=== PATIENT | female | born 1950 | race Caucasian/White ===

== ENCOUNTER 2023-02-16 09:28 | Outpatient (OUT) | payer MEDICARE, SELFPAY ==
--- NOTE | 2023-02-16 10:11 | XR_ITS ---
[address] [address] Patient Name: CHEY RON MRN: [facility]:[id number] date: 1950 Sex: F Assigned Patient Location: LAB Current Patient Location: LAB Accession/Order Number: [id number] Exam Date: 02/16/2023 10:16 Report Date: 02/16/2023 11:07 At the request of: SHAIKH MALGORZATA Procedure: XR lumbar spine 2-3V EXAM: XR lumbar spine 2-3V HISTORY: Low Back Pain M54.50 COMPARISON: None. TECHNIQUE: 3 views Findings/impression: Status post posterior fusion of L3-L5 with disc spacers. Intact hardware. Maintained vertebral body heights. Disc disease of L2-L3. No acute fracture or subluxation. Nonobstructive bowel gas pattern. Electronically authenticated by: TRUONG PARIS Date: 02/16/2023 11:07
[2023-02-16 10:26] LABS: Basophils Absolute Auto 0.1 10^3/uL (0.0-0.1); Basophils Percent Auto 0.5 % (0.2-2.0); Eosinophils Absolute Auto 0.2 10^3/uL (0.0-0.7); Eosinophils Percent Auto 1.9 % (0.9-7.0); Hemoglobin 14.6 g/dL (12.0-16.0); Immature Granulocytes Abs Auto 0.08 10^3/uL (0.00-0.03); Immature Granulocytes Pct Auto 0.9 % (0.0-0.5); Lymphocytes Absolute Auto 3.3 10^3/uL (1.2-3.8); Lymphocytes Percent Auto 35.6 % (20.5-60.0); Mean Corpuscular Hemoglobin 30.4 pg (26.7-34.0); Mean Corpuscular Volume 89.6 fL (81.0-99.0); Monocytes Absolute Auto 0.5 10^3/uL (0.3-0.8); Monocytes Percent Auto 5.8 % (1.7-12.0); Neutrophils Absolute Auto 5.2 10^3/uL (1.4-6.5); Neutrophils Percent Auto 55.3 % (43.0-75.0); Platelet Count 225 10^3/uL (150-450); Red Cell Distribution Width 14.3 % (11.0-15.0); White Blood Count 9.3 10^3/uL (4.0-11.0)
[2023-02-16 10:32] LABS: Creatinine Urine Random 106.85 mg/dL (20.00-300.00); Total Protein Urine Random 106.4 mg/dL (<=11.9)
[2023-02-16 10:35] LABS: Estimated Average Glucose 140 mg/dL; Glycohemoglobin A1C 6.5 % (4.5-6.2)
[2023-02-16 10:49] LABS: Alanine Aminotransferase 34 U/L (14-59); Albumin Globulin Ratio 1.1; Albumin Level 3.3 g/dL (3.4-5.0); Alkaline Phosphatase 100 U/L (46-116); Anion Gap 14.7; Aspartate Amino Transferase 15 U/L (15-37); BUN Creatinine Ratio 27.2; Bilirubin Total 0.3 mg/dL (0.2-1.0); Calcium 9.5 mg/dL (8.5-10.1); Carbon Dioxide 24.1 mmol/L (21.0-32.0); Chloride 106 mmol/L (98-107); Cholesterol 169 mg/dL (<=200); Estimated GFR (African America >60 (>=60); Estimated GFR (Non-African Ame >60 (>=60); Globulin 3.1 g/dL; Glucose 189 mg/dL (74-106); HDL Cholesterol 56 mg/dL (40-60); LDL Cholesterol Calculated 87.8 mg/dL; Potassium 3.8 mmol/L (3.5-5.1); Sodium 141 mmol/L (136-145); Total Protein 6.4 g/dL (6.4-8.2); Triglycerides 126 mg/dL (<=150); VLDL CHOLESTEROL 25.2 mg/dL
[2023-02-16 11:46] LABS: Bilirubin Urine NEGATIVE (NEGATIVE); Blood Urine TRACE-I (NEGATIVE); Clarity Urine CLEAR (CLEAR); Color Urine LT. YELLOW (YELLOW); Glucose Urine UA NEGATIVE (NEGATIVE); Ketones Urine NEGATIVE (NEGATIVE); Leukocyte Esterase Urine TRACE (NEGATIVE); Nitrite Urine POSITIVE (NEGATIVE); Protein Urine 100 mg/dL (NEG/TRACE); Specific Gravity Urine 1.025 (1.005-1.025); Urobilinogen Urine 0.2 EU/dL (0.2-1.0)
[2023-02-16 12:19] LABS: Bacteria Urine LARGE #/HPF (NONE SEEN); Mucus Urine NONE SEEN (NONE SEEN); RBC Urine 0-2 #/HPF (0-2)
[2023-02-16 12:20] LABS: Cast Seen? NONE SEEN #/LPF (NONE SEEN); Crystals Seen? None Seen #/HPF (None Seen); Renal Epithelial Cells Urine RARE #/LPF (NONE SEEN); Squamous Epithelial Cell Urine FEW #/LPF (NONE/RARE); Transitional Epi Cells Urine FEW #/LPF (NONE SEEN)
[2023-02-17 05:07] LABS: Transferrin 304 mg/dL (192-364)
== END 2023-02-16 09:29 ==
LOC: LAB 09:35
PROVIDERS: PCP Internal Medicine; Visit Provider Internal Medicine
DX: E53.8 Deficiency of other specified B group vitamins (principal); E78.5 Hyperlipidemia, unspecified; D50.9 Iron deficiency anemia, unspecified; E11.43 Type 2 diabetes mellitus with diabetic autonomic (poly)neuropathy; Z79.4 Long term (current) use of insulin; E11.22 Type 2 diabetes mellitus with diabetic chronic kidney disease; N18.30 Chronic kidney disease, stage 3 unspecified; I12.9 Hypertensive chronic kidney disease with stage 1 through stage 4 chronic kidney disease, or unspecified chronic kidney disease; M54.50 Low back pain, unspecified; Z98.1 Arthrodesis status; M51.9 Unspecified thoracic, thoracolumbar and lumbosacral intervertebral disc disorder
CPT/HCPCS: 36415; 72100; 80053; 80061; 81001; 82570; 82607; 82728; 83036; 83540; 83550; 84156; 84466; 85025

== ENCOUNTER 2023-08-12 12:01 | Outpatient (OUT) | payer MEDICARE, MEDICAID, SELFPAY ==
[2023-08-12 12:30] LABS: Basophils Absolute Auto 0.1 10^3/uL (0.0-0.1); Basophils Percent Auto 0.5 % (0.2-2.0); Eosinophils Absolute Auto 0.3 10^3/uL (0.0-0.7); Hematocrit 44.7 % (36.0-48.0); Hemoglobin 14.3 g/dL (12.0-16.0); Immature Granulocytes Abs Auto 0.13 10^3/uL (0.00-0.03); Immature Granulocytes Pct Auto 1.1 % (0.0-0.5); Lymphocytes Percent Auto 32.7 % (20.5-60.0); Mean Corpuscular Hemoglobin 29.4 pg (26.7-34.0); Mean Corpuscular Volume 91.8 fL (81.0-99.0); Mean Platelet Volume 8.4 fL (9.5-13.5); Monocytes Absolute Auto 0.8 10^3/uL (0.3-0.8); Monocytes Percent Auto 6.1 % (1.7-12.0); Neutrophils Absolute Auto 7.1 10^3/uL (1.4-6.5); Neutrophils Percent Auto 57.6 % (43.0-75.0); Platelet Count 256 10^3/uL (150-450); Red Blood Count 4.87 10^6/uL (4.20-5.40); Red Cell Distribution Width 15.9 % (11.0-15.0); White Blood Count 12.3 10^3/uL (4.0-11.0)
[2023-08-12 12:56] LABS: Creatinine Urine Random 173.17 mg/dL (20.00-300.00); Protein Creatinine Ratio Urine 0.52
[2023-08-12 13:00] LABS: Estimated Average Glucose 180 mg/dL; Glycohemoglobin A1C 7.9 % (4.5-6.2)
[2023-08-12 13:04] LABS: Chol HDL Ratio 5.7; Cholesterol 255 mg/dL (<=200); HDL Cholesterol 45 mg/dL (40-60); Triglycerides 242 mg/dL (<=150); VLDL CHOLESTEROL 48.4 mg/dL
== END 2023-08-12 12:02 | disposition home or self-care (01) ==
PROVIDERS: PCP Internal Medicine; Visit Provider Internal Medicine
DX: E11.22 Type 2 diabetes mellitus with diabetic chronic kidney disease (principal); E78.5 Hyperlipidemia, unspecified
CPT/HCPCS: 36415; 80061; 82570; 83036; 84156; 85025

== ENCOUNTER 2023-12-15 10:18 | Outpatient (OUT) | payer MEDICARE, MEDICAID, SELFPAY ==
[2023-12-15 12:27] LABS: Estimated Average Glucose 197 mg/dL; Glycohemoglobin A1C 8.5 % (4.5-6.2)
[2023-12-15 12:37] LABS: Chol HDL Ratio 2.5; Cholesterol 135 mg/dL (<=200); HDL Cholesterol 53 mg/dL (40-60); Triglycerides 193 mg/dL (<=150); VLDL CHOLESTEROL 38.6 mg/dL
== END 2023-12-15 10:19 | disposition home or self-care (01) ==
PROVIDERS: PCP Internal Medicine; Visit Provider Internal Medicine
DX: Z00.00 Encounter for general adult medical examination without abnormal findings (principal); E11.22 Type 2 diabetes mellitus with diabetic chronic kidney disease; N18.31 Chronic kidney disease, stage 3a; Z79.4 Long term (current) use of insulin; E78.2 Mixed hyperlipidemia
CPT/HCPCS: 36415; 80061; 83036

== ENCOUNTER 2024-03-08 10:55 | Outpatient (OUT) | payer MEDICARE, MEDICAID, SELFPAY ==
--- NOTE | 2024-03-08 | MM_ITS ---
Patient Name: CHEY RON MR#: [id number] : 1950 Exam Date: 03/08/2024 Ordering Doctor: Shaikh Chaparrita Sparks . RADIOLOGY REPORT PROCEDURE: MM TOMOSYNTHESIS SCREENING BI COMPARISON: None. INDICATIONS: Screening mammogram for breast cancer Calculator Name NCI Breast Cancer Risk Assessment Tool 5 Year Breast Cancer Risk Not Reported. Lifetime Breast Cancer Risk Not Reported. Personal Breast Cancer No Personal Ovarian Cancer No Treatments None Family Cancers None LOCATION: [facility] BREAST COMPOSITION: There are scattered areas of fibroglandular density. FINDINGS: DIAGNOSTIC CATEGORY 2--BENIGN FINDING. NO CHANGE FROM COMPARISON. Scattered benign-appearing nodules are present. Scattered benign-appearing calcifications are present. Scattered benign-appearing lymph nodes are present. RIGHT BREAST: No significant suspicious finding. LEFT BREAST: No significant suspicious finding. RECOMMENDATIONS: ROUTINE MAMMOGRAM AND CLINICAL EVALUATION IN 12 MONTHS. PLEASE NOTE: A NORMAL MAMMOGRAM DOES NOT EXCLUDE THE POSSIBILITY OF BREAST CANCER. A CLINICALLY SUSPICIOUS PALPABLE LUMP SHOULD BE BIOPSIED. Dictated by: Shravan Vilchis MD on 03/08/2024 at 16:09 Approved by: Shravan Vilchis MD on 03/08/2024 at 16:10
--- OUTSIDE RECORDS SUMMARY | 2024-03-08 11:11 | XMS_ITS ---
Patient Summarization (C-CDA 2.1 CCD) Created on: March 08, 2024 ROBINA RON : 1950 Sex: Female Author Organization Sample organization Care Team Providers Care Supervisor Agricultural Education Name Role Phone Lawanda Alvarez Unavailable Shaikh Sparks MD Primary Care Provider [phone] Demetrio Joseph Primary Care Provider [phone] Hood Benavidez Unavailable [phone] Shaikh Sparks MD Primary Care Provider [phone] MD Hood Benavidez Attending Provider MD Amy Sparks Primary Care Provider FAWWAD, WATERS H Consulting Unavailable FAWWAD, WTAERS H Primary Care Unavailable FAWWAD, WATERS H Attending Unavailable FAWWAD, WATERS H Admitting Unavailable FAWWAD, WATERS H Consulting Unavailable FAWWAD, WATERS H Primary Care Unavailable FAWWAD, WATERS H Attending Unavailable FAWWAD, WATERS H Admitting Unavailable FAWWAD, WATERS H Primary Care Unavailable MIKA, DR LJ Persaud Consulting Unavailabl cristy BRENNAN, DR LJ Persaud Attending Unavailabl e MIKA, DR LJ Persaud Admitting Unavailabl e FAWWAD, WATERS H Consulting Unavailable FAWWAD, WATERS H Primary Care Unavailable FAWWAD, WATERS H Attending Unavailable FAWWAD, WATERS H Admitting Unavailable FAWWAD, WATERS H Consulting Unavailable FAWWAD, WATERS H Primary Care Unavailable FAWWAD, WATERS H Attending Unavailable FAWWAD, WATERS H Admitting Unavailable ALGHOTHANI, MOHAMAD Consulting Unavailable FAWWAD, WATERS H Primary Care Unavailable ALGHOTHANI, MOHAMAD Attending Unavailable ALGHOTHANI, MOHAMAD Admitting Unavailable MIKA, DR LJ Persaud Consulting UnavailDEMETRIO Goodwin Primary Care Unavailable MIKA, DR LJ Persaud Attending Unavailabl e MIKA, DR JL Persaud Admitting Unavailabl e PATRICE GRAYSON Consulting Unavailable NADERER, DR CATHERINE Hartman Consulting Unavailable NADERER, DR CATHERINE Hartman Attending Unavailable NADERER, DR CATHERINE Hartman Admitting Unavailable FAWWAD, WATERS H Primary Care Unavailable ZHAO OLIVER Consulting Unavailable CIARRA COSTELLO Consulting Unavailable NGOZI NELSON Consulting Unavailable AA, AA Consulting Unavailable FAWWAD, WATERS H Primary Care Unavailable OLEXA, LAWANDA Attending Unavailable OLEXA, LAWANDA Admitting Unavailable Zieber, DR Owen Consulting Unavailable FAWWAD, WATERS H Primary Care Unavailable ALGHOTHANI, MOHAMAD Attending Unavailable ALGHOTHANI, MOHAMAD Admitting Unavailable ALGHOTHANI, MOHAMAD Consulting Unavailable FAWWAD, WATERS H Consulting Unavailable FAWWAD, WATERS H Primary Care Unavailable FAWWAD, WATERS H Attending Unavailable FAWWAD, WATERS H Admitting Unavailable ALGHOTHANI, MOHAMAD Consulting Unavailable FAWWAD, WATERS H Primary Care Unavailable ALGHOTHANI, MOHAMAD Attending Unavailable ALGHOTHANI, MOHAMAD Admitting Unavailable FAWWAD, WATERS H Consulting Unavailable FAWWAD, WATERS H Primary Care Unavailable FAWWAD, WATERS H Attending Unavailable FAWWAD, WATERS H Admitting Unavailable FAWWAD, WATERS Attending Unavailable FAWWAD, WATERS Attending Unavailable FAWWAD, WATERS Primary Care Physician [phone] Oreileen Shante X Attending Unavailable Orzech Shante X Attending Unavailable FAWWAD, WATERS Referring Unavailable Orzech, Shante X Admitting Unavailable Orzech, Shante X Attending Unavailable Allergies Allergy Classification Reported Allergen(s) Allergy Type Date of Onset Reaction(s) Facility Acetaminophen / oxyCODONE (1 source) Acetaminophen / oxyCODONE; Translations: [acetaminophen-ox ycodone] Drug Allergy Sleep terror disorder (disorder) [facility] Anticholinergics (1 source) tiotropium; Translations: [tiotropium] Drug Allergy Pharyngeal swelling (finding), Tongue swelling (finding) [facility] Opioid Agonists (1 source) oxyCODONE; Translations: [oxycodone] Drug Allergy Sleep terror disorder (disorder) [facility] (10 sources) Acetaminophen / oxyCODONE; Translations: [acetaminophen-ox ycodone] Drug Allergy 6 Mental Status Change, Anaphylaxis, Sleep terror disorder (disorder) [facility] (4 sources) tiotropium; Translations: [tiotropium] Drug Allergy anaphylaxis, Pharyngeal swelling (finding), Tongue swelling (finding) [facility] (7 sources) Budesonide / formoterol Drug Allergy 2 Other: See Comments [facility] (7 sources) tiotropium Drug Allergy 6 Unknown [facility] (3 sources) oxyCODONE; Translations: [Oxycodone] Drug Allergy 9 Sleep terror disorder (disorder) [facility] (2 sources) Acetaminophen / oxyCODONE; Translations: [Percocet] Drug Allergy 5 [facility] Repository Encounters Encounter Date Encounter Type Care Provider Facility Start: 02-29-2024 End: 02-29-2024 ambulatory Shante X Orzech Facility:[facility] Start: 02-29-2024 End: 02-29-2024 Lab Drop off Shante X Orzech [facility] Start: 02-29-2024 End: 02-29-2024 ambulatory Shante X Orzech Facility:[facility] Start: 02-29-2024 End: 02-29-2024 Patient encounter procedure Shante X Orrosich [facility] Start: 01-04-2024 End: 01-04-2024 ambulatory SHAIKH CLARE Not Available Start: 08-17-2023 End: 08-17-2023 ambulatory SHAIKH CLARE Not Available Start: 06-22-2022 End: 06-23-2022 ambulatory SHAIKH Ivette JOSESarahiNJSaud Facility:[facility] Start: 05-12-2022 End: 05-12-2022 ambulatory Chair 15 Raj Work Phone: Hematology/Oncology Comment on above: Iron deficiency anem ia due to chronic blood loss (Primary Dx) Start: 05-07-2022 End: 05-07-2022 Patient encounter procedure MD Hood Benavidez Work Phone: [facility] Start: 05-06-2022 End: 05-06-2022 ambulatory Chair 14 Raj Work Phone: Hematology/Oncology Comment on above: Iron deficiency anem ia due to chronic blood loss (Primary Dx) Start: 04-28-2022 End: 04-28-2022 ambulatory Chair 14 Raj Work Phone: Hematology/Oncology Comment on above: Iron deficiency anem ia due to chronic blood loss (Primary Dx) Start: 04-22-2022 End: 04-22-2022 ambulatory Chair 13 Raj Work Phone: Hematology/Oncology Comment on above: Iron deficiency anem ia due to chronic blood loss (Primary Dx) Start: 04-15-2022 End: 04-15-2022 ambulatory Hood Benavidez Other [facility] Other Start: 04-15-2022 Telephone encounter Hood Obrien ck [facility] Start: 04-14-2022 Telephone encounter Christy jefferson RN Work Phone: Hematology/Oncology Comment on above: Critical Results (Gl ucose) Start: 04-14-2022 End: 04-14-2022 ambulatory Chair 15 Raj Work Phone: Hematology/Oncology Comment on above: Iron deficiency anem ia due to chronic blood loss (Primary Dx); Controlled type 2 diabetes mellitus without complication, 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) Start: 04-08-2022 End: 04-09-2022 ambulatory WATERS Ivette CLARE Facility:[facility] Start: 07-25-2022 Telephone encounter Christi lópez MD [facility] Comment on above: Appointment Confirma tion Start: 02-06-2022 End: 02-07-2022 ambulatory EDD WADE Facility:[facility] Start: 01-23-2022 End: 01-24-2022 ambulatory SHAIKH Ivette SPARKS Facility:[facility] Start: 12-22-2021 End: 12-23-[address] Brayden Keller Facility:[facility] Start: 12-20-2021 End: 12-21-[address] CATHERINE SANCHEZ Facility:[facility] Start: 12-15-2021 End: 12-16-2021 ambulatory EDD WADE Facility:[facility] Start: 12-04-2021 End: 12-05-2021 ambulatory SHAIKH Ivette SPARKS Facility:[facility] Start: 11-28-2021 End: 11-29-2021 ambulatory SHAIKH Ivette SPARKS Facility:[facility] Start: 10-22-2021 ambulatory SHAIKH Ivette SPARKS Facilit y:[facility] Start: 10-14-2021 End: 10-14-2021 ambulatory Lawanda Alvarez Other [facility] Other Start: 10-14-2021 Office outpatient ne w 30 minutes Lawanda Alvarez [facility] Start: 09-10-2021 End: 09-11-2021 ambulatory SHAIKH Ivette SPARKS Facility:[facility] Start: 08-16-2021 Encounter for preprocedural laboratory examination DR LJ BRENNAN [facility] Start: 08-13-2021 End: 08-13-[address] LJ BRENNAN Facility:[facility] Start: 08-12-2021 End: 08-13-2021 ambulatory SHAIKH Ivette SPARKS Facility:[facility] Start: 08-12-2021 End: 08-13-2021 Encounter for preprocedural laboratory examination SHAIKH Ivette SPARKS Facility:[facility] Goals Date Patient Goal Desired Activity /State Medications Current Medications Medication Drug Class(es) Dates Sig (Normalized) Sig (Original) Albuterol (10 sources) beta2-Adrenergic Agonist Start: 01-24-2019 take 1 puff(s) by inhalation every four to six hours Albuterol Sulfate Active 2 PUFF INHALATION EVERY 4-6 HOURS January 24, 2019 12:00am take 2 puff(s) by in halation every six hours as needed Ventolin HFA 108 (90 Base) MCG/ACT 2 puffs as needed Inhalation every 6 hrs Active albuterol sulfat e (VENTOLIN HFA INHALATION) Inhale as instructed as needed. 0 Active Comment on above: Inhale as instructed as needed. apixaban 5 mg oral tablet (4 sources) Factor Xa Inhibitor Start: 09-26-2018 End: 05-12-2022 take 5 mg by mouth twice daily Apixaban Discontinued 5 MG PO Twice daily 0 September 28, 2018 10:19am May 12, 2022 7:57am baclofen 20 mg oral tablet (2 sources) gamma-Aminobutyric Acid-ergic Agonist Start: 05-01-2019 End: 05-12-2022 take 20 mg by mouth three times daily Baclofen Discontinued 20 MG PO Three times daily May 01, 2019 12:00am May 12, 2022 7:57am Start: 01-24-2019 End: 01-26-2019 take 20 mg by mouth three times daily Baclofen Discontinued 20 MG PO Three times daily January 24, 2019 12:00am January 26, 2019 1:07pm carvedilol 6.25 mg oral tablet (4 sources) alpha-Adrenergic Manuela, beta-Adrenergic Manuela Start: 09-26-2018 End: 05-12-2022 take 6.25 mg by mouth twice daily Carvedilol Discontinued 6.25 MG PO Twice daily 0 September 28, 2018 10:19am May 12, 2022 8:02am 24 hr dilTIAZem hydrochloride 240 mg extended release oral capsule (12 sources) Calcium Channel Manuela Start: 05-12-2022 take 240 mg by mouth once daily Diltiazem Hcl Active 240 MG PO Daily May 12, 2022 12:00am Start: 03-14-2019 End: 05-12-2022 take 120 mg by mouth once daily Diltiazem Hcl Disconti nued 120 MG PO Daily March 14, 2019 12:00am May 12, 2022 7:58am Start: 09-26-2018 End: 01-26-2019 take 120 mg by mouth once daily Diltiazem Hcl Disconti nued 120 MG PO Daily September 26, 2018 1:00am January 26, 2019 1:07pm take 1 capsule by [facility] once daily, then take 1 capsule by mouth every twenty-four hours dilTIAZem CD (CARDIZEM CD) 240 mg 24 hr capsule Take 240 mg by mouth once daily. 0 Active Comment on above: Take 240 mg by mouth once daily. 0.5 ml dulaglutide 3 mg/ml auto-injector (6 sources) GLP-1 Receptor Agonist Start: 02-29-2024 Trulicity Pen 1.5 mg/0.5 mL subcutaneous solution 6 mL, 0 Refill(s), INJECT 1.5 MG UNDER THE SKIN 1 (ONE) TIME PER WEEK, Refills(s) 0 Start Date: 02/29/24 Status: Ordered Start: 01-26-2019 inject 1.5 mg by sub cutaneous injection every week Dulaglutide Active 1.5 MG SUBCUT every week January 26, 2019 12:00am [place] Start: 09-26-2018 End: 09-28-2018 Dulaglutide (Trulicity) 1.5 mg/0.5 mL pen injector Discontinued 1.5 MG SUBCUT Q7D September 26, 2018 1:00am September 28, 2018 10:16am Trulicity (dulag lutide injection pen) 1.5mg/0.5 ml 1.5mg / 0.5 ml one dose inject weekly Active DULoxetine 20 mg delayed release oral capsule (3 sources) Serotonin and Norepinephrine Reuptake Inhibitor Start: 01-24-2019 take 20 mg by mouth twice daily Duloxetine Active 20 MG PO Twice daily January 24, 2019 12:00am ferrous sulfate 324 mg delayed release oral tablet (8 sources) Start: 05-12-2022 take 324 mg by mouth once daily Ferrous Sulfate Active 324 MG PO Daily May 12, 2022 12:00am take 324 mg by mouth once daily at breakfast ferrous sulfate EC 324 mg (65 mg iron) TbEC Take 324 mg by mouth daily with breakfast. 0 Active Comment on above: Take 324 mg by mouth daily with breakfast. Fluticasone-Umeclid in-Vilanter (1 source) Anticholinergic, Corticosteroid, beta2-Adrenergic Agonist Start: take 1 puff(s) by inhalation once daily Fluticasone-Umeclid in-Vilanter Active 1 PUFF INHALATION Daily September 26, 2018 1:00am gabapentin 300 mg oral capsule (4 sources) Anti-epileptic Agent Start: 9 take 300 mg by mouth twice daily Gabapentin Active 300 MG PO Twice daily January 24, 2019 12:00am Start: 09-26-2018 End: 09-28-2018 Gabapentin Discontinued Tung rojas 2018 1:00am September 28, 2018 10:17am take 1 capsule by mo [facility] every twenty-four hours Gabapentin 300 MG 1 capsule Orally Once a day Active Iron (2 sources) take 1 tablet by mouth once daily Iron 240 (27 Fe) MG 1 tablet Orally Once a day Active lovastatin 20 mg oral tablet (10 sources) HMG-CoA Reductase Inhibitor Start: 9 take 20 mg by mouth once daily at bedtime Lovastatin Active 20 MG PO Daily at bedtime September 26, 2018 1:00am Comment on above: Take 20 mg by mouth daily at bedtime. meclizine hydrochloride 25 mg oral tablet (3 sources) Antiemetic Start: 9 take 25 mg by mouth twice daily Meclizine Active 25 MG PO Twice daily May 01, 2019 12:00am take 1 tablet by mouth every eig ht hours Meclizine HCl 25 MG 1 tablet as needed Orally every 8 hours Not-Taking metFORMIN hydrochloride 1000 mg oral tablet (10 sources) Biguanide Start: 09-26-2018 take 1000 mg by mouth twice daily Metformin Active 1000 MG PO Twice daily September 26, 2018 1:00am take 1 tablet by mouth twice katharine ly metFORMIN ER (FORTAMET) 1,000 mg 24 hr tablet Take 1,000 mg by mouth twice daily. 0 Active Comment on above: [facility] 1,[facility] daily. oxybutynin chloride 5 mg oral tablet (12 sources) Cholinergic Muscarinic Antagonist Start: 03-11-2019 take 1 tablet by mouth twice daily as needed oxybutynin 5 mg Tab 5 mg = 1 tab(s), Oral, BID, PRN for urinary discomfort, # 30 tab(s) Start Date: 03/11/19 Status: Ordered take 1 tablet by mouth three emmy es daily oxybutynin (DITROPAN) 5 mg tablet Take 5 mg by mouth three times daily. 0 Active Comment on above: Take 5 mg by mouth t hree times daily. polysaccharide iron complex 391 mg oral capsule (2 sources) Start: End: take 1 capsule by mouth once daily Polysaccharide Iron Complex (Pro Fe) 180 mg iron Capsule Discontinued 180 MG PO Daily January 24, 2019 12:00am May 12, 2022 8:00am Start: 09-28-2018 End: 01-26-2019 take 50 mg by mouth once daily Polysaccharide Iron Complex Discontinued 50 MG PO Daily September 28, 2018 1:00am January 26, 2019 1:04pm potassium chloride 10 meq extended release oral tablet (3 sources) Start: 01-24-2019 Potassium Chlo ride (Klor-Con 10) 10 mEq Tablet Extended Release Active 20 MEQ PO Daily January 24, 2019 12:00am take 1 tablet by ruy th every twenty-four hours Potassium Chloride ER 20 MEQ 1 tablet with food Orally Once a day Active rOPINIRole 0.5 mg oral tablet (3 sources) Nonergot Dopamine Agonist Start: 01-24-2019 take 0.5 mg by mouth once daily at bedtime Ropinirole Active 0.5 MG PO Daily at bedtime January 24, 2019 12:00am Trelegy Ellipta 100 mcg (2 sources) take 1 puff(s) by inhalation once daily Trelegy Ellipta 100 mcg 1 puff Inhalation Once a day Active trospium chloride 20 mg oral tablet (2 sources) Cholinergic Muscarinic Antagonist Start: 02-29-2024 take 1 tablet by mouth twice daily trospium 20 mg oral tablet 20 mg = 1 tab(s), Oral, BID, # 60 tab(s), Refills(s) 2, Pharmacy: [facility]/pharmacy #[id number], 155, cm, 02/29/24 10:38:00 EDT, Height/Length Dosing, 66.5, kg, 02/29/24 10:38:00 EDT, Weight Dosing Start Date: 02/29/24 Status: Ordered vitamin b12 1 mg oral tablet (8 sources) Vitamin B12 Start: 05-12-2022 take 1 tablet by mouth once daily Cyanocobalamin (Vitamin B-12) (Vitamin B-12) 1,000 mcg tablet Active 1000 MCG PO Daily May 12, 2022 12:00am take 1 tablet by mouth once alejandro y cyanocobalamin (VITAMIN B-12) 1,000 mcg tab Take 1,000 mcg by mouth once daily. 0 Active Comment on above: Take 1,000 mcg by [facility] once daily. Completed/Discontinued Medications Medication Drug Class(es) Dates Sig (Normalized) Sig (Original) atorvastatin 20 mg oral tablet (2 sources) HMG-CoA Reductase Inhibitor Start: 02-29-2024 atorvastatin 20 mg Tab 90 EA, 0 Refill(s), TAKE 1 TABLET BY MOUTH EVERY DAY IN THE MORNING, Refills(s) 0 Start Date: 02/29/24 Status: Ordered dapagliflozin 10 mg oral tablet (2 sources) Sodium-Glucose Cotransporter 2 Inhibitor Start: 02-29-2024 Farxiga 10 mg oral tablet 30 EA, 0 Refill(s), TAKE 1 TABLET BY MOUTH EVERY DAY, Refills(s) 0 Start Date: 02/29/24 Status: Ordered DilTIAZem (Eqv-Cardizem CD) 240 mg/24 hours oral capsule, extended release (2 sources) Start: 02-29-2024 DilTIAZem (Eqv-Cardizem CD) 240 mg/24 hours oral capsule, extended release 90 EA, 0 Refill(s), TAKE 1 CAPSULE BY MOUTH EVERY DAY, Refills(s) 0 Start Date: 02/29/24 Status: Ordered glipiZIDE 5 mg oral tablet (2 sources) Sulfonylurea Start: 02-29-2024 take 1 tablet by mouth before mealtime glipiZIDE 5 mg Tab 180 EA, 0 Refill(s), TAKE 1 TABLET (5 MG) BY MOUTH IN THE MORNING AND 1 TABLET (5 MG) IN THE EVENING. TAKE BEFORE MEALS., Refills(s) 0 Start Date: 02/29/24 Status: Ordered 3 ml insulin aspart protamine, human 70 unt/ml / insulin aspart, human 30 unt/ml pen injector (1 source) Insulin Analog Start: 09-26-2018 End: 09-28-2018 Insulin Asp Prt-Insulin Aspart (Novolog Mix 70-30flexpen U-100) 100 unit/mL (70-30) insulin pen Discontinued September 26, 2018 1:00am September 28, 2018 10:17am 3 ml insulin isophane, human 100 unt/ml pen injector (2 sources) Start: 09-28-2018 End: 01-25-2019 inject 36 [IU] by subcutaneous injection once daily before breakfast Insulin Nph Isoph U-100 Human Discontinued 36 UNIT SUBCUT Daily before breakfast September 28, 2018 1:00am January 25, 2019 10:05am Start: 09-28-2018 End: 01-25-2019 inject 36 [IU] by subcutaneous injection once in the morning, then inject 30 [IU] by subcutaneous injection at bedtime Insulin Nph Isoph U-100 Human (Humulin N Nph Insulin Kwikpen) 100 unit/mL (3 mL) Insulin Pen Discontinued 30 UNIT SUBCUT 3X/Day with lunch,supper & HS September 28, 2018 1:00am January 25, 2019 10:06am Take 36 units in the AM and 30 units with lunch, Dinner and at HS 3 ml insulin isophane, human 70 unt/ml / insulin, regular, human 30 unt/ml pen injector (17 sources) Insulin Start: 02-29-2024 inject 15 [IU] by subcutaneous injection before mealtime HumuLIN 70/30 KwikPen 70 units-30 units/mL subcutaneous suspension 30 mL, 0 Refill(s), INJECT 15 UNITS UNDER THE SKIN IN THE MORNING AND 15 UNITS IN THE EVENING. INJECT BEFORE MEALS., Refills(s) 0 Start Date: 02/29/24 Status: Ordered Start: 05-03-2019 End: 05-04-2019 inject 15 [IU] by subcutaneous injection once daily at bedtime Insulin Nph And Regular Human Discontinued 15 UNIT SUBCUT Daily at bedtime May 03, 2019 12:00am May 04, 2019 12:57pm Start: 05-01-2019 inject 15 [IU] by renee bcutaneous injection once daily before lunch Insulin Nph And Regular Human Active 15 UNITS SUBCUT Daily before lunch May 01, 2019 6:42pm Start: 03-16-2019 End: 05-01-2019 inject 30 [IU] by subcutaneous injection once daily at lunch Insulin Nph And Regular Human Discontinued 30 UNITS SUBCUT Daily with lunch 0 March 16, 2019 2:34pm May 01, 2019 6:42pm Start: 03-14-2019 End: 03-14-2019 inject 40 [IU] by subcutaneous injection once before mealtime Insulin Nph And Regular Human Discontinued 40 UNITS SUBCUT 3x/Day before meals March 14, 2019 12:03pm March 14, 2019 6:29pm Start: 03-04-2019 End: 03-16-2019 Insulin Nph And Regular Kristine n (Novolin 70/30 U-100 Insulin) 100 unit/mL (70-30) suspension Discontinued 40 UNITS SUBCUT Daily with breakfast March 14, 2019 12:00am March 16, 2019 2:34pm Start: 03-04-2019 End: 03-14-2019 inject 40 [IU] by subcutaneous injection before lunch Insulin Nph And Regular Human Discontinued 40 UNITS SUBCUT Before lunch and supper 0 March 04, 2019 11:28am March 14, 2019 12:04pm Start: 01-25-2019 End: 03-04-2019 inject 36 [IU] by subcutaneous injection once daily before breakfast Insulin Nph And Regular Human Discontinued 36 UNITS SUBCUT Daily before breakfast January 25, 2019 12:00am March 04, 2019 3:25pm Start: 01-25-2019 End: 03-04-2019 inject 30 [IU] by subcutaneous injection before lunch Insulin Nph And Regular Human Discontinued 30 UNITS SUBCUT Before lunch and supper January 25, 2019 12:00am March 04, 2019 3:25pm insulin NPH hum/reg insulin hm (HUMULIN 70/30 U-100 KWIKPEN SUBCUTANEOUS) (6 sources) insulin NPH hum/ reg insulin hm (HUMULIN 70/30 U-100 KWIKPEN SUBCUTANEOUS) Inject subcutaneously with meals and at bedtime. S/S coverage AC/HS per pt 0 Active Comment on above: Inject subcutaneousl y with meals and at bedtime. S/S coverage AC/HS per pt Insulin NPH Isophane & Regular (70-30) 100 UNIT/ML (2 sources) Insulin NPH Isop hane & Regular (70-30) 100 UNIT/ML 15 units Subcutaneous three times daily Not-Taking lisinopril 10 mg oral tablet (14 sources) Angiotensin Converting Enzyme Inhibitor Start: 02-29-2024 lisinopril 10 mg Tab 90 EA, 0 Refill(s), TAKE 1 TABLET BY MOUTH EVERY DAY, Refills(s) 0 Start Date: 02/29/24 Status: Ordered Start: 05-12-2022 take 10 mg by mouth once daily Lisinopril Active 10 MG PO Daily May 12, 2022 12:00am Start: 01-26-2019 End: 05-12-2022 take 5 mg by mouth once daily Lisinopril Discontinued 5 MG PO Daily January 26, 2019 12:00am May 12, 2022 7:59am Start: 01-24-2019 End: 01-26-2019 take 10 mg by mouth once daily Lisinopril Discontinued 10 MG PO Daily January 24, 2019 12:00am January 26, 2019 1:07pm Comment on above: Take 10 mg by mouth once daily. metoprolol tartrate 50 mg oral tablet (10 sources) beta-Adrenergic Manuela Start: 02-29-2024 Metoprolol tartrate 50 mg Tab 180 EA, 0 Refill(s), TAKE 1 TABLET BY MOUTH EVERY 12 HOURS, Refills(s) 0 Start Date: 02/29/24 Status: Ordered Start: 05-12-2022 take 50 mg by mouth twice alejandro y Metoprolol Tartrate Active 50 MG PO Twice daily May 12, 2022 12:00am take 1 tablet by ruy th twice daily metoprolol tartrate, short acting, (LOPRESSOR) 50 mg tablet Take 50 mg by mouth twice daily. 0 Active Comment on above: Take 50 mg by mouth twice daily. omeprazole 40 mg delayed release oral capsule (1 source) Proton Pump Inhibitor Start: 9 End: 9 take 40 mg by mouth once daily Omeprazole Discontinued 40 MG PO Daily January 26, 2019 12:00am May 03, 2019 3:37pm pantoprazole 40 mg delayed release oral tablet (13 sources) Proton Pump Inhibitor Start: Pantoprazole [address] Tab 90 EA, 0 Refill(s), TAKE 1 TABLET BY MOUTH EVERY DAY, Refills(s) 0 Start Date: 02/29/24 Status: Ordered Start: 05-01-2019 take 40 mg by mouth once daily Pantoprazole Active 40 MG PO Daily May 01, 2019 12:00am Start: 09-26-2018 End: 01-26-2019 take 40 mg by mouth once daily Pantoprazole (Protonix) [address] For Susp In Packet Discontinued 40 MG PO Daily September 26, 2018 1:00am January 26, 2019 1:04pm Comment on above: Take 40 mg by mouth once daily. traZODone hydrochloride 50 mg oral tablet (13 sources) Serotonin Reuptake Inhibitor Start: 02-29-2024 traZODONE 50 mg Tab 90 EA, 0 Refill(s), TAKE 1 TABLET BY MOUTH EVERYDAY AT BEDTIME, Refills(s) 0 Start Date: 02/29/24 Status: Ordered Start: 03-14-2019 take 50 mg by mouth at bedtime Trazodone Active 50 MG PO Bedtime March 14, 2019 12:00am Start: 01-24-2019 End: 01-26-2019 take 50 mg by mouth once daily Trazodone Discontinued 50 MG PO Daily January 24, 2019 12:00am January 26, 2019 1:07pm Comment on above: Take 50 mg by mouth daily at bedtime. Payers Date Payer Category Payer Medicaid MEDICAID [facility] MEDICAID [id number] 2022-Present [phone] [address] [place] [address] Medicaid [id number] 2022 Medicaid MEDICAID [facility] MEDICAID [id number] 2022-Present [phone] [address] [place] [address] Medicaid [id number] 2021 Medicare UHC MEDICARE UHC DUAL COMPLETE HMO SNP [id number] 2021-Present [phone] [address] [place] [address] Medicare [id number] 2021 Medicare UHC MEDICARE UHC DUAL COMPLETE HMO SNP [id number] 2021-Present [phone] [address] [place] [address] Medicare [id number] 1959 Medicaid [id number] 1959 Medicare [id number] 1959 Medicare [id number] 1959 Private Health Insurance [facility] [id number] 1950 Unknown [id number] 2.16.840.1.375610.3.579.2.5 93 1950 Unknown [id number] 2.16.840.1.719224.3.579.2.5 93 1950 Unknown [id number] 2.16.840.1.079933.3.579.2.5 93 1950 Unknown [id number] 2.16.840.1.364511.3.579.2.5 93 1950 Unknown [id number] 2.840.1.737981.3.579.2.5 93 1950 Unknown [id number] 2.16.840.1.178975.3.579.2.5 93 1950 Unknown [id number] 2.16.840.1.819827.3.579.2.5 93 1950 Unknown [id number] 2.16.840.1.858522.3.579.2.5 93 1950 Unknown [id number] 2.16.840.1.800750.3.579.2.5 93 1950 Unknown [id number] 2.16.840.1.115970.3.579.2.5 93 1950 Unknown [id number] 2.16.840.1.598544.3.579.2.5 93 1950 Unknown [id number] 2.16.840.1.349437.3.579.2.5 93 1950 Unknown [id number] 2.16.840.1.798137.3.579.2.5 93 1950 Unknown [id number] 2.16.840.1.303902.3.579.2.1 259 1950 Unknown [id number] 2.16.840.1.478685.3.579.2.1 259 1950 Unknown [id number] 2.16.840.1.525054.3.579.2.7 27 1950 Unknown [id number] 2.16.840.1.773379.3.579.2.7 27 1950 Unknown [id number] 2.16.840.1.174425.3.579.2.7 27 Medicare Medicare [id number] Private Health Insurance [employer] [id number] Self-pay Self Pay [id number] Plan of Treatment Date Care Activity Detail Author Start: 04-14-2025 DIABETES SCREEN DIABETES SCREEN [facility] Start: 04-11-2024 ambulatory Ambulatory Facility:[facility] Start: 05-14-2022 Influenza vaccination INFLUENZA (#1) [facility] Start: 05-12-[address] [facility] Work Phone: Start: 05-12-2022 Esophagogastroduodenoscopy DH EGD (Not Applicable) [facility] Start: 05-12-2022 End: 05-12-2022 Admission to same day surgery center Iron deficiency anemia [facility] Start: 09-13-2021 ADVANCE DIRECTIVE DISCUSSION ADVANCE DIRECTIVE DISCUSSION [facility] Start: 11-14-2015 BONE DENSITY BONE DENSITY [facility] Start: 11-14-1995 COLOGUARD (FIT-DNA) COLOGUARD (FIT-DNA) [facility] Start: 11-14-1995 Colonoscopy COLONOSCOPY [facility] Start: 11-14-1995 COLORECTAL CANCER SCREENING COLORECTAL CANCER SCREENING [facility] Start: 11-14-[address] COLONOGRAPHY [facility] Start: 11-14-1995 FECAL OCCULT BLOOD FECAL OCCULT BLOOD [facility] Start: 11-14-1995 LIPID SCREEN LIPID SCREEN [facility] Start: 11-14-1995 SIGMOIDOSCOPY SIGMOIDOSCOPY [facility] Start: 1990 Mammography MAMMOGRAM [facility] Start: 1969 SHINGRIX VACCINE (1 of 2) SHINGRIX VACCINE (1 of 2) [facility] Start: 1969 Urine microalbumin profile DTAP,TDAP,TD (1 - Tdap) [facility] Start: 1968 HEPATITIS C SCREENING HEPATITIS C SCREENING [facility] Start: 1962 Adult depression screening assessment DEPRESSION SCREENING [facility] Start: 1956 PNEUMOCOCCAL: 65+ (1 - PCV) PNEUMOCOCCAL: 65+ (1 - PCV) [facility] Start: 11-14-1955 COVID-19 VACCINE (#1) COVID-19 VACCINE (#1) [facility] Start: 05-16-1951 COVID-19 VACCINE (#1) COVID-19 VACCINE (#1) [facility] Glucose [Mass/volume ] in Serum or Plasma GLUCOSE, BLOOD (POC) Lab Routine Iron deficiency anemia due to chronic blood loss Controlled type 2 diabetes mellitus without complication, unspecified whether retirement insulin use (HCC) Ordered: 04/14/[address] [facility] Work Phone: Comment on above: Ordered: 04/14/2022 Patient Education Hiatal Hernia (DC) [facility] Work Phone: [facility] Problems Active Problems Problem Classification Problem Date Documented Da te Episodic/Chronic Acute and unspecified renal failure (2 sources) Injury of kidney; Translations: [Acute kidney failure, unspecified] 09-26-2018 Episodic Cardiac dysrhythmias (10 sources) Atrial fibrillation; Translations: [Unspecified atrial fibrillation] Onset: 2 05-12-2022 Chronic Chronic kidney disease (3 sources) Chronic kidney disease stage 3; Translations: [Stage 3 chronic kidney disease] 01-24-2019 Chronic Chronic obstructive pulmonary disease and bronchiectasis (2 sources) Chronic obstructive lung disease; Translations: [Chronic obstructive pulmonary disease, unspecified] Onset: 2 01-24-2019 Chronic Coagulation and hemorrhagic disorders (4 sources) Acquired coagulation factor deficiency; Translations: [Acquired coagulation factor deficiency] Onset: 0 01-24-2019 Chronic Congestive heart failure; nonhypertensive (1 source) Chronic diastolic (congestive) heart failure; Translations: [CHRONIC DIASTOLIC HEART FAILURE] Onset: 2 Chronic Deficiency and other anemia (14 sources) Iron deficiency anemia due to blood loss; Translations: [Iron deficiency anemia secondary to blood loss (chronic)] Onset: 2 Chronic Deficiency and other anemia (3 sources) Anemia due to chronic blood loss; Translations: [Iron deficiency anemia secondary to blood loss (chronic)] 02-23-2024 Chronic Deficiency and other anemia (1 source) Iron deficiency anemia secondary to blood loss (chronic) Onset: 2 Resolved: 2 Chronic Deficiency and other anemia (1 source) Iron deficiency anemia; Translations: [Iron deficiency anemia, unspecified] 05-12-2022 Episodic Deficiency and other anemia (6 sources) Iron deficiency anemia, unspecified; Translations: [Iron deficiency anemia, unspecified] Onset: 2 05-12-2022 Episodic Delirium, dementia, and amnestic and other cognitive disorders (1 source) Dementia; Translations: [Unspecified dementia without behavioral disturbance] 05-02-2019 Chronic Diabetes mellitus with complications (6 sources) Neuropathy due to diabetes mellitus; Translations: [Type 2 diabetes mellitus with diabetic neuropathy, unspecified] Onset: 2 01-24-2019 Chronic Diabetes mellitus without complication (10 sources) Type 2 diabetes mellitus without complication; Translations: [Diabetes mellitus without mention of complication, type II or unspecified type, not stated as uncontrolled] Onset: 1 Chronic Diabetes mellitus without complication (3 sources) Acute hyperglycemia; Translations: [Hyperglycemia, unspecified] 03-02-2019 Episodic Diseases of white blood cells (1 source) Leukocytosis; Translations: [Elevated white blood cell count, unspecified] 05-02-2019 Chronic Disorders of lipid metabolism (10 sources) Mixed hyperlipidemia; Translations: [Mixed hyperlipidemia] Onset: 1 01-24-2019 Chronic Esophageal disorders (4 sources) Gastroesophageal reflux disease; Translations: [Gastro-esophageal reflux disease without esophagitis] Onset: 2 03-17-2019 Chronic Essential hypertension (4 sources) Hypertensive disorder; Translations: [Essential (primary) hypertension] Onset: 2 01-24-2019 Chronic Fluid and electrolyte disorders (3 sources) Metabolic acidosis; Translations: [Acidosis] 03-16-2019 Episodic Genitourinary symptoms and ill-defined conditions (5 sources) Mixed incontinence; Translations: [Female stress incontinence] Onset: 4 Chronic Genitourinary symptoms and ill-defined conditions (6 sources) Nocturia; Translations: [Nocturia] Onset: 4 Episodic Hypertension with complications and secondary hypertension (1 source) Hypertensive heart disease with heart failure; Translations: [HTN HEART DISEASE W/HEART FAIL] Onset: 2 Chronic Leukemias (9 sources) Chronic lymphoid leukemia, disease; Translations: [Chronic lymphocytic leukemia of B-cell type not having achieved remission] Onset: 6 03-31-2016 Chronic Nausea and vomiting (1 source) Vomiting; Translations: [Vomiting, unspecified] 03-14-2019 Episodic Noninfectious gastroenteritis (1 source) Acute gastroenteritis; Translations: [Noninfective gastroenteritis and colitis, unspecified] 03-14-2019 Episodic Nutritional deficiencies (1 source) Iron deficiency; Translations: [Iron deficiency] 01-24-2019 Episodic Other and ill-defined cerebrovascular disease (1 source) Cerebrovascular disease, unspecified; Translations: [CEREBROVASCULAR DISEASE UNSPECIFIED] Onset: 2 Chronic Other circulatory disease (2 sources) Low blood pressure; Translations: [Hypotension, unspecified] 03-14-2019 Episodic Other circulatory disease (3 sources) History of cerebrovascular accident; Translations: [Personal history of transient ischemic attack (TIA), and cerebral infarction without residual deficits] 03-17-2019 Episodic Other diseases of bladder and urethra (1 source) Detrusor overactivity; Translations: [Overactive bladder] Onset: 4 Chronic Other gastrointestinal disorders (1 source) Swallowing painful; Translations: [Dysphagia, unspecified] 05-02-2019 Episodic Other gastrointestinal disorders (1 source) Diarrhea; Translations: [Diarrhea, unspecified] 03-14-2019 Episodic Other hereditary and degenerative nervous system conditions (2 sources) Impaired cognition; Translations: [Mild cognitive impairment, so stated] Chronic Other hereditary and degenerative nervous system conditions (3 sources) Restless legs; Translations: [Restless legs syndrome] 03-17-2019 Chronic Other hereditary and degenerative nervous system conditions (1 source) Restless legs syndrome; Translations: [RESTLESS LEGS SYNDROME] Onset: 2 Chronic Other nervous system disorders (1 source) Metabolic encephalopathy; Translations: [Metabolic encephalopathy] 09-26-2018 Chronic Other nervous system disorders (2 sources) Unsteady gait; Translations: [Unsteadiness on feet] Episodic Residual codes; unclassified (4 sources) Sleep apnea; Translations: [Sleep apnea, unspecified] Chronic Residual codes; unclassified (1 source) Tobacco user; Translations: [Tobacco use] 01-24-2019 Episodic Septicemia (except in labor) (1 source) Sepsis; Translations: [Sepsis, unspecified organism] 05-01-2019 Episodic Spondylosis; intervertebral disc disorders; other back problems (1 source) Neurogenic claudication; Translations: [Spinal stenosis, lumbar region with neurogenic claudication] 05-03-2019 Episodic Unclassified (1 source) CONTACT W/AND (SUSP) EXPOS COVID-19; Translations: [CONTACT W/AND (SUSP) EXPOS COVID-19] Onset: 2 Unclassified (1 source) PERSONAL HISTORY OF COVID-19; Translations: [PERSONAL HISTORY OF COVID-19] Onset: 2 Past or Other Problems Problem Classification Problem Date Documented Date Episodic/Chronic Bacterial infection; unspecified site (1 source) Unspecified Escherichia coli [E. coli] as the cause of diseases classified elsewhere; Translations: [UNS E COLI CAUSE DX CLASS ELSEWHERE] Onset: 12-24-2021 Episodic Deficiency and other anemia (4 sources) Anemia, unspecified; Translations: [ANEMIA UNSPECIFIED] Onset: 08-13-2021 Episodic Gastritis and duodenitis (1 source) Gastritis, unspecified, without bleeding; Translations: [GASTRITIS UNS WITHOUT BLEEDING] Onset: 09-15-2021 Episodic Joint disorders and dislocations; trauma-related (1 source) Unspecified dislocation of right acromioclavicular joint, initial encounter Onset: 10-14-2021 Resolved: 10-14-2021 Episodic Leukemias (1 source) Personal history of leukemia; Translations: [PERSONAL HISTORY OF LEUKEMIA] Onset: 12-24-2021 Episodic Malaise and fatigue (1 source) Other fatigue; Translations: [OTHER FATIGUE] Onset: 01-28-2022 Episodic Nonspecific chest pain (4 sources) Chest pain, unspecified; Translations: [CHEST PAIN UNSPECIFIED] Onset: 12-22-2021 Episodic Other aftercare (1 source) emt intermediate (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 insulin; Translations: [HALFWAY CURRENT USE OF INSULIN] Onset: 01-28-2022 Episodic Other aftercare (1 source) 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; Translations: [OTH ROOMING HOUSE KEEPER CURRENT DRUG THERAPY] Onset: 12-24-2021 Episodic Other aftercare (1 source) group home (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 oral hypoglycemic drugs; Translations: [ROOMING HOUSE KEEPER USE ORAL HYPOGLYCEMIC DX] Onset: 12-24-2021 Episodic Other aftercare (1 source) emt intermediate (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 anticoagulants; Translations: [HALFWAY CURRNT USE ANTICOAGULANTS] Onset: 12-24-2021 Episodic Other and unspecified benign neoplasm (1 source) Benign neoplasm of transverse colon; Translations: [BENIGN NEOPLASM OF TRANSVERSE COLON] Onset: 09-15-2021 Episodic Other and unspecified benign neoplasm (1 source) Benign neoplasm of sigmoid colon; Translations: [BENIGN NEOPLASM OF SIGMOID COLON] Onset: 09-15-2021 Episodic Other circulatory disease (1 source) Personal history of transient ischemic attack (TIA), and cerebral infarction without residual deficits; Translations: [PERS HX TIA AND CI NO RESID DEFICIT] Onset: 12-24-2021 Episodic Other lower respiratory disease (4 sources) Dyspnea, unspecified; Translations: [DYSPNEA UNSPECIFIED] Onset: 12-04-2021 Episodic [place]ley-; endo-; and myocarditis; cardiomyopathy (except that caused by tuberculosis or sexually transmitted disease) (4 sources) Pericardial effusion (noninflammatory); Translations: [PERICARDIAL EFFUSION NONINFLAMM] Onset: 02-06-2022 Episodic Residual codes; unclassified (1 source) Acquired absence of other specified parts of digestive tract; Translations: [ACQ ABSENCE OTH PART DIGESTV TRACT] Onset: 12-24-2021 Episodic Urinary tract infections (2 sources) Acute urinary tract infection; Translations: [Urinary tract infection, site not specified] Onset: 12-24-2021 03-14-2019 Episodic Procedures Date Procedure Procedure Detail Performing Clinician Start: 04-14-2022 Gluc bld gluc mntr d ev cleared fda spec home use [facility] Provider Start: 09-13-2020 Colonoscopy Shante Orkrishna ech Start: 04-22-2017 Cystourethroscopy wi dilation of urethral stricture Shante Orzeyovani Comment on above: 01/09/2019 Back structure, excl uding neck (body structure) Shante Orzech Cataract (disorder) Shante O rzech Cholecystectomy Shante Orzec h Hysterectomy Shante Orzech Tonsillectomy Shante Orzech Results Test Name Value Interpretation Reference Range Facility Patient Educationon 03-05-20 Patient Education Obstetrics and Gynecology Overactive Bladder, Adult Overactive bladder is a condition in which a person has a sudden and frequent need to urinate. A person might also leak urine if he or she cannot get to the bathroom fast enough (urinary incontinence). Sometimes, symptoms can interfere with work or social activities. What are the causes? Overactive bladder is associated with poor nerve signals between your bladder and your brain. Your bladder may get the signal to empty before it is full. You may also have very sensitive muscles that make your bladder squeeze too soon. This condition may also be caused by other factors, such as: ? Medical conditions: ? Urinary tract infection. ? Infection of nearby tissues. ? Prostate enlargement. ? Bladder stones, inflammation, or tumors. ? Diabetes. ? Muscle or nerve weakness, especially from these conditions: ? A spinal cord injury. ? Stroke. ? Multiple sclerosis. ? Parkinson's disease. ? Other causes: ? Surgery on the uterus or urethra. ? Drinking too much caffeine or alcohol. ? Certain medicines, especially those that eliminate extra fluid in the body (diuretics). ? Constipation. What increases the risk? You may be at greater risk for overactive bladder if you: ? Are an older adult. ? Smoke. ? Are going through menopause. ? Have prostate problems. ? Have a neurological disease, such as stroke, dementia, Parkinson's disease, or multiple sclerosis (MS). ? Eat or drink alcohol, spicy food, caffeine, and other things that irritate the bladder. ? Are overweight or obese. What are the signs or symptoms? Symptoms of this condition include a sudden, strong urge to urinate. Other symptoms include: ? Leaking urine. ? Urinating 8 or more times a day. ? Waking up to urinate 2 or more times overnight. How is this diagnosed? This condition may be diagnosed based on: ? Your symptoms and medical history. ? A physical exam. ? Blood or urine tests to check for possible causes, such as infection. You may also need to see a health care provider who specializes in urinary tract problems. This is called a urologist. How is this treated? Treatment for overactive bladder depends on the cause of your condition and whether it is mild or severe. Treatment may include: ? Bladder training, such as: ? Learning to control the urge to urinate by following a schedule to urinate at regular intervals. ? Doing Kegel exercises to strengthen the pelvic floor muscles that support your bladder. ? Special devices, such as: ? Biofeedback. This uses sensors to help you become aware of your body's signals. ? Electrical stimulation. This uses electrodes placed inside the body (implanted) or outside the body. These electrodes send gentle pulses of electricity to strengthen the nerves or muscles that control the bladder. ? Women may use a plastic device, called a pessary, that fits into the vagina and supports the bladder. ? Medicines, such as: ? Antibiotics to treat bladder infection. ? Antispasmodics to stop the bladder from releasing urine at the wrong time. ? Tricyclic antidepressants to relax bladder muscles. ? Injections of botulinum toxin type A directly into the bladder tissue to relax bladder muscles. ? Surgery, such as: ? A device may be implanted to help manage the nerve signals that control urination. ? An electrode may be implanted to stimulate electrical signals in the bladder. ? A procedure may be done to change the shape of the bladder. This is done only in very severe cases. Follow these instructions at home: Eating and drinking ? Make diet or lifestyle changes recommended by your health care provider. These may include: ? Drinking fluids throughout the day and not only with meals. ? Cutting down on caffeine or alcohol. ? Eating a healthy and balanced diet to prevent constipation. This may include: ? Choosing foods that are high in fiber, such as beans, whole grains, and fresh fruits and vegetables. ? Limiting foods that are high in fat and processed sugars, such as fried and sweet foods. Lifestyle ? Lose weight if needed. ? Do not use any products that contain nicotine or tobacco. These include cigarettes, chewing tobacco, and vaping devices, such as e-cigarettes. If you need help quitting, ask your health care provider. General instructions ? Take hxns-[id number] and prescription medicines only as told by your health care provider. ? If you were prescribed an antibiotic medicine, take it as told by your health care provider. Do not stop taking the antibiotic even if you start to feel better. ? Use any implants or pessary as told by your health care provider. ? If needed, wear pads to absorb urine leakage. ? Keep a log to track how much and when you drink, and when you need to urinate. This will help your health care provider monitor yo (more content not included)... Normal [facility] C Urineon 03-02-2024 Bacteria identified Cx Nom (U) Microbiology PROCEDURE: Urine Culture [R1] SOURCE: U Random BODY SITE: COLLECTED DATE/TIME: 02/29/2024 11:27 EDT RECEIVED DATE/TIME: 02/29/2024 18:25 EDT START DATE/TIME: 02/29/2024 18:25 EDT FREE TEXT SOURCE: AMALIA Shukla APRN, AMALIA Shukla APRN, Shante Frey X FINAL REPORTS Final Report [] Verified Date/Time: 03/02/2024 09:45 EDT 50,000 cfu/ml Escherichia coli 1,000 cfu/ml Mixed skin contaminants SUSCEPTIBILITY RESULTS LEGEND: S=Susceptible, N/R=Not Reported, Blank=Data not available, or drug not advisable or tested, I=Intermediate, ESBL=Extended spectrum beta-lactamase, R=Resistant, TFG=Thymidine-depende nt strain, HAIDER=Beta-lactamase positive, ESPERANZA=mcg/m;(mg/L), S*=Predicted susceptible interp, R*=Predicted resistant interp EC Antibiotic ESPERANZA Dilutn ESPERANZA Interp Ampicillin >16 R Ampicillin/ 16/8 I Sulbactam Aztreonam <=4 S Cefazolin <=2 S Cefepime <=2 S Ceftazidime <=1 S Ceftazidime/ <=8 S Avibactam Ceftriaxone 2 I Cefuroxime <=4 S Ciprofloxacin <=0.25 S Ertapenem <=0.5 S Gentamicin >8 R Levofloxacin <=0.5 S Meropenem <=1 S Nitrofurantoin <=32 S Piperacillin/ <=8 S Tazobactam Tetracycline <=4 S Tobramycin 4 S Trimethoprim/ >2/38 R Sulfa Performing Locations R1: This test was performed at: [facility], [address] [place] [address], [facility]- , , [facility] Comment on above: Performed By: #### [id number] #### [facility] [address] [place] [address] Physician Referralon 024 Physician Referral [id number]#1. 00TIFF [facility] Screenson 03-01-2024 Screens [id number]# 1.00TIFF [facility] Ambulatory Visit Summaryon 0 02-29-2024 Ambulatory Visit Summary ROBINA RON :1950 Visit Date:02/29/2024 Ambulatory Visit Instructions Your Diagnosis OAB (overactive bladder) Your Care Team Attending Physician - AMALIA Shukla APRN, Shante Bonilla Primary Care Physician - SHAIKH SPARKS MD Referring Physician - SHAIKH SPARKS MD This Is Your Medications List Contact prescribing physician if questions or concerns atorvastatin (atorvastatin 20 mg Tab) dapagliflozin (Farxiga 10 mg oral tablet) diltiazem (DilTIAZem (Eqv-Cardizem CD) 240 mg/24 hours oral capsule, extended release) dulaglutide (Trulicity Pen 1.5 mg/0.5 mL subcutaneous solution) glipiZIDE (glipiZIDE 5 mg Tab) insulin isophane-insulin regular (HumuLIN 70/30 KwikPen 70 units-30 units/mL subcutaneous suspension) lisinopril (lisinopril 10 mg Tab) metoprolol (Metoprolol tartrate 50 mg Tab) oxybutynin (oxybutynin 5 mg Tab) pantoprazole (Pantoprazole [address] Tab) trazodone (traZODONE 50 mg Tab) Procedures Performed Colonoscopy (2020), Cystourethroscopy with dilation of urethral stricture (04/22/2017), Back, Cataract, Cholecystectomy, Hysterectomy, Tonsillectomy. Discharge Vitals Heart Rate (Peripheral) 68 Respiratory Rate 16 Blood Pressure 132/78 Height 155 cm Height 61 in Weight 66.5 kg Weight 146.3 lb BMI 27.68 Medications What How Much When Instructions Unchanged atorvastatin (atorvastatin 20 mg Tab) 90 EA, 0 Refill(s), TAKE 1 TABLET BY MOUTH EVERY DAY IN THE MORNING Contact prescribing physician if questions or concerns Unchanged dapagliflozin (Farxiga 10 mg oral tablet) 30 EA, 0 Refill(s), TAKE 1 TABLET BY MOUTH EVERY DAY Contact prescribing physician if questions or concerns Unchanged diltiazem (DilTIAZem (Eqv-Cardizem CD) 240 mg/ 24 hours oral capsule, extended release) 90 EA, 0 Refill(s), TAKE 1 CAPSULE BY MOUTH EVERY DAY Contact prescribing physician if questions or concerns Unchanged dulaglutide (Trulicity Pen 1.5 mg/ 0.5 mL subcutaneous solution) 6 mL, 0 Refill(s), INJECT 1.5 MG UNDER THE SKIN 1 (ONE) TIME PER WEEK Contact prescribing physician if questions or concerns Unchanged glipiZIDE (glipiZIDE 5 mg Tab) 180 EA, 0 Refill(s), TAKE 1 TABLET (5 MG) BY MOUTH IN THE MORNING AND 1 TABLET (5 MG) IN THE EVENING. TAKE BEFORE MEALS. Contact prescribing physician if questions or concerns Unchanged insulin isophane-insulin regular (HumuLIN 70/ 30 KwikPen 70 units-30 units/ mL subcutaneous suspension) 30 mL, 0 Refill(s), INJECT 15 UNITS UNDER THE SKIN IN THE MORNING AND 15 UNITS IN THE EVENING. INJECT BEFORE MEALS. Contact prescribing physician if questions or concerns Unchanged lisinopril (lisinopril 10 mg Tab) 90 EA, 0 Refill(s), TAKE 1 TABLET BY MOUTH EVERY DAY Contact prescribing physician if questions or concerns Unchanged metoprolol (Metoprolol tartrate 50 mg Tab) 180 EA, 0 Refill(s), TAKE 1 TABLET BY MOUTH EVERY 12 HOURS Contact prescribing physician if questions or concerns Unchanged oxybutynin (oxybutynin 5 mg Tab) 1 Tablets By Mouth 2 times a day as needed for for urinary discomfort Contact prescribing physician if questions or concerns Unchanged pantoprazole (Pantoprazole [address] Tab) 90 EA, 0 Refill(s), TAKE 1 TABLET BY MOUTH EVERY DAY Contact prescribing physician if questions or concerns Unchanged trazodone (traZODONE 50 mg Tab) 90 EA, 0 Refill(s), TAKE 1 TABLET BY MOUTH EVERYDAY AT BEDTIME Contact prescribing physician if questions or concerns Allergies Percocet (Night terrors) Spiriva (Throat swelling, Tongue swelling) oxyCODONE (Night terrors) Problems Ongoing - Any problem that you are currently receiving treatment for. Anemia due to chronic blood loss CLL (chronic lymphocytic leukemia) Female stress incontinence GERD without esophagitis Glycosuria History of CVA (cerebrovascular accident) Iron deficiency anemia due to chronic blood loss Mixed hyperlipidemia Nocturia PAF (paroxysmal atrial fibrillation) Postural urinary incontinence Primary hypertension Restless leg syndrome Stage 3 chronic kidney disease Type 2 diabetes mellitus with diabetic autonomic (poly)neuropathy Type 2 diabetes mellitus with stage 3a chronic kidney disease, with long-term current use of insulin Urinary frequency Patient Survey You may receive a survey via text or e-mail asking about your office visit. Please share your experience with us by completing your survey. We appreciate your feedback and thank you for choosing us for your care. Normal [facility] GLYCOHEMOGLOBIN A1Con 2021 ADA RECOMMENDATION SEE BELOW Normal [facility] Comment on above: Result Comment: ADA RECOMMENDED LIMIT 4.0 - 6.0 ADA THERAPEUTIC TARGET < 7.0 ACTION SUGGESTED > 7.0 Performed By: #### A 1C #### [facility] [address] [address] [address] Julisa Lowe Glucose [Mass/Vol] 235 mg/dL Normal [facility] Comment on above: Performed By: #### A 1C #### [facility] [address] [address] [address] Julisa Lowe HbA1c (Bld) [Mass fraction] 9.8 % Critically high 4.5-6.2 [facility] Comment on above: Performed By: #### A 1C #### [facility] [address] [place] [address] Dr. Julisa Lowe PROF CHEM 8 (BAS METB)on Anion gap [Moles/Vol] 17.7 mmol/L Normal [facility] Comment on above: Performed By: #### B MP #### [facility] [address] [address] [address] Julisa Lowe Calcium [Mass/Vol] 9.3 mg/dL Normal 8.5-10.1 [facility] Comment on above: Performed By: #### B MP #### [facility] [address] [address] [address] Julisa Lowe Chloride [Moles/Vol] 107 mmol/L Normal 98-107 [facility] Comment on above: Performed By: #### B MP #### [facility] [address] [address] [address] Julisa Lowe CO2 [Moles/Vol] 24.3 mmol/L Normal 21.0-32.0 [facility] Comment on above: Performed By: #### B MP #### [facility] [address] [place] [address] Dr. Julisa Lowe Creatinine [Mass/Vol] 0.90 mg/dL Normal 0.55-1.02 [facility] Comment on above: Performed By: #### B MP #### [facility] [address] [address] [address] Julisa Lowe EGFR-AF COLOMBIAN >60 Normal >=60 [facility] Comment on above: Performed By: #### B MP #### [facility] [address] [address] [address] Julisa Lowe EGFR-NON AF COLOMBIAN >60 Normal >=60 [facility] Comment on above: Performed By: #### B MP #### [facility] [address] [address] [address] Julisa Lowe Glucose [Mass/Vol] 196 mg/dL Critically high 74-106 [facility] Comment on above: Performed By: #### B MP #### [facility] [address] [address] [address] Julisa Lowe Potassium [Moles/Vol] 5.0 mmol/L Normal 3.5-5.1 [facility] Comment on above: Performed By: #### B MP #### [facility] [address] [address] [address] Julisa Lowe Sodium [Moles/Vol] 144 mmol/L Normal 136-145 [facility] Comment on above: Performed By: #### B MP #### [facility] [address] [address] [address] Julisa Lowe Urea nitrogen [Mass/Vol] 33.0 mg/dL Critically high 7.0-18.0 [facility] Comment on above: Performed By: #### B MP #### [facility] [address] [address] [address] Julisa Lowe Urea nitrogen/Creatinine [Mass ratio] 36.7 mg/mg Normal [facility] Comment on above: Performed By: #### B MP #### [facility] [address] [address] [address] Julisa Lowe Basophils Auto (Bld) [#/Vol] Ordered By: Hood Benavidez on 05-12-2022 Basophils (Bld) [#/Vol] 0.1 10*3/uL 0.0-0.2 [facility] Basophils/100 WBC Auto (Bld) Ordered By: Hood Benavidez on 05-12-2022 Basophils/100 WBC (Bld) 0.7 % . [facility] Blood hemoglobin measurement (mass/volume)Ordered By: Hood Benavidez on 05-12-2022 Hemoglobin (Bld) [Mass/Vol] 11.8 g/dL 11.8-15.4 [facility] Blood leukocytes automated c ount (number/volume)Ordered By: Hood Benavidez on 05-12-2022 WBC (Bld) [#/Vol] 7.6 10*3/uL 4.5-11.[address] [facility] [address] biopsyOrdered By: Merna Benavidez on 05-12-2022 Transferrin [Mass/Vol] 206 mg/dL 180-380 [facility] Complete Blood Count Auto Di ffon 05-12-2022 Basophils (Bld) [#/Vol] 0.1 10*3/uL Normal 0.0-0.2 [facility] Comment on above: Result Comment: PERF ORMED BY: [place] [address] PATHOLOGIST ENVIRONMENTAL SUSTAINABILITY MANAGER JENY DODGE M.D. Performed By: #### F E and TIBC, KATHY, [id number], CBC #### [facility] [address] Basophils/100 WBC (Bld) 0.7 % Normal . [facility] Comment on above: Performed By: #### F E and TIBC, KATHY, [id number], CBC #### [facility] [address] [place] [address] [place] Eosinophils (Bld) [#/Vol] 0.1 10*3/uL Normal 0.0-0.45 [facility] Comment on above: Performed By: #### F E and TIBC, KATHY, [id number], CBC #### [facility] [address] [place] [address] [place] Eosinophils/100 WBC (Bld) 1.6 % Normal . [facility] Comment on above: Performed By: #### F E and TIBC, KATHY, [id number], CBC #### [address] Erythrocyte distribution width (RBC) [Ratio] 27.8 % High 11.9-15.3 [facility] Comment on above: Performed By: #### F E and TIBC, KATHY, [id number], CBC #### [address] Hematocrit (Bld) [Volume fraction] 37.5 % Normal 34.0-46.4 [facility] Comment on above: Performed By: #### F E and TIBC, KATHY, [id number], CBC #### [address] Hemoglobin (Bld) [Mass/Vol] 11.8 g/dL Normal 11.8-15.4 [facility] Comment on above: Performed By: #### F E and TIBC, KATHY, [id number], CBC #### [address] Lymphocytes (Bld) [#/Vol] 2.4 10*3/uL Normal 1.00-4.8 [facility] Comment on above: Performed By: #### F E and TIBC, KATHY, [id number], CBC #### [address] Lymphocytes/100 WBC (Bld) 32.0 % Normal . [facility] Comment on above: Performed By: #### F E and TIBC, KATHY, [id number], CBC #### [address] MCH (RBC) [Entitic mass] 24.2 pg Low 24.7-34.3 [facility] Comment on above: Performed By: #### F E and TIBC, KATHY, [id number], CBC #### [address] MCV (RBC) [Entitic vol] 76.9 fL Low 80-100 [facility] Comment on above: Performed By: #### F E and TIBC, KATHY, [id number], CBC #### [address] Mean Corpuscular HGB Conc 31.4 g/dL Low 32.0-35.0 [facility] Comment on above: Performed By: #### F E and TIBC, KATHY, [id number], CBC #### [address] Monocytes (Bld) [#/Vol] 0.4 10*3/uL Normal 0.0-0.8 [facility] Comment on above: Performed By: #### F E and TIBC, KATHY, [id number], CBC #### [address] Monocytes/100 WBC (Bld) 5.8 % Normal . [facility] Comment on above: Performed By: #### F E and TIBC, KATHY, [id number], CBC #### [address] Neutrophils (Bld) [#/Vol] 4.6 10*3/uL Normal 1.8-7.7 [facility] Comment on above: Performed By: #### F E and TIBC, KATHY, [id number], CBC #### [address] Neutrophils/100 WBC (Bld) 59.9 % Normal . [facility] Comment on above: Performed By: #### F E and TIBC, KATHY, [id number], CBC #### [facility] [address] [place] [address] [place] Nucleated RBC/100 WBC (Bld) [Ratio] 0.2 % Normal 0-0.5 [facility] Comment on above: Performed By: #### F E and TIBC, KATHY, [id number], CBC #### [address] Platelet mean volume (Bld) [Entitic vol] 6.5 fL Normal 6.3-10.7 [facility] Comment on above: Performed By: #### F E and TIBC, KATHY, [id number], CBC #### [facility] [address] Platelets (Bld) [#/Vol] 231 10*3/uL Normal 150-450 [facility] Comment on above: Performed By: #### F E and TIBC, KATHY, [id number], CBC #### [facility] [address] RBC (Bld) [#/Vol] 4.88 10*6/uL Normal 3.60-5.00 [facility] Comment on above: Performed By: #### F E and TIBC, KATHY, [id number], CBC #### [facility] [address] WBC (Bld) [#/Vol] 7.6 10*3/uL Normal 4.5-11.0 [facility] Comment on above: Performed By: #### F E and TIBC, KATHY, [id number], CBC #### [facility] [address] Eosinophils Auto (Bld) [#/Vo l]Ordered By: Hood Benavidez on 05-12-2022 Eosinophils (Bld) [#/Vol] 0.1 10*3/uL 0.0-0.45 [facility] Eosinophils/100 WBC Auto (Bl d)Ordered By: Hood Benavidez on 05-12-2022 Eosinophils/100 WBC (Bld) 1.6 % . [facility] Erythrocyte distribution wid th Auto (RBC) [Ratio]Ordered By: Hood Benavidez on 05-12-2022 Erythrocyte distribution width (RBC) [Ratio] 27.8 % 11.9-15.3 [facility] Ferritinon 05-12-2022 Ferritin [Mass/Vol] 218.6 ng/mL Normal 11-306.8 [facility] Comment on above: Performed By: #### F E and TIBC, KATHY, [id number], CBC #### [facility] [address] [id number] [facility] Ferritin [Mass/volume] in Se rum or PlasmaOrdered By: Hood Benavidez on 05-12-2022 Ferritin [Mass/Vol] 218.6 ng/mL 11-306.8 [facility] Folate [Mass/volume] in Seru m or PlasmaOrdered By: Hood Benavidez on 05-12-2022 Folate [Mass/Vol] 7.9 ng/mL >5.9 [facility] Comment on above: Folate reference ran ge: >5.9 ng/ml The WHO technical consultation on folate and vitamin b12 deficiencies has determined that folate concentrations less than 4 ng/ml are considered deficient. Glucose Glucometer (BldC) [M ass/Vol]Ordered By: Hood Benavidez on 05-12-2022 Glucose [Mass/Vol] 426 mg/dL [facility] Comment on above: Random Glucose Refer ence Range is dependent on time and content of last meal. Glucose of more than 200 mg/dL in a nonstressed, ambulatory subject supports the diagnosis of Diabetes Mellitus. Glucose Poct Glucometerson 0 05-12-2022 Commemt1 Normal [facility] Comment on above: Result Comment: Glu2 : Result Not Confirmed PERFORMED BY: [facility] [address] [place] [address] PATHOLOGIST ENVIRONMENTAL SUSTAINABILITY MANAGER JENY DODGE M.D. Performed By: #### G LULS #### Point of Care testing , Glucose [Mass/Vol] 426 mg/dL Off scale high [facility] Comment on above: Result Comment: [place] Glucose Reference Range is dependent on time and content of last meal. Glucose of more than 200 mg/dL in a nonstressed, ambulatory subject supports the diagnosis of Diabetes Mellitus. Performed By: #### G LULS #### Point of Care testing , Hematocrit Auto (Bld) [Volum e fraction]Ordered By: Hood Benavidez on 05-12-2022 Hematocrit (Bld) [Volume fraction] 37.5 % 34.0-46.4 [facility] Iron [Mass/volume] in Serum or PlasmaOrdered By: Hood Benavidez on 05-12-2022 Iron [Mass/Vol] 48 ug/dL 40-150 [facility] Iron and TIBC Profileon 04-15 0-2021 % Iron Saturation 16.0 % Low 20-50 [facility] Comment on above: Performed By: #### F E and TIBC, KATHY, [id number], CBC #### [facility] [address] Iron [Mass/Vol] 48 ug/dL Normal 40-150 [facility] Comment on above: Performed By: #### F E and TIBC, KATHY, [id number], CBC #### [facility] [address] Total Iron Binding Capacity 288 ug/dL Normal 255-450 [facility] Comment on above: Performed By: #### F E and TIBC, KATHY, [id number], CBC #### [facility] [address] Transferrin [Mass/Vol] 206 mg/dL Normal 180-380 [facility] Comment on above: Performed By: #### F E and TIBC, KATHY, [id number], CBC #### [facility] [address] Iron binding capacity [Mass/ volume] in Serum or PlasmaOrdered By: Hood Benavidez on 05-12-2022 Iron binding capacity [Mass/Vol] 288 ug/dL 255-450 [facility] Iron saturation [Mass Fracti on] in Serum or PlasmaOrdered By: Hood Benavidez on 05-12-2022 Iron saturation [Mass fraction] 16.0 % -50 [facility] Los 05-12-2022 L - -------- Specimen: [id number] Received: 05/12/22 Status: CORRY Hernandez Num: [id number] Spec Type: Surgical Subm Dr: Hood Benavidez MD Tissues: A Duodenum - Biopsy (DUODENAL BX) Procedures: HE Stain/2, Gross/Micro L4 -------- Age/ Patient Sex Location Account Attending Physician -------- Robina Ron 71/F [id number] Hood Benavidez MD -------- SPEC NUM: [id number] RECD: 05/12/22 STATUS: CORRY HERNANDEZ NUM: [id number] PROSPER: 05/12/[address] [facility] [address]: Hood Benavidez MD ENTERED: 05/12/[address]: SPEC TYPE: Surgical DEPT: S ORDERED: HE Stain/2, Gross/Micro L4 ORDERED: HE Stain/2, Gross/Micro L4 Pathological Diagnosis Duodenum, biopsy: - Small intestinal mucosa showing no specific pathologic changes - Preserved villous and crypt architecture - Negative for active inflammation Clinical Information Iron deficiency Gross Description Received in 10% neutral buffered formalin, labeled with the patient's name, number and duodenal biopsy, rule out rowdy is one fragment of soft tissue measuring 0.8 x 0.5 x 0.2 cm. Entirely submitted in one cassette labeled A1. (LG) Microscopic Description Two glass slides with H E stained material have been examined. The microscopic findings support the above pathologic diagnosis. [id number] -------- -------- Specimen: [id number] Received: 05/12/22 Status: CORRY David Num: [id number] Spec Type: Surgical Subm Dr: Hood Benavidez MD Tissues: A Duodenum - Biopsy (DUODENAL BX) Procedures: HE Stain/2, Gross/Micro L4 -------- Patient: Robina Ron [id number] (Continued) -------- Signed (signature on file) Jeny Dodge MD 05/13/22 1656 Normal [facility] - Chemistry and C hemistry - challengeOrdered By: Hood Benavidez on 05-12-2022 Cobalamin (Vitamin B12) [Mass/Vol] 277 pg/mL 180-914 [facility] - Hematology and Cell countsOrdered By: Hood Benavidez on 05-12-2022 Nucleated RBC/100 WBC (Bld) [Ratio] 0.2 % 0-0.5 [facility] Lymphocytes Auto (Bld) [#/Vo l]Ordered By: Hood Benavidez on 05-12-2022 Lymphocytes (Bld) [#/Vol] 2.4 10*3/uL 1.00-4.8 [facility] Lymphocytes/100 WBC Auto (Bl d)Ordered By: Hood Benavidez on 05-12-2022 Lymphocytes/100 WBC (Bld) 32.0 % . [facility] MCH Auto (RBC) [Entitic mass ]Ordered By: Hood Benavidez on 05-12-2022 MCH (RBC) [Entitic mass] 24.2 pg 24.7-34.3 [facility] MCHC Auto (RBC) [Mass/Vol]Or dered By: Hood Benavidez on 05-12-2022 MCHC (RBC) [Mass/Vol] 31.4 g/dL 32.0-35.0 [facility] MCV Auto (RBC) [Entitic vol] Ordered By: Hood Benavidez on 05-12-2022 MCV (RBC) [Entitic vol] 76.9 fL 80-100 [facility] Monocytes Auto (Bld) [#/Vol] Ordered By: Hood Benavidez on 05-12-2022 Monocytes (Bld) [#/Vol] 0.4 10*3/uL 0.0-0.8 [facility] Monocytes/100 WBC Auto (Bld) Ordered By: Hood Benavidez on 05-12-2022 Monocytes/100 WBC (Bld) 5.8 % . [facility] Neutrophils Auto (Bld) [#/Vo l]Ordered By: Hood Benavidez on 05-12-2022 Neutrophils (Bld) [#/Vol] 4.6 10*3/uL 1.8-7.7 [facility] Neutrophils/100 WBC Auto (Bl d)Ordered By: Hood Benavidez on 05-12-2022 Neutrophils/100 WBC (Bld) 59.9 % . [facility] No Panel InformationOrdered By: Hood Benavidez on 05-12-2022 Bedside Glucose Comment See comment [facility] Comment on above: Glu2: Result Not Con firmed Platelet mean volume Auto (B ld) [Entitic vol]Ordered By: Hood Benavidez on 05-12-2022 Platelet mean volume (Bld) [Entitic vol] 6.5 fL 6.3-10.7 [facility] Platelets Auto (Bld) [#/Vol] Ordered By: Hood Benavidez on 05-12-2022 Platelets (Bld) [#/Vol] 231 10*3/uL 150-450 [facility] RBC Auto (Bld) [#/Vol]Ordere d By: Hood Benavidez on 05-12-2022 RBC (Bld) [#/Vol] 4.88 10*6/uL 3.60-5.00 [facility] Vit. B12/Folate Profileon Cobalamin (Vitamin B12) [Mass/Vol] 277 pg/mL Normal 180-914 [facility] Comment on above: Performed By: #### F E and TIBC, KATHY, [id number], CBC #### [facility] [address] Folate 7.9 ng/mL Normal >5.9 [facility] Comment on above: Result Comment: Katelyn te reference range: >5.9 ng/ml The WHO technical consultation on folate and vitamin b12 deficiencies has determined that folate concentrations less than 4 ng/ml are considered deficient. PERFORMED BY: [place] [address] PATHOLOGIST ENVIRONMENTAL SUSTAINABILITY MANAGER JENY DODGE M.D. Performed By: #### F E and TIBC, KATHY, [id number], CBC #### [facility] [address] [id number] [facility] SARS-CoV-2 (COVID-19) RNA CHALINO+probe Ql (Unsp spec) Negative Normal Negative [facility] Comment on above: Order Comment: Healt hcare Worker?: N Result Comment: Testing for SARS-CoV-2 by RT-PCR This test was developed and its performance characteristics determined by [employer] and validated at the [facility]. This test has not been FDA cleared or approved. This test has been authorized by FDA under an Emergency Use Authorization (EUA). This test has been validated in accordance with the FDA's Guidance Document (Policy for Diagnostics Testing in Laboratories Certified to Perform High Complexity Testing under CLIA prior to Emergency Use Authorization for Coronavirus Disease-2019 during the Public Health Emergency) issued on December 14, 2019. This test is only authorized for the duration of time the declaration that circumstances exist justifying the authorization of the emergency use of in vitro diagnostic tests for detection of SARS-CoV-2 virus and/or diagnosis of COVID-19 infection under section 564(b)(1) of the Act, 21 U.S.C. 360bbb-3(b)(1), unless the authorization is terminated or revoked sooner. PERFORMED BY: [place] [address] PATHOLOGIST ENVIRONMENTAL SUSTAINABILITY MANAGER JENY DODGE M.D. Performed By: #### C OVID 19 [facility] #### [facility] [address] [id number] [facility] COVID-19 Positive/NegativeOr dered By: Hood Benavidez on 05-07-2022 SARS-CoV-2 (COVID-19) N gene CHALINO+probe Ql (Resp) Negative Negative [facility] Comment on above: Testing for SARS-CoV -2 by RT-PCR This test was developed and its performance characteristics determined by [employer] and validated at the [facility]. This test has not been FDA cleared or approved. This test has been authorized by FDA under an Emergency Use Authorization (EUA). This test has been validated in accordance with the FDA's Guidance Document (Policy for Diagnostics Testing in Laboratories Certified to Perform High Complexity Testing under CLIA prior to Emergency Use Authorization for Coronavirus Disease-2019 during the Public Health Emergency) issued on December 14, 2019. This test is only authorized for the duration of time the declaration that circumstances exist justifying the authorization of the emergency use of in vitro diagnostic tests for detection of SARS-CoV-2 virus and/or diagnosis of COVID-19 infection under section 564(b)(1) of the Act, 21 U.S.C. 360bbb-3(b)(1), unless the authorization is terminated or revoked sooner. CBC W Auto Differential pane l (Bld)on 04-14-2022 Basophils (Bld) [#/Vol] 0.03 10*3/uL Normal <0.11 [facility] Comment on above: Order Comment: Speci men Type: BLOOD SPECIMEN Ordering Facility: [facility] Address: [address] [place] [address] Performed By: #### 5 7021-8, 43909-9 #### [facility] CLIA [id number] [address] [place] [address] Basophils/100 WBC (Bld) 0.3 % Normal [facility] Comment on above: Order Comment: Speci men Type: BLOOD SPECIMEN Ordering Facility: [facility] Address: [address] [place] [address] Performed By: #### 5 7021-8, 59040-9 #### [facility] CLIA [id number] [address] [place] [address] Differential cell count method Nom (Bld) Auto Normal [facility] Comment on above: Order Comment: Speci men Type: BLOOD SPECIMEN Ordering Facility: [facility] Address: [address] [address] Performed By: #### 5 7021-8, 86593-4 #### [facility] CLIA [id number] [address] [place] [address] Eosinophils (Bld) [#/Vol] 0.09 10*3/uL Normal <0.46 [facility] Comment on above: Order Comment: Speci men Type: BLOOD SPECIMEN Ordering Facility: [facility] Address: [address] [place] [address] Performed By: #### 5 7021-8, 82068-2 #### [facility] CLIA [id number] [address] [place] [address] Eosinophils/100 WBC (Bld) 1.0 % Normal [facility] Comment on above: Order Comment: Speci men Type: BLOOD SPECIMEN Ordering Facility: [facility] Address: [address] [place] [address] Performed By: #### 5 7021-8, 57596-4 #### [facility] CLIA [id number] [address] [place] [address] Erythrocyte distribution width (RBC) [Ratio] 20.4 % High 11.5-15.0 [facility] Comment on above: Order Comment: Speci men Type: BLOOD SPECIMEN Ordering Facility: [facility] Address: [address] [place] [address] Performed By: #### 5 7021-8, 89662-9 #### [facility] CLIA [id number] [address] [place] [address] Hematocrit (Bld) [Volume fraction] 33.1 % Low 36.0-46.0 [facility] Comment on above: Order Comment: Speci men Type: BLOOD SPECIMEN Ordering Facility: [facility] Address: [address] [place], [place] [address] Performed By: #### 5 7021-8, 56556-2 #### [facility] CLIA [id number] [address] [place] [address] Hemoglobin (Bld) [Mass/Vol] 9.3 g/dL Low 11.5-15.5 [facility] Comment on above: Order Comment: Speci men Type: BLOOD SPECIMEN Ordering Facility: [facility] Address: [address] [address] Performed By: #### 5 7021-8, 25488-5 #### [facility] CLIA [id number] [address] [place] [address] IMMATURE GRAN % 0.9 % Normal [facility] Comment on above: Order Comment: Speci men Type: BLOOD SPECIMEN Ordering Facility: [facility] Address: [address] [place] [address] Performed By: #### 5 7021-8, 48439-3 #### [facility] CLIA [id number] [address] [place] [address] IMMATURE GRAN ABS 0.08 k/uL Normal <0.10 [facility] Comment on above: Order Comment: Speci men Type: BLOOD SPECIMEN Ordering Facility: [facility] Address: [address] [place] [address] Performed By: #### 5 7021-8, 97497-7 #### [facility] CLIA [id number] [address] [place] [address] 85554 Lymphocytes (Bld) [#/Vol] 2.43 10*3/uL Normal 1.00-4.00 [facility] Comment on above: Order Comment: Speci men Type: BLOOD SPECIMEN Ordering Facility: [facility] Address: [address] [place] [address] Performed By: #### 5 7021-8, 44323-5 #### [facility] CLIA [id number] [address] [place] [address] 30216 Lymphocytes/100 WBC (Bld) 26.6 % Normal [facility] Comment on above: Order Comment: Speci men Type: BLOOD SPECIMEN Ordering Facility: [facility] Address: [address] [place] [address] Performed By: #### 5 7021-8, 39320-1 #### [facility] CLIA [id number] [address] [place] [address] 35336 MCH (RBC) [Entitic mass] 20.2 pg Low 26.0-34.0 [facility] Comment on above: Order Comment: Speci men Type: BLOOD SPECIMEN Ordering Facility: [facility] Address: [address] [place] [address] Performed By: #### 5 7021-8, 93287-4 #### [facility] CLIA [id number] [address] [place] [address] 71819 MCHC (RBC) [Mass/Vol] 28.1 g/dL Low 30.5-36.0 [facility] Comment on above: Order Comment: Speci men Type: BLOOD SPECIMEN Ordering Facility: [facility] Address: [address] [place] [address] Performed By: #### 5 7021-8, 34341-9 #### [facility] CLIA [id number] [address] [place] [address] 85984 MCV (RBC) [Entitic vol] 72.0 fL Low 80.0-100.0 [facility] Comment on above: Order Comment: Speci men Type: BLOOD SPECIMEN Ordering Facility: [facility] Address: [address] [place] [address] Performed By: #### 5 7021-8, 83844-4 #### [facility] CLIA [id number] [address] [place] [address] 69002 Monocytes (Bld) [#/Vol] 0.48 10*3/uL Normal <0.87 [facility] Comment on above: Order Comment: Speci men Type: BLOOD SPECIMEN Ordering Facility: [facility] Address: [address] [place], [place] [address] Performed By: #### 5 7021-8, 60767-8 #### [facility] CLIA [id number] [address] [place] [address] 24449 Monocytes/100 WBC (Bld) 5.3 % Normal [facility] Comment on above: Order Comment: Speci men Type: BLOOD SPECIMEN Ordering Facility: [facility] Address: [address] Performed By: #### 5 7021-8, 35162-6 #### [facility] CLIA [id number] [address] [place] [address] 33099 Neutrophils (Bld) [#/Vol] 6.02 10*3/uL Normal 1.45-7.50 [facility] Comment on above: Order Comment: Speci men Type: BLOOD SPECIMEN Ordering Facility: [facility] Address: [address] Performed By: #### 5 7021-8, 27831-6 #### [facility] CLIA [id number] [address] [place] [address] 81251 Neutrophils/100 WBC (Bld) 65.9 % Normal [facility] Comment on above: Order Comment: Speci men Type: BLOOD SPECIMEN Ordering Facility: [facility] Address: [address] [place], [place] [address] Performed By: #### 5 7021-8, 20237-5 #### [facility] CLIA [id number] [address] [place] [address] 64480 Nucleated RBC (Bld) [#/Vol] 10*3/uL Normal <0.01 [facility] Comment on above: Order Comment: Speci men Type: BLOOD SPECIMEN Ordering Facility: [facility] Address: [address] Performed By: #### 5 7021-8, 59153-6 #### [facility] CLIA [id number] [address] [place] [address] 81493 Nucleated RBC/100 WBC (Bld) [Ratio] 0.0 /100 WBC Normal [facility] Comment on above: Order Comment: Speci men Type: BLOOD SPECIMEN Ordering Facility: [facility] Address: [address] [place], [place] [address] Performed By: #### 5 7021-8, 15477-6 #### [facility] CLIA [id number] [address] [place] [address] 17335 Platelet mean volume (Bld) [Entitic vol] 7.7 fL Low 9.0-12.7 [facility] Comment on above: Order Comment: Speci men Type: BLOOD SPECIMEN Ordering Facility: [facility] Address: [address] [place] [address] Performed By: #### 5 7021-8, 11124-4 #### [facility] CLIA [id number] [address] [place] [address] 39204 Platelets (Bld) [#/Vol] 318 10*3/uL Normal 150-400 [facility] Comment on above: Order Comment: Speci men Type: BLOOD SPECIMEN Ordering Facility: [facility] Address: [address] [place] [address] Performed By: #### 5 7021-8, 84945-9 #### [facility] CLIA [id number] [address] [place] [address] 10081 RBC (Bld) [#/Vol] 4.60 10*6/uL Normal 3.90-5.20 [facility] Comment on above: Order Comment: Speci men Type: BLOOD SPECIMEN Ordering Facility: [facility] Address: [address] [place] [address] Performed By: #### 5 7021-8, 29084-5 #### [facility] CLIA [id number] [address] [place] [address] 99578 WBC (Bld) [#/Vol] 9.13 10*3/uL Normal 3.70-11.00 [facility] Comment on above: Order Comment: Speci men Type: BLOOD SPECIMEN Ordering Facility: [facility] Address: [address] [place] [address] Performed By: #### 5 7021-8, 47330-8 #### [facility] CLIA [id number] [address] [place] [address] 60682 CNOVSPon 04-14-2022 CNOVSP Visit (SP) Office ([place]) ROBINA RON ([id number]) 1950 F Date Time Provider Department 04/14/22 1:15 PM CHRISTI FINK During your visit today, we recorded the following information about you: Temperature Pulse Respiration Blood pressure 97.9 degrees 80/minute 16/minute 149/60 Weight Height 53.6 kg 1.524 m Christi Fink MD 04/14/2022 1:13 PM Signed PATIENT NAME: Robina Ron CLINIC NO.: [id number] ATTENDING PHYSICIAN: Christi Fink MD DATE OF SERVICE: April 14, [address] Sparks, here is an update on a follow up visit on female Robina Ron at the clinic 04/14/2022 Diagnosis: KARUNA Treatment History: 1. Venofer 04/14/2022 HPI: Robina Ron is a 71 year old year old female here for follow up. Feels tired and here to start IV Iron infusion. PAST MEDICAL HISTORY Diagnosis Date - A-fib (HCC) - Anemia - Asthma - Chronic low back pain with sciatica - COPD (chronic obstructive pulmonary disease) (HCC) - CVA (cerebral vascular accident) (HCC) - Diabetes mellitus (HCC) - Dyspnea - Factor V Leiden (HCC) - GERD (gastroesophageal reflux disease) - History of colon polyps - Hyperlipidemia - Hypertension - Hypokalemia - Leukocytosis - JARRET (obstructive sleep apnea) - PAD (peripheral artery disease) (HCC) - Pericardial effusion Social History Tobacco Use - Smoking status: Never Smoker - Smokeless tobacco: Never Used Substance Use Topics - Alcohol use: No - Drug use: No FAMILY HISTORY Problem Relation Age of Onset - Hypertension Mother - Leukemia Mother - other (Aortic Rupture) Father - other (Congestive Heart failure) Paternal Grandfather Past medical, social and family history reviewed without any changes. REVIEW OF SYSTEMS GENERAL: No weight loss, malaise or fevers. No night sweats. HEENT: Negative for headaches, No changes in hearing or vision, no nose bleeds or other nasal problems. RESPIRATORY: Negative for cough, wheezing and shortness of breath CARDIOVASCULAR: Negative for chest pain, leg swelling and palpitations GI: Negative for abdominal discomfort, blood in stools or black stools and change in bowel habits : Negative for dysuria, frequency and incontinence MUSCULOSKELETAL: Negative for joint pain or swelling, back pain, and muscle pain. SKIN: Negative for lesions, rash, and itching. HEMATOLOGY/LYMPHOLOGY Negative for prolonged bleeding, bruising easily, and swollen nodes. NEURO: Negative for numbness or tingling of hands/feet. No weakness. PHYSICAL EXAMINATION: BP 149/60 Pulse 80 Temp (Src) 97.9 (Temporal) Resp 16 Ht 5' 0 (1.52m) Wt 118 lb 3.2 oz (53.6kg) SpO2 95% BMI 23.08 kg/(m2). Wt 53.6 kg (118 lb 3.2 oz) BMI 23.08 kg/m2 Last 3 Encounter Wt Readings: Date: Wt: 04/14/2022 53.6 kg (118 lb 3.2 oz) 04/03/2022 53.6 kg (118 lb 3.2 oz) 11/10/2016 68 kg (150 lb) General appearance:ECOG PERFORMANCE STATUS: 1- Restricted in physically strenuous activity. Carries out light duty. Patient in NAD. Skin: Skin color, texture, turgor normal. No rashes or lesions. Eyes: Anicteric sclera. Pupils are equally round and reactive to light. Extraocular movements are intact. Lymph Nodes: No cervical, supraclavicular, axillary or inguinal adenopathy. Oropharynx: Lips, mucosa, and tongue normal. Back: No pain to percussion. Negative SLR test Lungs clear to auscultation, No wheezing or rhonchi Heart: RRR without murmur, gallop, or rubs. Abdomen soft, non-tender. No masses, organomegaly Extremities: No deformities. No edema Neuro: Gait and speech normal. Reflexes normal and symmetric. Muscular strength intact. Sensation grossly intact. Rectal: Deferred : Deferred LABS: Glucose (mg/dL) Date Value 04/14/2022 508 Potassium (mmol/L) Date Value 04/14/2022 3.6 Sodium (mmol/L) Date Value 04/14/2022 138 Chloride (mmol/L) Date Value 04/14/2022 103 CO2 (mmol/L) Date Value 04/14/2022 22 Creatinine (mg/dL) Date Value 04/14/2022 0.53 Creatinine, Whole Blood (iSTAT) (mg/dL) Date Value 11/10/2016 0.60 BUN (mg/dL) Date Value 04/14/2022 8 Anion Gap (mmol/L) Date Value 04/14/2022 13 Calcium, Total (mg/dL) Date Value 04/14/2022 9.1 Protein, Total (g/dL) Date Value 04/14/2022 5.4 11/10/2016 6.2 Albumin (g/dL) Date Value 04/14/2022 3.5 11/10/2016 4.2 Bilirubin, Total (mg/dL) Date Value 04/14/2022 0.2 11/10/2016 0.3 Alkaline Phosphatase (U/L) Date Value 04/14/2022 120 11/10/2016 134 AST (U/L) Date Value 04/14/2022 21 11/10/2016 13 ALT (U/L) Date Value 04/14/2022 15 11/10/2016 16 WBC Date Value Ref Range Status 04/14/2022 9.13 3.70 - 11.00 k/uL Final RBC Date Value Ref Range Status 04/14/2022 4.60 3.90 - 5.20 m/uL Final Hemoglobin Date Value Ref Range Status 04/14/2022 9.3 (L) 11.5 - 15.5 g/dL Final Hematocrit Date Valu (more content not included)... Normal [facility] Sandeep 04-14-2022 MATT Telephone ([place]) ROBINA RON ([id number]) 1950 F Date Time Provider Department 04/14/22 HCRISTY MELLO During your visit today, we recorded the following information about you: Christy Mello RN 04/14/2022 1:25 PM Signed Key Monteiro from [facility] Client Services calls to report critical results: Glucose - 506 Pt identifiers and results read back for verification. JOS Abernathy MD 04/14/2022 1:39 PM Signed Thanks. Can we have her PCP address this, Thanks Makenna Kendall RN 04/14/2022 2:00 PM Signed Glucose rechecked in the office and it was 373 by fingerstick. Call placed to Dr Joseph who is listed at pt's PCP. Jono states he has not worked in the office in 4 years now. Jono states pt is now seen by Dr Rainey at [facility]. Call placed to their office ([phone]) and message left requesting a call back. PSS: can you please update pt's PCP info. Thanks, JOS Bustamante Pss 04/14/2022 2:03 PM Signed PCP updated in chart Makenna Kendall RN 04/17/2022 10:39 AM Signed Call placed to [facility]. Office is closed. JOS Bustamante RN 04/21/2022 12:55 PM Signed Message left with Dr Rainey's medical program specialist again today regarding this pt and the urgency of this being addressed. Will try again later today if I don't hear back from their office. JOS Bustamante RN 04/21/2022 1:35 PM Signed Spoke with Pankaj at Dr Rainey's office. Recent records and labs faxed to [phone] per office request. JOS Bustamante RN 04/21/2022 1:48 PM Signed Pt has follow up appointment with Dr Rainey tomorrow. Makenna Kendall RN Allergies As of Date: 04/14/2022 Noted Allergy Reaction PERCOCET (OXYCODONE-ACETAMINOP HEN)03/31/2016 1 - Mental Status Change 10 - Anaphylaxis SPIRIVA WITH HANDIHALER (TIOTROPI*03/31/2016 16 - Unknown SYMBICORT (BUDESONIDE-FORMOTERO L) 03/31/2022 14 - Other: See Comments Comments: Tongue swelling Date Reviewed: 04/14/2022 Reviewed by: Ninoska Larose Ma - Fully Assessed Reason for Visit: Critical Results [1705] Cmt: Glucose Prescriptions as of 04/21/2022 - insulin NPH hum/reg insulin hm (HUMULIN 70/30 U-100 KWIKPEN SUBCUTANEOUS) Inject subcutaneously with meals and at bedtime. S/S coverage AC/HS per pt - cyanocobalamin (VITAMIN B-12) 1,000 mcg tab Take 1,000 mcg by mouth once daily. - lisinopril (ZESTRIL, PRINIVIL) 10 mg tablet Take 10 mg by mouth once daily. - ferrous sulfate EC 324 mg (65 mg iron) TbEC Take 324 mg by mouth daily with breakfast. - metoprolol tartrate, short acting, (LOPRESSOR) 50 mg tablet Take 50 mg by mouth twice daily. - dilTIAZem CD (CARDIZEM CD) 240 mg 24 hr capsule Take 240 mg by mouth once daily. - metFORMIN ER (FORTAMET) 1,000 mg 24 hr tablet Take 1,000 mg by mouth twice daily. - traZODone (DESYREL) 50 mg tablet Take 50 mg by mouth daily at bedtime. - albuterol sulfate (VENTOLIN HFA INHALATION) Inhale as instructed as needed. - lovastatin (MEVACOR) 20 mg tablet Take 20 mg by mouth daily at bedtime. - oxybutynin (DITROPAN) 5 mg tablet Take 5 mg by mouth three times daily. - pantoprazole DR (PROTONIX) 40 mg tablet Take 40 mg by mouth once daily. Problem List As Of Date 04/14/2022 Noted Resolved CLL (chronic lymphocytic leukemia) (HCC) [C91.1*03/31/2016 Iron deficiency anemia due to chronic blood los*04/03/2022 Encounter Status:Closed by MAKENNA KENDALL on 04/21/22 Normal [facility] metabolic 2000 panelon 08-02-2022 Albumin [Mass/Vol] 3.5 g/dL Low 3.9-4.9 [facility] Comment on above: Order Comment: Speci men Type: BLOOD SPECIMEN Ordering Facility: [facility] Address: [address] [address] Performed By: #### 2 4323-8 #### [facility] CLIA [id number] [address] [place] [address] ALP [Catalytic activity/Vol] 120 U/L Normal 34-123 [facility] Comment on above: Order Comment: Speci men Type: BLOOD SPECIMEN Ordering Facility: [facility] Address: [address] [place] [address] Performed By: #### 2 4323-8 #### [facility] CLIA [id number] [address] [place] [address] 85169 ALT [Catalytic activity/Vol] 15 U/L Normal 7-38 [facility] Comment on above: Order Comment: Speci men Type: BLOOD SPECIMEN Ordering Facility: [facility] Address: [address] [place] [address] Performed By: #### 2 4323-8 #### [facility] CLIA [id number] [address] [place] [address] 90985 Anion gap [Moles/Vol] 13 mmol/L Normal 9-18 [facility] Comment on above: Order Comment: Speci men Type: BLOOD SPECIMEN Ordering Facility: [facility] Address: [address] [address] Performed By: #### 2 4323-8 #### [facility] CLIA [id number] [address] [place] [address] AST [Catalytic activity/Vol] 21 U/L Normal 13-35 [facility] Comment on above: Order Comment: Speci men Type: BLOOD SPECIMEN Ordering Facility: [facility] Address: [address] [address] Performed By: #### 2 4323-8 #### [facility] CLIA [id number] [address] [place] [address] Bilirubin [Mass/Vol] 0.2 mg/dL Normal 0.2-1.3 [facility] Comment on above: Order Comment: Speci men Type: BLOOD SPECIMEN Ordering Facility: [facility] Address: [address] [place] [address] Performed By: #### 2 4323-8 #### [facility] CLIA [id number] [address] [place] [address] Calcium [Mass/Vol] 9.1 mg/dL Normal 8.5-10.2 [facility] Comment on above: Order Comment: Speci men Type: BLOOD SPECIMEN Ordering Facility: [facility] Address: [address] [place] [address] Performed By: #### 2 4323-8 #### [facility] CLIA [id number] [address] [place] [address] 33453 Chloride [Moles/Vol] 103 mmol/L Normal 97-105 [facility] Comment on above: Order Comment: Speci men Type: BLOOD SPECIMEN Ordering Facility: [facility] Address: [address] [place] [address] Performed By: #### 2 4323-8 #### [facility] CLIA [id number] [address] [place] [address] 70160 CO2 [Moles/Vol] 22 mmol/L Normal 22-30 [facility] Comment on above: Order Comment: Speci men Type: BLOOD SPECIMEN Ordering Facility: [facility] Address: [address] [place], [place] [address] Performed By: #### 2 4323-8 #### [facility] CLIA [id number] [address] [place] [address] 56799 Creatinine [Mass/Vol] 0.53 mg/dL Low 0.58-0.96 [facility] Comment on above: Order Comment: Speci men Type: BLOOD SPECIMEN Ordering Facility: [facility] Address: [address] [place] [address] Performed By: #### 2 4323-8 #### [facility] CLIA [id number] [address] [place] [address] 88719 ESTIMATED GLOMERULAR FILTRATION RATE 99 mL/min/1.73m??? Normal >=60 [facility] Comment on above: Order Comment: Speci men Type: BLOOD SPECIMEN Ordering Facility: [facility] Address: [address] [place] [address] Result Comment: Kaylynn mated Glomerular Filtration Rate (eGFR) is calculated using the 2020 CKD-EPI creatinine equation. This equation utilizes serum creatinine, sex, and age as parameters. The creatinine assay has traceable calibration to isotope dilution-mass spectrometry. Refer to KDIGO guidelines for clinical interpretation. In patients with unstable renal function, e.g. those with acute kidney injury, the eGFR may not accurately reflect actual GFR. Performed By: #### 2 4323-8 #### [facility] CLIA [id number] [address] [place] [address] 37392 Glucose [Mass/Vol] 508 mg/dL High 74-99 [facility] Comment on above: Order Comment: Speci men Type: BLOOD SPECIMEN Ordering Facility: [facility] Address: [address] [place] [address] Result Comment: The [place] Diabetes [employer] (ADA) provides guidance for cutoff values for fasting glucose and random glucose. The ADA defines fasting as no caloric intake for at least 8 hours. Fasting plasma glucose results between 100 to 125 mg/dL indicate increased risk for diabetes (prediabetes). Fasting plasma glucose results greater than or equal to 126 mg/dL meet the criteria for diagnosis of diabetes. In the absence of unequivocal hyperglycemia, results should be confirmed by repeat testing. In a patient with classic symptoms of hyperglycemia or hyperglycemic crisis, random plasma glucose results greater than or equal to 200 mg/dL meet the criteria for diagnosis of diabetes. Reference: Standards of Medical Care in Diabetes 2016, [place] [employer]. Diabetes Care. 2016.39(Suppl 1). Performed By: #### 2 4323-8 #### [facility] CLIA [id number] [address] [place] [address] 64770 Potassium [Moles/Vol] 3.6 mmol/L Low 3.7-5.1 [facility] Comment on above: Order Comment: Speci men Type: BLOOD SPECIMEN Ordering Facility[facility] Address: [address] [place] [address] Performed By: #### 2 4323-8 #### [facility] CLIA [id number] [address] [place] [address] 63063 Protein [Mass/Vol] 5.4 g/dL Low 6.3-8.0 [facility] Comment on above: Order Comment: Speci men Type: BLOOD SPECIMEN Ordering Facility[facility] Address: [address] [place] [address] Performed By: #### 2 4323-8 #### [facility] CLIA [id number] [address] [place] [address] 88342 Sodium [Moles/Vol] 138 mmol/L Normal 136-144 [facility] Comment on above: Order Comment: Speci men Type: BLOOD SPECIMEN Ordering Facility[facility] Address: [address] [place] [address] Performed By: #### 2 4323-8 #### [facility] CLIA [id number] [address] [place] [address] 87060 Urea nitrogen [Mass/Vol] 8 mg/dL Normal 7-21 [facility] Comment on above: Order Comment: Speci men Type: BLOOD SPECIMEN Ordering Facility: [facility] Address: [address] [place] [address] Performed By: #### 2 4323-8 #### [facility] CLIA [id number] [address] [place] [address] 09639 Ferritin SerPl-mCncon 2021 Ferritin [Mass/Vol] 15.5 ng/mL Normal 14.7-205.1 [facility] Comment on above: Order Comment: Speci men Type: BLOOD SPECIMEN Ordering Facility: [facility] Address: [address] [place] [address] [place] [address] Performed By: #### 2 276-4, 83805-1 #### [facility] CLIA [id number] [address] [place] [address] [place] GLUCOSE, BLOOD (POC)on 04-14 Glucose [Mass/Vol] 373 mg/dL Abnormal 74 - 99 mg/dL [facility] Iron and Iron binding capaci ty panelon 04-14-2022 Iron [Mass/Vol] 17 ug/dL Low 41-186 [facility] Comment on above: Order Comment: Speci men Type: BLOOD SPECIMEN Ordering Facility: [facility] Address: [address] [place], [place] [address] Performed By: #### 2 276-4, 25442-3 #### [facility] CLIA [id number] [address] [place] [address] [place] Iron binding capacity [Mass/Vol] 337 ug/dL Normal 232-386 [facility] Comment on above: Order Comment: Speci men Type: BLOOD SPECIMEN Ordering Facility: [facility] Address: [address] [place] [address] Performed By: #### 2 276-4, 88633-4 #### [facility] CLIA [id number] [address] [place] [address] [place] Iron/TIBC [Molar ratio] 5.0 % Low 15.0-57.0 [facility] Comment on above: Order Comment: Speci men Type: BLOOD SPECIMEN Ordering Facility: [facility] Address: [address] [place] [address] Performed By: #### 2 276-4, 91743-6 #### [facility] CLIA [id number] [address] [place] [address] [place] Retics #on 04-14-2022 Reticulocytes (Bld) [#/Vol] 0.28706 10*3/uL Normal 0.018-0.100 [facility] Comment on above: Order Comment: Speci men Type: BLOOD SPECIMEN Ordering Facility: [facility] Address: [facility] [place] [address] [address] Performed By: #### 5 7021-8, 62765-1 #### [facility] CLIA [id number] [address] [place] [address]76 Reticulocytes (Bld) [#/Vol]o n 04-14-2022 Reticulocytes/100 RBC (Bld) 1.8 % Normal 0.4-2.0 [facility] Comment on above: Order Comment: Speci men Type: BLOOD SPECIMEN Ordering Facility[facility] Address: [facility] [place] [address] [address] Performed By: #### 5 7021-8, 08640-5 #### [facility] CLIA [id number] [address] [place], [place] [address] CBC AUTO DIFFon 04-08-2022 BASO # 0.0 103/ul Normal 0.0-0.1 [facility] Comment on above: Performed By: #### A 1C #### [facility] [address] [address] [address] Julisa Lowe Basophils/100 WBC (Bld) 0.4 % Normal 0.2-2.0 [facility] Comment on above: Performed By: #### A 1C #### [facility] [address] [address] [address] Julisa Lowe EO # 0.2 103/ul Normal 0.0-0.7 [facility] Comment on above: Performed By: #### A 1C #### [facility] [address] [address] [address] Julisa Lowe Eosinophils/100 WBC (Bld) 1.7 % Normal 0.9-7.0 [facility] Comment on above: Performed By: #### A 1C #### [facility] [address] [place] [address] Dr. Julisa Lowe Erythrocyte distribution width (RBC) [Ratio] 20.8 % Critically high 11.0-15.0 [facility] Comment on above: Performed By: #### A 1C #### [facility] [address] [address] [address] Julisa Lowe Hematocrit (Bld) [Volume fraction] 34.9 % Critically low 36.0-48.0 [facility] Comment on above: Performed By: #### A 1C #### [facility] [address] [address] [address] Julisa Lowe Hemoglobin (Bld) [Mass/Vol] 10.0 g/dL Critically low 12.0-16.0 [facility] Comment on above: Performed By: #### A 1C #### [facility] [address] [place] [address] Dr. Julisa Lowe IG # 0.08 10e3/ul Critically high 0.00-0.03 [facility] Comment on above: Performed By: #### A 1C #### [facility] [address] [place] [address] Dr. Julisa Lowe IG % 0.7 % Critically high 0.0-0.5 [facility] Comment on above: Performed By: #### A 1C #### [facility] [address] [place] [address] Dr. Julisa Lowe LYMPH # 3.6 103/ul Normal 1.2-3.8 [facility] Comment on above: Performed By: #### A 1C #### [facility] [address] [place] [address] Dr. Julisa Lowe Lymphocytes/100 WBC (Bld) 33.3 % Normal 20.5-60.0 [facility] Comment on above: Performed By: #### A 1C #### [facility] [address] [place] [address] Dr. Julisa Lowe MANUAL DIFF REQ NO Normal [facility] Comment on above: Performed By: #### A 1C #### [facility] [address] [place] [address] Dr. Julisa Lowe MCH (RBC) [Entitic mass] 20.2 pg Critically low 26.7-34.0 [facility] Comment on above: Performed By: #### A 1C #### [facility] [address] [address] [address] Julisa Lowe MCHC (RBC) [Mass/Vol] 28.7 g/dL Critically low 29.9-35.2 [facility] Comment on above: Performed By: #### A 1C #### [facility] [address] [place] [address] Dr. Julisa Lowe MCV (RBC) [Entitic vol] 70.6 fL Critically low 81.0-99.0 [facility] Comment on above: Performed By: #### A 1C #### [facility] [address] [place] [address] Dr. Julisa Lowe MONO # 0.6 103/ul Normal 0.3-0.8 [facility] Comment on above: Performed By: #### A 1C #### [facility] [address] [place] [address] Dr. Julisa Lowe Monocytes/100 WBC (Bld) 5.4 % Normal 1.7-12.0 [facility] Comment on above: Performed By: #### A 1C #### [facility] [address] [place] [address] Dr. Julisa Lowe NEUT # 6.4 103/ul Normal 1.4-6.5 [facility] Comment on above: Performed By: #### A 1C #### [facility] [address] [place] [address] Dr. Julisa Lowe Neutrophils/100 WBC (Bld) 58.5 % Normal 43.0-75.0 [facility] Comment on above: Performed By: #### A 1C #### [facility] [address] [place] [address] Dr. Julisa Lowe Platelet mean volume (Bld) [Entitic vol] 8.1 fL Critically low 9.5-13.5 [facility] Comment on above: Performed By: #### A 1C #### [facility] [address] [place] [address] Dr. Julisa Lowe PLT 325 103/ul Normal 150-450 [facility] Comment on above: Performed By: #### A 1C #### [facility] [address] [address] [address] Julisa Lowe RBC 4.94 106/ul Normal 4.20-5.40 [facility] Comment on above: Performed By: #### A 1C #### [facility] [address] [address] [address] Julisa Lowe WBC 10.9 103/ul Normal 4.0-11.0 [facility] Comment on above: Performed By: #### A 1C #### [facility] [address] [address] [address] Julisa Lowe FERRITINon 04-08-2022 Ferritin [Mass/Vol] 15.0 ng/mL Normal 8.0-252.0 [facility] Comment on above: Performed By: #### A 1C #### [facility] [address] [address] [address] Julisa Lowe CNPNon 04-06-2022 CNPN Telephone (NCCAP) ARIADNEROBINA Ivette ([id number]) 1950 F Date Time Provider Department 04/06/22 [facility] During your visit today, we recorded the following information about you: Makenna Hidalgo Sec 04/06/2022 7:49 AM Signed Please send records to [facility] office thanks! MD Tj Thompson; Makenna Hidalgo Sec Please refer her to GI for an upper endoscopy. ?Thanks Adrienne Weinstein Pss 04/06/2022 8:12 AM Signed Gladys: Information ready for you. Adrienne Weinstein Pss Shaye Gonzalez [facility] 04/06/2022 8:57 AM Signed Records faxed to Dr. Rich. Adrienne Weinstein Pss 04/09/2022 8:40 AM Signed Called [facility] Rosalina spoke with Kenyatta. She states they have received this referral and their referral dept will be calling patient soon to schedule. I will call back sometime next week check on status of this referral. Adrienne Weinstein Pss Adrienne Weinstein Pss 04/13/2022 1:18 PM Signed Called Angélica Romano spoke with Kenyatta. She states they have called left patient message to call them back to schedule. Adrienne Weinstein Pss Adrienne Weinstein Pss 04/16/2022 9:07 AM Signed Called Angélica Romano spoke with Kenyatta. She states they have patient scheduled to see Dr Benavidez on 05/12 for EGD. Adrienne Weinstein Pss Allergies As of Date: 04/06/2022 Noted Allergy Reaction PERCOCET (OXYCODONE-ACETAMINOP HEN)03/31/2016 1 - Mental Status Change 10 - Anaphylaxis SPIRIVA WITH HANDIHALER (TIOTROPI*03/31/2016 16 - Unknown SYMBICORT (BUDESONIDE-FORMOTERO L) 03/31/2022 14 - Other: See Comments Comments: Tongue swelling Date Reviewed: 04/04/2022 Reviewed by: Christi Fink MD - Fully Assessed Reason for Visit: Appointment Confirmation [[id number]] Prescriptions as of 04/16/2022 - insulin NPH hum/reg insulin hm (HUMULIN 70/30 U-100 KWIKPEN SUBCUTANEOUS) Inject subcutaneously with meals and at bedtime. S/S coverage AC/HS per pt - cyanocobalamin (VITAMIN B-12) 1,000 mcg tab Take 1,000 mcg by mouth once daily. - lisinopril (ZESTRIL, PRINIVIL) 10 mg tablet Take 10 mg by mouth once daily. - ferrous sulfate EC 324 mg (65 mg iron) TbEC Take 324 mg by mouth daily with breakfast. - metoprolol tartrate, short acting, (LOPRESSOR) 50 mg tablet Take 50 mg by mouth twice daily. - dilTIAZem CD (CARDIZEM CD) 240 mg 24 hr capsule Take 240 mg by mouth once daily. - metFORMIN ER (FORTAMET) 1,000 mg 24 hr tablet Take 1,000 mg by mouth twice daily. - traZODone (DESYREL) 50 mg tablet Take 50 mg by mouth daily at bedtime. - albuterol sulfate (VENTOLIN HFA INHALATION) Inhale as instructed as needed. - lovastatin (MEVACOR) 20 mg tablet Take 20 mg by mouth daily at bedtime. - oxybutynin (DITROPAN) 5 mg tablet Take 5 mg by mouth three times daily. - pantoprazole DR (PROTONIX) 40 mg tablet Take 40 mg by mouth once daily. Problem List As Of Date 04/06/2022 Noted Resolved CLL (chronic lymphocytic leukemia) (HCC) [C91.1*03/31/2016 Iron deficiency anemia due to chronic blood los*04/03/2022 Encounter Status:Closed by TJ HUNTER on 04/16/22 Normal [facility] CNOVSPon 04-03-2022 CNOVSP Visit (SP) Office ([place]) ROBINA RON ([id number]) 1950 F Date Time Provider Department 04/03/22 4:30 PM CHRISTI FINK During your visit today, we recorded the following information about you: Temperature Pulse Respiration Blood pressure 97.4 degrees 90/minute 16/minute 107/38 Weight Height 53.6 kg 1.524 m Christi Fink MD 04/04/2022 11:07 AM Signed PATIENT NAME: Robina Ron CLINIC NO.: [id number] ATTENDING PHYSICIAN: Christi Fink MD DATE OF SERVICE: April 03, [address] Shaikh Sparks thank you for referring Mrs. Robina Ron for an opinion regarding iron deficiency. CHIEF COMPLAINT: I am tired HPI: Robina Ron is a 71 year old year old female with past medical history significant for diabetes, atrial fibrillation for which she has been off Eliquis since July 2021, hypertension, previous history of CVA which was attributed to a factor V Leiden mutation for which she had been on Coumadin and subsequently transitioned to Eliquis which she has been off of as well as chronic obstructive pulmonary disease. There is also mention of a history of CLL based on a flow cytometry but she has not had absolute lymphocytosis and therefore may just have an abnormal clone which was identified on a previous flow cytometry. She is referred to our clinic due to microcytic anemia. She denies any melena or hematochezia. She denies any weight loss. She denies any changes in her bowel habits. She denies any vaginal bleeding. Her diet has been normal. She had a colonoscopy approximately 6 months ago which demonstrated some polyps and a year follow-up was recommended. She does not recall any history of upper endoscopy. She denies any history of heavy NSAID use. In January 2022 she underwent some laboratory assessments including hemoglobin of 8.5, MCV of 70. Platelets were within normal limits. White count was slightly elevated at 12.4 mostly neutrophils. She did not have lymphocytosis. Additional laboratory studies shows a ferritin of 7 B12 193. She was started on oral B12 replacement as well as oral iron replacement. Her anemia had worsened compared to a month prior. Her TSH and folic acid levels were normal. She does complain of ongoing fatigue. Current Outpatient Medications Medication Sig - cyanocobalamin (VITAMIN B-12) 1,000 mcg tab Take 1,000 mcg by mouth once daily. - lisinopril (ZESTRIL, PRINIVIL) 10 mg tablet Take 5 mg by mouth once daily. - ferrous sulfate EC 324 mg (65 mg iron) TbEC Take 324 mg by mouth daily with breakfast. - metoprolol tartrate, short acting, (LOPRESSOR) 50 mg tablet Take 50 mg by mouth twice daily. - dilTIAZem CD (CARDIZEM CD) 240 mg 24 hr capsule Take 240 mg by mouth once daily. - metFORMIN ER (FORTAMET) 1,000 mg 24 hr tablet Take 1,000 mg by mouth twice daily. - traZODone (DESYREL) 50 mg tablet Take 50 mg by mouth daily at bedtime. - albuterol sulfate (VENTOLIN HFA INHALATION) Inhale as instructed as needed. - lovastatin (MEVACOR) 20 mg tablet Take 40 mg by mouth daily at bedtime. - oxybutynin (DITROPAN) 5 mg tablet Take 5 mg by mouth three times daily. - pantoprazole DR (PROTONIX) 40 mg tablet Take 40 mg by mouth once daily. - rOPINIRole (REQUIP) 0.5 mg tablet Take 0.5 mg by mouth daily at bedtime. - DULoxetine (CYMBALTA) 20 mg capsule Take 20 mg by mouth twice daily. - dulaglutide (TRULICITY) 1.5 mg/0.5 mL pen injector Inject 1.5 mg subcutaneously one time a week. - dilTIAZem (CARDIZEM) 120 mg tablet Take 120 mg by mouth once daily. - ALBUTEROL SULFATE HFA INHALATION Inhale as instructed as needed. - ACETAMINOPHEN ORAL Take by mouth as needed. - ELIQUIS 5 mg tab tab(s) (Patient not taking: Reported on 03/31/2022 ) - carvedilol (COREG) 3.125 mg tablet Take 3.125 mg by mouth twice daily with meals. (Patient not taking: Reported on 03/31/2022 ) - cyclobenzaprine (FLEXERIL) 5 mg tablet Take 5 mg by mouth three times daily as needed. (Patient not taking: Reported on 03/31/2022 ) - gabapentin (NEURONTIN) 600 mg tablet Take 600 mg by mouth three times daily. (Patient not taking: Reported on 03/31/2022) - magnesium oxide 400 mg cap Take 400 mg by mouth once daily. (Patient not taking: Reported on 03/31/2022 ) - Ayxcn-9-JWV-EPA-Fish Oil 1,000 mg (120 mg-180 mg) cap Take 2 g by mouth twice daily. (Patient not taking: Reported on 03/31/2022 ) - potassium chloride ER (K-DUR, KLOR-CON) 20 mEq tablet Take 20 mEq by mouth twice daily. - INSULIN DETEMIR (LEVEMIR SUBCUTANEOUS) Inject 50 Units subcutaneously daily at bedtime. (Patient not taking: Reported on 03/31/2022 ) - INSULIN ASPART (NOVOLOG SUBCUTANEOUS) Inject subcutaneously as needed. Dose varies. Joselyn Aviles (Patient not taking: Reported on 03/31/2022 ) No current facility-administered medications for this visit. ALLERGIES Allergen Reactions - Percocet [Oxycodone* Mental (more content not included)... Normal [facility] ECHO LIMITED STUDYon 02-06-2 022 ECHO LIMITED STUDY Patient: ROBINA RON Exam Date: 02/06/2022 : 1950 Gender:F Ordering : EDD WADE Admission #: [id number] Family : Order #: [id number] CLICK HERE TO VIEW EXAM ECHOCARDIOGRAM REPORT PROCEDURE: CARDIO PULMONARY ECHO LIMITED STUDY INDICATIONS: Pericardial effusion COMPARISON: None. DESCRIPTION: Limited ECHOCARDIOGRAM Real-time transthoracic echocardiography with 2D and M-mode performed. QUALITY: Technical quality was good. LEFT VENTRICLE: Normal chamber size. Mild concentric left ventricular hypertrophy. LV EF: Normal left ventricular ejection fraction, (>55%). LEFT ATRIUM: Mild dilatation. RIGHT ATRIUM: Mild dilatation. RIGHT VENTRICLE: Normal chamber size. TRICUSPID VALVE: Normal mobility and thickness. MITRAL VALVE: Normal mobility and thickness. Mild mitral annular calcification. AORTIC VALVE: Normal trileaflet appearance. Normal leaflet mobility. AORTIC ROOT: Normal diameter and appearance. PULMONIC VALVE: Normal thickness and mobility. PERICARDIUM: Small (0.98 cm) circumferential pericardial effusion. No obvious signs of chamber compression. IVC: Collapses with inspirations. CONCLUSION: Global left ventricular systolic function is normal; visually estimated ejection fraction is 55 to 60%. Mild left ventricular hypertrophy. Mild biatrial enlargement. The right ventricle is normal in size and systolic function. A small, circumferential pericardial effusion is seen. No obvious signs of chamber compression. A limited echocardiogram was performed. Adult Echocardiography Procedure Report Left Ventricle LVEDD (3.7 - 5.6 cm): 4.60 cm LVESD (2.2 - 4.0 cm): 3.38 cm LVIVS thickness (0.6 - 1.2 cm): 1.18 cm LVPW thickness (0.5 - 1.0 cm): 7.71 mm Left Ventricular Ejection Fraction: 51.90 % Left Atrium LA Volume Index (2D A2C): 38.30 ml/m2 Left Atrium Systolic Dimension: 4.00 cm Left Atrium Systolic Area(A2C): 20.80 cm2 Left Atrium Systolic Area(A4C): 21.60 cm2 Left Atrium Systolic Volume(A2C): 08883 mm3 Left Atrium Systolic Volume(A4C): 00694 mm3 Mitral Valve Right Ventricle Aorta AO Root Diam: 3.10 cm Aortic Valve Tricuspid Valve Pulmonic Valve Right Atrium Dictated by: Alfred Haque M.D. on 02/06/2022 at 15:55 Approved by: Alfred Haque M.D. on 02/06/2022 at 16:11 Normal [facility] CBC AUTO DIFFon 01-23-2022 BASO # 0.0 103/ul Normal 0.0-0.1 [facility] Comment on above: Performed By: #### A 1C #### [facility] [address] [address] [address] Julisa Lowe Basophils/100 WBC (Bld) 0.3 % Normal 0.2-2.0 [facility] Comment on above: Performed By: #### A 1C #### [facility] [address] [address] [address] Julisa Lowe EO # 0.1 103/ul Normal 0.0-0.7 [facility] Comment on above: Performed By: #### A 1C #### [facility] [address] [place] [address] Dr. Julisa Lowe Eosinophils/100 WBC (Bld) 1.0 % Normal 0.9-7.0 [facility] Comment on above: Performed By: #### A 1C #### [facility] [address] [address] [address] Julisa Lowe Erythrocyte distribution width (RBC) [Ratio] 18.6 % Critically high 11.0-15.0 [facility] Comment on above: Performed By: #### A 1C #### [facility] [address] [place] [address] Dr. Julisa Lowe Hematocrit (Bld) [Volume fraction] 29.6 % Critically low 36.0-48.0 [facility] Comment on above: Performed By: #### A 1C #### [facility] [address] [address] [address] Julisa Lowe Hemoglobin (Bld) [Mass/Vol] 8.5 g/dL Critically low 12.0-16.0 [facility] Comment on above: Performed By: #### A 1C #### [facility] [address] [address] [address] Julisa Lowe IG # 0.09 10e3/ul Critically high 0.00-0.03 [facility] Comment on above: Performed By: #### A 1C #### [facility] [address] [place] [address] Dr. Julisa Lowe IG % 0.7 % Critically high 0.0-0.5 [facility] Comment on above: Performed By: #### A 1C #### [facility] [address] [place] [address] Dr. Julisa Lowe LYMPH # 3.2 103/ul Normal 1.2-3.8 [facility] Comment on above: Performed By: #### A 1C #### [facility] [address] [place] [address] Dr. Julisa Lowe Lymphocytes/100 WBC (Bld) 25.5 % Normal 20.5-60.0 [facility] Comment on above: Performed By: #### A 1C #### [facility] [address] [place] [address] Dr. Julisa Lowe MANUAL DIFF REQ NO Normal [facility] Comment on above: Performed By: #### A 1C #### [facility] [address] [place] [address] Dr. Julisa Lowe MCH (RBC) [Entitic mass] 20.2 pg Critically low 26.7-34.0 [facility] Comment on above: Performed By: #### A 1C #### [facility] [address] [place] [address] Dr. Julisa Lowe MCHC (RBC) [Mass/Vol] 28.7 g/dL Critically low 29.9-35.2 [facility] Comment on above: Performed By: #### A 1C #### [facility] [address] [place] [address] Dr. Julisa Lowe MCV (RBC) [Entitic vol] 70.5 fL Critically low 81.0-99.0 [facility] Comment on above: Performed By: #### A 1C #### [facility] [address] [place] [address] Dr. Julisa Lowe MONO # 0.6 103/ul Normal 0.3-0.8 [facility] Comment on above: Performed By: #### A 1C #### [facility] [address] [place] [address] Dr. Julisa Lowe Monocytes/100 WBC (Bld) 4.8 % Normal 1.7-12.0 [facility] Comment on above: Performed By: #### A 1C #### [facility] [address] [place] [address] Dr. Julisa Lowe NEUT # 8.4 103/ul Critically high 1.4-6.5 [facility] Comment on above: Performed By: #### A 1C #### [facility] [address] [place] [address] Dr. Julisa Lowe Neutrophils/100 WBC (Bld) 67.7 % Normal 43.0-75.0 [facility] Comment on above: Performed By: #### A 1C #### [facility] [address] [place] [address] Dr. Julisa Lowe Platelet mean volume (Bld) [Entitic vol] 7.9 fL Critically low 9.5-13.5 [facility] Comment on above: Performed By: #### A 1C #### [facility] [address] [place] [address] Dr. Julisa Lowe PLT 252 103/ul Normal 150-450 [facility] Comment on above: Performed By: #### A 1C #### [facility] [address] [place] [address] Dr. Julisa Lowe RBC 4.20 106/ul Normal 4.20-5.40 [facility] Comment on above: Performed By: #### A 1C #### [facility] [address] [place] [address] Dr. Julisa Lowe WBC 12.4 103/ul Critically high 4.0-11.0 [facility] Comment on above: Performed By: #### A 1C #### [facility] [address] [place] [address] Dr. Julisa Lowe FERRITINon 01-23-2022 Ferritin [Mass/Vol] 7.0 ng/mL Critically low 8.0-252.0 [facility] Comment on above: Performed By: #### P OCGLUC #### [facility] [address] [place] [address] Dr. Julisa Lowe GLYCOHEMOGLOBIN A1Con 2021 ADA RECOMMENDATION SEE BELOW Normal [facility] Comment on above: Result Comment: ADA RECOMMENDED LIMIT 4.0 - 6.0 ADA THERAPEUTIC TARGET < 7.0 ACTION SUGGESTED > 7.0 Performed By: #### A 1C #### [facility] [address] [place] [address] Dr. Julisa Lowe Glucose [Mass/Vol] 197 mg/dL Normal [facility] Comment on above: Performed By: #### A 1C #### [facility] [address] [place] [address] Dr. Julisa Lowe HbA1c (Bld) [Mass fraction] 8.5 % Critically high 4.5-6.2 [facility] Comment on above: Performed By: #### A 1C #### [facility] [address] [place] [address] Dr. Julisa Lowe TSHon 01-23-2022 TSH 0.501 uIU/mL Normal 0.358-3.740 [facility] Comment on above: Performed By: #### A 1C #### [facility] [address] [place] [address] Dr. Julisa Lowe TSH RANGE SEE BELOW Normal [facility] Comment on above: Result Comment: <0.3 4 UIU/ml HYPERTHYROID 0.34-5.60 UIU/ml EUTHYROID >5.60 UIU/ml HYPOTHYROID Performed By: #### A 1C #### [facility] [address] [place] [address] Dr. Julisa Lowe VIT B12 AND FOLATEon 022 Cobalamin (Vitamin B12) [Mass/Vol] 193.0 pg/mL Normal 193.0-986.0 [facility] Comment on above: Performed By: #### P OCGLUC #### [facility] [address] [place] [address] Dr. Julisa Lowe FOLATE 12.90 ng/mL Normal 8.60-58.90 [facility] Comment on above: Performed By: #### P OCGLUC #### [facility] [address] [place] [address] Dr. Julisa Lowe CULTURE URINEon 12-23-2021 CULTURE URINE Isolate 1 Escherichia coli >100,000 cfu/mL of ORGANISM 1 Escherichia coli ANTIBIOTIC M.I.C RX STATUS Ampicillin >=32 R F Ampicillin/Sulbactam >=32 R F Piperacillin/Tazobact am <=4 S F Cefazolin <=4 S F Ceftazidime <=1 S F Ceftriaxone <=1 S F Ertapenem <=0.5 S F Imipenem <=0.25 S F Amikacin <=2 S F Gentamicin >=16 R F Tobramycin 8 I F Ciprofloxacin <=0.25 S F Levofloxacin <=0.12 S F Nitrofurantoin <=16 S F Trimethoprim/Sulfamet hoxazole >=320 R F Normal [facility] Comment on above: Performed By: #### H STROPN #### [facility] [address] [place] [address] Dr. Julisa Lowe NM STRESS/REST MULTIon 12-22 NM STRESS/REST MULTI Patient: ROBINA RON Exam Date: 12/22/2021 : 1950 Gender:F Ordering : EDD WADE Admission #: [id number] Family : DR CATHERINE SANCHEZ . Order #: [id number] CLICK HERE TO VIEW EXAM RADIOLOGY REPORT PROCEDURE: RADIONUCLIDE IMAGING STRESS/REST MULTI COMPARISON: None. INDICATIONS: Chest pain, hypertension TECHNIQUE: Exam Description: Stress/Rest one day protocol gated SPECT Rest Imagin.5 mCi Tc-99m Cardiolite IV on 12/22/2021 Stress Imaging 30.3 mCi Tc-99m Cardiolite IV on 12/22/2021 Exercise Protocol: 0.4 mg Lexiscan given IV Heart Rate (bpm): Rest: 95 Max: 123 PMHR: 82 Blood Pressure: Rest: 152/70 Max: 152/70 Symptoms: Rest and peak stress ECG findings were normal and the exercise portion of the study was normal per attending physician Dr. Haque . For more details please see separate cardiac stress test report. FINDINGS: QUALITY OF STUDY: Excellent. PERFUSION DEFECT: None. LOCATION: N/A SIZE: N/A. SEVERITY: N/A. TYPE: N/A. WALL MOTION: Normal. LV SIZE: Normal. 55 mL. TID / TCD: None; 0.9 LVEF: Normal. Calculated EF 79%. SUMMARY: Myocardial perfusion imaging study is NORMAL. CONCLUSION: 1. Normal nuclear medicine myocardial perfusion scan. Dictated by: Brayden Keller M.D. on 12/22/2021 at 12:42 Approved by: Brayden Keller M.D. on 12/22/2021 at 12:45 Normal [facility] CBC AUTO DIFFon 12-21-2021 BASO # 0.0 103/ul Normal 0.0-0.1 [facility] Comment on above: Performed By: #### A 1C #### [facility] [address] [place] [address] Dr. Julisa Lowe Basophils/100 WBC (Bld) 0.4 % Normal 0.2-2.0 [facility] Comment on above: Performed By: #### A 1C #### [facility] [address] [place] [address] Dr. Julisa Lowe EO # 0.1 103/ul Normal 0.0-0.7 [facility] Comment on above: Performed By: #### A 1C #### [facility] [address] [place] [address] Dr. Julisa Lowe Eosinophils/100 WBC (Bld) 1.3 % Normal 0.9-7.0 [facility] Comment on above: Performed By: #### A 1C #### [facility] [address] [place] [address] Dr. Julisa Lowe Erythrocyte distribution width (RBC) [Ratio] 19.7 % Critically high 11.0-15.0 [facility] Comment on above: Performed By: #### A 1C #### [facility] [address] [place] [address] Dr. Julisa Lowe Hematocrit (Bld) [Volume fraction] 31.6 % Critically low 36.0-48.0 [facility] Comment on above: Performed By: #### A 1C #### [facility] [address] [place] [address] Dr. Julisa Lowe Hemoglobin (Bld) [Mass/Vol] 9.2 g/dL Critically low 12.0-16.0 [facility] Comment on above: Performed By: #### A 1C #### [facility] [address] [place] [address] Dr. Julisa Lowe IG # 0.07 10e3/ul Critically high 0.00-0.03 [facility] Comment on above: Performed By: #### A 1C #### [facility] [address] [address] [address] Julisa Lowe IG % 0.7 % Critically high 0.0-0.5 [facility] Comment on above: Performed By: #### A 1C #### [facility] [address] [place] [address] Dr. Julisa Lowe LYMPH # 3.2 103/ul Normal 1.2-3.8 [facility] Comment on above: Performed By: #### A 1C #### [facility] [address] [place] [address] Dr. Julisa Lowe Lymphocytes/100 WBC (Bld) 30.8 % Normal 20.5-60.0 [facility] Comment on above: Performed By: #### A 1C #### [facility] [address] [place] [address] Dr. Julisa Lowe MANUAL DIFF REQ NO Normal [facility] Comment on above: Performed By: #### A 1C #### [facility] [address] [place] [address] Dr. Julisa Lowe MCH (RBC) [Entitic mass] 20.4 pg Critically low 26.7-34.0 [facility] Comment on above: Performed By: #### A 1C #### [facility] [address] [place] [address] Dr. Julisa Lowe MCHC (RBC) [Mass/Vol] 29.1 g/dL Critically low 29.9-35.2 [facility] Comment on above: Performed By: #### A 1C #### [facility] [address] [place] [address] Dr. Julisa Lowe MCV (RBC) [Entitic vol] 69.9 fL Critically low 81.0-99.0 [facility] Comment on above: Performed By: #### A 1C #### [facility] [address] [place] [address] Dr. Julisa Lowe MONO # 0.8 103/ul Normal 0.3-0.8 [facility] Comment on above: Performed By: #### A 1C #### [facility] [address] [place] [address] Dr. Julisa Lowe Monocytes/100 WBC (Bld) 7.3 % Normal 1.7-12.0 [facility] Comment on above: Performed By: #### A 1C #### [facility] [address] [place] [address] Dr. Julisa Lowe NEUT # 6.2 103/ul Normal 1.4-6.5 [facility] Comment on above: Performed By: #### A 1C #### [facility] [address] [place] [address] Dr. Julisa Lowe Neutrophils/100 WBC (Bld) 59.5 % Normal 43.0-75.0 [facility] Comment on above: Performed By: #### A 1C #### [facility] [address] [place] [address] Dr. Julisa Lowe Platelet mean volume (Bld) [Entitic vol] 8.4 fL Critically low 9.5-13.5 [facility] Comment on above: Performed By: #### A 1C #### [facility] [address] [place] [address] Dr. Julisa Lowe PLT 301 103/ul Normal 150-450 [facility] Comment on above: Performed By: #### A 1C #### [facility] [address] [place] [address] Dr. Julisa Lowe RBC 4.52 106/ul Normal 4.20-5.40 [facility] Comment on above: Performed By: #### A 1C #### [facility] [address] [place] [address] Dr. Julisa Lowe WBC 10.4 103/ul Normal 4.0-11.0 [facility] Comment on above: Performed By: #### A 1C #### [facility] [address] [address] [address] Julisa Lowe POINT OF CARE GLUCOSEon 12-12 Glucose [Mass/Vol] 351 mg/dL Critically high 74-106 [facility] Comment on above: Performed By: #### H STROPN #### [facility] [address] [place] [address] Dr. Julisa Lowe Glucose [Mass/Vol] 183 mg/dL Critically high 74-106 [facility] Comment on above: Performed By: #### P OCGLUC #### [facility] [address] [place] [address] Dr. Julisa Lowe PROF CHEM 8 (BAS METB)on Anion gap [Moles/Vol] 14.6 mmol/L Normal [facility] Comment on above: Performed By: #### S EDR #### [facility] [address] [place] [address] Dr. Julisa Lowe Calcium [Mass/Vol] 8.6 mg/dL Normal 8.5-10.1 [facility] Comment on above: Performed By: #### S EDR #### [facility] [address] [place] [address] Dr. Julisa Lowe Chloride [Moles/Vol] 107 mmol/L Normal 98-107 [facility] Comment on above: Performed By: #### S EDR #### [facility] [address] [place] [address] Dr. Julisa Lowe CO2 [Moles/Vol] 24.6 mmol/L Normal 22.0-30.0 [facility] Comment on above: Performed By: #### S EDR #### [facility] [address] [place] [address] Dr. Julisa Lowe Creatinine [Mass/Vol] 0.57 mg/dL Normal 0.52-1.04 [facility] Comment on above: Performed By: #### S EDR #### [facility] [address] [place] [address] Dr. Julisa Lowe EGFR-AF COLOMBIAN >60 Normal >=60 [facility] Comment on above: Performed By: #### S EDR #### [facility] [address] [address] [address] Julisa Lowe EGFR-NON AF COLOMBIAN >60 Normal >=60 [facility] Comment on above: Performed By: #### S EDR #### [facility] [address] [address] [address] Julisa Lowe Glucose [Mass/Vol] 189 mg/dL Critically high 74-106 [facility] Comment on above: Performed By: #### S EDR #### [facility] [address] [address] [address] Julisa Lowe Potassium [Moles/Vol] 4.2 mmol/L Normal 3.4-5.0 [facility] Comment on above: Performed By: #### S EDR #### [facility] [address] [address] [address] Julisa Lowe Sodium [Moles/Vol] 142 mmol/L Normal 137-145 [facility] Comment on above: Performed By: #### S EDR #### [facility] [address] [address] [address] Julisa Lowe Urea nitrogen [Mass/Vol] 16.0 mg/dL Normal 7.0-18.0 [facility] Comment on above: Performed By: #### S EDR #### [facility] [address] [address] [address] Julisa Lowe Urea nitrogen/Creatinine [Mass ratio] 28.1 mg/mg Normal [facility] Comment on above: Performed By: #### S EDR #### [facility] [address] [address] [address] Julisa Lowe BNPon 12-20-2021 Natriuretic peptide B (Bld) [Mass/Vol] 880.0 pg/mL Normal <=900.0 [facility] Comment on above: Performed By: #### H STROPN #### [facility] [address] [address] [address] Julisa Lowe CARDIAC TRUONG ADMITon 022 CK <20 Critically low 30-135 [facility] Comment on above: Performed By: #### H STROPN #### [facility] [address] [place] [address] Dr. Julisa Lowe CK.MB [Mass/Vol] ng/mL Normal <=2.37 [facility] Comment on above: Performed By: #### H STROPN #### [facility] [address] [place] [address] Dr. Julisa Lowe HSTROP 15.1 pg/mL Normal 4.0-35.5 [facility] Comment on above: Result Comment: CUT- OFF POINTS HAVE BEEN ESTABLISHED BASED ON THE FOURTH UNIVERSAL DEFINITIONS OF MYOCARDIAL INFARCTION. THE UPPER REFERENCE LIMIT (URL) OF TROPONIN, DEFINED THE 99TH PERCENTILE OF cTnI DISTRIBUTION IN A REFERENCE POPULATION, HAS BEEN CONFIRMED THE DECISION THRESHOLD FOR [place] DIAGNOSIS. Performed By: #### H STROPN #### [facility] [address] [place] [address] Dr. Julisa Lowe RAJ 24.0 ng/mL Normal <=61.5 [facility] Comment on above: Performed By: #### H STROPN #### [facility] [address] [place] [address] Dr. Julisa Lowe CBC AUTO DIFFon 12-20-2021 BASO # 0.1 103/ul Normal 0.0-0.1 [facility] Comment on above: Performed By: #### S EDR #### [facility] [address] [place] [address] Dr. Julisa Lowe Basophils/100 WBC (Bld) 0.5 % Normal 0.2-2.0 [facility] Comment on above: Performed By: #### S EDR #### [facility] [address] [place] [address] Dr. Julisa Lowe EO # 0.1 103/ul Normal 0.0-0.7 [facility] Comment on above: Performed By: #### S EDR #### [facility] [address] [place] [address] Dr. Julisa Lowe Eosinophils/100 WBC (Bld) 1.0 % Normal 0.9-7.0 [facility] Comment on above: Performed By: #### S EDR #### [facility] [address] [address] [address] Julisa Lowe Erythrocyte distribution width (RBC) [Ratio] 19.8 % Critically high 11.0-15.0 [facility] Comment on above: Result Comment: slig ht poikilocytosis, moderate anisocytosis, Performed By: #### S EDR #### [facility] [address] [address] [address] Julisa Lowe Hematocrit (Bld) [Volume fraction] 32.7 % Critically low 36.0-48.0 [facility] Comment on above: Performed By: #### S EDR #### [facility] [address] [place] [address] Dr. Julisa Lowe Hemoglobin (Bld) [Mass/Vol] 9.6 g/dL Critically low 12.0-16.0 [facility] Comment on above: Performed By: #### S EDR #### [facility] [address] [place] [address] Dr. Julisa Lowe IG # 0.07 10e3/ul Critically high 0.00-0.03 [facility] Comment on above: Performed By: #### S EDR #### [facility] [address] [place] [address] Dr. Julisa Lowe IG % 0.7 % Critically high 0.0-0.5 [facility] Comment on above: Performed By: #### S EDR #### [facility] [address] [place] [address] Dr. Julisa Lowe LYMPH # 3.1 103/ul Normal 1.2-3.8 [facility] Comment on above: Performed By: #### S EDR #### [facility] [address] [place] [address] Dr. Julisa Lowe Lymphocytes/100 WBC (Bld) 29.7 % Normal 20.5-60.0 [facility] Comment on above: Performed By: #### S EDR #### [facility] [address] [address] [address] Julisa Lowe MANUAL DIFF REQ NO Normal [facility] Comment on above: Performed By: #### S EDR #### [facility] [address] [place] [address] Dr. Julisa Lowe MCH (RBC) [Entitic mass] 20.5 pg Critically low 26.7-34.0 [facility] Comment on above: Performed By: #### S EDR #### [facility] [address] [place] [address] Dr. Julisa Lowe MCHC (RBC) [Mass/Vol] 29.4 g/dL Critically low 29.9-35.2 [facility] Comment on above: Performed By: #### S EDR #### [facility] [address] [place] [address] Dr. Julisa Lowe MCV (RBC) [Entitic vol] 69.9 fL Critically low 81.0-99.0 [facility] Comment on above: Result Comment: few ovalocytes, moderate hypochromasia Performed By: #### S EDR #### [facility] [address] [place] [address] Dr. Julisa Lowe MONO # 0.6 103/ul Normal 0.3-0.8 [facility] Comment on above: Performed By: #### S EDR #### [facility] [address] [place] [address] Dr. Julisa Lowe Monocytes/100 WBC (Bld) 5.6 % Normal 1.7-12.0 [facility] Comment on above: Performed By: #### S EDR #### [facility] [address] [place] [address] Dr. Julisa Lowe NEUT # 6.5 103/ul Normal 1.4-6.5 [facility] Comment on above: Performed By: #### S EDR #### [facility] [address] [place] [address] Dr. Julisa Lowe Neutrophils/100 WBC (Bld) 62.5 % Normal 43.0-75.0 [facility] Comment on above: Performed By: #### S EDR #### [facility] [address] [address] [address] Julisa Lowe Platelet mean volume (Bld) [Entitic vol] 8.8 fL Critically low 9.5-13.5 [facility] Comment on above: Performed By: #### S EDR #### [facility] [address] [place] [address] Dr. Julisa Lowe PLT 280 103/ul Normal 150-450 [facility] Comment on above: Performed By: #### S EDR #### [facility] [address] [address] [address] Julisa Lowe RBC 4.68 106/ul Normal 4.20-5.40 [facility] Comment on above: Performed By: #### S EDR #### [facility] [address] [place] [address] Dr. Julisa Lowe WBC 10.5 103/ul Normal 4.0-11.0 [facility] Comment on above: Performed By: #### S EDR #### [facility] [address] [place] [address] Dr. Julisa Lowe Covid-19 PCR ([facility])on SARS-CoV-2 (COVID-19) RNA CHALINO+probe Ql (Unsp spec) Not detected Normal NOT DETECTED [facility] Comment on above: Result Comment: When diagnostic testing is negative, the possibility of a false negative should be considered in the context of a patient's recent exposures and the presence of clinical signs and symptoms consistent with SARS-CoV-2. This test is not yet approved or cleared by the [place] FDA. When there are no FDA-approved or cleared tests available, and other criteria are met, FDA can make tests available under an emergency access mechanism called an Emergency Use Authorization (EUA). The EUA for this test is supported by the [place] of Health and Human Service's declaration that circumstances exist to justify the emergency use of in vitro diagnostics for the detection and/or diagnosis of the virus that causes COVID-19. This EUA will remain in effect for the duration of the COVID-19 declaration justifying emergency of IVDs, unless it is terminated or revoked by the FDA (after which the test may no longer be used). Performed By: #### P OCGLUC #### [facility] [address] [address] [address] Julisa Lowe ER URINE PROFILEon 2 Bilirubin Ql (U) Negative Normal NEGATIVE [facility] Comment on above: Performed By: #### S EDR #### [facility] [address] [place] [address] Dr. Julisa Lowe Clarity (U) SL CLOUDY Abnormal CLEAR [facility] Comment on above: Performed By: #### S EDR #### [facility] [address] [place] [address] Dr. Julisa Lowe Color (U) LT. YELLOW Normal YELLOW [facility] Comment on above: Performed By: #### S EDR #### [facility] [address] [place] [address] Dr. Julisa DAY A micrscopic examination will be performed if indicated. Normal [facility] Comment on above: Performed By: #### S EDR #### [facility] [address] [place] [address] Dr. Julisa Lowe Glucose Ql (U) Negative Normal NEGATIVE [facility] Comment on above: Performed By: #### S EDR #### [facility] [address] [place] [address] Dr. Julisa Lowe Hemoglobin Ql (U) Negative Normal NEGATIVE [facility] Comment on above: Performed By: #### S EDR #### [facility] [address] [place] [address] Dr. Julisa Lowe Ketones Ql (U) Negative Normal NEGATIVE [facility] Comment on above: Performed By: #### S EDR #### [facility] [address] [place] [address] Dr. Julsia Lowe LEUKOCYTES TRACE Abnormal NEGATIVE [facility] Comment on above: Performed By: #### S EDR #### [facility] [address] [place] [address] Dr. Julisa Lowe Nitrite Ql (U) Negative Normal NEGATIVE [facility] Comment on above: Performed By: #### S EDR #### [facility] [address] [address] [address] Julisa Lowe pH (U) 7.5 [pH] Normal 5-9 [facility] Comment on above: Performed By: #### S EDR #### [facility] [address] [address] [address] Julisa Lowe Protein (U) [Mass/Vol] 100 mg/dL Abnormal NEGAT CRISTOPHER/ TRACE [facility] Comment on above: Performed By: #### S EDR #### [facility] [address] [address] [address] Julisa Lowe SPEC GRAVITY 1.020 Normal 1.005-<=1.025 [facility] Comment on above: Performed By: #### S EDR #### [facility] [address] [place] [address] Dr. Julisa Lowe UR MICRO IND INDICATED Normal [facility] Comment on above: Performed By: #### S EDR #### [facility] [address] [address] [address] Julisa Lowe Urobilinogen Qn (U) 0.2 {Shirley'U}/dL Normal 0.2 - 1. 0 [facility] Comment on above: Performed By: #### S EDR #### [facility] [address] [place] [address] Dr. Julisa Lowe POINT OF CARE GLUCOSEon 040 Glucose [Mass/Vol] 145 mg/dL Critically high 74-106 T [facility] Comment on above: Performed By: #### S EDR #### [facility] [address] [place] [address] Dr. Julisa Lowe PROF 14(COMP METB)on 022 Albumin [Mass/Vol] 3.0 g/dL Critically low 3.4-5.0 [facility] Comment on above: Performed By: #### H STROPN #### [facility] [address] [place] [address] Dr. Julisa Lowe Albumin/Globulin [Mass ratio] 1.0 {ratio} Normal [facility] Comment on above: Performed By: #### H STROPN #### [facility] [address] [address] [address] Julisa Lowe ALP [Catalytic activity/Vol] 110 U/L Normal 46-116 [facility] Comment on above: Performed By: #### H STROPN #### [facility] [address] [address] [address] Julisa Lowe ALT [Catalytic activity/Vol] 18 U/L Normal 14-59 [facility] Comment on above: Performed By: #### H STROPN #### [facility] [address] [address] [address] Julisa Lowe Anion gap [Moles/Vol] 13.4 mmol/L Normal [facility] Comment on above: Performed By: #### H STROPN #### [facility] [address] [address] [address] Julisa Lowe AST [Catalytic activity/Vol] 8 U/L Critically low 15-37 [facility] Comment on above: Performed By: #### H STROPN #### [facility] [address] [address] [address] Julisa Lowe Bilirubin [Mass/Vol] 0.3 mg/dL Normal 0.2-1.3 [facility] Comment on above: Performed By: #### H STROPN #### [facility] [address] [address] [address] Julisa Lowe Calcium [Mass/Vol] 8.5 mg/dL Normal 8.5-10.1 [facility] Comment on above: Performed By: #### H STROPN #### [facility] [address] [address] [address] Julisa Lowe Chloride [Moles/Vol] 106 mmol/L Normal 98-107 [facility] Comment on above: Performed By: #### H STROPN #### [facility] [address] [address] [address] Julisa Lowe CO2 [Moles/Vol] 26.3 mmol/L Normal 22.0-30.0 [facility] Comment on above: Performed By: #### H STROPN #### [facility] [address] [address] [address] Julisa Lowe Creatinine [Mass/Vol] 0.52 mg/dL Normal 0.52-1.04 [facility] Comment on above: Performed By: #### H STROPN #### [facility] [address] [address] [address] Julisa Lowe EGFR-AF COLOMBIAN >60 Normal >=60 [facility] Comment on above: Performed By: #### H STROPN #### [facility] [address] [address] [address] Julisa Lowe EGFR-NON AF COLOMBIAN >60 Normal >=60 [facility] Comment on above: Performed By: #### H STROPN #### [facility] [address] [address] [address] Julisa Lowe Globulin (S) [Mass/Vol] 3.0 g/dL Normal [facility] Comment on above: Performed By: #### H STROPN #### [facility] [address] [address] [address] Julisa Lowe Glucose [Mass/Vol] 147 mg/dL Critically high 74-106 [facility] Comment on above: Performed By: #### H STROPN #### [facility] [address] [address] [address] Julisa Lowe Potassium [Moles/Vol] 3.7 mmol/L Normal 3.4-5.0 [facility] Comment on above: Performed By: #### H STROPN #### [facility] [address] [address] [address] Julisa Lowe Protein [Mass/Vol] 6.0 g/dL Critically low 6.1-8.2 [facility] Comment on above: Performed By: #### H STROPN #### [facility] [address] [address] [address] Julisa Lowe Sodium [Moles/Vol] 142 mmol/L Normal 137-145 [facility] Comment on above: Performed By: #### H STROPN #### [facility] [address] [address] [address] Julisa Lowe Urea nitrogen [Mass/Vol] 13.0 mg/dL Normal 7.0-18.0 [facility] Comment on above: Performed By: #### H STROPN #### [facility] [address] [place] [address] Dr. Julisa Lowe Urea nitrogen/Creatinine [Mass ratio] 25.0 mg/mg Normal [facility] Comment on above: Performed By: #### H STROPN #### [facility] [address] [place] [address] Dr. Julisa Lowe PROTIMEon 12-20-2021 INR Coag (PPP) [Relative time] 0.94 {INR} Normal [facility] Comment on above: Performed By: #### S EDR #### [facility] [address] [place] [address] Dr. Julisa Lowe INR GUIDELINES SEE BELOW Normal [facility] Comment on above: Result Comment: NHI RED INR: 2.0 - 3.0 CONDITIONS NOT LISTED BELOW 2.5 - 3.5 FOR PROSTHETIC HEART VALVE REPLACEMENT 2.5 - 3.5 RECURRENT THROMBOSIS Performed By: #### S EDR #### [facility] [address] [place] [address] Dr. Julisa Lowe PT Coag (PPP) [Time] 10.2 s Normal 9.0-11.6 [facility] Comment on above: Performed By: #### S EDR #### [facility] [address] [place] [address] Dr. Julisa Lowe PTTon 12-20-2021 aPTT Coag (Bld) [Time] 21.7 s Critically low 22.3-36.2 [facility] Comment on above: Performed By: #### S EDR #### [facility] [address] [place] [address] Dr. Julisa Lowe TROPONIN, HIGH SENSITIVITYon 12-20-2021 HSTROP 16.8 pg/mL Normal 4.0-35.5 [facility] Comment on above: Result Comment: CUT- OFF POINTS HAVE BEEN ESTABLISHED BASED ON THE FOURTH UNIVERSAL DEFINITIONS OF MYOCARDIAL INFARCTION. THE UPPER REFERENCE LIMIT (URL) OF TROPONIN, DEFINED THE 99TH PERCENTILE OF cTnI DISTRIBUTION IN A REFERENCE POPULATION, HAS BEEN CONFIRMED THE DECISION THRESHOLD FOR [place] DIAGNOSIS. Performed By: #### H STROPN #### [facility] [address] [place] [address] Dr. Julisa Lowe HSTROP 16.3 pg/mL Normal 4.0-35.5 [facility] Comment on above: Result Comment: CUT- OFF POINTS HAVE BEEN ESTABLISHED BASED ON THE FOURTH UNIVERSAL DEFINITIONS OF MYOCARDIAL INFARCTION. THE UPPER REFERENCE LIMIT (URL) OF TROPONIN, DEFINED THE 99TH PERCENTILE OF cTnI DISTRIBUTION IN A REFERENCE POPULATION, HAS BEEN CONFIRMED THE DECISION THRESHOLD FOR [place] DIAGNOSIS. Performed By: #### P OCGLUC #### [facility] [address] [place] [address] Dr. Julisa Lowe URINE MICROSCOPIC ONLYon BACTERIA LARGE Abnormal NONE SEEN [facility] Comment on above: Performed By: #### S EDR #### [facility] [address] [place] [address] Dr. Julisa Lowe Bacteria identified Cx Nom (U) INDICATED Normal [facility] Comment on above: Performed By: #### S EDR #### [facility] [address] [place] [address] Dr. Julisa Lowe CAST NONE SEEN Normal NONE SEEN [facility] Comment on above: Performed By: #### S EDR #### [facility] [address] [place] [address] Dr. Julisa Lowe Crystals LM Nom (Urine sed) NONE SEEN Normal NONE SEEN [facility] Comment on above: Performed By: #### S EDR #### [facility] [address] [place] [address] Dr. Julisa Lowe Epithelial cells LM Ql (Urine sed) FEW Abnormal NONE SEEN /RARE [facility] Comment on above: Performed By: #### S EDR #### [facility] [address] [place] [address] Dr. Julisa Lowe MUCOUS NONE SEEN Normal NONE SEEN [facility] Comment on above: Performed By: #### S EDR #### [facility] [address] [place] [address] Dr. Julisa Lowe RBC 0-2 Normal 0-2 [facility] Comment on above: Performed By: #### S EDR #### [facility] [address] [place] [address] Dr. Julisa Lowe WBC 10-20 Abnormal NONE SEEN [facility] Comment on above: Performed By: #### S EDR #### [facility] [address] [place] [address] Dr. Julisa Lowe XR CHEST 1 Von 12-20-2021 XR CHEST 1 V EXAMINATION: XR CHES T 1 V HISTORY: Chest pain COMPARISON: Chest x-ray 06/08/2021. TECHNIQUE: Portable chest FINDINGS: The lung parenchyma is free of consolidation or infiltrate. No pneumothorax or pleural effusion. The cardiac, mediastinal and hilar contours are normal. Status post ACDF. The visualized osseous structures exhibit no gross abnormality. IMPRESSION: No acute cardiopulmonary abnormality. Electronically authenticated by: NGOZI NELSON Date: 2021-12-20 15:58 Normal [facility] JOSEE by IFAon 12-18-2021 Antinuclear Antibodies, IFA Negative Normal [facility] Comment on above: Result Comment: Nega tive <1:80 Borderline 1:80 Positive >1:80 ICAP nomenclature: AC-0 For more information about Hep-2 cell patterns use ANApatterns.org, the official website for the International Consensus on Antinuclear Antibody (JOSEE) Patterns (ICAP). Performed By: #### H STROPN #### [facility] [address] [place] [address] Dr. Julisa Lowe CBC AUTO DIFFon 12-15-2021 BASO # 0.0 103/ul Normal 0.0-0.1 [facility] Comment on above: Performed By: #### A 1C #### [facility] [address] [place] [address] Dr. Julisa Lowe Basophils/100 WBC (Bld) 0.3 % Normal 0.2-2.0 [facility] Comment on above: Performed By: #### A 1C #### [facility] [address] [place] [address] Dr. Julisa Lowe EO # 0.1 103/ul Normal 0.0-0.7 [facility] Comment on above: Performed By: #### A 1C #### [facility] [address] [place] [address] Dr. Julisa Lowe Eosinophils/100 WBC (Bld) 0.9 % Normal 0.9-7.0 [facility] Comment on above: Performed By: #### A 1C #### [facility] [address] [place] [address] Dr. Julisa Lowe Erythrocyte distribution width (RBC) [Ratio] 19.6 % Critically high 11.0-15.0 [facility] Comment on above: Performed By: #### A 1C #### [facility] [address] [place] [address] Dr. Julisa Lowe Hematocrit (Bld) [Volume fraction] 33.8 % Critically low 36.0-48.0 [facility] Comment on above: Performed By: #### A 1C #### [facility] [address] [place] [address] Dr. Julisa Lowe Hemoglobin (Bld) [Mass/Vol] 9.7 g/dL Critically low 12.0-16.0 [facility] Comment on above: Performed By: #### A 1C #### [facility] [address] [place] [address] Dr. Julisa Lowe IG # 0.13 10e3/ul Critically high 0.00-0.03 [facility] Comment on above: Performed By: #### A 1C #### [facility] [address] [place] [address] Dr. Julisa Lowe IG % 0.9 % Critically high 0.0-0.5 [facility] Comment on above: Performed By: #### A 1C #### [facility] [address] [place] [address] Dr. Julisa Lowe LYMPH # 3.5 103/ul Normal 1.2-3.8 [facility] Comment on above: Performed By: #### A 1C #### [facility] [address] [place] [address] Dr. Julisa Lowe Lymphocytes/100 WBC (Bld) 25.4 % Normal 20.5-60.0 [facility] Comment on above: Performed By: #### A 1C #### [facility] [address] [place] [address] Dr. Julisa Lowe MANUAL DIFF REQ NO Normal [facility] Comment on above: Performed By: #### A 1C #### [facility] [address] [place] [address] Dr. Julisa Lowe MCH (RBC) [Entitic mass] 20.4 pg Critically low 26.7-34.0 [facility] Comment on above: Performed By: #### A 1C #### [facility] [address] [place] [address] Dr. Julisa Lowe MCHC (RBC) [Mass/Vol] 28.7 g/dL Critically low 29.9-35.2 [facility] Comment on above: Performed By: #### A 1C #### [facility] [address] [place] [address] Dr. Julisa Lowe MCV (RBC) [Entitic vol] 71.2 fL Critically low 81.0-99.0 [facility] Comment on above: Performed By: #### A 1C #### [facility] [address] [place] [address] Dr. Julisa Lowe MONO # 0.7 103/ul Normal 0.3-0.8 [facility] Comment on above: Performed By: #### A 1C #### [facility] [address] [place] [address] Dr. Julisa Lowe Monocytes/100 WBC (Bld) 5.0 % Normal 1.7-12.0 [facility] Comment on above: Performed By: #### A 1C #### [facility] [address] [place] [address] Dr. Julisa Lowe NEUT # 9.3 103/ul Critically high 1.4-6.5 [facility] Comment on above: Performed By: #### A 1C #### [facility] [address] [place] [address] Dr. Julisa Lowe Neutrophils/100 WBC (Bld) 67.5 % Normal 43.0-75.0 [facility] Comment on above: Performed By: #### A 1C #### [facility] [address] [place] [address] Dr. Julisa Lowe Platelet mean volume (Bld) [Entitic vol] 8.2 fL Critically low 9.5-13.5 [facility] Comment on above: Performed By: #### A 1C #### [facility] [address] [place] [address] Dr. Julisa Lowe PLT 301 103/ul Normal 150-450 [facility] Comment on above: Performed By: #### A 1C #### [facility] [address] [place] [address] Dr. Julisa Lowe RBC 4.75 106/ul Normal 4.20-5.40 [facility] Comment on above: Result Comment: HYPO CHROMIA 3+ Performed By: #### A 1C #### [facility] [address] [place] [address] Dr. Julisa Lowe WBC 13.8 103/ul Critically high 4.0-11.0 [facility] Comment on above: Performed By: #### A 1C #### [facility] [address] [place] [address] Dr. Julisa Lowe CRPon 12-15-2021 CRP [Mass/Vol] mg/L Normal <=1.0 [facility] Comment on above: Performed By: #### C MP, CRP, TSH #### [facility] [address] [place] [address] Dr. Julisa Lowe FREE T4on 12-15-2021 Free T4 [Mass/Vol] 1.04 ng/dL Normal 0.78-2.19 [facility] Comment on above: Performed By: #### S EDR #### [facility] [address] [place] [address] Dr. Julisa oLwe PROF 14(COMP METB)on 022 Albumin [Mass/Vol] 3.4 g/dL Normal 3.4-5.0 [facility] Comment on above: Performed By: #### C MP, CRP, TSH #### [facility] [address] [address] [address] Julisa Lowe Albumin/Globulin [Mass ratio] 1.1 {ratio} Normal [facility] Comment on above: Performed By: #### C MP, CRP, TSH #### [facility] [address] [address] [address] Julisa Lowe ALP [Catalytic activity/Vol] 120 U/L Critically high 46-116 [facility] Comment on above: Performed By: #### C MP, CRP, TSH #### [facility] [address] [address] [address] Julisa Lowe ALT [Catalytic activity/Vol] 28 U/L Normal 14-59 [facility] Comment on above: Performed By: #### C MP, CRP, TSH #### [facility] [address] [address] [address] Julisa Lowe Anion gap [Moles/Vol] 12.7 mmol/L Normal [facility] Comment on above: Performed By: #### C MP, CRP, TSH #### [facility] [address] [address] [address] Julisa Lowe AST [Catalytic activity/Vol] 13 U/L Critically low 15-37 [facility] Comment on above: Performed By: #### C MP, CRP, TSH #### [facility] [address] [address] [address] Julisa Lowe Bilirubin [Mass/Vol] 0.3 mg/dL Normal 0.2-1.3 [facility] Comment on above: Performed By: #### C MP, CRP, TSH #### [facility] [address] [address] [address] Julisa Lowe Calcium [Mass/Vol] 8.4 mg/dL Critically low 8.5-10.1 [facility] Comment on above: Performed By: #### C MP, CRP, TSH #### [facility] [address] [address] [address] Julisa Lowe Chloride [Moles/Vol] 106 mmol/L Normal 98-107 [facility] Comment on above: Performed By: #### C MP, CRP, TSH #### [facility] [address] [address] [address] Julisa Lowe CO2 [Moles/Vol] 25.8 mmol/L Normal 22.0-30.0 [facility] Comment on above: Performed By: #### C MP, CRP, TSH #### [facility] [address] [address] [address] Julisa Lowe Creatinine [Mass/Vol] 0.68 mg/dL Normal 0.52-1.04 [facility] Comment on above: Performed By: #### C MP, CRP, TSH #### [facility] [address] [address] [address] Julisa Lowe EGFR-AF COLOMBIAN >60 Normal >=60 [facility] Comment on above: Performed By: #### C MP, CRP, TSH #### [facility] [address] [address] [address] Julisa Lowe EGFR-NON AF COLOMBIAN >60 Normal >=60 [facility] Comment on above: Performed By: #### C MP, CRP, TSH #### [facility] [address] [address] [address] Julisa Lowe Globulin (S) [Mass/Vol] 3.2 g/dL Normal [facility] Comment on above: Performed By: #### C MP, CRP, TSH #### [facility] [address] [address] [address] Julisa Lowe Glucose [Mass/Vol] 222 mg/dL Critically high 74-106 T [facility] Comment on above: Performed By: #### C MP, CRP, TSH #### [facility] [address] [address] [address] Julisa Lowe Potassium [Moles/Vol] 3.5 mmol/L Normal 3.4-5.0 [facility] Comment on above: Performed By: #### C MP, CRP, TSH #### [facility] [address] [address] [address] Julisa Lowe Protein [Mass/Vol] 6.6 g/dL Normal 6.1-8.2 [facility] Comment on above: Performed By: #### C MP, CRP, TSH #### [facility] [address] [place] [address] Dr. Julisa Lowe Sodium [Moles/Vol] 141 mmol/L Normal 137-145 [facility] Comment on above: Performed By: #### C MP, CRP, TSH #### [facility] [address] [place] [address] Dr. Julisa Lowe Urea nitrogen [Mass/Vol] 14.0 mg/dL Normal 7.0-18.0 [facility] Comment on above: Performed By: #### C MP, CRP, TSH #### [facility] [address] [place] [address] Dr. Julisa Lowe Urea nitrogen/Creatinine [Mass ratio] 20.6 mg/mg Normal [facility] Comment on above: Performed By: #### C MP, CRP, TSH #### [facility] [address] [place] [address] Dr. Julisa Lowe [facility] 2021 SED RATE 10 mm/hr Normal <=30 [facility] Comment on above: Performed By: #### S EDR #### [facility] [address] [place] [address] Dr. Julisa Lowe TSHon 12-15-2021 TSH 0.747 uIU/mL Normal 0.470-4.680 [facility] Comment on above: Performed By: #### C MP, CRP, TSH #### [facility] [address] [place] [address] Dr. Julisa Lowe TSH RANGE SEE BELOW Normal [facility] Comment on above: Result Comment: <0.3 4 UIU/ml HYPERTHYROID 0.34-5.60 UIU/ml EUTHYROID >5.60 UIU/ml HYPOTHYROID Performed By: #### C MP, CRP, TSH #### [facility] [address] [place] [address] Dr. Jluisa Lowe ECHOCARDIO M/2D COMPLETEon 0 12-04-2021 ECHOCARDIO M/2D COMPLETE Patient: ROBINA RON Exam Date: 12/04/2021 : 1950 Gender:F Ordering : SHAIKH Chaparrita SPARKS . Admission #: [id number] Family : Order #: [id number] CLICK HERE TO VIEW EXAM ECHOCARDIOGRAM REPORT PROCEDURE: CARDIO PULMONARY ECHOCARDIO M/2D COMP INDICATIONS: Dyspnea on exertion, Afib COMPARISON: None. DESCRIPTION: COMPLETE ECHOCARDIOGRAM Real-time transthoracic echocardiography with 2D, M-mode, spectral and color flow Doppler performed. QUALITY: Technical quality was good. LEFT VENTRICLE: Normal chamber size. Mild concentric left ventricular hypertrophy. Global left ventricular systolic function is normal. Calculated left ventricular ejection fraction is 68%. LV EF: DIASTOLIC: Grade I diastolic dysfunction. ATRIAL SEPTUM: LEFT ATRIUM: Mild dilatation. RIGHT ATRIUM: Mild dilatation. RIGHT VENTRICLE: Normal chamber size. Normal right ventricular systolic function. TRICUSPID VALVE: Normal mobility and thickness. No stenosis with mild regurgitation. Mild pulmonary hypertension. RVSP 40mmHg. MITRAL VALVE: Normal mobility and thickness. No mitral valve prolapse. No evidence of mitral valve stenosis. Mild mitral annular calcification. No mitral regurgitation. AORTIC VALVE: Normal trileaflet appearance. No visible sclerosis. Normal leaflet mobility. No evidence of aortic valve stenosis. DVI 0.8No aortic regurgitation. AORTIC ROOT: Normal diameter and appearance. PULMONIC VALVE: Normal thickness and mobility. No stenosis. Trivial regurgitation. PERICARDIUM: Small to moderate circumferential pericardial effusion is seen without evidence of tamponade physiology. IVC: Collapses with inspirations. Normal in size PLEURA: CONCLUSION: 1. Mild concentric left ventricular hypertrophy. 2. Normal ventricular systolic function. LVEF is 65-70%. 3. Grade I (mild) diastolic dysfunction. 4. Mild biatrial dilatation. 5. Mildly elevated right sided pressures. 6. Small to moderate circumferential pericardial effusion is seen without evidence of tamponade physiology. Adult Echocardiography Procedure Report Left Ventricle LVEDD (3.7 - 5.6 cm): 4.10 cm LVESD (2.2 - 4.0 cm): 2.80 cm LVIVS thickness (0.6 - 1.2 cm): 1.34 cm LVPW thickness (0.5 - 1.0 cm): 1.35 cm e': 6.36 cm/s E - e': 11.70 LVOT Area (cm2): 2.84 cm2 LVOT Diameter 1.90 cm Left Ventricular Ejection Fraction: 65-70% Left Atrium LA Volume Index (2D A2C): 45.40 ml/m2 Left Atrium Systolic Dimension: 3.70 cm Left Atrium Systolic Area(A2C): 22.10 cm2 Left Atrium Systolic Area(A4C): 21.50 cm2 Left Atrium Systolic Volume(A2C): 58081 mm3 Left Atrium Systolic Volume(A4C): 74866 mm3 Mitral Valve MV E to A Ratio: 0.80 Mitral Valve A-Wave Peak Velocity: 99.20 cm/s Mitral Valve E-Wave Peak Velocity: 74.50 cm/s Right Ventricle RV Internal Diastolic Dimension: 3.27 cm Aorta AO Root Diam: 2.90 cm Aortic Valve AoV Area (Peak Raghu): 2.13 cm2 Aortic Valve Cusp Separation: 1.90 cm Peak Velocity(Antegrade Flow): 164.00 cm/s Peak Gradient(Antegrade Flow): 11 mm[Hg] Tricuspid Valve Peak Velocity (Regurgitant Flow): 292.00 cm/s, 299.00 cm/s Pulmonic Valve Peak Velocity: 142.00 cm/s Peak Gradient: 8 mm[Hg] Right Atrium Dictated by: Chris Fuchs M.D. on 12/04/2021 at 18:25 Approved by: Chris Fuchs M.D. on 12/04/2021 at 18:31 Normal [facility] CBC AUTO DIFFon 09-10-2021 BASO # 0.1 103/ul Normal 0.0-0.1 [facility] Comment on above: Performed By: #### S EDR #### [facility] [address] [place] [address] Dr. Julisa Lowe Basophils/100 WBC (Bld) 0.4 % Normal 0.2-2.0 [facility] Comment on above: Performed By: #### S EDR #### [facility] [address] [place] [address] Dr. Julisa Lowe EO # 0.2 103/ul Normal 0.0-0.7 [facility] Comment on above: Performed By: #### S EDR #### [facility] [address] [place] [address] Dr. Julisa Lowe Eosinophils/100 WBC (Bld) 1.2 % Normal 0.9-7.0 [facility] Comment on above: Performed By: #### S EDR #### [facility] [address] [place] [address] Dr. Julisa Lowe Erythrocyte distribution width (RBC) [Ratio] 17.8 % Critically high 11.0-15.0 [facility] Comment on above: Performed By: #### S EDR #### [facility] [address] [place] [address] Dr. Julisa Lowe Hematocrit (Bld) [Volume fraction] 36.6 % Normal 36.0-48.0 [facility] Comment on above: Performed By: #### S EDR #### [facility] [address] [place] [address] Dr. Julisa Lowe Hemoglobin (Bld) [Mass/Vol] 10.1 g/dL Critically low 12.0-16.0 [facility] Comment on above: Performed By: #### S EDR #### [facility] [address] [place] [address] Dr. Julisa Lowe IG # 0.08 10e3/ul Critically high 0.00-0.03 [facility] Comment on above: Performed By: #### S EDR #### [facility] [address] [place] [address] Dr. Julisa Lowe IG % 0.6 % Critically high 0.0-0.5 [facility] Comment on above: Performed By: #### S EDR #### [facility] [address] [place] [address] Dr. Julisa Lowe LYMPH # 3.1 103/ul Normal 1.2-3.8 [facility] Comment on above: Performed By: #### S EDR #### [facility] [address] [place] [address] Dr. Julisa Lowe Lymphocytes/100 WBC (Bld) 23.2 % Normal 20.5-60.0 [facility] Comment on above: Performed By: #### S EDR #### [facility] [address] [place] [address] Dr. Julisa Lowe MANUAL DIFF REQ NO Normal [facility] Comment on above: Performed By: #### S EDR #### [facility] [address] [place] [address] Dr. Julisa Lowe MCH (RBC) [Entitic mass] 20.9 pg Critically low 26.7-34.0 [facility] Comment on above: Performed By: #### S EDR #### [facility] [address] [place] [address] Dr. Julisa Lowe MCHC (RBC) [Mass/Vol] 27.6 g/dL Critically low 29.9-35.2 [facility] Comment on above: Performed By: #### S EDR #### [facility] [address] [place] [address] Dr. Julisa Lowe MCV (RBC) [Entitic vol] 75.8 fL Critically low 81.0-99.0 [facility] Comment on above: Performed By: #### S EDR #### [facility] [address] [place] [address] Dr. Julisa Lowe MONO # 0.7 103/ul Normal 0.3-0.8 [facility] Comment on above: Performed By: #### S EDR #### [facility] [address] [place] [address] Dr. Julisa Lowe Monocytes/100 WBC (Bld) 5.1 % Normal 1.7-12.0 [facility] Comment on above: Performed By: #### S EDR #### [facility] [address] [place] [address] Dr. Julisa Lowe NEUT # 9.3 103/ul Critically high 1.4-6.5 [facility] Comment on above: Performed By: #### S EDR #### [facility] [address] [place] [address] Dr. Julisa Lowe Neutrophils/100 WBC (Bld) 69.5 % Normal 43.0-75.0 [facility] Comment on above: Performed By: #### S EDR #### [facility] [address] [place] [address] Dr. Julisa Lowe Platelet mean volume (Bld) [Entitic vol] 8.2 fL Critically low 9.5-13.5 [facility] Comment on above: Performed By: #### S EDR #### [facility] [address] [address] [address] Julisa Lowe PLT 303 103/ul Normal 150-450 [facility] Comment on above: Performed By: #### S EDR #### [facility] [address] [address] [address] Julisa Lowe RBC 4.83 106/ul Normal 4.20-5.40 [facility] Comment on above: Performed By: #### S EDR #### [facility] [address] [address] [address] Julisa Lowe WBC 13.4 103/ul Critically high 4.0-11.0 [facility] Comment on above: Performed By: #### S EDR #### [facility] [address] [address] [address] Julisa Lowe GLYCOHEMOGLOBIN A1Con 2020 ADA RECOMMENDATION ADA THERAPEUTIC TARGET 6.0 - 7.0 ACTION SUGGESTED > 7.0 [facility] Comment on above: Performed By: #### A 1C #### [facility] [address] [place] [address] Dr. Julisa Lowe Glucose [Mass/Vol] 151 mg/dL Normal [facility] Comment on above: Performed By: #### A 1C #### [facility] [address] [address] [address] Julisa Lowe HbA1c (Bld) [Mass fraction] 6.9 % Critically high <=6.0 [facility] Comment on above: Performed By: #### A 1C #### [facility] [address] [place] [address] Dr. Julisa Lowe LIPID PROFILEon 09-10-2021 CHOL-HDL RATIO NORM SEE BELOW Normal [facility] Comment on above: Result Comment: 3.3 - 4.4 LOW RISK 4.4 - 7.1 AVERAGE RISK 7.1 - 11.0 MODERATE RISK >11.0 HIGH RISK Performed By: #### A 1C #### [facility] [address] [place], [place] [address] Dr. Julisa Lowe Cholesterol [Mass/Vol] 121 mg/dL Normal <=200 [facility] Comment on above: Performed By: #### A 1C #### [facility] [address] [place], [place] [address] Dr. Julisa Lowe Cholesterol in HDL [Mass/Vol] 55 mg/dL Normal [facility] Comment on above: Performed By: #### A 1C #### [facility] [address] [address] [address] Julisa Lowe Cholesterol in LDL [Mass/Vol] 46.8 mg/dL Normal [facility] Comment on above: Performed By: #### A 1C #### [facility] [address] [address] [address] Julisa Lowe Cholesterol.total/Chol esterol in HDL [Mass ratio] 2.2 {ratio} Normal [facility] Comment on above: Performed By: #### A 1C #### [facility] [address] [address] [address] Julisa Lowe HDL NORMAL > or = 60 mg/dl - LO W CARDIOVASCULAR RISK <40 mg/dl - HIGH CARDIOVASCULAR RISK Normal [facility] Comment on above: Performed By: #### A 1C #### [facility] [address] [address] [address] Julisa Lowe LDL CALC NORMAL SEE BELOW Normal [facility] Comment on above: Result Comment: <100 mg/dl OPTIMAL 100 - 129 mg/dl NEAR OR ABOVE OPTIMAL 130 - 159 mg/dl BORDERLINE HIGH 160 - 189 mg/dl HIGH >190 mg/dl VERY HIGH Performed By: #### A 1C #### [facility] [address] [address] [address] Julisa Lowe Triglyceride [Mass/Vol] 96 mg/dL Normal <=150 [facility] Comment on above: Performed By: #### A 1C #### [facility] [address] [address] [address] Julisa Lowe VLDL CALC 19.2 mg/dL Normal [facility] Comment on above: Performed By: #### A 1C #### [facility] [address] [place] [address] Dr. Julisa Lowe MICROALBUMIN, RAND URon 08-14 mALB 33.4 mg/L Critically high <=30.0 [facility] Comment on above: Performed By: #### S EDR #### [facility] [address] [place] [address] Dr. Julisa Lowe PROF 14(COMP METB)on 021 Albumin [Mass/Vol] 3.4 g/dL Critically low 3.5-5.0 [facility] Comment on above: Performed By: #### A 1C #### [facility] [address] [place] [address] Dr. Julisa Lowe Albumin/Globulin [Mass ratio] 1.3 {ratio} Normal [facility] Comment on above: Performed By: #### A 1C #### [facility] [address] [place] [address] Dr. Julisa Lowe ALP [Catalytic activity/Vol] 74 U/L Normal 38-126 [facility] Comment on above: Performed By: #### A 1C #### [facility] [address] [place] [address] Dr. Julisa Lowe ALT [Catalytic activity/Vol] 11 U/L Normal 9-52 [facility] Comment on above: Performed By: #### A 1C #### [facility] [address] [place] [address] Dr. Julisa Lowe Anion gap [Moles/Vol] 18.2 mmol/L Normal [facility] Comment on above: Performed By: #### A 1C #### [facility] [address] [place] [address] Dr. Julisa Lowe AST [Catalytic activity/Vol] 12 U/L Critically low 14-36 [facility] Comment on above: Performed By: #### A 1C #### [facility] [address] [place] [address] Dr. Julisa Lowe Bilirubin [Mass/Vol] 0.3 mg/dL Normal 0.2-1.3 [facility] Comment on above: Performed By: #### A 1C #### [facility] [address] [address] [address] Julisa Lowe Calcium [Mass/Vol] 9.3 mg/dL Normal 8.4-10.2 [facility] Comment on above: Performed By: #### A 1C #### [facility] [address] [address] [address] Julisa Lowe Chloride [Moles/Vol] 105 mmol/L Normal 98-107 [facility] Comment on above: Performed By: #### A 1C #### [facility] [address] [address] [address] Julisa Lowe Creatinine [Mass/Vol] 0.62 mg/dL Normal 0.52-1.04 [facility] Comment on above: Performed By: #### A 1C #### [facility] [address] [place] [address] Dr. Julisa Lowe EGFR-AF COLOMBIAN >60 Normal >=60 [facility] Comment on above: Performed By: #### A 1C #### [facility] [address] [address] [address] Julisa Lowe EGFR-NON AF COLOMBIAN >60 Normal >=60 [facility] Comment on above: Performed By: #### A 1C #### [facility] [address] [address] [address] Julisa Lowe Globulin (S) [Mass/Vol] 2.7 g/dL Normal [facility] Comment on above: Performed By: #### A 1C #### [facility] [address] [address] [address] Julisa Lowe Glucose [Mass/Vol] 134 mg/dL Critically high 74-106 [facility] Comment on above: Performed By: #### A 1C #### [facility] [address] [place] [address] Dr. Julisa Lowe Potassium [Moles/Vol] 4.3 mmol/L Normal 3.4-5.0 [facility] Comment on above: Performed By: #### A 1C #### [facility] [address] [place], [place] [address] Dr. Julisa Lowe Protein [Mass/Vol] 6.1 g/dL Normal 6.1-8.2 [facility] Comment on above: Performed By: #### A 1C #### [facility] [address] [address] [address] Julisa Lowe Sodium [Moles/Vol] 142 mmol/L Normal 137-145 [facility] Comment on above: Performed By: #### A 1C #### [facility] [address] [address] [address] Julisa Lowe Urea nitrogen [Mass/Vol] 23.0 mg/dL Critically high 7.0-17.0 [facility] Comment on above: Performed By: #### A 1C #### [facility] [address] [address] [address] Julisa Lowe Urea nitrogen/Creatinine [Mass ratio] 37.1 mg/mg Normal [facility] Comment on above: Performed By: #### A 1C #### [facility] [address] [address] [address] Julisa Lowe [facility] SARS-CoV-2 (COVID-19) RNA CHALINO+probe Ql (Unsp spec) Not detected Normal NOT DETECTED [facility] Comment on above: Result Comment: This test is not yet approved or cleared by the [place] FDA. When there are no FDA-approved or cleared tests available, and other criteria are met, FDA can make tests available under an emergency access mechanism called an Emergency Use Authorization (EUA). The EUA for this test is supported by the [place] of Health and Human Service's (HHS's) declaration that circumstances exist to justify the emergency use of in vitro diagnostics for the detection and/or diagnosis of the virus that causes COVID-19. This EUA will remain in effect (meaning this test can be used) for the duration of the COVID-19 declaration justifying emergency of IVDs, unless it is terminated or revoked by FDA (after which the test may no longer be used). When diagnostic testing is negative, the possibility of a false negative should be considered in the context of a patient's recent exposures and the presence of clinical signs and symptoms consistent with SARS-CoV-2. Performed By: #### [facility] #### [facility] [address] [address] [address] Julisa Lowe Social History Date Type Detail Facility Start: 04-14-2022 End: 04-28-2022 Alcohol intake Current non-drinker of alcohol (finding) [facility] Start: 04-04-2022 End: 05-12-2022 Exposure to SARS-CoV-2 (event) Not sure [facility] Start: 03-31-2016 End: 02-29-2024 Tobacco smoking status NHIS Never smoked tobacco [facility] Start: 03-31-2016 Tobacco use and exposure Smokeless tobacco non-user [facility] Start: 1950 Sex Assigned At Not on file C [facility] Start: 1950 Sex Assigned At Female F [facility] Sex Assigned At [facility] Tobacco smoking status Never [facility] Vital Signs Date Time Vital Sign Value Performing Clinician Facility 02-29-2024 10:35-0400 Blood Pressure Location [employer] [facility] 02-29-2024 10:35-0400 Diastolic blood pressure 78 mm[Hg] Shante [employer] [facility] 02-29-2024 10:35-0400 Heart rate 68 /min Shante Orzech [facility] 02-29-2024 10:35-0400 Respiratory rate 16 /min [employer] [facility] 02-29-2024 10:35-0400 Systolic blood pressure 132 mm[Hg] Shante [employer]ra [facility] 05-12-2022 15:00-0400 Diastolic blood pressure 49 mm[Hg] Chair Anthony Work Phone: [facility] 05-12-2022 15:00-0400 Heart rate 98 /min Chair Raj Work Phone: [facility] 05-12-2022 15:00-0400 SaO2% (BldA) [Mass fraction] 95 % Chair Raj Work Phone: [facility] 05-12-2022 15:00-0400 Systolic blood pressure 137 mm[Hg] Chair Raj Work Phone: [facility] 05-12-2022 13:30-0400 Body temperature 98.6 [degF] Chair Raj Work Phone: [facility] 05-12-2022 10:15-0400 Diastolic blood pressure 87 mm[Hg] MD Hood Benavidez Work Phone: [facility] 05-12-2022 10:15-0400 Heart rate 82 /min MD Hodo Benavidez Work Phone: [facility] 05-12-2022 10:15-0400 Respiratory rate 16 /min MD Hood Benavidez Work Phone: [facility] 05-12-2022 10:15-0400 SaO2% (BldA) [Mass fraction] 100 % MD Hood Benavidez Work Phone: [facility] 05-12-2022 10:15-0400 Systolic blood pressure 149 mm[Hg] MD Hood Benavidez Work Phone: [facility] 05-12-2022 07:54-0400 Body height 154.94 cm MD Hood Benavidez Work Phone: [facility] 05-12-2022 07:54-0400 Body weight 53.52 kg MD Hood Benavidez Work Phone: [facility] 05-06-2022 14:29-0400 Body temperature 99 [degF] Chair Anthony Work Phone: [facility] 05-06-2022 14:29-0400 Diastolic blood pressure 51 mm[Hg] Chair Denton Work Phone: [facility] 05-06-2022 14:29-0400 Heart rate 93 /min Chair Denton Work Phone: [facility] 05-06-2022 14:29-0400 Respiratory rate 16 /min Chair Raj Work Phone: [facility] 05-06-2022 14:29-0400 SaO2% (BldA) [Mass fraction] 98 % Chair Raj Work Phone: [facility] 05-06-2022 14:29-0400 Systolic blood pressure 129 mm[Hg] Chair Raj Work Phone: [facility] 04-28-2022 10:47-0400 Body temperature 98.91 [degF] Chair Raj Work Phone: [facility] 04-28-2022 10:47-0400 Diastolic blood pressure 64 mm[Hg] Chair Denton Work Phone: [facility] 04-28-2022 10:47-0400 Heart rate 88 /min Chair Raj Work Phone: [facility] 04-28-2022 10:47-0400 Respiratory rate 18 /min Chair Denton Work Phone: [facility] 04-28-2022 10:47-0400 SaO2% (BldA) [Mass fraction] 98 % Chair Denton Work Phone: [facility] 04-28-2022 10:47-0400 Systolic blood pressure 122 mm[Hg] Chair Raj Work Phone: [facility] 04-22-2022 14:02-0400 Body temperature 99 [degF] Chair Raj Work Phone: [facility] 04-22-2022 14:02-0400 Diastolic blood pressure 56 mm[Hg] Chair Denton Work Phone: [facility] 04-22-2022 14:02-0400 Heart rate 95 /min Chair Raj Work Phone: [facility] 04-22-2022 14:02-0400 Respiratory rate 18 /min Chair Raj Work Phone: [facility] 04-22-2022 14:02-0400 SaO2% (BldA) [Mass fraction] 96 % Chair Raj Work Phone: [facility] 04-22-2022 14:02-0400 Systolic blood pressure 123 mm[Hg] Chair Raj Work Phone: [facility] 10-14-2021 14:15-0500 Body height 154.94 cm Lawanda Olexa Other [facility] Other 10-14-2021 14:15-0500 Body mass index (BMI) [Ratio] 22.26 kg/m2 Lawanda Olexa Other [facility] Other 10-14-2021 14:15-0500 Body weight 53.43 kg Lawanda Olexa Other [facility] Other Functional Status Date Assessment Result Facility 02-29-2024 Functional Status N/A [facility] Clinical Notes 10-14-2021 to 03-05-2024 Telephone Encounter - Makenna Kendall RN - 04/21/2022 1:47 PM EDTTelephone Encounter - Makenna Kendall RN - 04/21/2022 1:31 PM EDTTelephone Encounter - Christi Fink MD - 04/14/2022 1:39 PM EDT Note Date & Type Note Facility 03-05-2024 Note Chief Complaint Referral *Incontinence HPI Staff Evaluation requested by Dr Shaikh Sparks due to postural urinary incontinence. Pt is a new pt. Last seen by ELHAM 02/22/19. DX: frequency, stress incontinence, nocturia, glycosuria Was started on Oxybutynin 5mg qd therapy at that time. No longer taking. Does not remember why. Increased incontinence over the last few months. When sitting up, rolling over when laying down. Does wear a brief. Goes through 4-6/day. Pt is diabetic (insulin dependant). Hx of Hysterectomy. Denies recent UTI. Attributes to drinking cranberry juice. PVR 43ml History of Present Illness I have reviewed and verified the staff HPI to be accurate for this encounter. Portions of this record may have been created with voice recognition artificial intelligence software, specifically [employer], [employer] and or [employer]. Substitutions may have occurred due to the inherent limitations of voice recognition and artificial intelligence software. Review of Systems PHQ Score Initial Depression Screen Score: 0 SCORE Physical Exam Vitals & Measurements HR: 68(Peripheral) RR: 16 BP: 132/78 HT: 61 in HT: 155 cm WT: 66.5 kg WT: 146.3 lb BMI: 27.68 General: Well developed, well nourished, in no acute distress. Genitourinary: Flank Pain: none. Bladder: nonpalpable. Assessment/Plan former DLS patient 1. OAB (overactive bladder) (N32.81: Overactive bladder) q1 hour frequency, urgency, dribbling on her way to the bathroom especially at night. PVR today 43 mL She was on oxybutynin in the distant past, does not recall what kind of results she got from this. She is unsure why she stopped it. Discussed use of anticholinergic and beta 3 agonists for bladder control. Typically, insurance requires the failure of two anticholinergic medications before considering beta 3 agonist such as Myrbetriq/Gemtesa. Even w/ insurance coverage, beta 3 agonist may be cost prohibitive. Discussed most common SEs of anticholinergic medications including dry eyes, dry mouth, constipation. May treat SEs symptomatically. Stop medication at report any intolerable SEs. Pt would like to trial medication for bladder control. Start trospium 20 mg twice daily. Rx sent to pharmacy. Patient to contact office if medication is not covered, is cost prohibitive, or is experiencing intolerable side effects. She verbalizes understanding. -Follow-up 8 weeks with PVR 2. Mixed incontinence (N39.46: Mixed incontinence) UUI > LEW Incontinence worsening over the last few months. She is going through 4-6 briefs daily, urge to void is worse when lying down, unable to get out of bed quick enough to make it to the toilet. We discussed bladder irritants, patient provided with she. We discussed timed voids, voiding maneuvers to ensure that she is emptying well. We discussed Kegel exercises to strengthen the pelvic floor, she was provided with literature regarding this. We discussed how the bowel can contribute to urinary symptoms, ensure regular soft bowel movements daily. See #1. 3. Nocturia (R35.1: Nocturia) 4x/night We discussed fluid restriction at least 2 hours prior to bedtime. 4. Unspecified urethral stricture, female (N35.92: Unspecified urethral stricture, female) s/p cystoscopy/UD 01/09/2019 by DLS Denies stream issues at this time, denies feeling of incomplete emptying. Patient does not recall if dilation improved her urinary symptoms in the past. She does not feel that she needs a repeat dilation at this time. 5. Bacteriuria (R82.71: Bacteriuria) UA today with large blood, positive nitrite, trace leuks She denies any recent urinary infection or symptoms of UTI at this time. Denies episode of gross hematuria. Increase fluid intake, ER for any significant flank pain, fever, nausea/vomiting. -Send urine for culture today, patient to call if she becomes symptomatic 6. Glucosuria (R81: Glycosuria) > 1000 glucose on UA today. Insulin dependent DM - follow w/ PCP for tight control 7. Proteinuria (R80.9: Proteinuria, unspecified) > 300 protein on UA today CKD stage III, continue to follow with PCP regarding this. Follow-up With When Contact Information AMALIA Shukla APRN, Sh[employer], FAM, URL Additional Instructions: 8 weeks with PVR Patient Education Urinary Incontinence Urinary Frequency, Adult Overactive Bladder, Adult Kegel Exercises Problem List/Past Medical History Ongoing Anemia due to chronic blood loss CLL (chronic lymphocytic leukemia) Female stress incontinence GERD without esophagitis Glucosuria Glycosuria History of CVA (cerebrovascular accident) Iron deficiency anemia due to chronic blood loss Mixed hyperlipidemia Nocturia PAF (paroxysmal atrial fibrillation) Postural urinary incontinence Primary hypertension Proteinuria Restless leg syndrome Stage 3 chronic kidney disease Type 2 diabetes mellitus with diabetic autonomic (poly)neuropathy (more content not included)... [facility] Comment on above: Result Comment: Elec tronically Signed By: AMALIA Shukla APRN, [place] [facility]\.br\Date and Time Signed: 03/05/24 22:19 EDT 04-21-2022 Miscellaneous Notes Pt has follow up appointment with Dr Rainey tomorrow. Makenna Kendall RN Spoke with Pankaj at Dr Rainey's office. Recent records and labs faxed to [phone] per office request. Makenna Kendall RN Message left with Dr Rainey's medical program specialist again today regarding this pt and the urgency of this being addressed. Will try again later today if I don't hear back from their office. Makenna Kendall RN Call placed to [facility]. Office is closed. Makenna Kendall RN PCP updated in chart Glucose rechecked in the office and it was 373 by fingerstick. Call placed to Dr Joseph who is listed at pt's PCP. Jono states he has not worked in the office in 4 years now. Jono states pt is now seen by Dr Rainey at [facility]. Call placed to their office ([phone]) and message left requesting a call back. PSS: can you please update pt's PCP info. Thanks, Makenna Kendall RN Thanks. Can we have her PCP address this, Thanks Key Monteiro from [facility] Client Services calls to report critical results: Glucose - 506 Pt identifiers and results read back for verification. Christy Mello RN documented in this encounter [facility] 04-16-2022 Miscellaneous Notes Called Angélica Romano spoke with Keny[facility]. She states they have patient scheduled to see Dr Benavidez on 05/12 for EGD. Adrienne Dodson Called Angélica Romano spoke with [facility]. She states they have called left patient message to call them back to schedule. Adrienne Dodson Called Angélica Romano spoke with [facility]. She states they have received this referral and their referral dept will be calling patient soon to schedule. I will call back sometime next week check on status of this referral. Adrienne Dodson Records faxed to Dr. Rich. Gladys: Information ready for you. Adrienne Dodson Images from the original note were not included. Please send records to [facility] office thanks! MD Tj Thompson; Makenna Hidalgo Sec Please refer her to GI for an upper endoscopy. Thanks documented in this encounter [facility] 04-15-2022 Evaluation note Encounter Date Diagnosis Assessment Notes Apr, Anemia due to blood loss, chronic (ICD-10 - D50.0) [facility] Other 08-02-2022 NoteHNO ID: [id number] Author: Brenda Tavera RN Service: ? Author Type: Registered Nurse Type: Progress Notes Filed: 04/14/2022 2:33 PM Note Text: Patient lab glucose 508, fingerstick recheck 373. Patient says she does not feel any different from the usual. Med list reviewed and updated. Patient confirms she is on metformin 1000 mg oral twice daily but has not taken any meds this morning as she was not sure if it would effect her iron. She is also on Humulin 70/[address] Fink aware and he has sent a message to LIZZY Bermeo to communicate to the PCP-Refer to phone encounter. Patient education complete regarding as follows: She is to take her morning meds as prescribed (on iron infusion days) She is to check her blood glucose as prescribed and adhere to the sliding scale as ordered She is to communicate with her PCP office with any questions, concerns, and follow up Emergent S/S reviewed Med list updated as appropriate and reviewed with patient per treatment nurse, Nikki Gilbert RN. She was given a copy. No other questions or concerns noted. She has verbalized understanding Brenda Tavera [facility] NoteHNO ID: [id number] Author: Christi Fink MD Service: ? Author Type: Physician Type: Progress Notes Filed: 04/14/2022 1:13 PM Note Text: PATIENT NAME: Robina Ron CLINIC NO.: [id number] ATTENDING PHYSICIAN: Christi Fink MD DATE OF SERVICE: April 14, [address] Sparks, here is an update on a follow up visit on female Robina Ron at the clinic 04/14/2022 Diagnosis: KARUNA Treatment History: 1. Venofer 04/14/2022 HPI: Robina Ron is a 71 year old year old female here for follow up. Feels tired and here to start IV Iron infusion. PAST MEDICAL HISTORY Diagnosis Date - A-fib (HCC) - Anemia - Asthma - Chronic low back pain with sciatica - COPD (chronic obstructive pulmonary disease) (HCC) - CVA (cerebral vascular accident) (HCC) - Diabetes mellitus (HCC) - Dyspnea - Factor V Leiden (HCC) - GERD (gastroesophageal reflux disease) - History of colon polyps - Hyperlipidemia - Hypertension - Hypokalemia - Leukocytosis - JARRET (obstructive sleep apnea) - PAD (peripheral artery disease) (HCC) - Pericardial effusion Social History Tobacco Use - Smoking status: Never Smoker - Smokeless tobacco: Never Used Substance Use Topics - Alcohol use: No - Drug use: No FAMILY HISTORY Problem Relation Age of Onset - Hypertension Mother - Leukemia Mother - other (Aortic Rupture) Father - other (Congestive Heart failure) Paternal Grandfather Past medical, social and family history reviewed without any changes. REVIEW OF SYSTEMS GENERAL: No weight loss, malaise or fevers. No night sweats. HEENT: Negative for headaches, No changes in hearing or vision, no nose bleeds or other nasal problems. RESPIRATORY: Negative for cough, wheezing and shortness of breath CARDIOVASCULAR: Negative for chest pain, leg swelling and palpitations GI: Negative for abdominal discomfort, blood in stools or black stools and change in bowel habits : Negative for dysuria, frequency and incontinence MUSCULOSKELETAL: Negative for joint pain or swelling, back pain, and muscle pain. SKIN: Negative for lesions, rash, and itching. HEMATOLOGY/LYMPHOLOGY Negative for prolonged bleeding, bruising easily, and swollen nodes. NEURO: Negative for numbness or tingling of hands/feet. No weakness. PHYSICAL EXAMINATION: BP 149/60 Pulse 80 Temp (Src) 97.9 (Temporal) Resp 16 Ht 5' 0 (1.52m) Wt 118 lb 3.2 oz (53.6kg) SpO2 95% BMI 23.08 kg/(m2). Wt 53.6 kg (118 lb 3.2 oz) BMI 23.08 kg/m2 Last 3 Encounter Wt Readings: Date: Wt: 04/14/2022 53.6 kg (118 lb 3.2 oz) 04/03/2022 53.6 kg (118 lb 3.2 oz) 11/10/2016 68 kg (150 lb) General appearance:ECOG PERFORMANCE STATUS: 1- Restricted in physically strenuous activity. Carries out light duty. Patient in NAD. Skin: Skin color, texture, turgor normal. No rashes or lesions. Eyes: Anicteric sclera. Pupils are equally round and reactive to light. Extraocular movements are intact. Lymph Nodes: No cervical, supraclavicular, axillary or inguinal adenopathy. Oropharynx: Lips, mucosa, and tongue normal. Back: No pain to percussion. Negative SLR test Lungs clear to auscultation, No wheezing or rhonchi Heart: RRR without murmur, gallop, or rubs. Abdomen soft, non-tender. No masses, organomegaly Extremities: No deformities. No edema Neuro: Gait and speech normal. Reflexes normal and symmetric. Muscular strength intact. Sensation grossly intact. Rectal: Deferred : Deferred LABS: Glucose (mg/dL) Date Value 04/14/2022 508 Potassium (mmol/L) Date Value 04/14/2022 3.6 Sodium (mmol/L) Date Value 04/14/2022 138 Chloride (mmol/L) Date Value 04/14/2022 103 CO2 (mmol/L) Date Value 04/14/2022 22 Creatinine (mg/dL) Date Value 04/14/2022 0.53 Creatinine, Whole Blood (iSTAT) (mg/dL) Date Value 11/10/2016 0.60 BUN (mg/dL) Date Value 04/14/2022 8 Anion Gap (mmol/L) Date Value 04/14/2022 13 Calcium, Total (mg/dL) Date Value 04/14/2022 9.1 Protein, Total (g/dL) Date Value 04/14/2022 5.4 11/10/2016 6.2 Albumin (g/dL) Date Value 04/14/2022 3.5 11/10/2016 4.2 Bilirubin, Total (mg/dL) Date Value 04/14/2022 0.2 11/10/2016 0.3 Alkaline Phosphatase (U/L) Date Value 04/14/2022 120 11/10/2016 134 AST (U/L) Date Value 04/14/2022 21 11/10/2016 13 ALT (U/L) Date Value 04/14/2022 15 11/10/2016 16 WBC Date Value Ref Range Status 04/14/2022 9.13 3.70 - 11.00 k/uL Final RBC Date Value Ref Range Status 04/14/2022 4.60 3.90 - 5.20 m/uL Final Hemoglobin Date Value Ref Range Status 04/14/2022 9.3 (L) 11.5 - 15.5 g/dL Final Hematocrit Date Value Ref Range Status 04/14/2022 33.1 (L) 36.0 - 46.0 % Final MCV Date Value Ref Range Status 04/14/2022 72.0 (L) 80.0 - 100.0 fL Final MCH Date Value Ref Range Status 04/14/2022 20.2 (L) 26.0 - 34.0 pg Final MCHC Date Value Ref Range Status 04/14/2022 28.1 (L) 30.5 - 36.0 g/dL Final RDW-CV Date (more content not included)...[facility]08-02-[facility] History of Present illness Narrative* Brenda Tavera RN - 04/14/2022 1:29 PM EDT Patient lab glucose 508, fingerstick recheck 373. Patient says she does not feel any different fromthe usual. Med list reviewed and updated. Patient confirms she is on metformin 1000 mg oral twice daily but has not taken any meds this morning as she was not sure if it would effect her iron. She is also on Humulin 70/[address] Fink aware and he has sent a message to LIZZY Bermeo to communicate to the PCP-Refer to phone encounter. Patient education complete regarding as follows: She is to take her morning meds as prescribed (on iron infusion days) She is to check her blood glucose as prescribed and adhere to the sliding scale as ordered She is to communicate with her PCP office with any questions, concerns, and follow up Emergent S/S reviewed Med list updated as appropriate and reviewed with patient per treatment nurse, Nikki Gilbert RN. She was given a copy. No other questions or concerns noted. She has verbalized understanding Brenda Tavera RN [facility] NoteHNO ID: [id number] Author: Christi Fink MD Service: ? Author Type: Physician Type: Progress Notes Filed: 04/04/2022 11:07 AM Note Text: PATIENT NAME: Robina Ron CLINIC NO.: [id number] ATTENDING PHYSICIAN: Christi Fink MD DATE OF SERVICE: April 03, [address] Shaikh Sparks thank you for referring Mrs. Robina Ron for an opinion regarding iron deficiency. CHIEF COMPLAINT: I am tired HPI: Robina Ron is a 71 year old year old female with past medical history significant for diabetes, atrial fibrillation for which she has been off Eliquis since July 2021, hypertension, previous history of CVA which was attributed to a factor V Leiden mutation for which she had been on Coumadin and subsequently transitioned to Eliquis which she has been off of as well as chronic obstructive pulmonary disease. There is also mention of a history of CLL based on a flow cytometry but she has not had absolute lymphocytosis and therefore may just have an abnormal clone which was identified on a previous flow cytometry. She is referred to our clinic due to microcytic anemia. She denies any melena or hematochezia. She denies any weight loss. She denies any changes in her bowel habits. She denies any vaginal bleeding. Her diet has been normal. She had a colonoscopy approximately 6 months ago which demonstrated some polyps and a year follow-up was recommended. She does not recall any history of upper endoscopy. She denies any history of heavy NSAID use. In January 2022 she underwent some laboratory assessments including hemoglobin of 8.5, MCV of 70. Platelets were within normal limits. White count was slightly elevated at 12.4 mostly neutrophils. She did not have lymphocytosis. Additional laboratory studies shows a ferritin of 7 B12 193. She was started on oral B12 replacement as well as oral iron replacement. Her anemia had worsened compared to a month prior. Her TSH and folic acid levels were normal. She does complain of ongoing fatigue. Current Outpatient Medications Medication Sig - cyanocobalamin (VITAMIN B-12) 1,000 mcg tab Take 1,000 mcg by mouth once daily. - lisinopril (ZESTRIL, PRINIVIL) 10 mg tablet Take 5 mg by mouth once daily. - ferrous sulfate EC 324 mg (65 mg iron) TbEC Take 324 mg by mouth daily with breakfast. - metoprolol tartrate, short acting, (LOPRESSOR) 50 mg tablet Take 50 mg by mouth twice daily. - dilTIAZem CD (CARDIZEM CD) 240 mg 24 hr capsule Take 240 mg by mouth once daily. - metFORMIN ER (FORTAMET) 1,000 mg 24 hr tablet Take 1,000 mg by mouth twice daily. - traZODone (DESYREL) 50 mg tablet Take 50 mg by mouth daily at bedtime. - albuterol sulfate (VENTOLIN HFA INHALATION) Inhale as instructed as needed. - lovastatin (MEVACOR) 20 mg tablet Take 40 mg by mouth daily at bedtime. - oxybutynin (DITROPAN) 5 mg tablet Take 5 mg by mouth three times daily. - pantoprazole DR (PROTONIX) 40 mg tablet Take 40 mg by mouth once daily. - rOPINIRole (REQUIP) 0.5 mg tablet Take 0.5 mg by mouth daily at bedtime. - DULoxetine (CYMBALTA) 20 mg capsule Take 20 mg by mouth twice daily. - dulaglutide (TRULICITY) 1.5 mg/0.5 mL pen injector Inject 1.5 mg subcutaneously one time a week. - dilTIAZem (CARDIZEM) 120 mg tablet Take 120 mg by mouth once daily. - ALBUTEROL SULFATE HFA INHALATION Inhale as instructed as needed. - ACETAMINOPHEN ORAL Take by mouth as needed. - ELIQUIS 5 mg tab tab(s) (Patient not taking: Reported on 03/31/2022 ) - carvedilol (COREG) 3.125 mg tablet Take 3.125 mg by mouth twice daily with meals. (Patient not taking: Reported on 03/31/2022 ) - cyclobenzaprine (FLEXERIL) 5 mg tablet Take 5 mg by mouth three times daily as needed. (Patient not taking: Reported on 03/31/2022 ) - gabapentin (NEURONTIN) 600 mg tablet Take 600 mg by mouth three times daily. (Patient not taking: Reported on 03/31/2022) - magnesium oxide 400 mg cap Take 400 mg by mouth once daily. (Patient not taking: Reported on 03/31/2022 ) - Kedlh-0-GWT-EPA-Fish Oil 1,000 mg (120 mg-180 mg) cap Take 2 g by mouth twice daily. (Patient not taking: Reported on 03/31/2022 ) - potassium chloride ER (K-DUR, KLOR-CON) 20 mEq tablet Take 20 mEq by mouth twice daily. - INSULIN DETEMIR (LEVEMIR SUBCUTANEOUS) Inject 50 Units subcutaneously daily at bedtime. (Patient not taking: Reported on 03/31/2022 ) - INSULIN ASPART (NOVOLOG SUBCUTANEOUS) Inject subcutaneously as needed. Dose varies. Joselyn Aviles (Patient not taking: Reported on 03/31/2022 ) No current facility-administered medications for this visit. ALLERGIES Allergen Reactions - Percocet [Oxycodone* Mental Status Change, Anaphylaxis - Spiriva With Handih* Unknown - Symbicort [Budesoni* Other: See Comments Tongue swelling PAST MEDICAL HISTORY Diagnosis Date - A-fib ([facility]) - Anemia - Asthma - Chronic low back pain with sciatica - COPD (chronic obstructive pulmonary disease) ([facility]) - CVA (cerebral (more content not included)...[facility] 12-22-2021 NoteCARDIAC STRESS TEST Requesting Physician: Procedure Date:12/22/2021 LEXISCAN CARDIOLITE STRESS TEST INDICATION: Chest pain. METHOD: After risks, benefits and alternatives were explained, the patient was brought to the Stress Lab in a resting and fasting state. She was connected to the appropriate hemodynamic and electrocardiographic monitoring. Lexiscan 0.4 mg was infused per protocol. She was monitored for the standard duration and discharged in a stable state. There were no complications. FINDINGS: HEMODYNAMICS: Resting heart rate was 95 beats per minute, increasing to a maximum of 123 beats per minute. Resting blood pressure was 1524/70, decreasing to a minimum of 138/66. ELECTROCARDIOGRAPHY: Rest EKG: Sinus rhythm, premature ventricular contractions, normal resting EKG. During infusion and recovery: No significant ST-T wave changes noted, no significant arrhythmia seen. FINAL IMPRESSIONS: 1. No ischemic EKG changes seen on Lexiscan Pharmacological Stress Test. 2. Nuclear images are to be read, interpreted and reported in a separate dictation. [facility] Signed and Approved by: DR ALFRED HAQUE 03/03/2022 10:18:00[id number]* Encounter Date Diagnosis Assessment Notes Treatment Notes Treatment Clinical Notes Oct, Separation of right acromioclavicular joint, type 3, initial encounter (ICD-10 - S43.101A) This appears to be a grade 3 acromioclavicular separation. We discussed non-operative and surgical treatment options for this injury. We will plan on non-operative treatment. We discussed active elbow and wrist motion exercise as well as passive pendulum shoulder exercise and progression to active motion as pain allows. Discussed use of ice and heat for pain relief. 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 If ferry terminal supervisor pain and dysfunction occur, surgical treatment can be considered. Patient given order for physical therapy. GRAVIDI Other Evaluation + Plan note Future Appointments Appointment Date:04/11/2024 09:00:00 AM Scheduled Provider:AMALIA Shukla APRN, [place] Location:[facility] Appointment Type:URO Office Visit [facility] evaluation + Plan note Future Appointments Appointment Date:04/11/2024 09:00:00 AM Scheduled Provider:AMALIA Shukla APRN, [place] [facility] Location:[facility] Appointment Type:URO Office Visit Diagnostic Tests Pending * [facility] [place] [facility] Diagnosis Iron deficiency anemia due to chronic blood loss- Primary Iron deficiency anemia secondary to blood loss (chronic) Controlled type 2 diabetes mellitus without complication, 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) documented in this encounter [facility] note* Diagnosis Iron deficiency anemia due to chronic blood loss- Primary Iron deficiency anemia secondary to blood loss (chronic) [facility] [place] [facility] Diagnosis Iron deficiency anemia due to chronic blood loss- Primary Iron deficiency anemia secondary to blood loss (chronic) [facility] [place] [facility]* Diagnosis Iron deficiency anemia due to chronic blood loss- Primary Iron deficiency anemia secondary to blood loss (chronic) documented in this encounter [facility] note* Diagnosis Iron deficiency anemia due to chronic blood loss- Primary Iron deficiency anemia secondary to blood loss (chronic) [facility] [place] [facility]* Diagnosis Onset Date Resolution Status Iron deficiency anemia acute [facility] Work Phone: History general Narrative - Reported* Type Description Date Medical History diabetes type 2 Medical History stroke Medical History mild form of leukemia Surgical History x2 Surgical History cateract removal bilateral Surgical History kidney and bladder surgery Surgical History choliectomy Hospitalization History listed above GRAVIDI Other Hospital course Narrative No data available for this section [facility] Hospital Discharge instructions No data available for this section [facility] progress note No data available for this section [facility] Medications Administered Section Inactive Administered Medications - up to 3 most recent administrations Medication Order MAR Action Action Date Dose Rate Site iron sucrose 200 mg in NaCl 0.9% 100ml (VENOFER) 200 mg, INTRAVENOUS, at 400 mL/hr, Administer over 15 Minutes, ONCE, 1 dose, On Wed04/14/22 at 1330, Please conduct a 30 minute post dose observation. New Bag/Syringe/Bottle 04/14/2022 1:35 PM EDT 200 mg 400 mL/hr Inactive Administered Medications - up to 3 most recent administrations Medication Order MAR Action Action Date Dose Rate Site iron sucrose 200 mg in NaCl 0.9% 100ml (VENOFER) 200 mg, INTRAVENOUS, at 400 mL/hr, Administer over 15 Minutes, ONCE, 1 dose, On Wed04/22/22 at 1400, Please conduct a 30 minute post dose observation. New Bag/Syringe/Bottle 04/22/2022 2:15 PM EDT 200 mg 400 mL/hr Inactive Administered Medications - up to 3 most recent administrations Medication Order MAR Action Action Date Dose Rate Site iron sucrose 200 mg in NaCl 0.9% 100ml (VENOFER) 200 mg, INTRAVENOUS, at 400 mL/hr, Administer over 15 Minutes, ONCE, 1 dose, On Wed04/28/22 at 1100, Please conduct a 30 minute post dose observation. New Bag/Syringe/Bottle 04/28/2022 11:08 AM EDT 200 mg 400 mL/hr Inactive Administered Medications - up to 3 most recent administrations Medication Order MAR Action Action Date Dose Rate Site iron sucrose 200 mg in NaCl 0.9% 100ml (VENOFER) 200 mg, INTRAVENOUS, at 400 mL/hr, Administer over 15 Minutes, ONCE, 1 dose, On Wed05/06/22 at 1430, Please conduct a 30 minute post dose observation. New Bag/Syringe/Bottle 05/06/2022 2:38 PM EDT 200 mg 400 mL/hr Inactive Administered Medications - up to 3 most recent administrations Medication Order MAR Action Action Date Dose Rate Site iron sucrose 200 mg in NaCl 0.9% 100ml (VENOFER) 200 mg, INTRAVENOUS, at 400 mL/hr, Administer over 15 Minutes, ONCE, 1 dose, On Wed05/12/22 at 1400, Please conduct a 30 minute post dose observation. New Bag/Syringe/Bottle 05/12/2022 2:13 PM EDT 200 mg 400 mL/hr Summary Purpose Family History No Family History Records Found Relationship Condition Age at Onset Recorded Date/T deisi Not Specified Coronary artery disease Unknown Advance Directives No Advanced Directives Records Found Advance Directive Response Recorded Date/ Time Advance Directives No September 26, 2018 1:12am Chief Complaint and Reason for Visit Chief Complaint Iron Deficiency Anem ia Chronic Blood Loss Iron Deficiency Anemia Chronic Blood Loss Reason for Visit Iron deficiency anem ia Additional Source Comments REASON FOR VISIT (unrecogniz ed section and content) Specialty Diagnoses / Procedures Referred By Contac t Referred To Contact Diagnoses Iron deficiency anemia due to chronic blood loss Procedures IRON SUCROSE INJECTION PER 1 MG Christi Fink MD [address] [place] [id number] Jasiel Treat [address] [place] [address] Referral ID Status Reason Start Date Expiration Date V isits Requested Visits Authorized [id number] Authorized 04/03/2022 09/12/2022 99 99 Reason Comments Appointment Confirmation Reason Comments Critical Results Glucose Source Comments (unrecognize d section and content) In the event this informatio n is protected by the Federal Confidentiality of Alcohol and Drug Abuse Patient Records regulations: The Federal rules restrict any use of the information to criminally investigate or prosecute any alcohol or drug abuse patient.[facility] the event this information is protected by the Federal Confidentiality of Alcohol and Drug Abuse Patient Records regulations: The Federal rules restrict any use of the information to criminally investigate or prosecute any alcohol or drug abuse patient.[facility] Campus[facility] the event this information is protected by the Federal Confidentiality of Alcohol and Drug Abuse Patient Records regulations: The Federal rules restrict any use of the information to criminally investigate or prosecute any alcohol or drug abuse patient.[facility] CampusIn the event this information is protected by the Federal Confidentiality of Alcohol and Drug Abuse Patient Records regulations: The Federal rules restrict any use of the information to criminally investigate or prosecute any alcohol or drug abuse patient.[facility] CampusIn the event this information is protected by the Federal Confidentiality of Alcohol and Drug Abuse Patient Records regulations: The Federal rules restrict any use of the information to criminally investigate or prosecute any alcohol or drug abuse patient.[facility] Campus[facility] the event this information is protected by the Federal Confidentiality of Alcohol and Drug Abuse Patient Records regulations: The Federal rules restrict any use of the information to criminally investigate or prosecute any alcohol or drug abuse patient.[facility] Campus[facility] the event this information is protected by the Federal Confidentiality of Alcohol and Drug Abuse Patient Records regulations: The Federal rules restrict any use of the information to criminally investigate or prosecute any alcohol or drug abuse patient.[facility] Care Teams (unrecognized sec tion and content) Supervisor Agricultural Education Relationship Specialty Start Date End Date Shaikh Sparks MD [address] [place] [address] PCP - General Primary Care 04/14/22 Supervisor Agricultural Education Relationship Specialty Start Date End Date Demetrio Joseph PCP - General Family Practice 03/09/16 04/13/22 Shaikh Sparks MD [facility] [place] [address] PCP - General Primary Care 04/14/22 Supervisor Agricultural Education Relationship Specialty Start Date End Date Shaikh Sparks MD [facility] [place] [address] PCP - General Primary Care 04/14/22 Supervisor Agricultural Education Relationship Specialty Start Date End Date Shaikh Sparks MD [facility] [place] [address] PCP - General Primary Care 04/14/22 Supervisor Agricultural Education Relationship Specialty Start Date End Date Shaikh Sparks MD [facility] [place] [address] PCP - General Primary Care 04/14/22 Supervisor Agricultural Education Relationship Specialty Start Date End Date Shaikh Sparks MD [address] [place] [address] PCP - General Primary Care 04/14/22 Supervisor Agricultural Education Relationship Specialty Start Date End Date Shaikh Sparks MD [address] [place] [address] PCP - General Primary Care 04/14/22 Team Status: Inactive Member Role Status Dates Hood Benavidez MD Attending Provider Active Shaikh Clare MD Primary Care Provider Active Team Status: Active Member Role Status Dates Shaikh Clare MD Primary Care Provider Active INFORMATION SOURCE (unrecogn ized section and content) DATE CREATED AUTHOR 05/14/2022 [facility] DATE CREATED AUTHOR AUTHOR'S ORGANIZ ATION 05/16/2022 [facility] DATE CREATED AUTHOR AUTHOR'S ORGANIZ ATION 07/07/2022 [facility] DATE CREATED AUTHOR AUTHOR'S ORGANIZ ATION 01/05/2024 [facility] DATE CREATED AUTHOR AUTHOR'S ORGANIZ ATION 03/03/2024 [facility] DATE CREATED AUTHOR AUTHOR'S ORGANIZ ATION 03/04/2024 [facility] DATE CREATED AUTHOR AUTHOR'S ORGANIZ ATION 03/05/2024 [facility] FOR RECORDS PERTAINING TO PATIENTS WHO ARE OR HAVE BEEN ENROLLED IN A CHEMICAL DEPENDENCY/SUBSTANCEABUSE PROGRAM, SOME INFORMATION MAY BE OMITTED. This clinical summary was aggregated from multiple sources. Caution should be exercised in using it in the provision of clinical care. This summary normalizes information from multiple sources, and as a consequence, information in this document may materially change the coding, format and clinical context of patient data. In addition, data may be omitted in some cases. CLINICAL DECISIONS SHOULD BE BASED ON THE PRIMARY CLINICAL RECORDS. [facility] [employer] provides no warranty or guarantee of the accuracy or completeness of information in this document.
== END 2024-03-08 10:56 | disposition home or self-care (01) ==
LOC: MAMMO 10:55
PROVIDERS: PCP Internal Medicine; Visit Provider Internal Medicine
DX: Z12.31 Encounter for screening mammogram for malignant neoplasm of breast (principal)
CPT/HCPCS: 77063; 77067

== ENCOUNTER 2024-04-05 12:42 | Outpatient (OUT) | payer MEDICARE, MEDICAID, SELFPAY ==
--- OUTSIDE RECORDS SUMMARY | 2024-04-05 12:58 | XMS_ITS | CCD ---
Author Organization [facility] Care Team Providers Care Expander Name Role Phone Lawanda Alvarez Unavailable Shaikh Sparks MD Primary Care Provider [phone] Demetrio Joseph Primary Care Provider Hood Benavidez Unavailable Shaikh Sparks MD Primary Care Provider MD Hood Benavidez Attending Provider MD Amy Sparks Primary Care Provider FAWWAD, WATERS H Consulting Unavailable FAWWAD, WATERS [...] MIKA, DR LJ Persaud Admitting Unavailabl e PATRICE GRAYSON Consulting [...] Attending Unavailable FAWWAD, WATERS Primary Care Physician Shante Shukla X Attending Unavailable Orzech Shante X Attending Unavailable FAWWAD, WATERS Referring Unavailable Orzech, Shante X Admitting Unavailable Orzech, Shante X Attending Unavailable ALGHOTHANI, MOHAMAD Attending Unavailable Allergies Allergy Classification Reported Allergen(s) Allergy Type Date of Onset Reaction(s) Facility Acetaminophen / oxyCODONE (1 source) Acetaminophen / oxyCODONE; Translations: [acetaminophen-ox ycodone] Drug Allergy Sleep terror disorder (disorder) [facility] Anticholinergics (1 source) tiotropium; Translations: [tiotropium] Drug Allergy Pharyngeal swelling (finding), Tongue swelling (finding) [facility] Opioid Agonists (1 source) oxyCODONE; Translations: [oxycodone] Drug Allergy Sleep terror disorder (disorder) [facility] (10 sources) Acetaminophen / oxyCODONE; Translations: [acetaminophen-ox ycodone] Drug Allergy 6 Mental Status Change, Anaphylaxis, Sleep terror disorder (disorder) [facility] (4 sources) tiotropium; Translations: [tiotropium] Drug Allergy anaphylaxis, Pharyngeal swelling (finding), Tongue swelling (finding) [facility] (7 sources) Budesonide / formoterol Drug Allergy 2 Other: See Comments [facility] (7 sources) tiotropium Drug Allergy 6 Unknown [facility] (4 sources) oxyCODONE; Translations: [Oxycodone] Drug Allergy 9 Sleep terror disorder (disorder) [facility] (2 sources) Acetaminophen / oxyCODONE; Translations: [Percocet] Drug Allergy 5 [facility] Repository (1 source) Acetaminophen / oxyCODONE; Translations: [OXYCODONE-ACETAM INOPHEN] Drug Allergy 5 [facility] Repository Medications Current Medications Medication Drug Class(es) Dates [...] 26, 2019 1:07pm take 1 capsule by [facility] once daily, then take 1 capsule by [...] (1 source) Anticholinergic, Corticosteroid, beta2-Adrenergic Agonist Start: 9 take 1 puff(s) by inhalation once daily [...] 28, 2018 10:17am take 1 capsule by [facility] every twenty-four hours Gabapentin 300 MG 1 [...] Comment on above: Take 1,000 mg by ruy th twice daily. oxybutynin chloride 5 mg oral [...] 391 mg oral capsule (2 sources) Start: 9 End: 2 take 1 capsule by mouth once daily [...] 2019 12:00am take 1 tablet by ruy every twenty-four hours Potassium Chloride ER 20 [...] BID, # 60 tab(s), Refills(s) 2, Pharmacy: [facility]/pharmacy #[id number], 155, cm, 02/29/24 10:38:00 EDT, Height/Length [...] Comment on above: Take 1,000 mcg by [facility] once daily. Completed/Discontinued Medications Medication Drug Class(es) [...] 50 mg by mouth daily at bedtime. Problems Active Problems Problem Classification Problem Date Documented Da te Episodic/Chronic Acute and unspecified renal failure (2 sources) Injury of kidney; Translations: [Acute kidney failure, unspecified] 09-26-2018 Episodic Cardiac dysrhythmias (12 sources) Atrial fibrillation; Translations: [Unspecified atrial fibrillation] [...] Translations: [PERSONAL HISTORY OF COVID-19] Onset: 2 Unclassified (1 source) Other pericardial effusion (noninflammatory); Translations: [Other pericardial effusion (noninflammatory)] Onset: 4 Past or Other Problems Problem Classification Problem [...] Onset: 12-22-2021 Episodic Other aftercare (1 source) 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; 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] Onset: 01-28-2022 Episodic Other aftercare (1 source) Other alf (current) drug therapy; Translations: [OTH FPC CURRENT DRUG THERAPY] Onset: 12-24-2021 Episodic Other aftercare (1 source) 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 drugs; Translations: [FPC USE ORAL HYPOGLYCEMIC DX] Onset: 12-24-2021 Episodic Other aftercare (1 source) 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; Translations: [FPC CURRNT USE ANTICOAGULANTS] Onset: 12-24-2021 Episodic Other [...] OTH PART DIGESTV TRACT] Onset: 12-24-2021 Episodic Unclassified (1 source) Other pericardial effusion (noninflammatory); Translations: [Other pericardial effusion (noninflammatory)] Onset: 03-14-2024 Urinary tract infections (2 sources) Acute urinary tract infection; Translations: [Urinary tract infection, site not specified] Onset: 12-24-2021 03-14-2019 Episodic Results Test Name Value Interpretation Reference Range Facility Office Visiton 03-14-2024 Follow-up visit [id number] Robina Ron 1950 F Date Provider Department Center 03/14/2024 [facility]8-EDD [facility] Family History Problem Relation Age of Onset Pulmonary embolism Father Family Status - Relation Status Age at Father Level of Service:71023 MS OFFICE/OUTPATIENT ESTABLISHED MOD MDM 30 MIN Normal [facility] Coding Summary.on 03-07-2024 Coding Summary. GTXDIagq40XZl6fIu+PG h lYWQ+FJ7TNYSqZ72obPOs qZ6pL5WTFVqPEjoqKCOUY KiVRfMmnaErNA8jxFOiFB Ju IC8+RH5yJYHzKymsmNViu 8C0yBR3C14qwj3dQEttgQ V6HVByLdZrhvrzo3gwhPd 6IDcuNmluOyBt DFPfgS80ZVQ9tH02Mu24k MSnvVByr1kqrRj7VfXwBA MzAYF6jDtfFPvim8AcQBF wF59gxDDit8T5 ZJIezZfyhDUyUnLhpPG6u N2qBLutfusvu5cvvzpiIn b6ln60bSHwo7H3gJM2V7Z lyrW4UHByjZUi BxjouIBXuF9hxneia4qqg uooVjLqKARcRUm2CCp3ZE UeiGtoEuKrUP52ZIW9NTP ekhIfS5UwASYl vHwgSrP9x8R2Hn2TA6LVZ zsfI0FOKTCZCBvvnXQ+PC 99lx00P8MlCyqvFko5SSC oSYO5zMI9dO3o RWGyFPema5S2sWG2N0Wiq yVmqq8ue8whSRZqJMncJ5 6jgQJmc8M5WXMceXY6LWS wlUpmXlMzyW99 Oyc+AAUkiSpwx8CcXptgo 3rlu9argKz3UrttFNBhkv HkjFudNDV0w3GvKy8hXYF zzQM3qFE0gA1f FrRiLbE9WWioS859KyHvt IMdRllrI35fY8YspOH+PH JqZms3QBVtxYlhRM4lI3M hZGRpbmctbGVm pRorGT7aOABuwktsVBDgy E1kKUEdU7u6AeMeHvS5NF lhN7EgTFEqofrbWr91wH6 bDiWrCbM1PKrv E3MsebD1WENrsJIpSPceO PS2D93hd5O6FBClQKXjSE V0uGT1jI3bgYfhqkunvQX mdDsgdmVydGlj XJsuFJchW584DZKacIsiH kNvZGluZyBEYXRlOiAgMD YvMjUvMjAyNDwvdGQ+PHR vEHZ8bNaiBFQw kWEgWDskGf0xqSlzqNcqL H5mRGVfckfaDBLpaC8lZV JwmYBrtNoxCA3yJSBgriv ej174HmBzFGB2 ONWiuNTbW6XdaI9tXbGyY AFrAPMiO7DtzNPbFJmsF4 70PAzzLrV0WMMpxtCtX1V sLWFsaWduOiB0 x0W1Ex0Fa4TntyzfQ9Ddw NRbAiUyAulgBUy6Q2TuFp wvdHI+EX96FBOnDR75EKj 5KOA4lFnzVHqh MNWsA8ObgI0qAsJcSGFuS GRkOyc+PHRhYmxlIHdpZH RoPScxMDAlJyBzdHlsZT0 wTs4qSPYrFTZo oXfanPFhWmLqw7osCXQyE VgyKB8taTccV5TcrKW4OA Uxn7a9Fr27E80bJ8DvoLX +RFHifPM7wVF4 aM1jGiRgVeX2MPbaM534Q uOjuPCbMfvtt0uvk8dkzW s1ChY1QKSxosLqlYvhVUD 7n6SzSv53O47c IHdpZHRoPSIxNSUiIHZhb Whesd9dlR9hCv8+PGNvbC Y0rUM4pO2yJbBhVlQ3UFv vH323ZhCutOXi Kbprz4ida7sxrJr5EtTeZ IXvbaUnbNvdFAO2f9NiRa 26K4FggNkqh9EyEbl2qb9 2qIGad5I5hHO5 N9TaLOWasbdhnWVkjCxvE Q4mFOEoyzdpOLTvoO7eHR LxS4e5IiYvYvY4VTiwP6R uflH9BEVobTYa BCOjrHKErR0mzzoiz0nob eomBuWfECNiQUe0JTg3BA KnyTmgIuIgGQA0QlS6XZL 0uYZomD3qaGte hxqbeR1wXvd+ICM3qEFij MMWOL5mXqdfsAI+PHRkIH L0dCnvLOjxPMJjfA8xDAD dG4u7BcScLeB7 IIvsA2HtgwK6DGKwaBRuH MDuuDCScE9aznkah8pgjr xdLoSeLSBbVPd1TEh6JFG saWduOiBsZWZ0 IyL9EJO4lBShrQ9iyMmrt okcpN1mHlc+QmlydGggRG K3UEk7W3OwGye4CRAxiMe fOX8xfKJmIDjx Sj4egEiajLhlJR6sKXShp usru936BlWfl1ayMNRjoM KyQSmqBHO3N05xl8G3YDO rSUEwFBC1lJA9 wP4miAwfgnqkrWWfjDmvd lPcvSlnUTkuBOrqI813LN TvfKbsTgDqUQb4B6RiPnw 8HTXlhHugCE7j eANfCKugJa2eeVtxlGfxC Q9aBTAxrowgy705DqTpn8 hgIAAnjHZiRDnjUDQ4A36 xn6M8USEoITWq CSR3dQB5kY3wyPnhftbvg GVmdDsgdmVydGljYWwtYW fdY909LCUmkIlnEuIhjFh 5G1BcCac0AAGw hVnrRT4hvDOqKXxmCl8xp RxczXftYF7qSTJqujnmc4 77CoVtq6ozRUTqyKGiFWp kXVD4H47se0Z2 SIDkOJDrJGU0yXK1xD5me GlnbjogbGVmdDsgdmVydG ldOHfjLUrvN027HKPwxMv nPlBhdGllbnQg YTzmXFg4A8KwYbpxeII+P E92XXPuAQ20vRYsmVXrc6 kumRa8GgHsCDSkVKM0qXw vLYvfl5RbAFYo O38oxDKuo3W4ZOVjhEnlt FGvYxKkyEF8wV8jMHjiby lss6qssfxbMuohq5xtkh3 6xI46D29yWQou ZHRoPSIzMCUiIHZhbGlnb l5hoY4bJh1+WNCqbRY9oY D5dT6pLHKlNxL0RFhpC15 9InRvcCIvPjxj n6shh2adtRk0AsW0XBVza bPxdPckPIN2p2KmNv07K1 9sIHdpZHRoPSIyMCUiIHZ lxAtoqk0lqC3v Ii8+ZOSrtSR0lSC6xE5kM sKbStV2IMxvT714XcMmyG WqVijjQ12yZ1SkqAQ+PHR qXps9NUJggNrh SB6cyOJrUHwhMe5mKWD8P oEaUlKfMVwiD6JpZQVapm ugikkrkPZ1YJUbRJMnpO9 0Ip5kdDoeXLRr sEBGyX1azzxdk9gwdqnwL sVfSENpJGe8VEl2WWVtiQ sbHzSgBME3CeP7VLK9eJR qoY1jePwhvzfb sJ5sV6GnNHTbqnbfXe44j B9vQrKeIdV9KUzkXos+TE MYGVfjP9GVVDsYPM7iYMv vdGQ+PHRkIHN0 wTpjQVqtLDDimZ1eOEOtJ 1b5HpGfPmW2KPubW1VtNK YglhaqOl57fE0mTjPnSnX 6EWsqG0LvwiC5 RTDruQNfWTaiVAN6Z46cu 7N1DHAoSUCdNFV7lRR3rB 1hbGlnbjogbGVmdDsgdmV ydGljYWwtYWxp F329GCXjjUmpBiGsGkTyE zA9RKK0Q7OeRld2QARgsC wqUA5rmUFvUKgzZm5mfRh eqIbdRX0uXALh wucdJXPypQ9fCUBceOHhp PmlDU2bJYXvlntpt375Rk JyPCA1KIGgySKnB2IpdN9 yOiAjMDAwMDAw Z3QofNDqCIhdG926UPreP mB2THErkrBeR6HcCJUctU upNzX0v2B3Wk86UtLCSZJ yczwvdGQ+PHRk YWX9xZfqORdvTWHhgZ1fH AXiW2v2YjQvZbV4MEinD9 CaDPSoqjdjAt02bQ6kCbB wFoZ3TGrcQ2Hj owB9WXBypCWlTBqmKZV2J 75ie2I1WSQpMUAiJUX4tA V2qM7vcWblqaziuMCmyAn gdmVydGljYWwt KNvyJ034YMTqyWhjUeBfd WFsZTwvdGQ+EMFfQPH7gK ozGNjvNUIssY2gGWBwC9y 3FcNhNlE3BGrn G1EpIBDxwxdxVo25bL3fY rDgNwW2XRnhQ1OfroM5II GvxPMiTVzkZZY1N16pa6O 7VLBiUSFdLBL1 zIP7jC8rlXpildmpbANfw DsgdmVydGljYWwtYWxpZ2 10XSXvwMclKolhVcTSwm6 gDD6kYjupmON+ MQ14qx32Y6WxDofwIdx3W HBbQBS7sFG1uN1cNGJxDK tvw8X9oAH0G1CtazBaaj2 jt3nwSEWdGBgj S83noUDos0F3CDOhaBI2G FSgcDakXeMhvK43Qru+PG XstMmhi9PxRoscf5nmo5j eiKd5SaFhEKKr efCleZnlADB6s7BdZz08X 29sIHdpZHRoPSIzMCUiIH VtjBtjfx9koN1tGl4+PGN zjDT1sSO2kC7p WbNgOtV9HYgdJ762RwTiy EYzApiyc0ooy5hnoXf2Uc AwJIBdloAiaZwiRYO1e4X lPt75D9WraLdt w0UpAey1gn67aMEaq1A4o KP1B0DiFOQywhrudRYwmA ztRC1sNWHgkxdoGWLmeU9 zBBMuW4y4OaIf HjM7LCtkX0KmriP6ZTYoe PZaEFCbqANLdC2tzlulb5 jpingkMcJhTLVmRAo2CXo 0LWFsaWduOiBs OFU5AkQ6NYE9vMKupT6sh EzlkdfyoT3qPbp+UGh5c2 erdLZsFO2raKI1KM59FL6 1aHMkb9E5fHZ0 C4RxMJNkulmkkfqkxDM5F OVoGVKonW72Ra7bfTswNp 7dHUIsPAS9WOKtvLWiG7K ulT4nNkMqAHAg VCUhD4PqxXBsQIisJ713P OyiPeI0TETsxnXsK5KuSU PxoZvdSeX7p9L2Qq2MJW0 5QU80SC73aPDq h5B7kOK9E8NhZHXfyxepm oqtyBL5PUKtVJOweX54Ye 7urChkIs0zJENaPLY3LNB wxIZjO4VkfO0k SeVsDEUkETFkV3RihVDmB ZndR435RBjdAjN3XZXnxl SrQ2JxOAZwzWkqSkO3l7S 2Hk3MDy74NX94 JN67bUWzs4P6aXG6F5FtO SEbkfiipyvrbHG8TMQfDT JuvZ36Yb6oeIjwAb9qGHO lLUB1LAQnsDLb Z6UzrS1qVxSmJUYhNAFkY 1FwzTBlZKgaZ479GPltDw H3RQZtmuFyP0KrVSIsoHx oEwG2z8W7Jz4D TApxjis9M4KnNgflzNL+P T49MUGrPD02oDUyxIZaz2 lxgRp6YyEeJGPrYIJ7xVq zCSphx4SoABOp P73wvBGtz4S4E (more content not included)... Normal [place] Patient Educationon 03-05-20 Patient Education Obstetrics and [...] health care provider. General instructions ? Take iexn-hgy-yxiuysi and prescription medicines only as told by [...] monitor yo (more content not included)... Normal [place] C Urineon 03-02-2024 Bacteria identified Cx Nom (U) Microbiology PROCEDURE: Urine Culture [R1] SOURCE: U Random BODY SITE: COLLECTED DATE/TIME: 02/29/2024 11:27 EDT RECEIVED DATE/TIME: 02/29/2024 18:25 EDT START DATE/TIME: 02/29/2024 18:25 EDT FREE TEXT SOURCE: AMALIA Shukla APRN, BRENDA Shukla APRN-Marbin, Shante Frey X FINAL REPORTS Final Report [...] Locations R1: This test was performed at: [facility], [address] [place] [address], [id number] , [place], [facility] Comment on above: Performed By: #### 2 [id number] #### [facility] [address] [place] [address] Physician Referralon 024 Physician Referral [id number] [facility] Screenson 03-01-2024 Screens [id number] [facility] Ambulatory Visit Summaryon 0 02-29-2024 Ambulatory Visit Summary ARIADNEROBINA Villavicencio :1950 Visit Date:02/29/2024 Ambulatory Visit Instructions Your [...] for choosing us for your care. Normal [place] GLYCOHEMOGLOBIN A1Con 2021 ADA RECOMMENDATION SEE BELOW Normal [place] Comment on above: Result Comment: ADA RECOMMENDED LIMIT 4.0 - 6.0 ADA THERAPEUTIC TARGET < 7.0 ACTION SUGGESTED > 7.0 Performed By: #### A 1C #### [facility] [address] [address] [address] Julisa Lowe Glucose [Mass/Vol] 235 mg/dL Normal [facility] Comment on above: Performed By: #### A 1C #### [facility] [address] [address] [address] Julisa Lowe HbA1c (Bld) [Mass fraction] 9.8 % Critically high 4.5-6.2 [facility] Comment on above: Performed By: #### A 1C #### [facility] [address] [address] [address] Julisa Lowe PROF CHEM 8 (BAS METB)on Anion gap [Moles/Vol] 17.7 mmol/L Normal [facility] Comment on above: Performed By: #### B MP #### [facility] [address] [address] [address] Julisa Lowe Calcium [Mass/Vol] 9.3 mg/dL Normal 8.5-10.1 [place] Comment on above: Performed By: #### B MP #### [facility] [address] [address] [address] Julisa Lowe Chloride [Moles/Vol] 107 mmol/L Normal 98-107 [facility] Comment on above: Performed By: #### B MP #### [facility] [address] [address] [address] Julisa Lowe CO2 [Moles/Vol] 24.3 mmol/L Normal 21.0-32.0 [facility] Comment on above: Performed By: #### B MP #### [facility] [address] [address] [address] Julisa Lowe Creatinine [Mass/Vol] 0.90 mg/dL Normal 0.55-1.02 [facility] Comment on above: Performed By: #### B MP #### [facility] [address] [address] [address] Julisa Lowe EGFR-AF MEXICAN >60 Normal >=60 [facility] Comment on above: Performed By: #### B MP #### [facility] [address] [address] [address] Julisa Lowe EGFR-NON AF MEXICAN >60 Normal >=60 [facility] Comment on above: Performed By: #### B MP #### [facility] [address] [address] [address] Julisa Lowe Glucose [Mass/Vol] 196 mg/dL Critically high 74-106 [facility] Comment on above: Performed By: #### B MP #### [facility] [address] [address] [address] Julisa Lowe Potassium [Moles/Vol] 5.0 mmol/L Normal 3.5-5.1 [facility] Comment on above: Performed By: #### B MP #### [facility] [address] [address] [address] Julisa Lowe Sodium [Moles/Vol] 144 mmol/L Normal 136-145 [place] Comment on above: Performed By: #### B MP #### [facility] [address] [address] [address] Julisa Lowe Urea nitrogen [Mass/Vol] 33.0 mg/dL Critically high 7.0-18.0 [facility] Comment on above: Performed By: #### B MP #### [facility] [address] [address] [address] Julisa Lowe Urea nitrogen/Creatinine [Mass ratio] 36.7 mg/mg Normal [facility] Comment on above: Performed By: #### B MP #### [facility] [address] [address] [address] Julisa Lowe Basophils Auto (Bld) [#/Vol] Ordered By: Hood Benavidez on 05-12-2022 Basophils (Bld) [#/Vol] 0.1 10*3/uL 0.0-0.2 [facility] Basophils/100 WBC Auto (Bld) Ordered By: Hood Benavidez on 05-12-2022 Basophils/100 WBC (Bld) 0.7 % . [facility] Blood hemoglobin measurement (mass/volume)Ordered By: Hood Benavidez on 05-12-2022 Hemoglobin (Bld) [Mass/Vol] 11.8 g/dL 11.8-15.4 [facility] Blood leukocytes automated c ount (number/volume)Ordered By: Hood Benavidez on 05-12-2022 WBC (Bld) [#/Vol] 7.6 10*3/uL 4.5-11.0 [facility] CT biopsyOrdered By: Meran Benavidez on 05-12-2022 Transferrin [Mass/Vol] 206 mg/dL 180-380 [facility] Complete Blood Count Auto Di ffon 05-12-2022 Basophils (Bld) [#/Vol] 0.1 10*3/uL Normal 0.0-0.2 [facility] Comment on above: Result Comment: PERF ORMED BY: [place] [address] PATHOLOGIST MEDICAL SURGERY NURSE JENY DODGE M.D. Performed By: #### F E and TIBC, KATHY, [id number], CBC #### [address] Basophils/100 WBC (Bld) 0.7 % Normal . [facility] Comment on above: Performed By: #### F E and TIBC, KATHY, [id number], CBC #### [address] Eosinophils (Bld) [#/Vol] 0.1 10*3/uL Normal 0.0-0.45 [facility] Comment on above: Performed By: #### F E and TIBC, KATHY, [id number], CBC #### [address] Eosinophils/100 WBC (Bld) 1.6 % Normal . [facility] Comment on above: Performed By: #### F E and TIBC, KATHY, [id number], CBC #### [address] Erythrocyte distribution width (RBC) [Ratio] 27.8 % High 11.9-15.3 [facility] Comment on above: Performed By: #### F E and TIBC, KATHY, [id number], CBC #### [address] Hematocrit (Bld) [Volume fraction] 37.5 % Normal 34.0-46.4 [facility] Comment on above: Performed By: #### F E and TIBC, KATHY, [id number], CBC #### [address] Hemoglobin (Bld) [Mass/Vol] 11.8 g/dL Normal 11.8-15.4 [facility] Comment on above: Performed By: #### F E and TIBC, KATHY, [id number], CBC #### [address] [address] [place] Lymphocytes (Bld) [#/Vol] 2.4 10*3/uL Normal 1.00-4.8 [facility] Comment on above: Performed By: #### F E and TIBC, KATHY, [id number], CBC #### [address] Lymphocytes/100 WBC (Bld) 32.0 % Normal . [facility] Comment on above: Performed By: #### F E and TIBC, KATHY, [id number], CBC #### [address] MCH (RBC) [Entitic mass] 24.2 pg Low 24.7-34.3 [facility] Comment on above: Performed By: #### F E and TIBC, AKTHY, [id number], CBC #### [address] MCV (RBC) [Entitic vol] 76.9 fL Low 80-100 [facility] Comment on above: Performed By: #### F E and TIBC, KATHY, [id number], CBC #### [address] Mean Corpuscular HGB Conc 31.4 g/dL Low 32.0-35.0 [facility] Comment on above: Performed By: #### F E and TIBC, KATHY, [id number], CBC #### [address] Monocytes (Bld) [#/Vol] 0.4 10*3/uL Normal 0.0-0.8 [facility] Comment on above: Performed By: #### F E and TIBC, KATHY, [id number], CBC #### [address] Monocytes/100 WBC (Bld) 5.8 % Normal . [facility] Comment on above: Performed By: #### F E and TIBC, KATHY, [id number], CBC #### [address] Neutrophils (Bld) [#/Vol] 4.6 10*3/uL Normal 1.8-7.7 [facility] Comment on above: Performed By: #### F E and TIBC, KATHY, [id number], CBC #### [address] Neutrophils/100 WBC (Bld) 59.9 % Normal . [facility] Comment on above: Performed By: #### F E and TIBC, KATHY, [id number], CBC #### [address] Nucleated RBC/100 WBC (Bld) [Ratio] 0.2 % Normal 0-0.5 [facility] Comment on above: Performed By: #### F E and TIBC, KATHY, [id number], CBC #### [address] Platelet mean volume (Bld) [Entitic vol] 6.5 fL Normal 6.3-10.7 [facility] Comment on above: Performed By: #### F E and TIBC, KATHY, [id number], CBC #### [address] Platelets (Bld) [#/Vol] 231 10*3/uL Normal 150-450 [facility] Comment on above: Performed By: #### F E and TIBC, KATHY, [id number], CBC #### [address] RBC (Bld) [#/Vol] 4.88 10*6/uL Normal 3.60-5.00 [facility] Comment on above: Performed By: #### F E and TIBC, KATHY, [id number], CBC #### [address] WBC (Bld) [#/Vol] 7.6 10*3/uL Normal 4.5-11.0 [facility] Comment on above: Performed By: #### F E and TIBC, KATHY, [id number], CBC #### [facility] [address] [id number] [place] Eosinophils Auto (Bld) [#/Vo l]Ordered By: Hood Benavidez on 05-12-2022 Eosinophils (Bld) [#/Vol] 0.1 10*3/uL 0.0-0.45 [facility] Eosinophils/100 WBC Auto (Bl d)Ordered By: Hood Benavidez on 05-12-2022 Eosinophils/100 WBC (Bld) 1.6 % . [facility] Erythrocyte distribution wid th Auto (RBC) [Ratio]Ordered By: Hood Benavidez on 05-12-2022 Erythrocyte distribution width (RBC) [Ratio] 27.8 % 11.9-15.3 [facility] Ferritinon 05-12-2022 Ferritin [Mass/Vol] 218.6 ng/mL Normal 11-306.8 [facility] Comment on above: Performed By: #### F E and TIBC, KATHY, [id number], CBC #### [facility] [address] [id number] [facility] Ferritin [Mass/volume] in Se rum or PlasmaOrdered By: Hood Benavidez on 05-12-2022 Ferritin [Mass/Vol] 218.6 ng/mL 11-306.8 [facility] Folate [Mass/volume] in Seru m or PlasmaOrdered By: Hood Benavidez on 05-12-2022 Folate [Mass/Vol] 7.9 ng/mL >5.9 [facility] Comment on above: Folate reference ran ge: >5.9 ng/ml The WHO technical consultation on folate and vitamin b12 deficiencies has determined that folate concentrations less than 4 ng/ml are considered deficient. Glucose Glucometer (BldC) [M ass/Vol]Ordered By: Hood Benavidez on 05-12-2022 Glucose [Mass/Vol] 426 mg/dL [facility] Comment on above: Random Glucose Refer ence Range is dependent on time and content of last meal. Glucose of more than 200 mg/dL in a nonstressed, ambulatory subject supports the diagnosis of Diabetes Mellitus. Glucose Poct Glucometerson 0 05-12-2022 Commemt1 Normal [facility] Comment on above: Result Comment: Glu2 : Result Not Confirmed PERFORMED BY: [place] [address] PATHOLOGIST MEDICAL SURGERY NURSE JENY DODGE M.D. Performed By: #### G VANESSA #### Point of Care testing , Glucose [Mass/Vol] 426 mg/dL Off scale high [facility] Comment on above: Result Comment: [facility] Glucose Reference Range is dependent on time and content of last meal. Glucose of more than 200 mg/dL in a nonstressed, ambulatory subject supports the diagnosis of Diabetes Mellitus. Performed By: #### G VANESSA #### Point of Care testing , Hematocrit Auto (Bld) [Volum e fraction]Ordered By: Hood Benavidez on 05-12-2022 Hematocrit (Bld) [Volume fraction] 37.5 % 34.0-46.4 [facility] Iron [Mass/volume] in Serum or PlasmaOrdered By: Hood Benavidez on 05-12-2022 Iron [Mass/Vol] 48 ug/dL 40-150 [facility] Iron and TIBC Profileon 04-15 % Iron Saturation 16.0 % Low 20-50 [facility] Comment on above: Performed By: #### F E and TIBC, KATHY, [id number], CBC #### [facility] [address] [place] [address] Iron [Mass/Vol] 48 ug/dL Normal 40-150 [facility] Comment on above: Performed By: #### F E and TIBC, KATHY, [id number], CBC #### [facility] [address] [place] [address] Total Iron Binding Capacity 288 ug/dL Normal 255-450 [facility] Comment on above: Performed By: #### F E and TIBC, KATHY, [id number], CBC #### [facility] [address] [place] [address] [place] Transferrin [Mass/Vol] 206 mg/dL Normal 180-380 [facility] Comment on above: Performed By: #### F E and TIBC, KATHY, [id number], CBC #### [facility] [address] Iron binding capacity [Mass/ volume] in Serum or PlasmaOrdered By: Hood Benavidez on 05-12-2022 Iron binding capacity [Mass/Vol] 288 ug/dL 255-450 [facility] Iron saturation [Mass Fracti on] in Serum or PlasmaOrdered By: Hood Benavidez on 05-12-2022 Iron saturation [Mass fraction] 16.0 % 20-50 [facility] [place] 05-12-2022 L - -------- Specimen: [id number] Received: 05/12/22 Status: CORRY Hernandez Num: [id number] Spec Type: Surgical Subm Dr: Hood Benavidez MD Tissues: A Duodenum - Biopsy (DUODENAL BX) Procedures: HE Stain/2, Gross/Micro L4 -------- Age/ Patient Sex Location Account Attending Physician -------- Robina Ron 71/F [id number] Hood Benavidez MD -------- SPEC NUM: [id number] RECD: 05/12/22 STATUS: CORRY HERNANDEZ NUM: [id number] PROSPER: 05/12/[address] [facility] [address]: Hood Benavidez MD ENTERED: 05/12/[address] [facility] [address]: VELASQUEZ TYPE: Surgical DEPT: S ORDERED: HE Stain/2, Gross/Micro L4 ORDERED: HE Stain/2, Gross/Micro L4 Pathological Diagnosis Duodenum, biopsy: - Small intestinal mucosa showing no specific pathologic changes - Preserved villous and crypt architecture - Negative for active inflammation Clinical Information Iron deficiency Gross Description Received in 10% neutral buffered formalin, labeled with the patient's name, number and duodenal biopsy, rule out sprue is one fragment of soft tissue measuring 0.8 x 0.5 x 0.2 cm. Entirely submitted in one cassette labeled A1. (LG) Microscopic Description Two glass slides with H E stained material have been examined. The microscopic findings support the above pathologic diagnosis. [id number] -------- -------- Specimen: [id number] Received: 05/12/22 Status: CORRY Hernandez Num: [id number] Spec Type: Surgical Subm Dr: Hood Benavidez MD Tissues: A Duodenum - Biopsy (DUODENAL BX) Procedures: HE Stain/2, Gross/Micro L4 -------- Patient: Robina Ron [id number] (Continued) -------- Signed (signature on file) Jeny Dodge MD 05/13/221655 Normal [facility] - Chemistry and C hemistry - challengeOrdered By: Hood Benavidez on 05-12-2022 Cobalamin (Vitamin B12) [Mass/Vol] 277 pg/mL 180-914 [facility] - Hematology and Cell countsOrdered By: Hood Benavidez on 05-12-2022 Nucleated RBC/100 WBC (Bld) [Ratio] 0.2 % 0-0.5 [facility] Lymphocytes Auto (Bld) [#/Vo l]Ordered By: Hood Benavidez on 05-12-2022 Lymphocytes (Bld) [#/Vol] 2.4 10*3/uL 1.00-4.8 [facility] Lymphocytes/100 WBC Auto (Bl d)Ordered By: Hood Benavidez on 05-12-2022 Lymphocytes/100 WBC (Bld) 32.0 % . [facility] MCH Auto (RBC) [Entitic mass ]Ordered By: Hood Benavidez on 05-12-2022 MCH (RBC) [Entitic mass] 24.2 pg 24.7-34.3 [facility] MCHC Auto (RBC) [Mass/Vol]Or dered By: Hood Benavidez on 05-12-2022 MCHC (RBC) [Mass/Vol] 31.4 g/dL 32.0-35.0 [facility] MCV Auto (RBC) [Entitic vol] Ordered By: Hood Benavidez on 05-12-2022 MCV (RBC) [Entitic vol] 76.9 fL 80-100 [facility] Monocytes Auto (Bld) [#/Vol] Ordered By: Hood Benavidez on 05-12-2022 Monocytes (Bld) [#/Vol] 0.4 10*3/uL 0.0-0.8 [facility] Monocytes/100 WBC Auto (Bld) Ordered By: Hood Benavidez on 05-12-2022 Monocytes/100 WBC (Bld) 5.8 % . [facility] Neutrophils Auto (Bld) [#/Vo l]Ordered By: Hood Benavidez on 05-12-2022 Neutrophils (Bld) [#/Vol] 4.6 10*3/uL 1.8-7.7 [facility] Neutrophils/100 WBC Auto (Bl d)Ordered By: Hood Benavidez on 05-12-2022 Neutrophils/100 WBC (Bld) 59.9 % . [facility] No Panel InformationOrdered By: Hood Benavidez on 05-12-2022 Bedside Glucose Comment See comment [facility] Comment on above: Glu2: Result Not Con firmed Platelet mean volume Auto (B ld) [Entitic vol]Ordered By: Hood eBnavidez on 05-12-2022 Platelet mean volume (Bld) [Entitic vol] 6.5 fL 6.3-10.7 [facility] Platelets Auto (Bld) [#/Vol] Ordered By: Hood Benavidez on 05-12-2022 Platelets (Bld) [#/Vol] 231 10*3/uL 150-450 [facility] RBC Auto (Bld) [#/Vol]Ordere d By: Hood Benavidez on 05-12-2022 RBC (Bld) [#/Vol] 4.88 10*6/uL 3.60-5.00 [facility] Vit. B12/Folate Profileon Cobalamin (Vitamin B12) [Mass/Vol] 277 pg/mL Normal 180-914 [facility] Comment on above: Performed By: #### F E and TIBC, KATHY, [id number], CBC #### [facility] [address] Folate 7.9 ng/mL Normal >5.9 [facility] Comment on above: Result Comment: Katelyn te reference range: >5.9 ng/ml The WHO technical consultation on folate and vitamin b12 deficiencies has determined that folate concentrations less than 4 ng/ml are considered deficient. PERFORMED BY: [place] [address] PATHOLOGIST MEDICAL SURGERY NURSE JENY DODGE M.D. Performed By: #### F E and TIBC, KATHY, [id number], CBC #### [facility] [address] COVID-19 FRMCon 05-07-2022 SARS-CoV-2 (COVID-19) RNA CHALINO+probe Ql (Unsp spec) Negative Normal Negative [facility] Comment on above: Order Comment: Healt hcare Worker?: N Result Comment: Testing for SARS-CoV-2 by RT-PCR This test was developed and its performance characteristics determined by [employer] ([employer]) and validated at the [facility]. This test has not been FDA cleared [...] is terminated or revoked sooner. PERFORMED BY: [facility] [address] [facility]. [place] [id number] PATHOLOGIST MEDICAL SURGERY NURSE JENY DODGE M.D. Performed By: #### C OVID 19 [facility] #### [address] COVID-19 Positive/NegativeOr dered By: Hood Benavidez on 05-07-2022 SARS-CoV-2 (COVID-19) N gene CHALINO+probe Ql (Resp) Negative Negative [facility] Comment on above: Testing for SARS-CoV -2 by RT-PCR This test was developed and its performance characteristics determined by [employer] ([employer]) and validated at the [facility]. This test has not been FDA cleared [...] Basophils (Bld) [#/Vol] 0.03 10*3/uL Normal <0.11 [facility] Comment on above: Order Comment: Speci men Type: BLOOD SPECIMEN Ordering Facility: [facility] Address: [address] [place] [address] Performed By: #### 5 7021-8, 09893-2 #### [facility] CLIA [id number] [address] [place] [address] 84487 Basophils/100 WBC (Bld) 0.3 % Normal [facility] Comment on above: Order Comment: Speci men Type: BLOOD SPECIMEN Ordering Facility: [facility] Address: [address] [place] [address] Performed By: #### 5 7021-8, 89881-0 #### [facility] CLIA [id number] [address] [place] [address] 50190 Differential cell count method Nom (Bld) Auto Normal [facility] Comment on above: Order Comment: Speci men Type: BLOOD SPECIMEN Ordering Facility: [facility] Address: [address] [place] [address] Performed By: #### 5 7021-8, 10585-8 #### [facility] CLIA [id number] [address] [place] [address] 71728 Eosinophils (Bld) [#/Vol] 0.09 10*3/uL Normal <0.46 [facility] Comment on above: Order Comment: Speci men Type: BLOOD SPECIMEN Ordering Facility: [facility] Address: [address] [place] [address] Performed By: #### 5 7021-8, 58633-9 #### [facility] CLIA [id number] [address] [place] [address] 92450 Eosinophils/100 WBC (Bld) 1.0 % Normal [facility] Comment on above: Order Comment: Speci men Type: BLOOD SPECIMEN Ordering Facility: [facility] Address: [address] [place] [address] Performed By: #### 5 7021-8, 65388-0 #### [facility] CLIA [id number] [address] [place] [address] 49124 Erythrocyte distribution width (RBC) [Ratio] 20.4 % High 11.5-15.0 [facility] Comment on above: Order Comment: Speci men Type: BLOOD SPECIMEN Ordering Facility: [facility] Address: [address] [place] [address] Performed By: #### 5 7021-8, 71067-7 #### [facility] CLIA [id number] [address] [place] [address] 00468 Hematocrit (Bld) [Volume fraction] 33.1 % Low 36.0-46.0 [facility] Comment on above: Order Comment: Speci men Type: BLOOD SPECIMEN Ordering Facility: [facility] Address: [address] [place] [address] Performed By: #### 5 7021-8, 69799-5 #### [facility] CLIA [id number] [address] [place] [address] 54235 Hemoglobin (Bld) [Mass/Vol] 9.3 g/dL Low 11.5-15.5 [facility] Comment on above: Order Comment: Speci men Type: BLOOD SPECIMEN Ordering Facility: [facility] Address: [address] [place] [address] Performed By: #### 5 7021-8, 25717-5 #### [facility] CLIA [id number] [address] [place] [address] 25796 IMMATURE GRAN % 0.9 % Normal [facility] Comment on above: Order Comment: Speci men Type: BLOOD SPECIMEN Ordering Facility: [facility] Address: [address] [place] [address] Performed By: #### 5 7021-8, 66245-5 #### [facility] CLIA [id number] [address] [place] [address] 17487 IMMATURE GRAN ABS 0.08 k/uL Normal <0.10 [facility] Comment on above: Order Comment: Speci men Type: BLOOD SPECIMEN Ordering Facility: [facility] Address: [address] [place] [address] Performed By: #### 5 7021-8, 85661-3 #### [facility] CLIA [id number] [address] [place] [address] 88063 Lymphocytes (Bld) [#/Vol] 2.43 10*3/uL Normal 1.00-4.00 [facility] Comment on above: Order Comment: Speci men Type: BLOOD SPECIMEN Ordering Facility: [facility] Address: [address] [place] [address] Performed By: #### 5 7021-8, 51966-5 #### [facility] CLIA [id number] [address] [place] [address] 55112 Lymphocytes/100 WBC (Bld) 26.6 % Normal [facility] Comment on above: Order Comment: Speci men Type: BLOOD SPECIMEN Ordering Facility: [facility] Address: [address] [place] [address] Performed By: #### 5 7021-8, 59172-9 #### [facility] CLIA [id number] [address] [place] [address] 28150 MCH (RBC) [Entitic mass] 20.2 pg Low 26.0-34.0 [facility] Comment on above: Order Comment: Speci men Type: BLOOD SPECIMEN Ordering Facility: [facility] Address: [address] [place] [address] Performed By: #### 5 7021-8, 59609-5 #### [facility] CLIA [id number] [address] [place] [address] 64736 MCHC (RBC) [Mass/Vol] 28.1 g/dL Low 30.5-36.0 [facility] Comment on above: Order Comment: Speci men Type: BLOOD SPECIMEN Ordering Facility: [facility] Address: [address] [place] [address] Performed By: #### 5 7021-8, 14283-9 #### [facility] CLIA [id number] [address] [place] [address] 96287 MCV (RBC) [Entitic vol] 72.0 fL Low 80.0-100.0 [facility] Comment on above: Order Comment: Speci men Type: BLOOD SPECIMEN Ordering Facility: [facility] Address: [address] Performed By: #### 5 7021-8, 31122-2 #### [facility] CLIA [id number] [address] [place] [address] 72356 Monocytes (Bld) [#/Vol] 0.48 10*3/uL Normal <0.87 [facility] Comment on above: Order Comment: Speci men Type: BLOOD SPECIMEN Ordering Facility: [facility] Address: [address] [place], [place] [address] Performed By: #### 5 7021-8, 83093-6 #### [facility] CLIA [id number] [address] [place] [address] 91153 Monocytes/100 WBC (Bld) 5.3 % Normal [facility] Comment on above: Order Comment: Speci men Type: BLOOD SPECIMEN Ordering Facility: [facility] Address: [address] [place], [place] [address] Performed By: #### 5 7021-8, 69492-1 #### [facility] CLIA [id number] [address] [place] [address] 88974 Neutrophils (Bld) [#/Vol] 6.02 10*3/uL Normal 1.45-7.50 [facility] Comment on above: Order Comment: Speci men Type: BLOOD SPECIMEN Ordering Facility: [facility] Address: [address] Performed By: #### 5 7021-8, 59591-3 #### [facility] CLIA [id number] [address] [place] [address] 70588 Neutrophils/100 WBC (Bld) 65.9 % Normal [facility] Comment on above: Order Comment: Speci men Type: BLOOD SPECIMEN Ordering Facility: [facility] Address: [address] [place], [place] [address] Performed By: #### 5 7021-8, 88591-5 #### [facility] CLIA [id number] [address] [place] [address] Nucleated RBC (Bld) [#/Vol] 10*3/uL Normal <0.01 [facility] Comment on above: Order Comment: Speci men Type: BLOOD SPECIMEN Ordering Facility: [facility] Address: [address] [place] [address] Performed By: #### 5 7021-8, 50270-4 #### [facility] CLIA [id number] [address] [place] [address] 07506 Nucleated RBC/100 WBC (Bld) [Ratio] 0.0 /100 WBC Normal [facility] Comment on above: Order Comment: Speci men Type: BLOOD SPECIMEN Ordering Facility: [facility] Address: [address] [place] [address] Performed By: #### 5 7021-8, 22792-8 #### [facility] CLIA [id number] [address] [place] [address] 79853 Platelet mean volume (Bld) [Entitic vol] 7.7 fL Low 9.0-12.7 [facility] Comment on above: Order Comment: Speci men Type: BLOOD SPECIMEN Ordering Facility: [facility] Address: [address] [place] [address] Performed By: #### 5 7021-8, 30307-5 #### [facility] CLIA [id number] [address] [place] [address] 68049 Platelets (Bld) [#/Vol] 318 10*3/uL Normal 150-400 [facility] Comment on above: Order Comment: Speci men Type: BLOOD SPECIMEN Ordering Facility: [facility] Address: [address] [place] [address] Performed By: #### 5 7021-8, 96177-4 #### [facility] CLIA [id number] [address] [place] [address] 75606 RBC (Bld) [#/Vol] 4.60 10*6/uL Normal 3.90-5.20 [facility] Comment on above: Order Comment: Speci men Type: BLOOD SPECIMEN Ordering Facility: [facility] Address: [address] [place], [place] [address] [address] Performed By: #### 5 7021-8, 39616-2 #### [facility] CLIA [id number] [address] [place] [address] 34799 WBC (Bld) [#/Vol] 9.13 10*3/uL Normal 3.70-11.00 [facility] Comment on above: Order Comment: Speci men Type: BLOOD SPECIMEN Ordering Facility: [facility] Address: [address] [place], [place] [address] [address] Performed By: #### 5 7021-8, 63263-2 #### [facility] CLIA [id number] [address] [place] [address] 38871 CNOVSPon 04-14-2022 CNOVSP Visit (SP) Office ([facility]) ARIADNEROBINA Villavicencio ([id number]) 1950 F Date Time Provider Department 04/14/22 1:15 PM CHRISTI FINK During your visit today, we recorded the following information about you: Temperature Pulse Respiration Blood pressure 97.9 degrees 80/minute 16/minute 149/60 Weight Height 53.6 kg 1.524 m Christi Fink MD 04/14/2022 1:13 PM Signed PATIENT NAME: Robina Ron CLINIC NO.: [id number] ATTENDING PHYSICIAN: Christi Fink MD DATE OF SERVICE: April 14, [address] Sparks, here is an update on a follow up visit on female Robina Ron at the clinic 04/14/2022 Diagnosis: KARUNA Treatment History: 1Cherry Venofer 04/14/2022 HPI: Robina Ron is a [...] Date Valu (more content not included)... Normal [facility] CNPNon 04-14-2022 CNPN Telephone ([place]) ROBINA RON ([id number]) 1950 F Date Time Provider Department 04/14/22 CHRISTY MELLO During your visit today, we recorded the following information about you: Christy Mello RN 04/14/2022 1:25 PM Signed Key Monteiro from [facility] Client Services calls to report critical [...] is now seen by Dr Rainey at [facility]. Call placed to their office ([phone]) and message left requesting a call back. PSS: can you please update pt's PCP info. Thanks, JOS Bustamante Pss 04/14/2022 2:03 PM Signed PCP updated in chart Makenna Kendall RN 04/17/2022 10:39 AM Signed Call placed to [facility]. Office is closed. JOS Bustamante RN 04/21/2022 12:55 PM Signed Message left with Dr Rainey's clinical specialist medical device again today regarding this pt and the urgency of this being addressed. Will try again later today if I don't hear back from their office. JOS Bustamante RN 04/21/2022 1:35 PM Signed Spoke with Pankaj at Dr Rainey's office. Recent records and labs faxed to [phone] per office request. JOS Bustamante RN 04/21/2022 1:48 PM Signed Pt has follow up appointment with Dr Rainey tomorrow. Makenna eKndall RN Allergies As of Date: 04/14/2022 Noted [...] Status:Closed by MAKENNA KENDALL on 04/21/22 Normal [facility] Comprehensive metabolic 2000 panelon 04-14-2022 Albumin [Mass/Vol] 3.5 g/dL Low 3.9-4.9 [facility] Comment on above: Order Comment: Speci men Type: BLOOD SPECIMEN Ordering Facility: [facility] Address: [address] [id number] Performed By: #### 2 4323-8 #### [facility] CLIA [id number] [address] [place] [address] 50276 ALP [Catalytic activity/Vol] 120 U/L Normal 34-123 [facility] Comment on above: Order Comment: Speci men Type: BLOOD SPECIMEN Ordering Facility: [facility] Address: [address] [id number] Performed By: #### 2 4323-8 #### [facility] CLIA [id number] [address] [place] [address] 47028 ALT [Catalytic activity/Vol] 15 U/L Normal 7-38 [facility] Comment on above: Order Comment: Speci men Type: BLOOD SPECIMEN Ordering Facility: [facility] Address: [address] Performed By: #### 2 4323-8 #### [facility] CLIA [id number] [address] [place] [address] Anion gap [Moles/Vol] 13 mmol/L Normal 9-18 [facility] Comment on above: Order Comment: Speci men Type: BLOOD SPECIMEN Ordering Facility: [facility] Address: [address] [place] [address] Performed By: #### 2 4323-8 #### [facility] CLIA [id number] [address] [place] [address] AST [Catalytic activity/Vol] 21 U/L Normal 13-35 [facility] Comment on above: Order Comment: Speci men Type: BLOOD SPECIMEN Ordering Facility: [facility] Address: [address] [place] [address] Performed By: #### 2 4323-8 #### [facility] CLIA [id number] [address] [place] [address] 74119 Bilirubin [Mass/Vol] 0.2 mg/dL Normal 0.2-1.[address] [facility] Comment on above: Order Comment: Speci men Type: BLOOD SPECIMEN Ordering Facility: [facility] Address: [address] [place] [address] Performed By: #### 2 4323-8 #### [facility] CLIA [id number] [address] [place] [address] 47609 Calcium [Mass/Vol] 9.1 mg/dL Normal 8.5-10.2 [facility] Comment on above: Order Comment: Speci men Type: BLOOD SPECIMEN Ordering Facility: [facility] Address: [address] [place], [place] [address] Performed By: #### 2 4323-8 #### [facility] CLIA [id number] [address] [place] [address] Chloride [Moles/Vol] 103 mmol/L Normal 97-[address] [facility] Comment on above: Order Comment: Speci men Type: BLOOD SPECIMEN Ordering Facility: [facility] Address: [address] [place] [address] Performed By: #### 2 4323-8 #### [facility] CLIA [id number] [address] [place] [address] CO2 [Moles/Vol] 22 mmol/L Normal 22-30 [facility] Comment on above: Order Comment: Speci men Type: BLOOD SPECIMEN Ordering Facility: [facility] Address: [address] [place] [address] Performed By: #### 2 4323-8 #### [facility] CLIA [id number] [address] [place] [address] 07747 Creatinine [Mass/Vol] 0.53 mg/dL Low 0.58-0.96 [facility] Comment on above: Order Comment: Speci men Type: BLOOD SPECIMEN Ordering Facility: [facility] Address: [address] [place] [address] Performed By: #### 2 4323-8 #### [facility] CLIA [id number] [address] [place] [address] 58698 ESTIMATED GLOMERULAR FILTRATION RATE 99 mL/min/1.73m??? Normal >=60 [facility] Comment on above: Order Comment: Speci men Type: BLOOD SPECIMEN Ordering Facility: [facility] Address: [address] [place] [address] Result Comment: Kaylynn mated Glomerular Filtration Rate [...] GFR. Performed By: #### 2 4323-8 #### [facility] CLIA [id number] [address] [place] [address] 99754 Glucose [Mass/Vol] 508 mg/dL High 74-99 [facility] Comment on above: Order Comment: Speci men Type: BLOOD SPECIMEN Ordering Facility: [facility] Address: [address] [place], [place] [address] Result Comment: The [place] [employer] (ADA) provides guidance for cutoff [...] Standards of Medical Care in Diabetes 2016, [place] [employer]. Diabetes Care. 2016.39(Suppl 1). Performed By: #### 2 4323-8 #### [facility] CLIA [id number] [address] [place] [address] 86745 Potassium [Moles/Vol] 3.6 mmol/L Low 3.7-5.1 [facility] Comment on above: Order Comment: Nel men Type: BLOOD SPECIMEN Ordering Facility: [facility] Address: [address] [place] [address] Performed By: #### 2 4323-8 #### [facility] CLIA [id number] [address] [place] [address] 51199 Protein [Mass/Vol] 5.4 g/dL Low 6.3-8.0 [facility] Comment on above: Order Comment: Speci men Type: BLOOD SPECIMEN Ordering Facility: [facility] Address: [address] [place], [place] [address] Performed By: #### 2 4323-8 #### [facility] CLIA [id number] [address] [place] [address] 26602 Sodium [Moles/Vol] 138 mmol/L Normal 136-144 [facility] Comment on above: Order Comment: Speci men Type: BLOOD SPECIMEN Ordering Facility: [facility] Address: [address] [place], [place] [address] Performed By: #### 2 4323-8 #### [facility] CLIA [id number] [address] [place] [address] 57606 Urea nitrogen [Mass/Vol] 8 mg/dL Normal 7-21 [facility] Comment on above: Order Comment: Speci men Type: BLOOD SPECIMEN Ordering Facility: [facility] Address: [address] [place], [place] [address] Performed By: #### 2 4323-8 #### [facility] CLIA [id number] [address] [place] [address] 10157 Ferritin SerPl-mCncon 2021 Ferritin [Mass/Vol] 15.5 ng/mL Normal 14.7-205.1 [facility] Comment on above: Order Comment: Speci men Type: BLOOD SPECIMEN Ordering Facility: [facility] Address: [address] [place], [place] [address] Performed By: #### 2 276-4, 02834-7 #### [facility] CLIA [id number] [address] [place] [address] [place] GLUCOSE, BLOOD (POC)on 04-14 Glucose [Mass/Vol] 373 mg/dL Abnormal 74 - 99 mg/dL [facility] Iron and Iron binding capaci ty panelon 04-14-2022 Iron [Mass/Vol] 17 ug/dL Low 41-186 [facility] Comment on above: Order Comment: Speci men Type: BLOOD SPECIMEN Ordering Facility: [facility] Address: [address] [place], [place] [address] Performed By: #### 2 276-4, 21556-8 #### [facility] CLIA [id number] [address] [place] [address] [place] Iron binding capacity [Mass/Vol] 337 ug/dL Normal 232-386 [facility] Comment on above: Order Comment: Speci men Type: BLOOD SPECIMEN Ordering Facility: [facility] Address: [address] [place], [place] [address] Performed By: #### 2 276-4, 49041-6 #### [facility] CLIA [id number] [address] [place] [address] [place] Iron/TIBC [Molar ratio] 5.0 % Low 15.0-57.0 [facility] Comment on above: Order Comment: Speci men Type: BLOOD SPECIMEN Ordering Facility: [facility] Address: [address] [place], [place] [id number] Performed By: #### 2 276-4, 75915-6 #### [facility] CLIA [id number] [address] [place] [address] [place] Retics #on 04-14-2022 Reticulocytes (Bld) [#/Vol] 0.49834 10*3/uL Normal 0.018-0.100 [facility] Comment on above: Order Comment: Speci men Type: BLOOD SPECIMEN Ordering Facility: [facility] Address: [address] [place], [place] [id number] Performed By: #### 5 7021-8, 09342-2 #### [facility] CLIA [id number] [address] [place] [address] Reticulocytes (Bld) [#/Vol]o n 04-14-2022 Reticulocytes/100 RBC (Bld) 1.8 % Normal 0.4-2.0 [facility] Comment on above: Order Comment: Speci men Type: BLOOD SPECIMEN Ordering Facility: [facility] Address: [address] [place], [place] [id number] Performed By: #### 5 7021-8, 32975-3 #### [facility] CLIA [id number] [address] [place] [address] CBC AUTO DIFFon 04-08-2022 BASO # 0.0 103/ul Normal 0.0-0.1 [facility] Comment on above: Performed By: #### A 1C #### [facility] [address] [address] [address] Julisa Lowe Basophils/100 WBC (Bld) 0.4 % Normal 0.2-2.0 [facility] Comment on above: Performed By: #### A 1C #### [facility] [address] [address] [address] Julisa Lowe EO # 0.2 103/ul Normal 0.0-0.7 [facility] Comment on above: Performed By: #### A 1C #### [facility] [address] [address] [address] Julisa Lowe Eosinophils/100 WBC (Bld) 1.7 % Normal 0.9-7.0 [facility] Comment on above: Performed By: #### A 1C #### [facility] [address] [address] [address] Julias Lowe Erythrocyte distribution width (RBC) [Ratio] 20.8 % Critically high 11.0-15.0 [facility] Comment on above: Performed By: #### A 1C #### [facility] [address] [address] [address] Julisa Lowe Hematocrit (Bld) [Volume fraction] 34.9 % Critically low 36.0-48.0 [facility] Comment on above: Performed By: #### A 1C #### [facility] [address] [address] [address] Julisa Lowe Hemoglobin (Bld) [Mass/Vol] 10.0 g/dL Critically low 12.0-16.0 [facility] Comment on above: Performed By: #### A 1C #### [facility] [address] [address] [address] Julisa Lowe IG # 0.08 10e3/ul Critically high 0.00-0.03 [facility] Comment on above: Performed By: #### A 1C #### [facility] [address] [address] [address] Julisa Lowe IG % 0.7 % Critically high 0.0-0.5 [facility] Comment on above: Performed By: #### A 1C #### [facility] [address] [place] [address] Dr. Julisa Lowe LYMPH # 3.6 103/ul Normal 1.2-3.8 [facility] Comment on above: Performed By: #### A 1C #### [facility] [address] [place] [address] Dr. Julisa Lowe Lymphocytes/100 WBC (Bld) 33.3 % Normal 20.5-60.0 [facility] Comment on above: Performed By: #### A 1C #### [facility] [address] [place] [address] Dr. Julisa Lowe MANUAL DIFF REQ NO Normal [facility] Comment on above: Performed By: #### A 1C #### [facility] [address] [place] [address] Dr. Julisa Lowe MCH (RBC) [Entitic mass] 20.2 pg Critically low 26.7-34.0 [facility] Comment on above: Performed By: #### A 1C #### [facility] [address] [place] [address] Dr. Julisa Lowe MCHC (RBC) [Mass/Vol] 28.7 g/dL Critically low 29.9-35.2 [facility] Comment on above: Performed By: #### A 1C #### [facility] [address] [place] [address] Dr. Julisa Lowe MCV (RBC) [Entitic vol] 70.6 fL Critically low 81.0-99.0 [facility] Comment on above: Performed By: #### A 1C #### [facility] [address] [place] [address] Dr. Julisa Lowe MONO # 0.6 103/ul Normal 0.3-0.8 [facility] Comment on above: Performed By: #### A 1C #### [facility] [address] [place] [address] Dr. Julisa Lowe Monocytes/100 WBC (Bld) 5.4 % Normal 1.7-12.0 [facility] Comment on above: Performed By: #### A 1C #### [facility] [address] [place] [address] Dr. Julisa Lowe NEUT # 6.4 103/ul Normal 1.4-6.5 [facility] Comment on above: Performed By: #### A 1C #### [facility] [address] [place] [address] Dr. Julisa Lowe Neutrophils/100 WBC (Bld) 58.5 % Normal 43.0-75.0 [facility] Comment on above: Performed By: #### A 1C #### [facility] [address] [place] [address] Dr. Julisa Lowe Platelet mean volume (Bld) [Entitic vol] 8.1 fL Critically low 9.5-13.5 [facility] Comment on above: Performed By: #### A 1C #### [facility] [address] [place] [address] Dr. Julisa Lowe PLT 325 103/ul Normal 150-450 [facility] Comment on above: Performed By: #### A 1C #### [facility] [address] [place] [address] Dr. Julisa Lowe RBC 4.94 106/ul Normal 4.20-5.40 [facility] Comment on above: Performed By: #### A 1C #### [facility] [address] [place] [address] Dr. Julisa Lowe WBC 10.9 103/ul Normal 4.0-11.0 [facility] Comment on above: Performed By: #### A 1C #### [facility] [address] [place] [address] Dr. Julisa Lowe FERRITINon 04-08-2022 Ferritin [Mass/Vol] 15.0 ng/mL Normal 8.0-252.0 [facility] Comment on above: Performed By: #### A 1C #### [facility] [address] [place] [address] Dr. Julisa Hopkins 04-06-2022 [facility] ROB[facility]ON ([id number]) 1950 F Date Time Provider Department 04/06/22 CHRISTI FINK During your visit today, we recorded the following information about you: Makenna Hidalgo Sec 04/06/2022 7:49 AM Signed Please send records to [facility] office thanks! MD Aparna Thompsony Lalocarina; Makenna Hidalgo Sec Please refer her to GI for an upper endoscopy. ?Thanks Adrienne [facility] 04/06/2022 8:12 AM Signed Gladys: Information ready for you. Adrienne [facility] Shaye Paloma Gonzalez [facility] 04/06/2022 8:57 AM Signed Records faxed to Dr. Rich. Adrienne [facility] 04/09/2022 8:40 AM Signed Called Angélica patel with [facility]. She states they have received this referral and their referral dept will be calling patient soon to schedule. I will call back sometime next week check on status of this referral. [facility]/13/[facility] 1:18 PM Signed Called Angélica patel with [facility]. She states they have called left patient message to call them back to schedule. Adrienne [facility] 04/16/2022 9:07 AM Signed Called Angélica Romano spoke with [facility]. She states they have patient scheduled to see Dr Benavidez on 05/12 for EGD. [facility] Allergies As of Date: 04/06/2022 Noted Allergy Reaction PERCOCET (OXYCODONE-ACETAMINOP HEN)03/31/2016 1 - Mental Status Change 10 - Anaphylaxis SPIRIVA WITH HANDIHALER (TIOTROPI*03/31/2016 16 - Unknown SYMBICORT (BUDESONIDE-FORMOTERO L) 03/31/2022 14 - Other: See Comments Comments: Tongue swelling Date Reviewed: 04/04/2022 Reviewed by: Christi Fink MD - Fully Assessed Reason for Visit: Appointment Confirmation [[id number]] Prescriptions as of 04/16/2022 - insulin NPH [...] Encounter Status:Closed by TJ HUNTER on 04/16/22 [facility] CNOVSPon 04-03-2022 OVS Visit (SP) Office ([facility]) ROBINA RON ([id number]) 1950 F Date Time Provider Department 04/03/22 4:30 PM CHRISTI FINK During your visit today, we recorded the following information about you: Temperature Pulse Respiration Blood pressure 97.4 degrees 90/minute 16/minute 107/38 Weight Height 53.6 kg 1.524 m Christi Fink MD 04/04/2022 11:07 AM Signed PATIENT NAME: Robina Ron CLINIC NO.: [id number] ATTENDING PHYSICIAN: Christi Fink MD DATE OF [...] not taking: Reported on 03/31/2022 ) - Rwdof-9-HMB-EPA-Fish Oil 1,000 mg (120 mg-180 mg) cap [...] [Oxycodone* Mental (more content not included)... Normal [facility] ECHO LIMITED STUDYon 02-06-2 022 ECHO LIMITED STUDY Patient: ROBINA RON Exam Date: 02/06/2022 : 1950 Gender:F Ordering : EDD ROMAN Admission #: [id number] Family : Order #: [id number] CLICK HERE TO VIEW EXAM ECHOCARDIOGRAM REPORT [...] Area(A4C): 21.60 cm2 Left Atrium Systolic Volume(A2C): 28389 mm3 Left Atrium Systolic Volume(A4C): 76452 mm3 Mitral Valve Right Ventricle Aorta AO Root Diam: 3.10 cm Aortic Valve Tricuspid Valve Pulmonic Valve Right Atrium Dictated by: Alfred Haque M.D. on 02/06/2022 at 15:55 Approved by: Alfred Haque M.D. on 02/06/2022 at 16:11 Normal [facility] CBC AUTO DIFFon 01-23-2022 BASO # 0.0 103/ul Normal 0.0-0.1 [facility] Comment on above: Performed By: #### A 1C #### [facility] [address] [address] [address] Julisa Lowe Basophils/100 WBC (Bld) 0.3 % Normal 0.2-2.0 [facility] Comment on above: Performed By: #### A 1C #### [facility] [address] [address] [address] Julisa Lowe EO # 0.1 103/ul Normal 0.0-0.7 [facility] Comment on above: Performed By: #### A 1C #### [facility] [address] [address] [address] Julisa Lowe Eosinophils/100 WBC (Bld) 1.0 % Normal 0.9-7.0 [facility] Comment on above: Performed By: #### A 1C #### [facility] [address] [place] [address] Dr. Julisa Lowe Erythrocyte distribution width (RBC) [Ratio] 18.6 % Critically high 11.0-15.0 [facility] Comment on above: Performed By: #### A 1C #### [facility] [address] [place] [address] Dr. Julisa Lowe Hematocrit (Bld) [Volume fraction] 29.6 % Critically low 36.0-48.0 [facility] Comment on above: Performed By: #### A 1C #### [facility] [address] [place] [address] Dr. Julisa Lowe Hemoglobin (Bld) [Mass/Vol] 8.5 g/dL Critically low 12.0-16.0 [facility] Comment on above: Performed By: #### A 1C #### [facility] [address] [place] [address] Dr. Julisa Lowe IG # 0.09 10e3/ul Critically high 0.00-0.03 [facility] Comment on above: Performed By: #### A 1C #### [facility] [address] [place] [address] Dr. Julisa Lowe IG % 0.7 % Critically high 0.0-0.5 [facility] Comment on above: Performed By: #### A 1C #### [facility] [address] [place] [address] Dr. Julisa Lowe LYMPH # 3.2 103/ul Normal 1.2-3.8 [facility] Comment on above: Performed By: #### A 1C #### [facility] [address] [place] [address] Dr. Julisa Lowe Lymphocytes/100 WBC (Bld) 25.5 % Normal 20.5-60.0 [facility] Comment on above: Performed By: #### A 1C #### [facility] [address] [place] [address] Dr. Julisa Lowe MANUAL DIFF REQ NO Normal [facility] Comment on above: Performed By: #### A 1C #### [facility] [address] [place] [address] Dr. Julisa Lowe MCH (RBC) [Entitic mass] 20.2 pg Critically low 26.7-34.0 [facility] Comment on above: Performed By: #### A 1C #### [facility] [address] [place] [address] Dr. Julisa Lowe MCHC (RBC) [Mass/Vol] 28.7 g/dL Critically low 29.9-35.2 [facility] Comment on above: Performed By: #### A 1C #### [facility] [address] [place] [address] Dr. Julisa Lowe MCV (RBC) [Entitic vol] 70.5 fL Critically low 81.0-99.0 [facility] Comment on above: Performed By: #### A 1C #### [facility] [address] [place] [address] Dr. Julisa Lowe MONO # 0.6 103/ul Normal 0.3-0.8 [facility] Comment on above: Performed By: #### A 1C #### [facility] [address] [place] [address] Dr. Julisa Lowe Monocytes/100 WBC (Bld) 4.8 % Normal 1.7-12.0 [facility] Comment on above: Performed By: #### A 1C #### [facility] [address] [place] [address] Dr. Julisa Lowe NEUT # 8.4 103/ul Critically high 1.4-6.5 [facility] Comment on above: Performed By: #### A 1C #### [facility] [address] [place] [address] Dr. Julisa Lowe Neutrophils/100 WBC (Bld) 67.7 % Normal 43.0-75.0 [facility] Comment on above: Performed By: #### A 1C #### [facility] [address] [place] [address] Dr. Julisa Lowe Platelet mean volume (Bld) [Entitic vol] 7.9 fL Critically low 9.5-13.5 [facility] Comment on above: Performed By: #### A 1C #### [facility] [address] [address] [address] Julisa Lowe PLT 252 103/ul Normal 150-450 [facility] Comment on above: Performed By: #### A 1C #### [facility] [address] [address] [address] Julisa Lowe RBC 4.20 106/ul Normal 4.20-5.40 [facility] Comment on above: Performed By: #### A 1C #### [facility] [address] [address] [address] Julisa Lowe WBC 12.4 103/ul Critically high 4.0-11.0 [facility] Comment on above: Performed By: #### A 1C #### [facility] [address] [place] [address] Dr. Julisa Lowe FERRITINon 01-23-2022 Ferritin [Mass/Vol] 7.0 ng/mL Critically low 8.0-252.0 [facility] Comment on above: Performed By: #### P OCGLUC #### [facility] [address] [place] [address] Dr. Julisa Lowe GLYCOHEMOGLOBIN A1Con 2021 ADA RECOMMENDATION SEE BELOW Normal [place] Comment on above: Result Comment: ADA RECOMMENDED LIMIT 4.0 - 6.0 ADA THERAPEUTIC TARGET < 7.0 ACTION SUGGESTED > 7.0 Performed By: #### A 1C #### [facility] [address] [place] [address] Dr. Julisa Lowe Glucose [Mass/Vol] 197 mg/dL Normal [facility] Comment on above: Performed By: #### A 1C #### [facility] [address] [place] [address] Dr. Julisa Lowe HbA1c (Bld) [Mass fraction] 8.5 % Critically high 4.5-6.2 [facility] Comment on above: Performed By: #### A 1C #### [facility] [address] [place] [address] Dr. Julisa Lowe TSHon 01-23-2022 TSH 0.501 uIU/mL Normal 0.358-3.740 [facility] Comment on above: Performed By: #### A 1C #### [facility] [address] [place] [address] Dr. Julisa Lowe TSH RANGE SEE BELOW Normal [facility] Comment on above: Result Comment: <0.3 4 UIU/ml HYPERTHYROID 0.34-5.60 UIU/ml EUTHYROID >5.60 UIU/ml HYPOTHYROID Performed By: #### A 1C #### [facility] [address] [place] [address] Dr. Julisa Lowe VIT B12 AND FOLATEon 022 Cobalamin (Vitamin B12) [Mass/Vol] 193.0 pg/mL Normal 193.0-986.0 [facility] Comment on above: Performed By: #### P OCGLUC #### [facility] [address] [place] [address] Dr. Julisa Lowe FOLATE 12.90 ng/mL Normal 8.60-58.90 [facility] Comment on above: Performed By: #### P OCGLUC #### [facility] [address] [place] [address] Dr. Julisa Lowe CULTURE URINEon 12-23-2021 CULTURE [...] Trimethoprim/Sulfamet hoxazole >=320 R F Normal [facility] Comment on above: Performed By: #### H STROPN #### [facility] [address] [place] [address] Dr. Julisa Lowe NM STRESS/REST MULTIon 12-22 NM STRESS/REST MULTI Patient: ROBINA RON. Exam Date: 12/22/2021 : 1950 Gender:F Ordering : EDD ROMAN Admission #: [id number] Family : DR CATHERINE SANCHEZ . Order #: [id number] CLICK HERE TO VIEW EXAM RADIOLOGY REPORT [...] M.D. on 12/22/2021 at 12:45 Normal [facility] CBC AUTO DIFFon 12-21-2021 BASO # 0.0 103/ul Normal 0.0-0.1 [facility] Comment on above: Performed By: #### A 1C #### [facility] [address] [address] [address] Julisa Lowe Basophils/100 WBC (Bld) 0.4 % Normal 0.2-2.0 [facility] Comment on above: Performed By: #### A 1C #### [facility] [address] [address] [address] Julisa Lowe EO # 0.1 103/ul Normal 0.0-0.7 [facility] Comment on above: Performed By: #### A 1C #### [facility] [address] [place] [address] Dr. Julisa Lowe Eosinophils/100 WBC (Bld) 1.3 % Normal 0.9-7.0 [facility] Comment on above: Performed By: #### A 1C #### [facility] [address] [place] [address] Dr. Julisa Lowe Erythrocyte distribution width (RBC) [Ratio] 19.7 % Critically high 11.0-15.0 [facility] Comment on above: Performed By: #### A 1C #### [facility] [address] [place] [address] Dr. Julisa Lowe Hematocrit (Bld) [Volume fraction] 31.6 % Critically low 36.0-48.0 [facility] Comment on above: Performed By: #### A 1C #### [facility] [address] [place] [address] Dr. Julisa Lowe Hemoglobin (Bld) [Mass/Vol] 9.2 g/dL Critically low 12.0-16.0 [facility] Comment on above: Performed By: #### A 1C #### [facility] [address] [place] [address] Dr. Julisa Lowe IG # 0.07 10e3/ul Critically high 0.00-0.03 [facility] Comment on above: Performed By: #### A 1C #### [facility] [address] [place] [address] Dr. Julisa Lowe IG % 0.7 % Critically high 0.0-0.5 [facility] Comment on above: Performed By: #### A 1C #### [facility] [address] [place] [address] Dr. Julisa Lowe LYMPH # 3.2 103/ul Normal 1.2-3.8 [facility] Comment on above: Performed By: #### A 1C #### [facility] [address] [place] [address] Dr. Julisa Lowe Lymphocytes/100 WBC (Bld) 30.8 % Normal 20.5-60.0 [facility] Comment on above: Performed By: #### A 1C #### [facility] [address] [place] [address] Dr. Julisa Lowe MANUAL DIFF REQ NO Normal [facility] Comment on above: Performed By: #### A 1C #### [facility] [address] [place] [address] Dr. Julisa Lowe MCH (RBC) [Entitic mass] 20.4 pg Critically low 26.7-34.0 [facility] Comment on above: Performed By: #### A 1C #### [facility] [address] [place] [address] Dr. Julisa Lowe MCHC (RBC) [Mass/Vol] 29.1 g/dL Critically low 29.9-35.2 [facility] Comment on above: Performed By: #### A 1C #### [facility] [address] [place] [address] Dr. Julisa Lowe MCV (RBC) [Entitic vol] 69.9 fL Critically low 81.0-99.0 [facility] Comment on above: Performed By: #### A 1C #### [facility] [address] [place] [address] Dr. Julisa Lowe MONO # 0.8 103/ul Normal 0.3-0.8 [facility] Comment on above: Performed By: #### A 1C #### [facility] [address] [place] [address] Dr. Julisa Lowe Monocytes/100 WBC (Bld) 7.3 % Normal 1.7-12.0 [facility] Comment on above: Performed By: #### A 1C #### [facility] [address] [place] [address] Dr. Julisa Lowe NEUT # 6.2 103/ul Normal 1.4-6.5 [facility] Comment on above: Performed By: #### A 1C #### [facility] [address] [place] [address] Dr. Julisa Lowe Neutrophils/100 WBC (Bld) 59.5 % Normal 43.0-75.0 [facility] Comment on above: Performed By: #### A 1C #### [facility] [address] [address] [address] Julisa Lowe Platelet mean volume (Bld) [Entitic vol] 8.4 fL Critically low 9.5-13.5 [facility] Comment on above: Performed By: #### A 1C #### [facility] [address] [address] [address] Julisa Lowe PLT 301 103/ul Normal 150-450 [facility] Comment on above: Performed By: #### A 1C #### [facility] [address] [place] [address] Dr. Julisa Lowe RBC 4.52 106/ul Normal 4.20-5.40 [facility] Comment on above: Performed By: #### A 1C #### [facility] [address] [place] [address] Dr. Julisa Lowe WBC 10.4 103/ul Normal 4.0-11.0 [facility] Comment on above: Performed By: #### A 1C #### [facility] [address] [place] [address] Dr. Julisa Lowe POINT OF CARE GLUCOSEon 12-12 Glucose [Mass/Vol] 183 mg/dL Critically high 74-106 [facility] Comment on above: Performed By: #### P OCGLUC #### [facility] [address] [place] [address] Dr. Julisa Lowe Glucose [Mass/Vol] 351 mg/dL Critically high -106 [facility] Comment on above: Performed By: #### H STROPN #### [facility] [address] [place] [address] Dr. Julisa Lowe PROF CHEM 8 (BAS METB)on Anion gap [Moles/Vol] 14.6 mmol/L Normal [facility] Comment on above: Performed By: #### S EDR #### [facility] [address] [place] [address] Dr. Julisa Lowe Calcium [Mass/Vol] 8.6 mg/dL Normal 8.5-10.1 [place] Comment on above: Performed By: #### S EDR #### [facility] [address] [place] [address] Dr. Julisa Lowe Chloride [Moles/Vol] 107 mmol/L Normal 98-107 [facility] Comment on above: Performed By: #### S EDR #### [facility] [address] [address] [address] Julisa Lowe CO2 [Moles/Vol] 24.6 mmol/L Normal 22.0-30.0 [facility] Comment on above: Performed By: #### S EDR #### [facility] [address] [place] [address] Dr. Julisa Lowe Creatinine [Mass/Vol] 0.57 mg/dL Normal 0.52-1.04 [facility] Comment on above: Performed By: #### S EDR #### [facility] [address] [place] [address] Dr. Julisa Lowe EGFR-AF MEXICAN >60 Normal >=60 [facility] Comment on above: Performed By: #### S EDR #### [facility] [address] [place] [address] Dr. Julisa Lowe EGFR-NON AF MEXICAN >60 Normal >=60 [facility] Comment on above: Performed By: #### S EDR #### [facility] [address] [place] [address] Dr. Julisa Lowe Glucose [Mass/Vol] 189 mg/dL Critically high 74-106 [facility] Comment on above: Performed By: #### S EDR #### [facility] [address] [place] [address] Dr. Julisa Lowe Potassium [Moles/Vol] 4.2 mmol/L Normal 3.4-5.0 [facility] Comment on above: Performed By: #### S EDR #### [facility] [address] [place] [address] Dr. Julisa Lowe Sodium [Moles/Vol] 142 mmol/L Normal 137-145 [facility] Comment on above: Performed By: #### S EDR #### [facility] [address] [address] [address] Julisa Lowe Urea nitrogen [Mass/Vol] 16.0 mg/dL Normal 7.0-18.0 [facility] Comment on above: Performed By: #### S EDR #### [facility] [address] [place] [address] Dr. Julisa Lowe Urea nitrogen/Creatinine [Mass ratio] 28.1 mg/mg Normal [facility] Comment on above: Performed By: #### S EDR #### [facility] [address] [address] [address] Julisa Lowe BNPon 12-20-2021 Natriuretic peptide B (Bld) [Mass/Vol] 880.0 pg/mL Normal <=900.0 [facility] Comment on above: Performed By: #### H STROPN #### [facility] [address] [place] [address] Dr. Julisa Lowe CARDIAC TRUONG ADMITon 022 CK <20 Critically low 30-135 [facility] Comment on above: Performed By: #### H STROPN #### [facility] [address] [place] [address] Dr. Julisa Lowe CK.MB [Mass/Vol] ng/mL Normal <=2.37 [facility] Comment on above: Performed By: #### H STROPN #### [facility] [address] [place] [address] Dr. Julisa Lowe HSTROP 15.1 pg/mL Normal 4.0-35.5 [facility] Comment on above: Result Comment: CUT- OFF POINTS HAVE BEEN ESTABLISHED BASED ON THE FOURTH UNIVERSAL DEFINITIONS OF MYOCARDIAL INFARCTION. THE UPPER REFERENCE LIMIT (URL) OF TROPONIN, DEFINED THE 99TH PERCENTILE OF cTnI DISTRIBUTION IN A REFERENCE POPULATION, HAS BEEN CONFIRMED THE DECISION THRESHOLD FOR [place] DIAGNOSIS. Performed By: #### H STROPN #### [facility] [address] [place] [address] Dr. Julisa Lowe RAJ 24.0 ng/mL Normal <=61.5 [facility] Comment on above: Performed By: #### H STROPN #### [facility] [address] [address] [address] Julisa Lowe CBC AUTO DIFFon 12-20-2021 BASO # 0.1 103/ul Normal 0.0-0.1 [facility] Comment on above: Performed By: #### S EDR #### [facility] [address] [place] [address] Dr. Julisa Lowe Basophils/100 WBC (Bld) 0.5 % Normal 0.2-2.0 [facility] Comment on above: Performed By: #### S EDR #### [facility] [address] [place] [address] Dr. Julisa Lowe EO # 0.1 103/ul Normal 0.0-0.7 [facility] Comment on above: Performed By: #### S EDR #### [facility] [address] [place] [address] Dr. Julisa Lowe Eosinophils/100 WBC (Bld) 1.0 % Normal 0.9-7.0 [facility] Comment on above: Performed By: #### S EDR #### [facility] [address] [place] [address] Dr. Julisa Lowe Erythrocyte distribution width (RBC) [Ratio] 19.8 % Critically high 11.0-15.0 [facility] Comment on above: Result Comment: slig ht poikilocytosis, moderate anisocytosis, Performed By: #### S EDR #### [facility] [address] [place] [address] Dr. Julisa Lowe Hematocrit (Bld) [Volume fraction] 32.7 % Critically low 36.0-48.0 [facility] Comment on above: Performed By: #### S EDR #### [facility] [address] [place] [address] Dr. Julisa Lowe Hemoglobin (Bld) [Mass/Vol] 9.6 g/dL Critically low 12.0-16.0 [facility] Comment on above: Performed By: #### S EDR #### [facility] [address] [place], [place] [id number] Dr. Julisa Lowe IG # 0.07 10e3/ul Critically high 0.00-0.03 [facility] Comment on above: Performed By: #### S EDR #### [facility] [address] [place] [address] Dr. Julisa Lowe IG % 0.7 % Critically high 0.0-0.5 [facility] Comment on above: Performed By: #### S EDR #### [facility] [address] [place] [address] Dr. Julisa Lowe LYMPH # 3.1 103/ul Normal 1.2-3.8 [facility] Comment on above: Performed By: #### S EDR #### [facility] [address] [place] [address] Dr. Julisa Lowe Lymphocytes/100 WBC (Bld) 29.7 % Normal 20.5-60.0 [facility] Comment on above: Performed By: #### S EDR #### [facility] [address] [place] [address] Dr. Julisa Lowe MANUAL DIFF REQ NO Normal [facility] Comment on above: Performed By: #### S EDR #### [facility] [address] [place] [address] Dr. Julisa Lowe MCH (RBC) [Entitic mass] 20.5 pg Critically low 26.7-34.0 [facility] Comment on above: Performed By: #### S EDR #### [facility] [address] [place] [address] Dr. Julisa Lowe MCHC (RBC) [Mass/Vol] 29.4 g/dL Critically low 29.9-35.2 [facility] Comment on above: Performed By: #### S EDR #### [facility] [address] [place] [address] Dr. Julisa Lowe MCV (RBC) [Entitic vol] 69.9 fL Critically low 81.0-99.0 [facility] Comment on above: Result Comment: few ovalocytes, moderate hypochromasia Performed By: #### S EDR #### [facility] [address] [address] [address] Julisa Lowe MONO # 0.6 103/ul Normal 0.3-0.8 [facility] Comment on above: Performed By: #### S EDR #### [facility] [address] [address] [address] Julisa Lowe Monocytes/100 WBC (Bld) 5.6 % Normal 1.7-12.0 [facility] Comment on above: Performed By: #### S EDR #### [facility] [address] [place] [address] Dr. Julisa Lowe NEUT # 6.5 103/ul Normal 1.4-6.5 [facility] Comment on above: Performed By: #### S EDR #### [facility] [address] [place] [address] Dr. Julisa Lowe Neutrophils/100 WBC (Bld) 62.5 % Normal 43.0-75.0 [facility] Comment on above: Performed By: #### S EDR #### [facility] [address] [place] [address] Dr. Julisa Lowe Platelet mean volume (Bld) [Entitic vol] 8.8 fL Critically low 9.5-13.5 [facility] Comment on above: Performed By: #### S EDR #### [facility] [address] [place] [address] Dr. Julisa Lowe PLT 280 103/ul Normal 150-450 [facility] Comment on above: Performed By: #### S EDR #### [facility] [address] [place] [address] Dr. Julisa Lowe RBC 4.68 106/ul Normal 4.20-5.40 [facility] Comment on above: Performed By: #### S EDR #### [facility] [address] [place] [address] Dr. Julisa Lowe WBC 10.5 103/ul Normal 4.0-11.0 [facility] Comment on above: Performed By: #### S EDR #### [facility] [address] [place] [address] Dr. Julisa Lowe Covid-19 PCR (CVDTB)on SARS-CoV-2 (COVID-19) RNA CHALINO+probe Ql (Unsp spec) Not detected Normal NOT DETECTED [facility] Comment on above: Result Comment: When diagnostic [...] for this test is supported by the Neuroradiologist of Health and Human Service's declaration that [...] used). Performed By: #### P OCGLUC #### [facility] [address] [place] [address] Dr. Julisa Lowe ER URINE PROFILEon 2 Bilirubin Ql (U) Negative Normal NEGATIVE [facility] Comment on above: Performed By: #### S EDR #### [facility] [address] [place] [address] Dr. Julisa Lowe Clarity (U) SL CLOUDY Abnormal CLEAR [facility] Comment on above: Performed By: #### S EDR #### [facility] [address] [place] [address] Dr. Julisa Lowe Color (U) LT. YELLOW Normal YELLOW [facility] Comment on above: Performed By: #### S EDR #### [facility] [address] [place] [address] Dr. Julisa Lowe ERUAHD A micrscopic examination will be performed if indicated. Normal [facility] Comment on above: Performed By: #### S EDR #### [facility] [address] [address] [address] Julisa Lowe Glucose Ql (U) Negative Normal NEGATIVE [facility] Comment on above: Performed By: #### S EDR #### [facility] [address] [address] [address] Julisa Lowe Hemoglobin Ql (U) Negative Normal NEGATIVE [facility] Comment on above: Performed By: #### S EDR #### [facility] [address] [address] [address] Julisa Lowe Ketones Ql (U) Negative Normal NEGATIVE [facility] Comment on above: Performed By: #### S EDR #### [facility] [address] [place] [address] Dr. Julisa Lowe LEUKOCYTES TRACE Abnormal NEGATIVE [facility] Comment on above: Performed By: #### S EDR #### [facility] [address] [place] [address] Dr. Julisa Lowe Nitrite Ql (U) Negative Normal NEGATIVE [facility] Comment on above: Performed By: #### S EDR #### [facility] [address] [place] [address] Dr. Julisa Lowe pH (U) 7.5 [pH] Normal 5-9 [facility] Comment on above: Performed By: #### S EDR #### [facility] [address] [place] [address] Dr. Julisa Lowe Protein (U) [Mass/Vol] 100 mg/dL Abnormal NEGAT CRISTOPHER/ TRACE [facility] Comment on above: Performed By: #### S EDR #### [facility] [address] [place] [address] Dr. Julisa Lowe SPEC GRAVITY 1.020 Normal 1.005-<=1.025 [facility] Comment on above: Performed By: #### S EDR #### [facility] [address] [place] [address] Dr. Julisa Lowe UR MICRO IND INDICATED Normal [facility] Comment on above: Performed By: #### S EDR #### [facility] [address] [place] [address] Dr. Julisa Lowe Urobilinogen Qn (U) 0.2 {Shirley'U}/dL Normal 0.2 - 1. 0 [facility] Comment on above: Performed By: #### S EDR #### [facility] [address] [place] [address] Dr. Julisa Lowe POINT OF CARE GLUCOSEon Glucose [Mass/Vol] 145 mg/dL Critically high 74-106 [facility] Comment on above: Performed By: #### S EDR #### [facility] [address] [place] [address] Dr. Julisa Lowe PROF 14(COMP METB)on 022 Albumin [Mass/Vol] 3.0 g/dL Critically low 3.4-5.0 [facility] Comment on above: Performed By: #### H STROPN #### [facility] [address] [place] [address] Dr. Julisa Lowe Albumin/Globulin [Mass ratio] 1.0 {ratio} Normal [facility] Comment on above: Performed By: #### H STROPN #### [facility] [address] [place] [address] Dr. Julisa Lowe ALP [Catalytic activity/Vol] 110 U/L Normal 46-116 [facility] Comment on above: Performed By: #### H STROPN #### [facility] [address] [place] [address] Dr. Julisa Lowe ALT [Catalytic activity/Vol] 18 U/L Normal 14-59 [facility] Comment on above: Performed By: #### H STROPN #### [facility] [address] [place] [address] Dr. Julisa Lowe Anion gap [Moles/Vol] 13.4 mmol/L Normal [facility] Comment on above: Performed By: #### H STROPN #### [facility] [address] [place] [address] Dr. Julisa Lowe AST [Catalytic activity/Vol] 8 U/L Critically low 15-37 [facility] Comment on above: Performed By: #### H STROPN #### [facility] [address] [address] [address] Julisa Lowe Bilirubin [Mass/Vol] 0.3 mg/dL Normal 0.2-1.3 [facility] Comment on above: Performed By: #### H STROPN #### [facility] [address] [address] [address] Julisa Lowe Calcium [Mass/Vol] 8.5 mg/dL Normal 8.5-10.1 [place] Comment on above: Performed By: #### H STROPN #### [facility] [address] [address] [address] Julisa Lowe Chloride [Moles/Vol] 106 mmol/L Normal 98-107 [facility] Comment on above: Performed By: #### H STROPN #### [facility] [address] [place] [address] Dr. Julisa Lowe CO2 [Moles/Vol] 26.3 mmol/L Normal 22.0-30.0 [facility] Comment on above: Performed By: #### H STROPN #### [facility] [address] [place] [address] Dr. Julisa Lowe Creatinine [Mass/Vol] 0.52 mg/dL Normal 0.52-1.04 [facility] Comment on above: Performed By: #### H STROPN #### [facility] [address] [place] [address] Dr. Julisa Lowe EGFR-AF MEXICAN >60 Normal >=60 [facility] Comment on above: Performed By: #### H STROPN #### [facility] [address] [address] [address] Julisa Lowe EGFR-NON AF MEXICAN >60 Normal >=60 [facility] Comment on above: Performed By: #### H STROPN #### [facility] [address] [place] [address] Dr. Julisa Lowe Globulin (S) [Mass/Vol] 3.0 g/dL Normal [facility] Comment on above: Performed By: #### H STROPN #### [facility] [address] [address] [address] Julisa Lowe Glucose [Mass/Vol] 147 mg/dL Critically high 74-106 [facility] Comment on above: Performed By: #### H STROPN #### [facility] [address] [address] [address] Julisa Lowe Potassium [Moles/Vol] 3.7 mmol/L Normal 3.4-5.0 [facility] Comment on above: Performed By: #### H STROPN #### [facility] [address] [address] [address] Julisa Lowe Protein [Mass/Vol] 6.0 g/dL Critically low 6.1-8.2 [facility] Comment on above: Performed By: #### H STROPN #### [facility] [address] [address] [address] Julisa Lowe Sodium [Moles/Vol] 142 mmol/L Normal 137-145 [place] Comment on above: Performed By: #### H STROPN #### [facility] [address] [address] [address] Julisa Lowe Urea nitrogen [Mass/Vol] 13.0 mg/dL Normal 7.0-18.0 [facility] Comment on above: Performed By: #### H STROPN #### [facility] [address] [address] [address] Julisa Lowe Urea nitrogen/Creatinine [Mass ratio] 25.0 mg/mg Normal [facility] Comment on above: Performed By: #### H STROPN #### [facility] [address] [address] [address] Julisa Lowe PROTIMEon 12-20-2021 INR Coag (PPP) [Relative time] 0.94 {INR} Normal [facility] Comment on above: Performed By: #### S EDR #### [facility] [address] [address] [address] Julisa Lowe INR GUIDELINES SEE BELOW Normal [facility] Comment on above: Result Comment: NHI RED INR: 2.0 - 3.0 CONDITIONS NOT LISTED BELOW 2.5 - 3.5 FOR PROSTHETIC HEART VALVE REPLACEMENT 2.5 - 3.5 RECURRENT THROMBOSIS Performed By: #### S EDR #### [facility] [address] [place] [address] Dr. Julisa Lowe PT Coag (PPP) [Time] 10.2 s Normal 9.0-11.6 [facility] Comment on above: Performed By: #### S EDR #### [facility] [address] [place] [address] Dr. Julisa Lowe PTTon 12-20-2021 aPTT Coag (Bld) [Time] 21.7 s Critically low 22.3-36.2 [facility] Comment on above: Performed By: #### S EDR #### [facility] [address] [place] [address] Dr. Julisa Lowe TROPONIN, HIGH SENSITIVITYon 12-20-2021 HSTROP 16.3 pg/mL Normal 4.0-35.5 [facility] Comment on above: Result Comment: CUT- OFF POINTS HAVE BEEN ESTABLISHED BASED ON THE FOURTH UNIVERSAL DEFINITIONS OF MYOCARDIAL INFARCTION. THE UPPER REFERENCE LIMIT (URL) OF TROPONIN, DEFINED THE 99TH PERCENTILE OF cTnI DISTRIBUTION IN A REFERENCE POPULATION, HAS BEEN CONFIRMED THE DECISION THRESHOLD FOR [place] DIAGNOSIS. Performed By: #### P OCGLUC #### [facility] [address] [place] [address] Dr. Julisa Lowe HSTROP 16.8 pg/mL Normal 4.0-35.5 [facility] Comment on above: Result Comment: CUT- OFF POINTS HAVE BEEN ESTABLISHED BASED ON THE FOURTH UNIVERSAL DEFINITIONS OF MYOCARDIAL INFARCTION. THE UPPER REFERENCE LIMIT (URL) OF TROPONIN, DEFINED THE 99TH PERCENTILE OF cTnI DISTRIBUTION IN A REFERENCE POPULATION, HAS BEEN CONFIRMED THE DECISION THRESHOLD FOR [place] DIAGNOSIS. Performed By: #### H STROPN #### [facility] [address] [place] [address] Dr. Julisa Lowe URINE MICROSCOPIC ONLYon BACTERIA LARGE Abnormal NONE SEEN [facility] Comment on above: Performed By: #### S EDR #### [facility] [address] [place] [address] Dr. Julisa Lowe Bacteria identified Cx Nom (U) INDICATED Normal [facility] Comment on above: Performed By: #### S EDR #### [facility] [address] [place] [address] Dr. Julisa Lowe CAST NONE SEEN Normal NONE SEEN [facility] Comment on above: Performed By: #### S EDR #### [facility] [address] [place] [address] Dr. Julisa Lowe Crystals LM Nom (Urine sed) NONE SEEN Normal NONE SEEN [facility] Comment on above: Performed By: #### S EDR #### [facility] [address] [place] [address] Dr. Julisa Lowe Epithelial cells LM Ql (Urine sed) FEW Abnormal NONE SEEN /RARE [facility] Comment on above: Performed By: #### S EDR #### [facility] [address] [place] [address] Dr. Julisa Lowe MUCOUS NONE SEEN Normal NONE SEEN [facility] Comment on above: Performed By: #### S EDR #### [facility] [address] [place] [address] Dr. Julisa Lowe RBC 0-2 Normal 0-2 [facility] Comment on above: Performed By: #### S EDR #### [facility] [address] [place] [address] Dr. Julisa Lowe WBC 10-20 Abnormal NONE SEEN [facility] Comment on above: Performed By: #### S EDR #### [facility] [address] [place] [address] Dr. Julisa Lowe XR CHEST 1 Von [...] NGOZI NELSON Date: 2021-12-20 15:58 Normal [facility] JOSEE by IFAon 12-18-2021 Antinuclear Antibodies, IFA Negative Normal [facility] Comment on above: Result Comment: Nega tive <1:80 Borderline 1:80 Positive >1:80 ICAP nomenclature: AC-0 For more information about Hep-2 cell patterns use ANApatterns.org, the official website for the International Consensus on Antinuclear Antibody (JOSEE) Patterns (ICAP). Performed By: #### H STROPN #### [facility] [address] [place] [address] Dr. Julisa Lowe CBC AUTO DIFFon 12-15-2021 BASO # 0.0 103/ul Normal 0.0-0.1 [facility] Comment on above: Performed By: #### A 1C #### [facility] [address] [place] [address] Dr. Julisa Lowe Basophils/100 WBC (Bld) 0.3 % Normal 0.2-2.0 [facility] Comment on above: Performed By: #### A 1C #### [facility] [address] [place] [address] Dr. Julisa Lowe EO # 0.1 103/ul Normal 0.0-0.7 [facility] Comment on above: Performed By: #### A 1C #### [facility] [address] [place] [address] Dr. Julisa Lowe Eosinophils/100 WBC (Bld) 0.9 % Normal 0.9-7.0 [facility] Comment on above: Performed By: #### A 1C #### [facility] [address] [place] [address] Dr. Julisa Lowe Erythrocyte distribution width (RBC) [Ratio] 19.6 % Critically high 11.0-15.0 [facility] Comment on above: Performed By: #### A 1C #### [facility] [address] [place] [address] Dr. Julisa Lowe Hematocrit (Bld) [Volume fraction] 33.8 % Critically low 36.0-48.0 [facility] Comment on above: Performed By: #### A 1C #### [facility] [address] [place] [address] Dr. Julisa Lowe Hemoglobin (Bld) [Mass/Vol] 9.7 g/dL Critically low 12.0-16.0 [facility] Comment on above: Performed By: #### A 1C #### [facility] [address] [place] [address] Dr. Julisa Lowe IG # 0.13 10e3/ul Critically high 0.00-0.03 [facility] Comment on above: Performed By: #### A 1C #### [facility] [address] [address] [address] Julisa Lowe IG % 0.9 % Critically high 0.0-0.5 [facility] Comment on above: Performed By: #### A 1C #### [facility] [address] [place] [address] Dr. Julisa Lowe LYMPH # 3.5 103/ul Normal 1.2-3.8 [facility] Comment on above: Performed By: #### A 1C #### [facility] [address] [place] [address] Dr. Julisa Lowe Lymphocytes/100 WBC (Bld) 25.4 % Normal 20.5-60.0 [facility] Comment on above: Performed By: #### A 1C #### [facility] [address] [place] [address] Dr. Julisa Lowe MANUAL DIFF REQ NO Normal [facility] Comment on above: Performed By: #### A 1C #### [facility] [address] [place] [address] Dr. Julisa Lowe MCH (RBC) [Entitic mass] 20.4 pg Critically low 26.7-34.0 [facility] Comment on above: Performed By: #### A 1C #### [facility] [address] [place] [address] Dr. Julisa Lowe MCHC (RBC) [Mass/Vol] 28.7 g/dL Critically low 29.9-35.2 [facility] Comment on above: Performed By: #### A 1C #### [facility] [address] [place] [address] Dr. Julisa Lowe MCV (RBC) [Entitic vol] 71.2 fL Critically low 81.0-99.0 [facility] Comment on above: Performed By: #### A 1C #### [facility] [address] [place] [address] Dr. Julisa Lowe MONO # 0.7 103/ul Normal 0.3-0.8 [facility] Comment on above: Performed By: #### A 1C #### [facility] [address] [address] [address] Julisa Lowe Monocytes/100 WBC (Bld) 5.0 % Normal 1.7-12.0 [facility] Comment on above: Performed By: #### A 1C #### [facility] [address] [place] [address] Dr. Julisa Lowe NEUT # 9.3 103/ul Critically high 1.4-6.5 [facility] Comment on above: Performed By: #### A 1C #### [facility] [address] [place] [address] Dr. Julisa Lowe Neutrophils/100 WBC (Bld) 67.5 % Normal 43.0-75.0 [facility] Comment on above: Performed By: #### A 1C #### [facility] [address] [place] [address] Dr. Julisa Lowe Platelet mean volume (Bld) [Entitic vol] 8.2 fL Critically low 9.5-13.5 [facility] Comment on above: Performed By: #### A 1C #### [facility] [address] [place] [address] Dr. Julisa Lowe PLT 301 103/ul Normal 150-450 [facility] Comment on above: Performed By: #### A 1C #### [facility] [address] [place] [address] Dr. Julisa Lowe RBC 4.75 106/ul Normal 4.20-5.40 [facility] Comment on above: Result Comment: HYPO CHROMIA 3+ Performed By: #### A 1C #### [facility] [address] [place] [address] Dr. Julisa Lowe WBC 13.8 103/ul Critically high 4.0-11.0 [facility] Comment on above: Performed By: #### A 1C #### [facility] [address] [address] [address] Julisa Lowe CRPon 12-15-2021 CRP [Mass/Vol] mg/L Normal <=1.0 [facility] Comment on above: Performed By: #### C MP, CRP, TSH #### [facility] [address] [place] [address] Dr. Julisa Lowe FREE T4on 12-15-2021 Free T4 [Mass/Vol] 1.04 ng/dL Normal 0.78-2.19 [facility] Comment on above: Performed By: #### S EDR #### [facility] [address] [place] [address] Dr. Julisa Lowe PROF 14(COMP METB)on 022 Albumin [Mass/Vol] 3.4 g/dL Normal 3.4-5.0 [place] Comment on above: Performed By: #### C MP, CRP, TSH #### [facility] [address] [place] [address] Dr. Julisa Lowe Albumin/Globulin [Mass ratio] 1.1 {ratio} Normal [facility] Comment on above: Performed By: #### C MP, CRP, TSH #### [facility] [address] [place] [address] Dr. Julisa Lowe ALP [Catalytic activity/Vol] 120 U/L Critically high 46-116 [facility] Comment on above: Performed By: #### C MP, CRP, TSH #### [facility] [address] [place] [address] Dr. Julisa Lowe ALT [Catalytic activity/Vol] 28 U/L Normal 14-59 [facility] Comment on above: Performed By: #### C MP, CRP, TSH #### [facility] [address] [place] [address] Dr. Julisa Lowe Anion gap [Moles/Vol] 12.7 mmol/L Normal [facility] Comment on above: Performed By: #### C MP, CRP, TSH #### [facility] [address] [address] [address] Julisa Lowe AST [Catalytic activity/Vol] 13 U/L Critically low 15-37 [facility] Comment on above: Performed By: #### C MP, CRP, TSH #### [facility] [address] [address] [address] Julisa Lowe Bilirubin [Mass/Vol] 0.3 mg/dL Normal 0.2-1.3 [facility] Comment on above: Performed By: #### C MP, CRP, TSH #### [facility] [address] [address] [address] Julisa Lowe Calcium [Mass/Vol] 8.4 mg/dL Critically low 8.5-10.1 Th e [facility] Comment on above: Performed By: #### C MP, CRP, TSH #### [facility] [address] [place] [address] Dr. Julisa Lowe Chloride [Moles/Vol] 106 mmol/L Normal 98-107 [facility] Comment on above: Performed By: #### C MP, CRP, TSH #### [facility] [address] [address] [address] Julisa Lowe CO2 [Moles/Vol] 25.8 mmol/L Normal 22.0-30.0 [facility] Comment on above: Performed By: #### C MP, CRP, TSH #### [facility] [address] [place] [address] Dr. Julisa Lowe Creatinine [Mass/Vol] 0.68 mg/dL Normal 0.52-1.04 [facility] Comment on above: Performed By: #### C MP, CRP, TSH #### [facility] [address] [address] [address] Julisa Lowe EGFR-AF MEXICAN >60 Normal >=60 [facility] Comment on above: Performed By: #### C MP, CRP, TSH #### [facility] [address] [place] [address] Dr. Julisa Lowe EGFR-NON AF MEXICAN >60 Normal >=60 [facility] Comment on above: Performed By: #### C MP, CRP, TSH #### [facility] [address] [address] [address] Julisa Lowe Globulin (S) [Mass/Vol] 3.2 g/dL Normal [facility] Comment on above: Performed By: #### C MP, CRP, TSH #### [facility] [address] [address] [address] Julisa Lowe Glucose [Mass/Vol] 222 mg/dL Critically high 74-106 [facility] Comment on above: Performed By: #### C MP, CRP, TSH #### [facility] [address] [address] [address] Julisa Lowe Potassium [Moles/Vol] 3.5 mmol/L Normal 3.4-5.0 [facility] Comment on above: Performed By: #### C MP, CRP, TSH #### [facility] [address] [place] [address] Dr. Julisa Lowe Protein [Mass/Vol] 6.6 g/dL Normal 6.1-8.2 [place] Comment on above: Performed By: #### C MP, CRP, TSH #### [facility] [address] [address] [address] Julisa Lowe Sodium [Moles/Vol] 141 mmol/L Normal 137-145 [place] Comment on above: Performed By: #### C MP, CRP, TSH #### [facility] [address] [address] [address] Julisa Lowe Urea nitrogen [Mass/Vol] 14.0 mg/dL Normal 7.0-18.0 [facility] Comment on above: Performed By: #### C MP, CRP, TSH #### [facility] [address] [address] [address] Julisa Lowe Urea nitrogen/Creatinine [Mass ratio] 20.6 mg/mg Normal [facility] Comment on above: Performed By: #### C MP, CRP, TSH #### [facility] [address] [address] [address] Julisa Lowe SED RATE [facility] 2021 SED RATE 10 mm/hr Normal <=30 [facility] Comment on above: Performed By: #### S EDR #### [facility] [address] [address] [address] Julisa Lowe TSHon 12-15-2021 TSH 0.747 uIU/mL Normal 0.470-4.680 [facility] Comment on above: Performed By: #### C MP, CRP, TSH #### [facility] [address] [address] [address] Julisa Lowe TSH RANGE SEE BELOW Normal [facility] Comment on above: Result Comment: <0.3 4 UIU/ml HYPERTHYROID 0.34-5.60 UIU/ml EUTHYROID >5.60 UIU/ml HYPOTHYROID Performed By: #### C MP, CRP, TSH #### [facility] [address] [address] [address] Julisa Lowe ECHOCARDIO M/2D COMPLETEon 0 12-04-2021 ECHOCARDIO M/2D COMPLETE Patient: ROBINA RON Exam Date: 12/04/2021 : 1950 Gender:F Ordering : SHAIKH Chaparrita SPARKS . Admission #: [id number] Family : Order #: [id number] CLICK HERE TO VIEW EXAM ECHOCARDIOGRAM REPORT [...] Area(A4C): 21.50 cm2 Left Atrium Systolic Volume(A2C): 47272 mm3 Left Atrium Systolic Volume(A4C): 57119 mm3 Mitral Valve MV E to A [...] M.D. on 12/04/2021 at 18:31 Normal [facility] CBC AUTO DIFFon 09-10-2021 BASO # 0.1 103/ul Normal 0.0-0.1 [facility] Comment on above: Performed By: #### S EDR #### [facility] [address] [place] [address] Dr. Julisa Lowe Basophils/100 WBC (Bld) 0.4 % Normal 0.2-2.0 [facility] Comment on above: Performed By: #### S EDR #### [facility] [address] [place] [address] Dr. Julisa Lowe EO # 0.2 103/ul Normal 0.0-0.7 [facility] Comment on above: Performed By: #### S EDR #### [facility] [address] [place] [address] Dr. Julisa Lowe Eosinophils/100 WBC (Bld) 1.2 % Normal 0.9-7.0 [facility] Comment on above: Performed By: #### S EDR #### [facility] [address] [place] [address] Dr. Julisa Lowe Erythrocyte distribution width (RBC) [Ratio] 17.8 % Critically high 11.0-15.0 [facility] Comment on above: Performed By: #### S EDR #### [facility] [address] [place] [address] Dr. Julisa Lowe Hematocrit (Bld) [Volume fraction] 36.6 % Normal 36.0-48.0 [facility] Comment on above: Performed By: #### S EDR #### [facility] [address] [place] [address] Dr. Julisa Lowe Hemoglobin (Bld) [Mass/Vol] 10.1 g/dL Critically low 12.0-16.0 [facility] Comment on above: Performed By: #### S EDR #### [facility] [address] [place] [address] Dr. Julisa Lowe IG # 0.08 10e3/ul Critically high 0.00-0.03 [facility] Comment on above: Performed By: #### S EDR #### [facility] [address] [place] [address] Dr. Julisa Lowe IG % 0.6 % Critically high 0.0-0.5 [facility] Comment on above: Performed By: #### S EDR #### [facility] [address] [address] [address] Julisa Lowe LYMPH # 3.1 103/ul Normal 1.2-3.8 [facility] Comment on above: Performed By: #### S EDR #### [facility] [address] [place] [address] Dr. Julisa Lowe Lymphocytes/100 WBC (Bld) 23.2 % Normal 20.5-60.0 [facility] Comment on above: Performed By: #### S EDR #### [facility] [address] [place] [address] Dr. Julisa Lowe MANUAL DIFF REQ NO Normal [facility] Comment on above: Performed By: #### S EDR #### [facility] [address] [place] [address] Dr. Julisa Lowe MCH (RBC) [Entitic mass] 20.9 pg Critically low 26.7-34.0 [facility] Comment on above: Performed By: #### S EDR #### [facility] [address] [place] [address] Dr. Julisa Lowe MCHC (RBC) [Mass/Vol] 27.6 g/dL Critically low 29.9-35.2 [facility] Comment on above: Performed By: #### S EDR #### [facility] [address] [place] [address] Dr. Julisa Lowe MCV (RBC) [Entitic vol] 75.8 fL Critically low 81.0-99.0 [facility] Comment on above: Performed By: #### S EDR #### [facility] [address] [place] [address] Dr. Julisa Lowe MONO # 0.7 103/ul Normal 0.3-0.8 [facility] Comment on above: Performed By: #### S EDR #### [facility] [address] [place] [address] Dr. Julisa Lowe Monocytes/100 WBC (Bld) 5.1 % Normal 1.7-12.0 [facility] Comment on above: Performed By: #### S EDR #### [facility] [address] [place] [address] Dr. Julisa Lowe NEUT # 9.3 103/ul Critically high 1.4-6.5 [facility] Comment on above: Performed By: #### S EDR #### [facility] [address] [place] [address] Dr. Julisa Lowe Neutrophils/100 WBC (Bld) 69.5 % Normal 43.0-75.0 [facility] Comment on above: Performed By: #### S EDR #### [facility] [address] [place] [address] Dr. Julisa Lowe Platelet mean volume (Bld) [Entitic vol] 8.2 fL Critically low 9.5-13.5 [facility] Comment on above: Performed By: #### S EDR #### [facility] [address] [place] [address] Dr. Julisa Lowe PLT 303 103/ul Normal 150-450 [facility] Comment on above: Performed By: #### S EDR #### [facility] [address] [place] [address] Dr. Julisa Lowe RBC 4.83 106/ul Normal 4.20-5.40 [facility] Comment on above: Performed By: #### S EDR #### [facility] [address] [place] [address] Dr. Julisa Lowe WBC 13.4 103/ul Critically high 4.0-11.0 [facility] Comment on above: Performed By: #### S EDR #### [facility] [address] [place] [address] Dr. Julisa Lowe GLYCOHEMOGLOBIN A1Con 2020 ADA RECOMMENDATION ADA THERAPEUTIC TARGET 6.0 - 7.0 ACTION SUGGESTED > 7.0 Normal [facility] Comment on above: Performed By: #### A 1C #### [facility] [address] [address] [address] Julisa Lowe Glucose [Mass/Vol] 151 mg/dL Normal [place] Comment on above: Performed By: #### A 1C #### [facility] [address] [address] [address] Julisa Lowe HbA1c (Bld) [Mass fraction] 6.9 % Critically high <=6.0 [facility] Comment on above: Performed By: #### A 1C #### [facility] [address] [place] [address] Dr. Julisa Lowe LIPID PROFILEon 09-10-2021 CHOL-HDL RATIO NORM SEE BELOW Normal [facility] Comment on above: Result Comment: 3.3 - 4.4 LOW RISK 4.4 - 7.1 AVERAGE RISK 7.1 - 11.0 MODERATE RISK >11.0 HIGH RISK Performed By: #### A 1C #### [facility] [address] [address] [address] Julisa Lowe Cholesterol [Mass/Vol] 121 mg/dL Normal <=200 [facility] Comment on above: Performed By: #### A 1C #### [facility] [address] [place] [address] Dr. Julisa Lowe Cholesterol in HDL [Mass/Vol] 55 mg/dL Normal [facility] Comment on above: Performed By: #### A 1C #### [facility] [address] [address] [address] Julisa Lowe Cholesterol in LDL [Mass/Vol] 46.8 mg/dL Normal [facility] Comment on above: Performed By: #### A 1C #### [facility] [address] [place] [address] Dr. Julisa Lowe Cholesterol.total/Chol esterol in HDL [Mass ratio] 2.2 {ratio} Normal [facility] Comment on above: Performed By: #### A 1C #### [facility] [address] [address] [address] Julisa Lowe HDL NORMAL > or = 60 mg/dl - LO W CARDIOVASCULAR RISK <40 mg/dl - HIGH CARDIOVASCULAR RISK Normal [facility] Comment on above: Performed By: #### A 1C #### [facility] [address] [address] [address] Julisa Lowe LDL CALC NORMAL SEE BELOW Normal [facility] Comment on above: Result Comment: <100 mg/dl OPTIMAL 100 - 129 mg/dl NEAR OR ABOVE OPTIMAL 130 - 159 mg/dl BORDERLINE HIGH 160 - 189 mg/dl HIGH >190 mg/dl VERY HIGH Performed By: #### A 1C #### [facility] [address] [place] [address] Dr. Julisa Lowe Triglyceride [Mass/Vol] 96 mg/dL Normal <=150 [facility] Comment on above: Performed By: #### A 1C #### [facility] [address] [place] [address] Dr. Julisa Lowe VLDL CALC 19.2 mg/dL Normal [facility] Comment on above: Performed By: #### A 1C #### [facility] [address] [place] [address] Dr. Julisa Lowe MICROALBUMIN, RAND URon 08-14 mALB 33.4 mg/L Critically high <=30.0 [facility] Comment on above: Performed By: #### S EDR #### [facility] [address] [place] [address] Dr. Julisa Lowe PROF 14(COMP METB)on 021 Albumin [Mass/Vol] 3.4 g/dL Critically low 3.5-5.0 [facility] Comment on above: Performed By: #### A 1C #### [facility] [address] [place] [address] Dr. Julisa Lowe Albumin/Globulin [Mass ratio] 1.3 {ratio} Normal [facility] Comment on above: Performed By: #### A 1C #### [facility] [address] [address] [address] Julisa Lowe ALP [Catalytic activity/Vol] 74 U/L Normal 38-126 [facility] Comment on above: Performed By: #### A 1C #### [facility] [address] [place] [address] Dr. Julisa Lowe ALT [Catalytic activity/Vol] 11 U/L Normal 9-52 [facility] Comment on above: Performed By: #### A 1C #### [facility] [address] [address] [address] Julisa Lowe Anion gap [Moles/Vol] 18.2 mmol/L Normal [facility] Comment on above: Performed By: #### A 1C #### [facility] [address] [address] [address] Julisa Lowe AST [Catalytic activity/Vol] 12 U/L Critically low 14-36 [facility] Comment on above: Performed By: #### A 1C #### [facility] [address] [place] [address] Dr. Julisa Lowe Bilirubin [Mass/Vol] 0.3 mg/dL Normal 0.2-1.3 [facility] Comment on above: Performed By: #### A 1C #### [facility] [address] [place] [address] Dr. Julisa Lowe Calcium [Mass/Vol] 9.3 mg/dL Normal 8.4-10.2 [place] Comment on above: Performed By: #### A 1C #### [facility] [address] [place] [address] Dr. Julisa Lowe Chloride [Moles/Vol] 105 mmol/L Normal 98-107 [facility] Comment on above: Performed By: #### A 1C #### [facility] [address] [address] [address] Julisa Lowe Creatinine [Mass/Vol] 0.62 mg/dL Normal 0.52-1.04 [facility] Comment on above: Performed By: #### A 1C #### [facility] [address] [place] [address] Dr. Julisa Lowe EGFR-AF MEXICAN >60 Normal >=60 [facility] Comment on above: Performed By: #### A 1C #### [facility] [address] [place] [address] Dr. Julisa Lowe EGFR-NON AF MEXICAN >60 Normal >=60 [facility] Comment on above: Performed By: #### A 1C #### [facility] [address] [address] [address] Julisa Lowe Globulin (S) [Mass/Vol] 2.7 g/dL Normal [facility] Comment on above: Performed By: #### A 1C #### [facility] [address] [address] [address] Julisa Lowe Glucose [Mass/Vol] 134 mg/dL Critically high 74-106 T [facility] Comment on above: Performed By: #### A 1C #### [facility] [address] [place] [address] Dr. Julisa Lowe Potassium [Moles/Vol] 4.3 mmol/L Normal 3.4-5.0 [facility] Comment on above: Performed By: #### A 1C #### [facility] [address] [place] [address] Dr. Julisa Lowe Protein [Mass/Vol] 6.1 g/dL Normal 6.1-8.2 [place] Comment on above: Performed By: #### A 1C #### [facility] [address] [place] [address] Dr. Julisa Lowe Sodium [Moles/Vol] 142 mmol/L Normal 137-145 [facility] Comment on above: Performed By: #### A 1C #### [facility] [address] [place] [address] Dr. Julisa Lowe Urea nitrogen [Mass/Vol] 23.0 mg/dL Critically high 7.0-17.0 [facility] Comment on above: Performed By: #### A 1C #### [facility] [address] [place] [address] Dr. Julisa Lowe Urea nitrogen/Creatinine [Mass ratio] 37.1 mg/mg Normal [facility] Comment on above: Performed By: #### A 1C #### [facility] [address] [place] [id number] [address] Julisa Lowe [facility] SARS-CoV-2 (COVID-19) RNA CHALINO+probe Ql (Unsp spec) Not detected Normal NOT DETECTED [facility] Comment on above: Result Comment: This test is not yet approved or cleared by the [place] FDA. When there are no FDA-approved or cleared tests available, and other criteria are met, FDA can make tests available under an emergency access mechanism called an Emergency Use Authorization (EUA). The EUA for this test is supported by the [place] of Health and Human Service's (HHS's) declaration [...] consistent with SARS-CoV-2. Performed By: #### C [facility] #### [facility] [address] [place], [place] [id number] Dr. Julisa Lowe Vital Signs Date Time Vital Sign Value Performing Clinician Facility 02-29-2024 10:35-0400 Blood Pressure Location [facility] 02-29-2024 10:35-0400 Diastolic blood pressure 78 mm[Hg] T[facility]B [facility] 02-29-2024 10:35-0400 Heart rate 68 /min TRSB [facility] 02-29-2024 10:35-0400 Respiratory rate 16 /min TRSB [facility] 02-29-2024 10:35-0400 Systolic blood pressure 132 mm[Hg] Shante Shukla [facility] 05-12-2022 15:00-0400 Diastolic blood pressure 49 mm[Hg] Chair Hilda Work Phone: [facility] 05-12-2022 15:00-0400 Heart rate 98 /min Chair Hilda Work Phone: [facility] 05-12-2022 15:00-0400 SaO2% (BldA) [Mass fraction] 95 % Chair Hilda Work Phone: [facility] 05-12-2022 15:00-0400 Systolic blood pressure 137 mm[Hg] Chair Hilda Work Phone: [facility] 05-12-2022 13:30-0400 Body temperature 98.6 [degF] Chair Hilda Work Phone: [facility] 05-12-2022 10:15-0400 Diastolic blood pressure 87 mm[Hg] MD Hood Benavidez Work Phone: [facility] 05-12-2022 10:15-0400 Heart rate 82 /min MD Hood Benavidez Work Phone: [facility] 05-12-2022 10:15-0400 Respiratory rate 16 /min MD Hood Benavidez Work Phone: [facility] 05-12-2022 10:15-0400 SaO2% (BldA) [Mass fraction] 100 % MD Hood Benavidez Work Phone: [facility] 05-12-2022 10:15-0400 Systolic blood pressure 149 mm[Hg] MD Hood Benavidez Work Phone: [facility] 05-12-2022 07:54-0400 Body height 154.94 cm MD Hood Benavidez Work Phone: [facility] 05-12-2022 07:54-0400 Body weight 53.52 kg MD Hood Benavidez Work Phone: [facility] 05-06-2022 14:29-0400 Body temperature 99 [degF] Chair [place] Work Phone: [facility] 05-06-2022 14:29-0400 Diastolic blood pressure 51 mm[Hg] Chair Hilda Work Phone: [facility] 05-06-2022 14:29-0400 Heart rate 93 /min Chair [place] Work Phone: [facility] 05-06-2022 14:29-0400 Respiratory rate 16 /min Chair Hilda Work Phone: [facility] 05-06-2022 14:29-0400 SaO2% (BldA) [Mass fraction] 98 % Chair Hilda Work Phone: [facility] 05-06-2022 14:29-0400 Systolic blood pressure 129 mm[Hg] Chair [place] Work Phone: [facility] 04-28-2022 10:47-0400 Body temperature 98.91 [degF] Chair [place] Work Phone: [facility] 04-28-2022 10:47-0400 Diastolic blood pressure 64 mm[Hg] Chair [place] Work Phone: [facility] 04-28-2022 10:47-0400 Heart rate 88 /min Chair [place] Work Phone: [facility] 04-28-2022 10:47-0400 Respiratory rate 18 /min Chair Hilda Work Phone: [facility] 04-28-2022 10:47-0400 SaO2% (BldA) [Mass fraction] 98 % Chair [place] Work Phone: [facility] 04-28-2022 10:47-0400 Systolic blood pressure 122 mm[Hg] Chair [place] Work Phone: [facility] 04-22-2022 14:02-0400 Body temperature 99 [degF] Chair Hilda Work Phone: [facility] 04-22-2022 14:02-0400 Diastolic blood pressure 56 mm[Hg] Chair [place] Work Phone: [facility] 04-22-2022 14:02-0400 Heart rate 95 /min Chair Hilda Work Phone: [facility] 04-22-2022 14:02-0400 Respiratory rate 18 /min Chair [place] Work Phone: [facility] 04-22-2022 14:02-0400 SaO2% (BldA) [Mass fraction] 96 % Chair Hilda Work Phone: [facility] 04-22-2022 14:02-0400 Systolic blood pressure 123 mm[Hg] Chair [place] Work Phone: [facility] 10-14-2021 14:15-0500 Body height 154.94 cm Lawanda Olexa Other [employer] [facility] [place] Other 10-14-2021 14:15-0500 Body mass index (BMI) [Ratio] 22.26 kg/m2 Lawanda Olexa Other [employer] [facility] [place] Other 10-14-2021 14:15-0500 Body weight 53.43 kg Lawanda Olexa Other [employer] [facility] [place] Other Encounters Encounter Date Encounter Type Care Provider Facility Start: 03-14-2024 End: 03-14-2024 [facility] Start: 02-29-2024 End: 02-29-2024 ambulatory Shante X Orzech Facility:[facility] Start: 02-29-2024 End: 02-29-2024 Lab Drop off Shante X Orzech [facility] Start: 02-29-2024 End: 02-29-2024 ambulatory Shante X Gayla Facility: [place] Start: 02-29-2024 End: 02-29-2024 Patient encounter procedure Shante Shukla [facility] Start: 01-04-2024 End: 01-04-2024 ambulatory SHAIKH CLARE Not Available Start: 08-17-2023 End: 08-17-2023 ambulatory SHAIKH KULWANTD Not Available Start: 06-22-2022 End: 06-23-2022 ambulatory SHAIKH Ivette SPARKS Facility: Start: 05-12-2022 End: 05-12-2022 ambulatory Chair 15 Hilda Work Phone: Hematology/Oncology Comment on above: Iron deficiency anem ia due to chronic blood loss (Primary Dx) Start: 05-07-2022 End: 05-07-2022 Patient encounter procedure MD Hood Benavidez Work Phone: [facility] Start: 05-06-2022 End: 05-06-2022 ambulatory Chair 14 Stockton Work Phone: Hematology/Oncology Comment on above: Iron deficiency anem ia due to chronic blood loss (Primary Dx) Start: 04-28-2022 End: 04-28-2022 ambulatory Chair 14 Stockton Work Phone: Hematology/Oncology Comment on above: Iron deficiency anem ia due to chronic blood loss (Primary Dx) Start: 04-22-2022 End: 04-22-2022 ambulatory Chair 13 Stockton Work Phone: Hematology/Oncology Comment on above: Iron deficiency anem ia due to chronic blood loss (Primary Dx) Start: 04-15-2022 End: 04-15-2022 ambulatory Hood Benavidez Other [employer] [place] Other Start: 04-15-2022 Telephone encounter Hood chavez [facility] G[facility] Start: 04-14-2022 Telephone encounter Christy jefferson RN Work Phone: Hematology/Oncology Comment on above: Critical Results (Gl ucose) Start: 04-14-2022 End: 04-14-2022 ambulatory Chair 15 Stockton Work Phone: Hematology/Oncology Comment on above: Iron deficiency anem ia due to chronic blood loss (Primary Dx); Controlled type 2 diabetes mellitus without complication, unspecified whether alf insulin use (HCC) Start: 04-08-2022 End: 04-09-2022 ambulatory SHAIKH Ivette SPARKS Facility:[facility] Start: 04-06-2022 Telephone encounter Christi lópez MD [facility] Comment on above: Appointment Confirma tion Start: 02-06-2022 End: 02-07-2022 ambulatory EDD ROMAN Facility:[facility] Start: 01-23-2022 End: 01-24-2022 ambulatory SHAIKH Ivette SPARKS Facility:[facility] Start: 12-22-2021 End: 12-23-[address] Brayden Keller Facility:[facility] Start: 12-20-2021 End: 12-21-[address] CATHERINE SANCHEZ Facility:[facility] Start: 12-15-2021 End: 12-16-2021 ambulatory EDD ROMAN Facility:[facility] Start: 12-04-2021 End: 12-05-2021 ambulatory SHAIKH Ivette SPARKS Facility:[facility] Start: 11-28-2021 End: 11-29-2021 ambulatory SHAIKH Ivette SPARKS Facility:[facility] Start: 10-22-2021 ambulatory H CLARE Facilit y:[facility] Start: 10-14-2021 End: 10-14-2021 ambulatory Lawanda Alvarez Other [employer] [place] Other Start: 10-14-2021 Office outpatient ne w 30 minutes Lawanda Alvarez [facility] Start: 09-10-2021 End: 09-11-2021 ambulatory WATERS H CLARE Facility:[facility] Start: 08-16-2021 Encounter for preprocedural laboratory examination DR LJ BRENNAN [facility] Start: 08-13-2021 End: 08-13-[address] LJ BRENNAN Facility:[facility] Start: 08-12-2021 End: 08-13-2021 ambulatory SHAIKH Ivette SPARKS Facility:[facility] Start: 08-12-2021 End: 08-13-2021 Encounter for preprocedural laboratory examination WATERS H CLARE Facility:[facility] Procedures Date Procedure Procedure Detail Performing Clinician Start: 04-14-2022 Gluc bld gluc mntr d ev cleared fda spec home use [facility] Provider Start: 09-13-2020 Colonoscopy Shante Orz ech Start: 04-22-2017 Cystourethroscopy wi th dilation of urethral stricture Shante Orzech Comment on above: 01/09/2019 Back structure, excl uding neck (body structure) Shante Orzech Cataract (disorder) Shante O rzech Cholecystectomy Shante Orzec h Hysterectomy Shante Orzech Tonsillectomy Shante Orzech Plan of Treatment Date Care Activity Detail Author Start: 04-14-2025 DIABETES SCREEN DIABETES SCREEN [facility] Start: 04-11-2024 ambulatory Ambulatory Facility:[facility] Start: 05-14-2022 Influenza vaccination INFLUENZA (#1) [facility] Start: 05-12-2022 [facility] Work Phone: Start: 05-12-2022 Esophagogastroduodenoscopy DH EGD (Not Applicable) [facility] Start: 05-12-2022 End: 05-12-2022 Admission to same day surgery center Iron deficiency anemia [facility] Start: 09-13-2021 ADVANCE DIRECTIVE DISCUSSION ADVANCE DIRECTIVE DISCUSSION [facility] Start: 11-14-2015 BONE DENSITY BONE DENSITY [facility] Start: 11-14-1995 COLOGUARD (FIT-DNA) COLOGUARD (FIT-DNA) [facility] Start: 11-14-1995 Colonoscopy COLONOSCOPY [facility] Start: 11-14-1995 COLORECTAL CANCER SCREENING COLORECTAL CANCER SCREENING [facility] Start: 11-14-[address] COLONOGRAPHY [facility] Start: 11-14-1995 FECAL OCCULT BLOOD FECAL OCCULT BLOOD [facility] Start: 11-14-1995 LIPID SCREEN LIPID SCREEN [facility] Start: 11-14-1995 SIGMOIDOSCOPY SIGMOIDOSCOPY [facility] Start: 1990 Mammography MAMMOGRAM [facility] Start: 1969 SHINGRIX VACCINE (1 of 2) SHINGRIX VACCINE (1 of 2) [facility] Start: 1969 Urine microalbumin profile DTAP,TDAP,TD (1 - Tdap) [facility] Start: 1968 HEPATITIS C SCREENING HEPATITIS C SCREENING [facility] Start: 1962 Adult depression screening assessment DEPRESSION SCREENING [facility] Start: 1956 PNEUMOCOCCAL: 65+ (1 - PCV) PNEUMOCOCCAL: 65+ (1 - PCV) [facility] Start: 11-14-1955 COVID-19 VACCINE (#1) COVID-19 VACCINE (#1) [facility] Start: 05-16-1951 COVID-19 VACCINE (#1) COVID-19 VACCINE (#1) [facility] Glucose [Mass/volume ] in Serum or Plasma GLUCOSE, BLOOD (POC) Lab Routine Iron deficiency anemia due to chronic blood loss Controlled type 2 diabetes mellitus without complication, unspecified whether alf insulin use (HCC) Ordered: 04/14/2022 [facility] Work Phone: Comment on above: Ordered: 04/14/2022 Patient Education Hiatal Hernia (DC) [facility] Work Phone: [facility] Payers Date Payer Category Payer Medicaid MEDICAID [facility] MEDICAID [id number] 2022-Present [phone] [address] [place] [address] Medicaid [id number] 2022 Medicaid MEDICAID [facility] MEDICAID [id number] 2022-Present [phone] [address] [place] [address] Medicaid [id number] 2021 Medicare UHC MEDICARE UHC DUAL COMPLETE HMO SNP [id number] 2021-Present [phone] [address] [place] [address] Medicare [id number] 2021 Medicare UHC MEDICARE UHC DUAL COMPLETE HMO SNP [id number] 2021-Present [phone] [address] [place] [address] Medicare [id number] 1959 Medicaid [id number] 1959 Medicare [id number] 1959 Medicare [id number] 1959 Private Health Insurance [id number] 1950 Unknown [id number] 2.16.840.1.376749.3.579.2.5 1950 Unknown [id number] 2.16.840.1.539988.3.579.2.5 1950 Unknown [id number] 2.16.840.1.831303.3.579.2.5 1950 Unknown [id number] 2.16.840.1.893030.3.579.2.5 1950 Unknown [id number] 2.16.840.1.583474.3.579.2.5 1950 Unknown [id number] 2.16.840.1.591451.3.579.2.5 93 1950 Unknown [id number] 2.16.840.1.437017.3.579.2.5 93 1950 Unknown [id number] 2.16.840.1.836872.3.579.2.5 93 1950 Unknown [id number] 2.16.840.1.719855.3.579.2.5 93 1950 Unknown [id number] 2.16.840.1.105938.3.579.2.5 93 1950 Unknown [id number] 2.16.840.1.472556.3.579.2.5 93 1950 Unknown [id number] 2.16.840.1.693010.3.579.2.5 93 1950 Unknown [id number] 2.16.840.1.673652.3.579.2.5 93 1950 Unknown [id number] 2.16.840.1.462087.3.579.2.1 259 1950 Unknown [id number] 2.16.840.1.738669.3.579.2.1 259 1950 Unknown [id number] 2.16.840.1.932271.3.579.2.7 27 1950 Unknown [id number] 2.16.840.1.328441.3.579.2.7 27 1950 Unknown [id number] 2.16.840.1.209729.3.579.2.7 27 Medicare Medicare [id number] Private Health Insurance [employer] [id number] Self-pay Self Pay [id number] Social History Date Type Detail Facility Sex Assigned At [facility] Start: 03-31-2016 End: 02-29-2024 Tobacco smoking status NHIS Never smoked tobacco [facility] Start: 03-31-2016 Tobacco use and exposure Smokeless tobacco non-user [facility] Start: 04-14-2022 End: 04-28-2022 Alcohol intake Current non-drinker of alcohol (finding) [facility] Start: 1950 Sex Assigned At Not on file [facility] Start: 04-04-2022 End: 05-12-2022 Exposure to SARS-CoV-2 (event) Not sure [facility] Start: 1950 Sex Assigned At Female F [facility] Tobacco smoking status Never [facility] Goals Date Patient Goal Desired Activity /State Functional Status Date Assessment Result Facility 02-29-2024 Functional Status N/A [facility] Clinical Notes 10-14-2021 to 03-14-2024 Telephone Encounter - Makenna Kendall RN - 04/21/2022 1:47 PM EDTTelephone Encounter - Makenna Kendall RN - 04/21/2022 1:31 PM EDTTelephone Encounter - Christi Fink MD - 04/14/2022 1:39 PM EDT Note Date & Type Note Facility 03-14-2024 Note Cardiology Follow Up Progress Note Chief Complaint: Follow up HPI: Robina Ron is a 73 y.o. female who has a past medical history of Abnormal ECG, Anemia, Arrhythmia, Atrial fibrillation (CMS/HCC), Chronic kidney disease, Clotting disorder (CMS/HCC), Diabetes mellitus (CMS/HCC), Hyperlipidemia, Hypertension, Pericardial effusion, and Stroke (CMS/HCC). That presents today for follow up. Patient endorses some shortness of breath, but adamantly denies any additional cardiac complaints or concerns. Patient denies any chest pain. Patient denies any lower extremity edema, orthopnea, or proximal nocturnal dyspnea. No near-syncope or syncope. No dizziness or lightheadedness. Patient states that she has been off anticoagulation for several years due to anemia. She denies any history of bleeding. Cardiology ROS: 10 point ROS is performed and is negative unless otherwise specified in HPI. Medications Current Outpatient Medications on File Prior to Visit Medication Sig Dispense Refill atorvastatin (Lipitor) 20 mg tablet 20 mg in the morning. dilTIAZem ER (Tiazac) 240 mg 24 hr capsule Take 1 tablet by mouth in the morning. Farxiga 10 mg Take 10 mg by mouth in the morning. glipiZIDE (Glucotrol) 5 mg tablet Take 5 mg by mouth once daily as directed. insulin NPH and regular human (NovoLIN) 100 unit/mL (70-30) injection pen INJECT 15 UNITS SUBCUTANEOUSLY 3 TIMES EVERY DAY PER INSULIN PROTOCOL lisinopril 10 mg tablet Take 10 mg by mouth in the morning. metoprolol tartrate (Lopressor) 50 mg tablet Take 1 tablet by mouth in the morning and at bedtime. pantoprazole (ProtoNix) 40 mg EC tablet Take 1 tablet by mouth in the morning. traZODone (Desyrel) 50 mg tablet TAKE 1 TABLET BY MOUTH EVERYDAY AT BEDTIME trospium (Sanctura) 20 mg tablet Take 20 mg by mouth in the morning and at bedtime. Trulicity 1.5 mg/0.5 mL pen injector Inject 1.5 mg under the skin 1 (one) time per week. No current facility-administered medications on file prior to visit. Allergies Oxycodone-acetaminophen and Oxycodone Physical Exam VITAL SIGNS: BP 132/74 (BP Location: Left arm, Patient Position: Sitting) Pulse 82 Ht 1.549 m (5' 1 ) Wt 65.8 kg (145 lb) SpO2 97% BMI 27.40 kg/m??? Constitutional: Well developed, Well nourished, No acute distress, Non-toxic appearance. HENT: Normocephalic, Atraumatic, Bilateral external ears have normal appearance, Nose appears normal, nares are patent. Eyes: PERRLA, EOMI, Conjunctiva normal, No discharge. Neck: Normal range of motion, No tenderness, Supple, No stridor. No cervical lymphadenopathy noted. Cardiovascular: Normal heart rate, Normal rhythm, No murmurs, No rubs, No gallops. Thorax & Lungs: Normal breath sounds, No respiratory distress, No wheezing, No chest tenderness to palpation. Abdomen: Bowel sounds normal, Soft, Nontender, No masses, No pulsatile masses. Skin: Warm, Dry, No erythema, No rash. Back: No tenderness, No CVA tenderness. Extremities: Intact distal pulses, No edema, No tenderness, No cyanosis, No clubbing. Musculoskeletal: Grossly normal strength in extremities Neurologic: Alert & oriented x 3, no gross focal neurological deficits Psychiatric: Affect normal, Judgment normal, Mood normal. Assessment/Plan: Robina Ron is a 73 y.o. female with Shortness of breath Pericardial effusion Paroxysmal atrial fibrillation (CMS/HCC) Factor V Leiden (CMS/HCC) Diagnoses and all orders for this visit: Pericardial effusion - Transthoracic echo (TTE) complete; Future - CBC and differential; Future - Comprehensive metabolic panel; Future Paroxysmal atrial fibrillation (CMS/HCC) - apixaban (Eliquis) 5 mg tablet; Take 1 tablet (5 mg) by mouth in the morning and at bedtime. - ECG 12 lead - 30 day event monitor to assess Afib burden Factor V Leiden - Hematology referral [facility] medical management Aggressive risk factor modification Plan of care discussed with patient. All questions were answered. Patient voices understanding and is agreeable with current plan. Patient was educated on red flag symptoms. Strict return precautions were provided. Patient verbalizes understanding Follow-up in cardiology clinic in 3 months, or sooner as needed Edd Roman MD Interventional Cardiology [facility] 03-05-2024 Note Chief Complaint Referral *Incontinence HPI Staff Evaluation requested by Dr Shaikh Sparks due to postural urinary incontinence. Pt is a new pt. Last seen by DLS 02/22/19. DX: frequency, stress incontinence, nocturia, glycosuria [...] with voice recognition artificial intelligence software, specifically [employer] and or [employer]. Substitutions may have occurred due to the [...] When Contact Information AMALIA Shukla APRN, Shante Bonilla, FAM, URL Additional Instructions: 8 weeks with [...] diabetic autonomic (poly)neuropathy (more content not included)... [place] Comment on above: Result Comment: Elec tronically Signed By: AMALIA Shukla APRN, [place] [facility]\.br\Date and Time Signed: 03/05/24 22:19 EDT 04-21-2022 Miscellaneous Notes Pt has follow up appointment with Dr Rainey tomorrow. Makenna Kendall, RN Spoke with Pankaj at Dr Rainey's office. Recent records and labs faxed to [phone] per office request. Makenna Kendall RN Message left with Dr Rainey's clinical specialist medical device again today regarding this pt and the urgency of this being addressed. Will try again later today if I don't hear back from their office. Makenna Kendall RN Call placed to [facility]. Office is closed. Makenna Kendall RN PCP updated in chart Glucose rechecked in the office and it was 373 by fingerstick. Call placed to Dr Joseph who is listed at pt's PCP. Jono states he has not worked in the office in 4 years now. Jono states pt is now seen by Dr Rainey at [facility]. Call placed to their office ([phone]) and message left requesting a call back. PSS: can you please update pt's PCP info. Thanks, Makenna Kendall RN Thanks. Can we have her PCP address this, Thanks Key Monteiro from [facility] Lab Client Services calls to report critical results: Glucose - 506 Pt identifiers and results read back for verification. Christy Mello RN documented in this encounter [facility] 04-16-2022 Miscellaneous Notes Called Angélica Romano spoke [...] were not included. Please send records to [facility] office thanks! MD Tj Thompson; Makenna Hidalgo Sec Please refer her to GI for an upper endoscopy. Thanks documented in this encounter [facility] 04-15-2022 Evaluation note Encounter Date Diagnosis Assessment Notes Apr, Anemia due to blood loss, chronic (ICD-10 - D50.0) [employer] [place] Other 08-02-2022 NoteHNO ID: [id number] Author: Brenda Tavera RN Service: ? Author [...] noted. She has verbalized understanding [facility] NoteHNO ID: [id number] Author: Christi Fink MD Service: ? Author Type: Physician Type: Progress Notes Filed: 04/14/2022 1:13 PM Note Text: PATIENT NAME: Robina Ron CLINIC NO.: [id number] ATTENDING PHYSICIAN: Christi Fink MD DATE OF [...] g/dL Final RDW-CV Date (more content not included)...[facility]08-02-2022 History of Present illness Narrative* Brenda Tavera [...] understanding Brenda Tavera RN [facility] NoteHNO ID: [id number] Author: Christi Fink MD Service: ? Author Type: Physician Type: Progress Notes Filed: 04/04/2022 11:07 AM Note Text: PATIENT NAME: Robina Ron CLINIC NO.: [id number] ATTENDING PHYSICIAN: Christi Fink MD DATE OF [...] not taking: Reported on 03/31/2022 ) - Xadlc-3-DVO-EPA-Fish Oil 1,000 mg (120 mg-180 mg) cap [...] obstructive pulmonary disease) (HCC) - CVA (cerebral (more content not included)...[facility] 12-22-2021 NoteCARDIAC STRESS TEST Requesting Physician: Procedure [...] interpreted and reported in a separate dictation. [facility] Signed and Approved by: DR ALFRED HAQUE 03/03/2022 10:18:00[facility]02-01-2022 Evaluation note* Encounter Date Diagnosis Assessment Notes [...] We discussed that there will be a manager intermediate cosmetic deformity at the AC joint, however, relatively normal function can return. If manager intermediate pain and dysfunction occur, surgical treatment can be considered. Patient given order for physical therapy. [employer] [place] Other Evaluation + Plan note Future Appointments Appointment Date:04/11/2024 09:00:00 AM Scheduled Provider:AMALIA Shukla APRN, [place] [facility] Location:[facility] Appointment Type:URO Office Visit [facility] evaluation + Plan note Future Appointments Appointment Date:04/11/2024 09:00:00 AM Scheduled Provider:AMALIA Shukla APRN, [place] Location:[facility] Appointment Type:URO Office Visit Diagnostic Tests Pending * Urine [facility] Diagnosis Iron deficiency anemia due to chronic blood loss- Primary Iron deficiency anemia secondary to blood loss (chronic) Controlled type 2 diabetes mellitus without complication, unspecified whether alf insulin use (HCC) [facility] Diagnosis Iron deficiency anemia due to chronic blood loss- Primary Iron deficiency anemia secondary to blood loss (chronic) [facility] Diagnosis Iron deficiency anemia due to chronic blood loss- Primary Iron deficiency anemia secondary to blood loss (chronic) [facility]* Diagnosis Iron deficiency anemia due to chronic blood loss- Primary Iron deficiency anemia secondary to blood loss (chronic) [facility] Diagnosis Iron deficiency anemia due to chronic blood loss- Primary Iron deficiency anemia secondary to blood loss (chronic) [facility] Diagnosis Onset Date Resolution Status Iron deficiency anemia [facility] Work Phone: History general Narrative - Reported* Type Description Date Medical History diabetes type 2 Medical History stroke Medical History mild form of leukemia Surgical History x2 Surgical History cateract removal bilateral Surgical History kidney and bladder surgery Surgical History choliectomy Hospitalization History listed above [employer] [place] Other Hospital course Narrative No data available for this section [facility] Hospital Discharge instructions No data available for this section [facility] progress note No data available for this section [facility] Medications Administered Section Inactive Administered Medications - [...] INJECTION PER 1 MG Christi Fink MD [address] [place] [id number] Jasiel Treat [address] [address] Referral ID Status Reason Start Date Expiration Date V isits Requested Visits Authorized [id number] Authorized 04/03/2022 09/12/2022 99 99 Reason Comments Appointment Confirmation Reason Comments Critical Results Glucose Source Comments (unrecognize d section and content) In the event this informatio n is protected by the Federal Confidentiality of Alcohol and Drug Abuse Patient Records regulations: The Federal rules restrict any use of the information to criminally investigate or prosecute any alcohol or drug abuse patient.[facility] the event this information is protected by the Federal Confidentiality of Alcohol and Drug Abuse Patient Records regulations: The Federal rules restrict any use of the information to criminally investigate or prosecute any alcohol or drug abuse patient.[facility] the event this information is protected by the Federal Confidentiality of Alcohol and Drug Abuse Patient Records regulations: The Federal rules restrict any use of the information to criminally investigate or prosecute any alcohol or drug abuse patient.[facility] the event this information is protected by the Federal Confidentiality of Alcohol and Drug Abuse Patient Records regulations: The Federal rules restrict any use of the information to criminally investigate or prosecute any alcohol or drug abuse patient.[facility] the event this information is protected by the Federal Confidentiality of Alcohol and Drug Abuse Patient Records regulations: The Federal rules restrict any use of the information to criminally investigate or prosecute any alcohol or drug abuse patient.[facility] the event this information is protected by the Federal Confidentiality of Alcohol and Drug Abuse Patient Records regulations: The Federal rules restrict any use of the information to criminally investigate or prosecute any alcohol or drug abuse patient.[facility] the event this information is protected by the Federal Confidentiality of Alcohol and Drug Abuse Patient Records regulations: The Federal rules restrict any use of the information to criminally investigate or prosecute any alcohol or drug abuse patient.[facility] Care Teams (unrecognized sec tion and content) Expander Relationship Specialty Start Date End Date Shaikh Sparks MD [address] [place] [address] PCP - General Primary Care 04/14/22 Expander Relationship Specialty Start Date End Date Demetrio Joseph PCP - General Family Practice 03/09/16 04/13/22 Shaikh Sparks MD [address] [place] [address] PCP - General Primary Care 04/14/22 Expander Relationship Specialty Start Date End Date Shaikh Sparks MD [address] [place] [address] PCP - General Primary Care 04/14/22 Expander Relationship Specialty Start Date End Date Shaikh Sparks MD [address] [place] [address] PCP - General Primary Care 04/14/22 Expander Relationship Specialty Start Date End Date Shaikh Sparks MD [address] [place] [address] PCP - General Primary Care 04/14/22 Expander Relationship Specialty Start Date End Date Shaikh Sparks MD [address] [place] [address] PCP - General Primary Care 04/14/22 Expander Relationship Specialty Start Date End Date Shaikh Sparks MD [address] [place] [address] PCP - General Primary Care 04/14/22 Team Status: Inactive Member Role Status Dates Hood Benavidez MD Attending Provider Active Shaikh Clare MD Primary Care Provider Active Team Status: Active Member Role Status Dates Shaikh Clare MD Primary Care Provider Active INFORMATION SOURCE (unrecogn ized section and content) DATE CREATED AUTHOR 05/14/2022 [facility] DATE CREATED AUTHOR AUTHOR'S ORGANIZ ATION 05/16/2022 [facility] DATE CREATED AUTHOR AUTHOR'S ORGANIZ ATION 07/07/2022 [facility] DATE CREATED AUTHOR AUTHOR'S ORGANIZ ATION 01/05/2024 [facility] DATE CREATED AUTHOR AUTHOR'S ORGANIZ ATION [facility]/03/2024 [facility] DATE CREATED AUTHOR AUTHOR'S ORGANIZ ATION 03/05/2024 [facility] DATE CREATED AUTHOR AUTHOR'S ORGANIZ ATION 03/09/2024 [facility] DATE CREATED AUTHOR AUTHOR'S ORGANIZ ATION 03/15/[address] [facility] FOR RECORDS PERTAINING TO PATIENTS [...] BE BASED ON THE PRIMARY CLINICAL RECORDS. [facility] [employer] [facility]. provides no warranty or guarantee of the accuracy or completeness of information in this document.
--- NOTE | 2024-04-05 13:00 | CA_ITS ---
Patient Name: CHEY RON MR#: [id number] : 1950 Exam Date: 04/05/2024 Ordering Doctor: EDD WADE M.D. ECHOCARDIOGRAM REPORT PROCEDURE: CA ECHO DOPPLER COMPLETE INDICATIONS: Pericardial effusion, hypertension, diabetes, TIA COMPARISON: None. DESCRIPTION: COMPLETE ECHOCARDIOGRAM Real-time transthoracic echocardiography with 2D, M-mode, spectral and color flow Doppler performed. QUALITY: Technical quality was good. LEFT VENTRICLE: Normal chamber size. Borderline left ventricular hypertrophy. Normal systolic function. LV EF: Normal left ventricular ejection fraction, (55%). DIASTOLIC: Grade I diastolic dysfunction. ATRIAL SEPTUM: Visually appears intact. LEFT ATRIUM: Mild dilatation. RIGHT ATRIUM: Normal chamber size. RIGHT VENTRICLE: Normal chamber size. Normal right ventricular systolic function. TRICUSPID VALVE: Normal mobility and thickness. No stenosis with trivial regurgitation. Doppler studies reveal mildly (35-45) elevated right sided pressures. RVSP 35 mmHg MITRAL VALVE: Normal mobility and thickness. No evidence of mitral valve stenosis. Mild mitral annular calcification. Trivial mitral regurgitation. AORTIC VALVE: Normal trileaflet appearance. Thickened aortic valve. Normal leaflet mobility. No evidence of aortic valve stenosis. No aortic regurgitation. AORTIC ROOT: Normal diameter and appearance. Ascending aorta is normal in size. PULMONIC VALVE: Normal thickness and mobility. No stenosis. Trivial regurgitation. PERICARDIUM: Echogenic material is noted in the anterior pericardial space consistent with a clotted small pericardial effusion with no evidence of cardiac tamponade. IVC: Collapses with inspirations. IVC is normal in size. PLEURA: CONCLUSION: 1. Normal left ventricular size and systolic function. LVEF is estimated at 55%. 2. Normal right ventricular size and systolic function. 3. Mild diastolic dysfunction. 4. No significant valvular dysfunction. 5. Small clotted anterior pericardial effusion without any signs of cardiac tamponade physiology. 6. Mildly elevated right-sided pressures. Adult Echocardiography Procedure Report Left Ventricle LVEDD (3.7 - 5.6 cm): 4.27 cm LVESD (2.2 - 4.0 cm): 3.00 cm LVIVS thickness (0.6 - 1.2 cm): 1.14 cm LVPW thickness (0.5 - 1.0 cm): 0.99 cm e': 0.05 m/s E - e': 14.29 LVOT Max Gradient: 3.38 mm[Hg] LVOT Area (cm2): 0.92 m/s Peak Velocity (LVOT): 0.92 m/s Mean Velocity (LVOT): 0.64 m/s LVOT Diameter 1.83 cm Left Atrium LA Volume Index (2D A2C): 36.54 ml/m2 Left Atrium Systolic Dimension: 3.39 cm Mitral Valve MV E to A Ratio: 0.77 Mitral Valve A-Wave Peak Velocity: 0.86 m/s Mitral Valve E-Wave Peak Velocity: 0.66 m/s Right Ventricle Aorta AO Root Diam: 2.82 cm Ascending Ao Diam: 2.25 cm Aortic Valve AoV Area (Peak Raghu): 1.81 cm2, 1.81 cm2 AoV Area (VTI): 1.73 cm2, 1.73 cm2 Peak Velocity(Antegrade Flow): 1.33 m/s Peak Gradient(Antegrade Flow): 7.06 mm[Hg] Mean Velocity(Antegrade Flow): 0.95 m/s Mean Gradient(Antegrade Flow): 4.01 mm[Hg] Velocity Time Integral: 28.92 cm Tricuspid Valve Peak Velocity (Regurgitant Flow): 2.84 m/s Pulmonic Valve Mean Gradient: 1.95 mm[Hg] Mean Velocity: 0.66 m/s Peak Velocity: 0.93 m/s, 0.94 m/s Peak Gradient: 3.53 mm[Hg], 3.43 mm[Hg] Right Atrium Right Atrium Systolic Pressure: 28.63 ml, 28.63 ml Dictated by: Chris Fuchs M.D. on 04/05/2024 at 16:35 Approved by: Chris Fuchs M.D. on 04/05/2024 at 16:40
== END 2024-04-05 12:43 | disposition home or self-care (01) ==
LOC: CARD 12:43
PROVIDERS: PCP Internal Medicine; Visit Provider Internal Medicine Cardiovascular Disease
DX: I31.39 Other pericardial effusion (noninflammatory) (principal)
CPT/HCPCS: 93306

== ENCOUNTER 2024-04-11 07:24 | Outpatient (RCR) | payer MEDICARE, MEDICAID, SELFPAY ==
[2024-04-11 10:14] LABS: Basophils Percent Auto 0.3 % (0.2-2.0); Eosinophils Absolute Auto 0.1 10^3/uL (0.0-0.7); Eosinophils Percent Auto 1.2 % (0.9-7.0); Hematocrit 43.9 % (36.0-48.0); Hemoglobin 14.4 g/dL (12.0-16.0); Immature Granulocytes Abs Auto 0.05 10^3/uL (0.00-0.03); Immature Granulocytes Pct Auto 0.5 % (0.0-0.5); Lymphocytes Absolute Auto 3.1 10^3/uL (1.2-3.8); Lymphocytes Percent Auto 29.3 % (20.5-60.0); Mean Corpuscular HGB Conc 32.8 g/dL (29.9-35.2); Mean Corpuscular Volume 91.5 fL (81.0-99.0); Monocytes Absolute Auto 0.6 10^3/uL (0.3-0.8); Monocytes Percent Auto 5.8 % (1.7-12.0); Neutrophils Absolute Auto 6.6 10^3/uL (1.4-6.5); Neutrophils Percent Auto 62.9 % (43.0-75.0); Platelet Count 177 10^3/uL (150-450); White Blood Count 10.5 10^3/uL (4.0-11.0)
[2024-04-11 10:35] LABS: Alanine Aminotransferase 35 U/L (14-59); Albumin Globulin Ratio 1.1; Albumin Level 3.3 g/dL (3.4-5.0); Alkaline Phosphatase 168 U/L (46-116); Anion Gap 10.3; Aspartate Amino Transferase 13 U/L (15-37); Bilirubin Total 0.5 mg/dL (0.2-1.0); Calcium 8.9 mg/dL (8.5-10.1); Carbon Dioxide 27.3 mmol/L (21.0-32.0); Chloride 106 mmol/L (98-107); Estimated GFR (African America >60 (>=60); Estimated GFR (Non-African Ame 51 (>=60); Glucose 214 mg/dL (74-106); Lactate Dehydrogenase 152 U/L (81-234); Potassium 3.6 mmol/L (3.5-5.1); Sodium 140 mmol/L (136-145); Total Protein 6.3 g/dL (6.4-8.2)
[2024-04-11 12:00] LABS: Percent Iron Saturation 18.9 %
[2024-04-15 14:08] LABS: Immunoglobulin A, Qn, Serum 129 mg/dL (64-422); Immunoglobulin E, Total <2 IU/mL (6-495); Immunoglobulin G, Qn, Serum 313 mg/dL (586-1602); Immunoglobulin M, Qn, Serum 27 mg/dL (26-217)
== END 2024-04-12 23:59 | disposition home or self-care (01) ==
LOC: HEMC 07:24
PROVIDERS: PCP Internal Medicine; Visit Provider Internal Medicine Hematology & Oncology
DX: C91.11 Chronic lymphocytic leukemia of B-cell type in remission (principal); D83.8 Other common variable immunodeficiencies; K91.2 Postsurgical malabsorption, not elsewhere classified; D50.9 Iron deficiency anemia, unspecified
CPT/HCPCS: 36415; 80053; 82728; 82784; 82785; 83540; 83550; 83615; 85025; G0463

== ENCOUNTER 2024-05-08 11:35 | Outpatient (OUT) | payer MEDICARE, MEDICAID, SELFPAY ==
[2024-05-08 12:22] LABS: Basophils Percent Auto 0.3 % (0.2-2.0); Eosinophils Absolute Auto 0.1 10^3/uL (0.0-0.7); Eosinophils Percent Auto 1.2 % (0.9-7.0); Hematocrit 42.8 % (36.0-48.0); Hemoglobin 14.1 g/dL (12.0-16.0); Immature Granulocytes Abs Auto 0.07 10^3/uL (0.00-0.03); Immature Granulocytes Pct Auto 0.6 % (0.0-0.5); Lymphocytes Percent Auto 26.4 % (20.5-60.0); Mean Corpuscular HGB Conc 32.9 g/dL (29.9-35.2); Mean Corpuscular Volume 91.1 fL (81.0-99.0); Monocytes Absolute Auto 0.7 10^3/uL (0.3-0.8); Monocytes Percent Auto 5.7 % (1.7-12.0); Neutrophils Absolute Auto 7.6 10^3/uL (1.4-6.5); Neutrophils Percent Auto 65.8 % (43.0-75.0); Platelet Count 167 10^3/uL (150-450); Red Cell Distribution Width 14.1 % (11.0-15.0); White Blood Count 11.5 10^3/uL (4.0-11.0)
[2024-05-08 12:42] LABS: Creatinine Urine Random 133.97 mg/dL (20.00-300.00); Microalbum Creatinine Ratio Ur 133.6 mg/g (0.0-29.9); Microalbumin Urine Random 17.9 mg/dL (<=30.0)
[2024-05-08 12:46] LABS: Estimated Average Glucose 157 mg/dL; Glycohemoglobin A1C 7.1 % (4.5-6.2)
[2024-05-08 12:47] LABS: Alanine Aminotransferase 36 U/L (14-59); Albumin Globulin Ratio 1.1; Albumin Level 3.1 g/dL (3.4-5.0); Alkaline Phosphatase 149 U/L (46-116); Anion Gap 15.4; Aspartate Amino Transferase 20 U/L (15-37); BUN Creatinine Ratio 17.5; Bilirubin Total 0.6 mg/dL (0.2-1.0); Calcium 8.9 mg/dL (8.5-10.1); Carbon Dioxide 22.4 mmol/L (21.0-32.0); Chloride 109 mmol/L (98-107); Chol HDL Ratio 2.7; Cholesterol 126 mg/dL (<=200); Estimated GFR (African America >60 (>=60); Estimated GFR (Non-African Ame 56 (>=60); Globulin 2.7 g/dL; Glucose 157 mg/dL (74-106); HDL Cholesterol 47 mg/dL (40-60); Potassium 3.8 mmol/L (3.5-5.1); Sodium 143 mmol/L (136-145); Total Protein 5.8 g/dL (6.4-8.2); Triglycerides 165 mg/dL (<=150)
== END 2024-05-08 11:36 | disposition home or self-care (01) ==
LOC: LAB 11:36
PROVIDERS: PCP Internal Medicine
DX: E78.2 Mixed hyperlipidemia (principal); N18.31 Chronic kidney disease, stage 3a; E11.22 Type 2 diabetes mellitus with diabetic chronic kidney disease; Z79.4 Long term (current) use of insulin; I48.0 Paroxysmal atrial fibrillation; I12.9 Hypertensive chronic kidney disease with stage 1 through stage 4 chronic kidney disease, or unspecified chronic kidney disease
CPT/HCPCS: 36415; 80053; 80061; 82043; 82570; 83036; 85025

== ENCOUNTER 2024-05-17 10:53 | Outpatient (OUT) | payer MEDICARE, MEDICAID, SELFPAY ==
--- OUTSIDE RECORDS SUMMARY | 2024-05-17 11:07 | XMS_ITS | CCD ---
Author Organization [facility] ion [facility] Care Team Providers Care Signal Helper Name Role Phone Lawanda Alvarez Unavailable Shaikh Sparks MD Primary Care Provider Demetrio Joseph Primary Care Provider [phone] Hood Patel Unavailable Shaikh Sparks MD Primary Care Provider [phone] MD Hood Patel Attending Provider MD Amy Sparks Primary Care Provider [phone] FAWWAD, WATERS H Consulting Unavailable FAWWAD, WATERS H Primary Care Unavailable FAWWAD, WATERS H Attending Unavailable FAWWAD, WATERS H Admitting Unavailable FAWWAD, WATERS H Consulting Unavailable FAWWAD, WATERS H Primary Care Unavailable FAWWAD, WATERS H Attending Unavailable FAWWAD, WATERS H Admitting Unavailable FAWWAD, WATERS H Primary Care Unavailable DR LJ BRENNAN Consulting Unavailabl cristy BRENNAN, DR LJ Persaud Attending Unavailyaneth BRENNAN, DR LJ Persaud Admitting Unavailabl e FAWWAD, [...] Admitting Unavailable MIKA, DR LJ Persaud Consulting Unavailabl e DEMETRIO JOSEPH Primary Care Unavailable MIKA, DR LJ Persaud [...] Unavailable FAWWAD, WATERS H Primary Care Unavailable JOSHUA, LAWANDA Attending Unavailable JOSHUA LAWANDA Admitting Unavailable Arianna, DR Owen Consulting Unavailable FAWWAD, WATERS H [...] FAWWAD, WATERS H Admitting Unavailable FAWWAD, WATERS Primary Care Physician SHAIKH SPARKS Attending Unavailable JOSEWWAD, WATERS Attending Unavailable TJ CURRY Attending Unavailabl e ALGHOTHANI, MOHAMAD Attending Unavailable ALGHOTHANI, MOHAMAD Attending Unavailable Orzech, Shante X Attending Unavailable CLARE, WATERS Referring Unavailable Orzech, Shante X Attending Unavailable Orzech, Shante X Admitting Unavailable Orzech, Shante X Attending Unavailable Orzech, Shante X Attending Unavailable Orzech, Shante X Admitting Unavailable Allergies Allergy Classification Reported Allergen(s) Allergy Type Date of Onset Reaction(s) Facility Acetaminophen / oxyCODONE (1 source) Acetaminophen / oxyCODONE; Translations: [acetaminophen-ox ycodone] Drug Allergy Sleep terror disorder (disorder) [facility] Anticholinergics (1 source) tiotropium; Translations: [tiotropium] Drug Allergy Pharyngeal swelling (finding), Tongue swelling (finding) [facility] Opioid Agonists (1 source) oxyCODONE; Translations: [oxycodone] Drug Allergy Sleep terror disorder (disorder) [facility] (12 sources) Acetaminophen / oxyCODONE; Translations: [acetaminophen-ox ycodone] Drug Allergy 6 Mental Status Change, Anaphylaxis, Sleep terror disorder (disorder) [facility] (7 sources) tiotropium; Translations: [tiotropium] Drug Allergy anaphylaxis, Pharyngeal swelling (finding), Tongue swelling (finding) [facility] (7 sources) Budesonide / formoterol Drug Allergy 2 Other: See Comments [facility] (7 sources) tiotropium Drug Allergy [address] [facility] (7 sources) oxyCODONE; Translations: [Oxycodone] Drug Allergy 9 Sleep terror disorder (disorder) [place] (3 sources) Acetaminophen / oxyCODONE; Translations: [Percocet] Drug Allergy 5 [facility] (1 source) Acetaminophen / oxyCODONE; Translations: [OXYCODONE-ACETAM INOPHEN] Drug Allergy 5 [facility] Repository Medications Current Medications Medication Drug [...] 26, 2019 1:07pm take 1 capsule by [facility] once daily, then take 1 capsule by mouth every twenty-four hours dilTIAZem CD (CARDIZEM CD) 240 mg 24 hr capsule Take 240 mg by mouth once daily. 0 Active Comment on above: Take 240 mg by mouth once daily. 0.5 ml dulaglutide 3 mg/ml auto-injector (8 sources) GLP-1 Receptor Agonist Start: 02-29-2024 Trulicity [...] 2018 10:17am take 1 capsule by [facility] every twenty-four hours Gabapentin 300 MG [...] Comment on above: [facility] oxybutynin chloride 5 mg [...] Active trospium chloride 20 mg oral tablet (4 sources) Cholinergic Muscarinic Antagonist Start: 05-09-2024 End: 05-04-2025 take 1 tablet by mouth twice daily trospium 20 mg oral tablet 20 mg = 1 tab(s), Oral, BID, X 90 day(s), # 180 tab(s), Refills(s) 3, Pharmacy: [facility]/pharmacy #[id number], 155, cm, 05/09/24 9:05:00 EDT, Height/Length Dosing, 66.5, kg, 05/09/24 9:05:00 EDT, Weight Dosing Start Date: 05/09/24 Stop Date: 05/04/25 Status: Ordered Start: 02-29-2024 take 1 tablet by ruy twice daily trospium 20 mg oral tablet 20 mg = 1 tab(s), Oral, BID, # 60 tab(s), Refills(s) 2, Pharmacy: [facility]/pharmacy #[id number], 155, cm, 02/29/24 10:38:00 EDT, Height/Length [...] on above: Take 1,000 mcg by [facility] once daily. Completed/Discontinued Medications Medication Drug Class(es) Dates Sig (Normalized) Sig (Original) atorvastatin 20 mg oral tablet (4 sources) HMG-CoA Reductase Inhibitor Start: 02-29-2024 atorvastatin 20 mg Tab 90 EA, 0 Refill(s), TAKE 1 TABLET BY MOUTH EVERY DAY IN THE MORNING, Refills(s) 0 Start Date: 02/29/24 Status: Ordered dapagliflozin 10 mg oral tablet (4 sources) Sodium-Glucose Cotransporter 2 Inhibitor Start: 02-29-2024 Farxiga 10 mg oral tablet 30 EA, 0 Refill(s), TAKE 1 TABLET BY MOUTH EVERY DAY, Refills(s) 0 Start Date: 02/29/24 Status: Ordered DilTIAZem (Eqv-Cardizem CD) 240 mg/24 hours oral capsule, extended release (4 sources) Start: 02-29-2024 DilTIAZem (Eqv-Cardizem CD) 240 mg/24 hours oral capsule, extended release 90 EA, 0 Refill(s), TAKE 1 CAPSULE BY MOUTH EVERY DAY, Refills(s) 0 Start Date: 02/29/24 Status: Ordered glipiZIDE 5 mg oral tablet (4 sources) Sulfonylurea Start: 02-29-2024 take 1 tablet [...] insulin, regular, human 30 unt/ml pen injector (19 sources) Insulin Start: 02-29-2024 inject 15 [IU] [...] daily Not-Taking lisinopril 10 mg oral tablet (16 sources) Angiotensin Converting Enzyme Inhibitor Start: 02-29-2024 lisinopril 10 mg Tab 10 mg = 1 tab(s), Oral, Daily, 90 EA, 0 Refill(s), TAKE 1 TABLET BY MOUTH EVERY DAY, Refills(s) 0 Start Date: 02/29/24 Status: Ordered Start: 08-30-2022 take 10 mg by mouth once daily [...] daily. metoprolol tartrate 50 mg oral tablet (12 sources) beta-Adrenergic Manuela Start: 02-29-2024 Metoprolol tartrate [...] pantoprazole 40 mg delayed release oral tablet (15 sources) Proton Pump Inhibitor Start: Pantoprazole 40 [...] daily. traZODone hydrochloride 50 mg oral tablet (15 sources) Serotonin Reuptake Inhibitor Start: 02-29-2024 traZODONE [...] kidney failure, unspecified] 09-26-2018 Episodic Cardiac dysrhythmias (14 sources) Atrial fibrillation; Translations: [Unspecified atrial fibrillation] Onset: 2 05-12-2022 Chronic Chronic kidney disease (5 sources) Chronic kidney disease stage 3; Translations: [...] Onset: 2 Chronic Deficiency and other anemia (16 sources) Iron deficiency anemia due to blood loss; Translations: [Iron deficiency anemia secondary to blood loss (chronic)] Onset: 2 Chronic Deficiency and other anemia (5 sources) Anemia due to chronic blood loss; [...] 2 01-24-2019 Chronic Diabetes mellitus without complication (14 sources) Type 2 diabetes mellitus without complication; Translations: [Diabetes mellitus without mention of complication, type II or unspecified type, not stated as uncontrolled] Onset: 1 Chronic Diabetes mellitus without complication (8 sources) Acute hyperglycemia; Translations: [Hyperglycemia, unspecified] Onset: 4 03-02-2019 Episodic Diseases of white blood cells (1 source) Leukocytosis; Translations: [Elevated white blood cell count, unspecified] 05-02-2019 Chronic Disorders of lipid metabolism (12 sources) Mixed hyperlipidemia; Translations: [Mixed hyperlipidemia] Onset: 1 01-24-2019 Chronic Esophageal disorders (6 sources) Gastroesophageal reflux disease; Translations: [Gastro-esophageal reflux disease without esophagitis] Onset: 2 03-17-2019 Chronic Essential hypertension (6 sources) Hypertensive disorder; Translations: [Essential (primary) hypertension] Onset: 2 01-24-2019 Chronic Fluid and electrolyte disorders (3 sources) Metabolic acidosis; Translations: [Acidosis] 03-16-2019 Episodic Genitourinary symptoms and ill-defined conditions (12 sources) Mixed incontinence; Translations: [Female stress incontinence] Onset: 4 Chronic Genitourinary symptoms and ill-defined conditions (15 sources) Nocturia; Translations: [Nocturia] Onset: 4 Episodic Hypertension with complications and secondary hypertension (1 source) Hypertensive heart disease with heart failure; Translations: [HTN HEART DISEASE W/HEART FAIL] Onset: 2 Chronic Leukemias (11 sources) Chronic lymphoid leukemia, disease; Translations: [Chronic [...] [Hypotension, unspecified] 03-14-2019 Episodic Other circulatory disease (5 sources) History of cerebrovascular accident; Translations: [Personal history of transient ischemic attack (TIA), and cerebral infarction without residual deficits] 03-17-2019 Episodic Other diseases of bladder and urethra (2 sources) Detrusor overactivity; Translations: [Overactive bladder] Onset: 4 Chronic Other diseases of bladder and urethra (2 sources) Overactive bladder 04-04-2024 Chronic Other diseases of bladder and urethra (3 sources) Urethral stricture; Translations: [Unspecified urethral stricture, female] Onset: 4 03-05-2024 Episodic Other gastrointestinal disorders (1 source) Swallowing painful; Translations: [Dysphagia, unspecified] 05-02-2019 Episodic Other gastrointestinal disorders (1 source) Diarrhea; Translations: [Diarrhea, unspecified] 03-14-2019 Episodic Other hereditary and degenerative nervous system conditions (2 sources) Impaired cognition; Translations: [Mild cognitive impairment, so stated] Chronic Other hereditary and degenerative nervous system conditions (5 sources) Restless legs; Translations: [Restless legs syndrome] [...] Translations: [Other pericardial effusion (noninflammatory)] Onset: 4 Unclassified (2 sources) Asymptomatic microscopic hematuria 05-09-2024 Past or Other Problems Problem Classification Problem [...] 12-22-2021 Episodic Other aftercare (1 source) terminal system operator (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 insulin; Translations: [USP CURRENT USE OF INSULIN] Onset: 01-28-2022 Episodic Other aftercare (1 source) Other superintendent marine oil terminal (current) drug therapy; Translations: [OTH PROFESSOR OF MUSICOLOGY CURRENT DRUG THERAPY] Onset: 12-24-2021 Episodic Other aftercare (1 source) terminal system operator (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 oral hypoglycemic drugs; Translations: [PROFESSOR OF MUSICOLOGY USE ORAL HYPOGLYCEMIC DX] Onset: 12-24-2021 Episodic Other aftercare (1 source) [facility] (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 anticoagulants; Translations: [USP CURRNT USE ANTICOAGULANTS] Onset: 12-24-2021 Episodic Other [...] Test Name Value Interpretation Reference Range Facility C Urineon 05-11-2024 Bacteria identified Cx Nom (U) Microbiology PROCEDURE: Urine Culture [R1] SOURCE: U CleanCatch BODY SITE: COLLECTED DATE/TIME: 05/09/2024 09:55 EDT RECEIVED DATE/TIME: 05/09/2024 18:41 EDT START DATE/TIME: 05/09/2024 18:41 EDT FREE TEXT SOURCE: Oreileen OFFSHORING MANAGER, SKIP OPERATOR-C, Orzeyovani OFFSHORING MANAGER, SKIP OPERATOR-C, Shante X Shante X FINAL REPORTS Final Report [] Verified Date/Time: 05/11/2024 12:26 EDT >100,000 cfu/ml Escherichia coli SUSCEPTIBILITY RESULTS LEGEND: S=Susceptible, N/R=Not Reported, Blank=Data not available, or drug not advisable or tested, I=Intermediate, ESBL=Extended spectrum beta-lactamase, R=Resistant, TFG=Thymidine-depende nt strain, HAIDER=Beta-lactamase positive, ESPERANZA=mcg/m;(mg/L), S*=Predicted susceptible interp, R*=Predicted resistant interp EC Antibiotic ESPERANZA Dilutn ESPERANZA Interp Ampicillin >16 R Ampicillin/ <=8/4 S Sulbactam Aztreonam <=4 S Cefazolin <=2 S Cefepime <=2 S Ceftazidime <=1 S Ceftazidime/ <=8 S Avibactam Ceftriaxone <=1 S Cefuroxime <=4 S Ciprofloxacin <=0.25 S Ertapenem <=0.5 S Gentamicin >8 R Levofloxacin <=0.5 S Meropenem <=1 S Nitrofurantoin <=32 S Piperacillin/ <=8 S Tazobactam Tetracycline <=4 S Tobramycin 4 S Trimethoprim/ >2/38 R Sulfa Performing Locations R1: This test was performed at: [facility], [address] [place] [address], [address] , , Normal [facility] Comment on above: Performed By: #### [id number] #### [facility] [address] [place] [address] Ambulatory Visit Summaryon 0 05-09-2024 Ambulatory Visit Summary Ambulatory Visit Summary ROBINA RON :1950 Visit Date:05/09/2024 Ambulatory Visit Instructions Your Diagnosis OAB (overactive bladder) Mixed incontinence Asymptomatic microscopic hematuria Nocturia Unspecified urethral stricture, female Glucosuria Proteinuria Your Care Team Attending Physician - AMALIA Shukla APRN, Shante Bonilla Primary Care Physician - CLARE BUSTAMANTE, This Is Your Medications List trospium (trospium 20 mg oral tablet) Contact prescribing physician if questions or concerns [...] Tab) metoprolol (Metoprolol tartrate 50 mg Tab) pantoprazole (Pantoprazole [address] Tab) trazodone (traZODONE 50 mg Tab) [Image Removed: STOP]Stop taking these medications oxybutynin (oxybutynin 5 mg Tab) Procedures Performed Colonoscopy (2020), Cystourethroscopy with dilation of urethral stricture (04/22/2017), Back, Cataract, Cholecystectomy, Hysterectomy, Tonsillectomy. Discharge Vitals Heart Rate (Peripheral) 90 Blood Pressure 109/72 Height 155 cm Height 61 in Weight 66.5 kg Weight 146.3 lb BMI 27.68 What to do next You Need to Schedule the Following Appointments Follow Up with Gayla BARRIENTOS, AMALIA, Shante X, FAM, URL When: Comments: 6 months Where: Medications What How Much When Why Instructions New trospium (trospium 20 mg oral tablet) 1 Tablets By Mouth 2 times a day OAB (overactive bladder) Duration: 90 Days Refills: 3 Pickup at [facility]/pharmacy #[id number] Unchanged atorvastatin (atorvastatin 20 mg Tab) 90 [...] concerns Unchanged lisinopril (lisinopril 10 mg Tab) 1 Tablets By Mouth Every day 90 EA, 0 Refill(s), TAKE 1 TABLET [...] Contact prescribing physician if questions or concerns Pharmacy Information [facility]/pharmacy #[id number]: [address], [place] [id number] [phone] What How Much When Comments Stop Taking oxybutynin (oxybutynin 5 mg Tab) 1 Tablets By Mouth 2 times a day as needed for for urinary discomfort Allergies Percocet (Night terrors) Spiriva (Throat swelling, Tongue swelling) oxyCODONE (Night terrors) Problems Ongoing - Any problem that you are currently receiving treatment for. Anemia due to chronic blood loss Asymptomatic microscopic hematuria CLL (chronic lymphocytic leukemia) Female stress incontinence GERD without esophagitis Glucosuria Glycosuria History of CVA (cerebrovascular accident) Iron deficiency anemia due to chronic blood loss Mixed hyperlipidemia Mixed incontinence Nocturia OAB (overactive bladder) PAF (paroxysmal atrial fibrillation) Postural urinary incontinence Primary hypertension Proteinuria Restless leg syndrome Stage 3 chronic kidney disease Type 2 diabetes mellitus with diabetic autonomic (poly)neuropathy Type 2 diabetes mellitus with stage 3a chronic kidney disease, with long-term current use of insulin Unspecifie (more content not included)... Normal [facility] Reminderson 05-09-2024 Reminders Reminders From: Anushka Carroll To: EU - Administrative; Sent: 05/09/2024 10:23:22 EDT Show up: 08/13/2024 10:23:00 EST Subject: Ambulatory Reminder Due Date/Time: 10/23/2024 10:22:00 EST Reminder/Recall Patient needs scheduled with AO for a 6 month f/u, due back mid October 2024 Normal [facility] Urology Office/Clinic Noteon 05-09-2024 Urology Office/Clinic Note Urology Office/Clinic Note Chief Complaint 6-8 wk f/u w/ PVR HPI Staff 6-8 wk with PVR. PVR __ cc (43). Previous DX: OAB, mixed incontinence, frequency, stress incontinence, nocturia, glucosuria, urethral stricture, bacteriuria, proteinuria. S/p cysto/UD 01/09/19 by ELHAM. *Started Trospium 20 mg bid at prior OV. Prior OV: UA today with large blood, positive nitrite, trace leuks. Sent for ucx which showed 50k E. coli and 1k mixed skin. Was not treated since pt was asx. pt states she is doing much better since starting trospium Dysuria: denies Incomplete bladder emptying: denies: _ Frequency: q2-3 hrs Urgency: not often Nocturia: 1x Stream: strong Leaking: at times Post void dripping: denies Wearing pads/ Depends: depends Urge incontinence: at times Stress incontinence: _at times, sneezing, coughing Incontinence without Sensory Awareness: getting alot better Abdominal pain: denies Flank pain: arthiritis Sexual complaints: _ History of Present Illness I have reviewed and verified the staff HPI to be accurate for this encounter. Portions of this record may have been created with voice recognition artificial intelligence software, specifically [email or web address], [employer] and or tok tok tok. Substitutions may have occurred due to the inherent limitations of voice recognition and artificial intelligence software. Review of Systems PHQ Score Initial Depression Screen Score: 0 SCORE Physical Exam Vitals & Measurements HR: 90(Peripheral) BP: 109/72 HT: 61 in HT: 155 cm WT: 66.5 kg WT: 146.3 lb BMI: 27.68 General: Well developed, well nourished, in no acute distress. Assessment/Plan BBS 18 (23) 1. OAB (overactive bladder) (N32.81: Overactive bladder) Failed oxybutynin in the distant past. Started trospium 20 mg BID at prior OV. Tolerating well without side effects. PVR today 0 Patient has noticed significant improvement since starting medication. She is able to go 2+ hours between voids, urgency is improved, improved nocturia, going through only 2 briefs daily as opposed to 4-6 previously. We did discuss increasing dose to 60 mg daily. However, patient opts to continue current dosage. -Continue trospium 20 mg twice daily. Rx sent to pharmacy. -Patient prefers to follow-up in 6 months for recheck. Ordered: trospium, 20 mg = 1 tab(s), Oral, BID, # 60 tab(s), Refills(s) 2, [id number], cm, 02/29/24 10:38:00 EDT, Height/Length Dosing, 66.5, kg, 02/29/24 10:38:00 EDT, Weight Dosing trospium, 20 mg = 1 tab(s), Oral, BID, X 90 day(s), # 180 tab(s), Refills(s) 3, [id number], 155, cm, 05/09/24 9:05:00 EDT, Height/Length Dosing, 66.5, kg, 05/09/24 9:05:00 EDT, Weight Dosing 23497 Measure Post Void residual urine and/or bladder capacity by US- non-imaging Urine Culture Urnls Dip Stick Auto w/o Microscopy POC 14161 2. Mixed incontinence (N39.46: Mixed incontinence) UUI >>> LEW See #1 Ordered: 67034 Measure Post Void residual urine and/or bladder capacity by US- non-imaging Urine Culture Urnls Dip Stick Auto w/o Microscopy POC 58469 3. Asymptomatic microscopic hematuria (R31.21: Asymptomatic microscopic hematuria) UA today with small blood. However, does have positive nitrites. Patient is asymptomatic at this time. Denies any episode of gross hematuria. Although patient is not symptomatic of infection at this time, would advise to culture urine, treat infection and reassess UA. -Send urine for culture, treat if positive -Have patient repeat urine drop-off 6 weeks after completion of treatment. If no microscopic blood on UA, no need for further workup. If microscopic blood on repeat UA, sent for micro/culture. Ordered: Urine Culture 4. Nocturia (R35.1: Nocturia) Improved to 2 times per night Ordered: 97914 Measure Post Void residual urine and/or bladder capacity by US- non-imaging Urine Culture Urnls Dip Stick Auto w/o Microscopy POC 58949 5. Unspecified urethral stricture, female (N35.92: Unspecified urethral stricture, female) s/p cystoscopy/UD 01/09/2019 by ELHAM [1] Ordered: 55299 Measure Post Void residual urine and/or bladder capacity by US- non-imaging Urine Culture Urnls Dip Stick Auto w/o Microscopy POC 28193 6. Glucosuria (R81: Glycosuria) 3+ on UA today Insulin-dependent DM, follow with PCP for tight control 7. Proteinuria (R80.9: Proteinuria, unspecified) 2+ on UA today CKD stage III, continue to follow with PCP regarding this Follow-up With When Contact Information AMALIA Shukla APRN, Shante Bonilla, FAM, URL Additional Instructions: 6 months Patient Education Urinary Incontinence Overactive Bladder, Adult Problem List/Past Medical History Ongoing Anemia due to chronic blood loss Asymptomatic microscopic hematuria CLL (chronic lymphocytic leukemia) Female stress incontinence GERD without esophagitis Glucosuria Glycosuria History of CVA (cerebrovascular (more content not included)... Normal [facility] Comment on above: Result Comment: Elec tronically Signed By: AMALIA Shukla APRN, Shante Bonilla\.br\Date and Time Signed: 05/09/24 10:01 EDT 36on 04-11-[address] Wade reviewed patient's echo from 04/05/2024 and said it was ok. Spoke with patient and made her aware. She was unable to schedule Oct follow up because she didn't have her son's schedule with her. I advised she would get a phone call in May to schedule an apt for Oct. She verbalized understanding. Normal [facility] Office Visiton 03-14-2024 Follow-up visit [id number] Robina Ron 1950 F Date Provider Department Center 03/14/2024 [facility]8-EDD WADE JOHNATHON Zaragoza Family History Problem Relation Age of Onset Pulmonary embolism Father Family Status - Relation Status Age at Father Level of Service:15193 NM OFFICE/OUTPATIENT ESTABLISHED MOD MDM 30 MIN [facility] Coding Summary.on 03-07-2024 Coding Summary. IVDEAchg17XPo9uIp+PG h lYWQ+DV4TWNOhU87gkPYy yF1gN8CLBRbYGhkpUPBVO AyXRcOpysFdDW7lgAFwIT Ju IC8+ZW0dEUWyNcrdpQCef 5Z8hKF1A58sgs4mEDenbM C3YJYvBfZyokykk5yooXk 6IDcuNmluOyBt EACxjU36OML3oL42Bz37j SXqvDKvh3eyhMy3WpLhGZ OxZPG3mBnnDFzun4FgFAA nR96omCEhe7D3 SUOzuMascNOwAwWwuPE4r F0kFZmomqoxu7teltllPu s7go69mJDku0M3cDW3X7G umpM8ZDVcrFXz DxutkOXNqV5bddejj6aen vgvDpMpXXLoCMy7MDa9QQ FrzWwjGyScPN64FSE0XCN hmdCeL0CfPEEi uMglKdU6b7Q1Ac4MC2GUK aifQ2LNXFJPYOdcnDI+PC 71as37I6EwMsslYyz8BPS lPRM7nTU6pU7l KCRiZZujh5B2tXY4G9Clo oWrje0rk3gmJOCfMVklX2 3lzOEpl8G2KZZciPJ9PJD snGycNrZwrY58 Oyc+JARgxEpjf3InEtzlb 4ham9yhiJm1WyzsPEFyff AijSbfVBS7j4BrXv0lIRS kgGV0kBF7mK2a GbCeXaL2YEsrA028UnUcn ZWsMdznL61cT3PhrRA+PH QiXwc4LXYpyJczQL5aU2Y hZGRpbmctbGVm cWztRU2eRVRoslszJBUyj J6wLLYxX8f3IsJoWmN5RL bhK1ZyHRZuahwhMc05yA6 uGzYaAeX1IQln N0AefdG0IRHzjUHePBnjF II0I24dw7K0NPEpSFQaDO W6cTE4aW5mnZnrdhskuXZ mdDsgdmVydGlj UMfiBTgoR885ICKxfIqyN kNvZGluZyBEYXRlOiAgMD YvMjUvMjAyNDwvdGQ+PHR kOVC0cWmdCASe yUUrOYznNq7opNbasBbmN B1fNIDweokmZEEbeU0wNQ LzwEXvoKitUL3hQPCnywk sh245HpXsDEK7 FRNhlZMuI2ZjdZ4mDdDlC ZPlLWNtD8QayRRjOAopZ0 22PYadZcW8JWTmxvNmS1U sLWFsaWduOiB0 b9H3Mq3Xw8DrsavnW6Vlj BReUhWeGqtfHDt2U5JgBm wvdHI+QR60DOTmGT06VKl 1EFF1cFqgJWag LUIvM4LxnI9yKwGwRTVxK GRkOyc+PHRhYmxlIHdpZH RoPScxMDAlJyBzdHlsZT0 zQq8vYLYoZAUm ySrsfTCwIkNut9hwMDVeH GegXS9aaMayG3JjoDZ7TX Qyr7k3Lu85P79mY7McuKG +HWDxoVH6dYK9 jT5fPkNfVkX8DLpwT291K pUytMJxWygmm3ouo6hszY u3MmP2XGWttmXdqKujUAT 0c3TvSz60G98i IHdpZHRoPSIxNSUiIHZhb Ueksx8xqC3rEy9+PGNvbC L5xRF1tT8kAzPiDqJ1FKq xX761ZbLctPZv Jwzjm9hwj5nteHv6JsJdG WIhbeStuCsoBWQ8n9JzXr 56R2RxdRlxn7AhKcw6ua9 2iDGqo5X6oSQ0 K8JzSQSvarmtyUKmdAzuX T7cSITxqllzENHrmH4vJS JbT5u1LzKsWxV1QSuxD9R ahhU4FFOxfIUz AAKvsLIRqS6ojnihe3wqq jqgXgYxYCBrJDg6YIz7VX LzfIhjMvOjJZT0RvA3MNC 0hCDrqA8zhAmm amgvsF2fDvr+KFT1eLUra OPPGG7oOyaueZU+PHRkIH G4nBqaOKaePBHsvQ6rSTU gO1g8GrYvNzJ7 ZImhV9RnvgU6XLXdqWChQ UHvmHJZtN5scuqlp6kzcs uqLpWrXZOvBHh9FUk7UVB saWduOiBsZWZ0 MzR3VSA8ePZlpE5mpJjve hpvdZ2yLqj+QmlydGggRG B2KGo5E3XaNgw5YZOjsUj kJX9vrVEpQXhu Eg0hsIwvbUupKM4qFZUhc ksxr221YgXcn7xyIHVnoE IfJDsvHCK7Y95lr0B5PYN sRINbJPU9fMR0 mE3sjEegrdebcAAjbHkco oBwdBekLXkvTFefJ226EY HcfWurNmDkTEc9O5JsAzr 3LVCxdTvfZM1i tKXfHWceNt4zmPofyMdcM P1qUQUtecddi412PwTpk7 ejJKKwaKKbQXuqPKR4R80 cc9J0UTBkTWPr NVW0jMJ1dX3acSqituhzp GVmdDsgdmVydGljYWwtYW cpX343NQAplUtiKyUjbUx 7I9QmGob5XLFh fYgqGB1teTXkBUohDv3fz YpuzDdaRI4sBLKvxhgif0 84InGxh6uePBUkuGZbJDu eGMT4K30bw8S3 YNPrIIQhVWN0hTA2zI8cg GlnbjogbGVmdDsgdmVydG gaCQpxNPxyK942ZJSrdUt nPlBhdGllbnQg NRksNOi4H0NrOvqrdSR+P C37DLPgLS97dYLumNMpf0 ervQi2GaQpAIYkIIX4pIm hSTbgl2VuUHJh X61rdAKtl5S8KXAfpVdyr HJoThDzbGW2pX9bQLvxnq sos1cvojwzWsyon6bbsi2 2tY60B89cCHkf ZHRoPSIzMCUiIHZhbGlnb w2xuU0iBx0+IFOuwPU6gV Z8tR9bRPQpHuD0PKlxN37 9InRvcCIvPjxj a9syg5udlGw8YtW3UJNjj qMohRupDUX8x2OxNk16H7 9sIHdpZHRoPSIyMCUiIHZ taWbwey1kpD0p Ii8+NZNxaYC8kAV1xX3iT bAhRpI8JYdnW749VuXmyV DjEiinI52eS2FcuBT+PHR cVga7HVDhlYef VP6fmEHjLUjcWz1eIVP2R kQtHoYcWCayF3MfXMXbvk cyksfemTA2ZXAyQWLisM3 2Dq3frNjpDBHl lXJNaH3obrqaa6xjdircD cLwKPXjIRo5TTe2QMXzoW lnAeDkUPW1OoC3PJA4dST mhS0ukGcxiafg aS9pM5FyQNVwyxbfPi80o G7xSfNpJwU1HHbrUsa+TE LLDQxhY1ZSKMdXEJ9tNRw vdGQ+PHRkIHN0 iGruVMhjYCCubF6tWGCcV 6s5PzDxQoU5KWlbI8EwKK EbltheZw75wS8hBrCvFhJ 8QAjcA3HpglF5 CXYmnEZcIWkxKNA0K91ge 4B5AAPsGFWuBRO8lCN1mD 1hbGlnbjogbGVmdDsgdmV ydGljYWwtYWxp I931IUEvrCdsZyVzTgMyF yO5ADM9P6XwVgv2IPCisG hcPD5ljPRmGCxrBx2zpDb ysYlhIM1oBAIu puovJSDpsH9mEAJjoMJbm HgkBN6ySDNdhognz008Td TlONO9XUUxiFLuM2EsfR3 yOiAjMDAwMDAw N4ZkwFHvNGngG200FFxcY gP7FFVcgxTxK0DbHOGwwM uiVhY1j9Z4Di52PeHEYVB yczwvdGQ+PHRk YBI8cHyjMYiiDWUbiE5dP MJcX4w8JiDfAuE2LQmdU7 TbQGPthzbbHu79eA1lYkJ gNeL4YFxfQ2Jv hkI8ONHgjSQrXDlbBWH2B 69ma9N7JVPwVBWdSHV0lH B0qG1usFehdwvnoRBeoUm gdmVydGljYWwt YWudJ068WNMukPvoVqFxr WFsZTwvdGQ+QRVvWSX7nI omDEtcOMIdsZ6sNMKyK3k 0BpAbZyC0HIuz M4LsKIAarjpkDp85iU7bF vBzZcV1NUkbI6BszgK9VE WczQYpFNzcVXK3I01rr8U 4XJHeEDEjCFT2 lTG7qJ5usFkfuplvzZGjp DsgdmVydGljYWwtYWxpZ2 50PWQmaZobNfreLkGZvh2 fPY9eEgucyPJ+ DX18ve74P0ZoItanIhw4X QYeAAA0cOM8pV8uWNHgJH wbl3C0dVZ9O8CfghVrho7 wp6geKIIaIFiw K90vqEQpx5O5SBStrJO2U YVlkQmeGwXptO30Vth+PG LgpSvwz2RqKsvff5cwp9r hrZb7NrKsZTLd mjMktHkwCGW3v6GkUc78Z 29sIHdpZHRoPSIzMCUiIH XsdTckgl4laW8iLg5+PGN yzHP2jOC2dF1q WvLkXkI6TDhwB538KiBdg RQbTlnon2sym9tulGj3Pb LsVDWodnWamSdoLUX6d2M lCa56S8DpsSwr h3EvNgi3hn97dHSog6D8g KN4A3DeWQIrgtxanKQegG taEG1cBPFlxobmZBCqxE8 fEVXxI1k9IdYl HtT5AFldH8VhpeH0KSGkm WExDNSkjFKQtV4gyenve5 dsmwwsQtWnQCCtGWh0OKp 0LWFsaWduOiBs IRZ3AvS5VWY9nPMgcK5vm PxhwkjxnK6aHbr+UGh5c2 qptKXaUY7toSS3IF58OM6 8wKUbp8L7mXE3 G3UzKVTkeoqkevvsnMT0J XZwWJOstF19Xy0vuEqgVf 5tSMUeNKJ9EKIpqFEiR0D bjY4vQzWcTCFx APUuY0FsyDTsJTaxR820Y SohEgU4SAAvuuMvY4NeMK JeeFnzJhH4d3X8Xz8ZSR4 4KF62QU71eGXt u3K2mRW1C9MsJVVrtrvub mjdcLG3ERLcBPYrwX86Lx 5nyOxtKg4iFNFkSQS5DXO trIMqG2SifL4k GmFgAASiYAWqJ3XxaZRpX MhvH473ETfkSmC8OWWmqs FtW0CuYJPltWheGyO8z0H 2Fa4NHp39IN98 SI66xHRhi1P2uJR5H7ErQ RNkoqedjrriiGS1HTJpVB OkvZ47Hr4mgLioCs0eWGY zGDO2AHSxjCOp B8IbeE0nGaWzEMZnTDIqT 7LpaNFpGBanS175TJzfFs A6UXCrpgItG3RwOPCsmWm xLeG3u3F2Db8C JZmfdnd8T3GfLhwgsYD+P E19ZEHpHZ53zVUwsVAqc9 exsIt0QmLbFGTsSET8fSa eBLzpa3RsFLSv U10udAPoh3Q3T (more content not included)... Normal [facility] Patient Educationon 03-05-20 Patient Education Obstetrics and [...] health care provider. General instructions ? Take pfcw-khp-bxnemcp and prescription medicines only as told by [...] monitor yo (more content not included)... Normal [facility] C Urineon 03-02-2024 Bacteria identified Cx Nom [...] Locations R1: This test was performed at: [facility], [address] [place] [address], [facility]- , , [facility] Comment on above: Performed By: #### 2 [id number] #### [facility] [address] [place] [address] Physician Referralon 024 Physician Referral [id number] [phone] [id number]#1. 00TIFF Normal [facility] Screenson 03-01-2024 Screens [id number] 1.00TIFF Normal [facility] Ambulatory Visit Summaryon 0 02-29-2024 Ambulatory Visit [...] for choosing us for your care. Normal [facility] GLYCOHEMOGLOBIN A1Con 2021 ADA RECOMMENDATION SEE BELOW Normal [facility] Comment on above: Result Comment: ADA RECOMMENDED LIMIT 4.0 - 6.0 ADA THERAPEUTIC TARGET < 7.0 ACTION SUGGESTED > 7.0 Performed By: #### A 1C #### [facility] [address] [address] [address] Julisa Lowe Glucose [Mass/Vol] 235 mg/dL Normal [facility] Comment on above: Performed By: #### A 1C #### [facility] [address] [address] [address] Julisa Lowe HbA1c (Bld) [Mass fraction] 9.8 % Critically high 4.5-6.2 [facility] Comment on above: Performed By: #### A 1C #### [facility] [address] [place] [address] Dr. Julisa Lowe PROF CHEM 8 (BAS METB)on Anion gap [Moles/Vol] 17.7 mmol/L Normal [facility] Comment on above: Performed By: #### B MP #### [facility] [address] [place] [address] Dr. Julisa Lowe Calcium [Mass/Vol] 9.3 mg/dL Normal 8.5-10.1 [facility] Comment on above: Performed By: #### B MP #### [facility] [address] [place] [address] Dr. Julisa Lowe Chloride [Moles/Vol] 107 mmol/L Normal 98-107 [facility] Comment on above: Performed By: #### B MP #### [facility] [address] [place] [address] Dr. Julisa Lowe CO2 [Moles/Vol] 24.3 mmol/L Normal 21.0-32.0 [facility] Comment on above: Performed By: #### B MP #### [facility] [address] [place] [address] Dr. Julisa Lowe Creatinine [Mass/Vol] 0.90 mg/dL Normal 0.55-1.02 [facility] Comment on above: Performed By: #### B MP #### [facility] [address] [place] [address] Dr. Julisa Lowe EGFR-AF POLISH >60 Normal >=60 [facility] Comment on above: Performed By: #### B MP #### [facility] [address] [place] [address] Dr. Julisa Lowe EGFR-NON AF POLISH >60 Normal >=60 [facility] Comment on above: Performed By: #### B MP #### [facility] [address] [place] [address] Dr. Julisa Lowe Glucose [Mass/Vol] 196 mg/dL Critically high 74-106 T [facility] Comment on above: Performed By: #### B MP #### [facility] [address] [address] [address] Julisa Lowe Potassium [Moles/Vol] 5.0 mmol/L Normal 3.5-5.1 [facility] Comment on above: Performed By: #### B MP #### [facility] [address] [address] [address] Julisa Lowe Sodium [Moles/Vol] 144 mmol/L Normal 136-145 [facility] Comment on above: Performed By: #### B MP #### [facility] [address] [address] [address] Julisa Lowe Urea nitrogen [Mass/Vol] 33.0 mg/dL Critically high 7.0-18.0 [facility] Comment on above: Performed By: #### B MP #### [facility] [address] [address] [address] Julisa Lowe Urea nitrogen/Creatinine [Mass ratio] 36.7 mg/mg Normal [facility] Comment on above: Performed By: #### B MP #### [facility] [address] [address] [address] Julisa Lowe Basophils Auto (Bld) [#/Vol] Ordered By: Hood Patel on 05-12-2022 Basophils (Bld) [#/Vol] 0.1 10*3/uL 0.0-0.2 [place] Basophils/100 WBC Auto (Bld) Ordered By: Hood Patel on 05-12-2022 Basophils/100 WBC (Bld) 0.7 % . [place] Blood hemoglobin measurement (mass/volume)Ordered By: Hood Patel on 05-12-2022 Hemoglobin (Bld) [Mass/Vol] 11.8 g/dL 11.8-15.4 [place] Blood leukocytes automated c ount (number/volume)Ordered By: Hood Patel on 05-12-2022 WBC (Bld) [#/Vol] 7.6 10*3/uL 4.5-11.[address] [facility] [address] biopsyOrdered By: Merna Patel on 05-12-2022 Transferrin [Mass/Vol] 206 mg/dL 180-380 [facility] Complete Blood Count Auto Di ffon 05-12-2022 Basophils (Bld) [#/Vol] 0.1 10*3/uL Normal 0.0-0.2 [place] Comment on above: Result Comment: PERF ORMED BY: [place] [address] PATHOLOGIST [employer] JENY DODGE M.D. Performed By: #### F E and TIBC, KATHY, [id number], CBC #### [address] Basophils/100 WBC (Bld) 0.7 % Normal . [place] Comment on above: Performed By: #### F E and TIBC, KATHY, [id number], CBC #### [address] Eosinophils (Bld) [#/Vol] 0.1 10*3/uL Normal 0.0-0.45 [place] Comment on above: Performed By: #### F E and TIBC, KATHY, [id number], CBC #### [address] Eosinophils/100 WBC (Bld) 1.6 % Normal . [place] Comment on above: Performed By: #### F E and TIBC, KATHY, [id number], CBC #### [address] Erythrocyte distribution width (RBC) [Ratio] 27.8 % High 11.9-15.3 [place] Comment on above: Performed By: #### F E and TIBC, KATHY, [id number], CBC #### [address] Hematocrit (Bld) [Volume fraction] 37.5 % Normal 34.0-46.4 [place] Comment on above: Performed By: #### F E and TIBC, KATHY, [id number], CBC #### [address] Hemoglobin (Bld) [Mass/Vol] 11.8 g/dL Normal 11.8-15.4 [place] Comment on above: Performed By: #### F E and TIBC, KATHY, [id number], CBC #### [address] Lymphocytes (Bld) [#/Vol] 2.4 10*3/uL Normal 1.00-4.8 [place] Comment on above: Performed By: #### F E and TIBC, KATHY, [id number], CBC #### [address] Lymphocytes/100 WBC (Bld) 32.0 % Normal . [place] Comment on above: Performed By: #### F E and TIBC, KATHY, [id number], CBC #### [address] MCH (RBC) [Entitic mass] 24.2 pg Low 24.7-34.3 [place] Comment on above: Performed By: #### F E and TIBC, KATHY, [id number], CBC #### [address] MCV (RBC) [Entitic vol] 76.9 fL Low 80-100 [place] Comment on above: Performed By: #### F E and TIBC, KATHY, [id number], CBC #### [address] Mean Corpuscular HGB Conc 31.4 g/dL Low 32.0-35.0 [place] Comment on above: Performed By: #### F E and TIBC, KATHY, [id number], CBC #### [address] Monocytes (Bld) [#/Vol] 0.4 10*3/uL Normal 0.0-0.8 [place] Comment on above: Performed By: #### F E and TIBC, KATHY, [id number], CBC #### [place] [address] [place] Monocytes/100 WBC (Bld) 5.8 % Normal . [place] Comment on above: Performed By: #### F E and TIBC, KATHY, [id number], CBC #### [place] [address] [place] Neutrophils (Bld) [#/Vol] 4.6 10*3/uL Normal 1.8-7.7 [place] Comment on above: Performed By: #### F E and TIBC, KATHY, [id number], CBC #### [address] Neutrophils/100 WBC (Bld) 59.9 % Normal . [place] Comment on above: Performed By: #### F E and TIBC, KATHY, [id number], CBC #### [place] [address] [place] Nucleated RBC/100 WBC (Bld) [Ratio] 0.2 % Normal 0-0.5 [place] Comment on above: Performed By: #### F E and TIBC, KATHY, [id number], CBC #### [address] Platelet mean volume (Bld) [Entitic vol] 6.5 fL Normal 6.3-10.7 [place] Comment on above: Performed By: #### F E and TIBC, KATHY, [id number], CBC #### [place] [address] [place] Platelets (Bld) [#/Vol] 231 10*3/uL Normal 150-450 [place] Comment on above: Performed By: #### F E and TIBC, KATHY, [id number], CBC #### [place] [address] [place] RBC (Bld) [#/Vol] 4.88 10*6/uL Normal 3.60-5.00 [facility] Comment on above: Performed By: #### F E and TIBC, KATHY, [id number], CBC #### [facility] [address] WBC (Bld) [#/Vol] 7.6 10*3/uL Normal 4.5-11.0 [facility] Comment on above: Performed By: #### F E and TIBC, KATHY, [id number], CBC #### [facility] [address] Eosinophils Auto (Bld) [#/Vo l]Ordered By: Hood Patel on 05-12-2022 Eosinophils (Bld) [#/Vol] 0.1 10*3/uL 0.0-0.45 [place] Eosinophils/100 WBC Auto (Bl d)Ordered By: Hood Patel on 05-12-2022 Eosinophils/100 WBC (Bld) 1.6 % . [place] Erythrocyte distribution wid th Auto (RBC) [Ratio]Ordered By: Hood Patel on 05-12-2022 Erythrocyte distribution width (RBC) [Ratio] 27.8 % 11.9-15.3 [place] Ferritinon 05-12-2022 Ferritin [Mass/Vol] 218.6 ng/mL Normal 11-306.8 [facility] Comment on above: Performed By: #### F E and TIBC, KATHY, [id number], CBC #### [facility] [address] Ferritin [Mass/volume] in Se rum or PlasmaOrdered By: Hood Patel on 05-12-2022 Ferritin [Mass/Vol] 218.6 ng/mL 11-306.8 [facility] Folate [Mass/volume] in Seru m or PlasmaOrdered By: Hood Patel on 05-12-2022 Folate [Mass/Vol] 7.9 ng/mL >5.9 [facility] Comment on above: Folate reference ran ge: >5.9 ng/ml The WHO technical consultation on folate and vitamin b12 deficiencies has determined that folate concentrations less than 4 ng/ml are considered deficient. Glucose Glucometer (BldC) [M ass/Vol]Ordered By: Hood Patel on 05-12-2022 Glucose [Mass/Vol] 426 mg/dL [facility] Comment on above: Random Glucose Refer ence Range is dependent on time and content of last meal. Glucose of more than 200 mg/dL in a nonstressed, ambulatory subject supports the diagnosis of Diabetes Mellitus. Glucose Poct Glucometerson 0 05-12-2022 Commemt1 Normal [place] Comment on above: Result Comment: Glu2 : Result Not Confirmed PERFORMED BY: [place] [address] PATHOLOGIST [employer] JENY DODGE M.D. Performed By: #### G LULS #### Point of Care testing , Glucose [Mass/Vol] 426 mg/dL Off scale high [facility] Comment on above: Result Comment: [place] om Glucose Reference Range is dependent on time and content of last meal. Glucose of more than 200 mg/dL in a nonstressed, ambulatory subject supports the diagnosis of Diabetes Mellitus. Performed By: #### G LULS #### Point of Care testing , Hematocrit Auto (Bld) [Volum e fraction]Ordered By: Hood Patel on 05-12-2022 Hematocrit (Bld) [Volume fraction] 37.5 % 34.0-46.4 [place] Iron [Mass/volume] in Serum or PlasmaOrdered By: Hood Patel on 05-12-2022 Iron [Mass/Vol] 48 ug/dL 40-150 [place] Iron and TIBC Profileon 04-15 % Iron Saturation 16.0 % Low 20-50 [facility] Comment on above: Performed By: #### F E and TIBC, KATHY, [id number], CBC #### [facility] [address] Iron [Mass/Vol] 48 ug/dL Normal 40-150 [place] Comment on above: Performed By: #### F E and TIBC, KATHY, [id number], CBC #### [facility] [address] Total Iron Binding Capacity 288 ug/dL Normal 255-450 [place] Comment on above: Performed By: #### F E and TIBC, KATHY, [id number], CBC #### [facility] [address] Transferrin [Mass/Vol] 206 mg/dL Normal 180-380 [facility] Comment on above: Performed By: #### F E and TIBC, KATHY, [id number], CBC #### [facility] [address] Iron binding capacity [Mass/ volume] in Serum or PlasmaOrdered By: Hood Patel on 05-12-2022 Iron binding capacity [Mass/Vol] 288 ug/dL 255-450 [place] Iron saturation [Mass Fracti on] in Serum or PlasmaOrdered By: Hood Patel on 05-12-2022 Iron saturation [Mass fraction] 16.0 % 20-50 [place] Los 05-12-2022 L - -------- Specimen: [id number] Received: 05/12/22 Status: CORRY Hernandez Num: [id number] Spec Type: Surgical Subm Dr: Hood Patel MD Tissues: A Duodenum - Biopsy (DUODENAL BX) Procedures: HE Stain/2, Gross/Micro L4 -------- Age/ Patient Sex Location Account Attending Physician -------- RaRobina Ivette 71/F [id number] Hood Patel MD -------- SPEC NUM: [id number] RECD: 05/12/22 STATUS: [place] NUM: [id number] PROSPER: 05/12/22 [facility] DR: Hood Patel MD ENTERED: 05/12/[address] [facility] DR: VELASQUEZ TYPE: Surgical DEPT: S ORDERED: [...] microscopic findings support the above pathologic diagnosis. [id number] -------- -------- Specimen: [id number] Received: 05/12/22 Status: CORRY Hernandez Num: [id number] Spec Type: Surgical Subm Dr: Hood Patel MD Tissues: A Duodenum - Biopsy (DUODENAL BX) Procedures: HE Stain/2, Gross/Micro L4 -------- Patient: Robina Ron [id number] (Continued) -------- Signed (signature on file) Jeny Dodge MD 05/13/22 5538 [facility] - Chemistry and C hemistry - challengeOrdered By: Hood Patel on 05-12-2022 Cobalamin (Vitamin B12) [Mass/Vol] 277 pg/mL 180-914 [place] [facility] - Hematology and Cell countsOrdered By: Hood Patel on 05-12-2022 Nucleated RBC/100 WBC (Bld) [Ratio] 0.2 % 0-0.5 [place] Lymphocytes Auto (Bld) [#/Vo l]Ordered By: Hood Patel on 05-12-2022 Lymphocytes (Bld) [#/Vol] 2.4 10*3/uL 1.00-4.8 [place] Lymphocytes/100 WBC Auto (Bl d)Ordered By: Hood Patel on 05-12-2022 Lymphocytes/100 WBC (Bld) 32.0 % . [place] MCH Auto (RBC) [Entitic mass ]Ordered By: Hood Patel on 05-12-2022 MCH (RBC) [Entitic mass] 24.2 pg 24.7-34.3 [place] MCHC Auto (RBC) [Mass/Vol]Or dered By: Hood Patel on 05-12-2022 MCHC (RBC) [Mass/Vol] 31.4 g/dL 32.0-35.0 [facility] MCV Auto (RBC) [Entitic vol] Ordered By: Hood Patel on 05-12-2022 MCV (RBC) [Entitic vol] 76.9 fL 80-100 [place] Monocytes Auto (Bld) [#/Vol] Ordered By: Hood Patel on 05-12-2022 Monocytes (Bld) [#/Vol] 0.4 10*3/uL 0.0-0.8 [place] Monocytes/100 WBC Auto (Bld) Ordered By: Hood Patel on 05-12-2022 Monocytes/100 WBC (Bld) 5.8 % . [place] Neutrophils Auto (Bld) [#/Vo l]Ordered By: Hood Patel on 05-12-2022 Neutrophils (Bld) [#/Vol] 4.6 10*3/uL 1.8-7.7 [place] Neutrophils/100 WBC Auto (Bl d)Ordered By: Hood Patel on 05-12-2022 Neutrophils/100 WBC (Bld) 59.9 % . [place] No Panel InformationOrdered By: Hood Patel on 05-12-2022 Bedside Glucose Comment See comment [place] Comment on above: Glu2: Result Not Con firmed Platelet mean volume Auto (B ld) [Entitic vol]Ordered By: Hood Amanda on 05-12-2022 Platelet mean volume (Bld) [Entitic vol] 6.5 fL 6.3-10.7 [place] Platelets Auto (Bld) [#/Vol] Ordered By: Hood Tanormack on 05-12-2022 Platelets (Bld) [#/Vol] 231 10*3/uL 150-450 [place] RBC Auto (Bld) [#/Vol]Ordere d By: Hood Patel on 05-12-2022 RBC (Bld) [#/Vol] 4.88 10*6/uL 3.60-5.00 [facility] Vit. B12/Folate Profileon Cobalamin (Vitamin B12) [Mass/Vol] 277 pg/mL Normal 180-914 [place] Comment on above: Performed By: #### F E and TIBC, KATHY, [id number], CBC #### [facility] [address] Folate 7.9 ng/mL Normal >5.9 [place] Comment on above: Result Comment: Katelyn te reference range: >5.9 ng/ml The WHO technical consultation on folate and vitamin b12 deficiencies has determined that folate concentrations less than 4 ng/ml are considered deficient. PERFORMED BY: [place] [address] PATHOLOGIST [employer] JENY DODGE M.D. Performed By: #### F E and TIBC, KATHY, [id number], CBC #### [facility] [address] COVID-19 FRMCon 05-07-2022 SARS-CoV-2 (COVID-19) RNA CHALINO+probe Ql (Unsp spec) Negative Normal Negative [place] Comment on above: Order Comment: Healt hcare Worker?: N Result Comment: Testing for SARS-CoV-2 by RT-PCR This test was developed and its performance characteristics determined by [employer] ([employer]) and validated at the [place]. This test has not been FDA cleared [...] is terminated or revoked sooner. PERFORMED BY: [place] [address] PATHOLOGIST [employer] JENY DODGE M.D. Performed By: #### C OVID 19 [facility] #### [address] COVID-19 Positive/NegativeOr dered By: Hood Patel on 05-07-2022 SARS-CoV-2 (COVID-19) N gene CHALINO+probe Ql (Resp) Negative Negative [place] Comment on above: Testing for SARS-CoV -2 by RT-PCR This test was developed and its performance characteristics determined by [employer] ([employer]) and validated at the [place]. This test has not been FDA cleared [...] Basophils (Bld) [#/Vol] 0.03 10*3/uL Normal <0.11 [facility] Comment on above: Order Comment: Speci men Type: BLOOD SPECIMEN Ordering Facility: [facility] Address: [address] [place] [address] Performed By: #### 5 7021-8, 90453-6 #### [facility] CLIA [id number] [address] [place] [address] Basophils/100 WBC (Bld) 0.3 % Normal [facility] Comment on above: Order Comment: Speci men Type: BLOOD SPECIMEN Ordering Facility: [facility] Address: [address] [place] [address] Performed By: #### 5 7021-8, 84672-6 #### [facility] CLIA [id number] [address] [place] [address] Differential cell count method Nom (Bld) Auto Normal [facility] Comment on above: Order Comment: Speci men Type: BLOOD SPECIMEN Ordering Facility: [facility] Address: [address] [place] [address] Performed By: #### 5 7021-8, 81196-9 #### [facility] CLIA [id number] [address] [place] [address] Eosinophils (Bld) [#/Vol] 0.09 10*3/uL Normal <0.46 [facility] Comment on above: Order Comment: Speci men Type: BLOOD SPECIMEN Ordering Facility: [facility] Address: [address] [address] Performed By: #### 5 7021-8, 06367-3 #### [facility] CLIA [id number] [address] [place] [address] Eosinophils/100 WBC (Bld) 1.0 % Normal [facility] Comment on above: Order Comment: Speci men Type: BLOOD SPECIMEN Ordering Facility: [facility] Address: [address] [place], [place] [address] Performed By: #### 5 7021-8, 27997-0 #### [facility] CLIA [id number] [address] [place] [address] Erythrocyte distribution width (RBC) [Ratio] 20.4 % High 11.5-15.0 [facility] Comment on above: Order Comment: Speci men Type: BLOOD SPECIMEN Ordering Facility: [facility] Address: [address] [place] [address] Performed By: #### 5 7021-8, 19597-5 #### [facility] CLIA [id number] [address] [place] [address] Hematocrit (Bld) [Volume fraction] 33.1 % Low 36.0-46.0 [facility] Comment on above: Order Comment: Speci men Type: BLOOD SPECIMEN Ordering Facility: [facility] Address: [address] [place] [address] Performed By: #### 5 7021-8, 41270-6 #### [facility] CLIA [id number] [address] [place] [address] 52052 Hemoglobin (Bld) [Mass/Vol] 9.3 g/dL Low 11.5-15.5 [facility] Comment on above: Order Comment: Speci men Type: BLOOD SPECIMEN Ordering Facility: [facility] Address: [address] [place] [address] Performed By: #### 5 7021-8, 92794-7 #### [facility] CLIA [id number] [address] [place] [address] 48263 IMMATURE GRAN % 0.9 % Normal [facility] Comment on above: Order Comment: Speci men Type: BLOOD SPECIMEN Ordering Facility: [facility] Address: [address] [place] [address] Performed By: #### 5 7021-8, 31521-2 #### [facility] CLIA [id number] [address] [place] [address] IMMATURE GRAN ABS 0.08 k/uL Normal <0.10 [facility] Comment on above: Order Comment: Speci men Type: BLOOD SPECIMEN Ordering Facility: [facility] Address: [address] [place] [address] Performed By: #### 5 7021-8, 40290-2 #### [facility] CLIA [id number] [address] [place] [address] 87099 Lymphocytes (Bld) [#/Vol] 2.43 10*3/uL Normal 1.00-4.00 [facility] Comment on above: Order Comment: Speci men Type: BLOOD SPECIMEN Ordering Facility: [facility] Address: [address] [place] [address] Performed By: #### 5 7021-8, 48549-4 #### [facility] CLIA [id number] [address] [place] [address] 98839 Lymphocytes/100 WBC (Bld) 26.6 % Normal [facility] Comment on above: Order Comment: Speci men Type: BLOOD SPECIMEN Ordering Facility: [facility] Address: [address] [place] [address] Performed By: #### 5 7021-8, 64067-3 #### [facility] CLIA [id number] [address] [place] [address] 78087 MCH (RBC) [Entitic mass] 20.2 pg Low 26.0-34.0 [facility] Comment on above: Order Comment: Speci men Type: BLOOD SPECIMEN Ordering Facility: [facility] Address: [address] [place] [address] Performed By: #### 5 7021-8, 40618-9 #### [facility] CLIA [id number] [address] [place] [address] 92261 MCHC (RBC) [Mass/Vol] 28.1 g/dL Low 30.5-36.0 [facility] Comment on above: Order Comment: Speci men Type: BLOOD SPECIMEN Ordering Facility: [facility] Address: [address] Performed By: #### 5 7021-8, 85521-9 #### [facility] CLIA [id number] [address] [place] [address] 22614 MCV (RBC) [Entitic vol] 72.0 fL Low 80.0-100.0 [facility] Comment on above: Order Comment: Speci men Type: BLOOD SPECIMEN Ordering Facility: [facility] Address: [address] [place], [place] [address] Performed By: #### 5 7021-8, 03404-8 #### [facility] CLIA [id number] [address] [place] [address] 84937 Monocytes (Bld) [#/Vol] 0.48 10*3/uL Normal <0.87 [facility] Comment on above: Order Comment: Speci men Type: BLOOD SPECIMEN Ordering Facility: [facility] Address: [address] Performed By: #### 5 7021-8, 92215-8 #### [facility] CLIA [id number] [address] [place] [address] 51467 Monocytes/100 WBC (Bld) 5.3 % Normal [facility] Comment on above: Order Comment: Speci men Type: BLOOD SPECIMEN Ordering Facility: [facility] Address: [address] Performed By: #### 5 7021-8, 82523-3 #### [facility] CLIA [id number] [address] [place] [address] 39890 Neutrophils (Bld) [#/Vol] 6.02 10*3/uL Normal 1.45-7.50 [facility] Comment on above: Order Comment: Speci men Type: BLOOD SPECIMEN Ordering Facility: [facility] Address: [address] [place], [place] [address] Performed By: #### 5 7021-8, 77386-0 #### [facility] CLIA [id number] [address] [place] [address] Neutrophils/100 WBC (Bld) 65.9 % Normal [facility] Comment on above: Order Comment: Speci men Type: BLOOD SPECIMEN Ordering Facility: [facility] Address: [address] [place] [address] Performed By: #### 5 7021-8, 38848-7 #### [facility] CLIA [id number] [address] [place] [address] 03948 Nucleated RBC (Bld) [#/Vol] 10*3/uL Normal <0.01 [facility] Comment on above: Order Comment: Speci men Type: BLOOD SPECIMEN Ordering Facility: [facility] Address: [address] [place] [address] Performed By: #### 5 7021-8, 90914-1 #### [facility] CLIA [id number] [address] [place] [address] 45037 Nucleated RBC/100 WBC (Bld) [Ratio] 0.0 /100 WBC Normal [facility] Comment on above: Order Comment: Speci men Type: BLOOD SPECIMEN Ordering Facility: [facility] Address: [address] [place] [address] Performed By: #### 5 7021-8, 63467-8 #### [facility] CLIA [id number] [address] [place] [address] 75429 Platelet mean volume (Bld) [Entitic vol] 7.7 fL Low 9.0-12.7 [facility] Comment on above: Order Comment: Speci men Type: BLOOD SPECIMEN Ordering Facility: [facility] Address: [address] [place] [address] Performed By: #### 5 7021-8, 28877-8 #### [facility] CLIA [id number] [address] [place] [address] 95301 Platelets (Bld) [#/Vol] 318 10*3/uL Normal 150-400 [facility] Comment on above: Order Comment: Speci men Type: BLOOD SPECIMEN Ordering Facility: [facility] Address: [facility] [address] [place] [id number] Performed By: #### 5 7021-8, 95624-4 #### [facility] CLIA [id number] [address] [place] [address] 28930 RBC (Bld) [#/Vol] 4.60 10*6/uL Normal 3.90-5.20 [facility] Comment on above: Order Comment: Speci men Type: BLOOD SPECIMEN Ordering Facility: [facility] Address: [address] [place], [place] [address]S[address] Performed By: #### 5 7021-8, 37902-5 #### [facility] CLIA [id number] [address] [place] [address] 67671 WBC (Bld) [#/Vol] 9.13 10*3/uL Normal 3.70-11.00 [facility] Comment on above: Order Comment: Speci men Type: BLOOD SPECIMEN Ordering Facility: [facility] Address: [address] [place], [place] [address] [id number] Performed By: #### 5 7021-8, 11385-0 #### [facility] CLIA [id number] [address] [place] [address] 68299 CNOVSPon 04-14-2022 OVS Visit (SP) Office ([place]) ROBINA RON ([id number]) 1950 F Date Time Provider Department 04/14/22 1:15 PM CHRISTI FINK During your visit today, we recorded the following information about you: Temperature Pulse Respiration Blood pressure 97.9 degrees 80/minute 16/minute 149/60 Weight Height 53.6 kg 1.524 m Christi Fink MD 04/14/2022 1:13 PM Signed PATIENT NAME: Robina Ron CLINIC NO.: [id number] ATTENDING PHYSICIAN: Christi Fink MD DATE OF [...] sciatica - COPD (chronic obstructive pulmonary disease) ([facility]) - CVA (cerebral vascular accident) ([facility]) - Diabetes mellitus (HCC) - Dyspnea - Factor V Leiden ([facility]) - GERD (gastroesophageal reflux disease) - History of colon polyps - Hyperlipidemia - Hypertension - Hypokalemia - Leukocytosis - JARRET (obstructive sleep apnea) - PAD (peripheral artery disease) ([facility]) - Pericardial effusion Social History Tobacco Use [...] Date Valu (more content not included)... Normal [facility] CNPNon 04-14-2022 CNPN Telephone ([place]) ROBINA RON ([id number]) 1950 F Date Time Provider Department 04/14/22 CHRISTY BYRD During your visit today, we recorded the following information about you: Christy Byrd RN 04/14/2022 1:25 PM Signed Key Monteiro from [facility] Client Services calls [...] is now seen by Dr Rainey at [facility]. Call placed to their office ([phone]) and message left requesting a call back. PSS: can you please update pt's PCP info. Thanks, JOS Bustamante Pss 04/14/2022 2:03 PM Signed PCP updated in chart Makenna Kendall RN 04/17/2022 10:39 AM Signed Call placed to [facility]. Office is closed. JOS Bustamante RN 04/21/2022 12:55 PM Signed Message left with Dr Rainey's medical instructor again today regarding this pt and the urgency of this being addressed. Will try again later today if I don't hear back from their office. JOS Bustamante RN 04/21/2022 1:35 PM Signed Spoke with Pankaj at Dr Rainey's office. Recent records and labs faxed to [phone] per office request. JOS Bustamante RN 04/21/2022 [...] Status:Closed by MAKENNA KENDALL on 04/21/22 Normal [facility] Comprehensive metabolic 2000 panelon 04-14-2022 Albumin [Mass/Vol] 3.5 g/dL Low 3.9-4.9 [facility] Comment on above: Order Comment: Nel sher Type: BLOOD SPECIMEN Ordering Facility: [facility] Address: [address] [place] [address] Performed By: #### 2 4323-8 #### [facility] CLIA [id number] [address] [place] [address] 24753 ALP [Catalytic activity/Vol] 120 U/L Normal 34-123 [facility] Comment on above: Order Comment: Nel sher Type: BLOOD SPECIMEN Ordering Facility: [facility] Address: [address] Performed By: #### 2 4323-8 #### [facility] CLIA [id number] [address] [place] [address] ALT [Catalytic activity/Vol] 15 U/L Normal 7-38 [facility] Comment on above: Order Comment: Speci men Type: BLOOD SPECIMEN Ordering Facility: [facility] Address: [address] Performed By: #### 2 4323-8 #### [facility] CLIA [id number] [address] [place] [address] Anion gap [Moles/Vol] 13 mmol/L Normal 9-18 [facility] Comment on above: Order Comment: Speci men Type: BLOOD SPECIMEN Ordering Facility: [facility] Address: [address] [place] [address] Performed By: #### 2 4323-8 #### [facility] CLIA [id number] [address] [place] [address]2004 AST [Catalytic activity/Vol] 21 U/L Normal 13-35 [facility] Comment on above: Order Comment: Speci men Type: BLOOD SPECIMEN Ordering Facility: [facility] Address: [address] Performed By: #### 2 4323-8 #### [facility] CLIA [id number] [address] [place] [address] 69107 Bilirubin [Mass/Vol] 0.2 mg/dL Normal 0.2-1.3 [facility] Comment on above: Order Comment: Speci men Type: BLOOD SPECIMEN Ordering Facility: [facility] Address: [address] Performed By: #### 2 4323-8 #### [facility] CLIA [id number] [address] [place] [address] Calcium [Mass/Vol] 9.1 mg/dL Normal 8.5-10.2 [facility] Comment on above: Order Comment: Speci men Type: BLOOD SPECIMEN Ordering Facility: [facility] Address: [address] [place] [address] Performed By: #### 2 4323-8 #### [facility] CLIA [id number] [address] [place] [address] 59642 Chloride [Moles/Vol] 103 mmol/L Normal 97-105 [facility] Comment on above: Order Comment: Speci men Type: BLOOD SPECIMEN Ordering Facility: [facility] Address: [address] [place] [address] Performed By: #### 2 4323-8 #### [facility] CLIA [id number] [address] [place] [address] 22364 CO2 [Moles/Vol] 22 mmol/L Normal 22-30 [facility] Comment on above: Order Comment: Speci men Type: BLOOD SPECIMEN Ordering Facility: [facility] Address: [address] [place] [address] Performed By: #### 2 4323-8 #### [facility] CLIA [id number] [address] [place] [address] 08955 Creatinine [Mass/Vol] 0.53 mg/dL Low 0.58-0.96 [facility] Comment on above: Order Comment: Speci men Type: BLOOD SPECIMEN Ordering Facility: [facility] Address: [address] [place] [address] Performed By: #### 2 4323-8 #### [facility] CLIA [id number] [address] [place] [address] 28296 ESTIMATED GLOMERULAR FILTRATION RATE 99 mL/min/1.73m??? Normal >=60 [facility] Comment on above: Order Comment: Speci men Type: BLOOD SPECIMEN Ordering Facility: [facility] Address: [address] [place] [address] Result Comment: Kaylynn mated Glomerular Filtration Rate [...] GFR. Performed By: #### 2 4323-8 #### [facility] CLIA [id number] [address] [place] [address] Glucose [Mass/Vol] 508 mg/dL High 74-99 [facility] Comment on above: Order Comment: Speci men Type: BLOOD SPECIMEN Ordering Facility: [facility] Address: [address] [place] [address] Result Comment: The [place] Diabetes Association (ADA) provides guidance for cutoff [...] Standards of Medical Care in Diabetes 2016, [place] Diabetes Association. Diabetes Care. 2016.39(Suppl 1). Performed By: #### 2 4323-8 #### [facility] CLIA [id number] [address] [place] [address] Potassium [Moles/Vol] 3.6 mmol/L Low 3.7-5.1 [facility] Comment on above: Order Comment: Speci men Type: BLOOD SPECIMEN Ordering Facility: [facility] Address: [address] [place] [address] Performed By: #### 2 4323-8 #### [facility] CLIA [id number] [address] [place] [address] Protein [Mass/Vol] 5.4 g/dL Low 6.3-8.0 [facility] Comment on above: Order Comment: Speci men Type: BLOOD SPECIMEN Ordering Facility: [facility] Address: [address] [place] [address] Performed By: #### 2 4323-8 #### [facility] CLIA [id number] [address] [place] [address] 47871 Sodium [Moles/Vol] 138 mmol/L Normal 136-144 [facility] Comment on above: Order Comment: Speci men Type: BLOOD SPECIMEN Ordering Facility: [facility] Address: [address] [place] [address] Performed By: #### 2 4323-8 #### [facility] CLIA [id number] [address] [place], [place] [address] Urea nitrogen [Mass/Vol] 8 mg/dL Normal 7-21 [facility] Comment on above: Order Comment: Speci men Type: BLOOD SPECIMEN Ordering Facility: [facility] Address: [address] [place] [address] Performed By: #### 2 4323-8 #### [facility] CLIA [id number] [address] [place] [address] 58092 Ferritin SerPl-mCncon 2021 Ferritin [Mass/Vol] 15.5 ng/mL Normal 14.7-205.1 [facility] Comment on above: Order Comment: Speci men Type: BLOOD SPECIMEN Ordering Facility: [facility] Address: [address] [place] [address] Performed By: #### 2 276-4, 45511-3 #### [facility] CLIA [id number] [address] [place], [place] [address] [place] GLUCOSE, BLOOD (POC)on 04-14 Glucose [Mass/Vol] 373 mg/dL Abnormal 74 - 99 mg/dL [facility] [place] [employer] binding capaci ty panelon 04-14-2022 Iron [Mass/Vol] 17 ug/dL Low 41-186 [facility] Comment on above: Order Comment: Speci men Type: BLOOD SPECIMEN Ordering Facility: [facility] Address: [address] [place], [place] [address] Performed By: #### 2 276-4, 64704-6 #### [facility] CLIA [id number] [address] [place] [address] [place] Iron binding capacity [Mass/Vol] 337 ug/dL Normal 232-386 [facility] Comment on above: Order Comment: Speci men Type: BLOOD SPECIMEN Ordering Facility: [facility] Address: [address] [place] [address] Performed By: #### 2 276-4, 09802-9 #### [facility] CLIA [id number] [address] [place] [address] [place] Iron/TIBC [Molar ratio] 5.0 % Low 15.0-57.0 [facility] Comment on above: Order Comment: Speci men Type: BLOOD SPECIMEN Ordering Facility: [facility] Address: [address] [place] [address] Performed By: #### 2 276-4, 47311-5 #### [facility] CLIA [id number] [address] [place] [address] [place] Retics #on 04-14-2022 Reticulocytes (Bld) [#/Vol] 0.47263 10*3/uL Normal 0.018-0.100 [facility] Comment on above: Order Comment: Speci men Type: BLOOD SPECIMEN Ordering Facility: [facility] Address: [address] [place], [place] [address] Performed By: #### 5 7021-8, 39133-6 #### [facility] CLIA [id number] [address] [place] [address] 20539 Reticulocytes (Bld) [#/Vol]o n 04-14-2022 Reticulocytes/100 RBC (Bld) 1.8 % Normal 0.4-2.0 [facility] Comment on above: Order Comment: Speci men Type: BLOOD SPECIMEN Ordering Facility: [facility] Address: [address] [place] [address] Performed By: #### 5 7021-8, 06895-1 #### [facility] CLIA [id number] [address] [place] [address] 54462 CBC AUTO DIFFon 04-08-2022 BASO # 0.0 103/ul Normal 0.0-0.1 [facility] Comment on above: Performed By: #### A 1C #### [facility] [address] [address] [address] Julisa Lowe Basophils/100 WBC (Bld) 0.4 % Normal 0.2-2.0 [facility] Comment on above: Performed By: #### A 1C #### [facility] [address] [place] [address] Dr. Julisa Lowe EO # 0.2 103/ul Normal 0.0-0.7 [facility] Comment on above: Performed By: #### A 1C #### [facility] [address] [place] [address] Dr. Julisa Lowe Eosinophils/100 WBC (Bld) 1.7 % Normal 0.9-7.0 [facility] Comment on above: Performed By: #### A 1C #### [facility] [address] [place] [address] Dr. Julisa Lowe Erythrocyte distribution width (RBC) [Ratio] 20.8 % Critically high 11.0-15.0 [facility] Comment on above: Performed By: #### A 1C #### [facility] [address] [place] [address] Dr. Julisa Lowe Hematocrit (Bld) [Volume fraction] 34.9 % Critically low 36.0-48.0 [facility] Comment on above: Performed By: #### A 1C #### [facility] [address] [place] [address] Dr. Julisa Lowe Hemoglobin (Bld) [Mass/Vol] 10.0 g/dL Critically low 12.0-16.0 [facility] Comment on above: Performed By: #### A 1C #### [facility] [address] [address] [address] Julisa Lowe IG # 0.08 10e3/ul Critically high 0.00-0.03 [facility] Comment on above: Performed By: #### A 1C #### [facility] [address] [address] [address] Julisa Lowe IG % 0.7 % Critically high 0.0-0.5 [facility] Comment on above: Performed By: #### A 1C #### [facility] [address] [address] [address] Julisa Lowe LYMPH # 3.6 103/ul Normal 1.2-3.8 [facility] Comment on above: Performed By: #### A 1C #### [facility] [address] [place] [address] Dr. Julisa Lowe Lymphocytes/100 WBC (Bld) 33.3 % Normal 20.5-60.0 [facility] Comment on above: Performed By: #### A 1C #### [facility] [address] [place] [address] Dr. Julisa Lowe MANUAL DIFF REQ NO Normal [facility] Comment on above: Performed By: #### A 1C #### [facility] [address] [address] [address] Julisa Lowe MCH (RBC) [Entitic mass] 20.2 pg Critically low 26.7-34.0 [facility] Comment on above: Performed By: #### A 1C #### [facility] [address] [address] [address] Julisa Lowe MCHC (RBC) [Mass/Vol] 28.7 g/dL Critically low 29.9-35.2 [facility] Comment on above: Performed By: #### A 1C #### [facility] [address] [address] [address] Julisa Lowe MCV (RBC) [Entitic vol] 70.6 fL Critically low 81.0-99.0 [facility] Comment on above: Performed By: #### A 1C #### [facility] [address] [address] [address] Jluisa Lowe MONO # 0.6 103/ul Normal 0.3-0.8 [facility] Comment on above: Performed By: #### A 1C #### [facility] [address] [place] [address] Dr. Julisa Lowe Monocytes/100 WBC (Bld) 5.4 % Normal 1.7-12.0 [facility] Comment on above: Performed By: #### A 1C #### [facility] [address] [place] [address] Dr. Julisa Lowe NEUT # 6.4 103/ul Normal 1.4-6.5 [facility] Comment on above: Performed By: #### A 1C #### [facility] [address] [place] [address] Dr. Julisa Lowe Neutrophils/100 WBC (Bld) 58.5 % Normal 43.0-75.0 [facility] Comment on above: Performed By: #### A 1C #### [facility] [address] [place] [address] Dr. Julisa Lowe Platelet mean volume (Bld) [Entitic vol] 8.1 fL Critically low 9.5-13.5 [facility] Comment on above: Performed By: #### A 1C #### [facility] [address] [place] [address] Dr. Julisa Lowe PLT 325 103/ul Normal 150-450 [facility] Comment on above: Performed By: #### A 1C #### [facility] [address] [place] [address] Dr. Julisa Lowe RBC 4.94 106/ul Normal 4.20-5.40 [facility] Comment on above: Performed By: #### A 1C #### [facility] [address] [place] [address] Dr. Julisa Lowe WBC 10.9 103/ul Normal 4.0-11.0 [facility] Comment on above: Performed By: #### A 1C #### [facility] [address] [place] [address] Dr. Julisa Lowe FERRITINon 04-08-2022 Ferritin [Mass/Vol] 15.0 ng/mL Normal 8.0-252.0 [facility] Comment on above: Performed By: #### A 1C #### [facility] [address] [address] [address] Julisa Hopkins 04-06-2022 CNPN Telephone (NCCAP) ROBINA RON ([id number]) 1950 F Date Time Provider Department 04/06/22 CHRISTI FINK NCCBLANCA During your visit today, we recorded the following information about you: Makenna Hidalgo Sec 04/06/2022 7:49 AM Signed Please send records to [facility] office thanks! MD Tj Thompson; Makenna Hidalgo Sec Please refer her to GI for an upper endoscopy. ?Thanks Adrienne Weinstein [facility] 04/06/2022 8:12 AM Signed Gladys: Information ready for you. Adrienne Weinstein [facility] Shaye Gonzalez [facility] 04/06/2022 8:57 AM Signed Records faxed to Dr. Rich. Adrienne Weinstein [facility] 04/09/2022 8:40 AM Signed Called Angélica Romano spoke with [facility]. She states they have received this referral and their referral dept will be calling patient soon to schedule. I will call back sometime next week check on status of this referral. Adrienne Weinstein [facility] Adrienne Weinstein [facility] 04/13/2022 1:18 PM Signed Called Angélica Romano spoke with [facility]. She states they have called left patient message to call them back to schedule. Adrienne Weinstein [facility] Adrienne Weinstein [facility] 04/16/2022 9:07 AM Signed Called Angélica Romano spoke with [facility]. She states they have patient scheduled to see Dr Patel on 05/12 for EGD. Adrienne Weinstein [facility] Allergies As of Date: 04/06/2022 Noted Allergy [...] Encounter Status:Closed by TJ HUNTER on 04/16/22 [facility] CNOVSPon 04-03-2022 CNOVSP Visit (SP) Office ([place]) ROBINA RON ([id number]) 1950 F Date Time Provider Department 04/03/22 4:30 PM CHRISTI FINK During your visit today, we recorded the following information about you: Temperature Pulse Respiration Blood pressure 97.4 degrees 90/minute 16/minute 107/38 Weight Height 53.6 kg 1.524 m Christi Fink MD 04/04/2022 11:07 AM Signed PATIENT NAME: Robina Ron CLINIC NO.: [id number] ATTENDING PHYSICIAN: Christi Fink MD DATE OF [...] not taking: Reported on 03/31/2022 ) - Fgtzc-6-JXT-EPA-Fish Oil 1,000 mg (120 mg-180 mg) cap [...] Inject subcutaneously as needed. Dose varies. Joselyn Stefan (Patient not taking: Reported on 03/31/2022 ) No current facility-administered medications for this visit. ALLERGIES Allergen Reactions - Percocet [Oxycodone* Mental (more content not included)... Normal [facility] ECHO LIMITED STUDYon 02-06-2 022 ECHO LIMITED STUDY Patient: ROBINA RON Exam Date: 02/06/2022 : 1950 Gender:F Ordering : EDD WADE Admission #: [id number] Family : Order #: [id number] CLICK HERE TO VIEW EXAM ECHOCARDIOGRAM REPORT [...] Area(A4C): 21.60 cm2 Left Atrium Systolic Volume(A2C): 26114 mm3 Left Atrium Systolic Volume(A4C): 92846 mm3 Mitral Valve Right Ventricle Aorta AO Root Diam: 3.10 cm Aortic Valve Tricuspid Valve Pulmonic Valve Right Atrium Dictated by: Alfred Suggs M.D. on 02/06/2022 at 15:55 Approved by: Alfred Suggs M.D. on 02/06/2022 at 16:11 Normal [facility] CBC AUTO DIFFon 01-23-2022 BASO # 0.0 103/ul Normal 0.0-0.1 [facility] Comment on above: Performed By: #### A 1C #### [facility] [address] [place] [address] Dr. Julisa Lowe Basophils/100 WBC (Bld) 0.3 % Normal 0.2-2.0 [facility] Comment on above: Performed By: #### A 1C #### [facility] [address] [place] [address] Dr. Julisa Lowe EO # 0.1 103/ul Normal 0.0-0.7 [facility] Comment on above: Performed By: #### A 1C #### [facility] [address] [place] [address] Dr. Julisa Lowe Eosinophils/100 WBC (Bld) 1.0 % Normal 0.9-7.0 [facility] Comment on above: Performed By: #### A 1C #### [facility] [address] [place] [address] Dr. Julisa Lowe Erythrocyte distribution width (RBC) [Ratio] 18.6 % Critically high 11.0-15.0 [facility] Comment on above: Performed By: #### A 1C #### [facility] [address] [place] [address] Dr. Julisa Lowe Hematocrit (Bld) [Volume fraction] 29.6 % Critically low 36.0-48.0 [facility] Comment on above: Performed By: #### A 1C #### [facility] [address] [place] [address] Dr. Julisa Lowe Hemoglobin (Bld) [Mass/Vol] 8.5 g/dL Critically low 12.0-16.0 [facility] Comment on above: Performed By: #### A 1C #### [facility] [address] [place] [address] Dr. Julisa Lowe IG # 0.09 10e3/ul Critically high 0.00-0.03 [facility] Comment on above: Performed By: #### A 1C #### [facility] [address] [place] [address] Dr. Julisa Lowe IG % 0.7 % Critically high 0.0-0.5 [facility] Comment on above: Performed By: #### A 1C #### [facility] [address] [place] [address] Dr. Julisa Lowe LYMPH # 3.2 103/ul Normal 1.2-3.8 [facility] Comment on above: Performed By: #### A 1C #### [facility] [address] [place] [address] Dr. Julisa Lowe Lymphocytes/100 WBC (Bld) 25.5 % Normal 20.5-60.0 [facility] Comment on above: Performed By: #### A 1C #### [facility] [address] [place] [address] Dr. Julisa Lowe MANUAL DIFF REQ NO Normal [facility] Comment on above: Performed By: #### A 1C #### [facility] [address] [place] [address] Dr. Julisa Lowe MCH (RBC) [Entitic mass] 20.2 pg Critically low 26.7-34.0 [facility] Comment on above: Performed By: #### A 1C #### [facility] [address] [place] [address] Dr. Julisa Lowe MCHC (RBC) [Mass/Vol] 28.7 g/dL Critically low 29.9-35.2 [facility] Comment on above: Performed By: #### A 1C #### [facility] [address] [place] [address] Dr. Julisa Lowe MCV (RBC) [Entitic vol] 70.5 fL Critically low 81.0-99.0 [facility] Comment on above: Performed By: #### A 1C #### [facility] [address] [place] [address] Dr. Julisa Lowe MONO # 0.6 103/ul Normal 0.3-0.8 [facility] Comment on above: Performed By: #### A 1C #### [facility] [address] [place] [address] Dr. Julisa Lowe Monocytes/100 WBC (Bld) 4.8 % Normal 1.7-12.0 [facility] Comment on above: Performed By: #### A 1C #### [facility] [address] [place] [address] Dr. Julisa Lowe NEUT # 8.4 103/ul Critically high 1.4-6.5 [facility] Comment on above: Performed By: #### A 1C #### [facility] [address] [place] [address] Dr. Julisa Lowe Neutrophils/100 WBC (Bld) 67.7 % Normal 43.0-75.0 [facility] Comment on above: Performed By: #### A 1C #### [facility] [address] [place] [address] Dr. Julisa Lowe Platelet mean volume (Bld) [Entitic vol] 7.9 fL Critically low 9.5-13.5 [facility] Comment on above: Performed By: #### A 1C #### [facility] [address] [place] [address] Dr. Julisa Lowe PLT 252 103/ul Normal 150-450 [facility] Comment on above: Performed By: #### A 1C #### [facility] [address] [place] [address] Dr. Julisa Lowe RBC 4.20 106/ul Normal 4.20-5.40 [facility] Comment on above: Performed By: #### A 1C #### [facility] [address] [place] [address] Dr. Julisa Lowe WBC 12.4 103/ul Critically high 4.0-11.0 [facility] Comment on above: Performed By: #### A 1C #### [facility] [address] [place] [address] Dr. Julisa Lowe FERRITINon 01-23-2022 Ferritin [Mass/Vol] 7.0 ng/mL Critically low 8.0-252.0 [facility] Comment on above: Performed By: #### P OCGLUC #### [facility] [address] [place] [address] Dr. Julisa Lowe GLYCOHEMOGLOBIN A1Con 2021 ADA RECOMMENDATION SEE BELOW Normal [facility] Comment on above: Result Comment: ADA RECOMMENDED LIMIT 4.0 - 6.0 ADA THERAPEUTIC TARGET < 7.0 ACTION SUGGESTED > 7.0 Performed By: #### A 1C #### [facility] [address] [place] [address] Dr. Julisa Lowe Glucose [Mass/Vol] 197 mg/dL Normal [facility] Comment on above: Performed By: #### A 1C #### [facility] [address] [place] [address] Dr. Julisa Lowe HbA1c (Bld) [Mass fraction] 8.5 % Critically high 4.5-6.2 [facility] Comment on above: Performed By: #### A 1C #### [facility] [address] [place] [address] Dr. Julisa Lowe TSHon 01-23-2022 TSH 0.501 uIU/mL Normal 0.358-3.740 [facility] Comment on above: Performed By: #### A 1C #### [facility] [address] [place] [address] Dr. Julisa Lowe TSH RANGE SEE BELOW Normal [facility] Comment on above: Result Comment: <0.3 4 UIU/ml HYPERTHYROID 0.34-5.60 UIU/ml EUTHYROID >5.60 UIU/ml HYPOTHYROID Performed By: #### A 1C #### [facility] [address] [place] [address] Dr. Julisa Lowe VIT B12 AND FOLATEon 022 Cobalamin (Vitamin B12) [Mass/Vol] 193.0 pg/mL Normal 193.0-986.0 [facility] Comment on above: Performed By: #### P OCGLUC #### [facility] [address] [place] [address] Dr. Julisa Lowe FOLATE 12.90 ng/mL Normal 8.60-58.90 [facility] Comment on above: Performed By: #### P OCGLUC #### [facility] [address] [place] [address] Dr. Julisa Lowe CULTURE URINEon 12-23-2021 CULTURE [...] F Trimethoprim/Sulfamet hoxazole >=320 R F Normal [facility] Comment on above: Performed By: #### H STROPN #### [facility] [address] [address] [address] Julisa Lowe NM STRESS/REST MULTIon 12-22 NM STRESS/REST MULTI Patient: ROBINA RON Exam Date: 12/22/2021 : 1950 Gender:F Ordering : EDD WOODYANGELICKEERTHI Admission #: [id number] Family : DR CATHERINE SANCHEZ . Order #: [id number] CLICK HERE TO VIEW EXAM RADIOLOGY REPORT [...] study was normal per attending physician Dr. Suggs . For more details please see separate [...] M.D. on 12/22/2021 at 12:45 Normal [facility] CBC AUTO DIFFon 12-21-2021 BASO # 0.0 103/ul Normal 0.0-0.1 [facility] Comment on above: Performed By: #### A 1C #### [facility] [address] [address] [address] Julisa Lowe Basophils/100 WBC (Bld) 0.4 % Normal 0.2-2.0 [facility] Comment on above: Performed By: #### A 1C #### [facility] [address] [address] [address] Julisa Lowe EO # 0.1 103/ul Normal 0.0-0.7 [facility] Comment on above: Performed By: #### A 1C #### [facility] [address] [address] [address] Julisa Lowe Eosinophils/100 WBC (Bld) 1.3 % Normal 0.9-7.0 [facility] Comment on above: Performed By: #### A 1C #### [facility] [address] [place] [address] Dr. Julisa Lowe Erythrocyte distribution width (RBC) [Ratio] 19.7 % Critically high 11.0-15.0 [facility] Comment on above: Performed By: #### A 1C #### [facility] [address] [place] [address] Dr. Julisa Lowe Hematocrit (Bld) [Volume fraction] 31.6 % Critically low 36.0-48.0 [facility] Comment on above: Performed By: #### A 1C #### [facility] [address] [place] [address] Dr. Julisa Lowe Hemoglobin (Bld) [Mass/Vol] 9.2 g/dL Critically low 12.0-16.0 [facility] Comment on above: Performed By: #### A 1C #### [facility] [address] [address] [address] Julisa Lowe IG # 0.07 10e3/ul Critically high 0.00-0.03 [facility] Comment on above: Performed By: #### A 1C #### [facility] [address] [place] [address] Dr. Julisa Lowe IG % 0.7 % Critically high 0.0-0.5 [facility] Comment on above: Performed By: #### A 1C #### [facility] [address] [place] [address] Dr. Julisa Lowe LYMPH # 3.2 103/ul Normal 1.2-3.8 [facility] Comment on above: Performed By: #### A 1C #### [facility] [address] [place] [address] Dr. Julisa Lowe Lymphocytes/100 WBC (Bld) 30.8 % Normal 20.5-60.0 [facility] Comment on above: Performed By: #### A 1C #### [facility] [address] [place] [address] Dr. Julisa Lowe MANUAL DIFF REQ NO Normal [facility] Comment on above: Performed By: #### A 1C #### [facility] [address] [place] [address] Dr. Julisa Lowe MCH (RBC) [Entitic mass] 20.4 pg Critically low 26.7-34.0 [facility] Comment on above: Performed By: #### A 1C #### [facility] [address] [place] [address] Dr. Julisa Lowe MCHC (RBC) [Mass/Vol] 29.1 g/dL Critically low 29.9-35.2 [facility] Comment on above: Performed By: #### A 1C #### [facility] [address] [place] [address] Dr. Julisa Lowe MCV (RBC) [Entitic vol] 69.9 fL Critically low 81.0-99.0 [facility] Comment on above: Performed By: #### A 1C #### [facility] [address] [place] [address] Dr. Julisa Lowe MONO # 0.8 103/ul Normal 0.3-0.8 [facility] Comment on above: Performed By: #### A 1C #### [facility] [address] [place] [address] Dr. Julisa Lowe Monocytes/100 WBC (Bld) 7.3 % Normal 1.7-12.0 [facility] Comment on above: Performed By: #### A 1C #### [facility] [address] [place] [address] Dr. Julisa Lowe NEUT # 6.2 103/ul Normal 1.4-6.5 [facility] Comment on above: Performed By: #### A 1C #### [facility] [address] [place] [address] Dr. Julisa Lowe Neutrophils/100 WBC (Bld) 59.5 % Normal 43.0-75.0 [facility] Comment on above: Performed By: #### A 1C #### [facility] [address] [place] [address] Dr. Julisa Lowe Platelet mean volume (Bld) [Entitic vol] 8.4 fL Critically low 9.5-13.5 [facility] Comment on above: Performed By: #### A 1C #### [facility] [address] [place] [address] Dr. Julisa Lowe PLT 301 103/ul Normal 150-450 [facility] Comment on above: Performed By: #### A 1C #### [facility] [address] [place] [address] Dr. Julisa Lowe RBC 4.52 106/ul Normal 4.20-5.40 [facility] Comment on above: Performed By: #### A 1C #### [facility] [address] [place] [address] Dr. Julisa Lowe WBC 10.4 103/ul Normal 4.0-11.0 [facility] Comment on above: Performed By: #### A 1C #### [facility] [address] [place] [address] Dr. Julisa Lowe POINT OF CARE GLUCOSEon 12-12 0-2021 Glucose [Mass/Vol] 183 mg/dL Critically high 74-106 [facility] Comment on above: Performed By: #### P OCGLUC #### [facility] [address] [place] [address] Dr. Julisa Lowe Glucose [Mass/Vol] 351 mg/dL Critically high 74-106 [facility] Comment on above: Performed By: #### H STROPN #### [facility] [address] [address] [address] Julisa Lowe PROF CHEM 8 (BAS METB)on Anion gap [Moles/Vol] 14.6 mmol/L Normal [facility] Comment on above: Performed By: #### S EDR #### [facility] [address] [address] [address] Julisa Lowe Calcium [Mass/Vol] 8.6 mg/dL Normal 8.5-10.1 [facility] Comment on above: Performed By: #### S EDR #### [facility] [address] [address] [address] Julisa Lowe Chloride [Moles/Vol] 107 mmol/L Normal 98-107 [facility] Comment on above: Performed By: #### S EDR #### [facility] [address] [place] [address] Dr. Julisa Lowe CO2 [Moles/Vol] 24.6 mmol/L Normal 22.0-30.0 [facility] Comment on above: Performed By: #### S EDR #### [facility] [address] [place] [address] Dr. Julisa Lowe Creatinine [Mass/Vol] 0.57 mg/dL Normal 0.52-1.04 [facility] Comment on above: Performed By: #### S EDR #### [facility] [address] [place] [address] Dr. Julisa Lowe EGFR-AF POLISH >60 Normal >=60 [facility] Comment on above: Performed By: #### S EDR #### [facility] [address] [place] [address] Dr. Julisa Lowe EGFR-NON AF POLISH >60 Normal >=60 [facility] Comment on above: Performed By: #### S EDR #### [facility] [address] [place] [address] Dr. Julisa Lowe Glucose [Mass/Vol] 189 mg/dL Critically high 74-106 [facility] Comment on above: Performed By: #### S EDR #### [facility] [address] [address] [address] Julisa Lowe Potassium [Moles/Vol] 4.2 mmol/L Normal 3.4-5.0 [facility] Comment on above: Performed By: #### S EDR #### [facility] [address] [address] [address] Julisa Lowe Sodium [Moles/Vol] 142 mmol/L Normal 137-145 [facility] Comment on above: Performed By: #### S EDR #### [facility] [address] [address] [address] Julisa Lowe Urea nitrogen [Mass/Vol] 16.0 mg/dL Normal 7.0-18.0 [facility] Comment on above: Performed By: #### S EDR #### [facility] [address] [address] [address] Julisa Lowe Urea nitrogen/Creatinine [Mass ratio] 28.1 mg/mg Normal [facility] Comment on above: Performed By: #### S EDR #### [facility] [address] [address] [address] Julisa Lowe BNPon 12-20-2021 Natriuretic peptide B (Bld) [Mass/Vol] 880.0 pg/mL Normal <=900.0 [facility] Comment on above: Performed By: #### H STROPN #### [facility] [address] [place] [address] Dr. Julisa Lowe CARDIAC TRUONG ADMITon 022 CK <20 Critically low 30-135 [facility] Comment on above: Performed By: #### H STROPN #### [facility] [address] [place] [address] Dr. Julisa Lowe CK.MB [Mass/Vol] ng/mL Normal <=2.37 [facility] Comment on above: Performed By: #### H STROPN #### [facility] [address] [place] [address] Dr. Julisa Lowe HSTROP 15.1 pg/mL Normal 4.0-35.5 [facility] Comment on above: Result Comment: CUT- OFF POINTS HAVE BEEN ESTABLISHED BASED ON THE FOURTH UNIVERSAL DEFINITIONS OF MYOCARDIAL INFARCTION. THE UPPER REFERENCE LIMIT (URL) OF TROPONIN, DEFINED THE 99TH PERCENTILE OF cTnI DISTRIBUTION IN A REFERENCE POPULATION, HAS BEEN CONFIRMED THE DECISION THRESHOLD FOR CO DIAGNOSIS. Performed By: #### H STROPN #### [facility] [address] [place] [address] Dr. Julisa Lowe RAJ 24.0 ng/mL Normal <=61.5 [facility] Comment on above: Performed By: #### H STROPN #### [facility] [address] [place] [address] Dr. Julisa Lowe CBC AUTO DIFFon 12-20-2021 BASO # 0.1 103/ul Normal 0.0-0.1 [facility] Comment on above: Performed By: #### S EDR #### [facility] [address] [place] [address] Dr. Julisa Lowe Basophils/100 WBC (Bld) 0.5 % Normal 0.2-2.0 [facility] Comment on above: Performed By: #### S EDR #### [facility] [address] [place] [address] Dr. Julisa Lowe EO # 0.1 103/ul Normal 0.0-0.7 [facility] Comment on above: Performed By: #### S EDR #### [facility] [address] [place] [address] Dr. Julisa Lowe Eosinophils/100 WBC (Bld) 1.0 % Normal 0.9-7.0 [facility] Comment on above: Performed By: #### S EDR #### [facility] [address] [place] [address] Dr. Julisa Lowe Erythrocyte distribution width (RBC) [Ratio] 19.8 % Critically high 11.0-15.0 [facility] Comment on above: Result Comment: slig ht poikilocytosis, moderate anisocytosis, Performed By: #### S EDR #### [facility] [address] [place] [address] Dr. Julisa Lowe Hematocrit (Bld) [Volume fraction] 32.7 % Critically low 36.0-48.0 [facility] Comment on above: Performed By: #### S EDR #### [facility] [address] [place] [address] Dr. Julisa Lowe Hemoglobin (Bld) [Mass/Vol] 9.6 g/dL Critically low 12.0-16.0 [facility] Comment on above: Performed By: #### S EDR #### [facility] [address] [place] [address] Dr. Julisa Lowe IG # 0.07 10e3/ul Critically high 0.00-0.03 [facility] Comment on above: Performed By: #### S EDR #### [facility] [address] [place] [address] Dr. Julisa Lowe IG % 0.7 % Critically high 0.0-0.5 [facility] Comment on above: Performed By: #### S EDR #### [facility] [address] [place] [address] Dr. Julisa Lowe LYMPH # 3.1 103/ul Normal 1.2-3.8 [facility] Comment on above: Performed By: #### S EDR #### [facility] [address] [place] [address] Dr. Julisa Lowe Lymphocytes/100 WBC (Bld) 29.7 % Normal 20.5-60.0 [facility] Comment on above: Performed By: #### S EDR #### [facility] [address] [place] [address] Dr. Julisa Lowe MANUAL DIFF REQ NO Normal [facility] Comment on above: Performed By: #### S EDR #### [facility] [address] [place] [address] Dr. Julisa Lowe MCH (RBC) [Entitic mass] 20.5 pg Critically low 26.7-34.0 [facility] Comment on above: Performed By: #### S EDR #### [facility] [address] [place] [address] Dr. Julisa Lowe MCHC (RBC) [Mass/Vol] 29.4 g/dL Critically low 29.9-35.2 [facility] Comment on above: Performed By: #### S EDR #### [facility] [address] [address] [address] Julisa Lowe MCV (RBC) [Entitic vol] 69.9 fL Critically low 81.0-99.0 [facility] Comment on above: Result Comment: few ovalocytes, moderate hypochromasia Performed By: #### S EDR #### [facility] [address] [address] [address] Julisa Lowe MONO # 0.6 103/ul Normal 0.3-0.8 [facility] Comment on above: Performed By: #### S EDR #### [facility] [address] [place] [address] Dr. Julisa Lowe Monocytes/100 WBC (Bld) 5.6 % Normal 1.7-12.0 [facility] Comment on above: Performed By: #### S EDR #### [facility] [address] [place] [address] Dr. Julisa Lowe NEUT # 6.5 103/ul Normal 1.4-6.5 [facility] Comment on above: Performed By: #### S EDR #### [facility] [address] [place] [address] Dr. Julisa Lowe Neutrophils/100 WBC (Bld) 62.5 % Normal 43.0-75.0 [facility] Comment on above: Performed By: #### S EDR #### [facility] [address] [place] [address] Dr. Julisa Lowe Platelet mean volume (Bld) [Entitic vol] 8.8 fL Critically low 9.5-13.5 [facility] Comment on above: Performed By: #### S EDR #### [facility] [address] [place] [address] Dr. Julisa Loew PLT 280 103/ul Normal 150-450 [facility] Comment on above: Performed By: #### S EDR #### [facility] [address] [place] [address] Dr. Julisa Lowe RBC 4.68 106/ul Normal 4.20-5.40 [facility] Comment on above: Performed By: #### S EDR #### [facility] [address] [place] [address] Dr. Julisa Lowe WBC 10.5 103/ul Normal 4.0-11.0 [facility] Comment on above: Performed By: #### S EDR #### [facility] [address] [place] [address] Dr. Julisa Lowe Covid-19 PCR ([facility])on SARS-CoV-2 (COVID-19) RNA CHALINO+probe Ql (Unsp spec) Not detected Normal NOT DETECTED [facility] Comment on above: Result Comment: When [...] for this test is supported by the [place] of [employer]'s declaration that [...] used). Performed By: #### P OCGLUC #### [facility] [address] [place] [address] Dr. Julisa Lowe ER URINE PROFILEon 2 Bilirubin Ql (U) Negative Normal NEGATIVE [facility] Comment on above: Performed By: #### S EDR #### [facility] [address] [place] [address] Dr. Julisa Lowe Clarity (U) SL CLOUDY Abnormal CLEAR [facility] Comment on above: Performed By: #### S EDR #### [facility] [address] [place] [address] Dr. Julisa Lowe Color (U) LT. YELLOW Normal YELLOW [facility] Comment on above: Performed By: #### S EDR #### [facility] [address] [place] [address] Dr. Julisa DAY A micrscopic examination will be performed if indicated. Normal [facility] Comment on above: Performed By: #### S EDR #### [facility] [address] [place] [address] Dr. Julisa Lowe Glucose Ql (U) Negative Normal NEGATIVE [facility] Comment on above: Performed By: #### S EDR #### [facility] [address] [place] [address] Dr. Julisa Lowe Hemoglobin Ql (U) Negative Normal NEGATIVE [facility] Comment on above: Performed By: #### S EDR #### [facility] [address] [place] [address] Dr. Julisa Lowe Ketones Ql (U) Negative Normal NEGATIVE [facility] Comment on above: Performed By: #### S EDR #### [facility] [address] [place] [address] Dr. Julisa Lowe LEUKOCYTES TRACE Abnormal NEGATIVE [facility] Comment on above: Performed By: #### S EDR #### [facility] [address] [place] [address] Dr. Julisa Lowe Nitrite Ql (U) Negative Normal NEGATIVE [facility] Comment on above: Performed By: #### S EDR #### [facility] [address] [place] [address] Dr. Julisa Lowe pH (U) 7.5 [pH] Normal 5-9 [facility] Comment on above: Performed By: #### S EDR #### [facility] [address] [place] [address] Dr. Julisa Lowe Protein (U) [Mass/Vol] 100 mg/dL Abnormal NEGAT CRISTOPHRE/ TRACE [facility] Comment on above: Performed By: #### S EDR #### [facility] [address] [place] [address] Dr. Julisa Lowe SPEC GRAVITY 1.020 Normal 1.005-<=1.025 [facility] Comment on above: Performed By: #### S EDR #### [facility] [address] [place] [address] Dr. Julisa Lowe UR MICRO IND INDICATED Normal [facility] Comment on above: Performed By: #### S EDR #### [facility] [address] [place] [address] Dr. Julisa Lowe Urobilinogen Qn (U) 0.2 {Shirley'U}/dL Normal 0.2 - 1. 0 [facility] Comment on above: Performed By: #### S EDR #### [facility] [address] [place] [address] Dr. Julisa Lowe POINT OF CARE GLUCOSEon 04-0 Glucose [Mass/Vol] 145 mg/dL Critically high 74-106 [facility] Comment on above: Performed By: #### S EDR #### [facility] [address] [place] [address] Dr. Julisa Lowe PROF 14(COMP METB)on 022 Albumin [Mass/Vol] 3.0 g/dL Critically low 3.4-5.0 [facility] Comment on above: Performed By: #### H STROPN #### [facility] [address] [place] [address] Dr. Julisa Lowe Albumin/Globulin [Mass ratio] 1.0 {ratio} Normal [facility] Comment on above: Performed By: #### H STROPN #### [facility] [address] [place] [address] Dr. Julisa Lowe ALP [Catalytic activity/Vol] 110 U/L Normal 46-116 [facility] Comment on above: Performed By: #### H STROPN #### [facility] [address] [place] [address] Dr. Julisa Lowe ALT [Catalytic activity/Vol] 18 U/L Normal 14-59 [facility] Comment on above: Performed By: #### H STROPN #### [facility] [address] [address] [address] Julisa Lowe Anion gap [Moles/Vol] 13.4 mmol/L Normal [facility] Comment on above: Performed By: #### H STROPN #### [facility] [address] [address] [address] Julisa Lowe AST [Catalytic activity/Vol] 8 U/L Critically low 15-37 [facility] Comment on above: Performed By: #### H STROPN #### [facility] [address] [place] [address] Dr. Julisa Lowe Bilirubin [Mass/Vol] 0.3 mg/dL Normal 0.2-1.3 [facility] Comment on above: Performed By: #### H STROPN #### [facility] [address] [place] [address] Dr. Julisa Lowe Calcium [Mass/Vol] 8.5 mg/dL Normal 8.5-10.1 [facility] Comment on above: Performed By: #### H STROPN #### [facility] [address] [place] [address] Dr. Julisa Lowe Chloride [Moles/Vol] 106 mmol/L Normal 98-107 [facility] Comment on above: Performed By: #### H STROPN #### [facility] [address] [place] [address] Dr. Julisa Lowe CO2 [Moles/Vol] 26.3 mmol/L Normal 22.0-30.0 [facility] Comment on above: Performed By: #### H STROPN #### [facility] [address] [place] [address] Dr. Julisa Lowe Creatinine [Mass/Vol] 0.52 mg/dL Normal 0.52-1.04 [facility] Comment on above: Performed By: #### H STROPN #### [facility] [address] [place] [address] Dr. Julisa Lowe EGFR-AF POLISH >60 Normal >=60 [facility] Comment on above: Performed By: #### H STROPN #### [facility] [address] [place] [address] Dr. Julisa Lowe EGFR-NON AF POLISH >60 Normal >=60 [facility] Comment on above: Performed By: #### H STROPN #### [facility] [address] [place] [address] Dr. Julisa Lowe Globulin (S) [Mass/Vol] 3.0 g/dL Normal [facility] Comment on above: Performed By: #### H STROPN #### [facility] [address] [address] [address] Julisa Lowe Glucose [Mass/Vol] 147 mg/dL Critically high 74-106 [facility] Comment on above: Performed By: #### H STROPN #### [facility] [address] [place] [address] Dr. Julisa Lowe Potassium [Moles/Vol] 3.7 mmol/L Normal 3.4-5.0 [facility] Comment on above: Performed By: #### H STROPN #### [facility] [address] [place] [address] Dr. Julisa Lowe Protein [Mass/Vol] 6.0 g/dL Critically low 6.1-8.2 [facility] Comment on above: Performed By: #### H STROPN #### [facility] [address] [place] [address] Dr. Julisa Lowe Sodium [Moles/Vol] 142 mmol/L Normal 137-145 [facility] Comment on above: Performed By: #### H STROPN #### [facility] [address] [place] [address] Dr. Julisa Lowe Urea nitrogen [Mass/Vol] 13.0 mg/dL Normal 7.0-18.0 [facility] Comment on above: Performed By: #### H STROPN #### [facility] [address] [place] [address] Dr. Julisa Lowe Urea nitrogen/Creatinine [Mass ratio] 25.0 mg/mg Normal [facility] Comment on above: Performed By: #### H STROPN #### [facility] [address] [place] [address] Dr. Julisa Lowe PROTIMEon 12-20-2021 INR Coag (PPP) [Relative time] 0.94 {INR} Normal [facility] Comment on above: Performed By: #### S EDR #### [facility] [address] [place] [address] Dr. Julisa Lowe INR GUIDELINES SEE BELOW Normal [facility] Comment on above: Result Comment: NHI RED INR: 2.0 - 3.0 CONDITIONS NOT LISTED BELOW 2.5 - 3.5 FOR PROSTHETIC HEART VALVE REPLACEMENT 2.5 - 3.5 RECURRENT THROMBOSIS Performed By: #### S EDR #### [facility] [address] [address] [address] Julisa Lowe PT Coag (PPP) [Time] 10.2 s Normal 9.0-11.6 [facility] Comment on above: Performed By: #### S EDR #### [facility] [address] [place] [address] Dr. Julisa Lowe PTTon 12-20-2021 aPTT Coag (Bld) [Time] 21.7 s Critically low 22.3-36.2 [facility] Comment on above: Performed By: #### S EDR #### [facility] [address] [place] [address] Dr. Julisa Lowe TROPONIN, HIGH SENSITIVITYon 12-20-2021 HSTROP 16.3 pg/mL Normal 4.0-35.5 [facility] Comment on above: Result Comment: CUT- OFF POINTS HAVE BEEN ESTABLISHED BASED ON THE FOURTH UNIVERSAL DEFINITIONS OF MYOCARDIAL INFARCTION. THE UPPER REFERENCE LIMIT (URL) OF TROPONIN, DEFINED THE 99TH PERCENTILE OF cTnI DISTRIBUTION IN A REFERENCE POPULATION, HAS BEEN CONFIRMED THE DECISION THRESHOLD FOR CO DIAGNOSIS. Performed By: #### P OCGLUC #### [facility] [address] [place] [address] Dr. Julisa Lowe HSTROP 16.8 pg/mL Normal 4.0-35.5 [facility] Comment on above: Result Comment: CUT- OFF POINTS HAVE BEEN ESTABLISHED BASED ON THE FOURTH UNIVERSAL DEFINITIONS OF MYOCARDIAL INFARCTION. THE UPPER REFERENCE LIMIT (URL) OF TROPONIN, DEFINED THE 99TH PERCENTILE OF cTnI DISTRIBUTION IN A REFERENCE POPULATION, HAS BEEN CONFIRMED THE DECISION THRESHOLD FOR CO DIAGNOSIS. Performed By: #### H STROPN #### [facility] [address] [place] [address] Dr. Julisa Lowe URINE MICROSCOPIC ONLYon BACTERIA LARGE Abnormal NONE SEEN [facility] Comment on above: Performed By: #### S EDR #### [facility] [address] [place] [address] Dr. Julisa Lowe Bacteria identified Cx Nom (U) INDICATED Normal [facility] Comment on above: Performed By: #### S EDR #### [facility] [address] [place] [address] Dr. Julisa Lowe CAST NONE SEEN Normal NONE SEEN [facility] Comment on above: Performed By: #### S EDR #### [facility] [address] [place] [address] Dr. Julisa Lowe Crystals LM Nom (Urine sed) NONE SEEN Normal NONE SEEN [facility] Comment on above: Performed By: #### S EDR #### [facility] [address] [place] [address] Dr. Julisa Lowe Epithelial cells LM Ql (Urine sed) FEW Abnormal NONE SEEN /RARE [facility] Comment on above: Performed By: #### S EDR #### [facility] [address] [place] [address] Dr. Julisa Lowe MUCOUS NONE SEEN Normal NONE SEEN [facility] Comment on above: Performed By: #### S EDR #### [facility] [address] [place] [address] Dr. Julisa Lowe RBC 0-2 Normal 0-2 [facility] Comment on above: Performed By: #### S EDR #### [facility] [address] [place] [address] Dr. Julisa Lowe WBC 10-20 Abnormal NONE SEEN [facility] Comment on above: Performed By: #### S EDR #### [facility] [address] [place] [address] Dr. Julisa Lowe XR CHEST 1 Von [...] NGOZI NELSON Date: 2021-12-20 15:58 Normal [facility] JOSEE by IFAon 12-18-2021 Antinuclear Antibodies, IFA Negative Normal [facility] Comment on above: Result Comment: Nega tive <1:80 Borderline 1:80 Positive >1:80 ICAP nomenclature: AC-0 For more information about Hep-2 cell patterns use ANApatterns.org, the official website for the International Consensus on Antinuclear Antibody (JOSEE) Patterns (ICAP). Performed By: #### H STROPN #### [facility] [address] [place] [address] Dr. Julisa Lowe CBC AUTO DIFFon 12-15-2021 BASO # 0.0 103/ul Normal 0.0-0.1 [facility] Comment on above: Performed By: #### A 1C #### [facility] [address] [place] [address] Dr. Julisa Lowe Basophils/100 WBC (Bld) 0.3 % Normal 0.2-2.0 [facility] Comment on above: Performed By: #### A 1C #### [facility] [address] [place] [address] Dr. Julisa Lowe EO # 0.1 103/ul Normal 0.0-0.7 [facility] Comment on above: Performed By: #### A 1C #### [facility] [address] [place] [address] Dr. Julisa Lowe Eosinophils/100 WBC (Bld) 0.9 % Normal 0.9-7.0 [facility] Comment on above: Performed By: #### A 1C #### [facility] [address] [place] [address] Dr. Julisa Lowe Erythrocyte distribution width (RBC) [Ratio] 19.6 % Critically high 11.0-15.0 [facility] Comment on above: Performed By: #### A 1C #### [facility] [address] [place] [address] Dr. Julisa Lowe Hematocrit (Bld) [Volume fraction] 33.8 % Critically low 36.0-48.0 [facility] Comment on above: Performed By: #### A 1C #### [facility] [address] [place] [address] Dr. Julisa Lowe Hemoglobin (Bld) [Mass/Vol] 9.7 g/dL Critically low 12.0-16.0 [facility] Comment on above: Performed By: #### A 1C #### [facility] [address] [place] [address] Dr. Julisa Lowe IG # 0.13 10e3/ul Critically high 0.00-0.03 [facility] Comment on above: Performed By: #### A 1C #### [facility] [address] [place] [address] Dr. Julisa Lowe IG % 0.9 % Critically high 0.0-0.5 [facility] Comment on above: Performed By: #### A 1C #### [facility] [address] [place] [address] Dr. Julisa Lowe LYMPH # 3.5 103/ul Normal 1.2-3.8 [facility] Comment on above: Performed By: #### A 1C #### [facility] [address] [place] [address] Dr. Jluisa Lowe Lymphocytes/100 WBC (Bld) 25.4 % Normal 20.5-60.0 [facility] Comment on above: Performed By: #### A 1C #### [facility] [address] [place] [address] Dr. Julisa Lowe MANUAL DIFF REQ NO Normal [facility] Comment on above: Performed By: #### A 1C #### [facility] [address] [place] [address] Dr. Julisa Lowe MCH (RBC) [Entitic mass] 20.4 pg Critically low 26.7-34.0 [facility] Comment on above: Performed By: #### A 1C #### [facility] [address] [address] [address] Julisa Lowe MCHC (RBC) [Mass/Vol] 28.7 g/dL Critically low 29.9-35.2 [facility] Comment on above: Performed By: #### A 1C #### [facility] [address] [address] [address] Julisa Lowe MCV (RBC) [Entitic vol] 71.2 fL Critically low 81.0-99.0 [facility] Comment on above: Performed By: #### A 1C #### [facility] [address] [address] [address] Julisa Lowe MONO # 0.7 103/ul Normal 0.3-0.8 [facility] Comment on above: Performed By: #### A 1C #### [facility] [address] [place] [address] Dr. Julisa Lowe Monocytes/100 WBC (Bld) 5.0 % Normal 1.7-12.0 [facility] Comment on above: Performed By: #### A 1C #### [facility] [address] [address] [address] Julisa Lowe NEUT # 9.3 103/ul Critically high 1.4-6.5 [facility] Comment on above: Performed By: #### A 1C #### [facility] [address] [place] [address] Dr. Julisa Lowe Neutrophils/100 WBC (Bld) 67.5 % Normal 43.0-75.0 [facility] Comment on above: Performed By: #### A 1C #### [facility] [address] [address] [address] Julisa Lowe Platelet mean volume (Bld) [Entitic vol] 8.2 fL Critically low 9.5-13.5 [facility] Comment on above: Performed By: #### A 1C #### [facility] [address] [address] [address] Julisa Lowe PLT 301 103/ul Normal 150-450 [facility] Comment on above: Performed By: #### A 1C #### [facility] [address] [place] [address] Dr. Julisa Lowe RBC 4.75 106/ul Normal 4.20-5.40 [facility] Comment on above: Result Comment: HYPO CHROMIA 3+ Performed By: #### A 1C #### [facility] [address] [place] [address] Dr. Julisa Lowe WBC 13.8 103/ul Critically high 4.0-11.0 [facility] Comment on above: Performed By: #### A 1C #### [facility] [address] [place] [address] Dr. Julisa Lowe CRPon 12-15-2021 CRP [Mass/Vol] mg/L Normal <=1.0 [facility] Comment on above: Performed By: #### C MP, CRP, TSH #### [facility] [address] [place] [address] Dr. Julisa Lowe FREE T4on 12-15-2021 Free T4 [Mass/Vol] 1.04 ng/dL Normal 0.78-2.19 [facility] Comment on above: Performed By: #### S EDR #### [facility] [address] [place] [address] Dr. Julisa Lowe PROF 14(COMP METB)on 022 Albumin [Mass/Vol] 3.4 g/dL Normal 3.4-5.0 [facility] Comment on above: Performed By: #### C MP, CRP, TSH #### [facility] [address] [place] [address] Dr. Julisa Lowe Albumin/Globulin [Mass ratio] 1.1 {ratio} Normal [facility] Comment on above: Performed By: #### C MP, CRP, TSH #### [facility] [address] [place] [address] Dr. Julisa Lowe ALP [Catalytic activity/Vol] 120 U/L Critically high 46-116 [facility] Comment on above: Performed By: #### C MP, CRP, TSH #### [facility] [address] [place] [address] Dr. Julisa Lowe ALT [Catalytic activity/Vol] 28 U/L Normal 14-59 [facility] Comment on above: Performed By: #### C MP, CRP, TSH #### [facility] [address] [place] [address] Dr. Julisa Lowe Anion gap [Moles/Vol] 12.7 mmol/L Normal [facility] Comment on above: Performed By: #### C MP, CRP, TSH #### [facility] [address] [place] [address] Dr. Julisa Lowe AST [Catalytic activity/Vol] 13 U/L Critically low 15-37 [facility] Comment on above: Performed By: #### C MP, CRP, TSH #### [facility] [address] [place] [address] Dr. Julisa Lowe Bilirubin [Mass/Vol] 0.3 mg/dL Normal 0.2-1.3 [facility] Comment on above: Performed By: #### C MP, CRP, TSH #### [facility] [address] [place] [address] Dr. Julisa Lowe Calcium [Mass/Vol] 8.4 mg/dL Critically low 8.5-10.1 [facility] Comment on above: Performed By: #### C MP, CRP, TSH #### [facility] [address] [place] [address] Dr. Julisa Lowe Chloride [Moles/Vol] 106 mmol/L Normal 98-107 [facility] Comment on above: Performed By: #### C MP, CRP, TSH #### [facility] [address] [place] [address] Dr. Julisa Lowe CO2 [Moles/Vol] 25.8 mmol/L Normal 22.0-30.0 [facility] Comment on above: Performed By: #### C MP, CRP, TSH #### [facility] [address] [place] [address] Dr. Julisa Lowe Creatinine [Mass/Vol] 0.68 mg/dL Normal 0.52-1.04 [facility] Comment on above: Performed By: #### C MP, CRP, TSH #### [facility] [address] [address] [address] Julisa Lowe EGFR-AF POLISH >60 Normal >=60 [facility] Comment on above: Performed By: #### C MP, CRP, TSH #### [facility] [address] [address] [address] Julisa Lowe EGFR-NON AF POLISH >60 Normal >=60 [facility] Comment on above: Performed By: #### C MP, CRP, TSH #### [facility] [address] [address] [address] Julisa Lowe Globulin (S) [Mass/Vol] 3.2 g/dL Normal [facility] Comment on above: Performed By: #### C MP, CRP, TSH #### [facility] [address] [place] [address] Dr. Julisa Lowe Glucose [Mass/Vol] 222 mg/dL Critically high 74-106 T [facility] Comment on above: Performed By: #### C MP, CRP, TSH #### [facility] [address] [place] [address] Dr. Julisa Loew Potassium [Moles/Vol] 3.5 mmol/L Normal 3.4-5.0 [facility] Comment on above: Performed By: #### C MP, CRP, TSH #### [facility] [address] [place] [address] Dr. Julisa Lowe Protein [Mass/Vol] 6.6 g/dL Normal 6.1-8.2 [facility] Comment on above: Performed By: #### C MP, CRP, TSH #### [facility] [address] [place] [address] Dr. Julisa Lowe Sodium [Moles/Vol] 141 mmol/L Normal 137-145 [facility] Comment on above: Performed By: #### C MP, CRP, TSH #### [facility] [address] [place] [address] Dr. Julisa Lowe Urea nitrogen [Mass/Vol] 14.0 mg/dL Normal 7.0-18.0 [facility] Comment on above: Performed By: #### C MP, CRP, TSH #### [facility] [address] [place] [address] Dr. Julisa Lowe Urea nitrogen/Creatinine [Mass ratio] 20.6 mg/mg Normal [facility] Comment on above: Performed By: #### C MP, CRP, TSH #### [facility] [address] [place] [address] Dr. Julisa Lowe [facility] SED RATE 10 mm/hr Normal <=30 [facility] Comment on above: Performed By: #### S EDR #### [facility] [address] [place] [address] Dr. Julisa Lowe TSHon 12-15-2021 TSH 0.747 uIU/mL Normal 0.470-4.680 [facility] Comment on above: Performed By: #### C MP, CRP, TSH #### [facility] [address] [place] [address] Dr. Julisa Lowe TSH RANGE SEE BELOW Normal [facility] Comment on above: Result Comment: <0.3 4 UIU/ml HYPERTHYROID 0.34-5.60 UIU/ml EUTHYROID >5.60 UIU/ml HYPOTHYROID Performed By: #### C MP, CRP, TSH #### [facility] [address] [place] [address] Dr. Julisa Lowe ECHOCARDIO M/2D COMPLETEon 0 12-04-2021 ECHOCARDIO M/2D COMPLETE Patient: ROBINA RON Exam Date: 12/04/2021 : 1950 Gender:F Ordering : SHAIKH Chaparrita SPARKS . Admission #: [id number] Family : Order #: [id number] CLICK HERE TO VIEW EXAM ECHOCARDIOGRAM REPORT [...] Area(A4C): 21.50 cm2 Left Atrium Systolic Volume(A2C): 40435 mm3 Left Atrium Systolic Volume(A4C): 90052 mm3 Mitral Valve MV E to A [...] Fuchs M.D. on 12/04/2021 at 18:31 Normal [facility] CBC AUTO DIFFon 09-10-2021 BASO # 0.1 103/ul Normal 0.0-0.1 [facility] Comment on above: Performed By: #### S EDR #### [facility] [address] [address] [address] Julisa Lowe Basophils/100 WBC (Bld) 0.4 % Normal 0.2-2.0 [facility] Comment on above: Performed By: #### S EDR #### [facility] [address] [address] [address] Julisa Lowe EO # 0.2 103/ul Normal 0.0-0.7 [facility] Comment on above: Performed By: #### S EDR #### [facility] [address] [address] [address] Julisa Lowe Eosinophils/100 WBC (Bld) 1.2 % Normal 0.9-7.0 [facility] Comment on above: Performed By: #### S EDR #### [facility] [address] [address] [address] Julisa Lowe Erythrocyte distribution width (RBC) [Ratio] 17.8 % Critically high 11.0-15.0 [facility] Comment on above: Performed By: #### S EDR #### [facility] [address] [place] [address] Dr. Julisa Lowe Hematocrit (Bld) [Volume fraction] 36.6 % Normal 36.0-48.0 [facility] Comment on above: Performed By: #### S EDR #### [facility] [address] [address] [address] Julisa Lowe Hemoglobin (Bld) [Mass/Vol] 10.1 g/dL Critically low 12.0-16.0 [facility] Comment on above: Performed By: #### S EDR #### [facility] [address] [address] [address] Julisa Lowe IG # 0.08 10e3/ul Critically high 0.00-0.03 [facility] Comment on above: Performed By: #### S EDR #### [facility] [address] [address] [address] Julisa Lowe IG % 0.6 % Critically high 0.0-0.5 [facility] Comment on above: Performed By: #### S EDR #### [facility] [address] [address] [address] Julisa Lowe LYMPH # 3.1 103/ul Normal 1.2-3.8 [facility] Comment on above: Performed By: #### S EDR #### [facility] [address] [address] [address] Julisa Lowe Lymphocytes/100 WBC (Bld) 23.2 % Normal 20.5-60.0 [facility] Comment on above: Performed By: #### S EDR #### [facility] [address] [address] [address] Julisa Lowe MANUAL DIFF REQ NO Normal [facility] Comment on above: Performed By: #### S EDR #### [facility] [address] [address] [address] Julisa Lowe MCH (RBC) [Entitic mass] 20.9 pg Critically low 26.7-34.0 [facility] Comment on above: Performed By: #### S EDR #### [facility] [address] [address] [address] Julisa Lowe MCHC (RBC) [Mass/Vol] 27.6 g/dL Critically low 29.9-35.2 [facility] Comment on above: Performed By: #### S EDR #### [facility] [address] [address] [address] Julisa Lowe MCV (RBC) [Entitic vol] 75.8 fL Critically low 81.0-99.0 [facility] Comment on above: Performed By: #### S EDR #### [facility] [address] [address] [address] Julisa Lowe MONO # 0.7 103/ul Normal 0.3-0.8 [facility] Comment on above: Performed By: #### S EDR #### [facility] [address] [address] [address] Julisa Lowe Monocytes/100 WBC (Bld) 5.1 % Normal 1.7-12.0 [facility] Comment on above: Performed By: #### S EDR #### [facility] [address] [place] [address] Dr. Julisa Lowe NEUT # 9.3 103/ul Critically high 1.4-6.5 [facility] Comment on above: Performed By: #### S EDR #### [facility] [address] [place] [address] Dr. Julisa Lowe Neutrophils/100 WBC (Bld) 69.5 % Normal 43.0-75.0 [facility] Comment on above: Performed By: #### S EDR #### [facility] [address] [place] [address] Dr. Julisa Lowe Platelet mean volume (Bld) [Entitic vol] 8.2 fL Critically low 9.5-13.5 [facility] Comment on above: Performed By: #### S EDR #### [facility] [address] [place] [address] Dr. Julisa Lowe PLT 303 103/ul Normal 150-450 [facility] Comment on above: Performed By: #### S EDR #### [facility] [address] [place] [address] Dr. Julisa Lowe RBC 4.83 106/ul Normal 4.20-5.40 [facility] Comment on above: Performed By: #### S EDR #### [facility] [address] [address] [address] Julisa Lowe WBC 13.4 103/ul Critically high 4.0-11.0 [facility] Comment on above: Performed By: #### S EDR #### [facility] [address] [address] [address] Julisa Lowe GLYCOHEMOGLOBIN A1Con 2020 ADA RECOMMENDATION ADA THERAPEUTIC TARGET 6.0 - 7.0 ACTION SUGGESTED > 7.0 Normal [facility] Comment on above: Performed By: #### A 1C #### [facility] [address] [address] [address] Julisa Lowe Glucose [Mass/Vol] 151 mg/dL Normal [facility] Comment on above: Performed By: #### A 1C #### [facility] [address] [address] [address] Julisa Lowe HbA1c (Bld) [Mass fraction] 6.9 % Critically high <=6.0 [facility] Comment on above: Performed By: #### A 1C #### [facility] [address] [address] [address] Julisa Lowe LIPID PROFILEon 09-10-2021 CHOL-HDL RATIO NORM SEE BELOW Normal [facility] Comment on above: Result Comment: 3.3 - 4.4 LOW RISK 4.4 - 7.1 AVERAGE RISK 7.1 - 11.0 MODERATE RISK >11.0 HIGH RISK Performed By: #### A 1C #### [facility] [address] [address] [address] Julisa Lowe Cholesterol [Mass/Vol] 121 mg/dL Normal <=200 [facility] Comment on above: Performed By: #### A 1C #### [facility] [address] [address] [address] Julisa Lowe Cholesterol in HDL [Mass/Vol] 55 mg/dL Normal [facility] Comment on above: Performed By: #### A 1C #### [facility] [address] [address] [address] Julisa Lowe Cholesterol in LDL [Mass/Vol] 46.8 mg/dL Normal [facility] Comment on above: Performed By: #### A 1C #### [facility] [address] [place] [address] Dr. Julisa Lowe Cholesterol.total/Chol esterol in HDL [Mass ratio] 2.2 {ratio} Normal [facility] Comment on above: Performed By: #### A 1C #### [facility] [address] [address] [address] Julisa Lowe HDL NORMAL > or = 60 mg/dl - LO W CARDIOVASCULAR RISK <40 mg/dl - HIGH CARDIOVASCULAR RISK Normal [facility] Comment on above: Performed By: #### A 1C #### [facility] [address] [place] [address] Dr. Julisa Lowe LDL CALC NORMAL SEE BELOW Normal [facility] Comment on above: Result Comment: <100 mg/dl OPTIMAL 100 - 129 mg/dl NEAR OR ABOVE OPTIMAL 130 - 159 mg/dl BORDERLINE HIGH 160 - 189 mg/dl HIGH >190 mg/dl VERY HIGH Performed By: #### A 1C #### [facility] [address] [place] [address] Dr. Julisa Lowe Triglyceride [Mass/Vol] 96 mg/dL Normal <=150 [facility] Comment on above: Performed By: #### A 1C #### [facility] [address] [place] [address] Dr. Julisa Lowe VLDL CALC 19.2 mg/dL Normal [facility] Comment on above: Performed By: #### A 1C #### [facility] [address] [place] [address] Dr. Julisa Lowe MICROALBUMIN, RAND URon 08-14 mALB 33.4 mg/L Critically high <=30.0 [facility] Comment on above: Performed By: #### S EDR #### [facility] [address] [place] [address] Dr. Julisa Lowe PROF 14(COMP METB)on 021 Albumin [Mass/Vol] 3.4 g/dL Critically low 3.5-5.0 [facility] Comment on above: Performed By: #### A 1C #### [facility] [address] [address] [address] Julisa Lowe Albumin/Globulin [Mass ratio] 1.3 {ratio} Normal [facility] Comment on above: Performed By: #### A 1C #### [facility] [address] [place] [address] Dr. Julisa Lowe ALP [Catalytic activity/Vol] 74 U/L Normal 38-126 [facility] Comment on above: Performed By: #### A 1C #### [facility] [address] [place] [address] Dr. Julisa Lowe ALT [Catalytic activity/Vol] 11 U/L Normal 9-52 [facility] Comment on above: Performed By: #### A 1C #### [facility] [address] [place] [address] Dr. Julisa Lowe Anion gap [Moles/Vol] 18.2 mmol/L Normal [facility] Comment on above: Performed By: #### A 1C #### [facility] [address] [place] [address] Dr. Julisa Lowe AST [Catalytic activity/Vol] 12 U/L Critically low 14-36 [facility] Comment on above: Performed By: #### A 1C #### [facility] [address] [place] [address] Dr. Julisa Lowe Bilirubin [Mass/Vol] 0.3 mg/dL Normal 0.2-1.3 [facility] Comment on above: Performed By: #### A 1C #### [facility] [address] [place] [address] Dr. Julisa Lowe Calcium [Mass/Vol] 9.3 mg/dL Normal 8.4-10.2 [facility] Comment on above: Performed By: #### A 1C #### [facility] [address] [place] [address] Dr. Julisa Lowe Chloride [Moles/Vol] 105 mmol/L Normal 98-107 [facility] Comment on above: Performed By: #### A 1C #### [facility] [address] [address] [address] Julisa Lowe Creatinine [Mass/Vol] 0.62 mg/dL Normal 0.52-1.04 [facility] Comment on above: Performed By: #### A 1C #### [facility] [address] [address] [address] Julisa Lowe EGFR-AF POLISH >60 Normal >=60 [facility] Comment on above: Performed By: #### A 1C #### [facility] [address] [address] [address] Julisa Lowe EGFR-NON AF POLISH >60 Normal >=60 [facility] Comment on above: Performed By: #### A 1C #### [facility] [address] [place] [address] Dr. Julisa Lowe Globulin (S) [Mass/Vol] 2.7 g/dL Normal [facility] Comment on above: Performed By: #### A 1C #### [facility] [address] [address] [address] Julisa Lowe Glucose [Mass/Vol] 134 mg/dL Critically high 74-106 [facility] Comment on above: Performed By: #### A 1C #### [facility] [address] [place] [address] Dr. Julisa Lowe Potassium [Moles/Vol] 4.3 mmol/L Normal 3.4-5.0 [facility] Comment on above: Performed By: #### A 1C #### [facility] [address] [place] [address] Dr. Julisa Lowe Protein [Mass/Vol] 6.1 g/dL Normal 6.1-8.2 [facility] Comment on above: Performed By: #### A 1C #### [facility] [address] [place] [address] Dr. Julisa Lowe Sodium [Moles/Vol] 142 mmol/L Normal 137-145 [facility] Comment on above: Performed By: #### A 1C #### [facility] [address] [place] [address] Dr. Julisa Lowe Urea nitrogen [Mass/Vol] 23.0 mg/dL Critically high 7.0-17.0 [facility] Comment on above: Performed By: #### A 1C #### [facility] [address] [place] [address] Dr. Julisa Lowe Urea nitrogen/Creatinine [Mass ratio] 37.1 mg/mg Normal [facility] Comment on above: Performed By: #### A 1C #### [facility] [id number] Julisa Lowe Covid-19 PCR ([facility])on 07-16 SARS-CoV-2 (COVID-19) RNA CHALINO+probe Ql (Unsp spec) Not detected Normal NOT DETECTED [facility] Comment on above: Result Comment: This test is not yet approved or cleared by the [place] FDA. When there are no FDA-approved or cleared tests available, and other criteria are met, FDA can make tests available under an emergency access mechanism called an Emergency Use Authorization (EUA). The EUA for this test is supported by the Proposal Review Analyst of Health and Human Service's (HHS's) declaration [...] consistent with SARS-CoV-2. Performed By: #### C VDTB #### [facility] [address] [place], [place] [id number] Dr. Julisa Lowe Vital Signs Date Time Vital Sign Value Performing Clinician Facility 05-09-2024 09:03-0400 Diastolic blood pressure 72 mm[Hg] [facility] 05-09-2024 09:03-0400 Heart rate 90 /min [facility] 05-09-2024 09:03-0400 Systolic blood pressure 109 mm[Hg] Shante Orzech [facility] 02-29-2024 10:35-0400 Blood Pressure Location Shante Orzech [facility] 02-29-2024 10:35-0400 Diastolic blood pressure 78 mm[Hg] Shante Orzech [facility] 02-29-2024 10:35-0400 Heart rate 68 /min Shante Orzech [facility] 02-29-2024 10:35-0400 Respiratory rate 16 /min Shante Orzech [facility] 02-29-2024 10:35-0400 Systolic blood pressure 132 mm[Hg] Shante Orzech [facility] 05-12-2022 15:00-0400 Diastolic blood pressure 49 mm[Hg] Chair Hilda Work Phone: [facility] 05-12-2022 15:00-0400 Heart rate 98 /min Chair Rabun Work Phone: [facility] 05-12-2022 15:00-0400 SaO2% (BldA) [Mass fraction] 95 % Chair Rabun Work Phone: [facility] 05-12-2022 15:00-0400 Systolic blood pressure 137 mm[Hg] Chair Hilda Work Phone: [facility] 05-12-2022 13:30-0400 Body temperature 98.6 [degF] Chair Hilda Work Phone: [facility] 05-12-2022 10:15-0400 Diastolic blood pressure 87 mm[Hg] MD Hood Patel Work Phone: [place] 05-12-2022 10:15-0400 Heart rate 82 /min MD Hood Patel Work Phone: [place] 05-12-2022 10:15-0400 Respiratory rate 16 /min MD Hood Patel Work Phone: [place] 05-12-2022 10:15-0400 SaO2% (BldA) [Mass fraction] 100 % MD Hood Patel Work Phone: [place] 05-12-2022 10:15-0400 Systolic blood pressure 149 mm[Hg] MD Hood Patel Work Phone: [place] 05-12-2022 07:54-0400 Body height 154.94 cm MD Hood Patel Work Phone: [place] 05-12-2022 07:54-0400 Body weight 53.52 kg MD Hood Patel Work Phone: [place] 05-06-2022 14:29-0400 Body temperature 99 [degF] Chair Hilda Work Phone: [facility] 05-06-2022 14:29-0400 Diastolic blood pressure 51 mm[Hg] Chair Hilda Work Phone: [facility] 05-06-2022 14:29-0400 Heart rate 93 /min Chair Hilda Work Phone: [facility] 05-06-2022 14:29-0400 Respiratory rate 16 /min Chair Rabun Work Phone: [facility] 05-06-2022 14:29-0400 SaO2% (BldA) [Mass fraction] 98 % Chair Hilda Work Phone: [facility] 05-06-2022 14:29-0400 Systolic blood pressure 129 mm[Hg] Chair Rabun Work Phone: [facility] 04-28-2022 10:47-0400 Body temperature 98.91 [degF] Chair Rabun Work Phone: [facility] 04-28-2022 10:47-0400 Diastolic blood pressure 64 mm[Hg] Chair Rabun Work Phone: [facility] 04-28-2022 10:47-0400 Heart rate 88 /min Chair Rabun Work Phone: [facility] 04-28-2022 10:47-0400 Respiratory rate 18 /min Chair Rabun Work Phone: [facility] 04-28-2022 10:47-0400 SaO2% (BldA) [Mass fraction] 98 % Chair Hilda Work Phone: [facility] 04-28-2022 10:47-0400 Systolic blood pressure 122 mm[Hg] Chair Hilda Work Phone: [facility] 04-22-2022 14:02-0400 Body temperature 99 [degF] Chair Rabun Work Phone: [facility] 04-22-2022 14:02-0400 Diastolic blood pressure 56 mm[Hg] Chair Hilda Work Phone: [facility] 04-22-2022 14:02-0400 Heart rate 95 /min Chair Rabun Work Phone: [facility] 04-22-2022 14:02-0400 Respiratory rate 18 /min Chair Hilda Work Phone: [facility] 04-22-2022 14:02-0400 SaO2% (BldA) [Mass fraction] 96 % Chair Rabun Work Phone: [facility] 04-22-2022 14:02-0400 Systolic blood pressure 123 mm[Hg] Chair Rabun Work Phone: [facility] 10-14-2021 14:15-0500 Body height 154.94 cm Lawanda Olexa Other [facility] Other 10-14-2021 14:15-0500 Body mass index (BMI) [Ratio] 22.26 kg/m2 Lawanda Medinaxa Other [facility] Other 10-14-2021 14:15-0500 Body weight 53.43 kg Lawanda Medinaxa Other [facility] Other Encounters Encounter Date Encounter Type Care Provider Facility Start: 05-09-2024 End: 05-09-2024 Lab Drop off Shante X Orzech [facility] Start: 05-09-2024 End: 05-09-2024 ambulatory Shante X Orzech Facility:[facility] Start: 05-09-2024 End: 05-09-2024 Patient encounter procedure Shante X Orzech [facility] Start: 05-08-2024 End: 05-09-2024 ambulatory [facility] Start: 05-03-2024 End: 05-03-2024 ambulatory TJ CURRY Not Available Start: 03-14-2024 End: 03-14-2024 ambulatory [facility] Start: 02-29-2024 End: 02-29-2024 ambulatory Shante X Orzech Facility:[facility] Start: 02-29-2024 End: 02-29-2024 Lab Drop off Shante X Orzech [facility] Start: 02-29-2024 End: 02-29-2024 ambulatory Shante X Orzech Facility:[facility] Start: 02-29-2024 End: 02-29-2024 Patient encounter procedure Shante X Orzech [facility] Start: 01-04-2024 End: 01-04-2024 ambulatory SHAIKH CLARE Not Available Start: 08-17-2023 End: 08-17-2023 ambulatory SHAIKH CLARE Not Available Start: 06-22-2022 End: 06-23-2022 ambulatory SHAIKH Ivette SPARKS Facility: Start: 05-12-2022 End: 05-12-2022 ambulatory Chair 15 Hilda Work Phone: Hematology/Oncology Comment on above: Iron deficiency anem ia due to chronic blood loss (Primary Dx) Start: 05-07-2022 End: 05-07-2022 Patient encounter procedure MD Hood Patel Work Phone: [facility] Start: 05-06-2022 End: 05-06-2022 ambulatory Chair 14 Hilda Work Phone: Hematology/Oncology Comment on above: Iron deficiency anem ia due to chronic blood loss (Primary Dx) Start: 04-28-2022 End: 04-28-2022 ambulatory Chair 14 Rabun Work Phone: Hematology/Oncology Comment on above: Iron deficiency anem ia due to chronic blood loss (Primary Dx) Start: 04-22-2022 End: 04-22-2022 ambulatory Chair 13 Rabun Work Phone: Hematology/Oncology Comment on above: Iron deficiency anem ia due to chronic blood loss (Primary Dx) Start: 04-15-2022 End: 04-15-2022 ambulatory Hood Patel Other [facility] Other Start: 04-15-2022 Telephone encounter Hood Obrien ck [facility] G[facility] Start: 04-14-2022 Telephone encounter Christy jefferson RN Work Phone: Hematology/Oncology Comment on above: Critical Results (Gl ucose) Start: 04-14-2022 End: 04-14-2022 ambulatory Chair 15 Hilda Work Phone: Hematology/Oncology Comment on above: Iron deficiency anem ia due to chronic blood loss (Primary Dx); Controlled type 2 diabetes mellitus without complication, unspecified whether mcc insulin use (HCC) Start: 04-08-2022 End: 04-09-2022 ambulatory WATERS H FAWWAD Facility:[facility] Start: 04-06-2022 Telephone encounter Christi lópez MD Work Phone: Cancer [facility] Comment on above: Appointment Confirma tion Start: 02-06-2022 End: 02-07-2022 ambulatory MOHAMAD ALGHOTHANI Facility:[facility] Start: 01-23-2022 End: 01-24-2022 ambulatory WATERS H FAWWAD Facility:[facility] Start: 12-22-2021 End: 12-23-[address] Brayden Keller Facility:[facility] Start: 12-20-2021 End: 12-21-[address] CATHERINE SANCHEZ Facility:[facility] Start: 12-15-2021 End: 12-16-2021 ambulatory MOHAMAD ALGHOTHANI Facility:[facility] Start: 12-04-2021 End: 12-05-2021 ambulatory WATERS H FAWWAD Facility:[facility] Start: 11-28-2021 End: 11-29-2021 ambulatory WATERS H FAWWAD Facility:[facility] Start: 10-22-2021 ambulatory WATERS H FAWWAD Facilit y:[facility] Start: 10-14-2021 End: 10-14-2021 ambulatory Lawanda Alvarez Other [facility] Other Start: 10-14-2021 Office outpatient ne w 30 minutes Lawanda Alvarez [facility] Start: 09-10-2021 End: 09-11-2021 ambulatory WATERS H FAWWAD Facility:[facility] Start: 08-16-2021 Encounter for preprocedural laboratory examination DR LJ BRENNAN [facility] Start: 08-13-2021 End: 08-13-[address] LJ BRENNAN Facility:[facility] Start: 08-12-2021 End: 08-13-2021 ambulatory SHAIKH Ivette SPARKS Facility:[facility] Start: 08-12-2021 End: 08-13-2021 Encounter for preprocedural laboratory examination SHAIKH Ivette SPARKS Facility:[facility] Procedures Date Procedure Procedure Detail Performing [...] Author Start: 04-14-2025 DIABETES SCREEN DI[address] SCREEN [facility] Start: 05-14-2022 Influenza vaccination INFLUENZA (#1) [facility] Start: 05-12-2022 [facility] Work Phone: Start: 05-12-2022 Esophagogastroduodenoscopy DH EGD (Not Applicable) [place] Start: 05-12-2022 End: 05-12-2022 Admission to same day surgery center Iron deficiency anemia [facility] Start: 09-13-2021 ADVANCE DIRECTIVE DISCUSSION ADVANCE DIRECTIVE DISCUSSION [facility] Start: 11-14-2015 [address] BONE D[address] [facility] Start: 11-14-1995 COLOGUARD (FIT-DNA) COLOGUARD (FIT-DNA) [facility] Start: 11-14-[address] [facility] Start: 11-14-1995 COLORECTAL CANCER SCREENING COLORECTAL CANCER SCREENING [facility] Start: 11-14-[address] [facility] Start: 11-14-1995 FECAL OCCULT BLOOD FECAL OCCULT BLOOD [facility] Start: 11-14-1995 LIPID SCREEN LIPID SCREEN [facility] Start: 11-14-[address] [facility] Start: [address] [facility] Start: 1969 SHINGRIX VACCINE (1 of 2) SHINGRIX VACCINE (1 of 2) [facility] Start: 1969 Urine microalbumin profile DTAP,TDAP,TD (1 - Tdap) [facility] Start: 1968 HEPATITIS C SCREENING HEPATITIS C SCREENING [facility] Start: 1962 Adult depression screening assessment DEPRESSION SCREENING [facility] Start: 1956 PNEUMOCOCCAL: 65+ (1 - PCV) PNEUMOCOCCAL: 65+ (1 - PCV) [facility] Start: 11-14-1955 COVID-19 VACCINE (#1) COVID-19 VACCINE (#1) [facility] Start: 05-16-1951 COVID-19 VACCINE (#1) COVID-19 VACCINE (#1) [facility] Glucose [Mass/volume ] in Serum or Plasma GLUCOSE, BLOOD (POC) Lab Routine Iron deficiency anemia due to chronic blood loss Controlled type 2 diabetes mellitus without complication, unspecified whether mcc insulin use (HCC) Ordered: 04/14/2022 [facility] Work Phone: Comment on above: Ordered: 04/14/2022 Patient Education Hiatal Hernia (DC) [facility] Work Phone: [facility] Immunizations Immunization Date Immunization Notes Care Provider Jose watts 11-11-2021 influenza virus vaccine, unspecified formulation [facility] 05-19-2021 influenza, unspecifi ed formulation [facility] 01-30-2021 SARS-CoV-2 (COVID-19 ) mRNA [id number] vax [facility] Comment on above: Result Comment: 2023: [id number] 01-02-2021 SARS-CoV-2 (COVID-19 ) mRNA [id number] vax Shante Orzech [facility] 05-14-2020 influenza virus vaccine, unspecified formulation Shante Orzech [facility] 07-26-2019 pneumococcal conjuga te vaccine, 13 valent Shante Orzech [facility] 06-28-2019 influenza virus vaccine, unspecified formulation Shante Orzech [facility] 08-22-2018 influenza virus vaccine, unspecified formulation Shante Orzech [facility] 06-18-2016 influenza, unspecifi ed formulation Shante Orzech [facility] 06-20-2015 influenza virus vaccine, unspecified formulation Shante Orzech [facility] Payers Date Payer Category Payer Medicaid MEDICAID [facility] MEDICAID [id number] 2022-Present [phone] [address] [place] [address] Medicaid [id number] 2022 Medicaid MEDICAID [facility] MEDICAID [id number] 2022-Present [phone] [address] [place] [address] Medicaid [id number] 2021 Medicare [facility] MEDICARE [facility] DUAL COMPLETE HMO SNP [id number] 2021-Present [phone] [address] [place] [address] Medicare [id number] 2021 Medicare [facility] MEDICARE [facility] DUAL COMPLETE HMO SNP [id number] 2021-Present [phone] [place] [address] Medicare [id number] 1959 Medicaid [id number] 1959 Medicare [id number] 1959 Medicare [id number] [id number] 1959 Private Health Insurance [id number] 1950 Unknown [id number] 2.16.840.1.584660.3.579.2.5 1950 Unknown [id number] 2.16.840.1.969996.3.579.2.5 1950 Unknown [id number] 2.16.840.1.192629.3.579.2.5 1950 Unknown [id number] 2.16.840.1.223098.3.579.2.5 1950 Unknown [id number] 2.16.840.1.029624.3.579.2.5 1950 Unknown [id number] 2.16.840.1.605364.3.579.2.5 93 1950 Unknown [id number] 2.16.840.1.234405.3.579.2.5 1950 Unknown [id number] 2.16.840.1.673759.3.579.2.5 1950 Unknown [id number] 2.16.840.1.828527.3.579.2.5 93 1950 Unknown [id number] 2.16.840.1.328258.3.579.2.5 93 1950 Unknown [id number] 2.16.840.1.723465.3.579.2.5 93 1950 Unknown [id number] 2.16.840.1.055946.3.579.2.5 93 1950 Unknown [id number] 2.16.840.1.827469.3.579.2.5 93 1950 Unknown [id number] 2.16.840.1.694999.3.579.2.1 259 1950 Unknown [id number] 2.16.840.1.655377.3.579.2.1 259 1950 Unknown [id number] 2.16.840.1.284734.3.579.2.1 259 1950 Unknown [id number] 2.16.840.1.085952.3.579.2.7 27 1950 Unknown [id number] 2.16.840.1.642768.3.579.2.7 27 1950 Unknown [id number] 2.16.840.1.187782.3.579.2.7 27 1950 Unknown [id number] 2.16.840.1.601048.3.579.2.7 27 Medicare Medicare [id number] Private Health Insurance [employer] [id number] Self-pay Self Pay [id number] Social History Date Type Detail Facility Sex Assigned At [facility] Start: 03-31-2016 End: 05-09-2024 Tobacco smoking status NHIS Never smoked tobacco [facility] Start: 07-19-2016 Tobacco use and exposure Smokeless tobacco non-user [facility] Start: 04-14-2022 End: 04-28-2022 Alcohol intake Current non-drinker of alcohol (finding) [facility] Start: 1950 Sex Assigned At Not on file C [facility] Start: 04-04-2022 End: 05-12-2022 Exposure to SARS-CoV-2 (event) Not sure [facility] Start: 1950 Sex Assigned At Female F [facility] Tobacco smoking status Never [facility] Goals Date Patient Goal Desired Activity /State Functional Status Date Assessment Result Facility 05-09-2024 Functional Status N/A [facility] 02-29-2024 Functional Status N/A [facility] Clinical Notes 10-14-2021 to 05-09-2024 Telephone Encounter - Makenna Kendall RN - 04/21/2022 1:47 PM EDTTelephone Encounter - Makenna Kendall RN - 04/21/2022 1:31 PM EDTTelephone Encounter - Christi Fink MD - 04/14/2022 1:39 PM EDT Note Date & Type Note Facility 05-09-2024 Evaluation + Plan note Diagnostic Tests PendingUrine Culture 05/09/24 [facility] 05-09-2024 Hospital Discharg e instructions Patient Education 05/09/2024 10:01:16 Urinary Incontinence Urinary Incontinence Urinary incontinence refers to a condition in which a person is unable to control where and when to pass urine. A person with this condition will urinate involuntarily. This means that the person urinates when he or she does not mean to. What are the causes? This condition may be caused by: Medicines. Infections. Constipation. Overactive bladder muscles. Weak bladder muscles. Weak pelvic floor muscles. These muscles provide support for the bladder, intestine, and, in women, the uterus. Enlarged prostate in men. The prostate is a gland near the bladder. When it gets too big, it can pinch the urethra. With the urethra blocked, the bladder can weaken and lose the ability to empty properly. Surgery. Emotional factors, such as anxiety, stress, or post-traumatic stress disorder (PTSD). Spinal cord injury, nerve injury, or other neurological conditions. Pelvic organ prolapse. This happens in women when organs move out of place and into the vagina. This movement can prevent the bladder and urethra from working properly. What increases the risk? The following factors may make you more likely to develop this condition: Age. The older you are, the higher the risk. Obesity. Being physically inactive. and childbirth. Menopause. Diseases that affect the nerves or spinal cord. Long-term, or chronic, coughing. This can increase pressure on the bladder and pelvic floor muscles. What are the signs or symptoms? Symptoms may vary depending on the type of urinary incontinence you have. They include: A sudden urge to urinate, and passing urine involuntarily before you can get to a bathroom (urge incontinence). Suddenly passing urine when doing activities that force urine to pass, such as coughing, laughing, exercising, or sneezing (stress incontinence). Needing to urinate often but urinating only a small amount, or constantly dribbling urine (overflow incontinence). Urinating because you cannot get to the bathroom in time due to a physical disability, such as arthritis or injury, or due to a communication or thinking problem, such as Alzheimer's disease (functional incontinence). How is this diagnosed? This condition may be diagnosed based on: Your medical history. A physical exam. Tests, such as: ?Urine tests. ?X-rays of your kidney and bladder. ?Ultrasound. ?CT scan. ?Cystoscopy. In this procedure, a health care provider inserts a tube with a light and camera (cystoscope) through the urethra and into the bladder to check for problems. ?Urodynamic testing. These tests assess how well the bladder, urethra, and sphincter can store and release urine. There are different types of urodynamic tests, and they vary depending on what the test is measuring. To help diagnose your condition, your health care provider may recommend that you keep a log of when you urinate and how much you urinate. How is this treated? Treatment for this condition depends on the type of incontinence that you have and its cause. Treatment may include: Lifestyle changes, such as: ?Quitting smoking. ?Maintaining a healthy weight. ?Staying active. Try to get 150 minutes of moderate-intensity exercise every week. Ask your health care provider which activities are safe for you. ?Eating a healthy diet. ?Avoid high-fat foods, like fried foods. ?Avoid refined carbohydrates like white bread and white rice. ?Limit how much alcohol and caffeine you drink. ?Increase your fiber intake. Healthy sources of fiber include beans, whole grains, and fresh fruits and vegetables. Behavioral changes, such as: ?Pelvic floor muscle exercises. ?Bladder training, such as lengthening the amount of time between bathroom breaks, or using the bathroom at regular intervals. ?Using techniques to suppress bladder urges. This can include distraction techniques or controlled breathing exercises. Medicines, such as: ?Medicines to relax the bladder muscles and prevent bladder spasms. ?Medicines to help slow or prevent the growth of a man's prostate. ?Botox injections. These can help relax the bladder muscles. Treatments, such as: ?Using pulses of electricity to help change bladder reflexes (electrical nerve stimulation). ?For women, using a medical transcriber to prevent urine leaks. This is a small, tampon-like, disposable device that is inserted into the urethra. ?Injecting collagen or carbon beads (bulking agents) into the urinary sphincter. These can help thicken tissue and close the bladder opening. ?Surgery. Follow these instructions at home: Lifestyle Limit alcohol and caffeine. These can fill your bladder quickly and irritate it. Keep yourself clean to help prevent odors and skin damage. Ask your health care provider about special skin creams and cleansers that can protect the skin from urine. Consider wearing pads or adult diapers. Make sure to change them regularly, and always change them right after experiencing incontinence. General instructions Take ijgx-zsx-yjinafx and prescription medicines only as told by your health care provider. Use the bathroom about every 3 4 hours, even if you do not feel the need to urinate. Try to empty your bladder completely every time. After urinating, wait a minute. Then try to urinate again. Make sure you are in a relaxed position while urinating. If your incontinence is caused by nerve problems, keep a log of the medicines you take and the times you go to the bathroom. Keep all follow-up visits. This is important. Where to find more information National [place] of Diabetes and Digestive and Kidney Diseases: www.niddk.nih.gov [place] [employer]: www.urologyhealth.org Contact a health care provider if: You have pain that gets worse. Your incontinence gets worse. Get help right away if: You have a fever or chills. You are unable to urinate. You have redness in your groin area or down your legs. Summary Urinary incontinence refers to a condition in which a person is unable to control where and when to pass urine. This condition may be caused by medicines, infection, weak bladder muscles, weak pelvic floor muscles, enlargement of the prostate (in men), or surgery. Factors such as older age, obesity, and childbirth, menopause, neurological diseases, and chronic coughing may increase your risk for developing this condition. Types of urinary incontinence include urge incontinence, stress incontinence, overflow incontinence, and functional incontinence. This condition is usually treated first with lifestyle and behavioral changes, such as quitting smoking, eating a healthier diet, and doing regular pelvic floor exercises. Other treatment options include medicines, bulking agents, medical devices, electrical nerve stimulation, or surgery. This information is not intended to replace advice given to you by your health care provider. Make sure you discuss any questions you have with your health care provider. Document Revised: 04/04/2021 Document Reviewed: 04/04/2021 [employer] Patient Education 2022 [employer]. 05/09/2024 10:01:15 Overactive Bladder, Adult Overactive Bladder, Adult Overactive bladder is a [...] be caused by other factors, such as: Medical conditions: ?Urinary tract infection. ?Infection of nearby tissues. ?Prostate enlargement. ?Bladder stones, inflammation, or tumors. ?Diabetes. ?Muscle or nerve weakness, especially from these conditions: ?A spinal cord injury. ?Stroke. ?Multiple sclerosis. ?Parkinson's disease. Other causes: ?Surgery on the uterus or urethra. ?Drinking too much caffeine or alcohol. ?Certain medicines, especially those that eliminate extra fluid in the body (diuretics). ?Constipation. What increases the risk? You may be at greater risk for overactive bladder if you: Are an older adult. Smoke. Are going through menopause. Have prostate problems. Have a neurological disease, such as stroke, dementia, Parkinson's disease, or multiple sclerosis (MS). Eat or drink alcohol, spicy food, caffeine, and other things that irritate the bladder. Are overweight or obese. What are the signs or symptoms? Symptoms of this condition include a sudden, strong urge to urinate. Other symptoms include: Leaking urine. Urinating 8 or more times a day. Waking up to urinate 2 or more times overnight. How is this diagnosed? This condition may be diagnosed based on: Your symptoms and medical history. A physical exam. Blood or urine tests to check for possible causes, such as infection. You may also need to see a health care provider who specializes in urinary tract problems. This is called a urologist. How is this treated? Treatment for overactive bladder depends on the cause of your condition and whether it is mild or severe. Treatment may include: Bladder training, such as: ?Learning to control the urge to urinate by following a schedule to urinate at regular intervals. ?Doing Kegel exercises to strengthen the pelvic floor muscles that support your bladder. Special devices, such as: ?Biofeedback. This uses sensors to help you become aware of your body's signals. ?Electrical stimulation. This uses electrodes placed inside the body (implanted) or outside the body. These electrodes send gentle pulses of electricity to strengthen the nerves or muscles that control the bladder. ?Women may use a plastic device, called a pessary, that fits into the vagina and supports the bladder. Medicines, such as: ?Antibiotics to treat bladder infection. ?Antispasmodics to stop the bladder from releasing urine at the wrong time. ?Tricyclic antidepressants to relax bladder muscles. ?Injections of botulinum toxin type A directly into the bladder tissue to relax bladder muscles. Surgery, such as: ?A device may be implanted to help manage the nerve signals that control urination. ?An electrode may be implanted to stimulate electrical signals in the bladder. ?A procedure may be done to change the shape of the bladder. This is done only in very severe cases. Follow these instructions at home: Eating and drinking Make diet or lifestyle changes recommended by your health care provider. These may include: ?Drinking fluids throughout the day and not only with meals. ?Cutting down on caffeine or alcohol. ?Eating a healthy and balanced diet to prevent constipation. This may include: ?Choosing foods that are high in fiber, such as beans, whole grains, and fresh fruits and vegetables. ?Limiting foods that are high in fat and processed sugars, such as fried and sweet foods. Lifestyle Lose weight if needed. Do not use any products that contain nicotine or tobacco. These include cigarettes, chewing tobacco, and vaping devices, such as e-cigarettes. If you need help quitting, ask your health care provider. General instructions Take dxmc-hgx-ttgjhhn and prescription medicines only as told by your health care provider. If you were prescribed an antibiotic medicine, take it as told by your health care provider. Do not stop taking the antibiotic even if you start to feel better. Use any implants or pessary as told by your health care provider. If needed, wear pads to absorb urine leakage. Keep a log to track how much and when you drink, and when you need to urinate. This will help your health care provider monitor your condition. Keep all follow-up visits. This is important. Contact a health care provider if: You have a fever or chills. Your symptoms do not get better with treatment. Your pain and discomfort get worse. You have more frequent urges to urinate. Get help right away if: You are not able to control your bladder. Summary Overactive bladder refers to a condition in which a person has a sudden and frequent need to urinate. Several conditions may lead to an overactive bladder. Treatment for overactive bladder depends on the cause and severity of your condition. Making lifestyle changes, doing Kegel exercises, keeping a log, and taking medicines can help with this condition. This information is not intended to replace advice given to you by your health care provider. Make sure you discuss any questions you have with your health care provider. Document Revised: 05/19/2021 Document Reviewed: 05/19/2021 Elsevier Patient Education 2022 [employer]. Follow Up Care 02/29/2024 11:11:11 With:AMALIA Shukla APRN, NAHEED Tate, URL Address: When: Unknown Comments:6 months [facility] 05-09-2024 Note Patient Education Obstetrics and Gynecology Overactive Bladder, [...] health care provider. General instructions ? Take jxkx-rbo-byfbaoa and prescription medicines only as told by [...] urinate. This will help your health care (more content not included)... [facility] 03-14-2024 Note Cardiology Follow Up Progress Note [...] 3 months, or sooner as needed Edd Wade MD Interventional Cardiology [facility] 03-05-2024 Note Chief Complaint Referral *Incontinence HPI [...] with voice recognition artificial intelligence software, specifically [email or web address], [employer] and or tok tok tok. Substitutions may have occurred due to the [...] regarding this. Follow-up With When Contact Information Orrosich FLOYD, [facility], Shante X, FAM, URL Additional Instructions: 8 [...] diabetic autonomic (poly)neuropathy (more content not included)... [facility] Comment on above: Result Comment: Elec tronically Signed By: AMALIA Shukla APRN, [place] [facility]\.br\Date and Time Signed: 03/05/24 22:19 EDT 04-21-2022 Miscellaneous Notes Pt has follow up appointment with Dr Rainey tomorrow. Makenna Kendall RN Spoke with Pankaj at Dr Rainey's office. Recent records and labs faxed to [phone] per office request. Makenna Kendall RN Message left with Dr Rainey's medical instructor again today regarding this pt and the urgency of this being addressed. Will try again later today if I don't hear back from their office. Makenna Kendall RN Call placed to [facility]. Office is closed. Makenna Kendall RN PCP updated in chart Glucose rechecked in the office and it was 373 by fingerstick. Call placed to Dr Joseph who is listed at pt's PCP. Jono states he has not worked in the office in 4 years now. Jono states pt is now seen by Dr Rainey at [facility]. Call placed to their office ([phone]) and message left requesting a call back. PSS: can you please update pt's PCP info. Thanks, Makenna Kendall RN Thanks. Can we have her PCP address this, Thanks Key Monteiro from [facility] Lab Client Services calls to report critical results: Glucose - 506 Pt identifiers and results read back for verification. Christy Byrd RN documented in this encounter [facility] 04-16-2022 Miscellaneous Notes Called Angélica Romano spoke with Kenyatta. She states they have patient scheduled to see Dr Patel on 05/12 for EGD. Adrienne Weinstein Pss Called Angélica Romano spoke with Kenyatta. She states they have called left patient message to call them back to schedule. Adrienne Weinstein Pss Called Angélica Romano spoke with Kenyatta. She states they have received this referral and their referral dept will be calling patient soon to schedule. I will call back sometime next week check on status of this referral. Adrienne Weinstein Pss Records faxed to Dr. Rich. Gladys: Information ready for you. Adrienne Weinstein Pss Images from the original note were not included. Please send records to [facility] office thanks! MD Tj Thompson; Makenna Lebron Please refer her to GI for an upper endoscopy. Thanks documented in this encounter [facility] 04-15-2022 Evaluation note Encounter Date Diagnosis Assessment Notes Apr, Anemia due to blood loss, chronic (ICD-10 - D50.0) [facility] Other 08-02-2022 NoteHNO ID: [id number] Author: Brenda Tavera RN Service: ? Author [...] noted. She has verbalized understanding [facility] NoteHNO ID: [id number] Author: Christi Fink MD Service: ? Author Type: Physician Type: Progress Notes Filed: 04/14/2022 1:13 PM Note Text: PATIENT NAME: Robina Steele [facility] NO.: [id number] ATTENDING PHYSICIAN: Christi Fink MD DATE OF [...] g/dL Final RDW-CV Date (more content not included)...[facility]08-02-2022 History of Present illness Narrative* Brenda [...] understanding Brenda Tavera RN [facility] NoteHNO ID: [id number] Author: Christi Fink MD Service: ? Author Type: Physician Type: Progress Notes Filed: 04/04/2022 11:07 AM Note Text: PATIENT NAME: Robina Ron CLINIC NO.: [id number] ATTENDING PHYSICIAN: Christi Fink MD DATE OF [...] not taking: Reported on 03/31/2022 ) - Rophb-4-SMJ-EPA-Fish Oil 1,000 mg (120 mg-180 mg) cap [...] sciatica - COPD (chronic obstructive pulmonary disease) ([facility]) - CVA (cerebral (more content not included)...[facility] 12-22-2021 NoteCARDIAC STRESS TEST Requesting Physician: [...] interpreted and reported in a separate dictation. 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 If mcc pain and dysfunction occur, surgical treatment can be considered. Patient given order for physical therapy. Celsias Other Evaluation + Plan note Future Appointments Appointment Date:04/11/2024 09:00:00 AM Scheduled Provider:AMALIA Shukla APRN, [place] [facility] Location:[facility] Appointment Type:URO Office Visit [facility] evaluation + Plan note Future Appointments Appointment Date:04/11/2024 09:00:00 AM Scheduled Provider:AMALIA Shukla APRN, [place] [facility] Location:[facility] Appointment Type:URO Office Visit Diagnostic Tests Pending * Urine Culture 02/29/24 [facility] note* Diagnosis Iron deficiency anemia due to chronic blood loss- Primary Iron deficiency anemia secondary to blood loss (chronic) Controlled type 2 diabetes mellitus without complication, unspecified whether superintendent marine oil terminal insulin use (HCC) documented in this encounter [facility] note* Diagnosis Iron deficiency anemia due to chronic blood loss- Primary Iron deficiency anemia secondary to blood loss (chronic) documented in this encounter [facility] note* Diagnosis Iron deficiency anemia due to chronic blood loss- Primary Iron deficiency anemia secondary to blood loss (chronic) documented [facility]* Diagnosis Iron deficiency anemia due to chronic blood loss- Primary Iron deficiency anemia secondary to blood loss (chronic) documented in this encounter [facility]* Diagnosis Iron deficiency anemia due to chronic blood loss- Primary Iron deficiency anemia secondary to blood loss (chronic) [facility] Diagnosis Onset Date Resolution Status Iron deficiency anemia [facility] Work Phone: History general Narrative - Reported* Type Description Date Medical History diabetes type 2 Medical History stroke Medical History mild form of leukemia Surgical History x2 Surgical History cateract removal bilateral Surgical History kidney and bladder surgery Surgical History choliectomy Hospitalization History listed above Celsias Other Hospital course Narrative No data available for this section [facility] Hospital Discharge instructions No data available for this section [facility] progress note No data available for this section [facility] Medications Administered Section Inactive Administered Medications - [...] INJECTION PER 1 MG Christi Fink MD [address] [place] [id number] Jasiel Treat [address] [place] [address] Referral ID Status Reason Start Date Expiration Date V isits Requested Visits Authorized [id number] Authorized 04/03/2022 09/12/2022 99 99 Reason Comments Appointment Confirmation Reason Comments Critical Results Glucose Source Comments (unrecognize d section and content) In the event this informatio n is protected by the Federal Confidentiality of Alcohol and Drug Abuse Patient Records regulations: The Federal rules restrict any use of the information to criminally investigate or prosecute any alcohol or drug abuse patient.[facility] the event this information is protected by the Federal Confidentiality of Alcohol and Drug Abuse Patient Records regulations: The Federal rules restrict any use of the information to criminally investigate or prosecute any alcohol or drug abuse patient.[facility] the event this information is protected by the Federal Confidentiality of Alcohol and Drug Abuse Patient Records regulations: The Federal rules restrict any use of the information to criminally investigate or prosecute any alcohol or drug abuse patient.[facility] the event this information is protected by the Federal Confidentiality of Alcohol and Drug Abuse Patient Records regulations: The Federal rules restrict any use of the information to criminally investigate or prosecute any alcohol or drug abuse patient.[facility] the event this information is protected by the Federal Confidentiality of Alcohol and Drug Abuse Patient Records regulations: The Federal rules restrict any use of the information to criminally investigate or prosecute any alcohol or drug abuse patient.[facility] the event this information is protected by the Federal Confidentiality of Alcohol and Drug Abuse Patient Records regulations: The Federal rules restrict any use of the information to criminally investigate or prosecute any alcohol or drug abuse patient.[facility] the event this information is protected by the Federal Confidentiality of Alcohol and Drug Abuse Patient Records regulations: The Federal rules restrict any use of the information to criminally investigate or prosecute any alcohol or drug abuse patient.[facility] Care Teams (unrecognized sec tion and content) Signal Helper Relationship Specialty Start Date End Date Shaikh Sparks MD [address] [place] [address] PCP - General Primary Care 04/14/22 Signal Helper Relationship Specialty Start Date End Date Demetrio Joseph PCP - General Family Practice 03/09/16 04/13/22 Shaikh Sparks MD [address] [place] [address] PCP - General Primary Care 04/14/22 Signal Helper Relationship Specialty Start Date End Date Shaikh Sparks MD [address] [place] [address] PCP - General Primary Care 04/14/22 Signal Helper Relationship Specialty Start Date End Date Shaikh Sparks MD [address] [place] [address] PCP - General Primary Care 04/14/22 Signal Helper Relationship Specialty Start Date End Date Shaikh Sparks MD [address] [place] [address] PCP - General Primary Care 04/14/22 Signal Helper Relationship Specialty Start Date End Date Shaikh Sparks MD [address] [place] [address] PCP - General Primary Care 04/14/22 Signal Helper Relationship Specialty Start Date End Date Shaikh Sparks MD [address] [place] [address] PCP - General Primary Care 04/14/22 Team Status: Inactive Member Role Status Dates Hood Patel MD Attending Provider Active Shaikh Clare MD Primary Care Provider Active Team Status: Active Member Role Status Dates Shaikh Clare MD Primary Care Provider Active INFORMATION SOURCE (unrecogn ized section and content) DATE CREATED AUTHOR 05/14/2022 [facility] DATE CREATED AUTHOR AUTHOR'S ORGANIZ ATION 05/16/2022 [facility] DATE CREATED AUTHOR AUTHOR'S ORGANIZ ATION 07/07/2022 [facility] DATE CREATED AUTHOR AUTHOR'S ORGANIZ ATION 03/03/2024 [place] [facility] DATE CREATED AUTHOR AUTHOR'S ORGANIZ ATION 05/05/2024 [facility] DATE CREATED AUTHOR AUTHOR'S ORGANIZ ATION 05/10/2024 [facility] DATE CREATED AUTHOR AUTHOR'S ORGANIZ ATION 05/10/2024 [place] [facility] DATE CREATED AUTHOR AUTHOR'S ORGANIZ ATION 05/11/2024 [facility] DATE CREATED AUTHOR AUTHOR'S ORGANIZ ATION 05/13/2024 [facility] FOR RECORDS PERTAINING TO PATIENTS [...] BE BASED ON THE PRIMARY CLINICAL RECORDS. [employer] [facility] provides no warranty or guarantee of the accuracy or completeness of information in this document.
[2024-05-18 15:10] LABS: Protein C-Functional 159 % (73-180); Protein S, Free 103 % (61-136); Protein S, Total 117 % (60-150); Protein S-Functional 99 % (63-140)
[2024-05-23 17:08] LABS: APTT 25.4 sec (.); Prothrombin Time 11.3 sec (.); Thrombin Time 15.9 sec (.)
== END 2024-05-17 10:54 | disposition home or self-care (01) ==
LOC: LAB 10:56
PROVIDERS: PCP Internal Medicine; Visit Provider Internal Medicine Hematology & Oncology
DX: C91.11 Chronic lymphocytic leukemia of B-cell type in remission (principal); D83.8 Other common variable immunodeficiencies; K91.2 Postsurgical malabsorption, not elsewhere classified; D50.9 Iron deficiency anemia, unspecified; D64.9 Anemia, unspecified
CPT/HCPCS: 36415; 85302; 85303; 85305; 85306; 85597; 85598; 85610; 85613; 85670; 85730; 85732; 86146; 86147

== ENCOUNTER 2024-05-23 07:06 | Outpatient (RCR) | payer MEDICARE, MEDICAID, SELFPAY | END 2024-06-12 23:59 | disposition home or self-care (01) | LOC: HEMC 07:06 | PROVIDERS: PCP Internal Medicine; Visit Provider Internal Medicine Hematology & Oncology | DX: C91.11 Chronic lymphocytic leukemia of B-cell type in remission (principal); D83.8 Other common variable immunodeficiencies; K91.2 Postsurgical malabsorption, not elsewhere classified; D50.9 Iron deficiency anemia, unspecified; D64.9 Anemia, unspecified; Z86.73 Personal history of transient ischemic attack (TIA), and cerebral infarction without residual deficits; I48.0 Paroxysmal atrial fibrillation; Z79.01 Long term (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 anticoagulants | CPT/HCPCS: 36415; 81241; G0463 ==

== ENCOUNTER 2024-06-03 14:18 | Inpatient (IN) | payer MEDICARE, MEDICAID, SELFPAY ==
[2024-06-03] VITALS (28 sets, daily range): BP systolic 47–111; BP diastolic 26–65; PULSE 85–109; TEMP 36.4–37.1; O2SAT 69–98; BMI 26.8; BMI 27.1
--- OUTSIDE RECORDS SUMMARY | 2024-06-03 14:24 | XMS_ITS | CCD ---
Author Organization [facility] ion [facility] Care Team Providers Care Residential Case Manager Name Role Phone Lawanda Alvarez Unavailable Shaikh Sparks MD Primary Care Provider Demetrio Joseph Primary Care Provider [phone] Hood Patel Unavailable [phone] Shaikh Sparks MD Primary Care Provider [phone] MD Hood Patel Attending Provider MD Amy [...] Admitting Unavailable FAWWAD, WATERS Primary Care Physician [phone] SHAIKH SPARKS Attending Unavailable JOSEWWAD, WATERS Attending [...] Sleep terror disorder (disorder) [facility] Anticholinergics (1 source) tiotropium; Translations: [tiotropium] Drug Allergy Pharyngeal swelling (finding), Tongue swelling (finding) [facility] Opioid Agonists (1 source) oxyCODONE; Translations: [oxycodone] Drug Allergy Sleep terror disorder (disorder) [facility] (12 sources) Acetaminophen / oxyCODONE; Translations: [acetaminophen-ox ycodone] Drug Allergy 6 Mental Status Change, Anaphylaxis, Sleep terror disorder (disorder) [facility] (7 sources) tiotropium; Translations: [tiotropium] Drug Allergy anaphylaxis, Pharyngeal swelling (finding), Tongue swelling (finding) [facility] (7 sources) Budesonide / formoterol Drug Allergy 2 Other: See Comments [facility] (7 sources) tiotropium Drug Allergy 6 Unknown [facility] (7 sources) oxyCODONE; Translations: [Oxycodone] Drug Allergy 9 Sleep terror disorder (disorder) [facility] (3 sources) Acetaminophen / oxyCODONE; Translations: [Percocet] Drug Allergy 5 [facility] (1 source) Acetaminophen / oxyCODONE; Translations: [OXYCODONE-ACETAM INOPHEN] Drug Allergy 5 [facility] Repository Medications Current Medications Medication Drug [...] 26, 2019 1:07pm take 1 capsule by [facility] once daily, then take 1 capsule by [...] 2018 10:17am take 1 capsule by mo [facility] every twenty-four hours Gabapentin 300 MG 1 [...] Comment on above: [facility]. oxybutynin chloride 5 mg oral [...] day(s), # 180 tab(s), Refills(s) 3, Pharmacy: [facility]/pharmacy #[id number], 155, cm, 05/09/24 9:05:00 EDT, Height/Length Dosing, 66.5, kg, 05/09/24 9:05:00 EDT, Weight Dosing Start Date: 05/09/24 Stop Date: 05/04/25 Status: Ordered Start: 02-29-2024 take 1 tablet by ruy twice daily trospium 20 mg oral tablet 20 mg = 1 tab(s), Oral, BID, # 60 tab(s), Refills(s) 2, Pharmacy: [facility]/pharmacy #[id number], 155, cm, 02/29/24 10:38:00 EDT, [...] on above: Take 1,000 mcg by mo [facility] once daily. 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 oral hypoglycemic drugs; Translations: [SNF USE ORAL HYPOGLYCEMIC DX] Onset: 12-24-2021 Episodic Other aftercare (1 source) tank terminal gauger (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 anticoagulants; Translations: [SNF CURRNT USE ANTICOAGULANTS] Onset: 12-24-2021 Episodic Other [...] 05/09/2024 18:41 EDT FREE TEXT SOURCE: Oreileen HEEL TRIMMER, HAND METHOD LASTING MACHINE OPERATOR-C, Orzeyovani HEEL TRIMMER, HAND METHOD LASTING MACHINE OPERATOR-C, Shante X Shante X FINAL REPORTS [...] Locations R1: This test was performed at: [facility], [address] [place] [address], [address]- , , Normal [facility] Comment on above: Performed By: #### 2 [id number] #### [facility] [address] [place] [id number] Ambulatory Visit Summaryon 0 05-09-2024 Ambulatory Visit [...] Duration: 90 Days Refills: 3 Pickup at [facility]/pharmacy #[id number] Unchanged atorvastatin (atorvastatin 20 mg Tab) 90 [...] physician if questions or concerns Pharmacy Information [facility]/pharmacy #[id number]: [address], [place] [id number] [phone] What How Much When Comments Stop Taking [...] insulin Unspecifie (more content not included)... Normal [facility] Reminderson 05-09-2024 Reminders Reminders From: Anushka Carroll To: EU - Administrative; Sent: 05/09/2024 10:23:22 EDT Show up: 08/13/2024 10:23:00 EST Subject: Ambulatory Reminder Due Date/Time: 10/23/2024 10:22:00 EST Reminder/Recall Patient needs scheduled with AO for a 6 month f/u, due back mid October 2024 Normal [facility] Urology Office/Clinic Noteon 05-09-2024 Urology Office/Clinic Note [...] with voice recognition artificial intelligence software, specifically [email or web address], [email or web address] and or [employer]. Substitutions may have occurred due to the [...] # 60 tab(s), Refills(s) 2, [id number], cm, 02/29/24 10:38:00 EDT, Height/Length Dosing, 66.5, kg, 02/29/24 10:38:00 EDT, Weight Dosing trospium, 20 mg = 1 tab(s), Oral, BID, X 90 day(s), # 180 tab(s), Refills(s) 3, [id number], 155, cm, 05/09/24 9:05:00 EDT, Height/Length Dosing, 66.5, kg, 05/09/24 9:05:00 EDT, Weight Dosing 02947 Measure Post Void residual urine and/or bladder capacity by US- non-imaging Urine Culture Urnls Dip Stick Auto w/o Microscopy POC 79894 2. Mixed incontinence (N39.46: Mixed incontinence) UUI >>> LEW See #1 Ordered: 49159 Measure Post Void residual urine and/or bladder capacity by US- non-imaging Urine Culture Urnls Dip Stick Auto w/o Microscopy POC 43645 3. Asymptomatic microscopic hematuria (R31.21: Asymptomatic microscopic [...] Improved to 2 times per night Ordered: 39064 Measure Post Void residual urine and/or bladder capacity by US- non-imaging Urine Culture Urnls Dip Stick Auto w/o Microscopy POC 22620 5. Unspecified urethral stricture, female (N35.92: Unspecified urethral stricture, female) s/p cystoscopy/UD 01/09/2019 by ELHAM [1] Ordered: 56350 Measure Post Void residual urine and/or bladder capacity by US- non-imaging Urine Culture Urnls Dip Stick Auto w/o Microscopy POC 67207 6. Glucosuria (R81: Glycosuria) 3+ on UA [...] CVA (cerebrovascular (more content not included)... Normal [facility] Comment on above: Result Comment: Elec tronically [...] Oct. She verbalized understanding. Normal [facility] Office Visiton 03-14-2024 Follow-up visit [id number] Robina Ron 1950 F Date Provider Department Center 03/14/2024 [facility]8-EDD WADE JOHNATHON Zaragoza Family History Problem Relation Age of Onset Pulmonary embolism Father Family Status - Relation Status Age at Father Level of Service:39647 [facility] OFFICE/OUTPATIENT ESTABLISHED MOD MDM 30 MIN [facility] Coding Summary.on 03-07-2024 Coding Summary. NDXJGark26OQa8iRq+PG h lYWQ+MQ3RFQZrK86xrYMu nC0nK7XJQJwMJqvjGVFZA MjLAmWlpjCiSU5mkSHaPM Ju IC8+HV6cTLAsVgawqXBhu 9B9eHN6F17iyd0eSNykeV H9OEWfKoYlrliru3xgpMp 6IDcuNmluOyBt VJGniG73CZJ9kH94Um09z CFkmUOwq2dspQi0VsHuWZ TuRAI0pMxnEUnlo5YgBTY cW24voKCqg7T8 ZEEswYdphIBnXvLqnZL9a T0hIUdhzodev9agetnsFv p8dk65sEBgb8U9gOG0F8S vywR2JXVnaKGe BiffyQOCbU7bjxpcg4qia bjnDkYoQIYlULv7FDc1KA AxmQjhJoQzRB31FCS5YXL equYeS7KgUNVo wDbsAeQ5b2D4Es7JB6HMQ wmeR9LMUULAGCverMF+PC 81cc88M5CyXfxwFza7HUM zBKU6qCF8mN8a LMYxIOnjv8I6fPR0K2Wxv bJhfx2bu8bfQYIrLFlrG2 6npXYbk3Q1HFJtaDQ1DQI tlTgpOxZqcZ07 Oyc+OPUuxDimy6OqJfabr 3igm6xebLf5EuklZENfio PyoPsbNHZ8h9WoNw0yVXQ dzTM7sTT5xE8h BrBbGgQ7RJtcW146LyWog UXtExovM85zF1OftKD+PH JrAud0TMBjhDzrKP5pM0X hZGRpbmctbGVm jMkfIR2nSHDbpmtuZVZrn C5eEHHyG6n0CzNtAsX1FF uxJ7FsQPMmmlpuGa97tE1 aWqMwYaL2UWvw S0QztxO9YNJffXZrVRnkK PU7Q39ft7I7LEMbIURqFA J2kBJ0pK7jmUtqleokcQM mdDsgdmVydGlj JBxpPMejT504SEMpzPhtO kNvZGluZyBEYXRlOiAgMD YvMjUvMjAyNDwvdGQ+PHR iSFD5jMlvCBGp nGHtCZibAh3mtTnzkEfiN T9eBHKjhxmvUUYbwJ5pUE WszNQfdVnuGB1bLGNmvis pn469DjGuPWA9 XRLhrXHqA4KqqF1bWmMlD WRhABUaY1ApnUEuJMuqR2 35FYvpGcR8OWEqiwLkF0W sLWFsaWduOiB0 i3Q9Kn9Qi3WpgpmzC7Uvw UOnNgDuQuitEQp0P4FsNk wvdHI+KN96REGkWO55PJd 9UWL3qXxeBZjm BAFbV8UmoZ8qCiKrCEWnK GRkOyc+PHRhYmxlIHdpZH RoPScxMDAlJyBzdHlsZT0 lGy4wWAXlMSTg uFqmaVDiSyDiw8obWANzX LezXV3cdWfgE2GkqIX6RS Rgf8o7Ff97O68gA3TgbAZ +XCIwsVG9lBF2 sK1mPeWeUvJ8IKmzS530X jMswOVzMllml9xtx2sdfD i7YgL2VPXmrdHgpEclRTJ 6v9EzQw59S07r IHdpZHRoPSIxNSUiIHZhb Rlpeh2ssX6iCj2+PGNvbC U4zIW8bE2pDeDmGlQ5HCk cG175JgFtzXDj Uguil5yde0dvsDl2ShKxO HKraeLhmGjgPEX9i3ExCu 75N2EctVvcu3HdQxw5aa0 6lUXfi0E2lFT9 L2AgJHUkuwfktDHdmQzkQ M3eVOVujgxkQRWgcI6uQL BkJ1g0MkNuSqD0ZYvxV9U yljW2FSJhoMJk RYKzfJKDdN2lkeatm1epg hkbVwUhKFEiQOa5VCy3XR EtjZhbBmToDJQ9JdM0DLM 8oSQbfQ0fcCdq joeaiW9bTpi+SGR8aDDip YAFVF6iQyxsyEG+PHRkIH T3pLdeRQpcTFCnkH3xPUR tS0d3OuWvGtL6 MZztV1JhvfU6PQVeuOUqX ZDrmZTWuO1obzozd3lnco tpSrNuOYTiWGz8SXd0XDX saWduOiBsZWZ0 YaF9RLP7jEZmmH9cqWaoq zdycL9lWxq+QmlydGggRG S2MZr0V9MmLcq1VCYydNc zSU2lkFXtDXxy Nv0rvRzatBuxFF9iQNRrk oycl581MuWbk6iiPBAdlW BtDMflBPY4G18ud0H5ZTR xYSGwRTX5tZR6 yQ4fvErqlqedoQAehTwcg zEifRpmQZvpCCnvN501ZT ZzgCbqXxMdNDy5F8ScFfe 7MHOidZsbGX5z gWMfGRadFb8zoMiegGdxV Q0pXKZdswmsj691TfKbo6 zdVYLdtDAqRTxqHPK5T57 ju4F3PXFgMTHg HCX5nFX0oF2nhZrpmwjnx GVmdDsgdmVydGljYWwtYW bbF123QERmvMvaTjBnzUj 3Y2GfEse6OVAv rYdgAO2qaGYdDWriRr8kf FwosTfxJQ8qOGPyphurj2 40CjYhx7saFBJylDQzCFo mRMX7M34vo2D7 FXJuAUGzOUI9zNG0iU5uk GlnbjogbGVmdDsgdmVydG bmOEsgZUatH031UEFcgTu nPlBhdGllbnQg LYwmKZt0I9OlVkadqDJ+P G31DIFoET60rVFdzRLsf7 dmkNk6YnKwXPUiMNG3xPv hZHvkw7XnAJYi M69jqXBsc9A8LAVmuUeee CRaWxMgeML6nF6lZRftmt paq5umgzjhEwjpl2qkjz0 0oW13M86oOKiv ZHRoPSIzMCUiIHZhbGlnb f5wfR8yKc2+AFKdaIG4yG N9iZ2jRAXwQpC9OOksI54 9InRvcCIvPjxj t1tkd8jzzFq0SpI7SPBki cCyzWveLSK2f2OyMw81X1 9sIHdpZHRoPSIyMCUiIHZ bwFizbi0jbT8t Ii8+PZPlgPV1fOY1hT6hG dCiAyG4WRkqD563YgMojF WmItcvJ57bB0XrrJV+PHR rDty4JYFvzPoq ZN0uaZVpAQgrAs9sYAI4D rOkCnJyNXjhH7EcTHMmst cbidoevOO1JMVpTJZeoH5 0Sh4ziLpuSIHc jTOIuL7flomhn3alrnunD lXjEZXiSPm3KCi4BHHvyR bzDbAvJWT2ItA5ZRT4uEF xpZ7kgOmdmntj zT6mA3QnXQThgrpjCy15a W2lZvWaOaG6GQkoJub+TE JVRKvtK7FMXAbQER9lTRe vdGQ+PHRkIHN0 rRnaCOktXSXwhZ5gXZTeG 2k0YmTuLrD0NIshJ6WxKB TpujqcTy78xQ8uXeBlNeJ 5IJmfL3ZcsmC9 LWZcaLHvZVykLMZ5R25jk 2G5XXTbUFNmPIY0lDU7vH 1hbGlnbjogbGVmdDsgdmV ydGljYWwtYWxp C216ZTJwmTcmEhOfUzQfG iI3ETA3G6JoCka8XQDsoM qkAC2mzGEyGUqvGr6zxPh zpPoyOI5yGTFc cbraIEXbrG5dPTGgtKJuw UbhAS3mKZXvfvogs329Mu HeZCZ4GKPbwLRmS3JmzB3 yOiAjMDAwMDAw Q7BhtRDjYEbrN442STvjX jF4KWRzvgLrN6VuIZQsmL lwCzD4x2W9Hf65ZnWNMSD yczwvdGQ+PHRk OSH8vPacEPiyTLErdB2pU EIdZ3z0UtMrGyW6IGvaG4 WdEJKcjttqUa75rL0nUsN jNwM0PUsmO4Dz otK9VHQjgFPjIPhoCSG1N 11ta6Q6YAJoQUSuTPL4yX I9wE8gpLwgxsgpyVGvqQn gdmVydGljYWwt GWfmN885DERrwCxdCxWdj WFsZTwvdGQ+NKUgCIM2nX rjFAshJKIgjG1pSJUhU9v 5SlPwYeY3HRjk F0YnHNPlykeoHi99nK6oU zJnOcS5AMsdU3EzttZ1BE SawKRpSDbdMTQ7W28tj6E 6LCMrCLXePTZ4 lYL0dM4huUtcycfurSDwh DsgdmVydGljYWwtYWxpZ2 25WUBqfXcuYejsWxZMtd3 dAC8kDhahjNJ+ CV23sw86X6KcOzudUtw9O REcKPX8bJP2kM8jDIHoMJ rgw9N3yJK6N0VjznNpub9 ae4ktXSMjKJte B53asZHlf3O9ZFXyhLB0P KJapKlbWrOeqH82Naf+PG VriRqpt2VkHmmdb4feq4o gjIj7SgCuIACc nqAngFxoIGS3y7HrCb66S 29sIHdpZHRoPSIzMCUiIH LcdKjibv5kwK6iPr9+PGN ynSG0mNI7bA8l JhKiTiX9DTcdI429JkNie DLoMtblw7bfm5fzcVu7Zt BaNXXrnwKbaJajCLL9n5O bDo99N2EzxOzx t6AqTxw8va36pTGzt2E2o EA3C7HjOSPdtdbkmHUshJ nlQP1mCGTvjjcuCDSauW0 pIVOhN1w6JhNe BcH9ITvbH6KnlfL2EUDht EKhZAOqrZGZaE4jhgvwr7 zslbsqVaLgMNTaMMu6UDk 0LWFsaWduOiBs RFI5UxZ9XII3bJJadI2gq YglyeoisO6rEgh+UGh5c2 ssmVQzPY0duGA1HE27FS7 4fUUei7P0zPW3 K2GpUFEeehdzrucdgTY7H XTuHUCpvT31Ek7ngLvpEs 4yXMUdIXI8TEXqeBRrO8C rjA8eEbIjYBVp AAObV0LjjHRqNSjpW106A ShhBbQ1INLoplQiR2DzHP RpsMwyNfA9p2I9Fw6BJI9 4NO88IE31oXHf l4X5oDL1Z4RdQVLegijmr korhFA4GKBgMTFhmZ45Kn 0jgDegPx8mSJKmVOB2XQR ubBQjX9GyuP4k SbYzDOEvGQAiY3DbyDIqE CpfF209NKwoDjQ0JFIiuh WaQ4KdVZOtqZajXoD9w6U 5Sm9BAx51AU79 ZG04uVOly8E6lFV1G2VaC RHocvvttjrtxKG7MQNmJE DmzM20Dy3neNvqPv6rOPN jLSV9UDKxbKOs G3CkdP5uIkTzFSHbNFNxI 7MseQSnWOmyV349TXxnPu U0CTWqhbTiB2RrZHNmtXh tIqT1v9Q5Dj3S NCtbluj8A9YwHlszeRL+P E75IEKlUF69eGWoaKTjw7 xoeEq0MoTmQROvBBX2yHn lCNbzb2BhHWQx V85skLJvl0L5F (more content not included)... Normal [facility] Patient Educationon 03-05-20 Patient Education [...] health care provider. General instructions ? Take ssrg-xgy-vkcxsvg and prescription medicines only as told by [...] monitor yo (more content not included)... Normal [facility] C Urineon 03-02-2024 Bacteria identified Cx Nom [...] This test was performed at: [facility], [address] [place] [address], [facility]- , , [facility] Comment on above: Performed By: #### 2 [id number] #### [facility] [address] [place] [address] Physician Referralon 024 Physician Referral [id number]. [id number] Normal [facility] Screenson 03-01-2024 Screens [id number] Normal [facility] Ambulatory Visit Summaryon 0 02-29-2024 Ambulatory Visit [...] for choosing us for your care. Normal [facility] GLYCOHEMOGLOBIN A1Con 2021 ADA RECOMMENDATION SEE BELOW Normal [facility] Comment on above: Result Comment: ADA RECOMMENDED LIMIT 4.0 - 6.0 ADA THERAPEUTIC TARGET < 7.0 ACTION SUGGESTED > 7.0 Performed By: #### A 1C #### [facility] [address] [address] [address] Julisa Lowe Glucose [Mass/Vol] 235 mg/dL Normal [facility] Comment on above: Performed By: #### A 1C #### [facility] [address] [address] [address] Julisa Lowe HbA1c (Bld) [Mass fraction] 9.8 % Critically high 4.5-6.2 [facility] Comment on above: Performed By: #### A 1C #### [facility] [address] [place] [address] Dr. Julisa Lowe PROF CHEM 8 (BAS METB)on Anion gap [Moles/Vol] 17.7 mmol/L Normal [facility] Comment on above: Performed By: #### B MP #### [facility] [address] [place] [address] Dr. Julisa Lowe Calcium [Mass/Vol] 9.3 mg/dL Normal 8.5-10.1 [facility] Comment on above: Performed By: #### B MP #### [facility] [address] [place] [address] Dr. Julisa Lowe Chloride [Moles/Vol] 107 mmol/L Normal 98-107 [facility] Comment on above: Performed By: #### B MP #### [facility] [address] [place] [address] Dr. Julisa Lowe CO2 [Moles/Vol] 24.3 mmol/L Normal 21.0-32.0 [facility] Comment on above: Performed By: #### B MP #### [facility] [address] [place] [address] Dr. Julisa Lowe Creatinine [Mass/Vol] 0.90 mg/dL Normal 0.55-1.02 [facility] Comment on above: Performed By: #### B MP #### [facility] [address] [place] [address] Dr. Julisa Lowe EGFR-AF JORDANIAN >60 Normal >=60 [facility] Comment on above: Performed By: #### B MP #### [facility] [address] [place] [address] Dr. Julisa Lowe EGFR-NON AF JORDANIAN >60 Normal >=60 [facility] Comment on above: Performed By: #### B MP #### [facility] [address] [place] [address] Dr. Julisa Lowe Glucose [Mass/Vol] 196 mg/dL Critically high 74-[address] [facility] Comment on above: Performed By: #### B MP #### [facility] [address] [address] [address] Julisa Lowe Potassium [Moles/Vol] 5.0 mmol/L Normal 3.5-5.1 [facility] Comment on above: Performed By: #### B MP #### [facility] [address] [address] [address] Julisa Lowe Sodium [Moles/Vol] 144 mmol/L Normal 136-145 [facility] Comment on above: Performed By: #### B MP #### [facility] [address] [address] [address] Julisa Lowe Urea nitrogen [Mass/Vol] 33.0 mg/dL Critically high 7.0-18.0 [facility] Comment on above: Performed By: #### B MP #### [facility] [address] [address] [address] Julisa Lowe Urea nitrogen/Creatinine [Mass ratio] 36.7 mg/mg Normal [facility] Comment on above: Performed By: #### B MP #### [facility] [address] [address] [address] Julisa Lowe Basophils Auto (Bld) [#/Vol] Ordered By: Hood Patel on 05-12-2022 Basophils (Bld) [#/Vol] 0.1 10*3/uL 0.0-0.2 [facility] Basophils/100 WBC Auto (Bld) Ordered By: Hood Patel on 05-12-2022 Basophils/100 WBC (Bld) 0.7 % . [facility] Blood hemoglobin measurement (mass/volume)Ordered By: Hood Patel on 05-12-2022 Hemoglobin (Bld) [Mass/Vol] 11.8 g/dL 11.8-15.4 [facility] Blood leukocytes automated c ount (number/volume)Ordered By: Hood Patel on 05-12-2022 WBC (Bld) [#/Vol] 7.6 10*3/uL 4.5-11.[address] [facility] biopsyOrdered By: Merna Patel on 05-12-2022 Transferrin [Mass/Vol] 206 mg/dL 180-380 [facility] Complete Blood Count Auto Di ffon 05-12-2022 Basophils (Bld) [#/Vol] 0.1 10*3/uL Normal 0.0-0.2 [facility] Comment on above: Result Comment: PERF ORMED BY: [place] [address] PATHOLOGIST POSTULANT JENY DODGE M.D. Performed By: #### F E and TIBC, KATHY, [id number], CBC #### [address] Basophils/100 WBC (Bld) 0.7 % Normal . [facility] Comment on above: Performed By: #### F E and TIBC, KATHY, [id number], CBC #### [address] Eosinophils (Bld) [#/Vol] 0.1 10*3/uL Normal 0.0-0.45 [facility] Comment on above: Performed By: #### F E and TIBC, KATHY, [id number], CBC #### [address] Eosinophils/100 WBC (Bld) 1.6 % Normal . [facility] Comment on above: Performed By: #### F E and TIBC, KATHY, [id number], CBC #### [address] Erythrocyte distribution width (RBC) [Ratio] 27.8 % High 11.9-15.3 [facility] Comment on above: Performed By: #### F E and TIBC, KATHY, [id number], CBC #### [address] Hematocrit (Bld) [Volume fraction] 37.5 % Normal 34.0-46.4 [facility] Comment on above: Performed By: #### F E and TIBC, KATHY, [id number], CBC #### [address] Hemoglobin (Bld) [Mass/Vol] 11.8 g/dL Normal 11.8-15.4 [facility] Comment on above: Performed By: #### F E and TIBC, KATHY, [id number], CBC #### [address] Lymphocytes (Bld) [#/Vol] 2.4 10*3/uL Normal 1.00-4.8 [facility] Comment on above: Performed By: #### F E and TIBC, KATHY, [id number], CBC #### [address] Lymphocytes/100 WBC (Bld) 32.0 % Normal . [facility] Comment on above: Performed By: #### F E and TIBC, KATHY, [id number], CBC #### [address] MCH (RBC) [Entitic mass] 24.2 pg Low 24.7-34.3 [facility] Comment on above: Performed By: #### F E and TIBC, KATHY, [id number], CBC #### [address] MCV (RBC) [Entitic vol] 76.9 fL Low 80-100 [facility] Comment on above: Performed By: #### F E and TIBC, KATHY, [id number], CBC #### [address] Mean Corpuscular HGB Conc 31.4 g/dL Low 32.0-35.0 [facility] Comment on above: Performed By: #### F E and TIBC, KATHY, [id number], CBC #### [address] Monocytes (Bld) [#/Vol] 0.4 10*3/uL Normal 0.0-0.8 [facility] Comment on above: Performed By: #### F E and TIBC, KATHY, [id number], CBC #### [place] [address] [place] Monocytes/100 WBC (Bld) 5.8 % Normal . [facility] Comment on above: Performed By: #### F E and TIBC, KATHY, [id number], CBC #### [place] [address] [place] Neutrophils (Bld) [#/Vol] 4.6 10*3/uL Normal 1.8-7.7 [facility] Comment on above: Performed By: #### F E and TIBC, KATHY, [id number], CBC #### [address] Neutrophils/100 WBC (Bld) 59.9 % Normal . [facility] Comment on above: Performed By: #### F E and TIBC, KATHY, [id number], CBC #### [place] [address] [place] Nucleated RBC/100 WBC (Bld) [Ratio] 0.2 % Normal 0-0.5 [facility] Comment on above: Performed By: #### F E and TIBC, KATHY, [id number], CBC #### [address] Platelet mean volume (Bld) [Entitic vol] 6.5 fL Normal 6.3-10.7 [facility] Comment on above: Performed By: #### F E and TIBC, KATHY, [id number], CBC #### [place] [address] [place] Platelets (Bld) [#/Vol] 231 10*3/uL Normal 150-450 [facility] Comment on above: Performed By: #### F E and TIBC, KATHY, [id number], CBC #### [place] [address] [place] RBC (Bld) [#/Vol] 4.88 10*6/uL Normal 3.60-5.00 [facility] Comment on above: Performed By: #### F E and TIBC, KATHY, [id number], CBC #### [facility] [address] WBC (Bld) [#/Vol] 7.6 10*3/uL Normal 4.5-11.0 [facility] Comment on above: Performed By: #### F E and TIBC, KATHY, [id number], CBC #### [facility] [address] Eosinophils Auto (Bld) [#/Vo l]Ordered By: Hood Patel on 05-12-2022 Eosinophils (Bld) [#/Vol] 0.1 10*3/uL 0.0-0.45 [facility] Eosinophils/100 WBC Auto (Bl d)Ordered By: Hood Patel on 05-12-2022 Eosinophils/100 WBC (Bld) 1.6 % . [facility] Erythrocyte distribution wid th Auto (RBC) [Ratio]Ordered By: Hood Patel on 05-12-2022 Erythrocyte distribution width (RBC) [Ratio] 27.8 % 11.9-15.3 [facility] Ferritinon 05-12-2022 Ferritin [Mass/Vol] 218.6 ng/mL Normal 11-306.8 [facility] Comment on above: Performed By: #### F E and TIBC, KATHY, [id number], CBC #### [facility] [address] Ferritin [Mass/volume] in Se rum or PlasmaOrdered By: Hood Patel on 05-12-2022 Ferritin [Mass/Vol] 218.6 ng/mL 11-306.8 [facility] Folate [Mass/volume] in Seru m or PlasmaOrdered By: Hood Patel on 05-12-2022 Folate [Mass/Vol] 7.9 ng/mL >5.9 [facility] Comment on above: Folate reference ran ge: >5.9 ng/ml The WHO technical consultation on folate and vitamin b12 deficiencies has determined that folate concentrations less than 4 ng/ml are considered deficient. Glucose Glucometer (BldC) [M ass/Vol]Ordered By: Hood Patel on 05-12-2022 Glucose [Mass/Vol] 426 mg/dL [facility] Comment on above: Random Glucose Refer ence Range is dependent on time and content of last meal. Glucose of more than 200 mg/dL in a nonstressed, ambulatory subject supports the diagnosis of Diabetes Mellitus. Glucose Poct Glucometerson 0 05-12-2022 Commemt1 Normal [facility] Comment on above: Result Comment: Glu2 : Result Not Confirmed PERFORMED BY: [place] [address] PATHOLOGIST POSTULANT JENY DODGE M.D. Performed By: #### G LULS #### Point of Care testing , Glucose [Mass/Vol] 426 mg/dL Off scale high [facility] Comment on above: Result Comment: [place] om Glucose Reference Range is dependent on time and content of last meal. Glucose of more than 200 mg/dL in a nonstressed, ambulatory subject supports the diagnosis of Diabetes Mellitus. Performed By: #### G LULS #### Point of Care testing , Hematocrit Auto (Bld) [Volum e fraction]Ordered By: Hood Patel on 05-12-2022 Hematocrit (Bld) [Volume fraction] 37.5 % 34.0-46.4 [facility] Iron [Mass/volume] in Serum or PlasmaOrdered By: Hood Patel on 05-12-2022 Iron [Mass/Vol] 48 ug/dL 40-150 [facility] Iron and TIBC Profileon 04-15 % Iron Saturation 16.0 % Low 20-50 [facility] Comment on above: Performed By: #### F E and TIBC, KATHY, [id number], CBC #### [facility] [address] Iron [Mass/Vol] 48 ug/dL Normal 40-150 [facility] Comment on above: Performed By: #### F E and TIBC, KATHY, [id number], CBC #### [facility] [address] Total Iron Binding Capacity 288 ug/dL Normal 255-450 [facility] Comment on above: Performed By: #### F E and TIBC, KATHY, [id number], CBC #### [facility] [address] Transferrin [Mass/Vol] 206 mg/dL Normal 180-380 [facility] Comment on above: Performed By: #### F E and TIBC, KATHY, [id number], CBC #### [facility] [address] Iron binding capacity [Mass/ volume] in Serum or PlasmaOrdered By: Hood Patel on 05-12-2022 Iron binding capacity [Mass/Vol] 288 ug/dL 255-450 [facility] Iron saturation [Mass Fracti on] in Serum or PlasmaOrdered By: Hood Patel on 05-12-2022 Iron saturation [Mass fraction] 16.0 % 20-50 [facility] [place] 05-12-2022 L - -------- Specimen: [id number] Received: 05/12/22 Status: CORRY Hernandez Num: [id number] Spec Type: Surgical Subm Dr: Hood Patel MD Tissues: A Duodenum - Biopsy (DUODENAL BX) Procedures: HE Stain/2, Gross/Micro L4 -------- Age/ Patient Sex Location Account Attending Physician -------- RaRobina Ivette 71/F [id number] Hood Patel MD -------- SPEC NUM: [id number] RECD: 05/12/22 STATUS: CORRY GRADYWest NUM: [id number] PROSPER: 05/12/22 [facility] DR: Hood Patel MD ENTERED: 05/12/22 [facility] DR: VELASQUEZ TYPE: Surgical DEPT: S ORDERED: [...] microscopic findings support the above pathologic diagnosis. [address] -------- -------- Specimen: [id number] Received: 05/12/22 Status: CORRY Hernandez Num: [id number] Spec Type: Surgical Subm Dr: Hood Patel MD Tissues: A Duodenum - Biopsy (DUODENAL BX) Procedures: HE Stain/2, Gross/Micro L4 -------- Patient: Robina Ron [id number] (Continued) -------- Signed (signature on file) Jeny Dodge MD 05/13/22 4976 [facility] - Chemistry and C hemistry - challengeOrdered By: Hood Patel on 05-12-2022 Cobalamin (Vitamin B12) [Mass/Vol] 277 pg/mL 180-914 [facility] Laboratory - Hematology and Cell countsOrdered By: Hood Patel on 05-12-2022 Nucleated RBC/100 WBC (Bld) [Ratio] 0.2 % 0-0.5 [facility] Lymphocytes Auto (Bld) [#/Vo l]Ordered By: Hood Patel on 05-12-2022 Lymphocytes (Bld) [#/Vol] 2.4 10*3/uL 1.00-4.8 [facility] Lymphocytes/100 WBC Auto (Bl d)Ordered By: Hood Patel on 05-12-2022 Lymphocytes/100 WBC (Bld) 32.0 % . [facility] MCH Auto (RBC) [Entitic mass ]Ordered By: Hood Patel on 05-12-2022 MCH (RBC) [Entitic mass] 24.2 pg 24.7-34.3 [facility] MCHC Auto (RBC) [Mass/Vol]Or dered By: Hood Patel on 05-12-2022 MCHC (RBC) [Mass/Vol] 31.4 g/dL 32.0-35.0 [facility] MCV Auto (RBC) [Entitic vol] Ordered By: Hood Patel on 05-12-2022 MCV (RBC) [Entitic vol] 76.9 fL 80-100 [facility] Monocytes Auto (Bld) [#/Vol] Ordered By: Hood Patel on 05-12-2022 Monocytes (Bld) [#/Vol] 0.4 10*3/uL 0.0-0.8 [facility] Monocytes/100 WBC Auto (Bld) Ordered By: Hood Patel on 05-12-2022 Monocytes/100 WBC (Bld) 5.8 % . [facility] Neutrophils Auto (Bld) [#/Vo l]Ordered By: Hood Patel on 05-12-2022 Neutrophils (Bld) [#/Vol] 4.6 10*3/uL 1.8-7.7 [facility] Neutrophils/100 WBC Auto (Bl d)Ordered By: Hood Patel on 05-12-2022 Neutrophils/100 WBC (Bld) 59.9 % . [facility] No Panel InformationOrdered By: Hood Patel on 05-12-2022 Bedside Glucose Comment See comment [facility] Comment on above: Glu2: Result Not Con firmed Platelet mean volume Auto (B ld) [Entitic vol]Ordered By: Hood Amanda on 05-12-2022 Platelet mean volume (Bld) [Entitic vol] 6.5 fL 6.3-10.7 [facility] Platelets Auto (Bld) [#/Vol] Ordered By: Hood Tanormack on 05-12-2022 Platelets (Bld) [#/Vol] 231 10*3/uL 150-450 [facility] RBC Auto (Bld) [#/Vol]Ordere d By: Hood Patel on 05-12-2022 RBC (Bld) [#/Vol] 4.88 10*6/uL 3.60-5.00 [facility] Vit. B12/Folate Profileon Cobalamin (Vitamin B12) [Mass/Vol] 277 pg/mL Normal 180-914 [facility] Comment on above: Performed By: #### F E and TIBC, KATHY, [id number], CBC #### [facility] [address] Folate 7.9 ng/mL Normal >5.9 [facility] Comment on above: Result Comment: Katelyn te reference range: >5.9 ng/ml The WHO technical consultation on folate and vitamin b12 deficiencies has determined that folate concentrations less than 4 ng/ml are considered deficient. PERFORMED BY: [place] [address] PATHOLOGIST POSTULANT JENY DODGE M.D. Performed By: #### F E and TIBC, KATHY, [id number], CBC #### [facility] [address] COVID-19 FRMCon 05-07-2022 SARS-CoV-2 (COVID-19) RNA CHALINO+probe Ql (Unsp spec) Negative Normal Negative [facility] Comment on above: Order Comment: Healt hcare Worker?: N Result Comment: Testing for SARS-CoV-2 by RT-PCR This test was developed and its performance characteristics determined by Ofelia Feliz (OB10) and validated at the [facility]. This test has not been FDA cleared [...] is terminated or revoked sooner. PERFORMED BY: [place] [address] PATHOLOGIST POSTULANT JENY DODGE M.D. Performed By: #### C OVID 19 [facility] #### [address] COVID-19 Positive/NegativeOr dered By: Hood Patel on 05-07-2022 SARS-CoV-2 (COVID-19) N gene CHALINO+probe Ql (Resp) Negative Negative [facility] Comment on above: Testing for SARS-CoV -2 by RT-PCR This test was developed and its performance characteristics determined by [employer] (OB10) and validated at the [facility]. This test has not been FDA cleared [...] Speci men Type: BLOOD SPECIMEN Ordering Facility: [facility] Address: [address] [place] [address] Performed By: #### 5 7021-8, 92750-9 #### [facility] CLIA [id number] [address] [place] [address] 35882 Basophils/100 WBC (Bld) 0.3 % Normal [facility] Comment on above: Order Comment: Speci men Type: BLOOD SPECIMEN Ordering Facility: [facility] Address: [address] [place] [address] Performed By: #### 5 7021-8, 30942-7 #### [facility] CLIA [id number] [address] [place] [address] 94165 Differential cell count method Nom (Bld) Auto Normal [facility] Comment on above: Order Comment: Speci men Type: BLOOD SPECIMEN Ordering Facility: [facility] Address: [address] [place] [address] Performed By: #### 5 7021-8, 01302-1 #### [facility] CLIA [id number] [address] [place] [address] 62285 Eosinophils (Bld) [#/Vol] 0.09 10*3/uL Normal <0.46 [facility] Comment on above: Order Comment: Speci men Type: BLOOD SPECIMEN Ordering Facility: [facility] Address: [address] [place] [address] Performed By: #### 5 7021-8, 46883-9 #### [facility] CLIA [id number] [address] [place] [address] 07888 Eosinophils/100 WBC (Bld) 1.0 % Normal [facility] Comment on above: Order Comment: Speci men Type: BLOOD SPECIMEN Ordering Facility: [facility] Address: [address] [place], [place] [address] Performed By: #### 5 7021-8, 42742-8 #### [facility] CLIA [id number] [address] [place] [address] 80024 Erythrocyte distribution width (RBC) [Ratio] 20.4 % High 11.5-15.0 [facility] Comment on above: Order Comment: Speci men Type: BLOOD SPECIMEN Ordering Facility: [facility] Address: [address] [place] [address] Performed By: #### 5 7021-8, 17736-7 #### [facility] CLIA [id number] [address] [place] [address] 14022 Hematocrit (Bld) [Volume fraction] 33.1 % Low 36.0-46.0 [facility] Comment on above: Order Comment: Speci men Type: BLOOD SPECIMEN Ordering Facility: [facility] Address: [address] [place] [address] Performed By: #### 5 7021-8, 21395-5 #### [facility] CLIA [id number] [address] [place] [address] 53738 Hemoglobin (Bld) [Mass/Vol] 9.3 g/dL Low 11.5-15.5 [facility] Comment on above: Order Comment: Speci men Type: BLOOD SPECIMEN Ordering Facility: [facility] Address: [address] [place] [address] Performed By: #### 5 7021-8, 75646-9 #### [facility] CLIA [id number] [address] [place] [address] 96544 IMMATURE GRAN % 0.9 % Normal [facility] Comment on above: Order Comment: Speci men Type: BLOOD SPECIMEN Ordering Facility: [facility] Address: [address] [place] [address] Performed By: #### 5 7021-8, 50803-1 #### [facility] CLIA [id number] [address] [place] [address] IMMATURE GRAN ABS 0.08 k/uL Normal <0.10 [facility] Comment on above: Order Comment: Speci men Type: BLOOD SPECIMEN Ordering Facility: [facility] Address: [address] [place] [address] Performed By: #### 5 7021-8, 10604-3 #### [facility] CLIA [id number] [address] [place] [address] 69498 Lymphocytes (Bld) [#/Vol] 2.43 10*3/uL Normal 1.00-4.00 [facility] Comment on above: Order Comment: Speci men Type: BLOOD SPECIMEN Ordering Facility: [facility] Address: [address] [place] [address] Performed By: #### 5 7021-8, 66668-7 #### [facility] CLIA [id number] [address] [place] [address] 48594 Lymphocytes/100 WBC (Bld) 26.6 % Normal [facility] Comment on above: Order Comment: Speci men Type: BLOOD SPECIMEN Ordering Facility: [facility] Address: [address] [place] [address] Performed By: #### 5 7021-8, 59071-6 #### [facility] CLIA [id number] [address] [place] [address] 99616 MCH (RBC) [Entitic mass] 20.2 pg Low 26.0-34.0 [facility] Comment on above: Order Comment: Speci men Type: BLOOD SPECIMEN Ordering Facility: [facility] Address: [address] [place] [address] Performed By: #### 5 7021-8, 13287-7 #### [facility] CLIA [id number] [address] [place] [address] 41655 MCHC (RBC) [Mass/Vol] 28.1 g/dL Low 30.5-36.0 [facility] Comment on above: Order Comment: Speci men Type: BLOOD SPECIMEN Ordering Facility: [facility] Address: [address] Performed By: #### 5 7021-8, 72933-2 #### [facility] CLIA [id number] [address] [place] [address] 31617 MCV (RBC) [Entitic vol] 72.0 fL Low 80.0-100.0 [facility] Comment on above: Order Comment: Speci men Type: BLOOD SPECIMEN Ordering Facility: [facility] Address: [address] [place], [place] [address] Performed By: #### 5 7021-8, 85082-6 #### [facility] CLIA [id number] [address] [place] [address] 72925 Monocytes (Bld) [#/Vol] 0.48 10*3/uL Normal <0.87 [facility] Comment on above: Order Comment: Speci men Type: BLOOD SPECIMEN Ordering Facility: [facility] Address: [address] Performed By: #### 5 7021-8, 83717-8 #### [facility] CLIA [id number] [address] [place] [address] 74458 Monocytes/100 WBC (Bld) 5.3 % Normal [facility] Comment on above: Order Comment: Speci men Type: BLOOD SPECIMEN Ordering Facility: [facility] Address: [address] Performed By: #### 5 7021-8, 13411-6 #### [facility] CLIA [id number] [address] [place] [address] 26121 Neutrophils (Bld) [#/Vol] 6.02 10*3/uL Normal 1.45-7.50 [facility] Comment on above: Order Comment: Speci men Type: BLOOD SPECIMEN Ordering Facility: [facility] Address: [address] [place], [place] [address] Performed By: #### 5 7021-8, 81854-8 #### [facility] CLIA [id number] [address] [place] [address] Neutrophils/100 WBC (Bld) 65.9 % Normal [facility] Comment on above: Order Comment: Speci men Type: BLOOD SPECIMEN Ordering Facility: [facility] Address: [address] [place] [address] Performed By: #### 5 7021-8, 15587-5 #### [facility] CLIA [id number] [address] [place] [address] 02810 Nucleated RBC (Bld) [#/Vol] 10*3/uL Normal <0.01 [facility] Comment on above: Order Comment: Speci men Type: BLOOD SPECIMEN Ordering Facility: [facility] Address: [address] [place] [address] Performed By: #### 5 7021-8, 86559-9 #### [facility] CLIA [id number] [address] [place] [address] 41397 Nucleated RBC/100 WBC (Bld) [Ratio] 0.0 /100 WBC Normal [facility] Comment on above: Order Comment: Speci men Type: BLOOD SPECIMEN Ordering Facility: [facility] Address: [address] [place] [address] Performed By: #### 5 7021-8, 60094-8 #### [facility] CLIA [id number] [address] [place] [address] 21189 Platelet mean volume (Bld) [Entitic vol] 7.7 fL Low 9.0-12.7 [facility] Comment on above: Order Comment: Speci men Type: BLOOD SPECIMEN Ordering Facility: [facility] Address: [address] [place] [address] Performed By: #### 5 7021-8, 73379-8 #### [facility] CLIA [id number] [address] [place] [address] 69894 Platelets (Bld) [#/Vol] 318 10*3/uL Normal 150-400 [facility] Comment on above: Order Comment: Speci men Type: BLOOD SPECIMEN Ordering Facility: [facility] Address: [facility] [place] [id number] Performed By: #### 5 7021-8, 88978-4 #### [facility] CLIA [id number] [address] [place] [address] 11426 RBC (Bld) [#/Vol] 4.60 10*6/uL Normal 3.90-5.20 [facility] Comment on above: Order Comment: Speci men Type: BLOOD SPECIMEN Ordering Facility: [facility] Address: [address] [place], [place] [address] Performed By: #### 5 7021-8, 95858-7 #### [facility] CLIA [id number] [address] [place] [address] 30320 WBC (Bld) [#/Vol] 9.13 10*3/uL Normal 3.70-11.00 [facility] Comment on above: Order Comment: Speci men Type: BLOOD SPECIMEN Ordering Facility: [facility] Address: [address] [place], [place] [address] [id number] Performed By: #### 5 7021-8, 58412-4 #### [facility] CLIA [id number] [address] [place] [address] 50458 CNOVSPon 04-14-2022 OVS Visit (SP) Office ([place]) ROBINA RON ([id number]) 1950 F Date Time Provider Department 04/14/22 1:15 PM CHRISTI FINK During your visit today, we recorded the following information about you: Temperature Pulse Respiration Blood pressure 97.9 degrees 80/minute 16/minute 149/60 Weight Height 53.6 kg 1.524 m Christi Fink MD 04/14/2022 1:13 PM Signed PATIENT NAME: Robina Ron CLINIC NO.: [id number] ATTENDING PHYSICIAN: Christi Fink MD DATE OF [...] sciatica - COPD (chronic obstructive pulmonary disease) ([facility]) - CVA (cerebral vascular accident) ([facility]) - Diabetes mellitus (HCC) - Dyspnea - Factor V Leiden ([facility]) - GERD (gastroesophageal reflux disease) - History of colon polyps - Hyperlipidemia - Hypertension - Hypokalemia - Leukocytosis - JARRET (obstructive sleep apnea) - PAD (peripheral artery disease) ([facility]) - Pericardial effusion Social History Tobacco Use [...] not included)... Normal [facility] CNPNon 04-14-2022 CNPN Telephone ([place]) ROBINA RON ([id number]) 1950 F Date Time Provider Department 04/14/22 CHRISTY BYRD During your visit today, we recorded the following information about you: Christy Byrd RN 04/14/2022 1:25 PM Signed Key Monteiro from [facility] Client Services calls [...] is now seen by Dr Rainey at [facility]. Call placed to their office ([phone]) and message left requesting a call back. PSS: can you please update pt's PCP info. Thanks, JOS Bustamante Pss 04/14/2022 2:03 PM Signed PCP updated in chart Makenna Kendall RN 04/17/2022 10:39 AM Signed Call placed to [facility]. Office is closed. JOS Bustamante RN 04/21/2022 12:55 PM Signed Message left with Dr Rainey's medical microbiologist again today regarding this pt and the urgency of this being addressed. Will try again later today if I don't hear back from their office. JOS Bustamante RN 04/21/2022 1:35 PM Signed Spoke with Pankaj at Dr Rainey's office. Recent records and labs faxed to [phone] per office request. JOS Bustamante RN 04/21/2022 [...] Status:Closed by MAKENNA KENDALL on 04/21/22 Normal [facility] Comprehensive metabolic 2000 panelon 04-14-2022 Albumin [Mass/Vol] 3.5 g/dL Low 3.9-4.9 [facility] Comment on above: Order Comment: Nel sher Type: BLOOD SPECIMEN Ordering Facility: [facility] Address: [address] [place] [address] Performed By: #### 2 4323-8 #### [facility] CLIA [id number] [address] [place] [address] 74577 ALP [Catalytic activity/Vol] 120 U/L Normal 34-123 [facility] Comment on above: Order Comment: Nel sher Type: BLOOD SPECIMEN Ordering Facility: [facility] Address: [address] Performed By: #### 2 4323-8 #### [facility] CLIA [id number] [address] [place] [address] ALT [Catalytic activity/Vol] 15 U/L Normal 7-38 [facility] Comment on above: Order Comment: Speci men Type: BLOOD SPECIMEN Ordering Facility: [facility] Address: [address] Performed By: #### 2 4323-8 #### [facility] CLIA [id number] [address] [place] [address] Anion gap [Moles/Vol] 13 mmol/L Normal 9-18 [facility] Comment on above: Order Comment: Speci men Type: BLOOD SPECIMEN Ordering Facility: [facility] Address: [address] [place] [address] Performed By: #### 2 4323-8 #### [facility] CLIA [id number] [address] [place] [address] 05171 AST [Catalytic activity/Vol] 21 U/L Normal 13-35 [facility] Comment on above: Order Comment: Speci men Type: BLOOD SPECIMEN Ordering Facility: [facility] Address: [address] Performed By: #### 2 4323-8 #### [facility] CLIA [id number] [address] [place] [address] 46722 Bilirubin [Mass/Vol] 0.2 mg/dL Normal 0.2-1.3 [facility] Comment on above: Order Comment: Speci men Type: BLOOD SPECIMEN Ordering Facility: [facility] Address: [address] Performed By: #### 2 4323-8 #### [facility] CLIA [id number] [address] [place] [address] Calcium [Mass/Vol] 9.1 mg/dL Normal 8.5-10.2 [facility] Comment on above: Order Comment: Speci men Type: BLOOD SPECIMEN Ordering Facility: [facility] Address: [address] [place] [address] Performed By: #### 2 4323-8 #### [facility] CLIA [id number] [address] [place] [address] 97706 Chloride [Moles/Vol] 103 mmol/L Normal 97-105 [facility] Comment on above: Order Comment: Speci men Type: BLOOD SPECIMEN Ordering Facility: [facility] Address: [address] [place] [address] Performed By: #### 2 4323-8 #### [facility] CLIA [id number] [address] [place] [address] 35416 CO2 [Moles/Vol] 22 mmol/L Normal 22-30 [facility] Comment on above: Order Comment: Speci men Type: BLOOD SPECIMEN Ordering Facility: [facility] Address: [address] [place] [address] Performed By: #### 2 4323-8 #### [facility] CLIA [id number] [address] [place] [address] 08290 Creatinine [Mass/Vol] 0.53 mg/dL Low 0.58-0.96 [facility] Comment on above: Order Comment: Speci men Type: BLOOD SPECIMEN Ordering Facility: [facility] Address: [address] [place] [address] Performed By: #### 2 4323-8 #### [facility] CLIA [id number] [address] [place] [address] 66491 ESTIMATED GLOMERULAR FILTRATION RATE 99 mL/min/1.73m??? Normal >=60 [facility] Comment on above: Order Comment: Speci men Type: BLOOD SPECIMEN Ordering Facility: [facility] Address: [address] [place] [address] Result Comment: Kaylynn mated Glomerular Filtration Rate [...] GFR. Performed By: #### 2 4323-8 #### [facility] CLIA [id number] [address] [place] [address] Glucose [Mass/Vol] 508 mg/dL High 74-99 [facility] Comment on above: Order Comment: Speci men Type: BLOOD SPECIMEN Ordering Facility: [facility] Address: [address] [place] [address] Result Comment: The [place] [employer] (ADA) provides guidance for cutoff [...] Standards of Medical Care in Diabetes 2016, [place] [employer]. Diabetes Care. 2016.39(Suppl 1). Performed By: #### 2 4323-8 #### [facility] CLIA [id number] [address] [place] [address] Potassium [Moles/Vol] 3.6 mmol/L Low 3.7-5.1 [facility] Comment on above: Order Comment: Speci men Type: BLOOD SPECIMEN Ordering Facility: [facility] Address: [address] [place] [address] Performed By: #### 2 4323-8 #### [facility] CLIA [id number] [address] [place] [address] Protein [Mass/Vol] 5.4 g/dL Low 6.3-8.0 [facility] Comment on above: Order Comment: Speci men Type: BLOOD SPECIMEN Ordering Facility: [facility] Address: [address] [place] [address] Performed By: #### 2 4323-8 #### [facility] CLIA [id number] [address] [place] [address] 61380 Sodium [Moles/Vol] 138 mmol/L Normal 136-144 [facility] Comment on above: Order Comment: Speci men Type: BLOOD SPECIMEN Ordering Facility: [facility] Address: [address] [place] [address] Performed By: #### 2 4323-8 #### [facility] CLIA [id number] [address] [place], [place] [address] Urea nitrogen [Mass/Vol] 8 mg/dL Normal 7-21 [facility] Comment on above: Order Comment: Speci men Type: BLOOD SPECIMEN Ordering Facility: [facility] Address: [address] [place] [address] Performed By: #### 2 4323-8 #### [facility] CLIA [id number] [address] [place] [address]344 Ferritin SerPl-mCncon 2021 Ferritin [Mass/Vol] 15.5 ng/mL Normal 14.7-205.1 [facility] Comment on above: Order Comment: Speci men Type: BLOOD SPECIMEN Ordering Facility: [facility] Address: [address] [place] [address] Performed By: #### 2 276-4, 87074-8 #### [facility] CLIA [id number] [address] [place], [place] [address] [place] GLUCOSE, BLOOD (POC)on 04-14 Glucose [Mass/Vol] 373 mg/dL Abnormal 74 - 99 mg/dL [facility] Iron and Iron binding capaci ty panelon 04-14-2022 Iron [Mass/Vol] 17 ug/dL Low 41-186 [facility] Comment on above: Order Comment: Speci men Type: BLOOD SPECIMEN Ordering Facility: [facility] Address: [address] [place], [place] [address] Performed By: #### 2 276-4, 58340-7 #### [facility] CLIA [id number] [address] [place] [address] [place] Iron binding capacity [Mass/Vol] 337 ug/dL Normal 232-386 [facility] Comment on above: Order Comment: Speci men Type: BLOOD SPECIMEN Ordering Facility: [facility] Address: [address] [place] [address] Performed By: #### 2 276-4, 72733-6 #### [facility] CLIA [id number] [address] [place] [address] [place] Iron/TIBC [Molar ratio] 5.0 % Low 15.0-57.0 [facility] Comment on above: Order Comment: Speci men Type: BLOOD SPECIMEN Ordering Facility: [facility] Address: [address] [place] [address] Performed By: #### 2 276-4, 21145-0 #### [facility] CLIA [id number] [address] [place] [address] [place] Retics #on 04-14-2022 Reticulocytes (Bld) [#/Vol] 0.72757 10*3/uL Normal 0.018-0.100 [facility] Comment on above: Order Comment: Speci men Type: BLOOD SPECIMEN Ordering Facility: [facility] Address: [address] [place], [place] [id number] Performed By: #### 5 7021-8, 49297-8 #### [facility] CLIA [id number] [address] [place] [address] Reticulocytes (Bld) [#/Vol]o n 04-14-2022 Reticulocytes/100 RBC (Bld) 1.8 % Normal 0.4-2.0 [facility] Comment on above: Order Comment: Speci men Type: BLOOD SPECIMEN Ordering Facility: [facility] Address: [address] [place] [address] Performed By: #### 5 7021-8, 41452-1 #### [facility] CLIA [id number] [address] [place] [address] CBC AUTO DIFFon 04-08-2022 BASO # 0.0 103/ul Normal 0.0-0.1 [facility] Comment on above: Performed By: #### A 1C #### [facility] [address] [address] [address] Julisa Lowe Basophils/100 WBC (Bld) 0.4 % Normal 0.2-2.0 [facility] Comment on above: Performed By: #### A 1C #### [facility] [address] [place] [address] Dr. Julisa Lowe EO # 0.2 103/ul Normal 0.0-0.7 [facility] Comment on above: Performed By: #### A 1C #### [facility] [address] [place] [address] Dr. Julisa Lowe Eosinophils/100 WBC (Bld) 1.7 % Normal 0.9-7.0 [facility] Comment on above: Performed By: #### A 1C #### [facility] [address] [place] [address] Dr. Julisa Lowe Erythrocyte distribution width (RBC) [Ratio] 20.8 % Critically high 11.0-15.0 [facility] Comment on above: Performed By: #### A 1C #### [facility] [address] [place] [address] Dr. Julisa Lowe Hematocrit (Bld) [Volume fraction] 34.9 % Critically low 36.0-48.0 [facility] Comment on above: Performed By: #### A 1C #### [facility] [address] [place] [address] Dr. Julisa Lowe Hemoglobin (Bld) [Mass/Vol] 10.0 g/dL Critically low 12.0-16.0 [facility] Comment on above: Performed By: #### A 1C #### [facility] [address] [address] [address] Julisa Lowe IG # 0.08 10e3/ul Critically high 0.00-0.03 [facility] Comment on above: Performed By: #### A 1C #### [facility] [address] [address] [address] Julisa Lowe IG % 0.7 % Critically high 0.0-0.5 [facility] Comment on above: Performed By: #### A 1C #### [facility] [address] [address] [address] Julisa Lowe LYMPH # 3.6 103/ul Normal 1.2-3.8 [facility] Comment on above: Performed By: #### A 1C #### [facility] [address] [place] [address] Dr. Julisa Lowe Lymphocytes/100 WBC (Bld) 33.3 % Normal 20.5-60.0 [facility] Comment on above: Performed By: #### A 1C #### [facility] [address] [place] [address] Dr. Julisa Lowe MANUAL DIFF REQ NO Normal [facility] Comment on above: Performed By: #### A 1C #### [facility] [address] [address] [address] Julisa Lowe MCH (RBC) [Entitic mass] 20.2 pg Critically low 26.7-34.0 [facility] Comment on above: Performed By: #### A 1C #### [facility] [address] [address] [address] Julisa Lowe MCHC (RBC) [Mass/Vol] 28.7 g/dL Critically low 29.9-35.2 [facility] Comment on above: Performed By: #### A 1C #### [facility] [address] [address] [address] Julisa Lowe MCV (RBC) [Entitic vol] 70.6 fL Critically low 81.0-99.0 [facility] Comment on above: Performed By: #### A 1C #### [facility] [address] [address] [address] Julisa Lowe MONO # 0.6 103/ul Normal 0.3-0.8 [facility] Comment on above: Performed By: #### A 1C #### [facility] [address] [place] [address] Dr. Julisa Lowe Monocytes/100 WBC (Bld) 5.4 % Normal 1.7-12.0 [facility] Comment on above: Performed By: #### A 1C #### [facility] [address] [place] [address] Dr. Julisa Lowe NEUT # 6.4 103/ul Normal 1.4-6.5 [facility] Comment on above: Performed By: #### A 1C #### [facility] [address] [place] [address] Dr. Julisa Lowe Neutrophils/100 WBC (Bld) 58.5 % Normal 43.0-75.0 [facility] Comment on above: Performed By: #### A 1C #### [facility] [address] [place] [address] Dr. Julisa Lowe Platelet mean volume (Bld) [Entitic vol] 8.1 fL Critically low 9.5-13.5 [facility] Comment on above: Performed By: #### A 1C #### [facility] [address] [place] [address] Dr. Julisa Lowe PLT 325 103/ul Normal 150-450 [facility] Comment on above: Performed By: #### A 1C #### [facility] [address] [place] [address] Dr. Julisa Lowe RBC 4.94 106/ul Normal 4.20-5.40 [facility] Comment on above: Performed By: #### A 1C #### [facility] [address] [place] [address] Dr. Julisa Lowe WBC 10.9 103/ul Normal 4.0-11.0 [facility] Comment on above: Performed By: #### A 1C #### [facility] [address] [place] [address] Dr. Julisa Lowe FERRITINon 04-08-2022 Ferritin [Mass/Vol] 15.0 ng/mL Normal 8.0-252.0 [facility] Comment on above: Performed By: #### A 1C #### [facility] [address] [address] [address] Julisa Hopkins 04-06-2022 CNPN Telephone (NCCAP) ROBINA RON ([id number]) 1950 F Date Time Provider Department 04/06/22 CHRISTI FINK NCCBLANCA During your visit today, we recorded the following information about you: Makenna Hidalgo Sec 04/06/2022 7:49 AM Signed Please send records to [facility] office thanks! MD Tj Thompson; Makenna Hidalgo Sec Please refer her to GI for an upper endoscopy. ?Thanks Adrienne Weinstein [facility] 04/06/2022 8:12 AM Signed Gladys: Information ready for you. Adrienne Weinstein [facility] Shaye Gonzalez [facility] 04/06/2022 8:57 AM Signed Records faxed to Dr. Rich. Adrienne Weinstein [facility] 04/09/2022 8:40 AM Signed Called Angélica Romano spoke with Kenyatta. She states they have received this referral and their referral dept will be calling patient soon to schedule. I will call back sometime next week check on status of this referral. Adrienne Weinstein [facility] Adrienne Weinstein [facility] 04/13/2022 1:18 PM Signed Called Angélica Romano spoke with Kenyatta. She states they have called left patient message to call them back to schedule. Adrienne Weinstein [facility] Adrienne Weinstein [facility] 04/16/2022 9:07 AM Signed Called Angélica Romano spoke with Kenyatta. She states they have patient scheduled to see Dr Patel on 05/12 for EGD. Adrienne Weinstein [facility] Allergies As of Date: 04/06/2022 Noted Allergy [...] Encounter Status:Closed by TJ HUNTER on 04/16/[address] [facility] CNOVSPon 04-03-2022 CNOVSP Visit (SP) Office ([place]) ROBINA RON ([id number]) 1950 F Date Time Provider Department 04/03/22 4:30 PM CHRISTI FINK During your visit today, we recorded the following information about you: Temperature Pulse Respiration Blood pressure 97.4 degrees 90/minute 16/minute 107/38 Weight Height 53.6 kg 1.524 m Christi Fink MD 04/04/2022 11:07 AM Signed PATIENT NAME: Robina Ron CLINIC NO.: [id number] ATTENDING PHYSICIAN: Christi Fink MD DATE OF [...] not taking: Reported on 03/31/2022 ) - Fktnk-1-JTY-EPA-Fish Oil 1,000 mg (120 mg-180 mg) cap [...] Gender:F Ordering : EDD WADE Admission #: [id number] Family : Order #: [id number] CLICK HERE TO VIEW EXAM ECHOCARDIOGRAM REPORT [...] Area(A4C): 21.60 cm2 Left Atrium Systolic Volume(A2C): 37562 mm3 Left Atrium Systolic Volume(A4C): 33884 mm3 Mitral Valve Right Ventricle Aorta AO Root Diam: 3.10 cm Aortic Valve Tricuspid Valve Pulmonic Valve Right Atrium Dictated by: Alfred Suggs M.D. on 02/06/2022 at 15:55 Approved by: Alfred Suggs M.D. on 02/06/2022 at 16:11 Normal [facility] CBC AUTO DIFFon 01-23-2022 BASO # 0.0 103/ul Normal 0.0-0.1 [facility] Comment on above: Performed By: #### A 1C #### [facility] [address] [place] [address] Dr. Julisa Lowe Basophils/100 WBC (Bld) 0.3 % Normal 0.2-2.0 [facility] Comment on above: Performed By: #### A 1C #### [facility] [address] [place] [address] Dr. Julisa Lowe EO # 0.1 103/ul Normal 0.0-0.7 [facility] Comment on above: Performed By: #### A 1C #### [facility] [address] [place] [address] Dr. Julisa Lowe Eosinophils/100 WBC (Bld) 1.0 % Normal 0.9-7.0 [facility] Comment on above: Performed By: #### A 1C #### [facility] [address] [place] [address] Dr. Julisa Lowe Erythrocyte distribution width (RBC) [Ratio] 18.6 % Critically high 11.0-15.0 [facility] Comment on above: Performed By: #### A 1C #### [facility] [address] [place] [address] Dr. Julisa Lowe Hematocrit (Bld) [Volume fraction] 29.6 % Critically low 36.0-48.0 [facility] Comment on above: Performed By: #### A 1C #### [facility] [address] [place] [address] Dr. Julisa Lowe Hemoglobin (Bld) [Mass/Vol] 8.5 g/dL Critically low 12.0-16.0 [facility] Comment on above: Performed By: #### A 1C #### [facility] [address] [place] [address] Dr. Julisa Lowe IG # 0.09 10e3/ul Critically high 0.00-0.03 [facility] Comment on above: Performed By: #### A 1C #### [facility] [address] [place] [address] Dr. Julisa Lowe IG % 0.7 % Critically high 0.0-0.5 [facility] Comment on above: Performed By: #### A 1C #### [facility] [address] [place] [address] Dr. Julisa Lowe LYMPH # 3.2 103/ul Normal 1.2-3.8 [facility] Comment on above: Performed By: #### A 1C #### [facility] [address] [place] [address] Dr. Julisa Lowe Lymphocytes/100 WBC (Bld) 25.5 % Normal 20.5-60.0 [facility] Comment on above: Performed By: #### A 1C #### [facility] [address] [place] [address] Dr. Julisa Lowe MANUAL DIFF REQ NO Normal [facility] Comment on above: Performed By: #### A 1C #### [facility] [address] [place] [address] Dr. Julisa Lowe MCH (RBC) [Entitic mass] 20.2 pg Critically low 26.7-34.0 [facility] Comment on above: Performed By: #### A 1C #### [facility] [address] [place] [address] Dr. Julisa Lowe MCHC (RBC) [Mass/Vol] 28.7 g/dL Critically low 29.9-35.2 [facility] Comment on above: Performed By: #### A 1C #### [facility] [address] [place] [address] Dr. Julisa Lowe MCV (RBC) [Entitic vol] 70.5 fL Critically low 81.0-99.0 [facility] Comment on above: Performed By: #### A 1C #### [facility] [address] [place] [address] Dr. Julisa Lowe MONO # 0.6 103/ul Normal 0.3-0.8 [facility] Comment on above: Performed By: #### A 1C #### [facility] [address] [place] [address] Dr. Julisa Lowe Monocytes/100 WBC (Bld) 4.8 % Normal 1.7-12.0 [facility] Comment on above: Performed By: #### A 1C #### [facility] [address] [place] [address] Dr. Julisa Lowe NEUT # 8.4 103/ul Critically high 1.4-6.5 [facility] Comment on above: Performed By: #### A 1C #### [facility] [address] [place] [address] Dr. Julisa Lowe Neutrophils/100 WBC (Bld) 67.7 % Normal 43.0-75.0 [facility] Comment on above: Performed By: #### A 1C #### [facility] [address] [place] [address] Dr. Julisa Lowe Platelet mean volume (Bld) [Entitic vol] 7.9 fL Critically low 9.5-13.5 [facility] Comment on above: Performed By: #### A 1C #### [facility] [address] [place] [address] Dr. Julisa Lowe PLT 252 103/ul Normal 150-450 [facility] Comment on above: Performed By: #### A 1C #### [facility] [address] [place] [address] Dr. Julisa Lowe RBC 4.20 106/ul Normal 4.20-5.40 [facility] Comment on above: Performed By: #### A 1C #### [facility] [address] [place] [address] Dr. Julisa Lowe WBC 12.4 103/ul Critically high 4.0-11.0 [facility] Comment on above: Performed By: #### A 1C #### [facility] [address] [place] [address] Dr. Julisa Lowe FERRITINon 01-23-2022 Ferritin [Mass/Vol] 7.0 ng/mL Critically low 8.0-252.0 [facility] Comment on above: Performed By: #### P OCGLUC #### [facility] [address] [place] [address] Dr. Julisa Lowe GLYCOHEMOGLOBIN A1Con 2021 ADA RECOMMENDATION SEE BELOW Normal [facility] Comment on above: Result Comment: ADA RECOMMENDED LIMIT 4.0 - 6.0 ADA THERAPEUTIC TARGET < 7.0 ACTION SUGGESTED > 7.0 Performed By: #### A 1C #### [facility] [address] [place] [address] Dr. Julisa Lowe Glucose [Mass/Vol] 197 mg/dL Normal [facility] Comment on above: Performed By: #### A 1C #### [facility] [address] [place] [address] Dr. Julisa Lowe HbA1c (Bld) [Mass fraction] 8.5 % Critically high 4.5-6.2 [facility] Comment on above: Performed By: #### A 1C #### [facility] [address] [place] [address] Dr. Julisa Lowe TSHon 01-23-2022 TSH 0.501 uIU/mL Normal 0.358-3.740 [facility] Comment on above: Performed By: #### A 1C #### [facility] [address] [place] [address] Dr. Julisa Lowe TSH RANGE SEE BELOW Normal [facility] Comment on above: Result Comment: <0.3 4 UIU/ml HYPERTHYROID 0.34-5.60 UIU/ml EUTHYROID >5.60 UIU/ml HYPOTHYROID Performed By: #### A 1C #### [facility] [address] [place] [address] Dr. Julisa Lowe VIT B12 AND FOLATEon 022 Cobalamin (Vitamin B12) [Mass/Vol] 193.0 pg/mL Normal 193.0-986.0 [facility] Comment on above: Performed By: #### P OCGLUC #### [facility] [address] [place] [address] Dr. Julisa Lowe FOLATE 12.90 ng/mL Normal 8.60-58.90 [facility] Comment on above: Performed By: #### P OCGLUC #### [facility] [address] [place] [address] Dr. Julisa Lowe CULTURE URINEon 12-23-2021 CULTURE [...] F Trimethoprim/Sulfamet hoxazole >=320 R F Normal [facility] Comment on above: Performed By: #### H STROPN #### [facility] [address] [address] [address] Julisa Lowe NM STRESS/REST MULTIon 12-22 NM STRESS/REST MULTI Patient: ROBINA RON Exam Date: 12/22/2021 : 1950 Gender:F Ordering : EDD WOODYANGELICKEERTHI Admission #: [id number] Family : DR CATHERINE SANCHEZ . Order #: [id number] CLICK HERE TO VIEW EXAM RADIOLOGY REPORT [...] M.D. on 12/22/2021 at 12:45 Normal [facility] CBC AUTO DIFFon 12-21-2021 BASO # 0.0 103/ul Normal 0.0-0.1 [facility] Comment on above: Performed By: #### A 1C #### [facility] [address] [address] [address] Julisa Lowe Basophils/100 WBC (Bld) 0.4 % Normal 0.2-2.0 [facility] Comment on above: Performed By: #### A 1C #### [facility] [address] [address] [address] Julisa Lowe EO # 0.1 103/ul Normal 0.0-0.7 [facility] Comment on above: Performed By: #### A 1C #### [facility] [address] [address] [address] Julisa Lowe Eosinophils/100 WBC (Bld) 1.3 % Normal 0.9-7.0 [facility] Comment on above: Performed By: #### A 1C #### [facility] [address] [place] [address] Dr. Julisa Lowe Erythrocyte distribution width (RBC) [Ratio] 19.7 % Critically high 11.0-15.0 [facility] Comment on above: Performed By: #### A 1C #### [facility] [address] [place] [address] Dr. Julisa Lowe Hematocrit (Bld) [Volume fraction] 31.6 % Critically low 36.0-48.0 [facility] Comment on above: Performed By: #### A 1C #### [facility] [address] [place] [address] Dr. Julisa Lowe Hemoglobin (Bld) [Mass/Vol] 9.2 g/dL Critically low 12.0-16.0 [facility] Comment on above: Performed By: #### A 1C #### [facility] [address] [address] [address] Julisa Lowe IG # 0.07 10e3/ul Critically high 0.00-0.03 [facility] Comment on above: Performed By: #### A 1C #### [facility] [address] [place] [address] Dr. Julisa Lowe IG % 0.7 % Critically high 0.0-0.5 [facility] Comment on above: Performed By: #### A 1C #### [facility] [address] [place] [address] Dr. Julisa Lowe LYMPH # 3.2 103/ul Normal 1.2-3.8 [facility] Comment on above: Performed By: #### A 1C #### [facility] [address] [place] [address] Dr. Julisa Lowe Lymphocytes/100 WBC (Bld) 30.8 % Normal 20.5-60.0 [facility] Comment on above: Performed By: #### A 1C #### [facility] [address] [place] [address] Dr. Julisa Lowe MANUAL DIFF REQ NO Normal [facility] Comment on above: Performed By: #### A 1C #### [facility] [address] [place] [address] Dr. Julisa Lowe MCH (RBC) [Entitic mass] 20.4 pg Critically low 26.7-34.0 [facility] Comment on above: Performed By: #### A 1C #### [facility] [address] [place] [address] Dr. Julisa Lowe MCHC (RBC) [Mass/Vol] 29.1 g/dL Critically low 29.9-35.2 [facility] Comment on above: Performed By: #### A 1C #### [facility] [address] [place] [address] Dr. Julisa Lowe MCV (RBC) [Entitic vol] 69.9 fL Critically low 81.0-99.0 [facility] Comment on above: Performed By: #### A 1C #### [facility] [address] [place] [address] Dr. Julisa Lowe MONO # 0.8 103/ul Normal 0.3-0.8 [facility] Comment on above: Performed By: #### A 1C #### [facility] [address] [place] [address] Dr. Julisa Lowe Monocytes/100 WBC (Bld) 7.3 % Normal 1.7-12.0 [facility] Comment on above: Performed By: #### A 1C #### [facility] [address] [place] [address] Dr. Julisa Lowe NEUT # 6.2 103/ul Normal 1.4-6.5 [facility] Comment on above: Performed By: #### A 1C #### [facility] [address] [place] [address] Dr. Julisa Lowe Neutrophils/100 WBC (Bld) 59.5 % Normal 43.0-75.0 [facility] Comment on above: Performed By: #### A 1C #### [facility] [address] [place] [address] Dr. Julisa Lowe Platelet mean volume (Bld) [Entitic vol] 8.4 fL Critically low 9.5-13.5 [facility] Comment on above: Performed By: #### A 1C #### [facility] [address] [place] [address] Dr. Julisa Lowe PLT 301 103/ul Normal 150-450 [facility] Comment on above: Performed By: #### A 1C #### [facility] [address] [place] [address] Dr. Julisa Lowe RBC 4.52 106/ul Normal 4.20-5.40 [facility] Comment on above: Performed By: #### A 1C #### [facility] [address] [place] [address] Dr. Julisa Lowe WBC 10.4 103/ul Normal 4.0-11.0 [facility] Comment on above: Performed By: #### A 1C #### [facility] [address] [place] [address] Dr. Julisa Lowe POINT OF CARE GLUCOSEon 12-12 0-2021 Glucose [Mass/Vol] 183 mg/dL Critically high 74-106 [facility] Comment on above: Performed By: #### P OCGLUC #### [facility] [address] [place] [address] Dr. Julisa Lowe Glucose [Mass/Vol] 351 mg/dL Critically high 74-106 [facility] Comment on above: Performed By: #### H STROPN #### [facility] [address] [address] [address] Julisa Lowe PROF CHEM 8 (BAS METB)on Anion gap [Moles/Vol] 14.6 mmol/L Normal [facility] Comment on above: Performed By: #### S EDR #### [facility] [address] [address] [address] Julisa Lowe Calcium [Mass/Vol] 8.6 mg/dL Normal 8.5-10.1 [facility] Comment on above: Performed By: #### S EDR #### [facility] [address] [address] [address] Julisa Lowe Chloride [Moles/Vol] 107 mmol/L Normal 98-107 [facility] Comment on above: Performed By: #### S EDR #### [facility] [address] [place] [address] Dr. Julisa Lowe CO2 [Moles/Vol] 24.6 mmol/L Normal 22.0-30.0 [facility] Comment on above: Performed By: #### S EDR #### [facility] [address] [place] [address] Dr. Julisa Lowe Creatinine [Mass/Vol] 0.57 mg/dL Normal 0.52-1.04 [facility] Comment on above: Performed By: #### S EDR #### [facility] [address] [place] [address] Dr. Julisa Lowe EGFR-AF JORDANIAN >60 Normal >=60 [facility] Comment on above: Performed By: #### S EDR #### [facility] [address] [place] [address] Dr. Julisa Lowe EGFR-NON AF JORDANIAN >60 Normal >=60 [facility] Comment on above: Performed By: #### S EDR #### [facility] [address] [place] [address] Dr. Julisa Lowe Glucose [Mass/Vol] 189 mg/dL Critically high 74-106 [facility] Comment on above: Performed By: #### S EDR #### [facility] [address] [address] [address] Julisa Lowe Potassium [Moles/Vol] 4.2 mmol/L Normal 3.4-5.0 [facility] [place] Comment on above: Performed By: #### S EDR #### [facility] [address] [address] [address] Julisa Lowe Sodium [Moles/Vol] 142 mmol/L Normal 137-145 The [facility] Comment on above: Performed By: #### S EDR #### [facility] [address] [address] [address] Julisa Lowe Urea nitrogen [Mass/Vol] 16.0 mg/dL Normal 7.0-18.0 [facility] [place] Comment on above: Performed By: #### S EDR #### [facility] [address] [address] [address] Julisa Lowe Urea nitrogen/Creatinine [Mass ratio] 28.1 mg/mg Normal [facility] [place] Comment on above: Performed By: #### S EDR #### [facility] [address] [address] [address] Julisa Lowe BNPon 12-20-2021 Natriuretic peptide B (Bld) [Mass/Vol] 880.0 pg/mL Normal <=900.0 [facility] [place] Comment on above: Performed By: #### H STROPN #### [facility] [address] [place] [address] Dr. Julisa Lowe CARDIAC TRUONG ADMITon 022 CK <20 Critically low 30-135 [facility] Comment on above: Performed By: #### H STROPN #### [facility] [address] [place] [address] Dr. Juilsa Lowe CK.MB [Mass/Vol] ng/mL Normal <=2.37 [facility] Comment on above: Performed By: #### H STROPN #### [facility] [address] [place] [address] Dr. Julisa Lowe HSTROP 15.1 pg/mL Normal 4.0-35.5 [facility] [place] Comment on above: Result Comment: CUT- OFF POINTS HAVE BEEN ESTABLISHED BASED ON THE FOURTH UNIVERSAL DEFINITIONS OF MYOCARDIAL INFARCTION. THE UPPER REFERENCE LIMIT (URL) OF TROPONIN, DEFINED THE 99TH PERCENTILE OF cTnI DISTRIBUTION IN A REFERENCE POPULATION, HAS BEEN CONFIRMED THE DECISION THRESHOLD FOR [place] DIAGNOSIS. Performed By: #### H STROPN #### [facility] [address] [place] [address] Dr. Julisa Lowe RAJ 24.0 ng/mL Normal <=61.5 [facility] Comment on above: Performed By: #### H STROPN #### [facility] [address] [place] [address] Dr. Julisa Lowe CBC AUTO DIFFon 12-20-2021 BASO # 0.1 103/ul Normal 0.0-0.1 [facility] [place] Comment on above: Performed By: #### S EDR #### [facility] [address] [place] [address] Dr. Julisa Lowe Basophils/100 WBC (Bld) 0.5 % Normal 0.2-2.0 [facility] [place] Comment on above: Performed By: #### S EDR #### [facility] [address] [place] [address] Dr. Julisa Lowe EO # 0.1 103/ul Normal 0.0-0.7 [facility] Comment on above: Performed By: #### S EDR #### [facility] [address] [place] [address] Dr. Julisa Lowe Eosinophils/100 WBC (Bld) 1.0 % Normal 0.9-7.0 [facility] Comment on above: Performed By: #### S EDR #### [facility] [address] [place] [address] Dr. Julisa Lowe Erythrocyte distribution width (RBC) [Ratio] 19.8 % Critically high 11.0-15.0 [facility] Comment on above: Result Comment: slig ht poikilocytosis, moderate anisocytosis, Performed By: #### S EDR #### [facility] [address] [place] [address] Dr. Julisa Lowe Hematocrit (Bld) [Volume fraction] 32.7 % Critically low 36.0-48.0 [facility] Comment on above: Performed By: #### S EDR #### [facility] [address] [place] [address] Dr. Julias Lowe Hemoglobin (Bld) [Mass/Vol] 9.6 g/dL Critically low 12.0-16.0 [facility] [place] Comment on above: Performed By: #### S EDR #### [facility] [address] [place] [address] Dr. Julisa Lowe IG # 0.07 10e3/ul Critically high 0.00-0.03 [facility] Comment on above: Performed By: #### S EDR #### [facility] [address] [place] [address] Dr. Julisa Lowe IG % 0.7 % Critically high 0.0-0.5 [facility] Comment on above: Performed By: #### S EDR #### [facility] [address] [place] [address] Dr. Julisa Lowe LYMPH # 3.1 103/ul Normal 1.2-3.8 [facility] [place] Comment on above: Performed By: #### S EDR #### [facility] [address] [place] [address] Dr. Julisa Lowe Lymphocytes/100 WBC (Bld) 29.7 % Normal 20.5-60.0 [facility] [place] Comment on above: Performed By: #### S EDR #### [facility] [address] [place] [address] Dr. Julisa Lowe MANUAL DIFF REQ NO Normal [facility] Comment on above: Performed By: #### S EDR #### [facility] [address] [place] [address] Dr. Julisa Lowe MCH (RBC) [Entitic mass] 20.5 pg Critically low 26.7-34.0 [facility] [place] Comment on above: Performed By: #### S EDR #### [facility] [address] [place] [address] Dr. Julisa Lowe MCHC (RBC) [Mass/Vol] 29.4 g/dL Critically low 29.9-35.2 [facility] [place] Comment on above: Performed By: #### S EDR #### [facility] [address] [address] [address] Julisa Lowe MCV (RBC) [Entitic vol] 69.9 fL Critically low 81.0-99.0 [facility] [place] Comment on above: Result Comment: few ovalocytes, moderate hypochromasia Performed By: #### S EDR #### [facility] [address] [address] [address] Julisa Lowe MONO # 0.6 103/ul Normal 0.3-0.8 [facility] [place] Comment on above: Performed By: #### S EDR #### [facility] [address] [place] [address] Dr. Julisa Lowe Monocytes/100 WBC (Bld) 5.6 % Normal 1.7-12.0 [facility] [place] Comment on above: Performed By: #### S EDR #### [facility] [address] [place] [address] Dr. Julisa Lowe NEUT # 6.5 103/ul Normal 1.4-6.5 [facility] [place] Comment on above: Performed By: #### S EDR #### [facility] [address] [place] [address] Dr. Julisa Lowe Neutrophils/100 WBC (Bld) 62.5 % Normal 43.0-75.0 [facility] [place] Comment on above: Performed By: #### S EDR #### [facility] [address] [place] [address] Dr. Julisa Lowe Platelet mean volume (Bld) [Entitic vol] 8.8 fL Critically low 9.5-13.5 [facility] Comment on above: Performed By: #### S EDR #### [facility] [address] [place] [address] Dr. Julisa Lowe PLT 280 103/ul Normal 150-450 [facility] Comment on above: Performed By: #### S EDR #### [facility] [address] [place] [address] Dr. Julisa Lowe RBC 4.68 106/ul Normal 4.20-5.40 [facility] Comment on above: Performed By: #### S EDR #### [facility] [address] [place] [address] Dr. Julisa Lowe WBC 10.5 103/ul Normal 4.0-11.0 [facility] [place] Comment on above: Performed By: #### S EDR #### [facility] [address] [place] [address] Dr. Julisa Lowe Covid-19 PCR ([facility])on SARS-CoV-2 (COVID-19) RNA CHALINO+probe Ql (Unsp spec) Not detected Normal NOT DETECTED [facility] Comment on above: Result Comment: When [...] for this test is supported by the [place] of Health and Human Service's declaration that [...] used). Performed By: #### P OCGLUC #### [facility] [address] [place] [address] Dr. Julisa Lowe ER URINE PROFILEon 2 Bilirubin Ql (U) Negative Normal NEGATIVE [facility] Comment on above: Performed By: #### S EDR #### [facility] [address] [place] [address] Dr. Julisa Lowe Clarity (U) SL CLOUDY Abnormal CLEAR [facility] Comment on above: Performed By: #### S EDR #### [facility] [address] [place] [address] Dr. Julisa Lowe Color (U) LT. YELLOW Normal YELLOW [facility] Comment on above: Performed By: #### S EDR #### [facility] [address] [place] [address] Dr. Julisa DAY A micrscopic examination will be performed if indicated. Normal [facility] Comment on above: Performed By: #### S EDR #### [facility] [address] [place] [address] Dr. Julisa Lowe Glucose Ql (U) Negative Normal NEGATIVE [facility] Comment on above: Performed By: #### S EDR #### [facility] [address] [place] [address] Dr. Julisa Lowe Hemoglobin Ql (U) Negative Normal NEGATIVE [facility] Comment on above: Performed By: #### S EDR #### [facility] [address] [place] [address] Dr. Julisa Lowe Ketones Ql (U) Negative Normal NEGATIVE [facility] [place] Comment on above: Performed By: #### S EDR #### [facility] [address] [place] [address] Dr. Julisa Lowe LEUKOCYTES TRACE Abnormal NEGATIVE [facility] [place] Comment on above: Performed By: #### S EDR #### [facility] [address] [place] [address] Dr. Julisa Lowe Nitrite Ql (U) Negative Normal NEGATIVE [facility] [place] Comment on above: Performed By: #### S EDR #### [facility] [address] [place] [address] Dr. Julisa Lowe pH (U) 7.5 [pH] Normal 5-9 [facility] Comment on above: Performed By: #### S EDR #### [facility] [address] [place] [address] Dr. Julisa Lowe Protein (U) [Mass/Vol] 100 mg/dL Abnormal NEGAT CRISTOPHER/ TRACE [facility] Comment on above: Performed By: #### S EDR #### [facility] [address] [place] [address] Dr. Julisa Lowe SPEC GRAVITY 1.020 Normal 1.005-<=1.025 [facility] Comment on above: Performed By: #### S EDR #### [facility] [address] [place] [address] Dr. Julisa Lowe UR MICRO IND INDICATED Normal [facility] [place] Comment on above: Performed By: #### S EDR #### [facility] [address] [place] [address] Dr. Julisa Lowe Urobilinogen Qn (U) 0.2 {Shirley'U}/dL Normal 0.2 - 1. 0 [facility] [place] Comment on above: Performed By: #### S EDR #### [facility] [address] [place] [address] Dr. Julisa Lowe POINT OF CARE GLUCOSEon 04-0 Glucose [Mass/Vol] 145 mg/dL Critically high 74-106 [facility] Comment on above: Performed By: #### S EDR #### [facility] [address] [place] [address] Dr. Julisa Lowe PROF 14(COMP METB)on 022 Albumin [Mass/Vol] 3.0 g/dL Critically low 3.4-5.0 [facility] Comment on above: Performed By: #### H STROPN #### [facility] [address] [place] [address] Dr. Julisa Lowe Albumin/Globulin [Mass ratio] 1.0 {ratio} Normal [facility] [place] Comment on above: Performed By: #### H STROPN #### [facility] [address] [place] [address] Dr. Julisa Lowe ALP [Catalytic activity/Vol] 110 U/L Normal 46-116 [facility] [place] Comment on above: Performed By: #### H STROPN #### [facility] [address] [place] [address] Dr. Julisa Lowe ALT [Catalytic activity/Vol] 18 U/L Normal 14-59 [facility] [place] Comment on above: Performed By: #### H STROPN #### [facility] [address] [address] [address] Julisa Lowe Anion gap [Moles/Vol] 13.4 mmol/L Normal [facility] Comment on above: Performed By: #### H STROPN #### [facility] [address] [address] [address] Julisa Lowe AST [Catalytic activity/Vol] 8 U/L Critically low 15-37 [facility] [place] Comment on above: Performed By: #### H STROPN #### [facility] [address] [place] [address] Dr. Julisa Lowe Bilirubin [Mass/Vol] 0.3 mg/dL Normal 0.2-1.3 [facility] [place] Comment on above: Performed By: #### H STROPN #### [facility] [address] [place] [address] Dr. Julisa Lowe Calcium [Mass/Vol] 8.5 mg/dL Normal 8.5-10.1 [facility] Comment on above: Performed By: #### H STROPN #### [facility] [address] [place] [address] Dr. Julisa Lowe Chloride [Moles/Vol] 106 mmol/L Normal 98-107 [facility] [place] Comment on above: Performed By: #### H STROPN #### [facility] [address] [place] [address] Dr. Julisa Lowe CO2 [Moles/Vol] 26.3 mmol/L Normal 22.0-30.0 [facility] Comment on above: Performed By: #### H STROPN #### [facility] [address] [place] [address] Dr. Julisa Lowe Creatinine [Mass/Vol] 0.52 mg/dL Normal 0.52-1.04 [facility] [place] Comment on above: Performed By: #### H STROPN #### [facility] [address] [place] [address] Dr. Julisa Lowe EGFR-AF JORDANIAN >60 Normal >=60 [facility] Comment on above: Performed By: #### H STROPN #### [facility] [address] [place] [address] Dr. Julisa Lowe EGFR-NON AF JORDANIAN >60 Normal >=60 [facility] [place] Comment on above: Performed By: #### H STROPN #### [facility] [address] [place] [address] Dr. Julisa Lowe Globulin (S) [Mass/Vol] 3.0 g/dL Normal [facility] [place] Comment on above: Performed By: #### H STROPN #### [facility] [address] [address] [address] Julisa Lowe Glucose [Mass/Vol] 147 mg/dL Critically high 74-[address] [facility] Comment on above: Performed By: #### H STROPN #### [facility] [address] [place] [address] Dr. Julisa Lowe Potassium [Moles/Vol] 3.7 mmol/L Normal 3.4-5.0 [facility] [place] Comment on above: Performed By: #### H STROPN #### [facility] [address] [place] [address] Dr. Julisa Lowe Protein [Mass/Vol] 6.0 g/dL Critically low 6.1-8.2 [facility] Comment on above: Performed By: #### H STROPN #### [facility] [address] [place] [address] Dr. Julisa Lowe Sodium [Moles/Vol] 142 mmol/L Normal 137-145 [facility] Comment on above: Performed By: #### H STROPN #### [facility] [address] [place] [address] Dr. Julisa Lowe Urea nitrogen [Mass/Vol] 13.0 mg/dL Normal 7.0-18.0 [facility] [place] Comment on above: Performed By: #### H STROPN #### [facility] [address] [place] [address] Dr. Julisa Lowe Urea nitrogen/Creatinine [Mass ratio] 25.0 mg/mg Normal [facility] [place] Comment on above: Performed By: #### H STROPN #### [facility] [address] [place] [address] Dr. Julisa Lowe PROTIMEon 12-20-2021 INR Coag (PPP) [Relative time] 0.94 {INR} Normal [facility] Comment on above: Performed By: #### S EDR #### [facility] [address] [place] [address] Dr. Julisa Lowe INR GUIDELINES SEE BELOW Normal [facility] [place] Comment on above: Result Comment: NHI RED INR: 2.0 - 3.0 CONDITIONS NOT LISTED BELOW 2.5 - 3.5 FOR PROSTHETIC HEART VALVE REPLACEMENT 2.5 - 3.5 RECURRENT THROMBOSIS Performed By: #### S EDR #### [facility] [address] [address] [address] Julisa Lowe PT Coag (PPP) [Time] 10.2 s Normal 9.0-11.6 [facility] [place] Comment on above: Performed By: #### S EDR #### [facility] [address] [place] [address] Dr. Julisa Lowe PTTon 12-20-2021 aPTT Coag (Bld) [Time] 21.7 s Critically low 22.3-36.2 [facility] [place] Comment on above: Performed By: #### S EDR #### [facility] [address] [place] [address] Dr. Julisa Lowe TROPONIN, HIGH SENSITIVITYon 12-20-2021 HSTROP 16.3 pg/mL Normal 4.0-35.5 [facility] Comment on above: Result Comment: CUT- OFF POINTS HAVE BEEN ESTABLISHED BASED ON THE FOURTH UNIVERSAL DEFINITIONS OF MYOCARDIAL INFARCTION. THE UPPER REFERENCE LIMIT (URL) OF TROPONIN, DEFINED THE 99TH PERCENTILE OF cTnI DISTRIBUTION IN A REFERENCE POPULATION, HAS BEEN CONFIRMED THE DECISION THRESHOLD FOR [place] DIAGNOSIS. Performed By: #### P OCGLUC #### [facility] [address] [place] [address] Dr. Julisa Lowe HSTROP 16.8 pg/mL Normal 4.0-35.5 [facility] Comment on above: Result Comment: CUT- OFF POINTS HAVE BEEN ESTABLISHED BASED ON THE FOURTH UNIVERSAL DEFINITIONS OF MYOCARDIAL INFARCTION. THE UPPER REFERENCE LIMIT (URL) OF TROPONIN, DEFINED THE 99TH PERCENTILE OF cTnI DISTRIBUTION IN A REFERENCE POPULATION, HAS BEEN CONFIRMED THE DECISION THRESHOLD FOR [place] DIAGNOSIS. Performed By: #### H STROPN #### [facility] [address] [place] [address] Dr. Julisa Lowe URINE MICROSCOPIC ONLYon BACTERIA LARGE Abnormal NONE SEEN [facility] Comment on above: Performed By: #### S EDR #### [facility] [address] [place] [address] Dr. Julisa Lowe Bacteria identified Cx Nom (U) INDICATED Normal [facility] Comment on above: Performed By: #### S EDR #### [facility] [address] [place] [address] Dr. Julisa Lowe CAST NONE SEEN Normal NONE SEEN [facility] Comment on above: Performed By: #### S EDR #### [facility] [address] [place] [address] Dr. Julisa Lowe Crystals LM Nom (Urine sed) NONE SEEN Normal NONE SEEN [facility] Comment on above: Performed By: #### S EDR #### [facility] [address] [place] [address] Dr. Julisa Lowe Epithelial cells LM Ql (Urine sed) FEW Abnormal NONE SEEN /RARE [facility] Comment on above: Performed By: #### S EDR #### [facility] [address] [place] [address] Dr. Julisa Lowe MUCOUS NONE SEEN Normal NONE SEEN [facility] Comment on above: Performed By: #### S EDR #### [facility] [address] [place] [address] Dr. Julisa Lowe RBC 0-2 Normal 0-2 [facility] Comment on above: Performed By: #### S EDR #### [facility] [address] [place] [address] Dr. Julisa Lowe WBC 10-20 Abnormal NONE SEEN [facility] Comment on above: Performed By: #### S EDR #### [facility] [address] [place] [address] Dr. Julisa Lowe XR CHEST 1 Von [...] NGOZI NELSON Date: 2021-12-20 15:58 Normal [facility] JOSEE by IFAon 12-18-2021 Antinuclear Antibodies, IFA Negative Normal [facility] Comment on above: Result Comment: Nega tive <1:80 Borderline 1:80 Positive >1:80 ICAP nomenclature: AC-0 For more information about Hep-2 cell patterns use ANApatterns.org, the official website for the International Consensus on Antinuclear Antibody (JOSEE) Patterns (ICAP). Performed By: #### H STROPN #### [facility] [address] [place] [address] Dr. Julisa Lowe CBC AUTO DIFFon 12-15-2021 BASO # 0.0 103/ul Normal 0.0-0.1 [facility] [place] Comment on above: Performed By: #### A 1C #### [facility] [address] [place] [address] Dr. Julisa Lowe Basophils/100 WBC (Bld) 0.3 % Normal 0.2-2.0 [facility] [place] Comment on above: Performed By: #### A 1C #### [facility] [address] [place] [address] Dr. Julisa Lowe EO # 0.1 103/ul Normal 0.0-0.7 [facility] Comment on above: Performed By: #### A 1C #### [facility] [address] [place] [address] Dr. Julisa Lowe Eosinophils/100 WBC (Bld) 0.9 % Normal 0.9-7.0 [facility] [place] Comment on above: Performed By: #### A 1C #### [facility] [address] [place] [address] Dr. Julisa Lowe Erythrocyte distribution width (RBC) [Ratio] 19.6 % Critically high 11.0-15.0 [facility] [place] Comment on above: Performed By: #### A 1C #### [facility] [address] [place] [address] Dr. Julisa Lowe Hematocrit (Bld) [Volume fraction] 33.8 % Critically low 36.0-48.0 [facility] [place] Comment on above: Performed By: #### A 1C #### [facility] [address] [place] [address] Dr. Julisa Lowe Hemoglobin (Bld) [Mass/Vol] 9.7 g/dL Critically low 12.0-16.0 [facility] [place] Comment on above: Performed By: #### A 1C #### [facility] [address] [place] [address] Dr. Julisa Lowe IG # 0.13 10e3/ul Critically high 0.00-0.03 [facility] Comment on above: Performed By: #### A 1C #### [facility] [address] [place] [address] Dr. Julisa Lowe IG % 0.9 % Critically high 0.0-0.5 [facility] Comment on above: Performed By: #### A 1C #### [facility] [address] [place] [address] Dr. Julisa Lowe LYMPH # 3.5 103/ul Normal 1.2-3.8 [facility] [place] Comment on above: Performed By: #### A 1C #### [facility] [address] [place] [address] Dr. Julisa Lowe Lymphocytes/100 WBC (Bld) 25.4 % Normal 20.5-60.0 [facility] [place] Comment on above: Performed By: #### A 1C #### [facility] [address] [place] [address] Dr. Julisa Lowe MANUAL DIFF REQ NO Normal [facility] Comment on above: Performed By: #### A 1C #### [facility] [address] [place] [address] Dr. Julisa Lowe MCH (RBC) [Entitic mass] 20.4 pg Critically low 26.7-34.0 [facility] [place] Comment on above: Performed By: #### A 1C #### [facility] [address] [address] [address] Julisa Lowe MCHC (RBC) [Mass/Vol] 28.7 g/dL Critically low 29.9-35.2 [facility] [place] Comment on above: Performed By: #### A 1C #### [facility] [address] [address] [address] Julisa Lowe MCV (RBC) [Entitic vol] 71.2 fL Critically low 81.0-99.0 [facility] [place] Comment on above: Performed By: #### A 1C #### [facility] [address] [address] [address] Julisa Lowe MONO # 0.7 103/ul Normal 0.3-0.8 [facility] [place] Comment on above: Performed By: #### A 1C #### [facility] [address] [place] [address] Dr. Julisa Lowe Monocytes/100 WBC (Bld) 5.0 % Normal 1.7-12.0 [facility] [place] Comment on above: Performed By: #### A 1C #### [facility] [address] [address] [address] Julisa Lowe NEUT # 9.3 103/ul Critically high 1.4-6.5 [facility] Comment on above: Performed By: #### A 1C #### [facility] [address] [place] [address] Dr. Julisa Lowe Neutrophils/100 WBC (Bld) 67.5 % Normal 43.0-75.0 [facility] Comment on above: Performed By: #### A 1C #### [facility] [address] [address] [address] Julisa Lowe Platelet mean volume (Bld) [Entitic vol] 8.2 fL Critically low 9.5-13.5 [facility] [place] Comment on above: Performed By: #### A 1C #### [facility] [address] [address] [address] Julisa Lowe PLT 301 103/ul Normal 150-450 [facility] Comment on above: Performed By: #### A 1C #### [facility] [address] [place] [address] Dr. Julisa Lowe RBC 4.75 106/ul Normal 4.20-5.40 [facility] Comment on above: Result Comment: HYPO CHROMIA 3+ Performed By: #### A 1C #### [facility] [address] [place] [address] Dr. Julisa Lowe WBC 13.8 103/ul Critically high 4.0-11.0 [facility] Comment on above: Performed By: #### A 1C #### [facility] [address] [place] [address] Dr. Julisa Lowe CRPon 12-15-2021 CRP [Mass/Vol] mg/L Normal <=1.0 [facility] Comment on above: Performed By: #### C MP, CRP, TSH #### [facility] [address] [place] [address] Dr. Julisa Lowe FREE T4on 12-15-2021 Free T4 [Mass/Vol] 1.04 ng/dL Normal 0.78-2.19 The [facility] Comment on above: Performed By: #### S EDR #### [facility] [address] [place] [address] Dr. Julisa Lowe PROF 14(COMP METB)on 022 Albumin [Mass/Vol] 3.4 g/dL Normal 3.4-5.0 The [facility] Comment on above: Performed By: #### C MP, CRP, TSH #### [facility] [address] [place] [address] Dr. Julisa Lowe Albumin/Globulin [Mass ratio] 1.1 {ratio} Normal [facility] Comment on above: Performed By: #### C MP, CRP, TSH #### [facility] [address] [place] [address] Dr. Julisa Lowe ALP [Catalytic activity/Vol] 120 U/L Critically high 46-116 [facility] Comment on above: Performed By: #### C MP, CRP, TSH #### [facility] [address] [place] [address] Dr. Julisa Lowe ALT [Catalytic activity/Vol] 28 U/L Normal 14-59 [facility] Comment on above: Performed By: #### C MP, CRP, TSH #### [facility] [address] [place] [address] Dr. Julisa Lowe Anion gap [Moles/Vol] 12.7 mmol/L Normal [facility] Comment on above: Performed By: #### C MP, CRP, TSH #### [facility] [address] [place] [address] Dr. Julisa Lowe AST [Catalytic activity/Vol] 13 U/L Critically low 15-37 [facility] Comment on above: Performed By: #### C MP, CRP, TSH #### [facility] [address] [place] [address] Dr. Julisa Lowe Bilirubin [Mass/Vol] 0.3 mg/dL Normal 0.2-1.3 [facility] Comment on above: Performed By: #### C MP, CRP, TSH #### [facility] [address] [place] [address] Dr. Julisa Lowe Calcium [Mass/Vol] 8.4 mg/dL Critically low 8.5-10.1 [facility] Comment on above: Performed By: #### C MP, CRP, TSH #### [facility] [address] [place] [address] Dr. Julisa Lowe Chloride [Moles/Vol] 106 mmol/L Normal 98-107 [facility] Comment on above: Performed By: #### C MP, CRP, TSH #### [facility] [address] [place] [address] Dr. Julisa Lowe CO2 [Moles/Vol] 25.8 mmol/L Normal 22.0-30.0 [facility] Comment on above: Performed By: #### C MP, CRP, TSH #### [facility] [address] [place] [address] Dr. Julisa Lowe Creatinine [Mass/Vol] 0.68 mg/dL Normal 0.52-1.04 [facility] Comment on above: Performed By: #### C MP, CRP, TSH #### [facility] [address] [address] [address] Julisa Lowe EGFR-AF JORDANIAN >60 Normal >=60 [facility] Comment on above: Performed By: #### C MP, CRP, TSH #### [facility] [address] [address] [address] Julisa Lowe EGFR-NON AF JORDANIAN >60 Normal >=60 [facility] Comment on above: Performed By: #### C MP, CRP, TSH #### [facility] [address] [address] [address] Julisa Lowe Globulin (S) [Mass/Vol] 3.2 g/dL Normal [facility] Comment on above: Performed By: #### C MP, CRP, TSH #### [facility] [address] [place] [address] Dr. Julisa Lowe Glucose [Mass/Vol] 222 mg/dL Critically high 74-[address] [facility] Comment on above: Performed By: #### C MP, CRP, TSH #### [facility] [address] [place] [address] Dr. Julisa Lowe Potassium [Moles/Vol] 3.5 mmol/L Normal 3.4-5.0 [facility] Comment on above: Performed By: #### C MP, CRP, TSH #### [facility] [address] [place] [address] Dr. Julisa Lowe Protein [Mass/Vol] 6.6 g/dL Normal 6.1-8.2 The [facility] Comment on above: Performed By: #### C MP, CRP, TSH #### [facility] [address] [place] [address] Dr. Julisa Lowe Sodium [Moles/Vol] 141 mmol/L Normal 137-145 The [facility] Comment on above: Performed By: #### C MP, CRP, TSH #### [facility] [address] [place] [address] Dr. Julisa Lowe Urea nitrogen [Mass/Vol] 14.0 mg/dL Normal 7.0-18.0 [facility] Comment on above: Performed By: #### C MP, CRP, TSH #### [facility] [address] [place] [address] Dr. Julisa Lowe Urea nitrogen/Creatinine [Mass ratio] 20.6 mg/mg Normal [facility] Comment on above: Performed By: #### C MP, CRP, TSH #### [facility] [address] [place] [address] Dr. Julisa Lwoe [facility] SED [facility]ATE 10 mm/hr Normal <=30 [facility] Comment on above: Performed By: #### S EDR #### [facility] [address] [place] [address] Dr. Julisa Lowe TSHon 12-15-2021 TSH 0.747 uIU/mL Normal 0.470-4.680 [facility] Comment on above: Performed By: #### C MP, CRP, TSH #### [facility] [address] [place] [address] Dr. Julisa Lowe TSH RANGE SEE BELOW Normal [facility] Comment on above: Result Comment: <0.3 4 UIU/ml HYPERTHYROID 0.34-5.60 UIU/ml EUTHYROID >5.60 UIU/ml HYPOTHYROID Performed By: #### C MP, CRP, TSH #### [facility] [address] [place] [address] Dr. Julisa Lowe ECHOCARDIO M/2D COMPLETEon 0 12-04-2021 ECHOCARDIO M/2D COMPLETE Patient: ROBINA RON Exam Date: 12/04/2021 : 1950 Gender:F Ordering : SHAIKH Chaparrita SPARKS . Admission #: [id number] Family : Order #: [id number] CLICK HERE TO VIEW EXAM ECHOCARDIOGRAM REPORT [...] Area(A4C): 21.50 cm2 Left Atrium Systolic Volume(A2C): 52543 mm3 Left Atrium Systolic Volume(A4C): 76652 mm3 Mitral Valve MV E to A [...] Fuchs M.D. on 12/04/2021 at 18:31 Normal [facility] CBC AUTO DIFFon 09-10-2021 BASO # 0.1 103/ul Normal 0.0-0.1 [facility] Comment on above: Performed By: #### S EDR #### [facility] [address] [address] [address] Julisa Lowe Basophils/100 WBC (Bld) 0.4 % Normal 0.2-2.0 [facility] Comment on above: Performed By: #### S EDR #### [facility] [address] [address] [address] Julisa Lowe EO # 0.2 103/ul Normal 0.0-0.7 [facility] Comment on above: Performed By: #### S EDR #### [facility] [address] [address] [address] Julisa Lowe Eosinophils/100 WBC (Bld) 1.2 % Normal 0.9-7.0 [facility] Comment on above: Performed By: #### S EDR #### [facility] [address] [address] [address] Julisa Lowe Erythrocyte distribution width (RBC) [Ratio] 17.8 % Critically high 11.0-15.0 [facility] Comment on above: Performed By: #### S EDR #### [facility] [address] [place] [address] Dr. Julisa Lowe Hematocrit (Bld) [Volume fraction] 36.6 % Normal 36.0-48.0 [facility] Comment on above: Performed By: #### S EDR #### [facility] [address] [address] [address] Julisa Lowe Hemoglobin (Bld) [Mass/Vol] 10.1 g/dL Critically low 12.0-16.0 [facility] Comment on above: Performed By: #### S EDR #### [facility] [address] [address] [address] Julisa Lowe IG # 0.08 10e3/ul Critically high 0.00-0.03 [facility] Comment on above: Performed By: #### S EDR #### [facility] [address] [address] [address] Julisa Lowe IG % 0.6 % Critically high 0.0-0.5 [facility] Comment on above: Performed By: #### S EDR #### [facility] [address] [address] [address] Julisa Lowe LYMPH # 3.1 103/ul Normal 1.2-3.8 [facility] Comment on above: Performed By: #### S EDR #### [facility] [address] [address] [address] Julisa Lowe Lymphocytes/100 WBC (Bld) 23.2 % Normal 20.5-60.0 [facility] Comment on above: Performed By: #### S EDR #### [facility] [address] [address] [address] Julisa Lowe MANUAL DIFF REQ NO Normal [facility] Comment on above: Performed By: #### S EDR #### [facility] [address] [address] [address] Julisa Lowe MCH (RBC) [Entitic mass] 20.9 pg Critically low 26.7-34.0 [facility] Comment on above: Performed By: #### S EDR #### [facility] [address] [address] [address] Julisa Lowe MCHC (RBC) [Mass/Vol] 27.6 g/dL Critically low 29.9-35.2 [facility] Comment on above: Performed By: #### S EDR #### [facility] [address] [address] [address] Julisa Lowe MCV (RBC) [Entitic vol] 75.8 fL Critically low 81.0-99.0 [facility] Comment on above: Performed By: #### S EDR #### [facility] [address] [address] [address] Julisa Lowe MONO # 0.7 103/ul Normal 0.3-0.8 [facility] Comment on above: Performed By: #### S EDR #### [facility] [address] [address] [address] Julisa Lowe Monocytes/100 WBC (Bld) 5.1 % Normal 1.7-12.0 [facility] Comment on above: Performed By: #### S EDR #### [facility] [address] [place] [address] Dr. Julisa Lowe NEUT # 9.3 103/ul Critically high 1.4-6.5 [facility] Comment on above: Performed By: #### S EDR #### [facility] [address] [place] [address] Dr. Julisa Lowe Neutrophils/100 WBC (Bld) 69.5 % Normal 43.0-75.0 [facility] Comment on above: Performed By: #### S EDR #### [facility] [address] [place] [address] Dr. Julisa Lowe Platelet mean volume (Bld) [Entitic vol] 8.2 fL Critically low 9.5-13.5 [facility] Comment on above: Performed By: #### S EDR #### [facility] [address] [place] [address] Dr. Julisa Lowe PLT 303 103/ul Normal 150-450 [facility] Comment on above: Performed By: #### S EDR #### [facility] [address] [place] [address] Dr. Julisa Lowe RBC 4.83 106/ul Normal 4.20-5.40 [facility] Comment on above: Performed By: #### S EDR #### [facility] [address] [address] [address] Julisa Lowe WBC 13.4 103/ul Critically high 4.0-11.0 [facility] Comment on above: Performed By: #### S EDR #### [facility] [address] [address] [address] Julisa Lowe GLYCOHEMOGLOBIN A1Con 2020 ADA RECOMMENDATION ADA THERAPEUTIC TARGET 6.0 - 7.0 ACTION SUGGESTED > 7.0 Normal [facility] Comment on above: Performed By: #### A 1C #### [facility] [address] [address] [address] Julisa Lowe Glucose [Mass/Vol] 151 mg/dL Normal [facility] Comment on above: Performed By: #### A 1C #### [facility] [address] [address] [address] Julisa Lowe HbA1c (Bld) [Mass fraction] 6.9 % Critically high <=6.0 [facility] Comment on above: Performed By: #### A 1C #### [facility] [address] [address] [address] Julisa Lowe LIPID PROFILEon 09-10-2021 CHOL-HDL RATIO NORM SEE BELOW Normal [facility] Comment on above: Result Comment: 3.3 - 4.4 LOW RISK 4.4 - 7.1 AVERAGE RISK 7.1 - 11.0 MODERATE RISK >11.0 HIGH RISK Performed By: #### A 1C #### [facility] [address] [address] [address] Julisa Lowe Cholesterol [Mass/Vol] 121 mg/dL Normal <=200 [facility] Comment on above: Performed By: #### A 1C #### [facility] [address] [address] [address] Julisa Lowe Cholesterol in HDL [Mass/Vol] 55 mg/dL Normal [facility] Comment on above: Performed By: #### A 1C #### [facility] [address] [address] [address] Julisa Lowe Cholesterol in LDL [Mass/Vol] 46.8 mg/dL Normal [facility] Comment on above: Performed By: #### A 1C #### [facility] [address] [place] [address] Dr. Julisa Lowe Cholesterol.total/Chol esterol in HDL [Mass ratio] 2.2 {ratio} Normal [facility] Comment on above: Performed By: #### A 1C #### [facility] [address] [address] [address] Julisa Lowe HDL NORMAL > or = 60 mg/dl - LO W CARDIOVASCULAR RISK <40 mg/dl - HIGH CARDIOVASCULAR RISK Normal [facility] Comment on above: Performed By: #### A 1C #### [facility] [address] [place] [address] Dr. Julisa Lowe LDL CALC NORMAL SEE BELOW Normal [facility] Comment on above: Result Comment: <100 mg/dl OPTIMAL 100 - 129 mg/dl NEAR OR ABOVE OPTIMAL 130 - 159 mg/dl BORDERLINE HIGH 160 - 189 mg/dl HIGH >190 mg/dl VERY HIGH Performed By: #### A 1C #### [facility] [address] [place] [address] Dr. Julisa Lowe Triglyceride [Mass/Vol] 96 mg/dL Normal <=150 [facility] Comment on above: Performed By: #### A 1C #### [facility] [address] [place] [address] Dr. Julisa Lowe VLDL CALC 19.2 mg/dL Normal [facility] Comment on above: Performed By: #### A 1C #### [facility] [address] [place] [address] Dr. Julisa Lowe MICROALBUMIN, RAND URon 08-14 mALB 33.4 mg/L Critically high <=30.0 [facility] Comment on above: Performed By: #### S EDR #### [facility] [address] [place] [address] Dr. Julisa Lowe PROF 14(COMP METB)on 021 Albumin [Mass/Vol] 3.4 g/dL Critically low 3.5-5.0 Th [facility] Comment on above: Performed By: #### A 1C #### [facility] [address] [address] [address] Julisa Lowe Albumin/Globulin [Mass ratio] 1.3 {ratio} Normal [facility] Comment on above: Performed By: #### A 1C #### [facility] [address] [place] [address] Dr. Julisa Lowe ALP [Catalytic activity/Vol] 74 U/L Normal 38-126 [facility] Comment on above: Performed By: #### A 1C #### [facility] [address] [place] [address] Dr. Julisa Lowe ALT [Catalytic activity/Vol] 11 U/L Normal 9-52 [facility] Comment on above: Performed By: #### A 1C #### [facility] [address] [place] [address] Dr. Julisa Lowe Anion gap [Moles/Vol] 18.2 mmol/L Normal [facility] Comment on above: Performed By: #### A 1C #### [facility] [address] [place] [address] Dr. Julisa Lowe AST [Catalytic activity/Vol] 12 U/L Critically low 14-36 [facility] Comment on above: Performed By: #### A 1C #### [facility] [address] [place] [address] Dr. Julisa Lowe Bilirubin [Mass/Vol] 0.3 mg/dL Normal 0.2-1.3 [facility] Comment on above: Performed By: #### A 1C #### [facility] [address] [place] [address] Dr. Julisa Lowe Calcium [Mass/Vol] 9.3 mg/dL Normal 8.4-10.2 [facility] Comment on above: Performed By: #### A 1C #### [facility] [address] [place] [address] Dr. Julisa Lowe Chloride [Moles/Vol] 105 mmol/L Normal 98-107 [facility] Comment on above: Performed By: #### A 1C #### [facility] [address] [address] [address] Julisa Lowe Creatinine [Mass/Vol] 0.62 mg/dL Normal 0.52-1.04 [facility] Comment on above: Performed By: #### A 1C #### [facility] [address] [address] [address] Julisa Lowe EGFR-AF JORDANIAN >60 Normal >=60 [facility] Comment on above: Performed By: #### A 1C #### [facility] [address] [address] [address] Julisa Lowe EGFR-NON AF JORDANIAN >60 Normal >=60 [facility] Comment on above: Performed By: #### A 1C #### [facility] [address] [place] [address] Dr. Julisa Lowe Globulin (S) [Mass/Vol] 2.7 g/dL Normal [facility] Comment on above: Performed By: #### A 1C #### [facility] [address] [address] [address] Julisa Lowe Glucose [Mass/Vol] 134 mg/dL Critically high 74-106 [facility] Comment on above: Performed By: #### A 1C #### [facility] [address] [place] [address] Dr. Julisa Lowe Potassium [Moles/Vol] 4.3 mmol/L Normal 3.4-5.0 [facility] Comment on above: Performed By: #### A 1C #### [facility] [address] [place] [address] Dr. Julisa Lowe Protein [Mass/Vol] 6.1 g/dL Normal 6.1-8.2 [facility] Comment on above: Performed By: #### A 1C #### [facility] [address] [place] [address] Dr. Julisa Lowe Sodium [Moles/Vol] 142 mmol/L Normal 137-145 [facility] Comment on above: Performed By: #### A 1C #### [facility] [address] [place] [address] Dr. Julisa Lowe Urea nitrogen [Mass/Vol] 23.0 mg/dL Critically high 7.0-17.0 [facility] Comment on above: Performed By: #### A 1C #### [facility] [address] [place] [address] Dr. Julisa Lowe Urea nitrogen/Creatinine [Mass ratio] 37.1 mg/mg Normal [facility] Comment on above: Performed By: #### A 1C #### [facility] [address] [id number] Julisa Lowe Covid-19 PCR ([facility])on 07-16 SARS-CoV-2 (COVID-19) RNA CHALINO+probe Ql (Unsp spec) Not detected Normal NOT DETECTED [facility] Comment on above: Result Comment: This test is not yet approved or cleared by the [place] FDA. When there are no FDA-approved or cleared tests available, and other criteria are met, FDA can make tests available under an emergency access mechanism called an Emergency Use Authorization (EUA). The EUA for this test is supported by the Accounting Methods Analyst of Health and Human Service's (HHS's) [...] SARS-CoV-2. Performed By: #### C VDTB #### [facility] [address] [place], [place] [id number] Dr. Julisa Lowe Vital Signs Date Time Vital Sign Value Performing Clinician Facility 05-09-2024 09:03-0400 Diastolic blood pressure 72 mm[Hg] [facility] 05-09-2024 09:03-0400 Heart rate 90 /min [facility] 05-09-2024 09:03-0400 Systolic blood pressure 109 mm[Hg] Shante [facility] 02-29-2024 10:35-0400 Blood Pressure Location Shante Orzech [facility] 02-29-2024 10:35-0400 Diastolic blood pressure 78 mm[Hg] Shante Orzech [facility] 02-29-2024 10:35-0400 Heart rate 68 /min Shante Orzech [facility] 02-29-2024 10:35-0400 Respiratory rate 16 /min Shante Orzech [facility] 02-29-2024 10:35-0400 Systolic blood pressure 132 mm[Hg] Shatne Orzech [facility] 05-12-2022 15:00-0400 Diastolic blood pressure 49 mm[Hg] Chair Colony Work Phone: [facility] 05-12-2022 15:00-0400 Heart rate 98 /min Chair Colony Work Phone: [facility] 05-12-2022 15:00-0400 SaO2% (BldA) [Mass fraction] 95 % Chair Colony Work Phone: [facility] 05-12-2022 15:00-0400 Systolic blood pressure 137 mm[Hg] Chair Colony Work Phone: [facility] 05-12-2022 13:30-0400 Body temperature 98.6 [degF] Chair Hilda Work Phone: [facility] 05-12-2022 10:15-0400 Diastolic blood pressure 87 mm[Hg] MD Hood Patel Work Phone: [facility] 05-12-2022 10:15-0400 Heart rate 82 /min MD Hood Patel Work Phone: [facility] 05-12-2022 10:15-0400 Respiratory rate 16 /min MD Hood Patel Work Phone: [facility] 05-12-2022 10:15-0400 SaO2% (BldA) [Mass fraction] 100 % MD Hood Patel Work Phone: [facility] 05-12-2022 10:15-0400 Systolic blood pressure 149 mm[Hg] MD Hood Patel Work Phone: [facility] 05-12-2022 07:54-0400 Body height 154.94 cm MD Hood Patel Work Phone: [facility] 05-12-2022 07:54-0400 Body weight 53.52 kg MD Hood Patel Work Phone: [facility] 05-06-2022 14:29-0400 Body temperature 99 [degF] Chair Colony Work Phone: [facility] 05-06-2022 14:29-0400 Diastolic blood pressure 51 mm[Hg] Chair Colony Work Phone: [facility] 05-06-2022 14:29-0400 Heart rate 93 /min Chair Colony Work Phone: [facility] 05-06-2022 14:29-0400 Respiratory rate 16 /min Chair Colony Work Phone: [facility] 05-06-2022 14:29-0400 SaO2% (BldA) [Mass fraction] 98 % Chair Hilda Work Phone: [facility] 05-06-2022 14:29-0400 Systolic blood pressure 129 mm[Hg] Chair Hilda Work Phone: [facility] 04-28-2022 10:47-0400 Body temperature 98.91 [degF] Chair Colony Work Phone: [facility] 04-28-2022 10:47-0400 Diastolic blood pressure 64 mm[Hg] Chair Colony Work Phone: [facility] 04-28-2022 10:47-0400 Heart rate 88 /min Chair Colony Work Phone: [facility] 04-28-2022 10:47-0400 Respiratory rate 18 /min Chair Hilda Work Phone: [facility] 04-28-2022 10:47-0400 SaO2% (BldA) [Mass fraction] 98 % Chair Colony Work Phone: [facility] 04-28-2022 10:47-0400 Systolic blood pressure 122 mm[Hg] Chair Hilda Work Phone: [facility] 04-22-2022 14:02-0400 Body temperature 99 [degF] Chair Colony Work Phone: [facility] 04-22-2022 14:02-0400 Diastolic blood pressure 56 mm[Hg] Chair Colony Work Phone: [facility] 04-22-2022 14:02-0400 Heart rate 95 /min Chair Colony Work Phone: [facility] 04-22-2022 14:02-0400 Respiratory rate 18 /min Chair Colony Work Phone: [facility] 04-22-2022 14:02-0400 SaO2% (BldA) [Mass fraction] 96 % Chair Hilda Work Phone: [facility] 04-22-2022 14:02-0400 Systolic blood pressure 123 mm[Hg] Chair Hilda Work Phone: [facility] 10-14-2021 14:15-0500 Body height 154.94 cm Lawanda Olexa Other [facility] Other 10-14-2021 14:15-0500 Body mass index (BMI) [Ratio] 22.26 kg/m2 Lawanda Medinaxa Other [facility] Other 10-14-2021 14:15-0500 Body weight 53.43 kg Lawanda Medin[facility]a Other [facility] Other Encounters Encounter Date Encounter Type Care Provider Facility Start: 05-09-2024 End: 05-09-2024 Lab Drop off Shante X Orzech [facility] Start: 05-09-2024 End: 05-09-2024 ambulatory Shante X Orzech Facility:[facility] Start: 05-09-2024 End: 05-09-2024 Patient encounter procedure [facility] Start: 05-08-2024 End: 05-09-2024 ambulatory [facility] Start: 05-03-2024 End: 05-03-2024 ambulatory TJ CURRY Not Available Start: 03-14-2024 End: 03-14-2024 ambulatory [facility] Start: 02-29-2024 End: 02-29-2024 ambulatory Shante X Orzech Facility:[facility] Start: 02-29-2024 End: 02-29-2024 Lab Drop off Shante X Orzech [facility] Start: 02-29-2024 End: 02-29-2024 ambulatory Shante X Orzech Facility:[facility] Start: 02-29-2024 End: 02-29-2024 Patient encounter procedure Shante X Orzech [facility] Start: 01-04-2024 End: 01-04-2024 ambulatory [...] encounter procedure MD Hood Patel Work Phone: [facility]-Pre[facility] Start: 05-06-2022 End: 05-06-2022 ambulatory Chair 14 Hilda Work Phone: Hematology/Oncology Comment on above: Iron deficiency anem ia due to chronic blood loss (Primary Dx) Start: 04-28-2022 End: 04-28-2022 ambulatory Chair 14 Colony Work Phone: Hematology/Oncology Comment on above: Iron deficiency anem ia due to chronic blood loss (Primary Dx) Start: 04-22-2022 End: 04-22-2022 ambulatory Chair 13 Colony Work Phone: Hematology/Oncology Comment on above: Iron deficiency anem ia due to chronic blood loss (Primary Dx) Start: 04-15-2022 End: 04-15-2022 ambulatory Hood Patel Other [facility] Other Start: 04-15-2022 Telephone encounter Hood Obrien ck [facility] Gastroenterology Start: 04-14-2022 Telephone encounter Christy jefferson RN Work Phone: Hematology/Oncology Comment on above: Critical Results (Gl ucose) Start: 04-14-2022 End: 04-14-2022 ambulatory Chair 15 Hilda Work Phone: Hematology/Oncology Comment on above: Iron deficiency anem ia due to chronic blood loss (Primary Dx); Controlled type 2 diabetes mellitus without complication, unspecified whether terminal carman insulin use (HCC) Start: 04-08-2022 End: 04-09-2022 ambulatory WATERS H FAWWAD Facility:[facility] Start: 04-06-2022 Telephone encounter Christi lópez MD Work Phone: [facility] Comment on above: Appointment Confirma tion Start: [...] 10-14-2021 End: 10-14-2021 ambulatory Lawanda Alvarez Other [facility] Other Start: 10-14-2021 Office outpatient ne w 30 minutes Lawanda Alvarez [facility] Start: 09-10-2021 End: 09-11-2021 ambulatory WATERS H FAWWAD Facility:[facility] Start: 08-16-2021 Encounter for preprocedural laboratory examination DR LJ BRENNAN [facility] Start: 08-13-2021 End: 08-13-[address] LJ [...] Author Start: 04-14-2025 DIABETES SCREEN DIABETES SCREEN [facility] Start: 05-14-2022 Influenza vaccination INFLUENZA (#1) [facility] Start: 05-12-2022 [facility] Work Phone: Start: 05-12-2022 Esophagogastroduodenoscopy DH EGD (Not Applicable) [facility] Start: 05-12-2022 End: 05-12-2022 Admission to same day surgery center Iron deficiency anemia [facility] Start: 09-13-2021 ADVANCE DIRECTIVE DISCUSSION ADVANCE DIRECTIVE DISCUSSION [facility] Start: 11-14-2015 BONE DENSITY BONE DENSITY [facility] Start: 11-14-1995 COLOGUARD (FIT-DNA) COLOGUARD (FIT-DNA) [facility] Start: 11-14-1995 Colonoscopy COLONOSCOPY [facility] Start: 11-14-1995 COLORECTAL CANCER SCREENING COLORECTAL CANCER SCREENING [facility] Start: 11-14-[address] COLONOGRAPHY [facility] Start: 11-14-1995 FECAL OCCULT BLOOD FECAL OCCULT BLOOD [facility] Start: 11-14-1995 LIPID SCREEN LIPID SCREEN [facility] Start: 11-14-1995 SIGMOIDOSCOPY SIGMOIDOSCOPY [facility] Start: 1990 Mammography MAMMOGRAM [facility] Start: 1969 SHINGRIX VACCINE (1 of 2) SHINGRIX VACCINE (1 of 2) [facility] Start: 1969 Urine microalbumin profile DTAP,TDAP,TD (1 - Tdap) [facility] Start: 1968 HEPATITIS C SCREENING HEPATITIS C SCREENING [facility] Start: 1962 Adult depression screening assessment DEPRESSION SCREENING [facility] Start: 1956 PNEUMOCOCCAL: 65+ (1 - PCV) PNEUMOCOCCAL: 65+ (1 - PCV) [facility] Start: 11-14-1955 COVID-19 VACCINE (#1) COVID-19 VACCINE (#1) [facility] Start: 05-16-1951 COVID-19 VACCINE (#1) COVID-19 VACCINE (#1) [facility] Glucose [Mass/volume ] in Serum or Plasma GLUCOSE, BLOOD (POC) Lab Routine Iron deficiency anemia due to chronic blood loss Controlled type 2 diabetes mellitus without complication, unspecified whether intermediate insulin use (HCC) Ordered: 04/14/2022 [facility] Work Phone: Comment on above: Ordered: 04/14/2022 Patient Education Hiatal Hernia (DC) [facility] Work Phone: [facility] Immunizations Immunization Date Immunization Notes Care Provider Jose watts 11-11-2021 influenza virus vaccine, unspecified formulation [facility] 05-19-2021 influenza, unspecifi ed formulation [facility] 01-30-2021 SARS-CoV-2 (COVID-19 ) mRNA [id number] vax [facility] Comment on above: Result Comment: 2023: [id number] 01-02-2021 SARS-CoV-2 (COVID-19 ) mRNA BNT-162b2 vax Shante Orzech [facility] 05-14-2020 influenza virus vaccine, unspecified formulation Shante Orzech [facility] 07-26-2019 pneumococcal conjuga te vaccine, 13 valent Shante Orzech [facility] 06-28-2019 influenza virus vaccine, unspecified formulation Shante Orzech [facility] 08-22-2018 influenza virus vaccine, unspecified formulation Shante Orzech [facility] 06-18-2016 influenza, unspecifi ed formulation Shante Orzech [facility] 06-20-2015 influenza virus vaccine, unspecified formulation Shante Orzech [facility] Payers Date Payer Category Payer Medicaid MEDICAID [facility] MEDICAID [id number] 2022-Present [phone] [address] [place] [address] Medicaid [id number] 2022 Medicaid MEDICAID [facility] MEDICAID [id number] 2022-Present [phone] [address] [place] [address] Medicaid [id number] 2021 Medicare [facility] MEDICARE [facility] DUAL COMPLETE HMO SNP [id number] 2021-Present [phone] [address] [place] [address] Medicare [id number] 2021 Medicare [facility] MEDICARE [facility] DUAL COMPLETE HMO SNP [id number] 2021-Present [phone] [address] [place] [address] Medicare [id number] 1959 Medicaid [id number] 1959 Medicare [id number] [id number] 1959 Medicare [id number] 2.16.840.1.259071.19 1959 Private Health Insurance [id number] 1950 Unknown [id number] 2.16.840.1.196664.3.579.2.5 1950 Unknown [id number] 2.16.840.1.325366.3.579.2.5 1950 Unknown [id number] 2.16.840.1.482698.3.579.2.5 1950 Unknown [id number] 2.16.840.1.931478.3.579.2.5 1950 Unknown [id number] 2.16.840.1.005230.3.579.2.5 1950 Unknown [id number] 2.16.840.1.735991.3.579.2.5 93 1950 Unknown [id number] 2.16.840.1.902623.3.579.2.5 1950 Unknown [id number] 2.16.840.1.224767.3.579.2.5 1950 Unknown [id number] 2.16.840.1.520437.3.579.2.5 93 1950 Unknown [id number] 2.16.840.1.870466.3.579.2.5 93 1950 Unknown [id number] 2.16.840.1.037027.3.579.2.5 93 1950 Unknown [id number] 2.16.840.1.328638.3.579.2.5 93 1950 Unknown [id number] 2.16.840.1.781882.3.579.2.5 93 1950 Unknown [id number] 2.16.840.1.208625.3.579.2.1 259 1950 Unknown [id number] 2.16.840.1.048497.3.579.2.1 259 1950 Unknown [id number] 2.16.840.1.109622.3.579.2.1 259 1950 Unknown [id number] 2.16.840.1.039111.3.579.2.7 27 1950 Unknown [id number] 2.16.840.1.236671.3.579.2.7 27 1950 Unknown [id number] 2.16.840.1.243190.3.579.2.7 27 1950 Unknown [id number] 2.16.840.1.824806.3.579.2.7 27 Medicare Medicare [id number] Private Health Insurance [employer] [id number] Self-pay Self Pay [id number] Social History Date Type Detail Facility Sex Assigned At [facility] Start: 03-31-2016 End: 05-09-2024 Tobacco smoking status NHIS Never smoked tobacco [facility] Start: 07-19-2016 Tobacco use and exposure Smokeless tobacco non-user [facility] Start: 04-14-2022 End: 04-28-2022 Alcohol intake Current non-drinker of alcohol (finding) [facility] Start: 1950 Sex Assigned At Not on file [facility] Start: 04-04-2022 End: 05-12-2022 Exposure to SARS-CoV-2 (event) Not sure [facility] Start: 1950 Sex Assigned At Female F [facility] Tobacco smoking status Never [facility] Goals Date Patient Goal Desired Activity /State Functional Status Date Assessment Result Facility 05-09-2024 Functional Status N/A [facility] 02-29-2024 Functional Status N/A [facility] Clinical Notes 10-14-2021 to 05-09-2024 Telephone Encounter - Makenna Kendall RN - 04/21/2022 1:47 PM EDTTelephone Encounter - Makenna Kendall RN - 04/21/2022 1:31 PM EDTTelephone Encounter - Christi Fink MD - 04/14/2022 1:39 PM EDT Note Date & Type Note Facility 05-09-2024 Evaluation + Plan note Diagnostic Tests PendingUrine Culture 05/09/24 [facility] 05-09-2024 Hospital Discharg e instructions Patient Education [...] nerve stimulation). ?For women, using a medical office manager to prevent urine leaks. This is a [...] right after experiencing incontinence. General instructions Take vvkd-sft-ylfobtx and prescription medicines only as told by [...] important. Where to find more information National [place] of Diabetes and Digestive and Kidney Diseases: www.niddk.nih.gov [place]: www.urologyhealth.org Contact a health care [...] provider. Document Revised: 04/04/2021 Document Reviewed: 04/04/2021 shoutr Patient Education 2022 [employer]. 05/09/2024 10:01:15 Overactive Bladder, Adult Overactive Bladder, [...] your health care provider. General instructions Take kkgk-mbe-swefvor and prescription medicines only as told by [...] Document Reviewed: 05/19/2021 Elsevier Patient Education 2022 [employer]. Follow Up Care 02/29/2024 11:11:11 With:AMALIA Shukla APRN, NAHEED Tate, URL Address: When: Unknown Comments:6 months [facility] 05-09-2024 Note Patient Education Obstetrics and Gynecology [...] health care provider. General instructions ? Take hyym-dns-gwdinlh and prescription medicines only as told by [...] your health care (more content not included)... [facility] 03-14-2024 Note Cardiology Follow Up Progress Note [...] as needed Edd Wade MD Interventional Cardiology [facility] 03-05-2024 Note Chief Complaint Referral *Incontinence HPI [...] with voice recognition artificial intelligence software, specifically [employer], [employer] and or [employer]. Substitutions may have occurred due to the [...] diabetic autonomic (poly)neuropathy (more content not included)... [facility] Comment on above: Result Comment: Elec tronically Signed By: AMALIA Shukla APRN, [place] [facility]\.br\Date and Time Signed: 03/05/24 22:19 EDT 04-21-2022 Miscellaneous Notes Pt has follow up appointment with Dr Rainey tomorrow. Makenna Kendall RN Spoke with Pankaj at Dr Rainey's office. Recent records and labs faxed to [phone] per office request. Makenna Kendall RN Message left with Dr Rainey's medical microbiologist again today regarding this pt and the urgency of this being addressed. Will try again later today if I don't hear back from their office. Makenna Kendall RN Call placed to [facility]. Office is closed. Makenna Kendall RN PCP updated in chart Glucose rechecked in the office and it was 373 by fingerstick. Call placed to Dr Joseph who is listed at pt's PCP. Jono states he has not worked in the office in 4 years now. Jono states pt is now seen by Dr Rainey at [facility]. Call placed to their office ([phone]) and message left requesting a call back. PSS: can you please update pt's PCP info. Thanks, Makenna Kendall RN Thanks. Can we have her PCP address this, Thanks Key Monteiro from [facility] Lab Client Services calls to report critical results: Glucose - 506 Pt identifiers and results read back for verification. Christy Byrd RN documented in this encounter [facility] 04-16-2022 Miscellaneous Notes Called Angélica Romano [...] were not included. Please send records to [facility] office thanks! MD Tj Thompson; Makenna Lebron Please refer her to GI for an upper endoscopy. Thanks documented in this encounter [facility] 04-15-2022 Evaluation note Encounter Date Diagnosis Assessment Notes Apr, Anemia due to blood loss, chronic (ICD-10 - D50.0) [facility] Other 08-02-2022 NoteHNO ID: [id number] Author: Brenda Tavera RN Service: ? Author [...] and reviewed with patient per treatment nurse, Nkiki Gilbert RN. She was given a copy. No other questions or concerns noted. She has verbalized understanding [facility] NoteHNO ID: [id number] Author: Christi Fink MD Service: ? Author Type: Physician Type: Progress Notes Filed: 04/14/2022 1:13 PM Note Text: PATIENT NAME: Robina Steele [facility] NO.: [id number] ATTENDING PHYSICIAN: Christi Fink MD DATE OF [...] understanding Brenda Tavera RN [facility] NoteHNO ID: [id number] Author: Christi Fink MD Service: ? Author Type: Physician Type: Progress Notes Filed: 04/04/2022 11:07 AM Note Text: PATIENT NAME: Robina Ron CLINIC NO.: [id number] ATTENDING PHYSICIAN: Christi Fink MD DATE OF SERVICE: April 03, [address] Shaikh Sparks thank you for referring Mrs. oRbina Ron for an opinion regarding iron deficiency. [...] not taking: Reported on 03/31/2022 ) - Alnvt-2-RQJ-EPA-Fish Oil 1,000 mg (120 mg-180 mg) cap [...] sciatica - COPD (chronic obstructive pulmonary disease) ([facility]) - CVA (cerebral (more content not included)...Adena [...] interpreted and reported in a separate dictation. [facility] Signed and Approved by: DR ALFRED SUGGS 03/03/2022 10:18:00[facility]02-01-2022 Evaluation note* Encounter Date Diagnosis Assessment Notes [...] We discussed that there will be a terminal carman cosmetic deformity at the AC joint, however, relatively normal function can return. If terminal carman pain and dysfunction occur, surgical treatment can be considered. Patient given order for physical therapy. [facility] Other Evaluation + Plan note Future Appointments Appointment Date:04/11/2024 09:00:00 AM Scheduled Provider:AMALIA Shukla APRN, [place] [facility] Location:[facility] Appointment Type:URO Office Visit [facility] evaluation + Plan note Future Appointments Appointment Date:04/11/2024 09:00:00 AM Scheduled Provider:AMALIA Shukla APRN, [place] [facility] Location:[facility] Appointment Type:URO Office Visit Diagnostic Tests Pending * Urine Culture 02/29/24 [facility] note* Diagnosis Iron deficiency anemia due to chronic blood loss- Primary Iron deficiency anemia secondary to blood loss (chronic) Controlled type 2 diabetes mellitus without complication, unspecified whether terminal carman insulin use (HCC) documented in this encounter [facility] note* Diagnosis Iron deficiency anemia due to chronic blood loss- Primary Iron deficiency anemia secondary to blood loss (chronic) documented in this encounter [facility] note* Diagnosis Iron deficiency anemia due to chronic blood loss- Primary Iron deficiency anemia secondary to blood loss (chronic) [facility] Diagnosis Iron deficiency anemia due to chronic blood loss- Primary Iron deficiency anemia secondary to blood loss (chronic) [facility] Diagnosis Iron deficiency anemia due to chronic blood loss- Primary Iron deficiency anemia secondary to blood loss (chronic) [facility] Diagnosis Onset Date Resolution Status Iron deficiency anemia [facility] Work Phone: History general Narrative - Reported* Type Description Date Medical History diabetes type 2 Medical History stroke Medical History mild form of leukemia Surgical History x2 Surgical History cateract removal bilateral Surgical History kidney and bladder surgery Surgical History choliectomy Hospitalization History listed above [facility] Other Hospital course Narrative No data available for this section [facility] Hospital Discharge instructions No data available for this section [facility] progress note No data available for this section [facility] Medications Administered Section Inactive Administered Medications [...] INJECTION PER 1 MG Christi Fink MD [address] [place] [address] Jasiel Treat [address] [place] [address] Referral ID Status Reason Start Date Expiration Date V isits Requested Visits Authorized [id number] Authorized 04/03/2022 09/12/2022 99 99 Reason Comments Appointment Confirmation Reason Comments Critical Results Glucose Source Comments (unrecognize d section and content) In the event this informatio n is protected by the Federal Confidentiality of Alcohol and Drug Abuse Patient Records regulations: The Federal rules restrict any use of the information to criminally investigate or prosecute any alcohol or drug abuse patient.[facility] the event this information is protected by the Federal Confidentiality of Alcohol and Drug Abuse Patient Records regulations: The Federal rules restrict any use of the information to criminally investigate or prosecute any alcohol or drug abuse patient.[facility] the event this information is protected by the Federal Confidentiality of Alcohol and Drug Abuse Patient Records regulations: The Federal rules restrict any use of the information to criminally investigate or prosecute any alcohol or drug abuse patient.[facility] the event this information is protected by the Federal Confidentiality of Alcohol and Drug Abuse Patient Records regulations: The Federal rules restrict any use of the information to criminally investigate or prosecute any alcohol or drug abuse patient.[facility] the event this information is protected by the Federal Confidentiality of Alcohol and Drug Abuse Patient Records regulations: The Federal rules restrict any use of the information to criminally investigate or prosecute any alcohol or drug abuse patient.[facility] the event this information is protected by the Federal Confidentiality of Alcohol and Drug Abuse Patient Records regulations: The Federal rules restrict any use of the information to criminally investigate or prosecute any alcohol or drug abuse patient.[facility] the event this information is protected by the Federal Confidentiality of Alcohol and Drug Abuse Patient Records regulations: The Federal rules restrict any use of the information to criminally investigate or prosecute any alcohol or drug abuse patient.[facility] Care Teams (unrecognized sec tion and content) Residential Case Manager Relationship Specialty Start Date End Date Shaikh Sparks MD [address] [place] [address] PCP - General Primary Care 04/14/22 Residential Case Manager Relationship Specialty Start Date End Date Demetrio Joseph PCP - General Family Practice 03/09/16 04/13/22 Shaikh Sparks MD [address] [place] [address] PCP - General Primary Care 04/14/22 Residential Case Manager Relationship Specialty Start Date End Date Shaikh Sparks MD [address] [place] [address] PCP - General Primary Care 04/14/22 Residential Case Manager Relationship Specialty Start Date End Date Shaikh Sparks MD [address] [place] [address] PCP - General Primary Care 04/14/22 Residential Case Manager Relationship Specialty Start Date End Date Shaikh Sparks MD [address] [place] [address] PCP - General Primary Care 04/14/22 Residential Case Manager Relationship Specialty Start Date End Date Shaikh Sparks MD [address] [place] [address] PCP - General Primary Care 04/14/22 Residential Case Manager Relationship Specialty Start Date End Date Shaikh Sparks MD [address] [place] [address] PCP - General Primary Care 04/14/22 Team Status: Inactive Member Role Status Dates Hood Patel MD Attending Provider Active Shaikh Clare MD Primary Care Provider Active Team Status: Active Member Role Status Dates Shaikh Clare MD Primary Care Provider Active INFORMATION SOURCE (unrecogn ized section and content) DATE CREATED AUTHOR 05/14/2022 [facility] DATE CREATED AUTHOR AUTHOR'S ORGANIZ ATION 05/16/2022 [facility] DATE CREATED AUTHOR AUTHOR'S ORGANIZ ATION 07/07/2022 [facility] DATE CREATED AUTHOR AUTHOR'S ORGANIZ ATION 03/03/2024 [place] [facility] DATE CREATED AUTHOR AUTHOR'S ORGANIZ ATION 05/05/2024 [facility] dical [facility] DATE CREATED AUTHOR AUTHOR'S ORGANIZ ATION 05/10/2024 [facility] DATE CREATED AUTHOR AUTHOR'S ORGANIZ ATION 05/10/2024 [place] [facility] DATE CREATED AUTHOR AUTHOR'S ORGANIZ ATION 05/11/2024 [facility] DATE CREATED AUTHOR AUTHOR'S ORGANIZ ATION 05/13/2024 [facility] FOR RECORDS PERTAINING TO PATIENTS [...] BE BASED ON THE PRIMARY CLINICAL RECORDS. [employer] [facility]. provides no warranty or guarantee of the accuracy or completeness of information in this document.
--- NOTE | 2024-06-03 14:36 | CT_ITS ---
The [address] [address] Patient Name: CHEY RON MRN: [id number] date: 1950 Sex: F Assigned Patient Location: ER Current Patient Location: Accession/Order Number: [id number] Exam Date: 06/03/2024 15:18 Report Date: 06/03/2024 16:14 At the request of: CAMERON GARCIA Procedure: CT abdomen pelvis w con EXAM: CT abdomen pelvis w con TECHNIQUE: Axial CT images were obtained of the abdomen and pelvis with intravenous contrast. Sagittal and coronal reformatted images were also obtained. Dose reduction techniques were achieved by using automated exposure control and/or adjustment of mA and/or kV according to patient size and/or use of iterative reconstruction technique. HISTORY: Left lower quadrant pain, rule out diverticulitis COMPARISON: 01/02/2019 FINDINGS: Lower chest: Small pericardial effusion. Mild bilateral dependent atelectasis. Liver: The liver is homogeneous with normal contours and normal size. Gallbladder: Status post cholecystectomy. No significant biliary dilatation. Pancreas: The pancreas is homogeneous without evidence for mass lesion or inflammation. Spleen: 12 mm low-attenuation laterally within the spleen, slightly larger than on prior CT scan most likely representing a benign hemangioma. Adrenal glands: The adrenal glands are unremarkable Kidneys and bladder: The kidneys are unremarkable with no evidence for mass lesion, hydronephrosis or inflammation. The ureters demonstrate normal caliber. There are bladder is collapsed. There is wall thickening of the urinary bladder with infiltration of surrounding fat. GI Tract: Wall thickening of the pylorus of the stomach. Visualized small bowel is unremarkable without evidence for obstruction or active inflammation. The appendix is unremarkable.Liquid stool throughout much of the colon. Mild wall thickening of the sigmoid colon with infiltration of surrounding fat. Reproductive: The uterus has been removed. Lymph nodes: No retroperitoneal or abdominal lymphadenopathy. Vascular: The aorta is not dilated. Mesenteric, renal and iliac arteries are patent. Peritoneum: No free intraperitoneal air or fluid. No acute inflammation. Abdominal wall: Posterior pedicle screw and mickey fixation of the lower lumbar spine. CT/CT abdomen pelvis w con IMPRESSION: Mild wall thickening of the descending colon and sigmoid colon with surrounding inflammation suggesting inflammatory or infectious colitis. Liquid stool throughout much of the colon consistent with diarrheal illness. Wall thickening of the pylorus of the stomach suspicious for peptic ulcer disease. Wall thickening of the urinary bladder with surrounding inflammation suspicious for cystitis. Electronically authenticated by: ANA GUARDADO Date: 06/03/2024 16:14
--- NOTE | 2024-06-03 14:37 | ED.ABDPAIN1 ---
HPI - Abdominal Pain General Chief Complaint: Abdominal Pain Stated Complaint: VOMITING Time Seen by Provider: 06/03/24 14:30 Source: patient and family Mode of arrival: Wheelchair History of Present Illness HPI narrative: 73-year-old female presents for left lower quadrant abdominal pain which started during the night. She is also been vomiting and states the pain is severe. No blood in her stool and no hematemesis. She has not had a fever or injury. She does not believe that she is ever had diverticulitis. She has had a hysterectomy and cholecystectomy. Related Data Home Medications ?Medication ?Instructions ?Recorded ?Confirmed albuterol sulfate 90 mcg/actuation 2 inh inhalation Q6H PRN shortness 06/03/24 06/03/24 aerosol inhaler of breath or wheezing apixaban 5 mg tablet (Eliquis) 5 mg PO Q12H 06/03/24 06/03/24 atorvastatin 20 mg tablet 20 mg PO .QD 06/03/24 06/03/24 dapagliflozin propanediol 10 mg 10 mg PO .QD 06/03/24 06/03/24 tablet (Farxiga) diltiazem HCl 240 mg 240 mg PO Q24H 06/03/24 06/03/24 capsule,extended release 24 hr dulaglutide 1.5 mg/0.5 mL 1.5 mg subcut .WEEKLY 06/03/24 06/03/24 subcutaneous pen injector (Trulicity) glipizide 5 mg tablet 5 mg PO BID 06/03/24 06/03/24 insulin NPH-regular 70-30 U-100 15 unit subcut BID 06/03/24 06/03/24 insulin 100 unit/mL subcutaneous pen (Humulin 70/30 U-100 Flakita) lisinopril 5 mg tablet 5 mg PO .QD 06/03/24 06/03/24 metoprolol tartrate 50 mg tablet 50 mg PO Q12H 06/03/24 06/03/24 pantoprazole 40 mg tablet,delayed 40 mg PO .Q24 06/03/24 06/03/24 release trazodone 50 mg tablet 50 mg PO .QHS 06/03/24 06/03/24 trospium 20 mg tablet 20 mg PO Q12H 06/03/24 06/03/24 Allergies Allergy/AdvReac Type Severity Reaction Status Date / Time acetaminophen [From Percocet] Allergy Agitated Verified 06/03/24 14:26 oxycodone [From Percocet] Allergy Agitated Verified 06/03/24 14:26 Review of Systems ROS Narrative A ten point review of systems is negative except as noted above. Exam Narrative Exam Narrative: Nurses note and vital signs reviewed and patient is not hypoxic. General: The patient appears uncomfortable. Skin: Warm, dry, no pallor noted. There is no rash noted. Head: Normocephalic, atraumatic Eye: Normal conjunctiva, no drainage Ears, Nose, Mouth, and Throat: oral mucosa is moist. Nares patent. Cardiovascular: Regular Rate and Rhythm Respiratory: Patient is in no distress, no accessory muscle use, lungs are clear to auscultation, no wheezing, rales or rhonchi Back: non-tender GI: Soft and tender, particularly in the left lower quadrant. No palpable mass. Musculoskeletal: The patient has no evidence of calf tenderness, no pitting edema, symmetrical pulses noted bilaterally Neurological: A&O, normal speech Psychiatric: Cooperative Constitutional Vital Signs, click to edit/add: Last Vital Signs Temp 97.6 F 06/03/24 14:26 Pulse 109 H 06/03/24 15:55 Resp 15 06/03/24 15:55 BP 99/61 06/03/24 15:55 Pulse Ox 93 L 06/03/24 15:55 O2 Del Method Room Air 06/03/24 14:26 Course Vital Signs Vital signs: Vital Signs Temperature 97.6 F 06/03/24 14:26 Pulse Rate 93 H 06/03/24 14:26 Respiratory Rate 22 H 06/03/24 14:26 Blood Pressure 108/47 L 06/03/24 14:26 Pulse Oximetry 95 06/03/24 14:26 Oxygen Delivery Method Room Air 06/03/24 14:26 Temperature 97.6 F 06/03/24 14:26 Pulse Rate 109 H 06/03/24 15:55 Respiratory Rate 15 06/03/24 15:55 Blood Pressure 99/61 06/03/24 15:55 Pulse Oximetry 93 L 06/03/24 15:55 Oxygen Delivery Method Room Air 06/03/24 14:26 MDM - Abdominal Pain MDM Narrative Medical decision making narrative: Colitis is identified on the CAT scan with elevated WBC of 33,000. Lactic acid level is elevated and repeat is pending. Her blood pressure was in the 70s upon arrival and is now 99 systolic after IV fluids. I have spoken to Dr. Sparks and the patient is being admitted. Findings are discussed with the patient Differential Diagnosis Differential diagnosis: Likely abdominal pain, acute appendicitis, constipation, diverticulitis, gastroenteritis, pancreatitis, small bowel obstruction and other (Colitis, bowel perforation) Lab Data Attestation: I reviewed the patient's lab results. Labs: Lab Results 06/03/24 Range/Units 14:50 WBC 33.4 H* (4.0-11.0) 10^3/uL RBC 5.55 H (4.20-5.40) 10^6/uL Hgb 16.3 H (12.0-16.0) g/dL Hct 51.9 H (36.0-48.0) % MCV 93.5 (81.0-99.0) fL MCH 29.4 (26.7-34.0) pg MCHC 31.4 (29.9-35.2) g/dL RDW 14.3 (11.0-15.0) % Plt Count 257 (150-450) 10^3/uL MPV 8.2 L (9.5-13.5) fL Seg Neuts % (Manual) 71.0 (43.0-75.0) Band Neutrophils % 6.0 H (0-5) % Lymphocytes % (Manual) 16.0 L (20.5-60.0) % Monocytes % (Manual) 7.0 (1.7-12.0) % Eosinophils % (Manual) 0.0 L (0.9-7.0) % Basophils % (Manual) 0.0 L (0.2-2.0) % Neutrophils # (Manual) 23.71 H (1.4-6.5) 10^3/uL Band Neutrophils # 2.0 H (0.0-0.3) 10^3/uL Lymphocytes # (Manual) 5.34 H (1.20-3.80) 10^3/uL Monocytes # (Manual) 2.33 H (0.30-0.80) 10^3/uL Eosinophils # (Manual) 0.00 (0.00-0.70) 10^3/uL Basophils # (Manual) 0.00 (0.00-0.10) 10^3/uL Sodium 139 (136-145) mmol/L Potassium 3.9 (3.5-5.1) mmol/L Chloride 103 (98-107) mmol/L Carbon Dioxide 21.5 (21.0-32.0) mmol/L Anion Gap 18.4 BUN 26.0 H (7.0-18.0) mg/dL Creatinine 1.84 H (0.55-1.02) mg/dL Est GFR ( Amer) 33 L (>=60) Est GFR (Non-Af Amer) 27 L (>=60) BUN/Creatinine Ratio 14.1 Glucose 308 H (74-106) mg/dL Lactate 8.9 H* (0.4-2.0) mmol/L Calcium 9.5 (8.5-10.1) mg/dL Total Bilirubin 1.4 H (0.2-1.0) mg/dL Direct Bilirubin 0.5 H (0.0-0.2) mg/dL AST 88 H (15-37) U/L ALT 88 H (14-59) U/L Alkaline Phosphatase 203 H (46-116) U/L Total Protein 6.2 L (6.4-8.2) g/dL Albumin 3.2 L (3.4-5.0) g/dL Globulin 3.0 g/dL Albumin/Globulin Ratio 1.1 Amylase 333 H* (25-115) U/L Lipase 38.0 (16.0-77.0) U/L Imaging Data CT scan - abdomen: Radiologist's impression: ITS Impressions Abdomen/Pelvis CT 06/03/24 14:36 IMPRESSION: Mild wall thickening of the descending colon and sigmoid colon with surrounding inflammation suggesting inflammatory or infectious colitis. Liquid stool throughout much of the colon consistent with diarrheal illness. Wall thickening of the pylorus of the stomach suspicious for peptic ulcer disease. Wall thickening of the urinary bladder with surrounding inflammation suspicious for cystitis. Electronically authenticated by: ANA GUARDADO Date: 06/03/2024 16:14 ECG Data Attestation: I personally reviewed and interpreted this ECG as follows: (EKG on my interpretation shows sinus rhythm with rate of 90 and no acute change) Critical Care Time Critical Care Time Critical Care Time: Yes Total Critical Care Time: 35 Attestation: Due to the high probability of sudden and clinically significant deterioration in the patient's condition he/she required the highest level of my preparedness to intervene urgently I provided critical care time including documentation time, medication orders and management, reevaluation, vital sign assessment, ordering and reviewing of lab tests, ordering and reviewing of x-ray studies, and admission orders. Aggregate critical care time is 35 minutes including only time during which I was engaged in work directly related to his/her care and did not include time spent treating other patients simultaneously. Discharge Plan Discharge Chief Complaint: Abdominal Pain Clinical Impression: Colitis Patient Disposition: Admitted As Inpatient Time of Disposition Decision: 16:23 Condition: Good
[2024-06-03 15:01] LABS: Hematocrit 51.9 % (36.0-48.0); Hemoglobin 16.3 g/dL (12.0-16.0); Mean Corpuscular HGB Conc 31.4 g/dL (29.9-35.2); Mean Corpuscular Hemoglobin 29.4 pg (26.7-34.0); Mean Corpuscular Volume 93.5 fL (81.0-99.0); Mean Platelet Volume 8.2 fL (9.5-13.5); Platelet Count 257 10^3/uL (150-450); Red Blood Count 5.55 10^6/uL (4.20-5.40); Red Cell Distribution Width 14.3 % (11.0-15.0)
[2024-06-03 15:05] LABS: White Blood Count 33.4 10^3/uL (4.0-11.0)
[2024-06-03] MEDS: ONDANSETRON PF 4 MG/2 ML VIAL IV ×2 (15:08→16:27)
[2024-06-03] MEDS: 0.9 % SODIUM CHLORIDE 1,000 ML 200 ML IV (15:08)
[2024-06-03 15:18] LABS: Alanine Aminotransferase 88 U/L (14-59); Albumin Globulin Ratio 1.1; Albumin Level 3.2 g/dL (3.4-5.0); Alkaline Phosphatase 203 U/L (46-116); Anion Gap 18.4; Aspartate Amino Transferase 88 U/L (15-37); BUN Creatinine Ratio 14.1; Bilirubin Direct 0.5 mg/dL (0.0-0.2); Bilirubin Total 1.4 mg/dL (0.2-1.0); Calcium 9.5 mg/dL (8.5-10.1); Carbon Dioxide 21.5 mmol/L (21.0-32.0); Chloride 103 mmol/L (98-107); Estimated GFR (African America 33 (>=60); Estimated GFR (Non-African Ame 27 (>=60); Glucose 308 mg/dL (74-106); Potassium 3.9 mmol/L (3.5-5.1); Sodium 139 mmol/L (136-145); Total Protein 6.2 g/dL (6.4-8.2)
[2024-06-03 15:19] LABS: Amylase 333 U/L (25-115)
[2024-06-03 15:30] LABS: Lymphocytes Absolute Manual 5.34 10^3/uL (1.20-3.80); Monocytes Absolute Manual 2.33 10^3/uL (0.30-0.80); Segmented Neut Absolute Manual 23.71 10^3/uL (1.4-6.5)
[2024-06-03] MEDS: MORPHINE SULFATE 4 MG/ML VIAL IV (15:38)
[2024-06-03] MEDS: 0.9 % SODIUM CHLORIDE 1,000 ML 1000 ML IV ×2 (16:07→18:42)
[2024-06-03 16:11] LABS: Lactate/Lactic Acid 8.9 mmol/L (0.4-2.0)
[2024-06-03 16:48] LABS: Bilirubin Urine SMALL (NEGATIVE); Blood Urine NEGATIVE (NEGATIVE); Clarity Urine CLEAR (CLEAR); Color Urine DK. YELLOW (YELLOW); Glucose Urine UA 500 mg/dL (NEGATIVE); Ketones Urine NEGATIVE (NEGATIVE); Leukocyte Esterase Urine NEGATIVE (NEGATIVE); Nitrite Urine NEGATIVE (NEGATIVE); Protein Urine 30 mg/dL (NEG/TRACE); Specific Gravity Urine <=1.005 (1.005-1.025); pH Urine 5.5 (5.0-9.0)
[2024-06-03 17:03] LABS: Amorphous Sediment Urine FEW; Bacteria Urine TRACE #/HPF (NONE SEEN); Cast Seen? NONE SEEN #/LPF (NONE SEEN); Crystals Seen? Seen #/HPF (None Seen); Mucus Urine NONE SEEN (NONE SEEN); RBC Urine 0-2 #/HPF (0-2); Squamous Epithelial Cell Urine FEW #/LPF (NONE/RARE); Transitional Epi Cells Urine RARE #/LPF (NONE SEEN)
[2024-06-03] MEDS: CEFTRIAXONE 1,000 MG in 0.9 % SODIUM CHLORIDE 50 ML 100 MG IV (17:30)
[2024-06-03] MEDS: METRONIDAZOLE/SODIUM CHLORIDE 500 MG/100 ML PREMIX 100 MG IV (17:30)
--- NOTE | 2024-06-03 17:31 | ECG_ITS ---
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
--- OUTSIDE RECORDS SUMMARY | 2024-06-03 17:47 | XMS_ITS | CCD ---
Author Organization [facility] ion [facility] Care Team Providers Care Recycling Technician Name Role Phone Lawanda Alvarez Unavailable Shaikh Sparks MD Primary Care Provider Demetrio Joseph Primary Care Provider [phone] Hood Patel Unavailable [phone] Shaikh Sparks MD Primary Care Provider MD Hood Patel Attending Provider [phone] MD Amy Sparks Primary Care Provider FAWWAD, [...] Unavailable FAWWAD, WATERS H Attending Unavailable FAWWAD, WTAERS H Admitting Unavailable FAWWAD, WATERS Primary Care Physician [phone] SHAIKH SPARKS Attending Unavailable JOSEWWAD, WATERS Attending [...] Sleep terror disorder (disorder) [facility] Anticholinergics (1 source) tiotropium; Translations: [tiotropium] Drug Allergy Pharyngeal swelling (finding), Tongue swelling (finding) [facility] Opioid Agonists (1 source) oxyCODONE; Translations: [oxycodone] Drug Allergy Sleep terror disorder (disorder) [facility] (12 sources) Acetaminophen / oxyCODONE; Translations: [acetaminophen-ox ycodone] Drug Allergy 6 Mental Status Change, Anaphylaxis, Sleep terror disorder (disorder) [facility] (7 sources) tiotropium; Translations: [tiotropium] Drug Allergy anaphylaxis, Pharyngeal swelling (finding), Tongue swelling (finding) [facility] (7 sources) Budesonide / formoterol Drug Allergy 2 Other: See Comments [facility] (7 sources) tiotropium Drug Allergy 6 Unknown [facility] (7 sources) oxyCODONE; Translations: [Oxycodone] Drug Allergy 9 Sleep terror disorder (disorder) [facility] (3 sources) Acetaminophen / oxyCODONE; Translations: [Percocet] Drug Allergy 5 [facility] Repository (1 source) Acetaminophen / oxyCODONE; Translations: [OXYCODONE-ACETAM INOPHEN] Drug Allergy 5 [facility] Repository Medications Current Medications Medication Drug [...] 26, 2019 1:07pm take 1 capsule by [facility] once daily, then take 1 [...] 2018 10:17am take 1 capsule by mo [facility] every twenty-four hours Gabapentin 300 MG 1 [...] Comment on above: [facility] oxybutynin chloride 5 [...] day(s), # 180 tab(s), Refills(s) 3, Pharmacy: [facility]/pharmacy #[id number], 155, cm, 05/09/24 9:05:00 EDT, Height/Length Dosing, 66.5, kg, 05/09/24 9:05:00 EDT, Weight Dosing Start Date: 05/09/24 Stop Date: 05/04/25 Status: Ordered Start: 02-29-2024 take 1 tablet by ruy twice daily trospium 20 mg oral tablet 20 mg = 1 tab(s), Oral, BID, # 60 tab(s), Refills(s) 2, Pharmacy: [facility]/pharmacy #[id number], 155, cm, 02/29/24 10:38:00 EDT, Height/Length [...] on above: Take 1,000 mcg by mo [facility] once daily. Completed/Discontinued Medications Medication Drug Class(es) [...] Onset: 12-22-2021 Episodic Other aftercare (1 source) detention (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 insulin; Translations: [SHANK PAPERER CURRENT USE OF INSULIN] Onset: 01-28-2022 Episodic Other aftercare (1 source) Other oil heaterman (current) drug therapy; Translations: [OTH SHANK PAPERER CURRENT DRUG THERAPY] Onset: 12-24-2021 Episodic Other aftercare (1 source) oil heaterman (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 oral hypoglycemic drugs; Translations: [GROUP HOME USE ORAL HYPOGLYCEMIC DX] Onset: 12-24-2021 Episodic Other aftercare (1 source) oil heaterman (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 anticoagulants; Translations: [GROUP HOME CURRNT USE ANTICOAGULANTS] Onset: 12-24-2021 Episodic Other [...] 05/09/2024 18:41 EDT FREE TEXT SOURCE: Oreileen PROJECT PRODUCT MANAGER, MONOGRAM AND LETTER PASTER-C, Orzeyovani PROJECT PRODUCT MANAGER, MONOGRAM AND LETTER PASTER-C, Shante X Shante X FINAL REPORTS Final [...] Locations R1: This test was performed at: [facility], [address] [place] [address], [address] , , Normal [facility] Comment on above: Performed By: #### 2 [id number] #### [facility] [address] [place] [address] Ambulatory Visit Summaryon 0 05-09-2024 Ambulatory Visit [...] Duration: 90 Days Refills: 3 Pickup at [facility]/pharmacy #[id number] Unchanged atorvastatin (atorvastatin 20 mg Tab) 90 [...] physician if questions or concerns Pharmacy Information [facility]/pharmacy #[id number]: [address], [place] [id number] [phone] What How Much When Comments Stop Taking [...] insulin Unspecifie (more content not included)... Normal [facility] Reminderson 05-09-2024 Reminders Reminders From: Anushka Carroll To: EU - Administrative; Sent: 05/09/2024 10:23:22 EDT Show up: 08/13/2024 10:23:00 EST Subject: Ambulatory Reminder Due Date/Time: 10/23/2024 10:22:00 EST Reminder/Recall Patient needs scheduled with AO for a 6 month f/u, due back mid October 2024 Normal [facility] Urology Office/Clinic Noteon 05-09-2024 Urology [...] with voice recognition artificial intelligence software, specifically Buyapowa, Limonetik and or Cap That. Substitutions may have occurred due to the [...] BID, # 60 tab(s), Refills(s) 2, [id number], cm, 02/29/24 10:38:00 EDT, Height/Length Dosing, 66.5, kg, 02/29/24 10:38:00 EDT, Weight Dosing trospium, 20 mg = 1 tab(s), Oral, BID, X 90 day(s), # 180 tab(s), Refills(s) 3, [id number], 155, cm, 05/09/24 9:05:00 EDT, Height/Length Dosing, 66.5, kg, 05/09/24 9:05:00 EDT, Weight Dosing 99500 Measure Post Void residual urine and/or bladder capacity by US- non-imaging Urine Culture Urnls Dip Stick Auto w/o Microscopy POC 53645 2. Mixed incontinence (N39.46: Mixed incontinence) UUI >>> LEW See #1 Ordered: 84304 Measure Post Void residual urine and/or bladder capacity by US- non-imaging Urine Culture Urnls Dip Stick Auto w/o Microscopy POC 55727 3. Asymptomatic microscopic hematuria (R31.21: Asymptomatic microscopic [...] Improved to 2 times per night Ordered: 06117 Measure Post Void residual urine and/or bladder capacity by US- non-imaging Urine Culture Urnls Dip Stick Auto w/o Microscopy POC 57656 5. Unspecified urethral stricture, female (N35.92: Unspecified urethral stricture, female) s/p cystoscopy/UD 01/09/2019 by ELHAM [1] Ordered: 31120 Measure Post Void residual urine and/or bladder capacity by US- non-imaging Urine Culture Urnls Dip Stick Auto w/o Microscopy POC 76845 6. Glucosuria (R81: Glycosuria) 3+ on UA [...] CVA (cerebrovascular (more content not included)... Normal [facility] Comment on above: Result Comment: [...] apt for Oct. She verbalized understanding. Normal [facility] Office Visiton 03-14-2024 Follow-up visit [id number] Robina Ron 1950 F Date Provider Department Center 03/14/2024 [facility]8-EDD WADE JOHNATHON Zaraogza Family History Problem Relation Age of Onset Pulmonary embolism Father Family Status - Relation Status Age at Father Level of Service:[address]94 [place] OFFICE/OUTPATIENT ESTABLISHED MOD MDM 30 MIN [facility] Coding Summary.on 03-07-2024 Coding Summary. TSAFSvoj05DEj2wRg+PG h lYWQ+QB2YOVVdX52xnUYk pC2fV2CKJCrUHwfiDXRHO OsCHwIuayMeDW7zwQXvTE Ju IC8+IZ9gIJSrBmvqvTFlm 9H4jZF1U73jwp6bBGfkcA A3DIVqEgDagskrr0kshQt 6IDcuNmluOyBt YVJzrO41ADM2rU50Hu62d UNnlDMrw9pjaVn0FgVdQX AuFHP5wDxyGZlut5MmBLO hO34vjYQrl3L5 VJPdlMzbyRYfHuDcqOV5p K8dQMfyvmtqp3fpfpqcRc p8jw59dORik0C9mRC8K4L aafG1FFVjbXZo OlnieKMPtJ4ekylxd3opl nadKyCbRVCwEVy0CUr6JE LdyTukVaDtZX02QVA1DIT uebFoC6RbHLKf pFsyNvB7c6K3Ii1WC8NQD cnzA6OFCBJFHSkimGM+PC 99ph02B6LhBfhpQcc3PIC bJMT8hIO4dJ9u AZHlCRqkn8O9zJM4K2Fwp sIsis8jl9fbTKZkGBwzP3 1taDLgp5E4EVTgmGI4OJV ibUhvDnNarB80 Oyc+YHHxrTkcc2WnOuzcx 4ydj8jqxFg5XcugGFBjtn OdjJatAIW3s2LxOi6rVBS rtUF7kBI3aD0p RkVpHkI7CBgoV403BzQme FRnOmkpO76bD8WykTD+PH TtVod0ILXfoIiiCT0eA6K hZGRpbmctbGVm rIkeOB6sDUKrcrxuVLZmz U6nECFeF3b0ZiWkVyO1NH nzB2UnYIJdtqmeEj45cN6 pXdIxWaQ1AUbe U3KdhbO0LUCayVCiFLkiU CR1F00ec2F9LUNcBOEqRN N9pKK8zO0scWdoadvkxEW mdDsgdmVydGlj ZLjhDTxbT528QFLnyGiqW kNvZGluZyBEYXRlOiAgMD YvMjUvMjAyNDwvdGQ+PHR lOXW0aJdsRODd yHGwRMjgQx6ttLnkzLjxN U9eTMFwcpigSZRyqN1wNX NtdCAgnRtgJF8dZNBeqni hm939FkTsCYC7 TNJzdKCaD6NvlO3pGtVmZ LSiYLQkI8TipHPoALsqT2 83AJrhYuP0IOKsxuKpN1C sLWFsaWduOiB0 l9C7En3Kp9GwjmzwW2Idp GSjSbNoGqgpNVq3A7QkCj wvdHI+HP80BILaTN75NVa 4LVX0cIcfLLrl HBIeX1GpnI6wRvWxFEUaD GRkOyc+PHRhYmxlIHdpZH RoPScxMDAlJyBzdHlsZT0 tQr8hGLGdIBBl mIxciYXtZiNam0sqVYJyQ NihNT9hpQutV7DbgNL0UE Kgl4t3Oc04J57eB8MrfPD +LCMgnMJ0eXX8 hM2vIhSiAyY4DUhiW945D uCibXCxGwikx2jhm2sdgM g1OfD5IVOdtqHjlZmtIBD 8e6FwNi32Z26i IHdpZHRoPSIxNSUiIHZhb Lyspy4uqA2fIm9+PGNvbC E6pMN3eL3cTkCaHjJ9KRo qR682SiYqrRWk Gbkcv9dsy7mzyAg7HjCzZ MPzoqQxgLymGPI5g7ZuTk 90H2VkmMody9IeDuf9db8 8mEYcl6T5yHJ8 F2SzKVQndxsblYCdwHsoS N5tWYVfbuhcDNCalI8yYT AiM3e7PuLlZyC6ZQhvX8N ifgM4RSOfjAPu MTQniMGUuS5kagyja2dqa iujSzUaDWNwRBz7GZn8EK DjtSvmRrIcRBY4ZfT6YZQ 8kLYtrK5ksSld dmhcrZ3oQok+KSX5oAWhy XAKSQ7uHyjzzZL+PHRkIH R5aWqpIDreSNJzvL4kACW oZ8w1EtWmNpT3 NArrK3TxlgY5VESgfILgT AGstJFTjB8raixvq4jsgv ovYqDxFPJuWSq3DXl9UZZ saWduOiBsZWZ0 ExW3MUG1hKOuvJ8kgZgkg uouxS6nGbu+QmlydGggRG T9XQa4K8NdHac9EWVjdXj rYI5cqIGgUVzn Vq8rpGsmbJndQV4gSEMqe pegn534ZsHne3tlLJPcoI FsHQfiIMF2W31mn5S6DJW eHLZjPPF5gGS9 iT9bbTolzyrcdSTusJwsn dMtzMrxDVvjEXzdI278OK WguEqfWkIiPHx2Q2UgDcq 4EDBnkExsFL6v fEApQBofIj9moCcbiSvpD Q7aMRXmzpaca785CyPcp4 qkVHQezSHtICqjWDT1Z64 vk8U7LKCfHXOg WRI4xUK1oJ4jiFlseuxqp GVmdDsgdmVydGljYWwtYW gvN672QGSfrZzlPnVgpYb 0F6LfVpk0WFEg bVawQD7dwZSaLVqxHm9ry CuduPdaOS2kNBWywdwdg7 39AlMyz8vwZNCobSBxMQi lLPG9V93zf9U8 GAFiEHBqIPA8bUX2jR8eu GlnbjogbGVmdDsgdmVydG iiTEnpVJblW034ATModLz nPlBhdGllbnQg GXmqTGa5U9LcDfjukME+P N88TFZvTW35aUZhuQUdl0 txvLs9WdSyYKGxHBL5iYb xYQwmu8YvHBLi B44cjPBvt9Y9HBJweDyly JDqStZbbNS5jO1zCSdinx yjg5bpzikxAxpsg2knpe4 3fP08D08cZAoa ZHRoPSIzMCUiIHZhbGlnb s9ulK2dTy0+RMTsoVR6wN U0iE2zGNKmRoZ2WLovN47 9InRvcCIvPjxj r8gfd3mauSl0AhY4SVZas tFizTktFQN0z0IvRn79G9 9sIHdpZHRoPSIyMCUiIHZ uqWssdg5syQ2b Ii8+GVFmqYN9dOD6oW8bL vLwLxM0BMdsI819EdSjdA XnArxwY75eY1BfkGM+PHR hKbm9ZFCvmFvs NK7gnXVkCCkdXe9uSDV2H hLkIsIlTXlmW5LmWDUowi idnrwsiGL5BRPwCVIejE2 0Ed3daTgmNXDl uYFQqI5xnogew8bpbyapK mSpRYBfXYf4KEs4RTSckB fdDyWlNPX9PuK4SZY0rVO qeP7uhPnezhqb vQ2oW9RkPYLfjcpnFq01e D0nIuXlTkM7MVgcPeb+TE BWUJuiY7LTTHeREX5cUXl vdGQ+PHRkIHN0 mIjeAEzySANjzR9hXNWcG 8f5ZjAkSpD4VCbeO7TjXX QybzfrId88wA2aKaNgOsK 3GGpoZ0VrikE3 VJLsjEMiYOxyVCN3R50vy 6E3KYVzKUEzHZW3mUP0fG 1hbGlnbjogbGVmdDsgdmV ydGljYWwtYWxp L841QGTjaYkqMoElNjWoD dP0BII8O1LqGmx0JPQopE szTL1xgFGpOYocRk6tmNl bvRsiYD5lBDTi iqzpXEEmbA9lYXMeeZUmf ItzRC0pAMBwbzize081Zv IcMCR5OBDqqPPaA2VsyT7 yOiAjMDAwMDAw K1XquTBeKXyqQ273MCccQ aW2RKGvovIlD9NfQDOfiZ dpBbK0u3R1Zp35MxOIXUC yczwvdGQ+PHRk UYE2pYtzUNioYNKrfW2pE HHuR8b1FuTdOeI1XFzbZ3 LmPBCcqtqwUm40eA5dSiG iXlE2WMdbW4Re eqT5KJBvlDIiOIbcJSQ7Z 69pz7K7HCRkOFUfIHR9wV E2eV6vrBtbgvqmkTLinXd gdmVydGljYWwt FNalA285GDWnnDqgSuLtz WFsZTwvdGQ+PMPmUBZ4mM mjJQfuGTTawC9yLUGgP4e 9UvCeNfQ8VQdu L1LcSOQpiaqfIw21wU0bB fDtFcS8KKblJ4DfmjA1WC DsvNVtXAjtVPN6P97lz1X 8LSIjDAGuVTP3 kDE4jZ3yfRkwflhvpATyv DsgdmVydGljYWwtYWxpZ2 44NQTmgIalFssvUcTOmw2 aMS0kFvfutNX+ RK33cz16B9QcRqqvHik0B SNzYBE7jLC4kT0kZHJqLY vzq3X1tJV0H8UqzuIdys6 lk2vwBJDtZJwf S16crBRut2U4LQEzzEG8J SNhvXxrFrWztJ82Tmc+PG EqqIlll3ObXcutz3asu8d ioBy1PbCbPYDe mnEchWyhNBO1q6UvYj27V 29sIHdpZHRoPSIzMCUiIH WotAldmn7eiA2rFq4+PGN whGG4tOX0oQ2v BuJpLmA2WTukD932LlWlo MIyNwmuf1qsv6ugkTa1Ei OjGLYbumLwzUjiTAS8i1U gSy26S8UxoAqz b2ObSch1kk44wVRyt8K1f YF0Q9HoJCWfybduaTCudQ abBP3wUVBmclccCYDrpC5 lQQBaW4t4FjXl EbW4CKvvK2NzmsH5HFHjn VIxIENnbRWXvA7wjazix8 mjhcfzKsYoRIZjOKw4EWe 0LWFsaWduOiBs MIE8UsB6CZV7mROrdS0ay XzxdnkreG6rAjw+UGh5c2 eqvIXnOU6uoPH1FS89HF6 1cGTyw2N2xWW1 E9QrOUNtjxwcoymrfRZ1U TPcHHXswH29Yi0cwXthGa 4vTADgJNN3NAUuzPDzG4W ksT1iSzScGJZv POKfN9ZyyFEvBDjzW046Y XfvRlO5HCFzceRtS2TfMJ LriIgrIzE2x2O8Bk1TXL1 5YL36XV16iZNq h1B9dFC9I7LoXQKcruqkk mrtaHB9JLNeIVQozF24Co 6pjTuwNi4nZNOiSJM4SVB svIFzI2SdmR8n BoAwAKWlCADjO4TjjLDpD StsQ219KPttOpS9YRUfnr AvK7BbNJUogGxtCeW0o6A 6Kj3REt19XE05 JO71vQUtp4N8cKK1H4IsP LAlqltvbpqdjMQ2XLLiZU EloF28Rb3umUyqIs0aQJN gRBI4GRIasLOl X5TxiW3lAqSkWRLsHKGqJ 4GpyPVdOYdxR600NJnlSe C3QCZdjzExF9AmOVHetSp tTzN9a9M0Tn1N SIckziw5L3UnMlxeoKY+P C26EGTgGK52jZExaWXzr1 mxvZl4ZnBkRRGzGOR7rWd aAEzdp5CoRNSv L37upYRcw6J9L (more content not included)... Normal [employer] [...] health care provider. General instructions ? Take crbl-dlp-szxhiuy and prescription medicines only as told by [...] monitor yo (more content not included)... Normal [facility] C Urineon 03-02-2024 Bacteria identified [...] was performed at: [facility], [address] [place] [address], [facility]- , , [facility] Comment on above: Performed By: #### 2 [id number] #### [facility] [address] [place] [address] Physician Referralon 024 Physician Referral [id number]. [id number] Normal [facility] Screenson 03-01-2024 Screens [id number] Normal [facility] Ambulatory Visit Summaryon 0 02-29-2024 [...] for choosing us for your care. Normal [facility] GLYCOHEMOGLOBIN A1Con 2021 ADA RECOMMENDATION SEE BELOW Normal [facility] Comment on above: Result Comment: ADA RECOMMENDED LIMIT 4.0 - 6.0 ADA THERAPEUTIC TARGET < 7.0 ACTION SUGGESTED > 7.0 Performed By: #### A 1C #### [facility] [address] [address] [address] Julisa Lowe Glucose [Mass/Vol] 235 mg/dL Normal [facility] Comment on above: Performed By: #### A 1C #### [facility] [address] [address] [address] Julisa Lowe HbA1c (Bld) [Mass fraction] 9.8 % Critically high 4.5-6.2 [facility] Comment on above: Performed By: #### A 1C #### [facility] [address] [place] [address] Dr. Julisa Lowe PROF CHEM 8 (BAS METB)on Anion gap [Moles/Vol] 17.7 mmol/L Normal [facility] Comment on above: Performed By: #### B MP #### [facility] [address] [place] [address] Dr. Julisa Lowe Calcium [Mass/Vol] 9.3 mg/dL Normal 8.5-10.1 [facility] Comment on above: Performed By: #### B MP #### [facility] [address] [place] [address] Dr. Julisa Lowe Chloride [Moles/Vol] 107 mmol/L Normal 98-107 [facility] Comment on above: Performed By: #### B MP #### [facility] [address] [place] [address] Dr. Julisa Lowe CO2 [Moles/Vol] 24.3 mmol/L Normal 21.0-32.0 [facility] Comment on above: Performed By: #### B MP #### [facility] [address] [place] [address] Dr. Julisa Lowe Creatinine [Mass/Vol] 0.90 mg/dL Normal 0.55-1.02 [facility] Comment on above: Performed By: #### B MP #### [facility] [address] [place] [address] Dr. Julisa Lowe EGFR-AF SPANISH >60 Normal >=60 [facility] Comment on above: Performed By: #### B MP #### [facility] [address] [place] [address] Dr. Julisa Lowe EGFR-NON AF SPANISH >60 Normal >=60 [facility] Comment on above: Performed By: #### B MP #### [facility] [address] [place] [address] Dr. Julisa Lowe Glucose [Mass/Vol] 196 mg/dL Critically high 74-106 T [facility] Comment on above: Performed By: #### B MP #### [facility] [address] [address] [address] Julisa Lowe Potassium [Moles/Vol] 5.0 mmol/L Normal 3.5-5.1 [facility] Comment on above: Performed By: #### B MP #### [facility] [address] [address] [address] Julisa Lowe Sodium [Moles/Vol] 144 mmol/L Normal 136-145 [facility] Comment on above: Performed By: #### B MP #### [facility] [address] [address] [address] Julisa Loew Urea nitrogen [Mass/Vol] 33.0 mg/dL Critically high 7.0-18.0 [facility] Comment on above: Performed By: #### B MP #### [facility] [address] [address] [address] Julisa Lowe Urea nitrogen/Creatinine [Mass ratio] 36.7 mg/mg Normal [facility] Comment on above: Performed By: #### B MP #### [facility] [address] [address] [address] Julisa Lowe Basophils Auto (Bld) [#/Vol] Ordered By: Hood Patel on 05-12-2022 Basophils (Bld) [#/Vol] 0.1 10*3/uL 0.0-0.2 [facility] Basophils/100 WBC Auto (Bld) Ordered By: Hood Patel on 05-12-2022 Basophils/100 WBC (Bld) 0.7 % . [facility] Blood hemoglobin measurement (mass/volume)Ordered By: Hood Patel on 05-12-2022 Hemoglobin (Bld) [Mass/Vol] 11.8 g/dL 11.8-15.4 [facility] Blood leukocytes automated c ount (number/volume)Ordered By: Hood Patel on 05-12-2022 WBC (Bld) [#/Vol] 7.6 10*3/uL 4.5-11.0 [facility] CT biopsyOrdered By: Merna Patel on 05-12-2022 Transferrin [Mass/Vol] 206 mg/dL 180-380 [facility] Complete Blood Count Auto Di ffon 05-12-2022 Basophils (Bld) [#/Vol] 0.1 10*3/uL Normal 0.0-0.2 [facility] Comment on above: Result Comment: PERF ORMED BY: [place] [address] PATHOLOGIST CHEESEMAKING LABORER JENY DODGE M.D. Performed By: #### F E and TIBC, KATHY, [id number], CBC #### [address] Basophils/100 WBC (Bld) 0.7 % Normal . [facility] Comment on above: Performed By: #### F E and TIBC, KATHY, [id number], CBC #### [address] Eosinophils (Bld) [#/Vol] 0.1 10*3/uL Normal 0.0-0.45 [facility] Comment on above: Performed By: #### F E and TIBC, KATHY, [id number], CBC #### [address] Eosinophils/100 WBC (Bld) 1.6 % Normal . [facility] Comment on above: Performed By: #### F E and TIBC, KATHY, [id number], CBC #### [address] Erythrocyte distribution width (RBC) [Ratio] 27.8 % High 11.9-15.3 [facility] Comment on above: Performed By: #### F E and TIBC, KATHY, [id number], CBC #### [address] Hematocrit (Bld) [Volume fraction] 37.5 % Normal 34.0-46.4 [facility] Comment on above: Performed By: #### F E and TIBC, KATHY, [id number], CBC #### [address] Hemoglobin (Bld) [Mass/Vol] 11.8 g/dL Normal 11.8-15.4 [facility] Comment on above: Performed By: #### F E and TIBC, KATHY, [id number], CBC #### [address] Lymphocytes (Bld) [#/Vol] 2.4 10*3/uL Normal 1.00-4.8 [facility] Comment on above: Performed By: #### F E and TIBC, KATHY, [id number], CBC #### [address] Lymphocytes/100 WBC (Bld) 32.0 % Normal . [facility] Comment on above: Performed By: #### F E and TIBC, KATHY, [id number], CBC #### [address] MCH (RBC) [Entitic mass] 24.2 pg Low 24.7-34.3 [facility] Comment on above: Performed By: #### F E and TIBC, KATHY, [id number], CBC #### [address] MCV (RBC) [Entitic vol] 76.9 fL Low 80-100 [facility] Comment on above: Performed By: #### F E and TIBC, KATHY, [id number], CBC #### [address] Mean Corpuscular HGB Conc 31.4 g/dL Low 32.0-35.0 [facility] Comment on above: Performed By: #### F E and TIBC, KATHY, [id number], CBC #### [address] Monocytes (Bld) [#/Vol] 0.4 10*3/uL Normal 0.0-0.8 [facility] Comment on above: Performed By: #### F E and TIBC, KATHY, [id number], CBC #### [place] [address] [place] Monocytes/100 WBC (Bld) 5.8 % Normal . [facility] Comment on above: Performed By: #### F E and TIBC, KATHY, [id number], CBC #### [place] [address] [place] Neutrophils (Bld) [#/Vol] 4.6 10*3/uL Normal 1.8-7.7 [facility] Comment on above: Performed By: #### F E and TIBC, KATHY, [id number], CBC #### [address] Neutrophils/100 WBC (Bld) 59.9 % Normal . [facility] Comment on above: Performed By: #### F E and TIBC, KATHY, [id number], CBC #### [place] [address] [place] Nucleated RBC/100 WBC (Bld) [Ratio] 0.2 % Normal 0-0.5 [facility] Comment on above: Performed By: #### F E and TIBC, KATHY, [id number], CBC #### [address] Platelet mean volume (Bld) [Entitic vol] 6.5 fL Normal 6.3-10.7 [facility] Comment on above: Performed By: #### F E and TIBC, KATHY, [id number], CBC #### [place] [address] [place] Platelets (Bld) [#/Vol] 231 10*3/uL Normal 150-450 [facility] Comment on above: Performed By: #### F E and TIBC, KATHY, [id number], CBC #### [place] [address] [place] RBC (Bld) [#/Vol] 4.88 10*6/uL Normal 3.60-5.00 [facility] Comment on above: Performed By: #### F E and TIBC, KATHY, [id number], CBC #### [facility] [address] WBC (Bld) [#/Vol] 7.6 10*3/uL Normal 4.5-11.0 [facility] Comment on above: Performed By: #### F E and TIBC, KATHY, [id number], CBC #### [facility] [address] Eosinophils Auto (Bld) [#/Vo l]Ordered By: Hood Patel on 05-12-2022 Eosinophils (Bld) [#/Vol] 0.1 10*3/uL 0.0-0.45 [facility] Eosinophils/100 WBC Auto (Bl d)Ordered By: Hood Patel on 05-12-2022 Eosinophils/100 WBC (Bld) 1.6 % . [facility] Erythrocyte distribution wid th Auto (RBC) [Ratio]Ordered By: Hood Patel on 05-12-2022 Erythrocyte distribution width (RBC) [Ratio] 27.8 % 11.9-15.3 [facility] Ferritinon 05-12-2022 Ferritin [Mass/Vol] 218.6 ng/mL Normal 11-306.8 [facility] Comment on above: Performed By: #### F E and TIBC, KATHY, [id number], CBC #### [facility] [address] Ferritin [Mass/volume] in Se rum or PlasmaOrdered By: Hood Patel on 05-12-2022 Ferritin [Mass/Vol] 218.6 ng/mL 11-306.8 [facility] Folate [Mass/volume] in Seru m or PlasmaOrdered By: Hood Patel on 05-12-2022 Folate [Mass/Vol] 7.9 ng/mL >5.9 [facility] Comment on above: Folate reference ran ge: >5.9 ng/ml The WHO technical consultation on folate and vitamin b12 deficiencies has determined that folate concentrations less than 4 ng/ml are considered deficient. Glucose Glucometer (BldC) [M ass/Vol]Ordered By: Hood Patel on 05-12-2022 Glucose [Mass/Vol] 426 mg/dL [facility] Comment on above: Random Glucose Refer ence Range is dependent on time and content of last meal. Glucose of more than 200 mg/dL in a nonstressed, ambulatory subject supports the diagnosis of Diabetes Mellitus. Glucose Poct Glucometerson 0 05-12-2022 Commemt1 Normal [facility] Comment on above: Result Comment: Glu2 : Result Not Confirmed PERFORMED BY: [place] [address] PATHOLOGIST [employer] JENY DODGE M.D. Performed By: #### G LULS #### Point of Care testing , Glucose [Mass/Vol] 426 mg/dL Off scale high [facility] Comment on above: Result Comment: Mora om Glucose Reference Range is dependent on time and content of last meal. Glucose of more than 200 mg/dL in a nonstressed, ambulatory subject supports the diagnosis of Diabetes Mellitus. Performed By: #### G LULS #### Point of Care testing , Hematocrit Auto (Bld) [Volum e fraction]Ordered By: Hood Patel on 05-12-2022 Hematocrit (Bld) [Volume fraction] 37.5 % 34.0-46.4 [facility] Iron [Mass/volume] in Serum or PlasmaOrdered By: Hood Patel on 05-12-2022 Iron [Mass/Vol] 48 ug/dL 40-150 [facility] Iron and TIBC Profileon 04-15 % Iron Saturation 16.0 % Low 20-50 [facility] Comment on above: Performed By: #### F E and TIBC, KATHY, [id number], CBC #### [facility] [address] Iron [Mass/Vol] 48 ug/dL Normal 40-150 [facility] Comment on above: Performed By: #### F E and TIBC, KATHY, [id number], CBC #### [facility] [address] Total Iron Binding Capacity 288 ug/dL Normal 255-450 [facility] Comment on above: Performed By: #### F E and TIBC, KATHY, [id number], CBC #### [facility] [address] Transferrin [Mass/Vol] 206 mg/dL Normal 180-380 [facility] Comment on above: Performed By: #### F E and TIBC, KATHY, [id number], CBC #### [facility] [address] Iron binding capacity [Mass/ volume] in Serum or PlasmaOrdered By: Hood Patel on 05-12-2022 Iron binding capacity [Mass/Vol] 288 ug/dL 255-450 [facility] Iron saturation [Mass Fracti on] in Serum or PlasmaOrdered By: Hood Patel on 05-12-2022 Iron saturation [Mass fraction] 16.0 % 20-50 [facility] [place] 05-12-2022 L - -------- Specimen: [id number] Received: 05/12/22 Status: CORRY Hernandez Num: [id number] Spec Type: Surgical Subm Dr: Hood Patel MD Tissues: A Duodenum - Biopsy (DUODENAL BX) Procedures: HE Stain/2, Gross/Micro L4 -------- Age/ Patient Sex Location Account Attending Physician -------- RaRobina Ivette 71/F [id number] Hood Patel MD -------- SPEC NUM: [id number] RECD: 05/12/22 STATUS: CORRY GRAD[place] NUM: [id number] PROSPER: 05/12/[address] [facility] [address]: Hood Patel MD ENTERED: 05/12/[address] [facility] DR: VELASQUEZ TYPE: Surgical DEPT: S ORDERED: [...] microscopic findings support the above pathologic diagnosis. [address] -------- -------- Specimen: [id number] Received: 05/12/22 Status: CORRY Hernandez Num: [id number] Spec Type: Surgical Subm Dr: Hood Patel MD Tissues: A Duodenum - Biopsy (DUODENAL BX) Procedures: HE Stain/2, Gross/Micro L4 -------- Patient: Robina Ron [id number] (Continued) -------- Signed (signature on file) Jeny Dodge MD 05/13/22 1381 [facility] - Chemistry and C hemistry - challengeOrdered By: Hood Patel on 05-12-2022 Cobalamin (Vitamin B12) [Mass/Vol] 277 pg/mL 180-914 [facility] - Hematology and Cell countsOrdered By: Hood Patel on 05-12-2022 Nucleated RBC/100 WBC (Bld) [Ratio] 0.2 % 0-0.5 [facility] Lymphocytes Auto (Bld) [#/Vo l]Ordered By: Hood Patel on 05-12-2022 Lymphocytes (Bld) [#/Vol] 2.4 10*3/uL 1.00-4.8 [facility] Lymphocytes/100 WBC Auto (Bl d)Ordered By: Hood Patel on 05-12-2022 Lymphocytes/100 WBC (Bld) 32.0 % . [facility] MCH Auto (RBC) [Entitic mass ]Ordered By: Hood Patel on 05-12-2022 MCH (RBC) [Entitic mass] 24.2 pg 24.7-34.3 [facility] MCHC Auto (RBC) [Mass/Vol]Or dered By: Hood Patel on 05-12-2022 MCHC (RBC) [Mass/Vol] 31.4 g/dL 32.0-35.0 [facility] MCV Auto (RBC) [Entitic vol] Ordered By: Hood Patel on 05-12-2022 MCV (RBC) [Entitic vol] 76.9 fL 80-100 [facility] Monocytes Auto (Bld) [#/Vol] Ordered By: Hood Patel on 05-12-2022 Monocytes (Bld) [#/Vol] 0.4 10*3/uL 0.0-0.8 [facility] Monocytes/100 WBC Auto (Bld) Ordered By: Hood Patel on 05-12-2022 Monocytes/100 WBC (Bld) 5.8 % . [facility] Neutrophils Auto (Bld) [#/Vo l]Ordered By: Hood Patel on 05-12-2022 Neutrophils (Bld) [#/Vol] 4.6 10*3/uL 1.8-7.7 [facility] Neutrophils/100 WBC Auto (Bl d)Ordered By: Hood Patel on 05-12-2022 Neutrophils/100 WBC (Bld) 59.9 % . [facility] No Panel InformationOrdered By: Hood Patel on 05-12-2022 Bedside Glucose Comment See comment [facility] Comment on above: Glu2: Result Not Con firmed Platelet mean volume Auto (B ld) [Entitic vol]Ordered By: Hood Amanda on 05-12-2022 Platelet mean volume (Bld) [Entitic vol] 6.5 fL 6.3-10.7 [facility] Platelets Auto (Bld) [#/Vol] Ordered By: Hood Tanormack on 05-12-2022 Platelets (Bld) [#/Vol] 231 10*3/uL 150-450 [facility] RBC Auto (Bld) [#/Vol]Ordere d By: Hood Patel on 05-12-2022 RBC (Bld) [#/Vol] 4.88 10*6/uL 3.60-5.00 [facility] Vit. B12/Folate Profileon Cobalamin (Vitamin B12) [Mass/Vol] 277 pg/mL Normal 180-914 [facility] Comment on above: Performed By: #### F E and TIBC, KATHY, [id number], CBC #### [facility] [address] Folate 7.9 ng/mL Normal >5.9 [facility] Comment on above: Result Comment: Katelyn te reference range: >5.9 ng/ml The WHO technical consultation on folate and vitamin b12 deficiencies has determined that folate concentrations less than 4 ng/ml are considered deficient. PERFORMED BY: [place] [address] PATHOLOGIST [employer]ESEMAKING LABORER JENY DODGE M.D. Performed By: #### F E and TIBC, KATHY, [id number], CBC #### [facility] [address] COVID-19 FRMCon 05-07-2022 SARS-CoV-2 (COVID-19) RNA CHALINO+probe Ql (Unsp spec) Negative Normal Negative [facility] Comment on above: Order Comment: Healt hcare Worker?: N Result Comment: Testing for SARS-CoV-2 by RT-PCR This test was developed and its performance characteristics determined by [employer] ([employer]) and validated at the [facility]. This test has not been FDA cleared [...] is terminated or revoked sooner. PERFORMED BY: [place] [address] PATHOLOGIST CHEESEMAKING LABORER JENY DODGE M.D. Performed By: #### C OVID 19 [facility] #### [address] COVID-19 Positive/NegativeOr dered By: Hood Patel on 05-07-2022 SARS-CoV-2 (COVID-19) N gene CHALINO+probe Ql (Resp) Negative Negative [facility] Comment on above: Testing for SARS-CoV -2 by RT-PCR This test was developed and its performance characteristics determined by [employer] ([employer]) and validated at the [facility]. This test has not been FDA cleared [...] Basophils (Bld) [#/Vol] 0.03 10*3/uL Normal <0.11 [facility] Comment on above: Order Comment: Speci men Type: BLOOD SPECIMEN Ordering Facility: [facility] Address: [address] [place] [address] Performed By: #### 5 7021-8, 09149-6 #### [facility] CLIA [id number] [address] [place] [address] 76899 Basophils/100 WBC (Bld) 0.3 % Normal [facility] Comment on above: Order Comment: Speci men Type: BLOOD SPECIMEN Ordering Facility: [facility] Address: [address] [place] [address] Performed By: #### 5 7021-8, 84554-7 #### [facility] CLIA [id number] [address] [place] [address] 65002 Differential cell count method Nom (Bld) Auto Normal [facility] Comment on above: Order Comment: Speci men Type: BLOOD SPECIMEN Ordering Facility: [facility] Address: [address] [place] [address] Performed By: #### 5 7021-8, 71137-8 #### [facility] CLIA [id number] [address] [place] [address] 25622 Eosinophils (Bld) [#/Vol] 0.09 10*3/uL Normal <0.46 [facility] Comment on above: Order Comment: Speci men Type: BLOOD SPECIMEN Ordering Facility: [facility] Address: [address] [place] [address] Performed By: #### 5 7021-8, 61282-9 #### [facility] CLIA [id number] [address] [place] [address] 19149 Eosinophils/100 WBC (Bld) 1.0 % Normal [facility] Comment on above: Order Comment: Speci men Type: BLOOD SPECIMEN Ordering Facility: [facility] Address: [address] [place], [place] [address] Performed By: #### 5 7021-8, 92200-9 #### [facility] CLIA [id number] [address] [place] [address] 38074 Erythrocyte distribution width (RBC) [Ratio] 20.4 % High 11.5-15.0 [facility] Comment on above: Order Comment: Speci men Type: BLOOD SPECIMEN Ordering Facility: [facility] Address: [address] [place] [address] Performed By: #### 5 7021-8, 49793-2 #### [facility] CLIA [id number] [address] [place] [address] 10444 Hematocrit (Bld) [Volume fraction] 33.1 % Low 36.0-46.0 [facility] Comment on above: Order Comment: Speci men Type: BLOOD SPECIMEN Ordering Facility: [facility] Address: [address] [place] [address] Performed By: #### 5 7021-8, 56763-4 #### [facility] CLIA [id number] [address] [place] [address] 05106 Hemoglobin (Bld) [Mass/Vol] 9.3 g/dL Low 11.5-15.5 [facility] Comment on above: Order Comment: Speci men Type: BLOOD SPECIMEN Ordering Facility: [facility] Address: [address] [place] [address] Performed By: #### 5 7021-8, 42007-4 #### [facility] CLIA [id number] [address] [place] [address] 83425 IMMATURE GRAN % 0.9 % Normal [facility] Comment on above: Order Comment: Speci men Type: BLOOD SPECIMEN Ordering Facility: [facility] Address: [address] [place] [address] Performed By: #### 5 7021-8, 51289-1 #### [facility] CLIA [id number] [address] [place] [address] IMMATURE GRAN ABS 0.08 k/uL Normal <0.10 [facility] Comment on above: Order Comment: Speci men Type: BLOOD SPECIMEN Ordering Facility: [facility] Address: [address] [place] [address] Performed By: #### 5 7021-8, 32760-2 #### [facility] CLIA [id number] [address] [place] [address] 09254 Lymphocytes (Bld) [#/Vol] 2.43 10*3/uL Normal 1.00-4.00 [facility] Comment on above: Order Comment: Speci men Type: BLOOD SPECIMEN Ordering Facility: [facility] Address: [address] [place] [address] Performed By: #### 5 7021-8, 38652-3 #### [facility] CLIA [id number] [address] [place] [address] 86217 Lymphocytes/100 WBC (Bld) 26.6 % Normal [facility] Comment on above: Order Comment: Speci men Type: BLOOD SPECIMEN Ordering Facility: [facility] Address: [address] [place] [address] Performed By: #### 5 7021-8, 15760-5 #### [facility] CLIA [id number] [address] [place] [address] 21449 MCH (RBC) [Entitic mass] 20.2 pg Low 26.0-34.0 [facility] Comment on above: Order Comment: Speci men Type: BLOOD SPECIMEN Ordering Facility: [facility] Address: [address] [place] [address] Performed By: #### 5 7021-8, 65046-4 #### [facility] CLIA [id number] [address] [place] [address] 04188 MCHC (RBC) [Mass/Vol] 28.1 g/dL Low 30.5-36.0 [facility] Comment on above: Order Comment: Speci men Type: BLOOD SPECIMEN Ordering Facility: [facility] Address: [address] Performed By: #### 5 7021-8, 91938-2 #### [facility] CLIA [id number] [address] [place] [address] 57016 MCV (RBC) [Entitic vol] 72.0 fL Low 80.0-100.0 [facility] Comment on above: Order Comment: Speci men Type: BLOOD SPECIMEN Ordering Facility: [facility] Address: [address] [place], [place] [address] Performed By: #### 5 7021-8, 62103-8 #### [facility] CLIA [id number] [address] [place] [address] 63134 Monocytes (Bld) [#/Vol] 0.48 10*3/uL Normal <0.87 [facility] Comment on above: Order Comment: Speci men Type: BLOOD SPECIMEN Ordering Facility: [facility] Address: [address] Performed By: #### 5 7021-8, 19463-0 #### [facility] CLIA [id number] [address] [place] [address] 87644 Monocytes/100 WBC (Bld) 5.3 % Normal [facility] Comment on above: Order Comment: Speci men Type: BLOOD SPECIMEN Ordering Facility: [facility] Address: [address] Performed By: #### 5 7021-8, 24421-9 #### [facility] CLIA [id number] [address] [place] [address] 05493 Neutrophils (Bld) [#/Vol] 6.02 10*3/uL Normal 1.45-7.50 [facility] Comment on above: Order Comment: Speci men Type: BLOOD SPECIMEN Ordering Facility: [facility] Address: [address] [place], [place] [address] Performed By: #### 5 7021-8, 45328-1 #### [facility] CLIA [id number] [address] [place] [address] Neutrophils/100 WBC (Bld) 65.9 % Normal [facility] Comment on above: Order Comment: Speci men Type: BLOOD SPECIMEN Ordering Facility: [facility] Address: [address] [place] [address] Performed By: #### 5 7021-8, 66649-6 #### [facility] CLIA [id number] [address] [place] [address] 46993 Nucleated RBC (Bld) [#/Vol] 10*3/uL Normal <0.01 [facility] Comment on above: Order Comment: Speci men Type: BLOOD SPECIMEN Ordering Facility: [facility] Address: [address] [place] [address] Performed By: #### 5 7021-8, 79967-3 #### [facility] CLIA [id number] [address] [place] [address] 02000 Nucleated RBC/100 WBC (Bld) [Ratio] 0.0 /100 WBC Normal [facility] Comment on above: Order Comment: Speci men Type: BLOOD SPECIMEN Ordering Facility: [facility] Address: [address] [place] [address] Performed By: #### 5 7021-8, 08348-2 #### [facility] CLIA [id number] [address] [place] [address] 12842 Platelet mean volume (Bld) [Entitic vol] 7.7 fL Low 9.0-12.7 [facility] Comment on above: Order Comment: Speci men Type: BLOOD SPECIMEN Ordering Facility: [facility] Address: [address] [place] [address] Performed By: #### 5 7021-8, 02693-9 #### [facility] CLIA [id number] [address] [place] [address] 68473 Platelets (Bld) [#/Vol] 318 10*3/uL Normal 150-400 [facility] Comment on above: Order Comment: Speci men Type: BLOOD SPECIMEN Ordering Facility: [facility] Address: [facility] [address] [place] [id number] Performed By: #### 5 7021-8, 12210-5 #### [facility] CLIA [id number] [address] [place] [address] 51713 RBC (Bld) [#/Vol] 4.60 10*6/uL Normal 3.90-5.20 [facility] Comment on above: Order Comment: Speci men Type: BLOOD SPECIMEN Ordering Facility: [facility] Address: [address] [place], [place] [address] Performed By: #### 5 7021-8, 71658-1 #### [facility] CLIA [id number] [address] [place] [address] 05732 WBC (Bld) [#/Vol] 9.13 10*3/uL Normal 3.70-11.00 [facility] Comment on above: Order Comment: Speci men Type: BLOOD SPECIMEN Ordering Facility: [facility] Address: [address] [place], [place] [address] [place] [id number] Performed By: #### 5 7021-8, 90538-9 #### [facility] CLIA [id number] [address] [place] [address] 37433 CNOVSPon 04-14-2022 OVS Visit (SP) Office ([place]) ROBINA RON ([id number]) 1950 F Date Time Provider Department 04/14/22 1:15 PM CHRISTI FINK During your visit today, we recorded the following information about you: Temperature Pulse Respiration Blood pressure 97.9 degrees 80/minute 16/minute 149/60 Weight Height 53.6 kg 1.524 m Christi Fink MD 04/14/2022 1:13 PM Signed PATIENT NAME: Robina Ron CLINIC NO.: [id number] ATTENDING PHYSICIAN: Christi Fink MD DATE OF [...] sciatica - COPD (chronic obstructive pulmonary disease) ([facility]) - CVA (cerebral vascular accident) ([facility]) - Diabetes mellitus (HCC) - Dyspnea - Factor V Leiden ([facility]) - GERD (gastroesophageal reflux disease) - History of colon polyps - Hyperlipidemia - Hypertension - Hypokalemia - Leukocytosis - JARRET (obstructive sleep apnea) - PAD (peripheral artery disease) ([facility]) - Pericardial effusion Social History Tobacco [...] Date Valu (more content not included)... Normal [facility] CNPNon 04-14-2022 CNPN Telephone ([place]) ROBINA RON ([id number]) 1950 F Date Time Provider Department 04/14/22 CHRISTY BYRD During your visit today, we recorded the following information about you: Christy Byrd RN 04/14/2022 1:25 PM Signed Key Monteiro from [facility] Client Services calls to report [...] is now seen by Dr Rainey at [facility]. Call placed to their office ([phone]) and message left requesting a call back. PSS: can you please update pt's PCP info. Thanks, JOS Bustamante Pss 04/14/2022 2:03 PM Signed PCP updated in chart Makenna Kendall RN 04/17/2022 10:39 AM Signed Call placed to [facility]. Office is closed. JOS Bustamante RN 04/21/2022 12:55 PM Signed Message left with Dr Rainey's medical intern again today regarding this pt and the urgency of this being addressed. Will try again later today if I don't hear back from their office. JOS Bustamante RN 04/21/2022 1:35 PM Signed Spoke with Pankaj at Dr Rainey's office. Recent records and labs faxed to [phone] per office request. JOS Bustamante RN 04/21/2022 [...] Status:Closed by MAKENNA KENDALL on 04/21/22 Normal [facility] Comprehensive metabolic 2000 panelon 04-14-2022 Albumin [Mass/Vol] 3.5 g/dL Low 3.9-4.9 [facility] Comment on above: Order Comment: Nel sher Type: BLOOD SPECIMEN Ordering Facility: [facility] Address: [address] [place] [address] Performed By: #### 2 4323-8 #### [facility] CLIA [id number] [address] [place] [address] 95642 ALP [Catalytic activity/Vol] 120 U/L Normal 34-123 [facility] Comment on above: Order Comment: Nel sher Type: BLOOD SPECIMEN Order[facility] Facility: [facility] Address: [address] Performed By: #### 2 4323-8 #### [facility] CLIA [id number] [address] [place] [address] ALT [Catalytic activity/Vol] 15 U/L Normal 7-38 [facility] Comment on above: Order Comment: Speci men Type: BLOOD SPECIMEN Ordering Facility: [facility] Address: [address] Performed By: #### 2 4323-8 #### [facility] CLIA [id number] [address] [place] [address] Anion gap [Moles/Vol] 13 mmol/L Normal 9-18 [facility] Comment on above: Order Comment: Speci men Type: BLOOD SPECIMEN Ordering Facility: [facility] Address: [address] [place] [address] Performed By: #### 2 4323-8 #### [facility] CLIA [id number] [address] [place] [address] 31804 AST [Catalytic activity/Vol] 21 U/L Normal 13-35 [facility] Comment on above: Order Comment: Speci men Type: BLOOD SPECIMEN Ordering Facility: [facility] Address: [address] Performed By: #### 2 4323-8 #### [facility] CLIA [id number] [address] [place] [address] 24075 Bilirubin [Mass/Vol] 0.2 mg/dL Normal 0.2-1.3 [facility] Comment on above: Order Comment: Speci men Type: BLOOD SPECIMEN Ordering Facility: [facility] Address: [address] Performed By: #### 2 4323-8 #### [facility] CLIA [id number] [address] [place] [address] Calcium [Mass/Vol] 9.1 mg/dL Normal 8.5-10.2 [facility] Comment on above: Order Comment: Speci men Type: BLOOD SPECIMEN Ordering Facility: [facility] Address: [address] [place] [address] Performed By: #### 2 4323-8 #### [facility] CLIA [id number] [address] [place] [address] 59341 Chloride [Moles/Vol] 103 mmol/L Normal 97-105 [facility] Comment on above: Order Comment: Speci men Type: BLOOD SPECIMEN Ordering Facility: [facility] Address: [address] [place] [address] Performed By: #### 2 4323-8 #### [facility] CLIA [id number] [address] [place] [address] 32695 CO2 [Moles/Vol] 22 mmol/L Normal 22-30 [facility] Comment on above: Order Comment: Speci men Type: BLOOD SPECIMEN Ordering Facility: [facility] Address: [address] [place] [address] Performed By: #### 2 4323-8 #### [facility] CLIA [id number] [address] [place] [address] 78438 Creatinine [Mass/Vol] 0.53 mg/dL Low 0.58-0.96 [facility] Comment on above: Order Comment: Speci men Type: BLOOD SPECIMEN Ordering Facility: [facility] Address: [address] [place] [address] Performed By: #### 2 4323-8 #### [facility] CLIA [id number] [address] [place] [address] 13595 ESTIMATED GLOMERULAR FILTRATION RATE 99 mL/min/1.73m??? Normal >=60 [facility] Comment on above: Order Comment: Speci men Type: BLOOD SPECIMEN Ordering Facility: [facility] Address: [address] [place] [address] Result Comment: Kaylynn mated Glomerular Filtration Rate [...] GFR. Performed By: #### 2 4323-8 #### [facility] CLIA [id number] [address] [place] [address] Glucose [Mass/Vol] 508 mg/dL High 74-99 [facility] Comment on above: Order Comment: Speci men Type: BLOOD SPECIMEN Ordering Facility: [facility] Address: [address] [place] [phone] Result Comment: The [place] [employer] (ADA) provides guidance for cutoff [...] Standards of Medical Care in Diabetes 2016, [place] [employer]. Diabetes Care. 2016.39(Suppl 1). Performed By: #### 2 4323-8 #### [facility] CLIA [id number] [address] [place] [address] Potassium [Moles/Vol] 3.6 mmol/L Low 3.7-5.1 [facility] Comment on above: Order Comment: Speci men Type: BLOOD SPECIMEN Ordering Facility: [facility] Address: [address] [place] [address] Performed By: #### 2 4323-8 #### [facility] CLIA [id number] [address] [place] [address] Protein [Mass/Vol] 5.4 g/dL Low 6.3-8.0 [facility] Comment on above: Order Comment: Speci men Type: BLOOD SPECIMEN Ordering Facility: [facility] Address: [address] [place] [address] Performed By: #### 2 4323-8 #### [facility] CLIA [id number] [address] [place] [address] 33872 Sodium [Moles/Vol] 138 mmol/L Normal 136-144 [facility] Comment on above: Order Comment: Speci men Type: BLOOD SPECIMEN Ordering Facility: [facility] Address: [address] [place] [address] Performed By: #### 2 4323-8 #### [facility] CLIA [id number] [address] [place], [place] [address] Urea nitrogen [Mass/Vol] 8 mg/dL Normal 7-21 [facility] Comment on above: Order Comment: Speci men Type: BLOOD SPECIMEN Ordering Facility: [facility] Address: [address] [place] [address] Performed By: #### 2 4323-8 #### [facility] CLIA [id number] [address] [place] [address]603 Ferritin SerPl-mCncon 2021 Ferritin [Mass/Vol] 15.5 ng/mL Normal 14.7-205.1 [facility] Comment on above: Order Comment: Speci men Type: BLOOD SPECIMEN Ordering Facility: [facility] Address: [address] [place] [address] Performed By: #### 2 276-4, 42377-9 #### [facility] CLIA [id number] [address] [place], [place] [address] [place] GLUCOSE, BLOOD (POC)on 04-14 Glucose [Mass/Vol] 373 mg/dL Abnormal 74 - 99 mg/dL [facility] Iron and Iron binding capaci ty panelon 04-14-2022 Iron [Mass/Vol] 17 ug/dL Low 41-186 [facility] Comment on above: Order Comment: Speci men Type: BLOOD SPECIMEN Ordering Facility: [facility] Address: [address] [place], [place] [address] Performed By: #### 2 276-4, 35372-3 #### [facility] CLIA [id number] [address] [place] [address] [place] Iron binding capacity [Mass/Vol] 337 ug/dL Normal 232-386 [facility] Comment on above: Order Comment: Speci men Type: BLOOD SPECIMEN Ordering Facility: [facility] Address: [address] [place] [address] Performed By: #### 2 276-4, 74968-5 #### [facility] CLIA [id number] [address] [place] [address] [place] Iron/TIBC [Molar ratio] 5.0 % Low 15.0-57.0 [facility] Comment on above: Order Comment: Speci men Type: BLOOD SPECIMEN Ordering Facility: [facility] Address: [address] [place] [address] Performed By: #### 2 276-4, 25402-6 #### [facility] CLIA [id number] [address] [place] [address] [place] Retics #on 04-14-2022 Reticulocytes (Bld) [#/Vol] 0.87251 10*3/uL Normal 0.018-0.100 [facility] Comment on above: Order Comment: Speci men Type: BLOOD SPECIMEN Ordering Facility: [facility] Address: [address] [place], [place] [id number] Performed By: #### 5 7021-8, 82774-3 #### [facility] CLIA [id number] [address] [place] [address] Reticulocytes (Bld) [#/Vol]o n 04-14-2022 Reticulocytes/100 RBC (Bld) 1.8 % Normal 0.4-2.0 [facility] Comment on above: Order Comment: Speci men Type: BLOOD SPECIMEN Ordering Facility: [facility] Address: [address] [place] [address] Performed By: #### 5 7021-8, 59652-4 #### [facility] CLIA [id number] [address] [place] [address]00 CBC AUTO DIFFon 04-08-2022 BASO # 0.0 103/ul Normal 0.0-0.1 [facility] Comment on above: Performed By: #### A 1C #### [facility] [address] [address] [address] Julisa Lowe Basophils/100 WBC (Bld) 0.4 % Normal 0.2-2.0 [facility] Comment on above: Performed By: #### A 1C #### [facility] [address] [place] [address] Dr. Julisa Lowe EO # 0.2 103/ul Normal 0.0-0.7 [facility] Comment on above: Performed By: #### A 1C #### [facility] [address] [place] [address] Dr. Julisa Lowe Eosinophils/100 WBC (Bld) 1.7 % Normal 0.9-7.0 [facility] Comment on above: Performed By: #### A 1C #### [facility] [address] [place] [address] Dr. Julisa Lowe Erythrocyte distribution width (RBC) [Ratio] 20.8 % Critically high 11.0-15.0 [facility] Comment on above: Performed By: #### A 1C #### [facility] [address] [place] [address] Dr. Julisa Lowe Hematocrit (Bld) [Volume fraction] 34.9 % Critically low 36.0-48.0 [facility] Comment on above: Performed By: #### A 1C #### [facility] [address] [place] [address] Dr. Julisa Lowe Hemoglobin (Bld) [Mass/Vol] 10.0 g/dL Critically low 12.0-16.0 [facility] Comment on above: Performed By: #### A 1C #### [facility] [address] [address] [address] Julisa Lowe IG # 0.08 10e3/ul Critically high 0.00-0.[address] [facility] Comment on above: Performed By: #### A 1C #### [facility] [address] [address] [address] Julisa Lowe IG % 0.7 % Critically high 0.0-0.5 [facility] Comment on above: Performed By: #### A 1C #### [facility] [address] [address] [address] Julisa Lowe LYMPH # 3.6 103/ul Normal 1.2-3.8 [facility] Comment on above: Performed By: #### A 1C #### [facility] [address] [place] [address] Dr. Julisa Lowe Lymphocytes/100 WBC (Bld) 33.3 % Normal 20.5-60.0 [facility] Comment on above: Performed By: #### A 1C #### [facility] [address] [place] [address] Dr. Julisa Lowe MANUAL DIFF REQ NO Normal [facility] Comment on above: Performed By: #### A 1C #### [facility] [address] [address] [address] Julisa Lowe MCH (RBC) [Entitic mass] 20.2 pg Critically low 26.7-34.0 [facility] Comment on above: Performed By: #### A 1C #### [facility] [address] [address] [address] Julisa Loew MCHC (RBC) [Mass/Vol] 28.7 g/dL Critically low 29.9-35.2 [facility] Comment on above: Performed By: #### A 1C #### [facility] [address] [address] [address] Julisa Lowe MCV (RBC) [Entitic vol] 70.6 fL Critically low 81.0-99.0 [facility] Comment on above: Performed By: #### A 1C #### [facility] [address] [address] [address] Julisa Lowe MONO # 0.6 103/ul Normal 0.3-0.8 [facility] Comment on above: Performed By: #### A 1C #### [facility] [address] [place] [address] Dr. Julisa Lowe Monocytes/100 WBC (Bld) 5.4 % Normal 1.7-12.0 [facility] Comment on above: Performed By: #### A 1C #### [facility] [address] [place] [address] Dr. Julisa Lowe NEUT # 6.4 103/ul Normal 1.4-6.5 [facility] Comment on above: Performed By: #### A 1C #### [facility] [address] [place] [address] Dr. Julisa Lowe Neutrophils/100 WBC (Bld) 58.5 % Normal 43.0-75.0 [facility] Comment on above: Performed By: #### A 1C #### [facility] [address] [place] [address] Dr. Julisa Lowe Platelet mean volume (Bld) [Entitic vol] 8.1 fL Critically low 9.5-13.5 [facility] Comment on above: Performed By: #### A 1C #### [facility] [address] [place] [address] Dr. Julisa Lowe PLT 325 103/ul Normal 150-450 [facility] Comment on above: Performed By: #### A 1C #### [facility] [address] [place] [address] Dr. Julisa Lowe RBC 4.94 106/ul Normal 4.20-5.40 [facility] Comment on above: Performed By: #### A 1C #### [facility] [address] [place] [address] Dr. Julisa Lowe WBC 10.9 103/ul Normal 4.0-11.0 [facility] Comment on above: Performed By: #### A 1C #### [facility] [address] [place] [address] Dr. Julisa Lowe FERRITINon 04-08-2022 Ferritin [Mass/Vol] 15.0 ng/mL Normal 8.0-252.0 [facility] Comment on above: Performed By: #### A 1C #### [facility] [address] [address] [address] Julisa Hopkins 04-06-2022 CNPN Telephone (NCCAP) ROBINA RON ([id number]) 1950 F Date Time Provider Department 04/06/22 CHRISTI FINK NCCBLANCA During your visit today, we recorded the following information about you: Makenna Hidalgo Sec 04/06/2022 7:49 AM Signed Please send records to [facility] office thanks! MD Tj Thompson; Makenna Hidalgo Sec Please refer her to GI for an upper endoscopy. ?Thanks [facility] 04/06/2022 8:12 AM Signed Gladys: Information ready for you. [facility] Shaye Gonzalez [facility] 04/06/2022 8:57 AM Signed Records faxed to Dr. iRch. [facility] 04/09/2022 8:40 AM Signed Called Angélica Romano spoke with [facility]. She states they have received this referral and their referral dept will be calling patient soon to schedule. I will call back sometime next week check on status of this referral. [facility] 04/13/2022 1:18 PM Signed Called Angélica Romano spoke with [facility]. She states they have called left patient message to call them back to schedule. [facility] 04/16/2022 9:07 AM Signed Called Angélica Romano spoke with [facility]. She states they have patient scheduled to see Dr Patel on 05/12 for EGD. [facility] Allergies As of Date: 04/06/2022 [...] by TJ HUNTER on 04/16/22 [facility] CNOVSPon 04-03-2022 CNOVSP Visit (SP) Office ([place]) ROBINA RON ([id number]) 1950 F Date Time Provider Department 04/03/22 4:30 PM CHRISTI FINK During your visit today, we recorded the following information about you: Temperature Pulse Respiration Blood pressure 97.4 degrees 90/minute 16/minute 107/38 Weight Height 53.6 kg 1.524 m Christi Fink MD 04/04/2022 11:07 AM Signed PATIENT NAME: Robina Ron CLINIC NO.: [id number] ATTENDING PHYSICIAN: Christi Fink MD DATE OF [...] not taking: Reported on 03/31/2022 ) - [id number]-Fish Oil 1,000 mg (120 mg-180 mg) cap [...] [Oxycodone* Mental (more content not included)... Normal [facility] ECHO LIMITED STUDYon 02-06-2 022 ECHO LIMITED STUDY Patient: ROBINA RON Exam Date: 02/06/2022 : 1950 Gender:F Ordering : EDD WADE Admission #: [id number] Family : Order #: [id number] CLICK HERE TO VIEW EXAM ECHOCARDIOGRAM REPORT [...] Area(A4C): 21.60 cm2 Left Atrium Systolic Volume(A2C): 38088 mm3 Left Atrium Systolic Volume(A4C): 44518 mm3 Mitral Valve Right Ventricle Aorta AO [...] #### [facility] [address] [place] [address] Dr. Julisa Lowe Basophils/100 WBC (Bld) 0.3 % Normal 0.2-2.0 [facility] Comment on above: Performed By: #### A 1C #### [facility] [address] [place] [address] Dr. Julisa Lowe EO # 0.1 103/ul Normal 0.0-0.7 [facility] Comment on above: Performed By: #### A 1C #### [facility] [address] [place] [address] Dr. Julisa Lowe Eosinophils/100 WBC (Bld) 1.0 % Normal 0.9-7.0 [facility] Comment on above: Performed By: #### A 1C #### [facility] [address] [place] [address] Dr. Julisa Lowe Erythrocyte distribution width (RBC) [Ratio] 18.6 % Critically high 11.0-15.0 [facility] Comment on above: Performed By: #### A 1C #### [facility] [address] [place] [address] Dr. Julisa Lowe Hematocrit (Bld) [Volume fraction] 29.6 % Critically low 36.0-48.0 [facility] Comment on above: Performed By: #### A 1C #### [facility] [address] [place] [address] Dr. Julisa Lowe Hemoglobin (Bld) [Mass/Vol] 8.5 g/dL Critically low 12.0-16.0 [facility] Comment on above: Performed By: #### A 1C #### [facility] [address] [place] [address] Dr. Julisa Lowe IG # 0.09 10e3/ul Critically high 0.00-0.[address] [facility] Comment on above: Performed By: #### A 1C #### [facility] [address] [place] [address] Dr. Julisa Lowe IG % 0.7 % Critically high 0.0-0.5 [facility] Comment on above: Performed By: #### A 1C #### [facility] [address] [place] [address] Dr. Julisa Lowe LYMPH # 3.2 103/ul Normal 1.2-3.8 [facility] Comment on above: Performed By: #### A 1C #### [facility] [address] [place] [address] Dr. Julisa Lowe Lymphocytes/100 WBC (Bld) 25.5 % Normal 20.5-60.0 [facility] Comment on above: Performed By: #### A 1C #### [facility] [address] [place] [address] Dr. Julisa Lowe MANUAL DIFF REQ NO Normal [facility] Comment on above: Performed By: #### A 1C #### [facility] [address] [place] [address] Dr. Julisa Lowe MCH (RBC) [Entitic mass] 20.2 pg Critically low 26.7-34.0 [facility] Comment on above: Performed By: #### A 1C #### [facility] [address] [place] [address] Dr. Julisa Lowe MCHC (RBC) [Mass/Vol] 28.7 g/dL Critically low 29.9-35.2 [facility] Comment on above: Performed By: #### A 1C #### [facility] [address] [place] [address] Dr. Julisa Lowe MCV (RBC) [Entitic vol] 70.5 fL Critically low 81.0-99.0 [facility] Comment on above: Performed By: #### A 1C #### [facility] [address] [place] [address] Dr. Julisa Lowe MONO # 0.6 103/ul Normal 0.3-0.8 [facility] Comment on above: Performed By: #### A 1C #### [facility] [address] [place] [address] Dr. Julisa Lowe Monocytes/100 WBC (Bld) 4.8 % Normal 1.7-12.0 [facility] Comment on above: Performed By: #### A 1C #### [facility] [address] [place] [address] Dr. Julisa Lowe NEUT # 8.4 103/ul Critically high 1.4-6.5 [facility] Comment on above: Performed By: #### A 1C #### [facility] [address] [place] [address] Dr. Julisa Lowe Neutrophils/100 WBC (Bld) 67.7 % Normal 43.0-75.0 [facility] Comment on above: Performed By: #### A 1C #### [facility] [address] [place] [address] Dr. Julisa Lowe Platelet mean volume (Bld) [Entitic vol] 7.9 fL Critically low 9.5-13.5 [facility] Comment on above: Performed By: #### A 1C #### [facility] [address] [place] [address] Dr. Julisa Lowe PLT 252 103/ul Normal 150-450 [facility] Comment on above: Performed By: #### A 1C #### [facility] [address] [place] [address] Dr. Julisa Lowe RBC 4.20 106/ul Normal 4.20-5.40 [facility] Comment on above: Performed By: #### A 1C #### [facility] [address] [place] [address] Dr. Julisa Lowe WBC 12.4 103/ul Critically high 4.0-11.0 [facility] Comment on above: Performed By: #### A 1C #### [facility] [address] [place] [address] Dr. Julisa Lowe FERRITINon 01-23-2022 Ferritin [Mass/Vol] 7.0 ng/mL Critically low 8.0-252.0 [facility] Comment on above: Performed By: #### P OCGLUC #### [facility] [address] [place] [address] Dr. Julisa Lowe GLYCOHEMOGLOBIN A1Con 2021 ADA RECOMMENDATION SEE BELOW Normal [facility] Comment on above: Result Comment: ADA RECOMMENDED LIMIT 4.0 - 6.0 ADA THERAPEUTIC TARGET < 7.0 ACTION SUGGESTED > 7.0 Performed By: #### A 1C #### [facility] [address] [place] [address] Dr. Julisa Lowe Glucose [Mass/Vol] 197 mg/dL Normal [facility] Comment on above: Performed By: #### A 1C #### [facility] [address] [place] [address] Dr. Julisa Lowe HbA1c (Bld) [Mass fraction] 8.5 % Critically high 4.5-6.2 [facility] Comment on above: Performed By: #### A 1C #### [facility] [address] [place] [address] Dr. Julisa Lowe TSHon 01-23-2022 TSH 0.501 uIU/mL Normal 0.358-3.740 [facility] Comment on above: Performed By: #### A 1C #### [facility] [address] [place] [address] Dr. Julisa Lowe TSH RANGE SEE BELOW Normal [facility] Comment on above: Result Comment: <0.3 4 UIU/ml HYPERTHYROID 0.34-5.60 UIU/ml EUTHYROID >5.60 UIU/ml HYPOTHYROID Performed By: #### A 1C #### [facility] [address] [place] [address] Dr. Julisa Lowe VIT B12 AND FOLATEon 022 Cobalamin (Vitamin B12) [Mass/Vol] 193.0 pg/mL Normal 193.0-986.0 [facility] Comment on above: Performed By: #### P OCGLUC #### [facility] [address] [place] [address] Dr. Julisa Lowe FOLATE 12.90 ng/mL Normal 8.60-58.90 [facility] Comment on above: Performed By: #### P OCGLUC #### [facility] [address] [place] [address] Dr. Julisa Lowe CULTURE URINEon 12-23-2021 CULTURE [...] F Trimethoprim/Sulfamet hoxazole >=320 R F Normal [facility] Comment on above: Performed By: #### H STROPN #### [facility] [address] [address] [address] Julisa Lowe NM STRESS/REST MULTIon 12-22 NM STRESS/REST MULTI Patient: ROBINA RON Exam Date: 12/22/2021 : 1950 Gender:F Ordering : EDD WOODYANGELICKEERTHI Admission #: [id number] Family : DR CATHERINE SANCHEZ . Order #: [id number] CLICK HERE TO VIEW EXAM RADIOLOGY REPORT [...] 12-21-2021 BASO # 0.0 103/ul Normal 0.0-0.1 [facility] Comment on above: Performed By: #### A 1C #### [facility] [address] [address] [address] Julisa Lowe Basophils/100 WBC (Bld) 0.4 % Normal 0.2-2.0 [facility] Comment on above: Performed By: #### A 1C #### [facility] [address] [address] [address] Julisa Lowe EO # 0.1 103/ul Normal 0.0-0.7 [facility] Comment on above: Performed By: #### A 1C #### [facility] [address] [address] [address] Julisa Lowe Eosinophils/100 WBC (Bld) 1.3 % Normal 0.9-7.0 [facility] Comment on above: Performed By: #### A 1C #### [facility] [address] [place] [address] Dr. Julisa Lowe Erythrocyte distribution width (RBC) [Ratio] 19.7 % Critically high 11.0-15.0 [facility] Comment on above: Performed By: #### A 1C #### [facility] [address] [place] [address] Dr. Julisa Lowe Hematocrit (Bld) [Volume fraction] 31.6 % Critically low 36.0-48.0 [facility] Comment on above: Performed By: #### A 1C #### [facility] [address] [place] [address] Dr. Julisa Lowe Hemoglobin (Bld) [Mass/Vol] 9.2 g/dL Critically low 12.0-16.0 [facility] Comment on above: Performed By: #### A 1C #### [facility] [address] [address] [address] Julisa Lowe IG # 0.07 10e3/ul Critically high 0.00-0.[address] [facility] Comment on above: Performed By: #### A 1C #### [facility] [address] [place] [address] Dr. Julisa Lowe IG % 0.7 % Critically high 0.0-0.5 [facility] Comment on above: Performed By: #### A 1C #### [facility] [address] [place] [address] Dr. Julisa Lowe LYMPH # 3.2 103/ul Normal 1.2-3.8 [facility] Comment on above: Performed By: #### A 1C #### [facility] [address] [place] [address] Dr. Julisa Lowe Lymphocytes/100 WBC (Bld) 30.8 % Normal 20.5-60.0 [facility] Comment on above: Performed By: #### A 1C #### [facility] [address] [place] [address] Dr. Julisa Lowe MANUAL DIFF REQ NO Normal [facility] Comment on above: Performed By: #### A 1C #### [facility] [address] [place] [address] Dr. Julisa Lowe MCH (RBC) [Entitic mass] 20.4 pg Critically low 26.7-34.0 [facility] Comment on above: Performed By: #### A 1C #### [facility] [address] [place] [address] Dr. Julisa Lowe MCHC (RBC) [Mass/Vol] 29.1 g/dL Critically low 29.9-35.2 [facility] Comment on above: Performed By: #### A 1C #### [facility] [address] [place] [address] Dr. Julisa Lowe MCV (RBC) [Entitic vol] 69.9 fL Critically low 81.0-99.0 [facility] Comment on above: Performed By: #### A 1C #### [facility] [address] [place] [address] Dr. Julisa Lowe MONO # 0.8 103/ul Normal 0.3-0.8 [facility] Comment on above: Performed By: #### A 1C #### [facility] [address] [place] [address] Dr. Julisa Lowe Monocytes/100 WBC (Bld) 7.3 % Normal 1.7-12.0 [facility] Comment on above: Performed By: #### A 1C #### [facility] [address] [place] [address] Dr. Julisa Lowe NEUT # 6.2 103/ul Normal 1.4-6.5 [facility] Comment on above: Performed By: #### A 1C #### [facility] [address] [place] [address] Dr. Julisa Lowe Neutrophils/100 WBC (Bld) 59.5 % Normal 43.0-75.0 [facility] Comment on above: Performed By: #### A 1C #### [facility] [address] [place] [address] Dr. Julisa Lowe Platelet mean volume (Bld) [Entitic vol] 8.4 fL Critically low 9.5-13.5 [facility] Comment on above: Performed By: #### A 1C #### [facility] [address] [place] [address] Dr. Julisa Lowe PLT 301 103/ul Normal 150-450 [facility] Comment on above: Performed By: #### A 1C #### [facility] [address] [place] [address] Dr. Julisa Lowe RBC 4.52 106/ul Normal 4.20-5.40 [facility] Comment on above: Performed By: #### A 1C #### [facility] [address] [place] [address] Dr. Julisa Lowe WBC 10.4 103/ul Normal 4.0-11.0 [facility] Comment on above: Performed By: #### A 1C #### [facility] [address] [place] [address] Dr. Julisa Lowe POINT OF CARE GLUCOSEon 12-12 0-2021 Glucose [Mass/Vol] 183 mg/dL Critically high 74-106 [facility] Comment on above: Performed By: #### P OCGLUC #### [facility] [address] [place] [address] Dr. Julisa Lowe Glucose [Mass/Vol] 351 mg/dL Critically high 74-106 [facility] Comment on above: Performed By: #### H STROPN #### [facility] [address] [address] [address] Julisa Lowe PROF CHEM 8 (BAS METB)on Anion gap [Moles/Vol] 14.6 mmol/L Normal [facility] Comment on above: Performed By: #### S EDR #### [facility] [address] [address] [address] Julisa Lowe Calcium [Mass/Vol] 8.6 mg/dL Normal 8.5-10.1 [facility] Comment on above: Performed By: #### S EDR #### [facility] [address] [address] [address] Julisa Lowe Chloride [Moles/Vol] 107 mmol/L Normal 98-107 [facility] Comment on above: Performed By: #### S EDR #### [facility] [address] [place] [address] Dr. Julisa Lowe CO2 [Moles/Vol] 24.6 mmol/L Normal 22.0-30.0 [facility] Comment on above: Performed By: #### S EDR #### [facility] [address] [place] [address] Dr. Julisa Lowe Creatinine [Mass/Vol] 0.57 mg/dL Normal 0.52-1.04 [facility] Comment on above: Performed By: #### S EDR #### [facility] [address] [place] [address] Dr. Julisa Lowe EGFR-AF SPANISH >60 Normal >=60 [facility] Comment on above: Performed By: #### S EDR #### [facility] [address] [place] [address] Dr. Julisa Lowe EGFR-NON AF SPANISH >60 Normal >=60 [facility] Comment on above: Performed By: #### S EDR #### [facility] [address] [place] [address] Dr. Julisa Lowe Glucose [Mass/Vol] 189 mg/dL Critically high 74-106 [facility] Comment on above: Performed By: #### S EDR #### [facility] [address] [address] [address] Julisa Lowe Potassium [Moles/Vol] 4.2 mmol/L Normal 3.4-5.0 [facility] Comment on above: Performed By: #### S EDR #### [facility] [address] [address] [address] Julisa Lowe Sodium [Moles/Vol] 142 mmol/L Normal 137-145 [facility] Comment on above: Performed By: #### S EDR #### [facility] [address] [address] [address] Julisa Lowe Urea nitrogen [Mass/Vol] 16.0 mg/dL Normal 7.0-18.0 [facility] Comment on above: Performed By: #### S EDR #### [facility] [address] [address] [address] Julisa Lowe Urea nitrogen/Creatinine [Mass ratio] 28.1 mg/mg Normal [facility] Comment on above: Performed By: #### S EDR #### [facility] [address] [address] [address] Julisa Lowe BNPon 12-20-2021 Natriuretic peptide B (Bld) [Mass/Vol] 880.0 pg/mL Normal <=900.0 [facility] Comment on above: Performed By: #### H STROPN #### [facility] [address] [place] [address] Dr. Julisa Lowe CARDIAC TRUONG ADMITon 022 CK <20 Critically low 30-135 [facility] Comment on above: Performed By: #### H STROPN #### [facility] [address] [place] [address] Dr. Julisa Lowe CK.MB [Mass/Vol] ng/mL Normal <=2.37 [facility] Comment on above: Performed By: #### H STROPN #### [facility] [address] [place] [address] Dr. Julisa Lowe HSTROP 15.1 pg/mL Normal 4.0-35.5 [facility] Comment on above: Result Comment: CUT- OFF POINTS HAVE BEEN ESTABLISHED BASED ON THE FOURTH UNIVERSAL DEFINITIONS OF MYOCARDIAL INFARCTION. THE UPPER REFERENCE LIMIT (URL) OF TROPONIN, DEFINED THE 99TH PERCENTILE OF cTnI DISTRIBUTION IN A REFERENCE POPULATION, HAS BEEN CONFIRMED THE DECISION THRESHOLD FOR VA DIAGNOSIS. Performed By: #### H STROPN #### [facility] [address] [place] [address] Dr. Julisa Lowe RAJ 24.0 ng/mL Normal <=61.5 [facility] Comment on above: Performed By: #### H STROPN #### [facility] [address] [place] [address] Dr. Julisa Lowe CBC AUTO DIFFon 12-20-2021 BASO # 0.1 103/ul Normal 0.0-0.1 [facility] Comment on above: Performed By: #### S EDR #### [facility] [address] [place] [address] Dr. Julisa Lowe Basophils/100 WBC (Bld) 0.5 % Normal 0.2-2.0 [facility] Comment on above: Performed By: #### S EDR #### [facility] [address] [place] [address] Dr. Julisa Lowe EO # 0.1 103/ul Normal 0.0-0.7 [facility] Comment on above: Performed By: #### S EDR #### [facility] [address] [place] [address] Dr. Julisa Lowe Eosinophils/100 WBC (Bld) 1.0 % Normal 0.9-7.0 [facility] Comment on above: Performed By: #### S EDR #### [facility] [address] [place] [address] Dr. Julisa Lowe Erythrocyte distribution width (RBC) [Ratio] 19.8 % Critically high 11.0-15.0 [facility] Comment on above: Result Comment: slig ht poikilocytosis, moderate anisocytosis, Performed By: #### S EDR #### [facility] [address] [place] [address] Dr. Julisa Lowe Hematocrit (Bld) [Volume fraction] 32.7 % Critically low 36.0-48.0 [facility] Comment on above: Performed By: #### S EDR #### [facility] [address] [place] [address] Dr. Julisa Lowe Hemoglobin (Bld) [Mass/Vol] 9.6 g/dL Critically low 12.0-16.0 [facility] Comment on above: Performed By: #### S EDR #### [facility] [address] [place] [address] Dr. Julisa Lowe IG # 0.07 10e3/ul Critically high 0.00-0.[address] [facility] Comment on above: Performed By: #### S EDR #### [facility] [address] [place] [address] Dr. Julisa Lowe IG % 0.7 % Critically high 0.0-0.5 [facility] Comment on above: Performed By: #### S EDR #### [facility] [address] [place] [address] Dr. Julisa Lowe LYMPH # 3.1 103/ul Normal 1.2-3.8 [facility] Comment on above: Performed By: #### S EDR #### [facility] [address] [place] [address] Dr. Julisa Lowe Lymphocytes/100 WBC (Bld) 29.7 % Normal 20.5-60.0 [facility] Comment on above: Performed By: #### S EDR #### [facility] [address] [place] [address] Dr. Julisa Lowe MANUAL DIFF REQ NO Normal [facility] Comment on above: Performed By: #### S EDR #### [facility] [address] [place] [address] Dr. Julisa Lowe MCH (RBC) [Entitic mass] 20.5 pg Critically low 26.7-34.0 [facility] Comment on above: Performed By: #### S EDR #### [facility] [address] [place] [address] Dr. Julisa Lowe MCHC (RBC) [Mass/Vol] 29.4 g/dL Critically low 29.9-35.2 [facility] Comment on above: Performed By: #### S EDR #### [facility] [address] [address] [address] Julisa Lowe MCV (RBC) [Entitic vol] 69.9 fL Critically low 81.0-99.0 [facility] Comment on above: Result Comment: few ovalocytes, moderate hypochromasia Performed By: #### S EDR #### [facility] [address] [address] [address] Julisa Lowe MONO # 0.6 103/ul Normal 0.3-0.8 [facility] Comment on above: Performed By: #### S EDR #### [facility] [address] [place] [address] Dr. Julisa Lowe Monocytes/100 WBC (Bld) 5.6 % Normal 1.7-12.0 [facility] Comment on above: Performed By: #### S EDR #### [facility] [address] [place] [address] Dr. Julisa Lowe NEUT # 6.5 103/ul Normal 1.4-6.5 [facility] Comment on above: Performed By: #### S EDR #### [facility] [address] [place] [address] Dr. Julisa Lowe Neutrophils/100 WBC (Bld) 62.5 % Normal 43.0-75.0 [facility] Comment on above: Performed By: #### S EDR #### [facility] [address] [place] [address] Dr. Julisa Lowe Platelet mean volume (Bld) [Entitic vol] 8.8 fL Critically low 9.5-13.5 [facility] Comment on above: Performed By: #### S EDR #### [facility] [address] [place] [address] Dr. Julisa Lowe PLT 280 103/ul Normal 150-450 [facility] Comment on above: Performed By: #### S EDR #### [facility] [address] [place] [address] Dr. Julisa Lowe RBC 4.68 106/ul Normal 4.20-5.40 [facility] Comment on above: Performed By: #### S EDR #### [facility] [address] [place] [address] Dr. Julisa Lowe WBC 10.5 103/ul Normal 4.0-11.0 [facility] Comment on above: Performed By: #### S EDR #### [facility] [address] [place] [address] Dr. Julisa Lowe Covid-19 PCR ([facility])on SARS-CoV-2 (COVID-19) RNA CHALINO+probe Ql (Unsp spec) [...] for this test is supported by the [place] of Health and Human Service's declaration that [...] #### [facility] [address] [place] [address] Dr. Julisa Lowe ER URINE PROFILEon 2 Bilirubin Ql (U) Negative Normal NEGATIVE [facility] Comment on above: Performed By: #### S EDR #### [facility] [address] [place] [address] Dr. Julisa Lowe Clarity (U) SL CLOUDY Abnormal CLEAR [facility] Comment on above: Performed By: #### S EDR #### [facility] [address] [place] [address] Dr. Julisa Lowe Color (U) LT. YELLOW Normal YELLOW [facility] Comment on above: Performed By: #### S EDR #### [facility] [address] [place] [address] Dr. Julisa DAY A micrscopic examination will be performed if indicated. Normal [facility] Comment on above: Performed By: #### S EDR #### [facility] [address] [place] [address] Dr. Julisa Lowe Glucose Ql (U) Negative Normal NEGATIVE [facility] Comment on above: Performed By: #### S EDR #### [facility] [address] [place] [address] Dr. Julisa Lowe Hemoglobin Ql (U) Negative Normal NEGATIVE [facility] Comment on above: Performed By: #### S EDR #### [facility] [address] [place] [address] Dr. Julisa Lowe Ketones Ql (U) Negative Normal NEGATIVE [facility] Comment on above: Performed By: #### S EDR #### [facility] [address] [place] [address] Dr. Julisa Lowe LEUKOCYTES TRACE Abnormal NEGATIVE [facility] Comment on above: Performed By: #### S EDR #### [facility] [address] [place] [address] Dr. Julisa Lowe Nitrite Ql (U) Negative Normal NEGATIVE [facility] Comment on above: Performed By: #### S EDR #### [facility] [address] [place] [address] Dr. Julisa Lowe pH (U) 7.5 [pH] Normal 5-9 [facility] Comment on above: Performed By: #### S EDR #### [facility] [address] [place] [address] Dr. Julisa Lowe Protein (U) [Mass/Vol] 100 mg/dL Abnormal NEGAT CRISTOPHER/ TRACE [facility] Comment on above: Performed By: #### S EDR #### [facility] [address] [place] [address] Dr. Julisa Lowe SPEC GRAVITY 1.020 Normal 1.005-<=1.025 [facility] Comment on above: Performed By: #### S EDR #### [facility] [address] [place] [address] Dr. Julisa Lowe UR MICRO IND INDICATED Normal [facility] Comment on above: Performed By: #### S EDR #### [facility] [address] [place] [address] Dr. Julisa Lowe Urobilinogen Qn (U) 0.2 {Shirley'U}/dL Normal 0.2 - 1. 0 [facility] Comment on above: Performed By: #### S EDR #### [facility] [address] [place] [address] Dr. Julisa Lowe POINT OF CARE GLUCOSEon 04-0 Glucose [Mass/Vol] 145 mg/dL Critically high 74-106 [facility] Comment on above: Performed By: #### S EDR #### [facility] [address] [place] [address] Dr. Julisa Lowe PROF 14(COMP METB)on 022 Albumin [Mass/Vol] 3.0 g/dL Critically low 3.4-5.0 [facility] Comment on above: Performed By: #### H STROPN #### [facility] [address] [place] [address] Dr. Julisa Lowe Albumin/Globulin [Mass ratio] 1.0 {ratio} Normal [facility] Comment on above: Performed By: #### H STROPN #### [facility] [address] [place] [address] Dr. Julisa Lowe ALP [Catalytic activity/Vol] 110 U/L Normal 46-116 [facility] Comment on above: Performed By: #### H STROPN #### [facility] [address] [place] [address] Dr. Julisa Lowe ALT [Catalytic activity/Vol] 18 U/L Normal 14-59 [facility] Comment on above: Performed By: #### H STROPN #### [facility] [address] [address] [address] Julisa Lowe Anion gap [Moles/Vol] 13.4 mmol/L Normal [facility] Comment on above: Performed By: #### H STROPN #### [facility] [address] [address] [address] Julisa Lowe AST [Catalytic activity/Vol] 8 U/L Critically low 15-37 [facility] Comment on above: Performed By: #### H STROPN #### [facility] [address] [place] [address] Dr. Julisa Lowe Bilirubin [Mass/Vol] 0.3 mg/dL Normal 0.2-1.3 [facility] Comment on above: Performed By: #### H STROPN #### [facility] [address] [place] [address] Dr. Julisa Lowe Calcium [Mass/Vol] 8.5 mg/dL Normal 8.5-10.1 [facility] Comment on above: Performed By: #### H STROPN #### [facility] [address] [place] [address] Dr. Julisa Lowe Chloride [Moles/Vol] 106 mmol/L Normal 98-107 [facility] Comment on above: Performed By: #### H STROPN #### [facility] [address] [place] [address] Dr. Julisa Lowe CO2 [Moles/Vol] 26.3 mmol/L Normal 22.0-30.0 [facility] Comment on above: Performed By: #### H STROPN #### [facility] [address] [place] [address] Dr. Julisa Lowe Creatinine [Mass/Vol] 0.52 mg/dL Normal 0.52-1.04 [facility] Comment on above: Performed By: #### H STROPN #### [facility] [address] [place] [address] Dr. Julisa Lowe EGFR-AF SPANISH >60 Normal >=60 [facility] Comment on above: Performed By: #### H STROPN #### [facility] [address] [place] [address] Dr. Julisa Lowe EGFR-NON AF SPANISH >60 Normal >=60 [facility] Comment on above: Performed By: #### H STROPN #### [facility] [address] [place] [address] Dr. Julisa Lowe Globulin (S) [Mass/Vol] 3.0 g/dL Normal [facility] Comment on above: Performed By: #### H STROPN #### [facility] [address] [address] [address] Julisa Lowe Glucose [Mass/Vol] 147 mg/dL Critically high 74-106 [facility] Comment on above: Performed By: #### H STROPN #### [facility] [address] [place] [address] Dr. Julisa Lowe Potassium [Moles/Vol] 3.7 mmol/L Normal 3.4-5.0 [facility] Comment on above: Performed By: #### H STROPN #### [facility] [address] [place] [address] Dr. Julisa Lowe Protein [Mass/Vol] 6.0 g/dL Critically low 6.1-8.2 [facility] Comment on above: Performed By: #### H STROPN #### [facility] [address] [place] [address] Dr. Julisa Lowe Sodium [Moles/Vol] 142 mmol/L Normal 137-145 [facility] Comment on above: Performed By: #### H STROPN #### [facility] [address] [place] [address] Dr. Julisa Lowe Urea nitrogen [Mass/Vol] 13.0 mg/dL Normal 7.0-18.0 [facility] Comment on above: Performed By: #### H STROPN #### [facility] [address] [place] [address] Dr. Julisa Lowe Urea nitrogen/Creatinine [Mass ratio] 25.0 mg/mg Normal [facility] Comment on above: Performed By: #### H STROPN #### [facility] [address] [place] [address] Dr. Julisa Lowe PROTIMEon 12-20-2021 INR Coag (PPP) [Relative time] 0.94 {INR} Normal [facility] Comment on above: Performed By: #### S EDR #### [facility] [address] [place] [address] Dr. Julisa Lowe INR GUIDELINES SEE BELOW Normal [facility] Comment on above: Result Comment: NHI RED INR: 2.0 - 3.0 CONDITIONS NOT LISTED BELOW 2.5 - 3.5 FOR PROSTHETIC HEART VALVE REPLACEMENT 2.5 - 3.5 RECURRENT THROMBOSIS Performed By: #### S EDR #### [facility] [address] [address] [address] Julisa Lowe PT Coag (PPP) [Time] 10.2 s Normal 9.0-11.6 [facility] Comment on above: Performed By: #### S EDR #### [facility] [address] [place] [address] Dr. Julisa Lowe PTTon 12-20-2021 aPTT Coag (Bld) [Time] 21.7 s Critically low 22.3-36.2 [facility] Comment on above: Performed By: #### S EDR #### [facility] [address] [place] [address] Dr. Julisa Lowe TROPONIN, HIGH SENSITIVITYon 12-20-2021 HSTROP 16.3 pg/mL Normal 4.0-35.5 [facility] Comment on above: Result Comment: CUT- OFF POINTS HAVE BEEN ESTABLISHED BASED ON THE FOURTH UNIVERSAL DEFINITIONS OF MYOCARDIAL INFARCTION. THE UPPER REFERENCE LIMIT (URL) OF TROPONIN, DEFINED THE 99TH PERCENTILE OF cTnI DISTRIBUTION IN A REFERENCE POPULATION, HAS BEEN CONFIRMED THE DECISION THRESHOLD FOR VA DIAGNOSIS. Performed By: #### P OCGLUC #### [facility] [address] [place] [address] Dr. Julisa Lowe HSTROP 16.8 pg/mL Normal 4.0-35.5 [facility] Comment on above: Result Comment: CUT- OFF POINTS HAVE BEEN ESTABLISHED BASED ON THE FOURTH UNIVERSAL DEFINITIONS OF MYOCARDIAL INFARCTION. THE UPPER REFERENCE LIMIT (URL) OF TROPONIN, DEFINED THE 99TH PERCENTILE OF cTnI DISTRIBUTION IN A REFERENCE POPULATION, HAS BEEN CONFIRMED THE DECISION THRESHOLD FOR VA DIAGNOSIS. Performed By: #### H STROPN #### [facility] [address] [place] [address] Dr. Julisa Lowe URINE MICROSCOPIC ONLYon BACTERIA LARGE Abnormal NONE SEEN [facility] Comment on above: Performed By: #### S EDR #### [facility] [address] [place] [address] Dr. Julisa Lowe Bacteria identified Cx Nom (U) INDICATED Normal [facility] Comment on above: Performed By: #### S EDR #### [facility] [address] [place] [address] Dr. Julisa Lowe CAST NONE SEEN Normal NONE SEEN [facility] Comment on above: Performed By: #### S EDR #### [facility] [address] [place] [address] Dr. Julisa Lowe Crystals LM Nom (Urine sed) NONE SEEN Normal NONE SEEN [facility] Comment on above: Performed By: #### S EDR #### [facility] [address] [place] [address] Dr. Julisa Lowe Epithelial cells LM Ql (Urine sed) FEW Abnormal NONE SEEN /RARE [facility] Comment on above: Performed By: #### S EDR #### [facility] [address] [place] [address] Dr. Julisa Lowe MUCOUS NONE SEEN Normal NONE SEEN [facility] Comment on above: Performed By: #### S EDR #### [facility] [address] [place] [address] Dr. Julisa Lowe RBC 0-2 Normal 0-2 [facility] Comment on above: Performed By: #### S EDR #### [facility] [address] [place] [address] Dr. Julisa Lowe WBC 10-20 Abnormal NONE SEEN [facility] Comment on above: Performed By: #### S EDR #### [facility] [address] [place] [address] Dr. Julisa Lowe XR CHEST 1 Von [...] #### [facility] [address] [place] [address] Dr. Julisa Lowe CBC AUTO DIFFon 12-15-2021 BASO # 0.0 103/ul Normal 0.0-0.1 [facility] Comment on above: Performed By: #### A 1C #### [facility] [address] [place] [address] Dr. Julisa Lowe Basophils/100 WBC (Bld) 0.3 % Normal 0.2-2.0 [facility] Comment on above: Performed By: #### A 1C #### [facility] [address] [place] [address] Dr. Julisa Lowe EO # 0.1 103/ul Normal 0.0-0.7 [facility] Comment on above: Performed By: #### A 1C #### [facility] [address] [place] [address] Dr. Julisa Lowe Eosinophils/100 WBC (Bld) 0.9 % Normal 0.9-7.0 [facility] Comment on above: Performed By: #### A 1C #### [facility] [address] [place] [address] Dr. Julisa Lowe Erythrocyte distribution width (RBC) [Ratio] 19.6 % Critically high 11.0-15.0 [facility] Comment on above: Performed By: #### A 1C #### [facility] [address] [place] [address] Dr. Julisa Lowe Hematocrit (Bld) [Volume fraction] 33.8 % Critically low 36.0-48.0 [facility] Comment on above: Performed By: #### A 1C #### [facility] [address] [place] [address] Dr. Julisa Lowe Hemoglobin (Bld) [Mass/Vol] 9.7 g/dL Critically low 12.0-16.0 [facility] Comment on above: Performed By: #### A 1C #### [facility] [address] [place] [address] Dr. Julisa Lowe IG # 0.13 10e3/ul Critically high 0.00-0.[address] [facility] Comment on above: Performed By: #### A 1C #### [facility] [address] [place] [address] Dr. Julisa Lowe IG % 0.9 % Critically high 0.0-0.5 [facility] Comment on above: Performed By: #### A 1C #### [facility] [address] [place] [address] Dr. Julisa Lowe LYMPH # 3.5 103/ul Normal 1.2-3.8 [facility] Comment on above: Performed By: #### A 1C #### [facility] [address] [place] [address] Dr. Julisa Lowe Lymphocytes/100 WBC (Bld) 25.4 % Normal 20.5-60.0 [facility] Comment on above: Performed By: #### A 1C #### [facility] [address] [place] [address] Dr. Julisa Lowe MANUAL DIFF REQ NO Normal [facility] Comment on above: Performed By: #### A 1C #### [facility] [address] [place] [address] Dr. Julisa Lowe MCH (RBC) [Entitic mass] 20.4 pg Critically low 26.7-34.0 [facility] Comment on above: Performed By: #### A 1C #### [facility] [address] [address] [address] Julisa Lowe MCHC (RBC) [Mass/Vol] 28.7 g/dL Critically low 29.9-35.2 [facility] Comment on above: Performed By: #### A 1C #### [facility] [address] [address] [address] Julisa Lowe MCV (RBC) [Entitic vol] 71.2 fL Critically low 81.0-99.0 [facility] Comment on above: Performed By: #### A 1C #### [facility] [address] [address] [address] Julisa Lowe MONO # 0.7 103/ul Normal 0.3-0.8 [facility] Comment on above: Performed By: #### A 1C #### [facility] [address] [place] [address] Dr. Julisa Lowe Monocytes/100 WBC (Bld) 5.0 % Normal 1.7-12.0 [facility] Comment on above: Performed By: #### A 1C #### [facility] [address] [address] [address] Julisa Lowe NEUT # 9.3 103/ul Critically high 1.4-6.5 [facility] Comment on above: Performed By: #### A 1C #### [facility] [address] [place] [address] Dr. Julisa Lowe Neutrophils/100 WBC (Bld) 67.5 % Normal 43.0-75.0 [facility] Comment on above: Performed By: #### A 1C #### [facility] [address] [address] [address] Julisa Lowe Platelet mean volume (Bld) [Entitic vol] 8.2 fL Critically low 9.5-13.5 [facility] Comment on above: Performed By: #### A 1C #### [facility] [address] [address] [address] Julisa Lowe PLT 301 103/ul Normal 150-450 [facility] Comment on above: Performed By: #### A 1C #### [facility] [address] [place] [address] Dr. Julisa Lowe RBC 4.75 106/ul Normal 4.20-5.40 [facility] Comment on above: Result Comment: HYPO CHROMIA 3+ Performed By: #### A 1C #### [facility] [address] [place] [address] Dr. Julisa Lowe WBC 13.8 103/ul Critically high 4.0-11.0 [facility] Comment on above: Performed By: #### A 1C #### [facility] [address] [place] [address] Dr. Julisa Lowe CRPon 12-15-2021 CRP [Mass/Vol] mg/L Normal <=1.0 [facility] Comment on above: Performed By: #### C MP, CRP, TSH #### [facility] [address] [place] [address] Dr. Julisa Lowe FREE T4on 12-15-2021 Free T4 [Mass/Vol] 1.04 ng/dL Normal 0.78-2.19 [facility] Comment on above: Performed By: #### S EDR #### [facility] [address] [place] [address] Dr. Julisa Lowe PROF 14(COMP METB)on 022 Albumin [Mass/Vol] 3.4 g/dL Normal 3.4-5.0 [facility] Comment on above: Performed By: #### C MP, CRP, TSH #### [facility] [address] [place] [address] Dr. Julisa Lowe Albumin/Globulin [Mass ratio] 1.1 {ratio} Normal [facility] Comment on above: Performed By: #### C MP, CRP, TSH #### [facility] [address] [place] [address] Dr. Julisa Lowe ALP [Catalytic activity/Vol] 120 U/L Critically high 46-116 [facility] Comment on above: Performed By: #### C MP, CRP, TSH #### [facility] [address] [place] [address] Dr. Julisa Lowe ALT [Catalytic activity/Vol] 28 U/L Normal 14-59 [facility] Comment on above: Performed By: #### C MP, CRP, TSH #### [facility] [address] [place] [address] Dr. Julisa Lowe Anion gap [Moles/Vol] 12.7 mmol/L Normal [facility] Comment on above: Performed By: #### C MP, CRP, TSH #### [facility] [address] [place] [address] Dr. Julisa Lowe AST [Catalytic activity/Vol] 13 U/L Critically low 15-37 [facility] Comment on above: Performed By: #### C MP, CRP, TSH #### [facility] [address] [place] [address] Dr. Julisa Lowe Bilirubin [Mass/Vol] 0.3 mg/dL Normal 0.2-1.3 [facility] Comment on above: Performed By: #### C MP, CRP, TSH #### [facility] [address] [place] [address] Dr. Julisa Lowe Calcium [Mass/Vol] 8.4 mg/dL Critically low 8.5-10.1 [facility] Comment on above: Performed By: #### C MP, CRP, TSH #### [facility] [address] [place] [address] Dr. Julisa Lowe Chloride [Moles/Vol] 106 mmol/L Normal 98-107 [facility] Comment on above: Performed By: #### C MP, CRP, TSH #### [facility] [address] [place] [address] Dr. Julisa Lowe CO2 [Moles/Vol] 25.8 mmol/L Normal 22.0-30.0 [facility] Comment on above: Performed By: #### C MP, CRP, TSH #### [facility] [address] [place] [address] Dr. Julisa Lowe Creatinine [Mass/Vol] 0.68 mg/dL Normal 0.52-1.04 [facility] Comment on above: Performed By: #### C MP, CRP, TSH #### [facility] [address] [address] [address] Julisa Lowe EGFR-AF SPANISH >60 Normal >=60 [facility] Comment on above: Performed By: #### C MP, CRP, TSH #### [facility] [address] [address] [address] Julisa Lowe EGFR-NON AF SPANISH >60 Normal >=60 [facility] Comment on above: Performed By: #### C MP, CRP, TSH #### [facility] [address] [address] [address] Julisa Lowe Globulin (S) [Mass/Vol] 3.2 g/dL Normal [facility] Comment on above: Performed By: #### C MP, CRP, TSH #### [facility] [address] [place] [address] Dr. Julisa Lowe Glucose [Mass/Vol] 222 mg/dL Critically high 74-106 T [facility] Comment on above: Performed By: #### C MP, CRP, TSH #### [facility] [address] [place] [address] Dr. Julisa Lowe Potassium [Moles/Vol] 3.5 mmol/L Normal 3.4-5.0 [facility] Comment on above: Performed By: #### C MP, CRP, TSH #### [facility] [address] [place] [address] Dr. Julisa Lowe Protein [Mass/Vol] 6.6 g/dL Normal 6.1-8.2 [facility] Comment on above: Performed By: #### C MP, CRP, TSH #### [facility] [address] [place] [address] Dr. Julisa Lowe Sodium [Moles/Vol] 141 mmol/L Normal 137-145 [facility] Comment on above: Performed By: #### C MP, CRP, TSH #### [facility] [address] [place] [address] Dr. Julisa Lowe Urea nitrogen [Mass/Vol] 14.0 mg/dL Normal 7.0-18.0 [facility] Comment on above: Performed By: #### C MP, CRP, TSH #### [facility] [address] [place] [address] Dr. Julisa Lowe Urea nitrogen/Creatinine [Mass ratio] 20.6 mg/mg Normal [facility] Comment on above: Performed By: #### C MP, CRP, TSH #### [facility] [address] [place] [address] Dr. Julisa Lowe [facility]ATE 10 mm/hr Normal <=30 [facility] Comment on above: Performed By: #### S EDR #### [facility] [address] [place] [address] Dr. Julisa Lowe TSHon 12-15-2021 TSH 0.747 uIU/mL Normal 0.470-4.680 [facility] Comment on above: Performed By: #### C MP, CRP, TSH #### [facility] [address] [place] [address] Dr. Julisa Lowe TSH RANGE SEE BELOW Normal [facility] Comment on above: Result Comment: <0.3 4 UIU/ml HYPERTHYROID 0.34-5.60 UIU/ml EUTHYROID >5.60 UIU/ml HYPOTHYROID Performed By: #### C MP, CRP, TSH #### [facility] [address] [place] [address] Dr. Julisa Lowe ECHOCARDIO M/2D COMPLETEon 0 12-04-2021 ECHOCARDIO M/2D COMPLETE Patient: ROBINA RON Exam Date: 12/04/2021 : 1950 Gender:F Ordering : SHAIKH Chaparrita SPARKS . Admission #: [id number] Family : Order #: [id number] CLICK HERE TO VIEW EXAM ECHOCARDIOGRAM REPORT [...] Area(A4C): 21.50 cm2 Left Atrium Systolic Volume(A2C): 08930 mm3 Left Atrium Systolic Volume(A4C): 44671 mm3 Mitral Valve MV E to A [...] Fuchs M.D. on 12/04/2021 at 18:31 Normal [facility] CBC AUTO DIFFon 09-10-2021 BASO # 0.1 103/ul Normal 0.0-0.1 [facility] Comment on above: Performed By: #### S EDR #### [facility] [address] [address] [address] Julisa Lowe Basophils/100 WBC (Bld) 0.4 % Normal 0.2-2.0 [facility] Comment on above: Performed By: #### S EDR #### [facility] [address] [address] [address] Julisa Lowe EO # 0.2 103/ul Normal 0.0-0.7 [facility] Comment on above: Performed By: #### S EDR #### [facility] [address] [address] [address] Julisa Lowe Eosinophils/100 WBC (Bld) 1.2 % Normal 0.9-7.0 [facility] Comment on above: Performed By: #### S EDR #### [facility] [address] [address] [address] Julisa Lowe Erythrocyte distribution width (RBC) [Ratio] 17.8 % Critically high 11.0-15.0 [facility] Comment on above: Performed By: #### S EDR #### [facility] [address] [place] [address] Dr. Julisa Lowe Hematocrit (Bld) [Volume fraction] 36.6 % Normal 36.0-48.0 [facility] Comment on above: Performed By: #### S EDR #### [facility] [address] [address] [address] Julisa oLwe Hemoglobin (Bld) [Mass/Vol] 10.1 g/dL Critically low 12.0-16.0 [facility] Comment on above: Performed By: #### S EDR #### [facility] [address] [address] [address] Julisa Lowe IG # 0.08 10e3/ul Critically high 0.00-0.[address] [facility] Comment on above: Performed By: #### S EDR #### [facility] [address] [address] [address] Julisa Lowe IG % 0.6 % Critically high 0.0-0.5 [facility] Comment on above: Performed By: #### S EDR #### [facility] [address] [address] [address] Julisa Lowe LYMPH # 3.1 103/ul Normal 1.2-3.8 [facility] Comment on above: Performed By: #### S EDR #### [facility] [address] [address] [address] Julisa Lowe Lymphocytes/100 WBC (Bld) 23.2 % Normal 20.5-60.0 [facility] Comment on above: Performed By: #### S EDR #### [facility] [address] [address] [address] Julisa Lowe MANUAL DIFF REQ NO Normal [facility] Comment on above: Performed By: #### S EDR #### [facility] [address] [address] [address] Julisa Lowe MCH (RBC) [Entitic mass] 20.9 pg Critically low 26.7-34.0 [facility] Comment on above: Performed By: #### S EDR #### [facility] [address] [address] [address] Julisa Lowe MCHC (RBC) [Mass/Vol] 27.6 g/dL Critically low 29.9-35.2 [facility] Comment on above: Performed By: #### S EDR #### [facility] [address] [address] [address] Julisa Lowe MCV (RBC) [Entitic vol] 75.8 fL Critically low 81.0-99.0 [facility] Comment on above: Performed By: #### S EDR #### [facility] [address] [address] [address] Julisa Lowe MONO # 0.7 103/ul Normal 0.3-0.8 [facility] Comment on above: Performed By: #### S EDR #### [facility] [address] [address] [address] Julisa Lowe Monocytes/100 WBC (Bld) 5.1 % Normal 1.7-12.0 [facility] Comment on above: Performed By: #### S EDR #### [facility] [address] [place] [address] Dr. Julisa Lowe NEUT # 9.3 103/ul Critically high 1.4-6.5 [facility] Comment on above: Performed By: #### S EDR #### [facility] [address] [place] [address] Dr. Julisa Lowe Neutrophils/100 WBC (Bld) 69.5 % Normal 43.0-75.0 [facility] Comment on above: Performed By: #### S EDR #### [facility] [address] [place] [address] Dr. Julisa Lowe Platelet mean volume (Bld) [Entitic vol] 8.2 fL Critically low 9.5-13.5 [facility] Comment on above: Performed By: #### S EDR #### [facility] [address] [place] [address] Dr. Julisa Lowe PLT 303 103/ul Normal 150-450 [facility] Comment on above: Performed By: #### S EDR #### [facility] [address] [place] [address] Dr. Julisa Lowe RBC 4.83 106/ul Normal 4.20-5.40 [facility] Comment on above: Performed By: #### S EDR #### [facility] [address] [address] [address] Julisa Lowe WBC 13.4 103/ul Critically high 4.0-11.0 [facility] Comment on above: Performed By: #### S EDR #### [facility] [address] [address] [address] Julisa Lowe GLYCOHEMOGLOBIN A1Con 2020 ADA RECOMMENDATION ADA THERAPEUTIC TARGET 6.0 - 7.0 ACTION SUGGESTED > 7.0 Normal [facility] Comment on above: Performed By: #### A 1C #### [facility] [address] [address] [address] Julisa Lowe Glucose [Mass/Vol] 151 mg/dL Normal [facility] Comment on above: Performed By: #### A 1C #### [facility] [address] [address] [address] Julisa Lowe HbA1c (Bld) [Mass fraction] 6.9 % Critically high <=6.0 [facility] Comment on above: Performed By: #### A 1C #### [facility] [address] [address] [address] Julisa Lowe LIPID PROFILEon 09-10-2021 CHOL-HDL RATIO NORM SEE BELOW Normal [facility] Comment on above: Result Comment: 3.3 - 4.4 LOW RISK 4.4 - 7.1 AVERAGE RISK 7.1 - 11.0 MODERATE RISK >11.0 HIGH RISK Performed By: #### A 1C #### [facility] [address] [address] [address] Julisa Lowe Cholesterol [Mass/Vol] 121 mg/dL Normal <=200 [facility] Comment on above: Performed By: #### A 1C #### [facility] [address] [address] [address] Julisa Lowe Cholesterol in HDL [Mass/Vol] 55 mg/dL Normal [facility] Comment on above: Performed By: #### A 1C #### [facility] [address] [address] [address] Julisa Lowe Cholesterol in LDL [Mass/Vol] 46.8 mg/dL Normal [facility] Comment on above: Performed By: #### A 1C #### [facility] [address] [place] [address] Dr. Julisa Lowe Cholesterol.total/Chol esterol in HDL [Mass ratio] 2.2 {ratio} Normal [facility] Comment on above: Performed By: #### A 1C #### [facility] [address] [address] [address] Julisa oLwe HDL NORMAL > or = 60 mg/dl - LO W CARDIOVASCULAR RISK <40 mg/dl - HIGH CARDIOVASCULAR RISK Normal [facility] Comment on above: Performed By: #### A 1C #### [facility] [address] [place] [address] Dr. Julisa Lowe LDL CALC NORMAL SEE BELOW Normal [facility] Comment on above: Result Comment: <100 mg/dl OPTIMAL 100 - 129 mg/dl NEAR OR ABOVE OPTIMAL 130 - 159 mg/dl BORDERLINE HIGH 160 - 189 mg/dl HIGH >190 mg/dl VERY HIGH Performed By: #### A 1C #### [facility] [address] [place] [address] Dr. Julisa Lowe Triglyceride [Mass/Vol] 96 mg/dL Normal <=150 [facility] Comment on above: Performed By: #### A 1C #### [facility] [address] [place] [address] Dr. Julisa Lowe VLDL CALC 19.2 mg/dL Normal [facility] Comment on above: Performed By: #### A 1C #### [facility] [address] [place] [address] Dr. Julisa Lowe MICROALBUMIN, RAND URon 08-14 mALB 33.4 mg/L Critically high <=30.0 [facility] Comment on above: Performed By: #### S EDR #### [facility] [address] [place] [address] Dr. Julisa Lowe PROF 14(COMP METB)on 021 Albumin [Mass/Vol] 3.4 g/dL Critically low 3.5-5.0 [facility] Comment on above: Performed By: #### A 1C #### [facility] [address] [address] [address] Julisa Lowe Albumin/Globulin [Mass ratio] 1.3 {ratio} Normal [facility] Comment on above: Performed By: #### A 1C #### [facility] [address] [place] [address] Dr. Julisa Lowe ALP [Catalytic activity/Vol] 74 U/L Normal 38-126 [facility] Comment on above: Performed By: #### A 1C #### [facility] [address] [place] [address] Dr. Julisa Lowe ALT [Catalytic activity/Vol] 11 U/L Normal 9-52 [facility] Comment on above: Performed By: #### A 1C #### [facility] [address] [place] [address] Dr. Julisa Lowe Anion gap [Moles/Vol] 18.2 mmol/L Normal [facility] Comment on above: Performed By: #### A 1C #### [facility] [address] [place] [address] Dr. Julisa Lowe AST [Catalytic activity/Vol] 12 U/L Critically low 14-36 [facility] Comment on above: Performed By: #### A 1C #### [facility] [address] [place] [address] Dr. Julisa Lowe Bilirubin [Mass/Vol] 0.3 mg/dL Normal 0.2-1.3 [facility] Comment on above: Performed By: #### A 1C #### [facility] [address] [place] [address] Dr. Julisa Lowe Calcium [Mass/Vol] 9.3 mg/dL Normal 8.4-10.2 [facility] Comment on above: Performed By: #### A 1C #### [facility] [address] [place] [address] Dr. Julisa Lowe Chloride [Moles/Vol] 105 mmol/L Normal 98-107 [facility] Comment on above: Performed By: #### A 1C #### [facility] [address] [address] [address] Julisa Lowe Creatinine [Mass/Vol] 0.62 mg/dL Normal 0.52-1.04 [facility] Comment on above: Performed By: #### A 1C #### [facility] [address] [address] [address] Julisa Lowe EGFR-AF SPANISH >60 Normal >=60 [facility] Comment on above: Performed By: #### A 1C #### [facility] [address] [address] [address] Julisa Lowe EGFR-NON AF SPANISH >60 Normal >=60 [facility] Comment on above: Performed By: #### A 1C #### [facility] [address] [place] [address] Dr. Julisa Lowe Globulin (S) [Mass/Vol] 2.7 g/dL Normal [facility] Comment on above: Performed By: #### A 1C #### [facility] [address] [address] [address] Julisa Lowe Glucose [Mass/Vol] 134 mg/dL Critically high 74-106 [facility] Comment on above: Performed By: #### A 1C #### [facility] [address] [place] [address] Dr. Julisa Lowe Potassium [Moles/Vol] 4.3 mmol/L Normal 3.4-5.0 [facility] Comment on above: Performed By: #### A 1C #### [facility] [address] [place] [address] Dr. Julisa Lowe Protein [Mass/Vol] 6.1 g/dL Normal 6.1-8.2 [facility] Comment on above: Performed By: #### A 1C #### [facility] [address] [place] [address] Dr. Julisa Lowe Sodium [Moles/Vol] 142 mmol/L Normal 137-145 [facility] Comment on above: Performed By: #### A 1C #### [facility] [address] [place] [address] Dr. Julisa Lowe Urea nitrogen [Mass/Vol] 23.0 mg/dL Critically high 7.0-17.0 [facility] Comment on above: Performed By: #### A 1C #### [facility] [address] [place] [address] Dr. Julisa Lowe Urea nitrogen/Creatinine [Mass ratio] 37.1 mg/mg Normal [facility] Comment on above: Performed By: #### A 1C #### [facility] [id number] Julisa Lowe Covid-19 PCR ([facility])on 07-16 SARS-CoV-2 (COVID-19) RNA CHALINO+probe Ql (Unsp [...] for this test is supported by the Regional Psychiatric Director of Health and Human Service's (HHS's) declaration [...] SARS-CoV-2. Performed By: #### C VDTB #### [facility] [address] [place], [place] [id number] Dr. Julisa Lowe Vital Signs Date Time Vital Sign Value Performing Clinician Facility 05-09-2024 09:03-0400 Diastolic blood pressure 72 mm[Hg] [facility] 05-09-2024 09:03-0400 Heart rate 90 /min [facility] 05-09-2024 09:03-0400 Systolic blood pressure 109 mm[Hg] Shante Orzech [facility] 02-29-2024 10:35-0400 Blood Pressure Location Shante Orzech [facility] 02-29-2024 10:35-0400 Diastolic blood pressure 78 mm[Hg] Shante Orzech [facility] 02-29-2024 10:35-0400 Heart rate 68 /min Shante Orzech [facility] 02-29-2024 10:35-0400 Respiratory rate 16 /min Shante Orzech [facility] 02-29-2024 10:35-0400 Systolic blood pressure 132 mm[Hg] Shante Orzech [facility] 05-12-2022 15:00-0400 Diastolic blood pressure 49 mm[Hg] Chair Fillmore Work Phone: [facility] 05-12-2022 15:00-0400 Heart rate 98 /min Chair Fillmore Work Phone: [facility] 05-12-2022 15:00-0400 SaO2% (BldA) [Mass fraction] 95 % Chair Fillmore Work Phone: [facility] 05-12-2022 15:00-0400 Systolic blood pressure 137 mm[Hg] Chair Fillmore Work Phone: [facility] 05-12-2022 13:30-0400 Body temperature 98.6 [degF] Chair Hilda Work Phone: [facility] 05-12-2022 10:15-0400 Diastolic blood pressure 87 mm[Hg] MD Hood Patel Work Phone: [facility] 05-12-2022 10:15-0400 Heart rate 82 /min MD Hood Patel Work Phone: [facility] 05-12-2022 10:15-0400 Respiratory rate 16 /min MD Hood Patel Work Phone: [facility] 05-12-2022 10:15-0400 SaO2% (BldA) [Mass fraction] 100 % MD Hood Patel Work Phone: [facility] 05-12-2022 10:15-0400 Systolic blood pressure 149 mm[Hg] MD Hood Patel Work Phone: [facility] 05-12-2022 07:54-0400 Body height 154.94 cm MD Hood Patel Work Phone: [facility] 05-12-2022 07:54-0400 Body weight 53.52 kg MD Hood Patel Work Phone: [facility] 05-06-2022 14:29-0400 Body temperature 99 [degF] Chair Fillmore Work Phone: [facility] 05-06-2022 14:29-0400 Diastolic blood pressure 51 mm[Hg] Chair Fillmore Work Phone: [facility] 05-06-2022 14:29-0400 Heart rate 93 /min Chair Fillmore Work Phone: [facility] [place] 05-06-2022 14:29-0400 Respiratory rate 16 /min Chair Fillmore Work Phone: [facility] [place] 05-06-2022 14:29-0400 SaO2% (BldA) [Mass fraction] 98 % Chair Hilda Work Phone: [facility] [place] 05-06-2022 14:29-0400 Systolic blood pressure 129 mm[Hg] Chair Hilda Work Phone: [facility] [place] 04-28-2022 10:47-0400 Body temperature 98.91 [degF] Chair Fillmore Work Phone: [facility] [place] 04-28-2022 10:47-0400 Diastolic blood pressure 64 mm[Hg] Chair Fillmore Work Phone: [facility] [place] 04-28-2022 10:47-0400 Heart rate 88 /min Chair Fillmore Work Phone: [facility] [place] 04-28-2022 10:47-0400 Respiratory rate 18 /min Chair Hilda Work Phone: [facility] [place] 04-28-2022 10:47-0400 SaO2% (BldA) [Mass fraction] 98 % Chair Fillmore Work Phone: [facility] [place] 04-28-2022 10:47-0400 Systolic blood pressure 122 mm[Hg] Chair Hilda Work Phone: [facility] [place] 04-22-2022 14:02-0400 Body temperature 99 [degF] Chair Fillmore Work Phone: [facility] [place] 04-22-2022 14:02-0400 Diastolic blood pressure 56 mm[Hg] Chair Fillmore Work Phone: [facility] [place] 04-22-2022 14:02-0400 Heart rate 95 /min Chair Fillmore Work Phone: [facility] [place] 04-22-2022 14:02-0400 Respiratory rate 18 /min Chair Fillmore Work Phone: [facility] [place] 04-22-2022 14:02-0400 SaO2% (BldA) [Mass fraction] 96 % Chair Hilda Work Phone: [facility] [place] 04-22-2022 14:02-0400 Systolic blood pressure 123 mm[Hg] Chair Hilda Work Phone: [facility] [place] 10-14-2021 14:15-0500 Body height 154.94 cm Lawanda Olexa Other [employer] Other 10-14-2021 14:15-0500 Body mass index (BMI) [Ratio] 22.26 kg/m2 Lawanda Medinaxa Other [employer] Other 10-14-2021 14:15-0500 Body weight 53.43 kg Lawanda Medinaxa Other [employer] Other Encounters Encounter Date Encounter Type Care Provider Facility Start: 05-09-2024 End: 05-09-2024 Lab Drop off Shante X Orzech [facility] Start: 05-09-2024 End: 05-09-2024 ambulatory Shante X Orzech Facility:[facility] Start: 05-09-2024 End: 05-09-2024 Patient encounter procedure Shante X Orzech [facility] Start: 05-08-2024 End: 05-09-2024 ambulatory [facility] Start: 05-03-2024 End: 05-03-2024 ambulatory TJ CURRY Not Available Start: 03-14-2024 End: 03-14-2024 ambulatory [facility] Start: 02-29-2024 End: 02-29-2024 ambulatory Shante X Orzech [facility] Start: 02-29-2024 End: 02-29-2024 Lab Drop off Shante X Orzech [facility] Start: 02-29-2024 End: 02-29-2024 ambulatory Shante X Orzech Facility:[facility] Start: 02-29-2024 End: 02-29-2024 Patient encounter procedure Shante X Orzech [facility] Start: 01-04-2024 End: 01-04-2024 ambulatory [...] encounter procedure MD Hood Patel Work Phone: [facility] Start: 05-06-2022 End: 05-06-2022 ambulatory Chair 14 Hilda Work Phone: Hematology/Oncology Comment on above: Iron deficiency anem ia due to chronic blood loss (Primary Dx) Start: 04-28-2022 End: 04-28-2022 ambulatory Chair 14 Fillmore Work Phone: Hematology/Oncology Comment on above: Iron deficiency anem ia due to chronic blood loss (Primary Dx) Start: 04-22-2022 End: 04-22-2022 ambulatory Chair 13 Fillmore Work Phone: Hematology/Oncology Comment on above: Iron deficiency anem ia due to chronic blood loss (Primary Dx) Start: 04-15-2022 End: 04-15-2022 ambulatory Hood Patel Other [employer] Other Start: 04-15-2022 Telephone encounter Hood Obrien ck [facility] Start: 04-14-2022 Telephone encounter Christy jefferson RN Work Phone: Hematology/Oncology Comment on above: Critical Results (Gl ucose) Start: 04-14-2022 End: 04-14-2022 ambulatory Chair 15 Hilda Work Phone: Hematology/Oncology Comment on above: Iron deficiency anem ia due to chronic blood loss (Primary Dx); Controlled type 2 diabetes mellitus without complication, unspecified whether oil heaterman insulin use (HCC) Start: 04-08-2022 End: 04-09-2022 ambulatory WATERS H FAWWAD Facility:[facility] Start: 04-06-2022 Telephone encounter Christi lópez MD Work Phone: [facility] Comment on above: Appointment Confirma tion [...] 10-14-2021 End: 10-14-2021 ambulatory Lawanda Alvarez Other [employer] Other Start: 10-14-2021 Office outpatient ne w 30 minutes Lawanda Alvarez [facility] Start: 09-10-2021 End: 09-11-2021 ambulatory WATERS H FAWWAD Facility:[facility] Start: 08-16-2021 Encounter for preprocedural laboratory examination DR LJ BRENNAN [facility] Start: 08-13-2021 End: 08-13-[address] [...] Author Start: 04-14-2025 DIABETES SCREEN DIABETES SCREEN [facility] [place] Start: 05-14-2022 Influenza vaccination INFLUENZA (#1) [facility] [place] Start: 05-12-2022 [facility] Work Phone: Start: 05-12-2022 Esophagogastroduodenoscopy DH EGD (Not Applicable) [facility] Start: 05-12-2022 End: 05-12-2022 Admission to same day surgery center Iron deficiency anemia [facility] Start: 09-13-2021 ADVANCE DIRECTIVE DISCUSSION ADVANCE DIRECTIVE DISCUSSION [facility] [place] Start: 11-14-2015 BONE DENSITY BONE DENSITY [facility] [place] Start: 11-14-1995 COLOGUARD (FIT-DNA) COLOGUARD (FIT-DNA) [facility] [place] Start: 11-14-1995 Colonoscopy COLONOSCOPY [facility] [place] Start: 11-14-1995 COLORECTAL CANCER SCREENING COLORECTAL CANCER SCREENING [facility] [place] Start: 11-14-[address] COLONOGRAPHY [facility] [place] Start: 11-14-1995 FECAL OCCULT BLOOD FECAL OCCULT BLOOD [facility] [place] Start: 11-14-1995 LIPID SCREEN LIPID SCREEN [facility] [place] Start: 11-14-1995 SIGMOIDOSCOPY SIGMOIDOSCOPY [facility] [place] Start: 1990 Mammography MAMMOGRAM [facility] [place] Start: 1969 SHINGRIX VACCINE (1 of 2) SHINGRIX VACCINE (1 of 2) [facility] [place] Start: 1969 Urine microalbumin profile DTAP,TDAP,TD (1 - Tdap) [facility] [place] Start: 1968 HEPATITIS C SCREENING HEPATITIS C SCREENING [facility] [place] Start: 1962 Adult depression screening assessment DEPRESSION SCREENING [facility] [place] Start: 1956 PNEUMOCOCCAL: 65+ (1 - PCV) PNEUMOCOCCAL: 65+ (1 - PCV) [facility] [place] Start: 11-14-1955 COVID-19 VACCINE (#1) COVID-19 VACCINE (#1) [facility] [place] Start: 05-16-1951 COVID-19 VACCINE (#1) COVID-19 VACCINE (#1) [facility] [place] Glucose [Mass/volume ] in Serum or Plasma GLUCOSE, BLOOD (POC) Lab Routine Iron deficiency anemia due to chronic blood loss Controlled type 2 diabetes mellitus without complication, unspecified whether group home insulin use (HCC) Ordered: 04/14/2022 [facility] Work Phone: Comment on above: Ordered: 04/14/2022 Patient Education Hiatal Hernia (DC) [facility] Work Phone: [facility] Immunizations Immunization Date Immunization Notes Care Provider Jose watts 11-11-2021 influenza virus vaccine, unspecified formulation [facility] 05-19-2021 influenza, unspecifi ed formulation [facility] 01-30-2021 SARS-CoV-2 (COVID-19 ) mRNA [id number] vax [facility] Comment on above: Result Comment: 2023: [id number] 01-02-2021 SARS-CoV-2 (COVID-19 ) mRNA BNT-162b2 vax Shante Orzech [facility] 05-14-2020 influenza virus vaccine, unspecified formulation Shante Orzech [facility] 07-26-2019 pneumococcal conjuga te vaccine, 13 valent Shante Orzech [facility] 06-28-2019 influenza virus vaccine, unspecified formulation Shante Orzech [facility] 08-22-2018 influenza virus vaccine, unspecified formulation Shante Orzech [facility] 06-18-2016 influenza, unspecifi ed formulation Shante Orzech [facility] 06-20-2015 influenza virus vaccine, unspecified formulation Shante Orzech [facility] Payers Date Payer Category Payer Medicaid MEDICAID [facility] MEDICAID [id number] 2022-Present [phone] [address] [place] [address] Medicaid [id number] 2022 Medicaid MEDICAID [facility] MEDICAID [id number] 2022-Present [phone] [address] [place] [address] Medicaid [id number] 2021 Medicare [facility] MEDICARE [facility] DUAL COMPLETE HMO SNP [id number] 2021-Present [phone] [address] [place] [address] Medicare [id number] 2021 Medicare [facility] MEDICARE [facility] DUAL COMPLETE HMO SNP [id number] 2021-Present [phone] [address] [place] [address] Medicare [id number] 1959 Medicaid [id number] 1959 Medicare [id number] 2.16.840.1.842829.19 1959 Medicare [id number] 2.16.840.1.052870.19 1959 Private Health Insurance [id number] 1950 Unknown [id number] 2.16.840.1.154570.3.579.2.5 1950 Unknown [id number] 2.16.840.1.587214.3.579.2.5 1950 Unknown [id number] 2.16.840.1.531523.3.579.2.5 1950 Unknown [id number] 2.16.840.1.201358.3.579.2.5 1950 Unknown [id number] 2.16.840.1.581432.3.579.2.5 1950 Unknown [id number] 2.16.840.1.295187.3.579.2.5 93 1950 Unknown [id number] 2.16.840.1.564525.3.579.2.5 1950 Unknown [id number] 2.16.840.1.828279.3.579.2.5 1950 Unknown [id number] 2.16.840.1.004399.3.579.2.5 93 1950 Unknown [id number] 2.16.840.1.035001.3.579.2.5 93 1950 Unknown [id number] 2.16.840.1.964611.3.579.2.5 93 1950 Unknown [id number] 2.16.840.1.168377.3.579.2.5 93 1950 Unknown [id number] 2.16.840.1.583677.3.579.2.5 93 1950 Unknown [id number] 2.16.840.1.732767.3.579.2.1 259 1950 Unknown [id number] 2.16.840.1.072513.3.579.2.1 259 1950 Unknown [id number] 2.16.840.1.448121.3.579.2.1 259 1950 Unknown [id number] 2.16.840.1.134540.3.579.2.7 27 1950 Unknown [id number] 2.16.840.1.223955.3.579.2.7 27 1950 Unknown [id number] 2.16.840.1.299221.3.579.2.7 27 1950 Unknown [id number] 2.16.840.1.174327.3.579.2.7 27 Medicare Medicare [id number] Private Health Insurance [employer] [id number] Self-pay Self Pay [id number] Social History Date Type Detail Facility Sex Assigned At [facility] Start: 03-31-2016 End: 05-09-2024 Tobacco smoking status NHIS Never smoked tobacco [facility] Start: 07-19-2016 Tobacco use and exposure Smokeless tobacco non-user [facility] Start: 04-14-2022 End: 04-28-2022 Alcohol intake Current non-drinker of alcohol (finding) [facility] Start: 1950 Sex Assigned At Not on file [facility] Start: 04-04-2022 End: 05-12-2022 Exposure to SARS-CoV-2 (event) Not sure [facility] Start: 1950 Sex Assigned At Female F [facility] Tobacco smoking status Never [facility] Goals Date Patient Goal Desired Activity /State Functional Status Date Assessment Result Facility 05-09-2024 Functional Status N/A [facility] 02-29-2024 Functional Status N/A [facility] Clinical Notes 10-14-2021 to 05-09-2024 Telephone Encounter - Makenna Kendall RN - 04/21/2022 1:47 PM EDTTelephone Encounter - Makenna Kendall RN - 04/21/2022 1:31 PM EDTTelephone Encounter - Christi Fink MD - 04/14/2022 1:39 PM EDT Note Date & Type Note Facility 05-09-2024 Evaluation + Plan note Diagnostic Tests PendingUrine Culture 05/09/24 [facility] 05-09-2024 Hospital Discharg e instructions Patient [...] (electrical nerve stimulation). ?For women, using a biomedical engineering supervisor to prevent urine leaks. This is a [...] right after experiencing incontinence. General instructions Take ecsz-pqm-dnnbnso and prescription medicines only as told by [...] important. Where to find more information National [place] of Diabetes and Digestive and Kidney Diseases: www.niddk.nih.gov [place] [employer]: www.urologyhealth.org Contact a health care [...] provider. Document Revised: 04/04/2021 Document Reviewed: 04/04/2021 [employer] Patient Education 2022 [employer]. 05/09/2024 10:01:15 Overactive Bladder, Adult Overactive Bladder, [...] your health care provider. General instructions Take xmoe-pgl-ymdjlok and prescription medicines only as told by [...] Document Reviewed: 05/19/2021 Elsevier Patient Education 2022 [employer] Education. Follow Up Care 02/29/2024 11:11:11 With:AMALIA Shukla APRN, NAHEED Tate, URL Address: When: Unknown Comments:6 months [facility] 05-09-2024 Note Patient Education Obstetrics and Gynecology [...] health care provider. General instructions ? Take syyk-xnn-yhmlbbn and prescription medicines only as told by [...] your health care (more content not included)... [facility] 03-14-2024 Note Cardiology Follow Up [...] as needed Edd Wade MD Interventional Cardiology [facility] 03-05-2024 Note Chief Complaint Referral [...] with voice recognition artificial intelligence software, specifically Buyapowa, Limonetik and or Cap That. Substitutions may have occurred due to the [...] diabetic autonomic (poly)neuropathy (more content not included)... [facility] Comment on above: Result Comment: Elec tronically Signed By: AMALIA Shukla APRN, [place]\.br\Date and Time Signed: 03/05/24 22:19 EDT 04-21-2022 Miscellaneous Notes Pt has follow up appointment with Dr Rainye tomorrow. Makenna Kendall RN Spoke with Pankaj at Dr Rainey's office. Recent records and labs faxed to [phone] per office request. Makenna Kendall RN Message left with Dr Rainey's medical intern again today regarding this pt and the urgency of this being addressed. Will try again later today if I don't hear back from their office. Makenna Kendall RN Call placed to [facility]. Office is closed. Makenna Kendall RN PCP updated in chart Glucose rechecked in the office and it was 373 by fingerstick. Call placed to Dr Joseph who is listed at pt's PCP. Jono states he has not worked in the office in 4 years now. Jono states pt is now seen by Dr Rainey at [facility]. Call placed to their office ([phone]) and message left requesting a call back. PSS: can you please update pt's PCP info. Thanks, Makenna Kendall RN Thanks. Can we have her PCP address this, Thanks Key Monteiro from [facility] Lab Client Services calls to report critical results: Glucose - 506 Pt identifiers and results read back for verification. Christy Byrd RN documented in this encounter [facility] 04-16-2022 Miscellaneous Notes Called Angélica Romano spoke [...] were not included. Please send records to [facility] office thanks! MD Tj Thompson; Makenna Lebron Please refer her to GI for an upper endoscopy. Thanks documented in this encounter [facility] 04-15-2022 Evaluation note Encounter Date Diagnosis Assessment Notes Apr, Anemia due to blood loss, chronic (ICD-10 - D50.0) [facility] Other 08-02-2022 NoteHNO ID: [id number] Author: Brenda Tavera RN Service: ? Author [...] noted. She has verbalized understanding [facility] NoteHNO ID: [id number] Author: Christi Fink MD Service: ? Author Type: Physician Type: Progress Notes Filed: 04/14/2022 1:13 PM Note Text: PATIENT NAME: Robina [facility] NO.: [id number] ATTENDING PHYSICIAN: Christi Fink MD DATE OF SERVICE: April 14, [address] Sparks, here is an update on a follow up visit on female Robina Ron at the clinic 04/14/2022 Diagnosis: KARUNA Treatment History: 1. Venofer 04/14/2022 HPI: Robina oRn is a 71 year old year old [...] g/dL Final RDW-CV Date (more content not included)...[facility]08-02-2022 History of Present illness Narrative* Brenda [...] understanding Brenda Tavera RN [facility] [place] NoteHNO ID: [id number] Author: Christi Fink MD Service: ? Author Type: Physician Type: Progress Notes Filed: 04/04/2022 11:07 AM Note Text: PATIENT NAME: Robina Ron CLINIC NO.: [id number] ATTENDING PHYSICIAN: Christi Fink MD DATE OF [...] not taking: Reported on 03/31/2022 ) - Ckuyi-8-EBA-EPA-Fish Oil 1,000 mg (120 mg-180 mg) cap [...] sciatica - COPD (chronic obstructive pulmonary disease) ([facility]) - CVA (cerebral (more content not included)...[facility] 12-22-2021 NoteCARDIAC STRESS TEST Requesting Physician: [...] interpreted and reported in a separate dictation. [facility] Signed and Approved by: DR ALFRED SUGGS 03/03/2022 10:18:00[facility]02-01-2022 Evaluation note* Encounter Date Diagnosis Assessment [...] We discussed that there will be a oil heaterman cosmetic deformity at the AC joint, however, relatively normal function can return. If oil heaterman pain and dysfunction occur, surgical treatment can be considered. Patient given order for physical therapy. [facility] Other Evaluation + Plan note Future Appointments Appointment Date:04/11/2024 09:00:00 AM Scheduled Provider:AMALIA Shukla APRN, [place] Location:[facility] Appointment Type:URO Office Visit [facility] evaluation + Plan note Future Appointments Appointment Date:04/11/2024 09:00:00 AM Scheduled Provider:AMALIA Shukla APRN, [place] Location:[facility] Appointment Type:URO Office Visit Diagnostic Tests Pending * Urine Culture 02/29/24 [facility] note* Diagnosis Iron deficiency anemia due to chronic blood loss- Primary Iron deficiency anemia secondary to blood loss (chronic) Controlled type 2 diabetes mellitus without complication, unspecified whether oil heaterman insulin use (HCC) documented in this encounter [facility] note* Diagnosis Iron deficiency anemia due to chronic blood loss- Primary Iron deficiency anemia secondary to blood loss (chronic) documented in this encounter [facility] note* Diagnosis Iron deficiency anemia due to chronic blood loss- Primary Iron deficiency anemia secondary to blood loss (chronic) [facility] Diagnosis Iron deficiency anemia due to chronic blood loss- Primary Iron deficiency anemia secondary to blood loss (chronic) [facility] Diagnosis Iron deficiency anemia due to chronic blood loss- Primary Iron deficiency anemia secondary to blood loss (chronic) [facility] Diagnosis Onset Date Resolution Status Iron deficiency anemia [facility] Work Phone: History general Narrative - Reported* Type Description Date Medical History diabetes type 2 Medical History stroke Medical History mild form of leukemia Surgical History x2 Surgical History cateract removal bilateral Surgical History kidney and bladder surgery Surgical History choliectomy Hospitalization History listed above [facility] Other Hospital course Narrative No data available for this section [facility] Hospital Discharge instructions No data available for this section [facility] progress note No data available for this section [facility] Medications Administered Section Inactive Administered Medications - [...] INJECTION PER 1 MG Christi Fink MD [address] [place] [id number] Jasiel Treat [address] [place] [address] Referral ID Status Reason Start Date Expiration Date V isits Requested Visits Authorized [id number] Authorized 04/03/2022 09/12/2022 99 99 Reason Comments Appointment Confirmation Reason Comments Critical Results Glucose Source Comments (unrecognize d section and content) In the event this informatio n is protected by the Federal Confidentiality of Alcohol and Drug Abuse Patient Records regulations: The Federal rules restrict any use of the information to criminally investigate or prosecute any alcohol or drug abuse patient.[facility] the event this information is protected by the Federal Confidentiality of Alcohol and Drug Abuse Patient Records regulations: The Federal rules restrict any use of the information to criminally investigate or prosecute any alcohol or drug abuse patient.[facility] the event this information is protected by the Federal Confidentiality of Alcohol and Drug Abuse Patient Records regulations: The Federal rules restrict any use of the information to criminally investigate or prosecute any alcohol or drug abuse patient.[facility] the event this information is protected by the Federal Confidentiality of Alcohol and Drug Abuse Patient Records regulations: The Federal rules restrict any use of the information to criminally investigate or prosecute any alcohol or drug abuse patient.[facility] the event this information is protected by the Federal Confidentiality of Alcohol and Drug Abuse Patient Records regulations: The Federal rules restrict any use of the information to criminally investigate or prosecute any alcohol or drug abuse patient.[facility] the event this information is protected by the Federal Confidentiality of Alcohol and Drug Abuse Patient Records regulations: The Federal rules restrict any use of the information to criminally investigate or prosecute any alcohol or drug abuse patient.[facility] the event this information is protected by the Federal Confidentiality of Alcohol and Drug Abuse Patient Records regulations: The Federal rules restrict any use of the information to criminally investigate or prosecute any alcohol or drug abuse patient.[facility] Care Teams (unrecognized sec tion and content) Recycling Technician Relationship Specialty Start Date End Date Shaikh Sparks MD [address] [place] [address] PCP - General Primary Care 04/14/22 Recycling Technician Relationship Specialty Start Date End Date Demetrio Joseph PCP - General Family Practice 03/09/16 04/13/22 Shaikh Sparks MD [address] [place] [address] PCP - General Primary Care 04/14/22 Recycling Technician Relationship Specialty Start Date End Date Shaikh Spraks MD [address] [place] [address] PCP - General Primary Care 04/14/22 Recycling Technician Relationship Specialty Start Date End Date Shaikh Sparks MD [address] [place] [address] PCP - General Primary Care 04/14/22 Recycling Technician Relationship Specialty Start Date End Date Shaikh Sparks MD [address] [place] [address] PCP - General Primary Care 04/14/22 Recycling Technician Relationship Specialty Start Date End Date Shaikh Sparks MD [address] [place] [address] PCP - General Primary Care 04/14/22 Recycling Technician Relationship Specialty Start Date End Date Shaikh Sparks MD [address] [place] [address] PCP - General Primary Care 04/14/22 Team Status: Inactive Member Role Status Dates Hood Patel MD Attending Provider Active Shaikh Clare MD Primary Care Provider Active Team Status: Active Member Role Status Dates Shaikh Clare MD Primary Care Provider Active INFORMATION SOURCE (unrecogn ized section and content) DATE CREATED AUTHOR 05/14/2022 [facility] DATE CREATED AUTHOR AUTHOR'S ORGANIZ ATION 05/16/2022 [facility] DATE CREATED AUTHOR AUTHOR'S ORGANIZ ATION 07/07/2022 [facility] DATE CREATED AUTHOR AUTHOR'S ORGANIZ ATION 03/03/2024 [place] [facility] DATE CREATED AUTHOR AUTHOR'S ORGANIZ ATION 05/05/2024 [facility] DATE CREATED AUTHOR AUTHOR'S ORGANIZ ATION 05/10/2024 [facility] DATE CREATED AUTHOR AUTHOR'S ORGANIZ ATION 05/10/2024 [place] [facility] DATE CREATED AUTHOR AUTHOR'S ORGANIZ ATION 05/11/2024 [facility] DATE CREATED AUTHOR AUTHOR'S ORGANIZ ATION 05/13/2024 [facility] FOR RECORDS PERTAINING TO PATIENTS WHO ARE [...] BE BASED ON THE PRIMARY CLINICAL RECORDS. [facility]. provides no warranty or guarantee of the accuracy or completeness of information in this document.
--- NOTE | 2024-06-03 18:01 | P.HP_ITS ---
HPI H&P: HPI History of Present Illness Chief complaint: VOMITING Colitis Opioid HPI Opioid Management Most Recent Pain and Opioid Data: No Data to Display PFSH PFSH Medical History (Updated 06/03/24 @ 17:57 by Monika Kidd) Factor 5 Leiden mutation, heterozygous ?D68.51 - Activated protein C resistance (ICD-10) Diabetes ?E11.9 - Type 2 diabetes mellitus without complications (ICD-10) High cholesterol ?E78.00 - Pure hypercholesterolemia, unspecified (ICD-10) Overactive bladder ?N32.81 - Overactive bladder (ICD-10) HTN (hypertension) ?I10 - Essential (primary) hypertension (ICD-10) Surgical History (Updated 06/03/24 @ 17:13 by Monika Kidd) History of cholecystectomy ?Z90.49 - Acquired absence of other specified parts of digestive tract (ICD- 10) H/O: hysterectomy ?Z90.710 - Acquired absence of both cervix and uterus (ICD-10) Meds Home Medications and Allergies Home Medications ?Medication ?Instructions ?Recorded ?Confirmed ?Type albuterol sulfate 90 mcg/actuation 2 inh inhalation Q6H PRN shortness 06/03/24 06/03/24 History aerosol inhaler of breath or wheezing apixaban 5 mg tablet (Eliquis) 5 mg PO Q12H 06/03/24 06/03/24 History atorvastatin 20 mg tablet 20 mg PO .QD 06/03/24 06/03/24 History dapagliflozin propanediol 10 mg 10 mg PO .QD 06/03/24 06/03/24 History tablet (Farxiga) diltiazem HCl 240 mg 240 mg PO Q24H 06/03/24 06/03/24 History capsule,extended release 24 hr dulaglutide 1.5 mg/0.5 mL 1.5 mg subcut .WEEKLY 06/03/24 06/03/24 History subcutaneous pen injector ([facility]) glipizide 5 mg tablet 5 mg PO BID 06/03/24 06/03/24 History insulin NPH-regular 70-30 U-100 15 unit subcut BID 06/03/24 06/03/24 History insulin 100 unit/mL subcutaneous pen (Humulin 70/30 U-100 [place]) lisinopril 5 mg tablet 5 mg PO .QD 06/03/24 06/03/24 History metoprolol tartrate 50 mg tablet 50 mg PO Q12H 06/03/24 06/03/24 History pantoprazole 40 mg tablet,delayed 40 mg PO .Q24 06/03/24 06/03/24 History release trazodone 50 mg tablet 50 mg PO .QHS 06/03/24 06/03/24 History trospium 20 mg tablet 20 mg PO Q12H 06/03/24 06/03/24 History Allergies Allergy/AdvReac Type Severity Reaction Status Date / Time acetaminophen [From Percocet] Allergy Agitated Verified 06/03/24 14:26 oxycodone [From Percocet] Allergy Agitated Verified 06/03/24 14:26 Exam Constitutional Vital Signs, click to edit/add: Last Vital Signs Temp 97.6 F 06/03/24 14:26 Pulse 109 H 06/03/24 15:55 Resp 15 06/03/24 15:55 BP 99/61 06/03/24 15:55 Pulse Ox 93 L 06/03/24 15:55 O2 Del Method Room Air 06/03/24 14:26 Results Labs Labs: Short CBC 06/03/24 Range/Units 14:50 WBC 33.4 H* (4.0-11.0) 10^3/uL Hgb 16.3 H (12.0-16.0) g/dL Hct 51.9 H (36.0-48.0) % Plt Count 257 (150-450) 10^3/uL BMP 06/03/24 14:50 Sodium 139 Potassium 3.9 Chloride 103 Carbon Dioxide 21.5 BUN 26.0 H Creatinine 1.84 H Glucose 308 H Calcium 9.5 Liver Function 06/03/24 Range/Units 14:50 Total Bilirubin 1.4 H (0.2-1.0) mg/dL Direct Bilirubin 0.5 H (0.0-0.2) mg/dL AST 88 H (15-37) U/L ALT 88 H (14-59) U/L Alkaline Phosphatase 203 H (46-116) U/L Albumin 3.2 L (3.4-5.0) g/dL Urine 06/03/24 Range/Units 16:43 Urine Color Dk. yellow (YELLOW) Urine Clarity Clear (CLEAR) Urine pH 5.5 (5.0-9.0) Ur Specific [place] <=1.005 A (1.005-1.025) Urine Protein 30 A (NEG/TRACE) mg/dL Urine Glucose (UA) 500 A (NEGATIVE) mg/dL Urinary Catheter Management Urinary Catheter Management Straight: Cath placed during this visit: yes Insertion date: 06/03/24
[2024-06-03 20:13] LABS: Lactate/Lactic Acid 4.7 mmol/L (0.4-2.0)
--- NOTE | 2024-06-03 20:34 | PM.HP ---
HPI H&P: HPI History of Present Illness Chief complaint: VOMITING Colitis Narrative: 73 y o female was in her usual state of health when she woke up around 3 am with intractable nausea, vomiting and LLQ abdominal pain. Patient reports inability to keep anything down since her symptoms started. She repots that her pain is persistent, associated with abdominal distention but denies diarrhea/constipation. She denies seeing blood in stools. Patient presented to ED and her work up is consistent with severe sepsis sec to Colitis. She meets criteria for septic shock with SBP as low as 70/40 upon arrival. At the time of my evaluation, patient had received initial 1 L Bolus and felt relatively better but was still feeling overall weak/tired and nauseous. Her abdominal pain had improved but she was still quite tender in her LLQ. Her last colonoscopy was about a year ago. She has no known hx of IBD or diverticulitis. Opioid HPI Opioid Management Most Recent Pain and Opioid Data: Last Pain Scale 6 06/03/24 20:00 Last Pain Assessment 06/03/24 20:00 Last ORT Total Score 0 06/03/24 17:56 Last ORT Risk Category Low Risk 06/03/24 17:56 Review of Systems ROS Status of ROS 10 or more systems reviewed and unremarkable except as noted in history and below [facility] Medical History (Updated 06/03/24 @ 20:44 by Shaikh Clare MD) HLD (hyperlipidemia) ?E78.5 - Hyperlipidemia, unspecified (ICD-10) Chronic diastolic heart failure ?I50.32 - Chronic diastolic (congestive) heart failure (ICD-10) Paroxysmal A-fib ?I48.0 - Paroxysmal atrial fibrillation (ICD-10) TIA (transient ischemic attack) ?G45.9 - Transient cerebral ischemic attack, unspecified (ICD-10) CLL (chronic lymphocytic leukemia) ?C91.10 - Chronic lymphocytic leukemia of B-cell type not having achieved remission (ICD-10) Factor 5 Leiden mutation, heterozygous ?D68.51 - Activated protein C resistance (ICD-10) Diabetes ?E11.9 - Type 2 diabetes mellitus without complications (ICD-10) High cholesterol ?E78.00 - Pure hypercholesterolemia, unspecified (ICD-10) Overactive bladder ?N32.81 - Overactive bladder (ICD-10) HTN (hypertension) ?I10 - Essential (primary) hypertension (ICD-10) Surgical History (Updated 06/03/24 @ 18:47 by Monika Kidd) Cataracts, both eyes ?H26.9 - Unspecified cataract (ICD-10) History of cholecystectomy ?Z90.49 - Acquired absence of other specified parts of digestive tract (ICD-10) H/O: hysterectomy ?Z90.710 - Acquired absence of both cervix and uterus (ICD-10) Family History (Updated 06/03/24 @ 18:48 by Monika Kidd) Father Family history of CHF (congestive heart failure) Mother Family history of cancer Family history of hypertension Social History (Updated 06/03/24 @ 18:50 by Monika Kidd) Within the past year, how often did you have a drink containing alcohol: never Score interpretation: A score less than 3 is consistent with normal alcohol consumption. Smoking status: Never smoker Non-prescribed substance use: denies use Previous occupational history: disabled Highest level of school completed/degree received: high school graduate Are you now , , , , never or living with a partner: Little interest or pleasure in doing things: not at all Feeling down, depressed, or hopeless: not at all Feel stressed/tense/nervous/anxious/difficulty sleeping: not at all Meds Home Medications and Allergies Home Medications ?Medication ?Instructions ?Recorded ?Confirmed ?Type albuterol sulfate 90 mcg/actuation 2 inh inhalation Q6H PRN shortness 06/03/24 06/03/24 History aerosol inhaler of breath or wheezing apixaban 5 mg tablet (Eliquis) 5 mg PO Q12H 06/03/24 06/03/24 History atorvastatin 20 mg tablet 20 mg PO .QD 06/03/24 06/03/24 History dapagliflozin propanediol 10 mg 10 mg PO .QD 06/03/24 06/03/24 History tablet (Farxiga) diltiazem HCl 240 mg 240 mg PO Q24H 06/03/24 06/03/24 History capsule,extended release 24 hr dulaglutide 1.5 mg/0.5 mL 1.5 mg subcut .WEEKLY 06/03/24 06/03/24 History [facility] glipizide 5 mg tablet 5 mg PO BID 06/03/24 06/03/24 History insulin NPH-regular 70-30 U-100 15 unit subcut BID 06/03/24 06/03/24 History insulin 100 unit/mL subcutaneous pen (Humulin 70/30 U-100 [place]) lisinopril 5 mg tablet 5 mg PO .QD 06/03/24 06/03/24 History metoprolol tartrate 50 mg tablet 50 mg PO Q12H 06/03/24 06/03/24 History pantoprazole 40 mg tablet,delayed 40 mg PO .Q24 06/03/24 06/03/24 History release trazodone 50 mg tablet 50 mg PO .QHS 06/03/24 06/03/24 History trospium 20 mg tablet 20 mg PO Q12H 06/03/24 06/03/24 History Allergies Allergy/AdvReac Type Severity Reaction Status Date / Time acetaminophen [From Percocet] Allergy Agitated Verified 06/03/24 14:26 oxycodone [From Percocet] Allergy Agitated Verified 06/03/24 14:26 Exam Constitutional Vital Signs, click to edit/add: Last Vital Signs Temp 98.4 F 06/03/24 19:47 Pulse 92 H 06/03/24 20:00 Resp 18 06/03/24 20:00 BP 81/44 L 06/03/24 19:47 Pulse Ox 91 L 06/03/24 19:47 O2 Del Method Room Air 06/03/24 19:47 General appearance: cooperative, comfortable, ill appearing and frail appearing [facility] Common normals: normocephalic and head/scalp atraumatic Respiratory Common normals: normal respiratory effort, no use of accessory muscles and clear to auscultation bilaterally Effort & inspection: able to speak in complete sentences Cardio Common normals: no JVD, regular rate, regular rhythm, S1 normal heart sound and S2 normal heart sound GI Common normals: soft to palpation and no hepatosplenomegaly Inspection: abdominal distension Auscultation: normoactive bowel sounds Palpation: tender Details: LLQ Other: No guarding or rebound tenderness Extremity Common normals: normal to inspection and full ROM Neuro Common normals: oriented x3 and moves all extremities Psych Common normals: mental status grossly normal, thought process normal, denies hallucinations and denies homicidal ideation Results Labs Labs: Short CBC 06/03/24 Range/Units 14:50 WBC 33.4 H* (4.0-11.0) 10^3/uL Hgb 16.3 H (12.0-16.0) g/dL Hct 51.9 H (36.0-48.0) % Plt Count 257 (150-450) 10^3/uL BMP 06/03/24 14:50 Sodium 139 Potassium 3.9 Chloride 103 Carbon Dioxide 21.5 BUN 26.0 H Creatinine 1.84 H Glucose 308 H Calcium 9.5 Liver Function 06/03/24 Range/Units 14:50 Total Bilirubin 1.4 H (0.2-1.0) mg/dL Direct Bilirubin 0.5 H (0.0-0.2) mg/dL AST 88 H (15-37) U/L ALT 88 H (14-59) U/L Alkaline Phosphatase 203 H (46-116) U/L Albumin 3.2 L (3.4-5.0) g/dL Urine 06/03/24 Range/Units 16:43 Urine Color Dk. yellow (YELLOW) Urine Clarity Clear (CLEAR) Urine pH 5.5 (5.0-9.0) Ur Specific [place] <=1.005 A (1.005-1.025) Urine Protein 30 A (NEG/TRACE) mg/dL Urine Glucose (UA) 500 A (NEGATIVE) mg/dL Assessment and Plan Assessment and Plan (1) Septic shock: Assessment and Plan: SIRS (WBC 33K, RR>20, HR>90), qSOFA (SBP <80, RR> 22) , source of infection - colitis. Ordered IVF 1 L bolus. Patient had already received 2L IVF bolus in ED. After initial resuscitation, will start on IVF LR at 125 ml/hr. If persistent hypotension, she might require Levophed infusion. On Rocephin/flagly for Colitis. High suspicion for C diff colitis - empirically started on PO vancomycin. (2) Sepsis: Assessment and Plan: Meets sepsis criteria based on SIRS/qSOFA Ordered 1 L IV bolus after initial 2 L bolus. If persistent hypotension, will require Levophed infusion. On Rocephin/flagly for Colitis. High suspicion for C diff colitis - empirically started on PO vancomycin. Qualifiers: Acute renal failure type: unspecified Sepsis acute organ dysfunction status: with acute organ dysfunction Sepsis type: sepsis due to unspecified organism Severe sepsis acute organ dysfunction type: acute renal failure Severe sepsis shock status: with septic shock Qualified Code(s): A41.9 - Sepsis, unspecified organism; R65.21 - Severe sepsis with septic shock; N17.9 - Acute kidney failure, unspecified (3) Colitis: Assessment and Plan: LLQ Pain, intractable nausea/vomiting. CT scan shows colitis. On Rocephin/flagly for Colitis. High suspicion for C diff colitis - empirically started on PO vancomycin. On clear liquid diet. Zofran as needed for N/V (4) Lactic acidosis: Assessment and Plan: Initial lactate 8.9, repeat trended down to 4.7 c/w IVF. Sec to septic shock/hypoperfusion (5) SHIRA (acute kidney injury): Assessment and Plan: Has normal renal function at baseline. Cr upon arrival was 1.8 Likely pre renal sec to sepsis and hypovolemia Monitor UO, serum cr closely. (6) Paroxysmal A-fib: Assessment and Plan: Hx of paroxysomal afib. Uses Cardizem at home - on hold due to hypotension. C/w Eliquis for stroke px. (7) Chronic diastolic heart failure: Assessment and Plan: Hypovolemic/dehydrated due to septic shock. Requiring aggressive IV hydration. Will need close hemodynamic monitoring. (8) Diabetes: Assessment and Plan: Hold oral hypoglycemics. Decrease NPH/regular insulin to 10 Q12 as patient has SHIRA, poor PO intake. SSI while inpatient for hyperglycemia Qualifiers: Diabetes mellitus complication detail: with polyneuropathy Diabetes mellitus complication status: with neurologic complications Diabetes mellitus truck terminal manager insulin use: with truck terminal manager use Diabetes mellitus type: type 2 Qualified Code(s): E11.42 - Type 2 diabetes mellitus with diabetic polyneuropathy; Z79.4 - residential (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 insulin (9) HTN (hypertension): Assessment and Plan: Hold all anti hypertensives as patient's blood pressure is unsrable and low. If persistently low, will require Levophed infusion Qualifiers: Hypertension type: primary hypertension Qualified Code(s): I10 - Essential (primary) hypertension (10) HLD (hyperlipidemia): Assessment and Plan: C/w statin Qualifiers: Hyperlipidemia type: unspecified Qualified Code(s): E78.5 - Hyperlipidemia, unspecified Urinary Catheter Management Urinary Catheter Management Straight: Cath placed during this visit: yes Urethral indwelling: Yes Reason for continuing: measure accurate output Insertion date: 06/03/24
[2024-06-03] MEDS: LACTATED RINGER'S SOLUTION 1,000 ML 125 ML IV (20:58)
[2024-06-03] MEDS: APIXABAN 5 MG TABLET PO (20:58)
[2024-06-03] MEDS: 0.9 % SODIUM CHLORIDE 1,000 ML 250 ML IV (20:59)
[2024-06-03] MEDS: OXYCODONE HCL 5 MG TABLET PO (22:54)
[2024-06-03] MEDS: TRAZODONE HCL 50 MG TABLET PO (22:55)
[2024-06-03] MEDS: INSULIN NPH 70-30 100UNIT/ML VIAL (10ML) 10 UNIT SUBQ (23:00)
[2024-06-03] MEDS: INSULIN ASPART 300 UNIT/3 ML PEN SUBQ (23:00)
[2024-06-04] VITALS (168 sets, daily range): BP systolic 67–143; BP diastolic 34–85; PULSE 96–119; TEMP 36.4–37.4; O2SAT 85–99
[2024-06-04] MEDS: ONDANSETRON PF 4 MG/2 ML VIAL IV (00:27)
[2024-06-04] MEDS: NOREPINEPHRINE BITARTRATE/D5W 4 MG/250 ML PREMIX 30 MG IV (02:15)
--- NOTE | 2024-06-04 03:46 | XR_ITS ---
The [address] [address] Patient Name: CHEY RON MRN: [id number] date: 1950 Sex: F Assigned Patient Location: ICU Current Patient Location: ICU Accession/Order Number: [id number] Exam Date: 06/04/2024 03:52 Report Date: 06/04/2024 10:38 At the request of: MILI TUTTLE Procedure: XR chest 1V EXAM: XR chest 1V HISTORY: Hypoxia COMPARISON: 12/20/2021 TECHNIQUE: Chest X-ray AP, 1 view FINDINGS: Support devices: None. Lungs/pleura: No effusion, or pneumothorax. Right perihilar linear opacities, likely representing right upper and lower lobes atelectasis. Heart and mediastinum: Normal contours. Bones: No acute abnormality identified. XR/XR chest 1V Impression: Right perihilar linear opacities, likely representing right upper and lower lobes atelectasis. Electronically authenticated by: ITZ ZARATE Date: 06/04/2024 10:38
[2024-06-04] MEDS: LACTATED RINGER'S SOLUTION 1,000 ML 125 ML IV (04:01)
[2024-06-04 04:52] LABS: Basophils Absolute Auto 0.1 10^3/uL (0.0-0.1); Basophils Percent Auto 0.3 % (0.2-2.0); Eosinophils Absolute Auto 0.1 10^3/uL (0.0-0.7); Eosinophils Percent Auto 0.4 % (0.9-7.0); Hematocrit 39.3 % (36.0-48.0); Hemoglobin 12.7 g/dL (12.0-16.0); Immature Granulocytes Abs Auto 0.13 10^3/uL (0.00-0.03); Immature Granulocytes Pct Auto 0.7 % (0.0-0.5); Lymphocytes Absolute Auto 3.3 10^3/uL (1.2-3.8); Lymphocytes Percent Auto 17.3 % (20.5-60.0); Mean Corpuscular HGB Conc 32.3 g/dL (29.9-35.2); Mean Corpuscular Hemoglobin 29.7 pg (26.7-34.0); Mean Platelet Volume 8.3 fL (9.5-13.5); Monocytes Absolute Auto 1.4 10^3/uL (0.3-0.8); Monocytes Percent Auto 7.2 % (1.7-12.0); Neutrophils Absolute Auto 14.3 10^3/uL (1.4-6.5); Neutrophils Percent Auto 74.1 % (43.0-75.0); Platelet Count 125 10^3/uL (150-450); Red Blood Count 4.27 10^6/uL (4.20-5.40); Red Cell Distribution Width 14.9 % (11.0-15.0); White Blood Count 19.3 10^3/uL (4.0-11.0)
[2024-06-04 04:53] LABS: PCO2 VBG 34.6 mmHg (40.0-52.0); pH VBG 7.322 (7.330-7.430)
[2024-06-04 05:35] LABS: Lactate/Lactic Acid 2.4 mmol/L (0.4-2.0)
[2024-06-04 06:02] LABS: Alanine Aminotransferase 55 U/L (14-59); Albumin Level 2.1 g/dL (3.4-5.0); Alkaline Phosphatase 134 U/L (46-116); Anion Gap 11.1; Aspartate Amino Transferase 31 U/L (15-37); BUN Creatinine Ratio 20.5; Bilirubin Total 0.8 mg/dL (0.2-1.0); Calcium 7.6 mg/dL (8.5-10.1); Carbon Dioxide 23.1 mmol/L (21.0-32.0); Chloride 108 mmol/L (98-107); Estimated GFR (African America 43 (>=60); Estimated GFR (Non-African Ame 35 (>=60); Globulin 2.2 g/dL; Glucose 183 mg/dL (74-106); Potassium 4.2 mmol/L (3.5-5.1); Sodium 138 mmol/L (136-145); Total Protein 4.3 g/dL (6.4-8.2)
[2024-06-04] MEDS: INSULIN ASPART 300 UNIT/3 ML PEN SUBQ (07:58)
[2024-06-04] MEDS: INSULIN NPH 70-30 100UNIT/ML VIAL (10ML) 10 UNIT SUBQ (08:02)
[2024-06-04] MEDS: METRONIDAZOLE/SODIUM CHLORIDE 500 MG/100 ML PREMIX 100 MG IV ×3 (08:25→23:43)
[2024-06-04] MEDS: SOLIFENACIN SUCCINATE 10 MG TABLET PO (08:26)
[2024-06-04] MEDS: OMEPRAZOLE 40 MG CAPSULE.DR PO (08:26)
[2024-06-04] MEDS: APIXABAN 5 MG TABLET PO ×2 (08:26→22:10)
--- NOTE | 2024-06-04 10:56 | PM.IMPN1 ---
Progress Note: A&P Assessment and Plan (1) Septic shock: Assessment and Plan: Required IV Levophed infusion for persistent hypotension despite aggressive IV fluid resuscitation. She was weaned off of Levophed earlier this morning. Her blood pressure is stable but she remains tachycardic. Her hemodynamic status has improved but still requires close monitoring. Follow-up blood cultures, C. difficile testing. Continue with IV Rocephin/Flagyl and p.o. vancomycin (2) Sepsis: Assessment and Plan: Patient is improving with improvement in her white count, renal function. Her blood pressure is also better and she is now off of Levophed infusion. Continue with antibiotics as discussed above Qualifiers: Sepsis type: sepsis due to unspecified organism Sepsis acute organ dysfunction status: with acute organ dysfunction Severe sepsis acute organ dysfunction type: acute renal failure Acute renal failure type: unspecified Severe sepsis shock status: with septic shock Qualified Code(s): A41.9 - Sepsis, unspecified organism; R65.21 - Severe sepsis with septic shock; N17.9 - Acute kidney failure, unspecified (3) Colitis: Assessment and Plan: Patient is on IV Rocephin and Flagyl. She is being treated with p.o. vancomycin for suspected C. difficile infection. Unable to confirm as she has had no bowel movement since admission (4) Lactic acidosis: Assessment and Plan: Due to hypovolemia/septic shock. Improved with IV hydration. (5) SHIRA (acute kidney injury): Assessment and Plan: Her renal function is back to its baseline. Decrease IV fluids to 100 mL/h. She has good urine output. Monitor urine output and serum creatinine closely. (6) Paroxysmal A-fib: Assessment and Plan: She is not in A-fib but she is tachycardic. Her blood pressure is persistently stable, I will resume her oral Cardizem. (7) Chronic diastolic heart failure: Assessment and Plan: Monitor volume status closely while on IV fluids. Decrease IV fluids to 100 mL/h for (8) Diabetes: Assessment and Plan: Hold oral hypoglycemics. Continue with sliding scale insulin while inpatient. She is also on NPH/regular insulin (70/30) and I continued it at a lower dose of 10 units twice a day because of poor oral intake Qualifiers: Diabetes mellitus type: type 2 Diabetes mellitus manager terminal insulin use: with manager terminal use Diabetes mellitus complication status: with neurologic complications Diabetes mellitus complication detail: with polyneuropathy Qualified Code(s): E11.42 - Type 2 diabetes mellitus with diabetic polyneuropathy; Z79.4 - longterm (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 insulin (9) HTN (hypertension): Assessment and Plan: Hold all antihypertensives until blood pressure is stable. Monitor closely. Qualifiers: Hypertension type: primary hypertension Qualified Code(s): I10 - Essential (primary) hypertension (10) HLD (hyperlipidemia): Assessment and Plan: Continue with statin Qualifiers: Hyperlipidemia type: unspecified Qualified Code(s): E78.5 - Hyperlipidemia, unspecified Internal Medicine - PN: Subj Subjective Interval history: Seen and examined. Overnight patient was transferred to ICU for septic shock requiring IV vasopressor (levophed infusion) She was seen this morning and was resting comfortably. She was weaned off of Levophed earlier this morning. Patient subjectively feels better. She is still quite nauseous and does not feel like eating. She did not vomit overnight. No diarrhea or BM since last night. Exam Constitutional Vital Signs, click to edit/add: Last Vital Signs Temp 99.3 F 06/04/24 08:20 Pulse 110 H 06/04/24 10:04 Resp 21 H 06/04/24 09:40 BP 107/60 06/04/24 09:30 Pulse Ox 97 06/04/24 09:45 O2 Del Method Room Air 06/04/24 09:45 O2 Flow Rate 1 06/04/24 08:20 General appearance: cooperative, lethargic, ill appearing and frail appearing Respiratory Common normals: normal respiratory effort, no use of accessory muscles and clear to auscultation bilaterally Effort & inspection: able to speak in complete sentences Cardio Common normals: regular rhythm, S1 normal heart sound and S2 normal heart sound Rate: tachycardic Extremity Common normals: normal to inspection and full ROM Neuro Common normals: oriented x3, moves all extremities and no sensory deficits noted Psych Common normals: mental status grossly normal, thought process normal, denies homicidal ideation and denies suicidal ideation Internal Medicine - PN: Obj Da Labs Labs: Laboratory Results - last 24 hr 06/03/24 06/03/24 06/03/24 14:50 16:43 19:30 WBC 33.4 H* RBC 5.55 H Hgb 16.3 H Hct 51.9 H MCV 93.5 MCH 29.4 MCHC 31.4 RDW 14.3 Plt Count 257 MPV 8.2 L Neut % (Auto) Lymph % (Auto) [place] % (Auto) Eos % (Auto) Baso % (Auto) Neut # (Auto) Lymph # (Auto) [place] # (Auto) Eos # (Auto) Baso # (Auto) Abs Immat Gran (auto) Seg Neuts % (Manual) 71.0 Band Neutrophils % 6.0 H Lymphocytes % (Manual) 16.0 L Monocytes % (Manual) 7.0 Eosinophils % (Manual) 0.0 L Basophils % (Manual) 0.0 L Imm/Tot Granulo (auto) Neutrophils # (Manual) 23.71 H Band Neutrophils # 2.0 H Lymphocytes # (Manual) 5.34 H Monocytes # (Manual) 2.33 H Eosinophils # (Manual) 0.00 Basophils # (Manual) 0.00 VBG pH VBG pCO2 Sodium 139 Potassium 3.9 Chloride 103 Carbon Dioxide 21.5 Anion Gap 18.4 BUN 26.0 H Creatinine 1.84 H Est GFR ( Amer) 33 L Est GFR (Non-Af Amer) 27 L BUN/Creatinine Ratio 14.1 Glucose 308 H Lactate 8.9 H* 4.7 H* Calcium 9.5 Total Bilirubin 1.4 H Direct Bilirubin 0.5 H AST 88 H ALT 88 H Alkaline Phosphatase 203 H NT-Pro-B Natriuret Pep Total Protein 6.2 L Albumin 3.2 L Globulin 3.0 Albumin/Globulin Ratio 1.1 Amylase 333 H* Lipase 38.0 Urine Color Dk. yellow Urine Clarity Clear Urine pH 5.5 Ur Specific Alpha <=1.005 A Urine Protein 30 A Urine Glucose (UA) 500 A Urine Ketones Negative Urine Occult Blood Negative Urine Nitrite Negative Urine Bilirubin Small A Urine Urobilinogen 2.0 A Ur Leukocyte Esterase Negative Urine RBC 0-2 Urine WBC 2-5 A Ur Squamous Epith Cells Few A Ur Transition Epith Cell Rare A Urine Crystals Seen A Amorphous Sediment Few Urine Bacteria Trace A Urine Casts None seen Urine Mucus None seen 06/04/24 06/04/24 04:40 05:41 WBC 19.3 H RBC 4.27 Hgb 12.7 Hct 39.3 MCV 92.0 MCH 29.7 MCHC 32.3 RDW 14.9 Plt Count 125 L MPV 8.3 L Neut % (Auto) 74.1 Lymph % (Auto) 17.3 L [place] % (Auto) 7.2 Eos % (Auto) 0.4 L Baso % (Auto) 0.3 Neut # (Auto) 14.3 H Lymph # (Auto) 3.3 [place] # (Auto) 1.4 H Eos # (Auto) 0.1 Baso # (Auto) 0.1 Abs Immat Gran (auto) 0.13 H Seg Neuts % (Manual) Band Neutrophils % Lymphocytes % (Manual) Monocytes % (Manual) Eosinophils % (Manual) Basophils % (Manual) Imm/Tot Granulo (auto) 0.7 H Neutrophils # (Manual) Band Neutrophils # Lymphocytes # (Manual) Monocytes # (Manual) Eosinophils # (Manual) Basophils # (Manual) VBG pH 7.322 L VBG pCO2 34.6 L Sodium 138 Potassium 4.2 Chloride 108 H Carbon Dioxide 23.1 Anion Gap 11.1 BUN 30.0 H Creatinine 1.46 H Est GFR ( Amer) 43 L Est GFR (Non-Af Amer) 35 L BUN/Creatinine Ratio 20.5 Glucose 183 H Lactate 2.4 H* Calcium 7.6 L Total Bilirubin 0.8 Direct Bilirubin AST 31 ALT 55 Alkaline Phosphatase 134 H NT-Pro-B Natriuret Pep 1444.0 H* Total Protein 4.3 L Albumin 2.1 L Globulin 2.2 Albumin/Globulin Ratio 1.0 Amylase Lipase Urine Color Urine Clarity Urine pH Ur Specific Alpha Urine Protein Urine Glucose (UA) Urine Ketones Urine Occult Blood Urine Nitrite Urine Bilirubin Urine Urobilinogen Ur Leukocyte Esterase Urine RBC Urine WBC Ur Squamous Epith Cells Ur Transition Epith Cell Urine Crystals Amorphous Sediment Urine Bacteria Urine Casts Urine Mucus Urinary Catheter Management Urinary Catheter Management Straight: Cath placed during this visit: yes Urethral indwelling: Yes Reason for continuing: not indwelling catheter Insertion date: 06/03/24
[2024-06-04] MEDS: VANCOMYCIN HCL 7,500 MG/150 ML BOTTLE 125 MG PO ×3 (11:04→22:11)
[2024-06-04] MEDS: LACTATED RINGER'S SOLUTION 1,000 ML 100 ML IV (13:35)
[2024-06-04] MEDS: CEFTRIAXONE 1,000 MG in 0.9 % SODIUM CHLORIDE 50 ML 100 MG IV (16:32)
--- NOTE | 2024-06-04 18:33 | PC.NURSE ---
assisted pt into wheelchair, transferred to room 219 with belongings. pt oriented to room and call light
[2024-06-04] MEDS: ATORVASTATIN CALCIUM 20 MG TABLET PO (22:10)
[2024-06-04] MEDS: TRAZODONE HCL 50 MG TABLET PO (22:11)
[2024-06-05] VITALS (21 sets, daily range): BP systolic 94–125; BP diastolic 40–78; PULSE 88–122; TEMP 36.8–38; O2SAT 91–93
[2024-06-05] MEDS: ACETAMINOPHEN 325 MG TABLET 650 MG PO (03:34)
[2024-06-05] MEDS: LACTATED RINGER'S SOLUTION 1,000 ML 100 ML IV (03:35)
[2024-06-05] MEDS: VANCOMYCIN HCL 7,500 MG/150 ML BOTTLE 125 MG PO ×4 (05:06→21:06)
[2024-06-05 06:12] LABS: Hematocrit 32.7 % (36.0-48.0); Hemoglobin 10.5 g/dL (12.0-16.0); Mean Corpuscular HGB Conc 32.1 g/dL (29.9-35.2); Mean Corpuscular Hemoglobin 29.2 pg (26.7-34.0); Mean Corpuscular Volume 91.1 fL (81.0-99.0); Mean Platelet Volume 8.1 fL (9.5-13.5); Platelet Count 135 10^3/uL (150-450); Red Blood Count 3.59 10^6/uL (4.20-5.40); Red Cell Distribution Width 14.9 % (11.0-15.0); White Blood Count 11.5 10^3/uL (4.0-11.0)
[2024-06-05 06:37] LABS: Alanine Aminotransferase 32 U/L (14-59); Albumin Globulin Ratio 0.7; Albumin Level 1.7 g/dL (3.4-5.0); Alkaline Phosphatase 109 U/L (46-116); Aspartate Amino Transferase 18 U/L (15-37); BUN Creatinine Ratio 25.6; Bilirubin Total 0.7 mg/dL (0.2-1.0); Calcium 7.2 mg/dL (8.5-10.1); Carbon Dioxide 23.1 mmol/L (21.0-32.0); Chloride 108 mmol/L (98-107); Estimated GFR (African America 55 (>=60); Estimated GFR (Non-African Ame 45 (>=60); Globulin 2.3 g/dL; Glucose 85 mg/dL (74-106); Potassium 4.1 mmol/L (3.5-5.1); Sodium 136 mmol/L (136-145)
[2024-06-05 07:06] LABS: Band Neutrophils Absolute 0.8 10^3/uL (0.0-0.3); Eosinophils Absolute Manual 0.11 10^3/uL (0.00-0.70); Lymphocytes Absolute Manual 1.38 10^3/uL (1.20-3.80); Monocytes Absolute Manual 0.57 10^3/uL (0.30-0.80); Segmented Neut Absolute Manual 8.62 10^3/uL (1.4-6.5)
[2024-06-05 07:07] LABS: Dohle Bodies 1+
[2024-06-05] MEDS: OMEPRAZOLE 40 MG CAPSULE.DR PO (09:05)
[2024-06-05] MEDS: SOLIFENACIN SUCCINATE 10 MG TABLET PO (09:05)
[2024-06-05] MEDS: DILTIAZEM HCL 240 MG CAP.ER.24H PO (09:05)
[2024-06-05] MEDS: METRONIDAZOLE/SODIUM CHLORIDE 500 MG/100 ML PREMIX 100 MG IV ×3 (09:05→23:57)
[2024-06-05] MEDS: APIXABAN 5 MG TABLET PO ×2 (09:08→21:05)
--- NOTE | 2024-06-05 10:20 | PM.IMPN1 ---
Progress Note: A&P Assessment and Plan (1) Septic shock: Assessment and Plan: Stable hemodynamics. Stop IVF. C/w IV rocephin/flagly and PO Vancomycin (2) Sepsis: Assessment and Plan: Stable hemodynamics. Leukocytosis improving. PO intake improved along with abdominal pain C/w abx Qualifiers: Acute renal failure type: unspecified Sepsis acute organ dysfunction status: with acute organ dysfunction Sepsis type: sepsis due to unspecified organism Severe sepsis acute organ dysfunction type: acute renal failure Severe sepsis shock status: with septic shock Qualified Code(s): A41.9 - Sepsis, unspecified organism; R65.21 - Severe sepsis with septic shock; N17.9 - Acute kidney failure, unspecified (3) Colitis: Assessment and Plan: Improving. GI symptoms are better. Anorexia, nausea is resolved. Minimal abdominal pain in LLQ. C/w Abx (4) Lactic acidosis: Assessment and Plan: Due to hypovolemia/septic shock. (5) SHIRA (acute kidney injury): Assessment and Plan: Her renal function is back to its baseline. Stop IVF. (6) Paroxysmal A-fib: Assessment and Plan: She is not in A-fib but she is tachycardic. HR improved after addition of Cardizem (7) Chronic diastolic heart failure: Assessment and Plan: Volume overload on exam today, likely due to aggressive IV hydration. One dose of IV lasix. Stop IVF. (8) Diabetes: Assessment and Plan: Hold oral hypoglycemics. Continue with sliding scale insulin while inpatient. She is also on NPH/regular insulin (70/30) and I continued it at a lower dose of 10 units twice a day because of poor oral intake Qualifiers: Diabetes mellitus complication detail: with polyneuropathy Diabetes mellitus complication status: with neurologic complications Diabetes mellitus skilled nursing insulin use: with consulting solution director use Diabetes mellitus type: type 2 Qualified Code(s): E11.42 - Type 2 diabetes mellitus with diabetic polyneuropathy; Z79.4 - fluid dynamicist (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 insulin (9) HTN (hypertension): Assessment and Plan: Hold all antihypertensives until blood pressure is stable. Monitor closely. Qualifiers: Hypertension type: primary hypertension Qualified Code(s): I10 - Essential (primary) hypertension (10) HLD (hyperlipidemia): Assessment and Plan: Continue with statin Qualifiers: Hyperlipidemia type: unspecified Qualified Code(s): E78.5 - Hyperlipidemia, unspecified Internal Medicine - PN: Subj Subjective Interval history: Seen and examined. No overnight events. Patient is feeling better. She appears very tired and lethargic. She is tolerating her diet now. Her abdominal pain is also much better. Exam Constitutional Vital Signs, click to edit/add: Last Vital Signs Temp 98.3 F 06/05/24 08:16 Pulse 102 H 06/05/24 10:00 Resp 16 06/05/24 08:18 BP 120/66 06/05/24 08:16 Pulse Ox 92 L 06/05/24 08:16 O2 Del Method Nasal Cannula 06/05/24 08:16 O2 Flow Rate 2 06/05/24 08:16 General appearance: cooperative, lethargic, ill appearing and frail appearing Respiratory Common normals: normal respiratory effort, no use of accessory muscles and clear to auscultation bilaterally Effort & inspection: able to speak in complete sentences Cardio Common normals: regular rhythm, S1 normal heart sound and S2 normal heart sound Rate: tachycardic Extremity Common normals: normal to inspection and full ROM Neuro Common normals: oriented x3, moves all extremities and no sensory deficits noted Psych Common normals: mental status grossly normal, thought process normal, denies homicidal ideation and denies suicidal ideation Internal Medicine - PN: Obj Da Labs Labs: Laboratory Results - last 24 hr 06/05/24 05:47 WBC 11.5 H RBC 3.59 L Hgb 10.5 L Hct 32.7 L MCV 91.1 MCH 29.2 MCHC 32.1 RDW 14.9 Plt Count 135 L MPV 8.1 L Seg Neuts % (Manual) 75.0 Band Neutrophils % 7.0 H Lymphocytes % (Manual) 12.0 L Monocytes % (Manual) 5.0 Eosinophils % (Manual) 1.0 Basophils % (Manual) 0.0 L Neutrophils # (Manual) 8.62 H Band Neutrophils # 0.8 H Lymphocytes # (Manual) 1.38 Monocytes # (Manual) 0.57 Eosinophils # (Manual) 0.11 Basophils # (Manual) 0.00 Dohle Bodies 1+ Sodium 136 Potassium 4.1 Chloride 108 H Carbon Dioxide 23.1 Anion Gap 9.0 BUN 30.0 H Creatinine 1.17 H Est GFR ( Amer) 55 L Est GFR (Non-Af Amer) 45 L BUN/Creatinine Ratio 25.6 Glucose 85 Calcium 7.2 L Total Bilirubin 0.7 AST 18 ALT 32 Alkaline Phosphatase 109 Total Protein 4.0 L Albumin 1.7 L Globulin 2.3 Albumin/Globulin Ratio 0.7 Urinary Catheter Management Urinary Catheter Management Straight: Cath placed during this visit: yes Urethral indwelling: No Insertion date: 06/03/24
--- NOTE | 2024-06-05 10:26 | CM.NOTE ---
Rounds made with Dr. Sparks. Dr. Sparks reviews testing with Robina. No plan for discharge today.
[2024-06-05] MEDS: FUROSEMIDE 40 MG/4 ML VIAL IVP (10:53)
[2024-06-05 11:24] LABS: Glucometer 119 mg/dL (74-106)
--- NOTE | 2024-06-05 12:04 | SWNOTE1 ---
YELENA met with pt and son in room to discuss dc needs. Pt lives at home with son and both of her sons assist as needed. Pt has a walker and wheelchair at home that she does use. Pt does not wear home oxygen, but is on it currently at hospital. YELENA let pt and son know that HH was recommended at discharge. Pt and son stated she has had in the past, but they do not remember what company. YELENA provided a list from medicare.gov with star ratings. Pt and son do not have a preference. YELENA reaching out to [facility] to see if they accept pt's insurance. Important Message from Medicare reviewed and discussed with patient. Pt. verbalized understanding and signed the form. Original given to patient and copy placed in patient?s chart.
--- NOTE | 2024-06-05 13:23 | SWNOTE1 ---
Shalonda at [facility] reached out in regards to referral and stated they take [place] case by case and voiced to send over referral. [facility]
--- NOTE | 2024-06-05 14:21 | SWNOTE1 ---
SW received call back from [facility] and they are not able to accept. YELENA sent referral to [address]
--- NOTE | 2024-06-05 14:54 | SWNOTE1 ---
[facility] is able to accept. SW left a paper in the room so pt and sons are aware of the home health company name.
[2024-06-05 16:19] LABS: Glucometer 125 mg/dL (74-106)
[2024-06-05] MEDS: CEFTRIAXONE 1,000 MG in 0.9 % SODIUM CHLORIDE 50 ML 100 MG IV (17:31)
[2024-06-05 19:40] LABS: Glucometer 111 mg/dL (74-106)
[2024-06-05] MEDS: ATORVASTATIN CALCIUM 20 MG TABLET PO (21:05)
[2024-06-05] MEDS: TRAZODONE HCL 50 MG TABLET PO (21:06)
[2024-06-06] VITALS (19 sets, daily range): BP systolic 109–137; BP diastolic 64–72; PULSE 86–98; TEMP 36.6–37.1; O2SAT 87–93
--- NOTE | 2024-06-06 | XR_ITS ---
The [address] [address] Patient Name: CHEY RON MRN: [id number] date: 1950 Sex: F Assigned Patient Location: [place] Current Patient Location: Accession/Order Number: [id number] Exam Date: 06/06/2024 13:28 Report Date: 06/06/2024 14:34 At the request of: SHAIKH MALGORZATA Procedure: XR acute abdomen series CHEST X-RAY HISTORY: Chest pain COMPARISON: None. TECHNIQUE: 1 view chest is submitted for review. FINDINGS: The lungs are adequately expanded without evidence for acute infiltrate. Small left sided small effusion. The cardiac silhouette is enlarged. Pulmonary vascularity is mildly prominent. Osseous structures demonstrate with ACDF fusion hardware. XR/XR acute abdomen series IMPRESSION: Cardiomegaly with left sided small effusion. Electronically authenticated by: MARIEL FRIAS Date: 06/06/2024 14:34
[2024-06-06] MEDS: VANCOMYCIN HCL 7,500 MG/150 ML BOTTLE 125 MG PO ×4 (05:42→21:01)
[2024-06-06 06:14] LABS: Hemoglobin 10.5 g/dL (12.0-16.0); Mean Corpuscular HGB Conc 31.8 g/dL (29.9-35.2); Mean Corpuscular Hemoglobin 29.2 pg (26.7-34.0); Mean Corpuscular Volume 91.9 fL (81.0-99.0); Platelet Count 119 10^3/uL (150-450); Red Blood Count 3.59 10^6/uL (4.20-5.40); Red Cell Distribution Width 14.8 % (11.0-15.0); White Blood Count 9.7 10^3/uL (4.0-11.0)
[2024-06-06 06:37] LABS: Alanine Aminotransferase 24 U/L (14-59); Albumin Globulin Ratio 0.8; Albumin Level 1.8 g/dL (3.4-5.0); Alkaline Phosphatase 159 U/L (46-116); Anion Gap 10.6; Aspartate Amino Transferase 15 U/L (15-37); BUN Creatinine Ratio 24.2; Bilirubin Total 0.5 mg/dL (0.2-1.0); Calcium 7.5 mg/dL (8.5-10.1); Carbon Dioxide 23.2 mmol/L (21.0-32.0); Chloride 110 mmol/L (98-107); Estimated GFR (African America >60 (>=60); Estimated GFR (Non-African Ame 55 (>=60); Globulin 2.3 g/dL; Glucose 94 mg/dL (74-106); Potassium 3.8 mmol/L (3.5-5.1); Sodium 140 mmol/L (136-145); Total Protein 4.1 g/dL (6.4-8.2)
[2024-06-06 06:57] LABS: Band Neutrophils Absolute 0.7 10^3/uL (0.0-0.3); Segmented Neut Absolute Manual 7.08 10^3/uL (1.4-6.5)
[2024-06-06 06:58] LABS: Dohle Bodies 1+; Eosinophils Absolute Manual 0.19 10^3/uL (0.00-0.70); Lymphocytes Absolute Manual 1.35 10^3/uL (1.20-3.80); Monocytes Absolute Manual 0.38 10^3/uL (0.30-0.80)
[2024-06-06] MEDS: OMEPRAZOLE 40 MG CAPSULE.DR PO (08:34)
[2024-06-06] MEDS: METRONIDAZOLE/SODIUM CHLORIDE 500 MG/100 ML PREMIX 100 MG IV ×3 (08:34→23:50)
[2024-06-06] MEDS: SOLIFENACIN SUCCINATE 10 MG TABLET PO (08:34)
[2024-06-06] MEDS: 0.9 % SODIUM CHLORIDE 250 ML 10 ML IV (08:34)
[2024-06-06] MEDS: DILTIAZEM HCL 240 MG CAP.ER.24H PO (08:34)
[2024-06-06] MEDS: APIXABAN 5 MG TABLET PO ×2 (08:36→20:27)
--- NOTE | 2024-06-06 10:14 | REH.PTDLY ---
Physical Therapy Daily Note PT Daily Note/Assess Start: 06/06/24 10:13 Freq: Status: Active Protocol: Document 06/06/24 10:13 ANTOINETTE (Rec: 06/06/24 10:14 ANTOINETTE [id number]) Visit Not Completed Visit Not Completed Due to: Pt refusing Other Reason Visit Not Completed Pt declines this morning 2x, states she is very fatigued and stomach is hurting badly on first attempt. Second attempt pt is sleeping soundly . Pt now has cdiff precautions outside door. Physical Therapy Daily Note/Assessment Time In 10:10 Time Out 10:11
--- NOTE | 2024-06-06 10:18 | CM.NOTE ---
Rounds made with Dr. Sparks. Potential discharge later today if abdominal pain diminished. Ra verbalizes understanding.
[2024-06-06 11:11] LABS: Glucometer 163 mg/dL (74-106)
--- NOTE | 2024-06-06 12:37 | PM.IMPN1 ---
Progress Note: A&P Assessment and Plan (1) Septic shock: Assessment and Plan: Stable hemodynamics. C/w IV rocephin/flagly and PO Vancomycin (2) Sepsis: Assessment and Plan: Stable hemodynamics. Leukocytosis improving. C/w abx Qualifiers: Sepsis type: sepsis due to unspecified organism Sepsis acute organ dysfunction status: with acute organ dysfunction Severe sepsis acute organ dysfunction type: acute renal failure Acute renal failure type: unspecified Severe sepsis shock status: with septic shock Qualified Code(s): A41.9 - Sepsis, unspecified organism; R65.21 - Severe sepsis with septic shock; N17.9 - Acute kidney failure, unspecified (3) Colitis: Assessment and Plan: Patient was improving clinically but reports worse abdominal pain and mild nausea today. XR abd ordered. Abdomen is soft/mild distention noted. (4) Lactic acidosis: Assessment and Plan: Due to hypovolemia/septic shock. (5) SHIRA (acute kidney injury): Assessment and Plan: Her renal function is back to its baseline. (6) Paroxysmal A-fib: Assessment and Plan: She is not in A-fib but she is tachycardic. HR improved after addition of Cardizem (7) Chronic diastolic heart failure: Assessment and Plan: Volume overload on exam today but better from IV lasix yesterday. will order PO lasix. (8) Diabetes: Assessment and Plan: Hold oral hypoglycemics. Continue with sliding scale insulin while inpatient. 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 BP stable. Qualifiers: Hypertension type: primary hypertension Qualified Code(s): I10 - Essential (primary) hypertension (10) HLD (hyperlipidemia): Assessment and Plan: Continue with statin Qualifiers: Hyperlipidemia type: unspecified Qualified Code(s): E78.5 - Hyperlipidemia, unspecified Internal Medicine - PN: Subj Subjective Interval history: Seen and examined. No overnight events. Patient reports her pain is worse today and she does not feel like eating. She is complaining of mild nausea. But denies vomiting. Exam Constitutional Vital Signs, click to edit/add: Last Vital Signs Temp 98.2 F 06/06/24 03:27 Pulse 86 06/06/24 12:00 Resp 18 06/06/24 03:27 BP 137/72 06/06/24 03:27 Pulse Ox 91 L 06/06/24 10:07 O2 Del Method Room Air 06/06/24 10:07 O2 Flow Rate 2 06/06/24 03:27 General appearance: cooperative, lethargic, ill appearing and frail appearing Respiratory Common normals: normal respiratory effort, no use of accessory muscles and clear to auscultation bilaterally Effort & inspection: able to speak in complete sentences Cardio Common normals: regular rhythm, S1 normal heart sound and S2 normal heart sound Rate: tachycardic GI Common normals: soft to palpation, no hepatosplenomegaly and no masses Inspection: abdominal distension Auscultation: normoactive bowel sounds Palpation: soft and tender Details: LLQ Extremity Common normals: normal to inspection and full ROM Neuro Common normals: oriented x3, moves all extremities and no sensory deficits noted Psych Common normals: mental status grossly normal, thought process normal, denies homicidal ideation and denies suicidal ideation Internal Medicine - PN: Obj Da Labs Labs: Laboratory Results - last 24 hr 06/05/24 06/05/24 06/06/24 16:17 19:39 06:02 WBC 9.7 RBC 3.59 L Hgb 10.5 L Hct 33.0 L MCV 91.9 MCH 29.2 MCHC 31.8 RDW 14.8 Plt Count 119 L MPV 8.0 L Seg Neuts % (Manual) 73.0 Band Neutrophils % 7.0 H Lymphocytes % (Manual) 14.0 L Monocytes % (Manual) 4.0 Eosinophils % (Manual) 2.0 Basophils % (Manual) 0.0 L Neutrophils # (Manual) 7.08 H Band Neutrophils # 0.7 H Lymphocytes # (Manual) 1.35 Monocytes # (Manual) 0.38 Eosinophils # (Manual) 0.19 Basophils # (Manual) 0.00 Dohle Bodies 1+ Sodium 140 Potassium 3.8 Chloride 110 H Carbon Dioxide 23.2 Anion Gap 10.6 BUN 24.0 H Creatinine 0.99 Est GFR ( Amer) >60 Est GFR (Non-Af Amer) 55 L BUN/Creatinine Ratio 24.2 Glucose 94 Calcium 7.5 L Total Bilirubin 0.5 AST 15 ALT 24 Alkaline Phosphatase 159 H Total Protein 4.1 L Albumin 1.8 L Globulin 2.3 Albumin/Globulin Ratio 0.8 POC Glucose 125 H 111 H 06/06/24 11:09 WBC RBC Hgb Hct MCV MCH MCHC RDW Plt Count MPV Seg Neuts % (Manual) Band Neutrophils % Lymphocytes % (Manual) Monocytes % (Manual) Eosinophils % (Manual) Basophils % (Manual) Neutrophils # (Manual) Band Neutrophils # Lymphocytes # (Manual) Monocytes # (Manual) Eosinophils # (Manual) Basophils # (Manual) Dohle Bodies Sodium Potassium Chloride Carbon Dioxide Anion Gap BUN Creatinine Est GFR ( Amer) Est GFR (Non-Af Amer) BUN/Creatinine Ratio Glucose Calcium Total Bilirubin AST ALT Alkaline Phosphatase Total Protein Albumin Globulin Albumin/Globulin Ratio POC Glucose 163 H Urinary Catheter Management Urinary Catheter Management Straight: Cath placed during this visit: yes Urethral indwelling: No Insertion date: 06/03/24
--- NOTE | 2024-06-06 14:05 | OT.DAILY ---
Occupational Therapy Daily Note OT Inpatient Daily Visit Note Start: 06/05/24 09:49 Freq: Status: Active Protocol: Document 06/06/24 13:58 [id number] (Rec: 06/06/24 14:05 [id number]) OT Visit Details Time In/Time Out Time In 13:40 Time Out 13:55 OT Treatment Plan Subjective Subjective I am doing okay, could be doing better Objective Objective Pt awake and alert upon arrival, lying supine in bed. Min A to adjust to semi- sitting. Pt reports she does not have an appetite. Minimal discomfort in abdomen. She does not feel comfortable standing with generalized weakness, tolerance of 1xmin. Agreeable to self care tasks. With set up in bed, Pt is able to wash face and hair. Reports feeling better. Good core strength when reaching outside ARIEL to brush hair. After self care tasks she states she is feeling better, although she remains fatigued. Assessment Assessment Pt tolerated treatment well. She was agreeable with tasks with prompting. Continue OT POC. OT Billing Total Treatment Time Total treatment minutes 15 Total timed treatment Minutes 15 Mold Parter Timed Codes Self-Retirement Management minutes ( 15 minutes) Self-Retirement Management units 1
[2024-06-06 16:21] LABS: Glucometer 163 mg/dL (74-106)
[2024-06-06] MEDS: CEFTRIAXONE 1,000 MG in 0.9 % SODIUM CHLORIDE 50 ML 100 MG IV (16:58)
--- NOTE | 2024-06-06 18:54 | DIETREC ---
Pt c/o swallowing difficulty. Recommend swallow eval; also recommend 237 mL Ensure Original BID. Pt prefers chocolate. TigerText to Dr. Sparks [id number].
[2024-06-06 20:14] LABS: Glucometer 118 mg/dL (74-106)
[2024-06-06] MEDS: ACETAMINOPHEN 325 MG TABLET 650 MG PO (20:27)
[2024-06-06] MEDS: TRAZODONE HCL 50 MG TABLET PO (21:01)
[2024-06-06] MEDS: ATORVASTATIN CALCIUM 20 MG TABLET PO (21:01)
[2024-06-07] VITALS (14 sets, daily range): BP systolic 118–138; BP diastolic 74–78; PULSE 80–90; TEMP 36.8–37.2; O2SAT 90–95; BMI 28.7
[2024-06-07] MEDS: VANCOMYCIN HCL 7,500 MG/150 ML BOTTLE 125 MG PO ×3 (05:52→17:20)
[2024-06-07 06:34] LABS: Basophils Percent Auto 0.4 % (0.2-2.0); Eosinophils Absolute Auto 0.1 10^3/uL (0.0-0.7); Eosinophils Percent Auto 1.5 % (0.9-7.0); Hematocrit 34.4 % (36.0-48.0); Hemoglobin 11.2 g/dL (12.0-16.0); Immature Granulocytes Abs Auto 0.03 10^3/uL (0.00-0.03); Immature Granulocytes Pct Auto 0.4 % (0.0-0.5); Lymphocytes Absolute Auto 1.7 10^3/uL (1.2-3.8); Lymphocytes Percent Auto 20.5 % (20.5-60.0); Mean Corpuscular HGB Conc 32.6 g/dL (29.9-35.2); Mean Corpuscular Hemoglobin 29.8 pg (26.7-34.0); Mean Corpuscular Volume 91.5 fL (81.0-99.0); Mean Platelet Volume 8.3 fL (9.5-13.5); Monocytes Absolute Auto 0.5 10^3/uL (0.3-0.8); Monocytes Percent Auto 6.1 % (1.7-12.0); Neutrophils Absolute Auto 5.7 10^3/uL (1.4-6.5); Neutrophils Percent Auto 71.1 % (43.0-75.0); Platelet Count 127 10^3/uL (150-450); Red Blood Count 3.76 10^6/uL (4.20-5.40); Red Cell Distribution Width 14.6 % (11.0-15.0)
[2024-06-07 06:49] LABS: Alanine Aminotransferase 20 U/L (14-59); Albumin Globulin Ratio 0.8; Albumin Level 1.8 g/dL (3.4-5.0); Alkaline Phosphatase 103 U/L (46-116); Anion Gap 12.2; Aspartate Amino Transferase 13 U/L (15-37); BUN Creatinine Ratio 18.3; Bilirubin Total 0.5 mg/dL (0.2-1.0); Calcium 7.6 mg/dL (8.5-10.1); Carbon Dioxide 22.2 mmol/L (21.0-32.0); Chloride 110 mmol/L (98-107); Estimated GFR (African America >60 (>=60); Estimated GFR (Non-African Ame >60 (>=60); Globulin 2.4 g/dL; Glucose 103 mg/dL (74-106); Potassium 3.4 mmol/L (3.5-5.1); Sodium 141 mmol/L (136-145); Total Protein 4.2 g/dL (6.4-8.2)
[2024-06-07] MEDS: POTASSIUM CHLORIDE 10 MEQ ER TABLET 40 MEQ PO (08:58)
[2024-06-07] MEDS: METRONIDAZOLE/SODIUM CHLORIDE 500 MG/100 ML PREMIX 100 MG IV ×2 (08:58→16:31)
[2024-06-07] MEDS: OMEPRAZOLE 40 MG CAPSULE.DR PO (08:58)
[2024-06-07] MEDS: APIXABAN 5 MG TABLET PO (08:58)
[2024-06-07] MEDS: DILTIAZEM HCL 240 MG CAP.ER.24H PO (08:58)
[2024-06-07] MEDS: SOLIFENACIN SUCCINATE 10 MG TABLET PO (08:58)
[2024-06-07] MEDS: INSULIN NPH 70-30 100UNIT/ML VIAL (10ML) 10 UNIT SUBQ (09:07)
--- NOTE | 2024-06-07 09:32 | CM.NOTE ---
Rounds made with Dr. Sparks. Discharge to home today with Home Health.
--- NOTE | 2024-06-07 09:43 | REH.PTDLY ---
Physical Therapy Daily Note PT Daily Note/Assess Start: 06/06/24 10:13 Freq: Status: Active Protocol: Document 06/07/24 08:55 ANTOINETTE (Rec: 06/07/24 09:43 [id number]) Physical Therapy Daily Note/Assessment Time In 08:40 Time Out 08:55 Subjective Pt not too enthused to do therapy, but agreeable. Reports abdomen is still bothersome. Supposed to be DC today, but can't leave until tonight when son is off of work at 7 pm. Therapeutic Exercise Minutes (minutes) 6 Therapeutic Exercise Units 0 Therapeutic Exercise Treatment Instructed in B LE seated exs for improved leg strength and mobility with exs including AP , LAQ, hip abd, and marching 10x ea. Therapeutic Activity Minutes (minutes) 7 Therapeutic Activity Units 1 Therapeutic Activity Comments Pt performs supine to sit transfers Min A with pt holding onto therapist hand with L UE to help pull self up . SpO2 at 92% on 1 L of O2. Removed O2 for gait. Sit to stand transfers CGA. Gait training with RW 35 feet in room with pt returning to sit as she's fatigued. SpO2 with no O2 is at 89% after gait, rises to 91% after 1 min. Pt Ind with sit to supine transfers. Total Therapy Minutes 13 Total Physical Therapy Units 1 Daily Note Summary Pt fatigues with rx, does not want to exert herself too much . No complaints of increased pain during rx. Plan is for pt to return home later today
--- NOTE | 2024-06-07 10:11 | PM.DS1 ---
DS: Providers Provider Date of admission: 06/03/24 17:41 Primary care physician: Shaikh Clare MD Admitting clinician: Shaikh Clare Attending physician on admission: Shaikh Clare Consults: 06/03/24 17:54 Occupational Therapy Eval and Treat Routine Reason for consultation: Ambulatory dysfunction/weakness Physical Therapy Eval and Treat Routine Reason for consultation: Ambulatory dysfunction/weakness 06/05/24 07:10 Consult to Dietitian Routine Reason for consultation: malnutrition Attending physician on discharge: Shaikh Clare Discharging clinician: Shaikh Clare Anticipated date of discharge: 06/07/24 DS: Diagnosis Discharge Diagnosis (1) Septic shock: Assessment and plan: Resolved. Blood pressure is stable. (2) Sepsis: Assessment and plan: Resolved. Stable hemodynamics. Qualifiers: Acute renal failure type: unspecified Sepsis acute organ dysfunction status: with acute organ dysfunction Sepsis type: sepsis due to unspecified organism Severe sepsis acute organ dysfunction type: acute renal failure Severe sepsis shock status: with septic shock Qualified Code(s): A41.9 - Sepsis, unspecified organism; R65.21 - Severe sepsis with septic shock; N17.9 - Acute kidney failure, unspecified (3) Colitis: Assessment and plan: Mild abd pain. Poor PO intake overall but no nausea/vomiting. Stable for discharge on PO vancomycin/Cipro and flagyl for 5 more days. (4) Lactic acidosis: Assessment and plan: resolved (5) SHIRA (acute kidney injury): Assessment and plan: Renal fx back to baseline. (6) Paroxysmal A-fib: Assessment and plan: Remained in NSR. on Eliquis for stroke px. (7) Chronic diastolic heart failure: Assessment and plan: Mild volume overload during clinical stay and developed acute on chronic diastolic HF, requiring IV laisx. Euvolemic more or less today (8) Diabetes: Assessment and plan: C/w home medications. D/c glipizide to avoid risk of hypoglycemia. C/w NPH/regular insulin and jena cortes. Decrease insulin dose to 10 units q12 WIll need outpatient f/u with PCP to review her FSBS and adjust medications as needed Qualifiers: Diabetes mellitus complication detail: with polyneuropathy Diabetes mellitus complication status: with neurologic complications Diabetes mellitus director long term care insulin use: with director long term care use Diabetes mellitus type: type 2 Qualified Code(s): E11.42 - Type 2 diabetes mellitus with diabetic polyneuropathy; Z79.4 - director long term care (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 insulin (9) HTN (hypertension): Assessment and plan: BP is now stable. C/w home medications. Qualifiers: Hypertension type: primary hypertension Qualified Code(s): I10 - Essential (primary) hypertension (10) HLD (hyperlipidemia): Assessment and plan: Cw/ statin Qualifiers: Hyperlipidemia type: unspecified Qualified Code(s): E78.5 - Hyperlipidemia, unspecified (11) Oropharyngeal dysphagia: Assessment and plan: Oropharyngeal dysphagia reported and noted. Chronic, ongoing but worsened recently. (12) Moderate protein malnutrition: Assessment and plan: Poor PO intake, less than 75% of PO intake in past few days because of her illness. She has lost about 5% of bodyweight in 1-2 months. Evidence of muscle loss on exam. Added ensure to supplement PO intake. DS: Summary Hospital Course Hospital Course: 73 y o female presented with intractable nausea, vomiting and LLQ abdominal pain. Her pain was persistent and associated with abdominal distention but no diarrhea. Her work up in ED was consistent with severe sepsis sec to Colitis. She was admitted for septic shock sec to Colitis. She required aggressive IV resuscitation with no improvement in her BP and was subsequently transferred to ICU for Levophed infusion and close hemodynamic monitoring. Patient was treated with IV rocephin/flagyl and PO vancomycin for colitis/suspected C diff. She clinically improved during the course of admission with improvement in her leukocytosis, renal function and clinical symptoms including nausea/abdominal pain. Due to aggressive IV hydration, she developed volume overload and required IV lasix for it for 2 days. She never had diarrhea while inpatient and there was no way to test her for C diff. She will be discharged home on Ciprofloxacin/Flagyl and PO vancomycin to finish her treatment course as outpatient. Patient will benefit from outpatient speech eval for dysphagia. She will be discharged home with home health. Patient instructed to return to ED if she develops intractable nausea/vomiting or worsening abdominal pain/diarrhea. Status at Discharge Functional status at discharge: independent ambulation Overall status at discharge: patient is back to baseline Time Spent with Patient Time attestation: Total time spent providing and/or coordinating discharge services: Time spent: greater than 30 minutes Exam Constitutional Vital Signs, click to edit/add: Last Vital Signs Temp 98.3 F 06/07/24 03:44 Pulse 87 06/07/24 09:59 Resp 18 06/07/24 03:44 BP 118/74 06/07/24 03:44 Pulse Ox 90 L 06/07/24 03:57 O2 Del Method Nasal Cannula 06/07/24 03:57 O2 Flow Rate 1 06/07/24 03:57 General appearance: cooperative, lethargic and frail appearing Respiratory Common normals: normal respiratory effort, no use of accessory muscles and clear to auscultation bilaterally Effort & inspection: able to speak in complete sentences Cardio Common normals: regular rhythm, S1 normal heart sound and S2 normal heart sound Rate: tachycardic GI Common normals: soft to palpation, no hepatosplenomegaly and no masses Inspection: abdominal distension Auscultation: normoactive bowel sounds Palpation: soft and tender Details: LLQ Extremity Common normals: normal to inspection and full ROM Neuro Common normals: oriented x3, moves all extremities and no sensory deficits noted Psych Common normals: mental status grossly normal, thought process normal, denies homicidal ideation and denies suicidal ideation DS: Data Data Completed and Pending Labs on day of discharge: Labs from last 24 hours 06/07/24 06/06/24 06/06/24 06:20 20:12 16:20 WBC 8.0 RBC 3.76 L Hgb 11.2 L Hct 34.4 L MCV 91.5 MCH 29.8 MCHC 32.6 RDW 14.6 Plt Count 127 L MPV 8.3 L Neut % (Auto) 71.1 Lymph % (Auto) 20.5 [place] % (Auto) 6.1 Eos % (Auto) 1.5 Baso % (Auto) 0.4 Neut # (Auto) 5.7 Lymph # (Auto) 1.7 [place] # (Auto) 0.5 Eos # (Auto) 0.1 Baso # (Auto) 0.0 Abs Immat Gran (auto) 0.03 Imm/Tot Granulo (auto) 0.4 Sodium 141 Potassium 3.4 L Chloride 110 H Carbon Dioxide 22.2 Anion Gap 12.2 BUN 15.0 Creatinine 0.82 Est GFR ( Amer) >60 Est GFR (Non-Af Amer) >60 BUN/Creatinine Ratio 18.3 Glucose 103 Calcium 7.6 L Total Bilirubin 0.5 AST 13 L ALT 20 Alkaline Phosphatase 103 Total Protein 4.2 L Albumin 1.8 L Globulin 2.4 Albumin/Globulin Ratio 0.8 POC Glucose 118 H 163 H 06/06/24 11:09 WBC RBC Hgb Hct MCV MCH MCHC RDW Plt Count MPV Neut % (Auto) Lymph % (Auto) J[place]uld % (Auto) Eos % (Auto) Baso % (Auto) Neut # (Auto) Lymph # (Auto) J[place] # (Auto) Eos # (Auto) Baso # (Auto) Abs Immat Gran (auto) Imm/Tot Granulo (auto) Sodium Potassium Chloride Carbon Dioxide Anion Gap BUN Creatinine Est GFR ( Amer) Est GFR (Non-Af Amer) BUN/Creatinine Ratio Glucose Calcium Total Bilirubin AST ALT Alkaline Phosphatase Total Protein Albumin Globulin Albumin/Globulin Ratio POC Glucose 163 H Discharge Plan Discharge Disposition: Home Health Service Condition: Good Discharge Medications: New ciprofloxacin HCl 500 mg tablet 500 mg PO Q12H Qty: 10 0RF metronidazole 500 mg tablet 500 mg PO Q8H Qty: 15 0RF ondansetron 4 mg tablet,disintegrating 4 mg PO Q8H PRN (Reason: nausea and vomiting) 4 Days Qty: 10 0RF vancomycin 125 mg capsule 125 mg PO Q6H 5 Days Qty: 20 0RF Continued Eliquis 5 mg tablet 5 mg PO Q12H Trulicity 1.5 mg/0.5 mL pen injector 1.5 mg SUBCUT .WEEKLY atorvastatin 20 mg tablet 20 mg PO .QD diltiazem HCl 240 mg capsule,extended release 24hr 240 mg PO Q24H dapagliflozin propanediol [Farxiga] 10 mg tablet 10 mg PO .QD lisinopril 5 mg tablet 5 mg PO .QD metoprolol tartrate 50 mg tablet 50 mg PO Q12H pantoprazole 40 mg tablet,delayed release (DR/EC) 40 mg PO .Q24 trazodone 50 mg tablet 50 mg PO .QHS trospium 20 mg tablet 20 mg PO Q12H albuterol sulfate 90 mcg/actuation HFA aerosol inhaler 2 inh inhalation Q6H PRN (Reason: shortness of breath or wheezing) Changed Humulin 70/30 U-100 KwikPen 100 unit/mL (70-30) insulin pen 10 unit SUBCUT BID Qty: 0 0RF Discontinued glipizide 5 mg tablet 5 mg PO BID Activity: increase activity as tolerated Diet: advance to your usual diet Print Language: Sami Director [employer] Instructions: Discharge with [facility]. Phone number is [phone]. They should contact within 48 hours of discharge. Forms: Portal Instructions Follow Up Appointments: Jun.14 @ 11:30am with Delfina Ramirez NP [phone]
[2024-06-07] MEDS: ENSURE CLEAR 237 ML LIQUID PO (10:56)
[2024-06-07 11:20] LABS: Glucometer 74 mg/dL (74-106)
--- NOTE | 2024-06-07 11:34 | SWNOTE1 ---
2nd notice of Important Message from Medicare reviewed with pt, no questions at this time.
--- NOTE | 2024-06-07 11:35 | SWNOTE1 ---
YELENA faxed CRF, dc med rec, dc summary, PT notes from 06/06/24 and 06/07/[address]. Pt is discharging today with [address] YELENA advised pt that [facility] will be calling her or her son to coordinate time to come in home for assessment.
--- NOTE | 2024-06-07 13:30 | SWNOTE1 ---
YELENA spoke to Ayde from physical therapy in regards to the speech eval that was ordered. Speech therapist will not make it over today. After discussing options and calling home health, it was decided that [facility] will complete speech eval and speech was added to home health order. YELENA re-faxed home health order.
--- NOTE | 2024-06-07 15:42 | OT.DAILY ---
Occupational Therapy Daily Note OT Inpatient Daily Visit Note Start: 06/05/24 09:49 Freq: Status: Active Protocol: Document 06/07/24 15:34 [id number] (Rec: 06/07/24 15:42 [id number]) OT Visit Details Time In/Time Out Time In 15:10 Time Out 15:30 Pain In Pain Level 0 Pain Out Pain Level 0 OT Treatment Plan Subjective Subjective I just want to go home Objective Objective Pt lying in bed, awake and alert. Reports need for toileting. Mod A supine to sit on EOB. Mod SOB. Pt recommended to take deep breaths before STS. 3x attempts to stand from EOB, Mod A for stand pivot transfer due to weakness and fatigue. Able to maintain ARIEL with walker. Good seated balance on commode. Minimal voiding, passed BM at this time. Max A for tesfaye-care. Max A donning/ doffing LB garments. 3x VCs to maintain appropriate posture. 3x cues for transfer safety. Min A sit to supine. Assessment Assessment Pt agreeable and cooperative with all tasks. Pt is motivated to return home. Reports generalized weakness and fatigue. Continue OT POC. OT Information Manager Timed Codes Self-Intermediate Management minutes ( 20 minutes) Self-Intermediate Management units 2
[2024-06-07 16:32] LABS: Glucometer 134 mg/dL (74-106)
--- NOTE | 2024-06-08 14:14 | CM.DCFOLLOWU ---
Person spoke with: patient How are you feeling? well How is your pain?none Did you understand your discharge instructions?yes Do you have any questions about your discharge instructions?no Were you given any prescriptions at discharge?yes Were you able to get your prescriptions filled?yes Do you understand how to take your medications as ordered?yes Do you have any questions about your follow up appointment and do you plan to keep your follow up appointment? no questions, follow up reviewed Is there anything else that you would like to discuss?no Questions/Comments/Concerns/Other:none
== END 2024-06-07 19:21 | disposition home health service (06) | DRG 871 ==
LOC: ER 16:24 → MS 17:45 → ICU 06-04 02:39 → MS 06-04 18:34
PROVIDERS: Registered Nurse; Admitting Provider Internal Medicine; Emergency Provider Emergency Medicine; PCP Internal Medicine; Visit Provider Internal Medicine
DX: A41.9 Sepsis, unspecified organism (principal); R65.21 Severe sepsis with septic shock; N17.9 Acute kidney failure, unspecified; E87.20 Acidosis, unspecified; I50.32 Chronic diastolic (congestive) heart failure; E44.0 Moderate protein-calorie malnutrition; K52.9 Noninfective gastroenteritis and colitis, unspecified; I11.0 Hypertensive heart disease with heart failure; I48.0 Paroxysmal atrial fibrillation; E11.42 Type 2 diabetes mellitus with diabetic polyneuropathy; E78.5 Hyperlipidemia, unspecified; R13.12 Dysphagia, oropharyngeal phase; Z68.28 Body mass index [BMI] 28.0-28.9, adult; Z79.4 Long term (current) use of insulin; Z79.899 Other long term (current) drug therapy; Z90.710 Acquired absence of both cervix and uterus; Z90.49 Acquired absence of other specified parts of digestive tract; Z79.01 Long term (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 anticoagulants; Z79.85 Long-term (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 injectable non-insulin antidiabetic drugs
CPT/HCPCS: 36415; 71045; 74022; 74177; 80048; 80053; 80076; 81001; 82150; 82800; 82948; 83605; 83690; 83880; 85007; 85025; 85027; 87045; 87046; 87427; 87493; 93005; 94761; 96361; 96365; 96366; 96367; 96368; 96375; 96376; 97162; 97165; 97530; 97535; 99285; J0696; J1836; J1940; J2270; J2405; Q9967

== ENCOUNTER 2024-09-11 09:12 | Outpatient (OUT) | payer MEDICARE, MEDICAID, SELFPAY ==
--- NOTE | 2024-09-11 09:00 | CA_ITS ---
Patient Name: CHEY RON MR#: [id number] : 1950 Exam Date: 09/11/2024 Ordering Doctor: EDD WADE M.D. ECHOCARDIOGRAM REPORT PROCEDURE: CA ECHO DOPPLER COMPLETE INDICATIONS: Pericardial effusion COMPARISON: None. DESCRIPTION: COMPLETE ECHOCARDIOGRAM Real-time transthoracic echocardiography with 2D, M-mode, spectral and color flow Doppler performed. QUALITY: Technical quality was good. LEFT VENTRICLE: Normal chamber size. Mildly thickened septal wall. LV EF: Normal left ventricular ejection fraction, 60 to 65%. No regional wall motion abnormalities. DIASTOLIC: Grade I diastolic dysfunction. ATRIAL SEPTUM: Visually appears intact. LEFT ATRIUM: Moderate dilatation. RIGHT ATRIUM: Normal chamber size. RIGHT VENTRICLE: Normal chamber size. Normal right ventricular systolic function. TRICUSPID VALVE: Normal mobility and thickness. No stenosis with mild regurgitation. No evidence of pulmonary hypertension. RVSP 34 mmHg MITRAL VALVE: Normal mobility and thickness. No evidence of mitral valve stenosis. Mild mitral annular calcification. Trivial mitral regurgitation. AORTIC VALVE: Normal trileaflet appearance. Thickened aortic valve. Normal leaflet mobility. No evidence of aortic valve stenosis. No aortic regurgitation. AORTIC ROOT: Normal diameter and appearance. Ascending aorta is normal in size PULMONIC VALVE: Normal thickness and mobility. No stenosis. Mild regurgitation. PERICARDIUM: Trivial pericardial effusion. IVC: Normal size and Collapes with inspirations. PLEURA: CONCLUSION: Normal left ventricle systolic function without wall motion abnormalities, ejection fraction 60 to 65% Grade 1 diastolic dysfunction Normal right ventricle size and systolic function Normal right-sided pressures Mild tricuspid regurgitation Trivial pericardial effusion Adult Echocardiography Procedure Report Left Ventricle LVEDD (3.7 - 5.6 cm): 3.92 cm LVESD (2.2 - 4.0 cm): 2.96 cm LVIVS thickness (0.6 - 1.2 cm): 1.25 cm LVPW thickness (0.5 - 1.0 cm): 0.88 cm e': E - e': 13.10 LVOT Max Gradient: 1.99 mm[Hg] LVOT Area (cm2): 0.71 m/s Peak Velocity (LVOT): 0.71 m/s Mean Velocity (LVOT): 0.48 m/s LVOT Diameter 1.95 cm Left Ventricular Ejection Fraction: Left Atrium LA Volume Index (2D A2C): 52.03 ml/m2 Left Atrium Systolic Dimension: 2.70 cm Mitral Valve MV E to A Ratio: 0.99, 0.76 MV Max Gradient: MV Mean Gradient: Mitral Valve A-Wave Peak Velocity: Mitral Valve E-Wave Peak Velocity: Cardiovascular Orifice Area: Right Ventricle RV Internal Diastolic Dimension: Aorta AO Root Diam: 2.84 cm Ascending Ao Diam: 2.39 cm Aortic Valve AoV Area (Peak Raghu): 1.87 cm2, 1.87 cm2 AoV Area (VTI): 1.72 cm2, 1.72 cm2 Deceleration [place]: Pressure Half-Time: Peak Velocity(Antegrade Flow): 1.13 m/s Peak Gradient(Antegrade Flow): 5.12 mm[Hg] Mean Velocity(Antegrade Flow): 0.73 m/s Mean Gradient(Antegrade Flow): 2.54 mm[Hg] Velocity Time Integral: 26.14 cm Tricuspid Valve Peak Velocity (Regurgitant Flow): 2.75 m/s, 2.77 m/s Peak Velocity: Pulmonic Valve Mean Gradient: 1.77 mm[Hg] Mean Velocity: 0.62 m/s Peak Velocity: 0.92 m/s, 1.08 m/s Peak Gradient: 4.63 mm[Hg], 3.41 mm[Hg] Right Atrium Right Atrium Systolic Pressure: Dictated by: Trisha Horne MD on 09/11/2024 at 18:51 Approved by: Trisha Horne MD on 09/11/2024 at 19:00
== END 2024-09-11 09:13 | disposition home or self-care (01) ==
LOC: CARD 09:13
PROVIDERS: Visit Provider Internal Medicine Cardiovascular Disease
DX: I31.39 Other pericardial effusion (noninflammatory) (principal)
CPT/HCPCS: 93306

== ENCOUNTER 2024-10-14 09:49 | Outpatient (OUT) | payer MEDICARE, MEDICAID, SELFPAY ==
--- OUTSIDE RECORDS SUMMARY | 2024-10-14 09:53 | XMS_ITS | CCD ---
Author Organization [facility] Inform ion Partnership [facility] Care Team Providers Care Landscape Management Technician Name Role Phone Lawanda Alvarez Unavailable Shaikh Sparks MD Primary Care Provider Demetrio Joseph Primary Care Provider Hood Patel Unavailable Shaikh Sparks MD Primary Care Provider MD Hood Patel Attending Provider [phone] MD Amy Sparks Primary Care Provider [phone] FAWWAD, WATERS H Consulting Unavailable FAWWAD, WATERS [...] Admitting Unavailabl e PATRICE GRAYSON Consulting Unavailable DANIEL, DR ESTUARDO Hartman Consulting Unavailable GLORIAEREBethanie, DR ESTUARDO Hartman Attending Unavailable DANIEL, DR ESTUARDO Hartman Admitting Unavailable FAWWAD, WATERS H Primary Care Unavailable ZHAO OLIVER Consulting Unavailable TRANG, CIARRA Consulting Unavailable NGOZI NELSON Consulting Unavailable AA, [...] Admitting Unavailable FAWWAD, WATERS Primary Care Physician [phone] Shante Shukla Attending Unavailable FAWWAD, WATERS Referring Unavailable Orzech Shante X Attending Unavailable Orzech, Shante X Admitting Unavailable Orzech, Shante X Attending Unavailable Orzech, Shante X Attending Unavailable Orzech, Shante X Admitting Unavailable Orzech, Shante X Attending Unavailable Estuardo Sanchez MD Primary Care Provider [phone] Ashley GARCIA, Tj Unavailable ALGHOTHANI, MOHAMAD Attending Unavailable ALGHOTHANI, MOHAMAD Attending Unavailable ALGHOTHANI, MOHAMAD Attending Unavailable SHAIKH SPAKRS Attending Unavailable SHAIKH SPARKS Attending Unavailable TJ RAMIREZ Attending TJ Main Attending CHRISTOPHER Mcmahon Attending Unavailable TJ RAMIREZ Referring Unavailyaneth e Allergies Allergy Classification Reported Allergen(s) Allergy Type Date of Onset Reaction(s) Facility Acetaminophen / oxyCODONE (1 source) Acetaminophen / oxyCODONE; Translations: [acetaminophen-ox ycodone] Drug Allergy Sleep terror disorder (disorder) [facility] Anticholinergics (1 source) tiotropium; Translations: [tiotropium] Drug Allergy Pharyngeal swelling (finding), Tongue swelling (finding) [facility] Opioid Agonists (1 source) oxyCODONE; Translations: [oxycodone] Drug Allergy Sleep terror disorder (disorder) [facility] (13 sources) Acetaminophen / oxyCODONE; Translations: [acetaminophen-ox ycodone] Drug Allergy 03-31-20 16 Mental Status Change, Anaphylaxis, Sleep terror disorder (disorder) [facility] (9 sources) tiotropium; Translations: [tiotropium] Drug Allergy anaphylaxis, Pharyngeal swelling (finding), Tongue swelling (finding) [facility] (7 sources) Budesonide / formoterol Drug Allergy 03-31-20 22 Other: See Comments [facility] (20 sources) tiotropium Drug Allergy 03-31-20 16 Unknown [facility] (20 sources) oxyCODONE; Translations: [Oxycodone] Drug Allergy 05-01-20 19 Sleep terror disorder (disorder), Anxiety [facility] (4 sources) Acetaminophen / oxyCODONE; Translations: [Percocet] Drug Allergy 08-02-20 15 [facility] (14 sources) Acetaminophen / oxyCODONE; Translations: [OXYCODONE-ACETAM INOPHEN] Drug Allergy 08-12-20 15 Anxiety, Unknown, Anaphylaxis, Hallucinations [facility] (13 sources) Budesonide-Formot fernando Fumarate Drug Allergy 08-17-20 23 Swelling [facility] Medications Current Medications Medication Drug Class(es) Dates Sig (Normalized) Sig (Original) [id number] 200 actuat albuterol 0.09 mg/actuat metered dose inhaler (20 sources) beta2-Adrenergic Agonist Start: 11-02-2022 take 2 puff(s) by inhalation every six hours albuterol HFA 90 mcg/act inhaler Inhale 2 puffs every 6 (six) hours if needed 11/02/2022 Active Start: 01-24-2019 take 1 puff(s) by in halation every four to six hours Albuterol Sulfate [...] as needed. apixaban 5 mg oral tablet (16 sources) Factor Xa Inhibitor Start: 09-26-2018 End: [...] 28, 2018 10:19am May 12, 2022 8:02am Continuous Glucose Pot Pusher (FreeStyle Toby 3 [place]) device (12 sources) Start: 05-03-2024 Continuous Glucose Pot Pusher (FreeStyle Toby 3 [place]) device Indications: Type 2 diabetes mellitus with stage 3a chronic kidney disease, with long-term current use of insulin ([facility]) ([facility]) , Type 2 diabetes mellitus without complications ([facility]) 1 each Daily 1 each 05/03/2024 Active Continuous Glucose Sensor (FreeStyle Toby 3 Plus Sensor) [facility] (4 sources) Start: 05-03-2024 End: 05-31-2024 Continuous Glucose Sensor (FreeStyle Toby 3 Plus Sensor) [facility] Indications: Type 2 diabetes mellitus with stage 3a chronic kidney disease, with long-term current use of insulin ([facility]) ([facility]) , Type 2 diabetes mellitus without complications ([facility]) 1 each Daily for 28 days 2 each 05/03/2024 05/31/2024 Active dapagliflozin 10 mg oral tablet (18 sources) Sodium-Glucose Cotransporter 2 Inhibitor Start: 11-25-2023 End: 05-23-2024 take 1 tablet by mouth once daily Farxiga 10 MG Indications: Type 2 diabetes mellitus with stage 3a chronic kidney disease, with long-term current use of insulin ([facility]) ([facility]) TAKE 1 TABLET BY MOUTH EVERY DAY 30 tablet 5 05/08/2024 Active 24 hr dilTIAZem hydrochloride 240 mg extended release oral capsule (20 sources) Calcium Channel Manuela Start: 07-10-2024 take 1 capsule by mouth once daily dilTIAZem CD (Cardizem CD) 240 MG 24 hr capsule Indications: Other forms of dyspnea TAKE 1 CAPSULE BY MOUTH EVERY DAY 90 capsule 1 07/10/2024 Active Start: 12-21-2023 take 1 capsule by [facility] once daily dilTIAZem CD (Cardizem CD) 240 MG 24 hr capsule Indications: Other forms of dyspnea TAKE 1 CAPSULE BY MOUTH EVERY DAY 90 capsule 1 12/21/2023 Active Start: 05-12-2022 take 240 mg by mouth once alejandro y Diltiazem Hcl Active 240 MG PO Daily [...] 26, 2019 1:07pm take 1 capsule by [facility] once daily, then take 1 capsule by mouth every twenty-four hours dilTIAZem CD (CARDIZEM CD) 240 mg 24 hr capsule Take 240 mg by mouth once daily. 0 Active Comment on above: Take 240 mg by mouth once daily. 0.5 ml dulaglutide 3 mg/ml auto-injector (20 sources) GLP-1 Receptor Agonist Start: 3 End: 5 inject 1.5 mg by subcutaneous injection every week dulaglutide (Trulicity) 1.5 MG/0.5ML solution pen-injector Indications: Type 2 diabetes mellitus with diabetic autonomic (poly)neuropathy (CMS/HCC) INJECT 1.5 MG UNDER THE SKIN 1 (ONE) TIME PER WEEK 0.5 mL 3 05/08/2024 11/04/2024 Active Start: 01-26-2019 inject 1.5 mg by sub [...] PO Twice daily January 24, 2019 12:00am Fluticasone-Umecl idin-Vilanter (1 source) Anticholinergic, Corticosteroid, beta2-Adrenergic Agonist Start: 09-26-2018 take 1 puff(s) by inhalation once daily Fluticasone-Umec lidin-Vilanter Active 1 PUFF INHALATION Daily September 26, 2018 1:00am gabapentin 300 mg oral capsule (4 sources) Anti-epileptic Agent Start: 01-24-2019 take 300 mg by mouth twice daily Gabapentin Active 300 MG PO Twice daily January 24, 2019 12:00am Start: 09-26-2018 End: 09-28-2018 Gabapentin Discontinued Tung rojas 2018 1:00am September 28, 2018 10:17am take 1 capsule by [facility] every twenty-four hours Gabapentin 300 MG 1 capsule Orally Once a day Active glipiZIDE 5 mg oral tablet (16 sources) Sulfonylurea Start: 02-29-2024 End: 10-07-2024 take 1 tablet by mouth in the morning glipiZIDE (Glucotrol) 5 MG tablet Indications: 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 TAKE BEFORE MEALS. 180 tablet 1 04/10/2024 10/07/2024 Active 3 ml insulin aspart, human 100 unt/ml pen injector (1 source) Insulin Analog Start: 08-15-2024 End: 02-11-2025 insulin aspart (NovoLOG FLEXPEN) 100 UNIT/ML pen Indications: Type 2 diabetes mellitus with diabetic autonomic (poly)neuropathy (CMS/HCC) Inject 5 Units under the skin in the morning and 5 Units at noon and 5 Units in the evening. Inject before meals. 13.5 mL 1 08/15/2024 02/11/2025 Active 3 ml insulin degludec 100 unt/ml pen injector (1 source) Insulin Analog Start: 08-15-2024 End: 02-11-2025 inject 10 [IU] by subcutaneous injection at bedtime insulin degludec (Tresiba FlexTouch) 100 UNIT/ML injection Indications: Type 2 diabetes mellitus with diabetic autonomic (poly)neuropathy (CMS/HCC) Inject 10 Units under the skin at bedtime 9 mL 1 08/15/2024 02/11/2025 Active 3 ml insulin isophane, human 70 unt/ml / insulin, regular, human 30 unt/ml pen injector (20 sources) Insulin Start: 08-01-2024 End: 01-28-2025 inject 10 [IU] by subcutaneous injection in the morning insulin NPH-insulin regular (HumuLIN 70/30 KWIKPEN) (70-30) 100 UNIT/ML injection Indications: Type 2 diabetes mellitus with diabetic autonomic (poly)neuropathy (CMS/HCC) Inject 10 Units under the skin in the morning and 10 Units in the evening. Inject before meals. 27 mL 1 08/01/2024 08/15/2024 Discontinued (Formulary change) Start: 02-17-2024 End: 08-15-2024 inject 15 [IU] by subcutaneous injection in the morning insulin NPH-insulin regular (HumuLIN 70/30 KWIKPEN) (70-30) 100 UNIT/ML injection Indications: Type 2 diabetes mellitus with diabetic autonomic (poly)neuropathy ([facility]) INJECT 15 UNITS UNDER THE SKIN IN THE MORNING AND 15 UNITS IN THE EVENING. INJECT BEFORE MEALS. 27 mL 1 02/17/2024 08/01/2024 Discontinued (Dose adjustment) Start: 05-03-2019 End: 05-04-2019 inject 15 [IU] [...] 25, 2019 12:00am March 04, 2019 3:25pm inject 10 [IU] by renee bcutaneous injection in the morning insulin NPH-insulin regular (NovoLIN) (70-30) 100 UNIT/ML injection Inject 10 Units under the skin in the morning and 10 Units in the evening. Inject before meals. Active Iron (2 sources) take 1 tablet by mouth once daily Iron 240 (27 Fe) MG 1 tablet Orally Once a day Active lisinopril 10 mg oral tablet (20 sources) Angiotensin Converting Enzyme Inhibitor Start: 4 take 1 tablet by mouth once daily lisinopril 10 MG tablet Indications: Primary hypertension (CMS/HCC) TAKE 1 TABLET BY MOUTH EVERY DAY 90 tablet 1 12/12/2023 Active Start: 05-12-2022 take 10 mg by mouth [...] Take 10 mg by mouth once daily. lovastatin 20 mg oral tablet (10 sources) [...] 1,000 mg by ruy th twice daily. ondansetron 4 mg oral tablet (1 source) Serotonin-3 Receptor Antagonist take 1 tablet by mouth every eight hours as needed for nausea and vomiting ondansetron (Zofran) 4 MG tablet Take 4 mg by mouth every 8 (eight) hours if needed for nausea or vomiting Active oxybutynin chloride 5 mg oral tablet (12 sources) Cholinergic Muscarinic Antagonist Start: 9 take 1 tablet by mouth twice daily [...] mg by mouth t hree times daily. pantoprazole 40 mg delayed release oral tablet (20 sources) Proton Pump Inhibitor Start: 02-29-20 24 take 1 tablet by mouth once daily pantoprazole (ProtoNix) 40 MG EC tablet Indications: Gastroesophageal reflux disease without esophagitis TAKE 1 TABLET BY MOUTH EVERY DAY 90 tablet 1 03/08/2024 Active Start: 05-01-2019 take 40 mg by mouth once daily Pantoprazole Active 40 MG PO Daily May 01, 2019 12:00am Start: 09-26-2018 End: 01-26-2019 take 40 mg by mouth once daily Pantoprazole (Protonix) [address] For Susp In Packet Discontinued 40 MG PO Daily September 26, 2018 1:00am January 26, 2019 1:04pm Comment on above: Take 40 mg by mouth once daily. polysaccharide iron complex 391 mg oral [...] Daily at bedtime January 24, 2019 12:00am traZODone hydrochloride 50 mg oral tablet (20 sources) Serotonin Reuptake Inhibitor Start: 02-29-2024 take 1 tablet by mouth once daily at bedtime for depression traZODone (Desyrel) 50 MG tablet Indications: Encounter for screening for depression TAKE 1 TABLET BY MOUTH EVERYDAY AT BEDTIME 90 tablet 1 03/15/2024 Active Start: 03-14-2019 take 50 mg by mouth at bedtime Trazodone Active 50 MG PO Bedtime March 14, 2019 12:00am Start: 01-24-2019 End: 01-26-2019 take 50 mg by mouth once daily Trazodone Discontinued 50 MG PO Daily January 24, 2019 12:00am January 26, 2019 1:07pm Comment on above: Take 50 mg by mouth daily at bedtime. Trelegy Ellipta 100 mcg (2 sources) take 1 puff(s) by inhalation once daily Trelegy Ellipta 100 mcg 1 puff Inhalation Once a day Active trospium chloride 20 mg oral tablet (17 sources) Cholinergic Muscarinic Antagonist Start: 02-29-20 24 End: 05-04-20 25 take 1 tablet by mouth twice daily trospium 20 mg oral tablet 20 mg = 1 tab(s), Oral, BID, X 90 day(s), # 180 tab(s), Refills(s) 3, Pharmacy: [facility]/pharmacy #[id number], 155, cm, 05/09/24 9:05:00 EDT, Height/Length Dosing, 66.5, kg, 05/09/24 9:05:00 EDT, Weight Dosing Start Date: 05/09/24 Stop Date: 05/04/25 Status: Ordered vitamin b12 1 mg oral tablet (8 sources) Vitamin B12 Start: 05-12-20 take 1 tablet by mouth once daily Cyanocobalamin (Vitamin B-12) (Vitamin B-12) 1,000 mcg tablet Active 1000 MCG PO Daily May 12, 2022 12:00am take 1 tablet by mouth once alejandro y cyanocobalamin (VITAMIN B-12) 1,000 mcg tab Take 1,000 mcg by mouth once daily. 0 Active Comment on above: Take 1,000 mcg by mo ut once daily. Completed/Discontinued Medications Medication Drug Class(es) Dates Sig (Normalized) Sig (Original) atorvastatin 20 mg oral tablet (19 sources) HMG-CoA Reductase Inhibitor Start: 08-16-2023 End: 05-03-2024 take 1 tablet by mouth once daily in the morning atorvastatin (Lipitor) 20 MG tablet Indications: Mixed hyperlipidemia (CMS/HCC) TAKE 1 TABLET BY MOUTH EVERY DAY IN THE MORNING 90 tablet 1 12/14/2023 05/03/2024 Discontinued (Duplicate order) Continuous Glucose Sensor (FreeStyle Toby 14 Day Sensor) misc (3 sources) Start: 04-18-2024 End: 05-03-2024 Continuous Glucose Sensor (FreeStyle Toby 14 Day Sensor) [facility] Indications: Type 2 diabetes mellitus without complications (CMS/HCC) 1 each by Other route Daily for 28 days 2 each 5 04/18/2024 05/03/2024 Discontinued Start: 04-18-2024 End: 05-16-2024 Continuous Glucose Sensor (F reeStyle Toby 14 Day Sensor) [facility] Indications: Type 2 diabetes mellitus without complications (CMS/HCC) 1 each by Other route Daily for 28 days 2 each 5 04/18/2024 05/16/2024 Active DilTIAZem (Eqv-Cardizem CD) 240 mg/24 hours oral capsule, extended release (5 sources) Start: 02-29-2024 DilTIAZem (Eqv -Cardizem CD) 240 mg/24 hours oral capsule, extended release 90 EA, 0 Refill(s), TAKE 1 CAPSULE BY MOUTH EVERY DAY, Refills(s) 0 Start Date: 02/29/24 Status: Ordered ferrous sulfate 324 mg delayed release oral tablet (19 sources) Start: 09-14-2023 End: 08-01-2024 take 1 tablet by mouth once daily ferrous sulfate 324 (65 Fe) MG EC tablet Indications: Anemia due to chronic blood loss TAKE 1 TABLET BY MOUTH EVERY DAY 90 tablet 09/14/2023 08/01/2024 Discontinued (Med list cleanup) Start: 05-12-2022 take 324 mg by mouth once alejandro y Ferrous Sulfate Active 324 MG PO Daily May 12, 2022 12:00am take 324 mg by mouth once daily at breakfast ferrous sulfate EC 324 mg (65 mg iron) TbEC Take 324 mg by mouth daily with breakfast. 0 Active Comment on above: Take 324 mg by mouth daily with breakfast. 3 ml insulin aspart protamine, human 70 unt/ml / insulin aspart, human 30 unt/ml pen injector (1 source) Insulin Analog Start: 9 End: 9 Insulin Asp Prt-Insulin Aspart (Novolog Mix 70-30flexpen U-100) 100 unit/mL (70-30) insulin pen Discontinued September 26, 2018 1:00am September 28, 2018 10:17am 3 ml insulin isophane, human 100 unt/ml pen injector (2 sources) Start: 9 End: 9 inject 36 [IU] by subcutaneous injection once [...] units with lunch, Dinner and at HS insulin NPH hum/reg insulin hm (HUMULIN 70/30 [...] 15 units Subcutaneous three times daily Not-Taking metoprolol tartrate 50 mg oral tablet (20 sources) beta-Adrenergic Manuela Start: 12-21-2023 End: 05-03-2024 metoprolol tartrate (Lopressor) 50 MG tablet 180 EA, 0 Refill(s), TAKE 1 TABLET BY MOUTH EVERY 12 HOURS, Refills(s) 0 02/29/2024 05/03/2024 Discontinued (Duplicate order) Start: 05-12-2022 take 50 mg by mouth [...] capsule (1 source) Proton Pump Inhibitor Start: 01-26-2019 End: 05-03-2019 take 40 mg by mouth once daily Omeprazole Discontinued 40 MG PO Daily January 26, 2019 12:00am May 03, 2019 3:37pm Problems Active Problems Problem Classification Problem Date Documented Da te Episodic/Chronic Acute and unspecified renal failure (2 sources) Injury of kidney; Translations: [Acute kidney failure, unspecified] 09-26-2018 Episodic Administrative/social admission (1 source) Patient encounter status; Translations: [Dietary counseling and surveillance] 08-15-2024 Episodic Asthma (12 sources) Asthma; Translations: [Unspecified asthma, uncomplicated] 05-03-2024 Chronic Cardiac dysrhythmias (20 sources) Atrial fibrillation; Translations: [Unspecified atrial fibrillation] Onset: 2 05-12-2022 Chronic Chronic kidney disease (20 sources) Chronic kidney disease stage 3; Translations: [Stage 3 chronic kidney disease] Onset: 4 01-24-2019 Chronic Chronic obstructive pulmonary disease and bronchiectasis (18 sources) Chronic obstructive lung disease; Translations: [Chronic obstructive pulmonary disease, unspecified] Onset: 2 01-24-2019 Chronic Coagulation and hemorrhagic disorders (4 sources) Acquired coagulation factor deficiency; Translations: [Acquired coagulation factor deficiency] Onset: 0 01-24-2019 Chronic Congestive heart failure; nonhypertensive (1 source) Chronic diastolic (congestive) heart failure; Translations: [CHRONIC DIASTOLIC HEART FAILURE] Onset: 2 Chronic Deficiency and other anemia (20 sources) Iron deficiency anemia due to blood loss; Translations: [Iron deficiency anemia secondary to blood loss (chronic)] Onset: 2 Chronic Deficiency and other anemia (19 sources) Anemia due to chronic blood loss; Translations: [Iron deficiency anemia secondary to blood loss (chronic)] Onset: 3 02-23-2024 Chronic Deficiency and other anemia (1 [...] disturbance] 05-02-2019 Chronic Diabetes mellitus with complications (20 sources) Neuropathy due to diabetes mellitus; Translations: [Type 2 diabetes mellitus with diabetic neuropathy, unspecified] Onset: 2 01-24-2019 Chronic Diabetes mellitus without complication (18 sources) Type 2 diabetes mellitus without complication; Translations: [Diabetes mellitus without mention of complication, type II or unspecified type, not stated as uncontrolled] Onset: 1 Chronic Diabetes mellitus without complication (10 sources) Acute hyperglycemia; Translations: [Hyperglycemia, unspecified] Onset: 4 03-02-2019 Episodic Diseases of white blood cells (1 source) Leukocytosis; Translations: [Elevated white blood cell count, unspecified] 05-02-2019 Chronic Disorders of lipid metabolism (20 sources) Mixed hyperlipidemia; Translations: [Mixed hyperlipidemia] Onset: 1 01-24-2019 Chronic Esophageal disorders (20 sources) Gastroesophageal reflux disease; Translations: [Gastro-esophageal reflux disease without esophagitis] Onset: 2 03-17-2019 Chronic Essential hypertension (20 sources) Hypertensive disorder; Translations: [Essential (primary) hypertension] Onset: 2 01-24-2019 Chronic Fluid and electrolyte disorders (3 sources) Metabolic acidosis; Translations: [Acidosis] 03-16-2019 Episodic Genitourinary symptoms and ill-defined conditions (20 sources) Mixed incontinence; Translations: [Female stress incontinence] Onset: 4 Chronic Genitourinary symptoms and ill-defined conditions (18 sources) Nocturia; Translations: [Nocturia] Onset: 4 Episodic Hypertension with complications and secondary hypertension (3 sources) Hypertensive heart disease with heart failure; Translations: [Hypertensive heart disease without heart failure] Onset: 2 Chronic Immunizations and screening for infectious disease (2 sources) Needs influenza immunization; Translations: [Encounter for immunization] 08-01-2024 Episodic Leukemias (20 sources) Chronic lymphoid leukemia, disease; Translations: [Chronic lymphocytic leukemia of B-cell type not having achieved remission] Onset: 6 03-31-2016 Chronic Nausea and vomiting (1 source) Vomiting; Translations: [Vomiting, unspecified] 03-14-2019 Episodic Noninfectious gastroenteritis (1 source) Acute gastroenteritis; Translations: [Noninfective gastroenteritis and colitis, unspecified] 03-14-2019 Episodic Nutritional deficiencies (1 source) Vitamin D deficiency; Translations: [Vitamin D deficiency, unspecified] 08-15-2024 Chronic Nutritional deficiencies (1 source) Iron deficiency; Translations: [Iron deficiency] 01-24-2019 Episodic Other and ill-defined cerebrovascular disease (1 source) Cerebrovascular disease, unspecified; Translations: [CEREBROVASCULAR DISEASE UNSPECIFIED] Onset: 2 Chronic Other circulatory disease (2 sources) Low blood pressure; Translations: [Hypotension, unspecified] 03-14-2019 Episodic Other diseases of bladder and urethra (2 sources) Detrusor overactivity; Translations: [Overactive bladder] Onset: 4 Chronic Other diseases of bladder and urethra (3 sources) Overactive bladder 04-04-2024 Chronic Other diseases of bladder and urethra (4 sources) Urethral stricture; Translations: [Unspecified urethral stricture, female] Onset: 4 03-05-2024 Episodic Other endocrine disorders (1 source) Hypoglycemia; Translations: [Hypoglycemia, unspecified] 08-15-2024 Chronic Other gastrointestinal disorders (1 source) Swallowing painful; Translations: [Dysphagia, unspecified] 05-02-2019 Episodic Other gastrointestinal disorders (1 source) Diarrhea; Translations: [Diarrhea, unspecified] 03-14-2019 Episodic Other hereditary and degenerative nervous system conditions (2 sources) Impaired cognition; Translations: [Mild cognitive impairment, so stated] Chronic Other hereditary and degenerative nervous system conditions (19 sources) Restless legs; Translations: [Restless legs syndrome] Onset: 4 03-17-2019 Chronic Other hereditary and degenerative nervous system conditions (1 source) Restless legs syndrome; Translations: [RESTLESS LEGS SYNDROME] Onset: 2 Chronic Other nervous system disorders (1 source) Metabolic encephalopathy; Translations: [Metabolic encephalopathy] 09-26-2018 Chronic Other nervous system disorders (2 sources) Unsteady gait; Translations: [Unsteadiness on feet] Episodic Other nutritional; endocrine; and metabolic disorders (1 source) Obesity caused by energy imbalance; Translations: [Class 1 obesity due to excess calories with serious comorbidity and body mass index (BMI) of 31.0 to 31.9 in adult] 08-15-2024 Chronic Residual codes; unclassified (4 sources) Sleep apnea; [...] [PERSONAL HISTORY OF COVID-19] Onset: 2 Unclassified (3 sources) Asymptomatic microscopic hematuria 05-09-2024 Unclassified (1 source) Other pericardial effusion (noninflammatory); [...] fatigue; Translations: [OTHER FATIGUE] Onset: 01-28-2022 Episodic Mood disorders (13 sources) Mood disorders Onset: 08-17-2023 08-17-2023 Nonspecific chest pain (4 sources) Chest pain, unspecified; Translations: [CHEST PAIN UNSPECIFIED] Onset: 12-22-2021 Episodic Other aftercare (1 source) 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; Translations: [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] Onset: 01-28-2022 Episodic Other aftercare (1 source) Other long-term (current) drug therapy; Translations: [OTH NURSING HOME CURRENT DRUG THERAPY] Onset: 12-24-2021 Episodic Other aftercare (1 source) 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; Translations: [NURSING HOME USE ORAL HYPOGLYCEMIC DX] Onset: 12-24-2021 Episodic Other aftercare (1 source) 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; Translations: [NURSING HOME CURRNT USE ANTICOAGULANTS] Onset: 12-24-2021 Episodic Other and unspecified benign neoplasm (1 source) Benign neoplasm of transverse colon; Translations: [BENIGN NEOPLASM OF TRANSVERSE COLON] Onset: 09-15-2021 Episodic Other and unspecified benign neoplasm (1 source) Benign neoplasm of sigmoid colon; Translations: [BENIGN NEOPLASM OF SIGMOID COLON] Onset: 09-15-2021 Episodic Other circulatory disease (19 sources) History of cerebrovascular accident; Translations: [Personal history of transient ischemic attack (TIA), and cerebral infarction without residual deficits] Onset: 01-04-2024 03-17-2019 Episodic Other circulatory disease (1 source) Personal [...] Test Name Value Interpretation Reference Range Facility Glucose (Bld) [Mass/Vol]Orde red By: Nalini Carrero on 08-15-2024 Glucose Blood, POC 249 mg/dL [facility] No Panel InformationOrdered By: Nalini Carrero on 08-15-2024 [facility] POCT glycosylated hemoglobin (Hb A1C) docked deviceon 08-15-2024 HbA1c (Bld) [Mass fraction] 7 % [facility] Healthcare Office Visiton 08-04-2024 Follow-up visit [id number] Robina Ron 1950 F Date Provider Department Center 08/04/2024 3848-[facility] Family History Problem Relation Age of Onset Pulmonary embolism Father Family Status - Relation Status Age at Father Level of Service:24796 DE OFFICE/OUTPATIENT ESTABLISHED LOW MDM 20 MIN [facility] HbA1c (Bld) [Mass fraction]o n 08-01-2024 Interpretation and review of laboratory results Abnormal [facility] Laboratory - Hematology and Cell countson 08-01-2024 HbA1c (Bld) [Mass fraction] 6.6 % [facility] FACTOR V LEIDEN MUTATIONon 0 06-05-2024 Interpretation and review of laboratory results Abnormal [facility] FACTOR V LEIDEN MUTATION Comment Abnormal . 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 See Additional Clinical Information and Comments. Additional Clinical Information: Venous thromboembolism is a multifactorial disease influenced by genetic, environmental, and circumstantial risk factors. The c.1601G>A (p. [id number]) variant in the F5 gene, commonly referred to as Factor V Leiden, is a genetic risk factor for venous thromboembolism. Heterozygous carriers of this variant have a 6- to 8-fold increased risk for venous thromboembolism. Individuals homozygous for this variant (ie, with a copy of the variant on each chromosome) have an approximately 80-fold increased risk for venous thromboembolism. Individuals who carry both a c.*97G>A variant in the F2 gene and Factor V Leiden have an approximately 20-fold increased risk for venous thromboembolism. Risks are likely to be even higher in more complex genotype combinations involving the F2 c.*97G>A variant and Factor V Leiden (PMID: 47465973). Additional risk factors include but are not limited to: deficiency of protein C, protein S, or antithrombin III, age, male sex, personal or family history of deep vein thromboembolism, smoking, surgery, prolonged immobilization, malignant neoplasm, tamoxifen treatment, raloxifene treatment, oral contraceptive use, hormone replacement therapy, and . Management of thrombotic risk and thrombotic events should follow established guidelines and fit the clinical circumstance. This result cannot predict the occurrence or recurrence of a thrombotic event. Comment: Genetic counseling is recommended to discuss the potential clinical implications of positive results, as well as recommendations for testing family members. Genetic Coordinators are available for health care providers to discuss results at [phone] Test Details: Variant Analyzed: c.1601G>A (p. [id number]), referred to as Factor V Leiden Methods/Limitations: DNA analysis of the F5 gene (NM_000130.5) was performed by PCR amplification followed by restriction enzyme analysis. The diagnostic sensitivity is >99%. Results must be combined with clinical information for the most accurate interpretation. Molecular-based testing is highly accurate, but as in any laboratory test, diagnostic errors may occur. False positive or false negative results may occur for reasons that include genetic variants, blood transfusions, bone marrow transplantation, somatic or tissue-specific mosaicism, mislabeled samples, or erroneous representation of family relationships. This test was developed and its performance characteristics determined by [facility]. It has not been cleared or approved by the Food and Drug Administration. References: Gualberto Bowser, Vika LOPEZ, Cullen R, Gary WW, Justin JH; ACMG Professional Practice and Guidelines Committee. Addendum: [employer] consensus statement on factor V Leiden mutation testing. Jennifer Med. 2020Nov 15. doi: 10.1038/g46864-401-91326-j. PMID: 19156725. Keira MORENO. Factor V Leiden Thrombophilia. 1998January 24 (Updated 2017Sep 16). In: Tray MP, Raul HH, Shahida RA, et al., editors. Rayna(R) (Internet). [place] ([place]): [facility], [place]; 4653-7776. Available from: https://www.ncbi.nlm.nih.gov/books/HHP2313/ Kirit Bowser, Vika LOPEZ, Robert X, Ranjan B, Malia EB, Janina P, Chetan CS; [employer] Laboratory Furnishings Conservator Committee. Venous thromboembolism laboratory testing (factor V Leiden and factor II c.*97G>A), 2018 update: a technical standard of the [employer] and [employer] (ACMG). Jennifer Med. 2018 Aug;20(12):2978-4867. doi: 10.1038/[id number]-t. Epub 2017Jun 17. PMID: 35370892. [facility] REVIEWED BY Comment . [facility] Healthcare Comment on above: Technical Component performed at [facility] Professional Component performed by: [employer] Xavi Rogers, Ph.D., [facility] Director, Molecular Genetics [address] [facility] Nikita Guillen [facility] [address] Performed at: - [facility] [address] [place], [place] [id number] Conference Director: Fidelina Vasquez [facility], Phone: [phone] [facility] No Panel Informationon 05-18 [facility] PROTEIN C-FUNCTIONALon 05-18 PROTEIN C-FUNCTIONAL 159 % 73 - 180 % [facility] Comment on above: Performed at: [facility] [place] [address] [place] [id number] Conference Director: Katlyn Shabazz MD, Phone: [phone] PROTEIN S-ANTIGENon 05-18-20 PROTEIN S, FREE 103 % 61 - 136 % [facility] PROTEIN S, TOTAL 117 % 60 - 150 % [facility] Comment on above: This test was develo ped and its performance characteristics determined by [employer]. It has not been cleared or approved by the Food and Drug Administration. PROTEIN S-FUNCTIONALon 05-18 PROTEIN S-FUNCTIONAL 99 % 63 - 140 % [facility] Comment on above: Protein S activity m ay be falsely increased (masking an abnormal, low result) in patients receiving direct Xa inhibitor (e.g., rivaroxaban, apixaban, edoxaban) or a direct thrombin inhibitor (e.g., dabigatran) anticoagulant treatment due to assay interference by these drugs. C Urineon 05-11-2024 Bacteria identified Cx Nom (U) Microbiology PROCEDURE: Urine Culture [R1] SOURCE: U CleanCatch BODY SITE: COLLECTED DATE/TIME: 05/09/2024 09:55 EDT RECEIVED DATE/TIME: 05/09/2024 18:41 EDT START DATE/TIME: 05/09/2024 18:41 EDT FREE TEXT SOURCE: AMALIA Shukla APRN, [...] Locations R1: This test was performed at: [facility], [address] [place] [address], [address] , [place], Normal [facility] Comment on above: Performed By: #### 2 [id number] #### [facility] [address] [place] [address] Ambulatory Visit Summaryon 0 05-09-2024 Ambulatory Visit [...] Up with Gayla BARRIENTOS, AMALIA, Shante X, NAHEED, URL When: Comments: 6 months Where: Medications What How Much When Why Instructions New trospium (trospium 20 mg oral tablet) 1 Tablets By Mouth 2 times a day OAB (overactive bladder) Duration: 90 Days Refills: 3 Pickup at [facility]/pharmacy #[id number] Unchanged atorvastatin (atorvastatin 20 mg Tab) 90 [...] physician if questions or concerns Pharmacy Information [id number]: [address], [place] [phone] What How Much When Comments Stop Taking [...] insulin Unspecifie (more content not included)... Normal [facility] Reminderson 05-09-2024 Reminders Reminders From: Anushka Carroll To: EU - Administrative; Sent: 05/09/2024 10:23:22 EDT Show up: 08/13/2024 10:23:00 EST Subject: Ambulatory Reminder Due Date/Time: 10/23/2024 10:22:00 EST Reminder/Recall Patient needs scheduled with AO for a 6 month f/u, due back mid October 2024 Normal [facility] Urology Office/Clinic Noteon 05-09-2024 Urology Office/Clinic Note Urology Office/Clinic Note Chief Complaint 6-8 wk f/u w/ [facility] HPI Staff 6-8 wk with [facility]VR. [facility] __ cc (43). Previous DX: OAB, mixed incontinence, frequency, stress incontinence, nocturia, glucosuria, urethral stricture, bacteriuria, proteinuria. S/p cysto/UD 01/09/19 by DLS. *Started Trospium 20 mg bid at prior [...] with voice recognition artificial intelligence software, specifically [employer], Runa and or BLOVES. Substitutions may have occurred due to the [...] BID, # 60 tab(s), Refills(s) 2, Pharmacy: [facility]/pharmacy #[id number], 155, cm, 02/29/24 10:38:00 EDT, Height/Length Dosing, 66.5, kg, 02/29/24 10:38:00 EDT, Weight Dosing trospium, 20 mg = 1 tab(s), Oral, BID, X 90 day(s), # 180 tab(s), Refills(s) 3, Pharmacy: [facility]/pharmacy #[id number], 155, cm, 05/09/24 9:05:00 EDT, Height/Length Dosing, 66.5, kg, 05/09/24 9:05:00 EDT, Weight Dosing 47067 Measure Post Void residual urine and/or bladder capacity by US- non-imaging Urine Culture Urnls Dip Stick Auto w/o Microscopy POC 45546 2. Mixed incontinence (N39.46: Mixed incontinence) UUI >>> LEW See #1 Ordered: 35849 Measure Post Void residual urine and/or bladder capacity by US- non-imaging Urine Culture Urnls Dip Stick Auto w/o Microscopy POC 93033 3. Asymptomatic microscopic hematuria (R31.21: Asymptomatic microscopic [...] Improved to 2 times per night Ordered: 52062 Measure Post Void residual urine and/or bladder capacity by US- non-imaging Urine Culture Urnls Dip Stick Auto w/o Microscopy POC 70599 5. Unspecified urethral stricture, female (N35.92: Unspecified urethral stricture, female) s/p cystoscopy/UD 01/09/2019 by ELHAM [1] Ordered: 84688 Measure Post Void residual urine and/or bladder capacity by US- non-imaging Urine Culture Urnls Dip Stick Auto w/o Microscopy POC 46220 6. Glucosuria (R81: Glycosuria) 3+ on UA [...] CVA (cerebrovascular (more content not included)... [facility] Comment on above: Result Comment: Elec tronically Signed By: AMALIA Shukla APRN, Shante Bonilla\.br\Date and Time Signed: 05/09/24 10:01 EDT ALL CBC WITH AUTO DIFFon BASOPHILS ABSOLUTE AUTO 0.0 [facility] Healthcare Basophils/100 WBC (Bld) 0.3 % 0.2 - 2.0 % [facility] Eosinophils/100 WBC (Bld) 1.2 % 0.9 - 7.0 % [facility] Erythrocyte distribution width (RBC) [Ratio] 14.1 % 11.0 - 15.0 % [facility] Hematocrit (Bld) [Volume fraction] 42.8 % 36.0 - 48.0 % [facility] Hemoglobin (Bld) [Mass/Vol] 14.1 g/dL 12.0 - 16.0 g/dL [facility] IMMATURE GRANULOCYTES ABS AUTO 0.07 High [facility] Immature granulocytes/100 WBC (Bld) 0.6 % High 0.0 - 0.5 % [facility] Interpretation and review of laboratory results Abnormal [facility] LYMPHOCYTES ABSOLUTE AUTO 3.0 [facility] Lymphocytes/100 WBC (Bld) 26.4 % 20.5 - 60.0 % [facility] MCH (RBC) [Entitic mass] 30.0 pg 26.7 - 34.0 pg [facility] MCHC (RBC) [Mass/Vol] 32.9 g/dL 29.9 - 35.2 g/dL [facility] MCV (RBC) [Entitic vol] 91.1 fL 81.0 - 99.0 fL [facility] MONOCYTES ABSOLUTE AUTO 0.7 [facility] Monocytes/100 WBC (Bld) 5.7 % 1.7 - 12.0 % [facility] NEUTROPHILS ABSOLUTE AUTO 7.6 High [facility] Neutrophils/100 WBC (Bld) 65.8 % 43.0 - 75.0 % [facility] Platelet mean volume (Bld) [Entitic vol] 8.0 fL Low 9.5 - 13.5 fL [facility] TBH EO # 0.1 [facility] TBH PLT 167 [facility] TBH RBC 4.70 [facility] TBH WBC 11.5 High [facility] Office Visiton 05-08-2024 Follow-up visit [id number] Robina Ron 1950 F Date Provider [facility] Family History Problem Relation Age of Onset Pulmonary embolism Father Family Status - Relation Status Age at Father Level of Service:89913 DE OFFICE/OUTPATIENT ESTABLISHED LOW MDM 20 MIN [facility] 36on 04-11-[address] Wade reviewed patient's echo from 04/05/2024 and said it was ok. Spoke with patient and made her aware. She was unable to schedule Oct follow up because she didn't have her son's schedule with her. I advised she would get a phone call in May to schedule an apt for Oct. She verbalized understanding. Normal [facility] Office Visiton 03-14-2024 Follow-up visit [id number] Robina Ron 1950 F Date Provider Department Center 03/14/2024 EDD VAZQUEZ Family History Problem Relation Age of Onset Pulmonary embolism Father Family Status - Relation Status Age at Father Level of Service:46216 DE OFFICE/OUTPATIENT ESTABLISHED MOD MDM 30 MIN [facility] Coding Summary.on 03-07-2024 Coding Summary. ZJTSShjh48YIz3fFu+PG h lYWQ+VV4GZMPqG89qpYUs wK3hQ1XIVGvWQxneDGOJS UyLQnFwtsQjZL4biITdBW Ju IC8+DN5sFYEnMeavwBJrl 1P5sDX1H09xmv6pYSaelL F7MBUgOuEgxeolm4lhrIg 6IDcuNmluOyBt YNEhvE71QKC4dX15Og01d YEsmDRsk7pfhMx9XzJnGL JaTBK8fDbnTYygo9XuXAH sH37kqNCdn1Q0 YTBfdImhuBTyUrAodVZ4p A4kSZwnuulhw5ncbfihUc p6nj66xZVgy8I1wNV1L4J kvpZ8IHMfaQVh DmicqJUOtP6xwhlbw8niw dfrXsAlRHDnRQd8VNq5KI CmrMirKoLnBJ13PIE3SSP skpJdE6CmSJCv uIlsIfW5y7S4Re3HD0MHN eovO4XKGLHWIDdjbBR+PC 53ca79X1UyMrftEav4BRW bQIK2sZJ3xJ0y TNMcIAlcg8O7mIT1G9Tbz iTnnl5do7rjMALwEJpyG2 8eyKHeo2W7OGQlbVN1SLZ yiFkjFoXrmO90 Oyc+GJNijHsbh9QfPbnti 0fqn4imgQp8JsneOBLaag TqjKksPRW9u2QwSp6uDGJ hnHO8hFN8hG5e SmNnBmS3BCgyO704OeTgy AVaDmrnO47jF1JiqSF+PH KnZvb5MTOwuVyoSD9wI5J hZGRpbmctbGVm yHtaQM0iPRMwffraSIDpw J5eJCHrN0o4EhRiBcY8QG idH1MaVYFdexpmBo97mF8 gJuPsVwK1CEnv J3QkryH3NROgjUWzFOsvX RW4Z62cb0C3OQRqNPIdFY W8uCC6sR1nxHwqddloxKG mdDsgdmVydGlj AYvpFAliM794IAEhxEryP kNvZGluZyBEYXRlOiAgMD YvMjUvMjAyNDwvdGQ+PHR tPZK8gWoqLAIj sYIyYTonXz6nvZsbaUnlL E1zSSHgxjtkBHBmbN6dNA MvfWBqoKktWQ0eZFSipmi kx349VdPvKMD6 VZZmiZDnA1VfkD8aYbDbN BYoAQDmR8SucDUgSDduY8 45YPozLdK0RBRruwDdB3N sLWFsaWduOiB0 h0W6Pd7Pv6YchywzU8Acy LDrYbHdUxqkPSz2T7NdTg wvdHI+IJ39DNQyGP37HZq 2HNB8hJbhEDbf DGIfA0EfdH9uHuCrGZRgT GRkOyc+PHRhYmxlIHdpZH RoPScxMDAlJyBzdHlsZT0 dKh8iAOGiXRLf zQlytQKvZvKus1efZSRjR IakYM0cvKvtC9QcgLC5LE Ccl1b4Pu71W67aV0XzpUS +HMLurCU7nTO1 iV4eHvSaXhC7ESwjX141P dGbaPOzGbsss5rgs0pnsT i3LhU7YVIcddJsfZmbTKO 0z3TyBa24Z86y IHdpZHRoPSIxNSUiIHZhb Upvoa9lzH4qBq0+PGNvbC V8hRT9vP2rCjOsXcS9AXo bU851BbSvqGSi Xijcn5jeb3arrTm0LtQlM FVeppRpxBviDHS4y8JoNm 73C3MtxNopn4EoBra0pd6 0sNCry6Q0iHB7 R4EtFBTuvwnxyKGzmGthX T4kEVOpupgzZXEviD8cOM NmP4m8JnTaQwM2XDlwT1J slaO8JZLxuVOi EEDlcIPEnR4datcdf3uzn cniVlFdCDYeRFu3SWd6XW VrcGlfBoVmKEU8AaI0OPY 6pPMpdY1miEzk qryzmN3cBqz+IEL2uLBwi SFCHU1tRppxrFH+PHRkIH Y2eFshAHrjBSUlkC3gSRC bW9f4MjXnDgQ9 EGhbM4CvpoB6ROYlvGJvD WVkjBBZnK0ojrrac2huyj gzDzHiTIMuRPw6PVd4URQ saWduOiBsZWZ0 BwP3FSS7fROisS5yxDxij izinW8yBjm+QmlydGggRG R7SPq0L7FuTzq1HPFjnIp jQL9uiEEcUVal If2sjXqpnEthJM5cXFIzm harl541DdUal3rzJRBaqI TtPXwjAVH8V25yl6Q8QKC gUFElIBJ4pST0 mY4rzUvbbzlypNPqrBhxw sOqlAedMGahTWhlH216EN LhbXwbXrUdTGp7U9McPle 6PLMegWmgFN5t fLHhPVbfRl2ieZnmjLmhG U6jQGZvuodlu136PxTbl3 ehDLVvhJFvRIqnSDC6O18 qp1D8HCXdYPOn DFJ9fIN1vO1lcSpqgqezo GVmdDsgdmVydGljYWwtYW xtJ668HDPuqGfnBwXauCb 0A7KwSke3OOBy gWtvSP1lhFWmQXnbIw4pi VmfkKknJZ4pPMCbcabyd7 92ZyRkc1eeQDGqzPRuHOg vWZF0R31cc7W9 WRSrEWYtZKT0vTM9rS1dg GlnbjogbGVmdDsgdmVydG pvLShrIMgmT083GCUehNe nPlBhdGllbnQg KRfvRRz8Q5HjJzpchZD+P G07ODQiRS74vZGaeHKah3 otiPn4UlZjYQZhCJD1zXl gJQbdx3OnKLQx Y80szDCfb2V2VMIonQvxh ZZsAbAfsPZ8eE8pRHxvrb rzb7flcsviGzjtr7tymy3 9dO25V49vVZaq ZHRoPSIzMCUiIHZhbGlnb b4rdG8fYo6+JFOodLM4mH V3kB2wJUBoCcP6FEmjY58 9InRvcCIvPjxj r6zcz9oooBz6BwE4SWOgd mHdlJnhGFW1q0XnXt43A5 9sIHdpZHRoPSIyMCUiIHZ dcBorsb0cxC1n Ii8+LWMoiVH9nFR7dP3xA cTpErW5DDgfO543VhZceZ LbLtcqX94oH3EusAO+PHR uKay6PXYgoNzi MD1mqVZbMTogRl6gYOM8K yEbKoFeMIjuJ2TsHZQybc cijrybrIU8VZNgAXHthL4 5Hw3xvGirOOWu tLGXiQ1ifkqwd7lylzwuS yDyUMIoELd7MOm3IKEjcZ umLaNmCID3QlB4QUW3aIY nkB5ddFyaehqe uV7iZ9MxTUKqzuikZf09e V8xHzKwNoW0DMrjNcn+TE DCWNbmO6OGAPfWET6uAVt vdGQ+PHRkIHN0 xOthPKqgIVUeuP8lOXFfA 0t2MeImAsH0NNdmG9AeMV PdorfzEe25iS8oUyRwIcC 4CZjlZ6VfzvI4 KEXcbUHfNWcyCGO0B29fv 0D8YFSvVSCxRWX9fEX4xO 1hbGlnbjogbGVmdDsgdmV ydGljYWwtYWxp A836VNPzrPihEpOfZbJjS xZ5WFF5A9CjIxu9DIUaiP nsKL2mjAAdIJzdXd7zlLn ihFtlMM5tSJKa sdtfPCZdoC4hSPHtnLCaw OkqES0rRAKhmryxj488Oi HsAMN0YDLeuYIrL9UieU8 yOiAjMDAwMDAw J4PwrWZvOUgyJ972GTwiT pS1ESHpgfGlH6ZqPHWqqF jpKuC2l3Y2Km43PdWGOLR yczwvdGQ+PHRk UGZ7rVlqPDrtBUIkdM1iV HFlX5x8GtFhJeO3AJgaE7 TvXLLbrmmsDp24oZ5fZjM yRgW4PIrxB0Rd bfQ9KRYtrVXfSEisRJB7D 28wa2L0HFDgKMKzZMM1pS P1dG1ydGwneybhqTIufCx gdmVydGljYWwt VUmiD942ZXPxqFvdVvBfv WFsZTwvdGQ+PDFfOMT8sP jiFTivAIPksF7vKYYuO1w 9DcGfPeZ6TSvi Y6DaGKRjfzpkZg09wH7kL nZfRmS2YGetJ2UethD1PU WyxYSjEWaoHBN8O64jb7B 7SITuDUFtYFV7 uGU1dY7lxOmnnodggLRyz DsgdmVydGljYWwtYWxpZ2 12DLUnzMxsBincVwXCec2 iPU0lWgwjdIZ+ AY48lp01T9WoUmntUfz7A WNbEKI5qNB3mL1iFRFxGB rby6H2iLN7Y4XucnIpwu4 jw5twYRZwXVqi P75hfTPlm8Q6LAWptWU4B VFgcVvkXsCrtR52Mcu+PG AouGosd6UuDrorv2iqy2c jmTm0GdMeCCUl qaMcwPpsMBY2n7RtJp10G 29sIHdpZHRoPSIzMCUiIH FuyUswid1fiV0vBr4+PGN vpJF2vCE4rU2l WgUhWzX7JMnnB987EmFyr OQkBohal4mlg0dchGn5Rt KbHVPknoTalXjjWSQ4i6M cHx97K4IuyGma y6DrAot2in60mRHwa4E7p FH9N2ClEFIhclaosWFavJ wyRB6pLDGyzckrLYFbkH1 nVTAmB6t0OwBq GfM2TDyyR3RrrsP2NWZvq AAhWZCimQJEzT3beffaa1 ayuwhfWhMnGPMeOBb3HBd 0LWFsaWduOiBs GPG1LdT5UIN6wADpxS9eo KsshgtisS9yZry+UGh5c2 cxnHKiRU2oqKF0CO90LU0 6bCYke5D2pBE1 R7OyXLAmssfucdaiuEO9P XSzLCVzhJ64Rp5tgNpaFl 6tZTWvNSR4TEWonQXjX4K gtR3eXoIzFGWi BNYdV9VimCYfUWhuO232W LmeJvU9LTVnvoJlG6UtGJ AvsZqkVnA6d7K8Jv6YAC0 9XV95PF59qFDy w4I8rDW6A7VyGHSejpoaz eakkGN0UISyQIIyeW58Fk 4gxQnrQk6mAIVjFRC3NOR jgFSqE9HrqA6w SmFoRXHvFXEhI4HggUGuC WrnM102PYgaLfX1SDGlxu CdK6BcDMNayKssGrN9o8M 5To8ESi83KF89 VM42pFPtc7L1mGW2V6FcY YJzjzsjwtjaiOK0RUXiGJ LaaS57Ee1vcTzeWf2gAYG wNFJ8KPKkvHSk X2QvuG6eRnRyPKKvKNDuH 6QfgAAvTPliR375MNytTx W2ATDxbwMlH1JmUPTwgJp iKeW6t5C8Ui7A MCxbokr8C8AkOfjrmCA+P G62OCVlJW60cURllWWor8 ersVi5MrToUTWlXMJ7tHn wDTxlf0OsOSCe I71ooMTlu7C2B (more content not included)... Normal [facility] Patient Educationon 03-05-20 Patient Education Obstetrics and [...] health care provider. General instructions ? Take xbvw-ahc-kawdtan and prescription medicines only as told by [...] monitor yo (more content not included)... Normal [facility] C Urineon 03-02-2024 Bacteria identified Cx Nom (U) Microbiology PROCEDURE: Urine Culture [R1] SOURCE: U Random BODY SITE: COLLECTED DATE/TIME: 02/29/2024 11:27 EDT RECEIVED DATE/TIME: 02/29/2024 18:25 EDT START DATE/TIME: 02/29/2024 18:25 EDT FREE TEXT SOURCE: Gayla BARRIENTOS, ULTRASONIC TESTER-C, Gayla HON, ULTRASONIC TESTER-C, Shante X Shante X FINAL REPORTS Final [...] Locations R1: This test was performed at: [facility], [address] [place] [address], [address] , , [facility] Comment on above: Performed By: #### 2 [id number] #### [facility] [address] [place] [address] Physician Referralon 024 Physician Referral [id number]. 00TIFF Normal [facility] Screenson 03-01-2024 Screens [id number]# [id number] Normal [facility] Ambulatory Visit Summaryon 0 02-29-2024 Ambulatory [...] for choosing us for your care. Normal [facility] GLYCOHEMOGLOBIN A1Con 2021 ADA RECOMMENDATION SEE BELOW Normal [facility] Comment on above: Result Comment: ADA RECOMMENDED LIMIT 4.0 - 6.0 ADA THERAPEUTIC TARGET < 7.0 ACTION SUGGESTED > 7.0 Performed By: #### A 1C #### [facility] [address] [place], [place] [address] Dr. Julisa Lowe Glucose [Mass/Vol] 235 mg/dL Normal [facility] Comment on above: Performed By: #### A 1C #### [facility] [address] [place], [place] [address] Dr. Julisa Lowe HbA1c (Bld) [Mass fraction] 9.8 % Critically high 4.5-6.2 [facility] Comment on above: Performed By: #### A 1C #### [facility] [address] [place] [address] [address] Julisa Lowe PROF CHEM 8 (BAS METB)on Anion gap [Moles/Vol] 17.7 mmol/L Normal [facility] Comment on above: Performed By: #### B MP #### [facility] [address] [place] [address] [address] Julisa Lowe Calcium [Mass/Vol] 9.3 mg/dL Normal 8.5-10.1 [facility] Comment on above: Performed By: #### B MP #### [facility] [address] [place] [address] Dr. Julisa Lowe Chloride [Moles/Vol] 107 mmol/L Normal 98-107 [facility] Comment on above: Performed By: #### B MP #### [facility] [address] [place] [address] Dr. Julisa Lowe CO2 [Moles/Vol] 24.3 mmol/L Normal 21.0-32.0 [facility] Comment on above: Performed By: #### B MP #### [facility] [address] [place] [address] Dr. Julisa Lowe Creatinine [Mass/Vol] 0.90 mg/dL Normal 0.55-1.02 [facility] Comment on above: Performed By: #### B MP #### [facility] [address] [place] [address] Dr. Julisa Lowe EGFR-AF ERITREAN >60 Normal >=60 [facility] Comment on above: Performed By: #### B MP #### [facility] [address] [address] [address] Julisa Lowe EGFR-NON AF ERITREAN >60 Normal >=60 [facility] Comment on above: Performed By: #### B MP #### [facility] [address] [place] [address] Dr. Julisa Lowe Glucose [Mass/Vol] 196 mg/dL Critically high 74-106 [facility] Comment on above: Performed By: #### B MP #### [facility] [address] [address] [address] Julisa Lowe Potassium [Moles/Vol] 5.0 mmol/L Normal 3.5-5.1 [facility] Comment on above: Performed By: #### B MP #### [facility] [address] [address] [address] Julisa Lowe Sodium [Moles/Vol] 144 mmol/L Normal 136-145 [facility] Comment on above: Performed By: #### B MP #### [facility] [address] [address] [address] Julisa Lowe Urea nitrogen [Mass/Vol] 33.0 mg/dL Critically high 7.0-18.0 [facility] Comment on above: Performed By: #### B MP #### [facility] [address] [address] [address] Julisa Lowe Urea nitrogen/Creatinine [Mass ratio] 36.7 mg/mg Normal [facility] Comment on above: Performed By: #### B MP #### [facility] [address] [address] [address] Julisa Lowe Basophils Auto (Bld) [#/Vol] Ordered By: Hood Patel on 05-12-2022 Basophils (Bld) [#/Vol] 0.1 10*3/uL 0.0-0.2 [facility] Basophils/100 WBC Auto (Bld) Ordered By: Hood Patel on 05-12-2022 Basophils/100 WBC (Bld) 0.7 % . [facility] Blood hemoglobin measurement (mass/volume)Ordered By: Hood Patel on 05-12-2022 Hemoglobin (Bld) [Mass/Vol] 11.8 g/dL 11.8-15.4 [facility] Blood leukocytes automated c ount (number/volume)Ordered By: Hood Patel on 05-12-2022 WBC (Bld) [#/Vol] 7.6 10*3/uL 4.5-11.0 [facility] biopsyOrdered By: Merna Patel on 05-12-2022 Transferrin [Mass/Vol] 206 mg/dL 180-380 [facility] Complete Blood Count Auto Di ffon 05-12-2022 Basophils (Bld) [#/Vol] 0.1 10*3/uL Normal 0.0-0.2 [facility] Comment on above: Result Comment: PERF ORMED BY: [place] [address] PATHOLOGIST [employer] OR THEATRE MANAGER JENY DODGE M.D. Performed By: #### F E and TIBC, KATHY, [id number], CBC #### [address] Basophils/100 WBC (Bld) 0.7 % Normal . [facility] Comment on above: Performed By: #### F E and TIBC, KATHY, [id number], CBC #### [address] Eosinophils (Bld) [#/Vol] 0.1 10*3/uL Normal 0.0-0.45 [facility] Comment on above: Performed By: #### F E and TIBC, KATHY, [id number], CBC #### [address] Eosinophils/100 WBC (Bld) 1.6 % Normal . [facility] Comment on above: Performed By: #### F E and TIBC, KATHY, [id number], CBC #### [address] Erythrocyte distribution width (RBC) [Ratio] 27.8 % High 11.9-15.3 [facility] Comment on above: Performed By: #### F E and TIBC, KATHY, [id number], CBC #### [address] Hematocrit (Bld) [Volume fraction] 37.5 % Normal 34.0-46.4 [facility] Comment on above: Performed By: #### F E and TIBC, KATHY, [id number], CBC #### [address] Hemoglobin (Bld) [Mass/Vol] 11.8 g/dL Normal 11.8-15.4 [facility] Comment on above: Performed By: #### F E and TIBC, KATHY, [id number], CBC #### [address] Lymphocytes (Bld) [#/Vol] 2.4 10*3/uL Normal 1.00-4.8 [facility] Comment on above: Performed By: #### F E and TIBC, KATYH, [id number], CBC #### [address] Lymphocytes/100 WBC (Bld) 32.0 % Normal . [facility] Comment on above: Performed By: #### F E and TIBC, KATHY, [id number], CBC #### [address] MCH (RBC) [Entitic mass] 24.2 pg Low 24.7-34.3 [facility] Comment on above: Performed By: #### F E and TIBC, KATHY, [id number], CBC #### [address] MCV (RBC) [Entitic vol] 76.9 fL Low 80-100 [facility] Comment on above: Performed By: #### F E and TIBC, KATHY, [id number], CBC #### [address] Mean Corpuscular HGB Conc 31.4 g/dL Low 32.0-35.0 [facility] Comment on above: Performed By: #### F E and TIBC, KATHY, [id number], CBC #### [address] Monocytes (Bld) [#/Vol] 0.4 10*3/uL Normal 0.0-0.8 [facility] Comment on above: Performed By: #### F E and TIBC, KATHY, [id number], CBC #### [facility] [address] Monocytes/100 WBC (Bld) 5.8 % Normal . [facility] Comment on above: Performed By: #### F E and TIBC, KATHY, [id number], CBC #### [address] Neutrophils (Bld) [#/Vol] 4.6 10*3/uL Normal 1.8-7.7 [facility] Comment on above: Performed By: #### F E and TIBC, KATHY, [id number], CBC #### [address] Neutrophils/100 WBC (Bld) 59.9 % Normal . [facility] Comment on above: Performed By: #### F E and TIBC, KATHY, [id number], CBC #### [address] Nucleated RBC/100 WBC (Bld) [Ratio] 0.2 % Normal 0-0.5 [facility] Comment on above: Performed By: #### F E and TIBC, KATHY, [id number], CBC #### [address] Platelet mean volume (Bld) [Entitic vol] 6.5 fL Normal 6.3-10.7 [facility] Comment on above: Performed By: #### F E and TIBC, KATHY, [id number], CBC #### [address] Platelets (Bld) [#/Vol] 231 10*3/uL Normal 150-450 [facility] Comment on above: Performed By: #### F E and TIBC, KATHY, [id number], CBC #### [address] RBC (Bld) [#/Vol] 4.88 10*6/uL Normal 3.60-5.00 [facility] Comment on above: Performed By: #### F E and TIBC, KATHY, [id number], CBC #### [facility] [address] WBC (Bld) [#/Vol] 7.6 10*3/uL Normal 4.5-11.0 [facility] Comment on above: Performed By: #### F E and TIBC, KATHY, [id number], CBC #### [facility] [address] Eosinophils Auto (Bld) [#/Vo l]Ordered By: Hood Patel on 05-12-2022 Eosinophils (Bld) [#/Vol] 0.1 10*3/uL 0.0-0.45 [facility] Eosinophils/100 WBC Auto (Bl d)Ordered By: Hood Patel on 05-12-2022 Eosinophils/100 WBC (Bld) 1.6 % . [facility] Erythrocyte distribution wid th Auto (RBC) [Ratio]Ordered By: Hood Patel on 05-12-2022 Erythrocyte distribution width (RBC) [Ratio] 27.8 % 11.9-15.3 [facility] Ferritinon 05-12-2022 Ferritin [Mass/Vol] 218.6 ng/mL Normal 11-306.8 [facility] Comment on above: Performed By: #### F E and TIBC, KATHY, [id number], CBC #### [facility] [address] Ferritin [Mass/volume] in Se rum or PlasmaOrdered By: Hood Patel on 05-12-2022 Ferritin [Mass/Vol] 218.6 ng/mL 11-306.8 [facility] Folate [Mass/volume] in Seru m or PlasmaOrdered By: Hood Patel on 05-12-2022 Folate [Mass/Vol] 7.9 ng/mL >5.9 [facility] Comment on above: Folate reference ran ge: >5.9 ng/ml The WHO technical consultation on folate and vitamin b12 deficiencies has determined that folate concentrations less than 4 ng/ml are considered deficient. Glucose Glucometer (BldC) [M ass/Vol]Ordered By: Hood Patel on 05-12-2022 Glucose [Mass/Vol] 426 mg/dL [facility] Comment on above: Random Glucose Refer ence Range is dependent on time and content of last meal. Glucose of more than 200 mg/dL in a nonstressed, ambulatory subject supports the diagnosis of Diabetes Mellitus. Glucose Poct Glucometerson 0 05-12-2022 Commemt1 Normal [facility] Comment on above: Result Comment: Glu2 : Result Not Confirmed PERFORMED BY: [place] [address] PATHOLOGIST [employer] THEATRE MANAGER JENY DODGE M.D. Performed By: #### G LULS #### Point of Care testing , Glucose [Mass/Vol] 426 mg/dL Off scale [facility] Comment on above: Result Comment: [place] om Glucose Reference Range is dependent on time and content of last meal. Glucose of more than 200 mg/dL in a nonstressed, ambulatory subject supports the diagnosis of Diabetes Mellitus. Performed By: #### G LULS #### Point of Care testing , Hematocrit Auto (Bld) [Volum e fraction]Ordered By: Hood Patel on 05-12-2022 Hematocrit (Bld) [Volume fraction] 37.5 % 34.0-46.4 [facility] Iron [Mass/volume] in Serum or PlasmaOrdered By: Hood Patel on 05-12-2022 Iron [Mass/Vol] 48 ug/dL 40-150 [facility] Iron and TIBC Profileon 04-15 % Iron Saturation 16.0 % Low 20-50 [facility] Comment on above: Performed By: #### F E and TIBC, KATHY, [id number], CBC #### [facility] [address] Iron [Mass/Vol] 48 ug/dL Normal 40-150 [facility] Comment on above: Performed By: #### F E and TIBC, KATHY, [id number], CBC #### [facility] [address] Total Iron Binding Capacity 288 ug/dL Normal 255-450 [facility] Comment on above: Performed By: #### F E and TIBC, KATHY, [id number], CBC #### [facility] [address] [place] [address] [place] Transferrin [Mass/Vol] 206 mg/dL Normal 180-380 [facility] Comment on above: Performed By: #### F E and TIBC, KATHY, [id number], CBC #### [facility] [address] [place] [id number] [place] Iron binding capacity [Mass/ volume] in Serum or PlasmaOrdered By: Hood Patel on 05-12-2022 Iron binding capacity [Mass/Vol] 288 ug/dL 255-450 [facility] Iron saturation [Mass Fracti on] in Serum or PlasmaOrdered By: Hood Patel on 05-12-2022 Iron saturation [Mass fraction] 16.0 % 20-50 [facility] Los 05-12-2022 L - -------- Specimen: [id number] Received: 05/12/22 Status: CORRY Chopra Num: [id number] Spec Type: Surgical Subm Dr: Hood Patel MD Tissues: A Duodenum - Biopsy (DUODENAL BX) Procedures: HE Stain/2, Gross/Micro L4 -------- Age/ Patient Sex Location Account Attending Physician -------- Robina Ron 71/F [id number] Hood Patel MD -------- SPEC NUM: [id number] RECD: 05/12/22 STATUS: CORRY CHOPRA NUM: [id number] PROSPER: 05/12/[address] [facility] [address]: Hood Patel MD ENTERED: 05/12/[address] [facility] [address]: VELASQUEZ TYPE: Surgical DEPT: S ORDERED: [...] microscopic findings support the above pathologic diagnosis. [id number] -------- -------- Specimen: [id number] Received: 05/12/22 Status: CORRY Chopra Num: [id number] Spec Type: Surgical Subm Dr: Hood Patel MD Tissues: A Duodenum - Biopsy (DUODENAL BX) Procedures: HE Stain/2, Gross/Micro L4 -------- Patient: Robina Ron [id number] (Continued) -------- Signed (signature on file) Jeny Dodge MD 05/13/22 1656 Normal [facility] Laboratory - Chemistry and C hemistry - challengeOrdered By: Hood Patel on 05-12-2022 Cobalamin (Vitamin B12) [Mass/Vol] 277 pg/mL 180-914 [facility] - Hematology and Cell countsOrdered By: Hood Patel on 05-12-2022 Nucleated RBC/100 WBC (Bld) [Ratio] 0.2 % 0-0.5 [facility] Lymphocytes Auto (Bld) [#/Vo l]Ordered By: Hood Patel on 05-12-2022 Lymphocytes (Bld) [#/Vol] 2.4 10*3/uL 1.00-4.8 [facility] Lymphocytes/100 WBC Auto (Bl d)Ordered By: Hood Patel on 05-12-2022 Lymphocytes/100 WBC (Bld) 32.0 % . [facility] MCH Auto (RBC) [Entitic mass ]Ordered By: Hood Patel on 05-12-2022 MCH (RBC) [Entitic mass] 24.2 pg 24.7-34.3 [facility] MCHC Auto (RBC) [Mass/Vol]Or dered By: Hood Patel on 05-12-2022 MCHC (RBC) [Mass/Vol] 31.4 g/dL 32.0-35.0 [facility] MCV Auto (RBC) [Entitic vol] Ordered By: Hood Patel on 05-12-2022 MCV (RBC) [Entitic vol] 76.9 fL 80-100 [facility] Monocytes Auto (Bld) [#/Vol] Ordered By: Hood Patel on 05-12-2022 Monocytes (Bld) [#/Vol] 0.4 10*3/uL 0.0-0.8 [facility] Monocytes/100 WBC Auto (Bld) Ordered By: Hood Patel on 05-12-2022 Monocytes/100 WBC (Bld) 5.8 % . [facility] Neutrophils Auto (Bld) [#/Vo l]Ordered By: Hood Patel on 05-12-2022 Neutrophils (Bld) [#/Vol] 4.6 10*3/uL 1.8-7.7 [facility] Neutrophils/100 WBC Auto (Bl d)Ordered By: Hood Patel on 05-12-2022 Neutrophils/100 WBC (Bld) 59.9 % . [facility] No Panel InformationOrdered By: Hood Patel on 05-12-2022 Bedside Glucose Comment See comment [facility] Comment on above: Glu2: Result Not Con firmed Platelet mean volume Auto (B ld) [Entitic vol]Ordered By: Hood Patel on 05-12-2022 Platelet mean volume (Bld) [Entitic vol] 6.5 fL 6.3-10.7 [facility] Platelets Auto (Bld) [#/Vol] Ordered By: Hood Amanda on 05-12-2022 Platelets (Bld) [#/Vol] 231 10*3/uL 150-450 [facility] RBC Auto (Bld) [#/Vol]Ordere d By: Hood Patel on 05-12-2022 RBC (Bld) [#/Vol] 4.88 10*6/uL 3.60-5.00 [facility] Vit. B12/Folate Profileon Cobalamin (Vitamin B12) [Mass/Vol] 277 pg/mL Normal 180-914 [facility] Comment on above: Performed By: #### F E and TIBC, KATHY, [id number], CBC #### [facility] [address] Folate 7.9 ng/mL Normal >5.9 [facility] Comment on above: Result Comment: Katelyn te reference range: >5.9 ng/ml The WHO technical consultation on folate and vitamin b12 deficiencies has determined that folate concentrations less than 4 ng/ml are considered deficient. PERFORMED BY: [place] [address] PATHOLOGIST [employer] THEATRE MANAGER JENY DODGE M.D. Performed By: #### F E and TIBC, KATHY, [id number], CBC #### [facility] [address] COVID-19 FRMCon 05-07-2022 SARS-CoV-2 (COVID-19) RNA CHALINO+probe Ql (Unsp spec) Negative Normal Negative [facility] Comment on above: Order Comment: Healt hcare Worker?: N Result Comment: Testing for SARS-CoV-2 by RT-PCR This test was developed and its performance characteristics determined by [employer] ([place]) and validated at the [facility]. This test has not been FDA cleared [...] is terminated or revoked sooner. PERFORMED BY: [place] [address] PATHOLOGIST [employer] OR THEATRE MANAGER JENY DODGE M.D. Performed By: #### C OVID 19 [facility] #### [address] COVID-19 Positive/NegativeOr dered By: Hood Patel on 05-07-2022 SARS-CoV-2 (COVID-19) N gene CHALINO+probe Ql (Resp) Negative Negative [facility] Comment on above: Testing for SARS-CoV -2 by RT-PCR This test was developed and its performance characteristics determined by [employer] ([place]) and validated at the [facility]. This test has not been FDA cleared [...] Basophils (Bld) [#/Vol] 0.03 10*3/uL Normal <0.11 [facility] Comment on above: Order Comment: Speci men Type: BLOOD SPECIMEN Ordering Facility: [facility] Address: [address] [address] Performed By: #### 5 7021-8, 08643-0 #### [facility] CLIA [id number] [address] [place] [address] Basophils/100 WBC (Bld) 0.3 % Normal [facility] Comment on above: Order Comment: Speci men Type: BLOOD SPECIMEN Ordering Facility: [facility] Address: [address] [place] [address] Performed By: #### 5 7021-8, 57841-4 #### [facility] CLIA [id number] [address] [place] [address] Differential cell count method Nom (Bld) Auto Normal [facility] Comment on above: Order Comment: Speci men Type: BLOOD SPECIMEN Ordering Facility: [facility] Address: [address] [place] [address] Performed By: #### 5 7021-8, 87171-9 #### [facility] CLIA [id number] [address] [place] [address] Eosinophils (Bld) [#/Vol] 0.09 10*3/uL Normal <0.46 [facility] Comment on above: Order Comment: Speci men Type: BLOOD SPECIMEN Ordering Facility: [facility] Address: [address] [address] Performed By: #### 5 7021-8, 06316-4 #### [facility] CLIA [id number] [address] [place] [address] Eosinophils/100 WBC (Bld) 1.0 % Normal [facility] Comment on above: Order Comment: Speci men Type: BLOOD SPECIMEN Ordering Facility: [facility] Address: [address] [place] [address] Performed By: #### 5 7021-8, 17440-7 #### [facility] CLIA [id number] [address] [place] [address] Erythrocyte distribution width (RBC) [Ratio] 20.4 % High 11.5-15.0 [facility] Comment on above: Order Comment: Speci men Type: BLOOD SPECIMEN Ordering Facility: [facility] Address: [address] [place], [place] [address] Performed By: #### 5 7021-8, 55835-2 #### [facility] CLIA [id number] [address] [place] [address] Hematocrit (Bld) [Volume fraction] 33.1 % Low 36.0-46.0 [facility] Comment on above: Order Comment: Speci men Type: BLOOD SPECIMEN Ordering Facility: [facility] Address: [address] [place] [address] Performed By: #### 5 7021-8, 27031-6 #### [facility] CLIA [id number] [address] [place] [address] Hemoglobin (Bld) [Mass/Vol] 9.3 g/dL Low 11.5-15.5 [facility] Comment on above: Order Comment: Speci men Type: BLOOD SPECIMEN Ordering Facility: [facility] Address: [address] [place], [place] [address] Performed By: #### 5 7021-8, 36214-5 #### [facility] CLIA [id number] [address] [place] [address]41 IMMATURE GRAN % 0.9 % Normal [facility] Comment on above: Order Comment: Speci men Type: BLOOD SPECIMEN Ordering Facility: [facility] Address: [address] [place] [address] Performed By: #### 5 7021-8, 62586-7 #### [facility] CLIA [id number] [address] [place] [address]22 IMMATURE GRAN ABS 0.08 k/uL Normal <0.10 [facility] Comment on above: Order Comment: Speci men Type: BLOOD SPECIMEN Ordering Facility: [facility] Address: [address] [place] [address] Performed By: #### 5 7021-8, 19292-4 #### [facility] CLIA [id number] [address] [place] [address] Lymphocytes (Bld) [#/Vol] 2.43 10*3/uL Normal 1.00-4.00 [facility] Comment on above: Order Comment: Speci men Type: BLOOD SPECIMEN Ordering Facility: [facility] Address: [address] [place] [address] Performed By: #### 5 7021-8, 19252-5 #### [facility] CLIA [id number] [address] [place] [address]34 Lymphocytes/100 WBC (Bld) 26.6 % Normal [facility] Comment on above: Order Comment: Speci men Type: BLOOD SPECIMEN Ordering Facility: [facility] Address: [address] [place] [address] Performed By: #### 5 7021-8, 76671-7 #### [facility] CLIA [id number] [address] [place] [address] MCH (RBC) [Entitic mass] 20.2 pg Low 26.0-34.0 [facility] Comment on above: Order Comment: Speci men Type: BLOOD SPECIMEN Ordering Facility: [facility] Address: [address] [place] [address] Performed By: #### 5 7021-8, 01967-6 #### [facility] CLIA [id number] [address] [place] [address] MCHC (RBC) [Mass/Vol] 28.1 g/dL Low 30.5-36.0 [facility] Comment on above: Order Comment: Speci men Type: BLOOD SPECIMEN Ordering Facility: [facility] Address: [address] [place] [address] Performed By: #### 5 7021-8, 91219-5 #### [facility] CLIA [id number] [address] [place] [address]91 MCV (RBC) [Entitic vol] 72.0 fL Low 80.0-100.0 [facility] Comment on above: Order Comment: Speci men Type: BLOOD SPECIMEN Ordering Facility: [facility] Address: [address] Performed By: #### 5 7021-8, 51108-6 #### [facility] CLIA [id number] [address] [place] [address]308 Monocytes (Bld) [#/Vol] 0.48 10*3/uL Normal <0.87 [facility] Comment on above: Order Comment: Speci men Type: BLOOD SPECIMEN Ordering Facility: [facility] Address: [address] Performed By: #### 5 7021-8, 14361-0 #### [facility] CLIA [id number] [address] [place] [address]05 Monocytes/100 WBC (Bld) 5.3 % Normal [facility] Comment on above: Order Comment: Speci men Type: BLOOD SPECIMEN Ordering Facility: [facility] Address: [address] Performed By: #### 5 7021-8, 13666-9 #### [facility] CLIA [id number] [address] [place] [address] 05698 Neutrophils (Bld) [#/Vol] 6.02 10*3/uL Normal 1.45-7.50 [facility] Comment on above: Order Comment: Speci men Type: BLOOD SPECIMEN Ordering Facility: [facility] Address: [address] [place], [place] [address] Performed By: #### 5 7021-8, 91141-1 #### [facility] CLIA [id number] [address] [place] [address] 96141 Neutrophils/100 WBC (Bld) 65.9 % Normal [facility] Comment on above: Order Comment: Speci men Type: BLOOD SPECIMEN Ordering Facility: [facility] Address: [address] [place] [address] Performed By: #### 5 7021-8, 50010-5 #### [facility] CLIA [id number] [address] [place] [address] 89592 Nucleated RBC (Bld) [#/Vol] 10*3/uL Normal <0.01 [facility] Comment on above: Order Comment: Speci men Type: BLOOD SPECIMEN Ordering Facility: [facility] Address: [address] [place] [address] Performed By: #### 5 7021-8, 21951-6 #### [facility] CLIA [id number] [address] [place] [address]39 Nucleated RBC/100 WBC (Bld) [Ratio] 0.0 /100 WBC Normal [facility] Comment on above: Order Comment: Speci men Type: BLOOD SPECIMEN Ordering Facility: [facility] Address: [address] [place], [place] [address] Performed By: #### 5 7021-8, 57353-5 #### [facility] CLIA [id number] [address] [place] [address]32[address] Platelet mean volume (Bld) [Entitic vol] 7.7 fL Low 9.0-12.7 [facility] Comment on above: Order Comment: Speci men Type: BLOOD SPECIMEN Ordering Facility: [facility] Address: [address] [place], [place] [address] Performed By: #### 5 7021-8, 77696-7 #### [facility] CLIA [id number] [address] [place] [address] Platelets (Bld) [#/Vol] 318 10*3/uL Normal 150-400 [facility] Comment on above: Order Comment: Speci men Type: BLOOD SPECIMEN Ordering Facility: [facility] Address: [address] [place] [address] Performed By: #### 5 7021-8, 05580-9 #### [facility] CLIA [id number] [address] [place] [address] RBC (Bld) [#/Vol] 4.60 10*6/uL Normal 3.90-5.20 [facility] Comment on above: Order Comment: Speci men Type: BLOOD SPECIMEN Ordering Facility: [facility] Address: [address] [place], [place] [address] Performed By: #### 5 7021-8, 66779-1 #### [facility] CLIA [id number] [address] [place] [address] WBC (Bld) [#/Vol] 9.13 10*3/uL Normal 3.70-11.00 [facility] Comment on above: Order Comment: Speci men Type: BLOOD SPECIMEN Ordering Facility: [facility] Address: [address] [place], [place] [address] Performed By: #### 5 7021-8, 12076-9 #### [facility] CLIA [id number] [address] [place] [address] CNOVSPon 04-14-2022 OVS Visit (SP) Office ([place]) ROBINA RON ([id number]) 1950 F Date Time Provider Department 04/14/22 1:15 PM CHRISTI FINK During your visit today, we recorded the following information about you: Temperature Pulse Respiration Blood pressure 97.9 degrees 80/minute 16/minute 149/60 Weight Height 53.6 kg 1.524 m Christi Fink MD 04/14/2022 1:13 PM Signed PATIENT NAME: Robina Ron CLINIC NO.: [id number] ATTENDING PHYSICIAN: Christi Fink MD DATE OF [...] sleep apnea) - PAD (peripheral artery disease) ([facility]) - Pericardial effusion Social History Tobacco Use [...] Date Valu (more content not included)... Normal [facility] CNPNon 04-14-2022 CNPN Telephone ([place]) ARIADNEROBINA ([id number]) 1950 F Date Time Provider Department 04/14/22 [...] is now seen by Dr Rainey at [facility]. Call placed to their office ([phone]) and message left requesting a call back. PSS: can you please update pt's PCP info. Thanks, OJS Bustamante Pss 04/14/2022 2:03 PM Signed PCP updated in chart Makenna Kendall RN 04/17/2022 10:39 AM Signed Call placed to [facility]. Office is closed. JOS Bustamante RN 04/21/2022 12:55 PM Signed Message left with Dr Rainey's medical equipment repairer again today regarding this pt and the urgency of this being addressed. Will try again later today if I don't hear back from their office. JOS Bustamante RN 04/21/2022 1:35 PM Signed Spoke with Pankaj at Dr Rainey's office. Recent records and labs faxed to [phone] per office request. JOS Bustamante RN 04/21/2022 [...] Status:Closed by MAKENNA KENDALL on 04/21/22 Normal [facility] Comprehensive metabolic 2000 panelon 04-14-2022 Albumin [Mass/Vol] 3.5 g/dL Low 3.9-4.9 [facility] Comment on above: Order Comment: Speci men Type: BLOOD SPECIMEN Ordering Facility: [facility] Address: [address] [place] [address] Performed By: #### 2 4323-8 #### [facility] CLIA [id number] [address] [place] [address] ALP [Catalytic activity/Vol] 120 U/L Normal 34-123 [facility] Comment on above: Order Comment: Speci men Type: BLOOD SPECIMEN Ordering Facility: [facility] Address: [address] [id number] Performed By: #### 2 4323-8 #### [facility] CLIA [id number] [address] [place] [address] ALT [Catalytic activity/Vol] 15 U/L Normal 7-38 [facility] Comment on above: Order Comment: Speci men Type: BLOOD SPECIMEN Ordering Facility: [facility] Address: [address] [place] [address] Performed By: #### 2 4323-8 #### [facility] CLIA [id number] [address] [place] [address] Anion gap [Moles/Vol] 13 mmol/L Normal 9-18 [facility] Comment on above: Order Comment: Speci men Type: BLOOD SPECIMEN Ordering Facility: [facility] Address: [address] [place] [address] Performed By: #### 2 4323-8 #### [facility] CLIA [id number] [address] [place] [address]259 AST [Catalytic activity/Vol] 21 U/L Normal 13-35 [facility] Comment on above: Order Comment: Speci men Type: BLOOD SPECIMEN Ordering Facility: [facility] Address: [address] [place] [address] Performed By: #### 2 4323-8 #### [facility] CLIA [id number] [address] [place] [address] Bilirubin [Mass/Vol] 0.2 mg/dL Normal 0.2-1.3 [facility] Comment on above: Order Comment: Speci men Type: BLOOD SPECIMEN Ordering Facility: [facility] Address: [address] [place] [address] Performed By: #### 2 4323-8 #### [facility] CLIA [id number] [address] [place] [address]238 Calcium [Mass/Vol] 9.1 mg/dL Normal 8.5-10.2 [facility] Comment on above: Order Comment: Speci men Type: BLOOD SPECIMEN Ordering Facility: [facility] Address: [address] [address] Performed By: #### 2 4323-8 #### [facility] CLIA [id number] [address] [place] [address] Chloride [Moles/Vol] 103 mmol/L Normal 97-105 [facility] Comment on above: Order Comment: Speci men Type: BLOOD SPECIMEN Ordering Facility: [facility] Address: [address] [place] [address] Performed By: #### 2 4323-8 #### [facility] CLIA [id number] [address] [place] [address] 85343 CO2 [Moles/Vol] 22 mmol/L Normal 22-30 [facility] Comment on above: Order Comment: Speci men Type: BLOOD SPECIMEN Ordering Facility: [facility] Address: [address] [place] [address] Performed By: #### 2 4323-8 #### [facility] CLIA [id number] [address] [place] [address] Creatinine [Mass/Vol] 0.53 mg/dL Low 0.58-0.96 [facility] Comment on above: Order Comment: Speci men Type: BLOOD SPECIMEN Ordering Facility: [facility] Address: [address] [place] [address] Performed By: #### 2 4323-8 #### [facility] CLIA [id number] [address] [place] [address] ESTIMATED GLOMERULAR FILTRATION RATE 99 mL/min/1.73m??? Normal >=60 [facility] Comment on above: Order Comment: Speci men Type: BLOOD SPECIMEN Ordering Facility: [facility] Address: [address] [place] [address] Result Comment: Kaylynn mated Glomerular Filtration Rate [...] GFR. Performed By: #### 2 4323-8 #### [facility] CLIA [id number] [address] [place] [address] Glucose [Mass/Vol] 508 mg/dL High 74-99 [facility] Comment on above: Order Comment: Nel sher Type: BLOOD SPECIMEN Ordering Facility: [facility] Address: [address] [place], [place] [phone] Result Comment: The [place] Diabetes Association (ADA) provides guidance for cutoff [...] Standards of Medical Care in Diabetes 2016, [place] Diabetes Association. Diabetes Care. 2016.39(Suppl 1). Performed By: #### 2 4323-8 #### [facility] CLIA [id number] [address] [place] [address] Potassium [Moles/Vol] 3.6 mmol/L Low 3.7-5.1 [facility] Comment on above: Order Comment: Nel sher Type: BLOOD SPECIMEN Ordering Facility: [facility] Address: [address] [place] [address] Performed By: #### 2 4323-8 #### [facility] CLIA [id number] [address] [place] [address] Protein [Mass/Vol] 5.4 g/dL Low 6.3-8.0 [facility] Comment on above: Order Comment: Nel sher Type: BLOOD SPECIMEN Ordering Facility: [facility] Address: [address] [address] Performed By: #### 2 4323-8 #### [facility] CLIA [id number] [address] [place] [address]8765 Sodium [Moles/Vol] 138 mmol/L Normal 136-144 [facility] Comment on above: Order Comment: Speci men Type: BLOOD SPECIMEN Ordering Facility: [facility] Address: [address] [place] [address] Performed By: #### 2 4323-8 #### [facility] CLIA [id number] [address] [place] [address] 78328 Urea nitrogen [Mass/Vol] 8 mg/dL Normal 7-21 [facility] Comment on above: Order Comment: Speci men Type: BLOOD SPECIMEN Ordering Facility: [facility] Address: [address] [place] [address] Performed By: #### 2 4323-8 #### [facility] CLIA [id number] [address] [place] [address] Ferritin SerPl-mCncon 2021 Ferritin [Mass/Vol] 15.5 ng/mL Normal 14.7-205.1 [facility] Comment on above: Order Comment: Speci men Type: BLOOD SPECIMEN Ordering Facility: [facility] Address: [address] [place] [address] Performed By: #### 2 276-4, 53513-1 #### [facility] CLIA [id number] [address] [place], [place] [id number] [id number] [place] GLUCOSE, BLOOD (POC)on 04-14 Glucose [Mass/Vol] 373 mg/dL Abnormal 74 - 99 mg/dL [facility] Iron and Iron binding capaci ty panelon 04-14-2022 Iron [Mass/Vol] 17 ug/dL Low 41-186 [facility] Comment on above: Order Comment: Speci men Type: BLOOD SPECIMEN Ordering Facility: [facility] Address: [address] [place] [address] Performed By: #### 2 276-4, 10659-2 #### [facility] CLIA [id number] [address] [place] [address] [place] Iron binding capacity [Mass/Vol] 337 ug/dL Normal 232-386 [facility] Comment on above: Order Comment: Speci men Type: BLOOD SPECIMEN Ordering Facility: [facility] Address: [address] [place], [place] [address] Performed By: #### 2 276-4, 78620-6 #### [facility] CLIA [id number] [address] [place] [address] [place] Iron/TIBC [Molar ratio] 5.0 % Low 15.0-57.0 [facility] Comment on above: Order Comment: Speci men Type: BLOOD SPECIMEN Ordering Facility: [facility] Address: [address] [place], [place] [address] Performed By: #### 2 276-4, 57621-0 #### [facility] CLIA [id number] [address] [place] [address] [place] Retics #on 04-14-2022 Reticulocytes (Bld) [#/Vol] 0.72864 10*3/uL Normal 0.018-0.100 [facility] Comment on above: Order Comment: Speci men Type: BLOOD SPECIMEN Ordering Facility: [facility] Address: [address] [place], [place] [address] Performed By: #### 5 7021-8, 09028-1 #### [facility] CLIA [id number] [address] [place] [address] Reticulocytes (Bld) [#/Vol]o n 04-14-2022 Reticulocytes/100 RBC (Bld) 1.8 % Normal 0.4-2.0 [facility] Comment on above: Order Comment: Speci men Type: BLOOD SPECIMEN Ordering Facility: [facility] Address: [address] [place], [place] [address] Performed By: #### 5 7021-8, 78472-0 #### [facility] CLIA [id number] [address] [place] [address] CBC AUTO DIFFon 04-08-2022 BASO # 0.0 103/ul Normal 0.0-0.1 [facility] Comment on above: Performed By: #### A 1C #### [facility] [address] [place] [address] Dr. Julisa Lowe Basophils/100 WBC (Bld) 0.4 % Normal 0.2-2.0 [facility] Comment on above: Performed By: #### A 1C #### [facility] [address] [place] [address] Dr. Julisa Lowe EO # 0.2 103/ul Normal 0.0-0.7 [facility] Comment on above: Performed By: #### A 1C #### [facility] [address] [place] [address] Dr. Julisa Lowe Eosinophils/100 WBC (Bld) 1.7 % Normal 0.9-7.0 [facility] Comment on above: Performed By: #### A 1C #### [facility] [address] [place] [address] Dr. Julisa Lowe Erythrocyte distribution width (RBC) [Ratio] 20.8 % Critically high 11.0-15.0 [facility] Comment on above: Performed By: #### A 1C #### [facility] [address] [place] [address] Dr. Julisa Lowe Hematocrit (Bld) [Volume fraction] 34.9 % Critically low 36.0-48.0 [facility] Comment on above: Performed By: #### A 1C #### [facility] [address] [place] [address] Dr. Julisa Lowe Hemoglobin (Bld) [Mass/Vol] 10.0 g/dL Critically low 12.0-16.0 [facility] Comment on above: Performed By: #### A 1C #### [facility] [address] [place] [address] Dr. Julisa Lowe IG # 0.08 10e3/ul Critically high 0.00-0.03 [facility] Comment on above: Performed By: #### A 1C #### [facility] [address] [place] [address] Dr. Julisa Lowe IG % 0.7 % Critically high 0.0-0.5 [facility] Comment on above: Performed By: #### A 1C #### [facility] [address] [place] [address] Dr. Julisa Lowe LYMPH # 3.6 103/ul Normal 1.2-3.8 [facility] Comment on above: Performed By: #### A 1C #### [facility] [address] [place] [address] Dr. Julisa Lowe Lymphocytes/100 WBC (Bld) 33.3 % Normal 20.5-60.0 [facility] Comment on above: Performed By: #### A 1C #### [facility] [address] [place] [address] Dr. Julisa Lowe MANUAL DIFF REQ NO Normal [facility] Comment on above: Performed By: #### A 1C #### [facility] [address] [place] [address] Dr. Julisa Lowe MCH (RBC) [Entitic mass] 20.2 pg Critically low 26.7-34.0 [facility] Comment on above: Performed By: #### A 1C #### [facility] [address] [place] [address] Dr. Julisa Lowe MCHC (RBC) [Mass/Vol] 28.7 g/dL Critically low 29.9-35.2 [facility] Comment on above: Performed By: #### A 1C #### [facility] [address] [place] [address] Dr. Julisa Lowe MCV (RBC) [Entitic vol] 70.6 fL Critically low 81.0-99.0 [facility] Comment on above: Performed By: #### A 1C #### [facility] [address] [place] [address] Dr. Julisa Lowe MONO # 0.6 103/ul Normal 0.3-0.8 [facility] Comment on above: Performed By: #### A 1C #### [facility] [address] [place] [address] Dr. Julisa Lowe Monocytes/100 WBC (Bld) 5.4 % Normal 1.7-12.0 [facility] Comment on above: Performed By: #### A 1C #### [facility] [address] [place] [address] Dr. Julisa Lowe NEUT # 6.4 103/ul Normal 1.4-6.5 [facility] Comment on above: Performed By: #### A 1C #### [facility] [address] [place] [address] Dr. Julisa Lowe Neutrophils/100 WBC (Bld) 58.5 % Normal 43.0-75.0 [facility] Comment on above: Performed By: #### A 1C #### [facility] [address] [place] [address] Dr. Julisa Lowe Platelet mean volume (Bld) [Entitic vol] 8.1 fL Critically low 9.5-13.5 [facility] Comment on above: Performed By: #### A 1C #### [facility] [address] [place] [address] Dr. Julisa Lowe PLT 325 103/ul Normal 150-450 [facility] Comment on above: Performed By: #### A 1C #### [facility] [address] [place] [address] Dr. Julisa Lowe RBC 4.94 106/ul Normal 4.20-5.40 [facility] Comment on above: Performed By: #### A 1C #### [facility] [address] [place] [address] Dr. Julisa Lowe WBC 10.9 103/ul Normal 4.0-11.0 [facility] Comment on above: Performed By: #### A 1C #### [facility] [address] [place] [address] Dr. Julisa Lowe FERRITINon 04-08-2022 Ferritin [Mass/Vol] 15.0 ng/mL Normal 8.0-252.0 [facility] Comment on above: Performed By: #### A 1C #### [facility] [address] [place] [address] Dr. Julisa Hopkins 04-06-2022 CNPN Telephone (NCCAP) ARIADNEROBINA ([id number]) 1950 F Date Time Provider Department 04/06/22 CHRISTI FINK During your visit today, we recorded the following information about you: Makenna Hidalgo Sec 04/06/2022 7:49 AM Signed Please send records to [facility] office thanks! MD Tj Thompson; Makenna Hidalgo Sec Please refer her to GI for an upper endoscopy. ?Thanks [facility] 04/06/2022 8:12 AM Signed Gladys: Information ready for you. [facility] Shaye Gonzalez [facility] 04/06/2022 8:57 AM Signed Records faxed to Dr. Rich. Adrienne Weinstein [facility] 04/09/2022 8:40 AM Signed Called Angélica Romano spoke with [facility]. She states they have received this referral and their referral dept will be calling patient soon to schedule. I will call back sometime next week check on status of this referral. Adrienne Weinstein [facility] 04/13/2022 1:18 PM Signed Called Angélica Romano spoke with [facility]. She states they have called left patient message to call them back to schedule. [facility] 04/16/2022 9:07 AM Signed Called Angélica Romano spoke with [facility]. She states they have patient scheduled to see Dr Patel on 05/12 for EGD. [facility] Allergies As of Date: 04/06/2022 Noted [...] to chronic blood los*04/03/2022 Encounter Status:Closed by JT HUNTER on 04/16/22 [facility] CNOVSPon 04-03-2022 CNOVSP Visit (SP) Office ([facility]) ROBINA RON ([id number]) 1950 F Date Time Provider Department 04/03/22 4:30 PM CHRISTI FINK During your visit today, we recorded the following information about you: Temperature Pulse Respiration Blood pressure 97.4 degrees 90/minute 16/minute 107/38 Weight Height 53.6 kg 1.524 m Christi Fink MD 04/04/2022 11:07 AM Signed PATIENT NAME: Robina Ron CLINIC NO.: [id number] ATTENDING PHYSICIAN: Christi Fink MD DATE OF [...] not taking: Reported on 03/31/2022 ) - Shtdx-4-KEM-EPA-Fish Oil 1,000 mg (120 mg-180 mg) cap [...] [Oxycodone* Mental (more content not included)... Normal [facility] ECHO LIMITED STUDYon 022 ECHO LIMITED STUDY Patient: ROBINA RON Exam Date: 02/06/2022 : 1950 Gender:F Ordering : EDD WADE Admission #: [id number] Family : Order #: [id number] CLICK HERE TO VIEW EXAM ECHOCARDIOGRAM REPORT [...] Area(A4C): 21.60 cm2 Left Atrium Systolic Volume(A2C): 62869 mm3 Left Atrium Systolic Volume(A4C): 48143 mm3 Mitral Valve Right Ventricle Aorta AO Root Diam: 3.10 cm Aortic Valve Tricuspid Valve Pulmonic Valve Right Atrium Dictated by: Alfred Suggs M.D. on 02/06/2022 at 15:55 Approved by: Alfred Suggs M.D. on 02/06/2022 at 16:11 Normal [facility] CBC AUTO DIFFon 01-23-2022 BASO # 0.0 103/ul Normal 0.0-0.1 [facility] Comment on above: Performed By: #### A 1C #### [facility] [address] [address] [address] Julisa Lowe Basophils/100 WBC (Bld) 0.3 % Normal 0.2-2.0 [facility] Comment on above: Performed By: #### A 1C #### [facility] [address] [address] [address] Julisa Lowe EO # 0.1 103/ul Normal 0.0-0.7 [facility] Comment on above: Performed By: #### A 1C #### [facility] [address] [address] [address] Julisa Lowe Eosinophils/100 WBC (Bld) 1.0 % Normal 0.9-7.0 [facility] Comment on above: Performed By: #### A 1C #### [facility] [address] [place] [address] Dr. Julisa Lowe Erythrocyte distribution width (RBC) [Ratio] 18.6 % Critically high 11.0-15.0 [facility] Comment on above: Performed By: #### A 1C #### [facility] [address] [place] [address] Dr. Julisa Lowe Hematocrit (Bld) [Volume fraction] 29.6 % Critically low 36.0-48.0 [facility] Comment on above: Performed By: #### A 1C #### [facility] [address] [place] [address] Dr. Julisa Lowe Hemoglobin (Bld) [Mass/Vol] 8.5 g/dL Critically low 12.0-16.0 [facility] Comment on above: Performed By: #### A 1C #### [facility] [address] [place] [address] Dr. Julisa Lowe IG # 0.09 10e3/ul Critically high 0.00-0.03 [facility] Comment on above: Performed By: #### A 1C #### [facility] [address] [place] [address] Dr. Julisa Lowe IG % 0.7 % Critically high 0.0-0.5 [facility] Comment on above: Performed By: #### A 1C #### [facility] [address] [place] [address] Dr. Julisa Lowe LYMPH # 3.2 103/ul Normal 1.2-3.8 [facility] Comment on above: Performed By: #### A 1C #### [facility] [address] [place] [address] Dr. Julisa Lowe Lymphocytes/100 WBC (Bld) 25.5 % Normal 20.5-60.0 [facility] Comment on above: Performed By: #### A 1C #### [facility] [address] [place] [address] Dr. Julisa Lowe MANUAL DIFF REQ NO Normal [facility] Comment on above: Performed By: #### A 1C #### [facility] [address] [place] [address] Dr. Julisa Lowe MCH (RBC) [Entitic mass] 20.2 pg Critically low 26.7-34.0 [facility] Comment on above: Performed By: #### A 1C #### [facility] [address] [place] [address] Dr. Julisa Lowe MCHC (RBC) [Mass/Vol] 28.7 g/dL Critically low 29.9-35.2 [facility] Comment on above: Performed By: #### A 1C #### [facility] [address] [place] [address] Dr. Julisa Lowe MCV (RBC) [Entitic vol] 70.5 fL Critically low 81.0-99.0 [facility] Comment on above: Performed By: #### A 1C #### [facility] [address] [place] [address] Dr. Julisa Lowe MONO # 0.6 103/ul Normal 0.3-0.8 [facility] Comment on above: Performed By: #### A 1C #### [facility] [address] [place] [address] Dr. Julisa Lowe Monocytes/100 WBC (Bld) 4.8 % Normal 1.7-12.0 [facility] Comment on above: Performed By: #### A 1C #### [facility] [address] [place] [address] Dr. Julisa Lowe NEUT # 8.4 103/ul Critically high 1.4-6.5 [facility] Comment on above: Performed By: #### A 1C #### [facility] [address] [place] [address] Dr. Julisa Lowe Neutrophils/100 WBC (Bld) 67.7 % Normal 43.0-75.0 [facility] Comment on above: Performed By: #### A 1C #### [facility] [address] [address] [address] Julisa Lowe Platelet mean volume (Bld) [Entitic vol] 7.9 fL Critically low 9.5-13.5 [facility] Comment on above: Performed By: #### A 1C #### [facility] [address] [place] [address] Dr. Julisa Lowe PLT 252 103/ul Normal 150-450 [facility] Comment on above: Performed By: #### A 1C #### [facility] [address] [address] [address] Julisa Lowe RBC 4.20 106/ul Normal 4.20-5.40 [facility] Comment on above: Performed By: #### A 1C #### [facility] [address] [place] [address] Dr. Julisa Lowe WBC 12.4 103/ul Critically high 4.0-11.0 [facility] Comment on above: Performed By: #### A 1C #### [facility] [address] [place] [address] Dr. Julisa Lowe FERRITINon 01-23-2022 Ferritin [Mass/Vol] 7.0 ng/mL Critically low 8.0-252.0 [facility] Comment on above: Performed By: #### P OCGLUC #### [facility] [address] [place] [address] Dr. Julisa Lowe GLYCOHEMOGLOBIN A1Con 2021 ADA RECOMMENDATION SEE BELOW Normal [facility] Comment on above: Result Comment: ADA RECOMMENDED LIMIT 4.0 - 6.0 ADA THERAPEUTIC TARGET < 7.0 ACTION SUGGESTED > 7.0 Performed By: #### A 1C #### [facility] [address] [place] [address] Dr. Julisa Lowe Glucose [Mass/Vol] 197 mg/dL Normal [facility] Comment on above: Performed By: #### A 1C #### [facility] [address] [place] [address] Dr. Julisa Lowe HbA1c (Bld) [Mass fraction] 8.5 % Critically high 4.5-6.2 [facility] Comment on above: Performed By: #### A 1C #### [facility] [address] [place] [address] Dr. Julisa Lowe TSHon 01-23-2022 TSH 0.501 uIU/mL Normal 0.358-3.740 [facility] Comment on above: Performed By: #### A 1C #### [facility] [address] [place] [address] Dr. Julisa Lowe TSH RANGE SEE BELOW Normal [facility] Comment on above: Result Comment: <0.3 4 UIU/ml HYPERTHYROID 0.34-5.60 UIU/ml EUTHYROID >5.60 UIU/ml HYPOTHYROID Performed By: #### A 1C #### [facility] [address] [place] [address] Dr. Julisa Lowe VIT B12 AND FOLATEon 022 Cobalamin (Vitamin B12) [Mass/Vol] 193.0 pg/mL Normal 193.0-986.0 [facility] Comment on above: Performed By: #### P OCGLUC #### [facility] [address] [place] [address] Dr. Julisa Lowe FOLATE 12.90 ng/mL Normal 8.60-58.90 [facility] Comment on above: Performed By: #### P OCGLUC #### [facility] [address] [place] [address] Dr. Julisa Lowe CULTURE URINEon 12-23-2021 CULTURE [...] Trimethoprim/Sulfamet hoxazole >=320 R F Normal [facility] Comment on above: Performed By: #### H STROPN #### [facility] [address] [place], [place] [address] Dr. Julisa Lowe NM STRESS/REST MULTIon 12-22 NM STRESS/REST MULTI Patient: ROBINA RON Exam Date: 12/22/2021 : 1950 Gender:F Ordering : EDD WADE Admission #: [id number] Family : DR ESTUARDO SANCHEZ . Order #: [id number] CLICK HERE TO VIEW EXAM RADIOLOGY REPORT [...] M.D. on 12/22/2021 at 12:45 Normal [facility] CBC AUTO DIFFon 12-21-2021 BASO # 0.0 103/ul Normal 0.0-0.1 [facility] Comment on above: Performed By: #### A 1C #### [facility] [address] [address] [address] Julisa Lowe Basophils/100 WBC (Bld) 0.4 % Normal 0.2-2.0 [facility] Comment on above: Performed By: #### A 1C #### [facility] [address] [place] [address] Dr. Julisa Lowe EO # 0.1 103/ul Normal 0.0-0.7 [facility] Comment on above: Performed By: #### A 1C #### [facility] [address] [place] [address] Dr. Julisa Lowe Eosinophils/100 WBC (Bld) 1.3 % Normal 0.9-7.0 [facility] [facility] Comment on above: Performed By: #### A 1C #### [facility] [address] [place] [address] Dr. Julisa Lowe Erythrocyte distribution width (RBC) [Ratio] 19.7 % Critically high 11.0-15.0 [facility] Comment on above: Performed By: #### A 1C #### [facility] [address] [place] [address] Dr. Julisa Lowe Hematocrit (Bld) [Volume fraction] 31.6 % Critically low 36.0-48.0 [facility] Comment on above: Performed By: #### A 1C #### [facility] [address] [place] [address] Dr. Julisa Lowe Hemoglobin (Bld) [Mass/Vol] 9.2 g/dL Critically low 12.0-16.0 [facility] Comment on above: Performed By: #### A 1C #### [facility] [address] [place] [address] Dr. Julsia Lowe IG # 0.07 10e3/ul Critically high 0.00-0.03 [facility] Comment on above: Performed By: #### A 1C #### [facility] [address] [place] [address] Dr. Julisa Lowe IG % 0.7 % Critically high 0.0-0.5 [facility] Comment on above: Performed By: #### A 1C #### [facility] [address] [place] [address] Dr. Julisa Lowe LYMPH # 3.2 103/ul Normal 1.2-3.8 [facility] Comment on above: Performed By: #### A 1C #### [facility] [address] [place] [address] Dr. Julisa Lowe Lymphocytes/100 WBC (Bld) 30.8 % Normal 20.5-60.0 [facility] Comment on above: Performed By: #### A 1C #### [facility] [address] [place] [address] Dr. Julisa Lowe MANUAL DIFF REQ NO Normal [facility] Comment on above: Performed By: #### A 1C #### [facility] [address] [place] [address] Dr. Julisa Lowe MCH (RBC) [Entitic mass] 20.4 pg Critically low 26.7-34.0 [facility] Comment on above: Performed By: #### A 1C #### [facility] [address] [place] [address] Dr. Julisa Lowe MCHC (RBC) [Mass/Vol] 29.1 g/dL Critically low 29.9-35.2 [facility] Comment on above: Performed By: #### A 1C #### [facility] [address] [place] [address] Dr. Julisa Lowe MCV (RBC) [Entitic vol] 69.9 fL Critically low 81.0-99.0 [facility] Comment on above: Performed By: #### A 1C #### [facility] [address] [place] [address] Dr. Julisa Lowe MONO # 0.8 103/ul Normal 0.3-0.8 [facility] Comment on above: Performed By: #### A 1C #### [facility] [address] [place] [address] Dr. Julisa Lowe Monocytes/100 WBC (Bld) 7.3 % Normal 1.7-12.0 [facility] Comment on above: Performed By: #### A 1C #### [facility] [address] [place] [address] Dr. Julisa Lowe NEUT # 6.2 103/ul Normal 1.4-6.5 [facility] Comment on above: Performed By: #### A 1C #### [facility] [address] [place] [address] Dr. Julisa Lowe Neutrophils/100 WBC (Bld) 59.5 % Normal 43.0-75.0 [facility] Comment on above: Performed By: #### A 1C #### [facility] [address] [place] [address] Dr. Julisa Lowe Platelet mean volume (Bld) [Entitic vol] 8.4 fL Critically low 9.5-13.5 [facility] Comment on above: Performed By: #### A 1C #### [facility] [address] [place] [address] Dr. Julisa Lowe PLT 301 103/ul Normal 150-450 [facility] Comment on above: Performed By: #### A 1C #### [facility] [address] [place] [address] Dr. Julisa Lowe RBC 4.52 106/ul Normal 4.20-5.40 [facility] Comment on above: Performed By: #### A 1C #### [facility] [address] [place] [address] Dr. Julisa Lowe WBC 10.4 103/ul Normal 4.0-11.0 [facility] Comment on above: Performed By: #### A 1C #### [facility] [address] [place] [address] Dr. Julisa Lowe POINT OF CARE GLUCOSEon 12-12-2021 Glucose [Mass/Vol] 183 mg/dL Critically high 74-106 [facility] Comment on above: Performed By: #### P OCGLUC #### [facility] [address] [place] [address] Dr. Julisa Lowe Glucose [Mass/Vol] 351 mg/dL Critically high 74-106 [facility] Comment on above: Performed By: #### H STROPN #### [facility] [address] [place] [address] Dr. Julisa Lowe PROF CHEM 8 (BAS METB)on Anion gap [Moles/Vol] 14.6 mmol/L Normal [facility] Comment on above: Performed By: #### S EDR #### [facility] [address] [address] [address] Julisa Lowe Calcium [Mass/Vol] 8.6 mg/dL Normal 8.5-10.1 [facility] Comment on above: Performed By: #### S EDR #### [facility] [address] [address] [address] Julisa Lowe Chloride [Moles/Vol] 107 mmol/L Normal 98-107 [facility] Comment on above: Performed By: #### S EDR #### [facility] [address] [place] [address] Dr. Julisa Lowe CO2 [Moles/Vol] 24.6 mmol/L Normal 22.0-30.0 [facility] Comment on above: Performed By: #### S EDR #### [facility] [address] [place] [address] Dr. Julisa Lowe Creatinine [Mass/Vol] 0.57 mg/dL Normal 0.52-1.04 [facility] Comment on above: Performed By: #### S EDR #### [facility] [address] [place] [address] Dr. Julisa Lowe EGFR-AF ERITREAN >60 Normal >=60 [facility] Comment on above: Performed By: #### S EDR #### [facility] [address] [address] [address] Julisa Lowe EGFR-NON AF ERITREAN >60 Normal >=60 [facility] Comment on above: Performed By: #### S EDR #### [facility] [address] [place] [address] Dr. Julisa Lowe Glucose [Mass/Vol] 189 mg/dL Critically high 74-106 [facility] Comment on above: Performed By: #### S EDR #### [facility] [address] [place] [address] Dr. Julisa Lowe Potassium [Moles/Vol] 4.2 mmol/L Normal 3.4-5.0 [facility] Comment on above: Performed By: #### S EDR #### [facility] [address] [place] [address] Dr. Julisa Lowe Sodium [Moles/Vol] 142 mmol/L Normal 137-145 [facility] Comment on above: Performed By: #### S EDR #### [facility] [address] [place] [address] Dr. Julisa Lowe Urea nitrogen [Mass/Vol] 16.0 mg/dL Normal 7.0-18.0 [facility] Comment on above: Performed By: #### S EDR #### [facility] [address] [place] [address] Dr. Julisa Lowe Urea nitrogen/Creatinine [Mass ratio] 28.1 mg/mg Normal [facility] Comment on above: Performed By: #### S EDR #### [facility] [address] [place] [address] Dr. Julisa Lowe BNPon 12-20-2021 Natriuretic peptide B (Bld) [Mass/Vol] 880.0 pg/mL Normal <=900.0 [facility] Comment on above: Performed By: #### H STROPN #### [facility] [address] [place] [address] Dr. Julisa Lowe CARDIAC TRUONG ADMITon 022 CK <20 Critically low 30-135 [facility] Comment on above: Performed By: #### H STROPN #### [facility] [address] [place] [address] Dr. Julisa Lowe CK.MB [Mass/Vol] ng/mL Normal <=2.37 [facility] Comment on above: Performed By: #### H STROPN #### [facility] [address] [place] [address] Dr. Julisa Lowe HSTROP 15.1 pg/mL Normal 4.0-35.5 [facility] Comment on above: Result Comment: CUT- OFF POINTS HAVE BEEN ESTABLISHED BASED ON THE FOURTH UNIVERSAL DEFINITIONS OF MYOCARDIAL INFARCTION. THE UPPER REFERENCE LIMIT (URL) OF TROPONIN, DEFINED THE 99TH PERCENTILE OF cTnI DISTRIBUTION IN A REFERENCE POPULATION, HAS BEEN CONFIRMED THE DECISION THRESHOLD FOR NE DIAGNOSIS. Performed By: #### H STROPN #### [facility] [address] [place] [address] Dr. Julisa Lowe RAJ 24.0 ng/mL Normal <=61.5 [facility] Comment on above: Performed By: #### H STROPN #### [facility] [address] [place] [address] Dr. Julisa Lowe CBC AUTO DIFFon 12-20-2021 BASO # 0.1 103/ul Normal 0.0-0.1 [facility] Comment on above: Performed By: #### S EDR #### [facility] [address] [place] [address] Dr. Julisa Lowe Basophils/100 WBC (Bld) 0.5 % Normal 0.2-2.0 [facility] Comment on above: Performed By: #### S EDR #### [facility] [address] [place] [address] Dr. Julisa Lowe EO # 0.1 103/ul Normal 0.0-0.7 [facility] Comment on above: Performed By: #### S EDR #### [facility] [address] [place] [address] Dr. Julisa Lowe Eosinophils/100 WBC (Bld) 1.0 % Normal 0.9-7.0 [facility] Comment on above: Performed By: #### S EDR #### [facility] [address] [place] [address] Dr. Julisa Lowe Erythrocyte distribution width (RBC) [Ratio] 19.8 % Critically high 11.0-15.0 [facility] Comment on above: Result Comment: slig ht poikilocytosis, moderate anisocytosis, Performed By: #### S EDR #### [facility] [address] [place] [address] Dr. Julisa Lowe Hematocrit (Bld) [Volume fraction] 32.7 % Critically low 36.0-48.0 [facility] Comment on above: Performed By: #### S EDR #### [facility] [address] [place] [address] Dr. Julisa Lowe Hemoglobin (Bld) [Mass/Vol] 9.6 g/dL Critically low 12.0-16.0 [facility] Comment on above: Performed By: #### S EDR #### [facility] [address] [place] [address] Dr. Julisa Lowe IG # 0.07 10e3/ul Critically high 0.00-0.03 [facility] Comment on above: Performed By: #### S EDR #### [facility] [address] [place] [address] Dr. Julisa Lowe IG % 0.7 % Critically high 0.0-0.5 [facility] Comment on above: Performed By: #### S EDR #### [facility] [address] [place] [address] Dr. Julisa Lowe LYMPH # 3.1 103/ul Normal 1.2-3.8 [facility] Comment on above: Performed By: #### S EDR #### [facility] [address] [place] [address] Dr. Julisa Lowe Lymphocytes/100 WBC (Bld) 29.7 % Normal 20.5-60.0 [facility] Comment on above: Performed By: #### S EDR #### [facility] [address] [place] [address] Dr. Julisa Lowe MANUAL DIFF REQ NO Normal [facility] Comment on above: Performed By: #### S EDR #### [facility] [address] [place] [address] Dr. Julisa Lowe MCH (RBC) [Entitic mass] 20.5 pg Critically low 26.7-34.0 [facility] Comment on above: Performed By: #### S EDR #### [facility] [address] [place] [address] Dr. Julisa Lowe MCHC (RBC) [Mass/Vol] 29.4 g/dL Critically low 29.9-35.2 [facility] Comment on above: Performed By: #### S EDR #### [facility] [address] [address] [address] Julisa Lowe MCV (RBC) [Entitic vol] 69.9 fL Critically low 81.0-99.0 [facility] Comment on above: Result Comment: few ovalocytes, moderate hypochromasia Performed By: #### S EDR #### [facility] [address] [address] [address] Julisa Lowe MONO # 0.6 103/ul Normal 0.3-0.8 [facility] Comment on above: Performed By: #### S EDR #### [facility] [address] [place] [address] Dr. Julisa Lowe Monocytes/100 WBC (Bld) 5.6 % Normal 1.7-12.0 [facility] Comment on above: Performed By: #### S EDR #### [facility] [address] [place] [address] Dr. Julisa Lowe NEUT # 6.5 103/ul Normal 1.4-6.5 [facility] Comment on above: Performed By: #### S EDR #### [facility] [address] [place] [address] Dr. Julisa Lowe Neutrophils/100 WBC (Bld) 62.5 % Normal 43.0-75.0 [facility] Comment on above: Performed By: #### S EDR #### [facility] [address] [address] [address] Julisa Lowe Platelet mean volume (Bld) [Entitic vol] 8.8 fL Critically low 9.5-13.5 [facility] Comment on above: Performed By: #### S EDR #### [facility] [address] [place] [address] Dr. Julisa Lowe PLT 280 103/ul Normal 150-450 [facility] Comment on above: Performed By: #### S EDR #### [facility] [address] [place] [address] Dr. Julisa Lowe RBC 4.68 106/ul Normal 4.20-5.40 [facility] Comment on above: Performed By: #### S EDR #### [facility] [address] [place] [address] Dr. Julisa Lowe WBC 10.5 103/ul Normal 4.0-11.0 [facility] Comment on above: Performed By: #### S EDR #### [facility] [address] [place] [address] Dr. Julisa Lowe Covid-19 PCR ([facility])on SARS-CoV-2 (COVID-19) RNA CHALINO+probe Ql (Unsp spec) Not detected Normal NOT DETECTED [facility] Comment on above: Result Comment: When [...] for this test is supported by the [place] of [employer] and Human Service's declaration that [...] used). Performed By: #### P OCGLUC #### [facility] [address] [place] [address] Dr. Julisa Lowe ER URINE PROFILEon 2 Bilirubin Ql (U) Negative Normal NEGATIVE [facility] Comment on above: Performed By: #### S EDR #### [facility] [address] [place] [address] Dr. Julisa Lowe Clarity (U) SL CLOUDY Abnormal CLEAR [facility] Comment on above: Performed By: #### S EDR #### [facility] [address] [place] [address] Dr. Julisa Lowe Color (U) LT. YELLOW Normal YELLOW [facility] Comment on above: Performed By: #### S EDR #### [facility] [address] [address] [address] Julisa DAY A micrscopic examination will be performed if indicated. Normal [facility] Comment on above: Performed By: #### S EDR #### [facility] [address] [address] [address] Julias Lowe Glucose Ql (U) Negative Normal NEGATIVE [facility] Comment on above: Performed By: #### S EDR #### [facility] [address] [address] [address] Julisa Lowe Hemoglobin Ql (U) Negative Normal NEGATIVE [facility] Comment on above: Performed By: #### S EDR #### [facility] [address] [address] [address] Julisa Lowe Ketones Ql (U) Negative Normal NEGATIVE [facility] Comment on above: Performed By: #### S EDR #### [facility] [address] [address] [address] Julisa Lowe LEUKOCYTES TRACE Abnormal NEGATIVE [facility] Comment on above: Performed By: #### S EDR #### [facility] [address] [address] [address] Julisa Lowe Nitrite Ql (U) Negative Normal NEGATIVE [facility] Comment on above: Performed By: #### S EDR #### [facility] [address] [address] [address] Julisa Lowe pH (U) 7.5 [pH] Normal 5-9 [facility] Comment on above: Performed By: #### S EDR #### [facility] [address] [address] [address] Julisa Lowe Protein (U) [Mass/Vol] 100 mg/dL Abnormal NEGAT CRISTOPHER/ TRACE [facility] Comment on above: Performed By: #### S EDR #### [facility] [address] [place] [address] Dr. Julisa Lowe SPEC GRAVITY 1.020 Normal 1.005-<=1.025 [facility] Comment on above: Performed By: #### S EDR #### [facility] [address] [address] [address] Julisa Lowe UR MICRO IND INDICATED Normal [facility] Comment on above: Performed By: #### S EDR #### [facility] [address] [address] [address] Julisa Lowe Urobilinogen Qn (U) 0.2 {Shirley'U}/dL Normal 0.2 - 1. 0 [facility] Comment on above: Performed By: #### S EDR #### [facility] [address] [address] [address] Julisa Lowe POINT OF CARE GLUCOSEon 04- Glucose [Mass/Vol] 145 mg/dL Critically high 74-106 [facility] Comment on above: Performed By: #### S EDR #### [facility] [address] [place] [address] Dr. Julisa Lowe PROF 14(COMP METB)on 022 Albumin [Mass/Vol] 3.0 g/dL Critically low 3.4-5.0 [facility] Comment on above: Performed By: #### H STROPN #### [facility] [address] [place] [address] Dr. Julisa Lowe Albumin/Globulin [Mass ratio] 1.0 {ratio} Normal [facility] Comment on above: Performed By: #### H STROPN #### [facility] [address] [place] [address] Dr. Julisa Lowe ALP [Catalytic activity/Vol] 110 U/L Normal 46-116 [facility] Comment on above: Performed By: #### H STROPN #### [facility] [address] [place] [address] Dr. Julisa Lowe ALT [Catalytic activity/Vol] 18 U/L Normal 14-59 [facility] Comment on above: Performed By: #### H STROPN #### [facility] [address] [place] [address] Dr. Julisa Lowe Anion gap [Moles/Vol] 13.4 mmol/L Normal [facility] Comment on above: Performed By: #### H STROPN #### [facility] [address] [address] [address] Julisa Lowe AST [Catalytic activity/Vol] 8 U/L Critically low 15-37 [facility] Comment on above: Performed By: #### H STROPN #### [facility] [address] [address] [address] Julisa Lowe Bilirubin [Mass/Vol] 0.3 mg/dL Normal 0.2-1.3 [facility] Comment on above: Performed By: #### H STROPN #### [facility] [address] [place] [address] Dr. Julisa Lowe Calcium [Mass/Vol] 8.5 mg/dL Normal 8.5-10.1 [facility] Comment on above: Performed By: #### H STROPN #### [facility] [address] [place] [address] Dr. Julisa Lowe Chloride [Moles/Vol] 106 mmol/L Normal 98-107 [facility] Comment on above: Performed By: #### H STROPN #### [facility] [address] [place] [address] Dr. Julisa Lowe CO2 [Moles/Vol] 26.3 mmol/L Normal 22.0-30.0 [facility] Comment on above: Performed By: #### H STROPN #### [facility] [address] [place] [address] Dr. Julisa Lowe Creatinine [Mass/Vol] 0.52 mg/dL Normal 0.52-1.04 [facility] Comment on above: Performed By: #### H STROPN #### [facility] [address] [place] [address] Dr. Julisa Lowe EGFR-AF ERITREAN >60 Normal >=60 [facility] Comment on above: Performed By: #### H STROPN #### [facility] [address] [place] [address] Dr. Julisa Lowe EGFR-NON AF ERITREAN >60 Normal >=60 [facility] Comment on above: Performed By: #### H STROPN #### [facility] [address] [address] [address] Julisa Lowe Globulin (S) [Mass/Vol] 3.0 g/dL Normal [facility] Comment on above: Performed By: #### H STROPN #### [facility] [address] [address] [address] Julisa Lowe Glucose [Mass/Vol] 147 mg/dL Critically high 74-106 [facility] Comment on above: Performed By: #### H STROPN #### [facility] [address] [address] [address] Julisa Lowe Potassium [Moles/Vol] 3.7 mmol/L Normal 3.4-5.0 [facility] Comment on above: Performed By: #### H STROPN #### [facility] [address] [address] [address] Julisa Lowe Protein [Mass/Vol] 6.0 g/dL Critically low 6.1-8.2 [facility] Comment on above: Performed By: #### H STROPN #### [facility] [address] [address] [address] Julisa Lowe Sodium [Moles/Vol] 142 mmol/L Normal 137-145 [facility] Comment on above: Performed By: #### H STROPN #### [facility] [address] [address] [address] Julisa Lowe Urea nitrogen [Mass/Vol] 13.0 mg/dL Normal 7.0-18.0 [facility] Comment on above: Performed By: #### H STROPN #### [facility] [address] [address] [address] Julisa Lowe Urea nitrogen/Creatinine [Mass ratio] 25.0 mg/mg Normal [facility] Comment on above: Performed By: #### H STROPN #### [facility] [address] [address] [address] Julisa Lowe PROTIMEon 12-20-2021 INR Coag (PPP) [Relative time] 0.94 {INR} Normal [facility] Comment on above: Performed By: #### S EDR #### [facility] [address] [place] [address] Dr. Julisa Lowe INR GUIDELINES SEE BELOW Normal [facility] Comment on above: Result Comment: NHI RED INR: 2.0 - 3.0 CONDITIONS NOT LISTED BELOW 2.5 - 3.5 FOR PROSTHETIC HEART VALVE REPLACEMENT 2.5 - 3.5 RECURRENT THROMBOSIS Performed By: #### S EDR #### [facility] [address] [address] [address] Julisa Lowe PT Coag (PPP) [Time] 10.2 s Normal 9.0-11.6 [facility] Comment on above: Performed By: #### S EDR #### [facility] [address] [place] [address] Dr. Julisa Lowe PTTon 12-20-2021 aPTT Coag (Bld) [Time] 21.7 s Critically low 22.3-36.2 [facility] Comment on above: Performed By: #### S EDR #### [facility] [address] [place] [address] Dr. Julisa Lowe TROPONIN, HIGH SENSITIVITYon 12-20-2021 HSTROP 16.3 pg/mL Normal 4.0-35.5 [facility] Comment on above: Result Comment: CUT- OFF POINTS HAVE BEEN ESTABLISHED BASED ON THE FOURTH UNIVERSAL DEFINITIONS OF MYOCARDIAL INFARCTION. THE UPPER REFERENCE LIMIT (URL) OF TROPONIN, DEFINED THE 99TH PERCENTILE OF cTnI DISTRIBUTION IN A REFERENCE POPULATION, HAS BEEN CONFIRMED THE DECISION THRESHOLD FOR NE DIAGNOSIS. Performed By: #### P OCGLUC #### [facility] [address] [place] [address] Dr. Julisa Lowe HSTROP 16.8 pg/mL Normal 4.0-35.5 [facility] Comment on above: Result Comment: CUT- OFF POINTS HAVE BEEN ESTABLISHED BASED ON THE FOURTH UNIVERSAL DEFINITIONS OF MYOCARDIAL INFARCTION. THE UPPER REFERENCE LIMIT (URL) OF TROPONIN, DEFINED THE 99TH PERCENTILE OF cTnI DISTRIBUTION IN A REFERENCE POPULATION, HAS BEEN CONFIRMED THE DECISION THRESHOLD FOR NE DIAGNOSIS. Performed By: #### H STROPN #### [facility] [address] [place] [address] Dr. Julisa Lowe URINE MICROSCOPIC ONLYon BACTERIA LARGE Abnormal NONE SEEN [facility] Comment on above: Performed By: #### S EDR #### [facility] [address] [place] [address] Dr. Julisa Lowe Bacteria identified Cx Nom (U) INDICATED Normal [facility] Comment on above: Performed By: #### S EDR #### [facility] [address] [place] [address] Dr. Julisa Lowe CAST NONE SEEN Normal NONE SEEN [facility] Comment on above: Performed By: #### S EDR #### [facility] [address] [place] [address] Dr. Julisa Lowe Crystals LM Nom (Urine sed) NONE SEEN Normal NONE SEEN [facility] Comment on above: Performed By: #### S EDR #### [facility] [address] [place] [address] Dr. Julisa Lowe Epithelial cells LM Ql (Urine sed) FEW Abnormal NONE SEEN /RARE [facility] Comment on above: Performed By: #### S EDR #### [facility] [address] [place] [address] Dr. Julisa Lowe MUCOUS NONE SEEN Normal NONE SEEN [facility] Comment on above: Performed By: #### S EDR #### [facility] [address] [place] [address] Dr. Julisa Lowe RBC 0-2 Normal 0-2 [facility] Comment on above: Performed By: #### S EDR #### [facility] [address] [place] [address] Dr. Julisa Lowe WBC 10-20 Abnormal NONE SEEN [facility] Comment on above: Performed By: #### S EDR #### [facility] [address] [place] [address] Dr. Julisa Lowe XR CHEST 1 Von [...] NGOZI NELSON Date: 2021-12-20 15:58 Normal [facility] JOSEE by IFAon 12-18-2021 Antinuclear Antibodies, IFA Negative Normal [facility] Comment on above: Result Comment: Nega tive <1:80 Borderline 1:80 Positive >1:80 ICAP nomenclature: [id number]-0 For more information about Hep-2 cell patterns use ANApatterns.org, the official website for the International Consensus on Antinuclear Antibody (JOSEE) Patterns (ICAP). Performed By: #### H STROPN #### [facility] [address] [place] [address] Dr. Julisa Lowe CBC AUTO DIFFon 12-15-2021 BASO # 0.0 103/ul Normal 0.0-0.1 [facility] Comment on above: Performed By: #### A 1C #### [facility] [address] [place] [address] Dr. Julisa Lowe Basophils/100 WBC (Bld) 0.3 % Normal 0.2-2.0 [facility] Comment on above: Performed By: #### A 1C #### [facility] [address] [place] [address] Dr. Julisa Lowe EO # 0.1 103/ul Normal 0.0-0.7 [facility] Comment on above: Performed By: #### A 1C #### [facility] [address] [place] [address] Dr. Julisa Lowe Eosinophils/100 WBC (Bld) 0.9 % Normal 0.9-7.0 [facility] Comment on above: Performed By: #### A 1C #### [facility] [address] [place] [address] Dr. Julisa Lowe Erythrocyte distribution width (RBC) [Ratio] 19.6 % Critically high 11.0-15.0 [facility] Comment on above: Performed By: #### A 1C #### [facility] [address] [place] [address] Dr. Julisa Lowe Hematocrit (Bld) [Volume fraction] 33.8 % Critically low 36.0-48.0 [facility] Comment on above: Performed By: #### A 1C #### [facility] [address] [place] [address] Dr. Julisa Lowe Hemoglobin (Bld) [Mass/Vol] 9.7 g/dL Critically low 12.0-16.0 [facility] Comment on above: Performed By: #### A 1C #### [facility] [address] [place] [address] Dr. Julisa Lowe IG # 0.13 10e3/ul Critically high 0.00-0.03 [facility] Comment on above: Performed By: #### A 1C #### [facility] [address] [place] [address] Dr. Julisa Lowe IG % 0.9 % Critically high 0.0-0.5 [facility] Comment on above: Performed By: #### A 1C #### [facility] [address] [place] [address] Dr. Julisa Lowe LYMPH # 3.5 103/ul Normal 1.2-3.8 [facility] Comment on above: Performed By: #### A 1C #### [facility] [address] [place] [address] Dr. Julisa Lowe Lymphocytes/100 WBC (Bld) 25.4 % Normal 20.5-60.0 [facility] Comment on above: Performed By: #### A 1C #### [facility] [address] [place] [address] Dr. Julisa Lowe MANUAL DIFF REQ NO Normal [facility] Comment on above: Performed By: #### A 1C #### [facility] [address] [place] [address] Dr. Julisa Lowe MCH (RBC) [Entitic mass] 20.4 pg Critically low 26.7-34.0 [facility] Comment on above: Performed By: #### A 1C #### [facility] [address] [place] [address] Dr. Julisa Lowe MCHC (RBC) [Mass/Vol] 28.7 g/dL Critically low 29.9-35.2 [facility] Comment on above: Performed By: #### A 1C #### [facility] [address] [address] [address] Julisa Lowe MCV (RBC) [Entitic vol] 71.2 fL Critically low 81.0-99.0 [facility] Comment on above: Performed By: #### A 1C #### [facility] [address] [address] [address] Julisa Lowe MONO # 0.7 103/ul Normal 0.3-0.8 [facility] Comment on above: Performed By: #### A 1C #### [facility] [address] [place] [address] Dr. Julisa Lowe Monocytes/100 WBC (Bld) 5.0 % Normal 1.7-12.0 [facility] Comment on above: Performed By: #### A 1C #### [facility] [address] [place] [address] Dr. Julisa Lowe NEUT # 9.3 103/ul Critically high 1.4-6.5 [facility] Comment on above: Performed By: #### A 1C #### [facility] [address] [place] [address] Dr. Julisa Lowe Neutrophils/100 WBC (Bld) 67.5 % Normal 43.0-75.0 [facility] Comment on above: Performed By: #### A 1C #### [facility] [address] [address] [address] Julisa Lowe Platelet mean volume (Bld) [Entitic vol] 8.2 fL Critically low 9.5-13.5 [facility] Comment on above: Performed By: #### A 1C #### [facility] [address] [place] [address] Dr. Julisa Lowe PLT 301 103/ul Normal 150-450 [facility] Comment on above: Performed By: #### A 1C #### [facility] [address] [place] [address] Dr. Julisa Lowe RBC 4.75 106/ul Normal 4.20-5.40 [facility] Comment on above: Result Comment: HYPO CHROMIA 3+ Performed By: #### A 1C #### [facility] [address] [place] [address] Dr. Julisa Lowe WBC 13.8 103/ul Critically high 4.0-11.0 [facility] Comment on above: Performed By: #### A 1C #### [facility] [address] [place] [address] Dr. Julisa Lowe CRPon 12-15-2021 CRP [Mass/Vol] mg/L Normal <=1.0 [facility] Comment on above: Performed By: #### C MP, CRP, TSH #### [facility] [address] [place] [address] Dr. Julisa Lowe FREE T4on 12-15-2021 Free T4 [Mass/Vol] 1.04 ng/dL Normal 0.78-2.19 [facility] Comment on above: Performed By: #### S EDR #### [facility] [address] [place] [address] Dr. Julisa Lowe PROF 14(COMP METB)on 022 Albumin [Mass/Vol] 3.4 g/dL Normal 3.4-5.0 [facility] Comment on above: Performed By: #### C MP, CRP, TSH #### [facility] [address] [place] [address] Dr. Julisa Lowe Albumin/Globulin [Mass ratio] 1.1 {ratio} Normal [facility] Comment on above: Performed By: #### C MP, CRP, TSH #### [facility] [address] [place] [address] Dr. Julisa Lowe ALP [Catalytic activity/Vol] 120 U/L Critically high 46-116 [facility] Comment on above: Performed By: #### C MP, CRP, TSH #### [facility] [address] [place] [address] Dr. Julisa Lowe ALT [Catalytic activity/Vol] 28 U/L Normal 14-59 [facility] Comment on above: Performed By: #### C MP, CRP, TSH #### [facility] [address] [address] [address] Julias Lowe Anion gap [Moles/Vol] 12.7 mmol/L Normal [facility] Comment on above: Performed By: #### C MP, CRP, TSH #### [facility] [address] [address] [address] Julisa Lowe AST [Catalytic activity/Vol] 13 U/L Critically low 15-37 [facility] Comment on above: Performed By: #### C MP, CRP, TSH #### [facility] [address] [address] [address] Julisa Lowe Bilirubin [Mass/Vol] 0.3 mg/dL Normal 0.2-1.3 [facility] Comment on above: Performed By: #### C MP, CRP, TSH #### [facility] [address] [place] [address] Dr. Julisa Lowe Calcium [Mass/Vol] 8.4 mg/dL Critically low 8.5-10.1 [facility] Comment on above: Performed By: #### C MP, CRP, TSH #### [facility] [address] [place] [address] Dr. Julisa Lowe Chloride [Moles/Vol] 106 mmol/L Normal 98-107 [facility] Comment on above: Performed By: #### C MP, CRP, TSH #### [facility] [address] [address] [address] Julisa Lowe CO2 [Moles/Vol] 25.8 mmol/L Normal 22.0-30.0 [facility] Comment on above: Performed By: #### C MP, CRP, TSH #### [facility] [address] [place] [address] Dr. Julisa Lowe Creatinine [Mass/Vol] 0.68 mg/dL Normal 0.52-1.04 [facility] Comment on above: Performed By: #### C MP, CRP, TSH #### [facility] [address] [place] [address] Dr. Julisa Lowe EGFR-AF ERITREAN >60 Normal >=60 [facility] Comment on above: Performed By: #### C MP, CRP, TSH #### [facility] [address] [place] [address] Dr. Julisa Lowe EGFR-NON AF ERITREAN >60 Normal >=60 [facility] Comment on above: Performed By: #### C MP, CRP, TSH #### [facility] [address] [place] [address] Dr. Julisa Lowe Globulin (S) [Mass/Vol] 3.2 g/dL Normal [facility] Comment on above: Performed By: #### C MP, CRP, TSH #### [facility] [address] [place] [address] Dr. Julisa Lowe Glucose [Mass/Vol] 222 mg/dL Critically high 74-106 [facility] Comment on above: Performed By: #### C MP, CRP, TSH #### [facility] [address] [place] [address] Dr. Julisa Lowe Potassium [Moles/Vol] 3.5 mmol/L Normal 3.4-5.0 [facility] Comment on above: Performed By: #### C MP, CRP, TSH #### [facility] [address] [place] [address] Dr. Julisa Lowe Protein [Mass/Vol] 6.6 g/dL Normal 6.1-8.2 [facility] Comment on above: Performed By: #### C MP, CRP, TSH #### [facility] [address] [place] [address] Dr. Julisa Lowe Sodium [Moles/Vol] 141 mmol/L Normal 137-145 [facility] Comment on above: Performed By: #### C MP, CRP, TSH #### [facility] [address] [place] [address] Dr. Julisa Lowe Urea nitrogen [Mass/Vol] 14.0 mg/dL Normal 7.0-18.0 [facility] Comment on above: Performed By: #### C MP, CRP, TSH #### [facility] [address] [place] [address] Dr. Julisa Lowe Urea nitrogen/Creatinine [Mass ratio] 20.6 mg/mg Normal [facility] Comment on above: Performed By: #### C MP, CRP, TSH #### [facility] [address] [place] [address] Dr. Julisa Lowe SED RATE WESTERGRENon 2021 SED RATE 10 mm/hr Normal <=30 [facility] Comment on above: Performed By: #### S EDR #### [facility] [address] [place] [address] Dr. Julisa Lowe TSHon 12-15-2021 TSH 0.747 uIU/mL Normal 0.470-4.680 [facility] Comment on above: Performed By: #### C MP, CRP, TSH #### [facility] [address] [place] [address] Dr. Julisa Lowe TSH RANGE SEE BELOW Normal [facility] Comment on above: Result Comment: <0.3 4 UIU/ml HYPERTHYROID 0.34-5.60 UIU/ml EUTHYROID >5.60 UIU/ml HYPOTHYROID Performed By: #### C MP, CRP, TSH #### [facility] [address] [place] [address] Dr. Julisa Lowe ECHOCARDIO M/2D COMPLETEon 0 12-04-2021 ECHOCARDIO M/2D COMPLETE Patient: ROBINA RON Exam Date: 12/04/2021 : 1950 Gender:F Ordering : SHAIKH Chaparrita SPARKS . Admission #: [id number] Family : Order #: [id number] CLICK HERE TO VIEW EXAM ECHOCARDIOGRAM REPORT [...] Area(A4C): 21.50 cm2 Left Atrium Systolic Volume(A2C): 07653 mm3 Left Atrium Systolic Volume(A4C): 82813 mm3 Mitral Valve MV E to A [...] M.D. on 12/04/2021 at 18:31 Normal [facility] CBC AUTO DIFFon 09-10-2021 BASO # 0.1 103/ul Normal 0.0-0.1 [facility] Comment on above: Performed By: #### S EDR #### [facility] [address] [address] [address] Julisa Lowe Basophils/100 WBC (Bld) 0.4 % Normal 0.2-2.0 [facility] Comment on above: Performed By: #### S EDR #### [facility] [address] [address] [address] Julisa Lowe EO # 0.2 103/ul Normal 0.0-0.7 [facility] Comment on above: Performed By: #### S EDR #### [facility] [address] [address] [address] Julisa Lowe Eosinophils/100 WBC (Bld) 1.2 % Normal 0.9-7.0 [facility] Comment on above: Performed By: #### S EDR #### [facility] [address] [address] [address] Julisa Lowe Erythrocyte distribution width (RBC) [Ratio] 17.8 % Critically high 11.0-15.0 [facility] Comment on above: Performed By: #### S EDR #### [facility] [address] [address] [address] Julisa Lowe Hematocrit (Bld) [Volume fraction] 36.6 % Normal 36.0-48.0 [facility] Comment on above: Performed By: #### S EDR #### [facility] [address] [address] [address] Julisa Lowe Hemoglobin (Bld) [Mass/Vol] 10.1 g/dL Critically low 12.0-16.0 [facility] Comment on above: Performed By: #### S EDR #### [facility] [address] [address] [address] Julisa Lowe IG # 0.08 10e3/ul Critically high 0.00-0.03 [facility] Comment on above: Performed By: #### S EDR #### [facility] [address] [address] [address] Julisa Lowe IG % 0.6 % Critically high 0.0-0.5 [facility] Comment on above: Performed By: #### S EDR #### [facility] [address] [place] [address] Dr. Julisa Lowe LYMPH # 3.1 103/ul Normal 1.2-3.8 [facility] Comment on above: Performed By: #### S EDR #### [facility] [address] [place] [address] Dr. Julisa Lowe Lymphocytes/100 WBC (Bld) 23.2 % Normal 20.5-60.0 [facility] Comment on above: Performed By: #### S EDR #### [facility] [address] [place] [address] Dr. Julisa Lowe MANUAL DIFF REQ NO Normal [facility] Comment on above: Performed By: #### S EDR #### [facility] [address] [place] [address] Dr. Julisa Lowe MCH (RBC) [Entitic mass] 20.9 pg Critically low 26.7-34.0 [facility] Comment on above: Performed By: #### S EDR #### [facility] [address] [place] [address] Dr. Julisa Lowe MCHC (RBC) [Mass/Vol] 27.6 g/dL Critically low 29.9-35.2 [facility] Comment on above: Performed By: #### S EDR #### [facility] [address] [address] [address] Julisa Lowe MCV (RBC) [Entitic vol] 75.8 fL Critically low 81.0-99.0 [facility] Comment on above: Performed By: #### S EDR #### [facility] [address] [place] [address] Dr. Julisa Lowe MONO # 0.7 103/ul Normal 0.3-0.8 [facility] Comment on above: Performed By: #### S EDR #### [facility] [address] [place] [address] Dr. Julisa Lowe Monocytes/100 WBC (Bld) 5.1 % Normal 1.7-12.0 [facility] Comment on above: Performed By: #### S EDR #### [facility] [address] [place] [address] Dr. Julisa Lowe NEUT # 9.3 103/ul Critically high 1.4-6.5 [facility] Comment on above: Performed By: #### S EDR #### [facility] [address] [place] [address] Dr. Julisa Lowe Neutrophils/100 WBC (Bld) 69.5 % Normal 43.0-75.0 [facility] Comment on above: Performed By: #### S EDR #### [facility] [address] [place] [address] Dr. Julisa Lowe Platelet mean volume (Bld) [Entitic vol] 8.2 fL Critically low 9.5-13.5 [facility] Comment on above: Performed By: #### S EDR #### [facility] [address] [place] [address] Dr. Julisa Lowe PLT 303 103/ul Normal 150-450 [facility] Comment on above: Performed By: #### S EDR #### [facility] [address] [place] [address] Dr. Julisa Lowe RBC 4.83 106/ul Normal 4.20-5.40 [facility] Comment on above: Performed By: #### S EDR #### [facility] [address] [address] [address] Julisa Lowe WBC 13.4 103/ul Critically high 4.0-11.0 [facility] Comment on above: Performed By: #### S EDR #### [facility] [address] [address] [address] Julisa Lowe GLYCOHEMOGLOBIN A1Con 2020 ADA RECOMMENDATION ADA THERAPEUTIC TARGET 6.0 - 7.0 ACTION SUGGESTED > 7.0 Normal [facility] Comment on above: Performed By: #### A 1C #### [facility] [address] [address] [address] Julisa Lowe Glucose [Mass/Vol] 151 mg/dL Normal [facility] Comment on above: Performed By: #### A 1C #### [facility] [address] [address] [address] Julisa Lowe HbA1c (Bld) [Mass fraction] 6.9 % Critically high <=6.0 [facility] Comment on above: Performed By: #### A 1C #### [facility] [address] [place] [address] Dr. Julisa Lowe LIPID PROFILEon 09-10-2021 CHOL-HDL RATIO NORM SEE BELOW Normal [facility] Comment on above: Result Comment: 3.3 - 4.4 LOW RISK 4.4 - 7.1 AVERAGE RISK 7.1 - 11.0 MODERATE RISK >11.0 HIGH RISK Performed By: #### A 1C #### [facility] [address] [address] [address] Julisa Lowe Cholesterol [Mass/Vol] 121 mg/dL Normal <=200 [facility] Comment on above: Performed By: #### A 1C #### [facility] [address] [address] [address] Julisa Lowe Cholesterol in HDL [Mass/Vol] 55 mg/dL Normal [facility] Comment on above: Performed By: #### A 1C #### [facility] [address] [address] [address] Julisa Lowe Cholesterol in LDL [Mass/Vol] 46.8 mg/dL Normal [facility] Comment on above: Performed By: #### A 1C #### [facility] [address] [address] [address] Julisa Lowe Cholesterol.total/Chol esterol in HDL [Mass ratio] 2.2 {ratio} Normal [facility] Comment on above: Performed By: #### A 1C #### [facility] [address] [address] [address] Julisa Lowe HDL NORMAL > or = 60 mg/dl - LO W CARDIOVASCULAR RISK <40 mg/dl - HIGH CARDIOVASCULAR RISK Normal [facility] Comment on above: Performed By: #### A 1C #### [facility] [address] [address] [address] Julisa Lowe LDL CALC NORMAL SEE BELOW Normal [facility] Comment on above: Result Comment: <100 mg/dl OPTIMAL 100 - 129 mg/dl NEAR OR ABOVE OPTIMAL 130 - 159 mg/dl BORDERLINE HIGH 160 - 189 mg/dl HIGH >190 mg/dl VERY HIGH Performed By: #### A 1C #### [facility] [address] [address] [address] Julisa Lowe Triglyceride [Mass/Vol] 96 mg/dL Normal <=150 [facility] Comment on above: Performed By: #### A 1C #### [facility] [address] [address] [address] Julisa Lowe VLDL CALC 19.2 mg/dL Normal [facility] Comment on above: Performed By: #### A 1C #### [facility] [address] [address] [address] Julisa Lowe MICROALBUMIN, RAND URon 08-14 mALB 33.4 mg/L Critically high <=30.0 [facility] Comment on above: Performed By: #### S EDR #### [facility] [address] [place] [address] Dr. Julisa Lowe PROF 14(COMP METB)on 021 Albumin [Mass/Vol] 3.4 g/dL Critically low 3.5-5.0 [facility] Comment on above: Performed By: #### A 1C #### [facility] [address] [place] [address] Dr. Julisa Lowe Albumin/Globulin [Mass ratio] 1.3 {ratio} Normal [facility] Comment on above: Performed By: #### A 1C #### [facility] [address] [place] [address] Dr. Julisa Lowe ALP [Catalytic activity/Vol] 74 U/L Normal 38-126 [facility] Comment on above: Performed By: #### A 1C #### [facility] [address] [place] [address] Dr. Julisa Lowe ALT [Catalytic activity/Vol] 11 U/L Normal 9-52 [facility] Comment on above: Performed By: #### A 1C #### [facility] [address] [place] [address] Dr. Julisa Lowe Anion gap [Moles/Vol] 18.2 mmol/L Normal [facility] Comment on above: Performed By: #### A 1C #### [facility] [address] [place] [address] Dr. Julisa Lowe AST [Catalytic activity/Vol] 12 U/L Critically low 14-36 [facility] Comment on above: Performed By: #### A 1C #### [facility] [address] [place] [address] Dr. Julisa Lowe Bilirubin [Mass/Vol] 0.3 mg/dL Normal 0.2-1.3 [facility] Comment on above: Performed By: #### A 1C #### [facility] [address] [place] [address] Dr. Julisa Lowe Calcium [Mass/Vol] 9.3 mg/dL Normal 8.4-10.2 [facility] Comment on above: Performed By: #### A 1C #### [facility] [address] [place] [address] Dr. Julisa Lowe Chloride [Moles/Vol] 105 mmol/L Normal 98-107 [facility] Comment on above: Performed By: #### A 1C #### [facility] [address] [place] [address] Dr. Julisa Lowe Creatinine [Mass/Vol] 0.62 mg/dL Normal 0.52-1.04 [facility] Comment on above: Performed By: #### A 1C #### [facility] [address] [address] [address] Julisa Lowe EGFR-AF ERITREAN >60 Normal >=60 [facility] Comment on above: Performed By: #### A 1C #### [facility] [address] [address] [address] Julisa Lowe EGFR-NON AF ERITREAN >60 Normal >=60 [facility] Comment on above: Performed By: #### A 1C #### [facility] [address] [address] [address] Julisa Lowe Globulin (S) [Mass/Vol] 2.7 g/dL Normal [facility] Comment on above: Performed By: #### A 1C #### [facility] [address] [address] [address] Julisa Lowe Glucose [Mass/Vol] 134 mg/dL Critically high 74-106 [facility] Comment on above: Performed By: #### A 1C #### [facility] [address] [address] [address] Julisa Lowe Potassium [Moles/Vol] 4.3 mmol/L Normal 3.4-5.0 [facility] Comment on above: Performed By: #### A 1C #### [facility] [address] [address] [address] Julisa Lowe Protein [Mass/Vol] 6.1 g/dL Normal 6.1-8.2 [facility] Comment on above: Performed By: #### A 1C #### [facility] [address] [address] [address] Julisa Lowe Sodium [Moles/Vol] 142 mmol/L Normal 137-145 [facility] Comment on above: Performed By: #### A 1C #### [facility] [address] [address] [address] Julisa Lowe Urea nitrogen [Mass/Vol] 23.0 mg/dL Critically high 7.0-17.0 [facility] Comment on above: Performed By: #### A 1C #### [facility] [address] [place], [place] [address] Dr. Julisa Lowe Urea nitrogen/Creatinine [Mass ratio] 37.1 mg/mg Normal [facility] Comment on above: Performed By: #### A 1C #### [facility] [address] [place], [place] [address] Dr. Julisa Lowe Covid-19 PCR ([facility])on 07-16 SARS-CoV-2 (COVID-19) RNA CHALINO+probe Ql (Unsp spec) Not detected Normal NOT DETECTED [facility] Comment on above: Result Comment: This test is not yet approved or cleared by the [place] FDA. When there are no FDA-approved or cleared tests available, and other criteria are met, FDA can make tests available under an emergency access mechanism called an Emergency Use Authorization (EUA). The EUA for this test is supported by the [place] of Health and Human Service's (HHS's) declaration [...] SARS-CoV-2. Performed By: #### C VDTB #### [facility] [id number] Julisa Lowe Vital Signs Date Time Vital Sign Value Performing Clinician Facility 08-15-2024 09:45-0500 Body height 154.9 cm Christopher Garrett MD Work Phone: [facility] 08-15-2024 09:45-0500 Body mass index (BMI) [Ratio] 24.75 kg/m2 Christopher Garrett MD Work Phone: [facility] 08-15-2024 09:45-0500 Body weight 59.42 kg Christopher Garrett MD Work Phone: [facility] 08-15-2024 09:45-0500 Diastolic blood pressure 56 mm[Hg] Christopher Garrett MD Work Phone: [facility] 08-15-2024 09:45-0500 Heart rate 87 /min Christopher Garrett MD Work Phone: [facility] 08-15-2024 09:45-0500 Respiratory rate 18 /min Christopher Garrett MD Work Phone: [facility] 08-15-2024 09:45-0500 Systolic blood pressure 96 mm[Hg] Christopher Garrett MD Work Phone: [facility] 08-01-2024 09:58-0500 Body height 154.9 cm Tj Ramirez SALES APPRENTICE Work Phone: [facility] 08-01-2024 09:58-0500 Body mass index (BMI) [Ratio] 24.83 kg/m2 Tj Ramirez SALES APPRENTICE Work Phone: [facility] 08-01-2024 09:58-0500 Body temperature 96.69 [degF] Tj Ramirez SALES APPRENTICE Work Phone: [facility] 08-01-2024 09:58-0500 Body weight 59.6 kg Tj Ramirez SALES APPRENTICE Work Phone: [facility] 08-01-2024 09:58-0500 Diastolic blood pressure 80 mm[Hg] Tj Ramirez SALES APPRENTICE Work Phone: [facility] 08-01-2024 09:58-0500 Heart rate 85 /min Tj Ramirez SALES APPRENTICE Work Phone: [facility] 08-01-2024 09:58-0500 Respiratory rate 18 /min Tj Ramirez SALES APPRENTICE Work Phone: [facility] 08-01-2024 09:58-0500 Systolic blood pressure 132 mm[Hg] Tj Ramirez SALES APPRENTICE Work Phone: [facility] 05-09-2024 09:03-0400 Diastolic blood pressure 72 mm[Hg] Shante Orzech [facility] 05-09-2024 09:03-0400 Heart rate 90 /min Shante Orzech [facility] 05-09-2024 09:03-0400 Systolic blood pressure 109 mm[Hg] Shante Orzech [facility] 05-03-2024 10:20-0400 Body height 154.9 cm Tj Ramirez SALES APPRENTICE Work Phone: [facility] 05-03-2024 10:20-0400 Body mass index (BMI) [Ratio] 26.64 kg/m2 Tj Ramirez SALES APPRENTICE Work Phone: [facility] 05-03-2024 10:20-0400 Body temperature 97 [degF] Tj Ramirez SALES APPRENTICE Work Phone: [facility] 05-03-2024 10:20-0400 Body weight 63.96 kg Tj Ramirez SALES APPRENTICE Work Phone: [facility] 05-03-2024 10:20-0400 Diastolic blood pressure 68 mm[Hg] Tj Ramirez SALES APPRENTICE Work Phone: [facility] 05-03-2024 10:20-0400 Heart rate 82 /min Tj Ramirez SALES APPRENTICE Work Phone: [facility] Comment on above: 100% O2 05-03-2024 10:20-0400 Systolic blood pressure 110 mm[Hg] Tj Ramirez SALES APPRENTICE Work Phone: [facility] 02-29-2024 10:35-0400 Blood Pressure Location Shante Orzech [facility] 02-29-2024 10:35-0400 Diastolic blood pressure 78 mm[Hg] Shante Orzech [facility] 02-29-2024 10:35-0400 Heart rate 68 /min Shante Orzech [facility] 02-29-2024 10:35-0400 Respiratory rate 16 /min Shante Orzech [facility] 02-29-2024 10:35-0400 Systolic blood pressure 132 mm[Hg] Shante Orzech [facility] 05-12-2022 15:00-0400 Diastolic blood pressure 49 mm[Hg] Chair [place] Work Phone: [facility] 05-12-2022 15:00-0400 Heart rate 98 /min Chair [place] Work Phone: [facility] 05-12-2022 15:00-0400 SaO2% (BldA) [Mass fraction] 95 % Chair [place] Work Phone: [facility] 05-12-2022 15:00-0400 Systolic blood pressure 137 mm[Hg] Chair [place] Work Phone: [facility] 05-12-2022 13:30-0400 Body temperature 98.6 [degF] Chair [place] Work Phone: [facility] 05-12-2022 10:15-0400 Diastolic blood pressure 87 mm[Hg] MD Hood Patel Work Phone: [facility] 05-12-2022 10:15-0400 Heart rate 82 /min MD Hood Patel Work Phone: [facility] 05-12-2022 10:15-0400 Respiratory rate 16 /min MD Hood Patel Work Phone: [facility] 05-12-2022 10:15-0400 SaO2% (BldA) [Mass fraction] 100 % MD Hood Patel Work Phone: [facility] 05-12-2022 10:15-0400 Systolic blood pressure 149 mm[Hg] MD Hood Patel Work Phone: [facility] 05-12-2022 07:54-0400 Body height 154.94 cm MD Hood Patel Work Phone: [facility] 05-12-2022 07:54-0400 Body weight 53.52 kg MD Hood Patel Work Phone: [facility] 05-06-2022 14:29-0400 Body temperature 99 [degF] Chair [place] Work Phone: [facility] 05-06-2022 14:29-0400 Diastolic blood pressure 51 mm[Hg] Chair [place] Work Phone: [facility] 05-06-2022 14:29-0400 Heart rate 93 /min Chair [place] Work Phone: [facility] 05-06-2022 14:29-0400 Respiratory rate 16 /min Chair [place] Work Phone: [facility] 05-06-2022 14:29-0400 SaO2% (BldA) [Mass fraction] 98 % Chair [place] Work Phone: [facility] 05-06-2022 14:29-0400 Systolic blood pressure 129 mm[Hg] Chair [place] Work Phone: [facility] 04-28-2022 10:47-0400 Body temperature 98.91 [degF] Chair [place] Work Phone: [facility] 04-28-2022 10:47-0400 Diastolic blood pressure 64 mm[Hg] Chair [place] Work Phone: [facility] 04-28-2022 10:47-0400 Heart rate 88 /min Chair [place] Work Phone: [facility] 04-28-2022 10:47-0400 Respiratory rate 18 /min Chair [place] Work Phone: [facility] 04-28-2022 10:47-0400 SaO2% (BldA) [Mass fraction] 98 % Chair [place] Work Phone: [facility] 04-28-2022 10:47-0400 Systolic blood pressure 122 mm[Hg] Chair [place] Work Phone: [facility] 04-22-2022 14:02-0400 Body temperature 99 [degF] Chair [place] Work Phone: [facility] 04-22-2022 14:02-0400 Diastolic blood pressure 56 mm[Hg] Chair [place] Work Phone: [facility] 04-22-2022 14:02-0400 Heart rate 95 /min Chair [place] Work Phone: [facility] 04-22-2022 14:02-0400 Respiratory rate 18 /min Chair [place] Work Phone: [facility] 04-22-2022 14:02-0400 SaO2% (BldA) [Mass fraction] 96 % Chair [place] Work Phone: [facility] 04-22-2022 14:02-0400 Systolic blood pressure 123 mm[Hg] Chair [place] Work Phone: [facility] 10-14-2021 14:15-0500 Body height 154.94 cm Lawanda Alvarez Other [employer] Other 10-14-2021 14:15-0500 Body mass index (BMI) [Ratio] 22.26 kg/m2 Lawanda Alvarez Other [employer] Other 10-14-2021 14:15-0500 Body weight 53.43 kg Lawanda Alvarez Other [place] [employer] Other Encounters Encounter Date Encounter Type Care Provider Facility Start: 08-15-2024 End: 08-15-2024 Ashli Garrett MD Work Phone: [facility] Start: 08-15-2024 End: 08-15-2024 Ashli Garrett MD Work Phone: [facility] Start: 08-15-2024 End: 08-15-2024 Office outpatient new 45 minutes Christopher Garrett MD Work Phone: [facility] Comment on above: Type 2 diabetes rosemary itus with diabetic autonomic (poly)neuropathy (CMS/HCC) (Primary Dx); Mixed hyperlipidemia (CMS/HCC); Primary hypertension (CMS/HCC); Encounter for dietary consultation; Vitamin D deficiency; Hypoglycemia; Class 1 obesity due to excess calories with serious comorbidity and body mass index (BMI) of 31.0 to 31.9 in adult Start: 08-15-2024 End: 08-15-2024 ambulatory CHRISTOPHER GARRETT Not Available Start: 08-04-2024 End: 08-04-2024 [facility] Start: 08-01-2024 End: 08-01-2024 Bamboo flowsheet Tj Ramirez SALES APPRENTICE Work Phone: [facility] Start: 08-01-2024 End: 08-01-2024 Bamboo flowsheet Tj Diazk SALES APPRENTICE Work Phone: [facility] Start: 08-01-2024 End: 08-01-2024 Office outpatient visit 15 minutes Tj Ramirez SALES APPRENTICE Work Phone: [facility] Comment on above: Type 2 diabetes rosemary itus with stage 3a chronic kidney disease, with long-term current use of insulin (HCC) (CMS/HCC) (Primary Dx); Type 2 diabetes mellitus with diabetic autonomic (poly)neuropathy (CMS/HCC); Chronic obstructive pulmonary disease, unspecified COPD type (CMS/HCC); Need for immunization against influenza; Primary hypertension ([facility]/HCC) Start: 08-01-2024 End: 08-01-2024 ambulatory TJ RODRIGEZTRICK Not Available Start: 07-27-2024 End: 07-27-2024 Orders Only Tj Ramirez SALES APPRENTICE Work Phone: [facility] Comment on above: Type 2 diabetes rosemary itus with stage 3a chronic kidney disease, with long-term current use of insulin (HCC) ([facility]) (Primary Dx) Start: 07-17-2024 End: 07-17-2024 Telephone encounter Alondra James SALES APPRENTICE Work Phone: [facility] Start: 07-13-2024 End: 07-13-2024 ambulatory Shante X Orzech Facility:[facility] Start: 07-13-2024 End: 07-13-2024 Patient encounter procedure Shante X Orzech [facility] Start: 05-23-2024 End: 06-05-2024 Clinisync Result Encounter Generic External Data Provider [facility] Unsolicited Start: 05-23-2024 End: 06-05-2024 Clinisync Result Encounter Generic External Data Provider [facility] External [facility] Unsolicited Start: 05-17-2024 End: 05-18-2024 Clinisync Result Encounter Generic External Data Provider [facility] External [facility] Unsolicited Start: 05-17-2024 End: 05-18-2024 Clinisync Result Encounter Generic External Data Provider [facility] External [facility] Unsolicited Start: 05-09-2024 End: 05-09-2024 Lab Drop off Shante X Orzech [facility] Start: 05-09-2024 End: 05-09-2024 ambulatory Shante X Orzech Facility:[facility] Start: 05-09-2024 End: 05-09-2024 Patient encounter procedure Shante Shukla [facility] Start: 05-08-2024 End: 05-08-2024 Clinisync Result Encounter Tjtru Rodrigeztrick SALES APPRENTICE Work Phone: [facility] Unsolicited Start: 05-08-2024 End: 05-08-2024 Clinisync Result Encounter Tj Ramirez SALES APPRENTICE Work Phone: [facility] Unsolicited Start: 05-08-2024 End: 05-09-2024 ambulatory [facility] Start: 05-03-2024 End: 05-03-2024 Bamboo flowsheet Tj Ramirez SALES APPRENTICE Work Phone: [facility] Start: 05-03-2024 End: 05-03-2024 Bamboo flowsheet Tj Ramirez SALES APPRENTICE Work Phone: [facility] Start: 05-03-2024 End: 05-03-2024 Office outpatient visit 25 minutes Tj Rodrigeztrick SALES APPRENTICE Work Phone: [facility] Comment on above: Primary hypertension (CMS/HCC) (Primary Dx); PAF (paroxysmal atrial fibrillation) (CMS/HCC); Stage 3a chronic kidney disease (HCC) (CMS/HCC); Type 2 diabetes mellitus with stage 3a chronic kidney disease, with long-term current use of insulin (HCC) (CMS/HCC); Mixed hyperlipidemia (CMS/HCC); Chronic obstructive pulmonary disease, unspecified COPD type (CMS/HCC); Gastroesophageal reflux disease without esophagitis; Type 2 diabetes mellitus without complications (CMS/HCC) Start: 05-03-2024 End: 05-03-2024 ambulatory TJ RAMIREZ Not Available Start: 03-14-2024 End: 03-14-2024 ambulatory [facility] Start: 02-29-2024 End: 02-29-2024 ambulatory Shante X Orzech Facility:[facility] Start: 02-29-2024 End: 02-29-2024 Lab Drop off Shante X Orzech [facility] Start: 02-29-2024 End: 02-29-2024 ambulatory Shante X Orzech Facility:[facility] Start: 02-29-2024 End: 02-29-2024 Patient encounter procedure Shante X Orzech [facility] Start: 01-04-2024 End: 01-04-2024 ambulatory SHAIKH SHRUTHIJESI Not Available Start: 08-17-2023 End: 08-17-2023 ambulatory SHAIKH SHRUTHIKIKOD Not Available Start: 08-17-2023 Patient encounter procedure Tj Ramirez NP Work Phone: [facility] Start: 06-22-2022 End: 06-23-2022 ambulatory SHAIKH Ivette BLUMSaud Facility: Start: 05-12-2022 End: 05-12-2022 ambulatory Chair 15 [place] Work Phone: Hematology/Oncology Comment on above: Iron deficiency anem ia due to chronic blood loss (Primary Dx) Start: 05-07-2022 End: 05-07-2022 Patient encounter procedure MD Hood Patel Work Phone: [facility] Start: 05-06-2022 End: 05-06-2022 ambulatory Chair 14 [place] Work Phone: Hematology/Oncology Comment on above: Iron deficiency anem ia due to chronic blood loss (Primary Dx) Start: 04-28-2022 End: 04-28-2022 ambulatory Chair 14 [place] Work Phone: Hematology/Oncology Comment on above: Iron deficiency anem ia due to chronic blood loss (Primary Dx) Start: 04-22-2022 End: 04-22-2022 ambulatory Chair 13 [place] Work Phone: Hematology/Oncology Comment on above: Iron deficiency anem ia due to chronic blood loss (Primary Dx) Start: 04-15-2022 End: 04-15-2022 ambulatory Hood Patel Other [employer] Other Start: 04-15-2022 Telephone encounter Hood Obrien ck [facility] Start: 04-14-2022 Telephone encounter Christy jefferson RN Work Phone: Hematology/Oncology Comment on above: Critical Results (Gl ucose) Start: 04-14-2022 End: 04-14-2022 ambulatory Chair 15 [place] Work Phone: Hematology/Oncology Comment on above: Iron deficiency anem ia due to chronic blood loss (Primary Dx); Controlled type 2 diabetes mellitus without complication, 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) Start: 04-08-2022 End: 04-09-2022 ambulatory SHAIKH Ivette SPARKS Facility:[facility] Start: 04-06-2022 Telephone encounter Christi lópez MD Work Phone: [facility] Comment on above: Appointment Confirma tion Start: 02-06-2022 End: 02-07-2022 ambulatory EDD WADE Facility:[facility] Start: 01-23-2022 End: 01-24-2022 ambulatory SHAIKH Ivette SPARKS Facility:[facility] Start: 12-22-2021 End: 12-23-[address] Bradyen Keller Facility:[facility] Start: 12-20-2021 End: 12-21-[address] ESTUARDO SANCHEZ Facility:[facility] Start: 12-15-2021 End: 12-16-2021 ambulatory EDD WADE Facility:[facility] Start: 12-04-2021 End: 12-05-2021 ambulatory SHAIKH Ivette SPARKS Facility:[facility] Start: 11-28-2021 End: 11-29-2021 ambulatory SHAIKH Ivette SPARKS Facility:[facility] Start: 10-22-2021 ambulatory SHAIKH Ivette SPARKS Facilit y:[facility] Start: 10-14-2021 End: 10-14-2021 ambulatory Lawanda Alvarez Other [employer] Other Start: 10-14-2021 Office outpatient ne w 30 minutes Lawanda Medinameaghan [facility] [place] [facility] Start: 09-10-2021 End: 09-11-2021 ambulatory SHAIKH Ivette SPARKS Facility:[facility] Start: 08-16-2021 Encounter for preprocedural laboratory examination DR LJ BRENNAN [facility] Start: 08-13-2021 End: 08-13-[address] LJ BRENNAN Facility:[facility] Start: 08-12-2021 End: 08-13-2021 ambulatory SHAIKH Ivette SPARKS Facility:[facility] Start: 08-12-2021 End: 08-13-2021 Encounter for preprocedural laboratory examination SHAIKH Ivette SPARKS Facility: Procedures Date Procedure Procedure Detail Performing Clinician Start: 08-15-2024 Gluc bld gluc mntr d ev cleared fda spec home use Christopher Garrett MD Work Phone: Start: 08-01-2024 Hemoglobin glycosylated a1c Tj Ramirez SALES APPRENTICE Work Phone: Start: 05-23-2024 FACTOR V LEIDEN M[employer]ATION Generic External Data Provider Start: 05-17-2024 PROTEIN C-FUNCTIONAL Ge neric External Data Provider Start: 05-17-2024 PROTEIN S-ANTIGEN Gener ic External Data Provider Start: 05-17-2024 PROTEIN S-FUNCTIONAL Ge neric External Data Provider Start: 05-08-2024 ALL CBC WITH AUTO DIFF Tj Ramirez SALES APPRENTICE Work Phone: Start: 03-08-2024 Mammography Tj sainz SALES APPRENTICE Work Phone: Start: 04-14-2022 Gluc bld gluc mntr d ev cleared fda spec home use [facility] Provider Start: 09-13-2020 End: 09-13-2020 Colonoscopy Shante Shukla Start: 04-22-2017 Cystourethroscopy wi th dilation of urethral stricture Shante Orzech Comment on above: 01/09/2019 Back structure, excl uding neck (body structure) Shante Orzech Cataract (disorder) Shante O rzech Cholecystectomy Shante Orzec h Hysterectomy Shante Orzech Tonsillectomy Shante Orzech Plan of Treatment Date Care Activity Detail Author Start: 09-13-2030 Screening for malignant neoplasm of colon [facility] Start: 05-08-2025 Urine screening for protein Diabetes: Urine Protein Screening [facility] Start: 04-14-2025 DIABETES SCREEN DIABETES SCREEN [facility] Start: 03-08-2025 Screening for malignant neoplasm of breast Mammogram [facility] Start: 02-13-2025 Hemoglobin A1c measurement Diabetes: Hemoglobin A1C [facility] Start: 01-29-2025 Hemoglobin A1c measurement Diabetes: Hemoglobin A1C [facility] Start: 11-02-2024 End: 11-02-2024 Patient encounter procedure 11/02/2024 9:00 AM EST Office Visit [facility] [address] [place] [id number] Tj Ramirez NP [address] [place] [address] [facility] Start: 10-18-2024 End: 10-18-2024 Patient encounter procedure 10/18/2024 10:30 AM EST Office Visit [facility] [address] [place] [id number] Christopher Garrett MD [address] [place] [address] [facility] Start: 09-13-2024 Glaucoma screening Diabetes: Retinopathy Screening [facility] Start: 08-17-2024 Medicare Annual Wellness (AWV) Medicare Annual Wellness (AWV) [facility] Start: 08-15-2024 End: 08-15-2025 25-hydroxyvitamin D3 [Mass/volume] in Serum or Plasma Vitamin D 25 hydroxy Total Lab Routine Type 2 diabetes mellitus with diabetic autonomic (poly)neuropathy (CMS/HCC) Expected: 08/15/2024 (Approximate), Expires: 08/15/2025 [facility] Comment on above: Expected: 08/15/2024 (Approximate), Expi res: 08/15/2025 Start: 08-15-2024 End: 08-15-2025 C-peptide C-peptide Lab Routine Type 2 diabetes mellitus with diabetic autonomic (poly)neuropathy (CMS/HCC) Expected: 08/15/2024 (Approximate), Expires: 08/15/2025 [facility] Work Phone: Comment on above: Expected: 08/15/2024 (Approximate), Expi res: 08/15/2025 Start: 08-15-2024 End: 08-15-2025 Lipid 1996 panel - Serum or Plasma Lipid panel Lab Routine Type 2 diabetes mellitus with diabetic autonomic (poly)neuropathy (CMS/HCC) Expected: 08/15/2024 (Approximate), Expires: 08/15/2025 [facility] Comment on above: Expected: 08/15/2024 (Approximate), Expi res: 08/15/2025 Start: 08-15-2024 End: 08-15-2025 Microalbumin/Creatinine panel in random Urine Microalbumin / creatinine urine ratio Lab Routine Type 2 diabetes mellitus with diabetic autonomic (poly)neuropathy (CMS/HCC) Expected: 08/15/2024 (Approximate), Expires: 08/15/2025 [facility] Comment on above: Expected: 08/15/2024 (Approximate), Expi res: 08/15/2025 Start: 08-15-2024 End: 08-15-2025 Renal function panel Renal function panel Lab Routine Type 2 diabetes mellitus with diabetic autonomic (poly)neuropathy (CMS/HCC) Expected: 08/15/2024 (Approximate), Expires: 08/15/2025 [facility] Comment on above: Expected: 08/15/2024 (Approximate), Expi res: 08/15/2025 Start: 08-15-2024 End: 08-15-2024 Patient encounter procedure [facility] Comment on above: Type 2 diabetes mellitus with hyperglyce loree, with long-term current use of insulin ([facility]); Type 2 diabetes mellitus with diabetic autonomic (poly)neuropathy ([facility]) Start: 08-12-2024 Urine screening for protein Diabetes: Urine Protein Screening [facility] Start: 08-01-2024 End: 08-01-2024 Patient encounter procedure [facility] Comment on above: Arrived Start: 07-27-2024 End: 07-27-2025 Hemoglobin A1c/Hemoglobin.total in Blood Hemoglobin A1c Lab Routine Type 2 diabetes mellitus with stage 3a chronic kidney disease, with long-term current use of insulin ([facility]) ([facility]) Expected: 07/27/2024 (Approximate), Expires: 07/27/2025 [facility] Work Phone: Comment on above: Expected: 07/27/2024 (Approximate), Expi res: 07/27/2025 Start: 07-20-2024 End: 07-20-2024 Patient encounter procedure 07/20/2024 10:20 AM EST Office Visit [facility] [address] [place] [phone] Ammon Khanna DPM [address] [address] [facility] Start: 06-15-2024 Hemoglobin A1c measurement Diabetes: Hemoglobin A1C [facility] Start: 06-01-2024 End: 06-01-2024 Patient encounter procedure 06/01/2024 9:20 AM EDT Office Visit [facility] [address] [place] [phone] Ammon Khanna DPM [address] [address] [facility] Start: 05-14-2024 Influenza vaccination Influenza Vaccine (#1) [facility] Start: 05-03-2024 End: 05-03-2025 CBC W Auto Differential panel - Blood CBC and differential Lab Routine Primary hypertension ([facility]/HCC) PAF (paroxysmal atrial fibrillation) ([facility]/HCC) Type 2 diabetes mellitus with stage 3a chronic kidney disease, with long-term current use of insulin (HCC) ([facility]/HCC) Expected: 05/03/2024 (Approximate), Expires: 05/03/2025 [facility] Comment on above: Expected: 05/03/2024 (Approximate), Expi res: 05/03/2025 Start: 05-03-2024 End: 05-03-2025 Comprehensive metabolic 2000 panel - Serum or Plasma Comprehensive metabolic panel Lab Routine Primary hypertension ([facility]/HCC) PAF (paroxysmal atrial fibrillation) ([facility]/HCC) Stage 3a chronic kidney disease (HCC) ([facility]/HCC) Type 2 diabetes mellitus with stage 3a chronic kidney disease, with long-term current use of insulin (HCC) ([facility]/HCC) Expected: 05/03/2024 (Approximate), Expires: 05/03/2025 [facility] Comment on above: Expected: 05/03/2024 (Approximate), Expi res: 05/03/2025 Start: 05-03-2024 End: 05-03-2025 Hemoglobin A1c/Hemoglobin.total in Blood Hemoglobin A1c Lab Routine Type 2 diabetes mellitus with stage 3a chronic kidney disease, with long-term current use of insulin (HCC) ([facility]/HCC) Expected: 05/03/2024 (Approximate), Expires: 05/03/2025 [facility] Comment on above: Expected: 05/03/2024 (Approximate), Expi res: 05/03/2025 Start: 05-03-2024 End: 05-03-2025 Lipid 1996 panel - Serum or Plasma Lipid panel Lab Routine Mixed hyperlipidemia ([facility]/HCC) Expected: 05/03/2024 (Approximate), Expires: 05/03/2025 [facility] Comment on above: Expected: 05/03/2024 (Approximate), Expi res: 05/03/2025 Start: 05-03-2024 End: 05-03-2025 Microalbumin/Creatinine panel in random Urine Microalbumin / creatinine urine ratio Lab Routine Primary hypertension ([facility]/HCC) Stage 3a chronic kidney disease (HCC) ([facility]/HCC) Type 2 diabetes mellitus with stage 3a chronic kidney disease, with long-term current use of insulin (HCC) ([facility]/HCC) Expected: 05/03/2024 (Approximate), Expires: 05/03/2025 [facility] Work Phone: Comment on above: Expected: 05/03/2024 (Approximate), Expi res: 05/03/2025 Start: 05-03-2024 End: 05-03-2024 Patient encounter procedure 05/03/2024 10:30 AM EDT Office Visit [facility] [address] [place] [address] Tj Ramirez NP [address] [place] [address] Primary hypertension (CMS/HCC) (Primary Dx); PAF (paroxysmal atrial fibrillation) (CMS/HCC); Stage 3a chronic kidney disease (HCC) (CMS/HCC); Type 2 diabetes mellitus with stage 3a chronic kidney disease, with long-term current use of insulin (HCC) (CMS/HCC); Mixed hyperlipidemia (CMS/HCC) [facility] Comment on above: Primary hypertension (CMS/HCC) (Primary Dx); PAF (paroxysmal atrial fibrillation) (CMS/HCC); Stage 3a chronic kidney disease (HCC) (CMS/HCC); Type 2 diabetes mellitus with stage 3a chronic kidney disease, with long-term current use of insulin (HCC) (CMS/HCC); Mixed hyperlipidemia (CMS/HCC) Start: 05-14-2022 Influenza vaccination INFLUENZA (#1) [facility] Start: 05-12-2022 [facility] Work Phone: Start: 05-12-2022 Esophagogastroduodenoscopy DH EGD (Not Applicable) [facility] Start: 05-12-2022 End: 05-12-2022 Admission to same day surgery center Iron deficiency anemia [facility] Start: 09-13-2021 ADVANCE DIRECTIVE DISCUSSION ADVANCE DIRECTIVE DISCUSSION [facility] Start: 09-20-2019 Pneumococcal Vaccine: 65+ Years (2 of 2 - PPSV23 or PCV20) Pneumococcal Vaccine: 65+ Years (2 of 2 - PPSV23 or PCV20) [facility] Start: 11-14-2015 BONE DENSITY BONE DENSITY [facility] [facility] Start: 11-14-1995 COLOGUARD (FIT-DNA) COLOGUARD (FIT-DNA) [facility] Start: 11-14-1995 Colonoscopy COLONOSCOPY [facility] Start: 11-14-1995 COLORECTAL CANCER SCREENING COLORECTAL CANCER SCREENING [facility] Start: 11-14-[address] COLONOGRAPHY [facility] Start: 11-14-1995 FECAL OCCULT BLOOD FECAL OCCULT BLOOD [facility] Start: 11-14-1995 LIPID SCREEN LIPID SCREEN [facility] Start: 11-14-1995 SIGMOIDOSCOPY SIGMOIDOSCOPY [facility] Start: 1990 Mammography MAMMOGRAM [facility] Start: 1969 SHINGRIX VACCINE (1 of 2) SHINGRIX VACCINE (1 of 2) [facility] Start: 1969 Urine microalbumin profile DTAP,TDAP,TD (1 - Tdap) [facility] Start: 1968 HEPATITIS C SCREENING HEPATITIS C SCREENING [facility] Start: 1962 Adult depression screening assessment DEPRESSION SCREENING [facility] Start: 1956 PNEUMOCOCCAL: 65+ (1 - PCV) PNEUMOCOCCAL: 65+ (1 - PCV) [facility] Start: 11-14-1955 COVID-19 VACCINE (#1) COVID-19 VACCINE (#1) [facility] Start: 05-16-1951 COVID-19 VACCINE (#1) COVID-19 VACCINE (#1) [facility] Start: 1950 Screening for malignant neoplasm of colon [facility] Glucose [Mass/volume ] in Serum or Plasma GLUCOSE, BLOOD (POC) Lab Routine Iron deficiency anemia due to chronic blood loss Controlled type 2 diabetes mellitus without complication, 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 Work Phone: [facility] Immunizations Immunization Date Immunization Notes Care Provider Darío watts 08-01-2024 influenza, seasonal, injectable, preservative free Tj Ramirez NP Work Phone: [facility] 11-11-2021 influenza virus vaccine, unspecified formulation Tj Ramirez SALES APPRENTICE Work Phone: [facility] 11-11-2021 Influenza, High-dose Seasonal, Quadrivalent, Preservative Free Tj Ramirez SALES APPRENTICE Work Phone: [facility] 05-19-2021 influenza virus vaccine, unspecified formulation Tj Ramirez SALES APPRENTICE Work Phone: [facility] 05-19-2021 influenza, unspecifi ed formulation Shante Orzech [facility] 01-30-2021 SARS-CoV-2 (COVID-19 ) mRNA BNT-162b2 vax Shante Orzech [facility] Comment on above: Result Comment: 2023: [id number] 01-02-2021 SARS-CoV-2 (COVID-19 ) mRNA BNT-162u4 vax Shante Orzech [facility] 05-14-2020 influenza virus vaccine, unspecified formulation Shante Orzech [facility] 05-14-2020 Influenza, High-dose Seasonal, Quadrivalent, Preservative Free Tj Ramirez SALES APPRENTICE Work Phone: [facility] 07-26-2019 pneumococcal conjuga te vaccine, 13 valent Tj Ramirez SALES APPRENTICE Work Phone: [facility] 06-28-2019 influenza virus vaccine, unspecified formulation Shante Orzech [facility] 06-28-2019 influenza, high dose seasonal, preservative-free Tj Ramirez SALES APPRENTICE Work Phone: [facility] 08-22-2018 influenza virus vaccine, unspecified formulation Shante Orzech [facility] 08-22-2018 influenza, seasonal, injectable Tj Ramirez SALES APPRENTICE Work Phone: [facility] 06-18-2016 influenza virus vaccine, unspecified formulation Tj Ramirez SALES APPRENTICE Work Phone: [facility] 06-18-2016 influenza, unspecifi ed formulation Shante Orzech [facility] 06-20-2015 influenza virus vaccine, unspecified formulation Shante Orzech [facility] 06-20-2015 influenza, injectabl e, quadrivalent, preservative free Tj Ramirez SALES APPRENTICE Work Phone: [facility] 08-27-2009 novel [id number], preservative-free, injectable Tj Ramirez SALES APPRENTICE Work Phone: [facility] Payers Date Payer Category Payer Medicare (Managed Care) [employer] [id number] 2022 Medicaid MEDICAID [facility] MEDICAID [id number] 2022-Present [phone] [address] [place] [address] Medicaid [id number] 2021 Medicare [facility] MEDICARE [facility] DUAL COMPLETE HMO SNP [id number] 2021-Present [phone] [address] [place] [address] Medicare [id number] 2021 Medicare [id number]. [id number] 2019 Medicaid [id number] [id number]. [id number] 1959 Medicaid [id number] [id number] 1959 Medicare [id number] 2.16.840.1.331838.19 1959 Medicare [id number] 2.16.840.1.778729.19 1959 Private Health Insurance [id number] 1950 Unknown [id number] 2.840.1.670426.3.579.2. 593 1950 Unknown [id number] .16.840.1.089087.3.579.2. 593 1950 Unknown [id number] 2.16.840.1.213754.3.579.2. 593 1950 Unknown [id number] 2.16.840.1.831347.3.579.2. 593 1950 Unknown [id number] 2.16.840.1.470260.3.579.2. 593 1950 Unknown [id number] 2.16.840.1.434653.3.579.2. 593 1950 Unknown [id number] 2.16.840.1.472251.3.579.2. 593 1950 Unknown [id number] 2.16.840.1.083591.3.579.2. 593 1950 Unknown [id number] 2.16.840.1.041255.3.579.2. 593 1950 Unknown [id number] 2.16.840.1.179357.3.579.2. 593 1950 Unknown [id number] 2.16.840.1.649773.3.579.2. 593 1950 Unknown [id number] 2.16.840.1.393629.3.579.2. 593 1950 Unknown [id number] 2.16.840.1.810750.3.579.2. 593 1950 Unknown [id number] 2.16.840.1.417070.3.579.2. 727 1950 Unknown [id number] 2.16.840.1.641273.3.579.2. 727 1950 Unknown [id number] 2.16.840.1.519445.3.579.2. 727 1950 Unknown [id number] 2.16.840.1.174475.3.579.2. 727 1950 Unknown [id number] 2.16.840.1.546890.3.579.2. 727 1950 Unknown [id number] 2.16.840.1.347927.3.579.2. 1259 1950 Unknown [id number] 2.16.840.1.431549.3.579.2. 1259 1950 Unknown [id number] 2.16.840.1.742761.3.579.2. 1259 1950 Unknown [id number] 2.16.840.1.226919.3.579.2. 1259 1950 Unknown [id number] 2.16.840.1.582649.3.579.2. 1259 Medicare Medicare [id number] Private Health Insurance [facility] [id number] Self-pay Self Pay [id number] Social History Date Type Detail Facility Start: 08-17-2023 End: 05-02-2024 Sex Assigned At [facility] Start: 03-31-2016 End: 01-04-2024 Tobacco smoking status NHIS Never smoked tobacco [facility] Start: 03-31-2016 End: 01-04-2024 Tobacco use and exposure Smokeless tobacco non-user [facility] Start: 04-14-2022 End: 04-28-2022 Alcohol intake Current non-drinker of alcohol (finding) [facility] Start: 1950 Sex Assigned At Not on file [facility] Start: 04-04-2022 End: 05-12-2022 Exposure to SARS-CoV-2 (event) Not sure [facility] Start: 1950 Sex Assigned At Female F [facility] Tobacco smoking status Never [facility] Start: 01-04-2024 End: 05-03-2024 Alcoholic beverage intake Lifetime non-drinker (finding) [facility] Start: 08-17-2023 End: 05-02-2024 History of Social function [facility] Within the last year , have you been afraid of your partner or ex-partner? No [facility] Are you now , , , , never or living with a partner? [facility] How often to you hav e a drink containing alcohol? Never [facility] How hard is it for you to pay for the very basics like food, housing, medical care, and heating Somewhat hard [facility] Do you feel stress - tense, restless, nervous, or anxious, or unable to sleep at night because your mind is troubled all the time - these days [OSQ] Not at all [facility] (I/We) worried whether (my/our) food would run out before (I/we) got money to buy more. Never true [facility] NEGATED: Highlighted rowStart: SHAUN History of tobacco use Passive smoker [facility] Medical Equipment Procedure Code Equipment Code Equipment Origin al Text Equipment Identifier Dates [id number] Start: 05-19-2023 Goals Date Patient Goal Desired Activity /State Functional Status Date Assessment Result Facility 05-09-2024 Functional Status N/A [facility] 02-29-2024 Functional Status N/A [facility] Clinical Notes 10-14-2021 to 08-15-2024 Christopher Garrett MD - 08/15/2024 9:50 AM EST Note Date & Type Note Facility 08-15-2024 History of Presen t illness Narrative Robina Ron is a 73 y.o. female Tj Ramirez, * presents with chief complaint of Diabetes (NEW REF ONLY) HPI: HPI 08/2024 New patient sent from Tj Ramirez For uncontrolled diabetes A1c in our office 7, blood sugars 249, currently on insulin 70/30 10 units twice a day, Farxiga 10 mg, Trulicity 1.5 mg, has mild hypoglycemia she said blood sugar high during the middle of the night, and low in the morning, and the last GFR 56, denies ulcers in her feet. SUBJECTIVE: MEDICATIONS: Current Outpatient Medications Medication Instructions albuterol HFA 90 mcg/act inhaler 2 puffs, Every 6 hours PRN atorvastatin (LIPITOR) 20 mg, Oral, Every morning B-D ULTRAFINE III SHORT PEN 31G X 8 MM misc 1 each, 3 times daily PRN Continuous Glucose Pot Pusher (Locate Special DietStyle Toby 3 [place]) device 1 each, Does not apply, Daily dilTIAZem CD (CARDIZEM CD) 240 mg, Oral, Daily Eliquis 5 MG tablet TAKE 1 TABLET BY MOUTH IN THE MORNING AND AT BEDTIME Farxiga 10 mg, Oral, Daily insulin degludec (TRESIBA FLEXTOUCH) 10 Units, Subcutaneous, Nightly insulin NPH-insulin regular (NovoLIN) (70-30) 100 UNIT/ML injection 10 Units, 2 times daily before meals lisinopril 10 mg, Oral, Daily metoprolol tartrate (LOPRESSOR) 50 mg, Oral, Every 12 hours NovoLOG FLEXPEN 5 Units, Subcutaneous, 3 times daily before meals ondansetron (ZOFRAN) 4 mg, Every 8 hours PRN OneTouch Ultra test strip USE TO TEST ONCE A DAY pantoprazole (PROTONIX) 40 mg, Oral, Daily traZODone (DESYREL) 50 mg, Oral, Nightly trospium (SANCTURA) 20 mg, 2 times daily Trulicity 1.5 mg, Subcutaneous, Weekly ALLERGIES: Allergies Allergen Reactions Oxycodone-Acetaminophen Anxiety, Unknown, Anaphylaxis and Hallucinations Severe panic attack Panic attack Symbicort [Budesonide-Formoterol Fumarate] Swelling Tongue swelling Tiotropium Oxycodone Anxiety Past Medical History: Diagnosis Date Abnormal gait Abnormal PFT Arthritis Asthma in adult without complication, unspecified asthma severity, unspecified whether persistent ([facility]/HCC) At high risk for falls Pt was at the liberty for PT/OT. Pt states she cannot afford the 3k it was going to cost her so she stopped. She states she knows what she is doing. He states she is not driving at this time. She would like to. Atrial fibrillation ([facility]) Hx of afib, on cardizem for rate control. Used to be on Eliquis for AC that was discontinued due to GI bleed B12 deficiency Low normal levels On Oral supplementation Benign hypertension (CMS/HCC) Given her age, comorbidities and multiple falls, SBP of 140-150 is appropriate for her and we will not make any changes to her antihypertensive regimen for now. Her BP on average is 130-/90. No orthostasis anymore. Elevated today as she is out of her lisinopril Chronic low back pain without sciatica Chronic lymphocytic leukemia (CMS/HCC) Chronic obstructive pulmonary disease, unspecified COPD type ([facility]/HCC) See Dr Serrano. Stable CKD stage 3 due to type 2 diabetes mellitus (HCC) (CMS/HCC) Cr baseline. No change. BP at goal typically FSBS reviewed and slightly above goal. Has not followed with Nephrology for quite sometime DM (diabetes mellitus) (CMS/HCC) BUCKNER (dyspnea on exertion) BUCKNER, on minimal exertion, associated Palpitations. No prior hx of CAD/ ischemic w/u Factor V Leiden ([facility]/HCC) Pt needs a refill on her medications today. On Eliquis. NO issues with the medications. NO bleeding. Fatigue, unspecified type reports fatigue, low energy GERD (gastroesophageal reflux disease) History of CVA (cerebrovascular accident) History of hysterectomy Hyperlipidemia (CMS/[facility]) Supposed to be on Lovastatin but not using it. Hypokalemia Iron deficiency anemia patient was started on oral iron supplementation for iron deficiency anemia. tolerating it well. no adverse affects. hx of GI bleed - no more bleeding noticed. Also has intermittent low grade leukocytosis. She also has B12 deficiency Leukocytosis Leukocytosis noted on blood work last appt Low back pain Fall about 3-4 weeks ago when her legs gave out. Fell on her back. No head trauma or LOC. Reports chronic back pain but worsened from her baseline. Obesity with body mass index (BMI) of 30.0 to 39.9 JARRET (obstructive sleep apnea) Pericardial effusion Right shoulder pain Secondary pulmonary arterial hypertension ([facility]) Shoulder dislocation, right, sequela Thrombosis of left saphenous vein Type 2 diabetes mellitus ([facility]) Patient was previously on Novolin 70/30 along with Trulicity and Metformin Stopped using Insulin herself as it dropped her blood glucose too low Type 2 diabetes mellitus with diabetic autonomic neuropathy, with long-term current use of insulin ([facility]) Erratic & difficult to control,Partly because of noncompliance not following instructions & failurto f/u. Previously on Metformin,Glipzide &Trulicity. Was on Novolin 70/30 15 q12. Reports 2-3 episodes of hypoglycemia per month. Reports blood glucose are < 100 & are 150-200 in PM. Had been intermittently using Novolin 70/30 TID &sometimes skips meal after using insulin Last OV Metformin wasDC Varicose veins of legs Past Surgical History: Procedure Laterality Date CATARACT EXTRACTION 2011 CERVICAL FUSION 2015 SECTION, LOW TRANSVERSE 1973 SECTION, LOW TRANSVERSE 1975 CHOLECYSTECTOMY 1987 LUMBAR DISCECTOMY 2014 OTHER SURGICAL HISTORY 2011 Optho check - DM TONSILLECTOMY 1956 TOTAL ABDOMINAL HYSTERECTOMY 1987 VASCULAR SURGERY 2013 REVIEW OF SYMPTOMS: 14 POINT OF SYSTEM REVIEWED AND NEGATIVE OBJECTIVE: Constitutional: Afebrile @ home; no weakness or night sweats SKIN: No change in skin color; no itching, rash or lesions; no hair loss; HEENT: No HAs or injury; no dizziness; No difficulty with vision; no eye pain, discharge or lesions; no hearing loss or difficulty; no nasal discharge, NECK: No pain, limitation of motion, lumps or swollen glands RESP: No cough, wheezing or difficulty breathing. No CP with breathing; CARDIO: No CP , SOB or fatigue, No edema, palpitations or dyspnea with exertion GI: No N/V/D or abd. pain; good appetite with no recent change. No heart burn, liver or gallbladder disease; no rectal bleeding or pain : No urinary pain , frequency or odor. MUSCULOSKELETAL: No muscle pain or cramps; no extremity weakness.No joint pain, stiffness, swelling or limitation of movement NEUROLOGY: No H/O seizures, stroke or fainting. No weakness, tremors. Hematology: No bleeding problems or excessive bruising ENDOCRINE: No increase in hunger, thirst or urination; admits compliance to medical management plan Feet: numbness tingling yes , ulcers or skin break no Lab Results Component Value Date HGBA1C 7.0 08/15/2024 HGBA1C 6.6 08/01/2024 HGBA1C 7.1 (H) 05/08/2024 Lab Results Component Value Date GLU 249 08/15/2024 GLU 157 (H) 05/08/2024 GLU 373 (A) 04/14/2022 Visit Vitals BP 96/56 Pulse 87 Resp 18 Ht 5' 1 Wt 131 lb LMP (LMP Unknown) BMI 24.75 kg/m OB Status Hysterectomy Smoking Status Never BSA 1.6 m ASSESSMENT AND PLAN: Assessment/Plan Diagnoses and all orders for this visit: Type 2 diabetes mellitus with diabetic autonomic (poly)neuropathy ([facility]) - POCT glucose manually resulted - POCT glycosylated hemoglobin (Hb A1C) docked device - Ambulatory referral to Endocrinology - C-peptide; Future - Vitamin D 25 hydroxy Total; Future - Microalbumin / creatinine urine ratio; Future - Lipid panel; Future - Renal function panel; Future - insulin degludec (Tresiba FlexTouch) 100 UNIT/ML injection; Inject 10 Units under the skin at bedtime - insulin aspart (NovoLOG FLEXPEN) 100 UNIT/ML pen; Inject 5 Units under the skin in the morning and 5 Units at noon and 5 Units in the evening. Inject before meals. Due to variation in blood sugars and low during morning I will stop insulin 70/30 and start Tresiba 10 units at bedtime, NovoLog 3-4-5 according to meal size plus scale 1. Instruction given, continue his Farxiga 10 mg, continue with Trulicity 1.5 mg once a day we will check lab before next visit including C-peptide Mixed hyperlipidemia ([facility]/HCC) Primary hypertension ([facility]) Encounter for dietary consultation Diet and exercise reviewed with the patient Vitamin D deficiency Hypoglycemia Class 1 obesity due to excess calories with serious comorbidity and body mass index (BMI) of 31.0 to 31.9 in adult Follow up in about 3 months (around 2024). documented in this encounter [facility] 08-15-2024 Evaluation note Diagnosis Anemia due to chronic blood loss- Primary 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, with long-term current use of insulin ([facility]) ([facility]) Mixed hyperlipidemia ([facility]) Mixed hyperlipidemia CLL (chronic lymphocytic leukemia) ([facility]) Chronic lymphoid leukemia, without mention of having achieved remission Primary hypertension ([facility]) Unspecified essential hypertension Gastroesophageal reflux disease without esophagitis Esophageal reflux Encounter for Medicare annual wellness exam Screening mammogram for breast cancer Primary hypertension ([facility])- Primary Unspecified essential hypertension PAF (paroxysmal atrial fibrillation) ([facility]) Atrial fibrillation Stage 3a chronic kidney disease (HCC) ([facility]) Type 2 diabetes mellitus with stage 3a chronic kidney disease, with long-term current use of insulin ([facility]) ([facility]) Type 2 diabetes mellitus with diabetic autonomic (poly)neuropathy ([facility]) Postural urinary incontinence Primary hypertension ([facility]/HCC)- Primary Unspecified essential hypertension PAF (paroxysmal atrial fibrillation) ([facility]/HCC) Atrial fibrillation Stage 3a chronic kidney disease (HCC) ([facility]) Type 2 diabetes mellitus with stage 3a chronic kidney disease, with long-term current use of insulin (HCC) ([facility]) Mixed hyperlipidemia ([facility]/HCC) Mixed hyperlipidemia Chronic obstructive pulmonary disease, unspecified COPD type ([facility]) Gastroesophageal reflux disease without esophagitis Esophageal reflux Type 2 diabetes mellitus without complications ([facility]) Type 2 diabetes mellitus with stage 3a chronic kidney disease, with long-term current use of insulin ([facility]) ([facility]/HCC)- Primary Type 2 diabetes mellitus with diabetic autonomic (poly)neuropathy (CMS/HCC) Chronic obstructive pulmonary disease, unspecified COPD type (CMS/HCC) Need for immunization against influenza Need for prophylactic vaccination and inoculation against influenza Primary hypertension (CMS/HCC) Unspecified essential hypertension Type 2 diabetes mellitus with diabetic autonomic (poly)neuropathy (CMS/HCC)- Primary Mixed hyperlipidemia (CMS/HCC) Mixed hyperlipidemia Primary hypertension (CMS/HCC) Unspecified essential hypertension Encounter for dietary consultation Vitamin D deficiency Hypoglycemia Hypoglycemia, unspecified Class 1 obesity due to excess calories with serious comorbidity and body mass index (BMI) of 31.0 to 31.9 in adult documented in this encounter [id number] NoteCardiology Follow Up Progress Note HPI: Robina Ron is a 73 y.o. female who has a past medical history of Abnormal ECG, Anemia, Arrhythmia, Atrial fibrillation ([facility]/HCC), Chronic kidney disease, Clotting disorder ([facility]/HCC), Diabetes mellitus ([facility]), Hyperlipidemia, Hypertension, Pericardial effusion, and Stroke ([facility]). Patient here for 3 mo follow up hypertension, PAF, Factor V Leiden, and pericardial effusion. Lisinopril was reduced to 5mg at last apt in Apr 2024. She was admitted to [facility] in May 2024 for sepsis. Denies chest pain. Bp is much better controlled. No new complaints. No chest pain or worsening shortness of breath. No edema, orthopnea, or PND. Cardiology ROS: 10 point ROS is performed and is negative unless otherwise specified in HPI. Medications Current Outpatient Medications on File Prior to Visit Medication Sig Dispense Refill apixaban (Eliquis) 5 mg tablet Take 1 tablet (5 mg) by mouth in the morning and at bedtime. 60 tablet 11 atorvastatin (Lipitor) 20 mg tablet 20 mg [...] 10 mg by mouth in the morning. lisinopril 5 mg tablet Take 1 tablet (5 mg) by mouth once daily as directed. 90 tablet 3 metoprolol tartrate (Lopressor) 50 mg tablet Take [...] Oxycodone-acetaminophen and Oxycodone Physical Exam VITAL SIGNS: There were no vitals taken for this visit. Constitutional: Well developed, Well nourished, No acute [...] Affect normal, Judgment normal, Mood normal. Assessment/Plan: HTN PAF Factor V Leiden Continue lisinopril to 5 mg daily. Patient instructed to check daily blood pressure at home 2 hours after taking medication. Patient is instructed to maintain daily blood pressure log. Patient is to contact cardiology if blood pressures above discuss target range. Patient voices understanding. Continue diltiazem and apixiban for PAF Optimize medical management Aggressive risk factor modification Plan of care discussed with patient. All questions were answered. Patient voices understanding and is agreeable with current plan. Patient was educated on red flag symptoms. Strict return precautions were provided. Patient verbalizes understanding Follow-up in cardiology clinic in 3 months, or sooner as needed Edd Wade MD Interventional Cardiology [facility]11-19-2024 History of Present illness Narrative* Tj Ramirez NP - 08/01/2024 12:40 PM EST Associated Problem(s): Primary hypertension (CMS/HCC) Currently taking Lisinopril, metoprolol, cardizem, Checks BP at home; Averages are 120's/70's. Denies orthostatic changes, dizziness, cough, shortness of breath, swelling in extremities. Continue current regimen. Given BP log, advised pt to record BP and bring log back with them to next visit. * Tj Ramirez NP - 08/01/2024 12:40 PM ESTAssociated Problem(s): Mixed hyperlipidemia (CMS/HCC) Currently taking Atorvastatin 20mg Denies any myalgias. Continue current regimen. * Tj Ramirez NP - 08/01/2024 12:40 PM ESTAssociated Problem(s): Type 2 diabetes mellitus with stage 3a chronic kidney disease, with long-term current use of insulin (HCC) (CMS/HCC) Most recent labs: hemoglobin A1C 7.1% needs rechecked today. Average FSBS range from 68-150 Checks BG levels using: FreeStyle continuous glucose monitor Several episodes of hypoglycemia in the afternoons. Spikes in the at bedtime. Decreased Humulin to 10units BID. Refer to Endocrinology for further management. No medication adverse effects reported by the patient. Patient educated on lifestyle modifications, dietary restrictions, signs and symptoms of hypoglycemia/hyperglycemia and importance of eating regular consistent meals. Stressed upon importance of checking blood glucose at home and bring blood glucose log to appointments. All questions, concerns answered and addressed. Encouraged to call office if persistent hypoglycemia/hyperglycemia on home glucose monitoring noted. * Tj Ramirez NP - 08/01/2024 10:29 AM ESTAssociated Problem(s): Chronic obstructive pulmonary disease, unspecified COPD type (CMS/HCC) Using rescue inhaler 1-2 times per month. Feels symptoms are well controlled. No longer follows pulmonolgy * Tj Ramirez NP - 08/01/2024 10:00 AM EST Images from the original note were not included. Subjective Patient ID: Robina Ron is a 73 y.o. female who presents for Hypertension. HPI Specialists: Follows Cardiology- , [facility]- Follows Urology: Dr. Shukla Sees Oncology/Hematology- Factor V Was admitted to [facility] on 06/03/2024 for colitis and septic shock. Was treated with aggressive ATB therapy and IV fluids while in ICU. Was discharged home on 06/07 [place] Cipro/Flagyl and PO Vancomycin. Did not follow up post discharge until today. Reports she feels better now, is still tired. Denies abdominal pain, constipation, blood in stools. HTN: Currently taking Lisinopril, metoprolol, cardizem, Checks BP at home; Averages are 120's/70's. Denies orthostatic changes, dizziness, cough, shortness of breath, swelling in extremities. Continue current regimen. Given BP log, advised pt to record BP and bring log back with them to next visit. HLD: Currently taking Atorvastatin 20mg Denies any myalgias. Continue current regimen. Component Ref Range & Units 2 mo ago (05/08/24) 2 mo ago (05/08/24) 2 mo ago (05/08/24) 2 mo ago (05/08/24) 7 mo ago (12/15/23) 11 mo ago (08/12/23) 11 mo ago (08/12/23) 11 mo ago (08/12/23) TRIGLYCERIDES <=150 mg/dL 165 High 143 R 26.4 R 133.97 R 193 High 242 High 90.0 High R 32.7 R CHOLESTEROL <=200 mg/dL 126 3.8 R 0.6 High R 135 255 High 173.17 R 1.1 High R HDL CHOLESTEROL 40 - 60 mg/dL 47 15.4 R 7.6 High R 53 CM 45 CM 0.52 R 7.1 High R Comment: > or =60 mg/dl - LOW CARDIOVASCULAR RISK <40 mg/dl - HIGH CARDIOVASCULAR RISK LDL CHOLESTEROL CALCULATED mg/dL 46.0 157 High R 3.0 R 44.0 CM 162.0 CM 4.0 High R Comment: <100 mg/dl OPTIMAL 100-129 mg/dl NEAR OR ABOVE OPTIMAL 130-159 mg/dl BORDERLINE HIGH 160-189 mg/dl HIGH >190 mg/dl VERY HIGH VLDL CHOLESTEROL mg/dL 33.0 0.6 R 0.7 R 38.6 48.4 0.8 R CHOL HDL RATIO 2.7 20 R 0.07 High R 2.5 CM 5.7 CM 0.13 High R Comment: 3.3 - 4.4 LOW RISK 4.4 - 7.1 AVERAGE RISK 7.1 - 11.0 MODERATE RISK >11.0 HIGH RISK ALANINE AMINOTRANSFERASE 36 R ALKALINE PHOSPHATASE 149 High R TOTAL PROTEIN 5.8 Low R ALBUMIN LEVEL 3.1 Low R ALBUMIN GLOBULIN RATIO 1.[address] [facility] DMII: Most recent labs: hemoglobin A1C 7.1% needs rechecked today. Average FSBS range from 68-150 Checks BG levels using: FreeStyle continuous glucose monitor Several episodes of hypoglycemia in the afternoons. Spikes in the at bedtime. Decreased Humulin to 10units BID. Refer to Endocrinology for further management. No medication adverse effects reported by the patient. Patient educated on lifestyle modifications, dietary restrictions, signs and symptoms of hypoglycemia/hyperglycemia and importance of eating regular consistent meals. Stressed upon importance of checking blood glucose at home and bring blood glucose log to appointments. All questions, concerns answered and addressed. Encouraged to call office if persistent hypoglycemia/hyperglycemia on home glucose monitoring noted. Education: Check blood sugars daily, notify if <70 or >200. Take medications (pills or insulin) as directed. Monitor for s/s of hypoglycemia (sweaty, dizziness, nausea, vomiting, or shakiness). Watch for increase in thirst, urination, or appetite. Inspect feet frequently monitoring for open wounds , andalso recommend yearly eye exam. Pt should attempt to remain as physically active as chronic conditions allow, as well as trying to follow a diet low in carbohydrates, and simple sugars. Review of Systems Constitutional: Negative for activity change, appetite change, chills, diaphoresis, fatigue, fever and unexpected weight change. HENT: Negative for congestion, ear pain, rhinorrhea, sinus pressure, sinus pain, sneezing, sore throat, trouble swallowing and voice change. Eyes: Negative for visual disturbance. Respiratory: Negative for cough, chest tightness, shortness of breath and wheezing. Cardiovascular: Negative for chest pain, palpitations and leg swelling. Gastrointestinal: Negative for abdominal distention, abdominal pain, blood in stool, constipation, diarrhea and vomiting. Genitourinary: Negative for decreased urine volume, dysuria, flank pain, frequency, hematuria and urgency. Musculoskeletal: Negative for arthralgias, gait problem, joint swelling and myalgias. Skin: Negative for rash. Neurological: Negative for dizziness, tremors, syncope, weakness, light- headedness and headaches. Psychiatric/Behavioral: Negative for decreased concentration and suicidal ideas. The patient is notnervous/anxious. Hematological: Does not bruise/bleed easily. Endocrine: Negative for cold intolerance, heat intolerance, polydipsia, polyphagia and polyuria. Objective Physical Exam Vitals reviewed. Constitutional: Appearance: Normal appearance. HENT: Head: Normocephalic and atraumatic. Right Ear: Tympanic membrane normal. Left Ear: Tympanic membrane normal. Nose: Nose normal. Mouth/Throat: Mouth: Mucous membranes are moist. Pharynx: Oropharynx is clear. Eyes: Pupils: Pupils are equal, round, and reactive to light. Cardiovascular: Rate and Rhythm: Normal rate and regular rhythm. Pulses: Normal pulses. Heart sounds: Normal heart sounds. Pulmonary: Effort: Pulmonary effort is normal. Breath sounds: Normal breath sounds. Abdominal: General: Abdomen is flat. Bowel sounds are normal. Palpations: Abdomen is soft. Musculoskeletal: General: Normal range of motion. Cervical back: Normal range of motion. Skin: General: Skin is warm and dry. Capillary Refill: Capillary refill takes less than 2 seconds. Neurological: General: No focal deficit present. Mental Status: She is alert and oriented to person, place, and time. Psychiatric: Mood and Affect: Mood normal. Behavior: Behavior normal. Assessment/Plan Problem List Items Addressed This Visit Type 2 diabetes mellitus with stage 3a chronic kidney disease, with long-term current use of insulin (HCC) ([facility]) - Primary Most recent labs: hemoglobin A1C 7.1% needs rechecked today. Average FSBS range from 68-150 Checks BG levels using: Bondsy continuous glucose monitor Several episodes of hypoglycemia in the afternoons. Spikes in the at bedtime. Decreased Humulin to 10units BID. Refer to Endocrinology for further management. No medication adverse effects reported by the patient. Patient educated on lifestyle modifications, dietary restrictions, signs and symptoms of hypoglycemia/hyperglycemia and importance of eating regular consistent meals. Stressed upon importance of checking blood glucose at home and bring blood glucose log to appointments. All questions, concerns answered and addressed. Encouraged to call office if persistent hypoglycemia/hyperglycemia on home glucose monitoring noted. Relevant Orders POCT glycosylated hemoglobin (Hb A1C) docked device (Completed) Primary hypertension ([facility]) Currently taking Lisinopril, metoprolol, cardizem, Checks BP at home; Averages are 120's/70's. Denies orthostatic changes, dizziness, cough, shortness of breath, swelling in extremities. Continue current regimen. Given BP log, advised pt to record BP and bring log back with them to next visit. Chronic obstructive pulmonary disease, unspecified COPD type ([facility]) Using rescue inhaler 1-2 times per month. Feels symptoms are well controlled. No longer follows pulmonolgy Other Visit Diagnoses Type 2 diabetes mellitus with diabetic autonomic (poly)neuropathy ([facility]) Relevant Medications insulin NPH-insulin regular (HumuLIN 70/30 KWIKPEN) (70-30) 100 UNIT/ML injection Other Relevant Orders Ambulatory referral to Endocrinology POCT glycosylated hemoglobin (Hb A1C) docked device (Completed) Need for immunization against influenza Relevant Orders Flu vaccine greater than or equal to 3 years old, preservative free IM (Completed) documented in this encounterSaint Louis University [id number] Instructions* Patient Instructions* Tj Ramirez NP - 08/01/2024 10:00 AM EST Referral sent to Endocrinology for Diabetes management- they will call you. If you don't hear from them in 2 weeks, call my office! Education: Check blood sugars daily, notify if <70 or >200. Take medications (pills or insulin) as directed. Monitor for s/s of hypoglycemia (sweaty, dizziness, nausea, vomiting, or shakiness). Watch for increase in thirst, urination, or appetite. Inspect feet frequently monitoring for open wounds , andalso recommend yearly eye exam. Pt should attempt to remain as physically active as chronic conditions allow, as well as trying to follow a diet low in carbohydrates, and simple sugars. documented in this encounterSaint Louis University [id number] Telephone encounter Note* Telephone Encounter - Alondra James NP - 07/17/2024 10:37 AM EST Pt called on my phone line, needs refill of her insulin needles refilled, twice a day She does have an upcoming appt with you as well She said that the pharmacist said that someone wanted to talk to her about this before they could be filled. I am not her provider. But I told her I would let you know Alondra [facility] [employer] Phone: [phone]) 412-374611-04-2024 Miscellaneous Notes* Telephone Encounter - Alondra James NP - 07/17/2024 10:37 AM EST Pt called on my phone line, needs refill of her insulin needles refilled, twice a day She does have an upcoming appt with you as well She said that the pharmacist said that someone wanted to talk to her about this before they could be filled. I am not her provider. But I told her I would let you know Alondra documented in this encounterSaint Louis University [id number] Evaluation + Plan note Diagnostic Tests Pending * Urine Culture 05/09/24 [facility] [id number] Hospital Discharge instructions Patient Education 05/09/2024 10:01:16 Urinary Incontinence Urinary Incontinence Urinary incontinence refers to a condition in which a person is unable to control where and when topass urine. A person with this condition will urinate involuntarily. This means that the person urinates when he or she does not mean to. What are the causes? This condition may be caused by: Medicines. Infections. Constipation. Overactive bladder muscles. Weak bladder muscles. Weak pelvic floor muscles. These muscles provide support for the bladder, intestine, and, in women,the uterus. Enlarged prostate in men. The prostate [...] a small amount, or constantly dribbling urine (overflowincontinence). Urinating because you cannot get to the [...] fiber include beans, whole grains, and fresh fruitsand vegetables. Behavioral changes, such as: ?Pelvic floor [...] nerve stimulation). ?For women, using a medical care administrator to prevent urine leaks. This is a small, tampon-like, disposabledevice that is inserted into the urethra. ?Injecting [...] right after experiencing incontinence. General instructions Take dtlv-fkw-flgryyo and prescription medicines only as told by [...] important. Where to find more information [employer] [place] [employer] and Digestive and Kidney Diseases: www.niddk.nih.gov [employer] [employer]: www.urologyhealth.org Contact a health care [...] is unable to control where and when topass urine. This condition may be caused by medicines, infection, weak bladder muscles, weak pelvic floor muscles, enlargement of the prostate (in men), or surgery. Factors such as older age, obesity, and childbirth, menopause, neurological diseases, andchronic coughing may increase your risk for developing [...] provider. Document Revised: 04/04/2021 Document Reviewed: 04/04/2021 [employer] Patient Education 2022 [employer]. 05/09/2024 10:01:15 Overactive Bladder, Adult Overactive Bladder, [...] You may also have very sensitive muscles thatmake your bladder squeeze too soon. This condition [...] your health care provider. General instructions Take trma-qai-zplzcmn and prescription medicines only as told by your health care provider. If you were prescribed an antibiotic medicine, take it as told by your health care provider. Do notstop taking the antibiotic even if you start [...] provider. Document Revised: 05/19/2021 Document Reviewed: 05/19/2021 [employer] Patient Education 2022 [employer]. Follow Up Care 02/29/2024 11:11:11 With:AMALIA Shukla APRN, Shante Bonilla, NAHEED, URL Address: When: Unknown Comments:6 months [facility] 08-27-2024 NotePatient Education Obstetrics and Gynecology Overactive Bladder, Adult [...] You may also have very sensitive muscles thatmake your bladder squeeze too soon. This condition [...] as stroke, dementia, Parkinson's disease, or multiple sclerosis(MS). ? Eat or drink alcohol, spicy food, [...] health care provider. General instructions ? Take fmbm-jcn-gyhqlze and prescription medicines only as told by [...] help your health care (more content not included)...[facility]08-26-2024 NoteCardiology Follow Up Progress Note Chief Complaint: Follow up HPI: Robina Rno is a 73 y.o. female who has a past medical history of Abnormal ECG, Anemia, Arrhythmia, Atrial fibrillation ([facility]/HCC), Chronic kidney disease, Clotting disorder ([facility]/HCC), Diabetes mellitus ([facility]/HCC), Hyperlipidemia, Hypertension, Pericardial effusion, and Stroke ([facility]/HCC). Patient adamantly denies any cardiac complaints or concerns. Patient denies any chest pain or shortness of breath. Patient denies any lower extremity edema, orthopnea, or proximal nocturnal dyspnea. No near-syncope or syncope. No dizziness or lightheadedness. Bp is low today, lisinopril was recently increased to 10 mg. Cardiology ROS: 10 point ROS is performed and is negative unless otherwise specified in HPI. Medications Current Outpatient Medications on File Prior to Visit Medication Sig Dispense Refill apixaban (Eliquis) 5 mg tablet Take 1 tablet (5 mg) by mouth in the morning and at bedtime. 60 tablet 11 atorvastatin (Lipitor) 20 mg tablet 20 mg [...] and Oxycodone Physical Exam VITAL SIGNS: BP 90/51 (BP Location: Right arm, Patient Position: Standing) Pulse 80 Ht 1.549 m (5' 1 ) Wt 63.5 kg (140 lb) SpO2 95% BMI 26.45 kg/m??? Constitutional: Well developed, Well nourished, No [...] Ron is a 73 y.o. female with Benign hypertensive heart disease without congestive heart failure Decrease lisinopril to 5 mg daily. Patient instructed to check daily blood pressure at home 2 hours after taking medication. Patient is instructed to maintain daily blood pressure log. Patient is to contact cardiology if blood pressures above discuss target range. Patient voices understanding. Optimize medical management Aggressive risk factor modification Plan of care discussed with patient. All questions were answered. Patient voices understanding and is agreeable with current plan. Patient was educated on red flag symptoms. Strict return precautions were provided. Patient verbalizes understanding Follow-up in cardiology clinic in 3 months, or sooner as needed Edd Wade MD Interventional Cardiology [facility]08-21-2024 History of Present illness Narrative* Tj Ramirez NP - 05/03/2024 2:20 PM EDT Associated Problem(s): Mixed hyperlipidemia ([facility]/HCC) Continue Lipitor 20mg Lipid panel ordered today. * Tj Ramirez NP - 05/03/2024 2:20 PM EDTAssociated Problem(s): Type 2 diabetes mellitus with stage 3a chronic kidney disease, with long-term current use of insulin (HCC) ([facility]) States 14 day average 168 A1C needs completed. Ordered today No episodes of hypoglycemia No medication adverse effects reported by the patient. Stressed upon importance of checking blood glucose at home and bring blood glucose log to appointments. On NPH/Regular (70/30) 15 units q12, Farxiga, Trulicity and Glipizide. * Tj Ramirez NP - 05/03/2024 2:19 PM EDTAssociated Problem(s): Stage 3 chronic kidney disease (HCC) (CMS/HCC) Continue Farxiga. Monitor labs. CMP ordered today. * Tj Ramirez NP - 05/03/2024 2:18 PM EDTAssociated Problem(s): Primary hypertension (CMS/HCC) Has been checking BP at home States BP is running in 170's at home but is great today in office. Will bring in BP cuff for comparison. Continue Metoprolol and diltiazem as ordered. * Tj Ramirez NP - 05/03/2024 2:14 PM EDTAssociated Problem(s): Chronic obstructive pulmonary disease, unspecified COPD type (CMS/HCC) Using rescue inhaler 1-2 times per month Feels symptoms are well controlled. No longer follows pulmonolgy * Tj Ramirez NP - 05/03/2024 11:00 AM EDTAssociated Problem(s): Gastroesophageal reflux disease without esophagitis Symptoms well managed. Continue taking Protonix as directed. * Tj Ramirez NP - 05/03/2024 10:30 AM EDT Images from the original note were not included. Subjective Patient ID: Robina Ron is a 73 y.o. female who presents for Follow-up. HPI Follows Cardiology- , [facility]- next appointment unsure Follows Urology: Dr. Shukla Sees Oncology/Hematology- Factor V HTN: Has been checking BP at home States BP is running in 170's at home but is great today in office. Will bring in BP cuff for comparison. Metoprolol Diltiazem HLD: On atorvastatin Denies myalgias Component Ref Range & Units 4 mo ago (12/15/23) 8 mo ago (08/12/23) 8 mo ago (08/12/23) 8 mo ago (08/12/23) TRIGLYCERIDES <=150 mg/dL 193 High 242 High 90.0 High R 32.7 R CHOLESTEROL <=200 mg/dL 135 255 High 173.17 R 1.1 High R HDL CHOLESTEROL 40 - 60 mg/dL 53 45 CM 0.52 R 7.1 High R Comment: > or =60 mg/dl - LOW CARDIOVASCULAR RISK <40 mg/dl - HIGH CARDIOVASCULAR RISK LDL CHOLESTEROL CALCULATED mg/dL 44.0 162.0 CM 4.0 High R Comment: <100 mg/dl OPTIMAL 100-129 mg/dl NEAR OR ABOVE OPTIMAL 130-159 mg/dl BORDERLINE HIGH 160-189 mg/dl HIGH >190 mg/dl VERY HIGH VLDL CHOLESTEROL mg/dL 38.6 48.4 0.8 R CHOL HDL RATIO 2.5 5.7 CM 0.13 High R Comment: 3.3 - 4.4 LOW RISK 4.4 - 7.1 AVERAGE RISK 7.1 - 11.0 MODERATE RISK >11.0 HIGH RISK DM: Most recent labs: hemoglobin A1C 8.5% in December 2023 14 day average 168 No episode of hypoglycemia No medication adverse effects reported by the patient. Patient educated on lifestyle modifications, dietary restrictions, signs and symptoms of hypoglycemia/hyperglycemia and importance of eating regular consistent meals. Stressed upon importance of checking blood glucose at home and bring blood glucose log to appointments. All questions, concerns answered and addressed. Encouraged to call office if persistent hypoglycemia/hyperglycemia on home glucose monitoring noted. Diabetic foot exam: Left: Reflexes 2+ Vibratory sensation normal Proprioception normal Sharp/dull discrimination normal Filament test present Right: Reflexes 2+ Vibratory sensation normal Proprioception normal Sharp/dull discrimination normal Filament test present DM eye exam: a few years ago- is due and is scheduling appointment CKD: Will check labs today COPD/Asthma: Using rescue inhaler 1-2 times per month Feels symptoms are well controlled. Has palpitations occasionally- Just completed Holter Monitor for Cardiology last week. Review of Systems Constitutional: Negative for activity change, appetite change, chills, diaphoresis, fatigue, fever and unexpected weight change. HENT: Negative for congestion, ear pain, rhinorrhea, sinus pressure, sinus pain, sneezing, sore throat, trouble swallowing and voice change. Eyes: Negative for visual disturbance. Respiratory: Negative for cough, chest tightness, shortness of breath and wheezing. Cardiovascular: Negative for chest pain, palpitations and leg swelling. Gastrointestinal: Negative for abdominal distention, abdominal pain, blood in stool, constipation, diarrhea and vomiting. Genitourinary: Negative for decreased urine volume, dysuria, flank pain, frequency, hematuria and urgency. Musculoskeletal: Negative for arthralgias, gait problem, joint swelling and myalgias. Skin: Negative for rash. Neurological: Negative for dizziness, tremors, syncope, weakness, light- headedness and headaches. Psychiatric/Behavioral: Negative for decreased concentration and suicidal ideas. The patient is notnervous/anxious. Hematological: Does not bruise/bleed easily. Endocrine: Negative for cold intolerance, heat intolerance, polydipsia, polyphagia and polyuria. Objective Physical Exam Vitals reviewed. Constitutional: Appearance: Normal appearance. HENT: Head: Normocephalic and atraumatic. Right Ear: Tympanic membrane normal. Left Ear: Tympanic membrane normal. Nose: Nose normal. Mouth/Throat: Mouth: Mucous membranes are moist. Pharynx: Oropharynx is clear. Eyes: Pupils: Pupils are equal, round, and reactive to light. Cardiovascular: Rate and Rhythm: Normal rate and regular rhythm. Pulses: Normal pulses. Heart sounds: Normal heart sounds. Pulmonary: Effort: Pulmonary effort is normal. Breath sounds: Normal breath sounds. Abdominal: General: Abdomen is flat. Bowel sounds are normal. Palpations: Abdomen is soft. Musculoskeletal: General: Normal range of motion. Cervical back: Normal range of motion. Skin: General: Skin is warm and dry. Capillary Refill: Capillary refill takes less than 2 seconds. Neurological: General: No focal deficit present. Mental Status: She is alert and oriented to person, place, and time. Psychiatric: Mood and Affect: Mood normal. Behavior: Behavior normal. Assessment/Plan Problem List Items Addressed This Visit Type 2 diabetes mellitus with stage 3a chronic kidney disease, with long-term current use of insulin ([facility]) ([facility]) States 14 day average 168 A1C needs completed. Ordered today No episodes of hypoglycemia No medication adverse effects reported by the patient. Stressed upon importance of checking blood glucose at home and bring blood glucose log to appointments. On NPH/Regular (70/30) 15 units q12, Farxiga, Trulicity and Glipizide. Relevant Medications Continuous Glucose Pot Pusher (FreeStyle Toby 3 [place]) device Continuous Glucose Sensor (FreeStyle Toby 3 Plus Sensor) misc Other Relevant Orders Microalbumin / creatinine urine ratio Comprehensive metabolic panel CBC and differential Hemoglobin A1c Ambulatory referral to Podiatry Mixed hyperlipidemia ([facility]/HCC) Continue Lipitor 20mg Lipid panel ordered today. Relevant Orders Lipid panel Primary hypertension ([facility]) - Primary Has been checking BP at home States BP is running in 170's at home but is great today in office. Will bring in BP cuff for comparison. Continue Metoprolol and diltiazem as ordered. Relevant Orders Microalbumin / creatinine urine ratio Comprehensive metabolic panel CBC and differential Gastroesophageal reflux disease without esophagitis Symptoms well managed. Continue taking Protonix as directed. PAF (paroxysmal atrial fibrillation) (CMS/HCC) Relevant Orders Comprehensive metabolic panel CBC and differential Stage 3 chronic kidney disease (HCC) ([facility]) Continue Farxiga. Monitor labs. CMP ordered today. Relevant Orders Microalbumin / creatinine urine ratio Comprehensive metabolic panel Chronic obstructive pulmonary disease, unspecified COPD type ([facility]) Using rescue inhaler 1-2 times per month Feels symptoms are well controlled. No longer follows pulmonolgy Other Visit Diagnoses Type 2 diabetes mellitus without complications ([facility]) Relevant Medications Continuous Glucose Pot Pusher (FreeStyle Toby 3 [place]) device Continuous Glucose Sensor (FreeStyle Toby 3 Plus Sensor) misc documented in this encounterSaint Louis University [id number] Instructions* Patient Instructions* Tj Ramirez NP - 05/03/2024 10:30 AM EDT FASTING labs ordered. Nothing to eat or drink for 12 hours prior to blood draw. Water and black coffee ok. Your blood pressure is GOOD in the office today. Check your blood pressure at home 3 times per day, in morning, afternoon and before bed. Goal <130/90. Record results in blood pressure log. Bring back with you to your next visit. Referral sent to Podiatry- they will call you! Education: Check blood sugars daily, notify if <70 or >200. Take medications (pills or insulin) as directed. Monitor for s/s of hypoglycemia (sweaty, dizziness, nausea, vomiting, or shakiness). Watch for increase in thirst, urination, or appetite. Inspect feet frequently monitoring for open wounds , andalso recommend yearly eye exam. Pt should attempt to remain as physically active as chronic conditions allow, as well as trying to follow a diet low in carbohydrates, and simple sugars. documented in this encounterSaint Louis University [id number] NoteCardiology Follow Up Progress Note Chief Complaint: Follow [...] as needed Edd Wade MD Interventional Cardiology [facility]06-23-2024 NoteChief Complaint Referral *Incontinence HPI Staff Evaluation requested [...] with voice recognition artificial intelligence software, specifically [employer], Runa and or BLOVES. Substitutions may have occurred due to the [...] with diabetic autonomic (poly)neuropathy (more content not included)...[facility] HospitalComment on above:Result Comment: Electronically Signed By: AMALIA Shukla APRN, [place]\.br\Date and Time Signed: 03/05/24 22:19 [id number] Miscellaneous Notes* Telephone Encounter - Makenna Kendall RN - 04/21/2022 1:47 PM EDT Pt has follow up appointment with Dr Rainey tomorrow. Makenna Kendall RN * Telephone Encounter - Makenna Kendall RN - 04/21/2022 1:31 PM EDT Spoke with Pankaj at Dr Rainey's office. Recent records and labs faxed to [phone] per office request. Makenna Kendall RN * Telephone Encounter - Makenna Kendall RN - 04/21/2022 12:54 PM EDT Message left with Dr Rainey's medical equipment repairer again today regarding this pt and the urgency of this being addressed. Will try again later today if I don't hear back from their office. Makenna Kendall RN * Telephone Encounter - Makenna Kendall RN - 04/17/2022 10:39 AM EDT Call placed to [facility]. Office is closed. Makenna Kendall RN * Telephone Encounter - Ninoska Maldonado Pss - 04/14/2022 2:03 PM EDT PCP updated in chart * Telephone Encounter - Makenna Kendall RN - 04/14/2022 1:49 PM EDT Glucose rechecked in the office and it was 373 by fingerstick. Call placed to Dr Joseph who is listed at pt's PCP. Jono states he has not worked in the office in 4 years now. Jono states pt is nowseen by Dr Rainey at [facility]. Call placed to their office ([phone]) and message left requesting a call back. PSS: can you please update pt's PCP info. Thanks, Makenna Kendall RN * Telephone Encounter - Christi Fink MD - 04/14/2022 1:39 PM EDT Thanks. Can we have her PCP address this, Thanks * Telephone Encounter - Christy Byrd RN - 04/14/2022 1:23 PM EDT Key Monteiro from [facility] Lab Client Services calls to report critical results: Glucose - 506 Pt identifiers and results read back for verification. Christy Byrd, RN documented in this encounterUniversity Hospitals Lake West [facility] Center08-04-2022 Miscellaneous Notes* Telephone Encounter - Adrienne Weinstein [facility] - 04/16/2022 9:06 AM EDT Called Angélica Romano spoke with Kenyatta. She states they have patient scheduled to see Dr Patel on 05/12 for EGD. Adrienne Dodson * Telephone Encounter - Adrienne Weinstein [facility] - 04/13/2022 1:16 PM EDT Called Angélica Romano spoke with Kenyatta. She states they have called left patient message to call them back to schedule. Adrienne Dodson * Telephone Encounter - Adrienne Weinstein [facility] - 04/09/2022 8:38 AM EDT Called Angélica Romano spoke with Kenyatta. She states they have received this referral and their referral dept will be calling patient soon to schedule. I will call back sometime next week check on status of this referral. Adrienne Dodson * Telephone Encounter - Shaye Gonzalez [facility] - 04/06/2022 8:57 AM EDT Records faxed to Dr. Rich. * Telephone Encounter - Adrienne Weinstein [facility] - 04/06/2022 8:12 AM EDT Gladys: Information ready for you. Adrienne Dodson * Telephone Encounter - Makenna Lebron - 04/06/2022 7:47 AM EDT Images from the original note were not included. Please send records to [facility] office thanks! MD Tj Thompson; Makenna Lebron Please refer her to GI for an upper endoscopy. Thanks documented in this encounterUniversity Hospitals Lake West Medical Center08-03-2022 Evaluation note* Encounter Date Diagnosis Assessment Notes Treatment Notes Treatment Clinical Notes Apr, Anemia due to blood loss, chronic (ICD-10 - D50.0) [employer] Other 08-02-2022 NoteHNO ID: [id number] Author: Brenda Tavera RN Service: ? Author [...] noted. She has verbalized understanding Brenda Tavera RNWilson Memorial Hospital08-02-2022 NoteHNO ID: [id number] Author: Christi Fink MD Service: ? Author Type: Physician Type: Progress Notes Filed: 04/14/2022 1:13 PM Note Text: PATIENT NAME: Robina Steele [facility] NO.: [id number] ATTENDING PHYSICIAN: Christi Fink MD DATE OF [...] g/dL Final RDW-CV Date (more content not included)...[facility]08-02-2022 History of Present illness Narrative* Brenda [...] understanding Brenda Tavera RN documented in this encounterUniversity Hospitals Lake West Medical Center07-22-2022 NoteHNO ID: [id number] Author: Christi Fink MD Service: ? Author Type: Physician Type: Progress Notes Filed: 04/04/2022 11:07 AM Note Text: PATIENT NAME: Robina Ron CLINIC NO.: [id number] ATTENDING PHYSICIAN: Christi Fink MD DATE OF [...] not taking: Reported on 03/31/2022 ) - Gykzh-7-TNA-EPA-Fish Oil 1,000 mg (120 mg-180 mg) cap [...] PAST MEDICAL HISTORY Diagnosis Date - A-fib ([facility]) - Anemia - Asthma - Chronic low back pain with sciatica - COPD (chronic obstructive pulmonary disease) ([facility]) - CVA (cerebral (more content not included)...[facility] 12-22-2021 NoteCARDIAC STRESS TEST Requesting Physician: [...] interpreted and reported in a separate dictation. 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 If long-term pain and dysfunction occur, surgical treatment can be considered. Patient given order for physical therapy. [employer] Other Evaluation + Plan note Future Appointments Appointment Date:04/11/2024 09:00:00 AM Scheduled Provider:AMALIA Shukla APRN, [place] Location:[facility] Appointment Type:URO Office Visit [facility] evaluation + Plan note Future Appointments Appointment Date:04/11/2024 09:00:00 AM Scheduled Provider:AMALIA Shukla APRN, [place] Location:[facility] Appointment Type:URO Office Visit Diagnostic Tests Pending * Urine Culture 02/29/24 [facility] note* Diagnosis Iron deficiency anemia due to chronic blood loss- Primary Iron deficiency anemia secondary to blood loss (chronic) Controlled type 2 diabetes mellitus without complication, 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) documented in this encounter [facility] note* Diagnosis Iron deficiency anemia due to chronic blood loss- Primary Iron deficiency anemia secondary to blood loss (chronic) [facility]* Diagnosis Iron deficiency anemia due to chronic blood loss- Primary Iron deficiency anemia secondary to blood loss (chronic) [facility] Diagnosis Iron deficiency anemia due to chronic blood loss- Primary Iron deficiency anemia secondary to blood loss (chronic) documented in this encounter [facility] CenterEvaluation note* Diagnosis Iron deficiency anemia due to chronic blood loss- Primary Iron deficiency anemia secondary to blood loss (chronic) documented in this encounter [facility] CenterEvaluation note* Diagnosis Onset Date Resolution Status Iron deficiency anemia acute [facility] Work Phone: Evaluation note* Diagnosis Anemia due to chronic blood loss- Primary 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, with long-term current use of insulin (HCC) ([facility]/HCC) Mixed hyperlipidemia ([facility]/HCC) Mixed hyperlipidemia CLL (chronic lymphocytic leukemia) ([facility]/HCC) Chronic lymphoid leukemia, without mention of having achieved remission Primary hypertension ([facility]/HCC) Unspecified essential hypertension Gastroesophageal reflux disease without esophagitis Esophageal reflux Encounter for Medicare annual wellness exam Screening mammogram for breast cancer Primary hypertension ([facility])- Primary Unspecified essential hypertension PAF (paroxysmal atrial fibrillation) ([facility]/HCC) Atrial fibrillation Stage 3a chronic kidney disease (HCC) ([facility]/HCC) Type 2 diabetes mellitus with stage 3a chronic kidney disease, with long-term current use of insulin (HCC) ([facility]/HCC) Type 2 diabetes mellitus with diabetic autonomic (poly)neuropathy ([facility]/HCC) Postural urinary incontinence Primary hypertension ([facility]/HCC)- Primary Unspecified essential hypertension PAF (paroxysmal atrial fibrillation) ([facility]/HCC) Atrial fibrillation Stage 3a chronic kidney disease (HCC) ([facility]/HCC) Type 2 diabetes mellitus with stage 3a chronic kidney disease, with long-term current use of insulin (HCC) ([facility]/HCC) Mixed hyperlipidemia ([facility]/HCC) Mixed hyperlipidemia Chronic obstructive pulmonary disease, unspecified COPD type (CMS/HCC) Gastroesophageal reflux disease without esophagitis Esophageal reflux Type 2 diabetes mellitus without complications ([facility]/HCC) Type 2 diabetes mellitus with stage 3a chronic kidney disease, with long-term current use of insulin (HCC) ([facility]/HCC)- Primary Type 2 diabetes mellitus with diabetic autonomic (poly)neuropathy ([facility]/HCC) Chronic obstructive pulmonary disease, unspecified COPD type ([facility]/HCC) Need for immunization against influenza Need for prophylactic vaccination and inoculation against influenza Primary hypertension (CMS/HCC) Unspecified essential hypertension documented in this encounter [facility]Evaluation note* Diagnosis Anemia due to chronic blood loss- Primary 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, with long-term current use of insulin (HCC) ([facility]) Mixed hyperlipidemia ([facility]/HCC) Mixed hyperlipidemia CLL (chronic lymphocytic leukemia) ([facility]) Chronic lymphoid leukemia, without mention of having achieved remission Primary hypertension ([facility]) Unspecified essential hypertension Gastroesophageal reflux disease without esophagitis Esophageal reflux Encounter for Medicare annual wellness exam Screening mammogram for breast cancer Primary hypertension ([facility])- Primary Unspecified essential hypertension PAF (paroxysmal atrial fibrillation) ([facility]) Atrial fibrillation Stage 3a chronic kidney disease (HCC) ([facility]) Type 2 diabetes mellitus with stage 3a chronic kidney disease, with long-term current use of insulin ([facility]) ([facility]) Type 2 diabetes mellitus with diabetic autonomic (poly)neuropathy ([facility]) Postural urinary incontinence Primary hypertension ([facility])- Primary Unspecified essential hypertension PAF (paroxysmal atrial fibrillation) ([facility]) Atrial fibrillation Stage 3a chronic kidney disease (HCC) ([facility]) Type 2 diabetes mellitus with stage 3a chronic kidney disease, with long-term current use of insulin (HCC) ([facility]) Mixed hyperlipidemia ([facility]) Mixed hyperlipidemia Chronic obstructive pulmonary disease, unspecified COPD type ([facility]) Gastroesophageal reflux disease without esophagitis Esophageal reflux Type 2 diabetes mellitus without complications ([facility]) Type 2 diabetes mellitus with stage 3a chronic kidney disease, with long-term current use of insulin (HCC) ([facility])- Primary Type 2 diabetes mellitus with stage 3a chronic kidney disease, with long-term current use of insulin (HCC) ([facility])- Primary Type 2 diabetes mellitus with diabetic autonomic (poly)neuropathy ([facility]) Chronic obstructive pulmonary disease, unspecified COPD type ([facility]/HCC) Need for immunization against influenza Need for prophylactic vaccination and inoculation against influenza Primary hypertension ([facility]) Unspecified essential hypertension documented [facility] this encounter [facility]* Diagnosis Primary hypertension ([facility])- Primary Unspecified essential hypertension PAF (paroxysmal atrial fibrillation) ([facility]) Atrial fibrillation Stage 3a chronic kidney disease (HCC) ([facility]) Type 2 diabetes mellitus with stage 3a chronic kidney disease, with long-term current use of insulin (HCC) ([facility]) Mixed hyperlipidemia ([facility]) Mixed hyperlipidemia Chronic obstructive pulmonary disease, unspecified COPD type (CMS/HCC) Gastroesophageal reflux disease without esophagitis Esophageal reflux Type 2 diabetes mellitus without complications ([facility]) documented in this encounter [facility] Narrative - Reported* Type Description Date Medical History diabetes type 2 Medical History stroke Medical History mild form of leukemia Surgical History x2 Surgical History cateract removal bilateral Surgical History kidney and bladder surgery Surgical History choliectomy Hospitalization History listed above [employer] Other Hospital course Narrative No data available for this section [facility] Hospital Discharge instructions No data available for this section [facility] Privatext progress note No data available for this section [facility] Privatext reason for referral (narrative)* Consultation (Routine) - Authorized Specialty Diagnoses / Procedures Referred By Ly infante Referred To Contact Podiatry Diagnoses Type 2 diabetes mellitus with stage 3a chronic kidney disease, with long-term current use of insulin (HCC) (CMS/[facility]) Procedures DE OFFICE/OUTPATIENT NEW HIGH MDM 60 MINUTES Tj Ramirez NP [address] [place] [id number] Ammon Khanna DPM [address] [address] Referral ID Status Reason Start Date Expiration Date Visits Requested Visits Authorized [id number] Authorized Specialty Services Required 05/03/2024 10/30/2024 1 1 [facility] Medications Administered Section Inactive Administered Medications - [...] mg 400 mL/hr Summary Purpose Family History Relationship Condition Age at Onset Recorded Date/T deisi Not Specified Coronary artery disease Unknown Advance Directives Advance Directive Response Recorded Date/ Time Advance [...] INJECTION PER 1 MG Christi Fink MD [address] [facility] [place] [address] Jasiel Treat Hilda [address] [facility] [place] [address] Referral ID Status Reason Start Date Expiration Date V isits Requested Visits Authorized [id number] Authorized 04/03/2022 09/12/2022 99 99 Reason Comments Appointment Confirmation Reason Comments Critical Results Glucose Reason Comments Hypertension Reason Comments Diabetes NEW REF ONLY Specialty Diagnoses / Procedures Referred By Contac t Referred To Contact Endocrinology Diagnoses Type 2 diabetes mellitus with diabetic autonomic (poly)neuropathy (CMS/HCC) Procedures DE OFFICE/OUTPATIENT NEW HIGH MDM Tj Ramirez, [address] [place] [address] Phone: tel: fax: Christopher Garrett MD [address] [place] [address] Phone: tel: fax: Referral ID Status Reason Start Date Expiration Date V isits Requested Visits Authorized [id number] Closed Specialty Services Required 08/01/2024 01/28/2025 1 1 Reason Comments Follow-up Source Comments (unrecognize d section and content) In the event this informatio n is protected by the Federal Confidentiality of Alcohol and Drug Abuse Patient Records regulations: The Federal rules restrict any use of the information to criminally investigate or prosecute any alcohol or drug abuse patient.[facility] CenterIn the event this information is protected by the Federal Confidentiality of Alcohol and Drug Abuse Patient Records regulations: The Federal rules restrict any use of the information to criminally investigate or prosecute any alcohol or drug abuse patient.[facility] CenterIn the event this information is protected by the Federal Confidentiality of Alcohol and Drug Abuse Patient Records regulations: The Federal rules restrict any use of the information to criminally investigate or prosecute any alcohol or drug abuse patient.[facility] CenterIn the event this information is protected by the Federal Confidentiality of Alcohol and Drug Abuse Patient Records regulations: The Federal rules restrict any use of the information to criminally investigate or prosecute any alcohol or drug abuse patient.[facility] CenterIn the event this information is protected by the Federal Confidentiality of Alcohol and Drug Abuse Patient Records regulations: The Federal rules restrict any use of the information to criminally investigate or prosecute any alcohol or drug abuse patient.[facility] CenterIn the event this information is protected by the Federal Confidentiality of Alcohol and Drug Abuse Patient Records regulations: The Federal rules restrict any use of the information to criminally investigate or prosecute any alcohol or drug abuse patient.[facility] CenterIn the event this information is protected by the Federal Confidentiality of Alcohol and Drug Abuse Patient Records regulations: The Federal rules restrict any use of the information to criminally investigate or prosecute any alcohol or drug abuse patient.[facility] Care Teams (unrecognized sec tion and content) Landscape Management Technician Relationship Specialty Start Date End Date Shaikh Sparks MD [address] [place] [address] PCP - General Primary Care 04/14/22 Landscape Management Technician Relationship Specialty Start Date End Date Demetrio Joseph PCP - General Family Practice 03/09/16 04/13/22 Shaikh Sparks MD [address] [place] [address] PCP - General Primary Care 04/14/22 Landscape Management Technician Relationship Specialty Start Date End Date Shaikh Spakrs MD [address] [place] [address] PCP - General Primary Care 04/14/22 Landscape Management Technician Relationship Specialty Start Date End Date Shaikh Sparks MD [address] [place] [address] PCP - General Primary Care 04/14/22 Landscape Management Technician Relationship Specialty Start Date End Date Shaikh Sparks MD [address] [place] [address] PCP - General Primary Care 04/14/22 Landscape Management Technician Relationship Specialty Start Date End Date Shaikh Sparks MD [address] [place] [address] PCP - General Primary Care 04/14/22 Landscape Management Technician Relationship Specialty Start Date End Date Shaikh Sparks MD [facility] [place] [address] PCP - General Primary Care 04/14/22 Team Status: Inactive Member Role Status Dates Hood Patel MD Attending Provider Active Shaikh Clare MD Primary Care Provider Active Team Status: Active Member Role Status Dates Shaikh Clare MD Primary Care Provider Active Landscape Management Technician Relationship Specialty Start Date End Date Estuardo Sanchez MD [address] [place] [address] PCP - General Family Medicine 04/18/24 Tj Ramirez NP [address] [place] [address] Nurse Practitioner Family Medicine 04/18/24 Landscape Management Technician Relationship Specialty Start Date End Date Estuardo Sanchez MD [address] [place] [phone] PCP - General Family Medicine 04/18/24 Tj Ramirez NP [address] [place] [address] Nurse Practitioner Family Medicine 04/18/24 Landscape Management Technician Relationship Specialty Start Date End Date Estuardo Sanchez MD [address] [place] [phone] PCP - General Family Medicine 04/18/24 Tj Ramirez NP [address] [place] [address] Nurse Practitioner Family Medicine 04/18/24 Landscape Management Technician Relationship Specialty Start Date End Date Estuardo Sanchez MD [address] [place] [phone] PCP - General Family Medicine 04/18/24 Tj Ramirez NP [address] [place] [address] Nurse Practitioner Family Medicine 04/18/24 Landscape Management Technician Relationship Specialty Start Date End Date Estuardo Sanchez MD [address] [place] [phone] PCP - General Family Medicine 04/18/24 Tj Ramirez NP [address] [place] [address] Nurse Practitioner Family Medicine 04/18/24 Landscape Management Technician Relationship Specialty Start Date End Date Estuardo Sanchez MD [address] [place] [phone] PCP - General Family Medicine 04/18/24 Tj Ramirez NP [address] [place] [address] Nurse Practitioner Family Medicine 04/18/24 Landscape Management Technician Relationship Specialty Start Date End Date Estuardo Sanchez MD [address] [place] [phone] PCP - General Family Medicine 04/18/24 Tj Ramirez NP [address] [place] [address] Nurse Practitioner Family Medicine 04/18/24 Landscape Management Technician Relationship Specialty Start Date End Date Estuardo Sanchez MD [address] [place] [phone] PCP - General Family Medicine 04/18/24 Tj Ramirez NP [address] [place] [address] Nurse Practitioner Family Medicine 04/18/24 Landscape Management Technician Relationship Specialty Start Date End Date Estuardo Sanchez MD [address] [place] [phone] PCP - General Family Medicine 04/18/24 Tj Ramirez NP [address] [place] [address] Nurse Practitioner Family Medicine 04/18/24 Landscape Management Technician Relationship Specialty Start Date End Date Estuardo Sanchez MD [address] [place] [address] PCP - General Family Medicine 04/18/24 Tj Ramirez NP [address] [place] [address] Nurse Practitioner Family Medicine 04/18/24 INFORMATION SOURCE (unrecogn ized section and content) DATE CREATED AUTHOR 05/14/2022 [facility] DATE CREATED AUTHOR AUTHOR'S ORGANIZ ATION 05/16/2022 [facility] DATE CREATED AUTHOR AUTHOR'S ORGANIZ ATION 07/07/2022 [facility] DATE CREATED AUTHOR AUTHOR'S ORGANIZ ATION 03/03/2024 [facility] DATE CREATED AUTHOR AUTHOR'S ORGANIZ ATION 05/10/2024 [facility] DATE CREATED AUTHOR AUTHOR'S ORGANIZ ATION 05/11/2024 [facility] DATE CREATED AUTHOR AUTHOR'S ORGANIZ ATION 07/15/2024 [facility] DATE CREATED AUTHOR AUTHOR'S ORGANIZ ATION 08/07/2024 [facility] DATE CREATED AUTHOR AUTHOR'S ORGANIZ ATION 08/16/2024 [facility] [employer] EPIC FOR RECORDS PERTAINING TO PATIENTS WHO ARE [...] BE BASED ON THE PRIMARY CLINICAL RECORDS. [facility] [employer] provides no warranty or guarantee of the accuracy or completeness of information in this document.
[2024-10-14 10:27] LABS: Creatinine Urine Random 98.65 mg/dL (20.00-300.00); Microalbum Creatinine Ratio Ur 182.4 mg/g (0.0-29.9)
[2024-10-14 10:55] LABS: Albumin Level 3.3 g/dL (3.4-5.0); Anion Gap 13.8; BUN Creatinine Ratio 22.5; Calcium 8.8 mg/dL (8.5-10.1); Carbon Dioxide 25.4 mmol/L (21.0-32.0); Chloride 107 mmol/L (98-107); Chol HDL Ratio 2.3; Cholesterol 142 mg/dL (<=200); Estimated GFR (African America 49 (>=60 mL/min/1.73m^2); Estimated GFR (Non-African Ame 41 (>=60 mL/min/1.73m^2); Glucose 151 mg/dL (74-106); HDL Cholesterol 63 mg/dL (40-60); Potassium 4.2 mmol/L (3.5-5.1); Sodium 142 mmol/L (136-145); Triglycerides 106 mg/dL (<=150); VLDL CHOLESTEROL 21.2 mg/dL
[2024-10-15 13:08] LABS: C-Peptide, Serum 2.7 ng/mL (1.1-4.4)
== END 2024-10-14 09:50 | disposition home or self-care (01) ==
LOC: LAB 09:51
PROVIDERS: Visit Provider Internal Medicine
DX: E55.9 Vitamin D deficiency, unspecified (principal); E11.43 Type 2 diabetes mellitus with diabetic autonomic (poly)neuropathy
CPT/HCPCS: 36415; 80061; 80069; 82043; 82306; 82570; 84681

== ENCOUNTER 2024-11-06 23:24 | Inpatient (IN) | payer MEDICARE, MEDICAID, SELFPAY ==
--- OUTSIDE RECORDS SUMMARY | 2024-11-06 23:36 | XMS_ITS | CCD ---
Author Organization [facility] Inform ion Partnership [facility] Care Team Providers Care Cardiac/Vascular Sonographer Name Role Phone Lawanda Alvarez Unavailable Shaikh Sparks MD Primary Care Provider Demetrio Joseph Primary Care Provider Hood Patel Unavailable [phone] Shaikh Sparks MD Primary Care Provider MD Hood Patel Attending Provider MD Amy [...] Care Unavailable DR LJ BRENNAN Consulting Unavailabl hung BRENNAN, DR LJ Persaud Attending Unavailyaneth BRENNAN, [...] Admitting Unavailable FAWWAD, WATERS Primary Care Physician [phone] Shante Shukla Attending Unavailable FAWWAD, WATERS Referring Unavailable Orzech Shante X Attending Unavailable Orzech, Shante X Admitting Unavailable Orzech, Shante X Attending Unavailable Orzech, Shante X Attending Unavailable Orzech, Shante X Admitting Unavailable Orzech, Shante X Attending Unavailable Estuardo Sanchez MD Primary Care Provider [phone] Ashley GARCIA, Tj Unavailable [phone] ALGHOTHANI, MOHAMAD Attending Unavailable ALGHOTHANI, MOHAMAD Attending Unavailable ALGHOTHANI, MOHAMAD Attending Unavailable Shaikh Sparks MD Unavailable CHRISTOPHER GARRETT Attending Unavailable TJ RAMIREZ Attending SHAIKH Mckeon Attending Unavailable TJ RAMIREZ Attending UnavailTJ Singleton Attending CHRISTOPHER Mcmahon Attending Unavailable TJ RAMIREZ Referring Unavailyaneth e Allergies Allergy Classification Reported Allergen(s) Allergy Type Date of Onset Reaction(s) Facility Acetaminophen / oxyCODONE (1 source) Acetaminophen / oxyCODONE; Translations: [acetaminophen-ox ycodone] Drug Allergy Sleep terror disorder (disorder) [facility] Anticholinergics (1 source) tiotropium; Translations: [tiotropium] Drug Allergy Pharyngeal swelling (finding), Tongue swelling (finding) [facility] Opioid Agonists (1 source) oxyCODONE; Translations: [oxycodone] Drug Allergy Sleep terror disorder (disorder) [facility] (13 sources) Acetaminophen / oxyCODONE; Translations: [acetaminophen-ox ycodone] Drug Allergy 03-31-20 16 Mental Status Change, Anaphylaxis, Sleep terror disorder (disorder) [facility] (9 sources) tiotropium; Translations: [tiotropium] Drug Allergy anaphylaxis, Pharyngeal swelling (finding), Tongue swelling (finding) [facility] (7 sources) Budesonide / formoterol Drug Allergy 03-31-20 22 Other: See Comments [facility] (20 sources) tiotropium Drug Allergy 03-31-20 [address] [facility] (20 sources) oxyCODONE; Translations: [Oxycodone] Drug Allergy 05-01-20 19 Sleep terror disorder (disorder), Anxiety [facility] (4 sources) Acetaminophen / oxyCODONE; Translations: [Percocet] Drug Allergy 08-02-20 15 [facility] (20 sources) Acetaminophen / oxyCODONE; Translations: [OXYCODONE-ACETAM INOPHEN] Drug Allergy 08-12-20 15 Anxiety, Unknown, Anaphylaxis, Hallucinations [facility] (20 sources) Budesonide-Formot fernando Fumarate Drug Allergy 08-17-20 23 Swelling [facility] Medications Current Medications Medication Drug Class(es) Dates Sig (Normalized) Sig (Original) [id number] 200 actuat albuterol 0.09 mg/actuat metered dose [...] as needed. apixaban 5 mg oral tablet (20 sources) Factor Xa Inhibitor Start: 09-26-19 End: 05-12-20 take 5 mg by mouth twice daily Apixaban Discontinued 5 MG PO Twice daily 0 September 28, 2018 10:19am May 12, 2022 7:57am atorvastatin 20 mg oral tablet (20 sources) HMG-CoA Reductase Inhibitor Start: 07-10-20 24 take 1 tablet by mouth once daily in the morning atorvastatin (Lipitor) 20 MG tablet Indications: Mixed hyperlipidemia (CMS/HCC) TAKE 1 TABLET BY MOUTH EVERY DAY IN THE MORNING 90 tablet 1 07/10/2024 Active Start: 08-16-2023 End: 05-03-2024 take 1 tablet by mouth once daily in the morning atorvastatin (Lipitor) 20 MG tablet Indications: Mixed hyperlipidemia (CMS/HCC) TAKE 1 TABLET BY MOUTH EVERY DAY IN THE MORNING 90 tablet 1 12/14/2023 05/03/2024 Discontinued (Duplicate order) baclofen 20 mg oral tablet (2 sources) [...] 10:19am May 12, 2022 8:02am Continuous Glucose Residential Nurse (FreeStyle Toby 3 [place]) device (19 sources) Start: 05-03-2024 Continuous Glucose Residential Nurse (FreeStyle Toby 3 [place]) device Indications: Type 2 diabetes mellitus with stage 3a chronic kidney disease, with long-term current use of insulin ([facility] ([facility] , Type 2 diabetes mellitus without complications ([facility]) 1 each Daily 1 each 05/03/2024 Active Continuous Glucose Sensor (FreeStyle Toby 3 Plus Sensor) misc (4 sources) Start: 05-03-2024 End: 05-31-2024 Continuous Glucose Sensor (FreeStyle Toby 3 Plus Sensor) misc Indications: Type 2 diabetes mellitus with stage 3a chronic kidney disease, with long-term current use of insulin ([facility] ([facility] , Type 2 diabetes mellitus without complications ([facility]) 1 each Daily for 28 days 2 each 11 05/03/2024 05/31/2024 Active dapagliflozin 10 mg oral tablet (20 sources) Sodium-Glucose Cotransporter 2 Inhibitor Start: 11-25-2023 End: 05-23-2024 take 1 tablet by mouth once daily Farxiga 10 MG Indications: Type 2 diabetes mellitus with stage 3a chronic kidney disease, with long-term current use of insulin ([facility]) ([facility]) TAKE 1 TABLET BY MOUTH EVERY DAY [...] Active Start: 12-21-2023 take 1 capsule by mo uth once daily dilTIAZem CD (Cardizem CD) 240 [...] 26, 2019 1:07pm take 1 capsule by mo uth once daily, then take 1 capsule by [...] PO Twice daily January 24, 2019 12:00am ergocalciferol 1.25 mg oral capsule (5 sources) Provitamin D2 Compound Start: 10-18-2024 End: 01-16-2025 take 1 capsule by mouth every week ergocalciferol (Vitamin D-2) 1.25 MG (51893 UT) capsule Indications: Vitamin D deficiency Take 1 capsule (1.25 mg) by mouth 1 (one) time per week 12 capsule 10/18/2024 01/16/2025 Active Fluticasone-Umeclid in-Vilanter (1 source) Anticholinergic, Corticosteroid, beta2-Adrenergic Agonist Start: 09-26-2018 take 1 puff(s) by inhalation once daily Fluticasone-Umecli din-Vilanter Active 1 PUFF INHALATION Daily September 26, 2018 1:00am gabapentin 300 mg oral capsule (4 sources) Anti-epileptic Agent Start: 01-24-2019 take 300 mg by mouth twice daily Gabapentin Active 300 MG PO Twice daily January 24, 2019 12:00am Start: 09-26-2018 End: 09-28-2018 Gabapentin Discontinued Tungbrenna rojas 2018 1:00am September 28, 2018 10:17am take 1 capsule by [facility] every twenty-four hours Gabapentin 300 MG 1 capsule Orally Once a day Active glipiZIDE 5 mg oral tablet (18 sources) Sulfonylurea Start: 02-29-2024 End: 11-02-2024 take 1 tablet by mouth in the morning glipiZIDE (Glucotrol) 5 MG tablet Take 5 mg by mouth in the morning and 5 mg in the evening. Take before meals. 09/30/2024 11/02/2024 Discontinued (Discontinued by another clinician) 3 ml insulin aspart, human 100 unt/ml pen injector (8 sources) Insulin Analog Start: 08-15-2024 End: 02-11-2025 insulin aspart (NovoLOG FLEXPEN) 100 UNIT/ML pen Indications: Type 2 diabetes mellitus with diabetic autonomic (poly)neuropathy (CMS/HCC) Inject 5 Units under the skin in the morning and 5 Units at noon and 5 Units in the evening. Inject before meals. 13.5 mL 1 08/15/2024 02/11/2025 Active 3 ml insulin degludec 100 unt/ml pen injector (8 sources) Insulin Analog Start: 08-15-2024 End: 02-11-2025 inject 10 [IU] by subcutaneous injection at bedtime insulin degludec (Tresiba FlexTouch) 100 UNIT/ML injection Indications: Type 2 diabetes mellitus with diabetic autonomic (poly)neuropathy (CMS/HCC) Inject 10 Units under the skin at bedtime 9 mL 1 08/15/2024 02/11/2025 Active insulin isophane, human 70 unt/ml / insulin, regular, human 30 unt/ml injectable suspension (20 sources) Insulin Start: 11-02-2024 End: 11-02-2024 inject 8 [IU] by subcutaneous injection in the morning insulin NPH-insulin regular (NovoLIN) (70-30) 100 UNIT/ML injection Inject 8 Units under the skin in the morning and 8 Units in the evening. Inject before meals. 11/02/2024 11/02/2024 Discontinued (Discontinued by another clinician) Start: 08-01-2024 End: 01-28-2025 inject 10 [IU] [...] mellitus with diabetic autonomic (poly)neuropathy (CMS/HCC) INJECT 15 UNITS UNDER THE SKIN IN [...] 25, 2019 12:00am March 04, 2019 3:25pm End: 11-02-2024 inject 10 [IU] by subcutaneous injection in the morning insulin NPH-insulin regular (NovoLIN) (70-30) 100 UNIT/ML injection Inject 10 Units under the skin in the morning and 10 Units in the evening. Inject before meals. 11/02/2024 Discontinued (Dose adjustment) Iron (2 sources) take 1 tablet by mouth once daily Iron 240 (27 Fe) MG 1 tablet Orally Once a day Active lisinopril 10 mg oral tablet (20 sources) Angiotensin Converting Enzyme Inhibitor Start: take 0.5 tablet by mouth once daily lisinopril 10 MG tablet Indications: Primary hypertension (CMS/HCC) Take 0.5 tablets (5 mg) by mouth Daily 11/02/2024 Active Start: 11-02-2024 take 0.5 tablet by m outh once daily lisinopril 10 MG tablet Indications: Primary hypertension (CMS/HCC) Take 0.5 tablets (5 mg) by mouth Daily 11/02/2024 Active Start: 12-12-2023 End: 11-02-2024 take 1 tablet by mouth once daily lisinopril 10 MG tablet Indications: Primary hypertension (CMS/HCC) TAKE 1 TABLET BY MOUTH EVERY DAY 90 tablet 1 12/12/2023 11/02/2024 Discontinued (Dose adjustment) Start: 05-12-2022 take 10 mg by mouth [...] 1,000 mg by ruy th twice daily. metoprolol tartrate 50 mg oral tablet (20 sources) beta-Adrenergic Manuela Start: 07-10-2024 take 1 tablet by mouth every twelve hours metoprolol tartrate (Lopressor) 50 MG tablet Indications: Unspecified atrial fibrillation (CMS/HCC) , Atrial fibrillation (CMS/HCC) TAKE 1 TABLET BY MOUTH EVERY 12 HOURS 180 tablet 1 07/10/2024 Active Start: 12-21-2023 End: 05-03-2024 metoprolol tartrate (Lopress or) 50 MG tablet 180 EA, 0 Refill(s), [...] Take 50 mg by mouth twice daily. ondansetron 4 mg oral tablet (8 sources) Serotonin-3 Receptor Antagonist take 1 tablet by [...] (20 sources) Proton Pump Inhibitor Start: 02-29-20 take 1 tablet by mouth once daily [...] 24, 2019 12:00am take 1 tablet by [facility] every twenty-four hours Potassium Chloride ER 20 [...] Active trospium chloride 20 mg oral tablet (20 sources) Cholinergic Muscarinic Antagonist Start: 02-29-20 End: 05-04-20 take 1 tablet by mouth twice daily trospium 20 mg oral tablet 20 mg = 1 tab(s), Oral, BID, X 90 day(s), # 180 tab(s), Refills(s) 3, Pharmacy: [facility]/pharmacy #[id number], 155, cm, 05/09/24 9:05:00 EDT, [...] Comment on above: Take 1,000 mcg by [facility] once daily. Completed/Discontinued Medications Medication Drug Class(es) Dates Sig (Normalized) Sig (Original) Continuous Glucose Sensor (FreeStyle Toby 14 Day Sensor) misc (3 sources) Start: 04-18-2024 End: 05-03-2024 Continuous Glucose Sensor (FreeStyle Toby 14 Day Sensor) misc Indications: Type 2 diabetes mellitus without complications (CMS/HCC) 1 each by Other route Daily for 28 days 2 each 5 04/18/2024 05/03/2024 Discontinued Start: 04-18-2024 End: 05-16-2024 Continuous Glucose Sensor (F reeStyle Toby 14 Day Sensor) [facility] Indications: Type 2 diabetes mellitus without complications [...] 15 units Subcutaneous three times daily Not-Taking omeprazole 40 mg delayed release oral capsule (1 source) Proton Pump Inhibitor Start: 01-27-20 End: 05-03-20 19 take 40 mg by mouth once daily Omeprazole Discontinued 40 MG PO Daily January 26, 2019 12:00am May 03, 2019 3:37pm Problems Active Problems Problem Classification Problem Date Documented Da te Episodic/Chronic Acute and unspecified renal failure (2 sources) Injury of kidney; Translations: [Acute kidney failure, unspecified] 09-26-2018 Episodic Administrative/social admission (3 sources) Patient encounter status; Translations: [Dietary counseling and surveillance] 08-15-2024 Episodic Asthma (19 sources) Asthma; Translations: [Unspecified asthma, uncomplicated] 05-03-2024 Chronic Cardiac dysrhythmias (20 sources) Atrial fibrillation; Translations: [Unspecified atrial fibrillation] Onset: 2 05-12-2022 Chronic Chronic kidney disease (20 sources) Chronic kidney disease stage 3; Translations: [Stage 3 chronic kidney disease] Onset: 4 01-24-2019 Chronic Chronic obstructive pulmonary disease and bronchiectasis (20 sources) Chronic obstructive lung disease; Translations: [Chronic [...] Chronic Deficiency and other anemia (20 sources) Anemia due to chronic blood loss; [...] 4 Chronic Genitourinary symptoms and ill-defined conditions (20 sources) Nocturia; Translations: [Nocturia] Onset: 4 Episodic [...] and colitis, unspecified] 03-14-2019 Episodic Nutritional deficiencies (3 sources) Vitamin D deficiency; Translations: [Vitamin D deficiency, [...] Onset: 4 03-05-2024 Episodic Other endocrine disorders (3 sources) Hypoglycemia; Translations: [Hypoglycemia, unspecified] 08-15-2024 Chronic Other gastrointestinal disorders (1 source) Swallowing painful; Translations: [Dysphagia, unspecified] 05-02-2019 Episodic Other gastrointestinal disorders (1 source) Diarrhea; Translations: [Diarrhea, unspecified] 03-14-2019 Episodic Other hereditary and degenerative nervous system conditions (2 sources) Impaired cognition; Translations: [Mild cognitive impairment, so stated] Chronic Other hereditary and degenerative nervous system conditions (20 sources) Restless legs; Translations: [Restless legs syndrome] [...] [OTHER FATIGUE] Onset: 01-28-2022 Episodic Mood disorders (20 sources) Mood disorders Onset: 08-17-2023 08-17-2023 Nonspecific chest pain (4 sources) Chest pain, unspecified; Translations: [CHEST PAIN UNSPECIFIED] Onset: 12-22-2021 Episodic Other aftercare (1 source) 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 (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 insulin; Translations: [PIE ICER MACHINE CURRENT USE OF INSULIN] Onset: 01-28-2022 Episodic Other aftercare (1 source) Other pen[facility] (current) drug therapy; Translations: [OTH PIE ICER MACHINE CURRENT DRUG THERAPY] Onset: 12-24-2021 Episodic Other aftercare (1 source) [facility] (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 oral hypoglycemic drugs; Translations: [CARE HOME USE ORAL HYPOGLYCEMIC DX] Onset: 12-24-2021 Episodic Other aftercare (1 source) 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 (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 anticoagulants; Translations: [PIE ICER MACHINE CURRNT USE ANTICOAGULANTS] Onset: 12-24-2021 Episodic Other and unspecified benign neoplasm (1 source) Benign neoplasm of transverse colon; Translations: [BENIGN NEOPLASM OF TRANSVERSE COLON] Onset: 09-15-2021 Episodic Other and unspecified benign neoplasm (1 source) Benign neoplasm of sigmoid colon; Translations: [BENIGN NEOPLASM OF SIGMOID COLON] Onset: 09-15-2021 Episodic Other circulatory disease (20 sources) History of cerebrovascular accident; Translations: [Personal [...] (Bld) [Mass/Vol]Orde red By: Nalini Carrero on 10-18-2024 Glucose Blood, POC 142 mg/dL [facility] MICROALB CREAT RATIO RAN DOMon 10-14-2024 CREATININE URINE RANDOM 98.65 mg/dL 20.00 - 300.00 mg/dL [facility] Interpretation and review of laboratory results Abnormal [facility] MICROALBUM CREATININE RATIO UR 182.4 mg/g High 0.0 - 29.9 mg/g [facility] Comment on above: NO MICROALBUMINURIA 0-29 MG/G CLINICAL MICROALBUMINURIA 30-300 MG/G MACROALBUMINURIA >300 MG/G MICROALBUMIN URINE RANDOM 18 mg/dL NINF - 30.0 mg/dL [facility] Glucose (Bld) [Mass/Vol]Orde red By: Nalini Carrero on 08-15-2024 Glucose Blood, POC 249 mg/dL [facility] No Panel InformationOrdered By: Nalini Carrero on 08-15-2024 [facility] POCT glycosylated hemoglobin (Hb A1C) docked deviceon 08-15-2024 HbA1c (Bld) [Mass fraction] 7 % [facility] Office Visiton 08-04-2024 Follow-up visit [id number] Robina Ron 1950 F Date Provider Department Center 08/04/2024 [facility] Family History Problem Relation Age of Onset Pulmonary embolism Father Family Status - Relation Status Age at Father Level of Service:39055 [place] OFFICE/OUTPATIENT ESTABLISHED LOW MDM 20 MIN Normal [facility] HbA1c (Bld) [Mass fraction]o n 08-01-2024 Interpretation and review of laboratory results Abnormal [facility] - Hematology and Cell countson 08-01-2024 HbA1c (Bld) [Mass fraction] 6.6 % [facility] FACTOR V LEIDEN MUTATIONon 0 06-05-2024 Interpretation and review of laboratory results Abnormal [facility] FACTOR V LEIDEN MUTATION Comment Abnormal . 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 See Additional Clinical Information and Comments. Additional Clinical Information: Venous thromboembolism is a multifactorial disease influenced by genetic, environmental, and circumstantial risk factors. The c.1601G>A (p. Pto184Mbs) variant in the F5 gene, commonly referred [...] c.*97G>A variant and Factor V Leiden (PMID: 62390220). Additional risk factors include but are not [...] health care providers to discuss results at [phone] ([phone]). Test Details: Variant Analyzed: c.1601G>A (p. Wij617Eir), referred to as Factor V Leiden Methods/Limitations: [...] developed and its performance characteristics determined by [employer]. It has not been cleared or approved by the Food and Drug Administration. References: Gualberto S, Vika AK, Berman R, Gary WW, Justin LEAHY; [employer] Professional Practice and Guidelines Committee. Addendum: [employer] consensus statement on factor V Leiden mutation testing. Jennifer Med. 2020Nov 15. doi: 10.1038/b06847-726-90064-y. PMID: 36274507. Keira MORENO. Factor V Leiden Thrombophilia. 1998January 24 (Updated 2018 Stanley 4). In: Tray MP, Raul HH, Shahida RA, et al., editors. Rayna(Bethanie) (Internet). [place] ([place]): [facility]; 4482-8260. Available from: https://www.ncbi.nlm.nih.gov/books/FBN3568/ Kirit S, Vika AK, Jones X, Ranjan B, Malia EB, Janina P, Chetan CS; [employer] Laboratory Roller Print Tender Committee. Venous thromboembolism laboratory testing (factor V Leiden and factor II c.*97G>A), 2018 update: a technical standard of the [employer] [employer] and Genomics (ACMG). Jennifer Med. 2018 Aug;20(12):6600-2827. doi: 10.1038/[id number]-j. Epub 2017Jun 17. PMID: 79613617. [facility] REVIEWED BY Comment . [facility] Comment on above: Technical Component performed at [facility] Professional Component performed by: Wayfairs Xavi Rogers, Ph.D., [facility] Director, Molecular Genetics [address] [place] [address] [place] [address] Performed at: - [facility] [address] [place], [place] [id number] Appeals Reviewer Veteran: Fidelina Vasquez [facility], Phone: [phone] [facility] No Panel Informationon 05-18 [facility] PROTEIN C-FUNCTIONALon 05-18 PROTEIN C-FUNCTIONAL 159 % 73 - 180 % [facility] Comment on above: Performed at: [address] [id number] Appeals Reviewer Veteran: Katlyn Shabazz MD, Phone: [phone] PROTEIN S-ANTIGENon 05-18-20 24 PROTEIN S, FREE 103 % 61 - 136 % [facility] PROTEIN S, TOTAL 117 % 60 - 150 % [facility] Comment on above: This test was develo ped and its performance characteristics determined by [employer]. It has not been cleared or approved [...] Microbiology PROCEDURE: Urine Culture [R1] SOURCE: U CleanCat BODY SITE: COLLECTED DATE/TIME: 05/09/2024 09:55 EDT [...] susceptible interp, R*=Predicted resistant interp EC Antibiotic ESPERNAZA Dilutn ESPERANZA Interp Ampicillin >16 R Ampicillin/ [...] Locations R1: This test was performed at: [facility], [address] [place] [address], [address]- , , [facility] Comment on above: Performed By: #### 2 [id number] #### [facility] [address] [place] [address] Ambulatory Visit Summaryon 0 05-09-2024 Ambulatory Visit Summary Ambulatory Visit Summary ROBINA RON :1950 Visit Date:05/09/2024 Ambulatory Visit Instructions Your Diagnosis OAB (overactive bladder) Mixed incontinence Asymptomatic microscopic hematuria Nocturia Unspecified urethral stricture, female Glucosuria Proteinuria Your Care Team Attending Physician - AMALIA Shukla APRN, [place] X Primary Care Physician - SHAIKH SPARKS MD This Is Your Medications List trospium (trospium [...] Following Appointments Follow Up with Gayla BARRIENTOS, BRENDA-C, Shante X, FAM, URL When: Comments: 6 months Where: Medications What How Much When Why Instructions New trospium (trospium 20 mg oral tablet) 1 Tablets By Mouth 2 times a day OAB (overactive bladder) Duration: 90 Days Refills: 3 Pickup at [facility]/pharmacy #[id number] Unchanged atorvastatin (atorvastatin 20 mg Tab) 90 [...] physician if questions or concerns Pharmacy Information [facility]/pharmacy #[id number]: [address], [place] [id number] [phone] What How Much When Comments Stop Taking [...] insulin Unspecifie (more content not included)... Normal [facility] Reminderson 05-09-2024 Reminders Reminders From: Anushka Carroll To: EU - Administrative; Sent: 05/09/2024 10:23:22 EDT Show up: 08/13/2024 10:23:00 EST Subject: Ambulatory Reminder Due Date/Time: 10/23/2024 10:22:00 EST Reminder/Recall Patient needs scheduled with AO for a 6 month f/u, due back mid October 2024 Normal [facility] Urology Office/Clinic Noteon 05-09-2024 Urology [...] with voice recognition artificial intelligence software, specifically Itiva, Shadow Puppet and or Kula Causes. Substitutions may have occurred due to the [...] # 60 tab(s), Refills(s) 2, [id number], cm, 02/29/24 10:38:00 EDT, Height/Length Dosing, 66.5, kg, 02/29/24 10:38:00 EDT, Weight Dosing trospium, 20 mg = 1 tab(s), Oral, BID, X 90 day(s), # 180 tab(s), Refills(s) 3, [id number], cm, 05/09/24 9:05:00 EDT, Height/Length Dosing, 66.5, kg, 05/09/24 9:05:00 EDT, Weight Dosing 05121 Measure Post Void residual urine and/or bladder capacity by US- non-imaging Urine Culture Urnls Dip Stick Auto w/o Microscopy POC 81517 2. Mixed incontinence (N39.46: Mixed incontinence) UUI >>> LEW See #1 Ordered: 83243 Measure Post Void residual urine and/or bladder capacity by US- non-imaging Urine Culture Urnls Dip Stick Auto w/o Microscopy POC 52243 3. Asymptomatic microscopic hematuria (R31.21: Asymptomatic microscopic [...] Improved to 2 times per night Ordered: 46331 Measure Post Void residual urine and/or bladder capacity by US- non-imaging Urine Culture Urnls Dip Stick Auto w/o Microscopy POC 28323 5. Unspecified urethral stricture, female (N35.92: Unspecified urethral stricture, female) s/p cystoscopy/UD 01/09/2019 by ELHAM [1] Ordered: 30574 Measure Post Void residual urine and/or bladder capacity by US- non-imaging Urine Culture Urnls Dip Stick Auto w/o Microscopy POC 60154 6. Glucosuria (R81: Glycosuria) 3+ on UA [...] CVA (cerebrovascular (more content not included)... Normal [facility] Comment on above: Result Comment: Elec tronically Signed By: AMALIA Shukla APRN, Shante Bonilla\.br\Date and Time Signed: 05/09/24 10:01 EDT ALL CBC WITH AUTO DIFFon BASOPHILS ABSOLUTE AUTO 0.0 [facility] Basophils/100 WBC (Bld) 0.3 % 0.2 - 2.0 % [facility] Eosinophils/100 WBC (Bld) 1.2 % 0.9 - 7.0 % [facility] Erythrocyte distribution width (RBC) [Ratio] 14.1 % 11.0 - 15.0 % [facility] Hematocrit (Bld) [Volume fraction] 42.8 % 36.0 - 48.0 % [facility] Hemoglobin (Bld) [Mass/Vol] 14.1 g/dL 12.0 - 16.0 g/dL [facility] IMMATURE GRANULOCYTES ABS AUTO 0.07 High [facility] Immature granulocytes/100 WBC (Bld) 0.6 % High 0.0 - 0.5 % [facility] Interpretation and review of laboratory results Abnormal [facility] LYMPHOCYTES ABSOLUTE AUTO 3.0 [facility] Lymphocytes/100 WBC (Bld) 26.4 % 20.5 - 60.0 % [facility] MCH (RBC) [Entitic mass] 30.0 pg 26.7 - 34.0 pg [facility] MCHC (RBC) [Mass/Vol] 32.9 g/dL 29.9 - 35.2 g/dL [facility] MCV (RBC) [Entitic vol] 91.1 fL 81.0 - 99.0 fL [facility] MONOCYTES ABSOLUTE AUTO 0.7 [facility] Monocytes/100 WBC (Bld) 5.7 % 1.7 - 12.0 % [facility] NEUTROPHILS ABSOLUTE AUTO 7.6 High [facility] Neutrophils/100 WBC (Bld) 65.8 % 43.0 - 75.0 % [facility] Platelet mean volume (Bld) [Entitic vol] 8.0 fL Low 9.5 - 13.5 fL [facility] EO # 0.1 [facility] PLT 167 [facility] RBC 4.70 [facility] WBC 11.5 High [facility] Office Visiton 05-08-2024 Follow-up visit [id number] AriadneRobina Ivette 1950 Date Provider Department Center 05/08/2024 EDD VAZQUEZ Family History Problem Relation Age of Onset Pulmonary embolism Father Family Status - Relation Status Age at Father Level of Service:58940 [place] OFFICE/OUTPATIENT ESTABLISHED LOW MDM 20 MIN [facility] 36on 04-11-[address] Wade reviewed patient's echo from 04/05/2024 and said it was ok. Spoke with patient and made her aware. She was unable to schedule Oct follow up because she didn't have her son's schedule with her. I advised she would get a phone call in May to schedule an apt for Oct. She verbalized understanding. Normal [facility] Office Visiton 03-14-2024 Follow-up visit [id number] Robina Ron Ivette 1950 Date Provider Department Center 03/14/2024 EDD VAZQUEZ Family History Problem Relation Age of Onset Pulmonary embolism Father Family Status - Relation Status Age at Father Level of Service:98653 [place] OFFICE/OUTPATIENT ESTABLISHED MOD MDM 30 MIN Normal [facility] Coding Summary.on 03-07-2024 Coding Summary. VPDSImfq61YGt2hXq+PG h lYWQ+SW1POTRrZ92lxTSs bP7vL6HANDbAGtzdLKPDC IxDNtXmpyZbAD8cuCIyDY Ju IC8+FX9wWOXoWrgueRUlu 5T2sHN7O45gkq0uDMuvhH R3UNBkPbJzynros1iwnPm 6IDcuNmluOyBt WYCbjK10HUR1oK28Uy60x JZdgVSnz9aoiDa1KgIuGO NtARO7dXaqQYqqh5HpAYA sN13fvZXev5C2 ZFPslCkqcQZrMjAikUY9m L3bNLnostmor8ljhvwgDe v7oc25wDFcp2E4vVY8O4V ieoK7QOMgsRVy EuyvbNCNpL0zymezw1boq fjuJzWeSSPqPTh2YUv3NM CtsYpaAuIbMR75VLM6JWM rmaTeC1YjHLRf yPbgXlX2s1I0Cc5MD6RKW vvbM6CCTGQYWYufxUM+PC 95fr25K7KhXqphZcl6YHT uULI6oVV4bJ8v GFCoVUjmv4A7iLJ1M1Xur oIjrj8fr0rfDEEzNVnkR7 6koGOyd1Y5BYIayHK7ZKG hbCocZaJvgH21 Oyc+HLOhlMsat7DuOetbo 1qgb9crmRf8QjslEBDjsg QgtXxnYHB1o7GfVu4cXGB bkTA7hUV9wN6g NmBuBcJ7WVndW447ItSxj QZbEsecF33gE8HtsWP+PH PgHys7KNSkdRdpWN3lB0F hZGRpbmctbGVm sLkzLR9tZREdeephQNTxh O4vPLOlN4s3GzTiTwI8SB pqQ1QdWIIuaihlVw87gE3 aUySjKyQ8LJpd Z4MqveZ1CMZszNEbEHxhE KB5Q16re4H8EKYiWXFrXW G9iHR7oC9mlHyyymnbwPG mdDsgdmVydGlj AAcwNYbtF315QXTblTpsV kNvZGluZyBEYXRlOiAgMD YvMjUvMjAyNDwvdGQ+PHR cRJQ6uPaaYAYt eJNtJXxzCx5neFghjZgcL K2bPGYyxopwEOFzpM5cMK BweWLwfAgyCD9wOLWkdry cp181GqJtGWH8 LJXqxOJjO9EcaW2fGpFlY GSdWYWaT3OoyAJcVZbbE6 61OGitOdT4RJRrmqZzC5Q sLWFsaWduOiB0 t5H8Xq1Vc0LgfcjuT5Xqs CRdAgJkShgwCPk5B7RsKc wvdHI+ZO64XNBcLD83JXa 7WQV3fUqeIIvk HCFjS5NmgO0eZeMeZJNiU GRkOyc+PHRhYmxlIHdpZH RoPScxMDAlJyBzdHlsZT0 cBa5wZMBpXVLh iSoefCDwQhHet2riNVNtF JrgUF8pyBovS2RusDF0WW Kwq5g0Sz22Q38bA8TcaHP +BAIduAM7vWT6 gX1cZhMkWbS8VEpxS172S xJydKMpPmcjq0elt3kqaW w7NxT1MQLtshNckXbtXEN 8e7CcGw87F61u IHdpZHRoPSIxNSUiIHZhb Pnnsy1prW5tCe2+PGNvbC G2wXL2pR4eRtTfLiA2RSt gY300UxExoZUz Krfrl7hnr6yalUu8FgBiX ZGgbiPdzWajDSP6s3SuHq 88A3NbjNrmh3YyUtt2ej2 6mMIfl7R6vNZ3 C7WuRKTkteqlfKZssAkgD T3kLXNhgtyxAUSkhB9yGM AyN9s7MjHnXlU2BDcxW7E rsuH2KUKjtLFo NAOvcTOYuE5xwngas3ivn rbiGxAnWRYsBIn9PYy5GD RulRkgDwLcZPM8QqT2RAA 3mOGrdZ7lzEyk sopjiJ0nMsm+CQN8iBTtf XKDPJ5jEahanNE+PHRkIH U4wKtiZLwmMFVhrL1aNAQ uC3m2BmZxDcV1 OPaxC8HwyvA8FVVddSImV WDsdPAPsN9bdjaou2pytx zpYsTrICLhWPf0RXi1QIZ saWduOiBsZWZ0 UzH2QXB6zRIaoT8vfNwnj lbjgL3iVyu+QmlydGggRG O5HZq2G8DuMiq8RWFyuBp uGQ8daDNpEAow Xj6luKsuxFxmKS1pDKIgy ftqz556BmKyu6jxKJPonX IhJNgkHLK1V05bm5K7YCV pHQYzRNP9gBC0 cW8vfWelevcssCHfuHlvw oYbwVnkAOdpDYwpH965GP YirVskMuSoDXw2D9AzRyy 7JLLsnLmjAD8s jPQsRUnePo0jvXvqbDskY N0rTYJoupyqc736BeJha1 dwFRJrfVLaWZhjTFS6E69 yb5W1SWYkUKNk COQ4mND1uV3zgGitelrvu GVmdDsgdmVydGljYWwtYW xcZ587MRSwlTcdKiHtdPo 0M8OgQof7AXTi jUfeDM3xeFQtLBarHq9wh NtjiStmPN2tWVEzfqmln5 07RrMvw2joXMYqwLDyMQu qFZC3D06wj9H8 UIBxNCHxZUS7uLY0gM7bo GlnbjogbGVmdDsgdmVydG nuSDosKDcoA824CWXkrIp nPlBhdGllbnQg JBliGPe5S0ExGlzveIK+P C86WLIhQR70sXZwqNGml0 oozYa2FdDgRULrXGB8gVj nXYuvi6TcMWSk A79nkXYoh5K4IJQjwUyvd IRfXvAkfSD1hJ9yYNekex clb5ordycgNwnkj8cnij6 5wE98B57cIJxm ZHRoPSIzMCUiIHZhbGlnb o1xyT1xSs5+QJRucKQ5wF R3rK5xGMSnHbR0FMwaF19 9InRvcCIvPjxj z6fyu9mybLy6ZmU4CQPog eIemDugBBU8k7GjJl26O9 9sIHdpZHRoPSIyMCUiIHZ ajWxfks8gqB2a Ii8+TAPifUR3xTB8uL9uC pLrVfJ8LCznM624HtFvkV EmUsikH44hE1KtzYB+PHR uZuc9YQCvnVdg KK8wkUYuFItvWn7rPPL5Z oYsKlHxCDxlU5RgOENlip kzhnhazEA7QUCsNMIqcB4 9Co7dsKtaWLQo hWWGuO9byvxxj7thjmhuZ gPsRNEnIQf9SAj5CAElwS zcEmVnEEQ9RcQ6WFT8lHQ biD8iiMlkixvr rW6xD2RlFJSfmppzVq94x J0lOvAvGzU7XEghFgi+TE FYQYjrX9CUDImQIC6wZCo vdGQ+PHRkIHN0 nYdmGSsaLMQztZ0cBLBmS 0i5HfTnXtP7JYnwN8VfIN PwatcoIw05xY2eMaJfTnE 3CRtuA0AcjcI2 FYDguMMtERrrJBX1Z37sk 1B7VKKvGSAfIYY9zJD9pV 1hbGlnbjogbGVmdDsgdmV ydGljYWwtYWxp S993ABPbrMjmHxPkUnQnX wQ0RHM3P8WtOmo9IGTyaC grDH8dbLAfABgvSm1cvQm haIvuYX7tDPEt wqnkUSWcmB9lKBIeyHLmq ZgnXT9zASQhsatcx631Jn WrTWB2TVIzaEOpD9EarQ6 yOiAjMDAwMDAw O8PfjJYdXYgkH219ADwgO sB4BPWtggKvP3SdJCWqvT hsSvA9r9U7Wy16DbKKBEH yczwvdGQ+PHRk JKF6uNtyESwoSOApeS6iV NCwL9r0ExUlZdE4QOdwE7 FePBUdanqeAn96bB1mMvR dGdO5YXdnK6Uh osE3MIEqsWJqBKtxMSS3L 36yy6C1JZZrSWBlIZC4eD L0hK7bqXheqdyicAOajMd gdmVydGljYWwt LTnqL897RKPhcPvsJjIow WFsZTwvdGQ+RGMbAJD3cW jyJKxmJKUwmT9gCXRwM7v 4KuYrYdE4KOat E6CzZDEuptlfMd25qZ9pD hUbBpT8RZpdQ3EqspQ6CI OjsALtOChaYIM8O55mj2W 8KGFoWEDqLWK6 rEI7fU5tcIvzypzleVUxx DsgdmVydGljYWwtYWxpZ2 76DSYupRxnNagzIyWFis8 yLW0iUpaudVU+ FY40yx16J1MgDvmkPlq1W YDfKCS4lYM4uY0vDKGmNK wmu3A9oNN0J6UxtbAflx0 sd5mfYLCdEHlx I30pxPDrc4C9SICatUT6Y ZOfwMfeJmXjtX65Vgj+PG TteTpwk3TfSokgq2viy7l guUa9LrKnQBPw tzXtlIzqWYE6j2AgJv56C 29sIHdpZHRoPSIzMCUiIH DxrRoand6zkE3mGo1+PGN yoJD5rZM5zG4a VfAoAsV9XWmxK068CiCuc GXiSivyv5hrt1bzwPs4Tj UaVCVsowKssBbnBBH4x4R iZa10D9WoxRyr a1KkGeo7so60fBDyx7L2k PZ2I1IgEOZiwwgooGNmyD bvLD2cWEDbjacuWBElzK3 wJXKzI5s0GmDf HvP6ZDhsM3YlgnT9YHGpc AVlQWTawRVWtK0npymnw0 ykdkxeAfJlZVLpBIh8ZMy 0LWFsaWduOiBs APZ3OsY4ALN0tJZqsT1pj WezferzaK3pQbm+UGh5c2 xkpCXxDR4fdJO5CT65MX9 1rWQgb0T4sTU8 X8CqUWLsseqgvyfqfQL9E LXcGTXipU00At8osFjbYu 7xISEmVSY6AXEnmBVpQ1S iiI0iVxQlGVVs GWYiZ6RtaQXyTVltR828T TcwTsK4EOCirsXpG4KcZC YlcFjiKlM7b1Y9Lc8ENC9 9ON94DH91pRSm t2A3gBQ9P4IoTJHavbjli ddwzJJ6SXRnERTchG06Mv 5bxZdlDv1iNFBeMSY6RVR wqUEhA2WgwI8k RsLpVNBmITJxK3VntOSsK FblU017VYzhAfD1SGAimv VuP5VaKWAtlAokDeS8o3L 1Ue2XFd22JD65 VV03fDLed5O6lEX8S4IaQ HIrgjdzsfclcJW2TAUsTP TpyT23Fu1saTfpLp7fILV wLOV8URLduXHw D6TguI2aYtAlUIEfIMEpF 3LtcVQuGSujU078FDsyCo E1BQGjhoIgD5WlKKEscZz oMzZ3l8K0Do5H KEtcuvo3P1ZjAikpbFZ+P P18AJNzOQ45uJWrsZAne1 khqMi0QaClSDBbIAN5aBs rAGgto1YfBZOm W86owWFzo0J0P (more content not included)... Normal [facility] Patient Educationon 03-05-20 Patient Education Obstetrics and [...] health care provider. General instructions ? Take fxrl-qwe-akseoyk and prescription medicines only as told by [...] monitor yo (more content not included)... Normal [facility] C Urineon 03-02-2024 Bacteria identified Cx Nom (U) Microbiology PROCEDURE: Urine Culture [R1] SOURCE: U Random BODY SITE: COLLECTED DATE/TIME: 02/29/2024 11:27 EDT RECEIVED DATE/TIME: 02/29/2024 18:25 EDT START DATE/TIME: 02/29/2024 18:25 EDT FREE TEXT SOURCE: AMALIA Shukla APRN, AMALIA Shukla APRN, Shante X Shante X FINAL REPORTS Final [...] Locations R1: This test was performed at: [facility], [address] [place] [address], [facility]- , , [facility] Comment on above: Performed By: #### 2 [id number] #### [facility] [address] [place] [address] Physician Referralon 024 Physician Referral [id number]#1. 00TIFF [facility] Screenson 03-01-2024 Screens [id number]# 1.00TIFF [facility] Ambulatory Visit Summaryon 0 02-29-2024 Ambulatory Visit Summary ROBINA RON :1950 Visit Date:02/29/2024 Ambulatory Visit Instructions Your Diagnosis OAB (overactive bladder) Your Care Team Attending Physician - Orzech HEALTHCARE APPLICATIONS ANALYST, ROPE TWISTING MACHINE OPERATOR-C, Shante X Primary Care Physician - SHAIKH SPARKS MD [...] for choosing us for your care. Normal [facility] GLYCOHEMOGLOBIN A1Con 2021 ADA RECOMMENDATION SEE BELOW Normal [facility] Comment on above: Result Comment: ADA RECOMMENDED LIMIT 4.0 - 6.0 ADA THERAPEUTIC TARGET < 7.0 ACTION SUGGESTED > 7.0 Performed By: #### A 1C #### [facility] [address] [place] [address] Dr. Julisa Lowe Glucose [Mass/Vol] 235 mg/dL Normal [facility] Comment on above: Performed By: #### A 1C #### [facility] [address] [place] [address] Dr. Julisa Lowe HbA1c (Bld) [Mass fraction] 9.8 % Critically high 4.5-6.2 [facility] Comment on above: Performed By: #### A 1C #### [facility] [address] [place] [address] Dr. Julisa Lowe PROF CHEM 8 (BAS METB)on Anion gap [Moles/Vol] 17.7 mmol/L Normal [facility] Comment on above: Performed By: #### B MP #### [facility] [address] [place] [address] Dr. Julisa Lowe Calcium [Mass/Vol] 9.3 mg/dL Normal 8.5-10.1 [facility] Comment on above: Performed By: #### B MP #### [facility] [address] [place] [address] Dr. Julisa Lowe Chloride [Moles/Vol] 107 mmol/L Normal 98-107 [facility] Comment on above: Performed By: #### B MP #### [facility] [address] [place] [address] Dr. Julisa Lowe CO2 [Moles/Vol] 24.3 mmol/L Normal 21.0-32.0 [facility] Comment on above: Performed By: #### B MP #### [facility] [address] [place] [address] Dr. Julisa Lowe Creatinine [Mass/Vol] 0.90 mg/dL Normal 0.55-1.02 [facility] Comment on above: Performed By: #### B MP #### [facility] [address] [place] [address] Dr. Julisa Lowe EGFR-AF LIBYAN >60 Normal >=60 [facility] Comment on above: Performed By: #### B MP #### [facility] [address] [address] [address] Julisa Lowe EGFR-NON AF LIBYAN >60 Normal >=60 [facility] Comment on above: Performed By: #### B MP #### [facility] [address] [address] [address] Julisa Lowe Glucose [Mass/Vol] 196 mg/dL Critically high 74-106 [facility] Comment on above: Performed By: #### B MP #### [facility] [address] [address] [address] Julisa Lowe Potassium [Moles/Vol] 5.0 mmol/L Normal 3.5-5.1 [facility] Comment on above: Performed By: #### B MP #### [facility] [address] [address] [address] Julisa Lowe Sodium [Moles/Vol] 144 mmol/L Normal 136-145 [facility] Comment on above: Performed By: #### B MP #### [facility] [address] [address] [address] Julisa Lowe Urea nitrogen [Mass/Vol] 33.0 mg/dL Critically high 7.0-18.0 [facility] Comment on above: Performed By: #### B MP #### [facility] [address] [address] [address] Julisa Lowe Urea nitrogen/Creatinine [Mass ratio] 36.7 mg/mg Normal [facility] Comment on above: Performed By: #### B MP #### [facility] [address] [address] [address] Julisa Lowe Basophils Auto (Bld) [#/Vol] Ordered By: Hood Patel on 05-12-2022 Basophils (Bld) [#/Vol] 0.1 10*3/uL 0.0-0.2 [facility] Basophils/100 WBC Auto (Bld) Ordered By: Hood Patel on 05-12-2022 Basophils/100 WBC (Bld) 0.7 % . [facility] Blood hemoglobin measurement (mass/volume)Ordered By: Hood Patel on 05-12-2022 Hemoglobin (Bld) [Mass/Vol] 11.8 g/dL 11.8-15.4 [facility] Blood leukocytes automated c ount (number/volume)Ordered By: Hood Patel on 05-12-2022 WBC (Bld) [#/Vol] 7.6 10*3/uL 4.5-11.[address] [facility] [address] biopsyOrdered By: Merna Patel on 05-12-2022 Transferrin [Mass/Vol] 206 mg/dL 180-380 [facility] Complete Blood Count Auto Di ffon 05-12-2022 Basophils (Bld) [#/Vol] 0.1 10*3/uL Normal 0.0-0.2 [facility] Comment on above: Result Comment: PERF ORMED BY: [place] [id number] PATHOLOGIST BLUING OVEN TENDER JENY DODGE M.D. Performed By: #### F E and TIBC, KATHY, [id number], CBC #### [facility] [address] Basophils/100 WBC (Bld) 0.7 % Normal . [facility] Comment on above: Performed By: #### F E and TIBC, KATHY, [id number], CBC #### [facility] [address] Eosinophils (Bld) [#/Vol] 0.1 10*3/uL Normal 0.0-0.45 [facility] Comment on above: Performed By: #### F E and TIBC, KATHY, [id number], CBC #### [facility] [address] Eosinophils/100 WBC (Bld) 1.6 % Normal . [facility] Comment on above: Performed By: #### F E and TIBC, KATHY, [id number], CBC #### [facility] [address] Erythrocyte distribution width (RBC) [Ratio] 27.8 % High 11.9-15.3 [facility] Comment on above: Performed By: #### F E and TIBC, KATHY, [id number], CBC #### [address] Hematocrit (Bld) [Volume fraction] 37.5 % Normal 34.0-46.4 [facility] Comment on above: Performed By: #### F E and TIBC, KATHY, [id number], CBC #### [address] Hemoglobin (Bld) [Mass/Vol] 11.8 g/dL Normal 11.8-15.4 [facility] Comment on above: Performed By: #### F E and TIBC, KATHY, [id number], CBC #### [address] Lymphocytes (Bld) [#/Vol] 2.4 10*3/uL Normal 1.00-4.8 [facility] Comment on above: Performed By: #### F E and TIBC, KATHY, [id number], CBC #### [address] Lymphocytes/100 WBC (Bld) 32.0 % Normal . [facility] Comment on above: Performed By: #### F E and TIBC, KATHY, [id number], CBC #### [address] MCH (RBC) [Entitic mass] 24.2 pg Low 24.7-34.3 [facility] Comment on above: Performed By: #### F E and TIBC, KATHY, [id number], CBC #### [address] MCV (RBC) [Entitic vol] 76.9 fL Low 80-100 [facility] Comment on above: Performed By: #### F E and TIBC, KATHY, [id number], CBC #### [address] Mean Corpuscular HGB Conc 31.4 g/dL Low 32.0-35.0 [facility] Comment on above: Performed By: #### F E and TIBC, KATHY, [id number], CBC #### [facility] [address] Monocytes (Bld) [#/Vol] 0.4 10*3/uL Normal 0.0-0.8 [facility] Comment on above: Performed By: #### F E and TIBC, KATHY, [id number], CBC #### [facility] [address] Monocytes/100 WBC (Bld) 5.8 % Normal . [facility] Comment on above: Performed By: #### F E and TIBC, KATHY, [id number], CBC #### [address] Neutrophils (Bld) [#/Vol] 4.6 10*3/uL Normal 1.8-7.7 [facility] Comment on above: Performed By: #### F E and TIBC, KATHY, [id number], CBC #### [address] Neutrophils/100 WBC (Bld) 59.9 % Normal . [facility] Comment on above: Performed By: #### F E and TIBC, KATHY, [id number], CBC #### [place] [address] [place] Nucleated RBC/100 WBC (Bld) [Ratio] 0.2 % Normal 0-0.5 [facility] Comment on above: Performed By: #### F E and TIBC, KATHY, [id number], CBC #### [address] Platelet mean volume (Bld) [Entitic vol] 6.5 fL Normal 6.3-10.7 [facility] Comment on above: Performed By: #### F E and TIBC, KATHY, [id number], CBC #### [facility] [address] Platelets (Bld) [#/Vol] 231 10*3/uL Normal 150-450 [facility] Comment on above: Performed By: #### F E and TIBC, KATHY, [id number], CBC #### [facility] [address] RBC (Bld) [#/Vol] 4.88 10*6/uL Normal 3.60-5.00 [facility] Comment on above: Performed By: #### F E and TIBC, KATHY, [id number], CBC #### [facility] [address] WBC (Bld) [#/Vol] 7.6 10*3/uL Normal 4.5-11.0 [facility] Comment on above: Performed By: #### F E and TIBC, KATHY, [id number], CBC #### [facility] [address] Eosinophils Auto (Bld) [#/Vo l]Ordered By: Hood Patel on 05-12-2022 Eosinophils (Bld) [#/Vol] 0.1 10*3/uL 0.0-0.45 [facility] Eosinophils/100 WBC Auto (Bl d)Ordered By: Hood Patel on 05-12-2022 Eosinophils/100 WBC (Bld) 1.6 % . [facility] Erythrocyte distribution wid th Auto (RBC) [Ratio]Ordered By: Hood Patel on 05-12-2022 Erythrocyte distribution width (RBC) [Ratio] 27.8 % 11.9-15.3 [facility] Ferritinon 05-12-2022 Ferritin [Mass/Vol] 218.6 ng/mL Normal 11-306.8 [facility] Comment on above: Performed By: #### F E and TIBC, KATHY, [id number], CBC #### [facility] [address] Ferritin [Mass/volume] in Se rum or PlasmaOrdered By: Hood Patel on 05-12-2022 Ferritin [Mass/Vol] 218.6 ng/mL 11-306.8 [facility] Folate [Mass/volume] in Seru m or PlasmaOrdered By: Hood Patel on 05-12-2022 Folate [Mass/Vol] 7.9 ng/mL >5.9 [facility] Comment on above: Folate reference ran ge: >5.9 ng/ml The WHO technical consultation on folate and vitamin b12 deficiencies has determined that folate concentrations less than 4 ng/ml are considered deficient. Glucose Glucometer (BldC) [M ass/Vol]Ordered By: Hood Patel on 05-12-2022 Glucose [Mass/Vol] 426 mg/dL [facility] Comment on above: Random Glucose Refer ence Range is dependent on time and content of last meal. Glucose of more than 200 mg/dL in a nonstressed, ambulatory subject supports the diagnosis of Diabetes Mellitus. Glucose Poct Glucometerson 0 05-12-2022 Commemt1 Normal [facility] Comment on above: Result Comment: Glu2 : Result Not Confirmed PERFORMED BY: [facility] [address] [place] [address] PATHOLOGIST [employer] JENY DODGE M.D. Performed By: #### G LULS #### Point of Care testing , Glucose [Mass/Vol] 426 mg/dL Off scale [facility] Comment on above: Result Comment: [place] Glucose Reference Range is dependent on time and content of last meal. Glucose of more than 200 mg/dL in a nonstressed, ambulatory subject supports the diagnosis of Diabetes Mellitus. Performed By: #### G LULS #### Point of Care testing , Hematocrit Auto (Bld) [Volum e fraction]Ordered By: Hood Patel on 05-12-2022 Hematocrit (Bld) [Volume fraction] 37.5 % 34.0-46.4 [facility] Iron [Mass/volume] in Serum or PlasmaOrdered By: Hood Patel on 05-12-2022 Iron [Mass/Vol] 48 ug/dL 40-150 [facility] Iron and TIBC Profileon 08- 0 % Iron Saturation 16.0 % Low 20-50 [facility] Comment on above: Performed By: #### F E and TIBC, KATHY, [id number], CBC #### [facility] [address] Iron [Mass/Vol] 48 ug/dL Normal 40-150 [facility] Comment on above: Performed By: #### F E and TIBC, KATHY, [id number], CBC #### [facility] [address] Total Iron Binding Capacity 288 ug/dL Normal 255-450 [facility] Comment on above: Performed By: #### F E and TIBC, KATHY, [id number], CBC #### [address] Transferrin [Mass/Vol] 206 mg/dL Normal 180-380 [facility] Comment on above: Performed By: #### F E and TIBC, KATHY, [id number], CBC #### [address] Iron binding capacity [Mass/ volume] in Serum or PlasmaOrdered By: Hood Patel on 05-12-2022 Iron binding capacity [Mass/Vol] 288 ug/dL 255-450 [facility] Iron saturation [Mass Fracti on] in Serum or PlasmaOrdered By: Hood Patel on 05-12-2022 Iron saturation [Mass fraction] 16.0 % 20-50 [facility] [place] 05-12-2022 L - -------- Specimen: [id number] Received: 05/12/22 Status: CORRY Chopra Num: [id number] Spec Type: Surgical Subm Dr: Hood Patel MD Tissues: A Duodenum - Biopsy (DUODENAL BX) Procedures: HE Stain/2, Gross/Micro L4 -------- Age/ Patient Sex Location Account Attending Physician -------- Robina Ron 71/F [id number] Hood Patel MD -------- SPEC NUM: [id number] RECD: 05/12/22 STATUS: CORRY CHOPRA NUM: [id number] PROSPER: 05/12/[address] [facility] [address]: Hood Patel MD ENTERED: 05/12/[address] [facility] [address]: VELASQUEZ TYPE: Surgical DEPT: S ORDERED: [...] microscopic findings support the above pathologic diagnosis. [id number] -------- -------- Specimen: [id number] Received: 05/12/22 Status: CORRY Chopra Num: [id number] Spec Type: Surgical Subm Dr: Hood Patel MD Tissues: A Duodenum - Biopsy (DUODENAL BX) Procedures: HE Stain/2, Gross/Micro L4 -------- Patient: Robina Ron [id number] (Continued) -------- Signed (signature on file) Jeny Dodge MD 05/13/22 1656 Normal [facility] Laboratory - Chemistry and C hemistry - challengeOrdered By: Hood Patel on 05-12-2022 Cobalamin (Vitamin B12) [Mass/Vol] 277 pg/mL 180-914 [facility] Laboratory - Hematology and Cell countsOrdered By: Hood Patel on 05-12-2022 Nucleated RBC/100 WBC (Bld) [Ratio] 0.2 % 0-0.5 [facility] Lymphocytes Auto (Bld) [#/Vo l]Ordered By: Hood Patel on 05-12-2022 Lymphocytes (Bld) [#/Vol] 2.4 10*3/uL 1.00-4.8 [facility] Lymphocytes/100 WBC Auto (Bl d)Ordered By: Hood Patel on 05-12-2022 Lymphocytes/100 WBC (Bld) 32.0 % . [facility] MCH Auto (RBC) [Entitic mass ]Ordered By: Hood Patel on 05-12-2022 MCH (RBC) [Entitic mass] 24.2 pg 24.7-34.3 [facility] MCHC Auto (RBC) [Mass/Vol]Or dered By: Hood Patel on 05-12-2022 MCHC (RBC) [Mass/Vol] 31.4 g/dL 32.0-35.0 [facility] MCV Auto (RBC) [Entitic vol] Ordered By: Hood Patel on 05-12-2022 MCV (RBC) [Entitic vol] 76.9 fL 80-100 [facility] Monocytes Auto (Bld) [#/Vol] Ordered By: Hood Patel on 05-12-2022 Monocytes (Bld) [#/Vol] 0.4 10*3/uL 0.0-0.8 [facility] Monocytes/100 WBC Auto (Bld) Ordered By: Hood Patel on 05-12-2022 Monocytes/100 WBC (Bld) 5.8 % . [facility] [facility] Neutrophils Auto (Bld) [#/Vo l]Ordered By: Hood Patel on 05-12-2022 Neutrophils (Bld) [#/Vol] 4.6 10*3/uL 1.8-7.7 [facility] Neutrophils/100 WBC Auto (Bl d)Ordered By: Hood Patel on 05-12-2022 Neutrophils/100 WBC (Bld) 59.9 % . [facility] No Panel InformationOrdered By: Hood Patel on 05-12-2022 Bedside Glucose Comment See comment [facility] Comment on above: Glu2: Result Not Con firmed Platelet mean volume Auto (B ld) [Entitic vol]Ordered By: Hood Patle on 05-12-2022 Platelet mean volume (Bld) [Entitic vol] 6.5 fL 6.3-10.7 [facility] Platelets Auto (Bld) [#/Vol] Ordered By: Hood Patel on 05-12-2022 Platelets (Bld) [#/Vol] 231 10*3/uL 150-450 [facility] RBC Auto (Bld) [#/Vol]Ordere d By: Hood Patel on 05-12-2022 RBC (Bld) [#/Vol] 4.88 10*6/uL 3.60-5.00 [facility] Vit. B12/Folate Profileon Cobalamin (Vitamin B12) [Mass/Vol] 277 pg/mL Normal 180-914 [facility] Comment on above: Performed By: #### F E and TIBC, KATHY, [id number], CBC #### [facility] [address] Folate 7.9 ng/mL Normal >5.9 [facility] Comment on above: Result Comment: Katelyn te reference range: >5.9 ng/ml The WHO technical consultation on folate and vitamin b12 deficiencies has determined that folate concentrations less than 4 ng/ml are considered deficient. PERFORMED BY: [place] [address] PATHOLOGIST [employer] JENY DODGE M.D. Performed By: #### F E and TIBC, KATHY, [id number], CBC #### [facility] [address] [place] [address] [place] COVID-19 FRMCon 05-07-2022 SARS-CoV-2 (COVID-19) RNA CHALINO+probe Ql (Unsp spec) Negative Normal Negative [facility] Comment on above: Order Comment: Healt hcare Worker?: N Result Comment: Testing for SARS-CoV-2 by RT-PCR This test was developed and its performance characteristics determined by [employer] ([employer]) and validated at the [facility]. This test has not been [...] is terminated or revoked sooner. PERFORMED BY: [place] [address] PATHOLOGIST [employer]ING [employer] TENDER JENY DODGE M.D. Performed By: #### C OVID 19 [facility] #### [address] COVID-19 Positive/NegativeOr dered By: Hood Patel on 05-07-2022 SARS-CoV-2 (COVID-19) N gene CHALINO+probe Ql (Resp) Negative Negative [facility] Comment on above: Testing for SARS-CoV -2 by RT-PCR This test was developed and its performance characteristics determined by [employer]) and validated at the [facility]. This test has not been [...] Basophils (Bld) [#/Vol] 0.03 10*3/uL Normal <0.11 [facility] Comment on above: Order Comment: Speci men Type: BLOOD SPECIMEN Ordering Facility: [facility] Address: [address] [place] [address] Performed By: #### 5 7021-8, 10635-0 #### [facility] CLIA [id number] [address] [place] [address] 51313 Basophils/100 WBC (Bld) 0.3 % Normal [facility] Comment on above: Order Comment: Speci nikky Type: BLOOD SPECIMEN Ordering Facility: [facility] Address: [address] [place] [address] Performed By: #### 5 7021-8, 95948-9 #### [facility] CLIA [id number] [address] [place] [address] 24328 Differential cell count method Nom (Bld) Auto Normal [facility] Comment on above: Order Comment: Speci men Type: BLOOD SPECIMEN Ordering Facility: [facility] Address: [address] [place] [address] Performed By: #### 5 7021-8, 56022-5 #### [facility] CLIA [id number] [address] [place] [address] 75648 Eosinophils (Bld) [#/Vol] 0.09 10*3/uL Normal <0.46 [facility] Comment on above: Order Comment: Speci men Type: BLOOD SPECIMEN Ordering Facility: [facility] Address: [address] Performed By: #### 5 7021-8, 40962-3 #### [facility] CLIA [id number] [address] [place] [address] 89753 Eosinophils/100 WBC (Bld) 1.0 % Normal [facility] Comment on above: Order Comment: Speci men Type: BLOOD SPECIMEN Ordering Facility: [facility] Address: [address] [place] [address] Performed By: #### 5 7021-8, 86004-9 #### [facility] CLIA [id number] [address] [place] [address] 25385 Erythrocyte distribution width (RBC) [Ratio] 20.4 % High 11.5-15.0 [facility] Comment on above: Order Comment: Speci men Type: BLOOD SPECIMEN Ordering Facility: [facility] Address: [address] [place] [address] Performed By: #### 5 7021-8, 27755-9 #### [facility] CLIA [id number] [address] [place] [address] 66328 Hematocrit (Bld) [Volume fraction] 33.1 % Low 36.0-46.0 [facility] Comment on above: Order Comment: Speci men Type: BLOOD SPECIMEN Ordering Facility: [facility] Address: [address] [place], [place] [address] Performed By: #### 5 7021-8, 60037-1 #### [facility] CLIA [id number] [address] [place] [address] 90248 Hemoglobin (Bld) [Mass/Vol] 9.3 g/dL Low 11.5-15.5 [facility] Comment on above: Order Comment: Speci men Type: BLOOD SPECIMEN Ordering Facility: [facility] Address: [address] [place] [address] Performed By: #### 5 7021-8, 26086-1 #### [facility] CLIA [id number] [address] [place] [address] IMMATURE GRAN % 0.9 % Normal [facility] Comment on above: Order Comment: Speci men Type: BLOOD SPECIMEN Ordering Facility: [facility] Address: [address] [place] [address] Performed By: #### 5 7021-8, 51922-6 #### [facility] CLIA [id number] [address] [place] [address] 25917 IMMATURE GRAN ABS 0.08 k/uL Normal <0.10 [facility] Comment on above: Order Comment: Speci men Type: BLOOD SPECIMEN Ordering Facility: [facility] Address: [address] [place] [address] Performed By: #### 5 7021-8, 36950-3 #### [facility] CLIA [id number] [address] [place] [address] 74041 Lymphocytes (Bld) [#/Vol] 2.43 10*3/uL Normal 1.00-4.00 [facility] Comment on above: Order Comment: Speci men Type: BLOOD SPECIMEN Ordering Facility: [facility] Address: [address] [place] [address] Performed By: #### 5 7021-8, 17217-4 #### [facility] CLIA [id number] [address] [place] [address] 24529 Lymphocytes/100 WBC (Bld) 26.6 % Normal [facility] Comment on above: Order Comment: Speci men Type: BLOOD SPECIMEN Ordering Facility: [facility] Address: [address] [place] [address] Performed By: #### 5 7021-8, 39325-9 #### [facility] CLIA [id number] [address] [place] [address] 04467 MCH (RBC) [Entitic mass] 20.2 pg Low 26.0-34.0 [facility] Comment on above: Order Comment: Speci men Type: BLOOD SPECIMEN Ordering Facility: [facility] Address: [address] [place], [place] [address] Performed By: #### 5 7021-8, 30932-1 #### [facility] CLIA [id number] [address] [place] [address] 43745 MCHC (RBC) [Mass/Vol] 28.1 g/dL Low 30.5-36.0 [facility] Comment on above: Order Comment: Speci men Type: BLOOD SPECIMEN Ordering Facility: [facility] Address: [address] [place] [address] Performed By: #### 5 7021-8, 25456-2 #### [facility] CLIA [id number] [address] [place] [address] 83190 MCV (RBC) [Entitic vol] 72.0 fL Low 80.0-100.0 [facility] Comment on above: Order Comment: Speci men Type: BLOOD SPECIMEN Ordering Facility: [facility] Address: [address] [place] [address] Performed By: #### 5 7021-8, 41951-7 #### [facility] CLIA [id number] [address] [place] [address] 04104 Monocytes (Bld) [#/Vol] 0.48 10*3/uL Normal <0.87 [facility] Comment on above: Order Comment: Speci men Type: BLOOD SPECIMEN Ordering Facility: [facility] Address: [address] [place], [place] [address] Performed By: #### 5 7021-8, 98470-8 #### [facility] CLIA [id number] [address] [place] [address] 05619 Monocytes/100 WBC (Bld) 5.3 % Normal [facility] Comment on above: Order Comment: Speci men Type: BLOOD SPECIMEN Ordering Facility: [facility] Address: [address] [place] [address] Performed By: #### 5 7021-8, 81326-4 #### [facility] CLIA [id number] [address] [place] [address] 29524 Neutrophils (Bld) [#/Vol] 6.02 10*3/uL Normal 1.45-7.50 [facility] Comment on above: Order Comment: Speci men Type: BLOOD SPECIMEN Ordering Facility: [facility] Address: [address] [place] [address] Performed By: #### 5 7021-8, 72631-8 #### [facility] CLIA [id number] [address] [place] [address] 33213 Neutrophils/100 WBC (Bld) 65.9 % Normal [facility] Comment on above: Order Comment: Speci men Type: BLOOD SPECIMEN Ordering Facility: [facility] Address: [address] [place] [address] Performed By: #### 5 7021-8, 49535-7 #### [facility] CLIA [id number] [address] [place] [address] 22337 Nucleated RBC (Bld) [#/Vol] 10*3/uL Normal <0.01 [facility] Comment on above: Order Comment: Speci men Type: BLOOD SPECIMEN Ordering Facility: [facility] Address: [address] [place] [address] Performed By: #### 5 7021-8, 58090-7 #### [facility] CLIA [id number] [address] [place] [address] 76891 Nucleated RBC/100 WBC (Bld) [Ratio] 0.0 /100 WBC Normal [facility] Comment on above: Order Comment: Speci men Type: BLOOD SPECIMEN Ordering Facility: [facility] Address: [address] [place] [address] Performed By: #### 5 7021-8, 96805-8 #### [facility] CLIA [id number] [address] [place] [address] 06553 Platelet mean volume (Bld) [Entitic vol] 7.7 fL Low 9.0-12.7 [facility] Comment on above: Order Comment: Speci men Type: BLOOD SPECIMEN Ordering Facility: [facility] Address: [address] [place] [address] Performed By: #### 5 7021-8, 47433-4 #### [facility] CLIA [id number] [address] [place] [address] 99759 Platelets (Bld) [#/Vol] 318 10*3/uL Normal 150-400 [facility] Comment on above: Order Comment: Speci men Type: BLOOD SPECIMEN Ordering Facility: [facility] Address: [address] [place] [address] Performed By: #### 5 7021-8, 27346-5 #### [facility] CLIA [id number] [address] [place] [address] 21907 RBC (Bld) [#/Vol] 4.60 10*6/uL Normal 3.90-5.20 [facility] Comment on above: Order Comment: Speci men Type: BLOOD SPECIMEN Ordering Facility: [facility] Address: [address] [place] [address] Performed By: #### 5 7021-8, 43458-0 #### [facility] CLIA [id number] [address] [place] [address] 10538 WBC (Bld) [#/Vol] 9.13 10*3/uL Normal 3.70-11.00 [facility] Comment on above: Order Comment: Speci men Type: BLOOD SPECIMEN Ordering Facility: [facility] Address: [address] [place] [address] Performed By: #### 5 7021-8, 74002-5 #### [facility] CLIA [id number] [address] [place] [address] 12036 CNOVSPon 04-14-2022 CNOVSP Visit (SP) Office ([place]) ROBINA RON ([id number]) 1950 F Date Time Provider Department 04/14/22 1:15 PM CHRISTI FINK During your visit today, we recorded the following information about you: Temperature Pulse Respiration Blood pressure 97.9 degrees 80/minute 16/minute 149/60 Weight Height 53.6 kg 1.524 m Christi Fink MD 04/14/2022 1:13 PM Signed PATIENT NAME: Robina Ron CLINIC NO.: [id number] ATTENDING PHYSICIAN: Christi Fink MD DATE OF [...] Date Valu (more content not included)... Normal [facility] Sandeep 04-14-2022 VADIMN Telephone ([place]) ROBINA RON ([id number]) 1950 F Date Time Provider Department 04/14/22 CHRISTY BYRD During your visit today, we recorded the following information about you: Christy Byrd RN 04/14/2022 1:25 PM Signed Key Monteiro from [facility] Client Services calls to report [...] is now seen by Dr Rainey at [facility]. Call placed to their office ([phone]) and message left requesting a call back. PSS: can you please update pt's PCP info. Thanks, JOS Bustamante Pss 04/14/2022 2:03 PM Signed PCP updated in chart Makenna Kendall RN 04/17/2022 10:39 AM Signed Call placed to [facility]. Office is closed. JOS Bustamante RN 04/21/2022 12:55 PM Signed Message left with Dr Rainey's vp medical again today regarding this pt and the urgency of this being addressed. Will try again later today if I don't hear back from their office. JOS Bustamante RN 04/21/2022 1:35 PM Signed Spoke with Pankaj at Dr Rainey's office. Recent records and labs faxed to [phone] per office request. JOS Bustamante RN 04/21/2022 [...] Status:Closed by MAKENNA KENDALL on 04/21/22 Normal [facility] Comprehensive metabolic 2000 panelon 04-14-2022 Albumin [Mass/Vol] 3.5 g/dL Low 3.9-4.9 [facility] Comment on above: Order Comment: Speci men Type: BLOOD SPECIMEN Ordering Facility: [facility] Address: [address] [address] Performed By: #### 2 4323-8 #### [facility] CLIA [id number] [address] [place] [address] ALP [Catalytic activity/Vol] 120 U/L Normal 34-123 [facility] Comment on above: Order Comment: Speci men Type: BLOOD SPECIMEN Ordering Facility: [facility] Address: [address] [address] Performed By: #### 2 4323-8 #### [facility] CLIA [id number] [address] [place] [address] ALT [Catalytic activity/Vol] 15 U/L Normal 7-38 [facility] Comment on above: Order Comment: Speci men Type: BLOOD SPECIMEN Ordering Facility: [facility] Address: [address] [place] [address] Performed By: #### 2 4323-8 #### [facility] CLIA [id number] [address] [place] [address] 10779 Anion gap [Moles/Vol] 13 mmol/L Normal 9-18 [facility] Comment on above: Order Comment: Speci men Type: BLOOD SPECIMEN Ordering Facility: [facility] Address: [address] [place] [address] Performed By: #### 2 4323-8 #### [facility] CLIA [id number] [address] [place] [address] AST [Catalytic activity/Vol] 21 U/L Normal 13-35 [facility] Comment on above: Order Comment: Speci men Type: BLOOD SPECIMEN Ordering Facility: [facility] Address: [facility] [place] [address] Performed By: #### 2 4323-8 #### [facility] CLIA [id number] [address] [place] [address] Bilirubin [Mass/Vol] 0.2 mg/dL Normal 0.2-1.3 [facility] Comment on above: Order Comment: Speci men Type: BLOOD SPECIMEN Ordering Facility: [facility] Address: [address] [address] Performed By: #### 2 4323-8 #### [facility] CLIA [id number] [address] [place] [address] Calcium [Mass/Vol] 9.1 mg/dL Normal 8.5-10.2 [facility] Comment on above: Order Comment: Speci men Type: BLOOD SPECIMEN Ordering Facility: [facility] Address: [address] [place] [address] Performed By: #### 2 4323-8 #### [facility] CLIA [id number] [address] [place] [address] 79703 Chloride [Moles/Vol] 103 mmol/L Normal 97-105 [facility] Comment on above: Order Comment: Speci men Type: BLOOD SPECIMEN Ordering Facility: [facility] Address: [address] [place] [address] Performed By: #### 2 4323-8 #### [facility] CLIA [id number] [address] [place] [address] 71039 CO2 [Moles/Vol] 22 mmol/L Normal 22-30 [facility] Comment on above: Order Comment: Speci men Type: BLOOD SPECIMEN Ordering Facility: [facility] Address: [address] [place], [place] [address] Performed By: #### 2 4323-8 #### [facility] CLIA [id number] [address] [place] [address] 63233 Creatinine [Mass/Vol] 0.53 mg/dL Low 0.58-0.96 [facility] Comment on above: Order Comment: Speci men Type: BLOOD SPECIMEN Ordering Facility: [facility] Address: [address] [place] [address] Performed By: #### 2 4323-8 #### [facility] CLIA [id number] [address] [place] [address] 92740 ESTIMATED GLOMERULAR FILTRATION RATE 99 mL/min/1.73m??? Normal >=60 [facility] Comment on above: Order Comment: Nel sher Type: BLOOD SPECIMEN Ordering Facility: [facility] Address: [address] [place] [address] Result Comment: Kaylynn mated Glomerular Filtration Rate [...] GFR. Performed By: #### 2 4323-8 #### [facility] CLIA [id number] [address] [place] [address] 23592 Glucose [Mass/Vol] 508 mg/dL High 74-99 [facility] Comment on above: Order Comment: Nel sher Type: BLOOD SPECIMEN Ordering Facility: [facility] Address: [address] [place] [address] Result Comment: The [place] [employer] (ADA) provides guidance for cutoff [...] Standards of Medical Care in Diabetes 2016, [place] [employer]. Diabetes Care. 2016.39(Suppl 1). Performed By: #### 2 4323-8 #### [facility] CLIA [id number] [address] [place] [address] 22286 Potassium [Moles/Vol] 3.6 mmol/L Low 3.7-5.1 [facility] Comment on above: Order Comment: Speci men Type: BLOOD SPECIMEN Ordering Facility: [facility] Address: [address] [address] Performed By: #### 2 4323-8 #### [facility] CLIA [id number] [address] [place] [address] 01227 Protein [Mass/Vol] 5.4 g/dL Low 6.3-8.0 [facility] Comment on above: Order Comment: Speci men Type: BLOOD SPECIMEN Ordering Facility: [facility] Address: [address] [place] [address] Performed By: #### 2 4323-8 #### [facility] CLIA [id number] [address] [place] [address] 40305 Sodium [Moles/Vol] 138 mmol/L Normal 136-144 [facility] Comment on above: Order Comment: Speci men Type: BLOOD SPECIMEN Ordering Facility: [facility] Address: [address] [place] [address] Performed By: #### 2 4323-8 #### [facility] CLIA [id number] [address] [place] [address] 52055 Urea nitrogen [Mass/Vol] 8 mg/dL Normal 7-21 [facility] Comment on above: Order Comment: Speci men Type: BLOOD SPECIMEN Ordering Facility: [facility] Address: [address] [place] [address] Performed By: #### 2 4323-8 #### [facility] CLIA [id number] [address] [place] [address] 17646 Ferritin SerPl-mCncon 2021 Ferritin [Mass/Vol] 15.5 ng/mL Normal 14.7-205.1 [facility] Comment on above: Order Comment: Speci men Type: BLOOD SPECIMEN Ordering Facility: [facility] Address: [address] [place] [address] Performed By: #### 2 276-4, 63680-7 #### [facility] CLIA [id number] [address] [place] [address] [place] GLUCOSE, BLOOD (POC)on 04-14 Glucose [Mass/Vol] 373 mg/dL Abnormal 74 - 99 mg/dL [facility] Iron and Iron binding capaci ty panelon 04-14-2022 Iron [Mass/Vol] 17 ug/dL Low 41-186 [facility] Comment on above: Order Comment: Speci men Type: BLOOD SPECIMEN Ordering Facility: [facility] Address: [address] [place], [place] [address] Performed By: #### 2 276-4, 59680-5 #### [facility] CLIA [id number] [address] [place] [address] [facility] Iron binding capacity [Mass/Vol] 337 ug/dL Normal 232-386 [facility] Comment on above: Order Comment: Speci men Type: BLOOD SPECIMEN Ordering Facility: [facility] Address: [address] [place], [place] [address] Performed By: #### 2 276-4, 50953-2 #### [facility] CLIA [id number] [address] [place] [address] [place] Iron/TIBC [Molar ratio] 5.0 % Low 15.0-57.0 [facility] Comment on above: Order Comment: Speci men Type: BLOOD SPECIMEN Ordering Facility: [facility] Address: [address] [place], [place] [address] Performed By: #### 2 276-4, 44912-5 #### [facility] CLIA [id number] [address] [place] [address] [place] Retics #on 04-14-2022 Reticulocytes (Bld) [#/Vol] 0.61618 10*3/uL Normal 0.018-0.100 [facility] Comment on above: Order Comment: Speci men Type: BLOOD SPECIMEN Ordering Facility: [facility] Address: [address] [place], [place] [address] Performed By: #### 5 7021-8, 58051-7 #### [facility] CLIA [id number] [address] [place] [address] 23370 Reticulocytes (Bld) [#/Vol]o n 04-14-2022 Reticulocytes/100 RBC (Bld) 1.8 % Normal 0.4-2.0 [facility] Comment on above: Order Comment: Speci men Type: BLOOD SPECIMEN Ordering Facility: [facility] Address: [address] [place] [address] [place] [id number] Performed By: #### 5 7021-8, 17422-4 #### [facility] CLIA [id number] [address] [place] [address] 41272 CBC AUTO DIFFon 04-08-2022 BASO # 0.0 103/ul Normal 0.0-0.1 [facility] Comment on above: Performed By: #### A 1C #### [facility] [address] [place] [address] Dr. Julisa Lowe Basophils/100 WBC (Bld) 0.4 % Normal 0.2-2.0 [facility] Comment on above: Performed By: #### A 1C #### [facility] [address] [place] [address] Dr. Julisa Lowe EO # 0.2 103/ul Normal 0.0-0.7 [facility] Comment on above: Performed By: #### A 1C #### [facility] [address] [place] [address] Dr. Julisa Lowe Eosinophils/100 WBC (Bld) 1.7 % Normal 0.9-7.0 [facility] Comment on above: Performed By: #### A 1C #### [facility] [address] [place] [address] Dr. Julisa Lowe Erythrocyte distribution width (RBC) [Ratio] 20.8 % Critically high 11.0-15.0 [facility] Comment on above: Performed By: #### A 1C #### [facility] [address] [place] [address] Dr. Julisa Lowe Hematocrit (Bld) [Volume fraction] 34.9 % Critically low 36.0-48.0 [facility] Comment on above: Performed By: #### A 1C #### [facility] [address] [place] [address] Dr. Julisa Lowe Hemoglobin (Bld) [Mass/Vol] 10.0 g/dL Critically low 12.0-16.0 [facility] Comment on above: Performed By: #### A 1C #### [facility] [address] [address] [address] Julisa Lowe IG # 0.08 10e3/ul Critically high 0.00-0.03 [facility] Comment on above: Performed By: #### A 1C #### [facility] [address] [place] [address] Dr. Julisa Lowe IG % 0.7 % Critically high 0.0-0.5 [facility] Comment on above: Performed By: #### A 1C #### [facility] [address] [address] [address] Julisa Lowe LYMPH # 3.6 103/ul Normal 1.2-3.8 [facility] Comment on above: Performed By: #### A 1C #### [facility] [address] [place] [address] Dr. Julisa Lowe Lymphocytes/100 WBC (Bld) 33.3 % Normal 20.5-60.0 [facility] Comment on above: Performed By: #### A 1C #### [facility] [address] [place] [address] Dr. Julisa Lowe MANUAL DIFF REQ NO Normal [facility] Comment on above: Performed By: #### A 1C #### [facility] [address] [address] [address] Julisa Lowe MCH (RBC) [Entitic mass] 20.2 pg Critically low 26.7-34.0 [facility] Comment on above: Performed By: #### A 1C #### [facility] [address] [place] [address] Dr. Julisa Lowe MCHC (RBC) [Mass/Vol] 28.7 g/dL Critically low 29.9-35.2 [facility] Comment on above: Performed By: #### A 1C #### [facility] [address] [place] [address] Dr. Julisa Lowe MCV (RBC) [Entitic vol] 70.6 fL Critically low 81.0-99.0 [facility] Comment on above: Performed By: #### A 1C #### [facility] [address] [place] [address] Dr. Julisa Lowe MONO # 0.6 103/ul Normal 0.3-0.8 [facility] Comment on above: Performed By: #### A 1C #### [facility] [address] [place] [address] Dr. Julisa Lowe Monocytes/100 WBC (Bld) 5.4 % Normal 1.7-12.0 [facility] Comment on above: Performed By: #### A 1C #### [facility] [address] [place] [address] Dr. Julisa Lowe NEUT # 6.4 103/ul Normal 1.4-6.5 [facility] Comment on above: Performed By: #### A 1C #### [facility] [address] [place] [address] Dr. Julisa Lowe Neutrophils/100 WBC (Bld) 58.5 % Normal 43.0-75.0 [facility] Comment on above: Performed By: #### A 1C #### [facility] [address] [place] [address] Dr. Julisa Lowe Platelet mean volume (Bld) [Entitic vol] 8.1 fL Critically low 9.5-13.5 [facility] Comment on above: Performed By: #### A 1C #### [facility] [address] [place] [address] Dr. Julisa Lowe PLT 325 103/ul Normal 150-450 [facility] Comment on above: Performed By: #### A 1C #### [facility] [address] [place] [address] Dr. Julisa Lowe RBC 4.94 106/ul Normal 4.20-5.40 [facility] Comment on above: Performed By: #### A 1C #### [facility] [address] [address] [address] Julisa Lowe WBC 10.9 103/ul Normal 4.0-11.0 [facility] Comment on above: Performed By: #### A 1C #### [facility] [id number] Julisa Lowe FERRITINon 04-08-2022 Ferritin [Mass/Vol] 15.0 ng/mL Normal 8.0-252.0 [facility] Comment on above: Performed By: #### A 1C #### [facility] [address] [address] [address] Julisa Lowe CNPNon 04-06-2022 CNPN Telephone (NCCAP) ARIADNEROBINA Ivette ([id number]) 1950 F Date Time Provider Department 04/06/22 [facility] During your visit today, we recorded the following information about you: Makenna Hidalgo Sec 04/06/2022 7:49 AM Signed Please send records to [facility] office thanks! MD Tj Thompson; Makenna Hidalgo Sec Please refer her to GI for an upper endoscopy. ?Thanks Adrienne Weinstein Pss 04/06/2022 8:12 AM Signed Gladys: Information ready for you. Adrienne Weinstein [facility] Shaye Gonzalez [facility] 04/06/2022 8:57 AM Signed Records faxed to Dr. Rich. Adrienne Weinstein Pss 04/09/2022 8:40 AM Signed Called Angélica Romano [...] Fully Assessed Reason for Visit: Appointment Confirmation [[id number]] Prescriptions as of 04/16/2022 - insulin NPH [...] by mouth three times daily. - pantoprazole (PROTONIX) 40 mg tablet Take 40 mg by mouth once daily. Problem List As Of Date 04/06/2022 Noted Resolved CLL (chronic lymphocytic leukemia) (HCC) [C91.1*03/31/2016 Iron deficiency anemia due to chronic blood los*04/03/2022 Encounter Status:Closed by TJ HUNTER on 04/16/22 [facility] CNOVSPon 04-03-2022 CNOVSP Visit (SP) Office ([place]) ROBINA RON ([id number]) 1950 F Date Time Provider Department 04/03/22 4:30 PM CHRISTI FINK During your visit today, we recorded the following information about you: Temperature Pulse Respiration Blood pressure 97.4 degrees 90/minute 16/minute 107/38 Weight Height 53.6 kg 1.524 m Christi Fink MD 04/04/2022 11:07 AM Signed PATIENT NAME: Robina Ron CLINIC NO.: [id number] ATTENDING PHYSICIAN: Christi Fink MD DATE OF [...] not taking: Reported on 03/31/2022 ) - Qrryh-0-ZVG-EPA-Fish Oil 1,000 mg (120 mg-180 mg) cap [...] [Oxycodone* Mental (more content not included)... Normal [facility] ECHO LIMITED STUDYon 022 ECHO LIMITED STUDY Patient: ROBINA RON Exam Date: 02/06/2022 : 1950 Gender:F Ordering : EDD WADE Admission #: [id number] Family : Order #: [id number] CLICK HERE TO VIEW EXAM ECHOCARDIOGRAM REPORT [...] Area(A4C): 21.60 cm2 Left Atrium Systolic Volume(A2C): 04646 mm3 Left Atrium Systolic Volume(A4C): 89755 mm3 Mitral Valve Right Ventricle Aorta AO Root Diam: 3.10 cm Aortic Valve Tricuspid Valve Pulmonic Valve Right Atrium Dictated by: Alfred Suggs M.D. on 02/06/2022 at 15:55 Approved by: Alfred Suggs M.D. on 02/06/2022 at 16:11 Normal [facility] CBC AUTO DIFFon 01-23-2022 BASO # 0.0 103/ul Normal 0.0-0.1 [facility] Comment on above: Performed By: #### A 1C #### [facility] [address] [address] [address] Julisa Lowe Basophils/100 WBC (Bld) 0.3 % Normal 0.2-2.0 [facility] Comment on above: Performed By: #### A 1C #### [facility] [address] [address] [address] Julisa Lowe EO # 0.1 103/ul Normal 0.0-0.7 [facility] Comment on above: Performed By: #### A 1C #### [facility] [address] [address] [address] Julisa Lowe Eosinophils/100 WBC (Bld) 1.0 % Normal 0.9-7.0 [facility] Comment on above: Performed By: #### A 1C #### [facility] [address] [address] [address] Julisa Lowe Erythrocyte distribution width (RBC) [Ratio] 18.6 % Critically high 11.0-15.0 [facility] Comment on above: Performed By: #### A 1C #### [facility] [address] [address] [address] Julisa Lowe Hematocrit (Bld) [Volume fraction] 29.6 % Critically low 36.0-48.0 [facility] Comment on above: Performed By: #### A 1C #### [facility] [address] [address] [address] Julisa Lowe Hemoglobin (Bld) [Mass/Vol] 8.5 g/dL Critically low 12.0-16.0 [facility] Comment on above: Performed By: #### A 1C #### [facility] [address] [address] [address] Julisa Lowe IG # 0.09 10e3/ul Critically high 0.00-0.03 [facility] Comment on above: Performed By: #### A 1C #### [facility] [address] [address] [address] Julisa Lowe IG % 0.7 % Critically high 0.0-0.5 [facility] Comment on above: Performed By: #### A 1C #### [facility] [address] [place] [address] Dr. Julisa Lowe LYMPH # 3.2 103/ul Normal 1.2-3.8 [facility] Comment on above: Performed By: #### A 1C #### [facility] [address] [place] [address] Dr. Julisa Lowe Lymphocytes/100 WBC (Bld) 25.5 % Normal 20.5-60.0 [facility] Comment on above: Performed By: #### A 1C #### [facility] [address] [place] [address] Dr. Julisa Lowe MANUAL DIFF REQ NO Normal [facility] Comment on above: Performed By: #### A 1C #### [facility] [address] [place] [address] Dr. Julisa oLwe MCH (RBC) [Entitic mass] 20.2 pg Critically low 26.7-34.0 [facility] Comment on above: Performed By: #### A 1C #### [facility] [address] [place] [address] Dr. Julisa Lowe MCHC (RBC) [Mass/Vol] 28.7 g/dL Critically low 29.9-35.2 [facility] Comment on above: Performed By: #### A 1C #### [facility] [address] [place] [address] Dr. Julisa Lowe MCV (RBC) [Entitic vol] 70.5 fL Critically low 81.0-99.0 [facility] Comment on above: Performed By: #### A 1C #### [facility] [address] [place] [address] Dr. Julisa Lowe MONO # 0.6 103/ul Normal 0.3-0.8 [facility] Comment on above: Performed By: #### A 1C #### [facility] [address] [place] [address] Dr. Julisa Lowe Monocytes/100 WBC (Bld) 4.8 % Normal 1.7-12.0 [facility] Comment on above: Performed By: #### A 1C #### [facility] [address] [address] [address] Julisa Lowe NEUT # 8.4 103/ul Critically high 1.4-6.5 [facility] Comment on above: Performed By: #### A 1C #### [facility] [address] [address] [address] Julisa Lowe Neutrophils/100 WBC (Bld) 67.7 % Normal 43.0-75.0 [facility] Comment on above: Performed By: #### A 1C #### [facility] [address] [address] [address] Julisa Lowe Platelet mean volume (Bld) [Entitic vol] 7.9 fL Critically low 9.5-13.5 [facility] Comment on above: Performed By: #### A 1C #### [facility] [address] [address] [address] Julisa Lowe PLT 252 103/ul Normal 150-450 [facility] Comment on above: Performed By: #### A 1C #### [facility] [address] [address] [address] Julisa Lowe RBC 4.20 106/ul Normal 4.20-5.40 [facility] Comment on above: Performed By: #### A 1C #### [facility] [address] [address] [address] Julisa Lowe WBC 12.4 103/ul Critically high 4.0-11.0 [facility] Comment on above: Performed By: #### A 1C #### [facility] [address] [address] [address] Julisa Lowe FERRITINon 01-23-2022 Ferritin [Mass/Vol] 7.0 ng/mL Critically low 8.0-252.0 [facility] Comment on above: Performed By: #### P OCGLUC #### [facility] [address] [place] [address] Dr. Julisa Lowe GLYCOHEMOGLOBIN A1Con 2021 ADA RECOMMENDATION SEE BELOW Normal [facility] Comment on above: Result Comment: ADA RECOMMENDED LIMIT 4.0 - 6.0 ADA THERAPEUTIC TARGET < 7.0 ACTION SUGGESTED > 7.0 Performed By: #### A 1C #### [facility] [address] [place] [address] Dr. Julisa Lowe Glucose [Mass/Vol] 197 mg/dL Normal [facility] Comment on above: Performed By: #### A 1C #### [facility] [address] [place] [address] Dr. Julisa Lowe HbA1c (Bld) [Mass fraction] 8.5 % Critically high 4.5-6.2 [facility] Comment on above: Performed By: #### A 1C #### [facility] [address] [place] [address] Dr. Julisa Lowe TSHon 01-23-2022 TSH 0.501 uIU/mL Normal 0.358-3.740 [facility] Comment on above: Performed By: #### A 1C #### [facility] [address] [place] [address] Dr. Julisa Lowe TSH RANGE SEE BELOW Normal [facility] Comment on above: Result Comment: <0.3 4 UIU/ml HYPERTHYROID 0.34-5.60 UIU/ml EUTHYROID >5.60 UIU/ml HYPOTHYROID Performed By: #### A 1C #### [facility] [address] [place] [address] Dr. Julisa Lowe VIT B12 AND FOLATEon 022 Cobalamin (Vitamin B12) [Mass/Vol] 193.0 pg/mL Normal 193.0-986.0 [facility] Comment on above: Performed By: #### P OCGLUC #### [facility] [address] [place] [address] Dr. Julisa Lowe FOLATE 12.90 ng/mL Normal 8.60-58.90 [facility] Comment on above: Performed By: #### P OCGLUC #### [facility] [address] [place] [address] Dr. Julisa Lowe CULTURE URINEon 12-23-2021 CULTURE [...] Trimethoprim/Sulfamet hoxazole >=320 R F Normal [facility] Comment on above: Performed By: #### H STROPN #### [facility] [address] [place] [address] Dr. Julisa Lowe NM STRESS/REST MULTIon 12-22 NM STRESS/REST MULTI Patient: ROBINA RON Exam Date: 12/22/2021 : 1950 Gender:F Ordering : EDD WADE Admission #: [id number] Family : DR ESTUARDO SANCHEZ . Order #: [id number] CLICK HERE TO VIEW EXAM RADIOLOGY REPORT [...] M.D. on 12/22/2021 at 12:45 Normal [facility] CBC AUTO DIFFon 12-21-2021 BASO # 0.0 103/ul Normal 0.0-0.1 [facility] Comment on above: Performed By: #### A 1C #### [facility] [address] [address] [address] Julisa Lowe Basophils/100 WBC (Bld) 0.4 % Normal 0.2-2.0 [facility] Comment on above: Performed By: #### A 1C #### [facility] [address] [place] [address] Dr. Julisa Lowe EO # 0.1 103/ul Normal 0.0-0.7 [facility] Comment on above: Performed By: #### A 1C #### [facility] [address] [address] [address] Julisa Lowe Eosinophils/100 WBC (Bld) 1.3 % Normal 0.9-7.0 [facility] Comment on above: Performed By: #### A 1C #### [facility] [address] [place] [address] Dr. Julisa Lowe Erythrocyte distribution width (RBC) [Ratio] 19.7 % Critically high 11.0-15.0 [facility] Comment on above: Performed By: #### A 1C #### [facility] [address] [place] [address] Dr. Julisa Lowe Hematocrit (Bld) [Volume fraction] 31.6 % Critically low 36.0-48.0 [facility] Comment on above: Performed By: #### A 1C #### [facility] [address] [place] [address] Dr. Julisa Lowe Hemoglobin (Bld) [Mass/Vol] 9.2 g/dL Critically low 12.0-16.0 [facility] Comment on above: Performed By: #### A 1C #### [facility] [address] [address] [address] Julisa Lowe IG # 0.07 10e3/ul Critically high 0.00-0.03 [facility] Comment on above: Performed By: #### A 1C #### [facility] [address] [address] [address] Julisa Lowe IG % 0.7 % Critically high 0.0-0.5 [facility] Comment on above: Performed By: #### A 1C #### [facility] [address] [address] [address] Julisa Lowe LYMPH # 3.2 103/ul Normal 1.2-3.8 [facility] Comment on above: Performed By: #### A 1C #### [facility] [address] [place] [address] Dr. Julisa Lowe Lymphocytes/100 WBC (Bld) 30.8 % Normal 20.5-60.0 [facility] Comment on above: Performed By: #### A 1C #### [facility] [address] [place] [address] Dr. Julisa Lowe MANUAL DIFF REQ NO Normal [facility] Comment on above: Performed By: #### A 1C #### [facility] [address] [place] [address] Dr. Julisa Lowe MCH (RBC) [Entitic mass] 20.4 pg Critically low 26.7-34.0 [facility] Comment on above: Performed By: #### A 1C #### [facility] [address] [address] [address] Julisa Lowe MCHC (RBC) [Mass/Vol] 29.1 g/dL Critically low 29.9-35.2 [facility] Comment on above: Performed By: #### A 1C #### [facility] [address] [place] [address] Dr. Julisa Lowe MCV (RBC) [Entitic vol] 69.9 fL Critically low 81.0-99.0 [facility] Comment on above: Performed By: #### A 1C #### [facility] [address] [place] [address] Dr. Julisa Lowe MONO # 0.8 103/ul Normal 0.3-0.8 [facility] Comment on above: Performed By: #### A 1C #### [facility] [address] [place] [address] Dr. Julisa Lowe Monocytes/100 WBC (Bld) 7.3 % Normal 1.7-12.0 [facility] Comment on above: Performed By: #### A 1C #### [facility] [address] [place] [address] Dr. Julisa Lowe NEUT # 6.2 103/ul Normal 1.4-6.5 [facility] Comment on above: Performed By: #### A 1C #### [facility] [address] [place] [address] Dr. Julisa Lowe Neutrophils/100 WBC (Bld) 59.5 % Normal 43.0-75.0 [facility] Comment on above: Performed By: #### A 1C #### [facility] [address] [place] [address] Dr. Julisa Lowe Platelet mean volume (Bld) [Entitic vol] 8.4 fL Critically low 9.5-13.5 [facility] Comment on above: Performed By: #### A 1C #### [facility] [address] [place] [address] Dr. Julisa Lowe PLT 301 103/ul Normal 150-450 [facility] Comment on above: Performed By: #### A 1C #### [facility] [address] [place] [address] Dr. Julisa Lowe RBC 4.52 106/ul Normal 4.20-5.40 [facility] Comment on above: Performed By: #### A 1C #### [facility] [address] [place] [address] Dr. Julisa Lowe WBC 10.4 103/ul Normal 4.0-11.0 [facility] Comment on above: Performed By: #### A 1C #### [facility] [address] [place] [address] Dr. Julisa Lowe POINT OF CARE GLUCOSEon 04- Glucose [Mass/Vol] 183 mg/dL Critically high 74-106 [facility] Comment on above: Performed By: #### P OCGLUC #### [facility] [address] [place] [address] Dr. Julisa Lowe Glucose [Mass/Vol] 351 mg/dL Critically high 74-106 [facility] Comment on above: Performed By: #### H STROPN #### [facility] [address] [place] [address] Dr. Julisa Lowe PROF CHEM 8 (BAS METB)on Anion gap [Moles/Vol] 14.6 mmol/L Normal [facility] Comment on above: Performed By: #### S EDR #### [facility] [address] [place] [address] Dr. Julisa Lowe Calcium [Mass/Vol] 8.6 mg/dL Normal 8.5-10.1 [facility] Comment on above: Performed By: #### S EDR #### [facility] [address] [place] [address] Dr. Julisa Lowe Chloride [Moles/Vol] 107 mmol/L Normal 98-107 [facility] Comment on above: Performed By: #### S EDR #### [facility] [address] [place] [address] Dr. Julisa Lowe CO2 [Moles/Vol] 24.6 mmol/L Normal 22.0-30.0 [facility] Comment on above: Performed By: #### S EDR #### [facility] [address] [place] [address] Dr. Julisa Lowe Creatinine [Mass/Vol] 0.57 mg/dL Normal 0.52-1.04 [facility] Comment on above: Performed By: #### S EDR #### [facility] [address] [place] [address] Dr. Julisa Lowe EGFR-AF LIBYAN >60 Normal >=60 [facility] Comment on above: Performed By: #### S EDR #### [facility] [address] [place] [address] Dr. Julisa Lowe EGFR-NON AF LIBYAN >60 Normal >=60 [facility] Comment on above: Performed By: #### S EDR #### [facility] [address] [address] [address] Julisa Lowe Glucose [Mass/Vol] 189 mg/dL Critically high 74-106 [facility] Comment on above: Performed By: #### S EDR #### [facility] [address] [address] [address] Julisa Lowe Potassium [Moles/Vol] 4.2 mmol/L Normal 3.4-5.0 [facility] Comment on above: Performed By: #### S EDR #### [facility] [address] [address] [address] Julisa Lowe Sodium [Moles/Vol] 142 mmol/L Normal 137-145 [facility] Comment on above: Performed By: #### S EDR #### [facility] [address] [address] [address] Julisa Lowe Urea nitrogen [Mass/Vol] 16.0 mg/dL Normal 7.0-18.0 [facility] Comment on above: Performed By: #### S EDR #### [facility] [address] [address] [address] Julisa Lowe Urea nitrogen/Creatinine [Mass ratio] 28.1 mg/mg [facility] [facility] Comment on above: Performed By: #### S EDR #### [facility] [address] [address] [address] Julisa Lowe BNPon 12-20-2021 Natriuretic peptide B (Bld) [Mass/Vol] 880.0 pg/mL Normal <=900.0 [facility] Comment on above: Performed By: #### H STROPN #### [facility] [address] [place] [address] Dr. Julisa Lowe CARDIAC TRUONG ADMITon 022 CK <20 Critically low 30-135 [facility] Comment on above: Performed By: #### H STROPN #### [facility] [address] [place], [place] [id number] Dr. Julisa Lowe CK.MB [Mass/Vol] ng/mL Normal <=2.37 [facility] Comment on above: Performed By: #### H STROPN #### [facility] [address] [place] [address] Dr. Julisa Lowe HSTROP 15.1 pg/mL Normal 4.0-35.5 [facility] Comment on above: Result Comment: CUT- OFF POINTS HAVE BEEN ESTABLISHED BASED ON THE FOURTH UNIVERSAL DEFINITIONS OF MYOCARDIAL INFARCTION. THE UPPER REFERENCE LIMIT (URL) OF TROPONIN, DEFINED THE 99TH PERCENTILE OF cTnI DISTRIBUTION IN A REFERENCE POPULATION, HAS BEEN CONFIRMED THE DECISION THRESHOLD FOR [place] DIAGNOSIS. Performed By: #### H STROPN #### [facility] [address] [place] [address] Dr. Julisa Lowe RAJ 24.0 ng/mL Normal <=61.5 [facility] Comment on above: Performed By: #### H STROPN #### [facility] [address] [place] [address] Dr. Julisa Lowe CBC AUTO DIFFon 12-20-2021 BASO # 0.1 103/ul Normal 0.0-0.1 [facility] Comment on above: Performed By: #### S EDR #### [facility] [address] [place] [address] Dr. Julisa Lowe Basophils/100 WBC (Bld) 0.5 % Normal 0.2-2.0 [facility] Comment on above: Performed By: #### S EDR #### [facility] [address] [place] [address] Dr. Julisa Lowe EO # 0.1 103/ul Normal 0.0-0.7 [facility] Comment on above: Performed By: #### S EDR #### [facility] [address] [place] [address] Dr. Julisa Lowe Eosinophils/100 WBC (Bld) 1.0 % Normal 0.9-7.0 [facility] Comment on above: Performed By: #### S EDR #### [facility] [address] [place] [address] Dr. Julisa Lowe Erythrocyte distribution width (RBC) [Ratio] 19.8 % Critically high 11.0-15.0 [facility] Comment on above: Result Comment: slig ht poikilocytosis, moderate anisocytosis, Performed By: #### S EDR #### [facility] [address] [address] [address] Julisa Lowe Hematocrit (Bld) [Volume fraction] 32.7 % Critically low 36.0-48.0 [facility] Comment on above: Performed By: #### S EDR #### [facility] [address] [address] [address] Julisa Lowe Hemoglobin (Bld) [Mass/Vol] 9.6 g/dL Critically low 12.0-16.0 [facility] Comment on above: Performed By: #### S EDR #### [facility] [address] [place] [address] Dr. Julisa Lowe IG # 0.07 10e3/ul Critically high 0.00-0.03 [facility] Comment on above: Performed By: #### S EDR #### [facility] [address] [address] [address] Julisa Lowe IG % 0.7 % Critically high 0.0-0.5 [facility] Comment on above: Performed By: #### S EDR #### [facility] [address] [place] [address] Dr. Julisa Lowe LYMPH # 3.1 103/ul Normal 1.2-3.8 [facility] Comment on above: Performed By: #### S EDR #### [facility] [address] [place] [address] Dr. Julisa Lowe Lymphocytes/100 WBC (Bld) 29.7 % Normal 20.5-60.0 [facility] Comment on above: Performed By: #### S EDR #### [facility] [address] [place] [address] Dr. Julisa Lowe MANUAL DIFF REQ NO Normal [facility] Comment on above: Performed By: #### S EDR #### [facility] [address] [place] [address] Dr. Julisa Lowe MCH (RBC) [Entitic mass] 20.5 pg Critically low 26.7-34.0 [facility] Comment on above: Performed By: #### S EDR #### [facility] [address] [place] [address] Dr. Julisa Lowe MCHC (RBC) [Mass/Vol] 29.4 g/dL Critically low 29.9-35.2 [facility] Comment on above: Performed By: #### S EDR #### [facility] [address] [place] [address] Dr. Julisa Lowe MCV (RBC) [Entitic vol] 69.9 fL Critically low 81.0-99.0 [facility] Comment on above: Result Comment: few ovalocytes, moderate hypochromasia Performed By: #### S EDR #### [facility] [address] [place] [address] Dr. Julisa Lowe MONO # 0.6 103/ul Normal 0.3-0.8 [facility] Comment on above: Performed By: #### S EDR #### [facility] [address] [place] [address] Dr. Julisa Lowe Monocytes/100 WBC (Bld) 5.6 % Normal 1.7-12.0 [facility] Comment on above: Performed By: #### S EDR #### [facility] [address] [place] [address] Dr. Julisa Lowe NEUT # 6.5 103/ul Normal 1.4-6.5 [facility] Comment on above: Performed By: #### S EDR #### [facility] [address] [place] [address] Dr. Julisa Lowe Neutrophils/100 WBC (Bld) 62.5 % Normal 43.0-75.0 [facility] Comment on above: Performed By: #### S EDR #### [facility] [address] [place] [address] Dr. Julisa Lowe Platelet mean volume (Bld) [Entitic vol] 8.8 fL Critically low 9.5-13.5 [facility] Comment on above: Performed By: #### S EDR #### [facility] [address] [place] [address] Dr. Julisa Lowe PLT 280 103/ul Normal 150-450 [facility] Comment on above: Performed By: #### S EDR #### [facility] [address] [place] [address] Dr. Julisa Lowe RBC 4.68 106/ul Normal 4.20-5.40 [facility] Comment on above: Performed By: #### S EDR #### [facility] [address] [place] [address] Dr. Julisa Lowe WBC 10.5 103/ul Normal 4.0-11.0 [facility] Comment on above: Performed By: #### S EDR #### [facility] [address] [place] [address] Dr. Julisa Lowe Covid-19 PCR ([facility])on SARS-CoV-2 (COVID-19) RNA CHALINO+probe Ql (Unsp spec) Not detected Normal NOT DETECTED [facility] Comment on above: Result Comment: When [...] for this test is supported by the Grants of Health and Human Service's declaration that [...] used). Performed By: #### P OCGLUC #### [facility] [address] [place] [address] Dr. Julisa Lowe ER URINE PROFILEon 2 Bilirubin Ql (U) Negative Normal NEGATIVE [facility] Comment on above: Performed By: #### S EDR #### [facility] [address] [place] [address] Dr. Julisa Lowe Clarity (U) SL CLOUDY Abnormal CLEAR [facility] Comment on above: Performed By: #### S EDR #### [facility] [address] [place] [address] Dr. Julisa Lowe Color (U) LT. YELLOW Normal YELLOW [facility] Comment on above: Performed By: #### S EDR #### [facility] [address] [address] [address] Julisa DAY A micrscopic examination will be performed if indicated. Normal [facility] Comment on above: Performed By: #### S EDR #### [facility] [address] [place] [address] Dr. Julisa Lowe Glucose Ql (U) Negative Normal NEGATIVE [facility] Comment on above: Performed By: #### S EDR #### [facility] [address] [place] [address] Dr. Julisa Lowe Hemoglobin Ql (U) Negative Normal NEGATIVE [facility] Comment on above: Performed By: #### S EDR #### [facility] [address] [place] [address] Dr. Julisa Lowe Ketones Ql (U) Negative Normal NEGATIVE [facility] Comment on above: Performed By: #### S EDR #### [facility] [address] [place] [address] Dr. Julisa Lowe LEUKOCYTES TRACE Abnormal NEGATIVE [facility] Comment on above: Performed By: #### S EDR #### [facility] [address] [place] [address] Dr. Julisa Lowe Nitrite Ql (U) Negative Normal NEGATIVE [facility] Comment on above: Performed By: #### S EDR #### [facility] [address] [place] [address] Dr. Julisa Lowe pH (U) 7.5 [pH] Normal 5-9 [facility] Comment on above: Performed By: #### S EDR #### [facility] [address] [address] [address] Julisa Lowe Protein (U) [Mass/Vol] 100 mg/dL Abnormal NEGAT CRISTOPHER/ TRACE [facility] Comment on above: Performed By: #### S EDR #### [facility] [address] [address] [address] Julisa Lowe SPEC GRAVITY 1.020 Normal 1.005-<=1.025 [facility] Comment on above: Performed By: #### S EDR #### [facility] [address] [address] [address] Julisa Lowe UR MICRO IND INDICATED Normal [facility] Comment on above: Performed By: #### S EDR #### [facility] [address] [place] [address] Dr. Julisa Lowe Urobilinogen Qn (U) 0.2 {Shirley'U}/dL Normal 0.2 - 1. 0 [facility] Comment on above: Performed By: #### S EDR #### [facility] [address] [place] [address] Dr. Julisa Lowe POINT OF CARE GLUCOSEon Glucose [Mass/Vol] 145 mg/dL Critically high 74-106 [facility] Comment on above: Performed By: #### S EDR #### [facility] [address] [place] [address] Dr. Julisa Lowe PROF 14(COMP METB)on 022 Albumin [Mass/Vol] 3.0 g/dL Critically low 3.4-5.0 [facility] Comment on above: Performed By: #### H STROPN #### [facility] [address] [place] [address] Dr. Julisa Lowe Albumin/Globulin [Mass ratio] 1.0 {ratio} Normal [facility] Comment on above: Performed By: #### H STROPN #### [facility] [address] [place] [address] Dr. Julisa Lowe ALP [Catalytic activity/Vol] 110 U/L Normal 46-116 [facility] Comment on above: Performed By: #### H STROPN #### [facility] [address] [address] [address] Julisa Lowe ALT [Catalytic activity/Vol] 18 U/L Normal 14-59 [facility] Comment on above: Performed By: #### H STROPN #### [facility] [address] [address] [address] Julisa Lowe Anion gap [Moles/Vol] 13.4 mmol/L Normal [facility] Comment on above: Performed By: #### H STROPN #### [facility] [address] [address] [address] Julisa Lowe AST [Catalytic activity/Vol] 8 U/L Critically low 15-37 [facility] Comment on above: Performed By: #### H STROPN #### [facility] [address] [address] [address] Julisa Lowe Bilirubin [Mass/Vol] 0.3 mg/dL Normal 0.2-1.3 [facility] Comment on above: Performed By: #### H STROPN #### [facility] [address] [place] [address] Dr. Julisa Lowe Calcium [Mass/Vol] 8.5 mg/dL Normal 8.5-10.1 [facility] Comment on above: Performed By: #### H STROPN #### [facility] [address] [address] [address] Julisa Lowe Chloride [Moles/Vol] 106 mmol/L Normal 98-107 [facility] Comment on above: Performed By: #### H STROPN #### [facility] [address] [address] [address] Julisa Lowe CO2 [Moles/Vol] 26.3 mmol/L Normal 22.0-30.0 [facility] Comment on above: Performed By: #### H STROPN #### [facility] [address] [address] [address] Julisa Lowe Creatinine [Mass/Vol] 0.52 mg/dL Normal 0.52-1.04 [facility] Comment on above: Performed By: #### H STROPN #### [facility] [address] [address] [address] Julisa Lowe EGFR-AF LIBYAN >60 Normal >=60 [facility] Comment on above: Performed By: #### H STROPN #### [facility] [address] [address] [address] Julisa Lowe EGFR-NON AF LIBYAN >60 Normal >=60 [facility] Comment on above: Performed By: #### H STROPN #### [facility] [address] [address] [address] Julisa Lowe Globulin (S) [Mass/Vol] 3.0 g/dL Normal [facility] Comment on above: Performed By: #### H STROPN #### [facility] [address] [address] [address] Julisa Lowe Glucose [Mass/Vol] 147 mg/dL Critically high 74-106 [facility] Comment on above: Performed By: #### H STROPN #### [facility] [address] [address] [address] Julisa Lowe Potassium [Moles/Vol] 3.7 mmol/L Normal 3.4-5.0 [facility] Comment on above: Performed By: #### H STROPN #### [facility] [address] [address] [address] Julisa Lowe Protein [Mass/Vol] 6.0 g/dL Critically low 6.1-8.2 [facility] Comment on above: Performed By: #### H STROPN #### [facility] [address] [address] [address] Julisa Lowe Sodium [Moles/Vol] 142 mmol/L Normal 137-145 [facility] Comment on above: Performed By: #### H STROPN #### [facility] [address] [address] [address] Julisa Lowe Urea nitrogen [Mass/Vol] 13.0 mg/dL Normal 7.0-18.0 [facility] Comment on above: Performed By: #### H STROPN #### [facility] [address] [place] [address] Dr. Julisa Lowe Urea nitrogen/Creatinine [Mass ratio] 25.0 mg/mg Normal [facility] Comment on above: Performed By: #### H STROPN #### [facility] [address] [place] [address] Dr. Julisa Lowe PROTIMEon 12-20-2021 INR Coag (PPP) [Relative time] 0.94 {INR} Normal [facility] Comment on above: Performed By: #### S EDR #### [facility] [address] [place] [address] Dr. Julisa Lowe INR GUIDELINES SEE BELOW Normal [facility] Comment on above: Result Comment: NHI RED INR: 2.0 - 3.0 CONDITIONS NOT LISTED BELOW 2.5 - 3.5 FOR PROSTHETIC HEART VALVE REPLACEMENT 2.5 - 3.5 RECURRENT THROMBOSIS Performed By: #### S EDR #### [facility] [address] [place] [address] Dr. Julisa Lowe PT Coag (PPP) [Time] 10.2 s Normal 9.0-11.6 [facility] Comment on above: Performed By: #### S EDR #### [facility] [address] [place] [address] Dr. Julisa Lowe PTTon 12-20-2021 aPTT Coag (Bld) [Time] 21.7 s Critically low 22.3-36.2 [facility] Comment on above: Performed By: #### S EDR #### [facility] [address] [place] [address] Dr. Julisa Lowe TROPONIN, HIGH SENSITIVITYon 12-20-2021 HSTROP 16.3 pg/mL Normal 4.0-35.5 [facility] Comment on above: Result Comment: CUT- OFF POINTS HAVE BEEN ESTABLISHED BASED ON THE FOURTH UNIVERSAL DEFINITIONS OF MYOCARDIAL INFARCTION. THE UPPER REFERENCE LIMIT (URL) OF TROPONIN, DEFINED THE 99TH PERCENTILE OF cTnI DISTRIBUTION IN A REFERENCE POPULATION, HAS BEEN CONFIRMED THE DECISION THRESHOLD FOR [place] DIAGNOSIS. Performed By: #### P OCGLUC #### [facility] [address] [place] [address] Dr. Julisa Lowe HSTROP 16.8 pg/mL Normal 4.0-35.5 [facility] Comment on above: Result Comment: CUT- OFF POINTS HAVE BEEN ESTABLISHED BASED ON THE FOURTH UNIVERSAL DEFINITIONS OF MYOCARDIAL INFARCTION. THE UPPER REFERENCE LIMIT (URL) OF TROPONIN, DEFINED THE 99TH PERCENTILE OF cTnI DISTRIBUTION IN A REFERENCE POPULATION, HAS BEEN CONFIRMED THE DECISION THRESHOLD FOR FL DIAGNOSIS. Performed By: #### H STROPN #### [facility] [address] [place] [address] Dr. Julisa Lowe URINE MICROSCOPIC ONLYon BACTERIA LARGE Abnormal NONE SEEN [facility] Comment on above: Performed By: #### S EDR #### [facility] [address] [place] [address] Dr. Julisa Lowe Bacteria identified Cx Nom (U) INDICATED Normal [facility] Comment on above: Performed By: #### S EDR #### [facility] [address] [place] [address] Dr. Julisa Lowe CAST NONE SEEN Normal NONE SEEN [facility] Comment on above: Performed By: #### S EDR #### [facility] [address] [place] [address] Dr. Julisa Lowe Crystals LM Nom (Urine sed) NONE SEEN Normal NONE SEEN [facility] Comment on above: Performed By: #### S EDR #### [facility] [address] [place] [address] Dr. Julisa Lowe Epithelial cells LM Ql (Urine sed) FEW Abnormal NONE SEEN /RARE [facility] Comment on above: Performed By: #### S EDR #### [facility] [address] [place] [address] Dr. Julisa Lowe MUCOUS NONE SEEN Normal NONE SEEN [facility] Comment on above: Performed By: #### S EDR #### [facility] [address] [place] [address] Dr. Julisa Lowe RBC 0-2 Normal 0-2 [facility] Comment on above: Performed By: #### S EDR #### [facility] [address] [place] [address] Dr. Julisa Lowe WBC 10-20 Abnormal NONE SEEN [facility] Comment on above: Performed By: #### S EDR #### [facility] [address] [place] [address] Dr. Julisa Lowe XR CHEST 1 Von [...] NGOZI NELSON Date: 2021-12-20 15:58 Normal [facility] JOSEE by IFAon 12-18-2021 Antinuclear Antibodies, IFA Negative Normal [facility] Comment on above: Result Comment: Nega tive <1:80 Borderline 1:80 Positive >1:80 ICAP nomenclature: [id number] For more information about Hep-2 cell patterns use ANApatterns.org, the official website for the International Consensus on Antinuclear Antibody (JOSEE) Patterns (ICAP). Performed By: #### H STROPN #### [facility] [address] [place] [address] Dr. Julisa Lowe CBC AUTO DIFFon 12-15-2021 BASO # 0.0 103/ul Normal 0.0-0.1 [facility] Comment on above: Performed By: #### A 1C #### [facility] [address] [place] [address] Dr. Julisa Lowe Basophils/100 WBC (Bld) 0.3 % Normal 0.2-2.0 [facility] Comment on above: Performed By: #### A 1C #### [facility] [address] [place] [address] Dr. Julisa Lowe EO # 0.1 103/ul Normal 0.0-0.7 [facility] Comment on above: Performed By: #### A 1C #### [facility] [address] [address] [address] Julisa Lowe Eosinophils/100 WBC (Bld) 0.9 % Normal 0.9-7.0 [facility] Comment on above: Performed By: #### A 1C #### [facility] [address] [place] [address] Dr. Julisa Lowe Erythrocyte distribution width (RBC) [Ratio] 19.6 % Critically high 11.0-15.0 [facility] Comment on above: Performed By: #### A 1C #### [facility] [address] [place] [address] Dr. Julisa Lowe Hematocrit (Bld) [Volume fraction] 33.8 % Critically low 36.0-48.0 [facility] Comment on above: Performed By: #### A 1C #### [facility] [address] [place] [address] Dr. Julisa Lowe Hemoglobin (Bld) [Mass/Vol] 9.7 g/dL Critically low 12.0-16.0 [facility] Comment on above: Performed By: #### A 1C #### [facility] [address] [place] [address] Dr. Julisa Lowe IG # 0.13 10e3/ul Critically high 0.00-0.03 [facility] Comment on above: Performed By: #### A 1C #### [facility] [address] [place] [address] Dr. Julisa Lowe IG % 0.9 % Critically high 0.0-0.5 [facility] Comment on above: Performed By: #### A 1C #### [facility] [address] [place] [address] Dr. Julisa Lowe LYMPH # 3.5 103/ul Normal 1.2-3.8 [facility] Comment on above: Performed By: #### A 1C #### [facility] [address] [place] [address] Dr. Julisa Lowe Lymphocytes/100 WBC (Bld) 25.4 % Normal 20.5-60.0 [facility] Comment on above: Performed By: #### A 1C #### [facility] [address] [place] [address] Dr. Julisa Lowe MANUAL DIFF REQ NO Normal [facility] Comment on above: Performed By: #### A 1C #### [facility] [address] [place] [address] Dr. Julisa Lowe MCH (RBC) [Entitic mass] 20.4 pg Critically low 26.7-34.0 [facility] Comment on above: Performed By: #### A 1C #### [facility] [address] [place] [address] Dr. Julisa Lowe MCHC (RBC) [Mass/Vol] 28.7 g/dL Critically low 29.9-35.2 [facility] Comment on above: Performed By: #### A 1C #### [facility] [address] [place] [address] Dr. Julisa Lowe MCV (RBC) [Entitic vol] 71.2 fL Critically low 81.0-99.0 [facility] Comment on above: Performed By: #### A 1C #### [facility] [address] [place] [address] Dr. Julisa Lowe MONO # 0.7 103/ul Normal 0.3-0.8 [facility] Comment on above: Performed By: #### A 1C #### [facility] [address] [place] [address] Dr. Julisa Lowe Monocytes/100 WBC (Bld) 5.0 % Normal 1.7-12.0 [facility] Comment on above: Performed By: #### A 1C #### [facility] [address] [place] [address] Dr. Julisa Lowe NEUT # 9.3 103/ul Critically high 1.4-6.5 [facility] Comment on above: Performed By: #### A 1C #### [facility] [address] [place] [address] Dr. Julisa Lowe Neutrophils/100 WBC (Bld) 67.5 % Normal 43.0-75.0 [facility] Comment on above: Performed By: #### A 1C #### [facility] [address] [place] [address] Dr. Julisa Lowe Platelet mean volume (Bld) [Entitic vol] 8.2 fL Critically low 9.5-13.5 [facility] Comment on above: Performed By: #### A 1C #### [facility] [address] [place] [address] Dr. Julisa Lowe PLT 301 103/ul Normal 150-450 [facility] Comment on above: Performed By: #### A 1C #### [facility] [address] [place] [address] Dr. Julisa Lowe RBC 4.75 106/ul Normal 4.20-5.40 [facility] Comment on above: Result Comment: HYPO CHROMIA 3+ Performed By: #### A 1C #### [facility] [address] [place] [address] Dr. Julisa Lowe WBC 13.8 103/ul Critically high 4.0-11.0 [facility] Comment on above: Performed By: #### A 1C #### [facility] [address] [place] [address] Dr. Julisa Lowe CRPon 12-15-2021 CRP [Mass/Vol] mg/L Normal <=1.0 [facility] Comment on above: Performed By: #### C MP, CRP, TSH #### [facility] [address] [place] [address] Dr. Julisa Lowe FREE T4on 12-15-2021 Free T4 [Mass/Vol] 1.04 ng/dL Normal 0.78-2.19 [facility] Comment on above: Performed By: #### S EDR #### [facility] [address] [place] [address] Dr. Julisa Lowe PROF 14(COMP METB)on 022 Albumin [Mass/Vol] 3.4 g/dL Normal 3.4-5.0 [facility] Comment on above: Performed By: #### C MP, CRP, TSH #### [facility] [address] [place] [address] Dr. Julisa Lowe Albumin/Globulin [Mass ratio] 1.1 {ratio} Normal [facility] Comment on above: Performed By: #### C MP, CRP, TSH #### [facility] [address] [address] [address] Julisa Lowe ALP [Catalytic activity/Vol] 120 U/L Critically high 46-116 [facility] Comment on above: Performed By: #### C MP, CRP, TSH #### [facility] [address] [address] [address] Julisa Lowe ALT [Catalytic activity/Vol] 28 U/L Normal 14-59 [facility] Comment on above: Performed By: #### C MP, CRP, TSH #### [facility] [address] [address] [address] Julisa Lowe Anion gap [Moles/Vol] 12.7 mmol/L Normal [facility] Comment on above: Performed By: #### C MP, CRP, TSH #### [facility] [address] [address] [address] Julisa Lowe AST [Catalytic activity/Vol] 13 U/L Critically low 15-37 [facility] Comment on above: Performed By: #### C MP, CRP, TSH #### [facility] [address] [address] [address] Julisa Lowe Bilirubin [Mass/Vol] 0.3 mg/dL Normal 0.2-1.3 [facility] Comment on above: Performed By: #### C MP, CRP, TSH #### [facility] [address] [address] [address] Julisa Lowe Calcium [Mass/Vol] 8.4 mg/dL Critically low 8.5-10.1 [facility] Comment on above: Performed By: #### C MP, CRP, TSH #### [facility] [address] [address] [address] Julisa Lowe Chloride [Moles/Vol] 106 mmol/L Normal 98-107 [facility] Comment on above: Performed By: #### C MP, CRP, TSH #### [facility] [address] [address] [address] Julisa Lowe CO2 [Moles/Vol] 25.8 mmol/L Normal 22.0-30.0 [facility] Comment on above: Performed By: #### C MP, CRP, TSH #### [facility] [address] [address] [address] Julisa Lowe Creatinine [Mass/Vol] 0.68 mg/dL Normal 0.52-1.04 [facility] Comment on above: Performed By: #### C MP, CRP, TSH #### [facility] [address] [address] [address] Julisa Lowe EGFR-AF LIBYAN >60 Normal >=60 [facility] Comment on above: Performed By: #### C MP, CRP, TSH #### [facility] [address] [address] [address] Julisa Lowe EGFR-NON AF LIBYAN >60 Normal >=60 [facility] Comment on above: Performed By: #### C MP, CRP, TSH #### [facility] [address] [address] [address] Julisa Lowe Globulin (S) [Mass/Vol] 3.2 g/dL Normal [facility] Comment on above: Performed By: #### C MP, CRP, TSH #### [facility] [address] [address] [address] Julisa Lowe Glucose [Mass/Vol] 222 mg/dL Critically high 74-106 [facility] Comment on above: Performed By: #### C MP, CRP, TSH #### [facility] [address] [address] [address] Julisa Lowe Potassium [Moles/Vol] 3.5 mmol/L Normal 3.4-5.0 [facility] Comment on above: Performed By: #### C MP, CRP, TSH #### [facility] [address] [address] [address] Julisa Lowe Protein [Mass/Vol] 6.6 g/dL Normal 6.1-8.2 [facility] Comment on above: Performed By: #### C MP, CRP, TSH #### [facility] [address] [address] [address] Julisa Lowe Sodium [Moles/Vol] 141 mmol/L Normal 137-145 [facility] Comment on above: Performed By: #### C MP, CRP, TSH #### [facility] [address] [place] [address] Dr. Julisa Lowe Urea nitrogen [Mass/Vol] 14.0 mg/dL Normal 7.0-18.0 [facility] Comment on above: Performed By: #### C MP, CRP, TSH #### [facility] [address] [place] [address] Dr. Julisa Lowe Urea nitrogen/Creatinine [Mass ratio] 20.6 mg/mg Normal [facility] Comment on above: Performed By: #### C MP, CRP, TSH #### [facility] [address] [place] [address] Dr. Julisa [facility] mm/hr Normal <=30 [facility] Comment on above: Performed By: #### S EDR #### [facility] [address] [place] [address] Dr. Julisa Lowe TSHon 12-15-2021 TSH 0.747 uIU/mL Normal 0.470-4.680 [facility] Comment on above: Performed By: #### C MP, CRP, TSH #### [facility] [address] [place] [address] Dr. Julisa Lowe TSH RANGE SEE BELOW Normal [facility] Comment on above: Result Comment: <0.3 4 UIU/ml HYPERTHYROID 0.34-5.60 UIU/ml EUTHYROID >5.60 UIU/ml HYPOTHYROID Performed By: #### C MP, CRP, TSH #### [facility] [address] [place] [address] Dr. Julisa Lowe ECHOCARDIO M/2D COMPLETEon 0 12-04-2021 ECHOCARDIO M/2D COMPLETE Patient: ROBINA RON Exam Date: 12/04/2021 : 1950 Gender:F Ordering : SHAIKH Chaparrita SPARKS . Admission #: [id number] Family : Order #: [id number] CLICK HERE TO VIEW EXAM ECHOCARDIOGRAM REPORT [...] Area(A4C): 21.50 cm2 Left Atrium Systolic Volume(A2C): 83685 mm3 Left Atrium Systolic Volume(A4C): 73072 mm3 Mitral Valve MV E to A [...] M.D. on 12/04/2021 at 18:31 Normal [facility] CBC AUTO DIFFon 09-10-2021 BASO # 0.1 103/ul Normal 0.0-0.1 [facility] Comment on above: Performed By: #### S EDR #### [facility] [address] [place] [address] Dr. Julisa Lowe Basophils/100 WBC (Bld) 0.4 % Normal 0.2-2.0 [facility] Comment on above: Performed By: #### S EDR #### [facility] [address] [place] [address] Dr. Julisa Lowe EO # 0.2 103/ul Normal 0.0-0.7 [facility] Comment on above: Performed By: #### S EDR #### [facility] [address] [place] [address] Dr. Julisa Lowe Eosinophils/100 WBC (Bld) 1.2 % Normal 0.9-7.0 [facility] Comment on above: Performed By: #### S EDR #### [facility] [address] [place] [address] Dr. Julisa Lowe Erythrocyte distribution width (RBC) [Ratio] 17.8 % Critically high 11.0-15.0 [facility] Comment on above: Performed By: #### S EDR #### [facility] [address] [place] [address] Dr. Julisa Lowe Hematocrit (Bld) [Volume fraction] 36.6 % Normal 36.0-48.0 [facility] Comment on above: Performed By: #### S EDR #### [facility] [address] [place] [address] Dr. Julisa Lowe Hemoglobin (Bld) [Mass/Vol] 10.1 g/dL Critically low 12.0-16.0 [facility] Comment on above: Performed By: #### S EDR #### [facility] [address] [place] [address] Dr. Julisa Lowe IG # 0.08 10e3/ul Critically high 0.00-0.03 [facility] Comment on above: Performed By: #### S EDR #### [facility] [address] [place] [address] Dr. Julisa Lowe IG % 0.6 % Critically high 0.0-0.5 [facility] Comment on above: Performed By: #### S EDR #### [facility] [address] [place] [address] Dr. Julisa Lowe LYMPH # 3.1 103/ul Normal 1.2-3.8 [facility] Comment on above: Performed By: #### S EDR #### [facility] [address] [place] [address] Dr. Julisa Lowe Lymphocytes/100 WBC (Bld) 23.2 % Normal 20.5-60.0 [facility] Comment on above: Performed By: #### S EDR #### [facility] [address] [place] [address] Dr. Julisa Lowe MANUAL DIFF REQ NO Normal [facility] Comment on above: Performed By: #### S EDR #### [facility] [address] [address] [address] Julisa Lowe MCH (RBC) [Entitic mass] 20.9 pg Critically low 26.7-34.0 [facility] Comment on above: Performed By: #### S EDR #### [facility] [address] [place] [address] Dr. Julisa Lowe MCHC (RBC) [Mass/Vol] 27.6 g/dL Critically low 29.9-35.2 [facility] Comment on above: Performed By: #### S EDR #### [facility] [address] [place] [address] Dr. Julisa Lowe MCV (RBC) [Entitic vol] 75.8 fL Critically low 81.0-99.0 [facility] Comment on above: Performed By: #### S EDR #### [facility] [address] [place] [address] Dr. Julisa Lowe MONO # 0.7 103/ul Normal 0.3-0.8 [facility] Comment on above: Performed By: #### S EDR #### [facility] [address] [place] [address] Dr. Julisa Lowe Monocytes/100 WBC (Bld) 5.1 % Normal 1.7-12.0 [facility] Comment on above: Performed By: #### S EDR #### [facility] [address] [place] [address] Dr. Julisa Lowe NEUT # 9.3 103/ul Critically high 1.4-6.5 [facility] Comment on above: Performed By: #### S EDR #### [facility] [address] [place] [address] Dr. Julisa Lowe Neutrophils/100 WBC (Bld) 69.5 % Normal 43.0-75.0 [facility] Comment on above: Performed By: #### S EDR #### [facility] [address] [place] [address] Dr. Julisa Lowe Platelet mean volume (Bld) [Entitic vol] 8.2 fL Critically low 9.5-13.5 [facility] Comment on above: Performed By: #### S EDR #### [facility] [address] [address] [address] Julisa Lowe PLT 303 103/ul Normal 150-450 [facility] Comment on above: Performed By: #### S EDR #### [facility] [address] [address] [address] Julisa Lowe RBC 4.83 106/ul Normal 4.20-5.40 [facility] Comment on above: Performed By: #### S EDR #### [facility] [address] [address] [address] Julisa Lowe WBC 13.4 103/ul Critically high 4.0-11.0 [facility] Comment on above: Performed By: #### S EDR #### [facility] [address] [address] [address] Julisa Lowe GLYCOHEMOGLOBIN A1Con 2020 ADA RECOMMENDATION ADA THERAPEUTIC TARGET 6.0 - 7.0 ACTION SUGGESTED > 7.0 Normal [facility] Comment on above: Performed By: #### A 1C #### [facility] [address] [address] [address] Julisa Lowe Glucose [Mass/Vol] 151 mg/dL Normal [facility] Comment on above: Performed By: #### A 1C #### [facility] [address] [address] [address] Julisa Lowe HbA1c (Bld) [Mass fraction] 6.9 % Critically high <=6.0 [facility] Comment on above: Performed By: #### A 1C #### [facility] [address] [address] [address] Julisa Lowe LIPID PROFILEon 09-10-2021 CHOL-HDL RATIO NORM SEE BELOW Normal [facility] Comment on above: Result Comment: 3.3 - 4.4 LOW RISK 4.4 - 7.1 AVERAGE RISK 7.1 - 11.0 MODERATE RISK >11.0 HIGH RISK Performed By: #### A 1C #### [facility] [address] [place] [address] Dr. Julisa Lowe Cholesterol [Mass/Vol] 121 mg/dL Normal <=200 [facility] Comment on above: Performed By: #### A 1C #### [facility] [address] [address] [address] Julisa Lowe Cholesterol in HDL [Mass/Vol] 55 mg/dL Normal [facility] Comment on above: Performed By: #### A 1C #### [facility] [address] [address] [address] Julisa Lowe Cholesterol in LDL [Mass/Vol] 46.8 mg/dL Normal [facility] Comment on above: Performed By: #### A 1C #### [facility] [address] [place] [address] Dr. Julisa Lowe Cholesterol.total/Chol esterol in HDL [Mass ratio] 2.2 {ratio} Normal [facility] Comment on above: Performed By: #### A 1C #### [facility] [address] [place] [address] Dr. Julisa Lowe HDL NORMAL > or = 60 mg/dl - LO W CARDIOVASCULAR RISK <40 mg/dl - HIGH CARDIOVASCULAR RISK Normal [facility] Comment on above: Performed By: #### A 1C #### [facility] [address] [place] [address] Dr. Julisa Lowe LDL CALC NORMAL SEE BELOW Normal [facility] Comment on above: Result Comment: <100 mg/dl OPTIMAL 100 - 129 mg/dl NEAR OR ABOVE OPTIMAL 130 - 159 mg/dl BORDERLINE HIGH 160 - 189 mg/dl HIGH >190 mg/dl VERY HIGH Performed By: #### A 1C #### [facility] [address] [place] [address] Dr. Julisa Lowe Triglyceride [Mass/Vol] 96 mg/dL Normal <=150 [facility] Comment on above: Performed By: #### A 1C #### [facility] [address] [place] [address] Dr. Julisa Lowe VLDL CALC 19.2 mg/dL Normal [facility] Comment on above: Performed By: #### A 1C #### [facility] [address] [place] [address] Dr. Julisa Lowe MICROALBUMIN, RAND URon 12- mALB 33.4 mg/L Critically high <=30.0 [facility] Comment on above: Performed By: #### S EDR #### [facility] [address] [place] [address] Dr. Julisa Lowe PROF 14(COMP METB)on 021 Albumin [Mass/Vol] 3.4 g/dL Critically low 3.5-5.0 [facility] Comment on above: Performed By: #### A 1C #### [facility] [address] [place] [address] Dr. Julisa Lowe Albumin/Globulin [Mass ratio] 1.3 {ratio} Normal [facility] Comment on above: Performed By: #### A 1C #### [facility] [address] [place] [address] Dr. Julisa Lowe ALP [Catalytic activity/Vol] 74 U/L Normal 38-126 [facility] Comment on above: Performed By: #### A 1C #### [facility] [address] [place] [address] Dr. Julisa Lowe ALT [Catalytic activity/Vol] 11 U/L Normal 9-52 [facility] Comment on above: Performed By: #### A 1C #### [facility] [address] [place] [address] Dr. Julisa Lowe Anion gap [Moles/Vol] 18.2 mmol/L Normal [facility] Comment on above: Performed By: #### A 1C #### [facility] [address] [place] [address] Dr. Julisa Lowe AST [Catalytic activity/Vol] 12 U/L Critically low 14-36 [facility] Comment on above: Performed By: #### A 1C #### [facility] [address] [place] [address] Dr. Julisa Lowe Bilirubin [Mass/Vol] 0.3 mg/dL Normal 0.2-1.3 [facility] Comment on above: Performed By: #### A 1C #### [facility] [address] [place] [address] Dr. Julisa Lowe Calcium [Mass/Vol] 9.3 mg/dL Normal 8.4-10.2 [facility] Comment on above: Performed By: #### A 1C #### [facility] [address] [place] [address] Dr. Julisa Lowe Chloride [Moles/Vol] 105 mmol/L Normal 98-107 [facility] Comment on above: Performed By: #### A 1C #### [facility] [address] [place] [address] Dr. Julisa Lowe Creatinine [Mass/Vol] 0.62 mg/dL Normal 0.52-1.04 [facility] Comment on above: Performed By: #### A 1C #### [facility] [address] [place] [address] Dr. Julisa Lowe EGFR-AF LIBYAN >60 Normal >=60 [facility] Comment on above: Performed By: #### A 1C #### [facility] [address] [place] [address] Dr. Julisa Lowe EGFR-NON AF LIBYAN >60 Normal >=60 [facility] Comment on above: Performed By: #### A 1C #### [facility] [address] [place] [address] Dr. Julisa Lowe Globulin (S) [Mass/Vol] 2.7 g/dL Normal [facility] Comment on above: Performed By: #### A 1C #### [facility] [address] [place] [address] Dr. Julisa Lowe Glucose [Mass/Vol] 134 mg/dL Critically high 74-106 [facility] Comment on above: Performed By: #### A 1C #### [facility] [address] [place] [address] Dr. Julisa Lowe Potassium [Moles/Vol] 4.3 mmol/L Normal 3.4-5.0 [facility] Comment on above: Performed By: #### A 1C #### [facility] [address] [place] [address] Dr. Julisa Lowe Protein [Mass/Vol] 6.1 g/dL Normal 6.1-8.2 [facility] Comment on above: Performed By: #### A 1C #### [facility] [address] [address] [address] Julisa Lowe Sodium [Moles/Vol] 142 mmol/L Normal 137-145 [facility] Comment on above: Performed By: #### A 1C #### [facility] [address] [address] [address] Julisa Lowe Urea nitrogen [Mass/Vol] 23.0 mg/dL Critically high 7.0-17.0 [facility] Comment on above: Performed By: #### A 1C #### [facility] [address] [address] [address] Julisa Lowe Urea nitrogen/Creatinine [Mass ratio] 37.1 mg/mg Normal [facility] Comment on above: Performed By: #### A 1C #### [facility] [address] [place] [address] Dr. Julisa Lowe [facility] SARS-CoV-2 (COVID-19) RNA CHALINO+probe Ql (Unsp spec) Not detected Normal NOT DETECTED [facility] Comment on above: Result Comment: This test is not yet approved or cleared by the [place] FDA. When there are no FDA-approved or cleared tests available, and other criteria are met, FDA can make tests available under an emergency access mechanism called an Emergency Use Authorization (EUA). The EUA for this test is supported by the [employer] Worker of Health and Human Service's (HHS's) declaration [...] consistent with SARS-CoV-2. Performed By: #### C VDTBH #### [facility] [address] [place] [address] Dr. Julisa Lowe Vital Signs Date Time Vital Sign Value Performing Clinician Facility 11-02-2024 08:50-0500 Body height 154.9 cm Tj Ramirez [employer] Work Phone: [facility] 11-02-2024 08:50-0500 Body mass index (BMI) [Ratio] 24.94 kg/m2 Tj Ramirez [employer] OPERATOR Work Phone: [facility] 11-02-2024 08:50-0500 Body temperature 97.59 [degF] Tj Ramirez [employer]INE OPERATOR Work Phone: [facility] 11-02-2024 08:50-0500 Body weight 59.88 kg Tj Ramirez [employer]INE OPERATOR Work Phone: [facility] 11-02-2024 08:50-0500 Diastolic blood pressure 66 mm[Hg] Tj Ramirez [employer]INE OPERATOR Work Phone: [facility] 11-02-2024 08:50-0500 Heart rate 81 /min Tj Ramirez [employer] OPERATOR Work Phone: [facility] 11-02-2024 08:50-0500 Respiratory rate 18 /min Tj Ramirez [employer] M[employer]INE OPERATOR Work Phone: [facility] 11-02-2024 08:50-0500 SaO2% (BldA) [Mass fraction] 99 % Tj Ramirez [employer]INE OPERATOR Work Phone: [facility] 11-02-2024 08:50-0500 Systolic blood pressure 102 mm[Hg] Tj Ramirez [employer] M[employer]INE OPERATOR Work Phone: [facility] 10-18-2024 10:34-0500 Body height 154.9 cm Christopher Garrett MD Work Phone: [facility] 10-18-2024 10:34-0500 Body mass index (BMI) [Ratio] 25.51 kg/m2 Christopher Garrett MD Work Phone: [facility] 10-18-2024 10:34-0500 Body weight 61.24 kg Christopher Garrett MD Work Phone: [facility] 10-18-2024 10:34-0500 Diastolic blood pressure 60 mm[Hg] Christopher Garrett MD Work Phone: [facility] 10-18-2024 10:34-0500 Heart rate 84 /min Christopher Garrett MD Work Phone: [facility] 10-18-2024 10:34-0500 Respiratory rate 18 /min Christopher Garrett MD Work Phone: [facility] 10-18-2024 10:34-0500 SaO2% (BldA) [Mass fraction] 97 % Christopher Garrett MD Work Phone: [facility] 10-18-2024 10:34-0500 Systolic blood pressure 90 mm[Hg] Christopher Garrett MD Work Phone: [facility] 08-15-2024 09:45-0500 Body height 154.9 cm Christopher Garrett MD Work Phone: [facility] 08-15-2024 09:45-0500 Body mass index (BMI) [Ratio] 24.75 kg/m2 Christopher Garrett MD Work Phone: [facility] 08-15-2024 09:45-0500 Body weight 59.42 kg Christopher Garrett MD Work Phone: [facility] 08-15-2024 09:45-0500 Diastolic blood pressure 56 mm[Hg] Christopher Garrett MD Work Phone: [facility] 08-15-2024 09:45-0500 Heart rate 87 /min Christopher Garrett MD Work Phone: [facility] 08-15-2024 09:45-0500 Respiratory rate 18 /min Christopher Garrett MD Work Phone: [facility] 08-15-2024 09:45-0500 Systolic blood pressure 96 mm[Hg] Christopher Garrett MD Work Phone: [facility] 08-01-2024 09:58-0500 Body height 154.9 cm Tj Ramirez METALLIC YARN SLITTING MACHINE OPERATOR Work Phone: [facility] 08-01-2024 09:58-0500 Body mass index (BMI) [Ratio] 24.83 kg/m2 Tj Ramirez METALLIC YARN SLITTING MACHINE OPERATOR Work Phone: [facility] 08-01-2024 09:58-0500 Body temperature 96.69 [degF] Tj Ramirez METALLIC YARN SLITTING MACHINE OPERATOR Work Phone: [facility] 08-01-2024 09:58-0500 Body weight 59.6 kg Tj Ramirez METALLIC YARN SLITTING MACHINE OPERATOR Work Phone: [facility] 08-01-2024 09:58-0500 Diastolic blood pressure 80 mm[Hg] Tj Ramirez METALLIC YARN SLITTING MACHINE OPERATOR Work Phone: [facility] 08-01-2024 09:58-0500 Heart rate 85 /min Tj Ramirez METALLIC YARN SLITTING MACHINE OPERATOR Work Phone: [facility] 08-01-2024 09:58-0500 Respiratory rate 18 /min Tj Ramirez METALLIC YARN SLITTING MACHINE OPERATOR Work Phone: [facility] 08-01-2024 09:58-0500 Systolic blood pressure 132 mm[Hg] Tj Ramirez METALLIC YARN SLITTING MACHINE OPERATOR Work Phone: [facility] 05-09-2024 09:03-0400 Diastolic blood pressure 72 mm[Hg] Shante Orzech [facility] 05-09-2024 09:03-0400 Heart rate 90 /min Shante Orzech [facility] 05-09-2024 09:03-0400 Systolic blood pressure 109 mm[Hg] Shante Orzech [facility] 05-03-2024 10:20-0400 Body height 154.9 cm Tj Ramirez METALLIC YARN SLITTING MACHINE OPERATOR Work Phone: [facility] 05-03-2024 10:20-0400 Body mass index (BMI) [Ratio] 26.64 kg/m2 Tj Ramirez METALLIC YARN SLITTING MACHINE OPERATOR Work Phone: [facility] 05-03-2024 10:20-0400 Body temperature 97 [degF] Tj Ramirez METALLIC YARN SLITTING MACHINE OPERATOR Work Phone: [facility] 05-03-2024 10:20-0400 Body weight 63.96 kg Tj Ramirez METALLIC YARN SLITTING MACHINE OPERATOR Work Phone: [facility] 05-03-2024 10:20-0400 Diastolic blood pressure 68 mm[Hg] Tj Ramirez METALLIC YARN SLITTING MACHINE OPERATOR Work Phone: [facility] 05-03-2024 10:20-0400 Heart rate 82 /min Tj Ramirez METALLIC YARN SLITTING MACHINE OPERATOR Work Phone: [facility] Comment on above: 100% O2 05-03-2024 10:20-0400 Systolic blood pressure 110 mm[Hg] Tj Ramirez METALLIC YARN SLITTING MACHINE OPERATOR Work Phone: [facility] 02-29-2024 10:35-0400 Blood Pressure Location Shante Orzech [facility] 02-29-2024 10:35-0400 Diastolic blood pressure 78 mm[Hg] Shante Orzech [facility] 02-29-2024 10:35-0400 Heart rate 68 /min Shante Orzech [facility] 02-29-2024 10:35-0400 Respiratory rate 16 /min Shante Orzech [facility] 02-29-2024 10:35-0400 Systolic blood pressure 132 mm[Hg] Shante Schmittzeyovani [facility] 05-12-2022 15:00-0400 Diastolic blood pressure 49 mm[Hg] Chair Hilda Work Phone: [facility] 05-12-2022 15:00-0400 Heart rate 98 /min Chair Hilda Work Phone: [facility] 05-12-2022 15:00-0400 SaO2% (BldA) [Mass fraction] 95 % Chair Binger Work Phone: [facility] 05-12-2022 15:00-0400 Systolic blood pressure 137 mm[Hg] Chair Hilda Work Phone: [facility] 05-12-2022 13:30-0400 Body temperature 98.6 [degF] Chair Hilda Work Phone: [facility] 05-12-2022 10:15-0400 Diastolic blood pressure 87 mm[Hg] MD Hood Patel Work Phone: [facility] 05-12-2022 10:15-0400 Heart rate 82 /min MD Hood Patel Work Phone: [facility] 05-12-2022 10:15-0400 Respiratory rate 16 /min MD Hood Patel Work Phone: [facility] 05-12-2022 10:15-0400 SaO2% (BldA) [Mass fraction] 100 % MD Hood Patel Work Phone: [facility] 05-12-2022 10:15-0400 Systolic blood pressure 149 mm[Hg] MD Hood Patel Work Phone: [facility] 05-12-2022 07:54-0400 Body height 154.94 cm MD Hood Patel Work Phone: [facility] 05-12-2022 07:54-0400 Body weight 53.52 kg MD Hood Patel Work Phone: [facility] 05-06-2022 14:29-0400 Body temperature 99 [degF] Chair Binger Work Phone: [facility] 05-06-2022 14:29-0400 Diastolic blood pressure 51 mm[Hg] Chair Binger Work Phone: [facility] 05-06-2022 14:29-0400 Heart rate 93 /min Chair Hilda Work Phone: [facility] 05-06-2022 14:29-0400 Respiratory rate 16 /min Chair Binger Work Phone: [facility] 05-06-2022 14:29-0400 SaO2% (BldA) [Mass fraction] 98 % Chair Hilda Work Phone: [facility] 05-06-2022 14:29-0400 Systolic blood pressure 129 mm[Hg] Chair Hilda Work Phone: [facility] 04-28-2022 10:47-0400 Body temperature 98.91 [degF] Chair Binger Work Phone: [facility] 04-28-2022 10:47-0400 Diastolic blood pressure 64 mm[Hg] Chair Binger Work Phone: [facility] 04-28-2022 10:47-0400 Heart rate 88 /min Chair Binger Work Phone: [facility] 04-28-2022 10:47-0400 Respiratory rate 18 /min Chair Hilda Work Phone: [facility] 04-28-2022 10:47-0400 SaO2% (BldA) [Mass fraction] 98 % Chair Binger Work Phone: [facility] 04-28-2022 10:47-0400 Systolic blood pressure 122 mm[Hg] Chair Hilda Work Phone: [facility] 04-22-2022 14:02-0400 Body temperature 99 [degF] Chair Binger Work Phone: [facility] 04-22-2022 14:02-0400 Diastolic blood pressure 56 mm[Hg] Chair Binger Work Phone: [facility] 04-22-2022 14:02-0400 Heart rate 95 /min Chair Binger Work Phone: [facility] 04-22-2022 14:02-0400 Respiratory rate 18 /min Chair Hilda Work Phone: [facility] 04-22-2022 14:02-0400 SaO2% (BldA) [Mass fraction] 96 % Chair Hilda Work Phone: [facility] 04-22-2022 14:02-0400 Systolic blood pressure 123 mm[Hg] Chair Hilda Work Phone: [facility] 10-14-2021 14:15-0500 Body height 154.94 cm Lawanda Olexa Other [facility] Other 10-14-2021 14:15-0500 Body mass index (BMI) [Ratio] 22.26 kg/m2 Lawanda Olexa Other [facility] Other 10-14-2021 14:15-0500 Body weight 53.43 kg Lawanda Olexa Other [facility] Other Encounters Encounter Date Encounter Type Care Provider Facility Start: 11-02-2024 End: 11-02-2024 Bamboo flowsheet Tj Ramirez METALLIC YARN SLITTING MACHINE OPERATOR Work Phone: [facility] Start: 11-02-2024 End: 11-02-2024 Gregboo flowsheet Tj Ramirez METALLIC YARN SLITTING MACHINE OPERATOR Work Phone: [facility] Start: 11-02-2024 End: 11-02-2024 Office outpatient visit 15 minutes Tj Ramirez METALLIC YARN SLITTING MACHINE OPERATOR Work Phone: [facility] Comment on above: Mixed hyperlipidemia (CMS/HCC) (Primary Dx); Primary hypertension (CMS/HCC); Type 2 diabetes mellitus with stage 3a chronic kidney disease, with long-term current use of insulin (HCC) (CMS/HCC) Start: 11-02-2024 End: 11-02-2024 ambulatory TJ RAMIREZ Not Available Start: 10-18-2024 End: 10-18-2024 Bamboo flowsheet Christopher Garrett MD Work Phone: [facility] Start: 10-18-2024 End: 10-18-2024 Bamboo flowsheet Christopher Garrett MD Work Phone: [facility] Start: 10-18-2024 End: 10-18-2024 Office outpatient visit 25 minutes Christopher Garrett MD Work Phone: [facility] Comment on above: Diabetic autonomic n europathy associated with type 2 diabetes mellitus (CMS/HCC) (Primary Dx); Mixed hyperlipidemia (CMS/HCC); Primary hypertension (CMS/HCC); Encounter for dietary consultation; Vitamin D deficiency; Hypoglycemia; Microalbuminuria Start: 10-18-2024 End: 10-18-2024 ambulatory CHRISTOPHER GARRETT Not Available Start: 10-14-2024 End: 10-14-2024 Clinisync Result Encounter Generic External Data Provider [facility] External Department Unsolicited Start: 10-14-2024 End: 10-14-2024 Clinisync Result Encounter Generic External Data Provider [facility] External Department Unsolicited Start: 08-15-2024 End: 08-15-2024 Ashli flowsken Garrett MD Work Phone: [facility] Start: 08-15-2024 End: 08-15-2024 Bamboo flowsheet Christopher Garrett MD Work Phone: [facility] Start: 08-15-2024 End: 08-15-2024 Office outpatient new 45 minutes Christopher Garrett MD Work Phone: [facility] Comment on above: Type 2 diabetes [...] Not Available Start: 08-04-2024 End: 08-04-2024 ambulatory [facility] Start: 08-01-2024 End: 08-01-2024 Bamboo flowsheet Tj Ramirez METALLIC YARN SLITTING MACHINE OPERATOR Work Phone: [facility] Start: 08-01-2024 End: 08-01-2024 Bamboo flowsheet Tj Ramirez METALLIC YARN SLITTING MACHINE OPERATOR Work Phone: [facility] Start: 08-01-2024 End: 08-01-2024 Office outpatient visit 15 minutes Tj Ramirez METALLIC YARN SLITTING MACHINE OPERATOR Work Phone: [facility] Comment on above: Type 2 diabetes rosemary itus with stage 3a chronic kidney disease, with long-term current use of insulin (HCC) (CMS/HCC) (Primary Dx); Type 2 diabetes mellitus with diabetic autonomic (poly)neuropathy (CMS/HCC); Chronic obstructive pulmonary disease, unspecified COPD type (CMS/HCC); Need for immunization against influenza; Primary hypertension (CMS/HCC) Start: 08-01-2024 End: 08-01-2024 ambulatory TJ NUNESZPATRICK Not Available Start: 07-27-2024 End: 07-27-2024 Orders Only Tj Nuneszpatrick METALLIC YARN SLITTING MACHINE OPERATOR Work Phone: [facility] Comment on above: Type 2 diabetes rosemary itus with stage 3a chronic kidney disease, with long-term current use of insulin (HCC) (CMS/HCC) (Primary Dx) Start: 07-17-2024 End: 07-17-2024 Telephone encounter Alondra Erika METALLIC YARN SLITTING MACHINE OPERATOR Work Phone: [facility] Start: 07-13-2024 End: 07-13-2024 ambulatory Shante X Orzech Facility:[facility] Start: 07-13-2024 End: 07-13-2024 Patient encounter procedure Shante X Orzech [facility] Start: 05-23-2024 End: 06-05-2024 Clinisync Result Encounter [...] 05-09-2024 Lab Drop off Shante X Orzech [facility] Start: 05-09-2024 End: 05-09-2024 ambulatory Shante X Orzech Facility:[facility] Start: 05-09-2024 End: 05-09-2024 Patient encounter procedure Shante X Orzech [facility] Start: 05-08-2024 End: 05-08-2024 Clinisync Result Encounter Tj Diazk METALLIC YARN SLITTING MACHINE OPERATOR Work Phone: [facility] External [facility] Unsolicited Start: 05-08-2024 End: 05-08-2024 Clinisync Result Encounter Tj Ramirez METALLIC YARN SLITTING MACHINE OPERATOR Work Phone: [facility] External Department Unsolicited Start: 05-08-2024 End: 05-09-2024 ambulatory [facility] Start: 05-03-2024 End: 05-03-2024 Bamboo flowsheet Tj Ramirez METALLIC YARN SLITTING MACHINE OPERATOR Work Phone: [facility] Start: 05-03-2024 End: 05-03-2024 Bamboo flowsheet Tj Ramirez METALLIC YARN SLITTING MACHINE OPERATOR Work Phone: [facility] Start: 05-03-2024 End: 05-03-2024 Office outpatient visit 25 minutes Tj Ramirez METALLIC YARN SLITTING MACHINE OPERATOR Work Phone: [facility] Comment on above: Primary hypertension [...] Not Available Start: 03-14-2024 End: 03-14-2024 ambulatory [facility] Start: 02-29-2024 End: 02-29-2024 ambulatory Shante X Orzech Facility:[facility] Start: 02-29-2024 End: 02-29-2024 Lab Drop off Shante X Orzech [facility] Start: 02-29-2024 End: 02-29-2024 ambulatory Shante X Orzech Facility:[facility] Start: 02-29-2024 End: 02-29-2024 Patient encounter procedure Shante X Orzech [facility] Start: 01-04-2024 End: 01-04-2024 ambulatory SHAIKH CLARE Not Available Start: 08-17-2023 Patient encounter procedure Tj Ramirez NP Work Phone: [facility] Start: 06-22-2022 End: 06-23-2022 ambulatory SHAIKH Ivette SPARKS Facility: Start: 05-12-2022 End: 05-12-2022 ambulatory Chair 15 Hilda Work Phone: Hematology/Oncology Comment on above: Iron deficiency anem ia due to chronic blood loss (Primary Dx) Start: 05-07-2022 End: 05-07-2022 Patient encounter procedure MD Hood Patel Work Phone: [facility] Start: 05-06-2022 End: 05-06-2022 ambulatory Chair 14 Hilda Work Phone: Hematology/Oncology Comment on above: Iron deficiency anem ia due to chronic blood loss (Primary Dx) Start: 04-28-2022 End: 04-28-2022 ambulatory Chair 14 Hilda Work Phone: [facility]ology/Oncology Comment on above: Iron deficiency anem ia due to chronic blood loss (Primary Dx) Start: 04-22-2022 End: 04-22-2022 ambulatory Chair 13 Hilda Work Phone: [facility]ology/Oncology Comment on above: Iron deficiency anem ia due to chronic blood loss (Primary Dx) Start: 04-15-2022 End: 04-15-2022 ambulatory Hood Patel Other [facility] Other Start: 04-15-2022 Telephone encounter Hood Obrien ck [facility] Start: 04-14-2022 Telephone encounter Christy jefferson RN Work Phone: Hematology/Oncology Comment on above: Critical Results (Gl ucose) Start: 04-14-2022 End: 04-14-2022 ambulatory Chair 15 Hilda Work Phone: [facility]ology/Oncology Comment on above: Iron deficiency anem ia due to chronic blood loss (Primary Dx); Controlled type 2 diabetes mellitus without complication, unspecified whether predatory animal exterminator insulin use (HCC) Start: 04-08-2022 End: 04-09-2022 ambulatory WATERS H FAWWAD Facility:[facility] Start: 04-06-2022 Telephone encounter Christi lópez MD [facility] Comment on above: Appointment Confirma tion Start: [...] 10-14-2021 End: 10-14-2021 ambulatory Lawanda Alvarez Other [employer] Other Start: 10-14-2021 Office outpatient ne w 30 minutes Lawanda Alvarez [facility] Start: 09-10-2021 End: 09-11-2021 ambulatory WATERS H FAWWAD Facility:[facility] Start: 08-16-2021 Encounter for preprocedural laboratory examination DR LJ BRENNAN [facility] Start: 08-13-2021 End: 08-13-[address] LJ BRENNAN Facility:[facility] Start: 08-12-2021 End: 08-13-2021 ambulatory WATERS Ivette SPARKS Facility:[facility] Start: 08-12-2021 End: 08-13-2021 Encounter for preprocedural laboratory examination SHAIKH Ivette SPARKS Facility:[facility] Procedures Date Procedure Procedure Detail Performing Clinician Start: 10-18-2024 Gluc bld gluc mntr d ev cleared fda spec home use Christopher Garrett MD Work Phone: Start: 10-14-2024 TB MICROALB CREAT R ATIO RANDOM Generic External Data Provider Start: 08-15-2024 Gluc bld gluc mntr d ev cleared fda spec home use Christopher Garrett MD Work Phone: Start: 08-01-2024 Hemoglobin glycosylated a1c Tj Ramirez METALLIC YARN SLITTING MACHINE OPERATOR Work Phone: Start: 05-23-2024 FACTOR V LEIDEN MUTATION Generic External Data Provider Start: 05-17-2024 PROTEIN C-FUNCTIONAL Ge neric External Data Provider Start: 05-17-2024 PROTEIN S-ANTIGEN Gener ic External Data Provider Start: 05-17-2024 PROTEIN S-FUNCTIONAL Ge neric External Data Provider Start: 05-08-2024 ALL CBC WITH AUTO DIFF Tj Diazk METALLIC YARN SLITTING MACHINE OPERATOR Work Phone: Start: 03-08-2024 Mammography Tj sainz METALLIC YARN SLITTING MACHINE OPERATOR Work Phone: Start: 04-14-2022 Gluc bld gluc mntr d ev cleared fda spec home use [facility] Provider Start: 09-13-2020 End: 09-13-2020 Colonoscopy Shante Orzech Start: 04-22-2017 Cystourethroscopy wi dilation of urethral stricture Shante Orzech Comment on above: 01/09/2019 Back structure, excl uding neck (body structure) Shante Orzech Cataract (disorder) Shante O rzech Cholecystectomy Shante Orzec h Hysterectomy Shante Orzech Tonsillectomy Shante Orzech Plan of Treatment Date Care Activity Detail Author Start: 09-13-2030 Screening for malignant neoplasm of colon [facility] Start: 10-16-2025 Urine screening for protein Diabetes: Urine Protein Screening [facility] Start: 05-08-2025 Urine screening for protein Diabetes: Urine Protein Screening [facility] Start: 04-14-2025 DIABETES SCREEN DIABETES SCREEN [facility] Start: 03-08-2025 Screening for malignant neoplasm of breast Mammogram [facility] Start: 02-21-2025 End: 02-21-2025 Patient encounter procedure 02/21/2025 10:50 AM EDT Office Visit [facility] [address] [place] [address] Christopher Garrett MD [address] [place] [address] [facility] Start: 02-13-2025 Hemoglobin A1c measurement Diabetes: Hemoglobin A1C [facility] Start: 01-30-2025 End: 01-30-2025 Patient encounter procedure 01/30/2025 10:00 AM EDT Office Visit [facility] [address] [place] [id number] Tj Ramirez, JOSE [address] [place] [address] [facility] Start: 01-29-2025 Hemoglobin A1c measurement Diabetes: Hemoglobin A1C [facility] Start: 11-02-2024 End: 11-02-2024 Patient encounter procedure [facility] Comment on above: Arrived Start: 10-18-2024 End: 10-18-2024 Patient encounter procedure [facility] Comment on above: Diabetic autonomic neuropathy associated with type 2 diabetes mellitus ([facility]/HCC) Start: 09-13-2024 Glaucoma screening Diabetes: Retinopathy Screening [facility] Start: 08-17-2024 Medicare Annual Wellness (AWV) Medicare Annual Wellness (AWV) [facility] Start: 08-15-2024 End: 08-15-2025 25-hydroxyvitamin D3 [Mass/volume] in Serum or Plasma Vitamin D 25 hydroxy Total Lab Routine Type 2 diabetes mellitus with diabetic autonomic (poly)neuropathy (CMS/HCC) Expected: 08/15/2024 (Approximate), Expires: 08/15/2025 [facility] Comment on above: Expected: 08/15/2024 (Approximate), Expi res: 08/15/2025 Start: 08-15-2024 End: 08-15-2025 C-peptide C-peptide Lab Routine Type 2 diabetes mellitus with diabetic autonomic (poly)neuropathy (CMS/HCC) Expected: 08/15/2024 (Approximate), Expires: 08/15/2025 [facility] Work Phone: Comment on above: Expected: 08/15/2024 (Approximate), Expi res: 08/15/2025 Start: 08-15-2024 End: 08-15-2025 Lipid 1996 panel - Serum or Plasma Lipid panel Lab Routine Type 2 diabetes mellitus with diabetic autonomic (poly)neuropathy (CMS/HCC) Expected: 08/15/2024 (Approximate), Expires: 08/15/2025 [facility] Comment on above: Expected: 08/15/2024 (Approximate), Expi res: 08/15/2025 Start: 08-15-2024 End: 08-15-2025 Microalbumin/Creatinine panel in random Urine Microalbumin / creatinine urine ratio Lab Routine Type 2 diabetes mellitus with diabetic autonomic (poly)neuropathy (CMS/HCC) Expected: 08/15/2024 (Approximate), Expires: 08/15/2025 [facility] Comment on above: Expected: 08/15/2024 (Approximate), Expi res: 08/15/2025 Start: 08-15-2024 End: 08-15-2025 Renal function panel Renal function panel Lab Routine Type 2 diabetes mellitus with diabetic autonomic (poly)neuropathy (CMS/HCC) Expected: 08/15/2024 (Approximate), Expires: 08/15/2025 [facility] Comment on above: Expected: 08/15/2024 (Approximate), Expi res: 08/15/2025 Start: 08-15-2024 End: 08-15-2024 Patient encounter procedure [facility] Comment on above: Type 2 diabetes mellitus with hyperglyce loree, with long-term current use of insulin ([facility]); Type 2 diabetes mellitus with diabetic autonomic (poly)neuropathy ([facility]) Start: 08-12-2024 Urine screening for protein Diabetes: Urine Protein Screening [facility] Start: 08-01-2024 End: 08-01-2024 Patient encounter procedure [facility] Comment on above: Arrived Start: 07-27-2024 End: 07-27-2025 Hemoglobin A1c/Hemoglobin.total in Blood Hemoglobin A1c Lab Routine Type 2 diabetes mellitus with stage 3a chronic kidney disease, with long-term current use of insulin ([facility]) ([facility]) Expected: 07/27/2024 (Approximate), Expires: 07/27/2025 [facility] Work Phone: Comment on above: Expected: 07/27/2024 (Approximate), Expi res: 07/27/2025 Start: 07-20-2024 End: 07-20-2024 Patient encounter procedure 07/20/2024 10:20 AM EST Office Visit [facility] [address] [facility] [address] [place] [phone] Ammon Khanna DPM [phone] [facility] [address] [place] [address] [facility] Start: 06-15-2024 Hemoglobin A1c measurement Diabetes: Hemoglobin A1C [facility] Start: 06-01-2024 End: 06-01-2024 Patient encounter procedure 06/01/2024 9:20 AM EDT Office Visit [facility] [address] [facility] [address] [place] [phone] Ammon Khanna DPM [address] [facility] [address] [place] [address] [facility] Start: 05-14-2024 Influenza vaccination Influenza Vaccine (#1) [facility] Start: 05-03-2024 End: 05-03-2025 CBC W Auto Differential panel - Blood CBC and differential Lab Routine Primary hypertension ([facility]) PAF (paroxysmal atrial fibrillation) ([facility]) Type 2 diabetes mellitus with stage 3a chronic kidney disease, with long-term current use of insulin (HCC) ([facility]/HCC) Expected: 05/03/2024 (Approximate), Expires: 05/03/2025 [facility] Comment on above: Expected: 05/03/2024 (Approximate), Expi res: 05/03/2025 Start: 05-03-2024 End: 05-03-2025 Comprehensive metabolic 2000 panel - Serum or Plasma Comprehensive metabolic panel Lab Routine Primary hypertension ([facility] [facility] PAF (paroxysmal atrial fibrillation) ([facility]) Stage 3a chronic kidney disease (HCC) ([facility]) Type 2 diabetes mellitus with stage 3a chronic kidney disease, with long-term current use of insulin (HCC) ([facility]) Expected: 05/03/2024 (Approximate), Expires: 05/03/2025 [facility] Comment on above: Expected: 05/03/2024 (Approximate), Expi res: 05/03/2025 Start: 05-03-2024 End: 05-03-2025 Hemoglobin A1c/Hemoglobin.total in Blood Hemoglobin A1c Lab Routine Type 2 diabetes mellitus with stage 3a chronic kidney disease, with long-term current use of insulin (HCC) ([facility]) Expected: 05/03/2024 (Approximate), Expires: 05/03/2025 [facility] Comment on above: Expected: 05/03/2024 (Approximate), Expi res: 05/03/2025 Start: 05-03-2024 End: 05-03-2025 Lipid 1996 panel - Serum or Plasma Lipid panel Lab Routine Mixed hyperlipidemia ([facility]/HCC) Expected: 05/03/2024 (Approximate), Expires: 05/03/2025 [facility] Comment on above: Expected: 05/03/2024 (Approximate), Expi res: 05/03/2025 Start: 05-03-2024 End: 05-03-2025 Microalbumin/Creatinine panel in random Urine Microalbumin / creatinine urine ratio Lab Routine Primary hypertension ([facility]/HCC) Stage 3a chronic kidney disease (HCC) ([facility]) Type 2 diabetes mellitus with stage 3a chronic kidney disease, with long-term current use of insulin (HCC) ([facility]) Expected: 05/03/2024 (Approximate), Expires: 05/03/2025 [facility] Work Phone: Comment on above: Expected: 05/03/2024 (Approximate), Expi res: 05/03/2025 Start: 05-03-2024 End: 05-03-2024 Patient encounter procedure 05/03/2024 10:30 AM EDT Office Visit [facility] [address] [place] [address] Tj Ramirez NP [address] [place] [address] Primary hypertension (CMS/HCC) (Primary Dx); PAF (paroxysmal atrial fibrillation) (CMS/HCC); Stage 3a chronic kidney disease (HCC) (CMS/HCC); Type 2 diabetes mellitus with stage 3a chronic kidney disease, with long-term current use of insulin (HCC) (CMS/HCC); Mixed hyperlipidemia (CMS/HCC) [facility] Comment on above: Primary hypertension (CMS/HCC) (Primary Dx); PAF (paroxysmal atrial fibrillation) (CMS/HCC); Stage 3a chronic kidney disease (HCC) (CMS/HCC); Type 2 diabetes mellitus with stage 3a chronic kidney disease, with long-term current use of insulin (HCC) (CMS/HCC); Mixed hyperlipidemia (CMS/HCC) Start: 05-14-2022 Influenza vaccination INFLUENZA (#1) [facility] Start: 05-12-2022 [facility] Work Phone: Start: 05-12-2022 Esophagogastroduodenoscopy DH EGD (Not Applicable) [facility] Start: 05-12-2022 End: 05-12-2022 Admission to same day surgery center Iron deficiency anemia [facility] Start: 09-13-2021 ADVANCE DIRECTIVE DISCUSSION ADVANCE DIRECTIVE DISCUSSION [facility] Start: 09-20-2019 Pneumococcal Vaccine: 65+ Years (2 of 2 - PPSV23 or PCV20) Pneumococcal Vaccine: 65+ Years (2 of 2 - PPSV23 or PCV20) [facility] Start: 11-14-2015 BONE DENSITY BONE DENSITY [facility] Start: 11-14-1995 COLOGUARD (FIT-DNA) COLOGUARD (FIT-DNA) [facility] Start: 11-14-1995 Colonoscopy COLONOSCOPY [facility] Start: 11-14-1995 COLORECTAL CANCER SCREENING COLORECTAL CANCER SCREENING [facility] Start: 11-14-[address] COLONOGRAPHY [facility] Start: 11-14-1995 FECAL OCCULT BLOOD FECAL OCCULT BLOOD [facility] Start: 11-14-1995 LIPID SCREEN LIPID SCREEN [facility] Start: 11-14-1995 SIGMOIDOSCOPY SIGMOIDOSCOPY [facility] Start: 1990 Mammography MAMMOGRAM [facility] Start: 1969 SHINGRIX VACCINE (1 of 2) SHINGRIX VACCINE (1 of 2) [facility] Start: 1969 Urine microalbumin profile DTAP,TDAP,TD (1 - Tdap) [facility] Start: 1968 HEPATITIS C SCREENING HEPATITIS C SCREENING [facility] Start: 1962 Adult depression screening assessment DEPRESSION SCREENING [facility] Start: 1956 PNEUMOCOCCAL: 65+ (1 - PCV) PNEUMOCOCCAL: 65+ (1 - PCV) [facility] Start: 11-14-1955 COVID-19 VACCINE (#1) COVID-19 VACCINE (#1) [facility] Start: 05-16-1951 COVID-19 VACCINE (#1) COVID-19 VACCINE (#1) [facility] Start: 1950 Screening for malignant neoplasm of colon [facility] Glucose [Mass/volume ] in Serum or Plasma GLUCOSE, BLOOD (POC) Lab Routine Iron deficiency anemia due to chronic blood loss Controlled type 2 diabetes mellitus without complication, unspecified whether predatory animal exterminator insulin use (HCC) Ordered: 04/14/[address] [facility] Work Phone: Comment on above: Ordered: 04/14/2022 Patient Education Hiatal Hernia (DC) [facility] Work Phone: [facility] Immunizations Immunization Date Immunization Notes Care Provider Darío watts 08-01-2024 influenza, seasonal, injectable, preservative free Tj Ramirez MET[employer]IC YARN SLITTING MACHINE OPERATOR Work Phone: [facility] 11-11-2021 influenza virus vaccine, unspecified formulation Tj Ramirez METALLIC YARN SLITTING MACHINE OPERATOR Work Phone: [facility] 11-11-2021 Influenza, High-dose Seasonal, Quadrivalent, Preservative Free Tj Ramirez METALLIC YARN SLITTING MACHINE OPERATOR Work Phone: [facility] 05-19-2021 influenza virus vaccine, unspecified formulation Tj Ramirez METALLIC YARN SLITTING MACHINE OPERATOR Work Phone: [facility] 05-19-2021 influenza, unspecifi ed formulation Shante Orzech [facility] 01-30-2021 SARS-CoV-2 (COVID-19 ) mRNA BNT-162b2 vax Shante Orzech [facility] Comment on above: Result Comment: 2023: [id number] 01-02-2021 SARS-CoV-2 (COVID-19 ) mRNA BNT-162b2 vax Shante Orzech [facility] 05-14-2020 influenza virus vaccine, unspecified formulation Shante Orzech [facility] 05-14-2020 Influenza, High-dose Seasonal, Quadrivalent, Preservative Free Tj Ramirez METALLIC YARN SLITTING MACHINE OPERATOR Work Phone: [facility] 07-26-2019 pneumococcal conjuga te vaccine, 13 valent Tj Ramirez METALLIC YARN SLITTING MACHINE OPERATOR Work Phone: [facility] 06-28-2019 influenza virus vaccine, unspecified formulation Shante Orzech [facility] 06-28-2019 influenza, high dose seasonal, preservative-free Tj Ramirez METALLIC YARN SLITTING MACHINE OPERATOR Work Phone: [facility] 08-22-2018 influenza virus vaccine, unspecified formulation Shante Orzech [facility] 08-22-2018 influenza, seasonal, injectable Tj Ramirez METALLIC YARN SLITTING MACHINE OPERATOR Work Phone: [facility] 06-18-2016 influenza virus vaccine, unspecified formulation Tj Ramirez METALLIC YARN SLITTING MACHINE OPERATOR Work Phone: [facility] 06-18-2016 influenza, unspecifi ed formulation Shante Orzech [facility] 06-20-2015 influenza virus vaccine, unspecified formulation Shante Orzech [facility] 06-20-2015 influenza, injectabl e, quadrivalent, preservative free Tj Ramirez METALLIC YARN SLITTING MACHINE OPERATOR Work Phone: [facility] 08-27-2009 novel [id number], preservative-free, injectable Tj Ramirez METALLIC YARN SLITTING MACHINE OPERATOR Work Phone: [facility] Payers Date Payer Category Payer Medicare (Managed Care) [employer] [id number] 2022 Medicaid MEDICAID [facility] MEDICAID [id number] 2022-Present [phone] [address] [place] [address] Medicaid [id number] 2021 Medicare [facility] DUAL COMPLETE HMO SNP [id number] 2021-Present [phone] [address] [place] [address] Medicare [id number] 2021 Medicare [id number] 2019 Medicaid [id number]. [id number] 1959 Medicaid [id number] [id number] 1959 Medicare [id number] 2.16.840.1.449828.19 1959 Medicare [id number] 2.16.840.1.687915.19 1959 Private Health Insurance [id number] 1950 Unknown [id number] 2.16.840.1.880932.3.579.2. 593 1950 Unknown [id number] 2.16.840.1.101855.3.579.2. 593 1950 Unknown [id number] 2.16.840.1.491246.3.579.2. 593 1950 Unknown [id number] 2.16.840.1.601477.3.579.2. 593 1950 Unknown [id number] 2.16.840.1.974331.3.579.2. 593 1950 Unknown [id number] 2.16.840.1.288135.3.579.2. 593 1950 Unknown [id number] 2.16.840.1.115438.3.579.2. 593 1950 Unknown [id number] 2.16.840.1.394517.3.579.2. 593 1950 Unknown [id number] 2.16.840.1.807298.3.579.2. 593 1950 Unknown [id number] 2.16.840.1.177515.3.579.2. 593 1950 Unknown [id number] 2.16.840.1.596137.3.579.2. 593 1950 Unknown [id number] 2.16.840.1.664252.3.579.2. 593 1950 Unknown [id number] 2.16.840.1.780098.3.579.2. 593 1950 Unknown [id number] 2.16.840.1.552448.3.579.2. 727 1950 Unknown [id number] 2.16.840.1.587097.3.579.2. 727 1950 Unknown [id number] 2.16.840.1.751712.3.579.2. 727 1950 Unknown [id number] 2.16.840.1.467318.3.579.2. 727 1950 Unknown [id number] 2.16.840.1.276369.3.579.2. 727 1950 Unknown [id number] 2.16.840.1.835749.3.579.2. 1259 1950 Unknown [id number] 2.16.840.1.549535.3.579.2. 1259 1950 Unknown [id number] 2.16.840.1.240870.3.579.2. 1259 1950 Unknown [id number] 2.16.840.1.086253.3.579.2. 1259 1950 Unknown [id number] 2.16.840.1.513487.3.579.2. 1259 1950 Unknown [id number] 2.16.840.1.308570.3.579.2. 1259 Medicare Medicare [id number] Private Health Insurance Human [id number] Self-pay Self Pay [id number] Social History Date Type Detail Facility Start: 08-17-2023 End: 05-02-2024 Sex Assigned At [facility] Start: 03-31-2016 End: 01-04-2024 Tobacco smoking status NHIS Never smoked tobacco [facility] Start: 03-31-2016 End: 01-04-2024 Tobacco use and exposure Smokeless tobacco non-user [facility] Start: 04-14-2022 End: 04-28-2022 Alcohol intake Current non-drinker of alcohol (finding) [facility] Start: 1950 Sex Assigned At Not on file [facility] Start: 04-04-2022 End: 05-12-2022 Exposure to SARS-CoV-2 (event) Not sure [facility] Start: 1950 Sex Assigned At Female F [facility] Tobacco smoking status Never [facility] Start: 05-03-2024 End: 08-01-2024 Alcoholic beverage intake Lifetime non-drinker (finding) [facility] [...] Never true [facility] NEGATED: Highlighted rowStart: ELIOTF History of tobacco use Passive smoker [facility] Medical Equipment Procedure Code Equipment Code Equipment Origin al Text Equipment Identifier Dates [id number], [id number], [id number] Start: 05-19-2023 Goals Date Patient Goal Desired Activity /State Functional Status Date Assessment Result Facility 05-09-2024 Functional Status N/A [facility] 02-29-2024 Functional Status N/A [facility] Clinical Notes 10-14-2021 to 11-02-2024 Tj Ramirez NP - 11/02/2024 9:18 AM Sawyer Ramirez, JOSE - 11/02/2024 9:18 AM Sawyer Ramirez, JOSE - 11/02/2024 9:18 AM Sawyer Ramirez, JOSE - 11/02/2024 9:00 AM EST Note Date & Type Note Facility 11-02-2024 History of Presen t illness Narrative Associated Problem(s): Primary hypertension (CMS/HCC) Currently taking Lisinopril 5mg Metoprolol 50mg, Cardizem 240mg Checks BP at home; Averages are 120's/70's. Denies orthostatic changes, dizziness, cough, shortness of breath, swelling in extremities. Continue current regimen. Given BP log, advised pt to record BP and bring log back with them to next visit. Associated Problem(s): Mixed hyperlipidemia (CMS/HCC) Currently taking Atorvastatin 20mg Denies any myalgias. Continue current regimen. Associated Problem(s): Type 2 diabetes mellitus with stage 3a chronic kidney disease, with long-term current use of insulin (HCC) ([facility]) Currently taking Novolog 5 units TID, Tresbia 10units at bedtime Trulicity 1.5mg Farxiga 10mg Most recent labs: hemoglobin A1C 6.6% Average FSBS range from 68-150 Checks BG levels using: FreeStyle continuous glucose monitor Several episodes of hypoglycemia in the afternoons. Went to see endocrinology. Novolog was decreased to 5units TID- but pt states she misunderstood and was taking 8units TID, but was unsure which pen was discontinued and which pen she was supposed to be using. Likely the cause for the continued. hypoglycemic episodes.. Advised opt pf regimen ordered per endocrinology's note. Went over medications in thorough detail with patient. Continue current regimen as directed by Endo. Patient educated on lifestyle modifications, dietary restrictions, signs and symptoms of hypoglycemia/hyperglycemia and importance of eating regular consistent meals. Stressed upon importance of checking blood glucose at home and bring blood glucose log to appointments. All questions, concerns answered and addressed. Encouraged to call office if persistent hypoglycemia/hyperglycemia on home glucose monitoring noted. Images from the original note were not included. Subjective Patient ID: Robina Ron is a 73 y.o. female who presents for Follow-up. HPI Specialists: Cardiology- , [facility]- Urology: Dr. Shukla Oncology/Hematology- [facility]-Dr. Garrett HTN: Currently taking Lisinopril 5mg Metoprolol 50mg, Cardizem 240mg Checks BP at home; Averages are 120's/70's. Denies orthostatic changes, dizziness, cough, shortness of breath, swelling in extremities. Continue current regimen. Given BP log, advised pt to record BP and bring log back with them to next visit. HLD: Currently taking Atorvastatin 20mg Denies any myalgias. Continue current regimen. DMII: Currently taking Novolog 5 units TID, Tresbia 10units at bedtime Trulicity 1.5mg Farxiga 10mg Most recent labs: hemoglobin A1C 6.6% Average FSBS range from 68-150 Checks BG levels using: FreeStyle continuous glucose monitor Several episodes of hypoglycemia in the afternoons. Went to see endocrinology. Novolog was decreased to 5units TID- but pt states she misunderstood and was taking 8units TID, but was unsure which pen was discontinued and which pen she was supposed to be using. Likely the cause for the continued. hypoglycemic episodes.. Advised opt pf regimen ordered per endocrinology's note. Went over medications in thorough detail with patient. Continue current regimen as directed by Endo. Patient educated on lifestyle modifications, dietary restrictions, [...] feet frequently monitoring for open wounds , and also recommend yearly eye exam. Pt should attempt [...] Neurological: Negative for dizziness, tremors, syncope, weakness, light-headedness and headaches. Psychiatric/Behavioral: Negative for decreased concentration and suicidal ideas. The patient is not nervous/anxious. Hematological: Does not bruise/bleed easily. Endocrine: Negative for cold intolerance, heat intolerance, polydipsia, polyphagia and polyuria. Objective Physical Exam Vitals reviewed. Constitutional: Appearance: Normal appearance. HENT: Right Ear: Tympanic membrane normal. Left Ear: [...] soft. Musculoskeletal: General: Normal range of motion. Skin: General: Skin is warm and dry. Capillary Refill: Capillary refill takes less than 2 seconds. Neurological: Mental Status: She is alert and oriented to person, place, and time. Assessment/Plan Problem List Items Addressed This Visit Type 2 diabetes mellitus with stage 3a chronic kidney disease, with long-term current use of insulin (HCC) ([facility]) Currently taking Novolog 5 units TID, Tresbia 10units at bedtime Trulicity 1.5mg Farxiga 10mg Most recent labs: hemoglobin A1C 6.6% Average FSBS range from 68-150 Checks BG levels using: FreeStyle continuous glucose monitor Several episodes of hypoglycemia in the afternoons. Went to see endocrinology. Novolog was decreased to 5units TID- but pt states she misunderstood and was taking 8units TID, but was unsure which pen was discontinued and which pen she was supposed to be using. Likely the cause for the continued. hypoglycemic episodes.. Advised opt pf regimen ordered per endocrinology's note. Went over medications in thorough detail with patient. Continue current regimen as directed by Endo. Patient educated on lifestyle modifications, dietary restrictions, signs and symptoms of hypoglycemia/hyperglycemia and importance of eating regular consistent meals. Stressed upon importance of checking blood glucose at home and bring blood glucose log to appointments. All questions, concerns answered and addressed. Encouraged to call office if persistent hypoglycemia/hyperglycemia on home glucose monitoring noted. Mixed hyperlipidemia ([facility]/HCC) - Primary Currently taking Atorvastatin 20mg Denies any myalgias. Continue current regimen. Primary hypertension (CMS/HCC) Currently taking Lisinopril 5mg Metoprolol 50mg, Cardizem 240mg Checks BP at home; Averages are 120's/70's. Denies orthostatic changes, dizziness, cough, shortness of breath, swelling in extremities. Continue current regimen. Given BP log, advised pt to record BP and bring log back with them to next visit. Relevant Medications lisinopril 10 MG tablet documented in this encounter [facility] 10-18-2024 History of Presen t illness Narrative Robina Ron is a 73 y.o. female No ref. provider found presents with chief complaint of Diabetes and Follow-up (LAB) HPI: IM 10/2024 Follow up 10/18/2024 blood sugar 142, CGM 0 low range, 57 good range, 43 in high range, average 180, lab done vitamin-D is too low 5, C-peptide 2.7, total cholesterol 142, triglycerides 106, HDL 63, LDL 58, GFR 41, albumin over creatinine 182, currently she is on Tresiba 10 units at bedtime, NovoLog looks like she is taking 13 breakfast, 14 lunch, 15 supper, higher what I told her. HPI 08/2024 New patient sent from Tj [...] atorvastatin (LIPITOR) 20 mg, Oral, Every morning Continuous Glucose Residential Nurse (Rewards[employer]Style [place]y 3 [place]) device 1 each, Does not apply, Daily dilTIAZem CD (CARDIZEM CD) 240 mg, Oral, Daily Eliquis 5 MG tablet TAKE 1 TABLET BY MOUTH IN THE MORNING AND AT BEDTIME ergocalciferol (VITAMIN D-2) 1.25 mg, Oral, Weekly Farxiga 10 mg, Oral, Daily glucose blood (OneTouch Ultra) test strip USE TO TEST BLOOD SUGARS FOUR TIMES A DAY insulin degludec (TRESIBA FLEXTOUCH) 10 Units, Subcutaneous, Nightly insulin NPH-insulin regular (NovoLIN) (70-30) 100 UNIT/ML injection 10 Units, 2 times daily before meals insulin pen needle (B-D ULTRAFINE III SHORT PEN) 31G X 8 mm misc USE FOUR TIMES A DAY lisinopril 10 mg, Oral, Daily metoprolol tartrate (LOPRESSOR) 50 mg, Oral, Every 12 hours NovoLOG FLEXPEN 5 Units, Subcutaneous, 3 times daily before meals ondansetron (ZOFRAN) 4 mg, Every 8 hours PRN OneTouch Delica Lancets 33G misc USE FOUR TIMES A DAY WITH LANCING DEVICE. pantoprazole (PROTONIX) 40 mg, Oral, Daily traZODone [...] complication, unspecified asthma severity, unspecified whether persistent (CMS/HCC) At high risk for falls [facility]. Pt states she cannot afford the 3k it was going to cost her so she stopped. She states she knows what she is doing. He states she is not driving at this time. She would like to. Atrial fibrillation (CMS/HCC) Hx of afib, on cardizem for rate [...] Chronic obstructive pulmonary disease, unspecified COPD type ([facility]/HCC) See Dr Serrano. Stable CKD stage 3 due to type 2 diabetes mellitus (HCC) ([facility]) Cr baseline. No change. BP at goal typically FSBS reviewed and slightly above goal. Has not followed with Nephrology for quite sometime DM (diabetes mellitus) ([facility]) BUCKNER (dyspnea on exertion) BUCKNER, on minimal exertion, associated Palpitations. No prior hx of CAD/ ischemic w/u Factor V Leiden ([facility]) Pt needs a refill on her medications today. On Eliquis. NO issues with the medications. NO bleeding. Fatigue, unspecified type reports fatigue, low energy GERD (gastroesophageal reflux disease) History of CVA (cerebrovascular accident) History of hysterectomy Hyperlipidemia ([facility]) Supposed to be on Lovastatin but not [...] Right shoulder pain Secondary pulmonary arterial hypertension ([facility]/HCC) Shoulder dislocation, right, sequela Thrombosis of left saphenous vein Type 2 diabetes mellitus ([facility]) Patient was previously on Novolin 70/30 along with Trulicity and Metformin Stopped using Insulin herself as it dropped her blood glucose too low Type 2 diabetes mellitus with diabetic autonomic neuropathy, with long-term current use of insulin ([facility]) Erratic & difficult to control,Partly because of [...] LOW TRANSVERSE 1975 CHOLECYSTECTOMY 1987 LUMBAR DISCECTOMY 2015 OTHER SURGICAL HISTORY 2011 Optho check - [...] 05/08/2024 Lab Results Component Value Date GLU 142 10/18/2024 GLU 151 (H) 10/14/2024 GLU 249 08/15/2024 07/14/2023 9:02 AM 08/17/2023 3:50 PM 01/04/2024 9:18 AM 05/03/2024 10:20 AM 08/01/2024 9:58 AM 08/15/2024 9:45 AM 10/18/2024 10:34 AM Vitals BMI 28.53 kg/m2 27.49 kg/m2 27.59 kg/m2 26.64 kg/m2 24.83 kg/m2 24.75 kg/m2 25.51 kg/m2 BSA (m2) 1.72 m2 1.69 m2 1.69 m2 1.66 m2 1.6 m2 1.6 m2 1.62 m2 Systolic 116 100 118 110 132 96 90 Diastolic 70 64 60 68 80 56 60 Heart Rate 80 69 64 82 85 87 84 SpO2 96 % 97 % Temp 97 F 97.3 F 97.1 F 97 F 96.7 F Resp 18 18 18 Height (in) 5' 1 5' 1 5' 1 5' 1 5' 1 5' 1 5' 1 Weight (lb) 151 145.5 146 141 131.4 131 135 Visit Report Report Report Report Report Report ASSESSMENT AND PLAN: Assessment/Plan Diagnoses and all orders for this visit: Diabetic autonomic neuropathy associated with type 2 diabetes mellitus ([facility]/HCC) - POCT glucose manually resulted We will continue his Tresiba 10 units, decrease Humalog to 8 units every meal, continue his Farxiga 10 mg once a day, Trulicity 1.5 mg once weekly Mixed hyperlipidemia (CMS/HCC) Primary hypertension ([facility]) Encounter for dietary consultation Vitamin D deficiency - ergocalciferol (Vitamin D-2) 1.25 MG (10501 UT) capsule; Take 1 capsule (1.25 mg) by mouth 1 (one) time per week Hypoglycemia Microalbuminuria Albumin over creatinine 182 in September/2024 Follow up in about 4 months (around 02/15/2025). documented in this encounter [facility] 10-18-2024 Evaluation note Diagnosis Anemia due to chronic blood loss- Primary 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, with long-term current use of insulin (HCC) (CMS/HCC) Mixed hyperlipidemia (CMS/HCC) Mixed hyperlipidemia CLL (chronic lymphocytic leukemia) (CMS/HCC) Chronic lymphoid leukemia, without mention of having achieved remission Primary hypertension (CMS/HCC) Unspecified essential hypertension Gastroesophageal reflux disease without esophagitis Esophageal reflux Encounter for Medicare annual wellness exam Screening mammogram for breast cancer Primary hypertension (CMS/HCC)- Primary Unspecified essential hypertension PAF (paroxysmal atrial fibrillation) (CMS/HCC) Atrial fibrillation Stage 3a chronic kidney disease (HCC) (CMS/HCC) Type 2 diabetes mellitus with stage 3a chronic kidney disease, with long-term current use of insulin (HCC) (CMS/HCC) Type 2 diabetes mellitus with diabetic autonomic (poly)neuropathy ([facility]) Postural urinary incontinence Primary hypertension ([facility])- Primary Unspecified essential hypertension PAF (paroxysmal atrial fibrillation) ([facility]) Atrial fibrillation Stage 3a chronic kidney disease (HCC) ([facility]) Type 2 diabetes mellitus with stage 3a chronic kidney disease, with long-term current use of insulin (HCC) ([facility]) Mixed hyperlipidemia ([facility]) Mixed hyperlipidemia Chronic obstructive pulmonary disease, unspecified COPD type ([facility]) Gastroesophageal reflux disease without esophagitis Esophageal reflux Type 2 diabetes mellitus without complications ([facility]) Type 2 diabetes mellitus with stage 3a chronic kidney disease, with long-term current use of insulin (HCC) ([facility])- Primary Type 2 diabetes mellitus with diabetic autonomic (poly)neuropathy ([facility]) Chronic obstructive pulmonary disease, unspecified COPD type ([facility]) Need for immunization against influenza Need for prophylactic vaccination and inoculation against influenza Primary hypertension ([facility]) Unspecified essential hypertension Diabetic autonomic neuropathy associated with type 2 diabetes mellitus ([facility])- Primary Type II or unspecified type diabetes mellitus with neurological manifestations, not stated as uncontrolled Mixed hyperlipidemia ([facility]) Mixed hyperlipidemia Primary hypertension ([facility]) Unspecified essential hypertension Encounter for dietary consultation Vitamin D deficiency Hypoglycemia Hypoglycemia, unspecified Microalbuminuria Proteinuria documented in this encounter [facility] [id number] History of Present illness Narrative* Christopher Garrett MD - 08/15/2024 9:50 AM EST Robina Ron is a 73 y.o. female RamirezAparnay, * presents with chief complaint of Diabetes [...] each, 3 times daily PRN Continuous Glucose Residential Nurse (FreeStyle Toby 3 Lakeside) device 1 each, Does not apply, Daily [...] (ZOFRAN) 4 mg, Every 8 hours PRN PureVideo NetworksTouch Ultra test strip USE TO TEST ONCE [...] complication, unspecified asthma severity, unspecified whether persistent (CMS/HCC) At high risk for falls [facility]. Pt states she cannot afford the 3k it was going to cost her so shestopped. She states she knows what she is doing. He states she is not driving at this time. She would like to. Atrial fibrillation (CMS/HCC) Hx of afib, on cardizem for rate control. Used to be on Eliquis for AC that was discontinued due toGI bleed B12 deficiency Low normal levels On [...] back pain without sciatica Chronic lymphocytic leukemia ([facility]/HCC) Chronic obstructive pulmonary disease, unspecified COPD type ([facility]/HCC) See Dr Serrano. Stable CKD stage 3 due to type 2 diabetes mellitus (HCC) ([facility]) Cr baseline. No change. BP at goal typically FSBS reviewed and slightly above goal. Has not followed with Nephrology for quite sometime DM (diabetes mellitus) ([facility]) BUCKNER (dyspnea on exertion) BUCKNER, on minimal exertion, associated Palpitations. No prior hx of CAD/ ischemic w/u Factor V Leiden ([facility]) Pt needs a refill on her medications today. On Eliquis. NO issues with the medications. NO bleeding. Fatigue, unspecified type reports fatigue, low energy GERD (gastroesophageal reflux disease) History of CVA (cerebrovascular accident) History of hysterectomy Hyperlipidemia ([facility]) Supposed to be on Lovastatin but not using it. Hypokalemia Iron deficiency anemia patient was started on oral iron supplementation for iron deficiency anemia. tolerating it well. noadverse affects. hx of GI bleed - no [...] Right shoulder pain Secondary pulmonary arterial hypertension ([facility]) Shoulder dislocation, right, sequela Thrombosis of left saphenous vein Type 2 diabetes mellitus ([facility]) Patient was previously on Novolin 70/30 along with Trulicity and Metformin Stopped using Insulin herself as it dropped her blood glucose too low Type 2 diabetes mellitus with diabetic autonomic neuropathy, with long-term current use of insulin ([facility]) Erratic & difficult to control,Partly because of noncompliance not following instructions &failurto f/u. Previously on Metformin,Glipzide &Trulicity. Was on Novolin 70/30 15 q12. Reports2-3 episodes of hypoglycemia per month. Reports blood glucose are < 100 & are 150-200 in PM.Had been intermittently using Novolin 70/30 TID &sometimes skips meal after using insulin Last OV Metformin wasDC Varicose veins of legs Past Surgical History: Procedure Laterality Date CATARACT EXTRACTION 2012 CERVICAL FUSION 2016 SECTION, LOW TRANSVERSE 1973 SECTION, LOW TRANSVERSE [...] recent change. No heart burn, liver or gallbladderdisease; no rectal bleeding or pain : No urinary pain , frequency or odor. MUSCULOSKELETAL: No muscle pain or cramps; no extremity weakness.No joint pain, stiffness, swellingor limitation of movement NEUROLOGY: No H/O seizures, [...] diabetes mellitus with diabetic autonomic (poly)neuropathy (CMS/HCC) - POCT glucose manually resulted - POCT [...] I will stop insulin 70/30 and start Vbcsuer50 units at bedtime, NovoLog 3-4-5 according to meal size plus scale 1. Instruction given, continuehis Farxiga 10 mg, continue with Trulicity 1.5 mg once a day we will check lab before next visit including C-peptide Mixed hyperlipidemia (CMS/HCC) Primary hypertension ([facility]) Encounter for dietary consultation Diet and exercise reviewed with the patient Vitamin D deficiency Hypoglycemia Class 1 obesity due to excess calories with serious comorbidity and body mass index (BMI) of 31.0 to 31.9 in adult Follow up in about 3 months (around 2024). documented in this encounterRanken [facility] [id number] Evaluation note* Diagnosis Anemia due to chronic blood loss- Primary 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, with long-term current use of insulin (HCC) (CMS/HCC) Mixed hyperlipidemia (CMS/HCC) Mixed hyperlipidemia CLL (chronic lymphocytic leukemia) ([facility]/HCC) Chronic lymphoid leukemia, without mention of having achieved remission Primary hypertension (CMS/HCC) Unspecified essential hypertension Gastroesophageal reflux disease without esophagitis Esophageal reflux Encounter for Medicare annual wellness exam Screening mammogram for breast cancer Primary hypertension (CMS/HCC)- Primary Unspecified essential hypertension PAF (paroxysmal atrial fibrillation) (CMS/HCC) Atrial fibrillation Stage 3a chronic kidney disease (HCC) (CMS/HCC) Type 2 diabetes mellitus with stage 3a chronic kidney disease, with long-term current use of insulin (HCC) (CMS/HCC) Type 2 diabetes mellitus with diabetic autonomic (poly)neuropathy (CMS/HCC) Postural urinary incontinence Primary hypertension (CMS/HCC)- Primary Unspecified essential hypertension PAF (paroxysmal atrial fibrillation) ([facility]/HCC) Atrial fibrillation Stage 3a chronic kidney disease (HCC) ([facility]/HCC) Type 2 diabetes mellitus with stage 3a chronic kidney disease, with long-term current use of insulin (HCC) ([facility]/HCC) Mixed hyperlipidemia ([facility]/HCC) Mixed hyperlipidemia Chronic obstructive pulmonary disease, unspecified COPD type ([facility]/HCC) Gastroesophageal reflux disease without esophagitis Esophageal reflux Type 2 diabetes mellitus without complications ([facility]/HCC) Type 2 diabetes mellitus with stage 3a chronic kidney disease, with long-term current use of insulin (HCC) ([facility])- Primary Type 2 diabetes mellitus with diabetic autonomic (poly)neuropathy ([facility]/HCC) Chronic obstructive pulmonary disease, unspecified COPD type ([facility]/HCC) Need for immunization against influenza Need for prophylactic vaccination and inoculation against influenza Primary hypertension ([facility]/HCC) Unspecified essential hypertension Type 2 diabetes mellitus with diabetic autonomic (poly)neuropathy ([facility]/HCC)- Primary Mixed hyperlipidemia ([facility]) Mixed hyperlipidemia Primary hypertension ([facility]) Unspecified essential hypertension Encounter for dietary consultation Vitamin D deficiency Hypoglycemia Hypoglycemia, unspecified Class 1 obesity due to excess calories with serious comorbidity and body mass index (BMI) of 31.0 to 31.9 in adult documented in this encounter [facility] [id number] NoteCardiology Follow Up Progress Note HPI: Robina Ron is a 73 y.o. female who has a past medical history of Abnormal ECG, Anemia, Arrhythmia, Atrial fibrillation ([facility]/HCC), Chronic kidney disease, Clotting disorder ([facility]), Diabetes mellitus ([facility]), Hyperlipidemia, Hypertension, Pericardial effusion, and Stroke ([facility]). Patient here for 3 mo follow up hypertension, PAF, Factor V Leiden, and pericardial effusion. Lisinopril was reduced to 5mg at last apt in Apr 2024. She was admitted to [facility] in May 2024 for sepsis. Denies chest [...] as needed Edd Wade MD Interventional Cardiology [facility] [place]11-19-2024 History of Present illness Narrative* Tj Ramirez [...] Chronic obstructive pulmonary disease, unspecified COPD type ([facility]) Using rescue inhaler 1-2 times per month. Feels symptoms are well controlled. No longer follows pulmonolgy * Tj Ramirez NP - 08/01/2024 10:00 AM EST Images from the original note were not included. Subjective Patient ID: Robina Ron is a 73 y.o. female who presents for Hypertension. HPI Specialists: Follows Cardiology- , [facility]- Follows Urology: Dr. Shukla Sees Oncology/Hematology- Factor V Was admitted to [facility] on 06/03/2024 for colitis and septic shock. [...] R ALBUMIN GLOBULIN RATIO 1.1 Resulting Agency [facility] DMII: Most recent labs: hemoglobin A1C 7.1% [...] long-term current use of insulin (HCC) (CMS/HCC) - Primary Most recent labs: hemoglobin A1C 7.1% needs rechecked today. Average FSBS range from 68-150 Checks BG levels using: CourseWeaveryle continuous glucose monitor Several episodes of hypoglycemia [...] (Hb A1C) docked device (Completed) Primary hypertension (CMS/HCC) Currently taking Lisinopril, metoprolol, [...] 2 diabetes mellitus with diabetic autonomic (poly)neuropathy ([facility]/HCC) Relevant Medications insulin NPH-insulin regular (HumuLIN 70/30 KWIKPEN) (70-30) 100 UNIT/ML injection Other Relevant Orders Ambulatory referral to Endocrinology POCT glycosylated hemoglobin (Hb A1C) docked device (Completed) Need for immunization against influenza Relevant Orders Flu vaccine greater than or equal to 3 years old, preservative free IM (Completed) documented in this [facility]11-19-2024 Instructions* Patient Instructions* Tj Ramirez NP - [...] carbohydrates, and simple sugars. documented in this [facility]11-04-2024 Telephone encounter Note* Telephone Encounter - Alondra [...] her I would let you know Alondra [facility] Work Phone: [phone] 539-203611-04-2024 Miscellaneous Notes* Telephone Encounter - Alondra James [...] let you know Alondra documented in this encounterRanken Jordan Pediatric Specialty [id number] Evaluation + Plan note Diagnostic Tests Pending * Urine Culture 05/09/24 [facility] [id number] Hospital Discharge instructions Patient Education 05/09/2024 10:01:16 [...] (electrical nerve stimulation). ?For women, using a faculty i on call medical assistant to prevent urine leaks. This is a [...] right after experiencing incontinence. General instructions Take cfbj-est-entypwu and prescription medicines only as told by [...] important. Where to find more information National [place] of Diabetes and Digestive and Kidney Diseases: www.niddk.nih.gov [employer] [employer]: www.urologyhealth.org Contact a health care [...] provider. Document Revised: 04/04/2021 Document Reviewed: 04/04/2021 [employer] Patient Education 2022 [employer]. 05/09/2024 10:01:15 Overactive Bladder, Adult Overactive Bladder, [...] your health care provider. General instructions Take gqwu-nem-xowexet and prescription medicines only as told by [...] provider. Document Revised: 05/19/2021 Document Reviewed: 05/19/2021 [employer] Patient Education 2022 [employer]. Follow Up Care 02/29/2024 11:11:11 With:AMALIA Shukla APRN, Shante Bonilla, NAHEED, URL Address: When: Unknown Comments:6 months [facility] 08-27-2024 NotePatient Education Obstetrics and Gynecology Overactive [...] health care provider. General instructions ? Take koux-faf-fsmtzrp and prescription medicines only as told by [...] help your health care (more content not included)...[facility]08-26-2024 NoteCardiology Follow Up Progress Note Chief Complaint: Follow up HPI: Robina Ron is a 73 y.o. female who has a past medical history of Abnormal ECG, Anemia, Arrhythmia, Atrial fibrillation (CMS/HCC), Chronic kidney disease, Clotting disorder (CMS/HCC), Diabetes mellitus (CMS/HCC), Hyperlipidemia, Hypertension, Pericardial effusion, and Stroke (CMS/HCC). Patient adamantly denies any cardiac complaints or [...] as needed Edd Wade MD Interventional Cardiology [facility] [place]08-21-2024 History of Present illness Narrative* Tj Ramirez NP - 05/03/2024 2:20 PM EDT Associated Problem(s): Mixed hyperlipidemia (CMS/HCC) Continue Lipitor 20mg Lipid panel ordered today. * Tj Ramirez NP - 05/03/2024 2:20 PM EDTAssociated Problem(s): Type 2 diabetes mellitus with stage 3a chronic kidney disease, with long-term current use of insulin (HCC) (CMS/HCC) States 14 day average 168 A1C needs [...] Continue taking Protonix as directed. * Tj Quijanotrick, JOSE - 05/03/2024 10:30 AM EDT Images from the original note were not included. Subjective Patient ID: Robina Ron is a 73 y.o. female who presents for Follow-up. HPI Follows Cardiology- , [facility]- next appointment unsure Follows Urology: Dr. Shukla [...] with long-term current use of insulin (HCC) ([facility]) States 14 day average 168 A1C needs completed. Ordered today No episodes of hypoglycemia No medication adverse effects reported by the patient. Stressed upon importance of checking blood glucose at home and bring blood glucose log to appointments. On NPH/Regular (70/30) 15 units q12, Farxiga, Trulicity and Glipizide. Relevant Medications Continuous Glucose Residential Nurse (FreeStyle Toby 3 Lakeside) device Continuous Glucose Sensor (FreeStyle Toby 3 Plus Sensor) misc Other Relevant Orders Microalbumin / creatinine urine ratio Comprehensive metabolic panel CBC and differential Hemoglobin A1c Ambulatory referral to Podiatry Mixed hyperlipidemia ([facility]) Continue Lipitor 20mg Lipid panel ordered today. Relevant Orders Lipid panel Primary hypertension ([facility]) - Primary Has been checking BP at [...] Protonix as directed. PAF (paroxysmal atrial fibrillation) ([facility]) Relevant Orders Comprehensive metabolic panel CBC and differential Stage 3 chronic kidney disease (HCC) ([facility]) Continue Farxiga. Monitor labs. CMP ordered today. Relevant Orders Microalbumin / creatinine urine ratio Comprehensive metabolic panel Chronic obstructive pulmonary disease, unspecified COPD type ([facility]) Using rescue inhaler 1-2 times per month Feels symptoms are well controlled. No longer follows pulmonolgy Other Visit Diagnoses Type 2 diabetes mellitus without complications ([facility]) Relevant Medications Continuous Glucose Residential Nurse (FreeStyle Toby 3 Lakeside) device Continuous Glucose Sensor (FreeStyle Toby 3 Plus Sensor) misc documented in this encounterRanken Jordan Pediatric Specialty [id number] Instructions* Patient Instructions* Tj Ramirez NP - [...] carbohydrates, and simple sugars. documented in this [facility]07-02-2024 NoteCardiology Follow Up Progress Note Chief Complaint: Follow up HPI: Robina Ron is a 73 y.o. female who has a past medical history of Abnormal ECG, Anemia, Arrhythmia, Atrial fibrillation (CMS/HCC), Chronic kidney disease, Clotting disorder (CMS/HCC), Diabetes mellitus (CMS/HCC), Hyperlipidemia, Hypertension, Pericardial effusion, and Stroke ([facility]/HCC). That presents today for follow up. Patient [...] as needed Edd Wade MD Interventional Cardiology [facility] [place]06-23-2024 NoteChief Complaint Referral *Incontinence HPI Staff Evaluation [...] with voice recognition artificial intelligence software, specifically Itiva, Shadow Puppet and or Kula Causes. Substitutions may have occurred due to the [...] Flank Pain: none. Bladder: nonpalpable. Assessment/Plan former [facility] patient 1. OAB (overactive bladder) (N32.81: Overactive [...] with diabetic autonomic (poly)neuropathy (more content not included)...[facility] CenterComment on above:Result Comment: Electronically Signed By: AMALIA Shukla APRN, [place] X\.br\Date and Time Signed: 03/05/24 22:19 [id number] Miscellaneous Notes* Telephone Encounter - Makenna Kendall RN - 04/21/2022 1:47 PM EDT Pt has follow up appointment with Dr Rainey tomorrow. Makenna Kendall RN * Telephone Encounter - Makenna Kendall RN - 04/21/2022 1:31 PM EDT Spoke with Pankaj at Dr Rainey's office. Recent records and labs faxed to [phone] per office request. Makenna Kendall RN * Telephone Encounter - Makenna Kendall RN - 04/21/2022 12:54 PM EDT Message left with Dr Rainey's vp medical again today regarding this pt and the urgency of this being addressed. Will try again later today if I don't hear back from their office. Makenna Kendall RN * Telephone Encounter - Makenna Kendall RN - 04/17/2022 10:39 AM EDT Call placed to [facility]. Office is closed. Makenna Kendall RN * Telephone Encounter - Ninoska Maldonado Pss - 04/14/2022 2:03 PM EDT PCP updated in chart * Telephone Encounter - Makenna Kednall RN - 04/14/2022 1:49 PM EDT Glucose rechecked in the office and it was 373 by fingerstick. Call placed to Dr Joseph who is listed at pt's PCP. Jono states he has not worked in the office in 4 years now. Jono states pt is nowseen by Dr Rainey at [facility]. Call placed to their office ([phone]) and message left requesting a call back. PSS: can you please update pt's PCP info. Thanks, Makenna Kendall RN * Telephone Encounter - Christi Fink MD - 04/14/2022 1:39 PM EDT Thanks. Can we have her PCP address this, Thanks * Telephone Encounter - Christy Byrd RN - 04/14/2022 1:23 PM EDT Key Monteiro from [facility] Client Services calls to report critical results: Glucose - 506 Pt identifiers and results read back for verification. Christy Byrd RN documented in this encounterMer[facility]08-04-2022 Miscellaneous Notes* Telephone Encounter - Adrienne Weinstein Pss - 04/16/2022 9:06 AM EDT Called [facility]lic[facility] Romano spoke with Kenyatta. She states they have patient scheduled to see Dr Patel on 05/12 for EGD. Adrienne Dodson * Telephone Encounter - Adrienne Dodson - 04/13/2022 1:16 PM EDT Called Angélica Romano spoke with Kenyatta. She states they have called left patient message to call them back to schedule. Adrienne Weinstein Pss * Telephone Encounter - Adrienne Dodson - 04/09/2022 8:38 AM EDT Called Angélica Romano spoke with Kenyatta. She states they have received this referral and their referral dept will be calling patient soon to schedule. I will call back sometime next week check on status of this referral. Adrienne Weinstein Pss * Telephone Encounter - Shaye Gonzalez [facility] - 04/06/2022 8:57 AM EDT Records faxed to Dr. Rich. * Telephone Encounter - Adrienne Weinstein Pss - 04/06/2022 8:12 AM EDT Gladys: Information ready for you. Adrienne Roth Pss * Telephone Encounter - Makenna Hidalgo Sec - 04/06/2022 7:47 AM EDT Images from the original note were not included. Please send records to [facility] office thanks! MD Tj Thompson; Makenna Hidalgo Sec Please refer her to GI for an upper endoscopy. Thanks documented in this encounterMer[facility]. [facility]08-03-2022 Evaluation note* Encounter Date Diagnosis Assessment Notes Treatment Notes Treatment Clinical Notes Apr, Anemia due to blood loss, chronic (ICD-10 - D50.0) [employer] Other 08-02-2022 NoteHNO ID: [id number] Author: Brenda Tavera RN Service: ? Author [...] noted. She has verbalized understanding Brenda Tavera RNJ.W. Ruby [facility]08-02-2022 NoteHNO ID: [id number] Author: Christi Fink MD Service: ? Author Type: Physician Type: Progress Notes Filed: 04/14/2022 1:13 PM Note Text: PATIENT NAME: Robina Ron CLINIC NO.: [id number] ATTENDING PHYSICIAN: Christi Fink MD DATE OF [...] - COPD (chronic obstructive pulmonary disease) ([facility]) - CVA (cerebral vascular accident) ([facility]) - Diabetes mellitus (HCC) - Dyspnea - Factor V Leiden (HCC) - GERD (gastroesophageal reflux disease) - History of colon polyps - Hyperlipidemia - Hypertension - Hypokalemia - Leukocytosis - JARRET (obstructive sleep apnea) - PAD (peripheral artery disease) ([facility]) - Pericardial effusion Social History Tobacco Use [...] g/dL Final RDW-CV Date (more content not included)...[facility]08-02-2022 History of Present illness Narrative* [...] Tavera RN [facility] NoteHNO ID: [id number] Author: Christi Fink MD Service: ? Author Type: Physician Type: Progress Notes Filed: 04/04/2022 11:07 AM Note Text: PATIENT NAME: Robina Ron CLINIC NO.: [id number] ATTENDING PHYSICIAN: Christi Fink MD DATE OF [...] not taking: Reported on 03/31/2022 ) - Ntulu-8-XPY-EPA-Fish Oil 1,000 mg (120 mg-180 mg) cap [...] MEDICAL HISTORY Diagnosis Date - A-fib ([facility]) - Anemia - Asthma - Chronic low back pain with sciatica - COPD (chronic obstructive pulmonary disease) ([facility]) - CVA (cerebral (more content not included)...[facility] 12-22-2021 NoteCARDIAC STRESS TEST Requesting [...] interpreted and reported in a separate dictation. [facility] Signed and Approved by: DR ALFRED SUGGS 03/03/2022 10:18:00[facility]02-01-2022 Evaluation note* Encounter Date Diagnosis Assessment Notes [...] We discussed that there will be a penitentiary cosmetic deformity at the AC joint, however, relatively normal function can return. If penitentiary pain and dysfunction occur, surgical treatment can be considered. Patient given order for physical therapy. [facility] Other Evaluation + Plan note Future Appointments Appointment Date:04/11/2024 09:00:00 AM Scheduled Provider:AMALIA Shukla APRN, [place] X Location:[facility] Appointment Type:URO Office Visit [facility] evaluation + Plan note Future Appointments Appointment Date:04/11/2024 09:00:00 AM Scheduled Provider:AMALIA Shukla APRN [place] X Location:[facility] Appointment Type:URO Office Visit Diagnostic Tests Pending * Urine [facility] Diagnosis Iron deficiency anemia due to chronic blood loss- Primary Iron deficiency anemia secondary to blood loss (chronic) Controlled type 2 diabetes mellitus without complication, unspecified whether predatory animal exterminator insulin use ([facility]) [facility] Diagnosis Iron deficiency anemia due to chronic blood loss- Primary Iron deficiency anemia secondary to blood loss (chronic) [facility] Diagnosis Iron deficiency anemia due to chronic blood loss- Primary Iron deficiency anemia secondary to blood loss (chronic) [facility]* Diagnosis Iron deficiency anemia due to chronic blood loss- Primary Iron deficiency anemia secondary to blood loss (chronic) [facility] Diagnosis Iron deficiency anemia due to chronic blood loss- Primary Iron deficiency anemia secondary to blood loss (chronic) [facility] Diagnosis Onset Date Resolution Status Iron deficiency anemia [facility] Work Phone: Evaluation note* Diagnosis Anemia due to chronic blood loss- Primary 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, with long-term current use of insulin (HCC) ([facility]/HCC) Mixed hyperlipidemia ([facility]/HCC) Mixed hyperlipidemia CLL (chronic lymphocytic leukemia) ([facility]) Chronic lymphoid leukemia, without mention of having achieved remission Primary hypertension ([facility]/HCC) Unspecified essential hypertension Gastroesophageal reflux disease without esophagitis Esophageal reflux Encounter for Medicare annual wellness exam Screening mammogram for breast cancer Primary hypertension ([facility])- Primary Unspecified essential hypertension PAF (paroxysmal atrial fibrillation) ([facility]/HCC) Atrial fibrillation Stage 3a chronic kidney disease (HCC) ([facility]/HCC) Type 2 diabetes mellitus with stage 3a chronic kidney disease, with long-term current use of insulin (HCC) ([facility]) Type 2 diabetes mellitus with diabetic autonomic (poly)neuropathy ([facility]) Postural urinary incontinence Primary hypertension ([facility]/HCC)- Primary Unspecified essential hypertension PAF (paroxysmal atrial fibrillation) ([facility]/HCC) Atrial fibrillation Stage 3a chronic kidney disease (HCC) ([facility]) Type 2 diabetes mellitus with stage 3a chronic kidney disease, with long-term current use of insulin (HCC) ([facility]) Mixed hyperlipidemia ([facility]/HCC) Mixed hyperlipidemia Chronic obstructive pulmonary disease, unspecified COPD type ([facility]/HCC) Gastroesophageal reflux disease without esophagitis Esophageal reflux Type 2 diabetes mellitus without complications ([facility]/HCC) Type 2 diabetes mellitus with stage 3a chronic kidney disease, with long-term current use of insulin (HCC) ([facility])- Primary Type 2 diabetes mellitus with diabetic autonomic (poly)neuropathy ([facility]/HCC) Chronic obstructive pulmonary disease, unspecified COPD type ([facility]/HCC) Need for immunization against influenza Need for prophylactic vaccination and inoculation against influenza Primary hypertension ([facility]) Unspecified essential hypertension documented in this encounter [facility]* Diagnosis Anemia due to chronic blood loss- Primary 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, with long-term current use of insulin (HCC) ([facility]) Mixed hyperlipidemia ([facility]) Mixed hyperlipidemia CLL (chronic lymphocytic leukemia) ([facility]) Chronic lymphoid leukemia, without mention of having achieved remission Primary hypertension ([facility]) Unspecified essential hypertension Gastroesophageal reflux disease without esophagitis Esophageal reflux Encounter for Medicare annual wellness exam Screening mammogram for breast cancer Primary hypertension ([facility])- Primary Unspecified essential hypertension PAF (paroxysmal atrial fibrillation) ([facility]) Atrial fibrillation Stage 3a chronic kidney disease (HCC) ([facility]) Type 2 diabetes mellitus with stage 3a chronic kidney disease, with long-term current use of insulin (HCC) ([facility]) Type 2 diabetes mellitus with diabetic autonomic (poly)neuropathy ([facility]/HCC) Postural urinary incontinence Primary hypertension ([facility])- Primary Unspecified essential hypertension PAF (paroxysmal atrial fibrillation) ([facility]) Atrial fibrillation Stage 3a chronic kidney disease (HCC) ([facility]) Type 2 diabetes mellitus with stage 3a chronic kidney disease, with long-term current use of insulin (HCC) ([facility]/HCC) Mixed hyperlipidemia ([facility]) Mixed hyperlipidemia Chronic obstructive pulmonary disease, unspecified COPD type ([facility]) Gastroesophageal reflux disease without esophagitis Esophageal reflux Type 2 diabetes mellitus without complications ([facility]/HCC) Type 2 diabetes mellitus with stage 3a chronic kidney disease, with long-term current use of insulin (HCC) ([facility])- Primary Type 2 diabetes mellitus with stage 3a chronic kidney disease, with long-term current use of insulin (HCC) ([facility])- Primary Type 2 diabetes mellitus with diabetic autonomic (poly)neuropathy ([facility]) Chronic obstructive pulmonary disease, unspecified COPD type (CMS/HCC) Need for immunization against influenza Need for prophylactic vaccination and inoculation against influenza Primary hypertension ([facility]/HCC) Unspecified essential hypertension documented in this encounter [facility] Healthcare[facility]* Diagnosis Primary hypertension (CMS/HCC)- Primary Unspecified essential hypertension PAF (paroxysmal atrial fibrillation) ([facility]/HCC) Atrial fibrillation Stage 3a chronic kidney disease (HCC) ([facility]/HCC) Type 2 diabetes mellitus with stage 3a chronic kidney disease, with long-term current use of insulin (HCC) ([facility]/HCC) Mixed hyperlipidemia ([facility]/HCC) Mixed hyperlipidemia Chronic obstructive pulmonary disease, unspecified COPD type ([facility]/HCC) Gastroesophageal reflux disease without esophagitis Esophageal reflux Type 2 diabetes mellitus without complications ([facility]) documented in this encounter [facility]* Diagnosis Anemia due to chronic blood loss- Primary 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, with long-term current use of insulin (HCC) ([facility]/HCC) Mixed hyperlipidemia ([facility]/HCC) Mixed hyperlipidemia CLL (chronic lymphocytic leukemia) ([facility]) Chronic lymphoid leukemia, without mention of having achieved remission Primary hypertension ([facility]/HCC) Unspecified essential hypertension Gastroesophageal reflux disease without esophagitis Esophageal reflux Encounter for Medicare annual wellness exam Screening mammogram for breast cancer Primary hypertension ([facility]/HCC)- Primary Unspecified essential hypertension PAF (paroxysmal atrial fibrillation) ([facility]) Atrial fibrillation Stage 3a chronic kidney disease (HCC) ([facility]) Type 2 diabetes mellitus with stage 3a chronic kidney disease, with long-term current use of insulin (HCC) ([facility]) Type 2 diabetes mellitus with diabetic autonomic (poly)neuropathy ([facility]/HCC) Postural urinary incontinence Primary hypertension ([facility]/HCC)- Primary Unspecified essential hypertension PAF (paroxysmal atrial fibrillation) ([facility]/HCC) Atrial fibrillation Stage 3a chronic kidney disease (HCC) ([facility]) Type 2 diabetes mellitus with stage 3a chronic kidney disease, with long-term current use of insulin (HCC) ([facility]/HCC) Mixed hyperlipidemia ([facility]/HCC) Mixed hyperlipidemia Chronic obstructive pulmonary disease, unspecified COPD type ([facility]/HCC) Gastroesophageal reflux disease without esophagitis Esophageal reflux Type 2 diabetes mellitus without complications ([facility]) Type 2 diabetes mellitus with stage 3a chronic kidney disease, with long-term current use of insulin (HCC) ([facility])- Primary Type 2 diabetes mellitus with diabetic autonomic (poly)neuropathy (CMS/HCC) Chronic obstructive pulmonary disease, unspecified COPD type (CMS/HCC) Need for immunization against influenza Need for prophylactic vaccination and inoculation against influenza Primary hypertension (CMS/HCC) Unspecified essential hypertension Mixed hyperlipidemia (CMS/HCC)- Primary Mixed hyperlipidemia Primary hypertension (CMS/HCC) Unspecified essential hypertension Type 2 diabetes mellitus with stage 3a chronic kidney disease, with long-term current use of insulin (HCC) (CMS/HCC) documented [facility] N[facility]ative - Reported* Type Description Date Medical History diabetes type 2 Medical History stroke Medical History mild form of leukemia Surgical History x2 Surgical History cateract removal bilateral Surgical History kidney and bladder surgery Surgical History choliectomy Hospitalization History listed above [facility] Other Hospital course Narrative No data available for this section [facility] Discharge instructions No data available for this section [facility] progress note No data available for this section [facility] [employer] reason for referral (narrative)* Consultation (Routine) - Authorized Specialty Diagnoses / Procedures Referred By Ly infante Referred To Contact Podiatry Diagnoses Type 2 diabetes mellitus with stage 3a chronic kidney disease, with long-term current use of insulin (HCC) ([facility]) Procedures [place] OFFICE/OUTPATIENT NEW HIGH MDM 60 MINUTES Tj Ramirez NP [address] [place] [id number] Ammon Khanna DPM [address] [place] [address] Referral ID Status Reason Start Date Expiration Date Visits Requested Visits Authorized [id number] Authorized Specialty Services Required 05/03/2024 10/30/2024 1 [...] PER 1 MG Christi Fink MD [address] [place] [address] Jasiel Treat [address] [place] [address] Referral ID Status Reason Start Date Expiration Date V isits Requested Visits Authorized [id number] Authorized 04/03/2022 09/12/2022 99 99 Reason Comments Appointment Confirmation Reason Comments Critical Results Glucose Reason Comments Hypertension Reason Comments Diabetes NEW REF ONLY Specialty Diagnoses / Procedures Referred By Contac t Referred To Contact Endocrinology Diagnoses Type 2 diabetes mellitus with diabetic autonomic (poly)neuropathy (CMS/HCC) Procedures [place] OFFICE/OUTPATIENT NEW HIGH MDM Tj Ramirez, [employer] OPERATOR [address] [place] [address] Phone: tel: fax: Christopher Garrett MD [address] [place] [address] Phone: tel: fax: Referral ID Status Reason Start Date Expiration Date V isits Requested Visits Authorized [id number] Closed Specialty Services Required 08/01/2024 01/28/2025 1 1 Reason Comments Follow-up Reason Comments Diabetes Follow-up LAB Reason Comments Follow-up Source Comments (unrecognize d section and content) In the event this informatio n is protected by the Federal Confidentiality of Alcohol and Drug Abuse Patient Records regulations: The Federal rules restrict any use of the information to criminally investigate or prosecute any alcohol or drug abuse patient.[facility] the event this information is protected by the Federal Confidentiality of Alcohol and Drug Abuse Patient Records regulations: The Federal rules restrict any use of the information to criminally investigate or prosecute any alcohol or drug abuse patient.[facility] Hospital[facility] the event this information is protected by the Federal Confidentiality of Alcohol and Drug Abuse Patient Records regulations: The Federal rules restrict any use of the information to criminally investigate or prosecute any alcohol or drug abuse patient.[facility] Hospital[facility] the event this information is protected by the Federal Confidentiality of Alcohol and Drug Abuse Patient Records regulations: The Federal rules restrict any use of the information to criminally investigate or prosecute any alcohol or drug abuse patient.[facility] Hospital[facility] the event this information is protected by the Federal Confidentiality of Alcohol and Drug Abuse Patient Records regulations: The Federal rules restrict any use of the information to criminally investigate or prosecute any alcohol or drug abuse patient.[facility] HospitalIn the event this information is protected by the Federal Confidentiality of Alcohol and Drug Abuse Patient Records regulations: The Federal rules restrict any use of the information to criminally investigate or prosecute any alcohol or drug abuse patient.[facility] HospitalIn the event this information is protected by the Federal Confidentiality of Alcohol and Drug Abuse Patient Records regulations: The Federal rules restrict any use of the information to criminally investigate or prosecute any alcohol or drug abuse patient.[facility] Care Teams (unrecognized sec tion and content) Cardiac/Vascular Sonographer Relationship Specialty Start Date End Date Shaikh Sparks MD [address] [place] [address] PCP - General Primary Care 04/14/22 Cardiac/Vascular Sonographer Relationship Specialty Start Date End Date Demetrio Joseph PCP - General Family Practice 03/09/16 04/13/22 Shaikh Sparks MD [address] [place] [address] PCP - General Primary Care 04/14/22 Cardiac/Vascular Sonographer Relationship Specialty Start Date End Date Shaikh Sparks MD [address] [place] [place] [address] PCP - General Primary Care 04/14/22 Cardiac/Vascular Sonographer Relationship Specialty Start Date End Date Shaikh Sparks MD [address] [place] [address] PCP - General Primary Care 04/14/22 Cardiac/Vascular Sonographer Relationship Specialty Start Date End Date Shaikh Sparks MD [address] [place] [address] PCP - General Primary Care 04/14/22 Cardiac/Vascular Sonographer Relationship Specialty Start Date End Date Shaikh Sparks MD [address] [place] [address] PCP - General Primary Care 04/14/22 Cardiac/Vascular Sonographer Relationship Specialty Start Date End Date Shaikh Sparks MD [address] [place] [address] PCP - General Primary Care 04/14/22 Team Status: Inactive Member Role Status Dates Hood Patel MD Attending Provider Active Shaikh Clare MD Primary Care Provider Active Team Status: Active Member Role Status Dates Shaikh Clare MD Primary Care Provider Active Cardiac/Vascular Sonographer Relationship Specialty Start Date End Date Estuardo Sanchez MD [address] [place] [address] PCP - General Family Medicine 04/18/24 Tj Ramirez NP [address] [place] [address] Nurse Practitioner Family Medicine 04/18/24 Cardiac/Vascular Sonographer Relationship Specialty Start Date End Date Estuardo Sanchez MD [address] [place] [address] PCP - General Family Medicine 04/18/24 Tj Ramirez NP [address] [place] [address] Nurse Practitioner Family Medicine 04/18/24 Cardiac/Vascular Sonographer Relationship Specialty Start Date End Date Estuardo Sanchez MD [address] [place] [address] PCP - General Family Medicine 04/18/24 Tj Ramirez NP [address] [place] [address] Nurse Practitioner Family Medicine 04/18/24 Cardiac/Vascular Sonographer Relationship Specialty Start Date End Date Estuardo Sanchez MD [address] [place] [address] PCP - General Family Medicine 04/18/24 Tj Ramirez NP [address] [place] [address] Nurse Practitioner Family Medicine 04/18/24 Cardiac/Vascular Sonographer Relationship Specialty Start Date End Date Estuardo Sanchez MD [address] [place] [address] PCP - General Family Medicine 04/18/24 Tj Ramirez NP [address] [place] [address] Nurse Practitioner Family Medicine 04/18/24 Cardiac/Vascular Sonographer Relationship Specialty Start Date End Date Estuardo Sanchez MD [address] [place] [address] PCP - General Family Medicine 04/18/24 Tj Ramirez NP [address] [place] [address] Nurse Practitioner Family Medicine 04/18/24 Cardiac/Vascular Sonographer Relationship Specialty Start Date End Date Estuardo Sanchez MD [address] [place] [address] PCP - General Family Medicine 04/18/24 Tj Ramirez NP [address] [place] [address] Nurse Practitioner Family Medicine 04/18/24 Cardiac/Vascular Sonographer Relationship Specialty Start Date End Date Estuardo Sanchez MD [address] [place] [address] PCP - General Family Medicine 04/18/24 Tj Ramirez NP [address] [place] [address] Nurse Practitioner Family Medicine 04/18/24 Cardiac/Vascular Sonographer Relationship Specialty Start Date End Date Estuardo Sanchez MD [address] [place] [address] PCP - General Family Medicine 04/18/24 Tj Ramirez NP [address] [place] [address] Nurse Practitioner Family Medicine 04/18/24 Cardiac/Vascular Sonographer Relationship Specialty Start Date End Date Estuardo Sanchez MD [address] [place] [address] PCP - General Family Medicine 04/18/24 Tj Ramirez NP [address] [place] [address] Nurse Practitioner Family Medicine 04/18/24 Cardiac/Vascular Sonographer Relationship Specialty Start Date End Date Estuardo Sanchez MD [address] [place] [address] PCP - General Family Medicine 04/18/24 Shaikh Sparks MD [address] [place] [address] PCP - Carlos MAX 08/13/24 Tj Ramirez NP [address] [place] [address] Nurse Practitioner Family Medicine 04/18/24 Cardiac/Vascular Sonographer Relationship Specialty Start Date End Date Estuardo Sanchez MD [address] [place] [address] PCP - General Family Medicine 04/18/24 Shaikh Sparks MD [address] [place] [address] PCP - Carlos MAX 08/13/24 Tj Ramirez NP [address] [place] [address] Nurse Practitioner Family Medicine 04/18/24 Cardiac/Vascular Sonographer Relationship Specialty Start Date End Date Estuardo Sanchez MD [address] [place] [address] PCP - General Family Medicine 04/18/24 Tj Ramirez NP [address] [place] [address] Nurse Practitioner Family Medicine 04/18/24 Cardiac/Vascular Sonographer Relationship Specialty Start Date End Date Estuardo Sanchez MD [address] [place] [address] PCP - General Family Medicine 04/18/24 Tj Ramirez NP [address] [place] [place] [address] Nurse Practitioner Family Medicine 04/18/24 INFORMATION SOURCE (unrecogn ized section and content) DATE CREATED AUTHOR 05/14/2022 [facility] DATE CREATED AUTHOR AUTHOR'S ORGANIZ ATION 05/16/2022 [facility] DATE CREATED AUTHOR AUTHOR'S ORGANIZ ATION 07/07/2022 Lyle Hernandez [facility] pital DATE CREATED AUTHOR AUTHOR'S ORGANIZ ATION 03/03/2024 [facility] ical Center DATE CREATED AUTHOR AUTHOR'S ORGANIZ ATION 05/10/2024 [facility] DATE CREATED AUTHOR AUTHOR'S ORGANIZ ATION 05/11/2024 [facility] DATE CREATED AUTHOR AUTHOR'S ORGANIZ ATION 07/15/2024 [facility] DATE CREATED AUTHOR AUTHOR'S ORGANIZ ATION 08/07/2024 [facility] DATE CREATED AUTHOR AUTHOR'S ORGANIZ ATION 11/04/2024 [facility] dical Specialists EPIC FOR RECORDS PERTAINING TO PATIENTS [...] BE BASED ON THE PRIMARY CLINICAL RECORDS. [facility] [employer] [facility]. provides no warranty or guarantee of the accuracy or completeness of information in this document.
[2024-11-06 23:38] VITALS: BP 123/76; PULSE 110; TEMP 37; O2SAT 98; BMI 26.5
--- NOTE | 2024-11-06 23:40 | ECG_ITS ---
[facility] Test Date: 2024-11-06 Pat Name: CHEY RON Department: Room: - Gender: Female Data Coordinator: : 1950 Requested By: Order Number: [id number] Reading MD: ERMIAS LÓPEZ Measurements Intervals [place] Rate: 110 P: 35 VA: 154 QRS: 34 QRSD: 86 T: 27 QT: 322 QTc: 387 Interpretive Statements 1120 Sinus tachycardia 9140 abnormal rhythm ECG Compared to ECG 06/03/2024 14:48:17 Sinus rhythm no longer present Electronically Signed On 11-07-2024 6:50:21 EST by ERMIAS LÓPEZ
--- NOTE | 2024-11-06 23:42 | ED.SOB1 ---
HPI - SOB/Dyspnea General Chief Complaint: Shortness of Breath/Dyspnea Stated Complaint: SOB Time Seen by Provider: 11/06/24 23:37 History of Present Illness HPI Narrative: This 73-year-old female with a history of COPD who is not a smoker at this time presents for evaluation of this of breath and bodyaches. Symptoms have been present for the past several days. Her son is sick with an upper respiratory illness. She denies any vomiting or diarrhea. She is not certain if she has had a fever. She has been coughing with a nonproductive cough. She is on Eliquis. She has not had any hemoptysis. Related Data Home Medications ?Medication ?Instructions ?Recorded ?Confirmed albuterol sulfate 90 mcg/actuation 2 inh inhalation Q6H PRN shortness 06/03/24 11/06/24 aerosol inhaler of breath or wheezing apixaban 5 mg tablet (Eliquis) 5 mg PO Q12H 06/03/24 11/06/24 atorvastatin 20 mg tablet 20 mg PO .QD 06/03/24 11/06/24 dapagliflozin propanediol 10 mg 10 mg PO .QD 06/03/24 11/06/24 tablet (Farxiga) diltiazem HCl 240 mg 240 mg PO Q24H 06/03/24 11/06/24 capsule,extended release 24 hr dulaglutide 1.5 mg/0.5 mL 1.5 mg subcut .WEEKLY 06/03/24 11/06/24 subcutaneous pen injector (TrulicMerlin) lisinopril 5 mg tablet 5 mg PO .QD 06/03/24 11/06/24 metoprolol tartrate 50 mg tablet 50 mg PO Q12H 06/03/24 11/06/24 pantoprazole 40 mg tablet,delayed 40 mg PO .Q24 06/03/24 11/06/24 release trazodone 50 mg tablet 50 mg PO .QHS 06/03/24 11/06/24 trospium 20 mg tablet 20 mg PO Q12H 06/03/24 11/06/24 ergocalciferol (vitamin D2) 1,250 11/06/24 mcg (50,000 unit) capsule glipizide 5 mg tablet mg 11/06/24 insulin degludec 100 unit/mL (3 unit subcut 11/06/24 mL) subcutaneous pen (Tresiba FlexTouch U-100 insulin) insulin lispro 100 unit/mL subcut 11/06/24 subcutaneous pen lancets 33 gauge (OneTouch Delica 11/06/24 11/06/24 Plus Lancet) pen needle, diabetic 31 gauge x 11/06/24 11/06/24 5/16 (BD Ultra-Fine Short Pen Needle) Allergies Allergy/AdvReac Type Severity Reaction Status Date / Time acetaminophen (From Percocet) Allergy Agitated Verified 11/06/24 23:44 oxycodone (From Percocet) Allergy Agitated Verified 11/06/24 23:44 Review of Systems ROS Status of ROS 10 or more systems reviewed and unremarkable except as noted in history and below [facility] Medical History (Updated 11/07/24 @ 02:36 by Rosette Ortiz MD) Moderate protein malnutrition ?E44.0 - Moderate protein-calorie malnutrition (ICD-10) Oropharyngeal dysphagia ?R13.12 - Dysphagia, oropharyngeal phase (ICD-10) Colitis ?K52.9 - Noninfective gastroenteritis and colitis, unspecified (ICD-10) HLD (hyperlipidemia) ?E78.5 - Hyperlipidemia, unspecified (ICD-10) Chronic diastolic heart failure ?I50.32 - Chronic diastolic (congestive) heart failure (ICD-10) Paroxysmal A-fib ?I48.0 - Paroxysmal atrial fibrillation (ICD-10) TIA (transient ischemic attack) ?G45.9 - Transient cerebral ischemic attack, unspecified (ICD-10) CLL (chronic lymphocytic leukemia) ?C91.10 - Chronic lymphocytic leukemia of B-cell type not having achieved remission (ICD-10) Factor 5 Leiden mutation, heterozygous ?D68.51 - Activated protein C resistance (ICD-10) Diabetes ?E11.9 - Type 2 diabetes mellitus without complications (ICD-10) High cholesterol ?E78.00 - Pure hypercholesterolemia, unspecified (ICD-10) Overactive bladder ?N32.81 - Overactive bladder (ICD-10) HTN (hypertension) ?I10 - Essential (primary) hypertension (ICD-10) Surgical History (Updated 06/03/24 @ 18:47 by Monika Kidd) Cataracts, both eyes ?H26.9 - Unspecified cataract (ICD-10) History of cholecystectomy ?Z90.49 - Acquired absence of other specified parts of digestive tract (ICD-10) H/O: hysterectomy ?Z90.710 - Acquired absence of both cervix and uterus (ICD-10) Family History (Updated 06/03/24 @ 18:48 by Monika Kidd) Father Family history of CHF (congestive heart failure) Mother Family history of cancer Family history of hypertension Social History (Updated 06/03/24 @ 18:50 by Monika Kidd) Within the past year, how often did you have a drink containing alcohol: never Score interpretation: A score less than 3 is consistent with normal alcohol consumption. Smoking status: Never smoker Non-prescribed substance use: denies use Previous occupational history: disabled Highest level of school completed/degree received: high school graduate Are you now , , , , never or living with a partner: Little interest or pleasure in doing things: not at all Feeling down, depressed, or hopeless: not at all Feel stressed/tense/nervous/anxious/difficulty sleeping: not at all Exam Narrative Exam Narrative: Vital signs and Nursing Notes reviewed: Patient is afebrile, tachycardic with a pulse of 110, she is tachypneic with respiratory of 22, she has a normal blood pressure, she is not hypoxic with pulse ox of 98% on room air General: Awake, alert, oriented, nontoxic, mildly ill-appearing elderly female, no respiratory distress HEENT: Normocephalic atraumatic, mucous membranes are moist and pink, eyes are clear, normal conjunctiva, vision is grossly intact, posterior pharynx is normal in appearance. Neck: Supple, no meningeal signs, no anterior or posterior cervical lymphadenopathy Chest: Diffusely diminished breath sounds with no rhonchi or rales appreciated, no accessory muscle use, patient is not hypoxic with pulse ox of 98% on room air CVS: Regular rate and rhythm S1-S2, no murmurs rubs or gallops, pulses are brisk and equal bilaterally ABD: Soft, nondistended, nontender, no rebound guarding or rigidity, bowel sounds are normal, no pulsatile masses appreciated Extremities: Moving all extremities, no lower extremity tenderness or swelling noted, negative Homans' sign, pulses are brisk and equal bilaterally Skin: Normal in appearance without rash,pallor, petechiae or purpura Neuro: No focal deficits Constitutional Vital Signs, click to edit/add: Last Vital Signs Temp 98.6 F 11/06/24 23:38 Pulse 108 H 11/07/24 00:00 Resp 19 11/07/24 00:00 BP 123/76 11/06/24 23:38 Pulse Ox 93 L 11/07/24 00:00 O2 Del Method Room Air 11/07/24 00:00 Course Vital Signs Vital signs: Vital Signs Temperature 98.6 F 11/06/24 23:38 Pulse Rate 110 H 11/06/24 23:38 Respiratory Rate 22 H 11/06/24 23:38 Blood Pressure 123/76 11/06/24 23:38 Pulse Oximetry 98 11/06/24 23:38 Temperature 98.6 F 11/06/24 23:38 Pulse Rate 108 H 11/07/24 00:00 Respiratory Rate 19 11/07/24 00:00 Blood Pressure 123/76 11/06/24 23:38 Pulse Oximetry 93 L 11/07/24 00:00 Oxygen Delivery Method Room Air 11/07/24 00:00 MDM - SOB/Dyspnea MDM Narrative Medical decision making narrative: This 73-year-old female with a history of COPD who no longer smokes presents for evaluation of 2 days of increasing shortness of breath with generalized illness. Upon arrival she was ill-appearing and taken to room 6. She was afebrile with a normal pulse ox but tachycardic. EKG done upon arrival was a sinus tachycardia at 110 bpm with a normal axis and no acute changes. She has had episodes of desaturation while she was in the emergency department. Her lungs were clear but diminished. She was given a DuoNeb treatment, 125 mg of IV Solu-Medrol, 2 g of magnesium, Tylenol and IV fluids. She is positive for influenza A. She has a normal troponin. She has a normal white count and hemoglobin. Electrolytes are normal with a mild elevation in her creatinine at 1.33. BNP is normal. Lactic acid was mildly elevated at 2.3. Chest x-ray does not show any acute infiltrate. The patient requested to be admitted to the hospital for her symptoms. She was given a trial of ambulation and her pulse ox dropped into the 80s at that time. She is otherwise remained hemodynamically stable. She was placed back on supplemental oxygen with improvement in her pulse ox into the 90s. Case was discussed with the hospitalist and she is excepted for admission to [facility], observation status Lab Data Labs: Lab Results 11/07/24 11/07/24 Range/Units 00:00 00:03 WBC 8.3 (4.0-11.0) 10^3/uL RBC 4.74 (4.20-5.40) 10^6/uL Hgb 12.9 (12.0-16.0) g/dL Hct 40.5 (36.0-48.0) % MCV 85.4 (81.0-99.0) fL MCH 27.2 (26.7-34.0) pg MCHC 31.9 (29.9-35.2) g/dL RDW 16.0 H (11.0-15.0) % Plt Count 107 L (150-450) 10^3/uL MPV 8.3 L (9.5-13.5) fL Neut % (Auto) 55.8 (43.0-75.0) % Lymph % (Auto) 33.6 (20.5-60.0) % Love % (Auto) 9.6 (1.7-12.0) % Eos % (Auto) 0.2 L (0.9-7.0) % Baso % (Auto) 0.2 (0.2-2.0) % Neut # (Auto) 4.6 (1.4-6.5) 10^3/uL Lymph # (Auto) 2.8 (1.2-3.8) 10^3/uL Love # (Auto) 0.8 (0.3-0.8) 10^3/uL Eos # (Auto) 0.0 (0.0-0.7) 10^3/uL Baso # (Auto) 0.0 (0.0-0.1) 10^3/uL Abs Immat Gran (auto) 0.05 H (0.00-0.03) 10^3/uL Imm/Tot Granulo (auto) 0.6 H (0.0-0.5) % Sodium 139 (136-145) mmol/L Potassium 4.0 (3.5-5.1) mmol/L Chloride 105 (98-107) mmol/L Carbon Dioxide 21.1 (21.0-32.0) mmol/L Anion Gap 16.9 BUN 24.0 H (7.0-18.0) mg/dL Creatinine 1.33 H (0.55-1.02) mg/dL Est GFR ( Amer) 47 L (>=60 mL/min/1.73m^2) Est GFR (Non-Af Amer) 39 L (>=60 mL/min/1.73m^2) BUN/Creatinine Ratio 18.0 Glucose 127 H (74-106) mg/dL Lactate 2.3 H* (0.4-2.0) mmol/L Calcium 8.7 (8.5-10.1) mg/dL Total Bilirubin 0.5 (0.2-1.0) mg/dL AST 43 H (15-37) U/L ALT 84 H (14-59) U/L Alkaline Phosphatase 170 H (46-116) U/L Troponin I High Sens 18.0 (4.0-51.3) pg/mL NT-Pro-B Natriuret Pep 514.0 (<=900.0) pg/mL Total Protein 6.3 L (6.4-8.2) g/dL Albumin 3.0 L (3.4-5.0) g/dL Globulin 3.3 g/dL Albumin/Globulin Ratio 0.9 Influenza Type A Ag Positive A Influenza Type B Ag Negative SARS-CoV-2 Ag (CV2AG) Negative (NEGATIVE) ECG Data Attestation: I personally reviewed and interpreted this ECG as follows: (Sinus tachycardia at 110 bpm, normal axis, normal intervals, no acute ST segment elevation or T wave inversion) Discharge Plan Discharge Chief Complaint: Shortness of Breath/Dyspnea Clinical Impression: Influenza A, COPD with acute exacerbation Patient Disposition: Admitted as Observation Time of Disposition Decision: 02:36 Condition: Good Prescriptions / Home Meds: No Action Eliquis 5 mg tablet 5 mg PO Q12H Trulicity 1.5 mg/0.5 mL pen injector 1.5 mg SUBCUT .WEEKLY atorvastatin 20 mg tablet 20 mg PO .QD diltiazem HCl 240 mg capsule,extended release 24hr 240 mg PO Q24H dapagliflozin propanediol [Farxiga] 10 mg tablet 10 mg PO .QD lisinopril 5 mg tablet 5 mg PO .QD metoprolol tartrate 50 mg tablet 50 mg PO Q12H pantoprazole 40 mg tablet,delayed release (DR/EC) 40 mg PO .Q24 trazodone 50 mg tablet 50 mg PO .QHS trospium 20 mg tablet 20 mg PO Q12H albuterol sulfate 90 mcg/actuation HFA aerosol inhaler 2 inh inhalation Q6H PRN (Reason: shortness of breath or wheezing) ergocalciferol (vitamin D2) 1,250 mcg (50,000 unit) capsule glipizide 5 mg tablet insulin lispro 100 unit/mL insulin pen SUBCUT (DME) pen needle, diabetic [BD Ultra-Fine Short Pen Needle] 31 gauge x 5/16 needle MISCELLANEOUS (DME) lancets [OneTouch Delica Plus Lancet] 33 gauge misc MISCELLANEOUS insulin degludec [Tresiba FlexTouch U-100] 100 unit/mL (3 mL) insulin pen SUBCUT Print Language: Cook Islander Referrals: TJ CURRY [Primary Care Provider] - 1 week
[2024-11-06] MEDS: IPRATROPIUM/ALBUTEROL SULFATE 3 ML AMPUL.NEB IH (23:58)
[2024-11-07] VITALS (21 sets, daily range): BP systolic 95–131; BP diastolic 58–72; PULSE 84–114; TEMP 36.6–37.8; O2SAT 90–99; BMI 26.5
[2024-11-07 00:19] LABS: Basophils Percent Auto 0.2 % (0.2-2.0); Eosinophils Percent Auto 0.2 % (0.9-7.0); Hematocrit 40.5 % (36.0-48.0); Hemoglobin 12.9 g/dL (12.0-16.0); Immature Granulocytes Abs Auto 0.05 10^3/uL (0.00-0.03); Immature Granulocytes Pct Auto 0.6 % (0.0-0.5); Lymphocytes Absolute Auto 2.8 10^3/uL (1.2-3.8); Lymphocytes Percent Auto 33.6 % (20.5-60.0); Mean Corpuscular HGB Conc 31.9 g/dL (29.9-35.2); Mean Corpuscular Hemoglobin 27.2 pg (26.7-34.0); Mean Corpuscular Volume 85.4 fL (81.0-99.0); Mean Platelet Volume 8.3 fL (9.5-13.5); Monocytes Absolute Auto 0.8 10^3/uL (0.3-0.8); Monocytes Percent Auto 9.6 % (1.7-12.0); Neutrophils Absolute Auto 4.6 10^3/uL (1.4-6.5); Neutrophils Percent Auto 55.8 % (43.0-75.0); Platelet Count 107 10^3/uL (150-450); Red Blood Count 4.74 10^6/uL (4.20-5.40); White Blood Count 8.3 10^3/uL (4.0-11.0)
[2024-11-07] MEDS: METHYLPREDNISOLONE SOD SUCC PF 125 MG/2 ML VIAL IVP (00:25)
[2024-11-07] MEDS: MAGNESIUM SULFATE IN WATER 2 GM/50 ML PREMIX IV (00:25)
[2024-11-07 00:32] LABS: Influenza Virus A Antigen Positive; Influenza Virus B Antigen Negative; Internal Control Within Normal Limits; SARS-CoV-2 Ag NEGATIVE (NEGATIVE)
[2024-11-07 00:35] LABS: Alanine Aminotransferase 84 U/L (14-59); Albumin Globulin Ratio 0.9; Alkaline Phosphatase 170 U/L (46-116); Anion Gap 16.9; Aspartate Amino Transferase 43 U/L (15-37); Bilirubin Total 0.5 mg/dL (0.2-1.0); Calcium 8.7 mg/dL (8.5-10.1); Carbon Dioxide 21.1 mmol/L (21.0-32.0); Chloride 105 mmol/L (98-107); Estimated GFR (African America 47 (>=60 mL/min/1.73m^2); Estimated GFR (Non-African Ame 39 (>=60 mL/min/1.73m^2); Globulin 3.3 g/dL; Glucose 127 mg/dL (74-106); Sodium 139 mmol/L (136-145); Total Protein 6.3 g/dL (6.4-8.2)
[2024-11-07 00:46] LABS: Lactate/Lactic Acid 2.3 mmol/L (0.4-2.0)
[2024-11-07] MEDS: ONDANSETRON PF 4 MG/2 ML VIAL IV (00:48)
[2024-11-07] MEDS: ACETAMINOPHEN 325 MG TABLET 650 MG PO (01:39)
--- OUTSIDE RECORDS SUMMARY | 2024-11-07 03:02 | XMS_ITS | CCD ---
Author Organization [facility] Inform ion Partnership [facility] Care Team Providers Care Security Consultant Name Role Phone Lawanda Alvarez Unavailable Shaikh [...] DR LJ Persaud Attending Unavailyaneth BRENNAN, DR JL Persaud Admitting Unavailabl e FAWWAD, WATERS H [...] Admitting Unavailable FAWWAD, WATERS Primary Care Physician Shante Shukla Attending Unavailable FAWWAD, WATERS Referring Unavailable Orzech Shante X Attending Unavailable Orzech, Shnate X Admitting Unavailable Orzech, Shante X Attending Unavailable Orzech, Shante X Attending Unavailable Orzech, Shante X Admitting Unavailable Orzech, Shante X Attending Unavailable Estuardo Sanchez MD Primary Care Provider Ashley GARCIA, Tj Unavailable [phone] ALGHOTHANI, MOHAMAD Attending Unavailable ALGHOTHANI, MOHAMAD Attending [...] Sleep terror disorder (disorder) [facility] Anticholinergics (1 source) tiotropium; Translations: [tiotropium] Drug Allergy Pharyngeal swelling (finding), Tongue swelling (finding) [facility] Opioid Agonists (1 source) oxyCODONE; Translations: [oxycodone] Drug Allergy Sleep terror disorder (disorder) [facility] (13 sources) Acetaminophen / oxyCODONE; Translations: [acetaminophen-ox ycodone] Drug Allergy 03-31-20 16 Mental Status Change, Anaphylaxis, Sleep terror disorder (disorder) [facility] (9 sources) tiotropium; Translations: [tiotropium] Drug Allergy anaphylaxis, Pharyngeal swelling (finding), Tongue swelling (finding) [facility] (7 sources) Budesonide / formoterol Drug Allergy 03-31-20 22 Other: See Comments [facility] (20 sources) tiotropium Drug Allergy 03-31-20 16 Unknown [facility] (20 sources) oxyCODONE; Translations: [Oxycodone] Drug Allergy 05-01-20 19 Sleep terror disorder (disorder), Anxiety [facility] (4 sources) Acetaminophen / oxyCODONE; Translations: [Percocet] Drug Allergy 08-02-20 15 [facility] (20 sources) Acetaminophen / oxyCODONE; Translations: [OXYCODONE-ACETAM INOPHEN] Drug Allergy 08-12-20 15 Anxiety, Unknown, Anaphylaxis, Hallucinations [facility] (20 sources) Budesonide-Formot fernando Fumarate Drug Allergy 08-17-20 23 Swelling [facility] Medications Current Medications Medication Drug Class(es) Dates Sig (Normalized) Sig (Original) [id number] 200 actuat albuterol 0.09 mg/actuat metered dose [...] 10:19am May 12, 2022 8:02am Continuous Glucose Cloud Systems Architect (FreeStyle Toby 3 [place]) device (19 sources) Start: 05-03-2024 Continuous Glucose Cloud Systems Architect (FreeStyle Toby 3 [place]) device Indications: Type 2 diabetes mellitus with stage 3a chronic kidney disease, with long-term current use of insulin ([facility] ([facility] , Type 2 diabetes mellitus without complications ([facility]) 1 each Daily 1 each 05/03/2024 Active Continuous Glucose Sensor (FreeStyle Toby 3 Plus Sensor) misc (4 sources) Start: 05-03-2024 End: 05-31-2024 Continuous Glucose Sensor (FreeStyle Toby 3 Plus Sensor) misc Indications: Type 2 diabetes mellitus with stage 3a chronic kidney disease, with long-term current use of insulin ([facility]) ([facility]) , Type 2 diabetes mellitus without complications ([facility]) 1 each Daily for 28 days 2 each 11 05/03/2024 05/31/2024 Active dapagliflozin 10 mg oral tablet (20 sources) Sodium-Glucose Cotransporter 2 Inhibitor Start: 11-25-2023 End: 05-23-2024 take 1 tablet by mouth once daily Farxiga 10 MG Indications: Type 2 diabetes mellitus with stage 3a chronic kidney disease, with long-term current use of insulin ([facility]) ([facility]) TAKE 1 TABLET BY MOUTH EVERY DAY [...] every week ergocalciferol (Vitamin D-2) 1.25 MG (32197 UT) capsule Indications: Vitamin D deficiency Take [...] 28, 2018 10:17am take 1 capsule by [facility] every twenty-four hours Gabapentin 300 MG [...] 24, 2019 12:00am take 1 tablet by [facility] every twenty-four hours Potassium Chloride ER 20 [...] day(s), # 180 tab(s), Refills(s) 3, Pharmacy: [facility]/pharmacy #[id number], 155, cm, 05/09/24 9:05:00 EDT, [...] Comment on above: Take 1,000 mcg by [facility] once daily. 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; Translations: [UNIT AIDE TECH CURRENT USE OF INSULIN] Onset: 01-28-2022 Episodic Other aftercare (1 source) Other jail (current) drug therapy; Translations: [OTH UNIT AIDE TECH CURRENT DRUG THERAPY] Onset: 12-24-2021 Episodic Other aftercare (1 source) nursing home (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 oral hypoglycemic drugs; Translations: [ALF USE ORAL HYPOGLYCEMIC DX] Onset: 12-24-2021 Episodic Other aftercare (1 source) 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 exterminator (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 anticoagulants; Translations: [UNIT AIDE TECH CURRNT USE ANTICOAGULANTS] Onset: 12-24-2021 Episodic Other [...] on 10-18-2024 Glucose Blood, POC 142 mg/dL [facility] MICROALB CREAT RATIO RAN DOMon 10-14-2024 CREATININE URINE RANDOM 98.65 mg/dL 20.00 - 300.00 mg/dL [facility] Interpretation and review of laboratory results Abnormal [facility] MICROALBUM CREATININE RATIO UR 182.4 mg/g High 0.0 - 29.9 mg/g [facility] Comment on above: NO MICROALBUMINURIA 0-29 MG/G CLINICAL MICROALBUMINURIA 30-300 MG/G MACROALBUMINURIA >300 MG/G MICROALBUMIN URINE RANDOM 18 mg/dL NINF - 30.0 mg/dL [facility] Glucose (Bld) [Mass/Vol]Orde red By: Nalini Carrero on 08-15-2024 Glucose Blood, POC 249 mg/dL [facility] No Panel InformationOrdered By: Nalini Carrero on 08-15-2024 [facility] POCT glycosylated hemoglobin (Hb A1C) docked deviceon 08-15-2024 HbA1c (Bld) [Mass fraction] 7 % [facility] Office Visiton 08-04-2024 Follow-up visit [id number] Robina Ron 1950 F Date Provider Department Center 08/04/2024 Dorota-EDD [facility] Family History Problem Relation Age of Onset Pulmonary embolism Father Family Status - Relation Status Age at Father Level of Service:72775 AR OFFICE/OUTPATIENT ESTABLISHED LOW MDM 20 MIN [facility] HbA1c (Bld) [Mass fraction]o n 08-01-2024 Interpretation and review of laboratory results Abnormal [facility] Laboratory - Hematology and Cell countson 08-01-2024 HbA1c (Bld) [Mass fraction] 6.6 % [facility] FACTOR V LEIDEN MUTATIONon 0 06-05-2024 Interpretation and review of laboratory results Abnormal [facility] FACTOR V LEIDEN MUTATION Comment Abnormal . 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 See Additional Clinical Information and Comments. Additional Clinical Information: Venous thromboembolism is a multifactorial disease influenced by genetic, environmental, and circumstantial risk factors. The c.1601G>A (p. Smg658Gsq) variant in the F5 gene, commonly referred [...] c.*97G>A variant and Factor V Leiden (PMID: 37254761). Additional risk factors include but are not [...] health care providers to discuss results at [phone] [id number] Test Details: Variant Analyzed: c.1601G>A (p. Uqu297Lnr), referred to as Factor V Leiden Methods/Limitations: [...] developed and its performance characteristics determined by [employer]. It has not been cleared or approved by the Food and Drug Administration. References: Gualberto S, Vika AK, Berman R, Gary WW, Justin LEAHY; ACMG Professional Practice and Guidelines Committee. Addendum: [place] [employer] consensus statement on factor V Leiden mutation testing. Jennifer Med. 2020Nov 15. doi: 10.1038/n71350-486-13686-i. PMID: 96375910. Keira MORENO. Factor V Leiden Thrombophilia. 1998January 24 (Updated 2018 Stanley 4). In: Tray MP, Raul HH, Shahida RA, et al., editors. Rayna(Bethanie) (Internet). [place] ([place]): [facility]; [phone]. Available from: https://www.ncbi.nlm.nih.gov/books/HQK8616/ Kirit S, Vika AK, Jones X, Ranjan B, Malia EB, Janina P, Chetan CS; ACMG Laboratory Survey Rodman Committee. Venous thromboembolism laboratory testing (factor V Leiden and factor II c.*97G>A), 2018 update: a technical standard of the [place] [employer] and Genomics (ACMG). Jennifer Med. 2018 Aug;20(12):1182-6545. doi: 10.1038/[id number]-c. Epub 2017Jun 17. PMID: 54520189. [facility] REVIEWED BY Comment . [facility] Comment on above: Technical Component performed at [facility] RT Professional Component performed by: Sangarts Xavi Rogers, Ph.D., [facility] Director, Molecular Genetics [address] [place] [address] [place] [address] Performed at: - [facility] RTP [address] [place], [place] [id number] Home Care Provider: Fidelina Vasquez [facility], Phone: [phone] [facility] No Panel Informationon 05-18 [facility] PROTEIN C-FUNCTIONALon 05-18 PROTEIN C-FUNCTIONAL 159 % 73 - 180 % [facility] Comment on above: Performed at: [address] [id number] Home Care Provider: Katlyn Shabazz MD, Phone: [phone] PROTEIN S-ANTIGENon 05-18-20 24 PROTEIN S, FREE 103 % 61 - 136 % [facility] PROTEIN S, TOTAL 117 % 60 - 150 % [facility] Comment on above: This test was develo ped and its performance characteristics determined by [employer]. It has not been cleared or approved [...] AMALIA Shukla APRN, BRENDA Shukla APRN-Marbin, Shante Fery X FINAL REPORTS Final Report [] Verified [...] Locations R1: This test was performed at: [facility], [address] [place] [address], [address] , , [facility] Comment on above: Performed By: #### 2 [id number] #### [facility] Laboratory [address] [place] [address] Ambulatory Visit Summaryon 0 05-09-2024 Ambulatory Visit [...] Duration: 90 Days Refills: 3 Pickup at [facility]/pharmacy #[id number] Unchanged atorvastatin (atorvastatin 20 mg Tab) 90 [...] physician if questions or concerns Pharmacy Information [facility]/pharmacy #[id number]: [address] [place], [place] [id number] [phone] What How Much When Comments Stop Taking [...] with voice recognition artificial intelligence software, specifically [employer], Zeus and or [employer]. Substitutions may have occurred due to the [...] BID, # 60 tab(s), Refills(s) 2, [id number], cm, 02/29/24 10:38:00 EDT, Height/Length Dosing, 66.5, kg, 02/29/24 10:38:00 EDT, Weight Dosing trospium, 20 mg = 1 tab(s), Oral, BID, X 90 day(s), # 180 tab(s), Refills(s) 3, [id number], [facility], cm, 05/09/24 9:05:00 EDT, Height/Length Dosing, 66.5, kg, 05/09/24 9:05:00 EDT, Weight Dosing 45288 Measure Post Void residual urine and/or bladder capacity by US- non-imaging Urine Culture Urnls Dip Stick Auto w/o Microscopy POC 72820 2. Mixed incontinence (N39.46: Mixed incontinence) UUI >>> LEW See #1 Ordered: 67406 Measure Post Void residual urine and/or bladder capacity by US- non-imaging Urine Culture Urnls Dip Stick Auto w/o Microscopy POC 90683 3. Asymptomatic microscopic hematuria (R31.21: Asymptomatic microscopic [...] Improved to 2 times per night Ordered: 02775 Measure Post Void residual urine and/or bladder capacity by US- non-imaging Urine Culture Urnls Dip Stick Auto w/o Microscopy POC 26721 5. Unspecified urethral stricture, female (N35.92: Unspecified urethral stricture, female) s/p cystoscopy/UD 01/09/2019 by ELHAM [1] Ordered: 86078 Measure Post Void residual urine and/or bladder capacity by US- non-imaging Urine Culture Urnls Dip Stick Auto w/o Microscopy POC 63050 6. Glucosuria (R81: Glycosuria) 3+ on UA [...] WITH AUTO DIFFon BASOPHILS ABSOLUTE AUTO 0.0 [facility] Basophils/100 WBC (Bld) 0.3 % 0.2 - 2.0 % [facility] Eosinophils/100 WBC (Bld) 1.2 % 0.9 - 7.0 % [facility] Erythrocyte distribution width (RBC) [Ratio] 14.1 % 11.0 - 15.0 % [facility] Hematocrit (Bld) [Volume fraction] 42.8 % 36.0 - 48.0 % [facility] Hemoglobin (Bld) [Mass/Vol] 14.1 g/dL 12.0 - 16.0 g/dL [facility] IMMATURE GRANULOCYTES ABS AUTO 0.07 High [facility] Immature granulocytes/100 WBC (Bld) 0.6 % High 0.0 - 0.5 % [facility] Interpretation and review of laboratory results Abnormal [facility] LYMPHOCYTES ABSOLUTE AUTO 3.0 [facility] Lymphocytes/100 WBC (Bld) 26.4 % 20.5 - [...] [facility] Office Visiton 05-08-2024 Follow-up visit [id number] AriadneRobina vIette 1950 Date Provider Department Center 05/08/2024 EDD VAZQUEZ Family History Problem Relation Age of Onset Pulmonary embolism Father Family Status - Relation Status Age at Father Level of Service:46898 [place] OFFICE/OUTPATIENT ESTABLISHED LOW MDM 20 MIN [facility] 36on 04-11-[address] Wade reviewed patient's echo from 04/05/2024 and said it was ok. Spoke with patient and made her aware. She was unable to schedule Oct follow up because she didn't have her son's schedule with her. I advised she would get a phone call in May to schedule an apt for Oct. She verbalized understanding. [facility] Office Visiton 03-14-2024 Follow-up visit [id number] Robina Ron Ivette 1950 Date Provider Department Center 03/14/2024 EDD VAZQUEZ Family History Problem Relation Age of Onset Pulmonary embolism Father Family Status - Relation Status Age at Father Level of Service:39031 AR OFFICE/OUTPATIENT ESTABLISHED MOD MDM 30 MIN [facility] Coding Summary.on 03-07-2024 Coding Summary. VDHABzig63KLd5gEf+PG h lYWQ+WE9AUGElN24zuGUc dR6eR3LDADaSPxuvAYCDJ ZuTHtOwxfAtYU1cjQJxLJ Ju IC8+ZJ3nRGPtRfmetBSip 0V4sEM5Y22ota9bJRxbjE H1ZXVwUgIjpfwtp9plsEd 6IDcuNmluOyBt ILFxgU30KGL6lX70Tj08w NWhsRGqq9totAg1JfCyFO WoEPX5nIwaXAlif8ZyYVV wL91gjZCpk0T6 NBOyzHcufDFyYtYrwAC6s O6fWRzbpviwh3wpuqgzGj a6qy38mOEvy2N6cZM6I8P dzyX6BGSqnVBt VsocyZEFlI5abvask9ljm mvyBoSmKYXgBAi4VJn9OX CrjSwgLqDbUL91WAS5EIK lwnWmD3YqFUTf jNekGmE1w6H2Pg4JB8GJF exwA9SSHVTTTMxpiTW+PC 16tg17D3CvOqtcUcz3BAN sAQG1zQF7fI0k CGFuOKvrm7A5qXT4C3Quf hKqks8jd2ymVSYdOIqtB3 0wsSVoa5B4XRXdlQG8XGP isEqsIoBnbM17 Oyc+ROBjlLwtm3MrIjeau 5jfy5kpaEu4KninGFAvok OyqJrvNSI0c2HnTx3yLJT lxIU8nMF2bH5l IkPkSlM1ELpgH621OfJhi CItCwrhC78sA3BdtCL+PH UjHob7PYJfjRspGZ7lH2X hZGRpbmctbGVm sVbmLT1qIJJvkiepBYBzf L4fRFTgW0p9ShEjJjU1YV riA3WyNGZjukkoUb02eV4 vQxRdOkL6URld R7MvecD2TXUdyFHwTKayJ PA5U73an2C9BAVsTUZnWQ Q1zKO9nN6qhLawirmywLL mdDsgdmVydGlj XUhcFTzeA395HQTruXodY kNvZGluZyBEYXRlOiAgMD YvMjUvMjAyNDwvdGQ+PHR lLFE2xGatXCYu oXEuMEmiIs0mlItjlZlcN R4kGKNiivlfZGQomL2gGW VifUZalGkwQC3wCIVrvus ps473LzAbCBT2 XBWtvPJjR1AhlC3lDdWsM MKxZQZrE3IhtKScESlpS2 47BPjgVgT2BOYannByK1D sLWFsaWduOiB0 t2T8Jq0Xl3YvxxvuM1Fay BBcWhPqPcuhVCu5F9EsDi wvdHI+QG82LLZdWL88NNl 9KJL3eGthYFhc BZPeT5SnaG7kZpYeDQTrY GRkOyc+PHRhYmxlIHdpZH RoPScxMDAlJyBzdHlsZT0 rIo7pGQKzZIBq eDxjkCAaNzXpk4hqBAPdU OhjCV0fuKbuM6EmhEY2KN Pow9l2Np01I33oO1PmqAB +OXSfqLH4jHG6 iG2iLjOdYfK4EKcrY777P vAjoUUcBlaih6vom5mzyA x8YoI7VRQkqjEhaWlxVMP 0c1IbDv39D09c IHdpZHRoPSIxNSUiIHZhb Dnnqy5prM9hDi3+PGNvbC F2eOW0cV4uDwEbSwD1FLy dN461IhAoiVEi Syuwq2sdm5wryZp6SiRtV ZArojRyaUtkSOW0c5IrTr 20E5OjiNzfl1JzStf9td1 5pZLnp3F4wZR0 A8VmZGHmcfslyVFzxNtoI P3oKHOqoadbWTSwoN5zWV JbG1r7TmUeCnR4ZPmqB8D cjwR2ARFfrGHi DWJaqXQUjW1qvbelo7wbb dxlUgEfRXOvOTy3PSd9DG KqzHckTdMiVDW6ArF9YRW 9bTEldV9zyHcw sffrnH9lNqy+QAH0zZTlp ZZNDZ3nUmqprSQ+PHRkIH P0vRvbRKyzNTKrsS7aUKF yN1d4XoKbTdP9 CSslE3XjkzH4RXYryPMdS DMxqHGGxQ5ddeihz9zcmr caVcHlLDAsCZt3FRf9JEK saWduOiBsZWZ0 GsK0JUP8qYFmdV0kuPawi fusaX4dDhh+QmlydGggRG K4YGs0D4WrRqr8DNKgoOi eVJ9csDZuDLcl Xf3hwIvwnHbkRQ9eBAKhi smxu405PeFvs6ljUJDheM QbGGqvHQS4A87qj1Z7LOD aXYDsWYB7gJW5 nZ2cdLkptoxuiDLemFaqn gPhpVanGJubKApbD155RP QepAqvIyHbRSf8W1UfUbm 9DOXluLwfTA6w zNJhAKmxAh7crQvkkXeiS U4gBRHwgnekh677PnUih3 bqQYBvpHZeOFxmGYH1S67 xd9X2UCUvUQHd HWQ1wFJ5tZ2ujJhxhciwu GVmdDsgdmVydGljYWwtYW oyI939IKHauFekDcJtvEo 2Z3GaRxg8NYIx cZcnHV4phEEzMVkxCt3cv LexdJeiTG7bHNVzjdwqx9 46TfZkz0nvRJAptGWfIAe oJWN7B01ut4L1 NKHdAONjQAY8oOV2mK9qi GlnbjogbGVmdDsgdmVydG lpMFosUGxfW371VUQakSt nPlBhdGllbnQg HLtoTMw1B8RmMshajCD+P M14VJEwWQ00xABurVUka6 kjfNu8VqSfEJCuUGV8mIa yNBbxi9CpBWWw C83upUAjg5E5IMZbhRiju HPhMePnnQZ7aO1dOQjeya rhz8mzioseSpzof9mtin3 2hO16V16yVAqy ZHRoPSIzMCUiIHZhbGlnb v1hkC1iUq4+TEJqiCO4yI Z0kC7jBINhCdB7TItgH98 9InRvcCIvPjxj q7stp2jjqAl1HaR6LZIpm tGygVcrSXB5j5NcAy63Z3 9sIHdpZHRoPSIyMCUiIHZ ewSugah2leM9p Ii8+EEIwcHF7pBQ0mF9iC kItNbF7MNufD899DkNqbY RnPksaM09fZ8JlwTJ+PHR qAct0QPQpeLqv FI2uuHAnAQlgHl6oLHR2K hPvMgJeNGfkB2ZjCFGvmm cdwgotuYY6PZOhXOPkqY1 2Uk0mfJkcCRLe kLQWgO2xmxlim8akxapmJ eLdXCPfVHz1TEy6EXZrmJ doEnSnWLY6OqN7WPO3oLQ vgN6qaCoolmew pX2hM6IcZKGopcecHk48q Z3pEsDfEdP6MIpcAfw+TE JQRGahZ1VDLVbMXG3hFNl vdGQ+PHRkIHN0 xUdsZZssCDAqyM2oWUZgF 7r4KzPcSbN9OBazI9AuVH UqiilcSc14eD6rLtYiCbG 0BVuqV3HlmhY4 PDShyUGhVXwcCQF4J25vo 7X3UGZkYLQyECC0hAZ3rN 1hbGlnbjogbGVmdDsgdmV ydGljYWwtYWxp H944OLRseAtzFxGdMhNqC rM9AUR5A8LhKqc1TXGmpJ crBD2upOMiDUpxJd2daZv kaDpnXB7aUJRm wxqdBBLezW9vTRLbsAMce MqmPU7sTHCczwogr668Pu NiLXK8PALefPFkW4CzsK7 yOiAjMDAwMDAw Z4DixEDpPVauH601DWhoJ rS3QTKtcqCzR8JuQPDapK brHuW2c7V5Sl04ZxTGMMF yczwvdGQ+PHRk GUR8dFpwWRkgNZBdrR7oE BHsO6y6JtNsFkB6OWdvD1 AuIFRqkwnqYq93eN5iYjE qNxE4OHzjL9Fj wpZ5HZEtwOPnFZlwWZC8L 15fx1Q7UFSfJVTsBNJ1nS Y3pK7cgBeylyhpbIJcwRd gdmVydGljYWwt MNdjI400WAPvjLseYaNsr WFsZTwvdGQ+XDXpTLE4iP smXKjgHYGgsJ5qKGUtJ5t 8UwMlYzN1PXee O8WhZRRgfprhCf13mK5tH nQtVgW4SLusO9MerhJ3QW OkeXSwHUtpYHY7Y20ol6I 9MBMhWQAdZCX7 gGZ5rF8uvVayrjryvHXjw DsgdmVydGljYWwtYWxpZ2 82QYDbaEozAxapRyKPmh8 lQE1wSumumKY+ SD45iv68G5AwMpbaLnc5S MHgDMB9zQA1mN2nMBXpMO dop5K8oWV6M1YafdGbgj5 op8yuFZZqQZla K99qdZWne3C3YABztII7E OIwlEzuZlTsyF97Leq+PG HnlQxgt0NpXofwx5xxp1s hgZc5FoHuIYQt shQsxOixFUK9f1NeKh60D 29sIHdpZHRoPSIzMCUiIH AolNavjm3fgV5mWm8+PGN hcMW5fLB7yK1v KqQwRlH8CPotK489CrQhj GWoNmlaz3fec3bmgGb8Ya TbJUWzrrBdaQgeVDN3m2W pEq46H3CcpAln y1PuHxw1io14rKIsd8G0p VR3Q9RoRUCbcbegsROvjO aiKI9dYQBszjedPAFehV2 iFIWpN8p6BkMw FvV6BTxlC9ZubwB9QHKdc ENwTDWpySNGgK2cdwbiu6 haobdyShIfWMNsLUr8ZJm 0LWFsaWduOiBs ZLH0YcJ1VMQ4jVTebB7mj TzbnofrsF0bMff+UGh5c2 iqeAIhHA8jiZQ2LM41YR1 1yGTqx9S4lEM2 D0GtIQFuqkwtsgyvvRE7L HFjMLLpeH63Tq1yhHleCn 8tBMQvYGL1TQTywXIlS6C nuW3pFuVaUZIc QDWxS9SxxQSyIDbiF884K QjaIxQ3SISexqVuE0NzNA UjhEsyMgB3q9B1Wk6KFX1 3EB06SJ24vMIi f6V7oHW3B7XtPIBrzqsqt yvtkJX1YNVdIQRseF02Yw 8cjVewQj5sEWQaJMC1TAH poLAbG5SedT2e SaCqRPBuODPkN5FrfKRcJ AgbS148KOxvLqV3YDKkkf BjQ8RqVHJxbCaeWfW6y6E 3Yi4CEm44BB02 WC45xNNcp2R9zGV0W7OsP LPwmhloithskFW4HARkVS TkgP38Zo5fyYjgYa8dATG jFOC7MIDtnSGf D9LaoZ1cGlVvXFQkBHNtW 9SaaKDpSOzbQ074MDkiIe C5CAPoymMyM7GdZRKrvIv wWrV8y9F4Fo8W XBrmlfw0T9TjElczhKM+P B39SRGpQZ34qGAipMTfr5 bcnHy8VqHpOARzIZM6zUq wEEfgm6KpOGMc U68rnTLpa0Z6O (more content not included)... Normal [facility] Patient Educationon 03-05-20 Patient Education Obstetrics and [...] health care provider. General instructions ? Take sxxc-ykp-aumrpjy and prescription medicines only as told by [...] Locations R1: This test was performed at: [facility], [address] [place] [address], [facility]- , , [facility] Comment on above: Performed By: #### 2 [id number] #### [facility] [address] [place] [address] Physician Referralon 024 Physician Referral [id number]#1. 00TIFF [facility] Screenson 03-01-2024 Screens [id number]# 1.00TIFF [facility] Ambulatory Visit Summaryon 0 02-29-2024 Ambulatory Visit Summary ROBINA RON :1950 Visit Date:02/29/2024 Ambulatory Visit Instructions Your Diagnosis OAB (overactive bladder) Your Care Team Attending Physician - Orzech BRIM [employer], [employer] VICE PRESIDENT-C, Shante X Primary Care Physician - SHAIKH [...] 2021 ADA RECOMMENDATION SEE BELOW Normal [facility] Comment on above: Result Comment: ADA RECOMMENDED LIMIT 4.0 - 6.0 ADA THERAPEUTIC TARGET < 7.0 ACTION SUGGESTED > 7.0 Performed By: #### A 1C #### [facility] [address] [place] [address] Dr. Julisa Lowe Glucose [Mass/Vol] 235 mg/dL Normal [facility] Comment on above: Performed By: #### A 1C #### [facility] [address] [place] [address] Dr. Julisa Lowe HbA1c (Bld) [Mass fraction] 9.8 % Critically high 4.5-6.2 [facility] Comment on above: Performed By: #### A 1C #### [facility] [address] [place] [address] Dr. Julisa Lowe PROF CHEM 8 (BAS METB)on Anion gap [Moles/Vol] 17.7 mmol/L Normal [facility] Comment on above: Performed By: #### B MP #### [facility] [address] [place] [address] Dr. Julisa Lowe Calcium [Mass/Vol] 9.3 mg/dL Normal 8.5-10.1 [facility] Comment on above: Performed By: #### B MP #### [facility] [address] [place] [address] Dr. Julisa Lowe Chloride [Moles/Vol] 107 mmol/L Normal 98-107 [facility] Comment on above: Performed By: #### B MP #### [facility] [address] [place] [address] Dr. Julisa Lowe CO2 [Moles/Vol] 24.3 mmol/L Normal 21.0-32.0 [facility] Comment on above: Performed By: #### B MP #### [facility] [address] [place] [address] Dr. Julisa Lowe Creatinine [Mass/Vol] 0.90 mg/dL Normal 0.55-1.02 [facility] Comment on above: Performed By: #### B MP #### [facility] [address] [place] [address] Dr. Julisa oLwe EGFR-AF PALESTINIAN >60 Normal >=60 [facility] Comment on above: Performed By: #### B MP #### [facility] [address] [address] [address] Julisa Lowe EGFR-NON AF PALESTINIAN >60 Normal >=60 [facility] Comment on above: Performed By: #### B MP #### [facility] [address] [address] [address] Julisa Lowe Glucose [Mass/Vol] 196 mg/dL Critically high 74-106 [facility] Comment on above: Performed By: #### B MP #### [facility] [address] [address] [address] Julisa Lowe Potassium [Moles/Vol] 5.0 mmol/L Normal 3.5-5.1 [facility] Comment on above: Performed By: #### B MP #### [facility] [address] [address] [address] Julisa Lowe Sodium [Moles/Vol] 144 mmol/L Normal 136-145 [facility] Comment on above: Performed By: #### B MP #### [facility] [address] [address] [address] Julisa Lowe Urea nitrogen [Mass/Vol] 33.0 mg/dL Critically high 7.0-18.0 [facility] Comment on above: Performed By: #### B MP #### [facility] [address] [address] [address] Julisa Lowe Urea nitrogen/Creatinine [Mass ratio] 36.7 mg/mg Normal [facility] Comment on above: Performed By: #### B MP #### [facility] [address] [address] [address] Julisa Lowe Basophils Auto (Bld) [#/Vol] Ordered By: Hood Patel on 05-12-2022 Basophils (Bld) [#/Vol] 0.1 10*3/uL 0.0-0.2 [facility] Basophils/100 WBC Auto (Bld) Ordered By: Hood Patel on 05-12-2022 Basophils/100 WBC (Bld) 0.7 % . [facility] Blood hemoglobin measurement (mass/volume)Ordered By: Hood Patel on 05-12-2022 Hemoglobin (Bld) [Mass/Vol] 11.8 g/dL 11.8-15.4 [facility] Blood leukocytes automated c ount (number/volume)Ordered By: Hood Patel on 05-12-2022 WBC (Bld) [#/Vol] 7.6 10*3/uL 4.5-11.0 [facility] CT biopsyOrdered By: Merna Patel on 05-12-2022 Transferrin [Mass/Vol] 206 mg/dL 180-380 [facility] Complete Blood Count Auto Di ffon 05-12-2022 Basophils (Bld) [#/Vol] 0.1 10*3/uL Normal 0.0-0.2 [facility] Comment on above: Result Comment: PERF ORMED BY: [place] [address] PATHOLOGIST DEPARTMENT CLINICIAN JENY DODGE M.D. Performed By: #### F E and TIBC, KATHY, [id number], CBC #### [facility] [address] Basophils/100 WBC (Bld) 0.7 % Normal . [facility] Comment on above: Performed By: #### F E and TIBC, KATHY, [id number], CBC #### [facility] [address] Eosinophils (Bld) [#/Vol] 0.1 10*3/uL Normal 0.0-0.45 [facility] Comment on above: Performed By: #### F E and TIBC, KATHY, [id number], CBC #### [facility] [address] Eosinophils/100 WBC (Bld) 1.6 % Normal . [facility] Comment on above: Performed By: #### F E and TIBC, KATHY, [id number], CBC #### [facility] [address] Erythrocyte distribution width (RBC) [Ratio] 27.8 % High 11.9-15.3 [facility] Comment on above: Performed By: #### F E and TIBC, KATHY, [id number], CBC #### [address] Hematocrit (Bld) [Volume fraction] 37.5 % Normal 34.0-46.4 [facility] Comment on above: Performed By: #### F E and TIBC, KATHY, [id number], CBC #### [address] Hemoglobin (Bld) [Mass/Vol] 11.8 g/dL Normal 11.8-15.4 [facility] Comment on above: Performed By: #### F E and TIBC, KATHY, [id number], CBC #### [address] Lymphocytes (Bld) [#/Vol] 2.4 10*3/uL Normal 1.00-4.8 [facility] Comment on above: Performed By: #### F E and TIBC, KATHY, [id number], CBC #### [address] Lymphocytes/100 WBC (Bld) 32.0 % Normal . [facility] Comment on above: Performed By: #### F E and TIBC, KATHY, [id number], CBC #### [address] MCH (RBC) [Entitic mass] 24.2 pg Low 24.7-34.3 [facility] Comment on above: Performed By: #### F E and TIBC, KATHY, [id number], CBC #### [address] MCV (RBC) [Entitic vol] 76.9 fL Low 80-100 [facility] Comment on above: Performed By: #### F E and TIBC, KATHY, [id number], CBC #### [address] Mean Corpuscular HGB Conc 31.4 g/dL Low 32.0-35.0 [facility] Comment on above: Performed By: #### F E and TIBC, KATHY, [id number], CBC #### [facility] [address] Monocytes (Bld) [#/Vol] 0.4 10*3/uL Normal 0.0-0.8 [facility] Comment on above: Performed By: #### F E and TIBC, KATHY, [id number], CBC #### [facility] [address] Monocytes/100 WBC (Bld) 5.8 % Normal . [facility] Comment on above: Performed By: #### F E and TIBC, KATHY, [id number], CBC #### [address] Neutrophils (Bld) [#/Vol] 4.6 10*3/uL Normal 1.8-7.7 [facility] Comment on above: Performed By: #### F E and TIBC, KATHY, [id number], CBC #### [address] Neutrophils/100 WBC (Bld) 59.9 % Normal . [facility] Comment on above: Performed By: #### F E and TIBC, KATHY, [id number], CBC #### [place] [address] [place] Nucleated RBC/100 WBC (Bld) [Ratio] 0.2 % Normal 0-0.5 [facility] Comment on above: Performed By: #### F E and TIBC, KATHY, [id number], CBC #### [address] Platelet mean volume (Bld) [Entitic vol] 6.5 fL Normal 6.3-10.7 [facility] Comment on above: Performed By: #### F E and TIBC, KATHY, [id number], CBC #### [facility] [address] Platelets (Bld) [#/Vol] 231 10*3/uL Normal 150-450 [facility] Comment on above: Performed By: #### F E and TIBC, KATHY, [id number], CBC #### [facility] [address] RBC (Bld) [#/Vol] 4.88 10*6/uL Normal 3.60-5.00 [facility] Comment on above: Performed By: #### F E and TIBC, KATHY, [id number], CBC #### [facility] [address] WBC (Bld) [#/Vol] 7.6 10*3/uL Normal 4.5-11.0 [facility] Comment on above: Performed By: #### F E and TIBC, KATHY, [id number], CBC #### [facility] [address] Eosinophils Auto (Bld) [#/Vo l]Ordered By: Hood Patel on 05-12-2022 Eosinophils (Bld) [#/Vol] 0.1 10*3/uL 0.0-0.45 [facility] Eosinophils/100 WBC Auto (Bl d)Ordered By: Hood Patel on 05-12-2022 Eosinophils/100 WBC (Bld) 1.6 % . [facility] Erythrocyte distribution wid th Auto (RBC) [Ratio]Ordered By: Hood Patel on 05-12-2022 Erythrocyte distribution width (RBC) [Ratio] 27.8 % 11.9-15.3 [facility] Ferritinon 05-12-2022 Ferritin [Mass/Vol] 218.6 ng/mL Normal 11-306.8 [facility] Comment on above: Performed By: #### F E and TIBC, KATHY, [id number], CBC #### [facility] [address] Ferritin [Mass/volume] in Se rum or PlasmaOrdered By: Hood Patel on 05-12-2022 Ferritin [Mass/Vol] 218.6 ng/mL 11-306.8 [facility] Folate [Mass/volume] in Seru m or PlasmaOrdered By: Hood Patel on 05-12-2022 Folate [Mass/Vol] 7.9 ng/mL >5.9 [facility] Comment on above: Folate reference ran ge: >5.9 ng/ml The WHO technical consultation on folate and vitamin b12 deficiencies has determined that folate concentrations less than 4 ng/ml are considered deficient. Glucose Glucometer (BldC) [M ass/Vol]Ordered By: Hood Patel on 05-12-2022 Glucose [Mass/Vol] 426 mg/dL [facility] Comment on above: Random Glucose Refer ence Range is dependent on time and content of last meal. Glucose of more than 200 mg/dL in a nonstressed, ambulatory subject supports the diagnosis of Diabetes Mellitus. Glucose Poct Glucometerson 0 05-12-2022 Commemt1 Normal [facility] Comment on above: Result Comment: Glu2 : Result Not Confirmed PERFORMED BY: [facility] [address] [place] [address] PATHOLOGIST DEPARTMENT CLINICIAN JENY DODGE M.D. Performed By: #### G LULS #### Point of Care testing , Glucose [Mass/Vol] 426 mg/dL Off scale [facility] Comment on above: Result Comment: [place] Glucose Reference Range is dependent on time and content of last meal. Glucose of more than 200 mg/dL in a nonstressed, ambulatory subject supports the diagnosis of Diabetes Mellitus. Performed By: #### G LULS #### Point of Care testing , Hematocrit Auto (Bld) [Volum e fraction]Ordered By: Hood Patel on 05-12-2022 Hematocrit (Bld) [Volume fraction] 37.5 % 34.0-46.4 [facility] Iron [Mass/volume] in Serum or PlasmaOrdered By: Hood Patel on 05-12-2022 Iron [Mass/Vol] 48 ug/dL 40-150 [facility] Iron and TIBC Profileon 08- 0 % Iron Saturation 16.0 % Low 20-50 [facility] Comment on above: Performed By: #### F E and TIBC, KATHY, [id number], CBC #### [facility] [address] Iron [Mass/Vol] 48 ug/dL Normal 40-150 [facility] Comment on above: Performed By: #### F E and TIBC, KATHY, [id number], CBC #### [facility] [address] Total Iron Binding Capacity 288 ug/dL Normal 255-450 [facility] Comment on above: Performed By: #### F E and TIBC, KATHY, [id number], CBC #### [address] Transferrin [Mass/Vol] 206 mg/dL Normal 180-380 [facility] Comment on above: Performed By: #### F E and TIBC, KATHY, [id number], CBC #### [address] Iron binding capacity [Mass/ volume] in Serum or PlasmaOrdered By: Hood Patel on 05-12-2022 Iron binding capacity [Mass/Vol] 288 ug/dL 255-450 [facility] Iron saturation [Mass Fracti on] in Serum or PlasmaOrdered By: Hood Patel on 05-12-2022 Iron saturation [Mass fraction] 16.0 % 20-50 [facility] Los 05-12-2022 L - -------- Specimen: [id number] Received: 05/12/22 Status: CORRY Chopra Num: [id number] Spec Type: Surgical Subm Dr: Hood Patel MD Tissues: A Duodenum - Biopsy (DUODENAL BX) Procedures: HE Stain/2, Gross/Micro L4 -------- Age/ Patient Sex Location Account Attending Physician -------- Robina Ron 71/F [id number] Hood Patel MD -------- SPEC NUM: [id number] RECD: 05/12/22 STATUS: CORRY CHOPRA NUM: [id number] PROSPER: 05/12/22 [facility] DR: Hood Patel MD ENTERED: 05/12/[address] [facility] [address]: VELASQUEZ TYPE: Surgical DEPT: S ORDERED: [...] microscopic findings support the above pathologic diagnosis. [id number] -------- -------- Specimen: [id number] Received: 05/12/22 Status: CORRY Chopra Num: [id number] Spec Type: Surgical Subm Dr: Hood Patel MD Tissues: A Duodenum - Biopsy (DUODENAL BX) Procedures: HE Stain/2, Gross/Micro L4 -------- Patient: Robina Ron [id number] (Continued) -------- Signed (signature on file) Jeny Dodge MD 05/13/22 1656 Normal [facility] - Chemistry and C hemistry - challengeOrdered By: Hood Patel on 05-12-2022 Cobalamin (Vitamin B12) [Mass/Vol] 277 pg/mL 180-914 [facility] - Hematology and Cell countsOrdered By: Hood Patel on 05-12-2022 Nucleated RBC/100 WBC (Bld) [Ratio] 0.2 % 0-0.5 [facility] Lymphocytes Auto (Bld) [#/Vo l]Ordered By: Hood Patel on 05-12-2022 Lymphocytes (Bld) [#/Vol] 2.4 10*3/uL 1.00-4.8 [facility] Lymphocytes/100 WBC Auto (Bl d)Ordered By: Hood Patel on 05-12-2022 Lymphocytes/100 WBC (Bld) 32.0 % . [facility] MCH Auto (RBC) [Entitic mass ]Ordered By: Hood Patel on 05-12-2022 MCH (RBC) [Entitic mass] 24.2 pg 24.7-34.3 [facility] MCHC Auto (RBC) [Mass/Vol]Or dered By: Hood Patel on 05-12-2022 MCHC (RBC) [Mass/Vol] 31.4 g/dL 32.0-35.0 [facility] MCV Auto (RBC) [Entitic vol] Ordered By: Hood Patel on 05-12-2022 MCV (RBC) [Entitic vol] 76.9 fL 80-100 [facility] Monocytes Auto (Bld) [#/Vol] Ordered By: Hood Patel on 05-12-2022 Monocytes (Bld) [#/Vol] 0.4 10*3/uL 0.0-0.8 [facility] Monocytes/100 WBC Auto (Bld) Ordered By: Hood Patel on 05-12-2022 Monocytes/100 WBC (Bld) 5.8 % . [facility] Neutrophils Auto (Bld) [#/Vo l]Ordered By: Hood Patel on 05-12-2022 Neutrophils (Bld) [#/Vol] 4.6 10*3/uL 1.8-7.7 [facility] Neutrophils/100 WBC Auto (Bl d)Ordered By: Hood Patel on 05-12-2022 Neutrophils/100 WBC (Bld) 59.9 % . [facility] No Panel InformationOrdered By: Hood Patel on 05-12-2022 Bedside Glucose Comment See comment [facility] Comment on above: Glu2: Result Not Con firmed Platelet mean volume Auto (B ld) [Entitic vol]Ordered By: Hood Patel on 05-12-2022 Platelet mean volume (Bld) [Entitic vol] 6.5 fL 6.3-10.7 [facility] Platelets Auto (Bld) [#/Vol] Ordered By: Hood Patel on 05-12-2022 Platelets (Bld) [#/Vol] 231 10*3/uL 150-450 [facility] RBC Auto (Bld) [#/Vol]Ordere d By: Hood Patel on 05-12-2022 RBC (Bld) [#/Vol] 4.88 10*6/uL 3.60-5.00 [facility] Vit. B12/Folate Profileon Cobalamin (Vitamin B12) [Mass/Vol] 277 pg/mL Normal 180-914 [facility] Comment on above: Performed By: #### F E and TIBC, KATHY, [id number], CBC #### [facility] [address] Folate 7.9 ng/mL Normal >5.9 [facility] Comment on above: Result Comment: Katelyn te reference range: >5.9 ng/ml The WHO technical consultation on folate and vitamin b12 deficiencies has determined that folate concentrations less than 4 ng/ml are considered deficient. PERFORMED BY: [place] [address] PATHOLOGIST DEPARTMENT CLINICIAN JENY DODGE M.D. Performed By: #### F E and TIBC, KATHY, [id number], CBC #### [facility] [address] [place] [address] [place] COVID-19 FRMCon 05-07-2022 SARS-CoV-2 (COVID-19) RNA CHALINO+probe Ql (Unsp spec) Negative Normal Negative [facility] Comment on above: Order Comment: Healt hcare Worker?: N Result Comment: Testing for SARS-CoV-2 by RT-PCR This test was developed and its performance characteristics determined by [employer] and validated at the [facility]. This test has not been [...] is terminated or revoked sooner. PERFORMED BY: [place] [address] PATHOLOGIST DEPARTMENT CLINICIAN JENY DODGE M.D. Performed By: #### C OVID 19 [facility] [place] #### [address] COVID-19 Positive/NegativeOr dered By: Hood Patel on 05-07-2022 SARS-CoV-2 (COVID-19) N gene CHALINO+probe Ql (Resp) Negative Negative [facility] Comment on above: Testing for SARS-CoV -2 by RT-PCR This test was developed and its performance characteristics determined by [employer] and validated at the [facility]. This test has not been [...] Speci men Type: BLOOD SPECIMEN Ordering Facility: [facility] Address: [address] [place] [address] Performed By: #### 5 7021-8, 38347-8 #### [facility] CLIA [id number] [address] [place] [address] Basophils/100 WBC (Bld) 0.3 % Normal [facility] Comment on above: Order Comment: Speci nikky Type: BLOOD SPECIMEN Ordering Facility: [facility] Address: [address] [place] [address] Performed By: #### 5 7021-8, 78285-9 #### [facility] CLIA [id number] [address] [place] [address] Differential cell count method Nom (Bld) Auto Normal [facility] Comment on above: Order Comment: Speci men Type: BLOOD SPECIMEN Ordering Facility: [facility] Address: [address] [place] [address] Performed By: #### 5 7021-8, 03654-9 #### [facility] CLIA [id number] [address] [place] [address] Eosinophils (Bld) [#/Vol] 0.09 10*3/uL Normal <0.46 [facility] Comment on above: Order Comment: Speci men Type: BLOOD SPECIMEN Ordering Facility: [facility] Address: [address] Performed By: #### 5 7021-8, 04473-6 #### [facility] CLIA [id number] [address] [place] [address] Eosinophils/100 WBC (Bld) 1.0 % Normal [facility] Comment on above: Order Comment: Speci men Type: BLOOD SPECIMEN Ordering Facility: [facility] Address: [address] [place] [address] Performed By: #### 5 7021-8, 28747-3 #### [facility] CLIA [id number] [address] [place] [address] Erythrocyte distribution width (RBC) [Ratio] 20.4 % High 11.5-15.0 [facility] Comment on above: Order Comment: Speci men Type: BLOOD SPECIMEN Ordering Facility: [facility] Address: [address] [place] [address] Performed By: #### 5 7021-8, 04517-8 #### [facility] CLIA [id number] [address] [place] [address] Hematocrit (Bld) [Volume fraction] 33.1 % Low 36.0-46.0 [facility] Comment on above: Order Comment: Speci men Type: BLOOD SPECIMEN Ordering Facility: [facility] Address: [address] [place], [place] [address] Performed By: #### 5 7021-8, 01776-3 #### [facility] CLIA [id number] [address] [place] [address] Hemoglobin (Bld) [Mass/Vol] 9.3 g/dL Low 11.5-15.5 [facility] Comment on above: Order Comment: Speci men Type: BLOOD SPECIMEN Ordering Facility: [facility] Address: [address] [place] [address] Performed By: #### 5 7021-8, 41569-6 #### [facility] CLIA [id number] [address] [place] [address] IMMATURE GRAN % 0.9 % Normal [facility] Comment on above: Order Comment: Speci men Type: BLOOD SPECIMEN Ordering Facility: [facility] Address: [address] [place] [address] Performed By: #### 5 7021-8, 82796-1 #### [facility] CLIA [id number] [address] [place] [address] IMMATURE GRAN ABS 0.08 k/uL Normal <0.10 [facility] Comment on above: Order Comment: Speci men Type: BLOOD SPECIMEN Ordering Facility: [facility] Address: [address] [place] [address] Performed By: #### 5 7021-8, 63909-4 #### [facility] CLIA [id number] [address] [place] [address] Lymphocytes (Bld) [#/Vol] 2.43 10*3/uL Normal 1.00-4.00 [facility] Comment on above: Order Comment: Speci men Type: BLOOD SPECIMEN Ordering Facility: [facility] Address: [address] [place] [address] Performed By: #### 5 7021-8, 90326-9 #### [facility] CLIA [id number] [address] [place] [address] Lymphocytes/100 WBC (Bld) 26.6 % Normal [facility] Comment on above: Order Comment: Speci men Type: BLOOD SPECIMEN Ordering Facility: [facility] Address: [address] [place] [address] Performed By: #### 5 7021-8, 15328-2 #### [facility] CLIA [id number] [address] [place] [address] MCH (RBC) [Entitic mass] 20.2 pg Low 26.0-34.0 [facility] Comment on above: Order Comment: Speci men Type: BLOOD SPECIMEN Ordering Facility: [facility] Address: [address] [place], [place] [address] Performed By: #### 5 7021-8, 80956-8 #### [facility] CLIA [id number] [address] [place] [address] MCHC (RBC) [Mass/Vol] 28.1 g/dL Low 30.5-36.0 [facility] Comment on above: Order Comment: Speci men Type: BLOOD SPECIMEN Ordering Facility: [facility] Address: [address] [place] [address] Performed By: #### 5 7021-8, 55645-7 #### [facility] CLIA [id number] [address] [place] [address] MCV (RBC) [Entitic vol] 72.0 fL Low 80.0-100.0 [facility] Comment on above: Order Comment: Speci men Type: BLOOD SPECIMEN Ordering Facility: [facility] Address: [address] [place] [address] Performed By: #### 5 7021-8, 65995-7 #### [facility] CLIA [id number] [address] [place] [address] Monocytes (Bld) [#/Vol] 0.48 10*3/uL Normal <0.87 [facility] Comment on above: Order Comment: Speci men Type: BLOOD SPECIMEN Ordering Facility: [facility] Address: [address] [place], [place] [address] Performed By: #### 5 7021-8, 19374-5 #### [facility] CLIA [id number] [address] [place] [address] Monocytes/100 WBC (Bld) 5.3 % Normal [facility] Comment on above: Order Comment: Speci men Type: BLOOD SPECIMEN Ordering Facility: [facility] Address: [address] [place] [address] Performed By: #### 5 7021-8, 67456-0 #### [facility] CLIA [id number] [address] [place] [address] Neutrophils (Bld) [#/Vol] 6.02 10*3/uL Normal 1.45-7.50 [facility] Comment on above: Order Comment: Speci men Type: BLOOD SPECIMEN Ordering Facility: [facility] Address: [address] [place] [address] Performed By: #### 5 7021-8, 66549-7 #### [facility] CLIA [id number] [address] [place] [address] Neutrophils/100 WBC (Bld) 65.9 % Normal [facility] Comment on above: Order Comment: Speci men Type: BLOOD SPECIMEN Ordering Facility: [facility] Address: [address] [place] [address] Performed By: #### 5 7021-8, 37883-5 #### [facility] CLIA [id number] [address] [place] [address] Nucleated RBC (Bld) [#/Vol] 10*3/uL Normal <0.01 [facility] Comment on above: Order Comment: Speci men Type: BLOOD SPECIMEN Ordering Facility: [facility] Address: [address] [place] [address] Performed By: #### 5 7021-8, 34412-2 #### [facility] CLIA [id number] [address] [place] [address]53 Nucleated RBC/100 WBC (Bld) [Ratio] 0.0 /100 WBC Normal [facility] Comment on above: Order Comment: Speci men Type: BLOOD SPECIMEN Ordering Facility: [facility] Address: [address] [place] [address] Performed By: #### 5 7021-8, 05975-3 #### [facility] CLIA [id number] [address] [place] [address] Platelet mean volume (Bld) [Entitic vol] 7.7 fL Low 9.0-12.7 [facility] Comment on above: Order Comment: Speci men Type: BLOOD SPECIMEN Ordering Facility: [facility] Address: [address] [place] [address] Performed By: #### 5 7021-8, 68765-8 #### [facility] CLIA [id number] [address] [place] [address] Platelets (Bld) [#/Vol] 318 10*3/uL Normal 150-400 [facility] Comment on above: Order Comment: Speci men Type: BLOOD SPECIMEN Ordering Facility: [facility] Address: [address] [place] [address] Performed By: #### 5 7021-8, 19342-3 #### [facility] CLIA [id number] [address] [place] [address] RBC (Bld) [#/Vol] 4.60 10*6/uL Normal 3.90-5.20 [facility] Comment on above: Order Comment: Speci men Type: BLOOD SPECIMEN Ordering Facility: [facility] Address: [address] [place] [address] Performed By: #### 5 7021-8, 78039-0 #### [facility] CLIA [id number] [address] [place] [address] WBC (Bld) [#/Vol] 9.13 10*3/uL Normal 3.70-11.00 [facility] Comment on above: Order Comment: Speci men Type: BLOOD SPECIMEN Ordering Facility: [facility] Address: [address] [place] [address] Performed By: #### 5 7021-8, 94740-2 #### [facility] CLIA [id number] [address] [place] [address] CNOVSPon 04-14-2022 CNOVSP Visit (SP) Office ([facility]) ROBINA RON ([id number]) 1950 F Date Time Provider Department 04/14/22 1:15 PM CHRISTI FINK During your visit today, we recorded the following information about you: Temperature Pulse Respiration Blood pressure 97.9 degrees 80/minute 16/minute 149/60 Weight Height 53.6 kg 1.524 m Christi Fink MD 04/14/2022 1:13 PM Signed PATIENT NAME: Robina Ron CLINIC NO.: [id number] ATTENDING PHYSICIAN: Christi Fink MD DATE OF [...] content not included)... Normal [facility] Sandeep 04-14-2022 VADIMN Telephone ([place]) ROBINA RON ([id number]) 1950 F Date Time Provider Department 04/14/22 CHRISTY BYRD During your visit today, we recorded the following information about you: Christy Byrd RN 04/14/2022 1:25 PM Signed Key Monteiro from [facility] Client Services calls to report [...] is now seen by Dr Rainey at [facility]. Call placed to their office ([phone]) and message left requesting a call back. PSS: can you please update pt's PCP info. Thanks, JOS Bustamante Pss 04/14/2022 2:03 PM Signed PCP updated in chart Makenna Kendall RN 04/17/2022 10:39 AM Signed Call placed to [facility]. Office is closed. JOS Bustamante RN 04/21/2022 12:55 PM Signed Message left with Dr Rainey's medical chemist again today regarding this pt and the urgency of this being addressed. Will try again later today if I don't hear back from their office. JOS Bustamante RN 04/21/2022 1:35 PM Signed Spoke with Pankaj at Dr Rainey's office. Recent records and labs faxed to [phone] per office request. JOS Bustamante RN 04/21/2022 [...] 04-14-2022 Albumin [Mass/Vol] 3.5 g/dL Low 3.9-4.[address] [facility] Comment on above: Order Comment: Speci men Type: BLOOD SPECIMEN Ordering Facility: [facility] Address: [address] [address] Performed By: #### 2 4323-8 #### [facility] CLIA [id number] [address] [place] [address] ALP [Catalytic activity/Vol] 120 U/L Normal 34-123 [facility] Comment on above: Order Comment: Speci men Type: BLOOD SPECIMEN Ordering Facility: [facility] Address: [address] [address] Performed By: #### 2 4323-8 #### [facility] CLIA [id number] [address] [place] [address] ALT [Catalytic activity/Vol] 15 U/L Normal 7-38 [facility] Comment on above: Order Comment: Speci men Type: BLOOD SPECIMEN Ordering Facility: [facility] Address: [address] [place] [address] Performed By: #### 2 4323-8 #### [facility] CLIA [id number] [address] [place] [address] Anion gap [Moles/Vol] 13 mmol/L Normal 9-18 [facility] Comment on above: Order Comment: Speci men Type: BLOOD SPECIMEN Ordering Facility: [facility] Address: [address] [place] [address] Performed By: #### 2 4323-8 #### [facility] CLIA [id number] [address] [place] [address] AST [Catalytic activity/Vol] 21 U/L Normal 13-35 [facility] Comment on above: Order Comment: Speci men Type: BLOOD SPECIMEN Ordering Facility: [facility] Address: [facility] [address] Performed By: #### 2 4323-8 #### [facility] CLIA [id number] [address] [place] [address] Bilirubin [Mass/Vol] 0.2 mg/dL Normal 0.2-1.3 [facility] Comment on above: Order Comment: Speci men Type: BLOOD SPECIMEN Ordering Facility: [facility] Address: [address] [address] Performed By: #### 2 4323-8 #### [facility] CLIA [id number] [address] [place] [address] Calcium [Mass/Vol] 9.1 mg/dL Normal 8.5-10.[address] [facility] Comment on above: Order Comment: Speci men Type: BLOOD SPECIMEN Ordering Facility: [facility] Address: [address] [place] [address] Performed By: #### 2 4323-8 #### [facility] CLIA [id number] [address] [place] [address] Chloride [Moles/Vol] 103 mmol/L Normal 97-105 [facility] Comment on above: Order Comment: Speci men Type: BLOOD SPECIMEN Ordering Facility: [facility] Address: [address] [place] [address] Performed By: #### 2 4323-8 #### [facility] CLIA [id number] [address] [place] [address] CO2 [Moles/Vol] 22 mmol/L Normal 22-30 [facility] Comment on above: Order Comment: Speci men Type: BLOOD SPECIMEN Ordering Facility: [facility] Address: [address] [place], [place] [address] Performed By: #### 2 4323-8 #### [facility] CLIA [id number] [address] [place] [address] Creatinine [Mass/Vol] 0.53 mg/dL Low 0.58-0.96 [facility] Comment on above: Order Comment: Speci men Type: BLOOD SPECIMEN Ordering Facility: [facility] Address: [address] [place] [address] Performed By: #### 2 4323-8 #### [facility] CLIA [id number] [address] [place] [address] ESTIMATED GLOMERULAR FILTRATION RATE 99 mL/min/1.73m??? Normal >=60 [facility] Comment on above: Order Comment: Nel sher Type: BLOOD SPECIMEN Ordering Facility: [facility] Address: [address] [place] [address] Result Comment: Kaylynn mated Glomerular Filtration Rate [...] GFR. Performed By: #### 2 4323-8 #### [facility] CLIA [id number] [address] [place] [address] Glucose [Mass/Vol] 508 mg/dL High 74-[address] [facility] Comment on above: Order Comment: Nel sher Type: BLOOD SPECIMEN Ordering Facility: [facility] Address: [address] [place] [address] Result Comment: The [place] Diabetes Association (ADA) provides guidance for cutoff [...] Standards of Medical Care in Diabetes 2016, [place] Diabetes Association. Diabetes Care. 2016.39(Suppl 1). Performed By: #### 2 4323-8 #### [facility] CLIA [id number] [address] [place] [address] Potassium [Moles/Vol] 3.6 mmol/L Low 3.7-5.1 [facility] Comment on above: Order Comment: Speci men Type: BLOOD SPECIMEN Ordering Facility: [facility] Address: [address] [address] Performed By: #### 2 4323-8 #### [facility] CLIA [id number] [address] [place] [address] Protein [Mass/Vol] 5.4 g/dL Low 6.3-8.[address] [facility] Comment on above: Order Comment: Speci men Type: BLOOD SPECIMEN Ordering Facility: [facility] Address: [address] [place] [address] Performed By: #### 2 4323-8 #### [facility] CLIA [id number] [address] [place] [address] Sodium [Moles/Vol] 138 mmol/L Normal 136-[address] [facility] Comment on above: Order Comment: Speci men Type: BLOOD SPECIMEN Ordering Facility: [facility] Address: [address] [place] [address] Performed By: #### 2 4323-8 #### [facility] CLIA [id number] [address] [place] [address] Urea nitrogen [Mass/Vol] 8 mg/dL Normal 7-21 [facility] Comment on above: Order Comment: Speci men Type: BLOOD SPECIMEN Ordering Facility: [facility] Address: [address] [place] [address] Performed By: #### 2 4323-8 #### [facility] CLIA [id number] [address] [place] [address] Ferritin SerPl-mCncon 2021 Ferritin [Mass/Vol] 15.5 ng/mL Normal 14.7-205.1 [facility] Comment on above: Order Comment: Speci men Type: BLOOD SPECIMEN Ordering Facility: [facility] Address: [address] [place] [address] Performed By: #### 2 276-4, 47018-2 #### [facility] CLIA [id number] [address] [place] [address] [place] GLUCOSE, BLOOD (POC)on 04-14 Glucose [Mass/Vol] 373 mg/dL Abnormal 74 - 99 mg/dL [facility] Iron and Iron binding capaci ty panelon 04-14-2022 Iron [Mass/Vol] 17 ug/dL Low 41-186 [facility] Comment on above: Order Comment: Speci men Type: BLOOD SPECIMEN Ordering Facility: [facility] Address: [address] [place], [place] [address] Performed By: #### 2 276-4, 16588-8 #### [facility] CLIA [id number] [address] [place] [address] [facility] Iron binding capacity [Mass/Vol] 337 ug/dL Normal 232-386 [facility] Comment on above: Order Comment: Speci men Type: BLOOD SPECIMEN Ordering Facility: [facility] Address: [address] [place], [place] [address] Performed By: #### 2 276-4, 01896-5 #### [facility] CLIA [id number] [address] [place] [address] [place] Iron/TIBC [Molar ratio] 5.0 % Low 15.0-57.0 [facility] Comment on above: Order Comment: Speci men Type: BLOOD SPECIMEN Ordering Facility: [facility] Address: [address] [place], [place] [address] Performed By: #### 2 276-4, 79982-9 #### [facility] CLIA [id number] [address] [place] [address] [place] Retics #on 04-14-2022 Reticulocytes (Bld) [#/Vol] 0.02929 10*3/uL Normal 0.018-0.100 [facility] Comment on above: Order Comment: Speci men Type: BLOOD SPECIMEN Ordering Facility: [facility] Address: [address] [place], [place] [address] Performed By: #### 5 7021-8, 97804-3 #### [facility] CLIA [id number] [address] [place] [address] Reticulocytes (Bld) [#/Vol]o n 04-14-2022 Reticulocytes/100 RBC (Bld) 1.8 % Normal 0.4-2.0 [facility] Comment on above: Order Comment: Speci men Type: BLOOD SPECIMEN Ordering Facility: [facility] Address: [address] [place] [address] [address] [place] [id number] Performed By: #### 5 7021-8, 34261-4 #### [facility] CLIA [id number] [address] [place] [address] CBC AUTO DIFFon 04-08-2022 BASO # 0.0 103/ul Normal 0.0-0.1 [facility] Comment on above: Performed By: #### A 1C #### [facility] [address] [place] [address] Dr. Julisa Lowe Basophils/100 WBC (Bld) 0.4 % Normal 0.2-2.0 [facility] Comment on above: Performed By: #### A 1C #### [facility] [address] [place] [address] Dr. Julisa Lowe EO # 0.2 103/ul Normal 0.0-0.7 [facility] Comment on above: Performed By: #### A 1C #### [facility] [address] [place] [address] Dr. Julisa Lowe Eosinophils/100 WBC (Bld) 1.7 % Normal 0.9-7.0 [facility] Comment on above: Performed By: #### A 1C #### [facility] [address] [place] [address] Dr. Julisa Lowe Erythrocyte distribution width (RBC) [Ratio] 20.8 % Critically high 11.0-15.0 [facility] Comment on above: Performed By: #### A 1C #### [facility] [address] [place] [address] Dr. Julisa Lowe Hematocrit (Bld) [Volume fraction] 34.9 % Critically low 36.0-48.0 [facility] Comment on above: Performed By: #### A 1C #### [facility] [address] [place] [address] Dr. Julisa Lowe Hemoglobin (Bld) [Mass/Vol] 10.0 g/dL Critically low 12.0-16.0 [facility] Comment on above: Performed By: #### A 1C #### [facility] [address] [address] [address] Julisa Lowe IG # 0.08 10e3/ul Critically high 0.00-0.03 [facility] Comment on above: Performed By: #### A 1C #### [facility] [address] [place] [address] Dr. Julisa Lowe IG % 0.7 % Critically high 0.0-0.5 [facility] Comment on above: Performed By: #### A 1C #### [facility] [address] [address] [address] Julisa Lowe LYMPH # 3.6 103/ul Normal 1.2-3.8 [facility] Comment on above: Performed By: #### A 1C #### [facility] [address] [place] [address] Dr. Julisa Lowe Lymphocytes/100 WBC (Bld) 33.3 % Normal 20.5-60.0 [facility] Comment on above: Performed By: #### A 1C #### [facility] [address] [place] [address] Dr. Julisa Lowe MANUAL DIFF REQ NO Normal [facility] Comment on above: Performed By: #### A 1C #### [facility] [address] [address] [address] Julisa Lowe MCH (RBC) [Entitic mass] 20.2 pg Critically low 26.7-34.0 [facility] Comment on above: Performed By: #### A 1C #### [facility] [address] [place] [address] Dr. Julisa Lowe MCHC (RBC) [Mass/Vol] 28.7 g/dL Critically low 29.9-35.2 [facility] Comment on above: Performed By: #### A 1C #### [facility] [address] [place] [address] Dr. Julisa Lowe MCV (RBC) [Entitic vol] 70.6 fL Critically low 81.0-99.0 [facility] Comment on above: Performed By: #### A 1C #### [facility] [address] [place] [address] Dr. Julisa Lowe MONO # 0.6 103/ul Normal 0.3-0.8 [facility] Comment on above: Performed By: #### A 1C #### [facility] [address] [place] [address] Dr. Julisa Lowe Monocytes/100 WBC (Bld) 5.4 % Normal 1.7-12.0 [facility] Comment on above: Performed By: #### A 1C #### [facility] [address] [place] [address] Dr. Julisa Lowe NEUT # 6.4 103/ul Normal 1.4-6.5 [facility] Comment on above: Performed By: #### A 1C #### [facility] [address] [place] [address] Dr. Julisa Lowe Neutrophils/100 WBC (Bld) 58.5 % Normal 43.0-75.0 [facility] Comment on above: Performed By: #### A 1C #### [facility] [address] [place] [address] Dr. Julisa Lowe Platelet mean volume (Bld) [Entitic vol] 8.1 fL Critically low 9.5-13.5 [facility] Comment on above: Performed By: #### A 1C #### [facility] [address] [place] [address] Dr. Julisa Lowe PLT 325 103/ul Normal 150-450 [facility] Comment on above: Performed By: #### A 1C #### [facility] [address] [place] [address] Dr. Julisa Lowe RBC 4.94 106/ul Normal 4.20-5.40 [facility] Comment on above: Performed By: #### A 1C #### [facility] [address] [address] [address] Julisa Lowe WBC 10.9 103/ul Normal 4.0-11.0 [facility] Comment on above: Performed By: #### A 1C #### [facility] [id number] Julisa Lowe FERRITINon 04-08-2022 Ferritin [Mass/Vol] 15.0 ng/mL Normal 8.0-252.0 [facility] Comment on above: Performed By: #### A 1C #### [facility] [address] [address] [address] Julisa Lowe CNPNon 04-06-2022 CNPN Telephone (NCCAP) ARIADNEROBINA Ivette ([id number]) 1950 F Date Time Provider Department 04/06/22 [facility]STI FINK [facility] During your visit today, we recorded the following information about you: Makenna Hidalgo Sec 04/06/2022 7:49 AM Signed Please send records to [place] office thanks! MD Tj Thompson; Makenna Hidalgo Sec Please refer her to GI for an upper endoscopy. ?Thanks Adrienne Weinstein Pss 04/06/2022 8:12 AM Signed Gladys: Information ready for you. Adrienne Weinstein [facility] Shaye Gonzalez [place] 04/06/2022 8:57 AM Signed Records faxed to Dr. iRch. Adrienne Weinstein Pss 04/09/2022 8:40 AM Signed [...] Fully Assessed Reason for Visit: Appointment Confirmation [0527] Prescriptions as of 04/16/2022 - insulin NPH [...] Encounter Status:Closed by TJ HUNTER on 04/16/22 [facility] CNOVSPon 04-03-2022 CNOVSP Visit (SP) Office ([place]) ROBINA RON ([id number]) 1950 F Date Time Provider Department 04/03/22 4:30 PM CHRISTI FINK During your visit today, we recorded the following information about you: Temperature Pulse Respiration Blood pressure 97.4 degrees 90/minute 16/minute 107/38 Weight Height 53.6 kg 1.524 m Christi Fink MD 04/04/2022 11:07 AM Signed PATIENT NAME: Robina Ron CLINIC NO.: [id number] ATTENDING PHYSICIAN: Christi Fink MD DATE OF [...] not taking: Reported on 03/31/2022 ) - Ytybg-2-RMP-EPA-Fish Oil 1,000 mg (120 mg-180 mg) cap [...] Normal [facility] ECHO LIMITED STUDYon 022 ECHO LIMITED STUDY Patient: ROBINA RON Exam Date: 02/06/2022 : 1950 Gender:F Ordering : EDD WADE Admission #: [id number] Family : Order #: [id number] CLICK HERE TO VIEW EXAM ECHOCARDIOGRAM REPORT [...] Area(A4C): 21.60 cm2 Left Atrium Systolic Volume(A2C): 61133 mm3 Left Atrium Systolic Volume(A4C): 48763 mm3 Mitral Valve Right Ventricle Aorta AO Root Diam: 3.10 cm Aortic Valve Tricuspid Valve Pulmonic Valve Right Atrium Dictated by: Alfred Suggs M.D. on 02/06/2022 at 15:55 Approved by: Alfred Suggs M.D. on 02/06/2022 at 16:11 Normal [facility] CBC AUTO DIFFon 01-23-2022 BASO # 0.0 103/ul Normal 0.0-0.1 [facility] Comment on above: Performed By: #### A 1C #### [facility] [address] [address] [address] Julisa Lowe Basophils/100 WBC (Bld) 0.3 % Normal 0.2-2.0 [facility] Comment on above: Performed By: #### A 1C #### [facility] [address] [address] [address] Julisa Lowe EO # 0.1 103/ul Normal 0.0-0.7 [facility] Comment on above: Performed By: #### A 1C #### [facility] [address] [address] [address] Julisa Lowe Eosinophils/100 WBC (Bld) 1.0 % Normal 0.9-7.0 [facility] Comment on above: Performed By: #### A 1C #### [facility] [address] [address] [address] Julisa Lowe Erythrocyte distribution width (RBC) [Ratio] 18.6 % Critically high 11.0-15.0 [facility] Comment on above: Performed By: #### A 1C #### [facility] [address] [address] [address] Julisa Lowe Hematocrit (Bld) [Volume fraction] 29.6 % Critically low 36.0-48.0 [facility] Comment on above: Performed By: #### A 1C #### [facility] [address] [address] [address] Julisa Lowe Hemoglobin (Bld) [Mass/Vol] 8.5 g/dL Critically low 12.0-16.0 [facility] Comment on above: Performed By: #### A 1C #### [facility] [address] [address] [address] Julisa Lowe IG # 0.09 10e3/ul Critically high 0.00-0.03 [facility] Comment on above: Performed By: #### A 1C #### [facility] [address] [address] [address] Julisa Lowe IG % 0.7 % Critically high 0.0-0.[address] [facility] Comment on above: Performed By: #### A 1C #### [facility] [address] [place] [address] Dr. Julisa Lowe LYMPH # 3.2 103/ul Normal 1.2-3.8 [facility] Comment on above: Performed By: #### A 1C #### [facility] [address] [place] [address] Dr. Julisa Lowe Lymphocytes/100 WBC (Bld) 25.5 % Normal 20.5-60.0 [facility] Comment on above: Performed By: #### A 1C #### [facility] [address] [place] [address] Dr. Julisa Lowe MANUAL DIFF REQ NO Normal [facility] Comment on above: Performed By: #### A 1C #### [facility] [address] [place] [address] Dr. Julisa Lowe MCH (RBC) [Entitic mass] 20.2 pg Critically low 26.7-34.0 [facility] Comment on above: Performed By: #### A 1C #### [facility] [address] [place] [address] Dr. Julisa Lowe MCHC (RBC) [Mass/Vol] 28.7 g/dL Critically low 29.9-35.2 [facility] Comment on above: Performed By: #### A 1C #### [facility] [address] [place] [address] Dr. Julisa Lowe MCV (RBC) [Entitic vol] 70.5 fL Critically low 81.0-99.0 [facility] Comment on above: Performed By: #### A 1C #### [facility] [address] [place] [address] Dr. Julisa Lowe MONO # 0.6 103/ul Normal 0.3-0.8 [facility] Comment on above: Performed By: #### A 1C #### [facility] [address] [place] [address] Dr. Julisa Lowe Monocytes/100 WBC (Bld) 4.8 % Normal 1.7-12.0 [facility] Comment on above: Performed By: #### A 1C #### [facility] [address] [address] [address] Julisa Lowe NEUT # 8.4 103/ul Critically high 1.4-6.5 [facility] Comment on above: Performed By: #### A 1C #### [facility] [address] [address] [address] Julisa Lowe Neutrophils/100 WBC (Bld) 67.7 % Normal 43.0-75.0 [facility] Comment on above: Performed By: #### A 1C #### [facility] [address] [address] [address] Julisa Lowe Platelet mean volume (Bld) [Entitic vol] 7.9 fL Critically low 9.5-13.5 [facility] Comment on above: Performed By: #### A 1C #### [facility] [address] [address] [address] Julisa Lowe PLT 252 103/ul Normal 150-450 [facility] Comment on above: Performed By: #### A 1C #### [facility] [address] [address] [address] Julisa Lowe RBC 4.20 106/ul Normal 4.20-5.40 [facility] Comment on above: Performed By: #### A 1C #### [facility] [address] [address] [address] Julisa Lowe WBC 12.4 103/ul Critically high 4.0-11.0 [facility] Comment on above: Performed By: #### A 1C #### [facility] [address] [address] [address] Julisa Lowe FERRITINon 01-23-2022 Ferritin [Mass/Vol] 7.0 ng/mL Critically low 8.0-252.0 [facility] Comment on above: Performed By: #### P OCGLUC #### [facility] [address] [place] [address] Dr. Julisa Lowe GLYCOHEMOGLOBIN A1Con 2021 ADA RECOMMENDATION SEE BELOW Normal [facility] Comment on above: Result Comment: ADA RECOMMENDED LIMIT 4.0 - 6.0 ADA THERAPEUTIC TARGET < 7.0 ACTION SUGGESTED > 7.0 Performed By: #### A 1C #### [facility] [address] [place] [address] Dr. Julisa Lowe Glucose [Mass/Vol] 197 mg/dL Normal [facility] Comment on above: Performed By: #### A 1C #### [facility] [address] [place] [address] Dr. Julisa Lowe HbA1c (Bld) [Mass fraction] 8.5 % Critically high 4.5-6.2 [facility] Comment on above: Performed By: #### A 1C #### [facility] [address] [place] [address] Dr. Julisa Lowe TSHon 01-23-2022 TSH 0.501 uIU/mL Normal 0.358-3.740 [facility] Comment on above: Performed By: #### A 1C #### [facility] [address] [place] [address] Dr. Julisa Lowe TSH RANGE SEE BELOW Normal [facility] Comment on above: Result Comment: <0.3 4 UIU/ml HYPERTHYROID 0.34-5.60 UIU/ml EUTHYROID >5.60 UIU/ml HYPOTHYROID Performed By: #### A 1C #### [facility] [address] [place] [address] Dr. Julisa Lowe VIT B12 AND FOLATEon 022 Cobalamin (Vitamin B12) [Mass/Vol] 193.0 pg/mL Normal 193.0-986.0 [facility] Comment on above: Performed By: #### P OCGLUC #### [facility] [address] [place] [address] Dr. Julisa Lowe FOLATE 12.90 ng/mL Normal 8.60-58.90 [facility] Comment on above: Performed By: #### P OCGLUC #### [facility] [address] [place] [address] Dr. Julisa Lowe CULTURE URINEon 12-23-2021 CULTURE [...] Trimethoprim/Sulfamet hoxazole >=320 R F Normal [facility] [facility] Comment on above: Performed By: #### H STROPN #### [facility] [address] [place] [address] Dr. Julisa Lowe NM STRESS/REST MULTIon 12-22 NM STRESS/REST MULTI Patient: ROBINA RON Exam Date: 12/22/2021 : 1950 Gender:F Ordering : EDD WADE Admission #: [id number] Family : DR ESTUARDO SANCHEZ . Order #: [id number] CLICK HERE TO VIEW EXAM RADIOLOGY REPORT [...] M.D. on 12/22/2021 at 12:45 Normal [facility] CBC AUTO DIFFon 12-21-2021 BASO # 0.0 103/ul Normal 0.0-0.1 [facility] Comment on above: Performed By: #### A 1C #### [facility] [address] [address] [address] Julisa Lowe Basophils/100 WBC (Bld) 0.4 % Normal 0.2-2.0 [facility] Comment on above: Performed By: #### A 1C #### [facility] [address] [place] [address] Dr. Julisa Lowe EO # 0.1 103/ul Normal 0.0-0.7 [facility] Comment on above: Performed By: #### A 1C #### [facility] [address] [address] [address] Julisa Lowe Eosinophils/100 WBC (Bld) 1.3 % Normal 0.9-7.0 [facility] Comment on above: Performed By: #### A 1C #### [facility] [address] [place] [address] Dr. Julisa Lowe Erythrocyte distribution width (RBC) [Ratio] 19.7 % Critically high 11.0-15.0 [facility] Comment on above: Performed By: #### A 1C #### [facility] [address] [place] [address] Dr. Julisa Lowe Hematocrit (Bld) [Volume fraction] 31.6 % Critically low 36.0-48.0 [facility] Comment on above: Performed By: #### A 1C #### [facility] [address] [place] [address] Dr. Julisa Lowe Hemoglobin (Bld) [Mass/Vol] 9.2 g/dL Critically low 12.0-16.0 [facility] Comment on above: Performed By: #### A 1C #### [facility] [address] [address] [address] Julisa Lowe IG # 0.07 10e3/ul Critically high 0.00-0.03 [facility] Comment on above: Performed By: #### A 1C #### [facility] [address] [address] [address] Julisa Lowe IG % 0.7 % Critically high 0.0-0.[address] [facility] Comment on above: Performed By: #### A 1C #### [facility] [address] [address] [address] Julisa Lowe LYMPH # 3.2 103/ul Normal 1.2-3.8 [facility] Comment on above: Performed By: #### A 1C #### [facility] [address] [place] [address] Dr. Julisa Lowe Lymphocytes/100 WBC (Bld) 30.8 % Normal 20.5-60.0 [facility] Comment on above: Performed By: #### A 1C #### [facility] [address] [place] [address] Dr. Julisa Lowe MANUAL DIFF REQ NO Normal [facility] Comment on above: Performed By: #### A 1C #### [facility] [address] [place] [address] Dr. Julisa Lowe MCH (RBC) [Entitic mass] 20.4 pg Critically low 26.7-34.0 [facility] Comment on above: Performed By: #### A 1C #### [facility] [address] [address] [address] Julisa Lowe MCHC (RBC) [Mass/Vol] 29.1 g/dL Critically low 29.9-35.2 [facility] Comment on above: Performed By: #### A 1C #### [facility] [address] [place] [address] Dr. Julisa Lowe MCV (RBC) [Entitic vol] 69.9 fL Critically low 81.0-99.0 [facility] Comment on above: Performed By: #### A 1C #### [facility] [address] [place] [address] Dr. Julisa Lowe MONO # 0.8 103/ul Normal 0.3-0.8 [facility] Comment on above: Performed By: #### A 1C #### [facility] [address] [place] [address] Dr. Julisa Lowe Monocytes/100 WBC (Bld) 7.3 % Normal 1.7-12.0 [facility] Comment on above: Performed By: #### A 1C #### [facility] [address] [place] [address] Dr. Julisa Lowe NEUT # 6.2 103/ul Normal 1.4-6.5 [facility] Comment on above: Performed By: #### A 1C #### [facility] [address] [place] [address] Dr. Julisa Lowe Neutrophils/100 WBC (Bld) 59.5 % Normal 43.0-75.0 [facility] Comment on above: Performed By: #### A 1C #### [facility] [address] [place] [address] Dr. Julisa Lowe Platelet mean volume (Bld) [Entitic vol] 8.4 fL Critically low 9.5-13.5 [facility] Comment on above: Performed By: #### A 1C #### [facility] [address] [place] [address] Dr. Julisa Lowe PLT 301 103/ul Normal 150-450 [facility] Comment on above: Performed By: #### A 1C #### [facility] [address] [place] [address] Dr. Julisa Lowe RBC 4.52 106/ul Normal 4.20-5.40 [facility] Comment on above: Performed By: #### A 1C #### [facility] [address] [place] [address] Dr. Julisa Lowe WBC 10.4 103/ul Normal 4.0-11.0 [facility] Comment on above: Performed By: #### A 1C #### [facility] [address] [place] [address] Dr. Julisa Lowe POINT OF CARE GLUCOSEon 04- Glucose [Mass/Vol] 183 mg/dL Critically high 74-106 [facility] Comment on above: Performed By: #### P OCGLUC #### [facility] [address] [place] [address] Dr. Julisa Lowe Glucose [Mass/Vol] 351 mg/dL Critically high 74-106 [facility] Comment on above: Performed By: #### H STROPN #### [facility] [address] [place] [address] Dr. Julisa Lowe PROF CHEM 8 (BAS METB)on Anion gap [Moles/Vol] 14.6 mmol/L Normal [facility] Comment on above: Performed By: #### S EDR #### [facility] [address] [place] [address] Dr. Julisa Lowe Calcium [Mass/Vol] 8.6 mg/dL Normal 8.5-10.1 [facility] Comment on above: Performed By: #### S EDR #### [facility] [address] [place] [address] Dr. Julisa oLwe Chloride [Moles/Vol] 107 mmol/L Normal 98-107 [facility] Comment on above: Performed By: #### S EDR #### [facility] [address] [place] [address] Dr. Julisa Lowe CO2 [Moles/Vol] 24.6 mmol/L Normal 22.0-30.0 [facility] Comment on above: Performed By: #### S EDR #### [facility] [address] [place] [address] Dr. Julisa Lowe Creatinine [Mass/Vol] 0.57 mg/dL Normal 0.52-1.04 [facility] Comment on above: Performed By: #### S EDR #### [facility] [address] [place] [address] Dr. Julisa Lowe EGFR-AF PALESTINIAN >60 Normal >=60 [facility] Comment on above: Performed By: #### S EDR #### [facility] [address] [place] [address] Dr. Julisa Lowe EGFR-NON AF PALESTINIAN >60 Normal >=60 [facility] Comment on above: Performed By: #### S EDR #### [facility] [address] [address] [address] Julisa Lowe Glucose [Mass/Vol] 189 mg/dL Critically high 74-106 [facility] Comment on above: Performed By: #### S EDR #### [facility] [address] [address] [address] Julisa Lowe Potassium [Moles/Vol] 4.2 mmol/L Normal 3.4-5.0 [facility] Comment on above: Performed By: #### S EDR #### [facility] [address] [address] [address] Julisa Lowe Sodium [Moles/Vol] 142 mmol/L Normal 137-145 [facility] Comment on above: Performed By: #### S EDR #### [facility] [address] [address] [address] Julisa Lowe Urea nitrogen [Mass/Vol] 16.0 mg/dL Normal 7.0-18.0 [facility] Comment on above: Performed By: #### S EDR #### [facility] [address] [address] [address] Julisa Lowe Urea nitrogen/Creatinine [Mass ratio] 28.1 mg/mg Normal [facility] Comment on above: Performed By: #### S EDR #### [facility] [address] [address] [address] Julisa Lowe BNPon 12-20-2021 Natriuretic peptide B (Bld) [Mass/Vol] 880.0 pg/mL Normal <=900.0 [facility] Comment on above: Performed By: #### H STROPN #### [facility] [address] [place] [address] Dr. Julisa Lowe CARDIAC TRUONG ADMITon 022 CK <20 Critically low 30-135 [facility] Comment on above: Performed By: #### H STROPN #### [facility] [address] [place], [place] [id number] Dr. Julias Lowe CK.MB [Mass/Vol] ng/mL Normal <=2.37 [facility] Comment on above: Performed By: #### H STROPN #### [facility] [address] [place] [address] Dr. Julisa Lowe HSTROP 15.1 pg/mL Normal 4.0-35.5 [facility] Comment on above: Result Comment: CUT- OFF POINTS HAVE BEEN ESTABLISHED BASED ON THE FOURTH UNIVERSAL DEFINITIONS OF MYOCARDIAL INFARCTION. THE UPPER REFERENCE LIMIT (URL) OF TROPONIN, DEFINED THE 99TH PERCENTILE OF cTnI DISTRIBUTION IN A REFERENCE POPULATION, HAS BEEN CONFIRMED THE DECISION THRESHOLD FOR MA DIAGNOSIS. Performed By: #### H STROPN #### [facility] [address] [place] [address] Dr. Julisa Lowe RAJ 24.0 ng/mL Normal <=61.5 [facility] Comment on above: Performed By: #### H STROPN #### [facility] [address] [place] [address] Dr. Julisa Lowe CBC AUTO DIFFon 12-20-2021 BASO # 0.1 103/ul Normal 0.0-0.1 [facility] Comment on above: Performed By: #### S EDR #### [facility] [address] [place] [address] Dr. Julisa Lowe Basophils/100 WBC (Bld) 0.5 % Normal 0.2-2.0 [facility] Comment on above: Performed By: #### S EDR #### [facility] [address] [place] [address] Dr. Julisa Lowe EO # 0.1 103/ul Normal 0.0-0.7 [facility] Comment on above: Performed By: #### S EDR #### [facility] [address] [place] [address] Dr. Julisa Lowe Eosinophils/100 WBC (Bld) 1.0 % Normal 0.9-7.0 [facility] Comment on above: Performed By: #### S EDR #### [facility] [address] [place] [address] Dr. Julisa Lowe Erythrocyte distribution width (RBC) [Ratio] 19.8 % Critically high 11.0-15.0 [facility] Comment on above: Result Comment: slig ht poikilocytosis, moderate anisocytosis, Performed By: #### S EDR #### [facility] [address] [address] [address] Julisa Lowe Hematocrit (Bld) [Volume fraction] 32.7 % Critically low 36.0-48.0 [facility] Comment on above: Performed By: #### S EDR #### [facility] [address] [address] [address] Julisa Lowe Hemoglobin (Bld) [Mass/Vol] 9.6 g/dL Critically low 12.0-16.0 [facility] Comment on above: Performed By: #### S EDR #### [facility] [address] [place] [address] Dr. Julisa Lowe IG # 0.07 10e3/ul Critically high 0.00-0.03 [facility] Comment on above: Performed By: #### S EDR #### [facility] [address] [address] [address] Julisa Lowe IG % 0.7 % Critically high 0.0-0.5 [facility] Comment on above: Performed By: #### S EDR #### [facility] [address] [place] [address] Dr. Julisa Lowe LYMPH # 3.1 103/ul Normal 1.2-3.8 [facility] Comment on above: Performed By: #### S EDR #### [facility] [address] [place] [address] Dr. Julisa Lowe Lymphocytes/100 WBC (Bld) 29.7 % Normal 20.5-60.0 [facility] Comment on above: Performed By: #### S EDR #### [facility] [address] [place] [address] Dr. Julisa Lowe MANUAL DIFF REQ NO Normal [facility] Comment on above: Performed By: #### S EDR #### [facility] [address] [place] [address] Dr. Julisa Lowe MCH (RBC) [Entitic mass] 20.5 pg Critically low 26.7-34.0 [facility] Comment on above: Performed By: #### S EDR #### [facility] [address] [place] [address] Dr. Julisa Lowe MCHC (RBC) [Mass/Vol] 29.4 g/dL Critically low 29.9-35.2 [facility] Comment on above: Performed By: #### S EDR #### [facility] [address] [place] [address] Dr. Julisa Lowe MCV (RBC) [Entitic vol] 69.9 fL Critically low 81.0-99.0 [facility] Comment on above: Result Comment: few ovalocytes, moderate hypochromasia Performed By: #### S EDR #### [facility] [address] [place] [address] Dr. Julisa Lowe MONO # 0.6 103/ul Normal 0.3-0.8 [facility] Comment on above: Performed By: #### S EDR #### [facility] [address] [place] [address] Dr. Julisa Lowe Monocytes/100 WBC (Bld) 5.6 % Normal 1.7-12.0 [facility] Comment on above: Performed By: #### S EDR #### [facility] [address] [place] [address] Dr. Julisa Lowe NEUT # 6.5 103/ul Normal 1.4-6.5 [facility] Comment on above: Performed By: #### S EDR #### [facility] [address] [place] [address] Dr. Julisa Lowe Neutrophils/100 WBC (Bld) 62.5 % Normal 43.0-75.0 [facility] Comment on above: Performed By: #### S EDR #### [facility] [address] [place] [address] Dr. Julisa Lowe Platelet mean volume (Bld) [Entitic vol] 8.8 fL Critically low 9.5-13.5 [facility] Comment on above: Performed By: #### S EDR #### [facility] [address] [place] [address] Dr. Julisa Lowe PLT 280 103/ul Normal 150-450 [facility] Comment on above: Performed By: #### S EDR #### [facility] [address] [place] [address] Dr. Julisa Lowe RBC 4.68 106/ul Normal 4.20-5.40 [facility] Comment on above: Performed By: #### S EDR #### [facility] [address] [place] [address] Dr. Julisa Lowe WBC 10.5 103/ul Normal 4.0-11.0 [facility] Comment on above: Performed By: #### S EDR #### [facility] [address] [place] [address] Dr. Julisa Lowe Covid-19 PCR ([facility])on SARS-CoV-2 (COVID-19) RNA CHALINO+probe Ql (Unsp spec) Not detected Normal NOT DETECTED [facility] Comment on above: Result Comment: [...] for this test is supported by the [employer] of Health and Human Service's declaration that [...] used). Performed By: #### P OCGLUC #### [facility] [address] [place] [address] Dr. Julisa Lowe ER URINE PROFILEon 2 Bilirubin Ql (U) Negative Normal NEGATIVE [facility] Comment on above: Performed By: #### S EDR #### [facility] [address] [place] [address] Dr. Julisa Lowe Clarity (U) SL CLOUDY Abnormal CLEAR [facility] Comment on above: Performed By: #### S EDR #### [facility] [address] [place] [address] Dr. Julisa Lowe Color (U) LT. YELLOW Normal YELLOW [facility] Comment on above: Performed By: #### S EDR #### [facility] [address] [address] [address] Julisa DAY A micrscopic examination will be performed if indicated. Normal [facility] Comment on above: Performed By: #### S EDR #### [facility] [address] [place] [address] Dr. Julisa Lowe Glucose Ql (U) Negative Normal NEGATIVE [facility] Comment on above: Performed By: #### S EDR #### [facility] [address] [place] [address] Dr. Julisa Lowe Hemoglobin Ql (U) Negative Normal NEGATIVE [facility] Comment on above: Performed By: #### S EDR #### [facility] [address] [place] [address] Dr. Julisa Lowe Ketones Ql (U) Negative Normal NEGATIVE [facility] Comment on above: Performed By: #### S EDR #### [facility] [address] [place] [address] Dr. Julisa Lowe LEUKOCYTES TRACE Abnormal NEGATIVE [facility] Comment on above: Performed By: #### S EDR #### [facility] [address] [place] [address] Dr. Julisa Lowe Nitrite Ql (U) Negative Normal NEGATIVE [facility] Comment on above: Performed By: #### S EDR #### [facility] [address] [place] [address] Dr. Julisa Lowe pH (U) 7.5 [pH] Normal 5-9 [facility] Comment on above: Performed By: #### S EDR #### [facility] [address] [address] [address] Julisa Lowe Protein (U) [Mass/Vol] 100 mg/dL Abnormal NEGAT CRISTOPHER/ TRACE [facility] Comment on above: Performed By: #### S EDR #### [facility] [address] [address] [address] Julisa Lowe SPEC GRAVITY 1.020 Normal 1.005-<=1.025 [facility] Comment on above: Performed By: #### S EDR #### [facility] [address] [address] [address] uJlisa Lowe UR MICRO IND INDICATED Normal [facility] Comment on above: Performed By: #### S EDR #### [facility] [address] [place] [address] Dr. Julisa Lowe Urobilinogen Qn (U) 0.2 {Shirley'U}/dL Normal 0.2 - 1. 0 [facility] Comment on above: Performed By: #### S EDR #### [facility] [address] [place] [address] Dr. Julisa Lowe POINT OF CARE GLUCOSEon Glucose [Mass/Vol] 145 mg/dL Critically high 74-106 T [facility] Comment on above: Performed By: #### S EDR #### [facility] [address] [place] [address] Dr. Julisa Lowe PROF 14(COMP METB)on 022 Albumin [Mass/Vol] 3.0 g/dL Critically low 3.4-5.0 [facility] Comment on above: Performed By: #### H STROPN #### [facility] [address] [place] [address] Dr. Julisa Lowe Albumin/Globulin [Mass ratio] 1.0 {ratio} Normal [facility] Comment on above: Performed By: #### H STROPN #### [facility] [address] [place] [address] Dr. Julisa Lowe ALP [Catalytic activity/Vol] 110 U/L Normal 46-116 [facility] Comment on above: Performed By: #### H STROPN #### [facility] [address] [address] [address] Julisa Lowe ALT [Catalytic activity/Vol] 18 U/L Normal 14-59 [facility] Comment on above: Performed By: #### H STROPN #### [facility] [address] [address] [address] Julisa Lowe Anion gap [Moles/Vol] 13.4 mmol/L Normal [facility] Comment on above: Performed By: #### H STROPN #### [facility] [address] [address] [address] Julisa Lowe AST [Catalytic activity/Vol] 8 U/L Critically low 15-37 [facility] Comment on above: Performed By: #### H STROPN #### [facility] [address] [address] [address] Julisa Lowe Bilirubin [Mass/Vol] 0.3 mg/dL Normal 0.2-1.3 [facility] Comment on above: Performed By: #### H STROPN #### [facility] [address] [place] [address] Dr. Julisa Lowe Calcium [Mass/Vol] 8.5 mg/dL Normal 8.5-10.1 [facility] Comment on above: Performed By: #### H STROPN #### [facility] [address] [address] [address] Julisa Lowe Chloride [Moles/Vol] 106 mmol/L Normal 98-107 [facility] Comment on above: Performed By: #### H STROPN #### [facility] [address] [address] [address] Julisa Lowe CO2 [Moles/Vol] 26.3 mmol/L Normal 22.0-30.0 [facility] Comment on above: Performed By: #### H STROPN #### [facility] [address] [address] [address] Julisa Lowe Creatinine [Mass/Vol] 0.52 mg/dL Normal 0.52-1.04 [facility] Comment on above: Performed By: #### H STROPN #### [facility] [address] [address] [address] Julisa Lowe EGFR-AF PALESTINIAN >60 Normal >=60 [facility] Comment on above: Performed By: #### H STROPN #### [facility] [address] [address] [address] Julisa Lowe EGFR-NON AF PALESTINIAN >60 Normal >=60 [facility] Comment on above: Performed By: #### H STROPN #### [facility] [address] [address] [address] Julisa Lowe Globulin (S) [Mass/Vol] 3.0 g/dL Normal [facility] Comment on above: Performed By: #### H STROPN #### [facility] [address] [address] [address] Julisa Lowe Glucose [Mass/Vol] 147 mg/dL Critically high 74-106 [facility] Comment on above: Performed By: #### H STROPN #### [facility] [address] [address] [address] Julisa Lowe Potassium [Moles/Vol] 3.7 mmol/L Normal 3.4-5.0 [facility] Comment on above: Performed By: #### H STROPN #### [facility] [address] [address] [address] Julisa Lowe Protein [Mass/Vol] 6.0 g/dL Critically low 6.1-8.2 [facility] Comment on above: Performed By: #### H STROPN #### [facility] [address] [address] [address] Julisa Lowe Sodium [Moles/Vol] 142 mmol/L Normal 137-145 [facility] Comment on above: Performed By: #### H STROPN #### [facility] [address] [address] [address] Julisa Lowe Urea nitrogen [Mass/Vol] 13.0 mg/dL Normal 7.0-18.0 [facility] Comment on above: Performed By: #### H STROPN #### [facility] [address] [place] [address] Dr. Julisa Lowe Urea nitrogen/Creatinine [Mass ratio] 25.0 mg/mg Normal [facility] Comment on above: Performed By: #### H STROPN #### [facility] [address] [place] [address] Dr. Julisa Lowe PROTIMEon 12-20-2021 INR Coag (PPP) [Relative time] 0.94 {INR} Normal [facility] Comment on above: Performed By: #### S EDR #### [facility] [address] [place] [address] Dr. Julisa Lowe INR GUIDELINES SEE BELOW Normal [facility] Comment on above: Result Comment: NHI RED INR: 2.0 - 3.0 CONDITIONS NOT LISTED BELOW 2.5 - 3.5 FOR PROSTHETIC HEART VALVE REPLACEMENT 2.5 - 3.5 RECURRENT THROMBOSIS Performed By: #### S EDR #### [facility] [address] [place] [address] Dr. Julisa Lowe PT Coag (PPP) [Time] 10.2 s Normal 9.0-11.6 [facility] Comment on above: Performed By: #### S EDR #### [facility] [address] [place] [address] Dr. Julisa Lowe PTTon 12-20-2021 aPTT Coag (Bld) [Time] 21.7 s Critically low 22.3-36.2 [facility] Comment on above: Performed By: #### S EDR #### [facility] [address] [place] [address] Dr. Julisa Lowe TROPONIN, HIGH SENSITIVITYon 12-20-2021 HSTROP 16.3 pg/mL Normal 4.0-35.5 [facility] Comment on above: Result Comment: CUT- OFF POINTS HAVE BEEN ESTABLISHED BASED ON THE FOURTH UNIVERSAL DEFINITIONS OF MYOCARDIAL INFARCTION. THE UPPER REFERENCE LIMIT (URL) OF TROPONIN, DEFINED THE 99TH PERCENTILE OF cTnI DISTRIBUTION IN A REFERENCE POPULATION, HAS BEEN CONFIRMED THE DECISION THRESHOLD FOR MA DIAGNOSIS. Performed By: #### P OCGLUC #### [facility] [address] [place] [address] Dr. Julisa Lowe HSTROP 16.8 pg/mL Normal 4.0-35.5 [facility] Comment on above: Result Comment: CUT- OFF POINTS HAVE BEEN ESTABLISHED BASED ON THE FOURTH UNIVERSAL DEFINITIONS OF MYOCARDIAL INFARCTION. THE UPPER REFERENCE LIMIT (URL) OF TROPONIN, DEFINED THE 99TH PERCENTILE OF cTnI DISTRIBUTION IN A REFERENCE POPULATION, HAS BEEN CONFIRMED THE DECISION THRESHOLD FOR MA DIAGNOSIS. Performed By: #### H STROPN #### [facility] [address] [place] [address] Dr. Julisa Lowe URINE MICROSCOPIC ONLYon BACTERIA LARGE Abnormal NONE SEEN [facility] Comment on above: Performed By: #### S EDR #### [facility] [address] [place] [address] Dr. Julisa Lowe Bacteria identified Cx Nom (U) INDICATED Normal [facility] Comment on above: Performed By: #### S EDR #### [facility] [address] [place] [address] Dr. Julisa Lowe CAST NONE SEEN Normal NONE SEEN [facility] Comment on above: Performed By: #### S EDR #### [facility] [address] [place] [address] Dr. Julisa Lowe Crystals LM Nom (Urine sed) NONE SEEN Normal NONE SEEN [facility] Comment on above: Performed By: #### S EDR #### [facility] [address] [place] [address] Dr. Julisa Lowe Epithelial cells LM Ql (Urine sed) FEW Abnormal NONE SEEN /RARE [facility] Comment on above: Performed By: #### S EDR #### [facility] [address] [place] [address] Dr. Julisa Lowe MUCOUS NONE SEEN Normal NONE SEEN [facility] Comment on above: Performed By: #### S EDR #### [facility] [address] [place] [address] Dr. Julisa Lowe RBC 0-2 Normal 0-2 [facility] Comment on above: Performed By: #### S EDR #### [facility] [address] [place] [address] Dr. Julisa Lowe WBC 10-20 Abnormal NONE SEEN [facility] Comment on above: Performed By: #### S EDR #### [facility] [address] [place] [address] Dr. Julisa Lowe XR CHEST 1 Von [...] NGOZI NELSON Date: 2021-12-20 15:58 Normal [facility] JOSEE by IFAon 12-18-2021 Antinuclear Antibodies, IFA Negative Normal [facility] Comment on above: Result Comment: Nega tive <1:80 Borderline 1:80 Positive >1:80 ICAP nomenclature: AC-0 For more information about Hep-2 cell patterns use ANApatterns.org, the official website for the International Consensus on Antinuclear Antibody (JOSEE) Patterns (ICAP). Performed By: #### H STROPN #### [facility] [address] [place] [address] Dr. Julisa Lowe CBC AUTO DIFFon 12-15-2021 BASO # 0.0 103/ul Normal 0.0-0.1 [facility] Comment on above: Performed By: #### A 1C #### [facility] [address] [place] [address] Dr. Julisa Lowe Basophils/100 WBC (Bld) 0.3 % Normal 0.2-2.0 [facility] Comment on above: Performed By: #### A 1C #### [facility] [address] [place] [address] Dr. Julisa Lowe EO # 0.1 103/ul Normal 0.0-0.7 [facility] Comment on above: Performed By: #### A 1C #### [facility] [address] [address] [address] Julisa Lowe Eosinophils/100 WBC (Bld) 0.9 % Normal 0.9-7.0 [facility] Comment on above: Performed By: #### A 1C #### [facility] [address] [place] [address] Dr. Julisa Lowe Erythrocyte distribution width (RBC) [Ratio] 19.6 % Critically high 11.0-15.0 [facility] Comment on above: Performed By: #### A 1C #### [facility] [address] [place] [address] Dr. Julisa Lowe Hematocrit (Bld) [Volume fraction] 33.8 % Critically low 36.0-48.0 [facility] Comment on above: Performed By: #### A 1C #### [facility] [address] [place] [address] Dr. Julisa Lowe Hemoglobin (Bld) [Mass/Vol] 9.7 g/dL Critically low 12.0-16.0 [facility] Comment on above: Performed By: #### A 1C #### [facility] [address] [place] [address] Dr. Julisa Lowe IG # 0.13 10e3/ul Critically high 0.00-0.03 [facility] Comment on above: Performed By: #### A 1C #### [facility] [address] [place] [address] Dr. Julisa Lowe IG % 0.9 % Critically high 0.0-0.[address] [facility] Comment on above: Performed By: #### A 1C #### [facility] [address] [place] [address] Dr. Julisa Lowe LYMPH # 3.5 103/ul Normal 1.2-3.8 [facility] Comment on above: Performed By: #### A 1C #### [facility] [address] [place] [address] Dr. Julisa Lowe Lymphocytes/100 WBC (Bld) 25.4 % Normal 20.5-60.0 [facility] Comment on above: Performed By: #### A 1C #### [facility] [address] [place] [address] Dr. Julisa Lowe MANUAL DIFF REQ NO Normal [facility] Comment on above: Performed By: #### A 1C #### [facility] [address] [place] [address] Dr. Julisa Lowe MCH (RBC) [Entitic mass] 20.4 pg Critically low 26.7-34.0 [facility] Comment on above: Performed By: #### A 1C #### [facility] [address] [place] [address] Dr. Julisa Lowe MCHC (RBC) [Mass/Vol] 28.7 g/dL Critically low 29.9-35.2 [facility] Comment on above: Performed By: #### A 1C #### [facility] [address] [place] [address] Dr. Julisa Lowe MCV (RBC) [Entitic vol] 71.2 fL Critically low 81.0-99.0 [facility] Comment on above: Performed By: #### A 1C #### [facility] [address] [place] [address] Dr. Julisa Lowe MONO # 0.7 103/ul Normal 0.3-0.8 [facility] Comment on above: Performed By: #### A 1C #### [facility] [address] [place] [address] Dr. Julisa Lowe Monocytes/100 WBC (Bld) 5.0 % Normal 1.7-12.0 [facility] Comment on above: Performed By: #### A 1C #### [facility] [address] [place] [address] Dr. Julisa Lowe NEUT # 9.3 103/ul Critically high 1.4-6.[address] [facility] Comment on above: Performed By: #### A 1C #### [facility] [address] [place] [address] Dr. Julisa Lowe Neutrophils/100 WBC (Bld) 67.5 % Normal 43.0-75.0 [facility] Comment on above: Performed By: #### A 1C #### [facility] [address] [place] [address] Dr. Julisa Lowe Platelet mean volume (Bld) [Entitic vol] 8.2 fL Critically low 9.5-13.5 [facility] Comment on above: Performed By: #### A 1C #### [facility] [address] [place] [address] Dr. Julisa Lowe PLT 301 103/ul Normal 150-450 [facility] Comment on above: Performed By: #### A 1C #### [facility] [address] [place] [address] Dr. Julisa Lowe RBC 4.75 106/ul Normal 4.20-5.40 [facility] Comment on above: Result Comment: HYPO CHROMIA 3+ Performed By: #### A 1C #### [facility] [address] [place] [address] Dr. Julisa Lowe WBC 13.8 103/ul Critically high 4.0-11.0 [facility] Comment on above: Performed By: #### A 1C #### [facility] [address] [place] [address] Dr. Julisa Lowe CRPon 12-15-2021 CRP [Mass/Vol] mg/L Normal <=1.0 [facility] Comment on above: Performed By: #### C MP, CRP, TSH #### [facility] [address] [place] [address] Dr. Julisa Lowe FREE T4on 12-15-2021 Free T4 [Mass/Vol] 1.04 ng/dL Normal 0.78-2.19 [facility] Comment on above: Performed By: #### S EDR #### [facility] [address] [place] [address] Dr. Julisa Lowe PROF 14(COMP METB)on 022 Albumin [Mass/Vol] 3.4 g/dL Normal 3.4-5.0 [facility] Comment on above: Performed By: #### C MP, CRP, TSH #### [facility] [address] [place] [address] Dr. Julisa Lowe Albumin/Globulin [Mass ratio] 1.1 {ratio} Normal [facility] Comment on above: Performed By: #### C MP, CRP, TSH #### [facility] [address] [address] [address] Julisa Lowe ALP [Catalytic activity/Vol] 120 U/L Critically high 46-116 [facility] Comment on above: Performed By: #### C MP, CRP, TSH #### [facility] [address] [address] [address] Julisa Lowe ALT [Catalytic activity/Vol] 28 U/L Normal 14-59 [facility] Comment on above: Performed By: #### C MP, CRP, TSH #### [facility] [address] [address] [address] Julisa Lowe Anion gap [Moles/Vol] 12.7 mmol/L Normal [facility] Comment on above: Performed By: #### C MP, CRP, TSH #### [facility] [address] [address] [address] Julisa Lowe AST [Catalytic activity/Vol] 13 U/L Critically low 15-37 [facility] Comment on above: Performed By: #### C MP, CRP, TSH #### [facility] [address] [address] [address] Julisa Lowe Bilirubin [Mass/Vol] 0.3 mg/dL Normal 0.2-1.3 [facility] Comment on above: Performed By: #### C MP, CRP, TSH #### [facility] [address] [address] [address] Julisa Lowe Calcium [Mass/Vol] 8.4 mg/dL Critically low 8.5-10.1 [facility] Comment on above: Performed By: #### C MP, CRP, TSH #### [facility] [address] [address] [address] Julisa Lowe Chloride [Moles/Vol] 106 mmol/L Normal 98-107 [facility] Comment on above: Performed By: #### C MP, CRP, TSH #### [facility] [address] [address] [address] Julisa Lowe CO2 [Moles/Vol] 25.8 mmol/L Normal 22.0-30.0 [facility] Comment on above: Performed By: #### C MP, CRP, TSH #### [facility] [address] [address] [address] Julisa Lowe Creatinine [Mass/Vol] 0.68 mg/dL Normal 0.52-1.04 [facility] Comment on above: Performed By: #### C MP, CRP, TSH #### [facility] [address] [address] [address] Julisa Lowe EGFR-AF PALESTINIAN >60 Normal >=60 [facility] Comment on above: Performed By: #### C MP, CRP, TSH #### [facility] [address] [address] [address] Julisa Lowe EGFR-NON AF PALESTINIAN >60 Normal >=60 [facility] Comment on above: Performed By: #### C MP, CRP, TSH #### [facility] [address] [address] [address] Julisa Lowe Globulin (S) [Mass/Vol] 3.2 g/dL Normal [facility] Comment on above: Performed By: #### C MP, CRP, TSH #### [facility] [address] [address] [address] Julisa Lowe Glucose [Mass/Vol] 222 mg/dL Critically high 74-106 T [facility] Comment on above: Performed By: #### C MP, CRP, TSH #### [facility] [address] [address] [address] Julisa Lowe Potassium [Moles/Vol] 3.5 mmol/L Normal 3.4-5.0 [facility] Comment on above: Performed By: #### C MP, CRP, TSH #### [facility] [address] [address] [address] Julisa Lowe Protein [Mass/Vol] 6.6 g/dL Normal 6.1-8.2 [facility] Comment on above: Performed By: #### C MP, CRP, TSH #### [facility] [address] [address] [address] Julisa Lowe Sodium [Moles/Vol] 141 mmol/L Normal 137-145 [facility] Comment on above: Performed By: #### C MP, CRP, TSH #### [facility] [address] [place] [address] Dr. Julisa Lowe Urea nitrogen [Mass/Vol] 14.0 mg/dL Normal 7.0-18.0 [facility] Comment on above: Performed By: #### C MP, CRP, TSH #### [facility] [address] [place] [address] Dr. Julisa Lowe Urea nitrogen/Creatinine [Mass ratio] 20.6 mg/mg Normal [facility] Comment on above: Performed By: #### C MP, CRP, TSH #### [facility] [address] [place] [address] Dr. Julisa [facility] 10 mm/hr Normal <=30 [facility] Comment on above: Performed By: #### S EDR #### [facility] [address] [place] [address] Dr. Julisa Lowe TSHon 12-15-2021 TSH 0.747 uIU/mL Normal 0.470-4.680 [facility] Comment on above: Performed By: #### C MP, CRP, TSH #### [facility] [address] [place] [address] Dr. Julisa Lowe TSH RANGE SEE BELOW Normal [facility] Comment on above: Result Comment: <0.3 4 UIU/ml HYPERTHYROID 0.34-5.60 UIU/ml EUTHYROID >5.60 UIU/ml HYPOTHYROID Performed By: #### C MP, CRP, TSH #### [facility] [address] [place] [address] Dr. Julisa Lowe ECHOCARDIO M/2D COMPLETEon 0 12-04-2021 ECHOCARDIO M/2D COMPLETE Patient: ROBINA RON Exam Date: 12/04/2021 : 1950 Gender:F Ordering : SHAIKH Chaparrita SPARKS . Admission #: [id number] Family : Order #: [id number] CLICK HERE TO VIEW EXAM ECHOCARDIOGRAM REPORT [...] Area(A4C): 21.50 cm2 Left Atrium Systolic Volume(A2C): 21949 mm3 Left Atrium Systolic Volume(A4C): 77393 mm3 Mitral Valve MV E to A [...] M.D. on 12/04/2021 at 18:31 Normal [facility] CBC AUTO DIFFon 09-10-2021 BASO # 0.1 103/ul Normal 0.0-0.1 [facility] Comment on above: Performed By: #### S EDR #### [facility] [address] [place] [address] Dr. Julisa Lowe Basophils/100 WBC (Bld) 0.4 % Normal 0.2-2.0 [facility] Comment on above: Performed By: #### S EDR #### [facility] [address] [place] [address] Dr. Julisa Lowe EO # 0.2 103/ul Normal 0.0-0.7 [facility] Comment on above: Performed By: #### S EDR #### [facility] [address] [place] [address] Dr. Julisa Lowe Eosinophils/100 WBC (Bld) 1.2 % Normal 0.9-7.0 [facility] Comment on above: Performed By: #### S EDR #### [facility] [address] [place] [address] Dr. Julisa Lowe Erythrocyte distribution width (RBC) [Ratio] 17.8 % Critically high 11.0-15.0 [facility] Comment on above: Performed By: #### S EDR #### [facility] [address] [place] [address] Dr. Julisa Lowe Hematocrit (Bld) [Volume fraction] 36.6 % Normal 36.0-48.0 [facility] Comment on above: Performed By: #### S EDR #### [facility] [address] [place] [address] Dr. Julisa Lowe Hemoglobin (Bld) [Mass/Vol] 10.1 g/dL Critically low 12.0-16.0 [facility] Comment on above: Performed By: #### S EDR #### [facility] [address] [place] [address] Dr. Julisa Lowe IG # 0.08 10e3/ul Critically high 0.00-0.03 [facility] Comment on above: Performed By: #### S EDR #### [facility] [address] [place] [address] Dr. Julisa Lowe IG % 0.6 % Critically high 0.0-0.5 [facility] Comment on above: Performed By: #### S EDR #### [facility] [address] [place] [address] Dr. Julisa Lowe LYMPH # 3.1 103/ul Normal 1.2-3.8 [facility] Comment on above: Performed By: #### S EDR #### [facility] [address] [place] [address] Dr. Julisa Lowe Lymphocytes/100 WBC (Bld) 23.2 % Normal 20.5-60.0 [facility] Comment on above: Performed By: #### S EDR #### [facility] [address] [place] [address] Dr. Julisa Lowe MANUAL DIFF REQ NO Normal [facility] Comment on above: Performed By: #### S EDR #### [facility] [address] [address] [address] Julisa Lowe MCH (RBC) [Entitic mass] 20.9 pg Critically low 26.7-34.0 [facility] Comment on above: Performed By: #### S EDR #### [facility] [address] [place] [address] Dr. Julisa Lowe MCHC (RBC) [Mass/Vol] 27.6 g/dL Critically low 29.9-35.2 [facility] Comment on above: Performed By: #### S EDR #### [facility] [address] [place] [address] Dr. Julisa Lowe MCV (RBC) [Entitic vol] 75.8 fL Critically low 81.0-99.0 [facility] Comment on above: Performed By: #### S EDR #### [facility] [address] [place] [address] Dr. Julisa Lowe MONO # 0.7 103/ul Normal 0.3-0.8 [facility] Comment on above: Performed By: #### S EDR #### [facility] [address] [place] [address] Dr. Julisa Lowe Monocytes/100 WBC (Bld) 5.1 % Normal 1.7-12.0 [facility] Comment on above: Performed By: #### S EDR #### [facility] [address] [place] [address] Dr. Julisa Lowe NEUT # 9.3 103/ul Critically high 1.4-6.[address] [facility] Comment on above: Performed By: #### S EDR #### [facility] [address] [place] [address] Dr. Julisa Lowe Neutrophils/100 WBC (Bld) 69.5 % Normal 43.0-75.0 [facility] Comment on above: Performed By: #### S EDR #### [facility] [address] [place] [address] Dr. Julisa Lowe Platelet mean volume (Bld) [Entitic vol] 8.2 fL Critically low 9.5-13.5 [facility] Comment on above: Performed By: #### S EDR #### [facility] [address] [address] [address] Julisa Lowe PLT 303 103/ul Normal 150-450 [facility] Comment on above: Performed By: #### S EDR #### [facility] [address] [address] [address] Julisa Lowe RBC 4.83 106/ul Normal 4.20-5.40 [facility] Comment on above: Performed By: #### S EDR #### [facility] [address] [address] [address] Julisa Lowe WBC 13.4 103/ul Critically high 4.0-11.0 [facility] Comment on above: Performed By: #### S EDR #### [facility] [address] [address] [address] Julisa Lowe GLYCOHEMOGLOBIN A1Con 2020 ADA RECOMMENDATION ADA THERAPEUTIC TARGET 6.0 - 7.0 ACTION SUGGESTED > 7.0 Normal [facility] Comment on above: Performed By: #### A 1C #### [facility] [address] [address] [address] Julisa Lowe Glucose [Mass/Vol] 151 mg/dL Normal [facility] Comment on above: Performed By: #### A 1C #### [facility] [address] [address] [address] Julisa Lowe HbA1c (Bld) [Mass fraction] 6.9 % Critically high <=6.0 [facility] Comment on above: Performed By: #### A 1C #### [facility] [address] [address] [address] Julisa Lowe LIPID PROFILEon 09-10-2021 CHOL-HDL RATIO NORM SEE BELOW Normal [facility] Comment on above: Result Comment: 3.3 - 4.4 LOW RISK 4.4 - 7.1 AVERAGE RISK 7.1 - 11.0 MODERATE RISK >11.0 HIGH RISK Performed By: #### A 1C #### [facility] [address] [place] [address] Dr. Julisa Lowe Cholesterol [Mass/Vol] 121 mg/dL Normal <=200 Th [facility] Comment on above: Performed By: #### A 1C #### [facility] [address] [address] [address] Julisa Lowe Cholesterol in HDL [Mass/Vol] 55 mg/dL Normal [facility] Comment on above: Performed By: #### A 1C #### [facility] [address] [address] [address] Julisa Lowe Cholesterol in LDL [Mass/Vol] 46.8 mg/dL Normal [facility] Comment on above: Performed By: #### A 1C #### [facility] [address] [place] [address] Dr. Julisa Lowe Cholesterol.total/Chol esterol in HDL [Mass ratio] 2.2 {ratio} Normal [facility] Comment on above: Performed By: #### A 1C #### [facility] [address] [place] [address] Dr. Julisa Lowe HDL NORMAL > or = 60 mg/dl - LO W CARDIOVASCULAR RISK <40 mg/dl - HIGH CARDIOVASCULAR RISK Normal [facility] Comment on above: Performed By: #### A 1C #### [facility] [address] [place] [address] Dr. Julisa Lowe LDL CALC NORMAL SEE BELOW Normal [facility] Comment on above: Result Comment: <100 mg/dl OPTIMAL 100 - 129 mg/dl NEAR OR ABOVE OPTIMAL 130 - 159 mg/dl BORDERLINE HIGH 160 - 189 mg/dl HIGH >190 mg/dl VERY HIGH Performed By: #### A 1C #### [facility] [address] [place] [address] Dr. Julisa Lowe Triglyceride [Mass/Vol] 96 mg/dL Normal <=150 [facility] Comment on above: Performed By: #### A 1C #### [facility] [address] [place] [address] Dr. Juilsa Lowe VLDL CALC 19.2 mg/dL Normal [facility] Comment on above: Performed By: #### A 1C #### [facility] [address] [place] [address] Dr. Julisa Lowe MICROALBUMIN, RAND URon 12- mALB 33.4 mg/L Critically high <=30.0 [facility] Comment on above: Performed By: #### S EDR #### [facility] [address] [place] [address] Dr. Julisa Lowe PROF 14(COMP METB)on 021 Albumin [Mass/Vol] 3.4 g/dL Critically low 3.5-5.0 [facility] Comment on above: Performed By: #### A 1C #### [facility] [address] [place] [address] Dr. Julisa Lowe Albumin/Globulin [Mass ratio] 1.3 {ratio} Normal [facility] Comment on above: Performed By: #### A 1C #### [facility] [address] [place] [address] Dr. Julisa Lowe ALP [Catalytic activity/Vol] 74 U/L Normal 38-126 [facility] Comment on above: Performed By: #### A 1C #### [facility] [address] [place] [address] Dr. Julisa Lowe ALT [Catalytic activity/Vol] 11 U/L Normal 9-52 [facility] Comment on above: Performed By: #### A 1C #### [facility] [address] [place] [address] Dr. Julisa Lowe Anion gap [Moles/Vol] 18.2 mmol/L Normal [facility] Comment on above: Performed By: #### A 1C #### [facility] [address] [place] [address] Dr. Julisa Lowe AST [Catalytic activity/Vol] 12 U/L Critically low 14-36 [facility] Comment on above: Performed By: #### A 1C #### [facility] [address] [place] [address] Dr. Julisa Lowe Bilirubin [Mass/Vol] 0.3 mg/dL Normal 0.2-1.3 [facility] Comment on above: Performed By: #### A 1C #### [facility] [address] [place] [address] Dr. Julisa Lowe Calcium [Mass/Vol] 9.3 mg/dL Normal 8.4-10.2 [facility] Comment on above: Performed By: #### A 1C #### [facility] [address] [place] [address] Dr. Julisa Lowe Chloride [Moles/Vol] 105 mmol/L Normal 98-107 [facility] Comment on above: Performed By: #### A 1C #### [facility] [address] [place] [address] Dr. Julisa Lowe Creatinine [Mass/Vol] 0.62 mg/dL Normal 0.52-1.04 [facility] Comment on above: Performed By: #### A 1C #### [facility] [address] [place] [address] Dr. Julisa Lowe EGFR-AF PALESTINIAN >60 Normal >=60 [facility] Comment on above: Performed By: #### A 1C #### [facility] [address] [place] [address] Dr. Julisa Lowe EGFR-NON AF PALESTINIAN >60 Normal >=60 [facility] Comment on above: Performed By: #### A 1C #### [facility] [address] [place] [address] Dr. Julisa Lowe Globulin (S) [Mass/Vol] 2.7 g/dL Normal [facility] Comment on above: Performed By: #### A 1C #### [facility] [address] [place] [address] Dr. Julisa Lowe Glucose [Mass/Vol] 134 mg/dL Critically high 74-106 [facility] Comment on above: Performed By: #### A 1C #### [facility] [address] [place] [address] Dr. Julisa Lowe Potassium [Moles/Vol] 4.3 mmol/L Normal 3.4-5.0 [facility] Comment on above: Performed By: #### A 1C #### [facility] [address] [place] [address] Dr. Julisa Lowe Protein [Mass/Vol] 6.1 g/dL Normal 6.1-8.2 [facility] Comment on above: Performed By: #### A 1C #### [facility] [address] [address] [address] Julisa Lowe Sodium [Moles/Vol] 142 mmol/L Normal 137-145 [facility] Comment on above: Performed By: #### A 1C #### [facility] [address] [address] [address] Julisa Lowe Urea nitrogen [Mass/Vol] 23.0 mg/dL Critically high 7.0-17.0 [facility] Comment on above: Performed By: #### A 1C #### [facility] [address] [address] [address] Julisa Lowe Urea nitrogen/Creatinine [Mass ratio] 37.1 mg/mg Normal [facility] Comment on above: Performed By: #### A 1C #### [facility] [address] [place] [address] Dr. Julisa Lowe [facility] SARS-CoV-2 (COVID-19) RNA CHALINO+probe Ql (Unsp spec) Not detected Normal NOT DETECTED [facility] Comment on above: Result Comment: This test is not yet approved or cleared by the [place] FDA. When there are no FDA-approved or cleared tests available, and other criteria are met, FDA can make tests available under an emergency access mechanism called an Emergency Use Authorization (EUA). The EUA for this test is supported by the School Custodian of Health and Human Service's (HHS's) declaration [...] SARS-CoV-2. Performed By: #### C VDTBH #### [facility] [address] [place] [address] Dr. Julisa Lowe Vital Signs Date Time Vital Sign Value Performing Clinician Facility 11-02-2024 08:50-0500 Body height 154.9 cm Tj Ramirez [employer]RA[employer] Work Phone: [facility] 11-02-2024 08:50-0500 Body mass index (BMI) [Ratio] 24.94 kg/m2 Tj Ramirez [employer] Work Phone: [facility] 11-02-2024 08:50-0500 Body temperature 97.59 [degF] Tj Ramirez [employer] Work Phone: [facility] 11-02-2024 08:50-0500 Body weight 59.88 kg Jt Ramirez GRAIN [employer]ER Work Phone: [facility] 11-02-2024 08:50-0500 Diastolic blood pressure 66 mm[Hg] Tj Ramirez [employer] Work Phone: [facility] 11-02-2024 08:50-0500 Heart rate 81 /min Tj Ramirez [employer] Work Phone: [facility] 11-02-2024 08:50-0500 Respiratory rate 18 /min Tj Ramirez [employer] Work Phone: [facility] 11-02-2024 08:50-0500 SaO2% (BldA) [Mass fraction] 99 % Tj Ramirez [employer]ER Work Phone: [facility] 11-02-2024 08:50-0500 Systolic blood pressure 102 mm[Hg] Tj Ramirez GRA[employer]ER Work Phone: [facility] 10-18-2024 10:34-0500 Body height 154.9 cm Christopher Garrett MD Work Phone: [facility] 10-18-2024 10:34-0500 Body mass index (BMI) [Ratio] 25.51 kg/m2 Christopher Garrett MD Work Phone: [facility] 10-18-2024 10:34-0500 Body weight 61.24 kg Christopher Garrett MD Work Phone: [facility] 10-18-2024 10:34-0500 Diastolic blood pressure 60 mm[Hg] Christopher Garrett MD Work Phone: [facility] 10-18-2024 10:34-0500 Heart rate 84 /min Christopher Garrett MD Work Phone: [facility] 10-18-2024 10:34-0500 Respiratory rate 18 /min Christopher Garrett MD Work Phone: [facility] 10-18-2024 10:34-0500 SaO2% (BldA) [Mass fraction] 97 % Christopher Garrett MD Work Phone: [facility] 10-18-2024 10:34-0500 Systolic blood pressure 90 mm[Hg] Christopher Garrett MD Work Phone: [facility] 08-15-2024 09:45-0500 Body height 154.9 cm Christopher Garrett MD Work Phone: [facility] 08-15-2024 09:45-0500 Body mass index (BMI) [Ratio] 24.75 kg/m2 Christopher Garrett MD Work Phone: [facility] 08-15-2024 09:45-0500 Body weight 59.42 kg Christopher Garrett MD Work Phone: [facility] 08-15-2024 09:45-0500 Diastolic blood pressure 56 mm[Hg] Christopher Garrett MD Work Phone: [facility] 08-15-2024 09:45-0500 Heart rate 87 /min Christopher Garrett MD Work Phone: [facility] 08-15-2024 09:45-0500 Respiratory rate 18 /min Christopher Garrett MD Work Phone: [facility] 08-15-2024 09:45-0500 Systolic blood pressure 96 mm[Hg] Christopher Garrett MD Work Phone: [facility] 08-01-2024 09:58-0500 Body height 154.9 cm Tj Ramirez GRAIN [employer]ER Work Phone: [facility] 08-01-2024 09:58-0500 Body mass index (BMI) [Ratio] 24.83 kg/m2 Tj Ramirez [employer] Work Phone: [facility] 08-01-2024 09:58-0500 Body temperature 96.69 [degF] Tj Ramirez G[employer]ER Work Phone: [facility] 08-01-2024 09:58-0500 Body weight 59.6 kg Tj Ramirez [employer] Work Phone: [facility] 08-01-2024 09:58-0500 Diastolic blood pressure 80 mm[Hg] Tj Ramirez G[employer]ER Work Phone: [facility] 08-01-2024 09:58-0500 Heart rate 85 /min Tj Ramirez [employer] Work Phone: [facility] 08-01-2024 09:58-0500 Respiratory rate 18 /min Tj Ramirez G[employer] Work Phone: [facility] 08-01-2024 09:58-0500 Systolic blood pressure 132 mm[Hg] Tj Ramirez GRA[employer]ER Work Phone: [facility] 05-09-2024 09:03-0400 Diastolic blood pressure 72 mm[Hg] Shante Orzech [facility] 05-09-2024 09:03-0400 Heart rate 90 /min Shante Orzech [facility] 05-09-2024 09:03-0400 Systolic blood pressure 109 mm[Hg] Shante Orzech [facility] 05-03-2024 10:20-0400 Body height 154.9 cm Tj Ramirez G[employer]ER Work Phone: [facility] 05-03-2024 10:20-0400 Body mass index (BMI) [Ratio] 26.64 kg/m2 Tj Ramirez [employer] Work Phone: [facility] 05-03-2024 10:20-0400 Body temperature 97 [degF] Tj Ramirez [employer] Work Phone: [facility] 05-03-2024 10:20-0400 Body weight 63.96 kg Tj Ramirez [employer] Work Phone: [facility] 05-03-2024 10:20-0400 Diastolic blood pressure 68 mm[Hg] Tj Ramirez G[employer] Work Phone: [facility] 05-03-2024 10:20-0400 Heart rate 82 /min Tj Ramirez [employer] Work Phone: [facility] Comment on above: 100% O2 05-03-2024 10:20-0400 Systolic blood pressure 110 mm[Hg] Tj Ramirez G[employer]ER Work Phone: [facility] 02-29-2024 10:35-0400 Blood Pressure Location Shante Orzech [facility] 02-29-2024 10:35-0400 Diastolic blood pressure 78 mm[Hg] Shante Orzech [facility] 02-29-2024 10:35-0400 Heart rate 68 /min Shante Orzech [facility] 02-29-2024 10:35-0400 Respiratory rate 16 /min Shante Orzech [facility] 02-29-2024 10:35-0400 Systolic blood pressure 132 mm[Hg] Shante Schmittzeyovani [facility] 05-12-2022 15:00-0400 Diastolic blood pressure 49 mm[Hg] Chair Hilda Work Phone: [facility] 05-12-2022 15:00-0400 Heart rate 98 /min Chair Hilda Work Phone: [facility] 05-12-2022 15:00-0400 SaO2% (BldA) [Mass fraction] 95 % Chair [place] Work Phone: [facility] 05-12-2022 15:00-0400 Systolic blood pressure 137 mm[Hg] Chair Hilda Work Phone: [facility] 05-12-2022 13:30-0400 Body temperature 98.6 [degF] Chair Hilda Work Phone: [facility] 05-12-2022 10:15-0400 Diastolic blood pressure 87 mm[Hg] MD Hood Patel Work Phone: [facility] 05-12-2022 10:15-0400 Heart rate 82 /min MD Hood Patel Work Phone: [facility] 05-12-2022 10:15-0400 Respiratory rate 16 /min MD Hood Patel Work Phone: [facility] 05-12-2022 10:15-0400 SaO2% (BldA) [Mass fraction] 100 % MD Hood Patel Work Phone: [facility] 05-12-2022 10:15-0400 Systolic blood pressure 149 mm[Hg] MD Hood Patel Work Phone: [facility] 05-12-2022 07:54-0400 Body height 154.94 cm MD Hood Patel Work Phone: [facility] 05-12-2022 07:54-0400 Body weight 53.52 kg MD Hood Patel Work Phone: [facility] 05-06-2022 14:29-0400 Body temperature 99 [degF] Chair [place] Work Phone: [facility] 05-06-2022 14:29-0400 Diastolic blood pressure 51 mm[Hg] Chair [place] Work Phone: [facility] 05-06-2022 14:29-0400 Heart rate 93 /min Chair Hilda Work Phone: [facility] 05-06-2022 14:29-0400 Respiratory rate 16 /min Chair [place] Work Phone: [facility] 05-06-2022 14:29-0400 SaO2% (BldA) [Mass fraction] 98 % Chair Hilda Work Phone: [facility] 05-06-2022 14:29-0400 Systolic blood pressure 129 mm[Hg] Chair Hilda Work Phone: [facility] 04-28-2022 10:47-0400 Body temperature 98.91 [degF] Chair [place] Work Phone: [facility] 04-28-2022 10:47-0400 Diastolic blood pressure 64 mm[Hg] Chair [place] Work Phone: [facility] 04-28-2022 10:47-0400 Heart rate 88 /min Chair [place] Work Phone: [facility] 04-28-2022 10:47-0400 Respiratory rate 18 /min Chair Hilda Work Phone: [facility] 04-28-2022 10:47-0400 SaO2% (BldA) [Mass fraction] 98 % Chair [place] Work Phone: [facility] 04-28-2022 10:47-0400 Systolic blood pressure 122 mm[Hg] Chair Hilda Work Phone: [facility] 04-22-2022 14:02-0400 Body temperature 99 [degF] Chair [place] Work Phone: [facility] 04-22-2022 14:02-0400 Diastolic blood pressure 56 mm[Hg] Chair [place] Work Phone: [facility] 04-22-2022 14:02-0400 Heart rate 95 /min Chair [place] Work Phone: [facility] 04-22-2022 14:02-0400 Respiratory rate 18 /min Chair Hilda Work Phone: [facility] 04-22-2022 14:02-0400 SaO2% (BldA) [Mass fraction] 96 % Chair Hilda Work Phone: [facility] 04-22-2022 14:02-0400 Systolic blood pressure 123 mm[Hg] Chair Hilda Work Phone: [facility] 10-14-2021 14:15-0500 Body height 154.94 cm Lawanda Olexa Other [facility] Other 10-14-2021 14:15-0500 Body mass index (BMI) [Ratio] 22.26 kg/m2 Lawanda Olexa Other [facility] Other 10-14-2021 14:15-0500 Body weight 53.43 kg Lawanda Olexa Other [facility] Other Encounters Encounter Date Encounter Type Care Provider Facility Start: 11-02-2024 End: 11-02-2024 Bamboo flowsheet Tj Ramirez [employer] Work Phone: [facility] Start: 11-02-2024 End: 11-02-2024 Gregboo flowsheet Tj Ramirez [employer] Work Phone: [facility] Start: 11-02-2024 End: 11-02-2024 Office outpatient visit 15 minutes Tj Ramirez G[employer]ER Work Phone: [facility] Comment on above: Mixed hyperlipidemia (CMS/HCC) [...] 45 minutes Christopher Garrett MD [facility] Comment on above: Type [...] Not Available Start: 08-04-2024 End: 08-04-2024 ambulatory [facility] Start: 08-01-2024 End: 08-01-2024 Bamboo flowsheet Tj Ramirez G[employer]ER Work Phone: [facility] Start: 08-01-2024 End: 08-01-2024 Bamboo flowsheet Tj Ramirez G[employer] Work Phone: [facility] Start: 08-01-2024 End: 08-01-2024 Office outpatient visit 15 minutes Tj Ramirez G[employer]ER Work Phone: [facility] Comment on above: Type 2 [...] 07-27-2024 End: 07-27-2024 Orders Only Tj Nuneszpatrick G[employer]ER Work Phone: [facility] Comment on above: Type 2 diabetes rosemary itus with stage 3a chronic kidney disease, with long-term current use of insulin (HCC) (CMS/HCC) (Primary Dx) Start: 07-17-2024 End: 07-17-2024 Telephone encounter Alondra Erika G[employer]ER Work Phone: [facility] Start: 07-13-2024 End: 07-13-2024 ambulatory Shante X Orzech Facility:[facility] Start: 07-13-2024 End: 07-13-2024 Patient encounter procedure Shante X Orzech [facility] Start: 05-23-2024 End: 06-05-2024 Clinisync Result [...] 05-09-2024 Lab Drop off Shante X Orzech [facility] Start: 05-09-2024 End: 05-09-2024 ambulatory Shante X Orzech Facility:[facility] Start: 05-09-2024 End: 05-09-2024 Patient encounter procedure Shante X Orzech [facility] Start: 05-08-2024 End: 05-08-2024 Clinisync Result Encounter Tj Diazk G[employer]ER Work Phone: [facility] Unsolicited Start: 05-08-2024 End: 05-08-2024 Clinisync Result Encounter Tj Ramirez [employer] Work Phone: [facility] Unsolicited Start: 05-08-2024 End: 05-09-2024 ambulatory [facility] Start: 05-03-2024 End: 05-03-2024 Bamboo flowsheet Tj Ramirez G[employer] Work Phone: [facility] Start: 05-03-2024 End: 05-03-2024 Bamboo flowsheet Tj Ramirez G[employer] Work Phone: [facility] Start: 05-03-2024 End: 05-03-2024 Office outpatient visit 25 minutes Tj Ramirez G[employer]ER Work Phone: [facility] Comment on above: Primary [...] Not Available Start: 03-14-2024 End: 03-14-2024 ambulatory [facility] Start: 02-29-2024 End: 02-29-2024 ambulatory Shante X Orzech Facility:[facility] Start: 02-29-2024 End: 02-29-2024 Lab Drop off Shante X Orzech [facility] Start: 02-29-2024 End: 02-29-2024 ambulatory Shante X Orzech Facility:[facility] Start: 02-29-2024 End: 02-29-2024 Patient encounter procedure Shante X Orzech [facility] Start: 01-04-2024 End: 01-04-2024 ambulatory SHAIKH CLARE Not Available Start: 08-17-2023 Patient encounter procedure Tj Ramirez NP Work Phone: [facility] Start: 06-22-2022 End: 06-23-2022 ambulatory SHAIKH Ivette SPARKS Facility: Start: 05-12-2022 End: 05-12-2022 ambulatory Chair 15 Hilda Work Phone: Hematology/Oncology Comment on above: Iron deficiency anem ia due to chronic blood loss (Primary Dx) Start: 05-07-2022 End: 05-07-2022 Patient encounter procedure MD Hood Patel Work Phone: [facility] Start: 05-06-2022 End: 05-06-2022 ambulatory [...] 04-15-2022 End: 04-15-2022 ambulatory Hood Patel Other [facility] Other Start: 04-15-2022 Telephone encounter Hood Obrien ck [facility] Start: 04-14-2022 Telephone encounter Christy jefferson RN Work Phone: Hematology/Oncology Comment on above: Critical Results (Gl ucose) Start: 04-14-2022 End: 04-14-2022 ambulatory Chair 15 Hilda Work Phone: H[facility]ology/Oncology Comment on above: Iron deficiency anem ia due to chronic blood loss (Primary Dx); Controlled type 2 diabetes mellitus without complication, unspecified whether intermission coordinator insulin use (HCC) Start: 04-08-2022 End: 04-09-2022 ambulatory WATERS H FAWWAD Facility:[facility] Start: 04-06-2022 Telephone encounter Christi lópez MD [facility] Comment on above: Appointment Confirma tion Start: [...] 10-14-2021 End: 10-14-2021 ambulatory Lawanda Alvarez Other [facility] Other Start: 10-14-2021 Office outpatient ne w 30 minutes Lawanda Alvarez [facility] Start: 09-10-2021 End: 09-11-2021 ambulatory WATERS H FAWWAD Facility:[facility] Start: 08-16-2021 Encounter for preprocedural laboratory examination DR LJ BRENNAN [facility] Start: 08-13-2021 End: 08-13-[address] [...] Start: 08-01-2024 Hemoglobin glycosylated a1c Tj Ramirez [employer] Work Phone: Start: 05-23-2024 FACTOR V LEIDEN MUTATION Generic External Data Provider Start: 05-17-2024 PROTEIN C-FUNCTIONAL Ge neric External Data Provider Start: 05-17-2024 PROTEIN S-ANTIGEN Gener ic External Data Provider Start: 05-17-2024 PROTEIN S-FUNCTIONAL Ge neric External Data Provider Start: 05-08-2024 ALL CBC WITH AUTO DIFF Tj Diazk [employer] Work Phone: Start: 03-08-2024 Mammography Tj sainz G[employer]ER Work Phone: Start: 04-14-2022 Gluc bld gluc [...] 09-13-2030 Screening for malignant neoplasm of colon [facility] Start: 10-16-2025 Urine screening for protein Diabetes: Urine Protein Screening [facility] Start: 05-08-2025 Urine screening for protein Diabetes: Urine Protein Screening [facility] Start: 04-14-2025 DIABETES SCREEN DIABETES SCREEN [facility] Start: 03-08-2025 Screening for malignant neoplasm of breast Mammogram [facility] Start: 02-21-2025 End: 02-21-2025 Patient encounter procedure 02/21/2025 10:50 AM EDT Office Visit [facility] [address] [place] [address] Christopher Garrett MD [address] [place] [address] [facility] Start: 02-13-2025 Hemoglobin A1c measurement Diabetes: Hemoglobin A1C [facility] Start: 01-30-2025 End: 01-30-2025 Patient encounter procedure 01/30/2025 10:00 AM EDT Office Visit [facility] [address] [place] [id number] Tj Ramirez, JOSE [address] [place] [address] [facility] Start: 01-29-2025 Hemoglobin A1c measurement Diabetes: Hemoglobin A1C [facility] Start: 11-02-2024 End: 11-02-2024 Patient encounter procedure [facility] Comment on above: Arrived Start: 10-18-2024 End: 10-18-2024 Patient encounter procedure [facility] Comment on above: Diabetic autonomic neuropathy associated with type 2 diabetes mellitus ([facility]/HCC) Start: 09-13-2024 Glaucoma screening Diabetes: Retinopathy Screening [facility] Start: 08-17-2024 Medicare Annual Wellness (AWV) Medicare Annual Wellness (AWV) [facility] Start: 08-15-2024 End: 08-15-2025 25-hydroxyvitamin D3 [Mass/volume] in Serum or Plasma Vitamin D 25 hydroxy Total Lab Routine Type 2 diabetes mellitus with diabetic autonomic (poly)neuropathy (CMS/HCC) Expected: 08/15/2024 (Approximate), Expires: 08/15/2025 [facility] Comment on above: Expected: 08/15/2024 (Approximate), Expi res: 08/15/2025 Start: 08-15-2024 End: 08-15-2025 C-peptide C-peptide Lab Routine Type 2 diabetes mellitus with diabetic autonomic (poly)neuropathy (CMS/HCC) Expected: 08/15/2024 (Approximate), Expires: 08/15/2025 [facility] Work Phone: Comment on above: Expected: 08/15/2024 (Approximate), Expi res: 08/15/2025 Start: 08-15-2024 End: 08-15-2025 Lipid 1996 panel - Serum or Plasma Lipid panel Lab Routine Type 2 diabetes mellitus with diabetic autonomic (poly)neuropathy (CMS/HCC) Expected: 08/15/2024 (Approximate), Expires: 08/15/2025 [facility] Comment on above: Expected: 08/15/2024 (Approximate), Expi res: 08/15/2025 Start: 08-15-2024 End: 08-15-2025 Microalbumin/Creatinine panel in random Urine Microalbumin / creatinine urine ratio Lab Routine Type 2 diabetes mellitus with diabetic autonomic (poly)neuropathy (CMS/HCC) Expected: 08/15/2024 (Approximate), Expires: 08/15/2025 [facility] Comment on above: Expected: 08/15/2024 (Approximate), Expi res: 08/15/2025 Start: 08-15-2024 End: 08-15-2025 Renal function panel Renal function panel Lab Routine Type 2 diabetes mellitus with diabetic autonomic (poly)neuropathy (CMS/HCC) Expected: 08/15/2024 (Approximate), Expires: 08/15/2025 [facility] Comment on above: Expected: 08/15/2024 (Approximate), Expi res: 08/15/2025 Start: 08-15-2024 End: 08-15-2024 Patient encounter procedure [facility] Comment on above: Type 2 diabetes mellitus with hyperglyce loree, with long-term current use of insulin ([facility]); Type 2 diabetes mellitus with diabetic autonomic (poly)neuropathy ([facility]) Start: 08-12-2024 Urine screening for protein Diabetes: Urine Protein Screening [facility] Start: 08-01-2024 End: 08-01-2024 Patient encounter procedure [facility] Comment on above: Arrived Start: 07-27-2024 End: 07-27-2025 Hemoglobin A1c/Hemoglobin.total in Blood Hemoglobin A1c Lab Routine Type 2 diabetes mellitus with stage 3a chronic kidney disease, with long-term current use of insulin ([facility]) ([facility]) Expected: 07/27/2024 (Approximate), Expires: 07/27/2025 [facility] Work Phone: Comment on above: Expected: 07/27/2024 (Approximate), Expi res: 07/27/2025 Start: 07-20-2024 End: 07-20-2024 Patient encounter procedure 07/20/2024 10:20 AM EST Office Visit [facility] [address] [place] [id number] Ammon Khanna DPM [address] [facility] [address] [place] [address] [facility] Start: 06-15-2024 Hemoglobin A1c measurement Diabetes: Hemoglobin A1C [facility] Start: 06-01-2024 End: 06-01-2024 Patient encounter procedure 06/01/2024 9:20 AM EDT Office Visit [facility] [address] [place] [phone] Ammon Khanna DPM [address] [facility] [address] [place], [place] [id number] [facility] Start: 05-14-2024 Influenza vaccination Influenza Vaccine (#1) [facility] Start: 05-03-2024 End: 05-03-2025 CBC W Auto Differential panel - Blood CBC and differential Lab Routine Primary hypertension ([facility]) PAF (paroxysmal atrial fibrillation) ([facility]) Type 2 diabetes mellitus with stage 3a chronic kidney disease, with long-term current use of insulin (HCC) ([facility]/HCC) Expected: 05/03/2024 (Approximate), Expires: 05/03/2025 [facility] Comment on above: Expected: 05/03/2024 (Approximate), Expi res: 05/03/2025 Start: 05-03-2024 End: 05-03-2025 Comprehensive metabolic 2000 panel - Serum or Plasma Comprehensive metabolic panel Lab Routine Primary hypertension ([facility]) PAF (paroxysmal atrial fibrillation) ([facility]) Stage 3a chronic kidney disease (HCC) ([facility]) Type 2 diabetes mellitus with stage 3a chronic kidney disease, with long-term current use of insulin (HCC) ([facility]) Expected: 05/03/2024 (Approximate), Expires: 05/03/2025 [facility] Comment on above: Expected: 05/03/2024 (Approximate), Expi res: 05/03/2025 Start: 05-03-2024 End: 05-03-2025 Hemoglobin A1c/Hemoglobin.total in Blood Hemoglobin A1c Lab Routine Type 2 diabetes mellitus with stage 3a chronic kidney disease, with long-term current use of insulin (HCC) ([facility]) Expected: 05/03/2024 (Approximate), Expires: 05/03/2025 [facility] Comment on above: Expected: 05/03/2024 (Approximate), Expi res: 05/03/2025 Start: 05-03-2024 End: 05-03-2025 Lipid 1996 panel - Serum or Plasma Lipid panel Lab Routine Mixed hyperlipidemia ([facility]/HCC) Expected: 05/03/2024 (Approximate), Expires: 05/03/2025 [facility] Comment on above: Expected: 05/03/2024 (Approximate), Expi res: 05/03/2025 Start: 05-03-2024 End: 05-03-2025 Microalbumin/Creatinine panel in random Urine Microalbumin / creatinine urine ratio Lab Routine Primary hypertension ([facility]/HCC) Stage 3a chronic kidney disease (HCC) ([facility]) Type 2 diabetes mellitus with stage 3a chronic kidney disease, with long-term current use of insulin (HCC) ([facility]) Expected: 05/03/2024 (Approximate), Expires: 05/03/2025 [facility] Work Phone: Comment on above: Expected: 05/03/2024 (Approximate), Expi res: 05/03/2025 Start: 05-03-2024 End: 05-03-2024 Patient encounter procedure 05/03/2024 10:30 AM EDT Office Visit [facility] [address] [place] [address] Tj Ramirez NP [address] [place] [address] Primary hypertension (CMS/HCC) (Primary Dx); PAF (paroxysmal atrial fibrillation) (CMS/HCC); Stage 3a chronic kidney disease (HCC) (CMS/HCC); Type 2 diabetes mellitus with stage 3a chronic kidney disease, with long-term current use of insulin (HCC) (CMS/HCC); Mixed hyperlipidemia (CMS/HCC) [facility] Comment on above: Primary hypertension (CMS/HCC) (Primary Dx); PAF (paroxysmal atrial fibrillation) (CMS/HCC); Stage 3a chronic kidney disease (HCC) (CMS/HCC); Type 2 diabetes mellitus with stage 3a chronic kidney disease, with long-term current use of insulin (HCC) (CMS/HCC); Mixed hyperlipidemia (CMS/HCC) Start: 05-14-2022 Influenza vaccination INFLUENZA (#1) [facility] Start: 05-12-2022 [facility] Work Phone: Start: 05-12-2022 Esophagogastroduodenoscopy DH EGD (Not Applicable) [facility] Start: 05-12-2022 End: 05-12-2022 Admission to same day surgery center Iron deficiency anemia [facility] Start: 09-13-2021 ADVANCE DIRECTIVE DISCUSSION ADVANCE DIRECTIVE DISCUSSION [facility] Start: 09-20-2019 Pneumococcal Vaccine: 65+ Years (2 of 2 - PPSV23 or PCV20) Pneumococcal Vaccine: 65+ Years (2 of 2 - PPSV23 or PCV20) [facility] Start: 11-14-2015 BONE DENSITY BONE DENSITY [facility] Start: 11-14-1995 COLOGUARD (FIT-DNA) COLOGUARD (FIT-DNA) [facility] Start: 11-14-1995 Colonoscopy COLONOSCOPY [facility] Start: 11-14-1995 COLORECTAL CANCER SCREENING COLORECTAL CANCER SCREENING [facility] Start: 11-14-[address] COLONOGRAPHY [facility] Start: 11-14-1995 FECAL OCCULT BLOOD FECAL OCCULT BLOOD [facility] Start: 11-14-1995 LIPID SCREEN LIPID SCREEN [facility] Start: 11-14-1995 SIGMOIDOSCOPY SIGMOIDOSCOPY [facility] Start: 1990 Mammography MAMMOGRAM [facility] Start: 1969 SHINGRIX VACCINE (1 of 2) SHINGRIX VACCINE (1 of 2) [facility] Start: 1969 Urine microalbumin profile DTAP,TDAP,TD (1 - Tdap) [facility] Start: 1968 HEPATITIS C SCREENING HEPATITIS C SCREENING [facility] Start: 1962 Adult depression screening assessment DEPRESSION SCREENING [facility] Start: 1956 PNEUMOCOCCAL: 65+ (1 - PCV) PNEUMOCOCCAL: 65+ (1 - PCV) [facility] Start: 11-14-1955 COVID-19 VACCINE (#1) COVID-19 VACCINE (#1) [facility] Start: 05-16-1951 COVID-19 VACCINE (#1) COVID-19 VACCINE (#1) [facility] Start: 1950 Screening for malignant neoplasm of colon [facility] Glucose [Mass/volume ] in Serum or Plasma GLUCOSE, BLOOD (POC) Lab Routine Iron deficiency anemia due to chronic blood loss Controlled type 2 diabetes mellitus without complication, unspecified whether intermission coordinator insulin use (HCC) Ordered: 04/14/2022 [facility] Work Phone: Comment on above: Ordered: 04/14/2022 Patient Education Hiatal Hernia (DC) [facility] Work Phone: [facility] Immunizations Immunization Date Immunization Notes Care Provider Darío watts 08-01-2024 influenza, seasonal, injectable, preservative free Tj Ramirez [employer] Work Phone: [facility] 11-11-2021 influenza virus vaccine, unspecified formulation Tj Ramirez [employer] Work Phone: [facility] 11-11-2021 Influenza, High-dose Seasonal, Quadrivalent, Preservative Free Tj Ramirez [employer] Work Phone: [facility] 05-19-2021 influenza virus vaccine, unspecified formulation Tj Ramirez [employer] Work Phone: [facility] 05-19-2021 influenza, unspecifi ed formulation Shante Orzech [facility] 01-30-2021 SARS-CoV-2 (COVID-19 ) mRNA BNT-162b2 vax Shante Orzech [facility] Comment on above: Result Comment: 2023: [id number] 01-02-2021 SARS-CoV-2 (COVID-19 ) mRNA BNT-162b2 vax Shante Orzech [facility] 05-14-2020 influenza virus vaccine, unspecified formulation Shante Orzech [facility] 05-14-2020 Influenza, High-dose Seasonal, Quadrivalent, Preservative Free Tj Ramirez [employer] Work Phone: [facility] 07-26-2019 pneumococcal conjuga te vaccine, 13 valent Tj Ramirez [employer] Work Phone: [facility] 06-28-2019 influenza virus vaccine, unspecified formulation Shante Orzech [facility] 06-28-2019 influenza, high dose seasonal, preservative-free Tj Ramirez [employer] Work Phone: [facility] 08-22-2018 influenza virus vaccine, unspecified formulation Shante Orzech [facility] 08-22-2018 influenza, seasonal, injectable Tj Ramirez [employer] Work Phone: [facility] 06-18-2016 influenza virus vaccine, unspecified formulation Tj Ramirez [employer] Work Phone: [facility] 06-18-2016 influenza, unspecifi ed formulation Shante Orzech [facility] 06-20-2015 influenza virus vaccine, unspecified formulation Shante Orzech [facility] 06-20-2015 influenza, injectabl e, quadrivalent, preservative free Tj Ramirez [employer] Work Phone: [facility] 08-27-2009 novel [id number], preservative-free, injectable Tj Ramirez [employer] Work Phone: [facility] Payers Date Payer Category Payer Medicare (Managed Care) [employer] [id number] 2022 Medicaid MEDICAID [facility] MEDICAID [id number] 2022-Present [phone] [address] [place] [address] Medicaid [id number] 2021 Medicare [facility] MEDICARE [facility] DUAL COMPLETE HMO SNP [id number] 2021-Present [phone] [address] [place] [address] Medicare [id number] 2021 Medicare [id number]. [id number] 2019 Medicaid [id number] [id number]. [id number] 1959 Medicaid [id number] 2.16.840.1.008548.19 1959 Medicare [id number] 2.16.840.1.960594.19 1959 Medicare [id number] 2.16.840.1.997529.19 1959 Private Health Insurance [id number] 1950 Unknown [id number] 2.16.840.1.853704.3.579.2. 593 1950 Unknown [id number] 2.16.840.1.332193.3.579.2. 593 1950 Unknown [id number] 2.16.840.1.371035.3.579.2. 593 1950 Unknown [id number] 2.16.840.1.629495.3.579.2. 593 1950 Unknown [id number] 2.16.840.1.801444.3.579.2. 593 1950 Unknown [id number] 2.16.840.1.263455.3.579.2. 593 1950 Unknown [id number] 2.16.840.1.120193.3.579.2. 593 1950 Unknown [id number] 2.16.840.1.307495.3.579.2. 593 1950 Unknown [id number] 2.16.840.1.413556.3.579.2. 593 1950 Unknown [id number] 2.16.840.1.352552.3.579.2. 593 1950 Unknown [id number] 2.16.840.1.850048.3.579.2. 593 1950 Unknown [id number] 2.16.840.1.337261.3.579.2. 593 1950 Unknown [id number] 2.16.840.1.292066.3.579.2. 593 1950 Unknown [id number] 2.16.840.1.191184.3.579.2. 727 1950 Unknown [id number] 2.16.840.1.044087.3.579.2. 727 1950 Unknown [id number] 2.16.840.1.712226.3.579.2. 727 1950 Unknown [id number] 2.16.840.1.265694.3.579.2. 727 1950 Unknown [id number] 2.16.840.1.084214.3.579.2. 727 1950 Unknown [id number] 2.16.840.1.857943.3.579.2. 1259 1950 Unknown [id number] 2.16.840.1.851781.3.579.2. 1259 1950 Unknown [id number] 2.16.840.1.857778.3.579.2. 1259 1950 Unknown [id number] 2.16.840.1.038943.3.579.2. 1259 1950 Unknown [id number] 2.16.840.1.591551.3.579.2. 1259 1950 Unknown [id number] 2.16.840.1.514675.3.579.2. 1259 Medicare Medicare [id number] Private Health Insurance Human [id number] Self-pay Self Pay [id number] Social History Date Type Detail Facility Start: 08-17-2023 End: 05-02-2024 Sex Assigned At [facility] Start: 03-31-2016 End: 01-04-2024 Tobacco smoking status NHIS Never smoked tobacco [facility] Start: 03-31-2016 End: 01-04-2024 Tobacco use and exposure Smokeless tobacco non-user [facility] Start: 04-14-2022 End: 04-28-2022 Alcohol intake Current non-drinker of alcohol (finding) [facility] Start: 1950 Sex Assigned At Not on file C [facility] Start: 04-04-2022 End: 05-12-2022 Exposure to SARS-CoV-2 (event) Not sure [facility] Start: 1950 Sex Assigned At Female F [facility] Tobacco smoking status Never [facility] Start: 05-03-2024 End: 08-01-2024 Alcoholic beverage intake [...] Equipment Origin al Text Equipment Identifier Dates [id number], [id number], [id number] Start: 05-19-2023 Goals Date Patient Goal Desired Activity /State Functional Status Date Assessment Result Facility 05-09-2024 Functional Status N/A [facility] 02-29-2024 Functional Status N/A [facility] Clinical Notes 10-14-2021 to 11-02-2024 Tj [...] with long-term current use of insulin (HCC) ([facility]) Currently taking Novolog 5 units TID, Tresbia [...] presents for Follow-up. HPI Specialists: Cardiology- , [facility]- Urology: Dr. Shukla Oncology/Hematology- Factor [...] with long-term current use of insulin (HCC) ([facility]) Currently taking Novolog 5 units TID, Tresbia [...] on home glucose monitoring noted. Mixed hyperlipidemia ([facility]/HCC) - Primary Currently taking Atorvastatin 20mg Denies [...] 10 MG tablet documented in this encounter [facility] 10-18-2024 History of Presen t illness Narrative [...] 20 mg, Oral, Every morning Continuous Glucose Cloud Systems Architect ([employer] Toby 3 [place]) device 1 each, Does not apply, Daily [...] Chronic obstructive pulmonary disease, unspecified COPD type ([facility]/HCC) See Dr Serrano. Stable CKD stage 3 due to type 2 diabetes mellitus (HCC) ([facility]) Cr baseline. No change. BP at goal typically FSBS reviewed and slightly above goal. Has not followed with Nephrology for quite sometime DM (diabetes mellitus) ([facility]) BUCKNER (dyspnea on exertion) BUCKNER, on minimal exertion, associated Palpitations. No prior hx of CAD/ ischemic w/u Factor V Leiden ([facility]) Pt needs a refill on her medications today. On Eliquis. NO issues with the medications. NO bleeding. Fatigue, unspecified type reports fatigue, low energy GERD (gastroesophageal reflux disease) History of CVA (cerebrovascular accident) History of hysterectomy Hyperlipidemia ([facility]) Supposed to be on Lovastatin but not [...] Right shoulder pain Secondary pulmonary arterial hypertension ([facility]/HCC) Shoulder dislocation, right, sequela Thrombosis of left saphenous vein Type 2 diabetes mellitus ([facility]) Patient was previously on Novolin 70/30 along with Trulicity and Metformin Stopped using Insulin herself as it dropped her blood glucose too low Type 2 diabetes mellitus with diabetic autonomic neuropathy, with long-term current use of insulin ([facility]) Erratic & difficult to control,Partly because of [...] neuropathy associated with type 2 diabetes mellitus ([facility]/HCC) - POCT glucose manually resulted We will continue his Tresiba 10 units, decrease Humalog to 8 units every meal, continue his Farxiga 10 mg once a day, Trulicity 1.5 mg once weekly Mixed hyperlipidemia (CMS/HCC) Primary hypertension ([facility]) Encounter for dietary consultation Vitamin D deficiency - ergocalciferol (Vitamin D-2) 1.25 MG (59142 UT) capsule; Take 1 capsule (1.25 mg) by mouth 1 (one) time per week Hypoglycemia Microalbuminuria Albumin over creatinine 182 in September/2024 Follow up in about 4 months (around 02/15/2025). documented in this encounter [facility] 10-18-2024 Evaluation note Diagnosis Anemia due to [...] 2 diabetes mellitus with diabetic autonomic (poly)neuropathy ([facility]) Postural urinary incontinence Primary hypertension ([facility])- Primary Unspecified essential hypertension PAF (paroxysmal atrial fibrillation) ([facility]) Atrial fibrillation Stage 3a chronic kidney disease (HCC) ([facility]) Type 2 diabetes mellitus with stage 3a chronic kidney disease, with long-term current use of insulin (HCC) ([facility]) Mixed hyperlipidemia ([facility]) Mixed hyperlipidemia Chronic obstructive pulmonary disease, unspecified COPD type ([facility]) Gastroesophageal reflux disease without esophagitis Esophageal reflux Type 2 diabetes mellitus without complications ([facility]) Type 2 diabetes mellitus with stage 3a chronic kidney disease, with long-term current use of insulin (HCC) ([facility])- Primary Type 2 diabetes mellitus with diabetic autonomic (poly)neuropathy ([facility]) Chronic obstructive pulmonary disease, unspecified COPD type ([facility]) Need for immunization against influenza Need for prophylactic vaccination and inoculation against influenza Primary hypertension ([facility]) Unspecified essential hypertension Diabetic autonomic neuropathy associated with type 2 diabetes mellitus ([facility])- Primary Type II or unspecified type diabetes mellitus with neurological manifestations, not stated as uncontrolled Mixed hyperlipidemia ([facility]) Mixed hyperlipidemia Primary hypertension ([facility]) Unspecified essential hypertension Encounter for dietary consultation Vitamin D deficiency Hypoglycemia Hypoglycemia, unspecified Microalbuminuria Proteinuria [id number] History of Present illness Narrative* Christopher Garrett [...] each, 3 times daily PRN Continuous Glucose Cloud Systems Architect ([employer] Toby 3 [place]) device 1 each, Does not apply, Daily [...] (ZOFRAN) 4 mg, Every 8 hours PRN ButtonTouch Ultra test strip USE TO TEST ONCE [...] risk for falls [facility]. Pt states she cannot afford [...] back pain without sciatica Chronic lymphocytic leukemia ([facility]/HCC) Chronic obstructive pulmonary disease, unspecified COPD type ([facility]/HCC) See Dr Serrano. Stable CKD stage 3 due to type 2 diabetes mellitus (HCC) ([facility]) Cr baseline. No change. BP at goal typically FSBS reviewed and slightly above goal. Has not followed with Nephrology for quite sometime DM (diabetes mellitus) ([facility]) BUCKNER (dyspnea on exertion) BUCKNER, on minimal exertion, associated Palpitations. No prior hx of CAD/ ischemic w/u Factor V Leiden ([facility]) Pt needs a refill on her medications today. On Eliquis. NO issues with the medications. NO bleeding. Fatigue, unspecified type reports fatigue, low energy GERD (gastroesophageal reflux disease) History of CVA (cerebrovascular accident) History of hysterectomy Hyperlipidemia ([facility]) Supposed to be on Lovastatin but not [...] Right shoulder pain Secondary pulmonary arterial hypertension ([facility]) Shoulder dislocation, right, sequela Thrombosis of left saphenous vein Type 2 diabetes mellitus ([facility]) Patient was previously on Novolin 70/30 along with Trulicity and Metformin Stopped using Insulin herself as it dropped her blood glucose too low Type 2 diabetes mellitus with diabetic autonomic neuropathy, with long-term current use of insulin ([facility]) Erratic & difficult to control,Partly because of [...] I will stop insulin 70/30 and start [id number] units at bedtime, NovoLog 3-4-5 according to meal size plus scale 1. Instruction given, continuehis Farxiga 10 mg, continue with Trulicity 1.5 mg once a day we will check lab before next visit including C-peptide Mixed hyperlipidemia (CMS/HCC) Primary hypertension ([facility]) Encounter for dietary consultation Diet and exercise reviewed with the patient Vitamin D deficiency Hypoglycemia Class 1 obesity due to excess calories with serious comorbidity and body mass index (BMI) of 31.0 to 31.9 in adult Follow up in about 3 months (around 2024). [id number] Evaluation note* Diagnosis Anemia due to chronic blood loss- Primary 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, with long-term current use of insulin (HCC) (CMS/HCC) Mixed hyperlipidemia (CMS/HCC) Mixed hyperlipidemia CLL (chronic lymphocytic leukemia) ([facility]/HCC) Chronic lymphoid leukemia, without mention of having [...] Unspecified essential hypertension PAF (paroxysmal atrial fibrillation) ([facility]/HCC) Atrial fibrillation Stage 3a chronic kidney disease (HCC) ([facility]/HCC) Type 2 diabetes mellitus with stage 3a chronic kidney disease, with long-term current use of insulin (HCC) ([facility]/HCC) Mixed hyperlipidemia ([facility]HCC) Mixed hyperlipidemia Chronic obstructive pulmonary disease, unspecified COPD type ([facility]HCC) Gastroesophageal reflux disease without esophagitis Esophageal reflux Type 2 diabetes mellitus without complications ([facility]/HCC) Type 2 diabetes mellitus with stage 3a chronic kidney disease, with long-term current use of insulin (HCC) ([facility] Primary Type 2 diabetes mellitus with diabetic autonomic (poly)neuropathy ([facility]/HCC) Chronic obstructive pulmonary disease, unspecified COPD type ([facility]HCC) Need for immunization against influenza Need for prophylactic vaccination and inoculation against influenza Primary hypertension ([facility]/HCC) Unspecified essential hypertension Type 2 diabetes mellitus with diabetic autonomic (poly)neuropathy ([facility]HCC)- Primary Mixed hyperlipidemia ([facility]) Mixed hyperlipidemia Primary hypertension ([facility]) Unspecified essential hypertension Encounter for dietary consultation Vitamin D deficiency Hypoglycemia Hypoglycemia, unspecified Class 1 obesity due to excess calories with serious comorbidity and body mass index (BMI) of 31.0 to 31.9 in adult documented in this encounter [facility] [id number] NoteCardiology Follow Up Progress Note HPI: Robina Ron is a 73 y.o. female who has a past medical history of Abnormal ECG, Anemia, Arrhythmia, Atrial fibrillation ([facility]/HCC), Chronic kidney disease, Clotting disorder ([facility]), Diabetes mellitus ([facility]), Hyperlipidemia, Hypertension, Pericardial effusion, and Stroke ([facility]). Patient here for 3 mo follow up hypertension, PAF, Factor V Leiden, and pericardial effusion. Lisinopril was reduced to 5mg at last apt in Apr 2024. She was admitted to [facility] in May 2024 for sepsis. Denies [...] as needed Edd Wade MD Interventional Cardiology [facility]11-19-2024 History of Present illness Narrative* Tj [...] Chronic obstructive pulmonary disease, unspecified COPD type ([facility]) Using rescue inhaler 1-2 times per month. Feels symptoms are well controlled. No longer follows pulmonolgy * Tj Ramirez NP - 08/01/2024 10:00 AM EST Images from the original note were not included. Subjective Patient ID: Robina Ron is a 73 y.o. female who presents for Hypertension. HPI Specialists: Follows Cardiology- , [facility]- Follows Urology: Dr. Shukla Sees Oncology/Hematology- Factor V Was admitted to [facility] on 06/03/2024 for colitis and septic [...] R ALBUMIN GLOBULIN RATIO 1.1 Resulting Agency [facility] DMII: Most recent labs: hemoglobin A1C 7.1% [...] range from 68-150 Checks BG levels using: [employer] continuous glucose monitor Several episodes of hypoglycemia [...] 2 diabetes mellitus with diabetic autonomic (poly)neuropathy ([facility]/HCC) Relevant Medications insulin NPH-insulin regular (HumuLIN 70/30 KWIKPEN) (70-30) 100 UNIT/ML injection Other Relevant Orders Ambulatory referral to Endocrinology POCT glycosylated hemoglobin (Hb A1C) docked device (Completed) Need for immunization against influenza Relevant Orders Flu vaccine greater than or equal to 3 years old, preservative free IM (Completed) documented in this [facility]11-19-2024 Instructions* Patient Instructions* Tj Ramirez NP - [...] carbohydrates, and simple sugars. documented in this [facility]11-04-2024 Telephone encounter Note* Telephone Encounter - Alondra [...] you know Alondra [facility] Work Phone: [phone]) 510-991911-04-2024 Miscellaneous Notes* Telephone Encounter - Alondra James [...] you know Alondra documented in this encounterSaint [facility] Health [id number] Evaluation + Plan note Diagnostic Tests Pending * Urine Culture 05/09/24 [facility] [id number] Hospital Discharge instructions Patient Education 05/09/2024 10:01:16 [...] nerve stimulation). ?For women, using a medical imaging technologist to prevent urine leaks. This is a [...] right after experiencing incontinence. General instructions Take qnyi-eyv-cgdvybq and prescription medicines only as told by [...] important. Where to find more information National [place] of Diabetes and Digestive and Kidney Diseases: www.niddk.nih.gov [place] [employer]: www.urologyhealth.org Contact a health care [...] provider. Document Revised: 04/04/2021 Document Reviewed: 04/04/2021 Prompt.ly Patient Education 2022 [employer]. 05/09/2024 10:01:15 Overactive Bladder, Adult Overactive Bladder, [...] your health care provider. General instructions Take duhz-vru-vnsqrfj and prescription medicines only as told by [...] provider. Document Revised: 05/19/2021 Document Reviewed: 05/19/2021 Prompt.ly Patient Education 2022 [employer]. Follow Up Care 02/29/2024 11:11:11 With:AMALIA Shukla APRN, Shante Bonilla, NAHEED, URL Address: When: Unknown Comments:6 months [facility] 08-27-2024 NotePatient Education Obstetrics and Gynecology [...] health care provider. General instructions ? Take vfnl-whq-kvjncat and prescription medicines only as told by [...] help your health care (more content not included)...[facility]08-26-2024 NoteCardiology Follow Up Progress Note [...] as needed Edd Wade MD Interventional Cardiology [facility]08-21-2024 History of Present illness Narrative* Tj [...] presents for Follow-up. HPI Follows Cardiology- , [facility]- next appointment unsure Follows Urology: [...] with long-term current use of insulin (HCC) ([facility]) States 14 day average 168 A1C needs completed. Ordered today No episodes of hypoglycemia No medication adverse effects reported by the patient. Stressed upon importance of checking blood glucose at home and bring blood glucose log to appointments. On NPH/Regular (70/30) 15 units q12, Farxiga, Trulicity and Glipizide. Relevant Medications Continuous Glucose Cloud Systems Architect (FreeStyle Toby 3 [place]) device Continuous Glucose Sensor (FreeStyle Toby 3 Plus Sensor) misc Other Relevant Orders Microalbumin / creatinine urine ratio Comprehensive metabolic panel CBC and differential Hemoglobin A1c Ambulatory referral to Podiatry Mixed hyperlipidemia ([facility]) Continue Lipitor 20mg Lipid panel ordered today. Relevant Orders Lipid panel Primary hypertension ([facility]) - Primary Has been checking BP at [...] Protonix as directed. PAF (paroxysmal atrial fibrillation) ([facility]) Relevant Orders Comprehensive metabolic panel CBC and differential Stage 3 chronic kidney disease (HCC) ([facility]) Continue Farxiga. Monitor labs. CMP ordered today. Relevant Orders Microalbumin / creatinine urine ratio Comprehensive metabolic panel Chronic obstructive pulmonary disease, unspecified COPD type ([facility]) Using rescue inhaler 1-2 times per month Feels symptoms are well controlled. No longer follows pulmonolgy Other Visit Diagnoses Type 2 diabetes mellitus without complications ([facility]) Relevant Medications Continuous Glucose Cloud Systems Architect (FreeStyle Toby 3 [place]) device Continuous Glucose Sensor (FreeStyle Toby 3 Plus Sensor) misc documented in this encounterSaint Joseph Health [id number] Instructions* Patient Instructions* Tj Ramirez NP - [...] carbohydrates, and simple sugars. documented in this [facility]07-02-2024 NoteCardiology Follow Up Progress Note Chief Complaint: Follow up HPI: Robina Ron is a 73 y.o. female who has a past medical history of Abnormal ECG, Anemia, Arrhythmia, Atrial fibrillation (CMS/HCC), Chronic kidney disease, Clotting disorder (CMS/HCC), Diabetes mellitus (CMS/HCC), Hyperlipidemia, Hypertension, Pericardial effusion, and Stroke ([facility]/HCC). That presents today for follow up. Patient [...] as needed Edd Wade MD Interventional Cardiology [facility]06-23-2024 NoteChief Complaint Referral *Incontinence HPI Staff [...] with voice recognition artificial intelligence software, specifically [employer], [employer] and or [employer]. Substitutions may have occurred due to the [...] with diabetic autonomic (poly)neuropathy (more content not included)...[facility] CenterComment on above:Result Comment: Electronically Signed By: AMALIA Shukla APRN, [place] X\.br\Date and Time Signed: 03/05/24 22:19 [id number] Miscellaneous Notes* Telephone Encounter - Makenna Kendall RN - 04/21/2022 1:47 PM EDT Pt has follow up appointment with Dr Rainey tomorrow. Makenna Kendall RN * Telephone Encounter - Makenna Kendall RN - 04/21/2022 1:31 PM EDT Spoke with Pankaj at Dr Rainey's office. Recent records and labs faxed to [phone] per office request. Makenna Kendall RN * Telephone Encounter - Makenna Kendall RN - 04/21/2022 12:54 PM EDT Message left with Dr Rainey's medical chemist again today regarding this pt and the urgency of this being addressed. Will try again later today if I don't hear back from their office. Makenna Kendall RN * Telephone Encounter - Makenna Kendall RN - 04/17/2022 10:39 AM EDT Call placed to [facility]. Office is closed. Makenna Kendall RN [...] pt is nowseen by Dr Rainey at [facility]. Call placed to their office ([phone]) and message left requesting a call back. PSS: can you please update pt's PCP info. Thanks, Makenna Kendall RN * Telephone Encounter - Christi Fink MD - 04/14/2022 1:39 PM EDT Thanks. Can we have her PCP address this, Thanks * Telephone Encounter - Christy Byrd RN - 04/14/2022 1:23 PM EDT Key Monteiro from [facility] Client Services calls to report critical results: Glucose - 506 Pt identifiers and results read back for verification. Christy Byrd RN [facility]-2022 Miscellaneous Notes* Telephone Encounter - Adrienne [...] Pss * Telephone Encounter - Shaye Gonzalez [place] - 04/06/2022 8:57 AM EDT Records faxed to Dr. Rich. * Telephone Encounter - Adrienne Weinstein Pss - 04/06/2022 8:12 AM EDT Gladys: Information ready for you. Adrienne Roth Pss * Telephone Encounter - Makenna Hidalgo Sec - 04/06/2022 7:47 AM EDT Images from the original note were not included. Please send records to [facility] office thanks! MD Tj Thompson; Makenna Hidalgo Sec Please refer her to GI for an upper endoscopy. Thanks documented in this encounterMer[facility]08-03-2022 Evaluation note* Encounter Date Diagnosis Assessment Notes Treatment Notes Treatment Clinical Notes Apr, Anemia due to blood loss, chronic (ICD-10 - D50.0) [facility] Other 08-02-2022 NoteHNO ID: [id number] Author: Brenda Tavera RN Service: ? Author [...] [facility]2022 NoteHNO ID: [id number] Author: Christi Fink MD Service: ? Author Type: Physician Type: Progress Notes Filed: 04/14/2022 1:13 PM Note Text: PATIENT NAME: Robina Ron CLINIC NO.: [id number] ATTENDING PHYSICIAN: Christi Fink MD DATE OF [...] - COPD (chronic obstructive pulmonary disease) ([facility]) - CVA (cerebral vascular accident) ([facility]) - Diabetes mellitus (HCC) - Dyspnea - Factor V Leiden (HCC) - GERD (gastroesophageal reflux disease) - History of colon polyps - Hyperlipidemia - Hypertension - Hypokalemia - Leukocytosis - JARRET (obstructive sleep apnea) - PAD (peripheral artery disease) ([facility]) - Pericardial effusion Social History Tobacco Use [...] Tavera RN documented in this encounterMer[facility]07-22-2022 NoteHNO ID: [id number] Author: Christi Fink MD Service: ? Author Type: Physician Type: Progress Notes Filed: 04/04/2022 11:07 AM Note Text: PATIENT NAME: Robina Ron CLINIC NO.: [id number] ATTENDING PHYSICIAN: Christi Fink MD DATE OF SERVICE: April 03, [address] Shaikh Sparks thank you for referring Mrs. Robian Ron for an opinion regarding iron deficiency. [...] not taking: Reported on 03/31/2022 ) - Mgdei-8-EKQ-EPA-Fish Oil 1,000 mg (120 mg-180 mg) cap [...] MEDICAL HISTORY Diagnosis Date - A-fib ([facility]) - Anemia - Asthma - Chronic low back pain with sciatica - COPD (chronic obstructive pulmonary disease) ([facility]) - CVA (cerebral (more content not included)...[place] [...] interpreted and reported in a separate dictation. [facility] Signed and Approved by: DR ALFRED SUGGS 03/03/2022 10:18:00[facility]02-01-2022 Evaluation note* Encounter Date Diagnosis Assessment [...] We discussed that there will be a jail cosmetic deformity at the AC joint, however, relatively normal function can return. If jail pain and dysfunction occur, surgical treatment can be considered. Patient given order for physical therapy. [facility] Other Evaluation + Plan note Future Appointments Appointment Date:04/11/2024 09:00:00 AM Scheduled Provider:AMALIA Shukla APRN, [place] X Location:[facility] Appointment Type:URO Office Visit [facility] evaluation + Plan note Future Appointments Appointment Date:04/11/2024 09:00:00 AM Scheduled Provider:AMALIA Shukla APRN Shante X Location:[facility] Appointment Type:URO Office Visit Diagnostic Tests Pending * [facility]rine [facility] Diagnosis Iron deficiency anemia due to chronic blood loss- Primary Iron deficiency anemia secondary to blood loss (chronic) Controlled type 2 diabetes mellitus without complication, unspecified whether intermission coordinator insulin use ([facility]) documented in this encounter [facility]* Diagnosis Iron deficiency anemia due to chronic blood loss- Primary Iron deficiency anemia secondary to blood loss (chronic) documented [facility] this encounter [facility]* Diagnosis Iron deficiency anemia due to chronic blood loss- Primary Iron deficiency anemia secondary to blood loss (chronic) documented in this encounter [facility] HospitalEvaluchristianac[facility] note* Diagnosis Iron deficiency anemia due to chronic blood loss- Primary Iron deficiency anemia secondary to blood loss (chronic) documented [facility] this encounter [facility]* Diagnosis Iron deficiency anemia due to chronic blood loss- Primary Iron deficiency anemia secondary to blood loss (chronic) documented [facility]* Diagnosis Onset Date Resolution Status Iron deficiency anemia [facility] Work Phone: Evaluation note* Diagnosis Anemia due to chronic blood loss- Primary 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, with long-term current use of insulin (HCC) ([facility]/HCC) Mixed hyperlipidemia ([facility]/HCC) Mixed hyperlipidemia CLL (chronic lymphocytic leukemia) ([facility]) Chronic lymphoid leukemia, without mention of having achieved remission Primary hypertension ([facility]/HCC) Unspecified essential hypertension Gastroesophageal reflux disease without esophagitis Esophageal reflux Encounter for Medicare annual wellness exam Screening mammogram for breast cancer Primary hypertension ([facility])- Primary Unspecified essential hypertension PAF (paroxysmal atrial fibrillation) ([facility]/HCC) Atrial fibrillation Stage 3a chronic kidney disease (HCC) ([facility]/HCC) Type 2 diabetes mellitus with stage 3a chronic kidney disease, with long-term current use of insulin (HCC) ([facility]) Type 2 diabetes mellitus with diabetic autonomic (poly)neuropathy ([facility]) Postural urinary incontinence Primary hypertension ([facility]/HCC)- Primary Unspecified essential hypertension PAF (paroxysmal atrial fibrillation) ([facility]/HCC) Atrial fibrillation Stage 3a chronic kidney disease (HCC) ([facility]) Type 2 diabetes mellitus with stage 3a chronic kidney disease, with long-term current use of insulin (HCC) ([facility]) Mixed hyperlipidemia ([facility]/HCC) Mixed hyperlipidemia Chronic obstructive pulmonary disease, unspecified COPD type ([facility]/HCC) Gastroesophageal reflux disease without esophagitis Esophageal reflux Type 2 diabetes mellitus without complications ([facility]/HCC) Type 2 diabetes mellitus with stage 3a chronic kidney disease, with long-term current use of insulin (HCC) ([facility])- Primary Type 2 diabetes mellitus with diabetic autonomic (poly)neuropathy ([facility]/HCC) Chronic obstructive pulmonary disease, unspecified COPD type ([facility]/HCC) Need for immunization against influenza Need for prophylactic vaccination and inoculation against influenza Primary hypertension ([facility]) Unspecified essential hypertension documented in this encounter [facility] HealthcareEvaluation note* Diagnosis Anemia due to chronic blood loss- Primary 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, with long-term current use of insulin (HCC) ([facility]) Mixed hyperlipidemia ([facility] Mixed hyperlipidemia CLL (chronic lymphocytic leukemia) ([facility]) Chronic lymphoid leukemia, without mention of having achieved remission Primary hypertension ([facility]) Unspecified essential hypertension Gastroesophageal reflux disease without esophagitis Esophageal reflux Encounter for Medicare annual wellness exam Screening mammogram for breast cancer Primary hypertension ([facility])- Primary Unspecified essential hypertension PAF (paroxysmal atrial fibrillation) ([facility]) Atrial fibrillation Stage 3a chronic kidney disease (HCC) ([facility]) Type 2 diabetes mellitus with stage 3a chronic kidney disease, with long-term current use of insulin (HCC) ([facility]) Type 2 diabetes mellitus with diabetic autonomic (poly)neuropathy ([facility]/HCC) Postural urinary incontinence Primary hypertension ([facility])- Primary Unspecified essential hypertension PAF (paroxysmal atrial fibrillation) ([facility]) Atrial fibrillation Stage 3a chronic kidney disease (HCC) ([facility]) Type 2 diabetes mellitus with stage 3a chronic kidney disease, with long-term current use of insulin (HCC) ([facility]/HCC) Mixed hyperlipidemia ([facility]) Mixed hyperlipidemia Chronic obstructive pulmonary disease, unspecified COPD type ([facility]) Gastroesophageal reflux disease without esophagitis Esophageal reflux Type 2 diabetes mellitus without complications ([facility]/HCC) Type 2 diabetes mellitus with stage 3a chronic kidney disease, with long-term current use of insulin (HCC) ([facility])- Primary Type 2 diabetes mellitus with stage 3a chronic kidney disease, with long-term current use of insulin (HCC) ([facility])- Primary Type 2 diabetes mellitus with diabetic autonomic (poly)neuropathy ([facility]) Chronic obstructive pulmonary disease, unspecified COPD type (CMS/HCC) Need for immunization against influenza Need for prophylactic vaccination and inoculation against influenza Primary hypertension ([facility]/HCC) Unspecified essential hypertension documented in this encounter [facility] HealthcareEvaluation note* Diagnosis Primary hypertension (CMS/HCC)- Primary Unspecified essential hypertension PAF (paroxysmal atrial fibrillation) ([facility]/HCC) Atrial fibrillation Stage 3a chronic kidney disease (HCC) ([facility]/HCC) Type 2 diabetes mellitus with stage 3a chronic kidney disease, with long-term current use of insulin (HCC) ([facility]/HCC) Mixed hyperlipidemia ([facility]/HCC) Mixed hyperlipidemia Chronic obstructive pulmonary disease, unspecified COPD type ([facility]/HCC) Gastroesophageal reflux disease without esophagitis Esophageal reflux Type 2 diabetes mellitus without complications ([facility]) documented in this encounter [facility] HealthcareEvaluation note* Diagnosis Anemia due to chronic blood loss- Primary 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, with long-term current use of insulin (HCC) ([facility]/HCC) Mixed hyperlipidemia ([facility]/HCC) Mixed hyperlipidemia CLL (chronic lymphocytic leukemia) ([facility]) Chronic lymphoid leukemia, without mention of having achieved remission Primary hypertension ([facility]/HCC) Unspecified essential hypertension Gastroesophageal reflux disease without esophagitis Esophageal reflux Encounter for Medicare annual wellness exam Screening mammogram for breast cancer Primary hypertension ([facility]/HCC)- Primary Unspecified essential hypertension PAF (paroxysmal atrial fibrillation) ([facility]) Atrial fibrillation Stage 3a chronic kidney disease (HCC) ([facility]) Type 2 diabetes mellitus with stage 3a chronic kidney disease, with long-term current use of insulin (HCC) ([facility]) Type 2 diabetes mellitus with diabetic autonomic (poly)neuropathy ([facility]/HCC) Postural urinary incontinence Primary hypertension ([facility]/HCC)- Primary Unspecified essential hypertension PAF (paroxysmal atrial fibrillation) ([facility]HCC) Atrial fibrillation Stage 3a chronic kidney disease (HCC) ([facility]) Type 2 diabetes mellitus with stage 3a chronic kidney disease, with long-term current use of insulin (HCC) ([facility]/HCC) Mixed hyperlipidemia ([facility]/HCC) Mixed hyperlipidemia Chronic obstructive pulmonary disease, unspecified COPD type ([facility]/HCC) Gastroesophageal reflux disease without esophagitis Esophageal reflux Type 2 diabetes mellitus without complications ([facility]) Type 2 diabetes mellitus with stage 3a chronic kidney disease, with long-term current use of insulin (HCC) ([facility])- Primary Type 2 diabetes mellitus with diabetic [...] Surgical History choliectomy Hospitalization History listed above [facility] Other Hospital course Narrative No data available for this section [facility] Discharge instructions No data available for this section [facility] progress note No data available for this section [facility] reason for referral (narrative)* Consultation (Routine) - Authorized Specialty Diagnoses / Procedures Referred By Ly infante Referred To Contact Podiatry Diagnoses Type 2 diabetes mellitus with stage 3a chronic kidney disease, with long-term current use of insulin (HCC) ([facility]) Procedures AR OFFICE/OUTPATIENT NEW HIGH MDM 60 MINUTES Tj Ramirez NP [address] [place] [phone] Ammon Khanna DPM [address] [place] [address] Referral ID Status Reason Start Date Expiration Date Visits Requested Visits Authorized [id number] Authorized Specialty Services Required 05/03/2024 10/30/2024 1 [...] PER 1 MG Christi Fink MD [address] [place] [address] Jasiel Treat [address] [place] [address] Referral ID Status Reason Start Date Expiration Date V isits Requested Visits Authorized [id number] Authorized 04/03/2022 09/12/2022 99 99 Reason Comments Appointment Confirmation Reason Comments Critical Results Glucose Reason Comments Hypertension Reason Comments Diabetes NEW REF ONLY Specialty Diagnoses / Procedures Referred By Contac t Referred To Contact Endocrinology Diagnoses Type 2 diabetes mellitus with diabetic autonomic (poly)neuropathy (CMS/HCC) Procedures AR OFFICE/OUTPATIENT NEW HIGH MDM Tj Ramirez, [employer] [address] [place] [address] Phone: tel: fax: Christopher Garrett MD [address], [address] [place] [address] Phone: tel: fax: Referral ID Status Reason Start Date Expiration Date V isits Requested Visits Authorized [id number] Closed Specialty Services Required 08/01/2024 01/28/2025 1 [...] any alcohol or drug abuse patient.[facility] the event this information is protected by the Federal Confidentiality of Alcohol and Drug Abuse Patient Records regulations: The Federal rules restrict any use of the information to criminally investigate or prosecute any alcohol or drug abuse patient.[facility] the event this information is protected by the Federal Confidentiality of Alcohol and Drug Abuse Patient Records regulations: The Federal rules restrict any use of the information to criminally investigate or prosecute any alcohol or drug abuse patient.[facility] the event this information is protected by the Federal Confidentiality of Alcohol and Drug Abuse Patient Records regulations: The Federal rules restrict any use of the information to criminally investigate or prosecute any alcohol or drug abuse patient.[facility] the event this information is protected by the Federal Confidentiality of Alcohol and Drug Abuse Patient Records regulations: The Federal rules restrict any use of the information to criminally investigate or prosecute any alcohol or drug abuse patient.[facility] Hospital[facility] the event this information is protected by the Federal Confidentiality of Alcohol and Drug Abuse Patient Records regulations: The Federal rules restrict any use of the information to criminally investigate or prosecute any alcohol or drug abuse patient.[facility] Hospital[facility] the event this information is protected by the Federal Confidentiality of Alcohol and Drug Abuse Patient Records regulations: The Federal rules restrict any use of the information to criminally investigate or prosecute any alcohol or drug abuse patient.[facility] Care Teams (unrecognized sec tion and content) Security Consultant Relationship Specialty Start Date End Date Shaikh Sparks MD [address] [place] [address] PCP - General Primary Care 04/14/22 Security Consultant Relationship Specialty Start Date End Date Demetrio Joseph PCP - General Family Practice 03/09/16 04/13/22 Shaikh Sparks MD [address] [place] [address] PCP - General Primary Care 04/14/22 Security Consultant Relationship Specialty Start Date End Date Shaikh Sparks MD [address] [place] [place] [address] PCP - General Primary Care 04/14/22 Security Consultant Relationship Specialty Start Date End Date Shaikh Sparks MD [address] [place] [address] PCP - General Primary Care 04/14/22 Security Consultant Relationship Specialty Start Date End Date Shaikh Sparks MD [address] [place] [address] PCP - General Primary Care 04/14/22 Security Consultant Relationship Specialty Start Date End Date Shaikh Sparks MD [address] [place] [address] PCP - General Primary Care 04/14/22 Security Consultant Relationship Specialty Start Date End Date Shaikh Sparks MD [address] [place] [address] PCP - General Primary Care 04/14/22 Team Status: Inactive Member Role Status Dates Hood Patel MD Attending Provider Active Shaikh Clare MD Primary Care Provider Active Team Status: Active Member Role Status Dates Shaikh Clare MD Primary Care Provider Active Security Consultant Relationship Specialty Start Date End Date Estuardo Sanchez MD [address] [place] [address] PCP - General Family Medicine 04/18/24 Tj Ramirez NP [address] [place] [address] Nurse Practitioner Family Medicine 04/18/24 Security Consultant Relationship Specialty Start Date End Date Estuardo Sanchez MD [address] [place] [address] PCP - General Family Medicine 04/18/24 Tj Ramirez NP [address] [place] [address] Nurse Practitioner Family Medicine 04/18/24 Security Consultant Relationship Specialty Start Date End Date Estuardo Sanchez MD [address] [place] [address] PCP - General Family Medicine 04/18/24 Tj Ramirez NP [address] [place] [address] Nurse Practitioner Family Medicine 04/18/24 Security Consultant Relationship Specialty Start Date End Date Estuardo Sanchez MD [address] [place] [address] PCP - General Family Medicine 04/18/24 Tj Ramirez NP [address] [place] [address] Nurse Practitioner Family Medicine 04/18/24 Security Consultant Relationship Specialty Start Date End Date Estuardo Sanchez MD [address] [place] [address] PCP - General Family Medicine 04/18/24 Tj Ramirez NP [address] [place] [address] Nurse Practitioner Family Medicine 04/18/24 Security Consultant Relationship Specialty Start Date End Date Estuardo Sanchez MD [address] [place] [phone] PCP - General Family Medicine 04/18/24 Tj Ramirez NP [address] [place] [address] Nurse Practitioner Family Medicine 04/18/24 Security Consultant Relationship Specialty Start Date End Date Estuardo Sanchez MD [address] [place] [address] PCP - General Family Medicine 04/18/24 Tj Ramirez NP [address] [place] [address] Nurse Practitioner Family Medicine 04/18/24 Security Consultant Relationship Specialty Start Date End Date Estuardo Sanchez MD [address] [place] [address] PCP - General Family Medicine 04/18/24 Tj Ramirez NP [address] [place] [address] Nurse Practitioner Family Medicine 04/18/24 Security Consultant Relationship Specialty Start Date End Date Estuardo Sanchez MD [address] [place] [phone] PCP - General Family Medicine 04/18/24 Tj Ramirez NP [address] [place] [address] Nurse Practitioner Family Medicine 04/18/24 Security Consultant Relationship Specialty Start Date End Date Estuardo Sanchez MD [address] [place] [address] PCP - General Family Medicine 04/18/24 Tj Ramirez NP [address] [place] [address] Nurse Practitioner Family Medicine 04/18/24 Security Consultant Relationship Specialty Start Date End Date Estuardo Sanchez MD [address] [place] [address] PCP - General Family Medicine 04/18/24 Shaikh Sparks MD [address] [place] [address] PCP - Carlos MAX 08/13/24 Tj Ramirez NP [address] [place] [address] Nurse Practitioner Family Medicine 04/18/24 Security Consultant Relationship Specialty Start Date End Date Estuardo Sanchez MD [address] [place] [phone] PCP - General Family Medicine 04/18/24 Shaikh Sparks MD [address] [place] [address] PCP - Carlos MAX 08/13/24 Tj Ramirez NP [address] [place] [address] Nurse Practitioner Family Medicine 04/18/24 Security Consultant Relationship Specialty Start Date End Date Estuardo Sanchez MD [address] [place] [address] PCP - General Family Medicine 04/18/24 Tj Ramirez NP [address] [place] [address] Nurse Practitioner Family Medicine 04/18/24 Security Consultant Relationship Specialty Start Date End Date Estuardo Sanchez MD [address] [place] [address] PCP - General Family Medicine 04/18/24 Tj Ramirez NP [address] [place] [address] Nurse Practitioner Family Medicine 04/18/24 INFORMATION SOURCE (unrecogn ized section and content) DATE CREATED AUTHOR 05/14/2022 [facility] DATE CREATED AUTHOR AUTHOR'S ORGANIZ ATION 05/16/2022 [facility] DATE CREATED AUTHOR AUTHOR'S ORGANIZ ATION 07/07/2022 Lyle Heranndez [facility] DATE CREATED AUTHOR AUTHOR'S ORGANIZ ATION 03/03/2024 Solis Jeremías [facility] DATE CREATED AUTHOR AUTHOR'S ORGANIZ ATION 05/10/2024 [facility] DATE CREATED AUTHOR AUTHOR'S ORGANIZ ATION 05/11/2024 [facility] DATE CREATED AUTHOR AUTHOR'S ORGANIZ ATION 07/15/2024 [facility] DATE CREATED AUTHOR AUTHOR'S ORGANIZ ATION 08/07/2024 [facility] DATE CREATED AUTHOR AUTHOR'S ORGANIZ ATION 11/04/2024 [facility] EPIC FOR RECORDS PERTAINING TO [...] BE BASED ON THE PRIMARY CLINICAL RECORDS. [facility] [employer] [facility]. provides no warranty or guarantee of the accuracy or completeness of information in this document.
[2024-11-07] MEDS: OSELTAMIVIR PHOSPHATE 75 MG CAPSULE PO (03:22)
[2024-11-07] MEDS: APIXABAN 5 MG TABLET PO ×3 (03:22→22:00)
[2024-11-07] MEDS: ATORVASTATIN CALCIUM 20 MG TABLET PO ×2 (03:22→22:00)
[2024-11-07 04:11] LABS: Lactate/Lactic Acid 1.8 mmol/L (0.4-2.0)
[2024-11-07] MEDS: METHYLPREDNISOLONE SOD SUCC PF 40 MG/ML VIAL IVP ×3 (06:09→18:15)
[2024-11-07 07:04] LABS: Alanine Aminotransferase 79 U/L (14-59); Albumin Globulin Ratio 0.9; Albumin Level 2.9 g/dL (3.4-5.0); Alkaline Phosphatase 163 U/L (46-116); Anion Gap 20.8; Aspartate Amino Transferase 37 U/L (15-37); BUN Creatinine Ratio 19.9; Bilirubin Total 0.5 mg/dL (0.2-1.0); Calcium 8.4 mg/dL (8.5-10.1); Carbon Dioxide 19.5 mmol/L (21.0-32.0); Chloride 102 mmol/L (98-107); Estimated GFR (African America 38 (>=60 mL/min/1.73m^2); Estimated GFR (Non-African Ame 31 (>=60 mL/min/1.73m^2); Globulin 3.1 g/dL; Glucose 220 mg/dL (74-106); Magnesium 2.9 mg/dL (1.8-2.4); Potassium 5.3 mmol/L (3.5-5.1); Sodium 137 mmol/L (136-145)
[2024-11-07 08:04] LABS: Glucometer 243 mg/dL (74-106)
[2024-11-07] MEDS: INSULIN ASPART 300 UNIT/3 ML PEN SUBQ ×4 (08:27→22:04)
[2024-11-07] MEDS: LISINOPRIL 5 MG TABLET PO (08:29)
[2024-11-07] MEDS: OMEPRAZOLE 40 MG CAPSULE.DR PO (08:29)
[2024-11-07] MEDS: DILTIAZEM HCL 240 MG CAP.ER.24H PO (09:32)
--- NOTE | 2024-11-07 09:39 | PM.HP ---
HPI H&P: HPI History of Present Illness Chief complaint: COPD FLU A Narrative: Patient is a 73 y.o white female with extensive past medical history of CLL, Factor IV, Insulin dep type 2 diabetes, HTN, GERD, Afib (takes eliquis), HLD, COPD, Malnutrition who presented to the ER yesterday with cold like symptoms, fever, chills, cough, body aches, fatigue. Patient tested positive for Influenza A. Chest X-ray was negative for acute pneumonia. Hypoxia 88% and was placed on 2L NC with good recovery. She was given solumedrol and breathing treatment and was admitted to the hospitalist service for further plan of care. ER findings: WBC's 8.3, K 5.3, lactate 2.3, Trop 18, probnp 514, Cr 1.61 This morning says she is feeling less short of breath, she had nausea/vomiting and diarrhea but has subsided. Opioid HPI Opioid Management Most Recent Pain and Opioid Data: Last Pain Scale 3 06/07/24 18:00 06/07/24 Last Pain Intensity 0 06/07/24 15:34 06/07/24 Last Pain Assessment 11/07/24 14:05 Last ORT Total Score 1 11/07/24 03:19 11/07/24 Last ORT Risk Category Low Risk 11/07/24 03:19 11/07/24 Review of Systems ROS Narrative ROS: a complete review of systems were reviewed with patient and are positive as below or listed in History of Chief Complaint. General: fever, chills, night sweats Head: no headache, trauma, visual changes, nausea or vomiting Skin: no reported rashes, itching or sores Eyes: no blurriness of vision Ears: no reported hearing loss, vertigo, earache, or tinnitus Throat: no sore throat, hoarseness, swelling of neck, or tongue pain Heart: no chest pain Lungs: shortness of breath and cough GI: diarrhea and vomiting/nausea Urinary: no urinary urgency, frequency or pain Neuro: no numbness or tingling HEM: no bleeding issues or bruising ENDO: no thyroid problems Psych: no anxiety or depression [facility] Medical History (Updated 11/07/24 @ 14:20 by Kenyatta Sullivan, DO) Moderate protein malnutrition ?E44.0 - Moderate protein-calorie malnutrition (ICD-10) Oropharyngeal dysphagia ?R13.12 - Dysphagia, oropharyngeal phase (ICD-10) Colitis ?K52.9 - Noninfective gastroenteritis and colitis, unspecified (ICD-10) HLD (hyperlipidemia) ?E78.5 - Hyperlipidemia, unspecified (ICD-10) Chronic diastolic heart failure ?I50.32 - Chronic diastolic (congestive) heart failure (ICD-10) Paroxysmal A-fib ?I48.0 - Paroxysmal atrial fibrillation (ICD-10) TIA (transient ischemic attack) ?G45.9 - Transient cerebral ischemic attack, unspecified (ICD-10) CLL (chronic lymphocytic leukemia) ?C91.10 - Chronic lymphocytic leukemia of B-cell type not having achieved remission (ICD-10) Factor 5 Leiden mutation, heterozygous ?D68.51 - Activated protein C resistance (ICD-10) Diabetes ?E11.9 - Type 2 diabetes mellitus without complications (ICD-10) High cholesterol ?E78.00 - Pure hypercholesterolemia, unspecified (ICD-10) Overactive bladder ?N32.81 - Overactive bladder (ICD-10) HTN (hypertension) ?I10 - Essential (primary) hypertension (ICD-10) Surgical History Cataracts, both eyes ?H26.9 - Unspecified cataract (ICD-10) History of cholecystectomy ?Z90.49 - Acquired absence of other specified parts of digestive tract (ICD-10) H/O: hysterectomy ?Z90.710 - Acquired absence of both cervix and uterus (ICD-10) Family History Father Family history of CHF (congestive heart failure) Mother Family history of cancer Family history of hypertension Social History Within the past year, how often did you have a drink containing alcohol: never Score interpretation: A score less than 3 is consistent with normal alcohol consumption. Smoking status: Never smoker Non-prescribed substance use: denies use Previous occupational history: disabled Highest level of school completed/degree received: high school graduate Are you now , , , , never or living with a partner: In a typical week, how many times do you talk on the telephone with family, friends, or neighbors: 3 or more times per week How often do you get together with friends or relatives: 3 or more times per week Little interest or pleasure in doing things: not at all Feeling down, depressed, or hopeless: not at all Feel stressed/tense/nervous/anxious/difficulty sleeping: not at all Do you think of yourself as: decline to answer Gender Identity: female Meds Home Medications and Allergies Home Medications ?Medication ?Instructions ?Recorded ?Confirmed ?Type albuterol sulfate 90 mcg/actuation 2 inh inhalation Q6H PRN shortness 06/03/24 11/06/24 History aerosol inhaler of breath or wheezing apixaban 5 mg tablet (Eliquis) 5 mg PO Q12H 06/03/24 11/06/24 History atorvastatin 20 mg tablet 20 mg PO .QD 06/03/24 11/06/24 History dapagliflozin propanediol 10 mg 10 mg PO .QD 06/03/24 11/06/24 History tablet (Farxiga) diltiazem HCl 240 mg 240 mg PO Q24H 06/03/24 11/06/24 History capsule,extended release 24 hr dulaglutide 1.5 mg/0.5 mL 1.5 mg subcut .WEEKLY 06/03/24 11/06/24 History [facility] lisinopril 5 mg tablet 5 mg PO .QD 06/03/24 11/06/24 History metoprolol tartrate 50 mg tablet 50 mg PO Q12H 06/03/24 11/06/24 History pantoprazole 40 mg tablet,delayed 40 mg PO .Q24 06/03/24 11/06/24 History release trazodone 50 mg tablet 50 mg PO .QHS 06/03/24 11/06/24 History trospium 20 mg tablet 20 mg PO Q12H 06/03/24 11/06/24 History ergocalciferol (vitamin D2) 1,250 1,250 mcg PO QWEEK 11/06/24 11/07/24 History mcg (50,000 unit) capsule glipizide 5 mg tablet 5 mg PO .bidac 11/06/24 11/07/24 History insulin degludec 100 unit/mL (3 10 unit subcut .qhs 11/06/24 11/07/24 History mL) subcutaneous pen (Tresiba FlexTouch U-100 insulin) insulin lispro 100 unit/mL subcut 11/06/24 History subcutaneous pen lancets 33 gauge (OneTouch Delica 11/06/24 11/06/24 History Plus Lancet) pen needle, diabetic 31 gauge x 11/06/24 11/06/24 History 5/16 (BD Ultra-Fine Short Pen Needle) Allergies Allergy/AdvReac Type Severity Reaction Status Date / Time acetaminophen (From Percocet) Allergy Agitated Verified 11/06/24 23:44 oxycodone (From Percocet) Allergy Agitated Verified 11/06/24 23:44 Exam Narrative Exam Narrative: General: Patient is alert, and oriented to person, place and time with normal affect, proper hygiene Skin: no visible rashes, or ulcers Head: atraumatic, acephalic Eyes: PERRLA, no nystagmus present, conjunctiva clear, no scleral icterus Ears: normal gross auditory acuity Heart: Normal rate and rhythm, no murmurs/rubs/gallops Lungs: audible wheezes Abdomen: Normal audible bowel sounds, no distension, No palpable masses, no organomegaly, no rebound/guarding/ or rigidity Musculoskeletal: no swelling bilateral lower extremities Neuro: CN II-X grossly intact Constitutional Vital Signs, click to edit/add: Last Vital Signs Temp 98.1 F 11/07/24 08:20 Pulse 114 H 11/07/24 08:20 Resp 18 11/07/24 08:20 BP 131/64 11/07/24 08:29 Pulse Ox 98 11/07/24 08:20 O2 Del Method Nasal Cannula 11/07/24 08:20 O2 Flow Rate 2 11/07/24 08:20 Results Labs Labs: Short CBC 11/07/24 Range/Units 00:03 WBC 8.3 (4.0-11.0) 10^3/uL Hgb 12.9 (12.0-16.0) g/dL Hct 40.5 (36.0-48.0) % Plt Count 107 L (150-450) 10^3/uL BMP 11/07/24 11/07/24 00:03 06:24 Sodium 139 137 Potassium 4.0 5.3 H Chloride 105 102 Carbon Dioxide 21.1 19.5 L BUN 24.0 H 32.0 H Creatinine 1.33 H 1.61 H Glucose 127 H 220 H Calcium 8.7 8.4 L Liver Function 11/07/24 11/07/24 Range/Units 00:03 06:24 Total Bilirubin 0.5 0.5 (0.2-1.0) mg/dL AST 43 H 37 (15-37) U/L ALT 84 H 79 H (14-59) U/L Alkaline Phosphatase 170 H 163 H (46-116) U/L Albumin 3.0 L 2.9 L (3.4-5.0) g/dL Assessment and Plan Assessment and Plan (1) COPD with acute exacerbation: Assessment and Plan: continue IV solu-medrol. Duonebs, OPep. (2) Influenza A: Assessment and Plan: continue Tamiflu for 5 days (3) Acute respiratory failure with hypoxia: Assessment and Plan: sats 88% and was placed on 2 L NC (4) SHIRA (acute kidney injury): Assessment and Plan: start LR @50 cc/hr, baseline Cr is 0.82 (5) HLD (hyperlipidemia): Assessment and Plan: continue atorvastatin Qualifiers: Hyperlipidemia type: unspecified Qualified Code(s): E78.5 - Hyperlipidemia, unspecified (6) Chronic diastolic heart failure: Assessment and Plan: appears in no acute exacerbation, continue lisinopril and metoprolol (7) Paroxysmal A-fib: Assessment and Plan: rate controlled on the metoprolol and dilt, continue eliquis (8) CLL (chronic lymphocytic leukemia): Assessment and Plan: puts patient in immunocompromised state which has the potential for rapid decompensation with flu (9) Factor 5 Leiden mutation, heterozygous: Assessment and Plan: continue eliquis (10) Diabetes: Assessment and Plan: continue long acting insulin and SSI as needed. Qualifiers: Diabetes mellitus complication detail: with polyneuropathy Diabetes mellitus complication status: with neurologic complications Diabetes mellitus vermin exterminator insulin use: with longterm use Diabetes mellitus type: type 2 Qualified Code(s): E11.42 - Type 2 diabetes mellitus with diabetic polyneuropathy; Z79.4 - watermaster (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 insulin (11) Overactive bladder: Assessment and Plan: continue Trospium (12) HTN (hypertension): Assessment and Plan: stable, continue home meds Qualifiers: Hypertension type: primary hypertension Qualified Code(s): I10 - Essential (primary) hypertension Plan Patient is a full code continue Eliquis Patient is inpatient status and is expected to cross 2 midnights for treatment of her acute COPD exacerbation related to INfluenza A
[2024-11-07] MEDS: GLIPIZIDE 5 MG TABLET PO ×2 (10:15→16:29)
[2024-11-07] MEDS: BENZOCAINE/MENTHOL 1 LOZENGE BOX PO (11:52)
[2024-11-07] MEDS: LACTATED RINGER'S SOLUTION 1,000 ML 75 ML IV (11:52)
[2024-11-07 11:53] LABS: Glucometer 361 mg/dL (74-106)
[2024-11-07] MEDS: IPRATROPIUM/ALBUTEROL SULFATE 3 ML AMPUL.NEB IH ×3 (12:02→23:00)
--- NOTE | 2024-11-07 13:05 | CM.NOTE ---
Rounds made with Dr. Sullivan, discussed plan of care with pt. Pt will change to inpatient status. Pt remains tachycardic, will start IV fluids.
--- NOTE | 2024-11-07 14:09 | SWNOTE1 ---
Important Message from Medicare reviewed and discussed with patient. Pt. verbalized understanding and signed the form. Original given to patient and copy placed in patient?s chart.
--- NOTE | 2024-11-07 14:09 | SWNOTE1 ---
SW met with pt to discuss dc needs. Pt lives at home with her 2 sons. One son works 12 hour shifts and her other son is in his apartment in basement. Pt voiced she does always use her walker at home. Pt voiced she is doing well and makes her own food. SW and pt spoke about HH services as she was discharged last time with HH. Pt does not feel she needs HH at this time. SW to check back tomorrow. SW did advise if she gets home and decides she wants HH services, her PCP can set it up from office. She voiced understanding. SW to follow as needed.
[2024-11-07 16:32] LABS: Glucometer 412 mg/dL (74-106)
[2024-11-07] MEDS: TRAZODONE HCL 50 MG TABLET PO (22:00)
[2024-11-07] MEDS: METOPROLOL TARTRATE 50 MG TABLET PO (22:00)
[2024-11-07] MEDS: OSELTAMIVIR PHOSPHATE 30 MG CAPSULE PO (22:00)
[2024-11-07 22:05] LABS: Glucometer 378 mg/dL (74-106)
[2024-11-07] MEDS: INSULIN GLARGINE 300 UNIT/3 ML INSULN.PEN 10 UNIT SQ (22:05)
[2024-11-08] VITALS (24 sets, daily range): BP systolic 92–159; BP diastolic 54–72; PULSE 70–101; TEMP 36.4–37.2; O2SAT 91–99
[2024-11-08] MEDS: METHYLPREDNISOLONE SOD SUCC PF 40 MG/ML VIAL IVP ×3 (01:58→13:23)
[2024-11-08] MEDS: LACTATED RINGER'S SOLUTION 1,000 ML 75 ML IV ×2 (02:01→15:16)
[2024-11-08] MEDS: IPRATROPIUM/ALBUTEROL SULFATE 3 ML AMPUL.NEB IH ×3 (05:16→22:17)
[2024-11-08] MEDS: OMEPRAZOLE 40 MG CAPSULE.DR PO (06:10)
[2024-11-08 06:37] LABS: Alanine Aminotransferase 48 U/L (14-59); Albumin Level 2.7 g/dL (3.4-5.0); Alkaline Phosphatase 128 U/L (46-116); Anion Gap 13.6; Aspartate Amino Transferase 20 U/L (15-37); BUN Creatinine Ratio 31.1; Bilirubin Total 0.2 mg/dL (0.2-1.0); Calcium 8.6 mg/dL (8.5-10.1); Carbon Dioxide 22.9 mmol/L (21.0-32.0); Chloride 108 mmol/L (98-107); Estimated GFR (African America 48 (>=60 mL/min/1.73m^2); Estimated GFR (Non-African Ame 39 (>=60 mL/min/1.73m^2); Globulin 2.8 g/dL; Glucose 267 mg/dL (74-106); Magnesium 2.8 mg/dL (1.8-2.4); Potassium 4.5 mmol/L (3.5-5.1); Sodium 140 mmol/L (136-145); Total Protein 5.5 g/dL (6.4-8.2)
--- NOTE | 2024-11-08 08:09 | P.PN_ITS ---
Progress Note: Subjective Subjective Interval history: Patient feeling better but still short of breath with ambulation. Increased cough today. No fevers or chills. Exam Narrative Exam Narrative: General: Patient is alert, and oriented to person, place and time with normal affect, proper hygiene Skin: no visible rashes, or ulcers Head: atraumatic, acephalic Eyes: PERRLA, no nystagmus present, conjunctiva clear, no scleral icterus Ears: normal gross auditory acuity Heart: Normal rate and rhythm, no murmurs/rubs/gallops Lungs: audible wheezes Abdomen: Normal audible bowel sounds, no distension, No palpable masses, no organomegaly, no rebound/guarding/ or rigidity Musculoskeletal: no swelling bilateral lower extremities Neuro: CN II-X grossly intact Constitutional Vital Signs, click to edit/add: Last Vital Signs Temp 99 F 11/08/24 07:31 Pulse 95 H 11/08/24 07:31 Resp 15 11/08/24 07:31 BP 92/54 11/08/24 07:31 Pulse Ox 92 L 11/08/24 07:31 O2 Del Method Room Air 11/08/24 07:31 O2 Flow Rate 2 11/07/24 11:52 Progress Note: Objective Labs Labs: BMP 11/08/24 06:04 Sodium 140 Potassium 4.5 Chloride 108 H Carbon Dioxide 22.9 BUN 41.0 H Creatinine 1.32 H Glucose 267 H Calcium 8.6 Liver Function 11/08/24 Range/Units 06:04 Total Bilirubin 0.2 (0.2-1.0) mg/dL AST 20 (15-37) U/L ALT 48 (14-59) U/L Alkaline Phosphatase 128 H (46-116) U/L Albumin 2.7 L (3.4-5.0) g/dL Progress Note: A&P Assessment and Plan (1) COPD with acute exacerbation: Assessment and Plan: continue IV solu-medrol. Jhony OPep (2) Influenza A: Assessment and Plan: continue Tamiflu for 5 days (3) Acute respiratory failure with hypoxia: Assessment and Plan: sats 88% and was placed on 2 L NC; back to room air (4) SHIRA (acute kidney injury): Assessment and Plan: start LR @50 cc/hr, baseline Cr is 0.82, down to 1.32 today (5) HLD (hyperlipidemia): Assessment and Plan: continue atorvastatin Qualifiers: Hyperlipidemia type: unspecified Qualified Code(s): E78.5 - Hyperlipidemia, unspecified (6) Chronic diastolic heart failure: Assessment and Plan: appears in no acute exacerbation, continue lisinopril and metoprolol (7) Paroxysmal A-fib: Assessment and Plan: rate controlled on the metoprolol and dilt, continue eliquis (8) CLL (chronic lymphocytic leukemia): Assessment and Plan: puts patient in immunocompromised state which has the potential for rapid decompensation with flu (9) Factor 5 Leiden mutation, heterozygous: Assessment and Plan: continue eliquis (10) Diabetes: Assessment and Plan: continue long acting insulin and SSI as needed. Qualifiers: Diabetes mellitus complication detail: with polyneuropathy Diabetes mellitus complication status: with neurologic complications Diabetes mellitus terminal supervisor insulin use: with terminal supervisor use Diabetes mellitus type: type 2 Qualified Code(s): E11.42 - Type 2 diabetes mellitus with diabetic poly neuropathy; Z79.4 - terminal gauger supervisor (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 insulin (11) Overactive bladder: Assessment and Plan: continue Trospium (12) HTN (hypertension): Assessment and Plan: stable, continue home meds Qualifiers: Hypertension type: primary hypertension Qualified Code(s): I10 - Essential (primary) hypertension Plan Patient is a full code continue Eliquis Hopeful discharge home tomorrow
[2024-11-08] MEDS: ACETAMINOPHEN 325 MG TABLET 650 MG PO (08:13)
[2024-11-08] MEDS: GLIPIZIDE 5 MG TABLET PO ×2 (08:13→16:50)
[2024-11-08] MEDS: APIXABAN 5 MG TABLET PO ×2 (08:13→21:24)
[2024-11-08] MEDS: INSULIN ASPART 300 UNIT/3 ML PEN SUBQ ×4 (08:16→21:25)
[2024-11-08 08:18] LABS: Glucometer 296 mg/dL (74-106)
[2024-11-08] MEDS: DILTIAZEM HCL 240 MG CAP.ER.24H PO (08:20)
[2024-11-08] MEDS: LISINOPRIL 5 MG TABLET PO (08:21)
[2024-11-08] MEDS: METOPROLOL TARTRATE 50 MG TABLET PO ×2 (08:21→21:24)
[2024-11-08 11:04] LABS: Glucometer 366 mg/dL (74-106)
--- NOTE | 2024-11-08 12:31 | CM.NOTE ---
Rounds made with Dr. uSllivan, no discharge today. Pt continues with SOB on exertion.
[2024-11-08 16:56] LABS: Glucometer 350 mg/dL (74-106)
[2024-11-08] MEDS: METHYLPREDNISOLONE SOD SUCC PF 125 MG/2 ML VIAL 40 MG IVP (18:10)
[2024-11-08 20:32] LABS: Glucometer 254 mg/dL (74-106)
[2024-11-08] MEDS: TRAZODONE HCL 50 MG TABLET PO (21:24)
[2024-11-08] MEDS: ATORVASTATIN CALCIUM 20 MG TABLET PO (21:24)
[2024-11-08] MEDS: OSELTAMIVIR PHOSPHATE 30 MG CAPSULE PO (21:24)
[2024-11-08] MEDS: INSULIN GLARGINE 300 UNIT/3 ML INSULN.PEN 15 UNIT SQ (21:25)
[2024-11-09] VITALS (9 sets, daily range): BP systolic 124–141; BP diastolic 68–71; PULSE 72–90; TEMP 36.4–36.9; O2SAT 94–97
[2024-11-09] MEDS: METHYLPREDNISOLONE SOD SUCC PF 125 MG/2 ML VIAL 40 MG IVP ×2 (02:24→06:07)
[2024-11-09] MEDS: IPRATROPIUM/ALBUTEROL SULFATE 3 ML AMPUL.NEB IH ×2 (04:35→10:16)
[2024-11-09] MEDS: OMEPRAZOLE 40 MG CAPSULE.DR PO (06:07)
[2024-11-09] MEDS: LACTATED RINGER'S SOLUTION 1,000 ML 75 ML IV (06:07)
[2024-11-09 06:37] LABS: Alanine Aminotransferase 45 U/L (14-59); Albumin Level 2.5 g/dL (3.4-5.0); Alkaline Phosphatase 110 U/L (46-116); Anion Gap 13.9; Aspartate Amino Transferase 22 U/L (15-37); BUN Creatinine Ratio 32.5; Bilirubin Total 0.2 mg/dL (0.2-1.0); Calcium 8.4 mg/dL (8.5-10.1); Carbon Dioxide 22.6 mmol/L (21.0-32.0); Chloride 110 mmol/L (98-107); Estimated GFR (African America 50 (>=60 mL/min/1.73m^2); Estimated GFR (Non-African Ame 42 (>=60 mL/min/1.73m^2); Globulin 2.6 g/dL; Glucose 258 mg/dL (74-106); Magnesium 2.4 mg/dL (1.8-2.4); Potassium 4.5 mmol/L (3.5-5.1); Sodium 142 mmol/L (136-145); Total Protein 5.1 g/dL (6.4-8.2)
[2024-11-09 07:44] LABS: Glucometer 265 mg/dL (74-106)
[2024-11-09] MEDS: LISINOPRIL 5 MG TABLET PO (08:00)
[2024-11-09] MEDS: GUAIFENESIN 200 MG/DEXTROMETHORPHAN 20 MG 10 ML UNIT DOSE CUP PO (08:00)
[2024-11-09] MEDS: GLIPIZIDE 5 MG TABLET PO (08:00)
[2024-11-09] MEDS: APIXABAN 5 MG TABLET PO (08:00)
[2024-11-09] MEDS: DILTIAZEM HCL 240 MG CAP.ER.24H PO (08:00)
[2024-11-09] MEDS: METOPROLOL TARTRATE 50 MG TABLET PO (08:00)
[2024-11-09] MEDS: INSULIN ASPART 300 UNIT/3 ML PEN SUBQ ×2 (08:01→11:44)
--- NOTE | 2024-11-09 09:10 | PM.DS1 ---
DS: Providers Provider Date of admission: 11/07/24 14:21 Primary care physician: DELFINA CURRY Attending physician on admission: Kenyatta Sullivan Consults: 11/07/24 Consult to Dietitian Routine Reason for consultation: poor appetite Occupational Therapy Eval and Treat Routine Reason for consultation: weakness Physical Therapy Eval and Treat Routine Reason for consultation: weakness Discharging clinician: Kenyatta Sullivan DS: Diagnosis Discharge Diagnosis (1) COPD with acute exacerbation: (2) Influenza A: (3) Acute respiratory failure with hypoxia: (4) SHIRA (acute kidney injury): (5) HLD (hyperlipidemia): Qualifiers: Hyperlipidemia type: unspecified Qualified Code(s): E78.5 - Hyperlipidemia, unspecified (6) Chronic diastolic heart failure: (7) Paroxysmal A-fib: (8) CLL (chronic lymphocytic leukemia): (9) Factor 5 Leiden mutation, heterozygous: (10) Diabetes: Qualifiers: Diabetes mellitus complication detail: with polyneuropathy Diabetes mellitus complication status: with neurologic complications Diabetes mellitus long term care pharmacist insulin use: with long term care pharmacist use Diabetes mellitus type: type 2 Qualified Code(s): E11.42 - Type 2 diabetes mellitus with diabetic polyneuropathy; Z79.4 - intermediate (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 insulin (11) Overactive bladder: (12) HTN (hypertension): Qualifiers: Hypertension type: primary hypertension Qualified Code(s): I10 - Essential (primary) hypertension DS: Summary Hospital Course Hospital Course: Patient is a 73 y.o white female with extensive past medical history of CLL, Factor IV, Insulin dep type 2 diabetes, HTN, GERD, Afib (takes eliquis), HLD, COPD, Malnutrition who presented to the ER on 11/07/24 with cold like symptoms, fever, chills, cough, body aches, fatigue. Patient tested positive for Influenza A. Chest X-ray was negative for acute pneumonia. Hypoxia 88% and was placed on 2L NC with good recovery. She was given solumedrol and breathing treatment and was admitted to the hospitalist service for further plan of care. ER findings: WBC's 8.3, K 5.3, lactate 2.3, Trop 18, probnp 514, Cr 1.61. I placed patient on Tamiflu for 5 days, she will complete 3 more days. Patient has remained Afebrile. She was continued on IV solu-medrol. Duonebs, OPep. She was no longer requiring oxygen at the time of discharge. I will treat her with prednisone 40mg daily x 7 days, I have instructed her to increase Tresiba to 15 units at night time while she is taking steroids. Monitor sugars closely. She also has a nebulizer machine and instructed her to use her duonebs q6 hours for the next 2-3 days then just as she needs it. WBC's 8.3. Cr 1.26. She has close outpatient follow up with her PCP. She will be discharged home today in stable condition. Status at Discharge Functional status at discharge: independent ambulation Overall status at discharge: patient is back to baseline Time Spent with Patient Time attestation: Total time spent providing and/or coordinating discharge services: Time spent: greater than 30 minutes Exam Narrative Exam Narrative: General: Patient is alert, and oriented to person, place and time with normal affect, proper hygiene Skin: no visible rashes, or ulcers Head: atraumatic, acephalic Eyes: PERRLA, no nystagmus present, conjunctiva clear, no scleral icterus Ears: normal gross auditory acuity Heart: Normal rate and rhythm, no murmurs/rubs/gallops Lungs: slight audible wheezes Abdomen: Normal audible bowel sounds, no distension, No palpable masses, no organomegaly, no rebound/guarding/ or rigidity Musculoskeletal: no swelling bilateral lower extremities Neuro: CN II-X grossly intact Constitutional Vital Signs, click to edit/add: Last Vital Signs Temp 98.4 F 11/09/24 08:13 Pulse 87 11/09/24 08:13 Resp 18 11/09/24 08:13 BP 141/71 11/09/24 08:13 Pulse Ox 94 L 11/09/24 08:13 O2 Del Method Room Air 11/09/24 08:13 O2 Flow Rate 2 11/07/24 11:52 DS: Data Data Completed and Pending Labs on day of discharge: Labs from last 24 hours 11/09/24 11/09/24 11/08/24 07:40 05:59 20:21 Sodium 142 Potassium 4.5 Chloride 110 H Carbon Dioxide 22.6 Anion Gap 13.9 BUN 41.0 H Creatinine 1.26 H Est GFR ( Amer) 50 L Est GFR (Non-Af Amer) 42 L BUN/Creatinine Ratio 32.5 Glucose 258 H Calcium 8.4 L Magnesium 2.4 Total Bilirubin 0.2 AST 22 ALT 45 Alkaline Phosphatase 110 Total Protein 5.1 L Albumin 2.5 L Globulin 2.6 Albumin/Globulin Ratio 1.0 POC Glucose 265 H 254 H 11/08/24 11/08/24 16:53 11:03 Sodium Potassium Chloride Carbon Dioxide Anion Gap BUN Creatinine Est GFR ( Amer) Est GFR (Non-Af Amer) BUN/Creatinine Ratio Glucose Calcium Magnesium Total Bilirubin AST ALT Alkaline Phosphatase Total Protein Albumin Globulin Albumin/Globulin Ratio POC Glucose 350 H 366 H Discharge Plan Discharge Disposition: Home, Self-Care Condition: Good Discharge Medications: New ipratropium-albuterol 0.5 mg-3 mg(2.5 mg base)/3 mL Solution For Nebulization 3 ml inhalation Q6H PRN (Reason: Shortness Of Breath Or Wheezing) 30 Days Qty: 1 0RF Rx Instructions: dispense 1 box please oseltamivir 30 mg Capsule 30 mg PO Q24H 3 Days Qty: 3 0RF prednisone 20 mg tablet 20 mg PO BID 7 Days Qty: 14 0RF Continued Eliquis 5 mg tablet 5 mg PO Q12H Trulicity 1.5 mg/0.5 mL pen injector 1.5 mg SUBCUT .WEEKLY atorvastatin 20 mg tablet 20 mg PO .QD diltiazem HCl 240 mg capsule,extended release 24hr 240 mg PO Q24H dapagliflozin propanediol [Farxiga] 10 mg tablet 10 mg PO .QD lisinopril 5 mg tablet 5 mg PO .QD metoprolol tartrate 50 mg tablet 50 mg PO Q12H pantoprazole 40 mg tablet,delayed release (DR/EC) 40 mg PO .Q24 trazodone 50 mg tablet 50 mg PO .QHS trospium 20 mg tablet 20 mg PO Q12H albuterol sulfate 90 mcg/actuation HFA aerosol inhaler 2 inh inhalation Q6H PRN (Reason: shortness of breath or wheezing) ergocalciferol (vitamin D2) 1,250 mcg (50,000 unit) capsule 1,250 mcg PO QWEEK glipizide 5 mg tablet 5 mg PO .bidac insulin lispro 100 unit/mL insulin pen SUBCUT (DME) pen needle, diabetic [BD Ultra-Fine Short Pen Needle] 31 gauge x 5/16 needle MISCELLANEOUS (DME) lancets [OneTouch Delica Plus Lancet] 33 gauge misc MISCELLANEOUS Changed insulin degludec [Tresiba FlexTouch U-100] 100 unit/mL (3 mL) insulin pen 15 unit SUBCUT .qhs Qty: 0 0RF Activity: increase activity as tolerated Activity Detail: Please use nebulizer every 6 hours for the next 2-3 days then just as needed. Please increase nightly Tresiba dose to 15 units for the 1 week while taking the prednisone Diet: advance to your usual diet Print Language: Turkmen Forms: Portal Instructions Follow Up Appointments: November 16 @ 10am with Alondra James NP (Delfina Curry no longer there) [phone]
[2024-11-09 11:42] LABS: Glucometer 401 mg/dL (74-106)
--- NOTE | 2024-11-09 12:03 | CM.NOTE ---
Rounds made with Dr. Sullivan. Dr. Sullivan reviews plan of care. Plan for discharge today. Follow up with PCP in approx one week.
--- NOTE | 2024-11-10 10:22 | CM.DCFOLLOWU ---
1st attempt 11/10/24, no answer
--- NOTE | 2024-11-13 13:34 | CM.DCFOLLOWU ---
Re-admitted to hospital on 11/10/24
== END 2024-11-09 13:29 | disposition home or self-care (01) | DRG 190 ==
LOC: ER 11-07 02:36 → MS 11-07 02:59
PROVIDERS: Registered Nurse; Admitting Provider Family Medicine; Emergency Provider Emergency Medicine; Visit Provider Family Medicine
DX: J44.1 Chronic obstructive pulmonary disease with (acute) exacerbation (principal); J96.01 Acute respiratory failure with hypoxia; N17.9 Acute kidney failure, unspecified; I50.32 Chronic diastolic (congestive) heart failure; C91.10 Chronic lymphocytic leukemia of B-cell type not having achieved remission; D68.51 Activated protein C resistance; E44.0 Moderate protein-calorie malnutrition; J10.1 Influenza due to other identified influenza virus with other respiratory manifestations; E78.00 Pure hypercholesterolemia, unspecified; I11.0 Hypertensive heart disease with heart failure; I48.0 Paroxysmal atrial fibrillation; E11.42 Type 2 diabetes mellitus with diabetic polyneuropathy; Z79.84 Long term (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 oral hypoglycemic drugs; Z79.4 Long term (current) use of insulin; Z79.85 Long-term (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 injectable non-insulin antidiabetic drugs; N32.81 Overactive bladder; K21.9 Gastro-esophageal reflux disease without esophagitis; Z79.01 Long term (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 anticoagulants; Z68.26 Body mass index [BMI] 26.0-26.9, adult; Z86.73 Personal history of transient ischemic attack (TIA), and cerebral infarction without residual deficits; Z90.710 Acquired absence of both cervix and uterus; Z90.49 Acquired absence of other specified parts of digestive tract
CPT/HCPCS: 36415; 71045; 80053; 82948; 83605; 83735; 83880; 84484; 85025; 87040; 87804; 87811; 93005; 94640; 94667; 94668; 94761; 96365; 96375; 97161; 97165; 99285; J2405; J2919; J3475

== ENCOUNTER 2024-11-10 15:49 | Inpatient (IN) | payer MEDICARE, MEDICAID, SELFPAY ==
[2024-11-10] VITALS (31 sets, daily range): BP systolic 103–138; BP diastolic 51–78; PULSE 61–94; TEMP 36.8–37.6; O2SAT 88–100; BMI 23.8
--- OUTSIDE RECORDS SUMMARY | 2024-11-10 16:59 | XMS_ITS | CCD ---
Author Organization [facility] Care Team Providers Care C.O.D. Audit Clerk Name Role Phone Lawanda Alvarez Unavailable Shaikh Sparks MD Primary Care Provider [phone] Demetrio Joseph Primary Care Provider [phone] Hood Patel Unavailable [phone] Shaikh Sparks MD Primary Care Provider MD Hood Patel Attending Provider [phone] MD Amy Sparks Primary Care Provider FAWWAD, [...] FAWWAD, WATERS H Primary Care Unavailable FAWWAD, WATRES H Attending Unavailable FAWWAD, WATERS H Admitting Unavailable FAWWAD, WATERS Primary Care Physician Shante Shukla Attending Unavailable FAWWAD, WATERS Referring Unavailable Orzech Shante X Attending Unavailable Orzech, Shante X Admitting Unavailable Orzech, Shante X Attending Unavailable Orzech, Shante X Attending Unavailable Orzech, Shante X Admitting Unavailable Orzech, Shante X Attending Unavailable Estuardo Sanchez MD Primary Care Provider Ashley GARCIA, Tj Unavailable [phone] ALGHOTHANI, MOHAMAD Attending Unavailable ALGHOTHANI, MOHAMAD Attending Unavailable ALGHOTHANI, MOHAMAD Attending Unavailable Shaikh Sparks MD Unavailable CHRISTOPHER GARRETT Attending Unavailable TJ RAMIREZ Attending SHAIKH Mckeon Attending Unavailable TJ RAMIREZ Attending UnavailTJ Singleton Attending CHRISTOPHER Mcmahon Attending Unavailable TJ RAMIREZ Referring Nydia e RamirezTj ding NP Unavailable [phone] Allergies Allergy Classification Reported Allergen(s) Allergy Type Date of Onset Reaction(s) Facility Acetaminophen / oxyCODONE (1 source) Acetaminophen / oxyCODONE; Translations: [acetaminophen-ox ycodone] Drug Allergy Sleep terror disorder (disorder) [facility] Anticholinergics (1 source) tiotropium; Translations: [tiotropium] Drug Allergy Pharyngeal swelling (finding), Tongue swelling (finding) [facility] Opioid Agonists (1 source) oxyCODONE; Translations: [oxycodone] Drug Allergy Sleep terror disorder (disorder) [facility] (13 sources) Acetaminophen / oxyCODONE; Translations: [acetaminophen-ox ycodone] Drug Allergy 03-31-20 16 Mental Status Change, Anaphylaxis, Sleep terror disorder (disorder) [facility] (9 sources) tiotropium; Translations: [tiotropium] Drug Allergy anaphylaxis, Pharyngeal swelling (finding), Tongue swelling (finding) [facility] (7 sources) Budesonide / formoterol Drug Allergy 03-31-20 22 Other: See Comments [facility] (20 sources) tiotropium Drug Allergy 03-31-20 16 Unknown [facility] (20 sources) oxyCODONE; Translations: [Oxycodone] Drug Allergy 05-01-20 19 Sleep terror disorder (disorder), Anxiety [facility] (4 sources) Acetaminophen / oxyCODONE; Translations: [Percocet] Drug Allergy 08-02-20 15 [facility] (20 sources) Acetaminophen / oxyCODONE; Translations: [OXYCODONE-ACETAM INOPHEN] Drug Allergy 08-12-20 15 Anxiety, Unknown, Anaphylaxis, Hallucinations [facility] (20 sources) Budesonide-Formot fernando Fumarate Drug Allergy 08-17-20 23 Swelling [facility] Medications Current Medications Medication Drug Class(es) Dates Sig (Normalized) Sig (Original) [id number] 200 actuat albuterol 0.09 mg/actuat metered dose [...] 28, 2018 10:19am May 12, 2022 8:02am codeine phosphate 2 mg/ml / guaiFENesin 20 mg/ml oral solution (1 source) Opioid Agonist Start: 11-10-2024 End: 11-16-2024 take 10 mL by mouth four times daily as needed for cough guaiFENesin-codein e (guaiFENesin AC) 100-10 MG/5ML syrup Indications: Influenza A Take 10 mL by mouth 4 (four) times a day as needed for cough for up to 6 days 237 mL 11/10/2024 11/16/2024 Active Continuous Glucose Information Technology Program Manager (FreeStyle Toby 3 [place]) device (20 sources) Start: 05-03-2024 Continuous Glucose Information Technology Program Manager (FreeStyle Toby 3 [place]) device Indications: Type 2 diabetes mellitus with stage 3a chronic kidney disease, with long-term current use of insulin ([facility]) ([facility]) , Type 2 diabetes mellitus without complications ([facility]) 1 each Daily 1 each 05/03/2024 Active Continuous Glucose Sensor (FreeStyle Toby 3 Plus Sensor) misc (4 sources) Start: 05-03-2024 End: 05-31-2024 Continuous Glucose Sensor (FreeStyle Toby 3 Plus Sensor) misc Indications: Type 2 diabetes mellitus with stage 3a chronic kidney disease, with long-term current use of insulin (HCC) ([facility]) , Type 2 diabetes mellitus without complications ([facility]) 1 each Daily for 28 days 2 each 11 05/03/2024 05/31/2024 Active dapagliflozin 10 mg oral tablet (20 sources) Sodium-Glucose Cotransporter 2 Inhibitor Start: 11-25-2023 End: 05-23-2024 take 1 tablet by mouth once daily Farxiga 10 MG Indications: Type 2 diabetes mellitus with stage 3a chronic kidney disease, with long-term current use of insulin (HCC) ([facility]) TAKE 1 TABLET BY MOUTH EVERY DAY [...] 2019 1:07pm take 1 capsule by mo [facility] once daily, then take 1 capsule [...] 2 diabetes mellitus with diabetic autonomic (poly)neuropathy ([facility]) INJECT 1.5 MG UNDER THE SKIN 1 (ONE) TIME PER WEEK 0.5 mL 3 05/08/2024 Active Start: 01-26-2019 inject 1.5 mg by [...] 2019 12:00am ergocalciferol 1.25 mg oral capsule (7 sources) Provitamin D2 Compound Start: 10-18-2024 End: 01-16-2025 take 1 capsule by mouth every week ergocalciferol (Vitamin D-2) 1.25 MG (34380 UT) capsule Indications: Vitamin D deficiency Take [...] 28, 2018 10:17am take 1 capsule by [facility] every twenty-four hours Gabapentin 300 MG [...] insulin aspart, human 100 unt/ml pen injector (10 sources) Insulin Analog Start: 08-15-2024 End: 02-11-2025 insulin aspart (NovoLOG FLEXPEN) 100 UNIT/ML pen Indications: Type 2 diabetes mellitus with diabetic autonomic (poly)neuropathy (CMS/HCC) Inject 5 Units under the skin in the morning and 5 Units at noon and 5 Units in the evening. Inject before meals. 13.5 mL 1 08/15/2024 02/11/2025 Active 3 ml insulin degludec 100 unt/ml pen injector (10 sources) Insulin Analog Start: 08-15-2024 End: 02-11-2025 [...] Inject before meals. 11/02/2024 Discontinued (Dose adjustment) 3 ml insulin lispro 100 unt/ml pen injector (2 sources) Insulin Analog Start: 11-03-2024 insulin lispro (HumaLOG KWIKPEN) 100 UNIT/ML injection Indications: Type 2 diabetes mellitus with diabetic autonomic neuropathy, with long-term current use of insulin (CMS/HCC) Inject 5 Units IN the morning and 5 Units at noon and 5 Units in the evening SUBCUTANEOUSLY BEFORE MEALS ( EXPECT 15 TOTAL UNITS DAILY) 15 mL 3 11/03/2024 Active Iron (2 sources) take 1 tablet by mouth once daily Iron 240 (27 Fe) MG 1 tablet Orally Once a day Active lisinopril 10 mg oral tablet (20 sources) Angiotensin Converting Enzyme Inhibitor Start: 11-02-2024 take 0.5 tablet by mouth once daily [...] twice daily. ondansetron 4 mg oral tablet (10 sources) Serotonin-3 Receptor Antagonist take 1 tablet [...] day(s), # 180 tab(s), Refills(s) 3, Pharmacy: [facility]/pharmacy #[id number], 155, cm, 05/09/24 9:05:00 EDT, Height/Length Dosing, [...] on above: Take 1,000 mcg by mo [facility] once daily. Completed/Discontinued Medications Medication Drug [...] Sensor (F reeStyle Toby 14 Day Sensor) misc Indications: Type [...] Proton Pump Inhibitor Start: 01-27-20 End: 05-03-20 take 40 mg by mouth once daily [...] [Dietary counseling and surveillance] 08-15-2024 Episodic Asthma (20 sources) Asthma; Translations: [Unspecified asthma, uncomplicated] 05-03-2024 [...] immunization; Translations: [Encounter for immunization] 08-01-2024 Episodic Influenza (2 sources) Influenza due to Influenza A virus; Translations: [Influenza due to other identified influenza virus with other respiratory manifestations] Onset: 5 11-10-2024 Episodic Leukemias (20 sources) Chronic lymphoid leukemia, [...] Onset: 12-22-2021 Episodic Other aftercare (1 source) manager long term care (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 insulin; Translations: [RN LVN CURRENT USE OF INSULIN] Onset: 01-28-2022 Episodic Other aftercare (1 source) Other senior living (current) drug therapy; Translations: [OTH RN LVN CURRENT DRUG THERAPY] Onset: 12-24-2021 Episodic Other aftercare (1 source) nursing home (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 oral hypoglycemic drugs; Translations: [RN LVN USE ORAL HYPOGLYCEMIC DX] Onset: 12-24-2021 Episodic Other aftercare (1 source) manager long term care (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 anticoagulants; Translations: [ASSISTED CURRNT USE ANTICOAGULANTS] Onset: 12-24-2021 Episodic Other [...] on 10-18-2024 Glucose Blood, POC 142 mg/dL [facility] MICROALB CREAT RATIO RAN DOMon 10-14-2024 CREATININE URINE RANDOM 98.65 mg/dL 20.00 - 300.00 mg/dL [facility] Interpretation and review of laboratory results Abnormal [facility] MICROALBUM CREATININE RATIO UR 182.4 mg/g High 0.0 - 29.9 mg/g [facility] Comment on above: NO MICROALBUMINURIA 0-29 MG/G CLINICAL MICROALBUMINURIA 30-300 MG/G MACROALBUMINURIA >300 MG/G MICROALBUMIN URINE RANDOM 18 mg/dL NINF - 30.0 mg/dL [facility] Glucose (Bld) [Mass/Vol]Orde red By: Nalini Carrero on 08-15-2024 Glucose Blood, POC 249 mg/dL [facility] No Panel InformationOrdered By: Nalini Carrero on 08-15-2024 [facility] POCT glycosylated hemoglobin (Hb A1C) docked deviceon 08-15-2024 HbA1c (Bld) [Mass fraction] 7 % [facility] Office Visiton 08-04-2024 Follow-up visit [id number] AriadneRobina H 1950 F Date Provider Department Center 08/04/2024 Dorota-EDD WADE Family History Problem Relation Age of Onset Pulmonary embolism Father Family Status - Relation Status Age at Father Level of Service:88705 [place] OFFICE/OUTPATIENT ESTABLISHED LOW MDM 20 MIN Normal [facility] HbA1c (Bld) [Mass fraction]o n 08-01-2024 Interpretation and review of laboratory results Abnormal [facility] Laboratory - Hematology and Cell countson 08-01-2024 HbA1c (Bld) [Mass fraction] 6.6 % [facility] FACTOR V LEIDEN MUTATIONon 0 06-05-2024 Interpretation and review of laboratory results Abnormal [facility] FACTOR V LEIDEN MUTATION Comment Abnormal . 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 See Additional Clinical Information and Comments. Additional Clinical Information: Venous thromboembolism is a multifactorial disease influenced by genetic, environmental, and circumstantial risk factors. The c.1601G>A (p. [id number]) variant in the F5 gene, commonly referred [...] c.*97G>A variant and Factor V Leiden (PMID: 86537177). Additional risk factors include but are not [...] health care providers to discuss results at [phone] ([phone]). Test Details: Variant Analyzed: c.1601G>A (p. [id number]), referred to as Factor V Leiden Methods/Limitations: [...] developed and its performance characteristics determined by [employer]. It has not been cleared or approved by the Food and Drug Administration. References: Gualberto S, Vika LOPEZ, Cullen R, Gary WW, Justin JH; [employer]CM[employer] Professional Practice and Guidelines Committee. Addendum: [employer] consensus statement on factor V Leiden mutation testing. Jennifer Med. 2020Nov 15. doi: 10.1038/y31114-950-96121-r. PMID: 43219528. Keira MORENO. Factor V Leiden Thrombophilia. 1998January 24 (Updated 2017Sep 16). In: Tray MP, Raul HH, Shahida RA, et al., editors. Rayna(R) (Internet). [place] ([place]): [facility], [place]; [phone]. Available from: https://www.ncbi.nlm.nih.gov/books/NLB5990/ Kirit S, Vika LOPEZ, Robert X, Ranjan B, Malia EB, Janina P, Chetan CS; [employer] Laboratory Director Of Distance Learning Committee. Venous thromboembolism laboratory testing (factor V Leiden and factor II c.*97G>A), 2018 update: a technical standard of the [employer] and Genomics (ACMG). Jennifer Med. 2017;20(12):3606-4246. doi: 10.1038/i25710-157-5887-k. Epub 2017Jun 17. PMID: 04374863. [facility] REVIEWED BY Comment . [facility] Comment on above: Technical Component performed at [facility] RT Professional Component performed by: [employer] Xavi Rogers, Ph.D., [facility] Director, Molecular Genetics [address] [place] [address] [place] [address] Performed at: [facility] RT [address] [facility] [place] [id number] Account Technician: [facility], located within [facility], Phone: [phone] [facility] No Panel Informationon 05-18 [facility] PROTEIN C-FUNCTIONALon 05-18 PROTEIN C-FUNCTIONAL 159 % 73 - 180 % [facility] Comment on above: Performed at: [address] [id number] Account Technician: Katlyn Shabazz MD, Phone: [phone] PROTEIN S-ANTIGENon 05-18-20 24 PROTEIN S, FREE 103 % 61 - 136 % [facility] PROTEIN S, TOTAL 117 % 60 - 150 % [facility] Comment on above: This test was develo ped and its performance characteristics determined by [employer]. It has not been cleared or approved [...] drugs. C Urineon 05-11-2024 Bacteria identified [facility] (U) Microbiology PROCEDURE: Urine Culture [R1] SOURCE: U CleanCat BODY SITE: COLLECTED DATE/TIME: 05/09/2024 09:55 EDT RECEIVED DATE/TIME: 05/09/2024 18:41 EDT START DATE/TIME: 05/09/2024 18:41 EDT FREE TEXT SOURCE: Gayla HON, APPAREL RENTAL CLERK-C, Gayla HON, APPAREL RENTAL CLERK-C, Shante X Shante X FINAL REPORTS Final [...] This test was performed at: [facility], [address] [place] [address], [phone] , [place], [facility] Comment on above: Performed By: #### 2 [id number] #### [facility] [address] [place] [address] Ambulatory Visit Summaryon 0 05-09-2024 Ambulatory Visit Summary Ambulatory Visit Summary ROBINA RON :1950 Visit Date:05/09/2024 Ambulatory Visit Instructions Your Diagnosis OAB (overactive bladder) Mixed incontinence Asymptomatic microscopic hematuria Nocturia Unspecified urethral stricture, female Glucosuria Proteinuria Your Care Team Attending Physician - AMALIA hSukla APRN, Shante Bonilla Primary Care Physician - [...] Schedule the Following Appointments Follow Up with AMALIA Shukla APRN, Shante Bonilla, NAHEED, URL When: Comments: 6 months Where: Medications What How Much When Why Instructions New trospium (trospium 20 mg oral tablet) 1 Tablets By Mouth 2 times a day OAB (overactive bladder) Duration: 90 Days Refills: 3 Pickup at [facility]/pharmacy #[id number] Unchanged atorvastatin (atorvastatin 20 mg Tab) 90 [...] physician if questions or concerns Pharmacy Information [facility]/pharmacy #[id number]: [address], [place] [phone] What How Much When Comments Stop Taking [...] insulin Unspecifie (more content not included)... Normal [facility] Reminderson 05-09-2024 Reminders Reminders From: Anushka Carroll To: EU - Administrative; Sent: 05/09/2024 10:23:22 EDT Show up: 08/13/2024 10:23:00 EST Subject: Ambulatory Reminder Due Date/Time: 10/23/2024 10:22:00 EST Reminder/Recall Patient needs scheduled with AO for a 6 month f/u, due back mid October 2024 Normal [facility] Urology Office/Clinic Noteon 05-09-2024 Urology [...] with voice recognition artificial intelligence software, specifically [employer] and or [employer]. Substitutions may have occurred due to the [...] BID, # 60 tab(s), Refills(s) 2, Pharmacy: [facility]/pharmacy #[id number], 155, cm, 02/29/24 10:38:00 EDT, Height/Length Dosing, 66.5, kg, 02/29/24 10:38:00 EDT, Weight Dosing trospium, 20 mg = 1 tab(s), Oral, BID, X 90 day(s), # 180 tab(s), Refills(s) 3, Pharmacy: [facility]/pharmacy #[id number], 155, cm, 05/09/24 9:05:00 EDT, Height/Length Dosing, 66.5, kg, 05/09/24 9:05:00 EDT, Weight Dosing 10536 Measure Post Void residual urine and/or bladder capacity by US- non-imaging Urine Culture Urnls Dip Stick Auto w/o Microscopy POC 11849 2. Mixed incontinence (N39.46: Mixed incontinence) UUI >>> LEW See #1 Ordered: 57156 Measure Post Void residual urine and/or bladder capacity by US- non-imaging Urine Culture Urnls Dip Stick Auto w/o Microscopy POC 04989 3. Asymptomatic microscopic hematuria (R31.21: Asymptomatic microscopic [...] Improved to 2 times per night Ordered: 05210 Measure Post Void residual urine and/or bladder capacity by US- non-imaging Urine Culture Urnls Dip Stick Auto w/o Microscopy POC 35881 5. Unspecified urethral stricture, female (N35.92: Unspecified urethral stricture, female) s/p cystoscopy/UD 01/09/2019 by ELHAM [1] Ordered: 32572 Measure Post Void residual urine and/or bladder capacity by US- non-imaging Urine Culture Urnls Dip Stick Auto w/o Microscopy POC 44342 6. Glucosuria (R81: Glycosuria) 3+ on UA [...] CVA (cerebrovascular (more content not included)... Normal [facility] Comment on above: Result Comment: Elec tronically Signed By: AMALIA Shukla APRN, [place] X\.br\Date and Time Signed: 05/09/24 10:01 EDT ALL CBC WITH AUTO DIFFon BASOPHILS ABSOLUTE AUTO 0.0 [facility] Basophils/100 WBC (Bld) 0.3 % 0.2 - 2.0 % [facility] Eosinophils/100 WBC (Bld) 1.2 % 0.9 - 7.0 % [facility] Erythrocyte distribution width (RBC) [Ratio] 14.1 % 11.0 - 15.0 % [facility] Hematocrit (Bld) [Volume fraction] 42.8 % 36.0 - 48.0 % [facility] Hemoglobin (Bld) [Mass/Vol] 14.1 g/dL 12.0 - 16.0 g/dL [facility] IMMATURE GRANULOCYTES ABS AUTO 0.07 High [facility] Immature granulocytes/100 WBC (Bld) 0.6 % High 0.0 - 0.5 % [facility] Interpretation and review of laboratory results Abnormal [facility] LYMPHOCYTES ABSOLUTE AUTO 3.0 [facility] Lymphocytes/100 WBC (Bld) 26.4 % 20.5 - 60.0 % [facility] MCH (RBC) [Entitic mass] 30.0 pg 26.7 - 34.0 pg [facility] MCHC (RBC) [Mass/Vol] 32.9 g/dL 29.9 - 35.2 g/dL [facility] MCV (RBC) [Entitic vol] 91.1 fL 81.0 - 99.0 fL [facility] MONOCYTES ABSOLUTE AUTO 0.7 [facility] Monocytes/100 WBC (Bld) 5.7 % 1.7 - 12.0 % [facility] NEUTROPHILS ABSOLUTE AUTO 7.6 High [facility] Neutrophils/100 WBC (Bld) 65.8 % 43.0 - 75.0 % [facility] Platelet mean volume (Bld) [Entitic vol] 8.0 fL Low 9.5 - 13.5 fL [facility] TBH EO # 0.1 [facility] TB PLT 167 [facility] TB RBC 4.70 [facility] TB WBC 11.5 High [facility] Office Visiton 05-08-2024 Follow-up visit [id number] AriadneMaggieRobina H 1950 F Date Provider Department Center 05/08/2024 [facility]8-ALGHOTHANI, MOHAMAD BH CARD [facility] Family History Problem Relation Age of Onset Pulmonary embolism Father Family Status - Relation Status Age at Father Level of Service:13850 [place] OFFICE/OUTPATIENT ESTABLISHED LOW MDM 20 MIN [facility] 36on 04-11-[address] Wade reviewed patient's echo from 04/05/2024 and said it was ok. Spoke with patient and made her aware. She was unable to schedule Oct follow up because she didn't have her son's schedule with her. I advised she would get a phone call in May to schedule an apt for Oct. She verbalized understanding. [facility] Office Visiton 03-14-2024 Follow-up visit [id number] Maggie Ronmonse Steele 1950 F Date Provider Department Center 03/14/2024 [facility]-EDD WADE JOHNATHON Zaragoza Family History Problem Relation Age of Onset Pulmonary embolism Father Family Status - Relation Status Age at Father Level of Service:88993 RI OFFICE/OUTPATIENT ESTABLISHED MOD MDM 30 MIN [facility] Coding Summary.on 03-07-2024 Coding Summary. QGNJAzch67KXe2rKs+PG h lYWQ+UW5NBFCcT67toGZx cX8iM0WJFFbOCnbxVNXSH DcSOwFdibIeGP5jeVIuNK Ju IC8+RO9kUAFoHpqodQQop 3F6bGB1F60jsh7uTAjnfX K4ENNpLxDmlcrnf4tajMj 6IDcuNmluOyBt QTNkyX87TQH0sU14Tg77p FCwwWWcu7aabWc2GlSgLF HwRNW9uOhhGCbwg9WqENL zX61ukJClv3U5 DIHovWgajPBeBfAuaGK7g U4gAQyogkznz1wkdfntLw c6ki60vJImm8S5vHX9Q6Z hzjD5AEMzkQKs GwrfrTRPuC7oxhyix2jni qhwFpUfLWGlVDi6EYe1WD PmpGawStKvOE69WDD6IMA sckCvL9MoSIWe oSpuQnG3c5A5Co9AK5YCS icsV3HMITHINYtdgHI+PC 36xb55T6RlVyeeCwb3SJO jQIB1uZZ4dU7j GHKwKLygc9R4tUQ8J7Jdt jAzaz0rb2vpQRIiVGbiI9 1zhQMqs9M6ERKqmOW5VAP hkFbdTgEfgP08 Oyc+IKIwrGyna0KgEgrhz 6avv8hgwVs5XguxAUDdjy IcgBxrLXW9d0SqYd5xWJE tfKX6wXE6lH0s YsJnFiQ0DTtvX344SiTew BQtKmzhD48hY1XhfLT+PH HnAxa5DZMmyXbgRW8sH0X hZGRpbmctbGVm pPhtCC5pUMOiibrtSBGma N7pNNGzK8r2BgFfZdX6GK khG4DwGTJzyxtjWb10aC0 vVeKwHnV8MPnt A3YtvbC9ANBujZQhWRerJ DD0Z59js1T1CMJnWOThAQ U0tSP9tV0jtEihvqvdlLV mdDsgdmVydGlj FAymMKgrB387PYCmrYraR kNvZGluZyBEYXRlOiAgMD YvMjUvMjAyNDwvdGQ+PHR cAAW7pLofOJZw vDAdTDnwNg4zlRoqfVorM E6sCHXvjcmvHISjoR8wEH GpnJAqeBvzLU8dSLDtgym pa578TxVzWQD8 VBOneWNsU4WfxU4eGyRcR GNfWMVlM5MkjHEvZGqrN5 85GGlaIiZ5EYQfydDqO3O sLWFsaWduOiB0 c2H8Qa1Sr9UroylrT1Imd OTsTbJxSohhJOh2F2BcUm wvdHI+WE39VYKeEW03YWd 1EOW1fJnoPVpv XOJgA0SuyG1hGsUyXFScD GRkOyc+PHRhYmxlIHdpZH RoPScxMDAlJyBzdHlsZT0 iAx2tWEYxSRXw sVgxoEOjPuBwm1gmPNCtB ZchNW3cqFvgT4VzdGE4IZ Ozu2n4Lb72I15cO1WjyWI +SMQggES0fFJ3 uZ5rKiBaCrR0NQbvN031Y hXksMVrIkkhg5jqf8yasH w1LdI8XHVsubOglQfrGEB 5l5YkUu29S96k IHdpZHRoPSIxNSUiIHZhb Rmldm4ckV8uZb0+PGNvbC X9mFZ0yD9qBvClWgD1NNi aA023XoBgvRKf Kyfxo8fwb3xpjHi5PvAiQ MFdcvCnfTdfKBQ8x0IpHe 32P8MnoOpoz7HgTbe0md5 9lMZug1P3iZB1 U2FcZABuhkwaxNLzvIofQ M9eMWDaxiuqMGPybB2rAM GpU8o7OhTpZvT0XAjbV1C kivU5CWUxlBMc LRImsGLMiL1aclpfb9prp onkSkTmGDOxPVb0EOb5ZZ SazBjpExOyVXW0VeW5KWQ 0yJHqbD5eqHiz vgjbfO1cQix+CUS8iMVub LMXHB4uFtkkgIB+PHRkIH F6pLztGCbtDRFctW5dOVX tN7i2KuFnZdX7 PWiwC2JjqjM6GQNixTWsV CBdsHZScF2fhkzmu0ihik ysZrFkUHHsLGu0BWk3MII saWduOiBsZWZ0 CjO1KZB6fJCfeG6ymUhwf cgjvX4qSsx+QmlydGggRG T0FYz4A0UiIgm6ZIKviTv eLA6niWBuDBma Mx0piKphhTcbHI3dEHQqd pysa038IwKpb2jnDQUmwD JfLTukWYT4Q16pf1X6QSI oUORkAZS1dMY0 jH3wzGciozejwVFrcRhfd rCqiUwhQDwlFWklC022IM NkuKpzFmBwVNf4O0SlTsz 7LWGgeCliXY1k bHFcJVtoMx8thBeohFviG Y1lHYEjxndiy383HfGra0 ehHRMgmIMgQDbjSGJ7U29 yx5E6TOFrCYRx HZP7rEP5xV9qlHyaraeuq GVmdDsgdmVydGljYWwtYW qrK793RVYjbJbdYlNfcDn 3Q3OpFfa7YGOb eVtjWG1anPUuYFifPe0py EqbgWxdNR8dWCBlwkmhz1 51MvDmq9upWDBvxJUzUIx vWLK7B53hy0E6 AGNtFTFmAES6yIV5yU5gn GlnbjogbGVmdDsgdmVydG bxYQwdMIkpG837RWYyiAg nPlBhdGllbnQg VPlpUEb7T1FbEohqtLN+P N38NHDqRT32eTRiaTQew0 jrtUz8VgBaUCKlPIB5mXh qDTpgq6MpDMGo O11rsWNny0Z0GUXxrXqcp TSlQnPbsTV6sU2rQGrxpj nny9mipwvsVfrqm0jbob5 4eP34L25mDQch ZHRoPSIzMCUiIHZhbGlnb q5npQ6iUv3+GKIrdST9gA C4nI2bAJDzLnU2GClcO72 9InRvcCIvPjxj c0ric7sceKp3FsN1DHRfj vAidLuiJEZ0v0VcVt44N4 9sIHdpZHRoPSIyMCUiIHZ ctIdbwc8zoA4c Ii8+KCSbmXR5aGS6uF3kY oCmHoK9BLydC730EgKckY TzSczoC28zT7GedXU+PHR rBje1VRXbiBgo SJ7hgNOiELnzLk0nOOG0I rYkUvTnKErxI0LxAYPaip iksbwlgCE7PBUzLPZjuH9 5Xh8gtYqpFNDw jDBKiJ7itfvqs2gcyinaW dRfYFXcQFe7IIk6FTCktH oaEdWfIIQ7CxX8YGP1tYL byW7cpXthhlsi yA7yD6JuOQWzyjtdNx55n Y4kCeLdJmF3ZYzxYqa+TE RBMPhfW5YRLNwQXN8cVJd vdGQ+PHRkIHN0 hYdrHFhhIMViuD1lHULiR 8o5SmFzLfR4IEhaW3KaOE DusrssYc28mU3iSsCxEzS 3JHkuC0NmfmG5 IHWsaZHcWDerHUT1T87pm 6Z5WAXnPMIhXCT3pUT8eL 1hbGlnbjogbGVmdDsgdmV ydGljYWwtYWxp J334VFBmjTicAkXtHzYhH lK2JST2X4BaVnr1KUFjzS dmYG6riNGuZCjeGg6zbUk jwYibPR1wTNFs qphqNVChcF4jURPqvUZdz SdfVM0zLOAkapuui664Mh FaKFX9JVCjpMHsF6JqgI1 yOiAjMDAwMDAw G2SavKUqYHejR189FGjwO vQ2EFEaaiKhK3MxTQJljC gjTfE4n2B1Ra33QzQVEGG yczwvdGQ+PHRk HTZ6aTepDBewEZAghH5pJ CRhL9z0EdYbJzU5YGlnE3 TuPKIogajwAt32nW7fPaG hPkL2OUdsG4Sl irO8YKPulTLyNRceFED3R 43lb0I3TZIuXEEpQOP1jX D8kO7uiHnucmiafIAonTq gdmVydGljYWwt EUoiK421CRBqpMmgBhXni WFsZTwvdGQ+CJXwUDT2lE blHCkjMSGvyP6mIAWpB0f 3YgUvOpM1BWwz F0BoVKHqowstSo91bT4lS rHdHxS1MQxaD0LsmtK3QY SvcSHcLGdhZEO8T59mk2S 7MRUuTKHqPIQ8 gTE8yH9xcOguqosmvSBzl DsgdmVydGljYWwtYWxpZ2 10VHUqfHdgQaukNbCTgc8 fTR4mLvrtdUB+ LY97sp47H3KxMonwFeh5M JGaTAG1zHR0bL2bZFSwKQ oav2K4vMG3V0PgnnAspp2 bf2crTILuNHaj M22mqNPfy4D8FMKawLJ5B WPbnCwpVhIeaY65Ftd+PG TqsMbew0QnNhdiq4qmt3e lmGo0IkNoFNPw hyRglLgwLGP1p1KwCw86X 29sIHdpZHRoPSIzMCUiIH SxvKvsld6lrG9lTg1+PGN hiIO5oQH7uJ8f QgXaKwH3FKbrS791DiBxp KOoXuhme4ldc9otpKu3Ya BsDTEgdkWzlIgmHVC9z7U fTe54S2BuoUty r9RvYuk3ik77wWPus9O4r RW5Y0HvSKIhzmwioWLmiV tqMN1kGHJemqfrBKXxnJ5 hPCEcG6p5DgNe OeO1GJwsA8RxnzI1JRQyw FYxKKVavRHVaH0znizfn4 yegtlsKcGoVIMrGRs8UQj 0LWFsaWduOiBs NLN4FwF0BXA4eOAusJ0wc KwcjxyoxJ6bQfr+UGh5c2 mjnAXvPS1jbDL2QY57WJ1 5sYBot4Z6iQC6 E2LdPPZatluiaiznzOU9A YKjKLAdwG32Yh4iqRtjCj 4nMEKzEZD2HIOnaRNgU0U ehX6dUwAgVHKa MAZgW1RrePEmEUpiC005C EvsWvK0WLRyezMzY0BdPI MgbZfkEqK6x8M9Ta7JMH5 8LS10SM85cLQd y9J9wOJ5W4SaYSRsnyezn uulhQL2PHKqNLEfqR29Lx 7dyOndWb8uIZNmLXI4SAQ yzPUyH3TcsH4u QvTiUHYsEBDfF1IuxVRaN TqiI699YEplRmB3ZJTruf XeP5EmGYCvrSpkKdP3c0Z 0Mw7GFi72VY76 PI85jDOgf4S8yKA6V4ZnT IEcgizqduzucMV0HINrBF TjhX18Nz8hrWztZu3jIXJ vUJR1LTAldJVi J2FwvX6sOtWpJZCdIGCzK 1GukDDrASfdD103RKuwPq G3YVJwgtTrB0QuLAIgaRy zWiD4o8V0Iw9N ULuawtg6P7QcTejwkPG+P U92EMGrZP45tUAawRJbx9 ykgZe0AdUoMUDlLFU1tIr jWEooe7HvRABz K11mnRJjp0D2X (more content not included)... Normal [facility] Patient Educationon 03-05-20 Patient Education [...] health care provider. General instructions ? Take ucfp-tyt-fgofyea and prescription medicines only as told by [...] monitor yo (more content not included)... Normal [facility] C Urineon 03-02-2024 Bacteria identified [...] Locations R1: This test was performed at: [facility], [address] [place] [address], [address]- , [place], [facility] Comment on above: Performed By: #### 2 [id number] #### [facility] Laboratory [address] [place] [address] Physician Referralon 024 Physician Referral [phone] [id number]#1. 00TIFF [facility] Screenson 03-01-2024 Screens [id number]# 1.00TIFF [facility] Ambulatory Visit Summaryon 0 02-29-2024 Ambulatory [...] for choosing us for your care. Normal [facility] GLYCOHEMOGLOBIN A1Con 2021 ADA RECOMMENDATION SEE BELOW Normal [facility] Comment on above: Result Comment: ADA RECOMMENDED LIMIT 4.0 - 6.0 ADA THERAPEUTIC TARGET < 7.0 ACTION SUGGESTED > 7.0 Performed By: #### A 1C #### [facility] [address] [place] [address] Dr. Julisa Lowe Glucose [Mass/Vol] 235 mg/dL Normal [facility] Comment on above: Performed By: #### A 1C #### [facility] [address] [address] [address] Julisa Lowe HbA1c (Bld) [Mass fraction] 9.8 % Critically high 4.5-6.2 [facility] Comment on above: Performed By: #### A 1C #### [facility] [address] [address] [address] Julisa Lowe PROF CHEM 8 (BAS METB)on Anion gap [Moles/Vol] 17.7 mmol/L Normal [facility] Comment on above: Performed By: #### B MP #### [facility] [address] [address] [address] Julisa Lowe Calcium [Mass/Vol] 9.3 mg/dL Normal 8.5-10.1 [facility] Comment on above: Performed By: #### B MP #### [facility] [address] [address] [address] Julisa Lowe Chloride [Moles/Vol] 107 mmol/L Normal 98-107 [facility] Comment on above: Performed By: #### B MP #### [facility] [address] [address] [address] Julisa Lowe CO2 [Moles/Vol] 24.3 mmol/L Normal 21.0-32.0 [facility] Comment on above: Performed By: #### B MP #### [facility] [address] [address] [address] Julisa Lowe Creatinine [Mass/Vol] 0.90 mg/dL Normal 0.55-1.02 [facility] Comment on above: Performed By: #### B MP #### [facility] [address] [place] [address] Dr. Julisa Lowe EGFR-AF NICARAGUAN >60 Normal >=60 [facility] Comment on above: Performed By: #### B MP #### [facility] [address] [address] [address] Julisa Lowe EGFR-NON AF NICARAGUAN >60 Normal >=60 [facility] Comment on above: Performed By: #### B MP #### [facility] [address] [address] [address] Julisa Lowe Glucose [Mass/Vol] 196 mg/dL Critically high 74-106 [facility] Comment on above: Performed By: #### B MP #### [facility] [address] [address] [address] Julisa Lowe Potassium [Moles/Vol] 5.0 mmol/L Normal 3.5-5.1 [facility] Comment on above: Performed By: #### B MP #### [facility] [address] [address] [address] Julisa Lowe Sodium [Moles/Vol] 144 mmol/L Normal 136-145 [facility] Comment on above: Performed By: #### B MP #### [facility] [address] [address] [address] Julisa Lowe Urea nitrogen [Mass/Vol] 33.0 mg/dL Critically high 7.0-18.0 [facility] Comment on above: Performed By: #### B MP #### [facility] [address] [address] [address] Julisa Lowe Urea nitrogen/Creatinine [Mass ratio] 36.7 mg/mg Normal [facility] Comment on above: Performed By: #### B MP #### [facility] [address] [address] [address] Julisa Lowe Basophils Auto (Bld) [#/Vol] Ordered By: Hood Patel on 05-12-2022 Basophils (Bld) [#/Vol] 0.1 10*3/uL 0.0-0.2 [facility] Basophils/100 WBC Auto (Bld) Ordered By: Hood Patel on 05-12-2022 Basophils/100 WBC (Bld) 0.7 % . [facility] Blood hemoglobin measurement (mass/volume)Ordered By: Hood Patel on 05-12-2022 Hemoglobin (Bld) [Mass/Vol] 11.8 g/dL 11.8-15.4 [facility] Blood leukocytes automated c ount (number/volume)Ordered By: Hood Patel on 05-12-2022 WBC (Bld) [#/Vol] 7.6 10*3/uL 4.5-11.0 [facility] CT biopsyOrdered By: Mrena Patel on 05-12-2022 Transferrin [Mass/Vol] 206 mg/dL 180-380 [facility] Complete Blood Count Auto Di ffon 05-12-2022 Basophils (Bld) [#/Vol] 0.1 10*3/uL Normal 0.0-0.2 [facility] Comment on above: Result Comment: PERF ORMED BY: [facility] [address] [place] [address] PATHOLOGIST CLOTHER IN JENY DODGE M.D. Performed By: #### F E and TIBC, KATHY, [id number], CBC #### [facility] [address] [place] [address] Basophils/100 WBC (Bld) 0.7 % Normal . [facility] Comment on above: Performed By: #### F E and TIBC, KATHY, [id number], CBC #### [address] Eosinophils (Bld) [#/Vol] 0.1 10*3/uL Normal 0.0-0.45 [facility] Comment on above: Performed By: #### F E and TIBC, KATHY, [id number], CBC #### [address] Eosinophils/100 WBC (Bld) 1.6 % Normal . [facility] Comment on above: Performed By: #### F E and TIBC, KATHY, [id number], CBC #### [address] Erythrocyte distribution width (RBC) [Ratio] 27.8 % High 11.9-15.3 [facility] Comment on above: Performed By: #### F E and TIBC, KATHY, [id number], CBC #### [address] Hematocrit (Bld) [Volume fraction] 37.5 % Normal 34.0-46.4 [facility] Comment on above: Performed By: #### F E and TIBC, KATHY, [id number], CBC #### [address] Hemoglobin (Bld) [Mass/Vol] 11.8 g/dL Normal 11.8-15.4 [facility] Comment on above: Performed By: #### F E and TIBC, KATHY, [id number], CBC #### [address] Lymphocytes (Bld) [#/Vol] 2.4 10*3/uL Normal 1.00-4.8 [facility] Comment on above: Performed By: #### F E and TIBC, KATHY, [id number], CBC #### [address] Lymphocytes/100 WBC (Bld) 32.0 % Normal . [facility] Comment on above: Performed By: #### F E and TIBC, KATHY, [id number], CBC #### [address] MCH (RBC) [Entitic mass] 24.2 pg Low 24.7-34.3 [facility] Comment on above: Performed By: #### F E and TIBC, KATHY, [id number], CBC #### [address] MCV (RBC) [Entitic vol] 76.9 fL Low 80-100 [facility] Comment on above: Performed By: #### F E and TIBC, KATHY, [id number], CBC #### [address] Mean Corpuscular HGB Conc 31.4 g/dL Low 32.0-35.0 [facility] Comment on above: Performed By: #### F E and TIBC, KATHY, [id number], CBC #### [address] Monocytes (Bld) [#/Vol] 0.4 10*3/uL Normal 0.0-0.8 [facility] Comment on above: Performed By: #### F E and TIBC, KATHY, [id number], CBC #### [address] Monocytes/100 WBC (Bld) 5.8 % Normal . [facility] Comment on above: Performed By: #### F E and TIBC, KATHY, [id number], CBC #### [address] Neutrophils (Bld) [#/Vol] 4.6 10*3/uL Normal 1.8-7.7 [facility] Comment on above: Performed By: #### F E and TIBC, KATHY, [id number], CBC #### [facility] [address] Neutrophils/100 WBC (Bld) 59.9 % Normal . [facility] Comment on above: Performed By: #### F E and TIBC, KATHY, [id number], CBC #### [facility] [address] Nucleated RBC/100 WBC (Bld) [Ratio] 0.2 % Normal 0-0.5 [facility] Comment on above: Performed By: #### F E and TIBC, KATHY, [id number], CBC #### [facility] [address] Platelet mean volume (Bld) [Entitic vol] 6.5 fL Normal 6.3-10.7 [facility] Comment on above: Performed By: #### F E and TIBC, KATHY, [id number], CBC #### [address] Platelets (Bld) [#/Vol] 231 10*3/uL Normal 150-450 [facility] Comment on above: Performed By: #### F E and TIBC, KATHY, [id number], CBC #### [address] RBC (Bld) [#/Vol] 4.88 10*6/uL Normal 3.60-5.00 [facility] Comment on above: Performed By: #### F E and TIBC, KATHY, [id number], CBC #### [address] WBC (Bld) [#/Vol] 7.6 10*3/uL Normal 4.5-11.0 [facility] Comment on above: Performed By: #### F E and TIBC, KATHY, [id number], CBC #### [address] Eosinophils Auto (Bld) [#/Vo l]Ordered By: Hood Patel on 05-12-2022 Eosinophils (Bld) [#/Vol] 0.1 10*3/uL 0.0-0.45 [facility] Eosinophils/100 WBC Auto (Bl d)Ordered By: Hood Patel on 05-12-2022 Eosinophils/100 WBC (Bld) 1.6 % . [facility] Erythrocyte distribution wid th Auto (RBC) [Ratio]Ordered By: Hood Patel on 05-12-2022 Erythrocyte distribution width (RBC) [Ratio] 27.8 % 11.9-15.3 [facility] Ferritinon 05-12-2022 Ferritin [Mass/Vol] 218.6 ng/mL Normal 11-306.8 [facility] Comment on above: Performed By: #### F E and TIBC, KATHY, [id number], CBC #### [facility] [address] Ferritin [Mass/volume] in Se rum or PlasmaOrdered By: Hood Patel on 05-12-2022 Ferritin [Mass/Vol] 218.6 ng/mL 11-306.8 [facility] Folate [Mass/volume] in Seru m or PlasmaOrdered By: Hood Patel on 05-12-2022 Folate [Mass/Vol] 7.9 ng/mL >5.9 [facility] Comment on above: Folate reference ran ge: >5.9 ng/ml The WHO technical consultation on folate and vitamin b12 deficiencies has determined that folate concentrations less than 4 ng/ml are considered deficient. Glucose Glucometer (BldC) [M ass/Vol]Ordered By: Hood Patel on 05-12-2022 Glucose [Mass/Vol] 426 mg/dL [facility] Comment on above: Random Glucose Refer ence Range is dependent on time and content of last meal. Glucose of more than 200 mg/dL in a nonstressed, ambulatory subject supports the diagnosis of Diabetes Mellitus. Glucose Poct Glucometerson 0 05-12-2022 Commemt1 Normal [facility] Comment on above: Result Comment: Glu2 : Result Not Confirmed PERFORMED BY: [facility] [address] [place] [address] PATHOLOGIST CLOTHER IN JENY DODGE M.D. Performed By: #### G VANESSA #### Point of Care testing , Glucose [Mass/Vol] 426 mg/dL Off scale high [facility] Comment on above: Result Comment: [facility] Glucose Reference Range is dependent on time and content of last meal. Glucose of more than 200 mg/dL in a nonstressed, ambulatory subject supports the diagnosis of Diabetes Mellitus. Performed By: #### G VANESSA #### Point of Care testing , Hematocrit Auto (Bld) [Volum e fraction]Ordered By: Hood Patel on 05-12-2022 Hematocrit (Bld) [Volume fraction] 37.5 % 34.0-46.4 [facility] Iron [Mass/volume] in Serum or PlasmaOrdered By: Hood Patel on 05-12-2022 Iron [Mass/Vol] 48 ug/dL 40-150 [facility] Iron and TIBC Profileon 04-15 % Iron Saturation 16.0 % Low 20-50 [facility] Comment on above: Performed By: #### F E and TIBC, KATHY, [id number], CBC #### [facility] [address] Iron [Mass/Vol] 48 ug/dL Normal 40-150 [facility] Comment on above: Performed By: #### F E and TIBC, KATHY, [id number], CBC #### [facility] [address] [id number] [facility] Total Iron Binding Capacity 288 ug/dL Normal 255-450 [facility] Comment on above: Performed By: #### F E and TIBC, KATHY, [id number], CBC #### [facility] [address] [place] [address] [place] Transferrin [Mass/Vol] 206 mg/dL Normal 180-380 [facility] Comment on above: Performed By: #### F E and TIBC, KATHY, [id number], CBC #### [facility] [address] [id number] [place] Iron binding capacity [Mass/ volume] in Serum or PlasmaOrdered By: Hood Patel on 05-12-2022 Iron binding capacity [Mass/Vol] 288 ug/dL 255-450 [facility] Iron saturation [Mass Fracti on] in Serum or PlasmaOrdered By: Hood aPtel on 05-12-2022 Iron saturation [Mass fraction] 16.0 % 20-50 [facility] Los 05-12-2022 L - -------- Specimen: [id number] Received: 05/12/22 Status: CORRY [place] Num: [id number] Spec Type: Surgical Subm Dr: Hood Patel MD Tissues: A Duodenum - Biopsy (DUODENAL BX) Procedures: HE Stain/2, Gross/Micro L4 -------- Age/ Patient Sex Location Account Attending Physician -------- Robina Ron 71/F [id number] Hood Patel MD -------- SPEC NUM: [id number] RECD: 05/12/22 STATUS: CORRY CHOPRA NUM: [id number] PROSPER: 05/12/[address] [facility] DR: Hood Patel MD ENTERED: 05/12/22 [facility] DR: SPEC TYPE: Surgical DEPT: S ORDERED: [...] microscopic findings support the above pathologic diagnosis. [id number] -------- -------- Specimen: [id number] Received: 05/12/22 Status: CORRY [place] Num: [id number] Spec Type: Surgical Subm Dr: Hood Patel MD Tissues: A Duodenum - Biopsy (DUODENAL BX) Procedures: HE Stain/2, Gross/Micro L4 -------- Patient: Robina Ron [id number] (Continued) -------- Signed (signature on file) Jeny Dodge MD 05/13/22 1656 Normal [facility] - Chemistry and C hemistry - challengeOrdered By: Hood Patel on 05-12-2022 Cobalamin (Vitamin B12) [Mass/Vol] 277 pg/mL 180-914 [facility] - Hematology and Cell countsOrdered By: Hood Patel on 05-12-2022 Nucleated RBC/100 WBC (Bld) [Ratio] 0.2 % 0-0.5 [facility] Lymphocytes Auto (Bld) [#/Vo l]Ordered By: Hood Patel on 05-12-2022 Lymphocytes (Bld) [#/Vol] 2.4 10*3/uL 1.00-4.8 [facility] Lymphocytes/100 WBC Auto (Bl d)Ordered By: Hood Patel on 05-12-2022 Lymphocytes/100 WBC (Bld) 32.0 % . [facility] MCH Auto (RBC) [Entitic mass ]Ordered By: Hodo Patel on 05-12-2022 MCH (RBC) [Entitic mass] 24.2 pg 24.7-34.3 [facility] MCHC Auto (RBC) [Mass/Vol]Or dered By: Hood Patel on 05-12-2022 MCHC (RBC) [Mass/Vol] 31.4 g/dL 32.0-35.0 [facility] MCV Auto (RBC) [Entitic vol] Ordered By: Hood Patel on 05-12-2022 MCV (RBC) [Entitic vol] 76.9 fL 80-100 [facility] Monocytes Auto (Bld) [#/Vol] Ordered By: Hood Patel on 05-12-2022 Monocytes (Bld) [#/Vol] 0.4 10*3/uL 0.0-0.8 [facility] Monocytes/100 WBC Auto (Bld) Ordered By: Hood Patel on 05-12-2022 Monocytes/100 WBC (Bld) 5.8 % . [facility] Neutrophils Auto (Bld) [#/Vo l]Ordered By: Hood Patel on 05-12-2022 Neutrophils (Bld) [#/Vol] 4.6 10*3/uL 1.8-7.7 [facility] Neutrophils/100 WBC Auto (Bl d)Ordered By: Hood Patel on 05-12-2022 Neutrophils/100 WBC (Bld) 59.9 % . [facility] No Panel InformationOrdered By: Hood Patel on 05-12-2022 Bedside Glucose Comment See comment [facility] Comment on above: Glu2: Result Not Con firmed Platelet mean volume Auto (B ld) [Entitic vol]Ordered By: Hood Paetl on 05-12-2022 Platelet mean volume (Bld) [Entitic vol] 6.5 fL 6.3-10.7 [facility] Platelets Auto (Bld) [#/Vol] Ordered By: Hood Patel on 05-12-2022 Platelets (Bld) [#/Vol] 231 10*3/uL 150-450 [facility] RBC Auto (Bld) [#/Vol]Ordere d By: Hood Patel on 05-12-2022 RBC (Bld) [#/Vol] 4.88 10*6/uL 3.60-5.00 [facility] Vit. B12/Folate Profileon Cobalamin (Vitamin B12) [Mass/Vol] 277 pg/mL Normal 180-914 [facility] Comment on above: Performed By: #### F E and TIBC, KATHY, [id number], CBC #### [facility] [address] Folate 7.9 ng/mL Normal >5.9 [facility] Comment on above: Result Comment: Katelyn te reference range: >5.9 ng/ml The WHO technical consultation on folate and vitamin b12 deficiencies has determined that folate concentrations less than 4 ng/ml are considered deficient. PERFORMED BY: [place] [address] PATHOLOGIST CLOTHER IN JENY DODGE M.D. Performed By: #### F E and TIBC, KATHY, [id number], CBC #### [facility] [address] COVID-19 FRon 05-07-2022 SARS-CoV-2 (COVID-19) RNA CHALINO+probe Ql (Unsp spec) Negative Normal Negative [facility] Comment on above: Order Comment: Healt hcare Worker?: N Result Comment: Testing for SARS-CoV-2 by RT-PCR This test was developed and its performance characteristics determined by [employer] and validated at the [facility]. This test has not been FDA [...] is terminated or revoked sooner. PERFORMED BY: [address] [place] [address] PATHOLOGIST CLOTHER IN JENY DODGE M.D. Performed By: #### C OVID 19 [facility] #### [facility] [address] [id number] [facility] COVID-19 Positive/NegativeOr dered By: Hood Patel on 05-07-2022 SARS-CoV-2 (COVID-19) N gene CHALINO+probe Ql (Resp) Negative Negative [facility] Comment on above: Testing for SARS-CoV -2 by RT-PCR This test was developed and its performance characteristics determined by [employer] ([employer]) and validated at the [facility]. This test has not been FDA [...] Basophils (Bld) [#/Vol] 0.03 10*3/uL Normal <0.11 [facility] Comment on above: Order Comment: Speci men Type: BLOOD SPECIMEN Ordering Facility: [facility] Address: [address] [place] [address] Performed By: #### 5 7021-8, 74647-0 #### [facility] CLIA [id number] [address] [place] [address] Basophils/100 WBC (Bld) 0.3 % Normal [facility] Comment on above: Order Comment: Speci men Type: BLOOD SPECIMEN Ordering Facility: [facility] Address: [address] Performed By: #### 5 7021-8, 73003-3 #### [facility] CLIA [id number] [address] [place] [address] Differential cell count method Nom (Bld) Auto Normal [facility] Comment on above: Order Comment: Speci men Type: BLOOD SPECIMEN Ordering Facility: [facility] Address: [address] Performed By: #### 5 7021-8, 38337-7 #### [facility] CLIA [id number] [address] [place] [address] Eosinophils (Bld) [#/Vol] 0.09 10*3/uL Normal <0.46 [facility] Comment on above: Order Comment: Speci men Type: BLOOD SPECIMEN Ordering Facility: [facility] Address: [address] [address] Performed By: #### 5 7021-8, 80908-8 #### [facility] CLIA [id number] [address] [place] [address] Eosinophils/100 WBC (Bld) 1.0 % Normal [facility] Comment on above: Order Comment: Speci men Type: BLOOD SPECIMEN Ordering Facility: [facility] Address: [address] [address] Performed By: #### 5 7021-8, 60409-5 #### [facility] CLIA [id number] [address] [place] [address] Erythrocyte distribution width (RBC) [Ratio] 20.4 % High 11.5-15.0 [facility] Comment on above: Order Comment: Speci men Type: BLOOD SPECIMEN Ordering Facility: [facility] Address: [address] Performed By: #### 5 7021-8, 55087-8 #### [facility] CLIA [id number] [address] [place] [address] Hematocrit (Bld) [Volume fraction] 33.1 % Low 36.0-46.0 [facility] Comment on above: Order Comment: Speci men Type: BLOOD SPECIMEN Ordering Facility: [facility] Address: [address] [place] [address] Performed By: #### 5 7021-8, 51409-7 #### [facility] CLIA [id number] [address] [place] [address]331 Hemoglobin (Bld) [Mass/Vol] 9.3 g/dL Low 11.5-15.5 [facility] Comment on above: Order Comment: Speci men Type: BLOOD SPECIMEN Ordering Facility: [facility] Address: [address] [place] [address] Performed By: #### 5 7021-8, 26626-9 #### [facility] CLIA [id number] [address] [place] [address]2904 IMMATURE GRAN % 0.9 % Normal [facility] Comment on above: Order Comment: Speci men Type: BLOOD SPECIMEN Ordering Facility: [facility] Address: [address] [place] [address] Performed By: #### 5 7021-8, 13273-0 #### [facility] CLIA [id number] [address] [place] [id number] IMMATURE GRAN ABS 0.08 k/uL Normal <0.10 [facility] Comment on above: Order Comment: Speci men Type: BLOOD SPECIMEN Ordering Facility: [facility] Address: [address] [place] [address] Performed By: #### 5 7021-8, 01215-5 #### [facility] CLIA [id number] [address] [place] [address] [id number] Lymphocytes (Bld) [#/Vol] 2.43 10*3/uL Normal 1.00-4.00 [facility] [facility] Comment on above: Order Comment: Speci men Type: BLOOD SPECIMEN Ordering Facility: [facility] Address: [address] [place], [place] [address] Performed By: #### 5 7021-8, 76372-9 #### [facility] CLIA [id number] [address] [place] [address] 42240 Lymphocytes/100 WBC (Bld) 26.6 % Normal [facility] Comment on above: Order Comment: Speci men Type: BLOOD SPECIMEN Ordering Facility: [facility] Address: [address] [place], [place] [address] Performed By: #### 5 7021-8, 56234-0 #### [facility] CLIA [id number] [address] [place] [address] 88638 MCH (RBC) [Entitic mass] 20.2 pg Low 26.0-34.0 [facility] Comment on above: Order Comment: Speci men Type: BLOOD SPECIMEN Ordering Facility: [facility] Address: [address] [place] [address] Performed By: #### 5 7021-8, 88169-9 #### [facility] CLIA [id number] [address] [place] [address] 19472 MCHC (RBC) [Mass/Vol] 28.1 g/dL Low 30.5-36.0 [facility] Comment on above: Order Comment: Speci men Type: BLOOD SPECIMEN Ordering Facility: [facility] Address: [address] [place], [place] [address] Performed By: #### 5 7021-8, 97677-4 #### [facility] CLIA [id number] [address] [place] [address] 66780 MCV (RBC) [Entitic vol] 72.0 fL Low 80.0-100.0 [facility] Comment on above: Order Comment: Speci men Type: BLOOD SPECIMEN Ordering Facility: [facility] Address: [address] [place], [place] [address] Performed By: #### 5 7021-8, 75611-4 #### [facility] CLIA [id number] [address] [place] [address] Monocytes (Bld) [#/Vol] 0.48 10*3/uL Normal <0.87 [facility] Comment on above: Order Comment: Speci men Type: BLOOD SPECIMEN Ordering Facility: [facility] Address: [address] [place] [address] Performed By: #### 5 7021-8, 16719-2 #### [facility] CLIA [id number] [address] [place] [address] 25400 Monocytes/100 WBC (Bld) 5.3 % Normal [facility] Comment on above: Order Comment: Speci men Type: BLOOD SPECIMEN Ordering Facility: [facility] Address: [address] [place] [address] Performed By: #### 5 7021-8, 26940-9 #### [facility] CLIA [id number] [address] [place] [address] 36831 Neutrophils (Bld) [#/Vol] 6.02 10*3/uL Normal 1.45-7.50 [facility] Comment on above: Order Comment: Speci men Type: BLOOD SPECIMEN Ordering Facility: [facility] Address: [address] [place] [address] Performed By: #### 5 7021-8, 22844-5 #### [facility] CLIA [id number] [address] [place] [address] 84418 Neutrophils/100 WBC (Bld) 65.9 % Normal [facility] Comment on above: Order Comment: Speci men Type: BLOOD SPECIMEN Ordering Facility: [facility] Address: [address] [place], [place] [address] Performed By: #### 5 7021-8, 94351-7 #### [facility] CLIA [id number] [address] [place] [address] 91738 Nucleated RBC (Bld) [#/Vol] 10*3/uL Normal <0.01 [facility] Comment on above: Order Comment: Speci men Type: BLOOD SPECIMEN Ordering Facility: [facility] Address: [address] [place], [place] [address] Performed By: #### 5 7021-8, 82455-1 #### [facility] CLIA [id number] [address] [place] [address] 56261 Nucleated RBC/100 WBC (Bld) [Ratio] 0.0 /100 WBC Normal [facility] Comment on above: Order Comment: Speci men Type: BLOOD SPECIMEN Ordering Facility: [facility] Address: [address] [place], [place] [address] Performed By: #### 5 7021-8, 13974-8 #### [facility] CLIA [id number] [address] [place] [address] 02748 Platelet mean volume (Bld) [Entitic vol] 7.7 fL Low 9.0-12.7 [facility] Comment on above: Order Comment: Speci men Type: BLOOD SPECIMEN Ordering Facility: [facility] Address: [address] [place], [place] [address] Performed By: #### 5 7021-8, 08441-3 #### [facility] CLIA [id number] [address] [place] [address] 23180 Platelets (Bld) [#/Vol] 318 10*3/uL Normal 150-400 [facility] Comment on above: Order Comment: Speci men Type: BLOOD SPECIMEN Ordering Facility: [facility] Address: [address] [place], [place] [address] Performed By: #### 5 7021-8, 07484-2 #### [facility] CLIA [id number] [address] [place] [address] 53262 RBC (Bld) [#/Vol] 4.60 10*6/uL Normal 3.90-5.20 [facility] Comment on above: Order Comment: Speci men Type: BLOOD SPECIMEN Ordering Facility: [facility] Address: [address] [place], [place] [address] Performed By: #### 5 7021-8, 20627-3 #### [facility] CLIA [id number] [address] [place] [address] WBC (Bld) [#/Vol] 9.13 10*3/uL Normal 3.70-11.00 [facility] Comment on above: Order Comment: Speci men Type: BLOOD SPECIMEN Ordering Facility: [facility] Address: [facility] [place]note 2[facility] [place] [address] Performed By: #### 5 7021-8, 88505-8 #### [facility] CLIA [id number] [address] [place] [address] CNOVSPon 04-14-2022 CNOVSP Visit (SP) Office ([facility]) ROBINA RON ([id number]) 1950 F Date Time Provider Department 04/14/22 1:15 PM CHRITSI FINK During your visit today, we recorded the following information about you: Temperature Pulse Respiration Blood pressure 97.9 degrees 80/minute 16/minute 149/60 Weight Height 53.6 kg 1.524 m Christi Fink MD 04/14/2022 1:13 PM Signed PATIENT NAME: Robina Ron CLINIC NO.: [id number] ATTENDING PHYSICIAN: Christi Fink MD DATE OF [...] disease) (HCC) - CVA (cerebral vascular accident) ([facility]) - Diabetes mellitus (HCC) - Dyspnea - Factor V Leiden (HCC) - GERD (gastroesophageal reflux disease) - History of colon polyps - Hyperlipidemia - Hypertension - Hypokalemia - Leukocytosis - JARRET (obstructive sleep apnea) - PAD (peripheral artery disease) ([facility]) - Pericardial effusion Social History Tobacco [...] Date Valu (more content not included)... Normal [facility] CNPNon 04-14-2022 CNPN Telephone ([place]) ARIADNEROBINA ([id number]) 1950 F Date Time Provider Department 04/14/22 CHRISTY BYRD During your visit today, we recorded the following information about you: Christy Byrd RN 04/14/2022 1:25 PM Signed Key Monteiro from [facility] Client Services calls to report [...] [facility]. Call placed to their office ([phone]) and message left requesting a call back. PSS: can you please update pt's PCP info. Thanks, JOS Bustamante Pss 04/14/2022 2:03 PM Signed PCP updated in chart Makenna Kendall RN 04/17/2022 10:39 AM Signed Call placed to [facility]. Office is closed. JOS Bustamante RN 04/21/2022 12:55 PM Signed Message left with Dr Rainey's director global medical affairs again today regarding this pt and the urgency of this being addressed. Will try again later today if I don't hear back from their office. JOS Bustamante RN 04/21/2022 1:35 PM Signed Spoke with Pankaj at Dr Rainey's office. Recent records and labs faxed to [phone] per office request. JOS Bustamante RN 04/21/2022 [...] Status:Closed by MAKENNA KENDALL on 04/21/22 Normal [facility] Comprehensive metabolic 2000 panelon 04-14-2022 Albumin [Mass/Vol] 3.5 g/dL Low 3.9-4.9 [facility] Comment on above: Order Comment: Speci men Type: BLOOD SPECIMEN Ordering Facility: [facility] Address: [address] [address] Performed By: #### 2 4323-8 #### [facility] CLIA [id number] [address] [place] [address] 27956 ALP [Catalytic activity/Vol] 120 U/L Normal 34-123 [facility] Comment on above: Order Comment: Speci men Type: BLOOD SPECIMEN Ordering Facility: [facility] Address: [address] [address] Performed By: #### 2 4323-8 #### [facility] CLIA [id number] [address] [place] [address] 25041 ALT [Catalytic activity/Vol] 15 U/L Normal 7-38 [facility] Comment on above: Order Comment: Speci men Type: BLOOD SPECIMEN Ordering Facility: [facility] Address: [address] [address] Performed By: #### 2 4323-8 #### [facility] CLIA [id number] [address] [place] [address] 03036 Anion gap [Moles/Vol] 13 mmol/L Normal 9-18 [facility] Comment on above: Order Comment: Speci men Type: BLOOD SPECIMEN Ordering Facility: [facility] Address: [address] Performed By: #### 2 4323-8 #### [facility] CLIA [id number] [address] [place] [address] AST [Catalytic activity/Vol] 21 U/L Normal 13-35 [facility] Comment on above: Order Comment: Speci men Type: BLOOD SPECIMEN Ordering Facility: [facility] Address: [address] [place] [address] Performed By: #### 2 4323-8 #### [facility] CLIA [id number] [address] [place] [address] 09451 Bilirubin [Mass/Vol] 0.2 mg/dL Normal 0.2-1.3 [facility] Comment on above: Order Comment: Speci men Type: BLOOD SPECIMEN Ordering Facility: [facility] Address: [address] [place], [place] [address] Performed By: #### 2 4323-8 #### [facility] CLIA [id number] [address] [place] [address] 36861 Calcium [Mass/Vol] 9.1 mg/dL Normal 8.5-10.2 [facility] Comment on above: Order Comment: Speci men Type: BLOOD SPECIMEN Ordering Facility: [facility] Address: [address] [place], [place] [address] Performed By: #### 2 4323-8 #### [facility] CLIA [id number] [address] [place] [address] Chloride [Moles/Vol] 103 mmol/L Normal 97-105 [facility] Comment on above: Order Comment: Speci men Type: BLOOD SPECIMEN Ordering Facility: [facility] Address: [address] [place], [place] [address] Performed By: #### 2 4323-8 #### [facility] CLIA [id number] [address] [place] [address] CO2 [Moles/Vol] 22 mmol/L Normal 22-30 [facility] Comment on above: Order Comment: Speci men Type: BLOOD SPECIMEN Ordering Facility: [facility] Address: [address] [place] [address] Performed By: #### 2 4323-8 #### [facility] CLIA [id number] [address] [place] [address] 45413 Creatinine [Mass/Vol] 0.53 mg/dL Low 0.58-0.96 [facility] Comment on above: Order Comment: Speci men Type: BLOOD SPECIMEN Ordering Facility: [facility] Address: [address] [place] [address] Performed By: #### 2 4323-8 #### [facility] CLIA [id number] [address] [place] [address] 78263 ESTIMATED GLOMERULAR FILTRATION RATE 99 mL/min/1.73m??? Normal >=60 [facility] Comment on above: Order Comment: Speci men Type: BLOOD SPECIMEN Ordering Facility: [facility] Address: [address] [place] [address] Result Comment: Kaylynn mated Glomerular Filtration Rate [...] #### [facility] CLIA [id number] [address] [place] [address] 30179 Glucose [Mass/Vol] 508 mg/dL High 74-99 [facility] Comment on above: Order Comment: Speci men Type: BLOOD SPECIMEN Ordering Facility: [facility] Address: [address] [place] [address] Result Comment: The [place] [employer] (ADA) provides guidance for cutoff [...] Standards of Medical Care in Diabetes 2016, [place] [employer]. Diabetes Care. 2016.39(Suppl 1). Performed By: #### 2 4323-8 #### [facility] CLIA [id number] [address] [place] [address] 34876 Potassium [Moles/Vol] 3.6 mmol/L Low 3.7-5.1 [facility] Comment on above: Order Comment: Speci men Type: BLOOD SPECIMEN Ordering Facility: [facility] Address: [address] [place] [address] Performed By: #### 2 4323-8 #### [facility] CLIA [id number] [address] [place] [address] 32958 Protein [Mass/Vol] 5.4 g/dL Low 6.3-8.0 [facility] Comment on above: Order Comment: Speci men Type: BLOOD SPECIMEN Ordering Facility: [facility] Address: [address] [address] Performed By: #### 2 4323-8 #### [facility] CLIA [id number] [address] [place] [address] 80268 Sodium [Moles/Vol] 138 mmol/L Normal 136-144 [facility] Comment on above: Order Comment: Speci men Type: BLOOD SPECIMEN Ordering Facility: [facility] Address: [address] [address] Performed By: #### 2 4323-8 #### [facility] CLIA [id number] [address] [place] [address] [place] [address] Urea nitrogen [Mass/Vol] 8 mg/dL Normal 7-21 [facility] Comment on above: Order Comment: Speci men Type: BLOOD SPECIMEN Ordering Facility: [facility] Address: [address] [place] [address] Performed By: #### 2 4323-8 #### [facility] CLIA [id number] [address] [place] [address] 89425 Ferritin SerPl-mCncon 2021 Ferritin [Mass/Vol] 15.5 ng/mL Normal 14.7-205.1 [facility] Comment on above: Order Comment: Speci men Type: BLOOD SPECIMEN Ordering Facility[facility] Address: [address] [place] [address] Performed By: #### 2 276-4, 06378-6 #### [facility] CLIA [id number] [address] [place] [address] [place] GLUCOSE, BLOOD (POC)on 04-14 Glucose [Mass/Vol] 373 mg/dL Abnormal 74 - 99 mg/dL [facility] Iron and Iron binding capaci ty panelon 04-14-2022 Iron [Mass/Vol] 17 ug/dL Low 41-186 [facility] Comment on above: Order Comment: Speci men Type: BLOOD SPECIMEN Ordering Facility[facility] Address: [address] [place], [place] [address] Performed By: #### 2 276-4, 97327-4 #### [facility] CLIA [id number] [address] [place] [address] [place] Iron binding capacity [Mass/Vol] 337 ug/dL Normal 232-386 [facility] Comment on above: Order Comment: Speci men Type: BLOOD SPECIMEN Ordering Facility: [facility] Address: [address] [place], [place] [address] Performed By: #### 2 276-4, 66736-8 #### [facility] CLIA [id number] [address] [place] [address] [place] Iron/TIBC [Molar ratio] 5.0 % Low 15.0-57.0 [facility] Comment on above: Order Comment: Speci men Type: BLOOD SPECIMEN Ordering Facility[facility] Address: [address] [place] [address] Performed By: #### 2 276-4, 49150-1 #### [facility] CLIA [id number] [address] [place] [address] [place] Retics #on 04-14-2022 Reticulocytes (Bld) [#/Vol] 0.67797 10*3/uL Normal 0.018-0.100 [facility] Comment on above: Order Comment: Speci men Type: BLOOD SPECIMEN Ordering Facility: [facility] Address: [address] [place] [address] Performed By: #### 5 7021-8, 11870-8 #### [facility] CLIA [id number] [address] [place] [address] 28031 Reticulocytes (Bld) [#/Vol]o n 04-14-2022 Reticulocytes/100 RBC (Bld) 1.8 % Normal 0.4-2.0 [facility] Comment on above: Order Comment: Speci men Type: BLOOD SPECIMEN Ordering Facility: [facility] Address: [address] [place] [address] Performed By: #### 5 7021-8, 62976-2 #### [facility] CLIA [id number] [address] [place] [address] 75321 CBC AUTO DIFFon 04-08-2022 BASO # 0.0 103/ul Normal 0.0-0.1 [facility] Comment on above: Performed By: #### A 1C #### [facility] [address] [place] [address] Julisa Lowe Basophils/100 WBC (Bld) 0.4 % Normal 0.2-2.0 [facility] Comment on above: Performed By: #### A 1C #### [facility] [address] [place] [address] Dr. Julisa Lowe EO # 0.2 103/ul Normal 0.0-0.7 [facility] Comment on above: Performed By: #### A 1C #### [facility] [address] [place] [address] Dr. Julisa Lowe Eosinophils/100 WBC (Bld) 1.7 % Normal 0.9-7.0 [facility] Comment on above: Performed By: #### A 1C #### [facility] [address] [place] [address] Dr. Julisa Lowe Erythrocyte distribution width (RBC) [Ratio] 20.8 % Critically high 11.0-15.0 [facility] Comment on above: Performed By: #### A 1C #### [facility] [address] [place] [address] Dr. Julisa Lowe Hematocrit (Bld) [Volume fraction] 34.9 % Critically low 36.0-48.0 [facility] Comment on above: Performed By: #### A 1C #### [facility] [address] [place] [address] Dr. Julisa Lowe Hemoglobin (Bld) [Mass/Vol] 10.0 g/dL Critically low 12.0-16.0 [facility] Comment on above: Performed By: #### A 1C #### [facility] [address] [place] [address] Dr. Julisa Lowe IG # 0.08 10e3/ul Critically high 0.00-0.03 [facility] Comment on above: Performed By: #### A 1C #### [facility] [address] [place] [address] Dr. Julisa Lowe IG % 0.7 % Critically high 0.0-0.5 [facility] Comment on above: Performed By: #### A 1C #### [facility] [address] [place] [address] Dr. Julisa Lowe LYMPH # 3.6 103/ul Normal 1.2-3.8 [facility] Comment on above: Performed By: #### A 1C #### [facility] [address] [place] [address] Dr. Julisa Lowe Lymphocytes/100 WBC (Bld) 33.3 % Normal 20.5-60.0 [facility] Comment on above: Performed By: #### A 1C #### [facility] [address] [place] [address] Dr. Julisa Lowe MANUAL DIFF REQ NO Normal [facility] Comment on above: Performed By: #### A 1C #### [facility] [address] [place] [address] Dr. Julisa Lowe MCH (RBC) [Entitic mass] 20.2 pg Critically low 26.7-34.0 [facility] Comment on above: Performed By: #### A 1C #### [facility] [address] [place] [address] Dr. Julisa Lowe MCHC (RBC) [Mass/Vol] 28.7 g/dL Critically low 29.9-35.2 [facility] Comment on above: Performed By: #### A 1C #### [facility] [address] [place] [address] Dr. Julisa Lowe MCV (RBC) [Entitic vol] 70.6 fL Critically low 81.0-99.0 [facility] Comment on above: Performed By: #### A 1C #### [facility] [address] [place] [address] Dr. Julisa Lowe MONO # 0.6 103/ul Normal 0.3-0.8 [facility] Comment on above: Performed By: #### A 1C #### [facility] [address] [place] [address] Dr. Julisa Lowe Monocytes/100 WBC (Bld) 5.4 % Normal 1.7-12.0 [facility] Comment on above: Performed By: #### A 1C #### [facility] [address] [place] [address] Dr. Julisa Lowe NEUT # 6.4 103/ul Normal 1.4-6.5 [facility] Comment on above: Performed By: #### A 1C #### [facility] [address] [place] [address] Dr. Julisa Lowe Neutrophils/100 WBC (Bld) 58.5 % Normal 43.0-75.0 [facility] Comment on above: Performed By: #### A 1C #### [facility] [address] [place] [address] Dr. Julisa Lowe Platelet mean volume (Bld) [Entitic vol] 8.1 fL Critically low 9.5-13.5 [facility] Comment on above: Performed By: #### A 1C #### [facility] [address] [place] [address] Dr. Julisa Lowe PLT 325 103/ul Normal 150-450 [facility] Comment on above: Performed By: #### A 1C #### [facility] [address] [place] [address] Dr. Julisa Lowe RBC 4.94 106/ul Normal 4.20-5.40 [facility] Comment on above: Performed By: #### A 1C #### [facility] [address] [place] [address] Dr. Julisa Lowe WBC 10.9 103/ul Normal 4.0-11.0 [facility] Comment on above: Performed By: #### A 1C #### [facility] [address] [place] [address] Dr. Julisa Lowe FERRITINon 04-08-2022 Ferritin [Mass/Vol] 15.0 ng/mL Normal 8.0-252.0 [facility] Comment on above: Performed By: #### A 1C #### [facility] [address] [place] [address] Dr. Julisa Lowe CNPBelen 04-06-2022 CNPN Telephone (NCCAP) ROBINA RON ([id number]) 1950 F Date Time Provider Department 04/06/22 CHRISTI FINK During your visit today, we recorded the following information about you: Makenna Grahamkins Sec 04/06/2022 7:49 AM Signed Please send records to [facility] office thanks! MD Dorota Thompsontru Carpio; Makenna Grahamkins Sec Please refer her to GI for an upper endoscopy. ?Thanks Adrienne Weinstein [facility] 04/06/2022 8:12 AM Signed Gladys: Information ready for you. Adrienne [facility] Shayeangélica Gonzalez [facility] 04/06/2022 8:57 AM Signed Records faxed to Dr. Rich. Adrienne Weinstein [facility] 04/09/2022 8:40 AM Signed Called Angélica Romano spoke with Kenyatta. She states they have received this referral and their referral dept will be calling patient soon to schedule. I will call back sometime next week check on status of this referral. [facility] 04/13/2022 1:18 PM Signed Called Angélica Romano spoke with Kenyatta. She states they have called left patient message to call them back to schedule. Adrienne [facility] 04/16/2022 9:07 AM Signed Called Angélica Romano spoke with Kenyatta. She states they have patient scheduled to see Dr Patel on 05/12 for EGD. Adrienne [facility] Allergies As of Date: 04/06/2022 Noted Allergy Reaction PERCOCET (OXYCODONE-ACETAMINOP HEN)03/31/2016 1 - Mental Status Change 10 - Anaphylaxis SPIRIVA WITH HANDIHALER (TIOTROPI*03/31/2016 16 - Unknown SYMBICORT (BUDESONIDE-FORMOTERO L) 03/31/2022 14 - Other: See Comments Comments: Tongue swelling Date Reviewed: 04/04/2022 Reviewed by: Christi Fink MD - Fully Assessed Reason for Visit: Appointment Confirmation [[id number]] Prescriptions as of 04/16/2022 - insulin NPH [...] chronic blood los*04/03/2022 Encounter Status:Closed by TJ CARPIO on 04/16/22 [facility] CNOVSPon 04-03-2022 OVS Visit (SP) Office ([place]) ROBINA RON ([id number]) 1950 F Date Time Provider Department 04/03/22 4:30 PM CHRISTI FINK During your visit today, we recorded the following information about you: Temperature Pulse Respiration Blood pressure 97.4 degrees 90/minute 16/minute 107/38 Weight Height 53.6 kg 1.524 m Christi Fink MD 04/04/2022 11:07 AM Signed PATIENT NAME: Robina Ron CLINIC NO.: [id number] ATTENDING PHYSICIAN: Christi Fink MD DATE OF [...] not taking: Reported on 03/31/2022 ) - [id number]-EPA-Fish Oil 1,000 mg (120 mg-180 mg) cap [...] [Oxycodone* Mental (more content not included)... Normal [facility] ECHO LIMITED STUDYon 022 ECHO LIMITED STUDY Patient: ROBINA RON Exam Date: 02/06/2022 : 1950 Gender:F Ordering : EDD WADE Admission #: [id number] Family : Order #: [id number] CLICK HERE TO VIEW EXAM ECHOCARDIOGRAM REPORT [...] Area(A4C): 21.60 cm2 Left Atrium Systolic Volume(A2C): 53746 mm3 Left Atrium Systolic Volume(A4C): 79607 mm3 Mitral Valve Right Ventricle Aorta AO Root Diam: 3.10 cm Aortic Valve Tricuspid Valve Pulmonic Valve Right Atrium Dictated by: Alfred Suggs M.D. on 02/06/2022 at 15:55 Approved by: Alfred Suggs M.D. on 02/06/2022 at 16:11 Normal [facility] CBC AUTO DIFFon 01-23-2022 BASO # 0.0 103/ul Normal 0.0-0.1 [facility] Comment on above: Performed By: #### A 1C #### [facility] [address] [place] [address] Dr. Julisa Lowe Basophils/100 WBC (Bld) 0.3 % Normal 0.2-2.0 [facility] Comment on above: Performed By: #### A 1C #### [facility] [address] [place] [address] Dr. Julisa Lowe EO # 0.1 103/ul Normal 0.0-0.7 [facility] Comment on above: Performed By: #### A 1C #### [facility] [address] [place] [address] Dr. Julisa Lowe Eosinophils/100 WBC (Bld) 1.0 % Normal 0.9-7.0 [facility] Comment on above: Performed By: #### A 1C #### [facility] [address] [place] [address] Dr. Julisa Lowe Erythrocyte distribution width (RBC) [Ratio] 18.6 % Critically high 11.0-15.0 [facility] Comment on above: Performed By: #### A 1C #### [facility] [address] [address] [address] Julisa Lowe Hematocrit (Bld) [Volume fraction] 29.6 % Critically low 36.0-48.0 [facility] Comment on above: Performed By: #### A 1C #### [facility] [address] [place] [address] Dr. Julisa Lowe Hemoglobin (Bld) [Mass/Vol] 8.5 g/dL Critically low 12.0-16.0 [facility] Comment on above: Performed By: #### A 1C #### [facility] [address] [place] [address] Dr. Julisa Lowe IG # 0.09 10e3/ul Critically high 0.00-0.03 [facility] Comment on above: Performed By: #### A 1C #### [facility] [address] [place] [address] Dr. Julisa Lowe IG % 0.7 % Critically high 0.0-0.5 [facility] Comment on above: Performed By: #### A 1C #### [facility] [address] [place] [address] Dr. Julisa Lowe LYMPH # 3.2 103/ul Normal 1.2-3.8 [facility] Comment on above: Performed By: #### A 1C #### [facility] [address] [place] [address] Dr. Julisa Lowe Lymphocytes/100 WBC (Bld) 25.5 % Normal 20.5-60.0 [facility] Comment on above: Performed By: #### A 1C #### [facility] [address] [place] [address] Dr. Julisa Lowe MANUAL DIFF REQ NO Normal [facility] Comment on above: Performed By: #### A 1C #### [facility] [address] [place] [address] Dr. Julisa Lowe MCH (RBC) [Entitic mass] 20.2 pg Critically low 26.7-34.0 [facility] Comment on above: Performed By: #### A 1C #### [facility] [address] [place] [address] Dr. Julisa Lowe MCHC (RBC) [Mass/Vol] 28.7 g/dL Critically low 29.9-35.2 [facility] Comment on above: Performed By: #### A 1C #### [facility] [address] [address] [address] Julisa Lowe MCV (RBC) [Entitic vol] 70.5 fL Critically low 81.0-99.0 [facility] Comment on above: Performed By: #### A 1C #### [facility] [address] [address] [address] Julisa Lowe MONO # 0.6 103/ul Normal 0.3-0.8 [facility] Comment on above: Performed By: #### A 1C #### [facility] [address] [place] [address] Dr. Julisa Lowe Monocytes/100 WBC (Bld) 4.8 % Normal 1.7-12.0 [facility] Comment on above: Performed By: #### A 1C #### [facility] [address] [place] [address] Dr. Julisa Lowe NEUT # 8.4 103/ul Critically high 1.4-6.5 [facility] Comment on above: Performed By: #### A 1C #### [facility] [address] [place] [address] Dr. Julisa Lowe Neutrophils/100 WBC (Bld) 67.7 % Normal 43.0-75.0 [facility] Comment on above: Performed By: #### A 1C #### [facility] [address] [address] [address] Julisa Lowe Platelet mean volume (Bld) [Entitic vol] 7.9 fL Critically low 9.5-13.5 [facility] Comment on above: Performed By: #### A 1C #### [facility] [address] [place] [address] Dr. Julisa Lowe PLT 252 103/ul Normal 150-450 [facility] Comment on above: Performed By: #### A 1C #### [facility] [address] [place] [address] Dr. Julisa Lowe RBC 4.20 106/ul Normal 4.20-5.40 [facility] Comment on above: Performed By: #### A 1C #### [facility] [address] [address] [address] Julisa Lowe WBC 12.4 103/ul Critically high 4.0-11.0 [facility] Comment on above: Performed By: #### A 1C #### [facility] [address] [place] [address] Dr. Julisa Lowe FERRITINon 01-23-2022 Ferritin [Mass/Vol] 7.0 ng/mL Critically low 8.0-252.0 [facility] Comment on above: Performed By: #### P OCGLUC #### [facility] [address] [place] [address] Dr. Julisa Lowe GLYCOHEMOGLOBIN A1Con 2021 ADA RECOMMENDATION SEE BELOW Normal [facility] Comment on above: Result Comment: ADA RECOMMENDED LIMIT 4.0 - 6.0 ADA THERAPEUTIC TARGET < 7.0 ACTION SUGGESTED > 7.0 Performed By: #### A 1C #### [facility] [address] [place] [address] Dr. Julisa Lowe Glucose [Mass/Vol] 197 mg/dL Normal [facility] Comment on above: Performed By: #### A 1C #### [facility] [address] [place] [address] Dr. Julisa Lowe HbA1c (Bld) [Mass fraction] 8.5 % Critically high 4.5-6.2 [facility] Comment on above: Performed By: #### A 1C #### [facility] [address] [place] [address] Dr. Julisa Lowe TSHon 01-23-2022 TSH 0.501 uIU/mL Normal 0.358-3.740 [facility] Comment on above: Performed By: #### A 1C #### [facility] [address] [place] [address] Dr. Julisa Lowe TSH RANGE SEE BELOW Normal [facility] Comment on above: Result Comment: <0.3 4 UIU/ml HYPERTHYROID 0.34-5.60 UIU/ml EUTHYROID >5.60 UIU/ml HYPOTHYROID Performed By: #### A 1C #### [facility] [address] [place] [address] Dr. Julisa Lowe VIT B12 AND FOLATEon 022 Cobalamin (Vitamin B12) [Mass/Vol] 193.0 pg/mL Normal 193.0-986.0 [facility] Comment on above: Performed By: #### P OCGLUC #### [facility] [address] [place] [address] Dr. Julisa Lowe FOLATE 12.90 ng/mL Normal 8.60-58.90 [facility] Comment on above: Performed By: #### P OCGLUC #### [facility] [address] [place] [address] Dr. Julisa Lowe CULTURE URINEon 12-23-2021 CULTURE [...] Trimethoprim/Sulfamet hoxazole >=320 R F Normal [facility] Comment on above: Performed By: #### H STROPN #### [facility] [address] [place] [address] Dr. Julisa Lowe NM STRESS/REST MULTIon 12-22 NM STRESS/REST MULTI Patient: ROBINA RON Exam Date: 12/22/2021 : 1950 Gender:F Ordering : EDD WADE Admission #: [id number] Family : DR ESTUARDO SANCHEZ . Order #: [id number] CLICK HERE TO VIEW EXAM RADIOLOGY REPORT [...] M.D. on 12/22/2021 at 12:45 Normal [facility] CBC AUTO DIFFon 12-21-2021 BASO # 0.0 103/ul Normal 0.0-0.1 [facility] Comment on above: Performed By: #### A 1C #### [facility] [address] [place] [address] Dr. Julisa Lowe Basophils/100 WBC (Bld) 0.4 % Normal 0.2-2.0 [facility] Comment on above: Performed By: #### A 1C #### [facility] [address] [address] [address] Julisa Lowe EO # 0.1 103/ul Normal 0.0-0.7 [facility] Comment on above: Performed By: #### A 1C #### [facility] [address] [place] [address] Dr. Julisa Lowe Eosinophils/100 WBC (Bld) 1.3 % Normal 0.9-7.0 [facility] Comment on above: Performed By: #### A 1C #### [facility] [address] [place] [address] Dr. Julisa Lowe Erythrocyte distribution width (RBC) [Ratio] 19.7 % Critically high 11.0-15.0 [facility] Comment on above: Performed By: #### A 1C #### [facility] [address] [place] [address] Dr. Julisa Lowe Hematocrit (Bld) [Volume fraction] 31.6 % Critically low 36.0-48.0 [facility] Comment on above: Performed By: #### A 1C #### [facility] [address] [place] [address] Dr. Julisa Lowe Hemoglobin (Bld) [Mass/Vol] 9.2 g/dL Critically low 12.0-16.0 [facility] Comment on above: Performed By: #### A 1C #### [facility] [address] [place] [address] Dr. Julisa Lowe IG # 0.07 10e3/ul Critically high 0.00-0.03 [facility] Comment on above: Performed By: #### A 1C #### [facility] [address] [place] [address] Dr. Julisa Lowe IG % 0.7 % Critically high 0.0-0.5 [facility] Comment on above: Performed By: #### A 1C #### [facility] [address] [place] [address] Dr. Julisa Lowe LYMPH # 3.2 103/ul Normal 1.2-3.8 [facility] Comment on above: Performed By: #### A 1C #### [facility] [address] [place] [address] Dr. Julisa Lowe Lymphocytes/100 WBC (Bld) 30.8 % Normal 20.5-60.0 [facility] Comment on above: Performed By: #### A 1C #### [facility] [address] [place] [address] Dr. Julisa Lowe MANUAL DIFF REQ NO Normal [facility] Comment on above: Performed By: #### A 1C #### [facility] [address] [address] [address] Julisa Lowe MCH (RBC) [Entitic mass] 20.4 pg Critically low 26.7-34.0 [facility] Comment on above: Performed By: #### A 1C #### [facility] [address] [place] [address] Dr. Julisa Lowe MCHC (RBC) [Mass/Vol] 29.1 g/dL Critically low 29.9-35.2 [facility] Comment on above: Performed By: #### A 1C #### [facility] [address] [place] [address] Dr. Julisa Lowe MCV (RBC) [Entitic vol] 69.9 fL Critically low 81.0-99.0 [facility] Comment on above: Performed By: #### A 1C #### [facility] [address] [place] [address] Dr. Julisa Lowe MONO # 0.8 103/ul Normal 0.3-0.8 [facility] Comment on above: Performed By: #### A 1C #### [facility] [address] [place] [address] Dr. Julisa Lowe Monocytes/100 WBC (Bld) 7.3 % Normal 1.7-12.0 [facility] Comment on above: Performed By: #### A 1C #### [facility] [address] [place] [address] Dr. Julisa Lowe NEUT # 6.2 103/ul Normal 1.4-6.5 [facility] Comment on above: Performed By: #### A 1C #### [facility] [address] [place] [address] Dr. Julisa Lowe Neutrophils/100 WBC (Bld) 59.5 % Normal 43.0-75.0 [facility] Comment on above: Performed By: #### A 1C #### [facility] [address] [place] [address] Dr. Julisa Lowe Platelet mean volume (Bld) [Entitic vol] 8.4 fL Critically low 9.5-13.5 [facility] Comment on above: Performed By: #### A 1C #### [facility] [address] [address] [address] Julisa Lowe PLT 301 103/ul Normal 150-450 [facility] Comment on above: Performed By: #### A 1C #### [facility] [address] [address] [address] Julisa Lowe RBC 4.52 106/ul Normal 4.20-5.40 [facility] Comment on above: Performed By: #### A 1C #### [facility] [address] [address] [address] Julisa Lowe WBC 10.4 103/ul Normal 4.0-11.0 [facility] Comment on above: Performed By: #### A 1C #### [facility] [address] [place] [address] Dr. Julisa Lowe POINT OF CARE GLUCOSEon 12-12 Glucose [Mass/Vol] 183 mg/dL Critically high 74-106 [facility] Comment on above: Performed By: #### P OCGLUC #### [facility] [address] [address] [address] Julisa Lowe Glucose [Mass/Vol] 351 mg/dL Critically high 74-106 [facility] Comment on above: Performed By: #### H STROPN #### [facility] [address] [place] [address] Dr. Julisa Lowe PROF CHEM 8 (BAS METB)on Anion gap [Moles/Vol] 14.6 mmol/L Normal [facility] Comment on above: Performed By: #### S EDR #### [facility] [address] [address] [address] Julisa Lowe Calcium [Mass/Vol] 8.6 mg/dL Normal 8.5-10.1 [facility] Comment on above: Performed By: #### S EDR #### [facility] [address] [address] [address] Julisa Lowe Chloride [Moles/Vol] 107 mmol/L Normal 98-107 [facility] Comment on above: Performed By: #### S EDR #### [facility] [address] [address] [address] Julisa Lowe CO2 [Moles/Vol] 24.6 mmol/L Normal 22.0-30.0 [facility] Comment on above: Performed By: #### S EDR #### [facility] [address] [address] [address] Julisa Lowe Creatinine [Mass/Vol] 0.57 mg/dL Normal 0.52-1.04 [facility] Comment on above: Performed By: #### S EDR #### [facility] [address] [address] [address] Julisa Lowe EGFR-AF NICARAGUAN >60 Normal >=60 [facility] Comment on above: Performed By: #### S EDR #### [facility] [address] [address] [address] Julisa Lowe EGFR-NON AF NICARAGUAN >60 Normal >=60 [facility] Comment on above: Performed By: #### S EDR #### [facility] [address] [address] [address] Julisa Lowe Glucose [Mass/Vol] 189 mg/dL Critically high 74-106 [facility] Comment on above: Performed By: #### S EDR #### [facility] [address] [address] [address] Julisa Lowe Potassium [Moles/Vol] 4.2 mmol/L Normal 3.4-5.0 [facility] Comment on above: Performed By: #### S EDR #### [facility] [address] [address] [address] Julisa Lowe Sodium [Moles/Vol] 142 mmol/L Normal 137-145 [facility] Comment on above: Performed By: #### S EDR #### [facility] [address] [address] [address] Julisa Lowe Urea nitrogen [Mass/Vol] 16.0 mg/dL Normal 7.0-18.0 [facility] Comment on above: Performed By: #### S EDR #### [facility] [address] [address] [address] Julisa Lowe Urea nitrogen/Creatinine [Mass ratio] 28.1 mg/mg Normal [facility] Comment on above: Performed By: #### S EDR #### [facility] [address] [place] [address] Dr. Julisa Lowe BNPon 12-20-2021 Natriuretic peptide B (Bld) [Mass/Vol] 880.0 pg/mL Normal <=900.0 [facility] Comment on above: Performed By: #### H STROPN #### [facility] [address] [place] [address] Dr. Julisa Lowe CARDIAC TRUONG ADMITon 022 CK <20 Critically low 30-135 [facility] Comment on above: Performed By: #### H STROPN #### [facility] [address] [place] [address] Dr. Julisa Lowe CK.MB [Mass/Vol] ng/mL Normal <=2.37 [facility] Comment on above: Performed By: #### H STROPN #### [facility] [address] [place] [address] Dr. Julisa Lowe HSTROP 15.1 pg/mL Normal 4.0-35.5 [facility] Comment on above: Result Comment: CUT- OFF POINTS HAVE BEEN ESTABLISHED BASED ON THE FOURTH UNIVERSAL DEFINITIONS OF MYOCARDIAL INFARCTION. THE UPPER REFERENCE LIMIT (URL) OF TROPONIN, DEFINED THE 99TH PERCENTILE OF cTnI DISTRIBUTION IN A REFERENCE POPULATION, HAS BEEN CONFIRMED THE DECISION THRESHOLD FOR MO DIAGNOSIS. Performed By: #### H STROPN #### [facility] [address] [place] [address] Dr. Julisa Lowe RAJ 24.0 ng/mL Normal <=61.5 [facility] Comment on above: Performed By: #### H STROPN #### [facility] [address] [place] [address] Dr. Julisa Lowe CBC AUTO DIFFon 12-20-2021 BASO # 0.1 103/ul Normal 0.0-0.1 [facility] Comment on above: Performed By: #### S EDR #### [facility] [address] [address] [address] Julisa Lowe Basophils/100 WBC (Bld) 0.5 % Normal 0.2-2.0 [facility] Comment on above: Performed By: #### S EDR #### [facility] [address] [address] [address] Julisa Lowe EO # 0.1 103/ul Normal 0.0-0.7 [facility] Comment on above: Performed By: #### S EDR #### [facility] [address] [address] [address] Julisa Lowe Eosinophils/100 WBC (Bld) 1.0 % Normal 0.9-7.0 [facility] Comment on above: Performed By: #### S EDR #### [facility] [address] [place] [address] Dr. Julisa Lowe Erythrocyte distribution width (RBC) [Ratio] 19.8 % Critically high 11.0-15.0 [facility] Comment on above: Result Comment: slig ht poikilocytosis, moderate anisocytosis, Performed By: #### S EDR #### [facility] [address] [place] [address] Dr. Julisa Lowe Hematocrit (Bld) [Volume fraction] 32.7 % Critically low 36.0-48.0 [facility] Comment on above: Performed By: #### S EDR #### [facility] [address] [address] [address] Julisa Lowe Hemoglobin (Bld) [Mass/Vol] 9.6 g/dL Critically low 12.0-16.0 [facility] Comment on above: Performed By: #### S EDR #### [facility] [address] [place] [address] Dr. Julisa Lowe IG # 0.07 10e3/ul Critically high 0.00-0.03 [facility] Comment on above: Performed By: #### S EDR #### [facility] [address] [place] [address] Dr. Julisa Lowe IG % 0.7 % Critically high 0.0-0.5 [facility] Comment on above: Performed By: #### S EDR #### [facility] [address] [place] [address] Dr. Julisa Lowe LYMPH # 3.1 103/ul Normal 1.2-3.8 [facility] Comment on above: Performed By: #### S EDR #### [facility] [address] [place] [address] Dr. Julisa Lowe Lymphocytes/100 WBC (Bld) 29.7 % Normal 20.5-60.0 [facility] Comment on above: Performed By: #### S EDR #### [facility] [address] [place] [address] Dr. Julisa Lowe MANUAL DIFF REQ NO Normal [facility] Comment on above: Performed By: #### S EDR #### [facility] [address] [place] [address] Dr. Julisa Lowe MCH (RBC) [Entitic mass] 20.5 pg Critically low 26.7-34.0 [facility] Comment on above: Performed By: #### S EDR #### [facility] [address] [place] [address] Dr. Julisa Lowe MCHC (RBC) [Mass/Vol] 29.4 g/dL Critically low 29.9-35.2 [facility] Comment on above: Performed By: #### S EDR #### [facility] [address] [place] [address] Dr. Julisa Lowe MCV (RBC) [Entitic vol] 69.9 fL Critically low 81.0-99.0 [facility] Comment on above: Result Comment: few ovalocytes, moderate hypochromasia Performed By: #### S EDR #### [facility] [address] [place] [address] Dr. Julisa Lowe MONO # 0.6 103/ul Normal 0.3-0.8 [facility] Comment on above: Performed By: #### S EDR #### [facility] [address] [address] [address] Julisa Lowe Monocytes/100 WBC (Bld) 5.6 % Normal 1.7-12.0 [facility] Comment on above: Performed By: #### S EDR #### [facility] [address] [place] [address] Dr. Julisa Lowe NEUT # 6.5 103/ul Normal 1.4-6.5 [facility] Comment on above: Performed By: #### S EDR #### [facility] [address] [place] [address] Dr. Julisa Lowe Neutrophils/100 WBC (Bld) 62.5 % Normal 43.0-75.0 [facility] Comment on above: Performed By: #### S EDR #### [facility] [address] [place] [address] Dr. Julisa Lowe Platelet mean volume (Bld) [Entitic vol] 8.8 fL Critically low 9.5-13.5 [facility] Comment on above: Performed By: #### S EDR #### [facility] [address] [place] [address] Dr. Julisa Lowe PLT 280 103/ul Normal 150-450 [facility] Comment on above: Performed By: #### S EDR #### [facility] [address] [place] [address] Dr. Julisa Lowe RBC 4.68 106/ul Normal 4.20-5.40 [facility] Comment on above: Performed By: #### S EDR #### [facility] [address] [place] [address] Dr. Julisa Lowe WBC 10.5 103/ul Normal 4.0-11.0 [facility] Comment on above: Performed By: #### S EDR #### [facility] [address] [place] [address] Dr. Julisa Lowe [facility]on SARS-CoV-2 (COVID-19) RNA CHALINO+probe Ql (Unsp spec) Not detected Normal NOT DETECTED [facility] Comment on above: Result Comment: When diagnostic [...] for this test is supported by the Superannuation Clerk of Health and Human Service's declaration that [...] used). Performed By: #### P OCGLUC #### [facility] [address] [place] [address] Dr. Julisa Lowe ER URINE PROFILEon 2 Bilirubin Ql (U) Negative Normal NEGATIVE [facility] Comment on above: Performed By: #### S EDR #### [facility] [address] [place] [address] Dr. Julisa Lowe Clarity (U) SL CLOUDY Abnormal CLEAR [facility] Comment on above: Performed By: #### S EDR #### [facility] [address] [place] [address] Dr. Julisa Lowe Color (U) LT. YELLOW Normal YELLOW [facility] Comment on above: Performed By: #### S EDR #### [facility] [address] [place] [address] Dr. Julisa Lowe ERUAHD A micrscopic examination will be performed if indicated. Normal [facility] Comment on above: Performed By: #### S EDR #### [facility] [address] [place] [address] Dr. Julisa Lowe Glucose Ql (U) Negative Normal NEGATIVE [facility] Comment on above: Performed By: #### S EDR #### [facility] [address] [place] [address] Dr. Julisa Lowe Hemoglobin Ql (U) Negative Normal NEGATIVE [facility] Comment on above: Performed By: #### S EDR #### [facility] [address] [place] [address] Dr. Julisa Lowe Ketones Ql (U) Negative Normal NEGATIVE [facility] Comment on above: Performed By: #### S EDR #### [facility] [address] [place] [address] Dr. Julisa Lowe LEUKOCYTES TRACE Abnormal NEGATIVE [facility] Comment on above: Performed By: #### S EDR #### [facility] [address] [place] [address] Dr. Julisa Lowe Nitrite Ql (U) Negative Normal NEGATIVE [facility] Comment on above: Performed By: #### S EDR #### [facility] [address] [place] [address] Dr. Julisa Lowe pH (U) 7.5 [pH] Normal 5-9 [facility] Comment on above: Performed By: #### S EDR #### [facility] [address] [place] [address] Dr. Julisa Lowe Protein (U) [Mass/Vol] 100 mg/dL Abnormal NEGAT CRISTOPHER/ TRACE [facility] Comment on above: Performed By: #### S EDR #### [facility] [address] [place] [address] Dr. Julisa Lowe SPEC GRAVITY 1.020 Normal 1.005-<=1.025 [facility] Comment on above: Performed By: #### S EDR #### [facility] [address] [place] [address] Dr. Julisa Lowe UR MICRO IND INDICATED Normal [facility] Comment on above: Performed By: #### S EDR #### [facility] [address] [place] [address] Dr. Julisa Lowe Urobilinogen Qn (U) 0.2 {[place]'U}/dL Normal 0.2 - 1. 0 [facility] Comment on above: Performed By: #### S EDR #### [facility] [address] [address] [address] Julisa Lowe POINT OF CARE GLUCOSEon 04-0 Glucose [Mass/Vol] 145 mg/dL Critically high 74-106 [facility] Comment on above: Performed By: #### S EDR #### [facility] [address] [place] [address] Dr. Julisa Lowe PROF 14(COMP METB)on 022 Albumin [Mass/Vol] 3.0 g/dL Critically low 3.4-5.[address] [facility] Comment on above: Performed By: #### H STROPN #### [facility] [address] [place] [address] Dr. Julisa Lowe Albumin/Globulin [Mass ratio] 1.0 {ratio} Normal [facility] Comment on above: Performed By: #### H STROPN #### [facility] [address] [place] [address] Dr. Julisa Lowe ALP [Catalytic activity/Vol] 110 U/L Normal 46-116 [facility] Comment on above: Performed By: #### H STROPN #### [facility] [address] [place] [address] Dr. Julisa Lowe ALT [Catalytic activity/Vol] 18 U/L Normal 14-59 [facility] Comment on above: Performed By: #### H STROPN #### [facility] [address] [place] [address] Dr. Julisa Lowe Anion gap [Moles/Vol] 13.4 mmol/L Normal [facility] Comment on above: Performed By: #### H STROPN #### [facility] [address] [place] [address] Dr. Julisa Lowe AST [Catalytic activity/Vol] 8 U/L Critically low 15-37 [facility] Comment on above: Performed By: #### H STROPN #### [facility] [address] [place] [address] Dr. Julisa Lowe Bilirubin [Mass/Vol] 0.3 mg/dL Normal 0.2-1.3 [facility] Comment on above: Performed By: #### H STROPN #### [facility] [address] [address] [address] Julisa Lowe Calcium [Mass/Vol] 8.5 mg/dL Normal 8.5-10.1 [facility] Comment on above: Performed By: #### H STROPN #### [facility] [address] [address] [address] Julisa Lowe Chloride [Moles/Vol] 106 mmol/L Normal 98-107 [facility] Comment on above: Performed By: #### H STROPN #### [facility] [address] [address] [address] Julisa Lowe CO2 [Moles/Vol] 26.3 mmol/L Normal 22.0-30.0 [facility] Comment on above: Performed By: #### H STROPN #### [facility] [address] [place] [address] Dr. Julisa Lowe Creatinine [Mass/Vol] 0.52 mg/dL Normal 0.52-1.04 [facility] Comment on above: Performed By: #### H STROPN #### [facility] [address] [place] [address] Dr. Julisa Lowe EGFR-AF NICARAGUAN >60 Normal >=60 [facility] Comment on above: Performed By: #### H STROPN #### [facility] [address] [place] [address] Dr. Julisa Lowe EGFR-NON AF NICARAGUAN >60 Normal >=60 [facility] Comment on above: Performed By: #### H STROPN #### [facility] [address] [place] [address] Dr. Julisa Lowe Globulin (S) [Mass/Vol] 3.0 g/dL Normal [facility] Comment on above: Performed By: #### H STROPN #### [facility] [address] [address] [address] Julisa Lowe Glucose [Mass/Vol] 147 mg/dL Critically high 74-106 [facility] Comment on above: Performed By: #### H STROPN #### [facility] [address] [place] [address] Dr. Julisa Lowe Potassium [Moles/Vol] 3.7 mmol/L Normal 3.4-5.0 [facility] Comment on above: Performed By: #### H STROPN #### [facility] [address] [place] [address] Dr. Julisa Lowe Protein [Mass/Vol] 6.0 g/dL Critically low 6.1-8.2 [facility] Comment on above: Performed By: #### H STROPN #### [facility] [address] [place] [address] Dr. Julisa Lowe Sodium [Moles/Vol] 142 mmol/L Normal 137-145 [facility] Comment on above: Performed By: #### H STROPN #### [facility] [address] [place] [address] Dr. Julisa Lowe Urea nitrogen [Mass/Vol] 13.0 mg/dL Normal 7.0-18.0 [facility] Comment on above: Performed By: #### H STROPN #### [facility] [address] [place] [address] Dr. Julisa Lowe Urea nitrogen/Creatinine [Mass ratio] 25.0 mg/mg Normal [facility] Comment on above: Performed By: #### H STROPN #### [facility] [address] [place] [address] Dr. Julisa Lowe PROTIMEon 12-20-2021 INR Coag (PPP) [Relative time] 0.94 {INR} Normal [facility] Comment on above: Performed By: #### S EDR #### [facility] [address] [place] [address] Dr. Julisa Lowe INR GUIDELINES SEE BELOW Normal [facility] Comment on above: Result Comment: NHI RED INR: 2.0 - 3.0 CONDITIONS NOT LISTED BELOW 2.5 - 3.5 FOR PROSTHETIC HEART VALVE REPLACEMENT 2.5 - 3.5 RECURRENT THROMBOSIS Performed By: #### S EDR #### [facility] [address] [place] [address] Dr. Julisa Lowe PT Coag (PPP) [Time] 10.2 s Normal 9.0-11.6 [facility] Comment on above: Performed By: #### S EDR #### [facility] [address] [place] [address] Dr. Julisa Lowe PTTon 12-20-2021 aPTT Coag (Bld) [Time] 21.7 s Critically low 22.3-36.2 [facility] Comment on above: Performed By: #### S EDR #### [facility] [address] [place] [address] Dr. Julisa Lowe TROPONIN, HIGH SENSITIVITYon 12-20-2021 HSTROP 16.3 pg/mL Normal 4.0-35.5 [facility] Comment on above: Result Comment: CUT- OFF POINTS HAVE BEEN ESTABLISHED BASED ON THE FOURTH UNIVERSAL DEFINITIONS OF MYOCARDIAL INFARCTION. THE UPPER REFERENCE LIMIT (URL) OF TROPONIN, DEFINED THE 99TH PERCENTILE OF cTnI DISTRIBUTION IN A REFERENCE POPULATION, HAS BEEN CONFIRMED THE DECISION THRESHOLD FOR MO DIAGNOSIS. Performed By: #### P OCGLUC #### [facility] [address] [place] [address] Dr. Julisa Lowe HSTROP 16.8 pg/mL Normal 4.0-35.5 [facility] Comment on above: Result Comment: CUT- OFF POINTS HAVE BEEN ESTABLISHED BASED ON THE FOURTH UNIVERSAL DEFINITIONS OF MYOCARDIAL INFARCTION. THE UPPER REFERENCE LIMIT (URL) OF TROPONIN, DEFINED THE 99TH PERCENTILE OF cTnI DISTRIBUTION IN A REFERENCE POPULATION, HAS BEEN CONFIRMED THE DECISION THRESHOLD FOR MO DIAGNOSIS. Performed By: #### H STROPN #### [facility] [address] [place] [address] Dr. Julisa Lowe URINE MICROSCOPIC ONLYon BACTERIA LARGE Abnormal NONE SEEN [facility] Comment on above: Performed By: #### S EDR #### [facility] [address] [place] [address] Dr. Julisa Lowe Bacteria identified Cx Nom (U) INDICATED Normal [facility] Comment on above: Performed By: #### S EDR #### [facility] [address] [place] [address] Dr. Julisa Lowe CAST NONE SEEN Normal NONE SEEN [facility] Comment on above: Performed By: #### S EDR #### [facility] [address] [address] [address] Julisa Lowe Crystals LM Nom (Urine sed) NONE SEEN Normal NONE SEEN [facility] Comment on above: Performed By: #### S EDR #### [facility] [address] [address] [address] Julisa Lowe Epithelial cells LM Ql (Urine sed) FEW Abnormal NONE SEEN /RARE [facility] Comment on above: Performed By: #### S EDR #### [facility] [address] [place] [address] Dr. Julisa Lowe MUCOUS NONE SEEN Normal NONE SEEN [facility] Comment on above: Performed By: #### S EDR #### [facility] [address] [place] [address] Dr. Julisa Lowe RBC 0-2 Normal 0-2 [facility] Comment on above: Performed By: #### S EDR #### [facility] [address] [place] [address] Dr. Julisa Lowe WBC 10-20 Abnormal NONE SEEN [facility] Comment on above: Performed By: #### S EDR #### [facility] [address] [place] [address] Dr. Julisa Lowe XR CHEST 1 Von [...] NGOZI NELSON Date: 2021-12-20 15:58 Normal [facility] JOSEE by IFAon 12-18-2021 Antinuclear Antibodies, IFA Negative Normal [facility] Comment on above: Result Comment: Nega tive <1:80 Borderline 1:80 Positive >1:80 ICAP nomenclature: AC-0 For more information about Hep-2 cell patterns use ANApatterns.org, the official website for the International Consensus on Antinuclear Antibody (JOSEE) Patterns (ICAP). Performed By: #### H STROPN #### [facility] [address] [address] [address] Julisa Lowe CBC AUTO DIFFon 12-15-2021 BASO # 0.0 103/ul Normal 0.0-0.1 [facility] Comment on above: Performed By: #### A 1C #### [facility] [address] [place] [address] Dr. Julisa Lowe Basophils/100 WBC (Bld) 0.3 % Normal 0.2-2.0 [facility] Comment on above: Performed By: #### A 1C #### [facility] [address] [place] [address] Dr. Julisa Lowe EO # 0.1 103/ul Normal 0.0-0.7 [facility] Comment on above: Performed By: #### A 1C #### [facility] [address] [place] [address] Dr. Julisa Lowe Eosinophils/100 WBC (Bld) 0.9 % Normal 0.9-7.0 [facility] Comment on above: Performed By: #### A 1C #### [facility] [address] [place] [address] Dr. Julisa Lowe Erythrocyte distribution width (RBC) [Ratio] 19.6 % Critically high 11.0-15.0 [facility] Comment on above: Performed By: #### A 1C #### [facility] [address] [place] [address] Dr. Julisa Lowe Hematocrit (Bld) [Volume fraction] 33.8 % Critically low 36.0-48.0 [facility] Comment on above: Performed By: #### A 1C #### [facility] [address] [place] [address] Dr. Julisa Lowe Hemoglobin (Bld) [Mass/Vol] 9.7 g/dL Critically low 12.0-16.0 [facility] Comment on above: Performed By: #### A 1C #### [facility] [address] [place] [address] Dr. Julisa Lowe IG # 0.13 10e3/ul Critically high 0.00-0.03 [facility] Comment on above: Performed By: #### A 1C #### [facility] [address] [place] [address] Dr. Julisa Lowe IG % 0.9 % Critically high 0.0-0.5 [facility] Comment on above: Performed By: #### A 1C #### [facility] [address] [place] [address] Dr. Julisa Lowe LYMPH # 3.5 103/ul Normal 1.2-3.8 [facility] Comment on above: Performed By: #### A 1C #### [facility] [address] [place] [address] Dr. Julisa Lowe Lymphocytes/100 WBC (Bld) 25.4 % Normal 20.5-60.0 [facility] Comment on above: Performed By: #### A 1C #### [facility] [address] [place] [address] Dr. Julisa Lowe MANUAL DIFF REQ NO Normal [facility] Comment on above: Performed By: #### A 1C #### [facility] [address] [place] [address] Dr. Julisa Lowe MCH (RBC) [Entitic mass] 20.4 pg Critically low 26.7-34.0 [facility] Comment on above: Performed By: #### A 1C #### [facility] [address] [place] [address] Dr. Julisa Lowe MCHC (RBC) [Mass/Vol] 28.7 g/dL Critically low 29.9-35.2 [facility] Comment on above: Performed By: #### A 1C #### [facility] [address] [place] [address] Dr. Julisa Lowe MCV (RBC) [Entitic vol] 71.2 fL Critically low 81.0-99.0 [facility] Comment on above: Performed By: #### A 1C #### [facility] [address] [place] [address] Dr. Julisa Lowe MONO # 0.7 103/ul Normal 0.3-0.8 [facility] Comment on above: Performed By: #### A 1C #### [facility] [address] [address] [address] Julisa Lowe Monocytes/100 WBC (Bld) 5.0 % Normal 1.7-12.0 [facility] Comment on above: Performed By: #### A 1C #### [facility] [address] [address] [address] Julisa Lowe NEUT # 9.3 103/ul Critically high 1.4-6.5 [facility] Comment on above: Performed By: #### A 1C #### [facility] [address] [address] [address] Julisa Lowe Neutrophils/100 WBC (Bld) 67.5 % Normal 43.0-75.0 [facility] Comment on above: Performed By: #### A 1C #### [facility] [address] [address] [address] Julisa Lowe Platelet mean volume (Bld) [Entitic vol] 8.2 fL Critically low 9.5-13.5 [facility] Comment on above: Performed By: #### A 1C #### [facility] [address] [address] [address] Julisa Lowe PLT 301 103/ul Normal 150-450 [facility] Comment on above: Performed By: #### A 1C #### [facility] [address] [address] [address] Julisa Lowe RBC 4.75 106/ul Normal 4.20-5.40 [facility] Comment on above: Result Comment: HYPO CHROMIA 3+ Performed By: #### A 1C #### [facility] [address] [address] [address] Julisa Lowe WBC 13.8 103/ul Critically high 4.0-11.0 [facility] Comment on above: Performed By: #### A 1C #### [facility] [address] [place] [address] Dr. Julisa Lowe CRPon 12-15-2021 CRP [Mass/Vol] mg/L Normal <=1.0 [facility] Comment on above: Performed By: #### C MP, CRP, TSH #### [facility] [address] [address] [address] Julisa Lowe FREE T4on 12-15-2021 Free T4 [Mass/Vol] 1.04 ng/dL Normal 0.78-2.19 [facility] Comment on above: Performed By: #### S EDR #### [facility] [address] [address] [address] Julisa Lowe PROF 14(COMP METB)on 022 Albumin [Mass/Vol] 3.4 g/dL Normal 3.4-5.0 [facility] Comment on above: Performed By: #### C MP, CRP, TSH #### [facility] [address] [place] [address] Dr. Julisa Lowe Albumin/Globulin [Mass ratio] 1.1 {ratio} Normal [facility] Comment on above: Performed By: #### C MP, CRP, TSH #### [facility] [address] [place] [address] Dr. Julisa Lowe ALP [Catalytic activity/Vol] 120 U/L Critically high 46-116 [facility] Comment on above: Performed By: #### C MP, CRP, TSH #### [facility] [address] [place] [address] Dr. Julisa Lowe ALT [Catalytic activity/Vol] 28 U/L Normal 14-59 [facility] Comment on above: Performed By: #### C MP, CRP, TSH #### [facility] [address] [place] [address] Dr. Julisa Lowe Anion gap [Moles/Vol] 12.7 mmol/L Normal [facility] Comment on above: Performed By: #### C MP, CRP, TSH #### [facility] [address] [place] [address] Dr. Julisa Lowe AST [Catalytic activity/Vol] 13 U/L Critically low 15-37 [facility] Comment on above: Performed By: #### C MP, CRP, TSH #### [facility] [address] [address] [address] Julisa Lowe Bilirubin [Mass/Vol] 0.3 mg/dL Normal 0.2-1.3 [facility] Comment on above: Performed By: #### C MP, CRP, TSH #### [facility] [address] [place] [address] Dr. Julisa Lowe Calcium [Mass/Vol] 8.4 mg/dL Critically low 8.5-10.1 [facility] Comment on above: Performed By: #### C MP, CRP, TSH #### [facility] [address] [address] [address] Julisa Lowe Chloride [Moles/Vol] 106 mmol/L Normal 98-107 [facility] Comment on above: Performed By: #### C MP, CRP, TSH #### [facility] [address] [place] [address] Dr. Julisa Lowe CO2 [Moles/Vol] 25.8 mmol/L Normal 22.0-30.0 [facility] Comment on above: Performed By: #### C MP, CRP, TSH #### [facility] [address] [place] [address] Dr. Julisa Lowe Creatinine [Mass/Vol] 0.68 mg/dL Normal 0.52-1.04 [facility] Comment on above: Performed By: #### C MP, CRP, TSH #### [facility] [address] [place] [address] Dr. Julisa Lowe EGFR-AF NICARAGUAN >60 Normal >=60 [facility] Comment on above: Performed By: #### C MP, CRP, TSH #### [facility] [address] [place] [address] Dr. Julisa Lowe EGFR-NON AF NICARAGUAN >60 Normal >=60 [facility] Comment on above: Performed By: #### C MP, CRP, TSH #### [facility] [address] [place] [address] Dr. Julisa Lowe Globulin (S) [Mass/Vol] 3.2 g/dL Normal [facility] Comment on above: Performed By: #### C MP, CRP, TSH #### [facility] [address] [address] [address] Julisa Lowe Glucose [Mass/Vol] 222 mg/dL Critically high 74-106 [facility] Comment on above: Performed By: #### C MP, CRP, TSH #### [facility] [address] [address] [address] Julisa Lowe Potassium [Moles/Vol] 3.5 mmol/L Normal 3.4-5.0 [facility] Comment on above: Performed By: #### C MP, CRP, TSH #### [facility] [address] [address] [address] Julisa Lowe Protein [Mass/Vol] 6.6 g/dL Normal 6.1-8.2 [facility] Comment on above: Performed By: #### C MP, CRP, TSH #### [facility] [address] [address] [address] Julisa Lowe Sodium [Moles/Vol] 141 mmol/L Normal 137-145 [facility] Comment on above: Performed By: #### C MP, CRP, TSH #### [facility] [address] [address] [address] Julisa Lowe Urea nitrogen [Mass/Vol] 14.0 mg/dL Normal 7.0-18.0 [facility] Comment on above: Performed By: #### C MP, CRP, TSH #### [facility] [address] [address] [address] Julisa Lowe Urea nitrogen/Creatinine [Mass ratio] 20.6 mg/mg Normal [facility] Comment on above: Performed By: #### C MP, CRP, TSH #### [facility] [address] [address] [address] Julisa Lowe SED RATE [facility] 2021 SED RATE 10 mm/hr Normal <=30 [facility] Comment on above: Performed By: #### S EDR #### [facility] [address] [address] [address] Julisa Lowe TSHon 12-15-2021 TSH 0.747 uIU/mL Normal 0.470-4.680 [facility] Comment on above: Performed By: #### C MP, CRP, TSH #### [facility] [address] [place], [place] [address] Dr. Julisa Lowe TSH RANGE SEE BELOW Normal [facility] Comment on above: Result Comment: <0.3 4 UIU/ml HYPERTHYROID 0.34-5.60 UIU/ml EUTHYROID >5.60 UIU/ml HYPOTHYROID Performed By: #### C MP, CRP, TSH #### [facility] [address] [place], [place] [address] Dr. Julisa Lowe ECHOCARDIO M/2D COMPLETEon 0 12-04-2021 ECHOCARDIO M/2D COMPLETE Patient: ROBINA RON Exam Date: 12/04/2021 : 1950 Gender:F Ordering : SHAIKH Chaparrita Carey Admission #: [id number] Family : Order #: [id number] CLICK HERE TO VIEW EXAM ECHOCARDIOGRAM REPORT [...] Area(A4C): 21.50 cm2 Left Atrium Systolic Volume(A2C): 03015 mm3 Left Atrium Systolic Volume(A4C): 60572 mm3 Mitral Valve MV E to A [...] M.D. on 12/04/2021 at 18:31 Normal [facility] CBC AUTO DIFFon 09-10-2021 BASO # 0.1 103/ul Normal 0.0-0.1 [facility] Comment on above: Performed By: #### S EDR #### [facility] [address] [place] [address] Dr. Julisa Loew Basophils/100 WBC (Bld) 0.4 % Normal 0.2-2.0 [facility] Comment on above: Performed By: #### S EDR #### [facility] [address] [place] [address] Dr. Julisa Lowe EO # 0.2 103/ul Normal 0.0-0.7 [facility] Comment on above: Performed By: #### S EDR #### [facility] [address] [place] [address] Dr. Julisa Lowe Eosinophils/100 WBC (Bld) 1.2 % Normal 0.9-7.0 [facility] Comment on above: Performed By: #### S EDR #### [facility] [address] [place] [address] Dr. Julisa Lowe Erythrocyte distribution width (RBC) [Ratio] 17.8 % Critically high 11.0-15.0 [facility] Comment on above: Performed By: #### S EDR #### [facility] [address] [place] [address] Dr. Julisa Lowe Hematocrit (Bld) [Volume fraction] 36.6 % Normal 36.0-48.0 [facility] Comment on above: Performed By: #### S EDR #### [facility] [address] [place] [address] Dr. Julisa Lowe Hemoglobin (Bld) [Mass/Vol] 10.1 g/dL Critically low 12.0-16.0 [facility] Comment on above: Performed By: #### S EDR #### [facility] [address] [place] [address] Dr. Julisa Lowe IG # 0.08 10e3/ul Critically high 0.00-0.03 [facility] Comment on above: Performed By: #### S EDR #### [facility] [address] [place] [address] Dr. Julisa Lowe IG % 0.6 % Critically high 0.0-0.5 [facility] Comment on above: Performed By: #### S EDR #### [facility] [address] [place] [address] Dr. Julisa Lowe LYMPH # 3.1 103/ul Normal 1.2-3.8 [facility] Comment on above: Performed By: #### S EDR #### [facility] [address] [place] [address] Dr. Julisa Lowe Lymphocytes/100 WBC (Bld) 23.2 % Normal 20.5-60.0 [facility] Comment on above: Performed By: #### S EDR #### [facility] [address] [place] [address] Dr. Julisa Lowe MANUAL DIFF REQ NO Normal [facility] Comment on above: Performed By: #### S EDR #### [facility] [address] [place] [address] Dr. Julisa Lowe MCH (RBC) [Entitic mass] 20.9 pg Critically low 26.7-34.0 [facility] Comment on above: Performed By: #### S EDR #### [facility] [address] [place] [address] Dr. Julisa Lowe MCHC (RBC) [Mass/Vol] 27.6 g/dL Critically low 29.9-35.2 [facility] Comment on above: Performed By: #### S EDR #### [facility] [address] [place] [address] Dr. Julisa Lowe MCV (RBC) [Entitic vol] 75.8 fL Critically low 81.0-99.0 [facility] Comment on above: Performed By: #### S EDR #### [facility] [address] [place] [address] Dr. Julisa Lowe MONO # 0.7 103/ul Normal 0.3-0.8 [facility] Comment on above: Performed By: #### S EDR #### [facility] [address] [place] [address] Dr. Julisa Lowe Monocytes/100 WBC (Bld) 5.1 % Normal 1.7-12.0 [facility] Comment on above: Performed By: #### S EDR #### [facility] [address] [address] [address] Julisa Lowe NEUT # 9.3 103/ul Critically high 1.4-6.5 [facility] Comment on above: Performed By: #### S EDR #### [facility] [address] [address] [address] Julisa Lowe Neutrophils/100 WBC (Bld) 69.5 % Normal 43.0-75.0 [facility] Comment on above: Performed By: #### S EDR #### [facility] [address] [place] [address] Dr. Julisa Lowe Platelet mean volume (Bld) [Entitic vol] 8.2 fL Critically low 9.5-13.5 [facility] Comment on above: Performed By: #### S EDR #### [facility] [address] [address] [address] Julisa Lowe PLT 303 103/ul Normal 150-450 [facility] Comment on above: Performed By: #### S EDR #### [facility] [address] [place] [address] Dr. Julisa Lowe RBC 4.83 106/ul Normal 4.20-5.40 [facility] Comment on above: Performed By: #### S EDR #### [facility] [address] [place] [address] Dr. Julisa Lowe WBC 13.4 103/ul Critically high 4.0-11.0 [facility] Comment on above: Performed By: #### S EDR #### [facility] [address] [place] [address] Dr. Julisa Lowe GLYCOHEMOGLOBIN A1Con 2020 ADA RECOMMENDATION ADA THERAPEUTIC TARGET 6.0 - 7.0 ACTION SUGGESTED > 7.0 Normal [facility] Comment on above: Performed By: #### A 1C #### [facility] [address] [place] [address] Dr. Julisa Lowe Glucose [Mass/Vol] 151 mg/dL Normal [facility] Comment on above: Performed By: #### A 1C #### [facility] [address] [address] [address] Julisa Lowe HbA1c (Bld) [Mass fraction] 6.9 % Critically high <=6.0 [facility] Comment on above: Performed By: #### A 1C #### [facility] [address] [address] [address] Julisa Lowe LIPID PROFILEon 09-10-2021 CHOL-HDL RATIO NORM SEE BELOW Normal [facility] Comment on above: Result Comment: 3.3 - 4.4 LOW RISK 4.4 - 7.1 AVERAGE RISK 7.1 - 11.0 MODERATE RISK >11.0 HIGH RISK Performed By: #### A 1C #### [facility] [address] [place] [address] Dr. Julisa Lowe Cholesterol [Mass/Vol] 121 mg/dL Normal <=200 Th [facility] Comment on above: Performed By: #### A 1C #### [facility] [address] [address] [address] Julisa Lwoe Cholesterol in HDL [Mass/Vol] 55 mg/dL Normal [facility] Comment on above: Performed By: #### A 1C #### [facility] [address] [place] [address] Dr. Julisa Lowe Cholesterol in LDL [Mass/Vol] 46.8 mg/dL Normal [facility] Comment on above: Performed By: #### A 1C #### [facility] [address] [place] [address] Dr. Julisa Lowe Cholesterol.total/Chol esterol in HDL [Mass ratio] 2.2 {ratio} Normal [facility] Comment on above: Performed By: #### A 1C #### [facility] [address] [place] [address] Dr. Julisa Lowe HDL NORMAL > or = 60 mg/dl - LO W CARDIOVASCULAR RISK <40 mg/dl - HIGH CARDIOVASCULAR RISK Normal [facility] Comment on above: Performed By: #### A 1C #### [facility] [address] [address] [address] Julisa Lowe LDL CALC NORMAL SEE BELOW Normal [facility] Comment on above: Result Comment: <100 mg/dl OPTIMAL 100 - 129 mg/dl NEAR OR ABOVE OPTIMAL 130 - 159 mg/dl BORDERLINE HIGH 160 - 189 mg/dl HIGH >190 mg/dl VERY HIGH Performed By: #### A 1C #### [facility] [address] [address] [address] Julisa Lowe Triglyceride [Mass/Vol] 96 mg/dL Normal <=150 [facility] Comment on above: Performed By: #### A 1C #### [facility] [address] [address] [address] Julisa Lowe VLDL CALC 19.2 mg/dL Normal [facility] Comment on above: Performed By: #### A 1C #### [facility] [address] [place] [address] Dr. Julisa Lowe MICROALBUMIN, RAND URon 08-14 mALB 33.4 mg/L Critically high <=30.0 [facility] Comment on above: Performed By: #### S EDR #### [facility] [address] [address] [address] Julisa Lowe PROF 14(COMP METB)on 021 Albumin [Mass/Vol] 3.4 g/dL Critically low 3.5-5.0 Th [facility] Comment on above: Performed By: #### A 1C #### [facility] [address] [place] [address] Dr. Julisa Lowe Albumin/Globulin [Mass ratio] 1.3 {ratio} Normal [facility] Comment on above: Performed By: #### A 1C #### [facility] [address] [address] [address] Julisa Lowe ALP [Catalytic activity/Vol] 74 U/L Normal 38-126 [facility] Comment on above: Performed By: #### A 1C #### [facility] [address] [address] [address] Julisa Lowe ALT [Catalytic activity/Vol] 11 U/L Normal 9-52 [facility] Comment on above: Performed By: #### A 1C #### [facility] [address] [address] [address] Julisa Lowe Anion gap [Moles/Vol] 18.2 mmol/L Normal Th [facility] Comment on above: Performed By: #### A 1C #### [facility] [address] [address] [address] Julisa Lowe AST [Catalytic activity/Vol] 12 U/L Critically low 14-36 [facility] Comment on above: Performed By: #### A 1C #### [facility] [address] [address] [address] Julisa Lowe Bilirubin [Mass/Vol] 0.3 mg/dL Normal 0.2-1.3 [facility] Comment on above: Performed By: #### A 1C #### [facility] [address] [address] [address] Julisa Lowe Calcium [Mass/Vol] 9.3 mg/dL Normal 8.4-10.2 [facility] Comment on above: Performed By: #### A 1C #### [facility] [address] [address] [address] Julisa Lowe Chloride [Moles/Vol] 105 mmol/L Normal 98-107 [facility] Comment on above: Performed By: #### A 1C #### [facility] [address] [address] [address] Julisa Lowe Creatinine [Mass/Vol] 0.62 mg/dL Normal 0.52-1.04 [facility] Comment on above: Performed By: #### A 1C #### [facility] [address] [address] [address] Julisa Lowe EGFR-AF NICARAGUAN >60 Normal >=60 [facility] Comment on above: Performed By: #### A 1C #### [facility] [address] [address] [address] Julisa Lowe EGFR-NON AF NICARAGUAN >60 Normal >=60 [facility] Comment on above: Performed By: #### A 1C #### [facility] [address] [address] [address] Julisa Lowe Globulin (S) [Mass/Vol] 2.7 g/dL Normal [facility] Comment on above: Performed By: #### A 1C #### [facility] [address] [place] [address] Dr. Julisa Lowe Glucose [Mass/Vol] 134 mg/dL Critically high 74-106 T [facility] Comment on above: Performed By: #### A 1C #### [facility] [address] [place] [address] Dr. Julisa Lowe Potassium [Moles/Vol] 4.3 mmol/L Normal 3.4-5.0 [facility] Comment on above: Performed By: #### A 1C #### [facility] [address] [place] [address] Dr. Julisa Lowe Protein [Mass/Vol] 6.1 g/dL Normal 6.1-8.2 [facility] Comment on above: Performed By: #### A 1C #### [facility] [address] [place] [address] Dr. Julisa Lowe Sodium [Moles/Vol] 142 mmol/L Normal 137-145 [facility] Comment on above: Performed By: #### A 1C #### [facility] [address] [place] [address] Dr. Julisa Lowe Urea nitrogen [Mass/Vol] 23.0 mg/dL Critically high 7.0-17.0 [facility] Comment on above: Performed By: #### A 1C #### [facility] [address] [place] [address] Dr. Julisa Lowe Urea nitrogen/Creatinine [Mass ratio] 37.1 mg/mg Normal [facility] Comment on above: Performed By: #### A 1C #### [facility] [address] [place] [address] Dr. Julisa Lowe [facility] SARS-CoV-2 (COVID-19) RNA CHALINO+probe Ql (Unsp spec) Not detected Normal NOT DETECTED [facility] Comment on above: Result Comment: This test is not yet approved or cleared by the [place] FDA. When there are no FDA-approved or cleared tests available, and other criteria are met, FDA can make tests available under an emergency access mechanism called an Emergency Use Authorization (EUA). The EUA for this test is supported by the Superannuation Clerk of Health and Human Service's (HHS's) declaration [...] SARS-CoV-2. Performed By: #### C [facility] #### [facility] [address] [place] [address] Dr. Julisa Lowe Vital Signs Date Time Vital Sign Value Performing Clinician Facility 11-02-2024 08:50-0500 Body height 154.9 cm Tj Herndonpatrick [employer] Work Phone: [facility] 11-02-2024 08:50-0500 Body mass index (BMI) [Ratio] 24.94 kg/m2 Tj Ramirez [employer] Work Phone: [facility] 11-02-2024 08:50-0500 Body temperature 97.59 [degF] Tj Ramirez [employer] Work Phone: [facility] 11-02-2024 08:50-0500 Body weight 59.88 kg Tj Ramirez [employer] Work Phone: [facility] 11-02-2024 08:50-0500 Diastolic blood pressure 66 mm[Hg] Tj Ramirez [employer] Work Phone: [facility] 11-02-2024 08:50-0500 Heart rate 81 /min Tj Ramirez [employer] Work Phone: [facility] 11-02-2024 08:50-0500 Respiratory rate 18 /min Tj Herndonpatrick [employer] Work Phone: [facility] 11-02-2024 08:50-0500 SaO2% (BldA) [Mass fraction] 99 % Tj Nuneszpatrick [employer] Work Phone: [facility] 11-02-2024 08:50-0500 Systolic blood pressure 102 mm[Hg] Tj Herndonpatrick [employer] Work Phone: [facility] 10-18-2024 10:34-0500 Body height 154.9 cm Christopher Garrett MD Work Phone: [facility] 10-18-2024 10:34-0500 Body mass index (BMI) [Ratio] 25.51 kg/m2 Christopher Garrett MD Work Phone: [facility] 10-18-2024 10:34-0500 Body weight 61.24 kg Christopher Garrett MD Work Phone: [facility] 10-18-2024 10:34-0500 Diastolic blood pressure 60 mm[Hg] Christopher Garrett MD Work Phone: [facility] 10-18-2024 10:34-0500 Heart rate 84 /min Christopher Garrett MD Work Phone: [facility] 10-18-2024 10:34-0500 Respiratory rate 18 /min Christopher Garrett MD Work Phone: [facility] 10-18-2024 10:34-0500 SaO2% (BldA) [Mass fraction] 97 % Christopher Garrett MD Work Phone: [facility] 10-18-2024 10:34-0500 Systolic blood pressure 90 mm[Hg] Christopher Garrett MD Work Phone: [facility] 08-15-2024 09:45-0500 Body height 154.9 cm Christopher Garrett MD Work Phone: [facility] 08-15-2024 09:45-0500 Body mass index (BMI) [Ratio] 24.75 kg/m2 Christopher Garrett MD Work Phone: [facility] 08-15-2024 09:45-0500 Body weight 59.42 kg Christopher Garrett MD Work Phone: [facility] 08-15-2024 09:45-0500 Diastolic blood pressure 56 mm[Hg] Christopher Garrett MD Work Phone: [facility] 08-15-2024 09:45-0500 Heart rate 87 /min Christopher Garrett MD Work Phone: [facility] 08-15-2024 09:45-0500 Respiratory rate 18 /min Christopher Garrett MD Work Phone: [facility] 08-15-2024 09:45-0500 Systolic blood pressure 96 mm[Hg] Christopher Garrett MD Work Phone: [facility] 08-01-2024 09:58-0500 Body height 154.9 cm Tj Ramirez [employer] Work Phone: [facility] 08-01-2024 09:58-0500 Body mass index (BMI) [Ratio] 24.83 kg/m2 Tj Ramirez [employer] Work Phone: [facility] 08-01-2024 09:58-0500 Body temperature 96.69 [degF] Tj Ramirez [employer] Work Phone: [facility] 08-01-2024 09:58-0500 Body weight 59.6 kg Tj Ramirez [employer] Work Phone: [facility] 08-01-2024 09:58-0500 Diastolic blood pressure 80 mm[Hg] Tj Ramirez [employer] Work Phone: [facility] 08-01-2024 09:58-0500 Heart rate 85 /min Tj Ramirez [employer] Work Phone: [facility] 08-01-2024 09:58-0500 Respiratory rate 18 /min Tj Ramirez [employer] Work Phone: [facility] 08-01-2024 09:58-0500 Systolic blood pressure 132 mm[Hg] Tj Ramirez [employer] Work Phone: [facility] 05-09-2024 09:03-0400 Diastolic blood pressure 72 mm[Hg] Shante Orzech [facility] 05-09-2024 09:03-0400 Heart rate 90 /min Shante Orzech [facility] 05-09-2024 09:03-0400 Systolic blood pressure 109 mm[Hg] Shante Orzech [facility] 05-03-2024 10:20-0400 Body height 154.9 cm Tj Ramirez [employer] Work Phone: [facility] 05-03-2024 10:20-0400 Body mass index (BMI) [Ratio] 26.64 kg/m2 Tj Ramirez [employer] Work Phone: [facility] 05-03-2024 10:20-0400 Body temperature 97 [degF] Tj Ramirez [employer] Work Phone: [facility] 05-03-2024 10:20-0400 Body weight 63.96 kg Tj Ramirez [employer] Work Phone: [facility] 05-03-2024 10:20-0400 Diastolic blood pressure 68 mm[Hg] Tj Ramirez [employer] Work Phone: [facility] 05-03-2024 10:20-0400 Heart rate 82 /min Tj Ramirez [employer] Work Phone: [facility] Comment on above: 100% O2 05-03-2024 10:20-0400 Systolic blood pressure 110 mm[Hg] Tj Ashley [employer] Work Phone: [facility] 02-29-2024 10:35-0400 Blood Pressure Location Shante Orzech [facility] 02-29-2024 10:35-0400 Diastolic blood pressure 78 mm[Hg] Shante Orzech [facility] 02-29-2024 10:35-0400 Heart rate 68 /min Shante Orzech [facility] 02-29-2024 10:35-0400 Respiratory rate 16 /min Shante Orzech [facility] 02-29-2024 10:35-0400 Systolic blood pressure 132 mm[Hg] Shante Orzech [facility] 05-12-2022 15:00-0400 Diastolic blood pressure 49 mm[Hg] Chair Hilda Work Phone: [facility] 05-12-2022 15:00-0400 Heart rate 98 /min Chair Hilda Work Phone: [facility] 05-12-2022 15:00-0400 SaO2% (BldA) [Mass fraction] 95 % Chair Boaz Work Phone: [facility] 05-12-2022 15:00-0400 Systolic blood pressure 137 mm[Hg] Chair Boaz Work Phone: [facility] 05-12-2022 13:30-0400 Body temperature 98.6 [degF] Chair Boaz Work Phone: [facility] 05-12-2022 10:15-0400 Diastolic blood pressure 87 mm[Hg] MD Hood Patel Work Phone: [facility] 05-12-2022 10:15-0400 Heart rate 82 /min MD Hood Patel Work Phone: [facility] 05-12-2022 10:15-0400 Respiratory rate 16 /min MD Hood Patel Work Phone: [facility] 05-12-2022 10:15-0400 SaO2% (BldA) [Mass fraction] 100 % MD Hood Patel Work Phone: [facility] 05-12-2022 10:15-0400 Systolic blood pressure 149 mm[Hg] MD Hood Patel Work Phone: [facility] 05-12-2022 07:54-0400 Body height 154.94 cm MD Hood Patel Work Phone: [facility] 05-12-2022 07:54-0400 Body weight 53.52 kg MD Hood Patel Work Phone: [facility] 05-06-2022 14:29-0400 Body temperature 99 [degF] Chair Boaz Work Phone: [facility] 05-06-2022 14:29-0400 Diastolic blood pressure 51 mm[Hg] Chair Hilda Work Phone: [facility] 05-06-2022 14:29-0400 Heart rate 93 /min Chair Hilda Work Phone: [facility] 05-06-2022 14:29-0400 Respiratory rate 16 /min Chair Boaz Work Phone: [facility] 05-06-2022 14:29-0400 SaO2% (BldA) [Mass fraction] 98 % Chair Boaz Work Phone: [facility] 05-06-2022 14:29-0400 Systolic blood pressure 129 mm[Hg] Chair Hilda Work Phone: [facility] 04-28-2022 10:47-0400 Body temperature 98.91 [degF] Chair Boaz Work Phone: [facility] 04-28-2022 10:47-0400 Diastolic blood pressure 64 mm[Hg] Chair Hilda Work Phone: [facility] 04-28-2022 10:47-0400 Heart rate 88 /min Chair Boaz Work Phone: [facility] 04-28-2022 10:47-0400 Respiratory rate 18 /min Chair Boaz Work Phone: [facility] 04-28-2022 10:47-0400 SaO2% (BldA) [Mass fraction] 98 % Chair Boaz Work Phone: [facility] 04-28-2022 10:47-0400 Systolic blood pressure 122 mm[Hg] Chair Boaz Work Phone: [facility] 04-22-2022 14:02-0400 Body temperature 99 [degF] Chair Hilda Work Phone: [facility] 04-22-2022 14:02-0400 Diastolic blood pressure 56 mm[Hg] Chair Boaz Work Phone: [facility] 04-22-2022 14:02-0400 Heart rate 95 /min Chair Hilda Work Phone: [facility] 04-22-2022 14:02-0400 Respiratory rate 18 /min Chair Boaz Work Phone: [facility] 04-22-2022 14:02-0400 SaO2% (BldA) [Mass fraction] 96 % Chair Boaz Work Phone: [facility] 04-22-2022 14:02-0400 Systolic blood pressure 123 mm[Hg] Chair Boaz Work Phone: [facility] 10-14-2021 14:15-0500 Body height 154.94 cm Lawanda Olexa Other [employer] Other 10-14-2021 14:15-0500 Body mass index (BMI) [Ratio] 22.26 kg/m2 Lawanda Alvarez Other [employer] Other 10-14-2021 14:15-0500 Body weight 53.43 kg Lawanda Alvarez Other [employer] Other Encounters Encounter Date Encounter Type Care Provider Facility Start: 11-10-2024 End: 11-10-2024 Orders Only Estuardo Sanchez MD Work Phone: [facility] Comment on above: Influenza A (Primary Dx) Start: 11-07-2024 End: 11-09-2024 Clinisync Result Encounter Generic External Data Provider [facility] External Department Unsolicited Start: 11-07-2024 End: 11-09-2024 Clinisync Result Encounter Generic External Data Provider [facility] External Department Unsolicited Start: 11-02-2024 End: 11-02-2024 Bamboo flowsheet Tj Ramirez [employer] Work Phone: [facility] Start: 11-02-2024 End: 11-02-2024 Bamboo flowsheet Tj Ramirez [employer] Work Phone: [facility] Start: 11-02-2024 End: 11-02-2024 Office outpatient visit 15 minutes Tj Ramirez [employer] Work Phone: [facility] Comment on above: Mixed hyperlipidemia (CMS/HCC) (Primary Dx); Primary hypertension (CMS/HCC); Type 2 diabetes mellitus with stage 3a chronic kidney disease, with long-term current use of insulin (HCC) (CMS/HCC) Start: 11-02-2024 End: 11-02-2024 ambulatory TJ RAMIREZ Not Available Start: 10-18-2024 End: 10-18-2024 Bamboo flowsheet Christopher Garrett MD Work Phone: [facility] Start: 10-18-2024 End: 10-18-2024 Bamboo flowsken Garrett MD Work Phone: [facility] Start: 10-18-2024 End: 10-18-2024 Office outpatient visit 25 minutes Christopher Garrett MD Work Phone: [facility] Comment on above: Diabetic autonomic n [...] External Department Unsolicited Start: 08-15-2024 End: 08-15-2024 Bamboo flowsken Garrett MD Work Phone: [facility] Start: 08-15-2024 End: 08-15-2024 Bamtracyo danae Garrett MD Work Phone: [facility] Start: 08-15-2024 End: 08-15-2024 Office outpatient new 45 minutes Christopher Garrett MD Work Phone: [facility] Comment on above: Type 2 [...] Not Available Start: 08-04-2024 End: 08-04-2024 ambulatory [facility] Start: 08-01-2024 End: 08-01-2024 Bamboo flowsheet Tj Ramirez [employer] Work Phone: [facility] Start: 08-01-2024 End: 08-01-2024 Bamboo flowsheet Tj Ramirez [employer] Work Phone: [facility] Start: 08-01-2024 End: 08-01-2024 Office outpatient visit 15 minutes Tj Ramirez [employer] Work Phone: [facility] Comment on above: Type 2 diabetes rosemary itus with stage 3a chronic kidney disease, with long-term current use of insulin (HCC) (CMS/HCC) (Primary Dx); Type 2 diabetes mellitus with diabetic autonomic (poly)neuropathy (CMS/HCC); Chronic obstructive pulmonary disease, unspecified COPD type (CMS/HCC); Need for immunization against influenza; Primary hypertension (CMS/HCC) Start: 08-01-2024 End: 08-01-2024 ambulatory TJ RAMIREZ Not Available Start: 07-27-2024 End: 07-27-2024 Orders Only Tj Ramirez [employer] Work Phone: [facility] Comment on above: Type 2 diabetes rosemary itus with stage 3a chronic kidney disease, with long-term current use of insulin (HCC) (CMS/HCC) (Primary Dx) Start: 07-17-2024 End: 07-17-2024 Telephone encounter Alondra James [employer] Work Phone: [facility] Start: 07-13-2024 End: 07-13-2024 ambulatory Shante Shukla Facility:[facility] Start: 07-13-2024 End: 07-13-2024 Patient encounter procedure Shante X Oreileen [facility] Start: 05-23-2024 End: 06-05-2024 Clinisync Result Encounter [...] 05-09-2024 Lab Drop off Shante X Orzech [facility] Start: 05-09-2024 End: 05-09-2024 ambulatory Shante X Orzech Facility:[facility] Start: 05-09-2024 End: 05-09-2024 Patient encounter procedure Shante X Orzech [facility] Start: 05-08-2024 End: 05-08-2024 Clinisync Result Encounter Tj Ramirez [employer] Work Phone: [facility] Unsolicited Start: 05-08-2024 End: 05-08-2024 Clinisync Result Encounter Tj Ramirez [employer] Work Phone: [facility] Unsolicited Start: 05-08-2024 End: 05-09-2024 ambulatory [facility] Start: 05-03-2024 End: 05-03-2024 Bamboo flowsheet Tj Ramirez [employer] Work Phone: [facility] Start: 05-03-2024 End: 05-03-2024 Bamboo flowsheet Tj Ramirez [employer] Work Phone: [facility] Start: 05-03-2024 End: 05-03-2024 Office outpatient visit 25 minutes Tj Ramirez [employer] Work Phone: [facility] Comment on above: Primary hypertension [...] Not Available Start: 03-14-2024 End: 03-14-2024 [facility] Start: 02-29-2024 End: 02-29-2024 ambulatory Shante X Orzech Facility[facility] Start: 02-29-2024 End: 02-29-2024 Lab Drop off Shante X Orzech [facility] Start: 02-29-2024 End: 02-29-2024 ambulatory Shante X Orzech Facility:[facility] Start: 02-29-2024 End: 02-29-2024 Patient encounter procedure Shante X Orzech [facility] Start: 01-04-2024 End: 01-04-2024 ambulatory SHAIKH CLARE Not Available Start: 08-17-2023 Patient encounter procedure Tj Ramirez [employer] Work Phone: [facility] Start: 06-22-2022 End: 06-23-2022 ambulatory SHAIKH Ivette SPARKS Facility: Start: 05-12-2022 End: 05-12-2022 ambulatory Chair Ty Anthony Work Phone: Hematology/Oncology Comment on above: Iron deficiency anem ia due to chronic blood loss (Primary Dx) Start: 05-07-2022 End: 05-07-2022 Patient encounter procedure MD Hood Patel Work Phone: [facility]-Pre-Surgical Testing Start: 05-06-2022 End: 05-06-2022 [...] 04-15-2022 End: 04-15-2022 ambulatory Hood Patel Other [employer] Other Start: 04-15-2022 Telephone encounter Hood Obrien ck [facility] Start: 04-14-2022 Telephone encounter Christy jefferson RN Work Phone: Hematology/Oncology Comment on above: Critical Results (Gl ucose) Start: 04-14-2022 End: 04-14-2022 ambulatory Chair [address] [place] Work Phone: Hematology/Oncology Comment on above: Iron deficiency anem ia due to chronic blood loss (Primary Dx); Controlled type 2 diabetes mellitus without complication, unspecified whether senior living insulin use (HCC) Start: 04-08-2022 End: 04-09-2022 ambulatory SHAIKH Ivette SPARKS Facility:H1 Start: 04-06-2022 Telephone encounter Christi lópez MD Work Phone: [facility] Comment on above: Appointment Confirma tion Start: 02-06-2022 End: 02-07-2022 ambulatory EDD WADE Facility:H1 Start: 01-23-2022 End: 01-24-2022 ambulatory WATERSSTEVEN SPARKS Facility:H1 Start: 12-22-2021 End: 12-23-[address] Brayden Keller Facility:H1 Start: 12-20-2021 End: 12-21-[address] ESTUARDO SANCHEZ Facility:H1 Start: 12-15-2021 End: 12-16-2021 ambulatory EDD WADE Facility:H1 Start: 12-04-2021 End: 12-05-2021 ambulatory WATERS Ivette CLARE Facility:H1 Start: 11-28-2021 End: 11-29-2021 ambulatory WATERS Ivette CLARE Facility:H1 Start: 10-22-2021 ambulatory SHAIKH Ivette SPARKS Facilit y:H1 Start: 10-14-2021 End: 10-14-2021 ambulatory Lawanda Alvarez Other [facility] Other Start: 10-14-2021 Office outpatient ne w 30 minutes Lawanda Alvarez [facility] Start: 09-10-2021 End: 09-11-2021 ambulatory SHAIKH Ivette CLARE Facility:H1 Start: 08-16-2021 Encounter for preprocedural laboratory examination DR LJ BRENNAN [facility] Start: 08-13-2021 End: 08-13-[address] LJ BRENNAN Facility:H1 Start: 08-12-2021 End: 08-13-2021 ambulatory WATERS Ivette CLARE Facility:H1 Start: 08-12-2021 End: 08-13-2021 Encounter for preprocedural laboratory examination WATERS H CLARE Facility:H1 Procedures Date Procedure Procedure Detail Performing Clinician Start: 11-07-2024 BLOOD CULTURE 2 Generic External Data Provider Start: 11-07-2024 BLOOD CULTURE 1 Generic External Data Provider Start: 10-18-2024 Gluc bld gluc mntr d ev cleared fda spec home use Christopher Garrett MD Work Phone: Start: 10-14-2024 [facility] MICROALB CREAT R ATIO RANDOM Generic External Data Provider Start: 08-15-2024 Gluc bld gluc mntr d ev cleared fda spec home use Christopher Garrett MD Work Phone: Start: 08-01-2024 Hemoglobin glycosylated a1c Tj Nuneszpatrick [employer]UISANCE [employer]IMAL DAMAGE CONTROL AGENT Work Phone: Start: 05-23-2024 FACTOR V LEIDEN MUTATION Generic External Data Provider Start: 05-17-2024 PROTEIN C-FUNCTIONAL Ge neric External Data Provider Start: 05-17-2024 PROTEIN S-ANTIGEN Gener ic External Data Provider Start: 05-17-2024 PROTEIN S-FUNCTIONAL Ge neric External Data Provider Start: 05-08-2024 ALL CBC WITH AUTO DIFF Tj Ashley [employer]ISANCE [employer]IMAL DAMAGE CONTROL [employer]ENT Work Phone: Start: 03-08-2024 Mammography Tj Valencia alistair [employer]ANCE [employer]ENT Work Phone: Start: 04-14-2022 Gluc bld gluc mntr d ev cleared fda spec home use [facility] Provider Start: 09-13-2020 End: 09-13-2020 Colonoscopy Shante Orzech Start: 04-22-2017 Cystourethroscopy [facility] dilation of urethral stricture Shante Orzech Comment on above: 01/09/2019 Back structure, excl uding neck (body structure) Shante Orzech Cataract (disorder) Shante O rzech Cholecystectomy Shante Orzec h Hysterectomy Shante Orzech Tonsillectomy Shante Orzech Plan of Treatment Date Care Activity Detail Author Start: 09-13-2030 Screening for malignant neoplasm of colon [facility] Start: 10-16-2025 Urine screening for protein Diabetes: Urine Protein Screening [facility] Start: 05-08-2025 Urine screening for protein Diabetes: Urine Protein Screening [facility] Start: 04-14-2025 DIABETES SCREEN DIABETES SCREEN [facility] Start: 03-08-2025 Screening for malignant neoplasm of breast Mammogram [facility] Start: 02-21-2025 End: 02-21-2025 Patient encounter procedure 02/21/2025 10:50 AM EDT Office Visit [facility] [address] [place] [address] Christopher Garrett MD [address] [place] [address] [facility] Start: 02-13-2025 Hemoglobin A1c measurement Diabetes: Hemoglobin A1C [facility] Start: 01-30-2025 End: 01-30-2025 Patient encounter procedure [facility] Start: 01-29-2025 Hemoglobin A1c measurement Diabetes: Hemoglobin A1C [facility] Start: 11-16-2024 End: 11-16-2024 Patient encounter procedure 11/16/2024 10:00 AM EST Office Visit [facility] [address] [place] [address] Alondra James NP [address] [place] [address] [facility] Start: 11-02-2024 End: 11-02-2024 Patient encounter procedure [facility] Comment on above: Arrived Start: 10-18-2024 End: 10-18-2024 Patient encounter procedure [facility] Comment on above: Diabetic autonomic neuropathy associated with type 2 diabetes mellitus ([facility]) Start: 09-13-2024 Glaucoma screening Diabetes: Retinopathy Screening [facility] Start: 08-17-2024 Medicare Annual Wellness (AWV) Medicare Annual Wellness (AWV) [facility] Start: 08-15-2024 End: 08-15-2025 25-hydroxyvitamin D3 [Mass/volume] in Serum or Plasma Vitamin D 25 hydroxy Total Lab Routine Type 2 diabetes mellitus with diabetic autonomic (poly)neuropathy ([facility]) Expected: 08/15/2024 (Approximate), Expires: 08/15/2025 [facility] Comment on above: Expected: 08/15/2024 (Approximate), Expi res: 08/15/2025 Start: 08-15-2024 End: 08-15-2025 C-peptide C-peptide Lab Routine Type 2 diabetes mellitus with diabetic autonomic (poly)neuropathy (CMS/HCC) Expected: 08/15/2024 (Approximate), Expires: 08/15/2025 [facility] Work Phone: Comment on above: Expected: 08/15/2024 (Approximate), Expi res: 08/15/2025 Start: 08-15-2024 End: 08-15-2025 Lipid 1996 panel - Serum or Plasma Lipid panel Lab Routine Type 2 diabetes mellitus with diabetic autonomic (poly)neuropathy (CMS/HCC) Expected: 08/15/2024 (Approximate), Expires: 08/15/2025 [facility] Comment on above: Expected: 08/15/2024 (Approximate), Expi res: 08/15/2025 Start: 08-15-2024 End: 08-15-2025 Microalbumin/Creatinine panel in random Urine Microalbumin / creatinine urine ratio Lab Routine Type 2 diabetes mellitus with diabetic autonomic (poly)neuropathy (CMS/HCC) Expected: 08/15/2024 (Approximate), Expires: 08/15/2025 [facility] Comment on above: Expected: 08/15/2024 (Approximate), Expi res: 08/15/2025 Start: 08-15-2024 End: 08-15-2025 Renal function panel Renal function panel Lab Routine Type 2 diabetes mellitus with diabetic autonomic (poly)neuropathy (CMS/HCC) Expected: 08/15/2024 (Approximate), Expires: 08/15/2025 [facility] Comment on above: Expected: 08/15/2024 (Approximate), Expi res: 08/15/2025 Start: 08-15-2024 End: 08-15-2024 Patient encounter procedure [facility] Comment on above: Type 2 diabetes mellitus with hyperglyce loree, with long-term current use of insulin ([facility]/HCC); Type 2 diabetes mellitus with diabetic autonomic (poly)neuropathy ([facility]/HCC) Start: 08-12-2024 Urine screening for protein Diabetes: Urine Protein Screening [facility] Start: 08-01-2024 End: 08-01-2024 Patient encounter procedure [facility] Comment on above: Arrived Start: 07-27-2024 End: 07-27-2025 Hemoglobin A1c/Hemoglobin.total in Blood Hemoglobin A1c Lab Routine Type 2 diabetes mellitus with stage 3a chronic kidney disease, with long-term current use of insulin (HCC) ([facility]) Expected: 07/27/2024 (Approximate), Expires: 07/27/2025 [facility] Work Phone: Comment on above: Expected: 07/27/2024 (Approximate), Expi res: 07/27/2025 Start: 07-20-2024 End: 07-20-2024 Patient encounter procedure 07/20/2024 10:20 AM EST Office Visit [facility] [address] [id number] Ammon Khanna DPM [address] [address] [facility] Start: 06-15-2024 Hemoglobin A1c measurement Diabetes: Hemoglobin A1C [facility] Start: 06-01-2024 End: 06-01-2024 Patient encounter procedure 06/01/2024 9:20 AM EDT Office Visit [facility] [address] [address] Ammon Khanna DPM [address] [address] [facility] Start: 05-14-2024 Influenza vaccination Influenza Vaccine (#1) [facility] Start: 05-03-2024 End: 05-03-2025 CBC W Auto Differential panel - Blood CBC and differential Lab Routine Primary hypertension ([facility]) PAF (paroxysmal atrial fibrillation) ([facility]) Type 2 diabetes mellitus with stage 3a chronic kidney disease, with long-term current use of insulin (HCC) ([facility]) Expected: 05/03/2024 (Approximate), Expires: 05/03/2025 [facility] Comment on above: Expected: 05/03/2024 (Approximate), Expi res: 05/03/2025 Start: 05-03-2024 End: 05-03-2025 Comprehensive metabolic 2000 panel - Serum or Plasma Comprehensive metabolic panel Lab Routine Primary hypertension ([facility]/HCC) PAF (paroxysmal atrial fibrillation) ([facility]) Stage 3a chronic kidney disease (HCC) ([facility]) Type 2 diabetes mellitus with stage 3a chronic kidney disease, with long-term current use of insulin (HCC) ([facility]/HCC) Expected: 05/03/2024 (Approximate), Expires: 05/03/2025 [facility] Comment on above: Expected: 05/03/2024 (Approximate), Expi res: 05/03/2025 Start: 05-03-2024 End: 05-03-2025 Hemoglobin A1c/Hemoglobin.total in Blood Hemoglobin A1c Lab Routine Type 2 diabetes mellitus with stage 3a chronic kidney disease, with long-term current use of insulin (HCC) ([facility]) Expected: 05/03/2024 (Approximate), Expires: 05/03/2025 [facility] Comment on above: Expected: 05/03/2024 (Approximate), Expi res: 05/03/2025 Start: 05-03-2024 End: 05-03-2025 Lipid 1996 panel - Serum or Plasma Lipid panel Lab Routine Mixed hyperlipidemia ([facility]) Expected: 05/03/2024 (Approximate), Expires: 05/03/2025 [facility] Comment on above: Expected: 05/03/2024 (Approximate), Expi res: 05/03/2025 Start: 05-03-2024 End: 05-03-2025 Microalbumin/Creatinine panel in random Urine Microalbumin / creatinine urine ratio Lab Routine Primary hypertension ([facility]) Stage 3a chronic kidney disease (HCC) ([facility]) Type 2 diabetes mellitus with stage 3a chronic kidney disease, with long-term current use of insulin (HCC) ([facility]/HCC) Expected: 05/03/2024 (Approximate), Expires: 05/03/2025 [facility] Work Phone: Comment on above: Expected: 05/03/2024 (Approximate), Expi res: 05/03/2025 Start: 05-03-2024 End: 05-03-2024 Patient encounter procedure 05/03/2024 10:30 AM EDT Office [facility] [address] [place] [address] Tj Ramirez NP [address] [facility] [address] [address] Primary hypertension (CMS/HCC) (Primary Dx); PAF (paroxysmal atrial fibrillation) (CMS/HCC); Stage 3a chronic kidney disease (HCC) (CMS/HCC); Type 2 diabetes mellitus with stage 3a chronic kidney disease, with long-term current use of insulin (HCC) (CMS/HCC); Mixed hyperlipidemia (CMS/HCC) [facility] Comment on above: Primary hypertension (CMS/HCC) (Primary Dx); PAF (paroxysmal atrial fibrillation) (CMS/HCC); Stage 3a chronic kidney disease (HCC) (CMS/HCC); Type 2 diabetes mellitus with stage 3a chronic kidney disease, with long-term current use of insulin (HCC) (CMS/HCC); Mixed hyperlipidemia (CMS/HCC) Start: 05-14-2022 Influenza vaccination INFLUENZA (#1) [facility] Start: 05-12-2022 [facility] Work Phone: Start: 05-12-2022 Esophagogastroduodenoscopy DH EGD (Not Applicable) [facility] Start: 05-12-2022 End: 05-12-2022 Admission to same day surgery center Iron deficiency anemia [facility] Start: 09-13-2021 ADVANCE DIRECTIVE DISCUSSION ADVANCE DIRECTIVE DISCUSSION [facility] Start: 09-20-2019 Pneumococcal Vaccine: 65+ Years (2 of 2 - PPSV23 or PCV20) Pneumococcal Vaccine: 65+ Years (2 of 2 - PPSV23 or PCV20) [facility] Start: 11-14-2015 BONE DENSITY BONE DENSITY [facility] Start: 11-14-1995 COLOGUARD (FIT-DNA) COLOGUARD (FIT-DNA) [facility] Start: 11-14-1995 Colonoscopy COLONOSCOPY [facility] Start: 11-14-1995 COLORECTAL CANCER SCREENING COLORECTAL CANCER SCREENING [facility] Start: 11-14-[address] COLONOGRAPHY [facility] Start: 11-14-1995 FECAL OCCULT BLOOD FECAL OCCULT BLOOD [facility] Start: 11-14-1995 LIPID SCREEN LIPID SCREEN [facility] Start: 11-14-1995 SIGMOIDOSCOPY SIGMOIDOSCOPY [facility] Start: 1990 Mammography MAMMOGRAM [facility] Start: 1969 SHINGRIX VACCINE (1 of 2) SHINGRIX VACCINE (1 of 2) [facility] Start: 1969 Urine microalbumin profile DTAP,TDAP,TD (1 - Tdap) [facility] Start: 1968 HEPATITIS C SCREENING HEPATITIS C SCREENING [facility] Start: 1962 Adult depression screening assessment DEPRESSION SCREENING [facility] Start: 1956 PNEUMOCOCCAL: 65+ (1 - PCV) PNEUMOCOCCAL: 65+ (1 - PCV) [facility] Start: 11-14-1955 COVID-19 VACCINE (#1) COVID-19 VACCINE (#1) [facility] Start: 05-16-1951 COVID-19 VACCINE (#1) COVID-19 VACCINE (#1) [facility] Start: 1950 Screening for malignant neoplasm of colon [facility] BLOOD CULTURE 1 BLOOD CULTURE 1 Lab Routine 11/07/2024 12:10 AM EST [facility] BLOOD CULTURE 2 BLOOD CULTURE 2 Lab Routine 11/07/2024 12:20 AM EST [facility] Glucose [Mass/volume ] in Serum or Plasma GLUCOSE, BLOOD (POC) Lab Routine Iron deficiency anemia due to chronic blood loss Controlled type 2 diabetes mellitus without complication, unspecified whether termination clerk insulin use (HCC) Ordered: 04/14/2022 [facility] Work Phone: Comment on above: Ordered: 04/14/2022 Patient Education Hiatal Hernia (DC) [facility] Work Phone: [facility] Immunizations Immunization Date Immunization Notes Care Provider Darío watts 08-01-2024 influenza, seasonal, injectable, preservative free Tj Ramirez [employer]ENT Work Phone: [facility] 11-11-2021 influenza virus vaccine, unspecified formulation Tj Ramirez NUISANCE [employer]IMAL DAMAGE CONTROL AGENT Work Phone: [facility] 11-11-2021 Influenza, High-dose Seasonal, Quadrivalent, Preservative Free Tj Ramirez NUISANCE ANIMAL DAMAGE CONTROL AGENT Work Phone: [facility] 05-19-2021 influenza virus vaccine, unspecified formulation Tj Ramirez NUISANCE ANIMAL DAMAGE CONTROL AGENT Work Phone: [facility] 05-19-2021 influenza, unspecifi ed formulation Shante Orzech [facility] 01-30-2021 SARS-CoV-2 (COVID-19 ) mRNA BNT-162b2 vax Shante Orzech [facility] Comment on above: Result Comment: 2023: [id number] 01-02-2021 SARS-CoV-2 (COVID-19 ) mRNA BNT-162h4 vax Shante Orzech [facility] 05-14-2020 influenza virus vaccine, unspecified formulation Shante Orzech [facility] 05-14-2020 Influenza, High-dose Seasonal, Quadrivalent, Preservative Free Tj Ramirez NUISANCE ANIMAL DAMAGE CONTROL AGENT Work Phone: [facility] 07-26-2019 pneumococcal conjuga te vaccine, 13 valent Tj Ramirez NUISANCE [employer]IMAL DAMAGE CONTROL AGENT Work Phone: [facility] 06-28-2019 influenza virus vaccine, unspecified formulation Shante Orzech [facility] 06-28-2019 influenza, high dose seasonal, preservative-free Tj Ramirez NUISANCE ANIMAL DAMAGE CONTROL AGENT Work Phone: [facility] 08-22-2018 influenza virus vaccine, unspecified formulation Shante Orzech [facility] 08-22-2018 influenza, seasonal, injectable Tj Ramirez NUISANCE ANIMAL DAMAGE CONTROL AGENT Work Phone: [facility] 06-18-2016 influenza virus vaccine, unspecified formulation Tj Ramirez NUISANCE [employer]IMAL DAMAGE CONTROL AGENT Work Phone: [facility] 06-18-2016 influenza, unspecifi ed formulation Shante Shukla [facility] 06-20-2015 influenza virus vaccine, unspecified formulation Shante Orzeyovani [facility] 06-20-2015 influenza, injectabl e, quadrivalent, preservative free Tj Ramirez NUISANCE ANIMAL DAMAGE CONTROL AGENT Work Phone: [facility] 08-27-2009 novel [id number], preservative-free, injectable Tj Ramirez NUISANCE ANIMAL DAMAGE CONTROL AGENT Work Phone: [facility] Payers Date Payer Category Payer Medicare (Managed Care) [facility] [id number] 2022 Medicaid MEDICAID [facility] MEDICAID [id number] 2022-Present [phone] [address] [place] [address] Medicaid [id number] 2021 Medicare [facility] MEDICARE [facility] DUAL COMPLETE HMO SNP [id number] 2021-Present [phone] [address] [place] [address] Medicare [id number] 2021 Medicare [id number]. [id number] 2019 Medicaid [id number] [id number]. [id number] 1959 Medicaid [id number] 2.16.840.1.903095. 1959 Medicare [id number] 2.16.840.1.162575. 1959 Medicare [id number] 2.16.840.1.690560.19 1959 Private Health Insurance [id number] 1950 Unknown [id number] 2.16.840.1.556596.3.579.2. 593 1950 Unknown [id number] 2.16840.1.049587.3.579.2. 593 1950 Unknown [id number] 2.16.840.1.312974.3.579.2. 593 1950 Unknown [id number] 2.16.840.1.121220.3.579.2. 593 1950 Unknown [id number] 2.16.840.1.258147.3.579.2. 593 1950 Unknown [id number] 2.16.840.1.969751.3.579.2. 593 1950 Unknown [id number] 2.16.840.1.521125.3.579.2. 593 1950 Unknown [id number] 2.16.840.1.520809.3.579.2. 593 1950 Unknown [id number] 2.16.840.1.162121.3.579.2. 593 1950 Unknown [id number] 2.16.840.1.614496.3.579.2. 593 1950 Unknown [id number] 2.16.840.1.496653.3.579.2. 593 1950 Unknown [id number] 2.16.840.1.711882.3.579.2. 593 1950 Unknown [id number] 2.16.840.1.215653.3.579.2. 593 1950 Unknown [id number] 2.16.840.1.010258.3.579.2. 727 1950 Unknown [id number] 2.16.840.1.642571.3.579.2. 727 1950 Unknown [id number] 2.16.840.1.451294.3.579.2. 727 1950 Unknown [id number] 2.16.840.1.149123.3.579.2. 727 1950 Unknown [id number] 2.16.840.1.046496.3.579.2. 727 1950 Unknown [id number] 2.16.840.1.396458.3.579.2. 1259 1950 Unknown [id number] 2.16.840.1.411844.3.579.2. 1259 1950 Unknown [id number] 2.16.840.1.982757.3.579.2. 1259 1950 Unknown [id number] 2.16.840.1.172334.3.579.2. 1259 1950 Unknown [id number] 2.16.840.1.372761.3.579.2. 1259 1950 Unknown [id number] 2.16.840.1.709893.3.579.2. 1259 Medicare Medicare [id number] Private Health Insurance [employer] [id number] Self-pay Self Pay [id number] Social History Date Type Detail Facility Start: 08-17-2023 End: 05-02-2024 Sex Assigned At [facility] Start: 03-31-2016 End: 01-04-2024 Tobacco smoking status NHIS Never smoked tobacco [facility] Start: 03-31-2016 End: 01-04-2024 Tobacco use and exposure Smokeless tobacco non-user [facility] Start: 04-14-2022 End: 04-28-2022 Alcohol intake Current non-drinker of alcohol (finding) [facility] Start: 1950 Sex Assigned At Not on file C [facility] Start: 04-04-2022 End: 05-12-2022 Exposure to SARS-CoV-2 (event) Not sure [facility] Start: 1950 Sex Assigned At Female F [facility] Tobacco smoking status Never [facility] Start: 05-03-2024 End: 11-02-2024 Alcoholic beverage intake Lifetime non-drinker (finding) [facility] [...] Never true [facility] NEGATED: Highlighted rowStart: NINF History of tobacco use Passive smoker [facility] Medical Equipment Procedure Code Equipment Code Equipment Origin al Text Equipment Identifier Dates [id number], [id number], [id number], [id number] Start: 05-19-2023 Goals Date Patient Goal Desired Activity /State Functional Status Date Assessment Result Facility 05-09-2024 Functional Status N/A [facility] 02-29-2024 Functional Status N/A [facility] Clinical Notes 10-14-2021 to 11-10-2024 Estuardo Sanchez MD - 11/10/2024 12:24 PM EST Note Date & Type Note Facility 11-10-2024 History of Presen t illness Narrative Script for cough syrup sent. Would need chart notes for nebulizer machine and likely need to wait until follow up visit. documented in this encounter [facility] 11-10-2024 Evaluation note Diagnosis Anemia due to chronic blood loss- Primary 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, with long-term current use of insulin (HCC) ([facility]) Mixed hyperlipidemia ([facility]) Mixed hyperlipidemia CLL (chronic lymphocytic leukemia) ([facility]) Chronic lymphoid leukemia, without mention of having achieved remission Primary hypertension ([facility]) Unspecified essential hypertension Gastroesophageal reflux disease without esophagitis Esophageal reflux Encounter for Medicare annual wellness exam Screening mammogram for breast cancer Primary hypertension ([facility])- Primary Unspecified essential hypertension PAF (paroxysmal atrial fibrillation) ([facility]) Atrial fibrillation Stage 3a chronic kidney disease (HCC) ([facility]) Type 2 diabetes mellitus with stage 3a chronic kidney disease, with long-term current use of insulin (HCC) ([facility]) Type 2 diabetes mellitus with diabetic autonomic (poly)neuropathy ([facility]) Postural urinary incontinence Primary hypertension ([facility])- Primary Unspecified essential hypertension PAF (paroxysmal atrial fibrillation) ([facility]) Atrial fibrillation Stage 3a chronic kidney disease (HCC) ([facility]) Type 2 diabetes mellitus with stage 3a chronic kidney disease, with long-term current use of insulin (HCC) ([facility]) Mixed hyperlipidemia (CMS/HCC) Mixed hyperlipidemia Chronic obstructive pulmonary disease, unspecified COPD type (CMS/HCC) Gastroesophageal reflux disease without esophagitis Esophageal reflux Type 2 diabetes mellitus without complications (CMS/HCC) Type 2 diabetes mellitus with stage 3a chronic kidney disease, with long-term current use of insulin (HCC) (CMS/HCC)- Primary Type 2 diabetes mellitus with diabetic [...] with long-term current use of insulin (HCC) ([facility]) Influenza A- Primary Influenza with other respiratory manifestations [id number] History of Present illness Narrative* Tj Ramirez NP - 11/02/2024 9:18 AM ESTAssociated Problem(s): Primary hypertension (CMS/HCC) Currently taking Lisinopril 5mg Metoprolol 50mg, Cardizem 240mg Checks BP at home; Averages are 120's/70's. Denies orthostatic changes, dizziness, cough, shortness of breath, swelling in extremities. Continue current regimen. Given BP log, advised pt to record BP and bring log back with them to next visit. * Tj Ramirez NP - 11/02/2024 9:18 AM ESTAssociated Problem(s): Mixed hyperlipidemia ([facility]/HCC) Currently taking Atorvastatin 20mg Denies any myalgias. Continue current regimen. * Tj Ramirez NP - 11/02/2024 9:18 AM ESTAssociated Problem(s): Type 2 diabetes mellitus with stage 3a chronic kidney disease, with long-term current use of insulin (HCC) ([facility]/HCC) Currently taking Novolog 5 units TID, Tresbia [...] taking 8units TID, but was unsure which penwas discontinued and which pen she was supposed [...] monitoring noted. * Tj Ramirez NP - 11/02/2024 9:00 AM EST Images from the original note were not included. Subjective Patient ID: Robina Ron is a 73 y.o. female who presents for Follow-up. HPI Specialists: Cardiology- , [facility]- Urology: Dr. Shukla Oncology/Hematology- Factor [...] taking 8units TID, but was unsure which penwas discontinued and which pen she was supposed [...] disease, with long-term current use of insulin ([facility]) ([facility]) Currently taking Novolog 5 units TID, Tresbia 10units at bedtime Trulicity 1.5mg Farxiga 10mg Most recent labs: hemoglobin A1C 6.6% Average FSBS range from 68-150 Checks BG levels using: Editoriallyyle continuous glucose monitor Several episodes of hypoglycemia in the afternoons. Went to see endocrinology. Novolog was decreased to 5units TID- but pt states she misunderstood and was taking 8units TID, but was unsure which penwas discontinued and which pen she was supposed [...] on home glucose monitoring noted. Mixed hyperlipidemia ([facility]) - Primary Currently taking Atorvastatin 20mg Denies [...] lisinopril 10 MG tablet documented in this [facility] [id number] History of Present illness Narrative* Christopher Garrett MD - 10/18/2024 10:30 AM EST Robina Ron is a 73 [...] 20 mg, Oral, Every morning Continuous Glucose Information Technology Program Manager (Pump AudioStyle Toby 3 [place]) device 1 each, Does not apply, Daily [...] back pain without sciatica Chronic lymphocytic leukemia ([facility]/HCC) Chronic obstructive pulmonary disease, unspecified COPD type ([facility]/HCC) See Dr Serrano. Stable CKD stage 3 due to type 2 diabetes mellitus (HCC) ([facility]) Cr baseline. No change. BP at goal typically FSBS reviewed and slightly above goal. Has not followed with Nephrology for quite sometime DM (diabetes mellitus) ([facility]) BUCKNER (dyspnea on exertion) BUCKNER, on minimal exertion, associated Palpitations. No prior hx of CAD/ ischemic w/u Factor V Leiden ([facility]) Pt needs a refill on her medications today. On Eliquis. NO issues with the medications. NO bleeding. Fatigue, unspecified type reports fatigue, low energy GERD (gastroesophageal reflux disease) History of CVA (cerebrovascular accident) History of hysterectomy Hyperlipidemia ([facility]) Supposed to be on Lovastatin but not [...] Right shoulder pain Secondary pulmonary arterial hypertension ([facility]) Shoulder dislocation, right, sequela Thrombosis of left saphenous vein Type 2 diabetes mellitus ([facility]) Patient was previously on Novolin 70/30 along with Trulicity and Metformin Stopped using Insulin herself as it dropped her blood glucose too low Type 2 diabetes mellitus with diabetic autonomic neuropathy, with long-term current use of insulin ([facility]) Erratic & difficult to control,Partly because of [...] HISTORY 2011 Optho check - DM TONSILLECTOMY 195 TOTAL ABDOMINAL HYSTERECTOMY 1987 VASCULAR SURGERY 2013 [...] neuropathy associated with type 2 diabetes mellitus (CMS/HCC) - POCT glucose manually resulted We will continue his Tresiba 10 units, decrease Humalog to 8 units every meal, continue his Edgcnch06 mg once a day, Trulicity 1.5 mg once weekly Mixed hyperlipidemia (CMS/HCC) Primary hypertension (CMS/HCC) Encounter for dietary consultation Vitamin D deficiency - ergocalciferol (Vitamin D-2) 1.25 MG (88697 UT) capsule; Take 1 capsule (1.25 mg) by mouth 1 (one) time per week Hypoglycemia Microalbuminuria Albumin over creatinine 182 in September/2024 Follow up in about 4 months (around 02/15/2025). documented in this encounter[facility] [id number] Evaluation note* Diagnosis Anemia due to chronic [...] with long-term current use of insulin (HCC) ([facility]) Type 2 diabetes mellitus with diabetic autonomic (poly)neuropathy ([facility]) Postural urinary incontinence Primary hypertension ([facility])- Primary Unspecified essential hypertension PAF (paroxysmal atrial fibrillation) ([facility]) Atrial fibrillation Stage 3a chronic kidney disease (HCC) ([facility]) Type 2 diabetes mellitus with stage 3a chronic kidney disease, with long-term current use of insulin (HCC) ([facility]) Mixed hyperlipidemia ([facility]) Mixed hyperlipidemia Chronic obstructive pulmonary disease, unspecified COPD type ([facility]) Gastroesophageal reflux disease without esophagitis Esophageal reflux Type 2 diabetes mellitus without complications ([facility]) Type 2 diabetes mellitus with stage 3a chronic kidney disease, with long-term current use of insulin ([facility]) ([facility])- Primary Type 2 diabetes mellitus with diabetic autonomic (poly)neuropathy ([facility]) Chronic obstructive pulmonary disease, unspecified COPD type ([facility]) Need for immunization against influenza Need for prophylactic vaccination and inoculation against influenza Primary hypertension ([facility]) Unspecified essential hypertension Diabetic autonomic neuropathy associated with type 2 diabetes mellitus ([facility])- Primary Type II or unspecified type diabetes mellitus with neurological manifestations, not stated as uncontrolled Mixed hyperlipidemia ([facility]) Mixed hyperlipidemia Primary hypertension ([facility]) Unspecified essential hypertension Encounter for dietary consultation Vitamin D deficiency Hypoglycemia Hypoglycemia, unspecified Microalbuminuria Proteinuria documented in this encounter [facility] [id number] History of Present illness Narrative* Christopher Garrett [...] each, 3 times daily PRN Continuous Glucose Information Technology Program Manager (FreeStyle Toby 3 [place]) device 1 each, Does not apply, Daily [...] (ZOFRAN) 4 mg, Every 8 hours PRN Novint Ultra test strip USE TO TEST ONCE [...] [facility]. Pt states she cannot [...] back pain without sciatica Chronic lymphocytic leukemia ([facility]/HCC) Chronic obstructive pulmonary disease, unspecified COPD type ([facility]) See Dr Serrano. Stable CKD stage 3 due to type 2 diabetes mellitus (HCC) ([facility]) Cr baseline. No change. BP at goal typically FSBS reviewed and slightly above goal. Has not followed with Nephrology for quite sometime DM (diabetes mellitus) ([facility]) BUCKNER (dyspnea on exertion) BUCKNER, on minimal exertion, associated Palpitations. No prior hx of CAD/ ischemic w/u Factor V Leiden ([facility]) Pt needs a refill on her medications today. On Eliquis. NO issues with the medications. NO bleeding. Fatigue, unspecified type reports fatigue, low energy GERD (gastroesophageal reflux disease) History of CVA (cerebrovascular accident) History of hysterectomy Hyperlipidemia ([facility]) Supposed to be on Lovastatin but not [...] Right shoulder pain Secondary pulmonary arterial hypertension ([facility]) Shoulder dislocation, right, sequela Thrombosis of left saphenous vein Type 2 diabetes mellitus ([facility]) Patient was previously on Novolin 70/30 along with Trulicity and Metformin Stopped using Insulin herself as it dropped her blood glucose too low Type 2 diabetes mellitus with diabetic autonomic neuropathy, with long-term current use of insulin ([facility]) Erratic & difficult to control,Partly because of [...] 2 diabetes mellitus with diabetic autonomic (poly)neuropathy ([facility]/HCC) - POCT glucose manually resulted - POCT [...] I will stop insulin 70/30 and start Njcmsvl27 units at bedtime, NovoLog 3-4-5 according to meal size plus scale 1. Instruction given, continuehis Farxiga 10 mg, continue with Trulicity 1.5 mg once a day we will check lab before next visit including C-peptide Mixed hyperlipidemia (CMS/[facility]) Primary hypertension ([facility]) Encounter for dietary consultation Diet and exercise reviewed with the patient Vitamin D deficiency Hypoglycemia Class 1 obesity due to excess calories with serious comorbidity and body mass index (BMI) of 31.0 to 31.9 in adult Follow up in about 3 months (around 2024). documented in this encounter[facility] [id number] Evaluation note* Diagnosis Anemia due to chronic blood loss- Primary 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, with long-term current use of insulin (HCC) (CMS/HCC) Mixed hyperlipidemia (CMS/HCC) Mixed hyperlipidemia CLL (chronic lymphocytic leukemia) ([facility]/HCC) Chronic lymphoid leukemia, without mention of having [...] with long-term current use of insulin (HCC) ([facility]/HCC) Type 2 diabetes mellitus with diabetic autonomic (poly)neuropathy ([facility]/HCC) Postural urinary incontinence Primary hypertension ([facility]/HCC)- Primary Unspecified essential hypertension PAF (paroxysmal atrial fibrillation) ([facility]/HCC) Atrial fibrillation Stage 3a chronic kidney disease (HCC) ([facility]/HCC) Type 2 diabetes mellitus with stage 3a chronic kidney disease, with long-term current use of insulin (HCC) ([facility]/HCC) Mixed hyperlipidemia ([facility]/HCC) Mixed hyperlipidemia Chronic obstructive pulmonary disease, unspecified COPD type ([facility]/HCC) Gastroesophageal reflux disease without esophagitis Esophageal reflux Type 2 diabetes mellitus without complications ([facility]/HCC) Type 2 diabetes mellitus with stage 3a chronic kidney disease, with long-term current use of insulin (HCC) ([facility])- Primary Type 2 diabetes mellitus with diabetic autonomic (poly)neuropathy ([facility]/HCC) Chronic obstructive pulmonary disease, unspecified COPD type ([facility]/HCC) Need for immunization against influenza Need for prophylactic vaccination and inoculation against influenza Primary hypertension ([facility]/HCC) Unspecified essential hypertension Type 2 diabetes mellitus with diabetic autonomic (poly)neuropathy ([facility]/HCC)- Primary Mixed hyperlipidemia ([facility]/HCC) Mixed hyperlipidemia Primary hypertension ([facility]/HCC) Unspecified essential hypertension Encounter for dietary consultation Vitamin D deficiency Hypoglycemia Hypoglycemia, unspecified Class 1 obesity due to excess calories with serious comorbidity and body mass index (BMI) of 31.0 to 31.9 in adult documented in this encounter [facility] [id number] NoteCardiology Follow Up Progress Note HPI: Robina Ron is a 73 y.o. female who has a past medical history of Abnormal ECG, Anemia, Arrhythmia, Atrial fibrillation ([facility]/HCC), Chronic kidney disease, Clotting disorder ([facility]/HCC), Diabetes mellitus ([facility]), Hyperlipidemia, Hypertension, Pericardial effusion, and Stroke ([facility]). Patient here for 3 mo follow up hypertension, PAF, Factor V Leiden, and pericardial effusion. Lisinopril was reduced to 5mg at last apt in Apr 2024. She was admitted to [facility] in May 2024 for sepsis. Denies chest [...] as needed Edd Wade MD Interventional Cardiology [facility]11-19-2024 History of Present illness Narrative* Tj [...] disease, with long-term current use of insulin ([facility]) ([facility]) Most recent labs: hemoglobin A1C 7.1% needs [...] Chronic obstructive pulmonary disease, unspecified COPD type ([facility]) Using rescue inhaler 1-2 times per month. Feels symptoms are well controlled. No longer follows pulmonolgy * Tj Ramirez NP - 08/01/2024 10:00 AM EST Images from the original note were not included. Subjective Patient ID: Robina Ron is a 73 y.o. female who presents for Hypertension. HPI Specialists: Follows Cardiology- , [facility]- Follows Urology: Dr. Shukla Sees Oncology/Hematology- Factor V Was admitted to [facility] on 06/03/2024 for colitis and septic shock. [...] R ALBUMIN GLOBULIN RATIO 1.1 Resulting Agency [facility] DMII: Most recent labs: hemoglobin [...] with long-term current use of insulin (HCC) ([facility]/HCC) - Primary Most recent labs: hemoglobin A1C 7.1% needs rechecked today. Average FSBS range from 68-150 Checks BG levels using: Editoriallyyle continuous glucose monitor Several episodes of hypoglycemia [...] diabetes mellitus with diabetic autonomic (poly)neuropathy (CMS/HCC) Relevant Medications insulin NPH-insulin regular (HumuLIN 70/30 KWIKPEN) (70-30) 100 UNIT/ML injection Other Relevant Orders Ambulatory referral to Endocrinology POCT glycosylated hemoglobin (Hb A1C) docked device (Completed) Need for immunization against influenza Relevant Orders Flu vaccine greater than or equal to 3 years old, preservative free IM (Completed) documented in this [facility]11-19-2024 Instructions* Patient Instructions* Tj Ramirez [...] carbohydrates, and simple sugars. documented in this [facility]11-04-2024 Telephone encounter Note* Telephone Encounter [...] you know Alondra [facility] Work Phone: [phone]) 881-312211-04-2024 Miscellaneous Notes* Telephone Encounter - Alondra James [...] you know Alondra documented in this encounterSaint [facility] [id number] Evaluation + Plan note Diagnostic Tests Pending * Urine Culture 05/09/24 [facility] [id number] Hospital Discharge instructions Patient Education 05/09/2024 10:01:16 [...] nerve stimulation). ?For women, using a medical coding technician to prevent urine leaks. This is a [...] right after experiencing incontinence. General instructions Take blru-wrm-hwmrjfg and prescription medicines only as told by [...] important. Where to find more information [employer]: www.niddk.nih.gov [employer]: www.urologyhealth.org Contact a health care [...] provider. Document Revised: 04/04/2021 Document Reviewed: 04/04/2021 [employer] Patient Education 2022 [employer]. 05/09/2024 10:01:15 Overactive Bladder, Adult Overactive Bladder, [...] your health care provider. General instructions Take wxzt-hxj-fxosdzi and prescription medicines only as told by [...] provider. Document Revised: 05/19/2021 Document Reviewed: 05/19/2021 [employer] Patient Education 2022 [employer]. Follow Up Care 02/29/2024 11:11:11 With:AMALIA Shukla APRN, NAHEED Tate, URL Address: When: Unknown Comments:6 months [facility] 08-27-2024 NotePatient Education Obstetrics and Gynecology Overactive [...] health care provider. General instructions ? Take xrbh-lpf-kxjgmup and prescription medicines only as told by [...] help your health care (more content not included)...[facility]08-26-2024 NoteCardiology Follow Up Progress Note [...] normal, Judgment normal, Mood normal. Assessment/Plan: Robina oRn is a 73 y.o. female with Benign [...] as needed Edd Wade MD Interventional Cardiology [facility]08-21-2024 History of Present illness Narrative* Tj [...] Problem(s): Stage 3 chronic kidney disease (HCC) ([facility]) Continue Farxiga. Monitor labs. CMP ordered today. * Tj Ramirez NP - 05/03/2024 2:18 PM EDTAssociated Problem(s): Primary hypertension ([facility]) Has been checking BP at home States BP is running in 170's at home but is great today in office. Will bring in BP cuff for comparison. Continue Metoprolol and diltiazem as ordered. * Tj Ramirez NP - 05/03/2024 2:14 PM EDTAssociated Problem(s): Chronic obstructive pulmonary disease, unspecified COPD type ([facility]) Using rescue inhaler 1-2 times per month [...] presents for Follow-up. HPI Follows Cardiology- , [facility]- next appointment unsure Follows Urology: [...] with long-term current use of insulin (HCC) ([facility]) States 14 day average 168 A1C needs completed. Ordered today No episodes of hypoglycemia No medication adverse effects reported by the patient. Stressed upon importance of checking blood glucose at home and bring blood glucose log to appointments. On NPH/Regular (70/30) 15 units q12, Farxiga, Trulicity and Glipizide. Relevant Medications Continuous Glucose Information Technology Program Manager (FreeStyle Toby 3 [place]) device Continuous Glucose Sensor (FreeStyle Toby 3 Plus Sensor) misc Other Relevant Orders Microalbumin / creatinine urine ratio Comprehensive metabolic panel CBC and differential Hemoglobin A1c Ambulatory referral to Podiatry Mixed hyperlipidemia ([facility]) Continue Lipitor 20mg Lipid panel ordered today. Relevant Orders Lipid panel Primary hypertension ([facility]) - Primary Has been checking BP at [...] Protonix as directed. PAF (paroxysmal atrial fibrillation) (CMS/[facility]) Relevant Orders Comprehensive metabolic panel CBC and differential Stage 3 chronic kidney disease (HCC) ([facility]) Continue Farxiga. Monitor labs. CMP ordered today. Relevant Orders Microalbumin / creatinine urine ratio Comprehensive metabolic panel Chronic obstructive pulmonary disease, unspecified COPD type ([facility]) Using rescue inhaler 1-2 times per month Feels symptoms are well controlled. No longer follows pulmonolgy Other Visit Diagnoses Type 2 diabetes mellitus without complications ([facility]) Relevant Medications Continuous Glucose Information Technology Program Manager (FreeStyle Toby 3 [place]) device Continuous Glucose Sensor (FreeStyle Toby 3 Plus Sensor) misc documented in this [facility]08-21-2024 Instructions* Patient Instructions* Tj Ramirez NP - [...] carbohydrates, and simple sugars. documented in this [facility]07-02-2024 NoteCardiology Follow Up Progress Note [...] normal, Judgment normal, Mood normal. Assessment/Plan: Robina Rno is a 73 y.o. female with Shortness [...] as needed Edd Wade MD Interventional Cardiology [facility]06-23-2024 NoteChief Complaint Referral *Incontinence HPI Staff [...] with voice recognition artificial intelligence software, specifically [employer] and or [employer]. Substitutions may have occurred due to the [...] with diabetic autonomic (poly)neuropathy (more content not included)...[facility] CenterComment on above:Result Comment: Electronically Signed By: AMALIA Shukla APRN, [place] [employer]\.br\Date and Time Signed: 03/05/24 22:19 [id number] Miscellaneous Notes* Telephone Encounter - Makenna Kednall RN - 04/21/2022 1:47 PM EDT Pt has follow up appointment with Dr Rainey tomorrow. Makenna Kendall RN * Telephone Encounter - Makenna Kendall RN - 04/21/2022 1:31 PM EDT Spoke with Pankaj at Dr Rainey's office. Recent records and labs faxed to [phone] per office request. Makenna Kendall RN * Telephone Encounter - Makenna Kendall RN - 04/21/2022 12:54 PM EDT Message left with Dr Rainey's director global medical affairs again today regarding this pt and the [...] [facility]. Call placed to their office ([phone]) and message left requesting a call back. PSS: can you please update pt's PCP info. Thanks, Makenna Kendall RN * Telephone Encounter - Christi Fink MD - 04/14/2022 1:39 PM EDT Thanks. Can we have her PCP address this, Thanks * Telephone Encounter - Christy Byrd RN - 04/14/2022 1:23 PM EDT Key Monteiro from [facility] Client Services calls to report critical results: Glucose - 506 Pt identifiers and results read back for verification. Christy Byrd RN [facility] Miscellaneous Notes* Telephone Encounter - Adrienne Weinstein Pss - 04/16/2022 9:06 AM EDT Called [facility]élic[facility] Romano spoke with Kenyatta. She states they have patient scheduled to see Dr Patel on 05/12 for EGD. Adrienne Dodson * Telephone Encounter - Adrienne Weinstein Pss - 04/13/2022 1:16 PM EDT Called Angélica Romano spoke with Kenyatta. She states they have called left patient message to call them back to schedule. Adrienne Weinstein Pss * Telephone Encounter - Adrienne Weinstein Pss - 04/09/2022 8:38 AM EDT Called Angélica Romano spoke with Kenyatta. She states they have received this referral and their referral dept will be calling patient soon to schedule. I will call back sometime next week check on status of this referral. Adrienne Weinstein Pss * Telephone Encounter - Shaye Gonzalez [facility] - 04/06/2022 8:57 AM EDT Records faxed to Dr. Rich. * Telephone Encounter - Adrienne Roth Pss - 04/06/2022 8:12 AM EDT Gladys: Information ready for you. Adrienne Weinstein Pss * Telephone Encounter - Makenna Hidalgo Sec - 04/06/2022 7:47 AM EDT Images from the original note were not included. Please send records to [facility] office thanks! MD Tj Thompson; Makenna Hidalgo Sec Please refer her to GI for an upper endoscopy. Thanks [facility]* Encounter Date Diagnosis Assessment Notes Treatment Notes Treatment Clinical Notes Apr, Anemia due to blood loss, chronic (ICD-10 - D50.0) [facility] Other 08-02-2022 NoteHNO ID: [id number] Author: Brenda Tavera RN Service: ? Author [...] noted. She has verbalized understanding [facility]da [facility]avera [facility] NoteHNO ID: [id number] Author: Christi Fink MD Service: ? Author Type: Physician Type: Progress Notes Filed: 04/14/2022 1:13 PM Note Text: PATIENT NAME: Robina Ron CLINIC NO.: [id number] ATTENDING PHYSICIAN: Christi Fink MD DATE OF [...] g/dL Final RDW-CV Date (more content not included)...[facility]08-02-[facility] History of Present illness Narrative* [...] understanding Brenda Tavera RN documented [facility]22 NoteHNO ID: [id number] Author: Christi Fink MD Service: ? Author Type: Physician Type: Progress Notes Filed: 04/04/2022 11:07 AM Note Text: PATIENT NAME: Robina Ron CLINIC NO.: [id number] ATTENDING PHYSICIAN: Christi Fink MD DATE OF [...] not taking: Reported on 03/31/2022 ) - Jgnwu-0-OGH-EPA-Fish Oil 1,000 mg (120 mg-180 mg) cap [...] PAST MEDICAL HISTORY Diagnosis Date - A-fib ([facility]) - Anemia - Asthma - Chronic low back pain with sciatica - COPD (chronic obstructive pulmonary disease) ([facility]) - CVA (cerebral (more content not included)...[facility] 12-22-2021 NoteCARDIAC STRESS TEST Requesting [...] interpreted and reported in a separate dictation. [facility] Signed and Approved by: DR ALFRED SUGGS 03/03/2022 10:18:00[facility]02-01-2022 Evaluation note* Encounter Date Diagnosis Assessment [...] We discussed that there will be a senior living cosmetic deformity at the AC joint, however, relatively normal function can return. If termination clerk pain and dysfunction occur, surgical treatment can be considered. Patient given order for physical therapy. [facility] Other Evaluation + Plan note Future Appointments Appointment Date:04/11/2024 09:00:00 AM Scheduled Provider:AMALIA Shukla APRN, [place] [facility] Appointment Type:URO Office Visit [facility] evaluation + Plan note Future Appointments Appointment Date:04/11/2024 09:00:00 AM Scheduled Provider:AMALIA Shukla APRN, [place] [facility] Appointment Type:URO Office Visit Diagnostic Tests Pending * [facility] Iron deficiency anemia due to chronic blood loss- Primary Iron deficiency anemia secondary to blood loss (chronic) Controlled type 2 diabetes mellitus without complication, unspecified whether senior living insulin use (HCC) [facility] Diagnosis Iron deficiency anemia due to chronic blood loss- Primary Iron deficiency anemia secondary to blood loss (chronic) [facility] Diagnosis Iron deficiency anemia due to chronic blood loss- Primary Iron deficiency anemia secondary to blood loss (chronic) [facility] Diagnosis Iron deficiency anemia due to chronic blood loss- Primary Iron deficiency anemia secondary to blood loss (chronic) [facility] Diagnosis Iron deficiency anemia due to chronic blood loss- Primary Iron deficiency anemia secondary to blood loss (chronic) [facility] Diagnosis Onset Date Resolution Status Iron deficiency anemia [facility] Work Phone: Evaluation note* Diagnosis Anemia due to chronic blood loss- Primary 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, with long-term current use of insulin (HCC) ([facility]/HCC) Mixed hyperlipidemia ([facility]/HCC) Mixed hyperlipidemia CLL (chronic lymphocytic leukemia) ([facility]) Chronic lymphoid leukemia, without mention of having achieved remission Primary hypertension ([facility]) Unspecified essential hypertension Gastroesophageal reflux disease without esophagitis Esophageal reflux Encounter for Medicare annual wellness exam Screening mammogram for breast cancer Primary hypertension ([facility])- Primary Unspecified essential hypertension PAF (paroxysmal atrial fibrillation) ([facility]/HCC) Atrial fibrillation Stage 3a chronic kidney disease (HCC) ([facility]) Type 2 diabetes mellitus with stage 3a chronic kidney disease, with long-term current use of insulin (HCC) ([facility]/HCC) Type 2 diabetes mellitus with diabetic autonomic (poly)neuropathy ([facility]/HCC) Postural urinary incontinence Primary hypertension ([facility]/HCC)- Primary Unspecified essential hypertension PAF (paroxysmal atrial fibrillation) ([facility]/HCC) Atrial fibrillation Stage 3a chronic kidney disease (HCC) ([facility]) Type 2 diabetes mellitus with stage 3a chronic kidney disease, with long-term current use of insulin (HCC) (CMS/HCC) Mixed hyperlipidemia (CMS/HCC) Mixed hyperlipidemia Chronic obstructive pulmonary disease, unspecified COPD type (CMS/HCC) Gastroesophageal reflux disease without esophagitis Esophageal reflux Type 2 diabetes mellitus without complications ([facility]/HCC) Type 2 diabetes mellitus with stage 3a chronic kidney disease, with long-term current use of insulin (HCC) ([facility]/HCC)- Primary Type 2 diabetes mellitus with diabetic autonomic (poly)neuropathy ([facility]/HCC) Chronic obstructive pulmonary disease, unspecified COPD type ([facility]/HCC) Need for immunization against influenza Need for prophylactic vaccination and inoculation against influenza Primary hypertension ([facility]) Unspecified essential hypertension [facility] Diagnosis Anemia due to chronic blood loss- Primary 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, with long-term current use of insulin (HCC) ([facility]/HCC) Mixed hyperlipidemia ([facility]/HCC) Mixed hyperlipidemia CLL (chronic lymphocytic leukemia) ([facility]) Chronic lymphoid leukemia, without mention of having achieved remission Primary hypertension ([facility]/HCC) Unspecified essential hypertension Gastroesophageal reflux disease without esophagitis Esophageal reflux Encounter for Medicare annual wellness exam Screening mammogram for breast cancer Primary hypertension ([facility]/HCC)- Primary Unspecified essential hypertension PAF (paroxysmal atrial fibrillation) ([facility]/HCC) Atrial fibrillation Stage 3a chronic kidney disease (HCC) ([facility]/HCC) Type 2 diabetes mellitus with stage 3a chronic kidney disease, with long-term current use of insulin (HCC) ([facility]/HCC) Type 2 diabetes mellitus with diabetic autonomic (poly)neuropathy ([facility]/HCC) Postural urinary incontinence Primary hypertension ([facility]/HCC)- Primary Unspecified essential hypertension PAF (paroxysmal atrial fibrillation) ([facility]/HCC) Atrial fibrillation Stage 3a chronic kidney disease (HCC) ([facility]/HCC) Type 2 diabetes mellitus with stage 3a chronic kidney disease, with long-term current use of insulin (HCC) ([facility]/HCC) Mixed hyperlipidemia ([facility]/HCC) Mixed hyperlipidemia Chronic obstructive pulmonary disease, unspecified COPD type ([facility]/HCC) Gastroesophageal reflux disease without esophagitis Esophageal reflux Type 2 diabetes mellitus without complications ([facility]/HCC) Type 2 diabetes mellitus with stage 3a chronic kidney disease, with long-term current use of insulin (HCC) ([facility]/HCC)- Primary Type 2 diabetes mellitus with stage 3a chronic kidney disease, with long-term current use of insulin (HCC) ([facility]/HCC)- Primary Type 2 diabetes mellitus with diabetic autonomic (poly)neuropathy ([facility]/HCC) Chronic obstructive pulmonary disease, unspecified COPD type ([facility]/HCC) Need for immunization against influenza Need for prophylactic vaccination and inoculation against influenza Primary hypertension ([facility]/HCC) Unspecified essential hypertension documented in this encounter [facility]* Diagnosis Primary hypertension (CMS/HCC)- Primary Unspecified essential hypertension PAF (paroxysmal atrial fibrillation) ([facility]/HCC) Atrial fibrillation Stage 3a chronic kidney disease (HCC) ([facility]/HCC) Type 2 diabetes mellitus with stage 3a chronic kidney disease, with long-term current use of insulin (HCC) ([facility]/HCC) Mixed hyperlipidemia ([facility]/HCC) Mixed hyperlipidemia Chronic obstructive pulmonary disease, unspecified COPD type ([facility]/HCC) Gastroesophageal reflux disease without esophagitis Esophageal reflux Type 2 diabetes mellitus without complications ([facility]) documented in this encounter [facility]* Diagnosis Anemia due to chronic blood loss- Primary 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, with long-term current use of insulin (HCC) ([facility]/HCC) Mixed hyperlipidemia ([facility]/HCC) Mixed hyperlipidemia CLL (chronic lymphocytic leukemia) ([facility]) Chronic lymphoid leukemia, without mention of having achieved remission Primary hypertension ([facility]/HCC) Unspecified essential hypertension Gastroesophageal reflux disease without esophagitis Esophageal reflux Encounter for Medicare annual wellness exam Screening mammogram for breast cancer Primary hypertension ([facility])- Primary Unspecified essential hypertension PAF (paroxysmal atrial fibrillation) ([facility]/HCC) Atrial fibrillation Stage 3a chronic kidney disease (HCC) ([facility]) Type 2 diabetes mellitus with stage 3a chronic kidney disease, with long-term current use of insulin (HCC) ([facility]/HCC) Type 2 diabetes mellitus with diabetic autonomic (poly)neuropathy ([facility]/HCC) Postural urinary incontinence Primary hypertension ([facility]/HCC)- Primary Unspecified essential hypertension PAF (paroxysmal atrial fibrillation) ([facility]/HCC) Atrial fibrillation Stage 3a chronic kidney disease (HCC) ([facility]/HCC) Type 2 diabetes mellitus with stage 3a chronic kidney disease, with long-term current use of insulin (HCC) ([facility]/HCC) Mixed hyperlipidemia ([facility]/HCC) Mixed hyperlipidemia Chronic obstructive pulmonary disease, unspecified COPD type ([facility]) Gastroesophageal reflux disease without esophagitis Esophageal reflux Type 2 diabetes mellitus without complications ([facility]/HCC) Type 2 diabetes mellitus with stage 3a chronic kidney disease, with long-term current use of insulin (HCC) (CMS/HCC)- Primary Type 2 diabetes mellitus with diabetic [...] Surgical History choliectomy Hospitalization History listed above [facility] Other Hospital course Narrative No data available for this section [facility] Discharge instructions No data available for this section [facility] Surgical progress note No data available for this section [facility] Surgical reason for referral (narrative)* Consultation (Routine) - Authorized Specialty Diagnoses / Procedures Referred By Ly infante Referred To Contact Podiatry Diagnoses Type 2 diabetes mellitus with stage 3a chronic kidney disease, with long-term current use of insulin (HCC) ([facility]) Procedures RI OFFICE/OUTPATIENT NEW HIGH MDM 60 MINUTES Tj Ramirez NP [address] [place] [id number] Ammon Khanna DPM [address] [place] [address] Referral ID Status Reason Start Date Expiration Date Visits Requested Visits Authorized [id number] Authorized Specialty Services Required 05/03/2024 10/30/2024 1 [...] PER 1 MG Christi Fink MD [address] [place] [address] Jasiel Treat [facility] [address] [facility] [place] [address] Referral ID Status Reason Start Date Expiration Date V isits Requested Visits Authorized [id number] Authorized 04/03/2022 09/12/2022 99 99 Reason Comments Appointment Confirmation Reason Comments Critical Results Glucose Reason Comments Hypertension Reason Comments Diabetes NEW REF ONLY Specialty Diagnoses / Procedures Referred By Ly t Referred To Contact Endocrinology Diagnoses Type 2 diabetes mellitus with diabetic autonomic (poly)neuropathy (CMS/HCC) Procedures RI OFFICE/OUTPATIENT NEW HIGH MDM Tj Ramirez, JOSE [address] [place] [address] Phone: tel: fax: Christopher Garrett MD [address] [place] [address] Phone: tel: fax: Referral ID Status Reason Start Date Expiration Date V isits Requested Visits Authorized [id number] Closed Specialty Services Required 08/01/2024 01/28/2025 1 [...] or prosecute any alcohol or drug abuse patient.[facility] HospitalIn the event this information is protected by the Federal Confidentiality of Alcohol and Drug Abuse Patient Records regulations: The Federal rules restrict any use of the information to criminally investigate or prosecute any alcohol or drug abuse patient.[facility] HospitalIn the event this information is protected by the Federal Confidentiality of Alcohol and Drug Abuse Patient Records regulations: The Federal rules restrict any use of the information to criminally investigate or prosecute any alcohol or drug abuse patient.[facility] HospitalIn the event this information is protected by the Federal Confidentiality of Alcohol and Drug Abuse Patient Records regulations: The Federal rules restrict any use of the information to criminally investigate or prosecute any alcohol or drug abuse patient.[facility] HospitalIn the event this information is protected by the Federal Confidentiality of Alcohol and Drug Abuse Patient Records regulations: The Federal rules restrict any use of the information to criminally investigate or prosecute any alcohol or drug abuse patient.[facility] HospitalIn the event this information is protected by the Federal Confidentiality of Alcohol and Drug Abuse Patient Records regulations: The Federal rules restrict any use of the information to criminally investigate or prosecute any alcohol or drug abuse patient.[facility] HospitalIn the event this information is protected by the Federal Confidentiality of Alcohol and Drug Abuse Patient Records regulations: The Federal rules restrict any use of the information to criminally investigate or prosecute any alcohol or drug abuse patient.[facility] Care Teams (unrecognized sec tion and content) C.O.D. Audit Clerk Relationship Specialty Start Date End Date Shaikh Sparks MD [address] [place] [place] [address] PCP - General Primary Care 04/14/22 C.O.D. Audit Clerk Relationship Specialty Start Date End Date Demetrio Joseph PCP - General Family Practice 03/09/16 04/13/22 Shaikh Sparks MD [address] [place] [address] PCP - General Primary Care 04/14/22 C.O.D. Audit Clerk Relationship Specialty Start Date End Date Shaikh Sparks MD [address] [place] [address] PCP - General Primary Care 04/14/22 C.O.D. Audit Clerk Relationship Specialty Start Date End Date Shaikh Sparks MD [address] [place] [address] PCP - General Primary Care 04/14/22 C.O.D. Audit Clerk Relationship Specialty Start Date End Date Shaikh Sparks MD [address] [place] [address] PCP - General Primary Care 04/14/22 C.O.D. Audit Clerk Relationship Specialty Start Date End Date Shaikh Sparks MD [address] [place] [address] PCP - General Primary Care 04/14/22 C.O.D. Audit Clerk Relationship Specialty Start Date End Date Shaikh Sparks MD [address] [place] [place] [address] PCP - General Primary Care 04/14/22 Team Status: Inactive Member Role Status Dates Hood Patel MD Attending Provider Active Shaikh Clare MD Primary Care Provider Active Team Status: Active Member Role Status Dates Shaikh Clare MD Primary Care Provider Active C.O.D. Audit Clerk Relationship Specialty Start Date End Date Estuardo Sanchez MD [address] [place] [address] PCP - General Family Medicine 04/18/24 Tj Ramirez NP [address] [place] [address] Nurse Practitioner Family Medicine 04/18/24 C.O.D. Audit Clerk Relationship Specialty Start Date End Date Estuardo Sanchez MD [address] [place] [address] PCP - General Family Medicine 04/18/24 Tj Ramirez NP [address] [place] [address] Nurse Practitioner Family Medicine 04/18/24 C.O.D. Audit Clerk Relationship Specialty Start Date End Date Estuardo Sanchez MD [address] [place] [address] PCP - General Family Medicine 04/18/24 Tj Ramirez NP [address] [place] [address] Nurse Practitioner Family Medicine 04/18/24 C.O.D. Audit Clerk Relationship Specialty Start Date End Date Estuardo Sanchez MD [address] [place] [address] PCP - General Family Medicine 04/18/24 Tj Ramirez NP [address] [place] [address] Nurse Practitioner Family Medicine 04/18/24 C.O.D. Audit Clerk Relationship Specialty Start Date End Date Estuardo Sanchez MD [address] [place] [address] PCP - General Family Medicine 04/18/24 Tj Ramirez NP [address] [place] [address] Nurse Practitioner Family Medicine 04/18/24 C.O.D. Audit Clerk Relationship Specialty Start Date End Date Estuardo Sanchez MD [address] [place] [address] PCP - General Family Medicine 04/18/24 Tj Ramirez NP [address] [place] [address] Nurse Practitioner Family Medicine 04/18/24 C.O.D. Audit Clerk Relationship Specialty Start Date End Date Estuardo Sanchez MD [address] [place] [address] PCP - General Family Medicine 04/18/24 Tj Ramirez NP [address] [place] [address] Nurse Practitioner Family Medicine 04/18/24 C.O.D. Audit Clerk Relationship Specialty Start Date End Date Estuardo Sanchez MD [address] [place] [address] PCP - General Family Medicine 04/18/24 Tj Ramirez NP [address] [place] [address] Nurse Practitioner Family Medicine 04/18/24 C.O.D. Audit Clerk Relationship Specialty Start Date End Date Estuardo Sanchez MD [address] [place] [address] PCP - General Family Medicine 04/18/24 Tj Ramirez NP [address] [place] [address] Nurse Practitioner Family Medicine 04/18/24 C.O.D. Audit Clerk Relationship Specialty Start Date End Date Estuardo Sanchez MD [address] [place] [address] PCP - General Family Medicine 04/18/24 Tj Ramirez NP [address] [place] [address] Nurse Practitioner Family Medicine 04/18/24 C.O.D. Audit Clerk Relationship Specialty Start Date End Date Estuardo Sanchez MD [address] [place] [address] PCP - General Family Medicine 04/18/24 Shaikh Sparks MD [address] [place] [address] PCP - Carlos MAX 08/13/24 Tj Ramirez NP [address] [place] [address] Nurse Practitioner Family Medicine 04/18/24 C.O.D. Audit Clerk Relationship Specialty Start Date End Date Estuardo Sanchez MD [address] [place] [address] PCP - General Family Medicine 04/18/24 Shaikh Sparks MD [address] [place] [address] PCP - [place] 08/13/24 Tj Ramirez NP [address] [place] [address] Nurse Practitioner Family Medicine 04/18/24 C.O.D. Audit Clerk Relationship Specialty Start Date End Date Estuardo Sanchez MD [address] [place] [address] PCP - General Family Medicine 04/18/24 Tj Ramirez NP [address] [place] [address] Nurse Practitioner Family Medicine 04/18/24 C.O.D. Audit Clerk Relationship Specialty Start Date End Date Estuardo Sanchez MD [address] [place] [address] PCP - General Family Medicine 04/18/24 Tj Ramirez NP [address] [place] [address] Nurse Practitioner Family Medicine 04/18/24 C.O.D. Audit Clerk Relationship Specialty Start Date End Date Estuardo Sanchez MD [address] [place] [address] PCP - General Family Medicine 04/18/24 Tj Ramirez NP [address] [place] [address] Nurse Practitioner Family Medicine 04/18/24 C.O.D. Audit Clerk Relationship Specialty Start Date End Date Estuardo Sanchez MD [address] [place] [address] PCP - General Family Medicine 04/18/24 Tj Ramirez NP [address] [place] [address] Nurse Practitioner [facility] 04/18/24 INFORMATION SOURCE (unrecogn ized section and content) DATE CREATED AUTHOR 05/14/2022 [facility] DATE CREATED AUTHOR AUTHOR'S ORGANIZ ATION 05/16/2022 [facility] DATE CREATED AUTHOR AUTHOR'S ORGANIZ ATION 07/07/2022 [facility] DATE CREATED AUTHOR AUTHOR'S ORGANIZ ATION 03/03/2024 [facility] DATE CREATED AUTHOR AUTHOR'S ORGANIZ ATION 05/10/2024 [facility] DATE CREATED AUTHOR AUTHOR'S ORGANIZ ATION 05/11/2024 [facility] DATE CREATED AUTHOR AUTHOR'S ORGANIZ ATION 07/15/2024 [facility] DATE CREATED AUTHOR AUTHOR'S ORGANIZ ATION 08/07/2024 [facility] DATE CREATED AUTHOR AUTHOR'S ORGANIZ ATION 11/04/2024 [facility] EPIC FOR RECORDS PERTAINING [...] BE BASED ON THE PRIMARY CLINICAL RECORDS. [facility]. provides no warranty or guarantee of the accuracy or completeness of information in this document.
--- NOTE | 2024-11-10 19:10 | PC.NURSE ---
this patient complains of a cough for the past 2 weeks, plus her son states she was Dx with the flu a couple weeks ago this patient voices no other concerns and shows o signs of distress
--- NOTE | 2024-11-10 19:42 | ECG_ITS ---
[facility] Test Date: 2024-11-10 Pat Name: CHEY RON Department: Room: - Gender: Female Museum Informatics Specialist: : 1950 Requested By: [id number] Order Number: [id number] Reading MD: ERMIAS LÓPEZ Measurements Intervals [place] Rate: 77 P: 146 RI: 216 QRS: 26 QRSD: 94 T: -4 QT: 384 QTc: 416 Interpretive Statements 1220 Rapid atrial rhythm 1474 with frequent supraventricular premature complexes 2231 First degree AV block 9150 abnormal ECG Electronically Signed On 11-12-2024 8:11:13 EST by ERMIAS LÓPEZ
[2024-11-10 20:18] LABS: Eosinophils Percent Auto 0.2 % (0.9-7.0); Hematocrit 32.7 % (36.0-48.0); Hemoglobin 10.4 g/dL (12.0-16.0); Immature Granulocytes Abs Auto 0.05 10^3/uL (0.00-0.03); Immature Granulocytes Pct Auto 0.8 % (0.0-0.5); Lymphocytes Absolute Auto 0.9 10^3/uL (1.2-3.8); Lymphocytes Percent Auto 13.7 % (20.5-60.0); Mean Corpuscular HGB Conc 31.8 g/dL (29.9-35.2); Mean Corpuscular Hemoglobin 27.1 pg (26.7-34.0); Mean Corpuscular Volume 85.2 fL (81.0-99.0); Mean Platelet Volume 9.5 fL (9.5-13.5); Monocytes Absolute Auto 0.3 10^3/uL (0.3-0.8); Monocytes Percent Auto 4.5 % (1.7-12.0); Neutrophils Absolute Auto 5.2 10^3/uL (1.4-6.5); Neutrophils Percent Auto 80.8 % (43.0-75.0); Platelet Count 106 10^3/uL (150-450); Red Blood Count 3.84 10^6/uL (4.20-5.40); Red Cell Distribution Width 16.3 % (11.0-15.0); White Blood Count 6.4 10^3/uL (4.0-11.0)
[2024-11-10 20:32] LABS: INR 0.93; Prothrombin Time 9.9 sec (9.0-11.6)
[2024-11-10 20:36] LABS: Lactate/Lactic Acid 1.9 mmol/L (0.4-2.0)
[2024-11-10 20:42] LABS: Alanine Aminotransferase 59 U/L (14-59); Albumin Globulin Ratio 0.9; Albumin Level 2.6 g/dL (3.4-5.0); Alkaline Phosphatase 95 U/L (46-116); Anion Gap 13.8; Aspartate Amino Transferase 23 U/L (15-37); BUN Creatinine Ratio 27.8; Bilirubin Total 0.4 mg/dL (0.2-1.0); Calcium 8.2 mg/dL (8.5-10.1); Carbon Dioxide 24.6 mmol/L (21.0-32.0); Chloride 109 mmol/L (98-107); Estimated GFR (African America 50 (>=60 mL/min/1.73m^2); Estimated GFR (Non-African Ame 42 (>=60 mL/min/1.73m^2); Glucose 103 mg/dL (74-106); Potassium 4.4 mmol/L (3.5-5.1); Sodium 143 mmol/L (136-145); Total Protein 5.6 g/dL (6.4-8.2); Troponin I High Sensitivity 8.8 pg/mL (4.0-51.3)
[2024-11-10] MEDS: IPRATROPIUM/ALBUTEROL SULFATE 3 ML AMPUL.NEB IH (20:46)
--- NOTE | 2024-11-10 21:13 | ED_ITS ---
HPI - SOB/Dyspnea General Chief Complaint: Shortness of Breath/Dyspnea Stated Complaint: COUGH, CONGESTION-HERE YESTERDAY Time Seen by Provider: 11/10/24 17:25 Source: patient and family Mode of arrival: Wheelchair Limitations: no limitations History of Present Illness HPI Narrative: The patient is a 72-year-old female who is coming to the ER after she was just discharged yesterday from the hospital, with shortness of breath that increased, the patient has not been able to get out of the bed because she is very short of breath and she has this cough that is nagging She did eat today and she denies any nausea or vomiting or any diarrhea Related Data Home Medications ?Medication ?Instructions ?Recorded ?Confirmed albuterol sulfate 90 mcg/actuation 2 inh inhalation Q6H PRN shortness 06/03/24 11/06/24 aerosol inhaler of breath or wheezing apixaban 5 mg tablet (Eliquis) 5 mg PO Q12H 06/03/24 11/06/24 atorvastatin 20 mg tablet 20 mg PO .QD 06/03/24 11/06/24 dapagliflozin propanediol 10 mg 10 mg PO .QD 06/03/24 11/06/24 tablet (Farxiga) diltiazem HCl 240 mg 240 mg PO Q24H 06/03/24 11/06/24 capsule,extended release 24 hr dulaglutide 1.5 mg/0.5 mL 1.5 mg subcut .WEEKLY 06/03/24 11/06/24 subcutaneous pen injector ([facility]) lisinopril 5 mg tablet 5 mg PO .QD 06/03/24 11/06/24 metoprolol tartrate 50 mg tablet 50 mg PO Q12H 06/03/24 11/06/24 pantoprazole 40 mg tablet,delayed 40 mg PO .Q24 06/03/24 11/06/24 release trazodone 50 mg tablet 50 mg PO .QHS 06/03/24 11/06/24 trospium 20 mg tablet 20 mg PO Q12H 06/03/24 11/06/24 ergocalciferol (vitamin D2) 1,250 1,250 mcg PO QWEEK 11/06/24 11/07/24 mcg (50,000 unit) capsule glipizide 5 mg tablet 5 mg PO .bidac 11/06/24 11/07/24 insulin lispro 100 unit/mL subcut 11/06/24 subcutaneous pen lancets 33 gauge (OneTouch Delica 11/06/24 11/06/24 Plus Lancet) pen needle, diabetic 31 gauge x 11/06/24 11/06/24 5/16 (BD Ultra-Fine Short Pen Needle) Previous Rx's ?Medication ?Instructions ?Recorded insulin degludec 100 unit/mL (3 15 unit (0.15 mL) subcut .qhs #0 mL 11/09/24 mL) subcutaneous pen (Tresiba FlexTouch U-100 insulin) ipratropium 0.5 mg-albuterol 3 mg 3 ml inhalation Q6H PRN Shortness 11/09/24 (2.5 mg base)/3 mL nebulization Of Breath Or Wheezing 30 days #1 mL soln oseltamivir 30 mg capsule 30 mg PO Q24H 3 days #3 caps 11/09/24 prednisone 20 mg tablet 20 mg PO BID 7 days #14 tabs 11/09/24 Allergies Allergy/AdvReac Type Severity Reaction Status Date / Time oxycodone (From Percocet) Allergy Agitated Verified 11/10/24 16:09 Review of Systems ROS Status of ROS 10 or more systems reviewed and unremark able except as noted in history and below [facility] Medical History (Updated 11/10/24 @ 21:20 by Amelia Slade MD) Moderate protein malnutrition ?E44.0 - Moderate protein-calorie malnutrition (ICD-10) Oropharyngeal dysphagia ?R13.12 - Dysphagia, oropharyngeal phase (ICD-10) Colitis ?K52.9 - Noninfective gastroenteritis and colitis, unspecified (ICD-10) HLD (hyperlipidemia) ?E78.5 - Hyperlipidemia, unspecified (ICD-10) Chronic diastolic heart failure ?I50.32 - Chronic diastolic (congestive) heart failure (ICD-10) Paroxysmal A-fib ?I48.0 - Paroxysmal atrial fibrillation (ICD-10) TIA (transient ischemic attack) ?G45.9 - Transient cerebral ischemic attack, unspecified (ICD-10) CLL (chronic lymphocytic leukemia) ?C91.10 - Chronic lymphocytic leukemia of B-cell type not having achieved remission (ICD-10) Factor 5 Leiden mutation, heterozygous ?D68.51 - Activated protein C resistance (ICD-10) Diabetes ?E11.9 - Type 2 diabetes mellitus without complications (ICD-10) High cholesterol ?E78.00 - Pure hypercholesterolemia, unspecified (ICD-10) Overactive bladder ?N32.81 - Overactive bladder (ICD-10) HTN (hypertension) ?I10 - Essential (primary) hypertension (ICD-10) Surgical History Cataracts, both eyes ?H26.9 - Unspecified cataract (ICD-10) History of cholecystectomy ?Z90.49 - Acquired absence of other specified parts of digestive tract (ICD- 10) H/O: hysterectomy ?Z90.710 - Acquired absence of both cervix and uterus (ICD-10) Family History Father Family history of CHF (congestive heart failure) Mother Family history of cancer Family history of hypertension Social History Within the past year, how often did you have a drink containing alcohol: never Score interpretation: A score less than 3 is consistent with normal alcohol consumption. Smoking status: Never smoker Non-prescribed substance use: denies use Previous occupational history: disabled Highest level of school completed/degree received: high school graduate Are you now , , , , never or living with a partner: In a typical week, how many times do you talk on the telephone with family, friends, or neighbors: 3 or more times per week How often do you get together with friends or relatives: 3 or more times per week Little interest or pleasure in doing things: not at all Feeling down, depressed, or hopeless: not at all Feel stressed/tense/nervous/anxious/difficulty sleeping: not at all Do you think of yourself as: decline to answer Gender Identity: female Exam Narrative Exam Narrative: Nurses notes and vital signs reviewed and patient is not hypoxic. General: Well-appearing and in no apparent distress. Skin: Warm, dry, no pallor noted. No rash. Head: Normocephalic, atraumatic. Neck: Supple, non-tender. Eye: Pupils are equal, round and EOMI. No scleral icterus. Ears, Nose, Mouth, and Throat: TM are clear, no nasal mucosal hypertrophy. Oral mucosa is moist, no posterior oropharynx erythema, uvula is mid-line Cardiovascular: Regular Rate and Rhythm without murmur, gallop or rub. Respiratory: Decreased air entry bilaterally with distant breathing sounds and rhonchi heard in both lung [place] Back: No midline thoracic or lumbar vertebral tenderness. No CVA tenderness Musculoskeletal: normal ROM, no calf or popliteal tenderness, no lower extremi ty edema/swelling GI: Abdomen is soft, non-distended. Normal bowel sounds. No masses appreciated. No tenderness to palpation. No rebound, guarding, or rigidity noted. Neurological: A&O x4. No cranial nerve dysfunction observed. Constitutional Vital Signs, click to edit/add: Last Vital Signs Temp 99.6 F 11/10/24 16:09 Pulse 78 11/10/24 20:47 Resp 18 11/10/24 20:47 BP 125/78 11/10/24 20:30 Pulse Ox 99 11/10/24 20:47 O2 Del Method Nasal Cannula 11/10/24 20:47 O2 Flow Rate 2 11/10/24 20:47 Course Vital Signs Vital signs: Vital Signs Temperature 99.6 F 11/10/24 16:09 Pulse Rate 61 11/10/24 16:09 Respiratory Rate 20 11/10/24 16:09 Blood Pressure 103/54 11/10/24 16:09 Pulse Oximetry 96 11/10/24 16:09 Oxygen Delivery Method Room Air 11/10/24 16:09 Temperature 99.6 F 11/10/24 16:09 Pulse Rate 78 11/10/24 20:47 Respiratory Rate 18 11/10/24 20:47 Blood Pressure 125/78 11/10/24 20:30 Pulse Oximetry 99 11/10/24 20:47 Oxygen Delivery Method Nasal Cannula 11/10/24 20:47 Oxygen Delivery Flow Rate 2 11/10/24 20:47 MDM - SOB/Dyspnea MDM Narrative Medical decision making narrative: It was noted upon my evaluation that the patient pulse ox was 88% on room air and she does not use any oxygen at home She was placed on 2 L nasal cannula and saturating right now 98% The patient chest x-ray today showing significant changes compared to the last time she was here and the x-ray showing bilateral opacities with multifocal pneumonia possibly The patient CBC and chemistry showed that the patient elevated BNP around 4000 which is a new finding Patient EKG showing sinus arrhythmia which is mostly secondary to her COPD exacerbation The patient case was discussed with Dr. Cárdenas in cardiology service and he recommended the patient be started on Lasix as well as admitted for further evaluation with an echo as well The patient case was discussed with and she agreed with above-mentioned plan , pt will be admitted under Dr Sullivan Lab Data Labs: Lab Results 11/10/24 Range/Units 20:03 WBC 6.4 (4.0-11.0) 10^3/uL RBC 3.84 L (4.20-5.40) 10^6/uL Hgb 10.4 L (12.0-16.0) g/dL Hct 32.7 L (36.0-48.0) % MCV 85.2 (81.0-99.0) fL MCH 27.1 (26.7-34.0) pg MCHC 31.8 (29.9-35.2) g/dL RDW 16.3 H (11.0-15.0) % Plt Count 106 L (150-450) 10^3/uL MPV 9.5 (9.5-13.5) fL Neut % (Auto) 80.8 H (43.0-75.0) % Lymph % (Auto) 13.7 L (20.5-60.0) % [place] % (Auto) 4.5 (1.7-12.0) % Eos % (Auto) 0.2 L (0.9-7.0) % Baso % (Auto) 0.0 L (0.2-2.0) % Neut # (Auto) 5.2 (1.4-6.5) 10^3/uL Lymph # (Auto) 0.9 L (1.2-3.8) 10^3/uL [place] # (Auto) 0.3 (0.3-0.8) 10^3/uL Eos # (Auto) 0.0 (0.0-0.7) 10^3/uL Baso # (Auto) 0.0 (0.0-0.1) 10^3/uL Abs Immat Gran (auto) 0.05 H (0.00-0.03) 10^3/uL Imm/Tot Granulo (auto) 0.8 H (0.0-0.5) % PT 9.9 (9.0-11.6) sec INR 0.93 Sodium 143 (136-145) mmol/L Potassium 4.4 (3.5-5.1) mmol/L Chloride 109 H (98-107) mmol/L Carbon Dioxide 24.6 (21.0-32.0) mmol/L Anion Gap 13.8 BUN 35.0 H (7.0-18.0) mg/dL Creatinine 1.26 H (0.55-1.02) mg/dL Est GFR ( Amer) 50 L (>=60 mL/min/1.73m^2) Est GFR (Non-Af Amer) 42 L (>=60 mL/min/1.73m^2) BUN/Creatinine Ratio 27.8 Glucose 103 (74-106) mg/dL Lactate 1.9 (0.4-2.0) mmol/L Calcium 8.2 L (8.5-10.1) mg/dL Total Bilirubin 0.4 (0.2-1.0) mg/dL AST 23 (15-37) U/L ALT 59 (14-59) U/L Alkaline Phosphatase 95 (46-116) U/L Troponin I High Sens 8.8 (4.0-51.3) pg/mL NT-Pro-B Natriuret Pep 4869.0 H* (<=900.0) pg/mL Total Protein 5.6 L (6.4-8.2) g/dL Albumin 2.6 L (3.4-5.0) g/dL Globulin 3.0 g/dL Albumin/Globulin Ratio 0.9 Discharge Plan Discharge Chief Complaint: Shortness of Breath/Dyspnea Clinical Impression: COPD with acute exacerbation, CHF (congestive heart failure) Patient Disposition: Admitted As Inpatient Time of Disposition Decision: 21:20
[2024-11-10] MEDS: METHYLPREDNISOLONE SOD SUCC PF 40 MG/ML VIAL IVP (21:33)
[2024-11-10] MEDS: FUROSEMIDE 20 MG/2 ML VIAL IVP (21:33)
[2024-11-10] MEDS: CEFTRIAXONE 1,000 MG in 0.9 % SODIUM CHLORIDE 50 ML 100 MG IV (21:53)
[2024-11-10] MEDS: AZITHROMYCIN 500 MG in 0.9 % SODIUM CHLORIDE 250 ML 250 MG IV (22:38)
--- OUTSIDE RECORDS SUMMARY | 2024-11-10 23:47 | XMS_ITS | CCD ---
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 Name Role Phone Lawanda Alvarez Unavailable Shaikh [...] Admitting Unavailable FAWWAD, WATERS Primary Care Physician [phone] Shante Shukla Attending Unavailable FAWWAD, WATERS Referring Unavailable Orzech Shante X Attending Unavailable Orzech, Shante X Admitting Unavailable Orzech, Shante X Attending Unavailable Orzech, Shante X Attending Unavailable Orzech, Shante X Admitting Unavailable Orzech, Shante X Attending Unavailable Estuardo Sanchez MD Primary Care Provider [phone] Ashley GARCIA, Tj Unavailable ALGHOTHANI, MOHAMAD Attending Unavailable ALGHOTHANI, MOHAMAD Attending Unavailable ALGHOTHANI, MOHAMAD Attending Unavailable Shaikh Sparks MD Unavailable CHRISTOPHER GARRETT Attending Unavailable TJ RAMIREZ Attending SHAIKH Mckeon Attending Unavailable TJ RAMIREZ Attending UnavailTJ Singleton Attending CHRISTOPHER Mcmahon Attending Unavailable TJ RAMIREZ Referring Nydia e RamirezTj ding NP Unavailable Allergies Allergy Classification Reported Allergen(s) Allergy Type Date of Onset Reaction(s) Facility Acetaminophen / oxyCODONE (1 source) Acetaminophen / oxyCODONE; Translations: [acetaminophen-ox ycodone] Drug Allergy Sleep terror disorder (disorder) [facility] Anticholinergics (1 source) tiotropium; Translations: [tiotropium] Drug Allergy Pharyngeal swelling (finding), Tongue swelling (finding) [facility] Opioid Agonists (1 source) oxyCODONE; Translations: [oxycodone] Drug Allergy Sleep terror disorder (disorder) [facility] (13 sources) Acetaminophen / oxyCODONE; Translations: [acetaminophen-ox ycodone] Drug Allergy 03-31-20 16 Mental Status Change, Anaphylaxis, Sleep terror disorder (disorder) [facility] (9 sources) tiotropium; Translations: [tiotropium] Drug Allergy anaphylaxis, Pharyngeal swelling (finding), Tongue swelling (finding) [facility] (7 sources) Budesonide / formoterol Drug Allergy 03-31-20 22 Other: See Comments [facility] (20 sources) tiotropium Drug Allergy 03-31-20 16 Unknown [facility] (20 sources) oxyCODONE; Translations: [Oxycodone] Drug Allergy 05-01-20 19 Sleep terror disorder (disorder), Anxiety [facility] (4 sources) Acetaminophen / oxyCODONE; Translations: [Percocet] Drug Allergy 08-02-20 15 [facility] (20 sources) Acetaminophen / oxyCODONE; Translations: [OXYCODONE-ACETAM INOPHEN] Drug Allergy 08-12-20 15 Anxiety, Unknown, Anaphylaxis, Hallucinations [facility] (20 sources) Budesonide-Formot fernando Fumarate Drug Allergy 08-17-20 23 Swelling [facility] Medications Current Medications Medication Drug Class(es) Dates Sig (Normalized) Sig (Original) [id number] 200 actuat albuterol 0.09 mg/actuat metered dose [...] 237 mL 11/10/2024 11/16/2024 Active Continuous Glucose Wallpaper Scraper (FreeStyle Toby 3 [place]) device (20 sources) Start: 05-03-2024 Continuous Glucose Wallpaper Scraper (FreeStyle Toby 3 [place]) device Indications: Type 2 diabetes mellitus with stage 3a chronic kidney disease, with long-term current use of insulin ([facility]) ([facility]) , Type 2 diabetes mellitus without complications ([facility]) 1 each Daily 1 each 05/03/2024 Active Continuous Glucose Sensor (FreeStyle Toby 3 Plus Sensor) misc (4 sources) Start: 05-03-2024 End: 05-31-2024 Continuous Glucose Sensor (FreeStyle Toby 3 Plus Sensor) misc Indications: Type 2 diabetes mellitus with stage 3a chronic kidney disease, with long-term current use of insulin (HCC) ([facility]) , Type 2 diabetes mellitus without complications ([facility]) 1 each Daily for 28 days 2 each 11 05/03/2024 05/31/2024 Active dapagliflozin 10 mg oral tablet (20 sources) Sodium-Glucose Cotransporter 2 Inhibitor Start: 11-25-2023 End: 05-23-2024 take 1 tablet by mouth once daily Farxiga 10 MG Indications: Type 2 diabetes mellitus with stage 3a chronic kidney disease, with long-term current use of insulin (HCC) ([facility]) TAKE 1 TABLET BY MOUTH EVERY [...] 2 diabetes mellitus with diabetic autonomic (poly)neuropathy (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; Translations: [PROJECT SYSTEMS ENGINEER CURRENT USE OF INSULIN] Onset: 01-28-2022 Episodic Other aftercare (1 source) Other penitentiary (current) drug therapy; Translations: [OTH PROJECT SYSTEMS ENGINEER CURRENT DRUG THERAPY] Onset: 12-24-2021 Episodic Other aftercare (1 source) prison (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 oral hypoglycemic drugs; Translations: [PROJECT SYSTEMS ENGINEER USE ORAL HYPOGLYCEMIC DX] Onset: 12-24-2021 Episodic Other aftercare (1 source) superintendent container terminal (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 anticoagulants; Translations: [HALF-WAY CURRNT USE ANTICOAGULANTS] Onset: 12-24-2021 Episodic Other [...] on 10-18-2024 Glucose Blood, POC 142 mg/dL [facility] TBH MICROALB CREAT RATIO RAN DOMon 10-14-2024 CREATININE URINE RANDOM 98.65 mg/dL 20.00 - 300.00 mg/dL [facility] Interpretation and review of laboratory results Abnormal [facility] MICROALBUM CREATININE RATIO UR 182.4 mg/g High 0.0 - 29.9 mg/g [facility] Comment on above: NO MICROALBUMINURIA 0-29 MG/G CLINICAL MICROALBUMINURIA 30-300 MG/G MACROALBUMINURIA >300 MG/G MICROALBUMIN URINE RANDOM 18 mg/dL NINF - 30.0 mg/dL [facility] Glucose (Bld) [Mass/Vol]Orde red By: Nalini Carrero on 08-15-2024 Glucose Blood, POC 249 mg/dL [facility] No Panel InformationOrdered By: Nalini Carrero on 08-15-2024 [facility] POCT glycosylated hemoglobin (Hb A1C) docked deviceon 08-15-2024 HbA1c (Bld) [Mass fraction] 7 % [facility] Office Visiton 08-04-2024 Follow-up visit [id number] AriadneRobina H 1950 F Date Provider Department Center 08/04/2024 Dorota-EDD WADE Family History Problem Relation Age of Onset Pulmonary embolism Father Family Status - Relation Status Age at Father Level of Service:55348 [place] OFFICE/OUTPATIENT ESTABLISHED LOW MDM 20 MIN Normal [facility] HbA1c (Bld) [Mass fraction]o n 08-01-2024 Interpretation and review of laboratory results Abnormal [facility] Laboratory - Hematology and Cell countson 08-01-2024 HbA1c (Bld) [Mass fraction] 6.6 % [facility] FACTOR V LEIDEN MUTATIONon 0 06-05-2024 Interpretation and review of laboratory results Abnormal [facility] FACTOR V LEIDEN MUTATION Comment Abnormal . 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 See Additional Clinical Information and Comments. Additional Clinical Information: Venous thromboembolism is a multifactorial disease influenced by genetic, environmental, and circumstantial risk factors. The c.1601G>A (p. [id number]) variant in the F5 gene, commonly referred [...] c.*97G>A variant and Factor V Leiden (PMID: 11160050). Additional risk factors include but are not [...] health care providers to discuss results at [phone] ([phone]). Test Details: Variant Analyzed: c.1601G>A (p. [id number]), referred to as Factor V Leiden Methods/Limitations: [...] developed and its performance characteristics determined by [employer]. It has not been cleared or approved by the Food and Drug Administration. References: Gualberto S, Vika LOPEZ, Cullen R, Gary WW, Justin JH; ACMG Professional Practice and Guidelines Committee. Addendum: [place] [employer] consensus statement on factor V Leiden mutation testing. Jennifer Med. 2020Nov 15. doi: 10.1038/v16774-330-48423-l. PMID: 28524379. Keira MORENO. Factor V Leiden Thrombophilia. 1998January 24 (Updated 2017Sep 16). In: Tray MP, Raul HH, Shahida RA, et al., editors. Rayna(R) (Internet). [place] ([place]): [facility], [place]; 1358-6835. Available from: https://www.ncbi.nlm.nih.gov/books/IQC7446/ Kirit S, Vika LOPEZ, Robert X, Ranjan B, Malia EB, Janina P, Chetan CS; ACMG Laboratory Mental Health Technician Committee. Venous thromboembolism laboratory testing (factor V Leiden and factor II c.*97G>A), 2018 update: a technical standard of the [place] [employer] and Genomics (ACMG). Jennifer Med. 2017;20(12):4313-2057. doi: 10.1038/[id number]-x. Epub 2017Jun 17. PMID: 36302365. [facility] REVIEWED BY Comment . [facility] Comment on above: Technical Component performed at [facility] RT Professional Component performed by: [employer] Xavi Rogers, Ph.D., [facility] Director, Molecular Genetics [address] [place] [address] [place] [address] Performed at: [facility] RT [address] [facility] [place] [place] [id number] Gang Pusher: Fidelina Vasquez [facility], Phone: [phone] [facility] No Panel Informationon 05-18 [facility] PROTEIN C-FUNCTIONALon 05-18 PROTEIN C-FUNCTIONAL 159 % 73 - 180 % [facility] Comment on above: Performed at: [address] [id number] Gang Pusher: Katlyn Shabazz MD, Phone: [phone] PROTEIN S-ANTIGENon 05-18-20 24 PROTEIN S, FREE 103 % 61 - 136 % [facility] PROTEIN S, TOTAL 117 % 60 - 150 % [facility] Comment on above: This test was develo ped and its performance characteristics determined by [employer]. It has not been cleared or approved [...] drugs. C Urineon 05-11-2024 Bacteria identified [facility] (U) Microbiology PROCEDURE: Urine Culture [R1] SOURCE: U CleanCat BODY SITE: COLLECTED DATE/TIME: 05/09/2024 09:55 EDT RECEIVED DATE/TIME: 05/09/2024 18:41 EDT START DATE/TIME: 05/09/2024 18:41 EDT FREE TEXT SOURCE: Gayla HON, CHIEF RECORDIST-C, Gayla HON, CHIEF RECORDIST-C, Shante X Shante X FINAL REPORTS Final [...] Locations R1: This test was performed at: [facility], [address] [place] [address], [address]- , [place], [facility] Comment on above: Performed By: #### 2 [id number] #### [facility] [address] [place] [id number] Ambulatory Visit Summaryon 0 05-09-2024 Ambulatory Visit [...] Duration: 90 Days Refills: 3 Pickup at [facility]/pharmacy #[id number] Unchanged atorvastatin (atorvastatin 20 mg Tab) 90 [...] physician if questions or concerns Pharmacy Information [facility]/pharmacy #[id number]: [address] [place], [place] [phone] What How Much When Comments Stop Taking [...] Unspecifie (more content not included)... Normal [facility] Reminderson 05-09-2024 Reminders Reminders From: Anushka Carroll To: EU - Administrative; Sent: 05/09/2024 10:23:22 EDT Show up: 08/13/2024 10:23:00 EST Subject: Ambulatory Reminder Due Date/Time: 10/23/2024 10:22:00 EST Reminder/Recall Patient needs scheduled with AO for a 6 month f/u, due back mid October 2024 Normal [facility] Urology Office/Clinic Noteon 05-09-2024 Urology Office/Clinic [...] with voice recognition artificial intelligence software, specifically what3words, Bangee and or PureC[employer]. Substitutions may have occurred due to the [...] BID, # 60 tab(s), Refills(s) 2, Pharmacy: [facility]/pharmacy #[id number], 155, cm, 02/29/24 10:38:00 EDT, Height/Length Dosing, 66.5, kg, 02/29/24 10:38:00 EDT, Weight Dosing trospium, 20 mg = 1 tab(s), Oral, BID, X 90 day(s), # 180 tab(s), Refills(s) 3, Pharmacy: [facility]/pharmacy #[id number], 155, cm, 05/09/24 9:05:00 EDT, Height/Length Dosing, 66.5, kg, 05/09/24 9:05:00 EDT, Weight Dosing 21540 Measure Post Void residual urine and/or bladder capacity by US- non-imaging Urine Culture Urnls Dip Stick Auto w/o Microscopy POC 11117 2. Mixed incontinence (N39.46: Mixed incontinence) UUI >>> LEW See #1 Ordered: 65269 Measure Post Void residual urine and/or bladder capacity by US- non-imaging Urine Culture Urnls Dip Stick Auto w/o Microscopy POC 79060 3. Asymptomatic microscopic hematuria (R31.21: Asymptomatic microscopic [...] Improved to 2 times per night Ordered: 74772 Measure Post Void residual urine and/or bladder capacity by US- non-imaging Urine Culture Urnls Dip Stick Auto w/o Microscopy POC 48825 5. Unspecified urethral stricture, female (N35.92: Unspecified urethral stricture, female) s/p cystoscopy/UD 01/09/2019 by ELHAM [1] Ordered: 69566 Measure Post Void residual urine and/or bladder capacity by US- non-imaging Urine Culture Urnls Dip Stick Auto w/o Microscopy POC 82211 6. Glucosuria (R81: Glycosuria) 3+ on UA [...] (cerebrovascular (more content not included)... Normal [facility] Comment on above: Result Comment: Elec tronically Signed By: AMALIA Shukla APRN, [place] X\.br\Date and Time Signed: 05/09/24 10:01 EDT ALL CBC WITH AUTO DIFFon BASOPHILS ABSOLUTE AUTO 0.0 [facility] Basophils/100 WBC (Bld) 0.3 % 0.2 - 2.0 % [facility] Eosinophils/100 WBC (Bld) 1.2 % 0.9 - 7.0 % [facility] Erythrocyte distribution width (RBC) [Ratio] 14.1 % 11.0 - 15.0 % [facility] Hematocrit (Bld) [Volume fraction] 42.8 % 36.0 - 48.0 % [facility] Hemoglobin (Bld) [Mass/Vol] 14.1 g/dL 12.0 - 16.0 g/dL [facility] IMMATURE GRANULOCYTES ABS AUTO 0.07 High [facility] Immature granulocytes/100 WBC (Bld) 0.6 % High 0.0 - 0.5 % [facility] Interpretation and review of laboratory results Abnormal [facility] LYMPHOCYTES ABSOLUTE AUTO 3.0 [facility] Lymphocytes/100 WBC (Bld) 26.4 % 20.5 - 60.0 % [facility] MCH (RBC) [Entitic mass] 30.0 pg 26.7 - 34.0 pg [facility] MCHC (RBC) [Mass/Vol] 32.9 g/dL 29.9 - 35.2 g/dL [facility] MCV (RBC) [Entitic vol] 91.1 fL 81.0 - 99.0 fL [facility] MONOCYTES ABSOLUTE AUTO 0.7 [facility] Monocytes/100 WBC (Bld) 5.7 % 1.7 - 12.0 % [facility] NEUTROPHILS ABSOLUTE AUTO 7.6 High [facility] Neutrophils/100 WBC (Bld) 65.8 % 43.0 - 75.0 % [facility] Platelet mean volume (Bld) [Entitic vol] 8.0 fL Low 9.5 - 13.5 fL [facility] TBH EO # 0.1 [facility] TB PLT 167 [facility] TB RBC 4.70 [facility] TB WBC 11.5 High [facility] Office Visiton 05-08-2024 Follow-up visit [id number] AriadneMaggieRobina H 1950 F Date Provider Department Center 05/08/2024 [facility]8-ALGHOTHANI, MOHAMAD BH CARD [facility] Family History Problem Relation Age of Onset Pulmonary embolism Father Family Status - Relation Status Age at Father Level of Service:01528 [place] OFFICE/OUTPATIENT ESTABLISHED LOW MDM 20 MIN [facility] 36on 04-11-[address] Wade reviewed patient's echo from 04/05/2024 and said it was ok. Spoke with patient and made her aware. She was unable to schedule Oct follow up because she didn't have her son's schedule with her. I advised she would get a phone call in May to schedule an apt for Oct. She verbalized understanding. [facility] Office Visiton 03-14-2024 Follow-up visit [id number] Maggie Ronmonse Steele 1950 F Date Provider Department Center 03/14/2024 Harini8-EDD WADE JOHNATHON Zaragoza Family History Problem Relation Age of Onset Pulmonary embolism Father Family Status - Relation Status Age at Father Level of Service:11431 [place] OFFICE/OUTPATIENT ESTABLISHED MOD MDM 30 MIN [facility] Coding Summary.on 03-07-2024 Coding Summary. HIXPKtsy22IWb7uGc+PG h lYWQ+BL1ZFFWqX81rjYLf eY3eZ3CGXOzOOpgiPLGCX AbPOtIgboUqSZ9eaJPwBC Ju IC8+HU1uFXYpTeefhCMfv 8E0hWI5V58nst7rOYbbdG M3VAUiZzTbqswne7qzzYw 6IDcuNmluOyBt TXKhwV80KIM5rA82Pf52h VUcbCUtv1jnpRz2FcOpOH WaDAX0uGqgCXoek0FeIQB fP36nsLTdo2Z9 OSXndPifaMGbPjWifLS8z S7yDTpagcpcj4fvcuhyLs d7du30sWZyq0R0bVE2B0O vgxH0QNRxoRIy FxgosQDPjU4zveyui6qfc kgbPjVsVLNfEBe4WSs2KP IdqWhdAsVuVB77IAG6DCI lybDtU1XfWRMu lDdgLwL3u3T6Sf8FS1RZZ zqrK5QQYNPQDIdefFP+PC 13nj80K9WsEejtWeu7CDJ xJQX6hAZ3hS0r RBVpOFcmc8V5xDI3I1Xxe mSxmt7fv1jpSONzUEzdH8 4rdWIbq0Y0ERGgkMR1QWD gcEexWmBtyV69 Oyc+HNZjcUzrh3NkWrxfd 2ilb1uumFd9EnkqRBHlai HqgElfJTD6p5RpGz5kMXF ybGX4gQB7kO0n NkKjIdA4BXfgJ287WePil JGnUfpzC37sH0CxwAO+PH QcCvl0KKMgeZezPM1kF9L hZGRpbmctbGVm tHirMZ7lSNAotfptFYUrh C0jZNAlR4v7YmNgZnG1HV uuP8KpIKSncctpWc04yJ6 nDsVlEmB0GLyg R9FckgA3PMDspYBaZDhoJ WQ1R97cl7E5RWDtQNInQH F8kXY2tB8pqKsdgrqdwTB mdDsgdmVydGlj QVxaPJriN681YOIbvRltZ kNvZGluZyBEYXRlOiAgMD YvMjUvMjAyNDwvdGQ+PHR jBTX2fPiiERSd hPQsBSzoNc7xbFkfxWwfN W3zHREgtvrxYVQnfV8zWZ HraESnoXfqAF7fIZSxrlo yd168PlLrHUA7 PEYswUVjW1TmyX2xWnPeL OJcAECrF2WpmSCoFFwkH4 34SCmaXoE1MEDfsrOtT4S sLWFsaWduOiB0 a2W6Ox5Ih2RgyjivH5Bvt HLbMvTdOsrwLTd9T5XvMe wvdHI+EB38VKDsEH32MFv 3YIZ0nZmjFVwy OKVoX7JakW8wYhLnTRNjN GRkOyc+PHRhYmxlIHdpZH RoPScxMDAlJyBzdHlsZT0 hZs2zJCUzSESd bBvifFHwIgJpy2hjUCUgB LzfME0kyNcoE1KqjBC7NZ Bfw9e0Bk16L55uO2OjsVY +ODAuqTV8wNT9 eS5nJzMnNqJ7VRgtE348V nCvxSAvWlsxj9eby9uutX g8AlA3CTJbukLrmHpeJSF 5j2JgQq99G49t IHdpZHRoPSIxNSUiIHZhb Sgojn8opT2jOw4+PGNvbC Y1vVN1bW0iGiIyRtJ8OWl gY370NqWvhTUc Tqjak3qta9fsdNx8LtKyO XBolyQfkEevFNE0o8ZrCb 36Z9MtoSnlg0IdEne4ei7 2lFRkc4Q6cBX5 A2KaGVGvkacspDMezQdzV R6uCQFclnwbOHVhpH5sVU ZbC8n8FmQyYxV4JPpdK8B xayK8ANJtkYDx PRAljIIRtU0pkzaof5smn zpuEjJfOWUhVHl7ZTt4KM LtzFeaHbPlWGY2JnB6BYM 8jEGwtL9bnWwn xwcmhK3nVqk+NNX2cZYro EDEZT1rGckgdYQ+PHRkIH M4wSkvATklFPOqrQ3wUFH bN6y5YqLwOkO8 KYskG8ZurtZ5XBBheINgC FCzcQMAqN6sstxno5qddi esWnXqSQWxMMc7IIc3PEK saWduOiBsZWZ0 IpT0KON6aSOzqJ7uyTzes zlocM1ySsx+QmlydGggRG R8FGq1Q0SnUxz2PTWznSz jGH0qtFTqXZgi Ep5ngWymuOipCU5bVBUqx azkn206JvOdm8uoPWDuqK DpORwyKZK9N30sm4Y2QAF yGRXoYYL1vJP5 cN5pfSstdemstOIdkMygv lGsjVecXMpqBKjdZ129BZ JcuYdvDnOnVNz8T3JzYys 7YWAtmBmcPG2p yDKaWUznEj2fdTvbnBfiR O9mGJVpslcib029SnIwf6 evWXIcxYNqVYznUQC6S36 ns8R1OXYmYNVq UGD9vVG6zX4zaOzpnvtcy GVmdDsgdmVydGljYWwtYW lfC962DDOtcMcfLqXbdTn 7Z9VjNmx0ZLNi yCxsTK3egMRfPDymDw1nw NsblOqzCT5tAZYjagbsj3 93KiWcf4tiPBRwwVFhJKg fLVO5W19ix6G2 CQUpHKUaKRU7vUZ3oN7po GlnbjogbGVmdDsgdmVydG ppDGitHGbtJ794VIEywLz nPlBhdGllbnQg ONbvQXx4P3WkRblasHV+P M63SJEtUZ63nOVrsRGzg1 fjaRs9TnTzXUHdEVO7bAa eFImoy6QrJYTl M81yqTPhy1D8RAZbrSspx ZDlDnWkxTS8iL2uCDtghv yia4ehxmakYbuln1vhln8 4mK79D08eSWah ZHRoPSIzMCUiIHZhbGlnb b0ayA2bHx2+NPRuwNX2bW U6tD2aNGNkTfG0DDvuJ61 9InRvcCIvPjxj q4vag6ksxEd8OvY8NWCcy vArdOfmWCR6k6LaDe45V7 9sIHdpZHRoPSIyMCUiIHZ kvJchyh8ncA3w Ii8+YKJllQQ0mLI4jH6uQ lJsAfV7FFxxE996TnUygO OqKlgwT97lC1BuoLQ+PHR yDia7RFPttXyf YF5plMMyNKcvGa6mCQU2I uYqRpLcUCulR2HbKRHnps muwmffmQU4TQWmVOImcL0 7Fa4meOthDHFq kARUoB4xppxht2wvngihW wAjXSMoQRu2DYp7QDSkjY vhXnReDEO2JjI7ESB3sRF glJ8mjXnxepeq hV2xJ0ZvXBUroecqEc53y Y1dTkBjXaL4ULegGzp+TE CLHUgyW2LAEMwRSJ6yOMi vdGQ+PHRkIHN0 rPlyQAarSFVxmW6vYMOaY 8s9AzYwWgH1JXhqW1ZaWW VdpvucDf21sH1kYpHeXuJ 2VFehZ2RkhqA6 JBVdrVAnUOstRZC3L42sr 4U0AJUdGPUsFYL4pPL0hS 1hbGlnbjogbGVmdDsgdmV ydGljYWwtYWxp G140HRUoeFdzFtDwMjDxA xD7VSF3U9LjUag5RINznB spDY0jtSXlFJxgQh6zpBn tsNsqJC0zAILr hydcTMNcaD0kRDRysEYcn WwzZN9pYTMbtgunw173Wj HzPKS7PSQbqFOjG5FpcW8 yOiAjMDAwMDAw U0ZivOIaMUtwP383LUzvH dO7YSHsmxTzK2EwRVJtvH plSlP9f7H7Bo46HsJSKLY yczwvdGQ+PHRk EFM4uDnvLXlbNBTczG4aL IChF8k7MoGrZaM8GLlbH6 RyORVlhvwaYk35vY1uBmC zZyF4LKdvZ9Cs xnC3OMPalZEvRAseFKN1P 71uk3J2GJIrFQHqJMX7mG B9vL5hlQwwpmpegEYvfVb gdmVydGljYWwt ROmgE978SMEqkUrjLlYjo WFsZTwvdGQ+AIYrZSL7iS mlLNpdMCIwmE5aJARnO5z 8CjUtEaW1HXtw U0OtUAVsizvwMv05iF5zQ bLyZvV6QUzhF6EzkoU2GZ IzcJOcMYkeYEH3X71wf5I 7EBVhKRHuGBX0 fOU8mN7ecKiaowxjjBWmc DsgdmVydGljYWwtYWxpZ2 45ANDygActLiijDeNGcz7 rYT6wIntfwHF+ MD94hg15C4TdRprwDwb7S WNyVNA8mOY4yZ9cPJHgPI kua5R5sZM6E1DbcgMioz5 qh7jaIADeBQlo Z53nvEXmy0V9BHJooIS9U EVtaAqqQdWdtG77Gyv+PG VxjEllf6NsLagsb8zre9w khTx4KjLxLQAy qpFveJfgYNW7r5OwMd85L 29sIHdpZHRoPSIzMCUiIH QhdHfuau5sbU6lFy2+PGN hrCH8dKK1dC2u LlMkEpG0GPriZ359NlMal HDyGuyjl0mkc6ngfMo9Eu NiZQIbhgJkxAmnCXA2l3C uRc13R5JxlVqz e6XwVkp8vo49aAYuq2V5k WV1D5MkUOLngzcmiHIcqX dlGU1rKINmwmqeSIMpnJ8 aYJXpR8g0PrZn VsQ2FPdqU2OosqY6PXSeu CKgSASroFILkT4ntpkyp0 pfhlsyYlXgYZVkZHj9ESc 0LWFsaWduOiBs GYS4QcW6JKL3qEQssW1gh LgtqpwnxV0sGqh+UGh5c2 hmeWGnGK1jhHO7ZG70XS8 7gDEnz1P7eUT0 B3WpGPAlfgrtrrnhnKB8V OGyGRKhvW74Qk7xgXuiBx 7pJGOqBUO6MWFgwIJwT0U thQ9yFaOrCBEv SBCdB6BftWAnPSblK584W JcyQnD9REKssxEyW8BhRW QhgDpoXdQ7z5I4Et2DUP0 3QE46AU49oDQc s6J2zFB0I9HsTPErrlazf boyoTZ5WFHrMXEnyX33Vy 5lqObmJf7oXYQcHQJ4YTJ kkOQgU5MmsY3o KdTzZYEfVLAnL4NznNWuK VtbH262YKcbOzK1PHFitm ZyZ0VvOILfzRscZgI3y4C 6Wl3BXo80FD32 UK12yHRqy6O2xFZ3I5GtZ WLxatmzpsxwbFH7CPJrXZ SjxA16Pb5uzEijVd9bVUC iQAW7QXEzdCWl R2PutF2tMtEkCWWxREVcB 4WbfEDkAWnfR782OVjdHe V0OFAabuMtV0KgYWOmeQd rIhD5f6N8Jk6H QLhhdhl8P2AkJjkmpDL+P Z26SVUvJA86aWHuyWBwl0 ssaQh9VoYvULFxKLE6iEd lSWtgg9RhPMMm O84imJRzk6Q0N (more content not included)... Normal [facility] Patient Educationon 03-05-20 Patient Education Obstetrics [...] health care provider. General instructions ? Take qvwu-nib-uaapnwg and prescription medicines only as told by [...] yo (more content not included)... Normal [facility] C Urineon 03-02-2024 Bacteria identified Cx [...] Locations R1: This test was performed at: [facility], [address] [place] [address], [id number]- , [place], [facility] Comment on above: Performed By: #### [id number] #### [facility] [address] [place] [address] Physician Referralon 024 Physician Referral [id number]#1. 00TIFF [facility] Screenson 03-01-2024 Screens [id number]# 1.00TIFF [facility] Ambulatory Visit Summaryon 0 02-29-2024 [...] choosing us for your care. Normal [facility] GLYCOHEMOGLOBIN A1Con 2021 ADA RECOMMENDATION SEE BELOW Normal [facility] Comment on above: Result Comment: ADA RECOMMENDED LIMIT 4.0 - 6.0 ADA THERAPEUTIC TARGET < 7.0 ACTION SUGGESTED > 7.0 Performed By: #### A 1C #### [facility] [address] [place] [address] Dr. Julisa Lowe Glucose [Mass/Vol] 235 mg/dL Normal [facility] Comment on above: Performed By: #### A 1C #### [facility] [address] [address] [address] Julisa Lowe HbA1c (Bld) [Mass fraction] 9.8 % Critically high 4.5-6.2 [facility] Comment on above: Performed By: #### A 1C #### [facility] [address] [address] [address] Julisa Lowe PROF CHEM 8 (BAS METB)on Anion gap [Moles/Vol] 17.7 mmol/L Normal [facility] Comment on above: Performed By: #### B MP #### [facility] [address] [address] [address] Julisa Lowe Calcium [Mass/Vol] 9.3 mg/dL Normal 8.5-10.1 [facility] Comment on above: Performed By: #### B MP #### [facility] [address] [address] [address] Julisa Lowe Chloride [Moles/Vol] 107 mmol/L Normal 98-107 [facility] Comment on above: Performed By: #### B MP #### [facility] [address] [address] [address] Julisa Lowe CO2 [Moles/Vol] 24.3 mmol/L Normal 21.0-32.0 [facility] [facility] Comment on above: Performed By: #### B MP #### [facility] [address] [address] [address] Julisa Lowe Creatinine [Mass/Vol] 0.90 mg/dL Normal 0.55-1.02 [facility] Comment on above: Performed By: #### B MP #### [facility] [address] [place] [address] Dr. Julisa Lowe EGFR-AF LIBERIAN >60 Normal >=60 [facility] Comment on above: Performed By: #### B MP #### [facility] [address] [address] [address] Julisa Lowe EGFR-NON AF LIBERIAN >60 Normal >=60 [facility] Comment on above: Performed By: #### B MP #### [facility] [address] [address] [address] Julisa Lowe Glucose [Mass/Vol] 196 mg/dL Critically high 74-106 [facility] Comment on above: Performed By: #### B MP #### [facility] [address] [address] [address] Julisa Lowe Potassium [Moles/Vol] 5.0 mmol/L Normal 3.5-5.1 [facility] Comment on above: Performed By: #### B MP #### [facility] [address] [address] [address] Julisa Lowe Sodium [Moles/Vol] 144 mmol/L Normal 136-145 [facility] Comment on above: Performed By: #### B MP #### [facility] [address] [address] [address] Julisa Lowe Urea nitrogen [Mass/Vol] 33.0 mg/dL Critically high 7.0-18.0 [facility] Comment on above: Performed By: #### B MP #### [facility] [address] [address] [address] Julisa Lowe Urea nitrogen/Creatinine [Mass ratio] 36.7 mg/mg Normal [facility] Comment on above: Performed By: #### B MP #### [facility] [address] [address] [address] Julisa Lowe Basophils Auto (Bld) [#/Vol] Ordered By: Hood Patel on 05-12-2022 Basophils (Bld) [#/Vol] 0.1 10*3/uL 0.0-0.[address] [facility] Basophils/100 WBC Auto (Bld) Ordered By: Hood Patel on 05-12-2022 Basophils/100 WBC (Bld) 0.7 % . [facility] Blood hemoglobin measurement (mass/volume)Ordered By: Hood Patel on 05-12-2022 Hemoglobin (Bld) [Mass/Vol] 11.8 g/dL 11.8-15.[address] [facility] Blood leukocytes automated c ount (number/volume)Ordered By: Hood Patel on 05-12-2022 WBC (Bld) [#/Vol] 7.6 10*3/uL 4.5-11.0 [facility] CT biopsyOrdered By: Merna Patel on 05-12-2022 Transferrin [Mass/Vol] 206 mg/dL 180-380 [facility] Complete Blood Count Auto Di ffon 05-12-2022 Basophils (Bld) [#/Vol] 0.1 10*3/uL Normal 0.0-0.[address] [facility] Comment on above: Result Comment: PERF ORMED BY: [facility] [address] [place] [address] PATHOLOGIST TYPEWRITER OPERATOR AUTOMATIC JENY DODGE M.D. Performed By: #### F E and TIBC, KATHY, [id number], CBC #### [facility] [address] [place] [address] Basophils/100 WBC (Bld) 0.7 % Normal . [facility] Comment on above: Performed By: #### F E and TIBC, KATHY, [id number], CBC #### [address] Eosinophils (Bld) [#/Vol] 0.1 10*3/uL Normal 0.0-0.[address] [facility] Comment on above: Performed By: #### F E and TIBC, KATHY, [id number], CBC #### [address] Eosinophils/100 WBC (Bld) 1.6 % Normal . [facility] Comment on above: Performed By: #### F E and TIBC, KATHY, [id number], CBC #### [address] Erythrocyte distribution width (RBC) [Ratio] 27.8 % High 11.9-15.[address] [facility] Comment on above: Performed By: #### F E and TIBC, KATHY, [id number], CBC #### [address] Hematocrit (Bld) [Volume fraction] 37.5 % Normal 34.0-46.[address] [facility] Comment on above: Performed By: #### F E and TIBC, KATHY, [id number], CBC #### [address] Hemoglobin (Bld) [Mass/Vol] 11.8 g/dL Normal 11.8-15.[address] [facility] Comment on above: Performed By: #### F E and TIBC, KATHY, [id number], CBC #### [address] Lymphocytes (Bld) [#/Vol] 2.4 10*3/uL Normal 1.00-4.[address] [facility] Comment on above: Performed By: #### F E and TIBC, KATHY, [id number], CBC #### [address] Lymphocytes/100 WBC (Bld) 32.0 % Normal . [facility] Comment on above: Performed By: #### F E and TIBC, KATHY, [id number], CBC #### [address] MCH (RBC) [Entitic mass] 24.2 pg Low 24.7-34.[address] [facility] Comment on above: Performed By: #### F E and TIBC, KATHY, [id number], CBC #### [address] MCV (RBC) [Entitic vol] 76.9 fL Low 80-[address] [facility] Comment on above: Performed By: #### F E and TIBC, KATHY, [id number], CBC #### [address] Mean Corpuscular HGB Conc 31.4 g/dL Low 32.0-35.[address] [facility] Comment on above: Performed By: #### F E and TIBC, KATHY, [id number], CBC #### [address] Monocytes (Bld) [#/Vol] 0.4 10*3/uL Normal 0.0-0.[address] [facility] Comment on above: Performed By: #### F E and TIBC, KATHY, [id number], CBC #### [address] Monocytes/100 WBC (Bld) 5.8 % Normal . [facility] Comment on above: Performed By: #### F E and TIBC, KATHY, [id number], CBC #### [address] Neutrophils (Bld) [#/Vol] 4.6 10*3/uL Normal 1.8-7.[address] [facility] Comment on above: Performed By: #### F E and TIBC, KATHY, [id number], CBC #### [facility] [address] Neutrophils/100 WBC (Bld) 59.9 % Normal . [facility] Comment on above: Performed By: #### F E and TIBC, KATHY, [id number], CBC #### [facility] [address] Nucleated RBC/100 WBC (Bld) [Ratio] 0.2 % Normal 0-0.[address] [facility] Comment on above: Performed By: #### F E and TIBC, KATHY, [id number], CBC #### [facility] [address] Platelet mean volume (Bld) [Entitic vol] 6.5 fL Normal 6.3-10.[address] [facility] Comment on above: Performed By: #### F E and TIBC, KATHY, [id number], CBC #### [address] Platelets (Bld) [#/Vol] 231 10*3/uL Normal 150-[address] [facility] Comment on above: Performed By: #### F E and TIBC, KATHY, [id number], CBC #### [address] RBC (Bld) [#/Vol] 4.88 10*6/uL Normal 3.60-5.00 [facility] Comment on above: Performed By: #### F E and TIBC, KATHY, [id number], CBC #### [address] WBC (Bld) [#/Vol] 7.6 10*3/uL Normal 4.5-11.0 [facility] Comment on above: Performed By: #### F E and TIBC, KATHY, [id number], CBC #### [address] Eosinophils Auto (Bld) [#/Vo l]Ordered By: Hood Patel on 05-12-2022 Eosinophils (Bld) [#/Vol] 0.1 10*3/uL 0.0-0.[address] [facility] Eosinophils/100 WBC Auto (Bl d)Ordered By: Hood Patel on 05-12-2022 Eosinophils/100 WBC (Bld) 1.6 % . [facility] Erythrocyte distribution wid th Auto (RBC) [Ratio]Ordered By: Hood Patel on 05-12-2022 Erythrocyte distribution width (RBC) [Ratio] 27.8 % 11.9-15.[address] [facility] Ferritinon 05-12-2022 Ferritin [Mass/Vol] 218.6 ng/mL Normal 11-306.8 [facility] Comment on above: Performed By: #### F E and TIBC, KATHY, [id number], CBC #### [facility] [address] Ferritin [Mass/volume] in Se rum or PlasmaOrdered By: Hood Patel on 05-12-2022 Ferritin [Mass/Vol] 218.6 ng/mL 11-306.8 [facility] Folate [Mass/volume] in Seru m or PlasmaOrdered By: Hood Patel on 05-12-2022 Folate [Mass/Vol] 7.9 ng/mL >5.9 [facility] Comment on above: Folate reference ran ge: >5.9 ng/ml The WHO technical consultation on folate and vitamin b12 deficiencies has determined that folate concentrations less than 4 ng/ml are considered deficient. Glucose Glucometer (BldC) [M ass/Vol]Ordered By: Hood Patel on 05-12-2022 Glucose [Mass/Vol] 426 mg/dL [facility] Comment on above: Random Glucose Refer ence Range is dependent on time and content of last meal. Glucose of more than 200 mg/dL in a nonstressed, ambulatory subject supports the diagnosis of Diabetes Mellitus. Glucose Poct Glucometerson 0 05-12-2022 Commemt[address] [facility] Comment on above: Result Comment: Glu2 : Result Not Confirmed PERFORMED BY: [facility] [address] [place] [address] PATHOLOGIST TYPEWRITER OPERATOR AUTOMATIC JENY DODGE M.D. Performed By: #### G VANESSA #### Point of Care testing , Glucose [Mass/Vol] 426 mg/dL Off scale high [facility] Comment on above: Result Comment: [facility] Glucose Reference Range is dependent on time and content of last meal. Glucose of more than 200 mg/dL in a nonstressed, ambulatory subject supports the diagnosis of Diabetes Mellitus. Performed By: #### G VANESSA #### Point of Care testing , Hematocrit Auto (Bld) [Volum e fraction]Ordered By: Hood Patel on 05-12-2022 Hematocrit (Bld) [Volume fraction] 37.5 % 34.0-46.[address] [facility] Iron [Mass/volume] in Serum or PlasmaOrdered By: Hood Patel on 05-12-2022 Iron [Mass/Vol] 48 ug/dL 40-[address] [facility] Iron and TIBC Profileon 04-15 % Iron Saturation 16.0 % Low 20-50 [facility] Comment on above: Performed By: #### F E and TIBC, KATHY, [id number], CBC #### [facility] [address] Iron [Mass/Vol] 48 ug/dL Normal 40-[address] [facility] Comment on above: Performed By: #### F E and TIBC, KATHY, [id number], CBC #### [facility] [address] [id number] [facility] Total Iron Binding Capacity 288 ug/dL Normal 255-[address] [facility] Comment on above: Performed By: #### F E and TIBC, KATHY, [id number], CBC #### [facility] [address] [place] [address] [place] Transferrin [Mass/Vol] 206 mg/dL Normal 180-380 [facility] Comment on above: Performed By: #### F E and TIBC, KATHY, [id number], CBC #### [facility] [address] [id number] [place] Iron binding capacity [Mass/ volume] in Serum or PlasmaOrdered By: Hood Patel on 05-12-2022 Iron binding capacity [Mass/Vol] 288 ug/dL 255-[address] [facility] Iron saturation [Mass Fracti on] in Serum or PlasmaOrdered By: Hood Patel on 05-12-2022 Iron saturation [Mass fraction] 16.0 % 20-[address] [facility] Los 05-12-2022 L - -------- Specimen: [id number] Received: 05/12/22 Status: CORRY [place] Num: [id number] Spec Type: Surgical Subm Dr: Hood Patel MD Tissues: A Duodenum - Biopsy (DUODENAL BX) Procedures: HE Stain/2, Gross/Micro L4 -------- Age/ Patient Sex Location Account Attending Physician -------- Robina Ron 71/F [id number] Hood Patel MD -------- SPEC NUM: [id number] RECD: 05/12/22 STATUS: CORRY CHOPRA NUM: [id number] PROSPER: 05/12/22 [facility] DR: Hood Patel MD ENTERED: 05/12/22 [facility] DR: SPEC TYPE: Surgical DEPT: S ORDERED: [...] microscopic findings support the above pathologic diagnosis. [id number] -------- -------- Specimen: [id number] Received: 05/12/22 Status: CORRY [place] Num: [id number] Spec Type: Surgical Subm Dr: Hood Patel MD Tissues: A Duodenum - Biopsy (DUODENAL BX) Procedures: HE Stain/2, Gross/Micro L4 -------- Patient: Robina Ron [id number] (Continued) -------- Signed (signature on file) Jeny Dodge MD 05/13/[address] [facility] - Chemistry and C hemistry - challengeOrdered By: Hood Patel on 05-12-2022 Cobalamin (Vitamin B12) [Mass/Vol] 277 pg/mL 180-[address] [facility] - Hematology and Cell countsOrdered By: Hood Patel on 05-12-2022 Nucleated RBC/100 WBC (Bld) [Ratio] 0.2 % 0-0.[address] [facility] Lymphocytes Auto (Bld) [#/Vo l]Ordered By: Hood Patel on 05-12-2022 Lymphocytes (Bld) [#/Vol] 2.4 10*3/uL 1.00-4.[address] [facility] Lymphocytes/100 WBC Auto (Bl d)Ordered By: Hood Patel on 05-12-2022 Lymphocytes/100 WBC (Bld) 32.0 % . [facility] MCH Auto (RBC) [Entitic mass ]Ordered By: Hood Patel on 05-12-2022 MCH (RBC) [Entitic mass] 24.2 pg 24.7-34.[address] [facility] MCHC Auto (RBC) [Mass/Vol]Or dered By: Hood Patel on 05-12-2022 MCHC (RBC) [Mass/Vol] 31.4 g/dL 32.0-35.0 [facility] MCV Auto (RBC) [Entitic vol] Ordered By: Hood Patel on 05-12-2022 MCV (RBC) [Entitic vol] 76.9 fL 80-[address] [facility] Monocytes Auto (Bld) [#/Vol] Ordered By: Hood Patel on 05-12-2022 Monocytes (Bld) [#/Vol] 0.4 10*3/uL 0.0-0.[address] [facility] Monocytes/100 WBC Auto (Bld) Ordered By: Hood Patel on 05-12-2022 Monocytes/100 WBC (Bld) 5.8 % . [facility] Neutrophils Auto (Bld) [#/Vo l]Ordered By: Hood Patel on 05-12-2022 Neutrophils (Bld) [#/Vol] 4.6 10*3/uL 1.8-7.[address] [facility] Neutrophils/100 WBC Auto (Bl d)Ordered By: Hood Patel on 05-12-2022 Neutrophils/100 WBC (Bld) 59.9 % . [facility] No Panel InformationOrdered By: Hood Patel on 05-12-2022 Bedside Glucose Comment See comment [facility] Comment on above: Glu2: Result Not Con firmed Platelet mean volume Auto (B ld) [Entitic vol]Ordered By: Hood Patel on 05-12-2022 Platelet mean volume (Bld) [Entitic vol] 6.5 fL 6.3-10.[address] [facility] Platelets Auto (Bld) [#/Vol] Ordered By: Hood Patel on 05-12-2022 Platelets (Bld) [#/Vol] 231 10*3/uL 150-[address] [facility] RBC Auto (Bld) [#/Vol]Ordere d By: Hood Patel on 05-12-2022 RBC (Bld) [#/Vol] 4.88 10*6/uL 3.60-5.00 [facility] Vit. B12/Folate Profileon Cobalamin (Vitamin B12) [Mass/Vol] 277 pg/mL Normal 180-[address] [facility] Comment on above: Performed By: #### F E and TIBC, KATHY, [id number], CBC #### [facility] [address] Folate 7.9 ng/mL Normal >5.[address] [facility] Comment on above: Result Comment: Katelyn te reference range: >5.9 ng/ml The WHO technical consultation on folate and vitamin b12 deficiencies has determined that folate concentrations less than 4 ng/ml are considered deficient. PERFORMED BY: [place] [address] PATHOLOGIST TYPEWRITER OPERATOR AUTOMATIC JENY DODGE M.D. Performed By: #### F E and TIBC, KATHY, [id number], CBC #### [facility] [address] COVID-19 FRon 05-07-2022 SARS-CoV-2 (COVID-19) RNA CHALINO+probe Ql (Unsp spec) Negative Normal Negative [facility] Comment on above: Order Comment: Healt hcare Worker?: N Result Comment: Testing for SARS-CoV-2 by RT-PCR This test was developed and its performance characteristics determined by [employer]) and validated at the [facility]. This test has not been [...] is terminated or revoked sooner. PERFORMED BY: [address] [place] [address] PATHOLOGIST TYPEWRITER OPERATOR AUTOMATIC JENY DODGE M.D. Performed By: #### C OVID 19 [facility] #### [facility] [address] [id number] [facility] COVID-19 Positive/NegativeOr dered By: Hood Patel on 05-07-2022 SARS-CoV-2 (COVID-19) N gene CHALINO+probe Ql (Resp) Negative Negative [facility] Comment on above: Testing for SARS-CoV -2 by RT-PCR This test was developed and its performance characteristics determined by [employer]) and validated at the [facility]. This test has not been [...] Basophils (Bld) [#/Vol] 0.03 10*3/uL Normal <0.11 [facility] Comment on above: Order Comment: Speci men Type: BLOOD SPECIMEN Ordering Facility: [facility] Address: [address] [place] [address] Performed By: #### 5 7021-8, 97448-2 #### [facility] CLIA [id number] [address] [place] [address] Basophils/100 WBC (Bld) 0.3 % Normal [facility] Comment on above: Order Comment: Speci men Type: BLOOD SPECIMEN Ordering Facility: [facility] Address: [address] Performed By: #### 5 7021-8, 56400-7 #### [facility] CLIA [id number] [address] [place] [address] Differential cell count method Nom (Bld) Auto Normal [facility] Comment on above: Order Comment: Speci men Type: BLOOD SPECIMEN Ordering Facility: [facility] Address: [address] Performed By: #### 5 7021-8, 66913-3 #### [facility] CLIA [id number] [address] [place] [address] Eosinophils (Bld) [#/Vol] 0.09 10*3/uL Normal <0.46 [facility] Comment on above: Order Comment: Speci men Type: BLOOD SPECIMEN Ordering Facility: [facility] Address: [address] [address] Performed By: #### 5 7021-8, 74924-4 #### [facility] CLIA [id number] [address] [place] [address] Eosinophils/100 WBC (Bld) 1.0 % Normal [facility] Comment on above: Order Comment: Speci men Type: BLOOD SPECIMEN Ordering Facility: [facility] Address: [address] [address] Performed By: #### 5 7021-8, 05236-7 #### [facility] CLIA [id number] [address] [place] [address] Erythrocyte distribution width (RBC) [Ratio] 20.4 % High 11.5-15.0 [facility] Comment on above: Order Comment: Speci men Type: BLOOD SPECIMEN Ordering Facility: [facility] Address: [address] Performed By: #### 5 7021-8, 73289-5 #### [facility] CLIA [id number] [address] [place] [address] Hematocrit (Bld) [Volume fraction] 33.1 % Low 36.0-46.0 [facility] Comment on above: Order Comment: Speci men Type: BLOOD SPECIMEN Ordering Facility: [facility] Address: [address] [place] [address] Performed By: #### 5 7021-8, 40339-4 #### [facility] CLIA [id number] [address] [place] [address] Hemoglobin (Bld) [Mass/Vol] 9.3 g/dL Low 11.5-15.5 [facility] Comment on above: Order Comment: Speci men Type: BLOOD SPECIMEN Ordering Facility: [facility] Address: [address] [place] [address] Performed By: #### 5 7021-8, 51110-3 #### [facility] CLIA [id number] [address] [place] [address] IMMATURE GRAN % 0.9 % Normal [facility] Comment on above: Order Comment: Speci men Type: BLOOD SPECIMEN Ordering Facility: [facility] Address: [address] [place] [address] Performed By: #### 5 7021-8, 16491-8 #### [facility] CLIA [id number] [address] [place] [address] 41672 IMMATURE GRAN ABS 0.08 k/uL Normal <0.10 [facility] Comment on above: Order Comment: Speci men Type: BLOOD SPECIMEN Ordering Facility: [facility] Address: [address] [place] [address] Performed By: #### 5 7021-8, 83591-6 #### [facility] CLIA [id number] [address] [place] [address] Lymphocytes (Bld) [#/Vol] 2.43 10*3/uL Normal 1.00-4.00 [facility] Comment on above: Order Comment: Speci men Type: BLOOD SPECIMEN Ordering Facility: [facility] Address: [address] [place], [place] [address] Performed By: #### 5 7021-8, 65559-4 #### [facility] CLIA [id number] [address] [place] [address]48 Lymphocytes/100 WBC (Bld) 26.6 % Normal [facility] Comment on above: Order Comment: Speci men Type: BLOOD SPECIMEN Ordering Facility: [facility] Address: [address] [place], [place] [address] Performed By: #### 5 7021-8, 00217-1 #### [facility] CLIA [id number] [address] [place] [address] MCH (RBC) [Entitic mass] 20.2 pg Low 26.0-34.0 [facility] Comment on above: Order Comment: Speci men Type: BLOOD SPECIMEN Ordering Facility: [facility] Address: [address] [place] [address] Performed By: #### 5 7021-8, 26203-8 #### [facility] CLIA [id number] [address] [place] [address] MCHC (RBC) [Mass/Vol] 28.1 g/dL Low 30.5-36.0 [facility] Comment on above: Order Comment: Speci men Type: BLOOD SPECIMEN Ordering Facility: [facility] Address: [address] [place], [place] [address] Performed By: #### 5 7021-8, 12539-6 #### [facility] CLIA [id number] [address] [place] [address] MCV (RBC) [Entitic vol] 72.0 fL Low 80.0-100.0 [facility] Comment on above: Order Comment: Speci men Type: BLOOD SPECIMEN Ordering Facility: [facility] Address: [address] [place], [place] [address] Performed By: #### 5 7021-8, 50044-5 #### [facility] CLIA [id number] [address] [place] [address] Monocytes (Bld) [#/Vol] 0.48 10*3/uL Normal <0.87 [facility] Comment on above: Order Comment: Speci men Type: BLOOD SPECIMEN Ordering Facility: [facility] Address: [address] [place] [address] Performed By: #### 5 7021-8, 02838-7 #### [facility] CLIA [id number] [address] [place] [address] 00836 Monocytes/100 WBC (Bld) 5.3 % Normal [facility] Comment on above: Order Comment: Speci men Type: BLOOD SPECIMEN Ordering Facility: [facility] Address: [address] [place] [address] Performed By: #### 5 7021-8, 56861-8 #### [facility] CLIA [id number] [address] [place] [address]7850 Neutrophils (Bld) [#/Vol] 6.02 10*3/uL Normal 1.45-7.50 [facility] Comment on above: Order Comment: Speci men Type: BLOOD SPECIMEN Ordering Facility: [facility] Address: [address] [place] [address] Performed By: #### 5 7021-8, 48807-8 #### [facility] CLIA [id number] [address] [place] [address] 65199 Neutrophils/100 WBC (Bld) 65.9 % Normal [facility] Comment on above: Order Comment: Speci men Type: BLOOD SPECIMEN Ordering Facility: [facility] Address: [address] [place], [place] [address] Performed By: #### 5 7021-8, 43273-7 #### [facility] CLIA [id number] [address] [place] [address] 61529 Nucleated RBC (Bld) [#/Vol] 10*3/uL Normal <0.01 [facility] Comment on above: Order Comment: Speci men Type: BLOOD SPECIMEN Ordering Facility: [facility] Address: [address] [place], [place] [address] Performed By: #### 5 7021-8, 34915-8 #### [facility] CLIA [id number] [address] [place] [address] 12687 Nucleated RBC/100 WBC (Bld) [Ratio] 0.0 /[address] [facility] Comment on above: Order Comment: Speci men Type: BLOOD SPECIMEN Ordering Facility: [facility] Address: [address] [place], [place] [address] Performed By: #### 5 7021-8, 59703-3 #### [facility] CLIA [id number] [address] [place] [address] 27636 Platelet mean volume (Bld) [Entitic vol] 7.7 fL Low 9.0-12.7 [facility] Comment on above: Order Comment: Speci men Type: BLOOD SPECIMEN Ordering Facility: [facility] Address: [address] [place], [place] [address] Performed By: #### 5 7021-8, 62453-2 #### [facility] CLIA [id number] [address] [place] [address] 12498 Platelets (Bld) [#/Vol] 318 10*3/uL Normal 150-400 [facility] Comment on above: Order Comment: Speci men Type: BLOOD SPECIMEN Ordering Facility: [facility] Address: [address] [place], [place] [address] Performed By: #### 5 7021-8, 81063-6 #### [facility] CLIA [id number] [address] [place] [address] 04095 RBC (Bld) [#/Vol] 4.60 10*6/uL Normal 3.90-5.20 [facility] Comment on above: Order Comment: Speci men Type: BLOOD SPECIMEN [facility] [facility] Address: [address] [place], [place] [address] Performed By: #### 5 7021-8, 53533-3 #### [facility] CLIA [id number] [address] [place] [address] WBC (Bld) [#/Vol] 9.13 10*3/uL Normal 3.70-11.00 [facility] Comment on above: Order Comment: Speci men Type: BLOOD SPECIMEN Ordering Facility: [facility] Address: [facility] [place] [address] Performed By: #### 5 7021-8, 01147-7 #### [facility] CLIA [id number] [address] [place] [address] CNOVSPon 04-14-2022 CNOVSP Visit (SP) Office ([place]) ROBINA RON ([id number]) 1950 F Date Time Provider Department 04/14/22 1:15 PM CHRISTI FINK During your visit today, we recorded the following information about you: Temperature Pulse Respiration Blood pressure 97.9 degrees 80/minute 16/minute 149/60 Weight Height 53.6 kg 1.524 m Christi Fink MD 04/14/2022 1:13 PM Signed PATIENT NAME: Robina Ron CLINIC NO.: [id number] ATTENDING PHYSICIAN: Christi Fink MD DATE OF [...] disease) (HCC) - CVA (cerebral vascular accident) ([facility]) - Diabetes mellitus (HCC) - Dyspnea - Factor V Leiden (HCC) - GERD (gastroesophageal reflux disease) - History of colon polyps - Hyperlipidemia - Hypertension - Hypokalemia - Leukocytosis - JARRET (obstructive sleep apnea) - PAD (peripheral artery disease) ([facility]) - Pericardial effusion Social History Tobacco [...] Date Valu (more content not included)... Normal [facility] CNPNon 04-14-2022 CNPN Telephone ([place]) ARIADNEROBINA ([id number]) 1950 F Date Time Provider Department 04/14/22 CHRISTY BYRD During your visit today, we recorded the following information about you: Christy Byrd RN 04/14/2022 1:25 PM Signed Key Monteiro from [facility] Client Services calls to [...] is now seen by Dr Rainey at [facility]. Call placed to their office ([phone]) and message left requesting a call back. PSS: can you please update pt's PCP info. Thanks, JOS Bustamante Pss 04/14/2022 2:03 PM Signed PCP updated in chart Makenna Kendall RN 04/17/2022 10:39 AM Signed Call placed to [facility]. Office is closed. JOS Bustamante RN 04/21/2022 12:55 PM Signed Message left with Dr Rainey's medical imaging technologist again today regarding this pt and the urgency of this being addressed. Will try again later today if I don't hear back from their office. JOS Bustamante RN 04/21/2022 1:35 PM Signed Spoke with Pankaj at Dr Rainey's office. Recent records and labs faxed to [phone] per office request. JOS Bustamante RN 04/21/2022 [...] Status:Closed by MAKENNA KENDALL on 04/21/[address] [facility] Comprehensive metabolic 2000 panelon 04-14-2022 Albumin [Mass/Vol] 3.5 g/dL Low 3.9-4.9 [facility] Comment on above: Order Comment: Speci men Type: BLOOD SPECIMEN Ordering Facility: [facility] Address: [address] [address] Performed By: #### 2 4323-8 #### [facility] CLIA [id number] [address] [place] [address] ALP [Catalytic activity/Vol] 120 U/L Normal 34-123 [facility] Comment on above: Order Comment: Speci men Type: BLOOD SPECIMEN Ordering Facility: [facility] Address: [address] [address] Performed By: #### 2 4323-8 #### [facility] CLIA [id number] [address] [place] [address] ALT [Catalytic activity/Vol] 15 U/L Normal 7-38 [facility] Comment on above: Order Comment: Speci men Type: BLOOD SPECIMEN Ordering Facility: [facility] Address: [address] [address] Performed By: #### 2 4323-8 #### [facility] CLIA [id number] [address] [place] [address] Anion gap [Moles/Vol] 13 mmol/L Normal 9-18 [facility] Comment on above: Order Comment: Speci men Type: BLOOD SPECIMEN Ordering Facility: [facility] Address: [address] Performed By: #### 2 4323-8 #### [facility] CLIA [id number] [address] [place] [address] AST [Catalytic activity/Vol] 21 U/L Normal 13-35 [facility] Comment on above: Order Comment: Speci men Type: BLOOD SPECIMEN Ordering Facility: [facility] Address: [address] [place] [address] Performed By: #### 2 4323-8 #### [facility] CLIA [id number] [address] [place] [address] Bilirubin [Mass/Vol] 0.2 mg/dL Normal 0.2-1.3 [facility] Comment on above: Order Comment: Speci men Type: BLOOD SPECIMEN Ordering Facility: [facility] Address: [address] [place], [place] [address] Performed By: #### 2 4323-8 #### [facility] CLIA [id number] [address] [place] [address] Calcium [Mass/Vol] 9.1 mg/dL Normal 8.5-10.2 [facility] Comment on above: Order Comment: Speci men Type: BLOOD SPECIMEN Ordering Facility: [facility] Address: [address] [place], [place] [address] Performed By: #### 2 4323-8 #### [facility] CLIA [id number] [address] [place] [address] Chloride [Moles/Vol] 103 mmol/L Normal 97-105 [facility] Comment on above: Order Comment: Speci men Type: BLOOD SPECIMEN Ordering Facility: [facility] Address: [address] [place], [place] [address] Performed By: #### 2 4323-8 #### [facility] CLIA [id number] [address] [place] [address] CO2 [Moles/Vol] 22 mmol/L Normal 22-30 [facility] Comment on above: Order Comment: Speci men Type: BLOOD SPECIMEN Ordering Facility: [facility] Address: [address] [place] [address] Performed By: #### 2 4323-8 #### [facility] CLIA [id number] [address] [place] [address] Creatinine [Mass/Vol] 0.53 mg/dL Low 0.58-0.96 [facility] Comment on above: Order Comment: Speci men Type: BLOOD SPECIMEN Ordering Facility: [facility] Address: [address] [place] [address] Performed By: #### 2 4323-8 #### [facility] CLIA [id number] [address] [place] [address] ESTIMATED GLOMERULAR FILTRATION RATE 99 mL/min/1.73m??? Normal >=60 [facility] Comment on above: Order Comment: Speci men Type: BLOOD SPECIMEN Ordering Facility: [facility] Address: [address] [place] [address] Result Comment: Kaylynn mated Glomerular Filtration Rate [...] GFR. Performed By: #### 2 4323-8 #### [facility] CLIA [id number] [address] [place] [address] Glucose [Mass/Vol] 508 mg/dL High 74-99 [facility] Comment on above: Order Comment: Speci men Type: BLOOD SPECIMEN Ordering Facility: [facility] Address: [address] [place] [address] Result Comment: The [place] [employer] (ADA) provides guidance for cutoff [...] Standards of Medical Care in Diabetes 2016, [place] [employer]. Diabetes Care. 2016.39(Suppl 1). Performed By: #### 2 4323-8 #### [facility] CLIA [id number] [address] [place] [address] Potassium [Moles/Vol] 3.6 mmol/L Low 3.7-5.1 [facility] Comment on above: Order Comment: Speci men Type: BLOOD SPECIMEN Ordering Facility: [facility] Address: [address] [place] [address] Performed By: #### 2 4323-8 #### [facility] CLIA [id number] [address] [place] [address] Protein [Mass/Vol] 5.4 g/dL Low 6.3-8.0 [facility] Comment on above: Order Comment: Speci men Type: BLOOD SPECIMEN Ordering Facility: [facility] Address: [address] [address] Performed By: #### 2 4323-8 #### [facility] CLIA [id number] [address] [place] [address] Sodium [Moles/Vol] 138 mmol/L Normal 136-144 [facility] Comment on above: Order Comment: Speci men Type: BLOOD SPECIMEN Ordering Facility: [facility] Address: [address] [address] Performed By: #### 2 4323-8 #### [facility] CLIA [id number] [address] [place] [address] [place] [address] Urea nitrogen [Mass/Vol] 8 mg/dL Normal 7-21 [facility] Comment on above: Order Comment: Speci men Type: BLOOD SPECIMEN Ordering Facility: [facility] Address: [address] [place] [address] Performed By: #### 2 4323-8 #### [facility] CLIA [id number] [address] [place] [address] Ferritin SerPl-mCncon 2021 Ferritin [Mass/Vol] 15.5 ng/mL Normal 14.7-205.1 [facility] Comment on above: Order Comment: Speci men Type: BLOOD SPECIMEN Ordering Facility: [facility] Address: [address] [place] [address] Performed By: #### 2 276-4, 84276-2 #### [facility] CLIA [id number] [address] [place] [address] [place] GLUCOSE, BLOOD (POC)on 04-14 Glucose [Mass/Vol] 373 mg/dL Abnormal 74 - 99 mg/dL [facility] Iron and Iron binding capaci ty panelon 04-14-2022 Iron [Mass/Vol] 17 ug/dL Low 41-186 [facility] Comment on above: Order Comment: Speci men Type: BLOOD SPECIMEN Ordering Facility: [facility] Address: [address] [place], [place] [address] Performed By: #### 2 276-4, 00538-7 #### [facility] CLIA [id number] [address] [place] [address] [place] Iron binding capacity [Mass/Vol] 337 ug/dL Normal 232-386 [facility] Comment on above: Order Comment: Speci men Type: BLOOD SPECIMEN Ordering Facility: [facility] Address: [address] [place], [place] [address] Performed By: #### 2 276-4, 33444-5 #### [facility] CLIA [id number] [address] [place] [address] [place] Iron/TIBC [Molar ratio] 5.0 % Low 15.0-57.0 [facility] Comment on above: Order Comment: Speci men Type: BLOOD SPECIMEN Ordering Facility: [facility] Address: [address] [place] [address] Performed By: #### 2 276-4, 08017-2 #### [facility] CLIA [id number] [address] [place] [address] [place] Retics #on 04-14-2022 Reticulocytes (Bld) [#/Vol] 0.38684 10*3/uL Normal 0.018-0.100 [facility] Comment on above: Order Comment: Speci men Type: BLOOD SPECIMEN Ordering Facility: [facility] Address: [address] [place] [address] Performed By: #### 5 7021-8, 47808-5 #### [facility] CLIA [id number] [address] [place] [address] Reticulocytes (Bld) [#/Vol]o n 04-14-2022 Reticulocytes/100 RBC (Bld) 1.8 % Normal 0.4-2.0 [facility] Comment on above: Order Comment: Speci men Type: BLOOD SPECIMEN Ordering Facility: [facility] Address: [address] [place] [address] Performed By: #### 5 7021-8, 93772-7 #### [facility] CLIA [id number] [address] [place] [address]71 CBC AUTO DIFFon 04-08-2022 BASO # 0.0 103/ul Normal 0.0-0.1 [facility] Comment on above: Performed By: #### A 1C #### [facility] [address] [place] [address] [address] Julisa Lowe Basophils/100 WBC (Bld) 0.4 % Normal 0.2-2.0 [facility] Comment on above: Performed By: #### A 1C #### [facility] [address] [place] [address] Dr. Julisa Lowe EO # 0.2 103/ul Normal 0.0-0.7 [facility] Comment on above: Performed By: #### A 1C #### [facility] [address] [place] [address] Dr. Julisa Lowe Eosinophils/100 WBC (Bld) 1.7 % Normal 0.9-7.0 [facility] Comment on above: Performed By: #### A 1C #### [facility] [address] [place] [address] Dr. Julisa Lowe Erythrocyte distribution width (RBC) [Ratio] 20.8 % Critically high 11.0-15.0 [facility] Comment on above: Performed By: #### A 1C #### [facility] [address] [place] [address] Dr. Julisa Lowe Hematocrit (Bld) [Volume fraction] 34.9 % Critically low 36.0-48.0 [facility] Comment on above: Performed By: #### A 1C #### [facility] [address] [place] [address] Dr. Julisa Lowe Hemoglobin (Bld) [Mass/Vol] 10.0 g/dL Critically low 12.0-16.0 [facility] Comment on above: Performed By: #### A 1C #### [facility] [address] [place] [address] Dr. Julisa Lowe IG # 0.08 10e3/ul Critically high 0.00-0.03 [facility] Comment on above: Performed By: #### A 1C #### [facility] [address] [place] [address] Dr. Julisa Lowe IG % 0.7 % Critically high 0.0-0.5 [facility] Comment on above: Performed By: #### A 1C #### [facility] [address] [place] [address] Dr. Julisa Lowe LYMPH # 3.6 103/ul Normal 1.2-3.8 [facility] Comment on above: Performed By: #### A 1C #### [facility] [address] [place] [address] Dr. Julisa Lowe Lymphocytes/100 WBC (Bld) 33.3 % Normal 20.5-60.0 [facility] Comment on above: Performed By: #### A 1C #### [facility] [address] [place] [address] Dr. Julisa Lowe MANUAL DIFF REQ NO Normal [facility] Comment on above: Performed By: #### A 1C #### [facility] [address] [place] [address] Dr. Julisa Lowe MCH (RBC) [Entitic mass] 20.2 pg Critically low 26.7-34.0 [facility] Comment on above: Performed By: #### A 1C #### [facility] [address] [place] [address] Dr. Julisa Lowe MCHC (RBC) [Mass/Vol] 28.7 g/dL Critically low 29.9-35.2 [facility] Comment on above: Performed By: #### A 1C #### [facility] [address] [place] [address] Dr. Julisa Lowe MCV (RBC) [Entitic vol] 70.6 fL Critically low 81.0-99.0 [facility] Comment on above: Performed By: #### A 1C #### [facility] [address] [place] [address] Dr. Julisa Lowe MONO # 0.6 103/ul Normal 0.3-0.8 [facility] Comment on above: Performed By: #### A 1C #### [facility] [address] [place] [address] Dr. Julisa Lowe Monocytes/100 WBC (Bld) 5.4 % Normal 1.7-12.0 [facility] Comment on above: Performed By: #### A 1C #### [facility] [address] [place] [address] Dr. Julisa Lowe NEUT # 6.4 103/ul Normal 1.4-6.5 [facility] Comment on above: Performed By: #### A 1C #### [facility] [address] [place] [address] Dr. Julisa Lowe Neutrophils/100 WBC (Bld) 58.5 % Normal 43.0-75.0 [facility] Comment on above: Performed By: #### A 1C #### [facility] [address] [place] [address] Dr. Julisa Lowe Platelet mean volume (Bld) [Entitic vol] 8.1 fL Critically low 9.5-13.5 [facility] Comment on above: Performed By: #### A 1C #### [facility] [address] [place] [address] Dr. Julisa Lowe PLT 325 103/ul Normal 150-450 [facility] Comment on above: Performed By: #### A 1C #### [facility] [address] [place] [address] Dr. Julisa Lowe RBC 4.94 106/ul Normal 4.20-5.40 [facility] Comment on above: Performed By: #### A 1C #### [facility] [address] [place] [address] Dr. Julisa Lowe WBC 10.9 103/ul Normal 4.0-11.0 [facility] Comment on above: Performed By: #### A 1C #### [facility] [address] [place] [address] Dr. Julisa Lowe FERRITINon 04-08-2022 Ferritin [Mass/Vol] 15.0 ng/mL Normal 8.0-252.0 [facility] Comment on above: Performed By: #### A 1C #### [facility] [address] [place] [address] Dr. Julisa Lowe CNPBelen 04-06-2022 CNPN Telephone (NCCAP) ROBINA RON ([id number]) 1950 F Date Time Provider Department 04/06/22 CHRISTI FINK During your visit today, we recorded the following information about you: Makenna Grahamkins Sec 04/06/2022 7:49 AM Signed Please send records to [facility] office thanks! MD Dorota Thompsontru Carpio; Makenna Grahamkins Sec Please refer her to GI for an upper endoscopy. ?Thanks Adrienne Weinstein [facility] 04/06/2022 8:12 AM Signed Gladys: Information ready for you. Adrienne [facility] Shayeangélica Gonzalez [facility] 04/06/2022 8:57 AM Signed Records faxed to Dr. Rich. Adrienne Weinstein [facility] 04/09/2022 8:40 AM Signed Called Angélica Romano spoke with [facility]. She states they have received this referral and their referral dept will be calling patient soon to schedule. I will call back sometime next week check on status of this referral. [facility] 04/13/2022 1:18 PM Signed Called Angélica Romano spoke with Keny[facility]. She states they have called left patient message to call them back to schedule. Adrienne [facility] 04/16/2022 9:07 AM Signed Called Angélica Romano spoke with Keny[facility]. She states they have patient scheduled to see Dr Patel on 05/12 for EGD. Adrienne [facility] Allergies As of Date: 04/06/2022 Noted Allergy Reaction PERCOCET (OXYCODONE-ACETAMINOP HEN)03/31/2016 1 - Mental Status Change 10 - Anaphylaxis SPIRIVA WITH HANDIHALER (TIOTROPI*03/31/2016 16 - Unknown SYMBICORT (BUDESONIDE-FORMOTERO L) 03/31/2022 14 - Other: See Comments Comments: Tongue swelling Date Reviewed: 04/04/2022 Reviewed by: Christi Fink MD - Fully Assessed Reason for Visit: Appointment Confirmation [2841] Prescriptions as of 04/16/2022 - insulin NPH [...] Encounter Status:Closed by TJ CARPIO on 04/16/22 [facility] CNOVSPon 04-03-2022 OVS Visit (SP) Office ([place]) ROBINA RON ([id number]) 1950 F Date Time Provider Department 04/03/22 4:30 PM CHRISTI FINK During your visit today, we recorded the following information about you: Temperature Pulse Respiration Blood pressure 97.4 degrees 90/minute 16/minute 107/38 Weight Height 53.6 kg 1.524 m Christi Fink MD 04/04/2022 11:07 AM Signed PATIENT NAME: Robina Ron CLINIC NO.: [id number] ATTENDING PHYSICIAN: Christi Fink MD DATE OF [...] not taking: Reported on 03/31/2022 ) - Rxfua-9-TWZ-EPA-Fish Oil 1,000 mg (120 mg-180 mg) cap [...] [Oxycodone* Mental (more content not included)... Normal [facility] ECHO LIMITED STUDYon 022 ECHO LIMITED STUDY Patient: ROBINA RON Exam Date: 02/06/2022 : 1950 Gender:F Ordering : EDD WADE Admission #: [id number] Family : Order #: [id number] CLICK HERE TO VIEW EXAM ECHOCARDIOGRAM REPORT [...] Area(A4C): 21.60 cm2 Left Atrium Systolic Volume(A2C): 57595 mm3 Left Atrium Systolic Volume(A4C): 52997 mm3 Mitral Valve Right Ventricle Aorta AO Root Diam: 3.10 cm Aortic Valve Tricuspid Valve Pulmonic Valve Right Atrium Dictated by: Alfred Suggs M.D. on 02/06/2022 at 15:55 Approved by: Alfred Suggs M.D. on 02/06/2022 at 16:11 Normal [facility] CBC AUTO DIFFon 01-23-2022 BASO # 0.0 103/ul Normal 0.0-0.1 [facility] Comment on above: Performed By: #### A 1C #### [facility] [address] [place] [address] Dr. Julisa Lowe Basophils/100 WBC (Bld) 0.3 % Normal 0.2-2.0 [facility] Comment on above: Performed By: #### A 1C #### [facility] [address] [place] [address] Dr. Julisa Lowe EO # 0.1 103/ul Normal 0.0-0.7 [facility] Comment on above: Performed By: #### A 1C #### [facility] [address] [place] [address] Dr. Julisa Lowe Eosinophils/100 WBC (Bld) 1.0 % Normal 0.9-7.0 [facility] Comment on above: Performed By: #### A 1C #### [facility] [address] [place] [address] Dr. Julisa Lowe Erythrocyte distribution width (RBC) [Ratio] 18.6 % Critically high 11.0-15.0 [facility] Comment on above: Performed By: #### A 1C #### [facility] [address] [address] [address] Julisa Lowe Hematocrit (Bld) [Volume fraction] 29.6 % Critically low 36.0-48.0 [facility] Comment on above: Performed By: #### A 1C #### [facility] [address] [place] [address] Dr. Julisa Lowe Hemoglobin (Bld) [Mass/Vol] 8.5 g/dL Critically low 12.0-16.0 [facility] Comment on above: Performed By: #### A 1C #### [facility] [address] [place] [address] Dr. Julisa Lowe IG # 0.09 10e3/ul Critically high 0.00-0.03 [facility] Comment on above: Performed By: #### A 1C #### [facility] [address] [place] [address] Dr. Julisa Lowe IG % 0.7 % Critically high 0.0-0.5 [facility] Comment on above: Performed By: #### A 1C #### [facility] [address] [place] [address] Dr. Julisa Lowe LYMPH # 3.2 103/ul Normal 1.2-3.8 [facility] Comment on above: Performed By: #### A 1C #### [facility] [address] [place] [address] Dr. Julisa Lowe Lymphocytes/100 WBC (Bld) 25.5 % Normal 20.5-60.0 [facility] Comment on above: Performed By: #### A 1C #### [facility] [address] [place] [address] Dr. Julisa Lowe MANUAL DIFF REQ NO Normal [facility] Comment on above: Performed By: #### A 1C #### [facility] [address] [place] [address] Dr. Julisa Lowe MCH (RBC) [Entitic mass] 20.2 pg Critically low 26.7-34.0 [facility] Comment on above: Performed By: #### A 1C #### [facility] [address] [place] [address] Dr. Julisa Lowe MCHC (RBC) [Mass/Vol] 28.7 g/dL Critically low 29.9-35.2 [facility] Comment on above: Performed By: #### A 1C #### [facility] [address] [address] [address] Julisa Lowe MCV (RBC) [Entitic vol] 70.5 fL Critically low 81.0-99.0 [facility] Comment on above: Performed By: #### A 1C #### [facility] [address] [address] [address] Julisa Lowe MONO # 0.6 103/ul Normal 0.3-0.8 [facility] Comment on above: Performed By: #### A 1C #### [facility] [address] [place] [address] Dr. Julisa Lowe Monocytes/100 WBC (Bld) 4.8 % Normal 1.7-12.0 [facility] Comment on above: Performed By: #### A 1C #### [facility] [address] [place] [address] Dr. Julisa Lowe NEUT # 8.4 103/ul Critically high 1.4-6.5 [facility] Comment on above: Performed By: #### A 1C #### [facility] [address] [place] [address] Dr. Julisa Lowe Neutrophils/100 WBC (Bld) 67.7 % Normal 43.0-75.0 [facility] Comment on above: Performed By: #### A 1C #### [facility] [address] [address] [address] Julisa Lowe Platelet mean volume (Bld) [Entitic vol] 7.9 fL Critically low 9.5-13.5 [facility] Comment on above: Performed By: #### A 1C #### [facility] [address] [place] [address] Dr. Julisa Lowe PLT 252 103/ul Normal 150-450 [facility] Comment on above: Performed By: #### A 1C #### [facility] [address] [place] [address] Dr. Julisa Lowe RBC 4.20 106/ul Normal 4.20-5.40 [facility] Comment on above: Performed By: #### A 1C #### [facility] [address] [address] [address] Julisa Lowe WBC 12.4 103/ul Critically high 4.0-11.0 [facility] Comment on above: Performed By: #### A 1C #### [facility] [address] [place] [address] Dr. Julisa Lowe FERRITINon 01-23-2022 Ferritin [Mass/Vol] 7.0 ng/mL Critically low 8.0-252.0 [facility] Comment on above: Performed By: #### P OCGLUC #### [facility] [address] [place] [address] Dr. Julisa Lowe GLYCOHEMOGLOBIN A1Con 2021 ADA RECOMMENDATION SEE BELOW Normal [facility] Comment on above: Result Comment: ADA RECOMMENDED LIMIT 4.0 - 6.0 ADA THERAPEUTIC TARGET < 7.0 ACTION SUGGESTED > 7.0 Performed By: #### A 1C #### [facility] [address] [place] [address] Dr. Julisa Lowe Glucose [Mass/Vol] 197 mg/dL Normal [facility] Comment on above: Performed By: #### A 1C #### [facility] [address] [place] [address] Dr. Julisa Lowe HbA1c (Bld) [Mass fraction] 8.5 % Critically high 4.5-6.2 [facility] Comment on above: Performed By: #### A 1C #### [facility] [address] [place] [address] Dr. Julisa Lowe TSHon 01-23-2022 TSH 0.501 uIU/mL Normal 0.358-3.740 [facility] Comment on above: Performed By: #### A 1C #### [facility] [address] [place] [address] Dr. Julisa Lowe TSH RANGE SEE BELOW Normal [facility] Comment on above: Result Comment: <0.3 4 UIU/ml HYPERTHYROID 0.34-5.60 UIU/ml EUTHYROID >5.60 UIU/ml HYPOTHYROID Performed By: #### A 1C #### [facility] [address] [place] [address] Dr. Julisa Lowe VIT B12 AND FOLATEon 022 Cobalamin (Vitamin B12) [Mass/Vol] 193.0 pg/mL Normal 193.0-986.0 [facility] Comment on above: Performed By: #### P OCGLUC #### [facility] [address] [place] [address] Dr. Julisa Lowe FOLATE 12.90 ng/mL Normal 8.60-58.90 [facility] Comment on above: Performed By: #### P OCGLUC #### [facility] [address] [place] [address] Dr. Julisa Lowe CULTURE URINEon 12-23-2021 CULTURE [...] >=320 R F Normal [facility] Comment on above: Performed By: #### H STROPN #### [facility] [address] [place] [address] Dr. Julisa Lowe NM STRESS/REST MULTIon 12-22 NM STRESS/REST MULTI Patient: ROBINA RON Exam Date: 12/22/2021 : 1950 Gender:F Ordering : EDD WADE Admission #: [id number] Family : DR ESTUARDO SANCHEZ . Order #: [id number] CLICK HERE TO VIEW EXAM RADIOLOGY REPORT [...] 12/22/2021 at 12:45 Normal [facility] CBC AUTO DIFFon 12-21-2021 BASO # 0.0 103/ul Normal 0.0-0.1 [facility] Comment on above: Performed By: #### A 1C #### [facility] [address] [place] [address] Dr. Julisa Lowe Basophils/100 WBC (Bld) 0.4 % Normal 0.2-2.0 [facility] Comment on above: Performed By: #### A 1C #### [facility] [address] [address] [address] Julisa Lowe EO # 0.1 103/ul Normal 0.0-0.7 [facility] Comment on above: Performed By: #### A 1C #### [facility] [address] [place] [address] Dr. Julisa Lowe Eosinophils/100 WBC (Bld) 1.3 % Normal 0.9-7.0 [facility] Comment on above: Performed By: #### A 1C #### [facility] [address] [place] [address] Dr. Julisa Lowe Erythrocyte distribution width (RBC) [Ratio] 19.7 % Critically high 11.0-15.0 [facility] Comment on above: Performed By: #### A 1C #### [facility] [address] [place] [address] Dr. Julisa Lowe Hematocrit (Bld) [Volume fraction] 31.6 % Critically low 36.0-48.0 [facility] Comment on above: Performed By: #### A 1C #### [facility] [address] [place] [address] Dr. Julisa Lowe Hemoglobin (Bld) [Mass/Vol] 9.2 g/dL Critically low 12.0-16.0 [facility] Comment on above: Performed By: #### A 1C #### [facility] [address] [place] [address] Dr. Julisa Lowe IG # 0.07 10e3/ul Critically high 0.00-0.03 [facility] Comment on above: Performed By: #### A 1C #### [facility] [address] [place] [address] Dr. Julisa Lowe IG % 0.7 % Critically high 0.0-0.5 [facility] Comment on above: Performed By: #### A 1C #### [facility] [address] [place] [address] Dr. Julisa Lowe LYMPH # 3.2 103/ul Normal 1.2-3.8 [facility] Comment on above: Performed By: #### A 1C #### [facility] [address] [place] [address] Dr. Julias Lowe Lymphocytes/100 WBC (Bld) 30.8 % Normal 20.5-60.0 [facility] Comment on above: Performed By: #### A 1C #### [facility] [address] [place] [address] Dr. Julisa Lowe MANUAL DIFF REQ NO Normal [facility] Comment on above: Performed By: #### A 1C #### [facility] [address] [address] [address] Julisa Lowe MCH (RBC) [Entitic mass] 20.4 pg Critically low 26.7-34.0 [facility] Comment on above: Performed By: #### A 1C #### [facility] [address] [place] [address] Dr. Julisa Lowe MCHC (RBC) [Mass/Vol] 29.1 g/dL Critically low 29.9-35.2 [facility] Comment on above: Performed By: #### A 1C #### [facility] [address] [place] [address] Dr. Julisa Lowe MCV (RBC) [Entitic vol] 69.9 fL Critically low 81.0-99.0 [facility] Comment on above: Performed By: #### A 1C #### [facility] [address] [place] [address] Dr. Julisa Lowe MONO # 0.8 103/ul Normal 0.3-0.8 [facility] Comment on above: Performed By: #### A 1C #### [facility] [address] [place] [address] Dr. Julisa Lowe Monocytes/100 WBC (Bld) 7.3 % Normal 1.7-12.0 [facility] Comment on above: Performed By: #### A 1C #### [facility] [address] [place] [address] Dr. Julisa Lowe NEUT # 6.2 103/ul Normal 1.4-6.5 [facility] Comment on above: Performed By: #### A 1C #### [facility] [address] [place] [address] Dr. Julsia Lowe Neutrophils/100 WBC (Bld) 59.5 % Normal 43.0-75.0 [facility] Comment on above: Performed By: #### A 1C #### [facility] [address] [place] [address] Dr. Julisa Lowe Platelet mean volume (Bld) [Entitic vol] 8.4 fL Critically low 9.5-13.5 [facility] Comment on above: Performed By: #### A 1C #### [facility] [address] [address] [address] Julisa Lowe PLT 301 103/ul Normal 150-450 [facility] Comment on above: Performed By: #### A 1C #### [facility] [address] [address] [address] Julisa Lowe RBC 4.52 106/ul Normal 4.20-5.40 [facility] Comment on above: Performed By: #### A 1C #### [facility] [address] [address] [address] Julisa Lowe WBC 10.4 103/ul Normal 4.0-11.0 [facility] Comment on above: Performed By: #### A 1C #### [facility] [address] [place] [address] Dr. Julisa Lowe POINT OF CARE GLUCOSEon 12-12 Glucose [Mass/Vol] 183 mg/dL Critically high 74-106 [facility] Comment on above: Performed By: #### P OCGLUC #### [facility] [address] [address] [address] Julisa Lowe Glucose [Mass/Vol] 351 mg/dL Critically high 74-106 [facility] Comment on above: Performed By: #### H STROPN #### [facility] [address] [place] [address] Dr. Julisa Loew PROF CHEM 8 (BAS METB)on Anion gap [Moles/Vol] 14.6 mmol/L Normal [facility] Comment on above: Performed By: #### S EDR #### [facility] [address] [address] [address] Julisa Lowe Calcium [Mass/Vol] 8.6 mg/dL Normal 8.5-10.1 [facility] Comment on above: Performed By: #### S EDR #### [facility] [address] [address] [address] Julisa Lowe Chloride [Moles/Vol] 107 mmol/L Normal 98-107 [facility] Comment on above: Performed By: #### S EDR #### [facility] [address] [address] [address] Julisa Lowe CO2 [Moles/Vol] 24.6 mmol/L Normal 22.0-30.0 [facility] Comment on above: Performed By: #### S EDR #### [facility] [address] [address] [address] Julisa Lowe Creatinine [Mass/Vol] 0.57 mg/dL Normal 0.52-1.04 [facility] Comment on above: Performed By: #### S EDR #### [facility] [address] [address] [address] Julisa Lowe EGFR-AF LIBERIAN >60 Normal >=60 [facility] Comment on above: Performed By: #### S EDR #### [facility] [address] [address] [address] Julisa Lowe EGFR-NON AF LIBERIAN >60 Normal >=60 [facility] Comment on above: Performed By: #### S EDR #### [facility] [address] [address] [address] Julisa Lowe Glucose [Mass/Vol] 189 mg/dL Critically high 74-106 [facility] Comment on above: Performed By: #### S EDR #### [facility] [address] [address] [address] Julisa Lowe Potassium [Moles/Vol] 4.2 mmol/L Normal 3.4-5.0 [facility] Comment on above: Performed By: #### S EDR #### [facility] [address] [address] [address] Julisa Lowe Sodium [Moles/Vol] 142 mmol/L Normal 137-145 [facility] Comment on above: Performed By: #### S EDR #### [facility] [address] [address] [address] Julisa Lowe Urea nitrogen [Mass/Vol] 16.0 mg/dL Normal 7.0-18.0 [facility] Comment on above: Performed By: #### S EDR #### [facility] [address] [address] [address] Julisa Lowe Urea nitrogen/Creatinine [Mass ratio] 28.1 mg/mg Normal [facility] Comment on above: Performed By: #### S EDR #### [facility] [address] [place] [address] Dr. Julisa Lowe BNPon 12-20-2021 Natriuretic peptide B (Bld) [Mass/Vol] 880.0 pg/mL Normal <=900.0 [facility] Comment on above: Performed By: #### H STROPN #### [facility] [address] [place] [address] Dr. Julisa Lowe CARDIAC TRUONG ADMITon 022 CK <20 Critically low 30-135 [facility] Comment on above: Performed By: #### H STROPN #### [facility] [address] [place] [address] Dr. Julisa Lowe CK.MB [Mass/Vol] ng/mL Normal <=2.37 [facility] Comment on above: Performed By: #### H STROPN #### [facility] [address] [place] [address] Dr. Julisa Lowe HSTROP 15.1 pg/mL Normal 4.0-35.5 [facility] Comment on above: Result Comment: CUT- OFF POINTS HAVE BEEN ESTABLISHED BASED ON THE FOURTH UNIVERSAL DEFINITIONS OF MYOCARDIAL INFARCTION. THE UPPER REFERENCE LIMIT (URL) OF TROPONIN, DEFINED THE 99TH PERCENTILE OF cTnI DISTRIBUTION IN A REFERENCE POPULATION, HAS BEEN CONFIRMED THE DECISION THRESHOLD FOR DC DIAGNOSIS. Performed By: #### H STROPN #### [facility] [address] [place] [address] Dr. Julisa Lowe RAJ 24.0 ng/mL Normal <=61.5 [facility] Comment on above: Performed By: #### H STROPN #### [facility] [address] [place] [address] Dr. Julisa Lowe CBC AUTO DIFFon 12-20-2021 BASO # 0.1 103/ul Normal 0.0-0.1 [facility] Comment on above: Performed By: #### S EDR #### [facility] [address] [address] [address] Julisa Lowe Basophils/100 WBC (Bld) 0.5 % Normal 0.2-2.0 [facility] Comment on above: Performed By: #### S EDR #### [facility] [address] [address] [address] Julisa Lowe EO # 0.1 103/ul Normal 0.0-0.7 [facility] Comment on above: Performed By: #### S EDR #### [facility] [address] [address] [address] Julisa Lowe Eosinophils/100 WBC (Bld) 1.0 % Normal 0.9-7.0 [facility] Comment on above: Performed By: #### S EDR #### [facility] [address] [place] [address] Dr. Julisa Lowe Erythrocyte distribution width (RBC) [Ratio] 19.8 % Critically high 11.0-15.0 [facility] Comment on above: Result Comment: slig ht poikilocytosis, moderate anisocytosis, Performed By: #### S EDR #### [facility] [address] [place] [address] Dr. Julisa Lowe Hematocrit (Bld) [Volume fraction] 32.7 % Critically low 36.0-48.0 [facility] Comment on above: Performed By: #### S EDR #### [facility] [address] [address] [address] Julisa Lowe Hemoglobin (Bld) [Mass/Vol] 9.6 g/dL Critically low 12.0-16.0 [facility] Comment on above: Performed By: #### S EDR #### [facility] [address] [place] [address] Dr. Julisa Lowe IG # 0.07 10e3/ul Critically high 0.00-0.03 [facility] Comment on above: Performed By: #### S EDR #### [facility] [address] [place] [address] Dr. Julisa Lowe IG % 0.7 % Critically high 0.0-0.5 [facility] Comment on above: Performed By: #### S EDR #### [facility] [address] [place] [address] Dr. Julisa Lowe LYMPH # 3.1 103/ul Normal 1.2-3.8 [facility] Comment on above: Performed By: #### S EDR #### [facility] [address] [place] [address] Dr. Julisa Lowe Lymphocytes/100 WBC (Bld) 29.7 % Normal 20.5-60.0 [facility] Comment on above: Performed By: #### S EDR #### [facility] [address] [place] [address] Dr. Julisa Lowe MANUAL DIFF REQ NO Normal [facility] Comment on above: Performed By: #### S EDR #### [facility] [address] [place] [address] Dr. Julisa Lowe MCH (RBC) [Entitic mass] 20.5 pg Critically low 26.7-34.0 [facility] Comment on above: Performed By: #### S EDR #### [facility] [address] [place] [address] Dr. Julisa Lowe MCHC (RBC) [Mass/Vol] 29.4 g/dL Critically low 29.9-35.2 [facility] Comment on above: Performed By: #### S EDR #### [facility] [address] [place] [address] Dr. Julisa Lowe MCV (RBC) [Entitic vol] 69.9 fL Critically low 81.0-99.0 [facility] Comment on above: Result Comment: few ovalocytes, moderate hypochromasia Performed By: #### S EDR #### [facility] [address] [place] [address] Dr. Julisa Lowe MONO # 0.6 103/ul Normal 0.3-0.8 [facility] Comment on above: Performed By: #### S EDR #### [facility] [address] [address] [address] Julisa Lowe Monocytes/100 WBC (Bld) 5.6 % Normal 1.7-12.0 [facility] Comment on above: Performed By: #### S EDR #### [facility] [address] [place] [address] Dr. Julisa Lowe NEUT # 6.5 103/ul Normal 1.4-6.5 [facility] Comment on above: Performed By: #### S EDR #### [facility] [address] [place] [address] Dr. Julisa Lowe Neutrophils/100 WBC (Bld) 62.5 % Normal 43.0-75.0 [facility] Comment on above: Performed By: #### S EDR #### [facility] [address] [place] [address] Dr. Julisa Lowe Platelet mean volume (Bld) [Entitic vol] 8.8 fL Critically low 9.5-13.5 [facility] Comment on above: Performed By: #### S EDR #### [facility] [address] [place] [address] Dr. Julisa Lowe PLT 280 103/ul Normal 150-450 [facility] Comment on above: Performed By: #### S EDR #### [facility] [address] [place] [address] Dr. Julisa Lowe RBC 4.68 106/ul Normal 4.20-5.40 [facility] Comment on above: Performed By: #### S EDR #### [facility] [address] [place] [address] Dr. Julisa Lowe WBC 10.5 103/ul Normal 4.0-11.0 [facility] Comment on above: Performed By: #### S EDR #### [facility] [address] [place] [address] Dr. Julisa Lowe Covid-19 PCR ([facility])on SARS-CoV-2 (COVID-19) RNA CHALINO+probe Ql (Unsp spec) Not detected Normal NOT DETECTED [facility] Comment on above: Result Comment: When [...] for this test is supported by the [employer] Manager of Health and Human Service's declaration that [...] By: #### P OCGLUC #### [facility] [address] [place] [address] Dr. Julisa Lowe ER URINE PROFILEon 2 Bilirubin Ql (U) Negative Normal NEGATIVE [facility] Comment on above: Performed By: #### S EDR #### [facility] [address] [place] [address] Dr. Julisa Lowe Clarity (U) SL CLOUDY Abnormal CLEAR [facility] Comment on above: Performed By: #### S EDR #### [facility] [address] [place] [address] Dr. Julisa Lowe Color (U) LT. YELLOW Normal YELLOW [facility] Comment on above: Performed By: #### S EDR #### [facility] [address] [place] [address] Dr. Julisa Lowe ERUAHD A micrscopic examination will be performed if indicated. Normal [facility] Comment on above: Performed By: #### S EDR #### [facility] [address] [place] [address] Dr. Julisa Lowe Glucose Ql (U) Negative Normal NEGATIVE [facility] Comment on above: Performed By: #### S EDR #### [facility] [address] [place] [address] Dr. Julisa Lowe Hemoglobin Ql (U) Negative Normal NEGATIVE [facility] Comment on above: Performed By: #### S EDR #### [facility] [address] [place] [address] Dr. Julisa Lowe Ketones Ql (U) Negative Normal NEGATIVE [facility] Comment on above: Performed By: #### S EDR #### [facility] [address] [place] [address] Dr. Julisa Lowe LEUKOCYTES TRACE Abnormal NEGATIVE [facility] Comment on above: Performed By: #### S EDR #### [facility] [address] [place] [address] Dr. Julisa Lowe Nitrite Ql (U) Negative Normal NEGATIVE [facility] Comment on above: Performed By: #### S EDR #### [facility] [address] [place] [address] Dr. Julisa Lowe pH (U) 7.5 [pH] Normal 5-9 [facility] Comment on above: Performed By: #### S EDR #### [facility] [address] [place] [address] Dr. Julisa Lowe Protein (U) [Mass/Vol] 100 mg/dL Abnormal NEGAT CRISTOPHER/ TRACE [facility] Comment on above: Performed By: #### S EDR #### [facility] [address] [place] [address] Dr. Julisa Lowe SPEC GRAVITY 1.020 Normal 1.005-<=1.025 [facility] Comment on above: Performed By: #### S EDR #### [facility] [address] [place] [address] Dr. Julisa Lowe UR MICRO IND INDICATED Normal [facility] Comment on above: Performed By: #### S EDR #### [facility] [address] [place] [address] Dr. Julias Lowe Urobilinogen Qn (U) 0.2 {Shirley'U}/dL Normal 0.2 - 1. 0 [facility] Comment on above: Performed By: #### S EDR #### [facility] [address] [address] [address] Julisa Lowe POINT OF CARE GLUCOSEon 04-0 Glucose [Mass/Vol] 145 mg/dL Critically high 74-106 [facility] Comment on above: Performed By: #### S EDR #### [facility] [address] [place] [address] Dr. Julisa Lowe PROF 14(COMP METB)on 022 Albumin [Mass/Vol] 3.0 g/dL Critically low 3.4-5.0 [facility] Comment on above: Performed By: #### H STROPN #### [facility] [address] [place] [address] Dr. Julisa Lowe Albumin/Globulin [Mass ratio] 1.0 {ratio} Normal [facility] Comment on above: Performed By: #### H STROPN #### [facility] [address] [place] [address] Dr. Julisa Lowe ALP [Catalytic activity/Vol] 110 U/L Normal 46-116 [facility] Comment on above: Performed By: #### H STROPN #### [facility] [address] [place] [address] Dr. Julisa Lowe ALT [Catalytic activity/Vol] 18 U/L Normal 14-59 [facility] Comment on above: Performed By: #### H STROPN #### [facility] [address] [place] [address] Dr. Julisa Lowe Anion gap [Moles/Vol] 13.4 mmol/L Normal [facility] Comment on above: Performed By: #### H STROPN #### [facility] [address] [place] [address] Dr. Julisa Lowe AST [Catalytic activity/Vol] 8 U/L Critically low 15-37 [facility] Comment on above: Performed By: #### H STROPN #### [facility] [address] [place] [address] Dr. Julisa Lowe Bilirubin [Mass/Vol] 0.3 mg/dL Normal 0.2-1.3 [facility] Comment on above: Performed By: #### H STROPN #### [facility] [address] [address] [address] Julisa Lowe Calcium [Mass/Vol] 8.5 mg/dL Normal 8.5-10.1 [facility] Comment on above: Performed By: #### H STROPN #### [facility] [address] [address] [address] uJlisa Lowe Chloride [Moles/Vol] 106 mmol/L Normal 98-107 [facility] Comment on above: Performed By: #### H STROPN #### [facility] [address] [address] [address] Julisa Lowe CO2 [Moles/Vol] 26.3 mmol/L Normal 22.0-30.0 [facility] Comment on above: Performed By: #### H STROPN #### [facility] [address] [place] [address] Dr. Julisa Lowe Creatinine [Mass/Vol] 0.52 mg/dL Normal 0.52-1.04 [facility] Comment on above: Performed By: #### H STROPN #### [facility] [address] [place] [address] Dr. Julisa Lowe EGFR-AF LIBERIAN >60 Normal >=60 [facility] Comment on above: Performed By: #### H STROPN #### [facility] [address] [place] [address] Dr. Julisa Lowe EGFR-NON AF LIBERIAN >60 Normal >=60 [facility] Comment on above: Performed By: #### H STROPN #### [facility] [address] [place] [address] Dr. Julisa Lowe Globulin (S) [Mass/Vol] 3.0 g/dL Normal [facility] Comment on above: Performed By: #### H STROPN #### [facility] [address] [address] [address] Julisa Lowe Glucose [Mass/Vol] 147 mg/dL Critically high 74-106 [facility] Comment on above: Performed By: #### H STROPN #### [facility] [address] [place] [address] Dr. Julisa Lowe Potassium [Moles/Vol] 3.7 mmol/L Normal 3.4-5.0 [facility] Comment on above: Performed By: #### H STROPN #### [facility] [address] [place] [address] Dr. Julisa Lowe Protein [Mass/Vol] 6.0 g/dL Critically low 6.1-8.2 [facility] Comment on above: Performed By: #### H STROPN #### [facility] [address] [place] [address] Dr. Julisa Lowe Sodium [Moles/Vol] 142 mmol/L Normal 137-145 [facility] Comment on above: Performed By: #### H STROPN #### [facility] [address] [place] [address] Dr. Julisa Lowe Urea nitrogen [Mass/Vol] 13.0 mg/dL Normal 7.0-18.0 [facility] Comment on above: Performed By: #### H STROPN #### [facility] [address] [place] [address] Dr. Julisa Lowe Urea nitrogen/Creatinine [Mass ratio] 25.0 mg/mg Normal [facility] Comment on above: Performed By: #### H STROPN #### [facility] [address] [place] [address] Dr. Julisa Lowe PROTIMEon 12-20-2021 INR Coag (PPP) [Relative time] 0.94 {INR} Normal [facility] Comment on above: Performed By: #### S EDR #### [facility] [address] [place] [address] Dr. Julisa Lowe INR GUIDELINES SEE BELOW Normal [facility] Comment on above: Result Comment: NHI RED INR: 2.0 - 3.0 CONDITIONS NOT LISTED BELOW 2.5 - 3.5 FOR PROSTHETIC HEART VALVE REPLACEMENT 2.5 - 3.5 RECURRENT THROMBOSIS Performed By: #### S EDR #### [facility] [address] [place] [address] Dr. Julisa Lowe PT Coag (PPP) [Time] 10.2 s Normal 9.0-11.6 [facility] Comment on above: Performed By: #### S EDR #### [facility] [address] [place] [address] Dr. Julisa Lowe PTTon 12-20-2021 aPTT Coag (Bld) [Time] 21.7 s Critically low 22.3-36.2 [facility] Comment on above: Performed By: #### S EDR #### [facility] [address] [place] [address] Dr. Julisa Lowe TROPONIN, HIGH SENSITIVITYon 12-20-2021 HSTROP 16.3 pg/mL Normal 4.0-35.5 [facility] Comment on above: Result Comment: CUT- OFF POINTS HAVE BEEN ESTABLISHED BASED ON THE FOURTH UNIVERSAL DEFINITIONS OF MYOCARDIAL INFARCTION. THE UPPER REFERENCE LIMIT (URL) OF TROPONIN, DEFINED THE 99TH PERCENTILE OF cTnI DISTRIBUTION IN A REFERENCE POPULATION, HAS BEEN CONFIRMED THE DECISION THRESHOLD FOR DC DIAGNOSIS. Performed By: #### P OCGLUC #### [facility] [address] [place] [address] Dr. Julisa Lowe HSTROP 16.8 pg/mL Normal 4.0-35.5 [facility] Comment on above: Result Comment: CUT- OFF POINTS HAVE BEEN ESTABLISHED BASED ON THE FOURTH UNIVERSAL DEFINITIONS OF MYOCARDIAL INFARCTION. THE UPPER REFERENCE LIMIT (URL) OF TROPONIN, DEFINED THE 99TH PERCENTILE OF cTnI DISTRIBUTION IN A REFERENCE POPULATION, HAS BEEN CONFIRMED THE DECISION THRESHOLD FOR DC DIAGNOSIS. Performed By: #### H STROPN #### [facility] [address] [place] [address] Dr. Julisa Lowe URINE MICROSCOPIC ONLYon BACTERIA LARGE Abnormal NONE SEEN [facility] Comment on above: Performed By: #### S EDR #### [facility] [address] [place] [address] Dr. Julisa Lowe Bacteria identified Cx Nom (U) INDICATED Normal [facility] Comment on above: Performed By: #### S EDR #### [facility] [address] [place] [address] Dr. Julisa Lowe CAST NONE SEEN Normal NONE SEEN [facility] Comment on above: Performed By: #### S EDR #### [facility] [address] [address] [address] Julisa Lowe Crystals LM Nom (Urine sed) NONE SEEN Normal NONE SEEN [facility] Comment on above: Performed By: #### S EDR #### [facility] [address] [address] [address] Julisa Lowe Epithelial cells LM Ql (Urine sed) FEW Abnormal NONE SEEN /RARE [facility] Comment on above: Performed By: #### S EDR #### [facility] [address] [place] [address] Dr. Julisa Lowe MUCOUS NONE SEEN Normal NONE SEEN [facility] Comment on above: Performed By: #### S EDR #### [facility] [address] [place] [address] Dr. Julisa Lowe RBC 0-2 Normal 0-2 [facility] Comment on above: Performed By: #### S EDR #### [facility] [address] [place] [address] Dr. Julisa Lowe WBC 10-20 Abnormal NONE SEEN [facility] Comment on above: Performed By: #### S EDR #### [facility] [address] [place] [address] Dr. Julisa Lowe XR CHEST 1 Von [...] Date: 2021-12-20 15:58 Normal [facility] JOSEE by IFAon 12-18-2021 Antinuclear Antibodies, IFA Negative Normal [facility] Comment on above: Result Comment: Nega tive <1:80 Borderline 1:80 Positive >1:80 ICAP nomenclature: AC-0 For more information about Hep-2 cell patterns use ANApatterns.org, the official website for the International Consensus on Antinuclear Antibody (JOSEE) Patterns (ICAP). Performed By: #### H STROPN #### [facility] [address] [address] [address] Julisa Lowe CBC AUTO DIFFon 12-15-2021 BASO # 0.0 103/ul Normal 0.0-0.1 [facility] Comment on above: Performed By: #### A 1C #### [facility] [address] [place] [address] Dr. Julisa Lowe Basophils/100 WBC (Bld) 0.3 % Normal 0.2-2.0 [facility] Comment on above: Performed By: #### A 1C #### [facility] [address] [place] [address] Dr. Julisa Lowe EO # 0.1 103/ul Normal 0.0-0.7 [facility] Comment on above: Performed By: #### A 1C #### [facility] [address] [place] [address] Dr. Julisa Lowe Eosinophils/100 WBC (Bld) 0.9 % Normal 0.9-7.0 [facility] Comment on above: Performed By: #### A 1C #### [facility] [address] [place] [address] Dr. Julisa Lowe Erythrocyte distribution width (RBC) [Ratio] 19.6 % Critically high 11.0-15.0 [facility] Comment on above: Performed By: #### A 1C #### [facility] [address] [place] [address] Dr. Julisa Lowe Hematocrit (Bld) [Volume fraction] 33.8 % Critically low 36.0-48.0 [facility] Comment on above: Performed By: #### A 1C #### [facility] [address] [place] [address] Dr. Julisa Lowe Hemoglobin (Bld) [Mass/Vol] 9.7 g/dL Critically low 12.0-16.0 [facility] Comment on above: Performed By: #### A 1C #### [facility] [address] [place] [address] Dr. Julisa Lowe IG # 0.13 10e3/ul Critically high 0.00-0.03 [facility] Comment on above: Performed By: #### A 1C #### [facility] [address] [place] [address] Dr. Julisa Lowe IG % 0.9 % Critically high 0.0-0.5 [facility] Comment on above: Performed By: #### A 1C #### [facility] [address] [place] [address] Dr. Julisa Lowe LYMPH # 3.5 103/ul Normal 1.2-3.8 [facility] Comment on above: Performed By: #### A 1C #### [facility] [address] [place] [address] Dr. Julisa Lowe Lymphocytes/100 WBC (Bld) 25.4 % Normal 20.5-60.0 [facility] Comment on above: Performed By: #### A 1C #### [facility] [address] [place] [address] Dr. Julisa Lowe MANUAL DIFF REQ NO Normal [facility] Comment on above: Performed By: #### A 1C #### [facility] [address] [place] [address] Dr. Julisa Lowe MCH (RBC) [Entitic mass] 20.4 pg Critically low 26.7-34.0 [facility] Comment on above: Performed By: #### A 1C #### [facility] [address] [place] [address] Dr. Julisa Lowe MCHC (RBC) [Mass/Vol] 28.7 g/dL Critically low 29.9-35.2 [facility] Comment on above: Performed By: #### A 1C #### [facility] [address] [place] [address] Dr. Julisa Lowe MCV (RBC) [Entitic vol] 71.2 fL Critically low 81.0-99.0 [facility] Comment on above: Performed By: #### A 1C #### [facility] [address] [place] [address] Dr. Julisa Lowe MONO # 0.7 103/ul Normal 0.3-0.8 [facility] Comment on above: Performed By: #### A 1C #### [facility] [address] [address] [address] Julisa Lowe Monocytes/100 WBC (Bld) 5.0 % Normal 1.7-12.0 [facility] Comment on above: Performed By: #### A 1C #### [facility] [address] [address] [address] Julisa Lowe NEUT # 9.3 103/ul Critically high 1.4-6.5 [facility] Comment on above: Performed By: #### A 1C #### [facility] [address] [address] [address] Julisa Lowe Neutrophils/100 WBC (Bld) 67.5 % Normal 43.0-75.0 [facility] Comment on above: Performed By: #### A 1C #### [facility] [address] [address] [address] Julisa Lowe Platelet mean volume (Bld) [Entitic vol] 8.2 fL Critically low 9.5-13.5 [facility] Comment on above: Performed By: #### A 1C #### [facility] [address] [address] [address] Julisa Lowe PLT 301 103/ul Normal 150-450 [facility] Comment on above: Performed By: #### A 1C #### [facility] [address] [address] [address] Julisa Lowe RBC 4.75 106/ul Normal 4.20-5.40 [facility] Comment on above: Result Comment: HYPO CHROMIA 3+ Performed By: #### A 1C #### [facility] [address] [address] [address] Julisa Lowe WBC 13.8 103/ul Critically high 4.0-11.0 The [facility] Comment on above: Performed By: #### A 1C #### [facility] [address] [place] [address] Dr. Julisa Lowe CRPon 12-15-2021 CRP [Mass/Vol] mg/L Normal <=1.0 [facility] Comment on above: Performed By: #### C MP, CRP, TSH #### [facility] [address] [address] [address] Julisa Lowe FREE T4on 12-15-2021 Free T4 [Mass/Vol] 1.04 ng/dL Normal 0.78-2.19 [facility] Comment on above: Performed By: #### S EDR #### [facility] [address] [address] [address] Julisa Lowe PROF 14(COMP METB)on 022 Albumin [Mass/Vol] 3.4 g/dL Normal 3.4-5.0 [facility] Comment on above: Performed By: #### C MP, CRP, TSH #### [facility] [address] [place] [address] Dr. Julisa Lowe Albumin/Globulin [Mass ratio] 1.1 {ratio} Normal [facility] Comment on above: Performed By: #### C MP, CRP, TSH #### [facility] [address] [place] [address] Dr. Julisa Lowe ALP [Catalytic activity/Vol] 120 U/L Critically high 46-116 [facility] Comment on above: Performed By: #### C MP, CRP, TSH #### [facility] [address] [place] [address] Dr. Julisa Lowe ALT [Catalytic activity/Vol] 28 U/L Normal 14-59 [facility] Comment on above: Performed By: #### C MP, CRP, TSH #### [facility] [address] [place] [address] Dr. Julisa Lowe Anion gap [Moles/Vol] 12.7 mmol/L Normal [facility] Comment on above: Performed By: #### C MP, CRP, TSH #### [facility] [address] [place] [address] Dr. Julisa Lowe AST [Catalytic activity/Vol] 13 U/L Critically low 15-37 [facility] Comment on above: Performed By: #### C MP, CRP, TSH #### [facility] [address] [address] [address] Julisa Lowe Bilirubin [Mass/Vol] 0.3 mg/dL Normal 0.2-1.3 [facility] Comment on above: Performed By: #### C MP, CRP, TSH #### [facility] [address] [place] [address] Dr. Julisa Lowe Calcium [Mass/Vol] 8.4 mg/dL Critically low 8.5-10.1 [facility] Comment on above: Performed By: #### C MP, CRP, TSH #### [facility] [address] [address] [address] Julisa Lowe Chloride [Moles/Vol] 106 mmol/L Normal 98-107 [facility] Comment on above: Performed By: #### C MP, CRP, TSH #### [facility] [address] [place] [address] Dr. Julisa Lowe CO2 [Moles/Vol] 25.8 mmol/L Normal 22.0-30.0 [facility] Comment on above: Performed By: #### C MP, CRP, TSH #### [facility] [address] [place] [address] Dr. Julisa Lowe Creatinine [Mass/Vol] 0.68 mg/dL Normal 0.52-1.04 [facility] Comment on above: Performed By: #### C MP, CRP, TSH #### [facility] [address] [place] [address] Dr. Julisa Lowe EGFR-AF LIBERIAN >60 Normal >=60 The [facility] Comment on above: Performed By: #### C MP, CRP, TSH #### [facility] [address] [place] [address] Dr. Julisa Lowe EGFR-NON AF LIBERIAN >60 Normal >=60 [facility] Comment on above: Performed By: #### C MP, CRP, TSH #### [facility] [address] [place] [address] Dr. Julisa Lowe Globulin (S) [Mass/Vol] 3.2 g/dL Normal [facility] Comment on above: Performed By: #### C MP, CRP, TSH #### [facility] [address] [address] [address] Julisa Lowe Glucose [Mass/Vol] 222 mg/dL Critically high 74-106 [facility] Comment on above: Performed By: #### C MP, CRP, TSH #### [facility] [address] [address] [address] Julisa Lowe Potassium [Moles/Vol] 3.5 mmol/L Normal 3.4-5.0 [facility] Comment on above: Performed By: #### C MP, CRP, TSH #### [facility] [address] [address] [address] Julisa Lowe Protein [Mass/Vol] 6.6 g/dL Normal 6.1-8.2 [facility] Comment on above: Performed By: #### C MP, CRP, TSH #### [facility] [address] [address] [address] Julisa Lowe Sodium [Moles/Vol] 141 mmol/L Normal 137-145 [facility] Comment on above: Performed By: #### C MP, CRP, TSH #### [facility] [address] [address] [address] Julisa Lowe Urea nitrogen [Mass/Vol] 14.0 mg/dL Normal 7.0-18.0 [facility] Comment on above: Performed By: #### C MP, CRP, TSH #### [facility] [address] [address] [address] Julisa Lowe Urea nitrogen/Creatinine [Mass ratio] 20.6 mg/mg Normal [facility] Comment on above: Performed By: #### C MP, CRP, TSH #### [facility] [address] [address] [address] Julisa Lowe SED RATE [facility] 2021 SED RATE 10 mm/hr Normal <=30 [facility] Comment on above: Performed By: #### S EDR #### [facility] [address] [address] [address] Julisa Lowe TSHon 12-15-2021 TSH 0.747 uIU/mL Normal 0.470-4.680 [facility] Comment on above: Performed By: #### C MP, CRP, TSH #### [facility] [address] [place], [place] [address] Dr. Julisa Lowe TSH RANGE SEE BELOW Normal [facility] Comment on above: Result Comment: <0.3 4 UIU/ml HYPERTHYROID 0.34-5.60 UIU/ml EUTHYROID >5.60 UIU/ml HYPOTHYROID Performed By: #### C MP, CRP, TSH #### [facility] [address] [place], [place] [address] Dr. Julisa Lowe ECHOCARDIO M/2D COMPLETEon 0 12-04-2021 ECHOCARDIO M/2D COMPLETE Patient: ROBINA RON Exam Date: 12/04/2021 : 1950 Gender:F Ordering : SHAIKH Chaparrita Carey Admission #: [id number] Family : Order #: [id number] CLICK HERE TO VIEW EXAM ECHOCARDIOGRAM REPORT [...] Area(A4C): 21.50 cm2 Left Atrium Systolic Volume(A2C): 84972 mm3 Left Atrium Systolic Volume(A4C): 73634 mm3 Mitral Valve MV E to A [...] Gradient: 8 mm[Hg] Right Atrium Dictated by: Chirs Fuchs M.D. on 12/04/2021 at 18:25 Approved by: Chris Fuchs M.D. on 12/04/2021 at 18:31 Normal [facility] CBC AUTO DIFFon 09-10-2021 BASO # 0.1 103/ul Normal 0.0-0.1 [facility] Comment on above: Performed By: #### S EDR #### [facility] [address] [place] [address] Dr. Julisa Lowe Basophils/100 WBC (Bld) 0.4 % Normal 0.2-2.0 [facility] Comment on above: Performed By: #### S EDR #### [facility] [address] [place] [address] Dr. Julisa Lowe EO # 0.2 103/ul Normal 0.0-0.7 [facility] Comment on above: Performed By: #### S EDR #### [facility] [address] [place] [address] Dr. Julisa Lowe Eosinophils/100 WBC (Bld) 1.2 % Normal 0.9-7.0 [facility] Comment on above: Performed By: #### S EDR #### [facility] [address] [place] [address] Dr. Julisa Lowe Erythrocyte distribution width (RBC) [Ratio] 17.8 % Critically high 11.0-15.0 [facility] Comment on above: Performed By: #### S EDR #### [facility] [address] [place] [address] Dr. Julisa Lowe Hematocrit (Bld) [Volume fraction] 36.6 % Normal 36.0-48.0 [facility] Comment on above: Performed By: #### S EDR #### [facility] [address] [place] [address] Dr. Julisa Lowe Hemoglobin (Bld) [Mass/Vol] 10.1 g/dL Critically low 12.0-16.0 [facility] Comment on above: Performed By: #### S EDR #### [facility] [address] [place] [address] Dr. Julisa Lowe IG # 0.08 10e3/ul Critically high 0.00-0.03 [facility] Comment on above: Performed By: #### S EDR #### [facility] [address] [place] [address] Dr. Julisa Lowe IG % 0.6 % Critically high 0.0-0.5 [facility] Comment on above: Performed By: #### S EDR #### [facility] [address] [place] [address] Dr. Julisa Lowe LYMPH # 3.1 103/ul Normal 1.2-3.8 [facility] Comment on above: Performed By: #### S EDR #### [facility] [address] [place] [address] Dr. Julisa Lowe Lymphocytes/100 WBC (Bld) 23.2 % Normal 20.5-60.0 [facility] Comment on above: Performed By: #### S EDR #### [facility] [address] [place] [address] Dr. Julisa Lowe MANUAL DIFF REQ NO Normal [facility] Comment on above: Performed By: #### S EDR #### [facility] [address] [place] [address] Dr. Julisa Lowe MCH (RBC) [Entitic mass] 20.9 pg Critically low 26.7-34.0 [facility] Comment on above: Performed By: #### S EDR #### [facility] [address] [place] [address] Dr. Julisa Lowe MCHC (RBC) [Mass/Vol] 27.6 g/dL Critically low 29.9-35.2 [facility] Comment on above: Performed By: #### S EDR #### [facility] [address] [place] [address] Dr. Julisa Lowe MCV (RBC) [Entitic vol] 75.8 fL Critically low 81.0-99.0 [facility] Comment on above: Performed By: #### S EDR #### [facility] [address] [place] [address] Dr. Julisa Lowe MONO # 0.7 103/ul Normal 0.3-0.8 [facility] Comment on above: Performed By: #### S EDR #### [facility] [address] [place] [address] Dr. Julisa Lowe Monocytes/100 WBC (Bld) 5.1 % Normal 1.7-12.0 [facility] Comment on above: Performed By: #### S EDR #### [facility] [address] [address] [address] Julisa Lowe NEUT # 9.3 103/ul Critically high 1.4-6.5 [facility] Comment on above: Performed By: #### S EDR #### [facility] [address] [address] [address] Julisa Lowe Neutrophils/100 WBC (Bld) 69.5 % Normal 43.0-75.0 [facility] Comment on above: Performed By: #### S EDR #### [facility] [address] [place] [address] Dr. Julisa Lowe Platelet mean volume (Bld) [Entitic vol] 8.2 fL Critically low 9.5-13.5 [facility] Comment on above: Performed By: #### S EDR #### [facility] [address] [address] [address] Julisa Lowe PLT 303 103/ul Normal 150-450 [facility] Comment on above: Performed By: #### S EDR #### [facility] [address] [place] [address] Dr. Julisa Lowe RBC 4.83 106/ul Normal 4.20-5.40 [facility] Comment on above: Performed By: #### S EDR #### [facility] [address] [place] [address] Dr. Julisa Lowe WBC 13.4 103/ul Critically high 4.0-11.0 [facility] Comment on above: Performed By: #### S EDR #### [facility] [address] [place] [address] Dr. Julisa Lowe GLYCOHEMOGLOBIN A1Con 2020 ADA RECOMMENDATION ADA THERAPEUTIC TARGET 6.0 - 7.0 ACTION SUGGESTED > 7.0 Normal [facility] Comment on above: Performed By: #### A 1C #### [facility] [address] [place] [address] Dr. Julisa Lowe Glucose [Mass/Vol] 151 mg/dL Normal [facility] Comment on above: Performed By: #### A 1C #### [facility] [address] [address] [address] Julisa Lowe HbA1c (Bld) [Mass fraction] 6.9 % Critically high <=6.0 [facility] Comment on above: Performed By: #### A 1C #### [facility] [address] [address] [address] Julisa Lowe LIPID PROFILEon 09-10-2021 CHOL-HDL RATIO NORM SEE BELOW Normal [facility] Comment on above: Result Comment: 3.3 - 4.4 LOW RISK 4.4 - 7.1 AVERAGE RISK 7.1 - 11.0 MODERATE RISK >11.0 HIGH RISK Performed By: #### A 1C #### [facility] [address] [place] [address] Dr. Julisa Lowe Cholesterol [Mass/Vol] 121 mg/dL Normal <=200 [facility] Comment on above: Performed By: #### A 1C #### [facility] [address] [address] [address] Julisa Lowe Cholesterol in HDL [Mass/Vol] 55 mg/dL Normal [facility] Comment on above: Performed By: #### A 1C #### [facility] [address] [place] [address] Dr. Julisa Lowe Cholesterol in LDL [Mass/Vol] 46.8 mg/dL Normal [facility] Comment on above: Performed By: #### A 1C #### [facility] [address] [place] [address] Dr. Julisa Lowe Cholesterol.total/Chol esterol in HDL [Mass ratio] 2.2 {ratio} Normal [facility] Comment on above: Performed By: #### A 1C #### [facility] [address] [place] [address] Dr. Julisa Lowe HDL NORMAL > or = 60 mg/dl - LO W CARDIOVASCULAR RISK <40 mg/dl - HIGH CARDIOVASCULAR RISK Normal [facility] Comment on above: Performed By: #### A 1C #### [facility] [address] [address] [address] Julisa Lowe LDL CALC NORMAL SEE BELOW Normal [facility] Comment on above: Result Comment: <100 mg/dl OPTIMAL 100 - 129 mg/dl NEAR OR ABOVE OPTIMAL 130 - 159 mg/dl BORDERLINE HIGH 160 - 189 mg/dl HIGH >190 mg/dl VERY HIGH Performed By: #### A 1C #### [facility] [address] [address] [address] Julisa Lowe Triglyceride [Mass/Vol] 96 mg/dL Normal <=150 [facility] Comment on above: Performed By: #### A 1C #### [facility] [address] [address] [address] Julisa Lowe VLDL CALC 19.2 mg/dL Normal [facility] Comment on above: Performed By: #### A 1C #### [facility] [address] [place] [address] Dr. Julisa Lowe MICROALBUMIN, RAND URon 08-14 mALB 33.4 mg/L Critically high <=30.0 [facility] Comment on above: Performed By: #### S EDR #### [facility] [address] [address] [address] Julisa Lowe PROF 14(COMP METB)on 021 Albumin [Mass/Vol] 3.4 g/dL Critically low 3.5-5.0 [facility] Comment on above: Performed By: #### A 1C #### [facility] [address] [place] [address] Dr. Julisa Lowe Albumin/Globulin [Mass ratio] 1.3 {ratio} Normal [facility] Comment on above: Performed By: #### A 1C #### [facility] [address] [address] [address] Julisa Lowe ALP [Catalytic activity/Vol] 74 U/L Normal 38-126 [facility] Comment on above: Performed By: #### A 1C #### [facility] [address] [address] [address] Julisa Lowe ALT [Catalytic activity/Vol] 11 U/L Normal 9-52 [facility] Comment on above: Performed By: #### A 1C #### [facility] [address] [address] [address] Julisa Lowe Anion gap [Moles/Vol] 18.2 mmol/L Normal Th e [facility] Comment on above: Performed By: #### A 1C #### [facility] [address] [address] [address] Julisa Lowe AST [Catalytic activity/Vol] 12 U/L Critically low 14-36 [facility] Comment on above: Performed By: #### A 1C #### [facility] [address] [address] [address] Julisa Lowe Bilirubin [Mass/Vol] 0.3 mg/dL Normal 0.2-1.3 [facility] Comment on above: Performed By: #### A 1C #### [facility] [address] [address] [address] Julisa Lowe Calcium [Mass/Vol] 9.3 mg/dL Normal 8.4-10.2 [facility] Comment on above: Performed By: #### A 1C #### [facility] [address] [address] [address] Julisa Lowe Chloride [Moles/Vol] 105 mmol/L Normal 98-107 [facility] Comment on above: Performed By: #### A 1C #### [facility] [address] [address] [address] Julisa Lowe Creatinine [Mass/Vol] 0.62 mg/dL Normal 0.52-1.04 [facility] Comment on above: Performed By: #### A 1C #### [facility] [address] [address] [address] Julisa Lowe EGFR-AF LIBERIAN >60 Normal >=60 The [facility] Comment on above: Performed By: #### A 1C #### [facility] [address] [address] [address] Julisa Lowe EGFR-NON AF LIBERIAN >60 Normal >=60 [facility] Comment on above: Performed By: #### A 1C #### [facility] [address] [address] [address] Julisa Lowe Globulin (S) [Mass/Vol] 2.7 g/dL Normal [facility] Comment on above: Performed By: #### A 1C #### [facility] [address] [place] [address] Dr. Julisa Lowe Glucose [Mass/Vol] 134 mg/dL Critically high 74-106 [facility] Comment on above: Performed By: #### A 1C #### [facility] [address] [place] [address] Dr. Julisa Lowe Potassium [Moles/Vol] 4.3 mmol/L Normal 3.4-5.0 [facility] Comment on above: Performed By: #### A 1C #### [facility] [address] [place] [address] Dr. Julisa Lowe Protein [Mass/Vol] 6.1 g/dL Normal 6.1-8.2 [facility] Comment on above: Performed By: #### A 1C #### [facility] [address] [place] [address] Dr. Julisa Lowe Sodium [Moles/Vol] 142 mmol/L Normal 137-145 [facility] Comment on above: Performed By: #### A 1C #### [facility] [address] [place] [address] Dr. Julisa Lowe Urea nitrogen [Mass/Vol] 23.0 mg/dL Critically high 7.0-17.0 [facility] Comment on above: Performed By: #### A 1C #### [facility] [address] [place] [address] Dr. Julisa Lowe Urea nitrogen/Creatinine [Mass ratio] 37.1 mg/mg Normal [facility] Comment on above: Performed By: #### A 1C #### [facility] [address] [place] [address] Dr. Julisa Lowe Cov[facility]-19 [facility]on 07-16 SARS-CoV-2 (COVID-19) RNA CHALINO+probe Ql (Unsp spec) Not detected Normal NOT DETECTED [facility] Comment on above: Result Comment: This test is not yet approved or cleared by the [place] FDA. When there are no FDA-approved or cleared tests available, and other criteria are met, FDA can make tests available under an emergency access mechanism called an Emergency Use Authorization (EUA). The EUA for this test is supported by the [employer] Manager of Health and Human Service's (HHS's) declaration [...] SARS-CoV-2. Performed By: #### C [facility] #### [facility] [address] [place] [address] Dr. Julisa Lowe Vital Signs Date Time Vital Sign Value Performing Clinician Facility 11-02-2024 08:50-0500 Body height 154.9 cm Tj Herndonpatrick CROOK OPERATOR Work Phone: [facility] 11-02-2024 08:50-0500 Body mass index (BMI) [Ratio] 24.94 kg/m2 Tj Ramirez CROOK OPERATOR Work Phone: [facility] 11-02-2024 08:50-0500 Body temperature 97.59 [degF] Tj Ramirez CROOK OPERATOR Work Phone: [facility] 11-02-2024 08:50-0500 Body weight 59.88 kg Tj Ramirez CROOK OPERATOR Work Phone: [facility] 11-02-2024 08:50-0500 Diastolic blood pressure 66 mm[Hg] Tj Ramirez CROOK OPERATOR Work Phone: [facility] 11-02-2024 08:50-0500 Heart rate 81 /min Tj Ramirez CROOK OPERATOR Work Phone: [facility] 11-02-2024 08:50-0500 Respiratory rate 18 /min Tj Herndonpatrick CROOK OPERATOR Work Phone: [facility] 11-02-2024 08:50-0500 SaO2% (BldA) [Mass fraction] 99 % Tj Nnueszpatrick CROOK OPERATOR Work Phone: [facility] 11-02-2024 08:50-0500 Systolic blood pressure 102 mm[Hg] Tj Herndonpatrick CROOK OPERATOR Work Phone: [facility] 10-18-2024 10:34-0500 Body height 154.9 cm Christopher Garrett MD Work Phone: [facility] 10-18-2024 10:34-0500 Body mass index (BMI) [Ratio] 25.51 kg/m2 Christopher Garrett MD Work Phone: [facility] 10-18-2024 10:34-0500 Body weight 61.24 kg Christopher Garrett MD Work Phone: [facility] 10-18-2024 10:34-0500 Diastolic blood pressure 60 mm[Hg] Christopher Garrett MD Work Phone: [facility] 10-18-2024 10:34-0500 Heart rate 84 /min Christopher Garrett MD Work Phone: [facility] 10-18-2024 10:34-0500 Respiratory rate 18 /min Christopher Garrett MD Work Phone: [facility] 10-18-2024 10:34-0500 SaO2% (BldA) [Mass fraction] 97 % Christopher Garrett MD Work Phone: [facility] 10-18-2024 10:34-0500 Systolic blood pressure 90 mm[Hg] Christopher Garrett MD Work Phone: [facility] 08-15-2024 09:45-0500 Body height 154.9 cm Christopher Garrett MD Work Phone: [facility] 08-15-2024 09:45-0500 Body mass index (BMI) [Ratio] 24.75 kg/m2 Christopher Garrett MD Work Phone: [facility] 08-15-2024 09:45-0500 Body weight 59.42 kg Christopher Garrett MD Work Phone: [facility] 08-15-2024 09:45-0500 Diastolic blood pressure 56 mm[Hg] Christopher Garrett MD Work Phone: [facility] 08-15-2024 09:45-0500 Heart rate 87 /min Christopher Garrett MD Work Phone: [facility] 08-15-2024 09:45-0500 Respiratory rate 18 /min Christopher Garrett MD Work Phone: [facility] 08-15-2024 09:45-0500 Systolic blood pressure 96 mm[Hg] Christopher Garrett MD Work Phone: [facility] 08-01-2024 09:58-0500 Body height 154.9 cm Tj Ramirez CROOK OPERATOR Work Phone: [facility] 08-01-2024 09:58-0500 Body mass index (BMI) [Ratio] 24.83 kg/m2 Tj Ramirez CROOK OPERATOR Work Phone: [facility] 08-01-2024 09:58-0500 Body temperature 96.69 [degF] Tj Ramirez CROOK OPERATOR Work Phone: [facility] 08-01-2024 09:58-0500 Body weight 59.6 kg Tj Ramirez CROOK OPERATOR Work Phone: [facility] 08-01-2024 09:58-0500 Diastolic blood pressure 80 mm[Hg] Tj Ramirez CROOK OPERATOR Work Phone: [facility] 08-01-2024 09:58-0500 Heart rate 85 /min Tj Ramirez CROOK OPERATOR Work Phone: [facility] 08-01-2024 09:58-0500 Respiratory rate 18 /min Tj Ramirez CROOK OPERATOR Work Phone: [facility] 08-01-2024 09:58-0500 Systolic blood pressure 132 mm[Hg] Tj Ramirez CROOK OPERATOR Work Phone: [facility] 05-09-2024 09:03-0400 Diastolic blood pressure 72 mm[Hg] Shante Orzech [facility] 05-09-2024 09:03-0400 Heart rate 90 /min Shante Orzech [facility] 05-09-2024 09:03-0400 Systolic blood pressure 109 mm[Hg] Shante Orzech [facility] 05-03-2024 10:20-0400 Body height 154.9 cm Tj Ramirez CROOK OPERATOR Work Phone: [facility] 05-03-2024 10:20-0400 Body mass index (BMI) [Ratio] 26.64 kg/m2 Tj Ramirez CROOK OPERATOR Work Phone: [facility] 05-03-2024 10:20-0400 Body temperature 97 [degF] Tj Ramirez CROOK OPERATOR Work Phone: [facility] 05-03-2024 10:20-0400 Body weight 63.96 kg Tj Ramirez CROOK OPERATOR Work Phone: [facility] 05-03-2024 10:20-0400 Diastolic blood pressure 68 mm[Hg] Tj Ramirez CROOK OPERATOR Work Phone: [facility] 05-03-2024 10:20-0400 Heart rate 82 /min Tj Ramirez CROOK OPERATOR Work Phone: [facility] Comment on above: 100% O2 05-03-2024 10:20-0400 Systolic blood pressure 110 mm[Hg] Tj Ashley CROOK OPERATOR Work Phone: [facility] 02-29-2024 10:35-0400 Blood Pressure Location Shante Orzech [facility] 02-29-2024 10:35-0400 Diastolic blood pressure 78 mm[Hg] Shante Orzech [facility] 02-29-2024 10:35-0400 Heart rate 68 /min Shante Orzech [facility] 02-29-2024 10:35-0400 Respiratory rate 16 /min Shante Orzech [facility] 02-29-2024 10:35-0400 Systolic blood pressure 132 mm[Hg] Shante Orzech [facility] 05-12-2022 15:00-0400 Diastolic blood pressure 49 mm[Hg] Chair [place] Work Phone: [facility] 05-12-2022 15:00-0400 Heart rate 98 /min Chair [place] Work Phone: [facility] 05-12-2022 15:00-0400 SaO2% (BldA) [Mass fraction] 95 % Chair [place] Work Phone: [facility] 05-12-2022 15:00-0400 Systolic blood pressure 137 mm[Hg] Chair [place] Work Phone: [facility] 05-12-2022 13:30-0400 Body temperature 98.6 [degF] Chair [place] Work Phone: [facility] 05-12-2022 10:15-0400 Diastolic blood pressure 87 mm[Hg] MD Hood Patel Work Phone: [facility] 05-12-2022 10:15-0400 Heart rate 82 /min MD Hood Patel Work Phone: [facility] 05-12-2022 10:15-0400 Respiratory rate 16 /min MD Hood Patel Work Phone: [facility] 05-12-2022 10:15-0400 SaO2% (BldA) [Mass fraction] 100 % MD Hood Patel Work Phone: [facility] 05-12-2022 10:15-0400 Systolic blood pressure 149 mm[Hg] MD Hood Patel Work Phone: [facility] 05-12-2022 07:54-0400 Body height 154.94 cm MD Hood Patel Work Phone: [facility] 05-12-2022 07:54-0400 Body weight 53.52 kg MD Hood Patel Work Phone: [facility] 05-06-2022 14:29-0400 Body temperature 99 [degF] Chair [place] Work Phone: [facility] 05-06-2022 14:29-0400 Diastolic blood pressure 51 mm[Hg] Chair [place] Work Phone: [facility] 05-06-2022 14:29-0400 Heart rate 93 /min Chair [place] Work Phone: [facility] 05-06-2022 14:29-0400 Respiratory rate 16 /min Chair [place] Work Phone: [facility] 05-06-2022 14:29-0400 SaO2% (BldA) [Mass fraction] 98 % Chair [place] Work Phone: [facility] 05-06-2022 14:29-0400 Systolic blood pressure 129 mm[Hg] Chair [place] Work Phone: [facility] 04-28-2022 10:47-0400 Body temperature 98.91 [degF] Chair [place] Work Phone: [facility] 04-28-2022 10:47-0400 Diastolic blood pressure 64 mm[Hg] Chair [place] Work Phone: [facility] 04-28-2022 10:47-0400 Heart rate 88 /min Chair [place] Work Phone: [facility] 04-28-2022 10:47-0400 Respiratory rate 18 /min Chair [place] Work Phone: [facility] 04-28-2022 10:47-0400 SaO2% (BldA) [Mass fraction] 98 % Chair [place] Work Phone: [facility] 04-28-2022 10:47-0400 Systolic blood pressure 122 mm[Hg] Chair [place] Work Phone: [facility] 04-22-2022 14:02-0400 Body temperature 99 [degF] Chair [place] Work Phone: [facility] 04-22-2022 14:02-0400 Diastolic blood pressure 56 mm[Hg] Chair [place] Work Phone: [facility] 04-22-2022 14:02-0400 Heart rate 95 /min Chair [place] Work Phone: [facility] 04-22-2022 14:02-0400 Respiratory rate 18 /min Chair [place] Work Phone: [facility] 04-22-2022 14:02-0400 SaO2% (BldA) [Mass fraction] 96 % Chair [place] Work Phone: [facility] 04-22-2022 14:02-0400 Systolic blood pressure 123 mm[Hg] Chair [place] Work Phone: [facility] 10-14-2021 14:15-0500 Body height 154.94 cm Lawanda Olexa Other [employer] Other 10-14-2021 14:15-0500 Body mass index (BMI) [Ratio] 22.26 kg/m2 Lawanda Alvarez Other [employer] Other 10-14-2021 14:15-0500 Body weight 53.43 kg Lawanda Alvarez Other [employer] Other Encounters Encounter Date Encounter Type Care [...] 11-02-2024 End: 11-02-2024 Bamboo flowsheet Tj Ramirez CROOK OPERATOR Work Phone: [facility] Start: 11-02-2024 End: 11-02-2024 Bamboo flowsheet Tj Ramirez CROOK OPERATOR Work Phone: [facility] Start: 11-02-2024 End: 11-02-2024 Office outpatient visit 15 minutes Tj Ramirez CROOK OPERATOR Work Phone: [facility] Comment on above: Mixed hyperlipidemia (CMS/HCC) (Primary Dx); Primary hypertension (CMS/HCC); Type 2 diabetes mellitus with stage 3a chronic kidney disease, with long-term current use of insulin (HCC) (CMS/HCC) Start: 11-02-2024 End: 11-02-2024 ambulatory TJ RAMIREZ Not Available Start: 10-18-2024 End: 10-18-2024 Bamboo flowsheet Christopher Garrett MD Work Phone: [facility] Start: 10-18-2024 End: 10-18-2024 Bamboo flowsken Garrett MD Work Phone: [facility] Start: 10-18-2024 End: 10-18-2024 Office outpatient visit 25 minutes Christopher Garrett MD Work Phone: [facility] Comment on above: Diabetic autonomic [...] 08-15-2024 Bamboo flowsken Garrett MD Work Phone: [facility] Start: 08-15-2024 End: 08-15-2024 Bamtracyo danae Garrett MD Work Phone: [facility] Start: 08-15-2024 End: 08-15-2024 Office outpatient new 45 minutes Christopher Garrtet MD Work Phone: [facility] Comment on above: Type 2 [...] Not Available Start: 08-04-2024 End: 08-04-2024 ambulatory [facility] Start: 08-01-2024 End: 08-01-2024 Bamboo flowsheet Tj Ramirez CROOK OPERATOR Work Phone: [facility] Start: 08-01-2024 End: 08-01-2024 Bamboo flowsheet Tj Ramirez CROOK OPERATOR Work Phone: [facility] Start: 08-01-2024 End: 08-01-2024 Office outpatient visit 15 minutes Tj Ramirez CROOK OPERATOR Work Phone: [facility] Comment on [...] 07-27-2024 End: 07-27-2024 Orders Only Tj Ramirez CROOK OPERATOR Work Phone: [facility] Comment on above: Type 2 diabetes rosemary itus with stage 3a chronic kidney disease, with long-term current use of insulin (HCC) (CMS/HCC) (Primary Dx) Start: 07-17-2024 End: 07-17-2024 Telephone encounter Alondra James CROOK OPERATOR Work Phone: [facility] Start: 07-13-2024 End: 07-13-2024 ambulatory Shante Shukla Facility:[facility] Start: 07-13-2024 End: 07-13-2024 Patient encounter procedure Shante X Oreileen [facility] Start: 05-23-2024 End: 06-05-2024 Clinisync Result [...] 05-09-2024 Lab Drop off Shante X Orzech [facility] Start: 05-09-2024 End: 05-09-2024 ambulatory Shante X Orzech Facility:[facility] Start: 05-09-2024 End: 05-09-2024 Patient encounter procedure Shante X Orzech [facility] Start: 05-08-2024 End: 05-08-2024 Clinisync Result Encounter Tj Ramirez CROOK OPERATOR Work Phone: [facility] Unsolicited Start: 05-08-2024 End: 05-08-2024 Clinisync Result Encounter Tj Ramirez CROOK OPERATOR Work Phone: [facility] Unsolicited Start: 05-08-2024 End: 05-09-2024 ambulatory [facility] Start: 05-03-2024 End: 05-03-2024 Bamboo flowsheet Tj Ramirez CROOK OPERATOR Work Phone: [facility] Start: 05-03-2024 End: 05-03-2024 Bamboo flowsheet Tj Ramirez CROOK OPERATOR Work Phone: [facility] Start: 05-03-2024 End: 05-03-2024 Office outpatient visit 25 minutes Tj Ramirez CROOK OPERATOR Work Phone: [facility] Comment on above: Primary [...] Not Available Start: 03-14-2024 End: 03-14-2024 [facility] Start: 02-29-2024 End: 02-29-2024 ambulatory Shante X Orzech Facility:[facility] Start: 02-29-2024 End: 02-29-2024 Lab Drop off Shante X Orzech [facility] Start: 02-29-2024 End: 02-29-2024 ambulatory Shante X Orzech Facility:[facility] Start: 02-29-2024 End: 02-29-2024 Patient encounter procedure Shante X Orzech [facility] Start: 01-04-2024 End: 01-04-2024 ambulatory SHAIKH CLARE Not Available Start: 08-17-2023 Patient encounter procedure Tj Ramirez CROOK OPERATOR Work Phone: [facility] Start: 06-22-2022 End: 06-23-2022 ambulatory SHAIKH Ivette SPARKS Facility: Start: 05-12-2022 End: 05-12-2022 ambulatory Chair Ty Anthony Work Phone: Hematology/Oncology Comment on above: Iron deficiency anem ia due to chronic blood loss (Primary Dx) Start: 05-07-2022 End: 05-07-2022 Patient encounter procedure MD Hood Patel Work Phone: [facility] Start: 05-06-2022 End: 05-06-2022 ambulatory Chair [...] 04-15-2022 End: 04-15-2022 ambulatory Hood Patel Other [employer] Other Start: 04-15-2022 Telephone encounter Hood Obrien ck [facility] Start: 04-14-2022 Telephone encounter Christy jefferson RN Work Phone: Hematology/Oncology Comment on above: Critical Results (Gl ucose) Start: 04-14-2022 End: 04-14-2022 ambulatory Chair [address] [place] Work Phone: Hematology/Oncology Comment on above: Iron deficiency anem ia due to chronic blood loss (Primary Dx); Controlled type 2 diabetes mellitus without complication, unspecified whether penitentiary insulin use (HCC) Start: 04-08-2022 End: 04-09-2022 [...] 10-14-2021 End: 10-14-2021 ambulatory Lawanda Alvarez Other [employer] Other Start: 10-14-2021 Office outpatient ne w 30 minutes Lawanda Alvarez [facility] Start: 09-10-2021 End: 09-11-2021 ambulatory SHAIKH Ivette CLARE Facility:[facility] Start: 08-16-2021 Encounter for preprocedural laboratory examination DR LJ BRENNAN [facility] Start: 08-13-2021 End: 08-13-2021 ambulatory [...] Christopher Garrett MD Work Phone: Start: 10-14-2024 [facility] MICROALB CREAT R ATIO RANDOM Generic External Data Provider Start: 08-15-2024 Gluc bld gluc mntr d ev cleared fda spec home use Christopher Garrett MD Work Phone: Start: 08-01-2024 Hemoglobin glycosylated a1c Tj Nuneszpatrick CROOK OPERATOR Work Phone: Start: 05-23-2024 [employer] Generic External Data Provider Start: 05-17-2024 PROTEIN C-FUNCTIONAL Ge neric External Data Provider Start: 05-17-2024 PROTEIN S-ANTIGEN Gener ic External Data Provider Start: 05-17-2024 PROTEIN S-FUNCTIONAL Ge neric External Data Provider Start: 05-08-2024 ALL CBC WITH AUTO DIFF Tj Ashley CROOK OPERATOR Work Phone: Start: 03-08-2024 Mammography Tj Valencia alistair CROOK OPERATOR Work Phone: Start: 04-14-2022 Gluc bld gluc mntr d ev cleared fda spec home use [facility] Provider Start: 09-13-2020 End: 09-13-2020 Colonoscopy Shante Orzech Start: 04-22-2017 Cystourethroscopy [facility] dilation of urethral stricture Shante Orzech Comment on above: 01/09/2019 Back structure, excl uding neck (body structure) Shante Orzech Cataract (disorder) Shante O rzech Cholecystectomy Shante Orzec h Hysterectomy Shante Orzech Tonsillectomy Shante Orzech Plan of Treatment Date Care Activity Detail Author Start: 09-13-2030 Screening for malignant neoplasm of colon [facility] Start: 10-16-2025 Urine screening for protein Diabetes: Urine Protein Screening [facility] Start: 05-08-2025 Urine screening for protein Diabetes: Urine Protein Screening [facility] Start: 04-14-2025 DIABETES SCREEN DIABETES SCREEN [facility] Start: 03-08-2025 Screening for malignant neoplasm of breast Mammogram [facility] Start: 02-21-2025 End: 02-21-2025 Patient encounter procedure 02/21/2025 10:50 AM EDT Office Visit [facility] [address] [place] [address] Christopher Garrett MD [address] [place] [address] [facility] Start: 02-13-2025 Hemoglobin A1c measurement Diabetes: Hemoglobin A1C [facility] Start: 01-30-2025 End: 01-30-2025 Patient encounter procedure [facility] Start: 01-29-2025 Hemoglobin A1c measurement Diabetes: Hemoglobin A1C [facility] Start: 11-16-2024 End: 11-16-2024 Patient encounter procedure 11/16/2024 10:00 AM EST Office Visit [facility] [address] [place] [address] Alondra James NP [address] [place] [address] [facility] Start: 11-02-2024 End: 11-02-2024 Patient encounter procedure [facility] Comment on above: Arrived Start: 10-18-2024 End: 10-18-2024 Patient encounter procedure [facility] Comment on above: Diabetic autonomic neuropathy associated with type 2 diabetes mellitus ([facility]) Start: 09-13-2024 Glaucoma screening Diabetes: Retinopathy Screening [facility] Start: 08-17-2024 Medicare Annual Wellness (AWV) Medicare Annual Wellness (AWV) [facility] Start: 08-15-2024 End: 08-15-2025 25-hydroxyvitamin D3 [Mass/volume] in Serum or Plasma Vitamin D 25 hydroxy Total Lab Routine Type 2 diabetes mellitus with diabetic autonomic (poly)neuropathy ([facility]) Expected: 08/15/2024 (Approximate), Expires: 08/15/2025 [facility] Comment on above: Expected: 08/15/2024 (Approximate), Expi res: 08/15/2025 Start: 08-15-2024 End: 08-15-2025 C-peptide C-peptide Lab Routine Type 2 diabetes mellitus with diabetic autonomic (poly)neuropathy (CMS/HCC) Expected: 08/15/2024 (Approximate), Expires: 08/15/2025 [facility] Work Phone: Comment on above: Expected: 08/15/2024 (Approximate), Expi res: 08/15/2025 Start: 08-15-2024 End: 08-15-2025 Lipid 1996 panel - Serum or Plasma Lipid panel Lab Routine Type 2 diabetes mellitus with diabetic autonomic (poly)neuropathy (CMS/HCC) Expected: 08/15/2024 (Approximate), Expires: 08/15/2025 [facility] Comment on above: Expected: 08/15/2024 (Approximate), Expi res: 08/15/2025 Start: 08-15-2024 End: 08-15-2025 Microalbumin/Creatinine panel in random Urine Microalbumin / creatinine urine ratio Lab Routine Type 2 diabetes mellitus with diabetic autonomic (poly)neuropathy (CMS/HCC) Expected: 08/15/2024 (Approximate), Expires: 08/15/2025 [facility] Comment on above: Expected: 08/15/2024 (Approximate), Expi res: 08/15/2025 Start: 08-15-2024 End: 08-15-2025 Renal function panel Renal function panel Lab Routine Type 2 diabetes mellitus with diabetic autonomic (poly)neuropathy (CMS/HCC) Expected: 08/15/2024 (Approximate), Expires: 08/15/2025 [facility] Comment on above: Expected: 08/15/2024 (Approximate), Expi res: 08/15/2025 Start: 08-15-2024 End: 08-15-2024 Patient encounter procedure [facility] Comment on above: Type 2 diabetes mellitus with hyperglyce loree, with long-term current use of insulin ([facility]/HCC); Type 2 diabetes mellitus with diabetic autonomic (poly)neuropathy ([facility]/HCC) Start: 08-12-2024 Urine screening for protein Diabetes: Urine Protein Screening [facility] Start: 08-01-2024 End: 08-01-2024 Patient encounter procedure [facility] Comment on above: Arrived Start: 07-27-2024 End: 07-27-2025 Hemoglobin A1c/Hemoglobin.total in Blood Hemoglobin A1c Lab Routine Type 2 diabetes mellitus with stage 3a chronic kidney disease, with long-term current use of insulin (HCC) ([facility]) Expected: 07/27/2024 (Approximate), Expires: 07/27/2025 [facility] Work Phone: Comment on above: Expected: 07/27/2024 (Approximate), Expi res: 07/27/2025 Start: 07-20-2024 End: 07-20-2024 Patient encounter procedure 07/20/2024 10:20 AM EST Office Visit [facility] [address] [phone] Ammon Khanna DPM [address] [address] [facility] Start: 06-15-2024 Hemoglobin A1c measurement Diabetes: Hemoglobin A1C [facility] Start: 06-01-2024 End: 06-01-2024 Patient encounter procedure 06/01/2024 9:20 AM EDT Office Visit [facility] [address] [address] Ammon Khanna DPM [address] [address] [facility] Start: 05-14-2024 Influenza vaccination Influenza Vaccine (#1) [facility] Start: 05-03-2024 End: 05-03-2025 CBC W Auto Differential panel - Blood CBC and differential Lab Routine Primary hypertension ([facility]) PAF (paroxysmal atrial fibrillation) ([facility]) Type 2 diabetes mellitus with stage 3a chronic kidney disease, with long-term current use of insulin (HCC) ([facility]) Expected: 05/03/2024 (Approximate), Expires: 05/03/2025 [facility] Comment on above: Expected: 05/03/2024 (Approximate), Expi res: 05/03/2025 Start: 05-03-2024 End: 05-03-2025 Comprehensive metabolic 2000 panel - Serum or Plasma Comprehensive metabolic panel Lab Routine Primary hypertension ([facility]/HCC) PAF (paroxysmal atrial fibrillation) ([facility]) Stage 3a chronic kidney disease (HCC) ([facility]) Type 2 diabetes mellitus with stage 3a chronic kidney disease, with long-term current use of insulin (HCC) ([facility]CC) Expected: 05/03/2024 (Approximate), Expires: 05/03/2025 [facility] Comment on above: Expected: 05/03/2024 (Approximate), Expi res: 05/03/2025 Start: 05-03-2024 End: 05-03-2025 Hemoglobin A1c/Hemoglobin.total in Blood Hemoglobin A1c Lab Routine Type 2 diabetes mellitus with stage 3a chronic kidney disease, with long-term current use of insulin (HCC) ([facility]) Expected: 05/03/2024 (Approximate), Expires: 05/03/2025 [facility] Comment on above: Expected: 05/03/2024 (Approximate), Expi res: 05/03/2025 Start: 05-03-2024 End: 05-03-2025 Lipid 1996 panel - Serum or Plasma Lipid panel Lab Routine Mixed hyperlipidemia ([facility]) Expected: 05/03/2024 (Approximate), Expires: 05/03/2025 [facility] Comment on above: Expected: 05/03/2024 (Approximate), Expi res: 05/03/2025 Start: 05-03-2024 End: 05-03-2025 Microalbumin/Creatinine panel in random Urine Microalbumin / creatinine urine ratio Lab Routine Primary hypertension ([facility]) Stage 3a chronic kidney disease (HCC) ([facility]) Type 2 diabetes mellitus with stage 3a chronic kidney disease, with long-term current use of insulin (HCC) ([facility]) Expected: 05/03/2024 (Approximate), Expires: 05/03/2025 [facility] Work Phone: Comment on above: Expected: 05/03/2024 (Approximate), Expi res: 05/03/2025 Start: 05-03-2024 End: 05-03-2024 Patient encounter procedure 05/03/2024 10:30 AM EDT Office Visit [facility] [address] [place] [address] Tj Ramirez NP [address] [place] [address] Primary hypertension (CMS/HCC) (Primary Dx); PAF (paroxysmal atrial fibrillation) (CMS/HCC); Stage 3a chronic kidney disease (HCC) (CMS/HCC); Type 2 diabetes mellitus with stage 3a chronic kidney disease, with long-term current use of insulin (HCC) (CMS/HCC); Mixed hyperlipidemia (CMS/HCC) [facility] Comment on above: Primary hypertension (CMS/HCC) (Primary Dx); PAF (paroxysmal atrial fibrillation) (CMS/HCC); Stage 3a chronic kidney disease (HCC) (CMS/HCC); Type 2 diabetes mellitus with stage 3a chronic kidney disease, with long-term current use of insulin (HCC) (CMS/HCC); Mixed hyperlipidemia (CMS/HCC) Start: 05-14-2022 Influenza vaccination INFLUENZA (#1) [facility] Start: 05-12-2022 [facility] Work Phone: Start: 05-12-2022 Esophagogastroduodenoscopy DH EGD (Not Applicable) [facility] Start: 05-12-2022 End: 05-12-2022 Admission to same day surgery center Iron deficiency anemia [facility] Start: 09-13-2021 ADVANCE DIRECTIVE DISCUSSION ADVANCE DIRECTIVE DISCUSSION [facility] Start: 09-20-2019 Pneumococcal Vaccine: 65+ Years (2 of 2 - PPSV23 or PCV20) Pneumococcal Vaccine: 65+ Years (2 of 2 - PPSV23 or PCV20) [facility] Start: 11-14-2015 BONE DENSITY BONE DENSITY [facility] Start: 11-14-1995 COLOGUARD (FIT-DNA) COLOGUARD (FIT-DNA) [facility] Start: 11-14-1995 Colonoscopy COLONOSCOPY [facility] Start: 11-14-1995 COLORECTAL CANCER SCREENING COLORECTAL CANCER SCREENING [facility] Start: 11-14-[address] COLONOGRAPHY [facility] Start: 11-14-1995 FECAL OCCULT BLOOD FECAL OCCULT BLOOD [facility] Start: 11-14-1995 LIPID SCREEN LIPID SCREEN [facility] Start: 11-14-1995 SIGMOIDOSCOPY SIGMOIDOSCOPY [facility] Start: 1990 Mammography MAMMOGRAM [facility] Start: 1969 SHINGRIX VACCINE (1 of 2) SHINGRIX VACCINE (1 of 2) [facility] Start: 1969 Urine microalbumin profile DTAP,TDAP,TD (1 - Tdap) [facility] Start: 1968 HEPATITIS C SCREENING HEPATITIS C SCREENING [facility] Start: 1962 Adult depression screening assessment DEPRESSION SCREENING [facility] Start: 1956 PNEUMOCOCCAL: 65+ (1 - PCV) PNEUMOCOCCAL: 65+ (1 - PCV) [facility] Start: 11-14-1955 COVID-19 VACCINE (#1) COVID-19 VACCINE (#1) [facility] Start: 05-16-1951 COVID-19 VACCINE (#1) COVID-19 VACCINE (#1) [facility] Start: 1950 Screening for malignant neoplasm of colon [facility] BLOOD CULTURE 1 BLOOD CULTURE 1 Lab Routine 11/07/2024 12:10 AM EST [facility] BLOOD CULTURE 2 BLOOD CULTURE 2 Lab Routine 11/07/2024 12:20 AM EST [facility] Glucose [Mass/volume ] in Serum or Plasma GLUCOSE, BLOOD (POC) Lab Routine Iron deficiency anemia due to chronic blood loss Controlled type 2 diabetes mellitus without complication, 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 (HCC) Ordered: 04/14/2022 [facility] Work Phone: Comment on above: Ordered: 04/14/2022 Patient Education Hiatal Hernia (DC) [facility] Work Phone: [facility] Immunizations Immunization Date Immunization Notes Care Provider Darío watts 08-01-2024 influenza, seasonal, injectable, preservative free Tj Ramirez CROOK OPERATOR Work Phone: [facility] 11-11-2021 influenza virus vaccine, unspecified formulation Tj Ramirez CROOK OPERATOR Work Phone: [facility] 11-11-2021 Influenza, High-dose Seasonal, Quadrivalent, Preservative Free Tj Ramirez CROOK OPERATOR Work Phone: [facility] 05-19-2021 influenza virus vaccine, unspecified formulation Tj Ramirez CROOK OPERATOR Work Phone: [facility] 05-19-2021 influenza, unspecifi ed formulation Shante Orzech [facility] 01-30-2021 SARS-CoV-2 (COVID-19 ) mRNA BNT-162b2 vax Shante Orzech [facility] Comment on above: Result Comment: 2023: [id number] 01-02-2021 SARS-CoV-2 (COVID-19 ) mRNA BNT-162c7 vax Shante Orzech [facility] 05-14-2020 influenza virus vaccine, unspecified formulation Shante Orzech [facility] 05-14-2020 Influenza, High-dose Seasonal, Quadrivalent, Preservative Free Tj Ramirez CROOK OPERATOR Work Phone: [facility] 07-26-2019 pneumococcal conjuga te vaccine, 13 valent Tj Ramirez CROOK OPERATOR Work Phone: [facility] 06-28-2019 influenza virus vaccine, unspecified formulation Shante Orzech [facility] 06-28-2019 influenza, high dose seasonal, preservative-free Tj Ramirez CROOK OPERATOR Work Phone: [facility] 08-22-2018 influenza virus vaccine, unspecified formulation Shante Orzech [facility] 08-22-2018 influenza, seasonal, injectable Tj Ramirez CROOK OPERATOR Work Phone: [facility] 06-18-2016 influenza virus vaccine, unspecified formulation Tj Ramirez CROOK OPERATOR Work Phone: [facility] 06-18-2016 influenza, unspecifi ed formulation Shante Shukla [facility] 06-20-2015 influenza virus vaccine, unspecified formulation Shante Orzeyovani [facility] 06-20-2015 influenza, injectabl e, quadrivalent, preservative free Tj Ramirez CROOK OPERATOR Work Phone: [facility] 08-27-2009 novel [id number], preservative-free, injectable Tj Ramirez CROOK OPERATOR Work Phone: [facility] Healthcare Payers Date Payer Category Payer Medicare (Managed Care) [facility] [id number] 2022 Medicaid MEDICAID [facility] MEDICAID [id number] 2022-Present [phone] [address] [place] [address] Medicaid [id number] 2021 Medicare [facility] MEDICARE [facility] DUAL COMPLETE HMO SNP [id number] 2021-Present [phone] [address] [place] [address] Medicare [id number] 2021 Medicare [id number] [id number]. [id number] 2019 Medicaid [id number]. [id number]. [id number] 1959 Medicaid [id number] 2.16.840.1.892881. 1959 Medicare [id number] 2.16.840.1.356221. 1959 Medicare [id number] 2.16.840.1.537829.19 1959 Private Health Insurance [id number] 1950 Unknown [id number] 2.16.840.1.565596.3.579.2. 593 1950 Unknown [id number] 2.16840.1.629694.3.579.2. 593 1950 Unknown [id number] 2.16.840.1.795413.3.579.2. 593 1950 Unknown [id number] 2.16.840.1.048498.3.579.2. 593 1950 Unknown [id number] 2.16.840.1.139963.3.579.2. 593 1950 Unknown [id number] 2.16.840.1.728769.3.579.2. 593 1950 Unknown [id number] 2.16.840.1.398651.3.579.2. 593 1950 Unknown [id number] 2.16.840.1.966149.3.579.2. 593 1950 Unknown [id number] 2.16.840.1.672725.3.579.2. 593 1950 Unknown [id number] 2.16.840.1.715141.3.579.2. 593 1950 Unknown [id number] 2.16.840.1.167546.3.579.2. 593 1950 Unknown [id number] 2.16.840.1.781251.3.579.2. 593 1950 Unknown [id number] 2.16.840.1.852385.3.579.2. 593 1950 Unknown [id number] 2.16.840.1.852392.3.579.2. 727 1950 Unknown [id number] 2.16.840.1.697437.3.579.2. 727 1950 Unknown [id number] 2.16.840.1.685223.3.579.2. 727 1950 Unknown [id number] 2.16.840.1.807052.3.579.2. 727 1950 Unknown [id number] 2.16.840.1.881254.3.579.2. 727 1950 Unknown [id number] 2.16.840.1.641421.3.579.2. 1259 1950 Unknown [id number] 2.16.840.1.349574.3.579.2. 1259 1950 Unknown [id number] 2.16.840.1.994550.3.579.2. 1259 1950 Unknown [id number] 2.16.840.1.115369.3.579.2. 1259 1950 Unknown [id number] 2.16.840.1.403278.3.579.2. 1259 1950 Unknown [id number] 2.16.840.1.823149.3.579.2. 1259 Medicare Medicare [id number] Private Health Insurance [employer] [id number] Self-pay Self Pay [id number] Social History Date Type Detail Facility Start: 08-17-2023 End: 05-02-2024 Sex Assigned At [facility] Start: 03-31-2016 End: 01-04-2024 Tobacco smoking status NHIS Never smoked tobacco [facility] Start: 03-31-2016 End: 01-04-2024 Tobacco use and exposure Smokeless tobacco non-user [facility] Start: 04-14-2022 End: 04-28-2022 Alcohol intake Current non-drinker of alcohol (finding) [facility] Start: 1950 Sex Assigned At Not on file C [facility] Start: 04-04-2022 End: 05-12-2022 Exposure to SARS-CoV-2 (event) Not sure [facility] Start: 1950 Sex Assigned At Female F [facility] Tobacco smoking status Never [facility] Start: 05-03-2024 End: 11-02-2024 Alcoholic beverage intake [...] Equipment Origin al Text Equipment Identifier Dates [id number], [id number], [id number] Start: 05-19-2023 Goals Date Patient Goal Desired Activity /State Functional Status Date Assessment Result Facility 05-09-2024 Functional Status N/A [facility] 02-29-2024 Functional Status N/A [facility] Clinical Notes 10-14-2021 to 11-10-2024 Estuardo Sanchez MD - 11/10/2024 12:24 PM EST Note Date & Type Note Facility 11-10-2024 History of Presen t illness Narrative Script for cough syrup sent. Would need chart notes for nebulizer machine and likely need to wait until follow up visit. documented in this encounter [facility] 11-10-2024 Evaluation note Diagnosis Anemia due to chronic blood loss- Primary 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, with long-term current use of insulin (HCC) ([facility]) Mixed hyperlipidemia ([facility]) Mixed hyperlipidemia CLL (chronic lymphocytic leukemia) ([facility]) Chronic lymphoid leukemia, without mention of having achieved remission Primary hypertension ([facility]) Unspecified essential hypertension Gastroesophageal reflux disease without esophagitis Esophageal reflux Encounter for Medicare annual wellness exam Screening mammogram for breast cancer Primary hypertension ([facility])- Primary Unspecified essential hypertension PAF (paroxysmal atrial fibrillation) ([facility]) Atrial fibrillation Stage 3a chronic kidney disease (HCC) ([facility]) Type 2 diabetes mellitus with stage 3a chronic kidney disease, with long-term current use of insulin (HCC) ([facility]) Type 2 diabetes mellitus with diabetic autonomic (poly)neuropathy ([facility]) Postural urinary incontinence Primary hypertension ([facility])- Primary Unspecified essential hypertension PAF (paroxysmal atrial fibrillation) ([facility]) Atrial fibrillation Stage 3a chronic kidney disease (HCC) ([facility]) Type 2 diabetes mellitus with stage 3a chronic kidney disease, with long-term current use of insulin (HCC) ([facility]) Mixed hyperlipidemia (CMS/HCC) Mixed hyperlipidemia Chronic [...] with long-term current use of insulin (HCC) ([facility]) Influenza A- Primary Influenza with other respiratory manifestations [facility] encounter [id number] History of Present illness Narrative* Tj Ramirez [...] 11/02/2024 9:18 AM ESTAssociated Problem(s): Mixed hyperlipidemia ([facility]) Currently taking Atorvastatin 20mg Denies any myalgias. Continue current regimen. * Tj Ramirez NP - 11/02/2024 9:18 AM ESTAssociated Problem(s): Type 2 diabetes mellitus with stage 3a chronic kidney disease, with long-term current use of insulin (HCC) ([facility]/H[facility]) Currently taking Novolog 5 units TID, Tresbia [...] presents for Follow-up. HPI Specialists: Cardiology- , [facility]- Urology: Dr. Shukla Oncology/Hematology- Factor V Endocrinology-Dr. [...] disease, with long-term current use of insulin ([facility]) ([facility]) Currently taking Novolog 5 units TID, Tresbia 10units at bedtime Trulicity 1.5mg Farxiga 10mg Most recent labs: hemoglobin A1C 6.6% Average FSBS range from 68-150 Checks BG levels using: Dyynoyle continuous glucose monitor Several episodes of hypoglycemia [...] on home glucose monitoring noted. Mixed hyperlipidemia ([facility]) - Primary Currently taking Atorvastatin 20mg [...] lisinopril 10 MG tablet documented in this encounterResearch Medical [id number] History of Present illness Narrative* Christopher Garrett [...] 20 mg, Oral, Every morning Continuous Glucose Wallpaper Scraper (PayOrPassStyle Toby 3 [place]) device 1 each, Does not apply, Daily [...] back pain without sciatica Chronic lymphocytic leukemia ([facility]) Chronic obstructive pulmonary disease, unspecified COPD type ([facility]/H[facility]) See Dr Serrano. Stable CKD stage 3 due to type 2 diabetes mellitus (HCC) ([facility]) Cr baseline. No change. BP at goal typically FSBS reviewed and slightly above goal. Has not followed with Nephrology for quite sometime DM (diabetes mellitus) ([facility]) BUCKNER (dyspnea on exertion) BUCKNER, on minimal exertion, associated Palpitations. No prior hx of CAD/ ischemic w/u Factor V Leiden ([facility]) Pt needs a refill on her medications today. On Eliquis. NO issues with the medications. NO bleeding. Fatigue, unspecified type reports fatigue, low energy GERD (gastroesophageal reflux disease) History of CVA (cerebrovascular accident) History of hysterectomy Hyperlipidemia ([facility]) Supposed to be on Lovastatin but [...] Right shoulder pain Secondary pulmonary arterial hypertension ([facility]) Shoulder dislocation, right, sequela Thrombosis of left saphenous vein Type 2 diabetes mellitus ([facility]) Patient was previously on Novolin 70/30 along with Trulicity and Metformin Stopped using Insulin herself as it dropped her blood glucose too low Type 2 diabetes mellitus with diabetic autonomic neuropathy, with long-term current use of insulin ([facility]) Erratic & difficult to control,Partly because [...] to 8 units every meal, continue his [id number] mg once a day, Trulicity 1.5 mg once weekly Mixed hyperlipidemia (CMS/HCC) Primary hypertension (CMS/HCC) Encounter for dietary consultation Vitamin D deficiency - ergocalciferol (Vitamin D-2) 1.25 MG (61115 UT) capsule; Take 1 capsule (1.25 mg) by mouth 1 (one) time per week Hypoglycemia Microalbuminuria Albumin over creatinine 182 in September/2024 Follow up in about 4 months (around 02/15/2025). documented in this encounterResearch Medical [id number] Evaluation note* Diagnosis Anemia due to chronic [...] with long-term current use of insulin (HCC) ([facility]) Type 2 diabetes mellitus with diabetic autonomic (poly)neuropathy ([facility]) Postural urinary incontinence Primary hypertension ([facility])- Primary Unspecified essential hypertension PAF (paroxysmal atrial fibrillation) ([facility]) Atrial fibrillation Stage 3a chronic kidney disease (HCC) ([facility]) Type 2 diabetes mellitus with stage 3a chronic kidney disease, with long-term current use of insulin (HCC) ([facility]) Mixed hyperlipidemia ([facility]) Mixed hyperlipidemia Chronic obstructive pulmonary disease, unspecified COPD type ([facility]) Gastroesophageal reflux disease without esophagitis Esophageal reflux Type 2 diabetes mellitus without complications ([facility]) Type 2 diabetes mellitus with stage 3a chronic kidney disease, with long-term current use of insulin ([facility]) ([facility])- Primary Type 2 diabetes mellitus with diabetic autonomic (poly)neuropathy ([facility]) Chronic obstructive pulmonary disease, unspecified COPD type ([facility]) Need for immunization against influenza Need for prophylactic vaccination and inoculation against influenza Primary hypertension ([facility]) Unspecified essential hypertension Diabetic autonomic neuropathy associated with type 2 diabetes mellitus ([facility])- Primary Type II or unspecified type diabetes mellitus with neurological manifestations, not stated as uncontrolled Mixed hyperlipidemia ([facility]) Mixed hyperlipidemia Primary hypertension ([facility]) Unspecified essential hypertension Encounter for dietary consultation Vitamin D deficiency Hypoglycemia Hypoglycemia, unspecified Microalbuminuria Proteinuria documented in this encounter [facility] [id number] History of Present illness Narrative* Christopher Garrett [...] each, 3 times daily PRN Continuous Glucose Wallpaper Scraper (FreeStyle Toby 3 [place]) device 1 each, Does not apply, Daily [...] (ZOFRAN) 4 mg, Every 8 hours PRN [employer] Ultra test strip USE TO TEST ONCE [...] risk for falls [facility] Pt states she cannot [...] back pain without sciatica Chronic lymphocytic leukemia ([facility]) Chronic obstructive pulmonary disease, unspecified COPD type ([facility]) See Dr Serrano. Stable CKD stage 3 due to type 2 diabetes mellitus (HCC) ([facility]) Cr baseline. No change. BP at goal typically FSBS reviewed and slightly above goal. Has not followed with Nephrology for quite sometime DM (diabetes mellitus) ([facility]) BUCKNER (dyspnea on exertion) BUCKNER, on minimal exertion, associated Palpitations. No prior hx of CAD/ ischemic w/u Factor V Leiden ([facility]) Pt needs a refill on her medications today. On Eliquis. NO issues with the medications. NO bleeding. Fatigue, unspecified type reports fatigue, low energy GERD (gastroesophageal reflux disease) History of CVA (cerebrovascular accident) History of hysterectomy Hyperlipidemia ([facility]) Supposed to be on Lovastatin but [...] Right shoulder pain Secondary pulmonary arterial hypertension ([facility]) Shoulder dislocation, right, sequela Thrombosis of left saphenous vein Type 2 diabetes mellitus ([facility]) Patient was previously on Novolin 70/30 along with Trulicity and Metformin Stopped using Insulin herself as it dropped her blood glucose too low Type 2 diabetes mellitus with diabetic autonomic neuropathy, with long-term current use of insulin ([facility]) Erratic & difficult to control,Partly because [...] 2 diabetes mellitus with diabetic autonomic (poly)neuropathy ([facility]/HCC) - POCT glucose manually resulted - POCT [...] I will stop insulin 70/30 and start Hxrsgzo24 units at bedtime, NovoLog 3-4-5 according to meal size plus scale 1. Instruction given, continuehis Farxiga 10 mg, continue with Trulicity 1.5 mg once a day we will check lab before next visit including C-peptide Mixed hyperlipidemia (CMS/[facility]) Primary hypertension ([facility]) Encounter for dietary consultation Diet and exercise reviewed with the patient Vitamin D deficiency Hypoglycemia Class 1 obesity due to excess calories with serious comorbidity and body mass index (BMI) of 31.0 to 31.9 in adult Follow up in about 3 months (around 2024). documented in this encounterResearch Medical [id number] Evaluation note* Diagnosis Anemia due to chronic blood loss- Primary 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, with long-term current use of insulin (HCC) (CMS/HCC) Mixed hyperlipidemia (CMS/HCC) Mixed hyperlipidemia CLL (chronic lymphocytic leukemia) ([facility]/HCC) Chronic lymphoid leukemia, without mention of having [...] with long-term current use of insulin (HCC) ([facility]/HCC) Type 2 diabetes mellitus with diabetic autonomic (poly)neuropathy ([facility]/HCC) Postural urinary incontinence Primary hypertension ([facility]/HCC)- Primary Unspecified essential hypertension PAF (paroxysmal atrial fibrillation) ([facility]/HCC) Atrial fibrillation Stage 3a chronic kidney disease (HCC) ([facility]/HCC) Type 2 diabetes mellitus with stage 3a chronic kidney disease, with long-term current use of insulin (HCC) ([facility]/HCC) Mixed hyperlipidemia ([facility]/HCC) Mixed hyperlipidemia Chronic obstructive pulmonary disease, unspecified COPD type ([facility]/HCC) Gastroesophageal reflux disease without esophagitis Esophageal reflux Type 2 diabetes mellitus without complications ([facility]/HCC) Type 2 diabetes mellitus with stage 3a chronic kidney disease, with long-term current use of insulin (HCC) ([facility])- Primary Type 2 diabetes mellitus with diabetic autonomic (poly)neuropathy ([facility]/HCC) Chronic obstructive pulmonary disease, unspecified COPD type ([facility]/HCC) Need for immunization against influenza Need for prophylactic vaccination and inoculation against influenza Primary hypertension ([facility]/HCC) Unspecified essential hypertension Type 2 diabetes mellitus with diabetic autonomic (poly)neuropathy ([facility]/HCC)- Primary Mixed hyperlipidemia ([facility]/HCC) Mixed hyperlipidemia Primary hypertension ([facility]/HCC) Unspecified essential hypertension Encounter for dietary consultation Vitamin D deficiency Hypoglycemia Hypoglycemia, unspecified Class 1 obesity due to excess calories with serious comorbidity and body mass index (BMI) of 31.0 to 31.9 in adult documented in this encounter [facility] [id number] NoteCardiology Follow Up Progress Note HPI: Robina Ron is a 73 y.o. female who has a past medical history of Abnormal ECG, Anemia, Arrhythmia, Atrial fibrillation ([facility]/HCC), Chronic kidney disease, Clotting disorder ([facility]/HCC), Diabetes mellitus ([facility]), Hyperlipidemia, Hypertension, Pericardial effusion, and Stroke ([facility]). Patient here for 3 mo follow up hypertension, PAF, Factor V Leiden, and pericardial effusion. Lisinopril was reduced to 5mg at last apt in Apr 2024. She was admitted to [facility] in May 2024 for sepsis. Denies [...] as needed Edd Wade MD Interventional Cardiology [facility]11-19-2024 History of Present illness Narrative* Tj [...] disease, with long-term current use of insulin ([facility]) ([facility]) Most recent labs: hemoglobin A1C 7.1% [...] Chronic obstructive pulmonary disease, unspecified COPD type ([facility]) Using rescue inhaler 1-2 times per month. Feels symptoms are well controlled. No longer follows pulmonolgy * Tj Ramirez NP - 08/01/2024 10:00 AM EST Images from the original note were not included. Subjective Patient ID: Robina Ron is a 73 y.o. female who presents for Hypertension. HPI Specialists: Follows Cardiology- , [facility]- Follows Urology: Dr. Shukla Sees Oncology/Hematology- Factor V Was admitted to [facility] on 06/03/2024 for colitis and septic [...] R ALBUMIN GLOBULIN RATIO 1.1 Resulting Agency [facility] DMII: Most recent labs: hemoglobin A1C 7.1% [...] with long-term current use of insulin (HCC) ([facility]/HCC) - Primary Most recent labs: hemoglobin A1C 7.1% needs rechecked today. Average FSBS range from 68-150 Checks BG levels using: Dyynoyle continuous glucose monitor Several episodes of hypoglycemia [...] preservative free IM (Completed) documented in this [facility]11-19-2024 Instructions* Patient Instructions* Tj Ramirez NP [...] carbohydrates, and simple sugars. documented in this [facility]11-04-2024 Telephone encounter Note* Telephone Encounter - [...] you know Alondra [facility] Work Phone: [phone]) 329-376511-04-2024 Miscellaneous Notes* Telephone Encounter - Alondra James [...] let you know Alondra documented in this encounterResearch Medical [id number] Evaluation + Plan note Diagnostic Tests Pending * Urine Culture 05/09/[address] [facility] [id number] Hospital Discharge instructions Patient Education 05/09/2024 10:01:16 [...] right after experiencing incontinence. General instructions Take awoc-hgf-beajqbe and prescription medicines only as told by [...] important. Where to find more information National [place] of Diabetes and Digestive and Kidney Diseases: www.niddk.nih.gov [place] [employer]: www.urologyhealth.org Contact a health care [...] provider. Document Revised: 04/04/2021 Document Reviewed: 04/04/2021 [facility] Patient Education 2022 Aula 7. 05/09/2024 10:01:15 Overactive Bladder, Adult Overactive Bladder, [...] your health care provider. General instructions Take oflj-sip-uhelfkc and prescription medicines only as told by [...] provider. Document Revised: 05/19/2021 Document Reviewed: 05/19/2021 [facility] Patient Education 2022 Aula 7. Follow Up Care 02/29/2024 11:11:11 With:AMALIA Shukla APRN, NAHEED Tate, URL Address: When: Unknown Comments:6 months [facility] 08-27-2024 NotePatient Education Obstetrics and Gynecology [...] health care provider. General instructions ? Take govs-dgc-zvtfxin and prescription medicines only as told by [...] your health care (more content not included)...[facility]08-26-2024 NoteCardiology Follow Up Progress Note Chief [...] as needed Edd Wade MD Interventional Cardiology [facility]08-21-2024 History of Present illness Narrative* Tj [...] Problem(s): Stage 3 chronic kidney disease (HCC) ([facility]) Continue Farxiga. Monitor labs. CMP ordered today. * Tj Ramirez NP - 05/03/2024 2:18 PM EDTAssociated Problem(s): Primary hypertension ([facility]) Has been checking BP at home States BP is running in 170's at home but is great today in office. Will bring in BP cuff for comparison. Continue Metoprolol and diltiazem as ordered. * Tj Ramirez NP - 05/03/2024 2:14 PM EDTAssociated Problem(s): Chronic obstructive pulmonary disease, unspecified COPD type ([facility]) Using rescue inhaler 1-2 times per [...] presents for Follow-up. HPI Follows Cardiology- , [facility]- next appointment unsure Follows Urology: Dr. Shukla [...] with long-term current use of insulin (HCC) ([facility]) States 14 day average 168 A1C needs completed. Ordered today No episodes of hypoglycemia No medication adverse effects reported by the patient. Stressed upon importance of checking blood glucose at home and bring blood glucose log to appointments. On NPH/Regular (70/30) 15 units q12, Farxiga, Trulicity and Glipizide. Relevant Medications Continuous Glucose Wallpaper Scraper (FreeStyle Toby 3 [place]) device Continuous Glucose Sensor (FreeStyle Toby 3 Plus Sensor) misc Other Relevant Orders Microalbumin / creatinine urine ratio Comprehensive metabolic panel CBC and differential Hemoglobin A1c Ambulatory referral to Podiatry Mixed hyperlipidemia ([facility]) Continue Lipitor 20mg Lipid panel ordered today. Relevant Orders Lipid panel Primary hypertension ([facility]) - Primary Has been checking BP [...] Protonix as directed. PAF (paroxysmal atrial fibrillation) (CMS/[facility]) Relevant Orders Comprehensive metabolic panel CBC and differential Stage 3 chronic kidney disease (HCC) ([facility]) Continue Farxiga. Monitor labs. CMP ordered today. Relevant Orders Microalbumin / creatinine urine ratio Comprehensive metabolic panel Chronic obstructive pulmonary disease, unspecified COPD type ([facility]) Using rescue inhaler 1-2 times per month Feels symptoms are well controlled. No longer follows pulmonolgy Other Visit Diagnoses Type 2 diabetes mellitus without complications ([facility]) Relevant Medications Continuous Glucose Wallpaper Scraper (FreeStyle Toby 3 [place]) device Continuous Glucose Sensor (FreeStyle Toby 3 Plus Sensor) misc documented in this [facility]08-21-2024 Instructions* Patient Instructions* Tj Ramirez NP - [...] carbohydrates, and simple sugars. documented in this [facility]07-02-2024 NoteCardiology Follow Up Progress Note Chief [...] as needed Edd Wade MD Interventional Cardiology [facility]06-23-2024 NoteChief Complaint Referral *Incontinence HPI Staff [...] with voice recognition artificial intelligence software, specifically what3words, Bangee and or PureCars. Substitutions may have occurred due to the [...] regarding this. Follow-up With When Contact Information AMAILA Shukla APRN, Shante Bonilla, FAM, URL Additional [...] diabetic autonomic (poly)neuropathy (more content not included)...[facility] HospitalComment on above:Result Comment: Electronically Signed By: AMALIA Shukla APRN, [place] X\.br\Date and Time Signed: 03/05/24 22:19 [id number] Miscellaneous Notes* Telephone Encounter - Makenna Kendall RN - 04/21/2022 1:47 PM EDT Pt has follow up appointment with Dr Rainey tomorrow. Makenna Kendall RN * Telephone Encounter - Makenna Kendall RN - 04/21/2022 1:31 PM EDT Spoke with Pankaj at Dr Rainey's office. Recent records and labs faxed to [phone] per office request. Makenna Kendall RN * Telephone Encounter - Makenna Kendall RN - 04/21/2022 12:54 PM EDT Message left with Dr Rainey's medical imaging technologist again today regarding this pt and the urgency of this being addressed. Will try again later today if I don't hear back from their office. Makenna Kendall RN * Telephone Encounter - Makenna Kendall RN - 04/17/2022 10:39 AM EDT Call placed to [facility]. Office is closed. Makenna Kendall RN * [...] pt is nowseen by Dr Rainey at [facility]. Call placed to their office ([phone]) and message left requesting a call back. PSS: can you please update pt's PCP info. Thanks, Makenna Kendall RN * Telephone Encounter - Christi iFnk MD - 04/14/2022 1:39 PM EDT Thanks. Can we have her PCP address this, Thanks * Telephone Encounter - Christy Byrd RN - 04/14/2022 1:23 PM EDT Key Monteiro from [facility] Lab Client Services calls to report critical results: Glucose - 506 Pt identifiers and results read back for verification. Christy Byrd RN [facility] Miscellaneous Notes* Telephone Encounter - Adrienne [...] Pss * Telephone Encounter - Shaye Gonzalez [facility] - 04/06/2022 8:57 AM EDT Records faxed [...] an upper endoscopy. Thanks documented [facility] Evaluation note* Encounter Date Diagnosis Assessment Notes Treatment Notes Treatment Clinical Notes Apr, Anemia due to blood loss, chronic (ICD-10 - D50.0) Txt4 Other 08-02-2022 NoteHNO ID: [id number] Author: Brenda Tavera RN Service: ? Author [...] he has sent a message to LIZZY Bermoe to communicate to the PCP-Refer to phone [...] noted. She has verbalized understanding [facility]da [facility]a [facility]22 NoteHNO ID: [id number] Author: Christi Fink MD Service: ? Author Type: Physician Type: Progress Notes Filed: 04/14/2022 1:13 PM Note Text: PATIENT NAME: Robina Ron CLINIC NO.: [id number] ATTENDING PHYSICIAN: Christi Fink MD DATE OF [...] g/dL Final RDW-CV Date (more content not included)...[facility]08-02-2022 History of Present illness Narrative* Brenda [...] understanding Brenda Tavera RN documented in this encounterLima [facility]07-22-2022 NoteHNO ID: [id number] Author: Christi Fink MD Service: ? Author Type: Physician Type: Progress Notes Filed: 04/04/2022 11:07 AM Note Text: PATIENT NAME: Robina Ron CLINIC NO.: [id number] ATTENDING PHYSICIAN: Christi Fink MD DATE OF [...] not taking: Reported on 03/31/2022 ) - Emcpe-8-AYE-EPA-Fish Oil 1,000 mg (120 mg-180 mg) cap [...] PAST MEDICAL HISTORY Diagnosis Date - A-fib ([facility]) - Anemia - Asthma - Chronic low back pain with sciatica - COPD (chronic obstructive pulmonary disease) ([facility]) - CVA (cerebral (more content not included)...[facility] 12-22-2021 NoteCARDIAC STRESS TEST Requesting Physician: [...] interpreted and reported in a separate dictation. [facility] Signed and Approved by: DR ALFRED SUGGS 03/03/2022 10:18:00[facility]02-01-2022 Evaluation note* Encounter Date Diagnosis [...] however, relatively normal function can return. 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 Patient given order for physical therapy. Txt4 Other Evaluation + Plan note Future Appointments Appointment Date:04/11/2024 09:00:00 AM Scheduled Provider:AMALIA Shukla APRN, [place] [facility] Appointment Type:URO Office Visit [facility] evaluation + Plan note Future Appointments Appointment Date:04/11/2024 09:00:00 AM Scheduled Provider:AMALIA Shukla APRN, [place] Location:[facility] Appointment Type:URO Office Visit Diagnostic Tests Pending * Urine [facility] [facility] Diagnosis Iron deficiency anemia due to chronic blood loss- Primary Iron deficiency anemia secondary to blood loss (chronic) Controlled type 2 diabetes mellitus without complication, unspecified whether penitentiary insulin use (HCC) [facility]* Diagnosis Iron deficiency anemia due to chronic blood loss- Primary Iron deficiency anemia secondary to blood loss (chronic) [facility]* Diagnosis Iron deficiency anemia due to chronic blood loss- Primary Iron deficiency anemia secondary to blood loss (chronic) [facility]* Diagnosis Iron deficiency anemia due to chronic blood loss- Primary Iron deficiency anemia secondary to blood loss (chronic) [facility]* Diagnosis Iron deficiency anemia due to chronic blood loss- Primary Iron deficiency anemia secondary to blood loss (chronic) [facility]* Diagnosis Onset Date Resolution Status Iron deficiency anemia [facility] Work Phone: Evaluation note* Diagnosis Anemia due to chronic blood loss- Primary 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, with long-term current use of insulin (HCC) ([facility]/HCC) Mixed hyperlipidemia ([facility]/HCC) Mixed hyperlipidemia CLL (chronic lymphocytic leukemia) ([facility]) Chronic lymphoid leukemia, without mention of having achieved remission Primary hypertension ([facility]) Unspecified essential hypertension Gastroesophageal reflux disease without esophagitis Esophageal reflux Encounter for Medicare annual wellness exam Screening mammogram for breast cancer Primary hypertension ([facility])- Primary Unspecified essential hypertension PAF (paroxysmal atrial fibrillation) ([facility]/HCC) Atrial fibrillation Stage 3a chronic kidney disease (HCC) ([facility]) Type 2 diabetes mellitus with stage 3a chronic kidney disease, with long-term current use of insulin (HCC) ([facility]/HCC) Type 2 diabetes mellitus with diabetic autonomic (poly)neuropathy ([facility]/HCC) Postural urinary incontinence Primary hypertension ([facility]/HCC)- Primary Unspecified essential hypertension PAF (paroxysmal atrial fibrillation) ([facility]/HCC) Atrial fibrillation Stage 3a chronic kidney disease (HCC) ([facility]) Type 2 diabetes mellitus with stage 3a chronic kidney disease, with long-term current use of insulin (HCC) (CMS/HCC) Mixed hyperlipidemia (CMS/HCC) Mixed hyperlipidemia Chronic obstructive pulmonary disease, unspecified COPD type (CMS/HCC) Gastroesophageal reflux disease without esophagitis Esophageal reflux Type 2 diabetes mellitus without complications ([facility]/HCC) Type 2 diabetes mellitus with stage 3a chronic kidney disease, with long-term current use of insulin (HCC) ([facility]/HCC)- Primary Type 2 diabetes mellitus with diabetic autonomic (poly)neuropathy ([facility]/HCC) Chronic obstructive pulmonary disease, unspecified COPD type ([facility]/HCC) Need for immunization against influenza Need for prophylactic vaccination and inoculation against influenza Primary hypertension ([facility]) Unspecified essential hypertension documented in this encounter [facility]* Diagnosis Anemia due to chronic blood loss- Primary 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, with long-term current use of insulin (HCC) ([facility]/HCC) Mixed hyperlipidemia ([facility]/HCC) Mixed hyperlipidemia CLL (chronic lymphocytic leukemia) ([facility]) Chronic lymphoid leukemia, without mention of having achieved remission Primary hypertension ([facility]/HCC) Unspecified essential hypertension Gastroesophageal reflux disease without esophagitis Esophageal reflux Encounter for Medicare annual wellness exam Screening mammogram for breast cancer Primary hypertension ([facility]/HCC)- Primary Unspecified essential hypertension PAF (paroxysmal atrial fibrillation) ([facility]/HCC) Atrial fibrillation Stage 3a chronic kidney disease (HCC) ([facility]/HCC) Type 2 diabetes mellitus with stage 3a chronic kidney disease, with long-term current use of insulin (HCC) ([facility]/HCC) Type 2 diabetes mellitus with diabetic autonomic (poly)neuropathy ([facility]/HCC) Postural urinary incontinence Primary hypertension ([facility]/HCC)- Primary Unspecified essential hypertension PAF (paroxysmal atrial fibrillation) ([facility]/HCC) Atrial fibrillation Stage 3a chronic kidney disease (HCC) ([facility]/HCC) Type 2 diabetes mellitus with stage 3a chronic kidney disease, with long-term current use of insulin (HCC) ([facility]/HCC) Mixed hyperlipidemia ([facility]/HCC) Mixed hyperlipidemia Chronic obstructive pulmonary disease, unspecified COPD type ([facility]/HCC) Gastroesophageal reflux disease without esophagitis Esophageal reflux Type 2 diabetes mellitus without complications ([facility]/HCC) Type 2 diabetes mellitus with stage 3a chronic kidney disease, with long-term current use of insulin (HCC) ([facility]/HCC)- Primary Type 2 diabetes mellitus with stage 3a chronic kidney disease, with long-term current use of insulin (HCC) ([facility]/HCC)- Primary Type 2 diabetes mellitus with diabetic autonomic (poly)neuropathy ([facility]/HCC) Chronic obstructive pulmonary disease, unspecified COPD type ([facility]/HCC) Need for immunization against influenza Need for prophylactic vaccination and inoculation against influenza Primary hypertension ([facility]/HCC) Unspecified essential hypertension documented in this encounter [facility]* Diagnosis Primary hypertension (CMS/HCC)- Primary Unspecified essential hypertension PAF (paroxysmal atrial fibrillation) ([facility]/HCC) Atrial fibrillation Stage 3a chronic kidney disease (HCC) ([facility]/HCC) Type 2 diabetes mellitus with stage 3a chronic kidney disease, with long-term current use of insulin (HCC) ([facility]/HCC) Mixed hyperlipidemia ([facility]/HCC) Mixed hyperlipidemia Chronic obstructive pulmonary disease, unspecified COPD type ([facility]/HCC) Gastroesophageal reflux disease without esophagitis Esophageal reflux Type 2 diabetes mellitus without complications ([facility]) documented in this encounter [facility]* Diagnosis Anemia due to chronic blood loss- Primary 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, with long-term current use of insulin (HCC) ([facility]/HCC) Mixed hyperlipidemia ([facility]/HCC) Mixed hyperlipidemia CLL (chronic lymphocytic leukemia) ([facility]) Chronic lymphoid leukemia, without mention of having achieved remission Primary hypertension ([facility]/HCC) Unspecified essential hypertension Gastroesophageal reflux disease without esophagitis Esophageal reflux Encounter for Medicare annual wellness exam Screening mammogram for breast cancer Primary hypertension ([facility])- Primary Unspecified essential hypertension PAF (paroxysmal atrial fibrillation) ([facility]/HCC) Atrial fibrillation Stage 3a chronic kidney disease (HCC) ([facility]) Type 2 diabetes mellitus with stage 3a chronic kidney disease, with long-term current use of insulin (HCC) ([facility]) Type 2 diabetes mellitus with diabetic autonomic (poly)neuropathy ([facility]/HCC) Postural urinary incontinence Primary hypertension ([facility]/HCC)- Primary Unspecified essential hypertension PAF (paroxysmal atrial fibrillation) ([facility]/HCC) Atrial fibrillation Stage 3a chronic kidney disease (HCC) ([facility]) Type 2 diabetes mellitus with stage 3a chronic kidney disease, with long-term current use of insulin (HCC) ([facility]CC) Mixed hyperlipidemia ([facility]/HCC) Mixed hyperlipidemia Chronic obstructive pulmonary disease, unspecified COPD type ([facility]) Gastroesophageal reflux disease without esophagitis Esophageal reflux Type 2 diabetes mellitus without complications ([facility]/HCC) Type 2 diabetes mellitus with stage 3a [...] Surgical History choliectomy Hospitalization History listed above Txt4 Other Hospital course Narrative No data available for this section [facility] Hospital Discharge instructions No data available for this section [facility] progress note No data available for this section [facility] reason for referral (narrative)* Consultation (Routine) - Authorized Specialty Diagnoses / Procedures Referred By Ly infante Referred To Contact Podiatry Diagnoses Type 2 diabetes mellitus with stage 3a chronic kidney disease, with long-term current use of insulin (HCC) ([facility]) Procedures MI OFFICE/OUTPATIENT NEW HIGH MDM 60 MINUTES Tj Ramirez NP [address] [place] [id number] Ammon Khanna DPM [address] [place] [address] Referral ID Status Reason Start Date Expiration Date Visits Requested Visits Authorized [id number] Authorized Specialty Services Required 05/03/2024 10/30/2024 1 [...] PER 1 MG Christi Fink MD [address] [place] [address] [facility] [address] [facility] [place] [place] [address] Referral ID Status Reason Start Date Expiration Date V isits Requested Visits Authorized [id number] Authorized 04/03/2022 09/12/2022 99 99 Reason Comments Appointment Confirmation Reason Comments Critical Results Glucose Reason Comments Hypertension Reason Comments Diabetes NEW REF ONLY Specialty Diagnoses / Procedures Referred By Ly t Referred To Contact Endocrinology Diagnoses Type 2 diabetes mellitus with diabetic autonomic (poly)neuropathy (CMS/HCC) Procedures MI OFFICE/OUTPATIENT NEW HIGH MDM Tj Ramirez, JOSE [address] [place] [address] Phone: tel: fax: Christopher Garrett MD [address] [place] [address] Phone: tel: fax: Referral ID Status Reason Start Date Expiration Date V isits Requested Visits Authorized [id number] Closed Specialty Services Required 08/01/2024 01/28/2025 1 [...] or prosecute any alcohol or drug abuse patient.[facility] the event this information is protected by the Federal Confidentiality of Alcohol and Drug Abuse Patient Records regulations: The Federal rules restrict any use of the information to criminally investigate or prosecute any alcohol or drug abuse patient.[facility] the event this information is protected by the Federal Confidentiality of Alcohol and Drug Abuse Patient Records regulations: The Federal rules restrict any use of the information to criminally investigate or prosecute any alcohol or drug abuse patient.[facility] the event this information is protected by the Federal Confidentiality of Alcohol and Drug Abuse Patient Records regulations: The Federal rules restrict any use of the information to criminally investigate or prosecute any alcohol or drug abuse patient.[facility] the event this information is protected by the Federal Confidentiality of Alcohol and Drug Abuse Patient Records regulations: The Federal rules restrict any use of the information to criminally investigate or prosecute any alcohol or drug abuse patient.[facility] the event this information is protected by the Federal Confidentiality of Alcohol and Drug Abuse Patient Records regulations: The Federal rules restrict any use of the information to criminally investigate or prosecute any alcohol or drug abuse patient.[facility] the event this information is protected by the Federal Confidentiality of Alcohol and Drug Abuse Patient Records regulations: The Federal rules restrict any use of the information to criminally investigate or prosecute any alcohol or drug abuse patient.[facility] Care Teams (unrecognized sec tion and content) Brush Or Broom Cutter Relationship Specialty Start Date End Date Shaikh Sparks MD [address] [place] [address] PCP - General Primary Care 04/14/22 Brush Or Broom Cutter Relationship Specialty Start Date End Date Demetrio Joseph PCP - General Family Practice 03/09/16 04/13/22 Shaikh Sparks MD [address] [place] [address] PCP - General Primary Care 04/14/22 Brush Or Broom Cutter Relationship Specialty Start Date End Date Shaikh Sparks MD [address] [place] [address] PCP - General Primary Care 04/14/22 Brush Or Broom Cutter Relationship Specialty Start Date End Date Shaikh Sparks MD [address] [place] [address] PCP - General Primary Care 04/14/22 Brush Or Broom Cutter Relationship Specialty Start Date End Date Shaikh Sparks MD [address] [place] [address] PCP - General Primary Care 04/14/22 Brush Or Broom Cutter Relationship Specialty Start Date End Date Shaikh Sparks MD [address] [place] [address] PCP - General Primary Care 04/14/22 Brush Or Broom Cutter Relationship Specialty Start Date End Date Shaikh Sparks MD [address] [place] [place] [address] PCP - General Primary Care 04/14/22 Team Status: Inactive Member Role Status Dates Hood Patel MD Attending Provider Active Shaikh Clare MD Primary Care Provider Active Team Status: Active Member Role Status Dates Shaikh Clare MD Primary Care Provider Active Brush Or Broom Cutter Relationship Specialty Start Date End Date Estuardo Sanchez MD [address] [place] [address] PCP - General Family Medicine 04/18/24 Tj Ramirez NP [address] [place] [address] Nurse Practitioner Family Medicine 04/18/24 Brush Or Broom Cutter Relationship Specialty Start Date End Date Estuardo Sanchez MD [address] [place] [address] PCP - General Family Medicine 04/18/24 Tj Ramirez NP [address] [place] [address] Nurse Practitioner Family Medicine 04/18/24 Brush Or Broom Cutter Relationship Specialty Start Date End Date Estuardo Sanchez MD [address] [place] [address] PCP - General Family Medicine 04/18/24 Tj Ramirez NP [address] [place] [address] Nurse Practitioner Family Medicine 04/18/24 Brush Or Broom Cutter Relationship Specialty Start Date End Date Estuardo Sanchez MD [address] [place] [address] PCP - General Family Medicine 04/18/24 Tj Ramirez NP [address] [place] [address] Nurse Practitioner Family Medicine 04/18/24 Brush Or Broom Cutter Relationship Specialty Start Date End Date Estuardo Sanchez MD [address] [place] [address] PCP - General Family Medicine 04/18/24 Tj Ramirez NP [address] [place] [address] Nurse Practitioner Family Medicine 04/18/24 Brush Or Broom Cutter Relationship Specialty Start Date End Date Estuardo Sanchez MD [address] [place] [address] PCP - General Family Medicine 04/18/24 Tj Ramirez NP [address] [place] [address] Nurse Practitioner Family Medicine 04/18/24 Brush Or Broom Cutter Relationship Specialty Start Date End Date Estuardo Sanchez MD [address] [place] [address] PCP - General Family Medicine 04/18/24 Tj Ramirez NP [address] [place] [address] Nurse Practitioner Family Medicine 04/18/24 Brush Or Broom Cutter Relationship Specialty Start Date End Date Estuardo Sanchez MD [address] [place] [address] PCP - General Family Medicine 04/18/24 Tj Ramirez NP [address] [place] [address] Nurse Practitioner Family Medicine 04/18/24 Brush Or Broom Cutter Relationship Specialty Start Date End Date Estuardo Sanchez MD [address] [place] [address] PCP - General Family Medicine 04/18/24 Tj Ramirez NP [address] [place] [address] Nurse Practitioner Family Medicine 04/18/24 Brush Or Broom Cutter Relationship Specialty Start Date End Date Estuardo Sanchez MD [address] [place] [address] PCP - General Family Medicine 04/18/24 Tj Ramirez NP [address] [place] [address] Nurse Practitioner Family Medicine 04/18/24 Brush Or Broom Cutter Relationship Specialty Start Date End Date Estuardo Sanchez MD [address] [place] [address] PCP - General Family Medicine 04/18/24 Shaikh Sparks MD [address] [place] [address] PCP - Carlos MAX 08/13/24 Tj Ramirez NP [address] [place] [address] Nurse Practitioner Family Medicine 04/18/24 Brush Or Broom Cutter Relationship Specialty Start Date End Date Estuardo Sanchez MD [address] [place] [phone] PCP - General Family Medicine 04/18/24 Shaikh Spraks MD [address] [place] [address] PCP - [place] 08/13/24 Tj Ramirez NP [address] [place] [address] Nurse Practitioner Family Medicine 04/18/24 Brush Or Broom Cutter Relationship Specialty Start Date End Date Estuardo Sanchez MD [address] [place] [phone] PCP - General Family Medicine 04/18/24 Tj Ramirez NP [address] [place] [address] Nurse Practitioner Family Medicine 04/18/24 Brush Or Broom Cutter Relationship Specialty Start Date End Date Estuardo Sanchez MD [address] [place] [address] PCP - General Family Medicine 04/18/24 Tj Ramirez NP [address] [place] [address] Nurse Practitioner Family Medicine 04/18/24 Brush Or Broom Cutter Relationship Specialty Start Date End Date Estuardo Sanchez MD [address] [place] [address] PCP - General Family Medicine 04/18/24 Tj Ramirez NP [address] [place] [address] Nurse Practitioner Family Medicine 04/18/24 Brush Or Broom Cutter Relationship Specialty Start Date End Date Estuardo Sanchez MD [address] [place] [address] PCP - General Family Medicine 04/18/24 Tj Ramirez NP [address] [place] [address] Nurse Practitioner [facility] 04/18/24 INFORMATION SOURCE (unrecogn ized section and content) DATE CREATED AUTHOR 05/14/2022 [facility] DATE CREATED AUTHOR AUTHOR'S ORGANIZ ATION 05/16/2022 [facility] DATE CREATED AUTHOR AUTHOR'S ORGANIZ ATION 07/07/2022 [facility] DATE CREATED AUTHOR AUTHOR'S ORGANIZ ATION 03/03/2024 [facility] DATE CREATED AUTHOR AUTHOR'S ORGANIZ ATION 05/10/2024 [facility] DATE CREATED AUTHOR AUTHOR'S ORGANIZ ATION 05/11/2024 [facility] DATE CREATED AUTHOR AUTHOR'S ORGANIZ ATION 07/15/2024 [facility] DATE CREATED AUTHOR AUTHOR'S ORGANIZ ATION 08/07/2024 [facility] DATE CREATED AUTHOR AUTHOR'S ORGANIZ ATION 11/04/[address] [facility] EPIC FOR RECORDS [...] BE BASED ON THE PRIMARY CLINICAL RECORDS. [facility]. provides no warranty or guarantee of the accuracy or completeness of information in this document.
--- NOTE | 2024-11-10 23:56 | PC.NURSE ---
this patient awake and alert sitting upright on the bed, while being transported upstairs to room 215. this patient's belonging placed in a bag, slippers, pants and shirt, and this patient had her cell phone on her hands.
[2024-11-11] VITALS (21 sets, daily range): BP systolic 111–140; BP diastolic 57–81; PULSE 76–100; TEMP 37.1–38.4; O2SAT 85–99; BMI 25.6
--- NOTE | 2024-11-11 04:00 | ECG_ITS ---
[facility] Test Date: 2024-11-11 Pat Name: CHEY RON Department: Room: 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
[2024-11-11 05:03] LABS: C Reactive Protein 4.29 mg/dL (<=0.50); Troponin I High Sensitivity 7.3 pg/mL (4.0-51.3)
[2024-11-11 06:17] LABS: Hematocrit 30.8 % (36.0-48.0); Hemoglobin 9.8 g/dL (12.0-16.0); Mean Corpuscular HGB Conc 31.8 g/dL (29.9-35.2); Mean Corpuscular Hemoglobin 26.8 pg (26.7-34.0); Mean Corpuscular Volume 84.4 fL (81.0-99.0); Mean Platelet Volume 9.3 fL (9.5-13.5); Platelet Count 88 10^3/uL (150-450); Red Blood Count 3.65 10^6/uL (4.20-5.40); Red Cell Distribution Width 16.1 % (11.0-15.0); White Blood Count 4.9 10^3/uL (4.0-11.0)
[2024-11-11 06:33] LABS: Alanine Aminotransferase 59 U/L (14-59); Albumin Globulin Ratio 0.9; Albumin Level 2.4 g/dL (3.4-5.0); Alkaline Phosphatase 86 U/L (46-116); Anion Gap 13.2; Aspartate Amino Transferase 40 U/L (15-37); Bilirubin Total 0.4 mg/dL (0.2-1.0); Carbon Dioxide 25.3 mmol/L (21.0-32.0); Chloride 107 mmol/L (98-107); Estimated GFR (African America >60 (>=60 mL/min/1.73m^2); Estimated GFR (Non-African Ame 54 (>=60 mL/min/1.73m^2); Globulin 2.8 g/dL; Glucose 214 mg/dL (74-106); Magnesium 2.4 mg/dL (1.8-2.4); Potassium 4.5 mmol/L (3.5-5.1); Sodium 141 mmol/L (136-145); Total Protein 5.2 g/dL (6.4-8.2)
[2024-11-11 06:36] LABS: Lymphocytes Absolute Manual 0.34 10^3/uL (1.20-3.80); Monocytes Absolute Manual 0.14 10^3/uL (0.30-0.80); Segmented Neut Absolute Manual 4.41 10^3/uL (1.4-6.5)
[2024-11-11] MEDS: GLIPIZIDE 5 MG TABLET PO ×2 (07:33→16:20)
[2024-11-11] MEDS: ACETAMINOPHEN 325 MG TABLET 650 MG PO (07:34)
[2024-11-11] MEDS: GUAIFENESIN 200 MG/DEXTROMETHORPHAN 20 MG 10 ML UNIT DOSE CUP PO ×2 (07:34→14:55)
[2024-11-11 08:42] LABS: Internal Control Within Normal Limits; Respiratory Syncytial Virus Not Detected (NOT DETECTE); SARS-CoV-2 Ag NEGATIVE (NEGATIVE)
[2024-11-11] MEDS: SOLIFENACIN SUCCINATE 10 MG TABLET PO (09:23)
[2024-11-11] MEDS: OSELTAMIVIR PHOSPHATE 30 MG CAPSULE PO (09:23)
[2024-11-11] MEDS: METOPROLOL TARTRATE 50 MG TABLET PO ×2 (09:23→21:40)
[2024-11-11] MEDS: VANCOMYCIN HCL 1,000 MG in 0.9 % SODIUM CHLORIDE 250 ML 250 MG IV (09:23)
[2024-11-11] MEDS: APIXABAN 5 MG TABLET PO ×2 (09:23→21:58)
[2024-11-11] MEDS: IMIPENEM/CILASTATIN SODIUM 1,000 MG in 0.9 % SODIUM CHLORIDE 100 ML 100 MG IV ×3 (09:23→23:56)
[2024-11-11] MEDS: 0.9 % SODIUM CHLORIDE 250 ML 10 ML IV (09:23)
[2024-11-11] MEDS: FUROSEMIDE 40 MG/4 ML VIAL IVP ×2 (09:23→21:40)
[2024-11-11] MEDS: CANAGLIFLOZIN 100 MG TABLET PO (09:23)
[2024-11-11] MEDS: LISINOPRIL 5 MG TABLET PO (09:24)
[2024-11-11] MEDS: DILTIAZEM HCL 240 MG CAP.ER.24H PO (09:24)
[2024-11-11] MEDS: SPIRONOLACTONE 25 MG TABLET PO (09:24)
[2024-11-11] MEDS: ATORVASTATIN CALCIUM 20 MG TABLET PO (09:24)
[2024-11-11] MEDS: PANTOPRAZOLE SODIUM 40 MG TABLET.DR PO (09:25)
--- NOTE | 2024-11-11 10:48 | P.HP_ITS ---
HPI H&P: HPI History of Present Illness Chief complaint: COUGH SOB Narrative: Patient with a recent admission to the hospital for influenza A and acute exacerbation of COPD, treated and released a day and a half prior to presentation back to the hospital, patient increasing cough and shortness of breath at home, in ER found to have right lower lobe pneumonia as well as acute combined congestive heart failure, patient admitted for workup and treatment of same When I saw patient up in the medical surgical floor, she was resting comfortably in bed, this is some moderate respiratory distress and appears generally weak Opioid HPI Opioid Management Most Recent Pain and Opioid Data: Last Pain Scale 0 11/08/24 09:57 11/08/24 Last Pain Intensity 0 06/07/24 15:34 06/07/24 Last Pain Assessment 11/11/24 10:20 Last MAR Pain Assessment 11/11/24 08:26 Last ORT Total Score 0 11/11/24 00:35 11/11/24 Last ORT Risk Category Low Risk 11/11/24 00:35 11/11/24 Review of Systems ROS Status of ROS 10 or more systems reviewed and unremark able except as noted in history and below [facility] Medical History Moderate protein malnutrition ?E44.0 - Moderate protein-calorie malnutrition (ICD-10) Oropharyngeal dysphagia ?R13.12 - Dysphagia, oropharyngeal phase (ICD-10) Colitis ?K52.9 - Noninfective gastroenteritis and colitis, unspecified (ICD-10) HLD (hyperlipidemia) ?E78.5 - Hyperlipidemia, unspecified (ICD-10) Chronic diastolic heart failure ?I50.32 - Chronic diastolic (congestive) heart failure (ICD-10) Paroxysmal A-fib ?I48.0 - Paroxysmal atrial fibrillation (ICD-10) TIA (transient ischemic attack) ?G45.9 - Transient cerebral ischemic attack, unspecified (ICD-10) CLL (chronic lymphocytic leukemia) ?C91.10 - Chronic lymphocytic leukemia of B-cell type not having achieved remission (ICD-10) Factor 5 Leiden mutation, heterozygous ?D68.51 - Activated protein C resistance (ICD-10) Diabetes ?E11.9 - Type 2 diabetes mellitus without complications (ICD-10) High cholesterol ?E78.00 - Pure hypercholesterolemia, unspecified (ICD-10) Overactive bladder ?N32.81 - Overactive bladder (ICD-10) HTN (hypertension) ?I10 - Essential (primary) hypertension (ICD-10) Surgical History Cataracts, both eyes ?H26.9 - Unspecified cataract (ICD-10) History of cholecystectomy ?Z90.49 - Acquired absence of other specified parts of digestive tract (ICD- 10) H/O: hysterectomy ?Z90.710 - Acquired absence of both cervix and uterus (ICD-10) Family History Father Family history of CHF (congestive heart failure) Mother Family history of cancer Family history of hypertension Social History Within the past year, how often did you have a drink containing alcohol: never Score interpretation: A score less than 3 is consistent with normal alcohol consumption. Smoking status: Never smoker Non-prescribed substance use: denies use Previous occupational history: disabled Highest level of school completed/degree received: high school graduate Are you now , , , , never or living with a partner: In a typical week, how many times do you talk on the telephone with family, friends, or neighbors: 3 or more times per week How often do you get together with friends or relatives: 3 or more times per week Little interest or pleasure in doing things: not at all Feeling down, depressed, or hopeless: not at all Feel stressed/tense/nervous/anxious/difficulty sleeping: not at all Do you think of yourself as: decline to answer Gender Identity: female Meds Home Medications and Allergies Home Medications ?Medication ?Instructions ?Recorded ?Confirmed ?Type albuterol sulfate 90 mcg/actuation 2 inh inhalation Q6H PRN shortness 06/03/24 11/10/24 History aerosol inhaler of breath or wheezing apixaban 5 mg tablet (Eliquis) 5 mg PO Q12H 06/03/24 11/10/24 History atorvastatin 20 mg tablet 20 mg PO .QD 06/03/24 11/10/24 History dapagliflozin propanediol 10 mg 10 mg PO .QD 06/03/24 11/10/24 History tablet (Farxiga) diltiazem HCl 240 mg 240 mg PO Q24H 06/03/24 11/10/24 History capsule,extended release 24 hr dulaglutide 1.5 mg/0.5 mL 1.5 mg subcut .WEEKLY 06/03/24 11/10/24 History subcutaneous pen injector ([facility]) lisinopril 5 mg tablet 5 mg PO .QD 06/03/24 11/10/24 History metoprolol tartrate 50 mg tablet 50 mg PO Q12H 06/03/24 11/10/24 History pantoprazole 40 mg tablet,delayed 40 mg PO .Q24 06/03/24 11/10/24 History release trazodone 50 mg tablet 50 mg PO .QHS 06/03/24 11/10/24 History trospium 20 mg tablet 20 mg PO Q12H 06/03/24 11/10/24 History ergocalciferol (vitamin D2) 1,250 1,250 mcg PO QWEEK 11/06/24 11/10/24 History mcg (50,000 unit) capsule glipizide 5 mg tablet 5 mg PO .bidac 11/06/24 11/10/24 History insulin lispro 100 unit/mL 5 unit subcut AC 11/06/24 11/11/24 History subcutaneous pen lancets 33 gauge (OneTouch Delica 11/06/24 11/10/24 History Plus Lancet) pen needle, diabetic 31 gauge x 11/06/24 11/10/24 History 5/16 (BD Ultra-Fine Short Pen Needle) insulin degludec 100 unit/mL (3 15 unit (0.15 mL) subcut .qhs #0 mL 11/09/24 11/10/24 Rx mL) subcutaneous pen (Tresiba FlexTouch U-100 insulin) ipratropium 0.5 mg-albuterol 3 mg 3 ml inhalation Q6H PRN Shortness 11/09/24 11/10/24 Rx (2.5 mg base)/3 mL nebulization Of Breath Or Wheezing 30 days #1 mL soln oseltamivir 30 mg capsule 30 mg PO Q24H 3 days #3 caps 11/09/24 11/10/24 Rx prednisone 20 mg tablet 20 mg PO BID 7 days #14 tabs 11/09/24 11/10/24 Rx Allergies Allergy/AdvReac Type Severity Reaction Status Date / Time oxycodone (From Percocet) Allergy Agitated Verified 11/10/24 16:09 Exam Constitutional Vital Signs, click to edit/add: Last Vital Signs Temp 100.2 F 11/11/24 08:35 Pulse 84 11/11/24 09:58 Resp 18 11/11/24 06:00 BP 111/63 11/11/24 06:00 Pulse Ox 98 11/11/24 06:00 O2 Del Method Nasal Cannula 11/11/24 06:00 O2 Flow Rate 2 11/11/24 06:00 Documenting provider has reviewed patient's vital signs: yes Common normals: apparent distress (Moderate conversational dyspnea, generally appears weak) Respiratory Common normals: abnormal respiratory effort (Moderate respiratory distress) Auscultation: rales ([facility] [place]); no wheezes Cardio Common normals: regular rate and regular rhythm GI Common normals: Normal to inspection, nondistended, normoactive bowel sounds present, soft to palpation and non-tender Extremity Common normals: abnormal to inspection (1+ edema) Results Labs Labs: Short CBC 11/10/24 11/11/24 Range/Units 20:03 06:12 WBC 6.4 4.9 (4.0-11.0) 10^3/uL Hgb 10.4 L 9.8 L (12.0-16.0) g/dL Hct 32.7 L 30.8 L (36.0-48.0) % Plt Count 106 L 88 L (150-450) 10^3/uL BMP 11/10/24 11/11/24 20:03 06:12 Sodium 143 141 Potassium 4.4 4.5 Chloride 109 H 107 Carbon Dioxide 24.6 25.3 BUN 35.0 H 31.0 H Creatinine 1.26 H 1.00 Glucose 103 214 H Calcium 8.2 L 8.0 L Liver Function 11/10/24 11/11/24 Range/Units 20:03 06:12 Total Bilirubin 0.4 0.4 (0.2-1.0) mg/dL AST 23 40 H (15-37) U/L ALT 59 59 (14-59) U/L Alkaline Phosphatase 95 86 (46-116) U/L Albumin 2.6 L 2.4 L (3.4-5.0) g/dL Assessment and Plan Assessment and Plan (1) Hypoxemia: (2) CHF (congestive heart failure): (3) Acute respiratory failure with hypoxia: (4) SHIRA (acute kidney injury): (5) COPD with acute exacerbation: (6) Moderate protein malnutrition: (7) Paroxysmal A-fib: (8) TIA (transient ischemic attack): Plan Admission findings: Acute hypoxic respiratory failure, fever, tachycardia, respiratory distress, O2 sat of 88% on 2 L, white blood cell count normal but with significant left shift, thrombocytopenia resulting in sepsis secondary to right lower lobe pneumonia resulting in acute combined congestive heart failure, the right lower lobe pneumonia would be considered healthcare acquired as patient was discharged 36 hours prior to presenting back to the emergency room Acute combined congestive heart failure-good diuresis with IV Lasix so far so we will maintain that bolus dosing twice daily, check echocardiogram in 2 days Sepsis secondary to right lower lobe pneumonia complicated by acute exacerbation of COPD, healthcare acquired-with acute hypoxic condition with 88% O2 saturation on 2 L,-broad-spectrum antibiotics, aerosol treatments, hold off on steroids secondary to hyperglycemia-unable to give aggressive fluid resuscitation secondary to the acute combined congestive heart failure Thrombocytopenia-this is secondary to the sepsis due to the right lower lobe healthcare acquired pneumonia-monitor daily Down slightly today IDDM-insulin sliding scale Hypertension-continue with home medications Depression-continue with home medications Admission status: Patient with healthcare acquired pneumonia as well as acute combined congestive heart failure, acute hypoxia, medically necessary treatment will span 2 midnights. Inpatient status Urinary Catheter Management Urinary Catheter Management Urethral: Cath placed during this visit: yes Urethral indwelling: No Insertion date: 11/10/24 Insertion time: 21:57
[2024-11-11] MEDS: IPRATROPIUM/ALBUTEROL SULFATE 3 ML AMPUL.NEB IH ×4 (10:52→23:29)
[2024-11-11 11:34] LABS: Glucometer 244 mg/dL (74-106)
[2024-11-11] MEDS: INSULIN ASPART 300 UNIT/3 ML PEN SUBQ (11:51)
[2024-11-11] MEDS: ACETAMINOPHEN 500 MG TABLET 1000 MG PO (16:20)
[2024-11-11 19:53] LABS: Glucometer 116 mg/dL (74-106)
[2024-11-11] MEDS: TRAZODONE HCL 50 MG TABLET PO (21:40)
[2024-11-11] MEDS: ONDANSETRON PF 4 MG/2 ML VIAL IV (21:49)
[2024-11-12] VITALS (29 sets, daily range): BP systolic 101–140; BP diastolic 48–74; PULSE 73–108; TEMP 36.3–38.8; O2SAT 90–98
[2024-11-12] MEDS: IPRATROPIUM/ALBUTEROL SULFATE 3 ML AMPUL.NEB IH ×6 (03:58→23:25)
[2024-11-12] MEDS: IMIPENEM/CILASTATIN SODIUM 1,000 MG in 0.9 % SODIUM CHLORIDE 100 ML 100 MG IV ×4 (04:03→20:40)
[2024-11-12 06:24] LABS: Basophils Percent Auto 0.2 % (0.2-2.0); Eosinophils Percent Auto 0.1 % (0.9-7.0); Immature Granulocytes Abs Auto 0.09 10^3/uL (0.00-0.03); Immature Granulocytes Pct Auto 0.9 % (0.0-0.5); Lymphocytes Absolute Auto 0.7 10^3/uL (1.2-3.8); Lymphocytes Percent Auto 6.9 % (20.5-60.0); Mean Corpuscular HGB Conc 31.4 g/dL (29.9-35.2); Mean Corpuscular Hemoglobin 26.6 pg (26.7-34.0); Mean Corpuscular Volume 84.7 fL (81.0-99.0); Mean Platelet Volume 9.2 fL (9.5-13.5); Monocytes Absolute Auto 0.2 10^3/uL (0.3-0.8); Monocytes Percent Auto 1.6 % (1.7-12.0); Neutrophils Absolute Auto 9.5 10^3/uL (1.4-6.5); Neutrophils Percent Auto 90.3 % (43.0-75.0); Platelet Count 123 10^3/uL (150-450); Red Blood Count 4.13 10^6/uL (4.20-5.40); Red Cell Distribution Width 16.2 % (11.0-15.0); White Blood Count 10.5 10^3/uL (4.0-11.0)
[2024-11-12 06:55] LABS: Anion Gap 13.8; BUN Creatinine Ratio 21.8; Chloride 105 mmol/L (98-107); Estimated GFR (African America 47 (>=60 mL/min/1.73m^2); Estimated GFR (Non-African Ame 39 (>=60 mL/min/1.73m^2); Glucose 156 mg/dL (74-106); Potassium 3.8 mmol/L (3.5-5.1); Sodium 140 mmol/L (136-145); Troponin I High Sensitivity 13.6 pg/mL (4.0-51.3)
--- NOTE | 2024-11-12 07:11 | PC.NURSE ---
updated Dr Flowers at 702 am about elevated BNP and he acknowledged.
--- NOTE | 2024-11-12 07:59 | XR_ITS ---
The [address] [address] Patient Name: CHEY RON MRN: [id number] date: 1950 Sex: F Assigned Patient Location: [place] Current Patient Location: [place] Accession/Order Number: [id number] Exam Date: 11/12/2024 11:06 Report Date: 11/12/2024 11:07 At the request of: AILYN DINH MD Procedure: XR chest 1V Single view chest: CLINICAL HISTORY: follow up on pneumonia COMPARISON: Chest 11/10/2024 FINDINGS: Cardiomegaly is unchanged. Improved aeration of the lungs with persistent bibasilar airspace disease. No pneumothorax or free air. XR/XR chest 1V IMPRESSION: IMPROVED AERATION OF THE LUNGS COMPARED TO THE PRIOR STUDY WITH RESIDUAL BIBASILAR AIRSPACE DISEASE. CONTINUED FOLLOW-UP IS RECOMMENDED TO ENSURE RESOLUTION. Impression dictated by: Ronni Piedra Jr., D.O.11/12/2024 11:07 AM Dictation Location: [employer] Electronically authenticated by: [id number] Y Date: 11/12/2024 11:07
[2024-11-12 08:22] LABS: Glucometer 130 mg/dL (74-106)
--- NOTE | 2024-11-12 09:42 | P.PN_ITS ---
Progress Note: Subjective Subjective Interval history: Pt more sleepy today -refusing two-view chest x-ray will get single view today, patient was still significant hypoxia I had to bump her up to 6 L overnight, but is down to 4 L on rounds this morning Exam Constitutional Vital Signs, click to edit/add: Last Vital Signs Temp 97.3 F L 11/12/24 04:00 Pulse 99 H 11/12/24 07:48 Resp 18 11/12/24 07:43 BP 105/59 11/12/24 04:00 Pulse Ox 97 11/12/24 07:43 O2 Del Method Nasal Cannula 11/12/24 07:43 O2 Flow Rate 3 11/12/24 07:43 Documenting provider has reviewed patient's vital signs: yes Common normals: apparent distress (Mild conversational dyspnea, slightly improved) Respiratory Common normals: abnormal respiratory effort (Mild respiratory distress-slightly improved) Auscultation: rales ([facility] [place]) and rhonchi; no wheezes Cardio Common normals: regular rate and regular rhythm GI Common normals: Normal to inspection, nondistended, normoactive bowel sounds present, soft to palpation and non-tender Extremity Common normals: abnormal to inspection (1+ edema) Progress Note: Objective Labs Labs: Short CBC 11/12/24 Range/Units 06:13 WBC 10.5 (4.0-11.0) 10^3/uL Hgb 11.0 L (12.0-16.0) g/dL Hct 35.0 L (36.0-48.0) % Plt Count 123 L (150-450) 10^3/uL BMP 11/12/24 06:13 Sodium 140 Potassium 3.8 Chloride 105 Carbon Dioxide 25.0 BUN 29.0 H Creatinine 1.33 H Glucose 156 H Calcium 8.0 L Progress Note: A&P Assessment and Plan (1) Hypoxemia: (2) CHF (congestive heart failure): (3) Acute respiratory failure with hypoxia: (4) SHIRA (acute kidney injury): (5) COPD with acute exacerbation: (6) Moderate protein malnutrition: (7) Paroxysmal A-fib: (8) TIA (transient ischemic attack): Plan Admission findings: Acute hypoxic respiratory failure, fever, tachycardia, respiratory distress, O2 sat of 88% on 2 L, white blood cell count normal but with significant left shift, thrombocytopenia resulting in sepsis secondary to right lower lobe pneumonia resulting in acute combined congestive heart failure, the right lower lobe pneumonia would be considered healthcare acquired as patient was discharged 36 hours prior to presenting back to the emergency room Acute combined congestive heart failure-maintain good diuresis, kidney tests are up slightly today, but appears to need more diuresis, echo in a.m., BNP improved Sepsis secondary to right lower lobe pneumonia complicated by acute exacerbation of COPD, healthcare acquired-with acute hypoxic condition with 88% O2 saturation on 2 L,-deteriorated overnight and required 6 L, will repeat chest x-ray today, patient refusing to view, antibiotics were adjusted yesterday, will maintain that additional day, read reviewed tomorrow Thrombocytopenia-improved slightly today Iron deficiency anemia-monitor daily slightly improved IDDM-insulin sliding scale Hypertension-continue with home medications Depression-continue with home medications Admission status: Patient with healthcare acquired pneumonia as well as acute combined congestive heart failure, acute hypoxia, medically necessary treatment will span 2 midnights. Inpatient status Urinary Catheter Management Urinary Catheter Management Urethral: Cath placed during this visit: yes Urethral indwelling: No Insertion date: 11/10/24 Insertion time: 21:57
[2024-11-12] MEDS: FUROSEMIDE 40 MG/4 ML VIAL IVP ×2 (10:05→21:41)
[2024-11-12] MEDS: CANAGLIFLOZIN 100 MG TABLET PO (10:05)
[2024-11-12] MEDS: SPIRONOLACTONE 25 MG TABLET PO (10:06)
[2024-11-12] MEDS: SOLIFENACIN SUCCINATE 10 MG TABLET PO (10:07)
[2024-11-12] MEDS: ATORVASTATIN CALCIUM 20 MG TABLET PO (10:07)
[2024-11-12] MEDS: OSELTAMIVIR PHOSPHATE 30 MG CAPSULE PO (10:07)
[2024-11-12] MEDS: METOPROLOL TARTRATE 50 MG TABLET PO ×2 (10:08→21:41)
[2024-11-12] MEDS: APIXABAN 5 MG TABLET PO ×2 (10:08→21:41)
[2024-11-12] MEDS: LISINOPRIL 5 MG TABLET PO (10:08)
[2024-11-12] MEDS: GLIPIZIDE 5 MG TABLET PO (10:08)
[2024-11-12] MEDS: LINEZOLID IN DEXTROSE 5% 600 MG/300 ML PIGGYBACK 300 MG IV (10:11)
[2024-11-12] MEDS: PANTOPRAZOLE SODIUM 40 MG TABLET.DR PO (10:11)
[2024-11-12] MEDS: DILTIAZEM HCL 240 MG CAP.ER.24H PO (10:11)
[2024-11-12 12:32] LABS: Glucometer 225 mg/dL (74-106)
[2024-11-12] MEDS: INSULIN ASPART 300 UNIT/3 ML PEN SUBQ (12:47)
[2024-11-12 16:58] LABS: Glucometer 123 mg/dL (74-106)
[2024-11-12] MEDS: ACETAMINOPHEN 500 MG TABLET 1000 MG PO (17:37)
[2024-11-12 20:37] LABS: Glucometer 134 mg/dL (74-106)
[2024-11-12] MEDS: 0.9 % SODIUM CHLORIDE 250 ML 10 ML IV (20:41)
[2024-11-12] MEDS: TRAZODONE HCL 50 MG TABLET PO (21:41)
[2024-11-12] MEDS: LINEZOLID IN DEXTROSE 5% 600 MG/300 ML PIGGYBACK 150 MG IV (21:42)
[2024-11-13] VITALS (25 sets, daily range): BP systolic 92–128; BP diastolic 57–70; PULSE 62–96; TEMP 36.5–38.3; O2SAT 86–98
[2024-11-13 01:30] LABS: Bilirubin Urine NEGATIVE (NEGATIVE); Blood Urine TRACE-I (NEGATIVE); Clarity Urine CLEAR (CLEAR); Color Urine YELLOW (YELLOW); Glucose Urine UA NEGATIVE (NEGATIVE); Ketones Urine 15 mg/dL (NEGATIVE); Leukocyte Esterase Urine TRACE (NEGATIVE); Nitrite Urine NEGATIVE (NEGATIVE); Protein Urine 100 mg/dL (NEG/TRACE); Specific Gravity Urine 1.025 (1.005-1.025); Urobilinogen Urine 0.2 EU/dL (0.2-1.0)
[2024-11-13 01:38] LABS: Amorphous Sediment Urine FEW; Bacteria Urine SMALL #/HPF (NONE SEEN); Cast Seen? SEEN #/LPF (NONE SEEN); Crystals Seen? Seen #/HPF (None Seen); Fine Granular Casts Urine FEW; Mucus Urine LARGE (NONE SEEN); RBC Urine 0-2 #/HPF (0-2); Squamous Epithelial Cell Urine RARE #/LPF (NONE/RARE)
[2024-11-13 01:39] LABS: Urine Culture Indicated ALREADY ORDERED
[2024-11-13] MEDS: IMIPENEM/CILASTATIN SODIUM 1,000 MG in 0.9 % SODIUM CHLORIDE 100 ML 100 MG IV (02:06)
[2024-11-13] MEDS: IPRATROPIUM/ALBUTEROL SULFATE 3 ML AMPUL.NEB IH ×4 (04:01→23:08)
[2024-11-13 06:27] LABS: Basophils Percent Auto 0.1 % (0.2-2.0); Eosinophils Percent Auto 0.1 % (0.9-7.0); Hematocrit 34.4 % (36.0-48.0); Hemoglobin 10.9 g/dL (12.0-16.0); Immature Granulocytes Abs Auto 0.11 10^3/uL (0.00-0.03); Immature Granulocytes Pct Auto 1.5 % (0.0-0.5); Lymphocytes Absolute Auto 0.8 10^3/uL (1.2-3.8); Mean Corpuscular HGB Conc 31.7 g/dL (29.9-35.2); Mean Corpuscular Hemoglobin 26.8 pg (26.7-34.0); Mean Corpuscular Volume 84.5 fL (81.0-99.0); Mean Platelet Volume 8.9 fL (9.5-13.5); Monocytes Absolute Auto 0.2 10^3/uL (0.3-0.8); Monocytes Percent Auto 2.2 % (1.7-12.0); Neutrophils Absolute Auto 6.1 10^3/uL (1.4-6.5); Neutrophils Percent Auto 85.1 % (43.0-75.0); Platelet Count 133 10^3/uL (150-450); Red Blood Count 4.07 10^6/uL (4.20-5.40); Red Cell Distribution Width 16.3 % (11.0-15.0); White Blood Count 7.2 10^3/uL (4.0-11.0)
[2024-11-13 06:50] LABS: Anion Gap 11.6; BUN Creatinine Ratio 19.9; Calcium 7.9 mg/dL (8.5-10.1); Carbon Dioxide 27.7 mmol/L (21.0-32.0); Chloride 98 mmol/L (98-107); Estimated GFR (African America 42 (>=60 mL/min/1.73m^2); Estimated GFR (Non-African Ame 35 (>=60 mL/min/1.73m^2); Glucose 139 mg/dL (74-106); Potassium 3.3 mmol/L (3.5-5.1); Sodium 134 mmol/L (136-145); Troponin I High Sensitivity 22.1 pg/mL (4.0-51.3)
--- NOTE | 2024-11-13 06:57 | P.PN_ITS ---
Progress Note: Subjective Subjective Interval history: Patient woke up with nausea and vomiting this morning, possibly secondary to the diuresis. Elevation in creatinine today. Exam Constitutional Vital Signs, click to edit/add: Last Vital Signs Temp 98.6 F 11/13/24 03:27 Pulse 96 H 11/13/24 06:00 Resp 18 11/13/24 04:01 BP 112/67 11/13/24 03:27 Pulse Ox 96 11/13/24 04:01 O2 Del Method Nasal Cannula 11/13/24 04:01 O2 Flow Rate 2 11/13/24 04:01 Documenting provider has reviewed patient's vital signs: yes Common normals: apparent distress (Distress due to nausea) Respiratory Common normals: normal respiratory effort Auscultation: rales (Minimal) and rhonchi; no wheezes Cardio Common normals: regular rate and regular rhythm GI Common normals: Normal to inspection, nondistended, normoactive bowel sounds present, soft to palpation and non-tender Extremity Common normals: normal to inspection (No edema) Progress Note: Objective Labs Labs: Short CBC 11/13/24 Range/Units 06:07 WBC 7.2 (4.0-11.0) 10^3/uL Hgb 10.9 L (12.0-16.0) g/dL Hct 34.4 L (36.0-48.0) % Plt Count 133 L (150-450) 10^3/uL BMP 11/12/24 11/13/24 06:13 06:07 Sodium 140 134 L Potassium 3.8 3.3 L Chloride 105 98 Carbon Dioxide 25.0 27.7 BUN 29.0 H 29.0 H Creatinine 1.33 H 1.46 H Glucose 156 H 139 H Calcium 8.0 L 7.9 L Urine 11/13/24 Range/Units 01:08 Urine Color Yellow (YELLOW) Urine Clarity Clear (CLEAR) Urine pH 5.0 (5.0-9.0) Ur Specific [place] 1.025 (1.005-1.025) Urine Protein 100 A (NEG/TRACE) mg/dL Urine Glucose (UA) Negative (NEGATIVE) mg/dL Progress Note: A&P Assessment and Plan (1) Hypoxemia: (2) CHF (congestive heart failure): (3) Acute respiratory failure with hypoxia: (4) SHIRA (acute kidney injury): (5) COPD with acute exacerbation: (6) Moderate protein malnutrition: (7) Paroxysmal A-fib: (8) TIA (transient ischemic attack): Plan Admission findings: Acute hypoxic respiratory failure, fever, tachycardia, respiratory distress, O2 sat of 88% on 2 L, white blood cell count normal but with significant left shift, thrombocytopenia resulting in sepsis secondary to right lower lobe pneumonia resulting in acute combined congestive heart failure, the right lower lobe pneumonia would be considered healthcare acquired as patient was discharged 36 hours prior to presenting back to the emergency room Acute combined congestive heart failure-I think her diuresis is completed at this point, no peripheral edema lung exam improved-will hold off on further diuresis today and check echo Sepsis secondary to right lower lobe pneumonia complicated by acute exacerbation of COPD, healthcare acquired-with acute hypoxic condition with 88% O2 saturation on 2 L, hypoxia somewhat improved, still with low-grade fevers open maintain current antibiotic regiment Hyperemesis this a.m.-check acute abdominal series, possible ileus related to the diuresis Thrombocytopenia-improved slightly today Iron deficiency anemia-monitor daily slightly improved IDDM-insulin sliding scale Hypertension-continue with home medications Depression-continue with home medications IV access-losing that with only minimal 24-gauge, needs midline Admission status: Patient with healthcare acquired pneumonia as well as acute combined congestive heart failure, acute hypoxia, medically necessary treatment will span 2 midnights. Inpatient status Urinary Catheter Management Urinary Catheter Management Urethral: Cath placed during this visit: yes Urethral indwelling: No Insertion date: 11/10/24 Insertion time: 21:57
--- NOTE | 2024-11-13 08:24 | CM.NOTE ---
Rounds made with Dr. Flowers, pt having nausea and dry heaving this AM when rounding. Dr. Flowers requested RN to give pt zofran. No discharge today, Dr. Flowers will restart fluids today.
[2024-11-13] MEDS: OSELTAMIVIR PHOSPHATE 30 MG CAPSULE PO (08:52)
[2024-11-13] MEDS: ATORVASTATIN CALCIUM 20 MG TABLET PO (08:52)
[2024-11-13] MEDS: IMIPENEM/CILASTATIN SODIUM 500 MG in 0.9 % SODIUM CHLORIDE 100 ML 200 MG IV ×3 (08:52→20:05)
[2024-11-13] MEDS: METOPROLOL TARTRATE 50 MG TABLET PO ×2 (08:52→20:05)
[2024-11-13] MEDS: LISINOPRIL 5 MG TABLET PO (08:52)
[2024-11-13] MEDS: SPIRONOLACTONE 25 MG TABLET PO (08:52)
[2024-11-13] MEDS: APIXABAN 5 MG TABLET PO ×2 (08:52→20:04)
[2024-11-13] MEDS: CANAGLIFLOZIN 100 MG TABLET PO (08:52)
[2024-11-13] MEDS: SOLIFENACIN SUCCINATE 10 MG TABLET PO (08:52)
[2024-11-13] MEDS: GLIPIZIDE 5 MG TABLET PO ×2 (08:52→16:28)
[2024-11-13] MEDS: LINEZOLID IN DEXTROSE 5% 600 MG/300 ML PIGGYBACK 300 MG IV ×2 (08:53→20:05)
[2024-11-13] MEDS: 0.9 % SODIUM CHLORIDE 500 ML IV (08:53)
[2024-11-13] MEDS: DILTIAZEM HCL 240 MG CAP.ER.24H PO (08:54)
[2024-11-13] MEDS: PANTOPRAZOLE SODIUM 40 MG TABLET.DR PO (08:55)
[2024-11-13] MEDS: ACETAMINOPHEN 500 MG TABLET 1000 MG PO (09:12)
--- NOTE | 2024-11-13 10:16 | SWNOTE1 ---
SW spoke with OT and pt refused, not feeling well. Pt also refused physical therapy on Wednesday (11/11/24).
--- NOTE | 2024-11-13 10:35 | CM.NOTE ---
Important Message From Medicare discussed with pt, pt verbalizes understanding and signs paper. Original given to pt and copy placed on pt's chart.
--- NOTE | 2024-11-13 13:23 | SWNOTE1 ---
Pt sleeping at the time SW went in. SW to stop back later today or tomorrow. SW to discuss home health with patient.
--- NOTE | 2024-11-13 15:59 | PC.NURSE ---
[id number] Dr. Flowers notified of patients plt 133,000 and factor V diagnosis, verified he wants mid line placed
[2024-11-13 16:23] LABS: Glucometer 52 mg/dL (74-106)
[2024-11-13 20:11] LABS: Glucometer 85 mg/dL (74-106)
[2024-11-13] MEDS: TRAZODONE HCL 50 MG TABLET PO (21:01)
[2024-11-14] VITALS (22 sets, daily range): BP systolic 99–121; BP diastolic 58–67; PULSE 64–91; TEMP 36.6–38.3; O2SAT 84–98
[2024-11-14] MEDS: IMIPENEM/CILASTATIN SODIUM 500 MG in 0.9 % SODIUM CHLORIDE 100 ML 200 MG IV ×2 (02:00→09:53)
--- NOTE | 2024-11-14 03:01 | PC.NURSE ---
Nurse entered room at 0230 and found pts IV on the bedside table. Nurse asked pt if she removed the IV and she stated yes, I had two of them . Nurse informed pt that it was okay that she had two in and that she should have left them both in.
[2024-11-14] MEDS: IPRATROPIUM/ALBUTEROL SULFATE 3 ML AMPUL.NEB IH ×6 (03:49→23:00)
--- NOTE | 2024-11-14 03:49 | RESP.RT ---
Titrated 02 up to 5L and Sp02 increased to 91%.
[2024-11-14 05:30] LABS: Eosinophils Percent Auto 0.6 % (0.9-7.0); Hematocrit 29.6 % (36.0-48.0); Hemoglobin 9.4 g/dL (12.0-16.0); Immature Granulocytes Abs Auto 0.05 10^3/uL (0.00-0.03); Lymphocytes Absolute Auto 0.4 10^3/uL (1.2-3.8); Lymphocytes Percent Auto 8.2 % (20.5-60.0); Mean Corpuscular HGB Conc 31.8 g/dL (29.9-35.2); Mean Corpuscular Hemoglobin 26.5 pg (26.7-34.0); Mean Corpuscular Volume 83.4 fL (81.0-99.0); Mean Platelet Volume 9.2 fL (9.5-13.5); Monocytes Absolute Auto 0.1 10^3/uL (0.3-0.8); Monocytes Percent Auto 2.1 % (1.7-12.0); Neutrophils Absolute Auto 4.6 10^3/uL (1.4-6.5); Neutrophils Percent Auto 88.1 % (43.0-75.0); Platelet Count 152 10^3/uL (150-450); Red Blood Count 3.55 10^6/uL (4.20-5.40); Red Cell Distribution Width 15.9 % (11.0-15.0); White Blood Count 5.3 10^3/uL (4.0-11.0)
[2024-11-14] MEDS: DEXTROSE 50 %-WATER 25 GM/50 ML SYRINGE IV (06:32)
[2024-11-14 06:35] LABS: Glucometer 36 mg/dL (74-106)
--- NOTE | 2024-11-14 06:43 | P.PN_ITS ---
Progress Note: Subjective Subjective Interval history: Nausea persisting, she states breathing is still difficult at times as well Exam Constitutional Vital Signs, click to edit/add: Last Vital Signs Temp 97.9 F 11/14/24 04:00 Pulse 78 11/14/24 05:53 Resp 18 11/14/24 04:05 BP 121/67 11/14/24 04:00 Pulse Ox 92 L 11/14/24 04:05 O2 Del Method Nasal Cannula 11/14/24 04:05 O2 Flow Rate 5 11/14/24 04:05 Documenting provider has reviewed patient's vital signs: yes Common normals: apparent distress (Nausea) Respiratory Common normals: normal respiratory effort Auscultation: rales ([place]) and rhonchi; no wheezes Cardio Common normals: regular rate and regular rhythm GI Common normals: Normal to inspection, nondistended, normoactive bowel sounds present, soft to palpation and non-tender Extremity Common normals: normal to inspection (No edema) Progress Note: Objective Labs Labs: Short CBC 11/14/24 Range/Units 05:00 WBC 5.3 (4.0-11.0) 10^3/uL Hgb 9.4 L (12.0-16.0) g/dL Hct 29.6 L (36.0-48.0) % Plt Count 152 (150-450) 10^3/uL BMP 11/13/24 06:07 Sodium 134 L Potassium 3.3 L Chloride 98 Carbon Dioxide 27.7 BUN 29.0 H Creatinine 1.46 H Glucose 139 H Calcium 7.9 L Progress Note: A&P Assessment and Plan (1) Hypoxemia: (2) CHF (congestive heart failure): (3) Acute respiratory failure with hypoxia: (4) SHIRA (acute kidney injury): (5) COPD with acute exacerbation: (6) Moderate protein malnutrition: (7) Paroxysmal A-fib: (8) TIA (transient ischemic attack): Plan Admission findings: Acute hypoxic respiratory failure, fever, tachycardia, respiratory distress, O2 sat of 88% on 2 L, white blood cell count normal but with significant left shift, thrombocytopenia resulting in sepsis secondary to right lower lobe pneumonia resulting in acute combined congestive heart failure, the right lower lobe pneumonia would be considered healthcare acquired as patient was discharged 36 hours prior to presenting back to the emergency room Acute combined congestive heart failure-held off on diuresis yesterday and she is a little worse today with increasing supplement to the oxygen to 5 to 6 L., Repeat Lasix today, check CTA, check echo Sepsis secondary to right lower lobe pneumonia complicated by acute exacerbation of COPD, healthcare acquired-hypoxia worse today-change antibiotics, consult to pulmonology Hyperemesis this a.m.-improved but not resolved Thrombocytopenia-improved Iron deficiency anemia-monitor daily slightly improved IDDM-insulin sliding scale Hypertension-continue with home medications Depression-continue with home medications IV access-losing that with only minimal 24-gauge, needs midline Admission status: Patient with healthcare acquired pneumonia as well as acute combined congestive heart failure, acute hypoxia, medically necessary treatment will span 2 midnights. Inpatient status Urinary Catheter Management Urinary Catheter Management Urethral: Cath placed during this visit: yes Urethral indwelling: No Insertion date: 11/10/24 Insertion time: 21:57
[2024-11-14 06:51] LABS: Glucometer 105 mg/dL (74-106)
[2024-11-14 07:27] LABS: Anion Gap 10.5; BUN Creatinine Ratio 18.9; Calcium 7.6 mg/dL (8.5-10.1); Carbon Dioxide 27.5 mmol/L (21.0-32.0); Chloride 97 mmol/L (98-107); Estimated GFR (African America 48 (>=60 mL/min/1.73m^2); Estimated GFR (Non-African Ame 39 (>=60 mL/min/1.73m^2); Glucose 178 mg/dL (74-106); Sodium 132 mmol/L (136-145)
--- NOTE | 2024-11-14 08:38 | CM.NOTE ---
Rounds made with Dr. Flowers, pt continues to require 5L NC oxygen. Dr. Flowers discussed with pt AM labs and obtaining CT chest today.
--- NOTE | 2024-11-14 09:25 | CA_ITS ---
Patient Name: CHEY RON MR#: [id number] : 1950 Exam Date: 11/14/2024 Ordering Doctor: DR Tani Flowers . ECHOCARDIOGRAM REPORT PROCEDURE: CA ECHO LIMITED INDICATIONS: chf, COPD, hypertension, diabetes COMPARISON: None. DESCRIPTION: Limited ECHOCARDIOGRAM Real-time transthoracic echocardiography with 2D and M-mode performed. QUALITY: Technical quality was good. Limited echocardiogram per physician order. LEFT VENTRICLE: Normal chamber size. Mild concentric left ventricular hypertrophy. LV EF: Global left ventricular systolic function is normal; visually estimated ejection fraction is 60 to 65%. No obvious wall motion abnormalities. LEFT ATRIUM: Normal chamber size. RIGHT ATRIUM: Normal chamber size. RIGHT VENTRICLE: Normal chamber size. TRICUSPID VALVE: Normal mobility and thickness. MITRAL VALVE: Normal mobility and thickness. Moderate mitral annular calcification. AORTIC VALVE: Normal trileaflet appearance. AORTIC ROOT: Normal diameter and appearance. PULMONIC VALVE: Normal thickness and mobility. PERICARDIUM: Small anterior pericardial effusion with echodense material suggestive of organized fibrinous material versus clot. CONCLUSION: 1. Global left ventricular systolic function is normal; visually estimated ejection fraction is 60 to 65% 2. Normal right ventricular size and systolic function 3. A small anterior pericardial effusion is seen with echodense material suggestive of organized fibrinous material versus clot A limited echocardiogram was performed Adult Echocardiography Procedure Report Left Ventricle LVEDD (3.7 - 5.6 cm): 4.57 cm LVESD (2.2 - 4.0 cm): 3.78 cm LVIVS thickness (0.6 - 1.2 cm): 1.31 cm LVPW thickness (0.5 - 1.0 cm): 1.26 cm LVOT Diameter 2.21 cm Left Atrium LA Volume Index (2D A2C): 32.59 ml/m2 Left Atrium Systolic Dimension: 3.14 cm Mitral Valve Right Ventricle Aorta AO Root Diam: 2.93 cm Aortic Valve Tricuspid Valve Pulmonic Valve Right Atrium Right Atrium Systolic Pressure: 33.53 ml, 33.53 ml Dictated by: Alfred Suggs M.D. on 11/14/2024 at 14:56 Approved by: Alfred Suggs M.D. on 11/14/2024 at 14:59
[2024-11-14] MEDS: FUROSEMIDE 20 MG/2 ML VIAL 60 MG IVP (09:53)
[2024-11-14] MEDS: LINEZOLID IN DEXTROSE 5% 600 MG/300 ML PIGGYBACK 300 MG IV (09:53)
[2024-11-14] MEDS: GLIPIZIDE 5 MG TABLET PO (09:54)
[2024-11-14] MEDS: PANTOPRAZOLE SODIUM 40 MG TABLET.DR PO (09:54)
[2024-11-14] MEDS: SPIRONOLACTONE 25 MG TABLET PO (09:54)
[2024-11-14] MEDS: METOPROLOL TARTRATE 50 MG TABLET PO ×2 (09:54→22:07)
[2024-11-14] MEDS: LISINOPRIL 5 MG TABLET PO (09:54)
[2024-11-14] MEDS: SOLIFENACIN SUCCINATE 10 MG TABLET PO (09:54)
[2024-11-14] MEDS: APIXABAN 5 MG TABLET PO ×2 (09:54→22:07)
[2024-11-14] MEDS: ATORVASTATIN CALCIUM 20 MG TABLET PO (09:54)
[2024-11-14] MEDS: CANAGLIFLOZIN 100 MG TABLET PO (09:54)
[2024-11-14] MEDS: DILTIAZEM HCL 240 MG CAP.ER.24H PO (09:56)
--- NOTE | 2024-11-14 10:34 | SWNOTE1 ---
SW stopped in room, pt was up and sitting in the chair. SW let pt know that SW assists with discharge planning. SW asked pt if it felt good to be up and in the chair? Pt voiced she is not sure. SW asked pt if she felt she was going to be strong enough to go back home at discharge. She stated she did not know. SW asked if she had ever been to rehab before? She stated no. SW asked if it was recommended if pt would be open to this? Pt stated she did not know. Pt grabbed her bag and voiced she was going to get sick at this time. SW let nurse know. SW to stop back in later today. Pt had call light within reach and advised to call nurse if she needed anything.
--- NOTE | 2024-11-14 12:40 | PM.PLCN ---
History of Present Illness History of Present Illness Consult date: 11/14/24 Requesting physician: Tani Flowers Reason for consult: pneumonia Chief complaint: COUGH SOB Narrative: 74yo female presents with pneumonia. She is a former patient of mine whom I last saw 08/31/2018 for COPD & JARRET; she was lost to F/U and cannot remember why she did not return to the office. Current history consists of admission here @ [facility] 11/07/2024 - 11/09/2024 for influenza A infection with AECOPD. She was discharged home and returned 1 day later with worsening dyspnea and coughing. CXR noted a new RLL infiltrate. She was admitted on 11/10/2024 and has remained in the hospital. Her O2 requirements increased from RA up to ~5L/min. She has been having periodic fever spikes, most recently this AM @ 100.9'F. The patient had difficulty telling me some information - she fell asleep on me after I asked her who her oncologist was - she did not remember what I asked. She has N/V - frequently holds the emesis bag up to her mouth during the encounter, but she is mainly coughing, not gagging. She initially stated her last episode of vomiting was on admission, but then stated it was yesterday (11/13/2024). She had this whining-type moan throughout the encounter - I asked her to stop so I could auscultate her lungs, which she did without any distress. I spoke with RN who made the patient get up into the chair today, as she was not getting out of bed. CTA chest was done this AM. I reviewed the imaging and faxed report - multifocal infiltrates, R > L small effusions, pericardial effusion. Review of Systems ROS Narrative Nauseous, dyspnea, cough. Weak. Status of ROS 10 or more systems reviewed and unremarkable except as noted in history and below [facility] Medical History (Updated 11/14/24 @ 12:56 by Fabian Serrano DO) Moderate protein malnutrition ?E44.0 - Moderate protein-calorie malnutrition (ICD-10) Oropharyngeal dysphagia ?R13.12 - Dysphagia, oropharyngeal phase (ICD-10) Colitis ?K52.9 - Noninfective gastroenteritis and colitis, unspecified (ICD-10) HLD (hyperlipidemia) ?E78.5 - Hyperlipidemia, unspecified (ICD-10) Chronic diastolic heart failure ?I50.32 - Chronic diastolic (congestive) heart failure (ICD-10) Paroxysmal A-fib ?I48.0 - Paroxysmal atrial fibrillation (ICD-10) TIA (transient ischemic attack) ?G45.9 - Transient cerebral ischemic attack, unspecified (ICD-10) CLL (chronic lymphocytic leukemia) ?C91.10 - Chronic lymphocytic leukemia of B-cell type not having achieved remission (ICD-10) Factor 5 Leiden mutation, heterozygous ?D68.51 - Activated protein C resistance (ICD-10) Diabetes ?E11.9 - Type 2 diabetes mellitus without complications (ICD-10) High cholesterol ?E78.00 - Pure hypercholesterolemia, unspecified (ICD-10) Overactive bladder ?N32.81 - Overactive bladder (ICD-10) HTN (hypertension) ?I10 - Essential (primary) hypertension (ICD-10) Surgical History Cataracts, both eyes ?H26.9 - Unspecified cataract (ICD-10) History of cholecystectomy ?Z90.49 - Acquired absence of other specified parts of digestive tract (ICD-10) H/O: hysterectomy ?Z90.710 - Acquired absence of both cervix and uterus (ICD-10) Family History Father Family history of CHF (congestive heart failure) Mother Family history of cancer Family history of hypertension Social History Within the past year, how often did you have a drink containing alcohol: never Score interpretation: A score less than 3 is consistent with normal alcohol consumption. Smoking status: Never smoker Non-prescribed substance use: denies use Previous occupational history: disabled Highest level of school completed/degree received: high school graduate Are you now , , , , never or living with a partner: In a typical week, how many times do you talk on the telephone with family, friends, or neighbors: 3 or more times per week How often do you get together with friends or relatives: 3 or more times per week Little interest or pleasure in doing things: not at all Feeling down, depressed, or hopeless: not at all Feel stressed/tense/nervous/anxious/difficulty sleeping: not at all Do you think of yourself as: decline to answer Gender Identity: female Meds Home Medications and Allergies Home Medications ?Medication ?Instructions ?Recorded ?Confirmed ?Type albuterol sulfate 90 mcg/actuation 2 inh inhalation Q6H PRN shortness 06/03/24 11/10/24 History aerosol inhaler of breath or wheezing apixaban 5 mg tablet (Eliquis) 5 mg PO Q12H 06/03/24 11/10/24 History atorvastatin 20 mg tablet 20 mg PO .QD 06/03/24 11/10/24 History dapagliflozin propanediol 10 mg 10 mg PO .QD 06/03/24 11/10/24 History tablet (Farxiga) diltiazem HCl 240 mg 240 mg PO Q24H 06/03/24 11/10/24 History capsule,extended release 24 hr dulaglutide 1.5 mg/0.5 mL 1.5 mg subcut .WEEKLY 06/03/24 11/10/24 History subcutaneous pen injector ([facility]) lisinopril 5 mg tablet 5 mg PO .QD 06/03/24 11/10/24 History metoprolol tartrate 50 mg tablet 50 mg PO Q12H 06/03/24 11/10/24 History pantoprazole 40 mg tablet,delayed 40 mg PO .Q24 06/03/24 11/10/24 History release trazodone 50 mg tablet 50 mg PO .QHS 06/03/24 11/10/24 History trospium 20 mg tablet 20 mg PO Q12H 06/03/24 11/10/24 History ergocalciferol (vitamin D2) 1,250 1,250 mcg PO QWEEK 11/06/24 11/10/24 History mcg (50,000 unit) capsule glipizide 5 mg tablet 5 mg PO .bidac 11/06/24 11/10/24 History insulin lispro 100 unit/mL 5 unit subcut AC 11/06/24 11/11/24 History subcutaneous pen lancets 33 gauge (OneTouch Delica 11/06/24 11/10/24 History Plus Lancet) pen needle, diabetic 31 gauge x 11/06/24 11/10/24 History 5/16 (BD Ultra-Fine Short Pen Needle) insulin degludec 100 unit/mL (3 15 unit (0.15 mL) subcut .qhs #0 mL 11/09/24 11/10/24 Rx mL) subcutaneous pen (Tresiba FlexTouch U-100 insulin) ipratropium 0.5 mg-albuterol 3 mg 3 ml inhalation Q6H PRN Shortness 11/09/24 11/10/24 Rx (2.5 mg base)/3 mL nebulization Of Breath Or Wheezing 30 days #1 mL soln oseltamivir 30 mg capsule 30 mg PO Q24H 3 days #3 caps 11/09/24 11/10/24 Rx prednisone 20 mg tablet 20 mg PO BID 7 days #14 tabs 11/09/24 11/10/24 Rx Allergies Allergy/AdvReac Type Severity Reaction Status Date / Time oxycodone (From Percocet) Allergy Agitated Verified 11/10/24 16:09 Exam Constitutional Vital Signs, click to edit/add: Last Vital Signs Temp 100.9 F H 11/14/24 09:20 Pulse 81 11/14/24 11:55 Resp 18 11/14/24 09:20 BP 111/61 11/14/24 09:20 Pulse Ox 98 11/14/24 09:20 O2 Del Method Nasal Cannula 11/14/24 09:20 O2 Flow Rate 5 11/14/24 09:20 Other: Laying in bed. Mild whining moan. Does not appear to be in any respiratory distress. HENMT Other: Wearing nasal cannula Respiratory Other: Non-labored breathing. Diminished breath sounds, especially in bases. Mild scattered crackles. No wheezes. Cardio Other: RRR Extremity Other: No significant BLE edema Neuro Other: No noted focal deficits Psych Other: Patient fell asleep in front of me while I was asking her questions. Results Laboratory Findings ABG, PT/INR, D-dimer: PT/INR, D-dimer PT 9.9 sec (9.0-11.6) 11/10/24 20:03 INR 0.93 11/10/24 20:03 Abnormal lab findings: Abnormal Labs 11/10/24 11/11/24 11/11/24 20:03 04:36 06:12 RBC 3.84 L 3.65 L Hgb 10.4 L 9.8 L Hct 32.7 L 30.8 L MCH RDW 16.3 H 16.1 H Plt Count 106 L 88 L MPV 9.3 L Neut % (Auto) 80.8 H Lymph % (Auto) 13.7 L Labette % (Auto) Eos % (Auto) 0.2 L Baso % (Auto) 0.0 L Neut # (Auto) Lymph # (Auto) 0.9 L Labette # (Auto) Abs Immat Gran (auto) 0.05 H Seg Neuts % (Manual) 90.0 H Lymphocytes % (Manual) 7.0 L Eosinophils % (Manual) 0.0 L Basophils % (Manual) 0.0 L Imm/Tot Granulo (auto) 0.8 H Lymphocytes # (Manual) 0.34 L Monocytes # (Manual) 0.14 L Sodium Potassium Chloride 109 H BUN 35.0 H 31.0 H Creatinine 1.26 H Est GFR ( Amer) 50 L Est GFR (Non-Af Amer) 42 L 54 L Glucose 214 H Calcium 8.2 L 8.0 L AST 40 H C-Reactive Protein 4.29 H NT-Pro-B Natriuret Pep 4869.0 H* Total Protein 5.6 L 5.2 L Albumin 2.6 L 2.4 L Urine Protein Urine Ketones Ur Leukocyte Esterase Urine WBC Urine Crystals Urine Bacteria Urine Casts Urine Mucus POC Glucose 11/11/24 11/11/24 11/12/24 11:33 19:46 06:13 RBC 4.13 L Hgb 11.0 L Hct 35.0 L MCH 26.6 L RDW 16.2 H Plt Count 123 L MPV 9.2 L Neut % (Auto) 90.3 H Lymph % (Auto) 6.9 L Labette % (Auto) 1.6 L Eos % (Auto) 0.1 L Baso % (Auto) Neut # (Auto) 9.5 H Lymph # (Auto) 0.7 L Labette # (Auto) 0.2 L Abs Immat Gran (auto) 0.09 H Seg Neuts % (Manual) Lymphocytes % (Manual) Eosinophils % (Manual) Basophils % (Manual) Imm/Tot Granulo (auto) 0.9 H Lymphocytes # (Manual) Monocytes # (Manual) Sodium Potassium Chloride BUN 29.0 H Creatinine 1.33 H Est GFR ( Amer) 47 L Est GFR (Non-Af Amer) 39 L Glucose 156 H Calcium 8.0 L AST C-Reactive Protein NT-Pro-B Natriuret Pep 2429.0 H* Total Protein Albumin Urine Protein Urine Ketones Ur Leukocyte Esterase Urine WBC Urine Crystals Urine Bacteria Urine Casts Urine Mucus POC Glucose 244 H 116 H 11/12/24 11/12/24 11/12/24 08:21 12:31 16:56 RBC Hgb Hct MCH RDW Plt Count MPV Neut % (Auto) Lymph % (Auto) Labette % (Auto) Eos % (Auto) Baso % (Auto) Neut # (Auto) Lymph # (Auto) Labette # (Auto) Abs Immat Gran (auto) Seg Neuts % (Manual) Lymphocytes % (Manual) Eosinophils % (Manual) Basophils % (Manual) Imm/Tot Granulo (auto) Lymphocytes # (Manual) Monocytes # (Manual) Sodium Potassium Chloride BUN Creatinine Est GFR ( Amer) Est GFR (Non-Af Amer) Glucose Calcium AST C-Reactive Protein NT-Pro-B Natriuret Pep Total Protein Albumin Urine Protein Urine Ketones Ur Leukocyte Esterase Urine WBC Urine Crystals Urine Bacteria Urine Casts Urine Mucus POC Glucose 130 H 225 H 123 H 11/12/24 11/13/24 11/13/24 20:28 01:08 06:07 RBC 4.07 L Hgb 10.9 L Hct 34.4 L MCH RDW 16.3 H Plt Count 133 L MPV 8.9 L Neut % (Auto) 85.1 H Lymph % (Auto) 11.0 L Labette % (Auto) Eos % (Auto) 0.1 L Baso % (Auto) 0.1 L Neut # (Auto) Lymph # (Auto) 0.8 L Labette # (Auto) 0.2 L Abs Immat Gran (auto) 0.11 H Seg Neuts % (Manual) Lymphocytes % (Manual) Eosinophils % (Manual) Basophils % (Manual) Imm/Tot Granulo (auto) 1.5 H Lymphocytes # (Manual) Monocytes # (Manual) Sodium 134 L Potassium 3.3 L Chloride BUN 29.0 H Creatinine 1.46 H Est GFR ( Amer) 42 L Est GFR (Non-Af Amer) 35 L Glucose 139 H Calcium 7.9 L AST C-Reactive Protein NT-Pro-B Natriuret Pep 1280.0 H* Total Protein Albumin Urine Protein 100 A Urine Ketones 15 A Ur Leukocyte Esterase Trace A Urine WBC 2-5 A Urine Crystals Seen A Urine Bacteria Small A Urine Casts Seen A Urine Mucus Large A POC Glucose 134 H 11/13/24 11/14/24 11/14/24 16:22 05:00 06:24 RBC 3.55 L Hgb 9.4 L Hct 29.6 L MCH 26.5 L RDW 15.9 H Plt Count MPV 9.2 L Neut % (Auto) 88.1 H Lymph % (Auto) 8.2 L Labette % (Auto) Eos % (Auto) 0.6 L Baso % (Auto) 0.0 L Neut # (Auto) Lymph # (Auto) 0.4 L Labette # (Auto) 0.1 L Abs Immat Gran (auto) 0.05 H Seg Neuts % (Manual) Lymphocytes % (Manual) Eosinophils % (Manual) Basophils % (Manual) Imm/Tot Granulo (auto) 1.0 H Lymphocytes # (Manual) Monocytes # (Manual) Sodium Potassium Chloride BUN Creatinine Est GFR ( Amer) Est GFR (Non-Af Amer) Glucose Calcium AST C-Reactive Protein NT-Pro-B Natriuret Pep Total Protein Albumin Urine Protein Urine Ketones Ur Leukocyte Esterase Urine WBC Urine Crystals Urine Bacteria Urine Casts Urine Mucus POC Glucose 52 L 36 L* 11/14/24 07:00 RBC Hgb Hct MCH RDW Plt Count MPV Neut % (Auto) Lymph % (Auto) Labette % (Auto) Eos % (Auto) Baso % (Auto) Neut # (Auto) Lymph # (Auto) Labette # (Auto) Abs Immat Gran (auto) Seg Neuts % (Manual) Lymphocytes % (Manual) Eosinophils % (Manual) Basophils % (Manual) Imm/Tot Granulo (auto) Lymphocytes # (Manual) Monocytes # (Manual) Sodium 132 L Potassium 3.0 L Chloride 97 L BUN 25.0 H Creatinine 1.32 H Est GFR ( Amer) 48 L Est GFR (Non-Af Amer) 39 L Glucose 178 H Calcium 7.6 L AST C-Reactive Protein NT-Pro-B Natriuret Pep 958.0 H Total Protein Albumin Urine Protein Urine Ketones Ur Leukocyte Esterase Urine WBC Urine Crystals Urine Bacteria Urine Casts Urine Mucus POC Glucose Diagnostic Findings Chest x-ray: report reviewed and image reviewed CT scan - chest: report reviewed and image reviewed Assessment and Plan Assessment and Plan (1) Multifocal pneumonia: Assessment and Plan: 1. Multifocal (bilateral) pneumonia. Present on admission. Initially had influenza diagnosed 11/07/2024 with development of new RLL infiltrate 11/10/2024. Currently being treated as a secondary bacterial pneumonia. She has not had any leukocytosis, but has continued to have temperature spikes, highest 101.2'F on 11/11/2024, and this morning around 9AM @ 100.9'F despite Primaxin and Zyvox. Antibiotics have been changed this AM to Levaquin and Fortaz. There is a history of oropharyngeal dysphagia - question aspiration pneumonitis contributing to periodic fevers. She has N/V, but does not recall a vomiting episode followed by a temperature (though she is not a great historian). Many cultures have not returned. Ordered a respiratory panel to see if she contracted a different non-influenza virus that could explain her symptoms. Testing returned and patient remains positive for influenza A. It is possible she may remain symptomatic despite being treated with Tamiflu, or perhaps a different strain? No other viruses were flagged on the panel. 2. Acute exacerbation of COPD. She was previously on Trelegy when I last saw her 08/29/2018, but she was lost to F/U. Now only appears she has DuoNeb. 3. Acute respiratory failure with hypoxemia. Multifactorial. Baseline is room air - up to 5L/min now. Normal HCO3- on labs - would expect to see an increase in this if she were retaining pCO2. 4. Bilateral pleural effusions. Small, R > L. Most likely associated with volume overload from fluid resuscitation the previous visit causing CHF. Net I/O since admission is -4500mL. No current plans for thoracentesis. She is on Eliquis. CLL. This is currently stable. She is not on any chemotherapy or immunotherapy. She said it is being monitored by someone in [facility]. 5. JARRET. She previously was on PAP therapy. Unclear if she still is using it or not. Can consider PAP therapy if N/V resolve. 6. Acute exacerbation of CHF. Managed by hospitalist. 7. Factor V Leiden. On Eliquis. 8. History of stroke. If she continues to have fevers of unclear source and continued lethargy, consider w/up for stroke (especially thalamic). However, her current clinical situation is highly suggestive of infectious cause, and there are no noted focal deficits at this time that I see.
[2024-11-14 12:49] LABS: Adenovirus NOT DETECTED (NOT DETECTE); Bordetella parapertussis NOT DETECTED (NOT DETECTE); Coronavirus 229E NOT DETECTED (NOT DETECTE); Coronavirus HKU1 NOT DETECTED (NOT DETECTE); Coronavirus NL63 NOT DETECTED (NOT DETECTE); Coronavirus OC43 NOT DETECTED (NOT DETECTE); Human Metapneumovirus NOT DETECTED (NOT DETECTE); Human Rhinovirus/Enterovirus NOT DETECTED (NOT DETECTE); Influenza B NOT DETECTED (NOT DETECTE); Mycoplasma pneumoniae NOT DETECTED (NOT DETECTE); Parainfluenza Virus 1 NOT DETECTED (NOT DETECTE); Parainfluenza Virus 2 NOT DETECTED (NOT DETECTE); Parainfluenza Virus 3 NOT DETECTED (NOT DETECTE); Parainfluenza Virus 4 NOT DETECTED (NOT DETECTE); Respiratory Syncytial Virus NOT DETECTED (NOT DETECTE); SARS-CoV-2 NOT DETECTED (NOT DETECTE)
[2024-11-14] MEDS: LEVOFLOXACIN IN DEXTROSE 5 % 750 MG/150 ML PREMIX 100 MG IV (13:28)
[2024-11-14 13:33] LABS: Glucometer 68 mg/dL (74-106)
[2024-11-14 13:43] LABS: Influenza A\\H1-2009 DETECTED (NOT DETECTE)
[2024-11-14] MEDS: CEFTAZIDIME 2,000 MG in 0.9 % SODIUM CHLORIDE 100 ML 200 MG IV (15:33)
--- NOTE | 2024-11-14 15:49 | SWNOTE1 ---
SW stopped back in to speak with pt, but she is sleeping at this time. SW to stop back in tomorrow.
--- NOTE | 2024-11-14 15:57 | DIETREC ---
Recommend 237 mL Ensure Clear TID.
[2024-11-14 16:42] LABS: Glucometer 47 mg/dL (74-106)
[2024-11-14 17:34] LABS: Glucometer 67 mg/dL (74-106)
[2024-11-14 18:19] LABS: Glucometer 84 mg/dL (74-106)
[2024-11-14 20:51] LABS: Glucometer 63 mg/dL (74-106)
[2024-11-14 21:18] LABS: Glucometer 62 mg/dL (74-106)
[2024-11-14 22:04] LABS: Glucometer 90 mg/dL (74-106)
[2024-11-14] MEDS: TRAZODONE HCL 50 MG TABLET PO (22:06)
[2024-11-14 23:41] LABS: Glucometer 87 mg/dL (74-106)
[2024-11-15] VITALS (25 sets, daily range): BP systolic 85–114; BP diastolic 50–65; PULSE 70–101; TEMP 36.8–37.7; O2SAT 90–98
[2024-11-15 03:07] LABS: Glucometer 47 mg/dL (74-106)
[2024-11-15] MEDS: IPRATROPIUM/ALBUTEROL SULFATE 3 ML AMPUL.NEB IH ×6 (03:57→23:34)
[2024-11-15 04:08] LABS: Glucometer 99 mg/dL (74-106)
[2024-11-15 06:15] LABS: Eosinophils Percent Auto 0.7 % (0.9-7.0); Hematocrit 27.5 % (36.0-48.0); Hemoglobin 8.8 g/dL (12.0-16.0); Immature Granulocytes Abs Auto 0.04 10^3/uL (0.00-0.03); Lymphocytes Absolute Auto 0.5 10^3/uL (1.2-3.8); Lymphocytes Percent Auto 12.7 % (20.5-60.0); Mean Corpuscular Hemoglobin 26.4 pg (26.7-34.0); Mean Corpuscular Volume 82.6 fL (81.0-99.0); Mean Platelet Volume 8.8 fL (9.5-13.5); Monocytes Absolute Auto 0.1 10^3/uL (0.3-0.8); Monocytes Percent Auto 2.9 % (1.7-12.0); Neutrophils Absolute Auto 3.4 10^3/uL (1.4-6.5); Neutrophils Percent Auto 82.7 % (43.0-75.0); Platelet Count 158 10^3/uL (150-450); Red Blood Count 3.33 10^6/uL (4.20-5.40); Red Cell Distribution Width 15.9 % (11.0-15.0); White Blood Count 4.1 10^3/uL (4.0-11.0)
[2024-11-15 06:36] LABS: Anion Gap 12.2; BUN Creatinine Ratio 18.5; Calcium 7.7 mg/dL (8.5-10.1); Carbon Dioxide 27.2 mmol/L (21.0-32.0); Chloride 99 mmol/L (98-107); Estimated GFR (African America 39 (>=60 mL/min/1.73m^2); Estimated GFR (Non-African Ame 32 (>=60 mL/min/1.73m^2); Glucose 81 mg/dL (74-106); Potassium 3.4 mmol/L (3.5-5.1); Sodium 135 mmol/L (136-145)
--- NOTE | 2024-11-15 06:54 | P.PN_ITS ---
Progress Note: Subjective Subjective Interval history: Looks a little bit better than yesterday more awake and alert Exam Constitutional Vital Signs, click to edit/add: Last Vital Signs Temp 98.2 F 11/15/24 03:26 Pulse 73 11/15/24 05:33 Resp 20 11/15/24 04:11 BP 104/50 11/15/24 03:26 Pulse Ox 93 L 11/15/24 04:11 O2 Del Method Nasal Cannula 11/15/24 04:11 O2 Flow Rate 5 11/15/24 04:11 Documenting provider has reviewed patient's vital signs: yes Common normals: apparent distress (Mild respiratory distress) Other: Not moaning today. Does not appear to be in any respiratory distress. HENMT Other: Wearing nasal cannula Chest Common normals: inspection of chest normal and palpation of chest normal Respiratory Common normals: no retractions; abnormal respiratory effort (Mild distress) Auscultation: rhonchi; no rales Cardio Common normals: regular rate, regular rhythm and no murmurs GI Common normals: Normal to inspection, nondistended, normoactive bowel sounds present Extremity Other: No significant BLE edema Neuro Other: Moving well Psych Other: More alert today. Progress Note: Objective Labs Labs: Short CBC 11/15/24 Range/Units 06:03 WBC 4.1 (4.0-11.0) 10^3/uL Hgb 8.8 L (12.0-16.0) g/dL Hct 27.5 L (36.0-48.0) % Plt Count 158 (150-450) 10^3/uL BMP 11/14/24 11/15/24 07:00 06:03 Sodium 132 L 135 L Potassium 3.0 L 3.4 L Chloride 97 L 99 Carbon Dioxide 27.5 27.2 BUN 25.0 H 29.0 H Creatinine 1.32 H 1.57 H Glucose 178 H 81 Calcium 7.6 L 7.7 L Progress Note: A&P Assessment and Plan (1) Multifocal pneumonia: (2) Hypoxemia: (3) CHF (congestive heart failure): (4) Acute respiratory failure with hypoxia: (5) SHIRA (acute kidney injury): (6) COPD with acute exacerbation: (7) Moderate protein malnutrition: (8) Paroxysmal A-fib: (9) TIA (transient ischemic attack): Plan Admission findings: Acute hypoxic respiratory failure, fever, tachycardia, respiratory distress, O2 sat of 88% on 2 L, white blood cell count normal but with significant left shift, thrombocytopenia resulting in sepsis secondary to right lower lobe pneumonia resulting in acute combined congestive heart failure, the right lower lobe pneumonia would be considered healthcare acquired as patient was discharged 36 hours prior to presenting back to the emergency room Acute combined congestive heart failure-creatinine slightly elevated today's will hold off on further diuresis today Sepsis secondary to right lower lobe pneumonia complicated by acute exacerbation of COPD, healthcare acquired-see notes from pulmonology Hyperemesis this a.m.-improved but not resolved Thrombocytopenia-improved Iron deficiency anemia-monitor daily slightly improved IDDM-insulin sliding scale Hypertension-continue with home medications Depression-continue with home medications IV access-losing that with only minimal 24-gauge, needs midline Admission status: Patient with healthcare acquired pneumonia as well as acute combined congestive heart failure, acute hypoxia, medically necessary treatment will span 2 midnights. Inpatient status Urinary Catheter Management Urinary Catheter Management Urethral: Cath placed during this visit: yes Urethral indwelling: No Insertion date: 11/10/24 Insertion time: 21:57
--- NOTE | 2024-11-15 08:51 | CM.NOTE ---
Rounds made with Dr. Flowers, pt more awake this AM, pt feels her breathing is better. Dr. Flowers discussed findings on CT scan and plan of care. Encouraged pt to work with PT today to evaluate needs for discharge, pt verbalizes understanding.
[2024-11-15] MEDS: ATORVASTATIN CALCIUM 20 MG TABLET PO (08:57)
[2024-11-15] MEDS: APIXABAN 5 MG TABLET PO ×2 (08:57→22:21)
[2024-11-15] MEDS: SPIRONOLACTONE 25 MG TABLET PO (08:57)
[2024-11-15] MEDS: POTASSIUM CHLORIDE 10 MEQ ER TABLET 20 MEQ PO ×2 (08:57→22:21)
[2024-11-15] MEDS: SOLIFENACIN SUCCINATE 10 MG TABLET PO (08:57)
[2024-11-15] MEDS: DEXAMETHASONE SOD PHOS 10 MG/ML VIAL IV (08:57)
[2024-11-15] MEDS: PANTOPRAZOLE SODIUM 40 MG TABLET.DR PO (09:00)
--- NOTE | 2024-11-15 10:03 | CM.NOTE ---
2nd Important Message From Medicare discussed with pt, pt denies questions or concerns.
[2024-11-15 11:23] LABS: Glucometer 143 mg/dL (74-106)
--- NOTE | 2024-11-15 12:47 | SWNOTE1 ---
SW stopped in to speak with pt. SW spoke with her about home health and rehab at [facility]. Pt prefers to go home and she has to speak with her son about home health coming in. YELENA highly recommended this to help with transition home and pt benefitting greatly from therapy and a nurse to check on her. Pt is still on oxygen and may need home 02. Pt is going to speak with her son, but he works until 7:00pm. SW to stop back in tomorrow.
--- NOTE | 2024-11-15 13:04 | P.PLPN_ITS ---
Progress Note: A&P Assessment and Plan (1) Multifocal pneumonia: Assessment and Plan: 1. Multifocal (bilateral) pneumonia. Still no cultures available, but was still positive for influenza A yesterday. Cannot rule out secondary bacterial infection. Remains on Fortaz + Levaquin. Seems to be responding to the antibiotic change. Remains ill, but respiratory status does not appear any worse. 2. Acute exacerbation of COPD. Continue current respiratory regimen. 3. Acute respiratory failure with hypoxemia. Continues to require higher O2 flows - 5L/min. 4. Bilateral pleural effusions. Small, R > L. No thoracentesis planned. 5. CLL. 6. JARRET. 7. Acute exacerbation of CHF. Mildly hypotensive today. 8. Factor V Leiden. On Eliquis. 9. History of stroke. Subjective Subjective Interval history: Feeling a little better today. Has gotten out of bed more. More talkative, engaging. Did not fall asleep on me. Coughs frequently - dry cough - does not bother to cover her mouth....... Cultures still pending. Influenza A + on respiratory panel yesterday. Exam Constitutional Vital Signs, click to edit/add: Last Vital Signs Temp 99.5 F 11/15/24 08:05 Pulse 73 11/15/24 11:39 Resp 16 11/15/24 10:21 BP 85/52 L 11/15/24 10:21 Pulse Ox 92 L 11/15/24 11:39 O2 Del Method Nasal Cannula 11/15/24 11:39 O2 Flow Rate 5 11/15/24 11:39 Other: Not moaning today. Does not appear to be in any respiratory distress. [facility] Other: Wearing nasal cannula Respiratory Other: More breath sounds today. Continues to have scattered crackles. No wheezes. Cardio Other: RRR Extremity Other: No significant BLE edema Neuro Other: Moving well Psych Other: More alert today.
[2024-11-15] MEDS: CEFTAZIDIME 2,000 MG in 0.9 % SODIUM CHLORIDE 100 ML 200 MG IV (14:17)
[2024-11-15 16:05] LABS: Glucometer 272 mg/dL (74-106)
[2024-11-15] MEDS: INSULIN ASPART 300 UNIT/3 ML PEN SUBQ ×2 (16:10→22:22)
[2024-11-15 20:16] LABS: Glucometer 403 mg/dL (74-106)
[2024-11-15] MEDS: TRAZODONE HCL 50 MG TABLET PO (22:21)
[2024-11-16] VITALS (25 sets, daily range): BP systolic 104–126; BP diastolic 49–87; PULSE 58–105; TEMP 36.2–37.2; O2SAT 82–98
[2024-11-16 01:08] LABS: Glucometer 446 mg/dL (74-106)
[2024-11-16] MEDS: IPRATROPIUM/ALBUTEROL SULFATE 3 ML AMPUL.NEB IH ×6 (04:03→23:39)
[2024-11-16 06:29] LABS: Hematocrit 27.7 % (36.0-48.0); Hemoglobin 8.8 g/dL (12.0-16.0); Immature Granulocytes Abs Auto 0.03 10^3/uL (0.00-0.03); Immature Granulocytes Pct Auto 0.8 % (0.0-0.5); Lymphocytes Absolute Auto 0.5 10^3/uL (1.2-3.8); Lymphocytes Percent Auto 13.3 % (20.5-60.0); Mean Corpuscular HGB Conc 31.8 g/dL (29.9-35.2); Mean Corpuscular Hemoglobin 26.3 pg (26.7-34.0); Mean Corpuscular Volume 82.9 fL (81.0-99.0); Mean Platelet Volume 8.7 fL (9.5-13.5); Monocytes Absolute Auto 0.1 10^3/uL (0.3-0.8); Monocytes Percent Auto 3.4 % (1.7-12.0); Neutrophils Absolute Auto 2.9 10^3/uL (1.4-6.5); Neutrophils Percent Auto 82.5 % (43.0-75.0); Platelet Count 181 10^3/uL (150-450); Red Blood Count 3.34 10^6/uL (4.20-5.40); Red Cell Distribution Width 16.1 % (11.0-15.0); White Blood Count 3.5 10^3/uL (4.0-11.0)
[2024-11-16 06:49] LABS: Anion Gap 12.6; BUN Creatinine Ratio 23.1; Calcium 8.4 mg/dL (8.5-10.1); Carbon Dioxide 27.1 mmol/L (21.0-32.0); Chloride 103 mmol/L (98-107); Estimated GFR (African America 38 (>=60 mL/min/1.73m^2); Estimated GFR (Non-African Ame 32 (>=60 mL/min/1.73m^2); Glucose 365 mg/dL (74-106); Potassium 4.7 mmol/L (3.5-5.1); Sodium 138 mmol/L (136-145)
--- NOTE | 2024-11-16 07:06 | P.PN_ITS ---
Progress Note: Subjective Subjective Interval history: sleeping more but breathing feels looks better Exam Constitutional Vital Signs, click to edit/add: Last Vital Signs Temp 98.1 F 11/16/24 06:14 Pulse 102 H 11/16/24 06:14 Resp 17 11/16/24 06:14 BP 121/87 11/16/24 06:14 Pulse Ox 98 11/16/24 06:14 O2 Del Method Nasal Cannula 11/16/24 06:14 O2 Flow Rate 2 11/16/24 06:14 Documenting provider has reviewed patient's vital signs: yes Common normals: apparent distress (Mild respiratory distress - some better) HENMT Other: Wearing nasal cannula Chest Common normals: inspection of chest normal and palpation of chest normal Respiratory Common normals: no retractions; abnormal respiratory effort (Mild distress = some better) Auscultation: rhonchi; no rales Cardio Common normals: regular rate, regular rhythm and no murmurs GI Common normals: Normal to inspection, nondistended, normoactive bowel sounds present Extremity Other: No significant BLE edema Neuro Other: Moving well Psych Other: Alert Progress Note: Objective Labs Labs: Short CBC 11/16/24 Range/Units 06:00 WBC 3.5 L (4.0-11.0) 10^3/uL Hgb 8.8 L (12.0-16.0) g/dL Hct 27.7 L (36.0-48.0) % Plt Count 181 (150-450) 10^3/uL BMP 11/16/24 06:00 Sodium 138 Potassium 4.7 Chloride 103 Carbon Dioxide 27.1 BUN 37.0 H Creatinine 1.60 H Glucose 365 H Calcium 8.4 L Progress Note: A&P Assessment and Plan (1) Multifocal pneumonia: (2) Hypoxemia: (3) CHF (congestive heart failure): (4) Acute respiratory failure with hypoxia: (5) SHIRA (acute kidney injury): (6) COPD with acute exacerbation: (7) Moderate protein malnutrition: (8) Paroxysmal A-fib: (9) TIA (transient ischemic attack): Plan Admission findings: Acute hypoxic respiratory failure, fever, tachycardia, respiratory distress, O2 sat of 88% on 2 L, white blood cell count normal but with significant left shift, thrombocytopenia resulting in sepsis secondary to right lower lobe pneumonia resulting in acute combined congestive heart failure, the right lower lobe pneumonia would be considered healthcare acquired as patient was discharged 36 hours prior to presenting back to the emergency room Acute combined congestive heart failure-creatinine slightly elevated again today's will hold off on further diuresis today Sepsis secondary to right lower lobe pneumonia complicated by acute exacerbation of COPD, healthcare acquired-some better after change in ab - able to wean O2 - def better ta day Hyperemesis this a.m.-improved but not resolved Thrombocytopenia-improved Iron deficiency anemia-monitor daily slightly improved IDDM-insulin sliding scale Hypertension-continue with home medications Depression-continue with home medications IV access-losing that with only minimal 24-gauge, needs midline Admission status: Patient with healthcare acquired pneumonia as well as acute combined congestive heart failure, acute hypoxia, medically necessary treatment will span 2 midnights. Inpatient status Urinary Catheter Management Urinary Catheter Management Urethral: Cath placed during this visit: yes Urethral indwelling: No Insertion date: 11/10/24 Insertion time: 21:57
--- NOTE | 2024-11-16 07:18 | P.PLPN_ITS ---
Progress Note: A&P Assessment and Plan (1) Multifocal pneumonia: Assessment and Plan: 1. Multifocal (bilateral) pneumonia. Influenza A + presumptive bacterial co- infection. Continue antibiotics. 2. Acute exacerbation of COPD. Continue current treatment. 3. Acute respiratory failure with hypoxemia. Improved. Weaning O2 down. May still require O2 @ discharge. 4. Bilateral pleural effusions. Small, R > L. No thoracentesis planned. 5. CLL. 6. JARRET. 7. Acute exacerbation of CHF. 8. Factor V Leiden. On Eliquis. 9. History of stroke. Plan Patient is showing signs of improvement. Major concern is lack of motivation to be active on the patient's part. Subjective Subjective Interval history: Feeling a little better. Discussed with RN, RT. She is not moving around much. Able to wean down FiO2 to 2L/min @ rest. No new issues overnight. Exam Constitutional Vital Signs, click to edit/add: Last Vital Signs Temp 98.1 F 11/16/24 06:14 Pulse 102 H 11/16/24 06:14 Resp 17 11/16/24 06:14 BP 121/87 11/16/24 06:14 Pulse Ox 98 11/16/24 06:14 O2 Del Method Nasal Cannula 11/16/24 06:14 O2 Flow Rate 2 11/16/24 06:14 Other: No distress at this time. HENMT Other: Wearing nasal cannula Respiratory Other: Improved breath sounds. Decreased crackles. No wheezes. Coughs but makes no effort to cover her mouth... Cardio Other: RRR Extremity Other: No significant BLE edema Neuro Other: Moving well Psych Other: Alert
[2024-11-16 07:39] LABS: Glucometer 363 mg/dL (74-106)
[2024-11-16] MEDS: GLIPIZIDE 5 MG TABLET PO (08:59)
[2024-11-16] MEDS: SPIRONOLACTONE 25 MG TABLET PO (09:00)
[2024-11-16] MEDS: ATORVASTATIN CALCIUM 20 MG TABLET PO (09:00)
[2024-11-16] MEDS: CANAGLIFLOZIN 100 MG TABLET PO (09:00)
[2024-11-16] MEDS: METOPROLOL TARTRATE 50 MG TABLET PO (09:00)
[2024-11-16] MEDS: APIXABAN 5 MG TABLET PO ×2 (09:00→22:11)
[2024-11-16] MEDS: SOLIFENACIN SUCCINATE 10 MG TABLET PO (09:00)
[2024-11-16] MEDS: POTASSIUM CHLORIDE 10 MEQ ER TABLET 20 MEQ PO ×2 (09:00→22:11)
[2024-11-16] MEDS: DILTIAZEM HCL 240 MG CAP.ER.24H PO (09:00)
[2024-11-16] MEDS: PANTOPRAZOLE SODIUM 40 MG TABLET.DR PO (09:00)
[2024-11-16] MEDS: LISINOPRIL 5 MG TABLET PO (09:00)
[2024-11-16] MEDS: INSULIN ASPART 300 UNIT/3 ML PEN SUBQ ×2 (09:03→12:20)
--- NOTE | 2024-11-16 09:44 | CM.NOTE ---
Rounds made with Dr. Flowers, discussed with pt plan of care and possible need of skilled therapy at discharge. Pt is open to skilled therapy, Case Management or SW will speak with pt and give choices. No discharge today.
[2024-11-16 10:54] LABS: Glucometer 328 mg/dL (74-106)
--- NOTE | 2024-11-16 11:45 | PT.DAILY ---
Physical Therapy Daily Note PT Daily Note/Assess Start: 11/16/24 11:42 Freq: Status: Active Protocol: Document 11/16/24 11:30 VU (Rec: 11/16/24 11:45 [id number]) Physical Therapy Daily Note/Assessment Time In/Time Out Time In 11:30 Time Out 11:40 Subjective Subjective Patient declines to ambulate due to bowel issues but agrees to strengthening issues in bed this morning. Therapeutic Exercise Time Therapeutic Exercise 10 Minutes (minutes) Therapeutic Exercise 1 Units Therapeutic Exercise Treatment Therapeutic Exercise Supine exercises with isometrics and AROM in all planes Treatment to promote LE strength. Patient completes 10 reps of exercises. Total Physical Therapy Time Total Therapy 10 Minutes Total Physical 1 Therapy Units Summary Daily Note Summary Agrees to strengthening exercises in bed, declines to get up for ambulation due to bowel issues. Patient will requires skilled rehab at [facility] due to weakness, and decreased ability with transfers and gait.
--- NOTE | 2024-11-16 11:49 | SWNOTE1 ---
SW spoke to pt in regards to rehab. Doctor did speak with her this morning and she is agreeable. Pt lives here in [place] and she would like wherever the doctor recommends. SW to call [facility] as she wants to stay in [place]. [facility] will have an opening tomorrow. SW to send referral. Referral sent to [facility]. Referral included face sheet, ED note, H&P, provider notes, case management report, nursing notes, diagnostic imaging, med list, pulmonology notes, and PT/OT notes.
[2024-11-16] MEDS: LEVOFLOXACIN IN DEXTROSE 5 % 750 MG/150 ML PREMIX 100 MG IV (12:19)
[2024-11-16] MEDS: 0.9 % SODIUM CHLORIDE 250 ML 10 ML IV (12:22)
--- NOTE | 2024-11-16 12:37 | OT.DAILY ---
Occupational Therapy Daily Note OT Inpatient Daily Visit Note Start: 11/15/24 10:59 Freq: Status: Active Protocol: Document 11/16/24 12:35 [id number] (Rec: 11/16/24 12:37 [id number]) Visit Not Completed Visit Not Completed Visit Not Completed Pt refusing Due to: Other Reason Visit Refused due to loose stools, minimal nausea. Will Not Completed attempt at a later time/date. OT Visit Details Time In/Time Out Time In 12:30 Time Out 12:33 GG. Functional Abilities and Goals-Complete for Swing Bed Patients Only [id number]. Self-Care [id number]. Mobility
[2024-11-16] MEDS: CEFTAZIDIME 2,000 MG in 0.9 % SODIUM CHLORIDE 100 ML 200 MG IV (13:53)
--- NOTE | 2024-11-16 14:25 | SWNOTE1 ---
YELENA heard back from Jasmyne at [facility] and they are accepting and starting precert.
--- NOTE | 2024-11-16 15:46 | SWNOTE1 ---
YELENA received a call from Jasmyne at [facility] and pt is already approved to go to [facility]. [facility] will NOT have a bed open until tomorrow. YELENA let doctor and nurse know.
[2024-11-16 16:23] LABS: Glucometer 162 mg/dL (74-106)
[2024-11-16 20:04] LABS: Glucometer 315 mg/dL (74-106)
[2024-11-16] MEDS: TRAZODONE HCL 50 MG TABLET PO (22:11)
[2024-11-16] MEDS: INSULIN GLARGINE 300 UNIT/3 ML INSULN.PEN 15 UNIT SQ (23:07)
[2024-11-17] VITALS (10 sets, daily range): BP systolic 110–113; BP diastolic 49–60; PULSE 68–98; TEMP 36.3–36.6; O2SAT 95–96; BMI 24.2
[2024-11-17] MEDS: IPRATROPIUM/ALBUTEROL SULFATE 3 ML AMPUL.NEB IH ×2 (03:59→07:34)
[2024-11-17 06:29] LABS: Glucometer 282 mg/dL (74-106)
[2024-11-17 06:32] LABS: Hematocrit 26.4 % (36.0-48.0); Hemoglobin 8.2 g/dL (12.0-16.0); Immature Granulocytes Abs Auto 0.04 10^3/uL (0.00-0.03); Immature Granulocytes Pct Auto 0.6 % (0.0-0.5); Lymphocytes Absolute Auto 0.8 10^3/uL (1.2-3.8); Lymphocytes Percent Auto 11.7 % (20.5-60.0); Mean Corpuscular HGB Conc 31.1 g/dL (29.9-35.2); Mean Corpuscular Hemoglobin 26.7 pg (26.7-34.0); Mean Platelet Volume 8.8 fL (9.5-13.5); Monocytes Absolute Auto 0.3 10^3/uL (0.3-0.8); Monocytes Percent Auto 4.2 % (1.7-12.0); Neutrophils Absolute Auto 5.4 10^3/uL (1.4-6.5); Neutrophils Percent Auto 83.5 % (43.0-75.0); Platelet Count 206 10^3/uL (150-450); Red Blood Count 3.07 10^6/uL (4.20-5.40); Red Cell Distribution Width 16.6 % (11.0-15.0); White Blood Count 6.5 10^3/uL (4.0-11.0)
[2024-11-17 06:53] LABS: BUN Creatinine Ratio 24.8; Calcium 8.2 mg/dL (8.5-10.1); Chloride 107 mmol/L (98-107); Estimated GFR (African America 37 (>=60 mL/min/1.73m^2); Estimated GFR (Non-African Ame 30 (>=60 mL/min/1.73m^2); Glucose 259 mg/dL (74-106); Sodium 141 mmol/L (136-145)
--- NOTE | 2024-11-17 06:55 | P.PN_ITS ---
Progress Note: Subjective Subjective Interval history: sleeping more but breathing feels looks better Exam Constitutional Vital Signs, click to edit/add: Last Vital Signs Temp 97.4 F L 11/17/24 04:00 Pulse 93 H 11/17/24 06:00 Resp 15 11/17/24 04:00 BP 113/60 11/17/24 04:00 Pulse Ox 96 11/17/24 04:00 O2 Del Method Nasal Cannula 11/17/24 04:40 O2 Flow Rate 1 11/17/24 04:40 Progress Note: Objective Labs Labs: Short CBC 11/17/24 Range/Units 06:10 WBC 6.5 (4.0-11.0) 10^3/uL Hgb 8.2 L (12.0-16.0) g/dL Hct 26.4 L (36.0-48.0) % Plt Count 206 (150-450) 10^3/uL Progress Note: A&P Assessment and Plan (1) Multifocal pneumonia: (2) Hypoxemia: (3) CHF (congestive heart failure): (4) Acute respiratory failure with hypoxia: (5) SHIRA (acute kidney injury): (6) COPD with acute exacerbation: (7) Moderate protein malnutrition: (8) Paroxysmal A-fib: (9) TIA (transient ischemic attack): Plan Admission findings: Acute hypoxic respiratory failure, fever, tachycardia, respiratory distress, O2 sat of 88% on 2 L, white blood cell count normal but with significant left shift, thrombocytopenia resulting in sepsis secondary to right lower lobe pneumonia resulting in acute combined congestive heart failure, the right lower lobe pneumonia would be considered healthcare acquired as patient was discharged 36 hours prior to presenting back to the emergency room Acute combined congestive heart failure-creatinine slightly elevated again today's will hold off on further diuresis today Sepsis secondary to right lower lobe pneumonia complicated by acute exacerbation of COPD, healthcare acquired-some better after change in ab - able to wean O2 - def better tahn prev day Hyperemesis this a.m.-improved but not resolved Thrombocytopenia-improved Iron deficiency anemia-monitor daily slightly improved IDDM-insulin sliding scale Hypertension-continue with home medications Depression-continue with home medications IV access-losing that with only minimal 24-gauge, needs midline Admission status: Patient with healthcare acquired pneumonia as well as acute combined congestive heart failure, acute hypoxia, medically necessary treatment will span 2 midnights. Inpatient status Urinary Catheter Management Urinary Catheter Management Urethral: Cath placed during this visit: yes Urethral indwelling: No Insertion date: 11/10/24 Insertion time: 21:57
[2024-11-17 07:34] LABS: Glucometer 268 mg/dL (74-106)
[2024-11-17] MEDS: FERROUS SULFATE 325 MG TABLET PO (08:21)
[2024-11-17] MEDS: ATORVASTATIN CALCIUM 20 MG TABLET PO (08:21)
[2024-11-17] MEDS: POTASSIUM CHLORIDE 10 MEQ ER TABLET 20 MEQ PO (08:21)
[2024-11-17] MEDS: SPIRONOLACTONE 25 MG TABLET PO (08:22)
[2024-11-17] MEDS: GLIPIZIDE 5 MG TABLET PO (08:22)
[2024-11-17] MEDS: SOLIFENACIN SUCCINATE 10 MG TABLET PO (08:22)
[2024-11-17] MEDS: LISINOPRIL 5 MG TABLET PO (08:22)
[2024-11-17] MEDS: APIXABAN 5 MG TABLET PO (08:23)
[2024-11-17] MEDS: CANAGLIFLOZIN 100 MG TABLET PO (08:23)
[2024-11-17] MEDS: METOPROLOL TARTRATE 50 MG TABLET PO (08:23)
[2024-11-17] MEDS: INSULIN ASPART 300 UNIT/3 ML PEN SUBQ (08:26)
[2024-11-17] MEDS: DILTIAZEM HCL 240 MG CAP.ER.24H PO (08:27)
[2024-11-17] MEDS: GUAIFENESIN 200 MG/DEXTROMETHORPHAN 20 MG 10 ML UNIT DOSE CUP PO (08:27)
[2024-11-17] MEDS: PANTOPRAZOLE SODIUM 40 MG TABLET.DR PO (08:27)
[2024-11-17] MEDS: BENZONATATE 100 MG CAPSULE 200 MG PO (08:27)
--- NOTE | 2024-11-17 08:43 | CM.NOTE ---
Rounds made with Dr. Flowers. Plan for discharge today to [facility]. Understanding verbalized.
--- NOTE | 2024-11-17 09:09 | P.DS_ITS ---
DS: Providers Provider Date of admission: 11/10/24 23:40 Primary care physician: TJ CURRY Consults: 11/11/24 Consult to Dietitian Routine Reason for consultation: nutrition Has provider been notified: Yes 11/11/24 07:53 Consult to Pharmacy Routine Consulting Provider: Reason for consultation: Please Polaris me when Med Rec is Updated Has provider been notified: No Occupational Therapy Eval and Treat Routine Reason for consultation: Only if needed for Rehab Has provider been notified: No Physical Therapy Eval and Treat Routine Reason for consultation: Eval and Treat Has provider been notified: No 11/14/24 09:51 Consult to Pulmonology Routine Consulting Provider: Fabian Serrano Reason for consultation: progressive HCAP Has provider been notified: No 11/15/24 10:16 Occupational Therapy Eval and Treat Routine Reason for consultation: eval and treat - rehab Has provider been notified: No Physical Therapy Eval and Treat Routine Reason for consultation: eval and treat Has provider been notified: No DS: Diagnosis Discharge Diagnosis (1) Multifocal pneumonia: (2) Hypoxemia: (3) CHF (congestive heart failure): (4) Acute respiratory failure with hypoxia: (5) SHIRA (acute kidney injury): (6) COPD with acute exacerbation: (7) Moderate protein malnutrition: (8) Paroxysmal A-fib: (9) TIA (transient ischemic attack): Plan Admission findings: Acute hypoxic respiratory failure, fever, tachycardia, respiratory distress, O2 sat of 88% on 2 L, white blood cell count normal but with significant left shift, thrombocytopenia resulting in sepsis secondary to right lower lobe pneumonia resulting in acute combined congestive heart failure, the right lower lobe pneumonia would be considered healthcare acquired as patient was discharged 36 hours prior to presenting back to the emergency room Acute combined congestive heart failure-creatinine slightly elevated again today's will hold off on further diuresis today Sepsis secondary to right lower lobe pneumonia complicated by acute exacerbation of COPD, healthcare acquired-some better after change in ab - able to wean O2 - def better tahn prev day Hyperemesis this a.m.-improved but not resolved Thrombocytopenia-improved Iron deficiency anemia-monitor daily slightly improved IDDM-insulin sliding scale Hypertension-continue with home medications Depression-continue with home medications IV access-losing that with only minimal 24-gauge, needs midline Admission status: Patient with healthcare acquired pneumonia as well as acute combined congestive heart failure, acute hypoxia, medically necessary treatment will span 2 midnights. Inpatient status DS: Summary Hospital Course Hospital Course: Patient admitted after recent discharge, found to have healthcare acquired pneumonia as well as acute combined congestive heart failure, initially placed on IV antibiotics without improvement over the first 3 days, diuresed well and BNP improved to normal, echocardiogram was unremarkable, antibiotics were changed 3 days ago and she has had significant improvement since that time. She is no longer febrile, no longer requiring supplemental oxygen, at this point she can be discharged to rehab in improving condition. Medications see list. Follow-up with her PCP postdischarge from rehab Time Spent with Patient Time attestation: Total time spent providing and/or coordinating discharge services: Exam Constitutional Vital Signs, click to edit/add: Last Vital Signs Temp 97.8 F 11/17/24 08:00 Pulse 87 11/17/24 08:00 Resp 16 11/17/24 08:00 BP 110/49 11/17/24 08:27 Pulse Ox 96 11/17/24 08:00 O2 Del Method Room Air 11/17/24 08:00 O2 Flow Rate 1 11/17/24 04:40 Documenting provider has reviewed patient's vital signs: yes Common normals: no apparent distress (No longer distressed) HENMT Other: Wearing nasal cannula Chest Common normals: inspection of chest normal and palpation of chest normal Respiratory Common normals: normal respiratory effort (No longer distressed) and no retractions Auscultation: rhonchi (Minimal); no rales Cardio Common normals: regular rate, regular rhythm and no murmurs GI Common normals: Normal to inspection, nondistended, normoactive bowel sounds present Extremity Other: No significant BLE edema Neuro Other: Moving well Psych Other: Alert DS: Data Data Completed and Pending Labs on day of discharge: Labs from last 24 hours 11/17/24 11/17/24 11/17/24 07:30 06:19 06:10 WBC 6.5 RBC 3.07 L Hgb 8.2 L Hct 26.4 L MCV 86.0 MCH 26.7 MCHC 31.1 RDW 16.6 H Plt Count 206 MPV 8.8 L Neut % (Auto) 83.5 H Lymph % (Auto) 11.7 L [place] % (Auto) 4.2 Eos % (Auto) 0.0 L Baso % (Auto) 0.0 L Neut # (Auto) 5.4 Lymph # (Auto) 0.8 L [place] # (Auto) 0.3 Eos # (Auto) 0.0 Baso # (Auto) 0.0 Abs Immat Gran (auto) 0.04 H Imm/Tot Granulo (auto) 0.6 H Sodium 141 Potassium 5.0 Chloride 107 Carbon Dioxide 26.0 Anion Gap 13.0 BUN 41.0 H Creatinine 1.65 H Est GFR ( Amer) 37 L Est GFR (Non-Af Amer) 30 L BUN/Creatinine Ratio 24.8 Glucose 259 H Calcium 8.2 L NT-Pro-B Natriuret Pep 1091.0 H POC Glucose 268 H 282 H 11/16/24 11/16/24 11/16/24 19:53 16:22 10:51 WBC RBC Hgb Hct MCV MCH MCHC RDW Plt Count MPV Neut % (Auto) Lymph % (Auto) [place] % (Auto) Eos % (Auto) Baso % (Auto) Neut # (Auto) Lymph # (Auto) [place] # (Auto) Eos # (Auto) Baso # (Auto) Abs Immat Gran (auto) Imm/Tot Granulo (auto) Sodium Potassium Chloride Carbon Dioxide Anion Gap BUN Creatinine Est GFR ( Amer) Est GFR (Non-Af Amer) BUN/Creatinine Ratio Glucose Calcium NT-Pro-B Natriuret Pep POC Glucose 315 H 162 H 328 H Preliminary micro results at discharge 11/11/24 17:00 Blood Culture Result 2 - Preliminary Blood NO GROWTH AT 36-48 HOURS. FINAL TO FOLLOW. Discharge Plan Discharge Disposition: Xfer SNF Discharge Medications: New ferrous sulfate 325 mg (65 mg iron) Tablet 325 mg PO BID Qty: 60 11RF levofloxacin 750 mg tablet 750 mg PO DAILY 7 Days Qty: 7 0RF Continued Eliquis 5 mg tablet 5 mg PO Q12H Trulicity 1.5 mg/0.5 mL pen injector 1.5 mg SUBCUT .WEEKLY atorvastatin 20 mg tablet 20 mg PO .QD diltiazem HCl 240 mg capsule,extended release 24hr 240 mg PO Q24H dapagliflozin propanediol [Farxiga] 10 mg tablet 10 mg PO .QD lisinopril 5 mg tablet 5 mg PO .QD metoprolol tartrate 50 mg tablet 50 mg PO Q12H pantoprazole 40 mg tablet,delayed release (DR/EC) 40 mg PO .Q24 trazodone 50 mg tablet 50 mg PO .QHS trospium 20 mg tablet 20 mg PO Q12H albuterol sulfate 90 mcg/actuation HFA aerosol inhaler 2 inh inhalation Q6H PRN (Reason: shortness of breath or wheezing) ergocalciferol (vitamin D2) 1,250 mcg (50,000 unit) capsule 1,250 mcg PO QWEEK glipizide 5 mg tablet 5 mg PO .bidac insulin lispro 100 unit/mL insulin pen 5 unit SUBCUT AC (DME) pen needle, diabetic [BD Ultra-Fine Short Pen Needle] 31 gauge x 5/16 needle MISCELLANEOUS (DME) lancets [OneTouch Delica Plus Lancet] 33 gauge misc MISCELLANEOUS ipratropium-albuterol 0.5 mg-3 mg(2.5 mg base)/3 mL Solution For Nebulization 3 ml inhalation Q6H PRN (Reason: Shortness Of Breath Or Wheezing) 30 Days Qty: 1 0RF Rx Instructions: dispense 1 box please oseltamivir 30 mg Capsule 30 mg PO Q24H 3 Days Qty: 3 0RF insulin degludec [Tresiba FlexTouch U-100] 100 unit/mL (3 mL) insulin pen 15 unit SUBCUT .qhs Qty: 0 0RF Discontinued prednisone 20 mg tablet 20 mg PO BID 7 Days Qty: 14 0RF Print Language: Barbadian Building Rental Manager/Net Sorter Instructions: Discharge to [facility] skilled Forms: Portal Instructions
--- NOTE | 2024-11-17 10:13 | SWNOTE1 ---
Pt is stable for discharge today. SW spoke to pt to see how she wanted to be transported, she was agreeable to wheelchair. SW asked [facility] if they had transport and they do not today. YELENA called and set up trips for 11:30-12. SW notified nurse and [facility] of time. SW sent dc med rec to [facility] and completed HENS. SW took packet to floor. Pt is going skilled to [facility].
--- NOTE | 2024-11-17 11:57 | PC.NURSE ---
report given to nadia at the [facility], all questions answered
== END 2024-11-17 11:45 | DRG 871 ==
LOC: ER 21:20 → MS 23:44
PROVIDERS: Internal Medicine; Registered Nurse; Admitting Provider Family Medicine; Emergency Provider Emergency Medicine; Visit Provider Family Medicine
DX: A41.9 Sepsis, unspecified organism (principal); I50.33 Acute on chronic diastolic (congestive) heart failure; J96.01 Acute respiratory failure with hypoxia; J15.9 Unspecified bacterial pneumonia; J10.08 Influenza due to other identified influenza virus with other specified pneumonia; J44.1 Chronic obstructive pulmonary disease with (acute) exacerbation; J44.0 Chronic obstructive pulmonary disease with (acute) lower respiratory infection; C91.10 Chronic lymphocytic leukemia of B-cell type not having achieved remission; D68.51 Activated protein C resistance; N17.9 Acute kidney failure, unspecified; E44.0 Moderate protein-calorie malnutrition; Y95 Nosocomial condition; D69.59 Other secondary thrombocytopenia; F32.A Depression, unspecified; D50.9 Iron deficiency anemia, unspecified; R11.2 Nausea with vomiting, unspecified; G47.33 Obstructive sleep apnea (adult) (pediatric); I11.0 Hypertensive heart disease with heart failure; I48.0 Paroxysmal atrial fibrillation; E78.00 Pure hypercholesterolemia, unspecified; E11.9 Type 2 diabetes mellitus without complications; N32.81 Overactive bladder; Z86.73 Personal history of transient ischemic attack (TIA), and cerebral infarction without residual deficits; Z79.01 Long term (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 anticoagulants; Z79.899 Other long term (current) drug therapy; Z79.84 Long term (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 oral hypoglycemic drugs; Z79.85 Long-term (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 injectable non-insulin antidiabetic drugs; Z79.4 Long term (current) use of insulin; Z88.5 Allergy status to narcotic agent; Z68.24 Body mass index [BMI] 24.0-24.9, adult
CPT/HCPCS: 36410; 36415; 36592; 51702; 71045; 71046; 71275; 74022; 80048; 80053; 81001; 82948; 83605; 83631; 83735; 83880; 84484; 85007; 85025; 85027; 85610; 86140; 87040; 87045; 87046; 87070; 87086; 87205; 87420; 87427; 87493; 87811; 93005; 93308; 94640; 94667; 94668; 94761; 96365; 96366; 96368; 96375; 97110; 97112; 97161; 97165; 97535; 99285; 0202U; C1887; J0456; J0696; J0713; J0743; J1100; J1940; J2020; J2405; J2919; J3370; Q9967

== ENCOUNTER 2025-04-13 10:43 | Outpatient (OUT) | payer MEDICARE, MEDICAID, SELFPAY ==
--- NOTE | 2025-04-13 | MM_ITS ---
Patient Name: CHEY RON MR#: [id number] : 1950 Exam Date: 04/13/2025 Ordering Doctor: VADIM RAMOS CNP RADIOLOGY REPORT PROCEDURE: MM TOMOSYNTHESIS SCREENING BI COMPARISON: MM TOMOSYNTHESIS SCREENING BI, 03/08/2024. INDICATIONS: Screening for malignancy of breast Calculator Name NCI Breast Cancer Risk Assessment Tool 5 Year Breast Cancer Risk Not Reported. Lifetime Breast Cancer Risk Not Reported. Personal Breast Cancer No Personal Ovarian Cancer No Treatments None Family Cancers None LOCATION: [facility] BREAST COMPOSITION: There are scattered areas of fibroglandular density. FINDINGS: DIAGNOSTIC CATEGORY 1--NEGATIVE. RIGHT BREAST: No significant suspicious finding. LEFT BREAST: No significant suspicious finding. RECOMMENDATIONS: ROUTINE MAMMOGRAM AND CLINICAL EVALUATION IN 12 MONTHS. PLEASE NOTE: A NORMAL MAMMOGRAM DOES NOT EXCLUDE THE POSSIBILITY OF BREAST CANCER. A CLINICALLY SUSPICIOUS PALPABLE LUMP SHOULD BE BIOPSIED. Dictated by: Ronni Piedra DO on 04/13/2025 at 15:51 Approved by: Ronni Piedra DO on 04/13/2025 at 15:58
[2025-04-13 11:56] LABS: Alanine Aminotransferase 90 U/L (14-59); Albumin Level 3.3 g/dL (3.4-5.0); Alkaline Phosphatase 132 U/L (46-116); Anion Gap 16.3; Aspartate Amino Transferase 32 U/L (15-37); Blood Urea Nitrogen 19.0 mg/dL (7.0-18.0); Calcium 8.8 mg/dL (8.5-10.1); Carbon Dioxide 22.1 mmol/L (21.0-32.0); Chloride 110 mmol/L (98-107); Estimated GFR (African America >60 (>=60 mL/min/1.73m^2); Estimated GFR (Non-African Ame 57 (>=60 mL/min/1.73m^2); Globulin 3.1 g/dL; Glucose 151 mg/dL (74-106); Potassium 4.4 mmol/L (3.5-5.1); Sodium 144 mmol/L (136-145); Total Protein 6.4 g/dL (6.4-8.2)
[2025-04-13 11:57] LABS: Albumin Globulin Ratio 1.1
[2025-04-13 12:01] LABS: Hematocrit 34.4 % (36.0-48.0); Hemoglobin 10.0 g/dL (12.0-16.0); Immature Granulocytes Abs Auto 0.09 10^3/uL (0.00-0.03); Immature Granulocytes Pct Auto 0.6 % (0.0-0.5); Lymphocytes Absolute Auto 4.9 10^3/uL (1.2-3.8); Mean Corpuscular HGB Conc 29.1 g/dL (29.9-35.2); Mean Corpuscular Hemoglobin 21.6 pg (26.7-34.0); Mean Corpuscular Volume 74.3 fL (81.0-99.0); Platelet Count 268 10^3/uL (150-450); Red Blood Count 4.63 10^6/uL (4.20-5.40); White Blood Count 15.1 10^3/uL (4.0-11.0)
[2025-04-13 12:13] LABS: Iron 19.0 ug/dL (50.0-170.0); Percent Iron Saturation 4.4 %; Total Iron Binding Capacity 429.0 ug/dL (250.0-450.0)
[2025-04-13 12:28] LABS: Ferritin 8.0 ng/mL (8.0-252.0)
[2025-04-13 12:49] LABS: Glucose Urine UA >=1000 mg/dL (NEGATIVE)
[2025-04-13 13:02] LABS: Cast Seen? NONE SEEN #/LPF (NONE SEEN); Crystals Seen? None Seen #/HPF (None Seen)
[2025-04-14 04:07] LABS: Transferrin 335 mg/dL (192-364)
== END 2025-04-13 10:44 | disposition home or self-care (01) ==
LOC: MAMMO 10:46
PROVIDERS: PCP Nurse Practitioner; Visit Provider Nurse Practitioner
DX: Z12.31 Encounter for screening mammogram for malignant neoplasm of breast (principal); D50.0 Iron deficiency anemia secondary to blood loss (chronic); E11.22 Type 2 diabetes mellitus with diabetic chronic kidney disease; N18.31 Chronic kidney disease, stage 3a; Z79.4 Long term (current) use of insulin; I12.9 Hypertensive chronic kidney disease with stage 1 through stage 4 chronic kidney disease, or unspecified chronic kidney disease
CPT/HCPCS: 36415; 77063; 77067; 80053; 81001; 82728; 83540; 83550; 84466; 85025